=== PATIENT | male | born 1945 | race Caucasian/White ===

== ENCOUNTER 2020-08-28 15:01 | Emergency (ER) | payer MEDICARE, SELFPAY ==
[2020-08-28 15:01] VITALS: BP 121/73; PULSE 86; RESP 18; TEMP 36.7; O2SAT 97; BMI 25.4
--- NOTE | 2020-08-28 15:16 | EKG12_ITS ---
Test Reason : DIZZY Blood Pressure : / mmHG Vent. Rate : 084 BPM Atrial Rate : 084 BPM P-R Int : 164 ms QRS Dur : 092 ms QT Int : 370 ms P-R-T Axes : 046 005 030 degrees QTc Int : 437 ms Normal sinus rhythm Normal ECG Confirmed by FIDELIA ALFONSO, LISHA ([id number]), supervising editor trailer HI GRANT ([id number]) on 08/30/2020 12:45:21 PM Referred By: KATI Confirmed By:LISHA MISTRY MD
--- NOTE | 2020-08-28 15:17 | ED.DCSUM_ITS ---
- ER Visit Summary Date of Service: 08/28/20 Chief Complaint: Dizziness History of Present Illness: The patient is a 75 M who presents with dizziness that began today. Patient states he was cleaning around the house when he felt like he needed to sit down. Patient states he sat down and felt clammy and ti red. Patient also admits to some nausea. Patient states he felt lightheaded like he was going to pass out. Patient states nothing makes it worse and nothing makes it better. Patient denies any tinnitus. Patient denies any ear pain. Patient admits to a slight frontal headache. Patient also states he was started on new medicine yesterday for BPH. Patient states he took his first dose last night. Physical Examination: Vital signs are stable. Patient is afebrile. Patient is in no acute distress. Oral mucosa is pink and moist. Neck is supple. Trachea is midline. There is no JVD noted. Heart was regular rate and rhythm. Lungs are clear and equal bilaterally. Abdomen is soft. Bowel sounds are normal. There is no tenderness. There is no rebound or guarding noted. Skin is warm dry. Cranial nerves II through XII are intact. There are no focal motor or sensory deficits noted. [id number]-bk-[id number] was intact. Extremities are intact. There is no calf tenderness or edema. Test Results: EKG was obtained. On my interpretation, it showed a normal sinus rhythm with a rate of 84. CT interval, QRS interval, and QTc intervals were all normal. [place] was normal. There are no acute ST or T wave changes. Portable 1 view chest x-ray was obtained. On my interpretation, lung zimmerman are clear. There is normal cardiac silhouette. Bony thorax is normal. There is no acute process noted. Radiologist also interpreted the x-ray and agrees. CBC is within normal limits. Comprehensive metabolic profile was within normal limits. Troponin was normal. Emergency Department Course and Treatment: Orthostatic vital signs were obtained were within normal limits. Patient is feeling somewhat better on reevaluation. 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 Patient was also advised it could be related to the new BPH medicine he started last night. Patient was instructed to drink plenty of fluids. Patient was instructed to monitor for further dizziness after he continues taking his BPH medicine. Patient was instructed to follow-up with his primary care physician in 5 to 7 days. Patient understood and was agreeable with the plan. All questions were answered. Disposition: Discharge home Impression: 1. Dizziness This note was generated with [employer] dictation software. It may contain incorrect words, spelling, and punctuation that were not noted in review of the chart prior to signing ED Disposition - Plan for ED Patient: Disposition: Home or Assisted Living Diagnosis: Dizziness Instructions: ED Dizziness, Uncertain Cause Referrals: Daniel Naqvi III, MD [Primary Care Provider] - 5-7 Days
--- NOTE | 2020-08-28 15:21 | NURSING ---
NO OLD EKGS
--- NOTE | 2020-08-28 15:28 | RAD_ITS ---
STUDY: X-RAY CHEST REASON FOR EXAM: Male, 75 years old. Dizziness TECHNIQUE: Single AP portable view of the chest. COMPARISON: None. FINDINGS: EKG electrodes are seen. There is elevation of the right hemidiaphragm. Scattered calcified granulomas in the left lung base. There is no demonstrated pleural abnormality. Normal size heart. Normal mediastinum and jordan. Normal visualized pulmonary arteries. There is atherosclerotic tortuosity of the aortic arch and descending thoracic aorta. There are degenerative changes of the visualized thoracic spine. Healed right sided rib fractures. There is no demonstrated abnormality of the visualized soft tissue structures of the upper abdomen. RAD/Chest 1 View (Portable) IMPRESSION: There is elevation of the right hemidiaphragm. The lungs are clear. Electronically Signed: Dominick Morales MD at 15:40 EDT , Service support ,
[2020-08-28 15:35] LABS: Absolute Lymphocyte Count 2.09 X10^3/uL (0.83-4.51); Absolute Neutrophil Count 3.5 X10^3/uL (2.0-7.7); Basophil# 0.02 X10^3/uL; Basophil% 0.3 % (0-1); Eosinophil# 0.03 X10^3/uL; Eosinophils% 0.5 % (0-5); Hemoglobin 14.4 g/dL (13.0-16.5); Lymphocyte # 2.09 X10^3/ul (4.0); Lymphocyte % 34.7 % (19-41); Mean Corp Hgb Conc 33.5 g/dL (32-36); Mean Corpuscular Hgb 30.3 pg (27.0-32.0); Mean Corpuscular Volume 90.5 fL (80-94); Monocyte# 0.41 X10^3/uL; Monocyte% 6.8 % (0-10); NRBC Flagged by Analyzer 0 % (0-5); Neutrophil # 3.45 X10^3/uL (2.7-7.7); Neutrophil % 57.4 % (47-70); Platelet Count 153 K/mm3 (150-450); RBC Distribution Width CV 12.8 % (11.6-14.6); RBC Distribution Width SD 42.4 fl (35.1-43.9); Red Blood Count 4.75 M/mm3 (4.6-6.2)
[2020-08-28 15:40] VITALS: BP 112/70; BP 119/63; BP 126/71; PULSE 84; PULSE 88; PULSE 89
[2020-08-28 15:59] LABS: ALB/GLOB Ratio 1.5 RATIO (0.9-2.4); AST(SGOT) 22 U/L (15-37); Alanine Aminotransfer ALT/SGPT 32 U/L (16-61); Albumin, Serum 3.8 g/dL (3.2-5.0); Alkaline Phosphatase 145 U/L (45-117); Anion Gap 4 (5-15); BUN 15 mg/dL (7-18); BUN/Creat Ratio 17.5 RATIO (10-20); Calcium,Total 8.8 mg/dL (8.5-10.1); Chloride 104 mmol/L (98-107); Creatinine, Serum 0.86 mg/dL (0.70-1.30); EST Glomerular Filtration Rate 92 mL/min (>60); Est Glom Filt Rate - Afr Amer 112 mL/min (>60); Estimated Creatinine Clearance 73.07 ml/min; Globulin 2.5 g/dL (2.2-4.2); Glucose 121 mg/dL (74-106); Protein, Total 6.3 g/dL (6.4-8.2); Sodium Level 134 mmol/L (136-145)
[2020-08-28 16:38] VITALS: BP 120/3; PULSE 87; RESP 15; O2SAT 98
== END 2020-08-28 16:39 | disposition home or self-care (01) ==
PROVIDERS: Emergency Provider Emergency Medicine; PCP Family Medicine
DX: R42 Dizziness and giddiness (principal); R11.0 Nausea; R51.9 Headache, unspecified; R53.1 Weakness; N40.0 Benign prostatic hyperplasia without lower urinary tract symptoms; I10 Essential (primary) hypertension; F32.9 Major depressive disorder, single episode, unspecified; J45.909 Unspecified asthma, uncomplicated; Z87.19 Personal history of other diseases of the digestive system; Z79.899 Other long term (current) drug therapy
CPT/HCPCS: 71045; 80053; 84484; 85025; 93005; 99285; A4216

== ENCOUNTER → 2020-11-15 11:04 | Outpatient (CLI) | payer MEDICARE, SELFPAY ==
[2020-11-15 12:17] LABS: Absolute Lymphocyte Count 2.88 X10^3/uL (0.83-4.51); Absolute Neutrophil Count 4.3 X10^3/uL (2.0-7.7); Basophil# 0.02 X10^3/uL; Basophil% 0.3 % (0-1); Eosinophil# 0.06 X10^3/uL; Eosinophils% 0.8 % (0-5); Hematocrit 49.2 % (40-54); Hemoglobin 16.5 g/dL (13.0-16.5); Lymphocyte # 2.88 X10^3/ul (0.83-4.51); Mean Corp Hgb Conc 33.5 g/dL (32-36); Mean Corpuscular Hgb 30.7 pg (27.0-32.0); Mean Corpuscular Volume 91.6 fL (80-94); Mean Platelet Vol. 10.7 fl (6.2-12.0); Monocyte# 0.48 X10^3/uL; Monocyte% 6.2 % (0-10); NRBC Flagged by Analyzer 0 % (0-5); Neutrophil # 4.32 X10^3/uL (2.7-7.7); Neutrophil % 55.4 % (47-70); Platelet Count 144 K/mm3 (150-450); RBC Distribution Width CV 13.1 % (11.6-14.6); RBC Distribution Width SD 44.1 fl (35.1-43.9); Red Blood Count 5.37 M/mm3 (4.6-6.2); White Blood Count 7.8 K/mm3 (4.4-11.0)
[2020-11-15 12:36] LABS: International Normalized Ratio 1.1; Partial Thromboplast Time 25.7 Seconds (24.1-36.2); Prothrombin Time (Protime)PT. 13.4 SECONDS (11.7-14.9)
[2020-11-15 13:25] LABS: ALB/GLOB Ratio 1.5 RATIO (0.9-2.4); AST(SGOT) 36 U/L (15-37); Alanine Aminotransfer ALT/SGPT 34 U/L (16-61); Alkaline Phosphatase 117 U/L (45-117); Anion Gap 7 (5-15); BUN 15 mg/dL (7-18); Calcium,Total 8.7 mg/dL (8.5-10.1); Chloride 107 mmol/L (98-107); Creatinine, Serum 0.79 mg/dL (0.70-1.30); EST Glomerular Filtration Rate 101 mL/min (>60); Est Glom Filt Rate - Afr Amer 122 mL/min (>60); Globulin 2.7 g/dL (2.2-4.2); Glucose 82 mg/dL (74-106); Protein, Total 6.7 g/dL (6.4-8.2); Sodium Level 141 mmol/L (136-145)
== END ==
PROVIDERS: PCP Family Medicine; Referring Provider Physician Assistant; Visit Provider Physician Assistant
DX: R23.3 Spontaneous ecchymoses (principal); L82.1 Other seborrheic keratosis; D22.5 Melanocytic nevi of trunk; L81.4 Other melanin hyperpigmentation; Z08 Encounter for follow-up examination after completed treatment for malignant neoplasm; Z85.828 Personal history of other malignant neoplasm of skin; D18.01 Hemangioma of skin and subcutaneous tissue; L57.8 Other skin changes due to chronic exposure to nonionizing radiation; Z71.89 Other specified counseling; L57.0 Actinic keratosis
CPT/HCPCS: 36415; 80053; 85025; 85610; 85730

== ENCOUNTER 2021-06-14 11:55 | Emergency (ER) | payer MEDICARE, SELFPAY ==
[2021-06-14 11:56] VITALS: BP 148/81; PULSE 90; RESP 14; TEMP 36.4; O2SAT 97; BMI 27.1
--- NOTE | 2021-06-14 12:10 | RAD_ITS ---
STUDY: X-RAY CHEST REASON FOR EXAM: Male, 76 years old. covid 19 TECHNIQUE: AP COMPARISON: 08/28/2020 FINDINGS: Elevated right hemidiaphragm. No airspace consolidation. There is no demonstrated pleural abnormality. Normal size heart. Normal mediastinum and jordan. Normal visualized pulmonary arteries. There is atherosclerotic tortuosity of the aortic arch and descending thoracic aorta. Normal visualized thoracic spine. Normal visualized ribs, clavicles, and shoulders. There is no demonstrated abnormality of the visualized soft tissue structures of the upper abdomen. RAD/Chest 1 View (Portable) IMPRESSION: No airspace consolidation or pleural effusion. Electronically Signed: Tim Caba MD ([place]) at 13:00 EST , Service support ,
--- NOTE | 2021-06-14 12:11 | EDS_ITS ---
HPI History of Present Illness Chief Complaint: Cough Informant: patient and spouse/S.O. Narrative Narrative: 76-year-old male states that he is on about day 6 of COVID-19 symptoms. He tested +4 days ago via home test. He states that he had been doing okay some mild symptoms of cough shortness of breath and rhinorrhea. Today he had coughing fit which she could not get to calm down. He is vaccinated and boosters. No fevers. He has been eating and drinking. PFSH PFS Medical History GERD (gastroesophageal reflux disease) Hypertension Home Medications maprotiline 100 mg PO DAILY 04/19/13 [History Last Taken 04/18/13] polyethylene glycol 3350 17 g PO DAILY 04/19/13 [History Last Taken 04/19/13 07:00] lisinopril 5 mg PO DAILY 08/28/20 [History Last Taken Unknown] omeprazole 10 mg PO DAILY 08/28/20 [History Last Taken Unknown] sucralfate 1 gm PO TID 08/28/20 [History Last Taken Unknown] benzonatate 200 mg PO TID PRN #20 cap 06/14/21 [Rx Last Taken Unknown] Allergy/AdvReac Type Severity Reaction Status Date / Time No Known Allergies Allergy Verified 06/14/21 11:58 Social History Smoking Status: Former smoker ROS ROS ED Constitutional Constitutional ED: Denies chills, fever(s) or weight loss Eyes Eyes: Denies change in vision or diplopia ENT ENT ED: Reports rhinorrhea; Denies ear pain or sore throat Cardiovascular Cardiovascular: Denies chest pain, orthopnea, palpitations or racing heartbeat Respiratory/Chest Respiratory/Chest: Reports cough and dyspnea; Denies orthopnea Gastrointestinal Gastrointestinal: Denies abdominal pain, diarrhea, nausea or vomiting Genitourinary Genitourinary ED: Denies dysuria, hematuria or urinary frequency Musculoskeletal Musculoskeletal: Denies arthralgias or myalgias Integumentary Denies abscess or rash Neurologic Neurologic: Denies headache(s) or weakness Psychiatric Psychiatric: Denies anxiety, depression, suicidal ideation or suicidal thoughts Endocrine Endocrinology: Denies polydipsia, polyphagia or polyuria Allergic/Immunologic Allergic/Immunologic ED: Denies mouth swelling, tongue swelling or urticaria EXAM Physical Exam Const Vital Signs: 06/14/21 11:56 06/14/21 12:09 Temperature 97.6 F L Temperature Source Temporal Pulse Rate 90 Respiratory Rate 14 Respiratory Effort Normal Non-Labored Blood Pressure 148/81 H Blood Pressure Mean 103 Pulse Ox 97 Oxygen Delivery Method Room Air Positive well nourished and well developed General Appearance ED: well developed HEENT Reports normocephalic, head/scalp atraumatic, TM's clear and moist mucous membranes Negative for trauma Tympanic Membrane ED: Yes TM's clear Eyes PERRL and EOMs intact bilaterally Neck no lymphadenopathy, supple and no JVD Resp normal respiratory effort and clear to auscultation bilaterally Cardio regular rate, regular rhythm and no murmurs GI normal to inspection, nondistended, normoactive bowel sounds and non-tender Palpation: soft Back/Spine no CVA tenderness and normal ROM Extremity normal to inspection General Extremety ED: Negative for edema General Extremity: Negative for edema Neuro oriented x3 and CN's II-XII intact bilaterally Sensorium / Orientation: alert Motor Exam: strength 5/5 throughout Psych mental status grossly normal Mood & Affect: Negative for depressed or tearful Skin no rashes or lesions noted and no wounds MDM MDM MDM Narrative Medical decision making narrative: COVID test is positive. My interpretation of the chest x-ray is no acute process. He does qualify for monoclonal antibody treatment and I can put the referral in. He is not requiring any supplemental oxygen. He can write for [employer]. Return if worsening or concerns Radiography Diagnostic Testing: Clinical Impression(s) from Imaging Studies Chest X-Ray 06/14/21 12:10 IMPRESSION: No airspace consolidation or pleural effusion. Electronically Signed: Tim Caba MD ([place]) at 13:00 EST , Service support , Discharge Plan Triage Chief Complaint: Cough ED Provider: Emeka Fleming Dx/Rx/DC Orders Clinical Impression: COVID-19, Cough Instructions: Coronavirus Disease 2019 (COVID-19): Caring for Yourself or Others Prescriptions: New benzonatate 200 mg capsule 200 mg PO TID PRN (Reason: cough) Qty: 20 RF: 0 No Action polyethylene glycol 3350 17 GM powder in packet 17 g PO DAILY RF: 0 maprotiline 50 MG tablet 100 mg PO DAILY RF: 0 omeprazole 10 MG capsule 10 mg PO DAILY RF: 0 lisinopril 5 MG tablet 5 mg PO DAILY RF: 0 sucralfate 1 GM tablet 1 gm PO TID RF: 0 Disposition Disposition: Home, Self Care
== END 2021-06-14 13:07 | disposition home or self-care (01) ==
LOC: ED 13:05
PROVIDERS: Emergency Provider Emergency Medicine; PCP Family Medicine; Visit Provider Emergency Medicine
DX: U07.1 COVID-19 (principal); Z87.891 Personal history of nicotine dependence
CPT/HCPCS: 71045; 87426; 99282

== ENCOUNTER 2021-06-16 18:19 | Outpatient (CLI) | payer MEDICARE, SELFPAY ==
[2021-06-16] MEDS: 0.9% Saline Lock 10 ML Syringe IV (18:23)
[2021-06-16 18:24] VITALS: BP 137/82; PULSE 100; RESP 18; TEMP 37.6; O2SAT 96; BMI 27.0
[2021-06-16 18:56] VITALS: BP 124/68; PULSE 91; RESP 16; TEMP 37.7; O2SAT 95
[2021-06-16 19:47] VITALS: BP 148/78; PULSE 89; RESP 16; TEMP 36.9; O2SAT 97
== END 2021-06-16 23:59 | disposition home or self-care (01) ==
LOC: MS3OUT 18:19 → MS3 18:20
PROVIDERS: PCP Family Medicine; Referring Provider Emergency Medicine; Visit Provider Emergency Medicine
DX: Z23 Encounter for immunization (principal); U07.1 COVID-19
CPT/HCPCS: J7050; M0245; Q0245; A4216

== ENCOUNTER → 2022-05-11 | Outpatient (CLI) | payer MEDICARE, SELFPAY ==
[2022-05-11 09:57] LABS: Erythrocyte Sedimentation Rate 6 mm/hr (0-20)
== END | disposition home or self-care (01) ==
PROVIDERS: PCP Family Medicine; Visit Provider Nurse Practitioner Acute Care
DX: R05.1 Acute cough (principal); R50.9 Fever, unspecified
CPT/HCPCS: 85652

== ENCOUNTER → 2023-03-18 | Outpatient (CLI) | payer MEDICARE, SELFPAY ==
[2023-03-18 16:06] LABS: Absolute Neutrophil Count 4.3 X10^3/uL (2.0-7.7); Basophil# 0.03 X10^3/uL; Basophil% 0.4 % (0-1); Eosinophil# 0.05 X10^3/uL; Eosinophils% 0.6 % (0-5); Hematocrit 48.3 % (40-54); Hemoglobin 16.3 g/dL (13.0-16.5); Lymphocyte % 40.7 % (19-41); Mean Corp Hgb Conc 33.7 g/dL (32-36); Mean Corpuscular Hgb 30.4 pg (27.0-32.0); Mean Corpuscular Volume 90.1 fL (80-94); Mean Platelet Vol. 8.9 fl (6.2-12.0); Monocyte# 0.53 X10^3/uL; Monocyte% 6.3 % (0-10); NRBC Flagged by Analyzer 0 % (0-5); Neutrophil # 4.32 X10^3/uL (2.7-7.7); Neutrophil % 51.6 % (47-70); Platelet Count 159 K/mm3 (150-450); RBC Distribution Width CV 13.2 % (11.6-14.6); Red Blood Count 5.36 M/mm3 (4.6-6.2); White Blood Count 8.4 K/mm3 (4.4-11.0)
[2023-03-18 16:53] LABS: ALB/GLOB Ratio 1.2 RATIO (0.9-2.4); AST(SGOT) 21 U/L (15-37); Alanine Aminotransfer ALT/SGPT 32 U/L (16-61); Albumin, Serum 3.8 g/dL (3.2-5.0); Alkaline Phosphatase 111 U/L (45-117); Anion Gap 6 (5-15); BUN 18 mg/dL (7-18); BUN/Creat Ratio 19.2 RATIO (10-20); Calcium,Total 8.8 mg/dL (8.5-10.1); Chloride 111 mmol/L (98-107); Creatinine, Serum 0.94 mg/dL (0.70-1.30); EST Glomerular Filtration Rate 82 mL/min (>60); Est Glom Filt Rate - Afr Amer 100 mL/min (>60); Globulin 3.2 g/dL (2.2-4.2); Glucose 102 mg/dL (74-106); Potassium 4.2 mmol/L (3.5-5.1); Sodium Level 141 mmol/L (136-145); Thyroid Stim Hormone (TSH) 0.99 uIU/mL (0.358-3.74)
[2023-03-19 08:01] LABS: Hepatitis C Antibody Non-Reactive (Nonreactive); Vitamin B12 466 pg/mL (211-911); Vitamin D,25 Hydroxy 21.7 ng/mL
== END | disposition home or self-care (01) ==
LOC: POLAB3 15:46
PROVIDERS: PCP Family Medicine; Visit Provider Family Medicine Geriatric Medicine
DX: I10 Essential (primary) hypertension (principal); Z13.89 Encounter for screening for other disorder; E55.9 Vitamin D deficiency, unspecified
CPT/HCPCS: 36415; 80053; 82306; 82607; 82746; 84443; 85025; 86803

== ENCOUNTER → 2023-04-05 | Outpatient (CLI) | payer MEDICARE, SELFPAY ==
--- NOTE | 2023-04-05 08:44 | AAAS_ITS ---
Reason For Study: AAA Screening Aorta Measurements Aorta Doppler Measurements Proximal aorta measures2.08 x 2.17cm. in cross- Peak systolic flow velocities within the proximal sectional axis. aorta measure 83.2 cm/sec. Proximal aorta measures2.01cm. in longitudinal Peak systolic flow velocities within the mid aorta axis. measure 85.0 cm/sec. Mid aorta measures2.02 x 2.12cm. in cross- Peak systolic flow velocities within the distal sectional axis. aorta measure 53.7 cm/sec. Mid aorta measures2.00cm. in longitudinal axis. Distal aorta measures1.83 x 1.79cm. in cross- sectional axis. Distal aorta measures1.83cm. in longitudinal axis. Left Iliac Artery Left iliac artery measures 1.38 x 1.35 cm. in the cross-sectional axis. Left iliac artery measures 1.34 cm. in the longitudinal axis. Peak systolic velocity in the left iliac artery measures 60.4 cm/sec. Right Iliac Artery Right iliac artery measures 1.36 x 1.40 cm. in the cross-sectional axis. Right iliac artery measures 1.31 cm. in the longitudinal axis. Peak systolic velocity in the right iliac artery measures 62.9 cm/sec. VL/AAA Screening Interpretation Summary Maximal aortic diameter approximately at 2.08 x 2.17 cm in diameter which is no rmal. Left common iliac artery measures 1.38 x 1.35 cm in diameter, correlates with m ild ectasia Right common iliac artery measures 1.36 x 1.4 cm in diameter, correlates with m ild ectasia Ordering Physician: Tre García Chi Referring Physician: Tre García Chi Performed By: Yung Cox RVEnedina
== END | disposition home or self-care (01) ==
LOC: CVS 08:44
PROVIDERS: PCP Family Medicine; Referring Provider Family Medicine Geriatric Medicine; Visit Provider Family Medicine Geriatric Medicine
DX: Z00.00 Encounter for general adult medical examination without abnormal findings (principal)
CPT/HCPCS: 76706

== ENCOUNTER → 2023-04-08 | Outpatient (CLI) | payer MEDICARE, SELFPAY | END | disposition home or self-care (01) | PROVIDERS: PCP Family Medicine Geriatric Medicine; Referring Provider Family Medicine Geriatric Medicine; Visit Provider Family Medicine Geriatric Medicine | DX: R68.83 Chills (without fever) (principal) | CPT/HCPCS: 87635; 87804; 87807; C9803 ==

== ENCOUNTER → 2023-06-02 | Outpatient (CLI) | payer MEDICARE, SELFPAY ==
[2023-06-02 12:57] LABS: BNP,B-Type NATRIURETIC PEPTIDE 40.9 pg/mL (0-100)
--- OUTSIDE RECORDS SUMMARY | 2023-06-02 13:04 | XMS RPT_ITS | CCD ---
Author Name Unknown Address [address] [place] [address] Organization [facility] Care Team Providers Care Switchboard Wirer Name Role Phone Binu Bellamy MD Primary Care Provider BINU BELLAMY Primary Care Unavailable BINU BELLAMY Primary Care Unavailable BINU BELLAMY Primary Care Unavailable EFREN PLUMMER Referring Unavailable BINU BELLAMY Primary Care Unavailable JESSICA BARRAZA Attending Unavailable BINU BELLAMY Primary Care Unavailable ELDERBINU BRASHER Attending Unavailable JANAECKBINU Primary Care Unavailable SRIBECKY Attending Unavailable JANAECKBINU Primary Care Unavailable BECKY FIERRO Attending Unavailable BINU BELLAMY Primary Care Unavailable SRIBECKY Referring Unavailable ELDERBROCKBINU Primary Care Unavailable SRIBECKY Referring Unavailable ELDERBROCK, BINU Olmedo Primary Care Unavailable ELDERBROCKBINU Referring Unavailable ELDERBROCK, BINU Olmedo Primary Care Unavailable ELDERBROCKBINU Primary Care Unavailable CUCO MATHIS Referring Unavailable ELDERBROCK, BINU Olmedo Primary Care Unavailable ELDERBROCKBINU Attending Unavailable ELDERBROCKBINU Primary Care Unavailable ELDERBROCKBINU Referring Unavailable ELDERBROCK, BINU Shara Primary Care Unavailable ELDERBROCK, BINU Olmedo Referring Unavailable ELDERBROCK, BINU Shara Primary Care Unavailable ELDERBROCKBINU Attending Unavailable BINU BELLAMY Primary Care Unavailable BECKY FIERRO Attending Unavailable BINU BELLAMY Primary Care Unavailable SRIBECKY Referring Unavailable ELDERBROCKBINU Primary Care Unavailable SRIBECKY Referring Unavailable ELDERBROCK, BINU Olmedo Primary Care Unavailable EFREN PLUMMER Referring Unavailable ELDERTEDDYCKBINU Primary Care Unavailable JESSICA BARRAZA Attending Unavailable BINU BELLAMY Primary Care Unavailable JESSICA BARRAZA Referring Unavailable BINU BELLAMY Primary Care Unavailable GENIE PONCE Attending Unavailable BINU BELLAMY Primary Care Unavailable BINU BELLAMY Referring Unavailable BINU BELLAMY Primary Care Unavailable BINU BELLAMY Referring Unavailable Binu Bellamy MD Primary Care Provider [phone] Allergies Allergy Classification Reported Allergen(s) Allergy Type Date of Onset Reaction(s) Facility (20 sources) environmental [Other] Propensity to adverse reactions 5 Intolerance [facility] (1 source) OTHER; Translations: [OTHER] Propensity to adverse reactions (disorder) 5 [facility] Repository Medications Current Medications Medication Drug Class(es) Dates Sig (Normalized) Sig (Original) amoxicillin 875 mg / clavulanate 125 mg oral tablet (2 sources) Penicillin-class Antibacterial Start: 02-15-2022 End: 02-20-2022 take 1 tablet by mouth twice daily amoxicillin-clav ulanic acid (AUGMENTIN) 875-125 mg per tablet Take 1 tablet by mouth twice daily for 5 days. 10 tablet 0 02/15/2022 02/20/2022 Active Completed/Discontinued Medications Medication Drug Class(es) Dates Sig (Normalized) Sig (Original) [id number] 200 actuat albuterol 0.09 mg/actuat metered dose inhaler (20 sources) beta2-Adrenergic Agonist Start: 09-18-2022 take 2 puff(s) by inhalation every four hours as needed for wheezing albuterol HFA (PROVENTIL HFA, VENTOLIN HFA) 90 mcg/actuation inhaler Inhale 2 Puffs as instructed every 4 hours as needed for wheezing/shortnes s of breath. 3 Each 3 09/18/2022 Active Problems Active Problems Problem Classification Problem Date Documented Date Episodic/Chronic Adjustment disorders (20 sources) Adjustment disorder with depressed mood; Translations: [Adjustment disorder with depressed mood] Onset: 08-28-2008 08-28-2008 Chronic Anxiety disorders (20 sources) Anxiety; Translations: [Anxiety disorder, unspecified] Onset: 01-15-2015 01-15-2015 Chronic Asthma (20 sources) Cough variant asthma; Translations: [Cough variant asthma] Onset: 05-13-2022 Chronic Chronic obstructive pulmonary disease and bronchiectasis (1 source) Bronchitis; Translations: [Bronchitis, not specified as acute or chronic] Episodic Coagulation and hemorrhagic disorders (4 sources) Platelet disorder; 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] Onset: 09-08-2022 Chronic Esophageal disorders (1 source) Gastroesophageal reflux disease; Translations: [Gastro-esophageal reflux disease without esophagitis] 01-21-2023 Chronic Essential hypertension (20 sources) Benign essential hypertension; Translations: [Essential (primary) hypertension] Onset: 01-04-2023 03-05-2021 Chronic Hyperplasia of prostate (20 sources) Benign prostatic hyperplasia; Translations: [Benign prostatic hyperplasia with lower urinary tract symptoms] Onset: 07-05-2007 06-25-2015 Chronic Immunizations and screening for infectious disease (1 source) Patient encounter status; Translations: [Encounter for screening for other viral diseases] Episodic Malaise and fatigue (2 sources) Fatigue; Translations: [Other fatigue] Episodic Mood disorders (20 sources) Recurrent major depression in full remission; Translations: [Major depressive disorder, recurrent, in full remission] Onset: 06-25-2021 Chronic Other congenital anomalies (2 sources) Congenital eventration of diaphragm; 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 Other connective tissue disease (1 source) Musculoskeletal pain; Translations: [Myalgia, other site] Episodic Other infections; including parasitic (3 sources) Personal history of other infectious and parasitic diseases; Translations: [History of COVID-19] Episodic Other lower respiratory disease (3 sources) Cough; Translations: [Acute cough] Episodic Other lower respiratory disease (12 sources) Dyspnea; Translations: [Shortness of breath] Episodic Other lower respiratory disease (1 source) Rib pain; Translations: [Pleurodynia] Episodic Other lower respiratory disease (1 source) Dyspnea on exertion; Translations: [Other forms of dyspnea] 03-01-2023 Episodic Other lower respiratory disease (1 source) Other forms of dyspnea; Translations: [PERSON (dyspnea on exertion)] Onset: 03-01-2023 Episodic Other upper respiratory disease (1 source) Chronic rhinitis; Translations: [Unspecified sinusitis (chronic)] Chronic Other upper respiratory infections (1 source) Acute upper respiratory infection; Translations: [Acute upper respiratory infection, unspecified] Episodic Residual codes; unclassified (1 source) Other specified personal risk factors, not elsewhere classified; Translations: [Other specified personal history presenting hazards to health] Episodic Spondylosis; intervertebral disc disorders; other back problems (20 sources) Lumbar discogenic pain; Translations: [Other intervertebral disc displacement, lumbar region] Onset: 06-05-2010 06-05-2010 Chronic Unclassified (1 source) Acute cough; Translations: [Acute cough] Onset: 05-11-2022 Viral infection (2 sources) Viral disease; Translations: [Viral infection, unspecified] Episodic Past or Other Problems Problem Classification Problem Date Documented Da te Episodic/Chronic Allergic reactions (20 sources) Eczema; Translations: [Dermatitis, unspecified] Onset: 06-09-2011 06-09-2011 Episodic Diabetes mellitus without complication (2 sources) Increased glucose level; Translations: [Other abnormal glucose] Onset: 09-08-2022 Episodic Fever of unknown origin (1 source) Fever, unspecified; Translations: [Fever, unspecified fever cause] Onset: 05-11-2022 Episodic Hemorrhoids (20 sources) Internal hemorrhoids; Translations: [Other hemorrhoids] Onset: 01-11-2018 01-11-2018 Episodic Other lower respiratory disease (1 source) Shortness of breath; Translations: [SOB (shortness of breath)] Onset: 12-21-2022 Episodic Other non-epithelial cancer of skin (20 sources) History of malignant neoplasm of skin; Translations: [Personal history of other malignant neoplasm of skin] Onset: 07-16-2009 07-16-2009 Episodic Other upper respiratory disease (8 sources) Vocal cord dysfunction; Translations: [Other diseases of vocal cords] Onset: 2016 2016 Episodic Results Test Name Value Interpretation Reference Range Facil ity Vital Signs Date Time Vital Sign Value Performing Clinician Faci lity 04-19-2023 10:57-0500 Body height 170.6 cm Pulm Wstr Work Phone: [facility] 03-09-2023 09:35-0400 Body weight 88.95 kg Binu Bellamy MD Work Phone: [facility] 03-09-2023 09:35-0400 Diastolic blood pressure 78 mm[Hg] Binu Bellamy MD Work Phone: [facility] 03-09-2023 09:35-0400 Heart rate 88 /min Binu Bellamy MD Work Phone: [facility] 03-09-2023 09:35-0400 Respiratory rate 16 /min Binu Bellamy MD Work Phone: [facility] 03-09-2023 09:35-0400 Systolic blood pressure 120 mm[Hg] Binu Bellamy MD Work Phone: [facility] 01-21-2023 09:19-0400 Body height 175.3 cm Becky Sri PA-C Work Phone: [facility] 01-21-2023 09:190400 Body weight 89.18 kg Becky Sri PA-C Work Phone: [facility] 01-21-2023 09:19-0400 Diastolic blood pressure 70 mm[Hg] Becky Sri PA-C Work Phone: [facility] 01-21-2023 09:19-0400 Heart rate 90 /min Ebcky Sri PA-C Work Phone: [facility] 01-21-2023 09:19-0400 Respiratory rate 14 /min Becky Sri PA-C Work Phone: [facility] 01-21-2023 09:19-0400 SaO2% (BldA) [Mass fraction] 94 % Becky Sri PA-C Work Phone: [facility] 01-21-2023 09:19-0400 Systolic blood pressure 116 mm[Hg] Becky Sri PA-C Work Phone: [facility] 12-10-2022 08:43-0400 Body weight 88.91 kg Becky Sri PA-C Work Phone: [facility] 09-08-2022 09:14-0400 Body weight 87.09 kg Binu Bellamy MD Work Phone: [facility] 09-08-2022 09:14-0400 Diastolic blood pressure 78 mm[Hg] Binu Bellamy MD Work Phone: [facility] 09-08-2022 09:14-0400 Heart rate 68 /min Binu Bellamy MD Work Phone: [facility] 09-08-2022 09:14-0400 Respiratory rate 16 /min Binu Bellamy MD Work Phone: [facility] 09-08-2022 09:14-0400 Systolic blood pressure 120 mm[Hg] Binu Bellamy MD Work Phone: [facility] 08-19-2022 09:02-0400 Body temperature 96.91 [degF] Cuco Mathis [employer] BU[employer]ER.GLOBAL SECURITY ARCHITECT Work Phone: [facility] 08-19-2022 09:02-0400 Body weight 88.91 kg Cuco Mathis [employer] BUYER.GLOBAL SECURITY ARCHITECT Work Phone: [facility] 08-19-2022 09:02-0400 Diastolic blood pressure 76 mm[Hg] Cuco Mathis [employer] BUYER.GLOBAL SECURITY ARCHITECT Work Phone: [facility] 08-19-2022 09:02-0400 Heart rate 118 /min Cuco Mathis [employer] BUYER.GLOBAL SECURITY ARCHITECT Work Phone: [facility] 08-19-2022 09:02-0400 Respiratory rate 18 /min Cuco Mathis [employer] BUYER.GLOBAL SECURITY ARCHITECT Work Phone: [facility] 08-19-2022 09:02-0400 SaO2% (BldA) [Mass fraction] 94 % Cuco Mathis APRN.GLOBAL SECURITY ARCHITECT Work Phone: [facility] 08-19-2022 09:02-0400 Systolic blood pressure 124 mm[Hg] Cuco Mathis APRN.GLOBAL SECURITY ARCHITECT Work Phone: [facility] 07-09-2022 10:16-0500 Body weight 89.36 kg Genie Ponce MD Work Phone: [facility] 07-09-2022 10:16-0500 Diastolic blood pressure 65 mm[Hg] Genie Ponce MD Work Phone: [facility] 07-09-2022 10:16-0500 Heart rate 92 /min Genie Ponce MD Work Phone: [facility] 07-09-2022 10:16-0500 SaO2% (BldA) [Mass fraction] 94 % Genie Ponce MD Work Phone: [facility] 07-09-2022 10:16-0500 Systolic blood pressure 126 mm[Hg] Genie Ponce MD Work Phone: [facility] 05-13-2022 08:47-0500 Body weight 88.45 kg Jessica Barraza [employer] BUYER.GLOBAL SECURITY ARCHITECT Work Phone: [facility] 05-13-2022 08:47-0500 Diastolic blood pressure 70 mm[Hg] Jessica Alvarezhof [employer] BUYER.GLOBAL SECURITY ARCHITECT Work Phone: [facility] 05-13-2022 08:47-0500 Heart rate 98 /min Jessica Alvarezhof [employer] BUYER.GLOBAL SECURITY ARCHITECT Work Phone: [facility] 05-13-2022 08:47-0500 Respiratory rate 16 /min Jessica Alvarezhof [employer] BUYER.GLOBAL SECURITY ARCHITECT Work Phone: [facility] 05-13-2022 08:47-0500 SaO2% (BldA) [Mass fraction] 97 % Jessica Alvarezhof [employer] BUYER.GLOBAL SECURITY ARCHITECT Work Phone: [facility] 05-13-2022 08:47-0500 Systolic blood pressure 114 mm[Hg] Jessica Alvarezhof [employer] BUYER.GLOBAL SECURITY ARCHITECT Work Phone: [facility] 05-10-2022 09:30-0500 Body temperature 98.29 [degF] Efren Plummer [employer] BUYER.GLOBAL SECURITY ARCHITECT Work Phone: [facility] 05-10-2022 09:30-0500 Body weight 88.45 kg Efren Plummer [employer] BUYER.GLOBAL SECURITY ARCHITECT Work Phone: [facility] 05-10-2022 09:30-0500 Diastolic blood pressure 78 mm[Hg] Efren Plummer [employer] BUYER.GLOBAL SECURITY ARCHITECT Work Phone: [facility] 05-10-2022 09:30-0500 Heart rate 108 /min Efren Plummer [employer] BUYER.GLOBAL SECURITY ARCHITECT Work Phone: [facility] 05-10-2022 09:30-0500 Respiratory rate 18 /min Efren Plummer [employer] BUYER.GLOBAL SECURITY ARCHITECT Work Phone: [facility] 05-10-2022 09:30-0500 SaO2% (BldA) [Mass fraction] 95 % Efren Plummer [employer] BUYER.GLOBAL SECURITY ARCHITECT Work Phone: [facility] 05-10-2022 09:30-0500 Systolic blood pressure 124 mm[Hg] Efren Plummer [employer] BUYER.GLOBAL SECURITY ARCHITECT Work Phone: [facility] 05-03-2022 12:22-0500 Body temperature 97.2 [degF] Camila James [employer] BUYER.GLOBAL SECURITY ARCHITECT Work Phone: [facility] 05-03-2022 12:22-0500 Body weight 79.56 kg Camila Comer [employer] BUYER.GLOBAL SECURITY ARCHITECT Work Phone: [facility] 05-03-2022 12:22-0500 Diastolic blood pressure 76 mm[Hg] Camila Comer [employer] BUYER.GLOBAL SECURITY ARCHITECT Work Phone: [facility] 05-03-2022 12:22-0500 Heart rate 88 /min Camila Comer [employer] BUYER.GLOBAL SECURITY ARCHITECT Work Phone: [facility] 05-03-2022 12:22-0500 Respiratory rate 16 /min Camila oCmer [employer] WAY BUYER.GLOBAL SECURITY ARCHITECT Work Phone: [facility] 05-03-2022 12:22-0500 SaO2% (BldA) [Mass fraction] 95 % Camila Comer [employer] BUYER.GLOBAL SECURITY ARCHITECT Work Phone: [facility] 05-03-2022 12:22-0500 Systolic blood pressure 130 mm[Hg] Camila Comer [employer] BUYER.GLOBAL SECURITY ARCHITECT Work Phone: [facility] 04-10-2022 08:50-0500 Body weight 88 kg Becky Fierro PA-C Work Phone: [facility] 03-11-2022 13:14-0400 Body weight 88.36 kg Binu Bellamy MD Work Phone: [facility] 03-11-2022 13:14-0400 Diastolic blood pressure 72 mm[Hg] Binu Bellamy MD Work Phone: [facility] 03-11-2022 13:14-0400 Heart rate 80 /min Binu Bellamy MD Work Phone: [facility] 03-11-2022 13:14-0400 Respiratory rate 16 /min Binu Bellamy MD Work Phone: [facility] 03-11-2022 13:14-0400 SaO2% (BldA) [Mass fraction] 95 % Binu Bellamy MD Work Phone: [facility] 03-11-2022 13:14-0400 Systolic blood pressure 118 mm[Hg] Binu Bellamy MD Work Phone: [facility] 03-11-2022 09:11-0400 Body height 172.5 cm Respiratory Wstr Work Phone: [facility] 03-11-2022 09:11-0400 Body weight 88 kg Respiratory Wstr Work Phone: [facility] 02-27-2022 13:20-0400 Body weight 87.09 kg Genie Ponce MD Work Phone: [facility] 02-27-2022 13:20-0400 Diastolic blood pressure 78 mm[Hg] Genie Ponce MD Work Phone: [facility] 02-27-2022 13:20-0400 Heart rate 83 /min Genie Ponce MD Work Phone: [facility] 02-27-2022 13:20-0400 Respiratory rate 16 /min Genie Ponce MD Work Phone: [facility] 02-27-2022 13:20-0400 SaO2% (BldA) [Mass fraction] 98 % Genie Ponce MD Work Phone: [facility] 02-27-2022 13:20-0400 Systolic blood pressure 138 mm[Hg] Genie Ponce MD Work Phone: [facility] 02-23-2022 11:31-0400 Body weight 87.09 kg Jessica Alvarezlucian [employer] WAY BUYER.GLOBAL SECURITY ARCHITECT Work Phone: [facility] 02-23-2022 11:31-0400 Diastolic blood pressure 70 mm[Hg] Jessica Antoniohof [employer] BUYER.GLOBAL SECURITY ARCHITECT Work Phone: [facility] 02-23-2022 11:31-0400 Heart rate 94 /min Jessica Alvarezhof [employer] BUYER.GLOBAL SECURITY ARCHITECT Work Phone: [facility] 02-23-2022 11:31-0400 Respiratory rate 16 /min Jessica Alvarezhof [employer] WAY BUYER.GLOBAL SECURITY ARCHITECT Work Phone: [facility] 02-23-2022 11:31-0400 SaO2% (BldA) [Mass fraction] 90 % Jessica Alvarezhof [employer] BUYER.GLOBAL SECURITY ARCHITECT Work Phone: [facility] 02-23-2022 11:31-0400 Systolic blood pressure 110 mm[Hg] Jessica Antoniohof [employer] WAY BUYER.GLOBAL SECURITY ARCHITECT Work Phone: [facility] 02-15-2022 11:10-0400 Body temperature 97.2 [degF] Camila Comer [employer] WAY BUYER.GLOBAL SECURITY ARCHITECT Work Phone: [facility] 02-15-2022 11:10-0400 Body weight 87.09 kg Camila Comer APRN.GLOBAL SECURITY ARCHITECT Work Phone: [facility] 02-15-2022 11:10-0400 Diastolic blood pressure 68 mm[Hg] Camila Comer [employer] WAY BUYER.GLOBAL SECURITY ARCHITECT Work Phone: [facility] 02-15-2022 11:10-0400 Heart rate 95 /min Camila Comer [employer] WAY BUYER.GLOBAL SECURITY ARCHITECT Work Phone: [facility] 02-15-2022 11:10-0400 Respiratory rate 18 /min Camila Comer [employer] WAY BUYER.GLOBAL SECURITY ARCHITECT Work Phone: [facility] 02-15-2022 11:10-0400 SaO2% (BldA) [Mass fraction] 95 % Camila Comer [employer] WAY BUYER.GLOBAL SECURITY ARCHITECT Work Phone: [facility] 02-15-2022 11:10-0400 Systolic blood pressure 106 mm[Hg] Camila Comer [employer] WAY BUYER.GLOBAL SECURITY ARCHITECT Work Phone: [facility] 02-06-2022 09:11-0400 Body weight 88.45 kg Jessicapatel Alvarezhof RIGHT [employer] WAY BUYER.GLOBAL SECURITY ARCHITECT Work Phone: [facility] 02-06-2022 09:11-0400 Diastolic blood pressure 68 mm[Hg] Jessica Tannhof RIGHT [employer] WAY BUYER.GLOBAL SECURITY ARCHITECT Work Phone: [facility] 02-06-2022 09:11-0400 Heart rate 87 /min Jessica Tannhof [employer] WAY BUYER.GLOBAL SECURITY ARCHITECT Work Phone: [facility] 02-06-2022 09:11-0400 Respiratory rate 16 /min Jessica Tannhof [employer] WAY BUYER.GLOBAL SECURITY ARCHITECT Work Phone: [facility] 02-06-2022 09:11-0400 SaO2% (BldA) [Mass fraction] 96 % Jessica Tannhof [employer] WAY BUYER.GLOBAL SECURITY ARCHITECT Work Phone: [facility] 02-06-2022 09:11-0400 Systolic blood pressure 116 mm[Hg] Jessica Tannhof [employer] WAY BUYER.GLOBAL SECURITY ARCHITECT Work Phone: [facility] 12-03-2021 10:25-0400 Body weight 88.45 kg Berkley Ildefonsoguru RIGHT [employer] WAY BUYER.GLOBAL SECURITY ARCHITECT Work Phone: [facility] 12-03-2021 10:25-0400 Diastolic blood pressure 58 mm[Hg] Berkley Rajguru [employer] WAY BUYER.GLOBAL SECURITY ARCHITECT Work Phone: [facility] 12-03-2021 10:25-0400 Systolic blood pressure 122 mm[Hg] Berkley Rajguru [employer] WAY BUYER.GLOBAL SECURITY ARCHITECT Work Phone: [facility] 09-03-2021 12:49-0400 Body weight 86.73 kg Binu Blelamy MD Work Phone: [facility] 09-03-2021 12:49-0400 Diastolic blood pressure 72 mm[Hg] Binu Bellamy MD Work Phone: [facility] 09-03-2021 12:49-0400 Heart rate 68 /min Binu Bellamy MD Work Phone: [facility] 09-03-2021 12:49-0400 Respiratory rate 14 /min Binu Bellamy MD Work Phone: [facility] 09-03-2021 12:49-0400 Systolic blood pressure 120 mm[Hg] Binu Bellamy MD Work Phone: [facility] 08-27-2021 10:53-0400 Body weight 88 kg Berkley Rajguru RIGHT [employer] WAY BUYER.GLOBAL SECURITY ARCHITECT Work Phone: [facility] 08-27-2021 10:53-0400 Diastolic blood pressure 66 mm[Hg] Berkley Rajguru [employer] WAY BUYER.GLOBAL SECURITY ARCHITECT Work Phone: [facility] 08-27-2021 10:53-0400 Heart rate 68 /min Berkley Rajguru [employer] WAY BUYER.GLOBAL SECURITY ARCHITECT Work Phone: [facility] 08-27-2021 10:53-0400 Systolic blood pressure 122 mm[Hg] Berkley Rajguru RIGHT [employer] WAY BUYER.GLOBAL SECURITY ARCHITECT Work Phone: [facility] Encounters Encounter Date Encounter Type Care Provider Facility Start: 05-03-[address] [employer] BUYER.GLOBAL SECURITY ARCHITECT Work Phone: [facility] Procedures Date Procedure Procedure Detail Performing Clinician Start: 04-19-2023 Spmtry w/vc expirato ry lindsay w/wo mxml vol vntj Becky Fierro PA-C Work Phone: Start: 04-19-2023 Unlisted pulmonary service/procedure Becky Fierro PA-C Work Phone: Start: 03-01-2023 Myocardial spect mul tiple studies Binu Bellamy MD Work Phone: Start: 12-10-2022 Nitric oxide gas determination Becky Fierro PA-C Work Phone: Start: 08-19-2022 Radex ribs uni w/pos teroant ch minimum 3 views Cuco Mathis [employer] BUYER.GLOBAL SECURITY ARCHITECT Work Phone: Start: 03-11-2022 Nitric oxide gas determination Genie Ponce MD Work Phone: Start: 03-11-2022 Brncdilat rspse spmt ry pre&post-brncdilat admn Genie Ponce MD Work Phone: Plan of Treatment Date Care Activity Detail Author Start: 03-19-2033 Urine microalbumin profile DTaP,Tdap,Td Vaccine (5 - Td or Tdap) [facility] Start: 10-01-2026 Urine microalbumin profile [facility] Start: 09-08-2025 DIABETES SCREEN DIABETES SCREEN [facility] Start: 09-08-2025 Diabetes Screening Diabetes Screenin g [facility] Start: 05-11-2025 DIABETES SCREEN DIABETES SCREEN [facility] Start: 02-23-2025 DIABETES SCREEN DIABETES SCREEN [facility] Start: 09-04-2024 DIABETES SCREEN DIABETES SCREEN [facility] Start: 04-28-2024 DIABETES SCREEN DIABETES SCREEN [facility] Start: 04-19-2024 BP Controlled (<130/80) BP Con trolled (<130/80) [facility] Start: 03-09-2024 Annual PCP Team Pie Maker santy Disease Visit Annual PCP Team Chronic Disease Visit [facility] Start: 03-09-2024 BP Controlled (<130/80) BP Con trolled (<130/80) [facility] Start: 01-22-2024 BP CONTROLLED (<130/80) BP CON TROLLED (<130/80) [facility] Start: 01-05-2024 ANNUAL PCP TEAM FAMILY SERVICES ASSISTANT SANTY DISEASE VISIT ANNUAL PCP TEAM CHRONIC DISEASE VISIT [facility] Start: 12-11-2023 BP CONTROLLED (<130/80) BP CON TROLLED (<130/80) [facility] Start: 09-09-2023 ANNUAL PCP TEAM FAMILY SERVICES ASSISTANT SANTY DISEASE VISIT ANNUAL PCP TEAM CHRONIC DISEASE VISIT [facility] Start: 09-09-2023 BP CONTROLLED (<130/80) BP CON TROLLED (<130/80) [facility] Start: 09-08-2023 End: 11-08-2023 CBC W Auto Differential panel - Blood CBC + DIFF Lab Routine Essential hypertension, benign Low platelet count (HCC) Expected: 09/08/2023 (Approximate), Expires: 11/08/2023 [facility] Work Phone: Immunizations Immunization Date Immunization Notes Care Provider Fa cili 02-10-2023 influenza (HD-IIV4) vaccine, age 65+ yr, high dose, quadrivalent, PF (FLUZONE HIGH-DOSE) Binu Bellamy MD Work Phone: [facility] 02-10-2023 respiratory syncytia l virus (RSV) vaccine, adjuvanted (AREXVY) Binu Bellamy MD Work Phone: [facility] 03-13-2022 COVID-19 booster vaccine, age 12+ yr, bivalent (PFIZER-BIONTECH) Genie Ponce MD Work Phone: [facility] 03-13-2022 influenza (HD-IIV4) vaccine, age 65+ yr, high dose, quadrivalent, PF (FLUZONE HIGH-DOSE) Binu Bellamy MD Work Phone: [facility] 03-13-2022 influenza, high dose seasonal, preservative-free Genie Ponce MD Work Phone: [facility] 02-18-2021 influenza, high-dose , quadrivalent vaccine (FLUZONE HIGH DOSE QUADRIVALENT) Berkley Roque APRN.GLOBAL SECURITY ARCHITECT Work Phone: [facility] 08-16-2020 COVID-19 vaccine, ag e 12+ yr (PFIZER-BIONTECH - PURPLE TOP) Berkley Roque APRN.GLOBAL SECURITY ARCHITECT Work Phone: [facility] Work Phone: 07-26-2020 COVID-19 vaccine, ag e 12+ yr (PFIZER-BIONTECH - PURPLE TOP) Berkley Roque APRN.GLOBAL SECURITY ARCHITECT Work Phone: [facility] Work Phone: 01-22-2020 influenza, high dose seasonal, preservative-free Berkley Rajguru RIGHT [employer] [address] BUYER.GLOBAL SECURITY ARCHITECT Work Phone: [facility] 02-28-2019 influenza, high dose seasonal, preservative-free Berkley Rajguru [employer] [address] BUYER.GLOBAL SECURITY ARCHITECT Work Phone: [facility] 12-29-2018 zoster vaccine recombinant Berkley Rajguru [employer] BUYER.GLOBAL SECURITY ARCHITECT Work Phone: [facility] 10-28-2018 zoster vaccine recombinant Berkley Rajguru [employer] [address] BUYER.GLOBAL SECURITY ARCHITECT Work Phone: [facility] 03-02-2018 influenza, high dose seasonal, preservative-free Berkley Rajguru [employer] [address] BUYER.GLOBAL SECURITY ARCHITECT Work Phone: [facility] 02-09-2017 influenza, high dose seasonal, preservative-free Berkley Rajguru [employer] [address] BUYER.GLOBAL SECURITY ARCHITECT Work Phone: [facility] 10-01-2016 tetanus and diphther ia toxoids, adsorbed, preservative free, for adult use (5 Lf of tetanus toxoid and 2 Lf of diphtheria toxoid) Berkley Rajguru [employer] [address] BUYER.GLOBAL SECURITY ARCHITECT Work Phone: [facility] 03-17-2016 influenza, high dose seasonal, preservative-free Berkley Rajguru [employer] [address] BUYER.GLOBAL SECURITY ARCHITECT Work Phone: [facility] 06-25-2015 pneumococcal polysaccharide vaccine, 23 valent Berkley Rajguru [employer] [address] BUYER.GLOBAL SECURITY ARCHITECT Work Phone: [facility] 06-12-2014 pneumococcal conjuga te vaccine, 13 valent Berkley Rajguru [employer] [address] BUYER.GLOBAL SECURITY ARCHITECT Work Phone: [facility] 02-27-2014 influenza, seasonal, injectable Berkley Rajguru [employer] [address] BUYER.GLOBAL SECURITY ARCHITECT Work Phone: [facility] 04-20-2013 pneumococcal polysaccharide vaccine, 23 valent Berkley Rajguru [employer] [address] BUYER.GLOBAL SECURITY ARCHITECT Work Phone: [facility] 03-14-2010 influenza virus vacc ine, unspecified formulation Berkley Rajguru [employer] [address] BUYER.GLOBAL SECURITY ARCHITECT Work Phone: [facility] Work Phone: 04-03-2008 influenza virus vacc ine, unspecified formulation Berkley Roque [employer] [facility]YER[facility] Work Phone: [facility] Work Phone: 04-03-2008 pneumococcal polysaccharide vaccine, 23 valent [address]ley Roque [address] [employer] [address] BUYER.GLOBAL SECURITY ARCHITECT Work Phone: [facility] Work Phone: 08-05-2006 tetanus toxoid, redu gentry diphtheria toxoid, and acellular pertussis vaccine, adsorbed Berkleysisi Roque [employer] [address] BUYER[facility] Work Phone: [facility] Work Phone: 11-02-1996 diphtheria and tetan us toxoids, adsorbed for pediatric use Berkley Roque [employer] [address] BUYER[facility] Work Phone: [facility] Work Phone: Payers Date Payer Category Payer Medicare AET MEDICARE A ETNA MEDICARE PPO [id number] 2021-Present [phone] [address] [place] [address] O [id number] 2021 Medicare AETNA MEDICARE A ETNA MEDICARE PPO [id number] 2021-Present [phone] [address] [place] [address] [facility] [id number] 2021 Medicare [id number] Social History Date Type Detail Facility Start: 02-06-2022 Tobacco smoking status NHIS Never smoked tobacco [facility] Work Phone: Start: 08-27-2021 End: 04-19-2023 Alcohol intake Current non-drinker of alcohol (finding) [facility] Start: 05-29-2020 End: 05-12-2022 History SDOH Alcohol Frequency 1 [facility] Start: 05-29-2020 History SDOH Alcohol Std Drinks 98 [facility] Start: 05-29-2020 End: 05-12-2022 History SDOH Social Connections Phone 5 [facility] Start: 05-29-2020 End: 05-12-2022 History SDOH Social Connections [facility] 2 [facility] Start: 05-29-2020 End: 05-12-2022 History SDOH Social Connections Living 3 [facility] Start: 05-29-2020 History SDOH Physical Activity DPW 6 [facility] Start: 05-29-2020 Education 18 [facility] Start: 05-11-2014 End: 02-06-2022 Tobacco Comment Non smoking childhood home. [facility] Start: 1945 Sex Assigned At Male [facility] Start: 08-17-2021 End: 05-03-2022 Exposure to SARS-CoV-2 (event) Not sure [facility] Start: 02-06-2022 Tobacco use and exposure Smokeless tobacco non-user [facility] Start: 05-12-2022 History SDOH Alcohol Std Drinks 0 [facility] Start: 05-11-2022 End: 12-10-2022 History of Social function [facility] Start: 05-11-2022 End: 12-10-2022 Social connection and isolation panel [facility] Do you belong to any clubs or organizations such as zoroastrian groups, unions, fraternal or athletic groups, or school groups? Yes [facility] Are you now , , , , never or living with a partner? [facility] How often to you hav e a drink containing alcohol? Never [facility] How many standard dr inks containing alcohol do you have on a typical day? Patient does not drink [facility] Do you feel stress - tense, restless, nervous, or anxious, or unable to sleep at night because your mind is troubled all the time - these days [OSQ] Only a little [facility] (I/We) worried wheth er (my/our) food would run out before (I/we) got money to buy more. Never true [facility] In the past 12 month s, was there a time when you were not able to pay the mortgage or rent on time? No [facility] Start: 05-12-2019 Gender identity Identifies as male gender (finding) [facility] Start: 01-23-2020 Sexual orientation Heterosexual (finding) [facility] Clinical Notes 02-12-2016 to 05-03-2023 Telephone Encounter - Mayur Kimble APRN.GLOBAL SECURITY ARCHITECT - 05/03/2023 12:05 PM Tawana Young RPFT - 04/19/2023 11:19 AM Binu Aponte MD - 03/09/2023 9:40 AM EDTPatient Instructions Note Date & Type Note Facility 05-03-2023 Miscellaneous Notes The following approved medication requests have been transmitted electronically. Requested Prescriptions Pending Prescriptions Disp Refills lisinopril (ZESTRIL) 5 mg tablet [Pharmacy Med Name: LISINOPRIL TABS 5MG] 90 tablet 3 Sig: take 1 tablet daily Mayur Kimble APRN.GLOBAL SECURITY ARCHITECT documented in this encounter [facility] 04-19-2023 Note HNO ID: [id number] Author: Tawana Moore RPFT Service: ? Author Type: Respiratory Therapist Type: Progress Notes Filed: 04/19/2023 11:20 AM Note Text: PULM FUNCTION SMARTBLOCK: Provider: Becky Fierro PA-C Assisting Tech: Tawana Moore RPFT MIP/MEP: 1 [facility] 04-19-2023 Note HNO ID: [id number] Author: Becky Fierro PA-C Service: ? Author Type: Physician Superintendent Operations Division Type: Progress Notes Filed: 04/19/2023 2:09 PM Note Text: Patient: Valentina Rodríguez PCP: Binu Bellamy MD CC: follow up HPI: Valentina Rodríguez 78 year old male never smoker with PMH significant for GERD, BPH, HTN, allergies previously treated with IT, depression, eventration of diaphragm, and chronic cough. DAMARI negative, referred to Dr. Roca for VCD but was started on ICS by PCP which completely resolved his cough. He was well until he developed COVID in May 2021 which resulted in severe cough and SOB. ICS, oral steroids and antibiotics had not been helpful. Evaluation for VTE negative. Current therapy with Dulera 200 mcg, Singulair and Albuterol. Today, patient reports work of breathing/SOB with minimal effort. Minimal cough, non-productive. No wheezing. No chest pain/tightness or palpitations. Denies allergy symptoms and would like to trial stopping Singulair. No lower extremity edema. Nuclear stress test showed no significant source for SOB. 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 Lumbar discogenic pain syndrome 06/05/2010 Male erectile disorder Other intervertebral disc degeneration, lumbosacral region Overweight Personal history of other malignant neoplasm of skin Personal history of tobacco use Rosacea Unilateral primary osteoarthritis, right knee Allergies: Environmental [Othe* Intolerance mometasone (ASMANEX TWISTHALER) 220 mcg/ actuation (60) aepbInhale 1 Puff as instructed once daily.Disp: 1 EachRfl: 5 omeprazole (PRILOSEC) 40 mg capsuleTake 1 capsule by mouth once daily.Disp: 30 capsuleRfl: 3 albuterol HFA (PROVENTIL HFA, VENTOLIN HFA) 90 mcg/actuation inhalerInhale 2 Puffs as instructed every 4 hours as needed for wheezing/shortness of breath.Disp: 3 EachRfl: 3 montelukast (SINGULAIR) 10 mg tabletTake 1 tablet by mouth daily at bedtime.Disp: 90 tabletRfl: 3 nortriptyline (PAMELOR) 50 mg capsuleTake 1 capsule by mouth twice daily.Disp: 180 capsuleRfl: 3 lisinopril (ZESTRIL, PRINIVIL) 5 mg tabletTake 1 tablet by mouth once daily.Disp: 90 tabletRfl: 3 tamsulosin (FLOMAX) 0.4 mgTAKE 1 CAPSULE DAILY AT BEDTIMEDisp: 90 capsuleRfl: 3 polyethylene glycol 3350 (MIRALAX, GLYCOLAX) 17 gram packetTake 1 Packet by mouth twice daily.Disp: 180 PacketRfl: 3 Social History Tobacco Use Smoking status: Never Smokeless tobacco: Never Tobacco comments: Non smoking childhood home. Vaping Use Vaping Use: Never used Substance Use Topics Alcohol use: No Drug use: No Family History Problem Relation Age of Onset Anxiety disorder Mother Depression Mother Stroke Mother Hypertension Mother Cancer Father pancreatic cancer PAST SURGICAL HISTORY Procedure Laterality Date CATARACT EXTRACTION HX Bilateral 2019 COLONOSCOPY FLX DX W/COLLJ SPEC WHEN PFRMD 09/26/2001 Colonoscopy-repeat in COLONOSCOPY FLX DX W/COLLJ SPEC WHEN PFRMD 11/03/2011 Colonoscopy COLONOSCOPY SCRN NOT HIGH RISK 06/18/2020 EGD 06/18/2020 PAST SURGICAL HISTORY OF 10 yrs ago BCC removed by Dr.Robert Naqvi PAST SURGICAL HISTORY OF 2003 Premalignant lesion on left side nose by Dr.Robert Naqvi SKIN BIOPSY HX SKIN BX, 1 LESION Skin biopsy TONSILLECTOMY AND ADENOIDECTOMY I reviewed the past medical history, family history, social history and surgical history with changes noted above and updated in EMR. IMMUNIZATIONS Prevnar - 06/12/2014 Pneumovax - 06/25/2015, 04/20/2013, 04/03/2008 Influenza - 02/10/2023 COVID-19 - most recent 02/22/2023 RSV - 02/10/2023 ROS: CONSTITUTIONAL: No fevers, chills, nightsweats, unintended weight loss HEENT: Denies allergy symptoms. EYES: No diplopia or blurry vision. CARDIOVASCULAR: No chest pain, palpitations, orthopnea, PND, edema. PULM: See HPI GI: No dysphagia/odynophagia, problematic reflux INTEGUMENTARY: No new skin changes or rashes PHYSICAL EXAMINATION: BP 124/76 Pulse 94 Resp 15 Wt 88.5 kg (195 lb) SpO2 96% BMI 28.80 kg/m? Gen: No acute distress. Cooperative with examination. HEENT: Normocephalic. Sclera, conjunctiva clear. Oral hygeine and dentition good. No thrush. Resp: No stridor, accessory respiratory muscle use, supra-sternal or intercostal retractions. No wheezes, crackles. CV: Regular rythm. Heart tones normal. Radial pulses normal. MSK: No kyphoscoliosis. Ext: War (more content not included)... [facility] 04-19-2023 History of Presen t illness Narrative PULM FUNCTION SMARTBLOCK: Provider: Becky Fierro PA-C Assisting Tech: Tawana Moore RPFT MIP/MEP: 1 documented in this encounter [facility] 03-09-2023 Note HNO ID: [id number] Author: Binu Bellamy MD Service: ? Author Type: Physician Type: Progress Notes Filed: 03/09/2023 9:58 AM Note Text: Chief Complaint Patient presents with: 6 Month Exam HPI Valentina Rodríguez is a 78 year old male who presents here today for 6 month follow up. No bowel, Gi, or urinary issues. Taking Flomax 0.4 mg daily. Also uses Miralax BID. GERD: Taking Prilosec 40 mg daily. Asthma: Follows with Pulmonary Becky Fierro PA-C. Stable with Singulair 10 mg daily, Dulera BID, and prn Albuterol inhaler. Had spirometry testing done in November. HTN: Denies checking BP at home. No chest pains, dizziness. Still having issues with SOB, had stress test done which was normal. Taking Lisinopril 5 mg daily. Depression: Stable, follows with Adult Psych, Berkley Roque. Is on Nortriptyline 50 mg BID. Pt concerned about his platelet count, states he would like to have that rechecked today due to still having issues with bruising. Last checked August 2022 with Platelet count low at 145. Past medical history, appointments, medications, allergies reviewed. 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 Lumbar discogenic pain syndrome 06/05/2010 Male erectile disorder Other intervertebral disc degeneration, lumbosacral region Overweight Personal history of other malignant neoplasm of skin Personal history of tobacco use Rosacea Unilateral primary osteoarthritis, right knee Previous Surgical History PAST SURGICAL HISTORY Procedure Laterality Date CATARACT EXTRACTION HX Bilateral 2019 COLONOSCOPY FLX DX W/COLLJ SPEC WHEN PFRMD 09/26/2001 Colonoscopy-repeat in COLONOSCOPY FLX DX W/COLLJ SPEC WHEN PFRMD 11/03/2011 Colonoscopy COLONOSCOPY SCRN NOT HIGH RISK 06/18/2020 EGD 06/18/2020 PAST SURGICAL HISTORY OF 10 yrs ago BCC removed by Dr.Robert Naqvi PAST SURGICAL HISTORY OF 2003 Premalignant lesion on left side nose by Dr.Robert Naqvi SKIN BIOPSY HX SKIN BX, 1 LESION Skin biopsy TONSILLECTOMY AND ADENOIDECTOMY Family History FAMILY HISTORY Problem Relation Age of Onset Anxiety disorder Mother Depression Mother Stroke Mother Hypertension Mother Cancer Father pancreatic cancer Patient Allergies ALLERGIES Allergen Reactions Environmental [Othe* Intolerance Current Medications Current Outpatient Medications on File Prior to Visit Medication Sig omeprazole (PRILOSEC) 40 mg capsule Take 1 capsule by mouth once daily. mometasone-formoterol (DULERA) 200-5 mcg/actuation inhaler Inhale 2 Puffs as instructed twice daily. albuterol HFA (PROVENTIL HFA, VENTOLIN HFA) 90 mcg/actuation inhaler Inhale 2 Puffs as instructed every 4 hours as needed for wheezing/shortness of breath. montelukast (SINGULAIR) 10 mg tablet Take 1 tablet by mouth daily at bedtime. nortriptyline (PAMELOR) 50 mg capsule Take 1 capsule by mouth twice daily. lisinopril (ZESTRIL, PRINIVIL) 5 mg tablet Take 1 tablet by mouth once daily. tamsulosin (FLOMAX) 0.4 mg TAKE 1 CAPSULE DAILY AT BEDTIME polyethylene glycol 3350 (MIRALAX, GLYCOLAX) 17 gram packet Take 1 Packet by mouth twice daily. Current Facility-Administered Medications on File Prior to Visit Medication perflutren lipid microspheres 1.3 mL in NaCl (PF) 0.9% 10 mL injection (DEFINITY) sodium chloride 0.9 % (flush) 10 mL (BD POSIFLUSH) Social History Social History Tobacco Use Smoking status: Never Smokeless tobacco: Never Tobacco comments: Non smoking childhood home. Vaping Use Vaping Use: Never used Substance Use Topics Alcohol use: No Drug use: No EXAM: BP 120/78 Pulse 88 Resp 16 Wt 89 kg (196 lb 1.6 oz) BMI 28.96 kg/m? General Appearance: Well appearing, alert, in no acute distress, well-hydrated, well nourished.. Lungs: Lungs clear to auscultation. No wheezing, rhonchi, rales.. Heart: RRR without murmur, gallop, or rubs. No ectopy. Health Maintenance List Covid-19 Vaccine(6 - Pfizer series) due on 07/14/2022 Influenza Vaccine(1) due on 01/29/2023 Annual PCP Team Chronic Disease Visit due on 01/05/2024 BP Controlled (<130/80) due on 01/22/2024 Diabetes Screening due on 09/08/2025 DTaP,Tdap,Td Vaccine(4 - Td or Tdap) due on 10/01/2026 Spirometry Completed Advance Directive Discussion Completed Shingrix Vaccine Completed Pneumococcal Vaccine: 65+ Completed Colorectal Cancer Screening Discontinued Data reviewed None ASSESSMENT/PLAN: (more content not included)... [facility] 03-09-2023 History of Presen t illness Narrative Chief Complaint Patient presents with: 6 Month Exam HPI Valentina Rodríguez is a 78 year old male who presents here today for 6 month follow up. No bowel, Gi, or urinary issues. Taking Flomax 0.4 mg daily. Also uses Miralax BID. GERD: Taking Prilosec 40 mg daily. Asthma: Follows with Pulmonary Becky Fierro PA-C. Stable with Singulair 10 mg daily, Dulera BID, and prn Albuterol inhaler. Had spirometry testing done in November. HTN: Denies checking BP at home. No chest pains, dizziness. Still having issues with SOB, had stress test done which was normal. Taking Lisinopril 5 mg daily. Depression: Stable, follows with Adult Psych, Berkley Roque. Is on Nortriptyline 50 mg BID. Pt concerned about his platelet count, states he would like to have that rechecked today due to still having issues with bruising. Last checked August 2022 with Platelet count low at 145. Past medical history, appointments, medications, allergies reviewed. Previous Medical History PAST MEDICAL HISTORY Diagnosis Date Abdominal pain, left lower quadrant Achilles tendinitis 10/04/2012 Adjustment disorder with depressed mood Allergies Chronic low back pain 03/12/2011 Constipation Essential hypertension, benign Family history of ischemic heart disease Family history of mental disorder Family history of stroke GERD without esophagitis Hypertrophy of prostate with urinary obstruction and other lower urinary tract symptoms (LUTS) 07/05/2007 retirement (current) use of inhaled steroids Lumbar discogenic pain syndrome 06/05/2010 Male erectile disorder Other intervertebral disc degeneration, lumbosacral region Overweight Personal history of other malignant neoplasm of skin Personal history of tobacco use Rosacea Unilateral primary osteoarthritis, right knee Previous Surgical History PAST SURGICAL HISTORY Procedure Laterality Date CATARACT EXTRACTION HX Bilateral 2019 COLONOSCOPY FLX DX W/COLLJ SPEC WHEN PFRMD 09/26/2001 Colonoscopy-repeat in COLONOSCOPY FLX DX W/COLLJ SPEC WHEN PFRMD 11/03/2011 Colonoscopy COLONOSCOPY SCRN NOT HIGH RISK 06/18/2020 EGD 06/18/2020 PAST SURGICAL HISTORY OF 10 yrs ago BCC removed by Dr.Robert Naqvi PAST SURGICAL HISTORY OF 2003 Premalignant lesion on left side nose by Dr.Robert Naqvi SKIN BIOPSY HX SKIN BX, 1 LESION Skin biopsy TONSILLECTOMY & ADENOIDECTOMY <AGE 11 Family History FAMILY HISTORY Problem Relation Age of Onset Anxiety disorder Mother Depression Mother Stroke Mother Hypertension Mother Cancer Father pancreatic cancer Patient Allergies ALLERGIES Allergen Reactions Environmental [Othe* Intolerance Current Medications Current Outpatient Medications on File Prior to Visit Medication Sig omeprazole (PRILOSEC) 40 mg capsule Take 1 capsule by mouth once daily. mometasone-formoterol (DULERA) 200-5 mcg/actuation inhaler Inhale 2 Puffs as instructed twice daily. albuterol HFA (PROVENTIL HFA, VENTOLIN HFA) 90 mcg/actuation inhaler Inhale 2 Puffs as instructed every 4 hours as needed for wheezing/shortness of breath. montelukast (SINGULAIR) 10 mg tablet Take 1 tablet by mouth daily at bedtime. nortriptyline (PAMELOR) 50 mg capsule Take 1 capsule by mouth twice daily. lisinopril (ZESTRIL, PRINIVIL) 5 mg tablet Take 1 tablet by mouth once daily. tamsulosin (FLOMAX) 0.4 mg TAKE 1 CAPSULE DAILY AT BEDTIME polyethylene glycol 3350 (MIRALAX, GLYCOLAX) 17 gram packet Take 1 Packet by mouth twice daily. Current Facility-Administered Medications on File Prior to Visit Medication perflutren lipid microspheres 1.3 mL in NaCl (PF) 0.9% 10 mL injection (DEFINITY) sodium chloride 0.9 % (flush) 10 mL (BD POSIFLUSH) Social History Social History Tobacco Use Smoking status: Never Smokeless tobacco: Never Tobacco comments: Non smoking childhood home. Vaping Use Vaping Use: Never used Substance Use Topics Alcohol use: No Drug use: No EXAM: BP 120/78 Pulse 88 Resp 16 Wt 89 kg (196 lb 1.6 oz) BMI 28.96 kg/m General Appearance: Well appearing, alert, in no acute distress, well-hydrated, well nourished.. Lungs: Lungs clear to auscultation. No wheezing, rhonchi, rales.. Heart: RRR without murmur, gallop, or rubs. No ectopy. Health Maintenance List Covid-19 Vaccine(6 - Pfizer series) due on 07/14/2022 Influenza Vaccine(1) due on 01/29/2023 Annual PCP Team Chronic Disease Visit due on 01/05/2024 BP Controlled (<130/80) due on 01/22/2024 Diabetes Screening due on 09/08/2025 DTaP,Tdap,Td Vaccine(4 - Td or Tdap) due on 10/01/2026 Spirometry Completed Advance Directive Discussion Completed Shingrix Vaccine Completed Pneumococcal Vaccine: 65+ Completed Colorectal Cancer Screening Discontinued Data reviewed None ASSESSMENT/PLAN: 1. Essential hypertension, benign - ICD9: 401.1, ICD10: I10 (primary diagnosis) - Controlled - Continue current medications - Recommend home blood pressure monitoring, to bring results to next visit - Encouraged sodium restriction, DASH or Mediterranean diet - Recommend regular aerobic exercise - Discussed need for and benefit of weight loss. BMI 28.96 kg/(m^2) 2. Moderate persistent asthma without complication - ICD9: 493.90, ICD10: J45.40 - Mild intermittent asthma stable - Continue current medications - Avoidance of triggers recommended - Continue with E Tailer 3. Benign non-nodular prostatic hyperplasia with lower urinary tract symptoms - ICD9: 600.91, ICD10: N40.1 controlled Continue current medications. 4. Recurrent major depressive disorder, in full remission (HCC) - ICD9: 296.36, ICD10: F33.42 Stable Continue current medications. Continue with Berkley 5. Anxiety - ICD9: 300.00, ICD10: F41.9 Stable Continue current medications. Continue with Berkley 6. Low platelet count (HCC) - ICD9: 287.5, ICD10: D69.6 Check CBC today; notify of results Follow up in 6 months with fasting labs prior. I agree with the Chief Complaint, ROS, and Past Histories independently gathered by the clinical academic support assistant and the remaining scribed note accurately describes my personal service to the patient. Medical Decision Making: Problems: Moderate: 2+ stable chronic illnesses Data: Unique test(s) ordered: 3+ Risk: Moderate: Drug management Medical Decision Making Level: 4 - Moderate Binu Bellamy MD The documentation for this note was completed by Marilin Schaffer Ma acting as scribe for Binu Bellamy MD. March 09, 2023 9:37 AM. Marilin Schaffer Ma documented in this encounter [facility] 03-01-2023 Note HNO ID: [id number] Author: Lulú Goncalves RT(R) Service: Nuclear Medicine Author Type: Technologist Type: Progress Notes Filed: 03/01/2023 12:48 PM Note Text: RADIOLOGY SERVICE PROGRESS NOTE SERVICE DATE: 03/01/2023 SERVICE TIME: 07:05 AM PATIENT IDENTITY VERIFICATION COMPLETED USING TWO (2) STANDARD IDENTIFIERS: Name and Date of confirmed by patient verbally FALL SCREENING: Has the patient had 2 falls in the last year or 1 fall with injury or currently using an Ambulatory Assistive Device (Walker, Cane, Wheelchair, Crutches, etc.)? No PATIENT GENDER DATA: .male ALLERGIES: Reviewed and unchanged MEDICATIONS REVIEWED: No PATIENT RELEVANT IMPLANT DATA REVIEWED: Not Applicable CREATININE: Creatinine Date Value Ref Range Status 09/08/2022 0.96 0.73 - 1.22 mg/dL Final 05/11/2022 1.01 0.73 - 1.22 mg/dL Final 02/23/2022 1.00 0.73 - 1.22 mg/dL Final Estimated Glomerular Filtration Rate Date Value Ref Range Status 09/08/2022 81 >=60 mL/min/1.73m? Final Comment: Estimated Glomerular Filtration Rate (eGFR) is calculated using the 2020 CKD-EPI creatinine equation. This equation utilizes serum creatinine, sex, and age as parameters. The creatinine assay has traceable calibration to isotope dilution-mass spectrometry. Refer to KDIGO guidelines for clinical interpretation. In patients with unstable renal function, e.g. those with acute kidney injury, the eGFR may not accurately reflect actual GFR. eGFR- Date Value Ref Range Status 04/28/2021 >60 Final P.O.C.T. RESULTS: N/A March 01, [address] PERFORMED: No IV SITE: Ambulatory: A peripheral IV was started in the Right antecubital site with a Angio cath: 22 gauge. POST EXAM PIV STATUS: Discontinued PROCEDURE TYPE: NM Stress: 12.3 mCi [id number] was administered IV for Rest Imaging at 07:12 by Lulú Goncalves. 33.4 mCi [id number] was administered IV for Stress Imaging at 08:35 by Lulú Goncalves. ADMINISTRATION TIME: PATIENT DISCHARGED TO: Ambulatory patient, left [place] department area. A Diagnostic radioactive procedure has taken place, with no further precautions necessary other than routine body substance precautions. More information regarding radiation safety can be found using this link: [email or web address]%20Me [email or web address] SIGNATURE: RT Juan(R) PATIENT NAME: Valentina Rodríguez DATE: March 01, 2023 TIME: 09:25 AM PAGER/CONTACT #: [facility] 03-01-2023 History of Presen t illness Narrative RADIOLOGY SERVICE PROGRESS NOTE SERVICE DATE: 03/01/2023 SERVICE TIME: 07:05 AM PATIENT IDENTITY VERIFICATION COMPLETED USING TWO (2) STANDARD IDENTIFIERS: Name and Date of confirmed by patient verbally FALL SCREENING: Has the patient had 2 falls in the last year or 1 fall with injury or currently using an Ambulatory Assistive Device (Walker, Cane, Wheelchair, Crutches, etc.)? No PATIENT GENDER DATA: .male ALLERGIES: Reviewed and unchanged MEDICATIONS REVIEWED: No PATIENT RELEVANT IMPLANT DATA REVIEWED: Not Applicable CREATININE: Creatinine Date Value Ref Range Status 09/08/2022 0.96 0.73 - 1.22 mg/dL Final 05/11/2022 1.01 0.73 - 1.22 mg/dL Final 02/23/2022 1.00 0.73 - 1.22 mg/dL Final Estimated Glomerular Filtration Rate Date Value Ref Range Status 09/08/2022 81 >=60 mL/min/1.73m Final Comment: Estimated Glomerular Filtration Rate (eGFR) is calculated using the 2020 CKD-EPI creatinine equation. This equation utilizes serum creatinine, sex, and age as parameters. The creatinine assay has traceable calibration to isotope dilution-mass spectrometry. Refer to KDIGO guidelines for clinical interpretation. In patients with unstable renal function, e.g. those with acute kidney injury, the eGFR may not accurately reflect actual GFR. eGFR- Date Value Ref Range Status 04/28/2021 >60 Final P.O.C.T. RESULTS: N/A March 01, [address] PERFORMED: No IV SITE: Ambulatory: A peripheral IV was started in the Right antecubital site with a Angio cath: 22 gauge. POST EXAM PIV STATUS: Discontinued PROCEDURE TYPE: NM Stress: 12.3 mCi [id number] was administered IV for Rest Imaging at 07:12 by Lulú Goncalves. 33.4 mCi [id number] was administered IV for Stress Imaging at 08:35 by Lulú Goncalves. ADMINISTRATION TIME: PATIENT DISCHARGED TO: Ambulatory patient, left [place] department area. A Diagnostic radioactive procedure has taken place, with no further precautions necessary other than routine body substance precautions. More information regarding radiation safety can be found using this link: [email or web address]%[email or web address] uclear%20Medicine%[email or web address].[email or web address] df SIGNATURE: RT Juan(Tony) PATIENT NAME: Valentina Rodríguez DATE: March 01, 2023 TIME: 09:25 AM PAGER/CONTACT #: documented in this encounter [facility] 01-21-2023 Note HNO ID: [id number] Author: Becky Fierro PA-C Service: ? Author Type: Physician Superintendent Operations Division Type: Progress Notes Filed: 01/21/2023 11:38 AM Note Text: Patient: Valentina Rodríguez PCP: Binu Bellamy MD CC: follow up HPI: Valentina Rodríguez 78 year old male never smoker with PMH significant for GERD, BPH, HTN, allergies previously treated with IT, depression, eventration of diaphragm, and chronic cough. DAMARI negative, referred to Dr. Roca for VCD but was started on ICS by PCP which completely resolved his cough. He was well until he developed COVID in May 2021 which resulted in severe cough and SOB. ICS, oral steroids and antibiotics had not been helpful. Evaluation for VTE negative. Current therapy with Dulera 200 mcg, Singulair and Albuterol. Today, patient reports SOB seems better with higher dose of Dulera. Cough is significantly improved, but continues to clear throat frequently. When he does expel sputum it is thick. Previously tried Mucinex without much change in sputum. No wheezing, chest pain or palpitations. Exertional dyspnea is improved with increased Dulera. Has stress test scheduled. No lower extremity edema. 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 Lumbar discogenic pain syndrome 06/05/2010 Male erectile disorder Other intervertebral disc degeneration, lumbosacral region Overweight Personal history of other malignant neoplasm of skin Personal history of tobacco use Rosacea Unilateral primary osteoarthritis, right knee Allergies: Environmental [Othe* Intolerance mometasone-formoterol (DULERA) 200-5 mcg/actuation inhalerInhale 2 Puffs as instructed twice daily.Disp: 1 EachRfl: 2 albuterol HFA (PROVENTIL HFA, VENTOLIN HFA) 90 mcg/actuation inhalerInhale 2 Puffs as instructed every 4 hours as needed for wheezing/shortness of breath.Disp: 3 EachRfl: 3 montelukast (SINGULAIR) 10 mg tabletTake 1 tablet by mouth daily at bedtime.Disp: 90 tabletRfl: 3 nortriptyline (PAMELOR) 50 mg capsuleTake 1 capsule by mouth twice daily.Disp: 180 capsuleRfl: 3 lisinopril (ZESTRIL, PRINIVIL) 5 mg tabletTake 1 tablet by mouth once daily.Disp: 90 tabletRfl: 3 omeprazole (PRILOSEC) 20 mg capsuleTAKE 1 CAPSULE DAILY BEFORE BREAKFAST (ONE-HALF HOUR BEFORE MEAL).Disp: 90 capsuleRfl: 3 tamsulosin (FLOMAX) 0.4 mgTAKE 1 CAPSULE DAILY AT BEDTIMEDisp: 90 capsuleRfl: 3 polyethylene glycol 3350 (MIRALAX, GLYCOLAX) 17 gram packetTake 1 Packet by mouth twice daily.Disp: 180 PacketRfl: 3 Social History Tobacco Use Smoking status: Never Smokeless tobacco: Never Tobacco comments: Non smoking childhood home. Substance Use Topics Alcohol use: No Drug use: No Family History Problem Relation Age of Onset Anxiety disorder Mother Depression Mother Stroke Mother Hypertension Mother Cancer Father pancreatic cancer PAST SURGICAL HISTORY Procedure Laterality Date CATARACT EXTRACTION HX Bilateral 2019 COLONOSCOPY FLX DX W/COLLJ SPEC WHEN PFRMD 09/26/2001 Colonoscopy-repeat in COLONOSCOPY FLX DX W/COLLJ SPEC WHEN PFRMD 11/03/2011 Colonoscopy COLONOSCOPY SCRN NOT HIGH RISK 06/18/2020 EGD 06/18/2020 PAST SURGICAL HISTORY OF 10 yrs ago BCC removed by Dr.Robert Naqvi PAST SURGICAL HISTORY OF 2004 Premalignant lesion on left side nose by Dr.Robert Naqvi SKIN BIOPSY HX SKIN BX, 1 LESION Skin biopsy TONSILLECTOMY AND ADENOIDECTOMY I reviewed the past medical history, family history, social history and surgical history with changes noted above and updated in EMR. IMMUNIZATIONS Prevnar 13 - 06/12/2014 Pneumovax 23 - 06/25/2015, 04/20/2013, 04/03/2008 Influenza - 03/13/2022 COVID-19 - 03/13/2022, 08/29/2021, 02/21/2021, 08/16/2020, 07/26/2020 ROS: CONSTITUTIONAL: No fevers, chills, nightsweats, unintended weight loss HEENT: Denies allergy symptoms. EYES: No diplopia or blurry vision. CARDIOVASCULAR: No chest pain, dyspnea, palpitations, orthopnea, PND, edema. PULM: See HPI GI: No dysphagia/odynophagia, problematic reflux INTEGUMENTARY: No new skin changes or rashes PHYSICAL EXAMINATION: BP 116/70 (BP Site: Right Arm, BP Position: Sitting, BP Cuff Size: Large Adult) Pulse 90 Resp 14 Ht 175.3 cm (5' 9 ) Wt 89.2 kg (196 lb 9.6 oz) SpO2 94% BMI 29.03 kg/m? Gen: No acute distress. Cooperative with examination. HEENT: Normocephalic. Sclera, conjunctiva clear. Oral hygeine and dentition good. No thrush. Resp: No s (more content not included)... [facility] 01-21-2023 History of Presen t illness Narrative Images from the original note were not included. Patient: Valentina Rodríguez PCP: Binu Bellamy MD CC: follow up HPI: Valentina Rodríguez 78 year old male never smoker with PMH significant for GERD, BPH, HTN, allergies previously treated with IT, depression, eventration of diaphragm, and chronic cough. DAMARI negative, referred to Dr. Roac for VCD but was started on ICS by PCP which completely resolved his cough. He was well until he developed COVID in May 2021 which resulted in severe cough and SOB. ICS, oral steroids and antibiotics had not been helpful. Evaluation for VTE negative. Current therapy with Dulera 200 mcg, Singulair and Albuterol. Today, patient reports SOB seems better with higher dose of Dulera. Cough is significantly improved, but continues to clear throat frequently. When he does expel sputum it is thick. Previously tried Mucinex without much change in sputum. No wheezing, chest pain or palpitations. Exertional dyspnea is improved with increased Dulera. Has stress test scheduled. No lower extremity edema. PAST MEDICAL HISTORY Diagnosis Date Abdominal pain, left lower quadrant Achilles tendinitis 10/04/2012 Adjustment disorder with depressed mood Allergies Chronic low back pain 03/12/2011 Constipation Essential hypertension, benign Family history of ischemic heart disease Family history of mental disorder Family history of stroke GERD without esophagitis Hypertrophy of prostate with urinary obstruction and other lower urinary tract symptoms (LUTS) 07/05/2007 retirement (current) use of inhaled steroids Lumbar discogenic pain syndrome 06/05/2010 Male erectile disorder Other intervertebral disc degeneration, lumbosacral region Overweight Personal history of other malignant neoplasm of skin Personal history of tobacco use Rosacea Unilateral primary osteoarthritis, right knee Allergies: Environmental [Othe* Intolerance mometasone-formoterol (DULERA) 200-5 mcg/actuation inhaler^Inhale 2 Puffs as instructed twice daily.^Disp: 1 Each^Rfl: 2 albuterol HFA (PROVENTIL HFA, VENTOLIN HFA) 90 mcg/actuation inhaler^Inhale 2 Puffs as instructed every 4 hours as needed for wheezing/shortness of breath.^Disp: 3 Each^Rfl: 3 montelukast (SINGULAIR) 10 mg tablet^Take 1 tablet by mouth daily at bedtime.^Disp: 90 tablet^Rfl: 3 nortriptyline (PAMELOR) 50 mg capsule^Take 1 capsule by mouth twice daily.^Disp: 180 capsule^Rfl: 3 lisinopril (ZESTRIL, PRINIVIL) 5 mg tablet^Take 1 tablet by mouth once daily.^Disp: 90 tablet^Rfl: 3 omeprazole (PRILOSEC) 20 mg capsule^TAKE 1 CAPSULE DAILY BEFORE BREAKFAST (ONE-HALF HOUR BEFORE MEAL).^Disp: 90 capsule^Rfl: 3 tamsulosin (FLOMAX) 0.4 mg^TAKE 1 CAPSULE DAILY AT BEDTIME^Disp: 90 capsule^Rfl: 3 polyethylene glycol 3350 (MIRALAX, GLYCOLAX) 17 gram packet^Take 1 Packet by mouth twice daily.^Disp: 180 Packet^Rfl: 3 Social History Tobacco Use Smoking status: Never Smokeless tobacco: Never Tobacco comments: Non smoking childhood home. Substance Use Topics Alcohol use: No Drug use: No Family History Problem Relation Age of Onset Anxiety disorder Mother Depression Mother Stroke Mother Hypertension Mother Cancer Father pancreatic cancer PAST SURGICAL HISTORY Procedure Laterality Date CATARACT EXTRACTION HX Bilateral 2019 COLONOSCOPY FLX DX W/COLLJ SPEC WHEN PFRMD 09/26/2001 Colonoscopy-repeat in COLONOSCOPY FLX DX W/COLLJ SPEC WHEN PFRMD 11/03/2011 Colonoscopy COLONOSCOPY SCRN NOT HIGH RISK 06/18/2020 EGD 06/18/2020 PAST SURGICAL HISTORY OF 10 yrs ago BCC removed by Dr.Robert Naqvi PAST SURGICAL HISTORY OF 2004 Premalignant lesion on left side nose by Dr.Robert Naqvi SKIN BIOPSY HX SKIN BX, 1 LESION Skin biopsy TONSILLECTOMY & ADENOIDECTOMY <AGE 11 I reviewed the past medical history, family history, social history and surgical history with changes noted above and updated in EMR. IMMUNIZATIONS Prevnar - 06/12/2014 Pneumovax - 06/25/2015, 04/20/2013, 04/03/2008 Influenza - 03/13/2022 COVID-19 - 03/13/2022, 08/29/2021, 02/21/2021, 08/16/2020, 07/26/2020 ROS: CONSTITUTIONAL: No fevers, chills, nightsweats, unintended weight loss HEENT: Denies allergy symptoms. EYES: No diplopia or blurry vision. CARDIOVASCULAR: No chest pain, dyspnea, palpitations, orthopnea, PND, edema. PULM: See HPI GI: No dysphagia/odynophagia, problematic reflux INTEGUMENTARY: No new skin changes or rashes PHYSICAL EXAMINATION: BP 116/70 (BP Site: Right Arm, BP Position: Sitting, BP Cuff Size: Large Adult) Pulse 90 Resp 14 Ht 175.3 cm (5' 9 ) Wt 89.2 kg (196 lb 9.6 oz) SpO2 94% BMI 29.03 kg/m Gen: No acute distress. Cooperative with examination. HEENT: Normocephalic. Sclera, conjunctiva clear. Oral hygeine and dentition good. No thrush. Resp: No stridor, accessory respiratory muscle use, supra-sternal or intercostal retractions. No wheezes, crackles. CV: Regular rythm. Heart tones normal. Radial pulses normal. Abd: Non distended. MSK: No kyphoscoliosis. Ext: Warm and well perfused. No clubbing, cyanosis, edema. Skin: No rash, ecchymoses. Neuro: Mental status normal. Affect normal. No tremor. DATA: Exhaled nitric oxide (Fiorella), 12/10/2022: 15 (normal < 20). Test Date Oral Exhaled Nitric Oxide (ppb) 03/11/2022 22.0 PFT, 03/11/2022: Review pulmonary function test shows small airways obstruction and minimal air trapping Echocardiogram, 12/21/2022 CONCLUSIONS: - Technically difficult exam due to body habitus. - Exam indication: Shortness of Breath - The left ventricle is normal in size. Left ventricular systolic function is normal. EF = 59 5% (2D biplane) Grade I left ventricular diastolic dysfunction. - The right ventricle is normal in size. Right ventricular systolic function is normal. - The visualized aorta is borderline dilated with a maximal dimension of 3.9 cm. - There is mild mitral insufficiency present. - There is mild aortic insufficiency present. - Exam was compared with the prior echocardiographic exam performed on 07/26/2013 (Stress). There has been no significant change. SSMENT/PLAN: 1. Cough variant asthma - ICD9: 493.82, ICD10: J45.991 (primary diagnosis) Continue with increased dose of Dulera at this time. Continue Singulair. Albuterol HFA inhaler, 2 inhalations 10-15 minutes prior to activities associated with shortness of breath, and as needed for rescue relief of shortness of breath or wheezing, up to 4 times daily. - MOMETASONE-FORMOTEROL HFA 200 MCG-5 MCG/ACTUATION AEROSOL INHALER 2. Gastroesophageal reflux disease, unspecified whether esophagitis present - ICD9: 530.81, ICD10: K21.9 Will increase Omeprazole to 40 mg until next OV that is scheduled in April with Dr. Ponce. - OMEPRAZOLE 40 MG CAPSULE,DELAYED RELEASE 3. History of environmental allergies - ICD9: V15.09, ICD10: Z91.09 Continue Singulair. 4. History of COVID-19 - ICD9: V12.09, ICD10: Z86.16 Portions of this documentation were copied and pasted from previous office visit notes in order to provide a cohesive continuity of the history. The note has been reviewed and edited and updated as necessary. Becky Fierro PA-C documented in this encounter [facility] 01-04-2023 Note HNO ID: [id number] Author: Binu Bellamy MD Service: ? Author Type: Physician Type: Progress Notes Filed: 01/04/2023 8:18 PM Note Text: Chief Complaint Patient presents with: Follow Up: Results HPI Valentina Rodríguez is a 77 year old male who presents here today for discuss results. Pt here to discuss Echo results from 12/21/22 ordered by Pulmonary and continued shortness of breath. Dr. Ponce increased pt's Dulera to 200-5 mcg 2 puffs twice daily and added Singulair 10 mg once daily. Also using Proventil HFA 90 mcg inhaler prn. Pt continues to still have issues with shortness of breath, noting it's not as bad as it was but not resolving. Pulmonary is questioning if his issues are really asthma related. This is why the Echo was ordered. Normal BNP done 05/21 SOB worse first thing in the am, but does better as the day goes on. Checks pulse ox as home running 92-95. CONCLUSIONS: - Technically difficult exam due to body habitus. - Exam indication: Shortness of Breath - The left ventricle is normal in size. Left ventricular systolic function is normal. EF = 59 ? 5% (2D biplane) Grade I left ventricular diastolic dysfunction. - The right ventricle is normal in size. Right ventricular systolic function is normal. - The visualized aorta is borderline dilated with a maximal dimension of 3.9 cm. - There is mild mitral insufficiency present. - There is mild aortic insufficiency present. - Exam was compared with the prior echocardiographic exam performed on 07/26/2013 (Stress). There has been no significant change. Past medical history, appointments, medications, allergies reviewed. Previous Medical History PAST MEDICAL HISTORY Diagnosis Date Abdominal pain, left lower quadrant Achilles tendinitis 10/04/2012 Adjustment disorder with depressed mood Allergies Chronic low back pain 03/12/2011 Constipation Essential hypertension, benign Family history of ischemic heart disease Family history of mental disorder Family history of stroke GERD without esophagitis Hypertrophy of prostate with urinary obstruction and other lower urinary tract symptoms (LUTS) 07/05/2007 retirement (current) use of inhaled steroids Lumbar discogenic pain syndrome 06/05/2010 Male erectile disorder Other intervertebral disc degeneration, lumbosacral region Overweight Personal history of other malignant neoplasm of skin Personal history of tobacco use Rosacea Unilateral primary osteoarthritis, right knee Previous Surgical History PAST SURGICAL HISTORY Procedure Laterality Date CATARACT EXTRACTION HX Bilateral 2019 COLONOSCOPY FLX DX W/COLLJ SPEC WHEN PFRMD 09/26/2001 Colonoscopy-repeat in COLONOSCOPY FLX DX W/COLLJ SPEC WHEN PFRMD 11/03/2011 Colonoscopy COLONOSCOPY SCRN NOT HIGH RISK 06/18/2020 EGD 06/18/2020 PAST SURGICAL HISTORY OF 10 yrs ago BCC removed by Dr.Robert Naqvi PAST SURGICAL HISTORY OF 2003 Premalignant lesion on left side nose by Dr.Robert Naqvi SKIN BIOPSY HX SKIN BX, 1 LESION Skin biopsy TONSILLECTOMY AND ADENOIDECTOMY Family History FAMILY HISTORY Problem Relation Age of Onset Anxiety disorder Mother Depression Mother Stroke Mother Hypertension Mother Cancer Father pancreatic cancer Patient Allergies ALLERGIES Allergen Reactions Environmental [Othe* Intolerance Current Medications Current Outpatient Medications on File Prior to Visit Medication Sig mometasone-formoterol (DULERA) 200-5 mcg/actuation inhaler Inhale 2 Puffs as instructed twice daily. albuterol HFA (PROVENTIL HFA, VENTOLIN HFA) 90 mcg/actuation inhaler Inhale 2 Puffs as instructed every 4 hours as needed for wheezing/shortness of breath. montelukast (SINGULAIR) 10 mg tablet Take 1 tablet by mouth daily at bedtime. nortriptyline (PAMELOR) 50 mg capsule Take 1 capsule by mouth twice daily. lisinopril (ZESTRIL, PRINIVIL) 5 mg tablet Take 1 tablet by mouth once daily. omeprazole (PRILOSEC) 20 mg capsule TAKE 1 CAPSULE DAILY BEFORE BREAKFAST (ONE-HALF HOUR BEFORE MEAL). tamsulosin (FLOMAX) 0.4 mg TAKE 1 CAPSULE DAILY AT BEDTIME polyethylene glycol 3350 (MIRALAX, GLYCOLAX) 17 gram packet Take 1 Packet by mouth twice daily. Current Facility-Administered Medications on File Prior to Visit Medication perflutren lipid microspheres 1.3 mL in NaCl (PF) 0.9% 10 mL injection (DEFINITY) sodium chloride 0.9 % (flush) 10 mL (BD POSIFLUSH) Social History Social History Tobacco Use Smoking status: Never Smokeless tobacco: Never Tobacco comments: Non smoking childhood home. Substance Use Topics Alcohol use: No Drug use: No EXAM: BP 122/74 (BP Site: Right Arm, BP Position: Sitting, BP Cuff Size: Regular Adult) Pulse 88 Resp 18 Wt 87.7 kg (193 lb 6.4 oz) SpO2 95% BMI 29.49 kg/m? General Appearance: Well appearing, alert, in no acute distress, well-hydrated, well nourished.. Lungs: Lungs clear to auscu (more content not included)... [facility] 12-11-2022 Miscellaneous Notes Spoke with patient. Fluticasone increased in new Dulera RX. Dosing remains 2 puffs BID. Bessy Barron LPN Patient called, verified name and date of regarding prescription Dulera. Patient stated that last office visit with Becky Fierro, it was discussed to increase puffs of Dulera from 2 to 3. Patient picked up prescription from pharmacy: mometasone-formoterol (DULERA) 200-5 mcg/actuation inhaler 1 Each 2 12/10/2022 Sig: Inhale 2 Puffs as instructed twice daily. Patient is concerned due to dosage of medication increasing from 100 mcg - 200 mcg. Patient wanted to be advised should he still increase to 3 puffs if dosage has also went up? Please review and advise patient. Blanca Ponce LPN documented in this encounter [facility] 12-10-2022 Note HNO ID: [id number] Author: MAICOL Velazco Service: ? Author Type: Respiratory Therapist Type: Procedures Filed: 12/10/2022 9:15 AM Note Text: RESPIRATORY THERAPY ORAL EXHALED NITRIC OXIDE SERVICE DATE: 12/10/2022 SERVICE TIME: 9:14 AM Oral Exhaled Nitric Oxide measurement: 15.0 (ppb) Normal: Adult 5-20 ppb, pediatric (<12 years) 5-15 ppb High Normal / Increased: Adult 20-35 ppb, pediatric (<12 years) 15-25 ppb Moderately raised exhaled Nitric Oxide may indicate underlying inflammation, but note that: Cold and influenza can raise exhaled Nitric Oxide and some patients have higher baseline exhaled Nitric Oxide levels than others. High: Adult >35 ppb, pediatric (<12 years) >25 ppb Indicative of ongoing eosinophilic inflammation. Symptomatic patient likely to respond to steroids. Possible causes (if already on steroids): Poor compliance, recent allergen exposure, steroid dose inadequate, and steroid resistance. Note that not all patients with high exhaled nitric oxide levels display symptoms. Oral Exhaled Nitric Oxide measurement (Previous Encounters) Test Date Oral Exhaled Nitric Oxide (ppb) 12/10/2022 15.0 03/11/2022 22.0 NAME: Tawana MAICOL Moore PATIENT NAME: Valentina Rodríguez DATE: December 10, 2022 TIME: 9:14 AM [facility] 12-10-2022 Note HNO ID: [id number] Author: MAICOL Velazco Service: ? Author Type: Respiratory Therapist Type: Progress Notes Filed: 12/10/2022 9:15 AM Note Text: PULM FUNCTION SMARTBLOCK: Provider: Becky Fierro PA-C Assisting Tech: Tawana Moore RPFT Exhaled Nitric Oxide: 1 [facility] 12-10-2022 Note HNO ID: [id number] Author: Becky Fierro PA-C Service: ? Author Type: Physician Superintendent Operations Division Type: Progress Notes Filed: 12/10/2022 9:19 AM Note Text: Patient: Valentina Rodríguez PCP: Binu Bellamy MD CC: follow-up cough variant asthma HPI: Valentina Rodríguez 77 year old male never smoker with PMH significant for GERD, BPH, HTN, allergies previously treated with IT, depression, eventration of diaphragm, and chronic cough. DAMARI negative, referred to Dr. Roca for VCD but was started on ICS by PCP which completely resolved his cough. He was well until he developed COVID in May 2021 which resulted in severe cough and SOB. ICS, oral steroids and antibiotics had not been helpful. Evaluation for VTE negative. Current therapy with Dulera and as needed Albuterol. Today, patient reports he was well controlled and doing well until August at which time he noticed an increase in allergy symptoms. Daily cough productive of phlegm. No hemoptysis. No wheezing, chest pain, or palpitations. Exertional dyspnea with minimal effort. Is having difficulty maintaining lawn and has to take frequent breaks. Denies significant post nasal drip or sinus congestion. No lower extremity edema. ASTHMA CONTROL TEST Date: 12/10/2022 In the last 4 weeks, how much of the time did your asthma keep you from getting as much done at work or home that you wanted to do? Most of the time (2) In the last 4 weeks, how often have you had shortness of breath? More than once per day (1) In the last 4 weeks, how often did your asthma symptoms (wheezing, coughing, shortness of breath, chest tightness or pain) wake you up at night or earlier than usual? Not at all (5) In the last 4 weeks, how often have you used your rescue inhaler or nebulizer medication (such as Albuterol, Proventil, Ventolin, Maxair, Xoponex, or Primatene Mist)? 1 or 2 times per day (2) In the last 4 weeks, how would you rate your asthma control? 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 montelukast (SINGULAIR) 10 mg tablet Take 1 tablet by mouth daily at bedtime. nortriptyline (PAMELOR) 50 mg capsule Take 1 capsule by mouth twice daily. mometasone-formoterol (DULERA) 100-5 mcg/actuation inhaler Inhale 2 Puffs as instructed twice daily. lisinopril (ZESTRIL, PRINIVIL) 5 mg tablet Take 1 tablet by mouth once daily. omeprazole (PRILOSEC) 20 mg capsule TAKE 1 CAPSULE DAILY BEFORE BREAKFAST (ONE-HALF HOUR BEFORE MEAL). tamsulosin (FLOMAX) 0.4 mg TAKE 1 CAPSULE DAILY AT BEDTIME polyethylene glycol 3350 (MIRALAX, GLYCOLAX) 17 gram packet Take 1 Packet by mouth twice daily. Social History Tobacco Use Smoking status: Never Smokeless tobacco: Never Tobacco comments: Non smoking childhood home. Substance Use Topics Alcohol use: No Drug use: No Family History Problem Relation Age of Onset Anxiety disorder Mother Depression Mother Stroke Mother Hypertension Mother Cancer Father pancreatic cancer PAST SURGICAL HISTORY Procedure Laterality Date CATARACT EXTRACTION HX Bilateral 2019 COLONOSCOPY FLX DX W/COLLJ SPEC WHEN PFRMD 09/26/2001 Colonoscopy-repeat in COLONOSCOPY FLX DX W/COLLJ SPEC WHEN PFRMD 11/03/2011 Colonoscopy COLONOSCOPY SCRN NOT HIGH RISK 06/18/2020 EGD 06/18/2020 PAST SURGICAL HISTORY OF 10 yrs ago BCC removed by Dr.Robert Naqvi PAST SURGICAL HISTORY OF 2003 Premalignant lesion on left side nose by Dr.Robert Naqvi SKIN BIOPSY HX SKIN BX, 1 LESION Skin biopsy TONSILLECTOMY AND ADENOIDECTOMY I reviewed the past medical history, family history, social history and surgical history with changes noted above and updated in EMR. IMMUNIZATIONS Prevnar - 06/12/2014 Pneumovax - 06/25/2015, 04/20/2013, 04/03/2008 Influenza - 03/13/2022 COVID-19 - 03/13/2022, 08/29/2021, 02/21/2021, 08/16/2020, 07/26/2020 ROS: CONSTITUTIONAL: No fevers, chills, nights (more content not included)... [facility] 12-10-2022 Procedure note Associated Ord er(s): NITRIC OXIDE, EXHALED RESPIRATORY THERAPY ORAL EXHALED NITRIC OXIDE SERVICE DATE: 12/10/2022 SERVICE TIME: 9:14 AM Oral Exhaled Nitric Oxide measurement: 15.0 (ppb) Normal: Adult 5-20 ppb, pediatric (<12 years) 5-15 ppb High Normal / Increased: Adult 20-35 ppb, pediatric (<12 years) 15-25 ppb Moderately raised exhaled Nitric Oxide may indicate underlying inflammation, but note that: Cold and influenza can raise exhaled Nitric Oxide and some patients have higher baseline exhaled Nitric Oxide levels than others. High: Adult >35 ppb, pediatric (<12 years) >25 ppb Indicative of ongoing eosinophilic inflammation. Symptomatic patient likely to respond to steroids. Possible causes (if already on steroids): Poor compliance, recent allergen exposure, steroid dose inadequate, and steroid resistance. Note that not all patients with high exhaled nitric oxide levels display symptoms. Oral Exhaled Nitric Oxide measurement (Previous Encounters) Test Date Oral Exhaled Nitric Oxide (ppb) 12/10/2022 15.0 03/11/2022 22.0 NAME: MAICOL Velazco PATIENT NAME: Valentina Rodríguez DATE: December 10, 2022 TIME: 9:14 AM documented in this encounter [facility] 12-10-2022 History of Presen t illness Narrative PULM FUNCTION SMARTBLOCK: Provider: Becky Fierro PA-C Assisting Tech: Tawana Moore RPFT Exhaled Nitric Oxide: 1 documented in this encounter [facility] 12-10-2022 History of Presen t illness Narrative Images from the original note were not included. Patient: Valentina Rodríguez PCP: Binu Bellamy MD CC: follow-up cough variant asthma HPI: Valentina Rodríguez 77 year old male never smoker with PMH significant for GERD, BPH, HTN, allergies previously treated with IT, depression, eventration of diaphragm, and chronic cough. DAMARI negative, referred to Dr. Roca for VCD but was started on ICS by PCP which completely resolved his cough. He was well until he developed COVID in May 2021 which resulted in severe cough and SOB. ICS, oral steroids and antibiotics had not been helpful. Evaluation for VTE negative. Current therapy with Dulera and as needed Albuterol. Today, patient reports he was well controlled and doing well until August at which time he noticed an increase in allergy symptoms. Daily cough productive of phlegm. No hemoptysis. No wheezing, chest pain, or palpitations. Exertional dyspnea with minimal effort. Is having difficulty maintaining lawn and has to take frequent breaks. Denies significant post nasal drip or sinus congestion. No lower extremity edema. ASTHMA CONTROL TEST Date: 12/10/2022 In the last 4 weeks, how much of the time did your asthma keep you from getting as much done at work or home that you wanted to do? Most of the time (2) In the last 4 weeks, how often have you had shortness of breath? More than once per day (1) In the last 4 weeks, how often did your asthma symptoms (wheezing, coughing, shortness of breath, chest tightness or pain) wake you up at night or earlier than usual? Not at all (5) In the last 4 weeks, how often have you used your rescue inhaler or nebulizer medication (such as Albuterol, Proventil, Ventolin, Maxair, Xoponex, or Primatene Mist)? 1 or 2 times per day (2) In the last 4 weeks, how would you rate your asthma control? Poorly controlled (2) Total: less than 15 PAST MEDICAL HISTORY Diagnosis Date Abdominal pain, left lower quadrant Achilles tendinitis 10/04/2012 Adjustment disorder with depressed mood Allergies Chronic low back pain 03/12/2011 Constipation Essential hypertension, benign Family history of ischemic heart disease Family history of mental disorder Family history of stroke GERD without esophagitis Hypertrophy of prostate with urinary obstruction and other lower urinary tract symptoms (LUTS) 07/05/2007 retirement (current) use of inhaled steroids Lumbar discogenic pain syndrome 06/05/2010 Male erectile disorder Other intervertebral disc degeneration, lumbosacral region Overweight Personal history of other malignant neoplasm of skin Personal history of tobacco use Rosacea Unilateral primary osteoarthritis, right knee Allergies: Environmental [Othe* Intolerance albuterol HFA (PROVENTIL HFA, VENTOLIN HFA) 90 mcg/actuation inhaler Inhale 2 Puffs as instructed every 4 hours as needed for wheezing/shortness of breath. montelukast (SINGULAIR) 10 mg tablet Take 1 tablet by mouth daily at bedtime. nortriptyline (PAMELOR) 50 mg capsule Take 1 capsule by mouth twice daily. mometasone-formoterol (DULERA) 100-5 mcg/actuation inhaler Inhale 2 Puffs as instructed twice daily. lisinopril (ZESTRIL, PRINIVIL) 5 mg tablet Take 1 tablet by mouth once daily. omeprazole (PRILOSEC) 20 mg capsule TAKE 1 CAPSULE DAILY BEFORE BREAKFAST (ONE-HALF HOUR BEFORE MEAL). tamsulosin (FLOMAX) 0.4 mg TAKE 1 CAPSULE DAILY AT BEDTIME polyethylene glycol 3350 (MIRALAX, GLYCOLAX) 17 gram packet Take 1 Packet by mouth twice daily. Social History Tobacco Use Smoking status: Never Smokeless tobacco: Never Tobacco comments: Non smoking childhood home. Substance Use Topics Alcohol use: No Drug use: No Family History Problem Relation Age of Onset Anxiety disorder Mother Depression Mother Stroke Mother Hypertension Mother Cancer Father pancreatic cancer PAST SURGICAL HISTORY Procedure Laterality Date CATARACT EXTRACTION HX Bilateral 2019 COLONOSCOPY FLX DX W/COLLJ SPEC WHEN PFRMD 09/26/2001 Colonoscopy-repeat in COLONOSCOPY FLX DX W/COLLJ SPEC WHEN PFRMD 11/03/2011 Colonoscopy COLONOSCOPY SCRN NOT HIGH RISK 06/18/2020 EGD 06/18/2020 PAST SURGICAL HISTORY OF 10 yrs ago BCC removed by Dr.Robert Naqvi PAST SURGICAL HISTORY OF 2003 Premalignant lesion on left side nose by Dr.Robert Naqvi SKIN BIOPSY HX SKIN BX, 1 LESION Skin biopsy TONSILLECTOMY & ADENOIDECTOMY <AGE 11 I reviewed the past medical history, family history, social history and surgical history with changes noted above and updated in EMR. IMMUNIZATIONS Prevnar - 06/12/2014 Pneumovax - 06/25/2015, 04/20/2013, 04/03/2008 Influenza - 03/13/2022 COVID-19 - 03/13/2022, 08/29/2021, 02/21/2021, 08/16/2020, 07/26/2020 ROS: CONSTITUTIONAL: No fevers, chills, nightsweats, unintended weight loss HEENT: Denies allergy symptoms. EYES: No diplopia or blurry vision. CARDIOVASCULAR: No chest pain, dyspnea, palpitations, orthopnea, PND, edema. PULM: See HPI GI: No dysphagia/odynophagia, problematic reflux INTEGUMENTARY: No new skin changes or rashes PHYSICAL EXAMINATION: BP (P) 122/68 Pulse (P) 94 Resp (P) 17 Wt 88.9 kg (196 lb) SpO2 (P) 93% BMI 29.89 kg/m Gen: No acute distress. Cooperative with examination. HEENT: Normocephalic. Sclera, conjunctiva clear. Oral hygeine and dentition good. No thrush. Resp: No stridor, accessory respiratory muscle use, supra-sternal or intercostal retractions. No wheezes, crackles. CV: Regular rythm. Heart tones normal. Radial pulses normal. Abd: Non distended. MSK: No kyphoscoliosis. Ext: Warm and well perfused. No clubbing, cyanosis, edema. Skin: No rash, ecchymoses. Neuro: Mental status normal. Affect normal. No tremor. DATA: Exhaled nitric oxide (Fiorella), 12/10/2022: 15 (normal < 20). Test Date Oral Exhaled Nitric Oxide (ppb) 03/11/2022 22.0 PFT: Review pulmonary function test shows small airways obstruction and minimal air trapping Labs: Component Ref Range & Units 2 mo ago Orange Tree IgE <0.35 kU/l <0.35 Orange Tree Class Class 0 Class 0 Eddie Grass IgE <0.35 kU/l 0.47 High Eddie Grass Class Class 0 Class 1 Abnormal Fabby Grass IgE <0.35 kU/l 0.53 High Fabby Grass Class Class 0 Class 1 Abnormal Short Ragweed IgE <0.35 kU/l 1.11 High Short Ragweed Class Class 0 Class 2 Abnormal Mlaoney's Quarters IgE <0.35 kU/l 0.36 High Maloney's Quarters Class Class 0 Class 1 Abnormal Cat Dander IgE <0.35 kU/l <0.35 Cat Dander Class Class 0 Class 0 Dog Dander IgE <0.35 kU/l <0.35 Dog Dander Class Class 0 Class 0 Cladosporium herbarum IgE <0.35 kU/l <0.35 Cladosporium herbarum Class Class 0 Class 0 Alternaria tenuis IgE <0.35 kU/l <0.35 Alternaria tenuis Class Class 0 Class 0 Dermatophagoides Farinae IgE <0.35 kU/l <0.35 Dermatophagoides Farinae Class Class 0 Class 0 Component Ref Range & Units 2 mo ago IgE <114.0 kU/l 21.8 Component Ref Range & Units 2 mo ago (04/10/22) Abs Eosin <0.46 k/uL 0.05 ASSESSMENT/PLAN: 1. Cough variant asthma - ICD9: 493.82, ICD10: J45.991 (primary diagnosis) Not well controlled with ACT = 12. However, nitric oxide is normal. Will trial higher dose Dulera for 1 month. Continue Singulair. Albuterol HFA inhaler, 2 inhalations 10-15 minutes prior to activities associated with shortness of breath, and as needed for rescue relief of shortness of breath or wheezing, up to 4 times daily. - MOMETASONE-FORMOTEROL HFA 200 MCG-5 MCG/ACTUATION AEROSOL INHALER - NITRIC OXIDE, EXHALED 2. SOB (shortness of breath) - ICD9: 786.05, ICD10: R06.02 See #1. Obtain current echocardiogram. - ECHO - PERFLUTREN LIPID MICROSPHERES 1.1 MG/ML INJECTION IN NS 10 ML - SODIUM CHLORIDE 0.9 % (FLUSH) INJECTION SYRINGE 3. History of environmental allergies - ICD9: V15.09, ICD10: Z91.09 See #1. Portions of this documentation were copied and pasted from previous office visit notes in order to provide a cohesive continuity of the history. The note has been reviewed and edited and updated as necessary. Becky Fierro PA-C documented in this encounter [facility] 12-07-2022 Miscellaneous Notes Spoke with patient by phone. [facility] to deliver Dulera in 3-5 days. He has 3 days of medication available currently. Advised patient to contact the office should he need a temporary supply of Dulera sent locally. Bessy Barron LPN documented in this encounter [facility] 09-18-2022 Miscellaneous Notes Patient phones requesting refills as follows: Requested Prescriptions Pending Prescriptions Disp Refills albuterol HFA (PROVENTIL HFA, VENTOLIN HFA) 90 mcg/actuation inhaler 3 Each 3 Sig: Inhale 2 Puffs as instructed every 4 hours as needed for wheezing/shortness of breath. Please review and advise. Bessy Barron LPN documented in this encounter [facility] 09-08-2022 Note HNO ID: [id number] Author: Binu Bellamy MD Service: ? Author Type: Physician Type: Progress Notes Filed: 09/08/2022 9:38 AM Note Text: Chief Complaint Patient presents with: 6 Month Exam HPI Valentina Rodríguez is a 77 year old male who presents here today for 6 month follow up. 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 Will bring updated copy for our records. Denies any bowel, Gi, or urinary issues. Uses Miralax to keep bowels moving. Also taking Flomax 0.4 mg daily. . GERD: Sx stable on Prilosec 20 mg daily. HTN: Denies checking BP much at home, no chest pains, dizziness, or SOB. Taking Lisinopril 5 mg daily. Does try to exercise by doing light weights and some cardio. Depression: Stable. Has followed with Adult Psych, Berkley Roque. Taking Nortriptyline 50 mg BID. Asthma: Follows with Pulm Dr. Ponce. Is currently using Singulair 10 mg daily, Albuterol prn, and Dulera BID. Feels the Symbicort causes a salty taste in his mouth. Pain: right ribs; felt a pop in the rib cage when he was bent over working on a tire. He states that he has achy pain, mostly with laying on the right side or bending forward when getting out of bed. Pain does radiate over into his RUQ. He did take some Ibuprofen when it first happened. Rated pain 0/10, ache, off and on, x 4-5 weeks. He did go to and had xray done, nothing acutely noted. Does not cause pain with walking or sleeping unless he lays on the right side. Pt interested in getting labs to test his sugar, PSA and liver testing. Past medical history, appointments, medications, allergies reviewed. 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 Lumbar discogenic pain syndrome 06/05/2010 Male erectile disorder Other intervertebral disc degeneration, lumbosacral region Overweight Personal history of other malignant neoplasm of skin Personal history of tobacco use Rosacea Unilateral primary osteoarthritis, right knee Previous Surgical History PAST SURGICAL HISTORY Procedure Laterality Date CATARACT EXTRACTION HX Bilateral 2019 COLONOSCOPY FLX DX W/COLLJ SPEC WHEN PFRMD 09/26/2001 Colonoscopy-repeat in COLONOSCOPY FLX DX W/COLLJ SPEC WHEN PFRMD 11/03/2011 Colonoscopy COLONOSCOPY SCRN NOT HIGH RISK 06/18/2020 EGD 06/18/2020 PAST SURGICAL HISTORY OF 10 yrs ago BCC removed by Dr.Robert Naqvi PAST SURGICAL HISTORY OF 2003 Premalignant lesion on left side nose by Dr.Robert Naqvi SKIN BIOPSY HX SKIN BX, 1 LESION Skin biopsy TONSILLECTOMY AND ADENOIDECTOMY Family History FAMILY HISTORY Problem Relation Age of Onset Anxiety disorder Mother Depression Mother Stroke Mother Hypertension Mother Cancer Father pancreatic cancer Patient Allergies ALLERGIES Allergen Reactions Environmental [Othe* Intolerance Current Medications Current Outpatient Medications on File Prior to Visit Medication Sig mometasone-formoterol (DULERA) 100-5 mcg/actuation inhaler Inhale 2 Puffs as instructed twice daily. predniSONE (DELTASONE) 10 mg tablet Take 4 tabs daily x 3 days, then 3 tabs x 3 days, 2 tabs x 3 days, then 1 tab x3 days with food. lisinopril (ZESTRIL, PRINIVIL) 5 mg tablet Take 1 tablet by mouth once daily. montelukast (SINGULAIR) 10 mg tablet Take 1 tablet by mouth daily at bedtime. albuterol HFA (PROVENTIL HFA, VENTOLIN HFA) 90 mcg/actuation inhaler Inhale 2 Puffs as instructed. omeprazole (PRILOSEC) 20 mg capsule TAKE 1 CAPSULE DAILY BEFORE BREAKFAST (ONE-HALF HOUR BEFORE MEAL). tamsulosin (FLOMAX) 0.4 mg TAKE 1 CAPSULE DAILY AT BEDTIME nortriptyline (PAMELOR) 50 mg capsule Take 1 capsule by mouth twice daily. polyethylene glycol 3350 (MIRALAX, GLYCOLAX) 17 gram packet Take 1 Packet by mouth twice daily. No current facility-administered medications on file prior to visit. Social History Social History Tobacco Use Smoking status: Never Smokeless tobacco: Never Tobacco comments: Non smoking childhood home. Substance Use Topics Alcohol use: No Drug use: No EXAM: BP 120/78 Pulse 68 Resp 16 Wt 87.1 kg (192 lb) BMI 29.28 kg/m? General Appearance: Well appearing, alert, in no acute distress, well-hydrated, well nourished.. Lungs: Lungs clear to auscultation. No wheezing, rhonchi, rales.. Heart: RRR without murmur, gallop, or rubs. No ectopy. Musculoskeletal: Pain to right side rib area. More then likely musculoskeletal pain. (more content not included)... [facility] 09-08-2022 History of Presen t illness Narrative Chief Complaint Patient presents with: 6 Month Exam HPI Valentina Rodríguez is a 77 year old male who presents here today for 6 month follow up. 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 Will bring updated copy for our records. Denies any bowel, Gi, or urinary issues. Uses Miralax to keep bowels moving. Also taking Flomax 0.4 mg daily. . GERD: Sx stable on Prilosec 20 mg daily. HTN: Denies checking BP much at home, no chest pains, dizziness, or SOB. Taking Lisinopril 5 mg daily. Does try to exercise by doing light weights and some cardio. Depression: Stable. Has followed with Adult Psych, Berkley Roque. Taking Nortriptyline 50 mg BID. Asthma: Follows with Pulhenrry Ponce. Is currently using Singulair 10 mg daily, Albuterol prn, and Dulera BID. Feels the Symbicort causes a salty taste in his mouth. Pain: right ribs; felt a pop in the rib cage when he was bent over working on a tire. He states that he has achy pain, mostly with laying on the right side or bending forward when getting out of bed. Pain does radiate over into his RUQ. He did take some Ibuprofen when it first happened. Rated pain 0/10, ache, off and on, x 4-5 weeks. He did go to and had xray done, nothing acutely noted. Does not cause pain with walking or sleeping unless he lays on the right side. Pt interested in getting labs to test his sugar, PSA and liver testing. Past medical history, appointments, medications, allergies reviewed. 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 Lumbar discogenic pain syndrome 06/05/2010 Male erectile disorder Other intervertebral disc degeneration, lumbosacral region Overweight Personal history of other malignant neoplasm of skin Personal history of tobacco use Rosacea Unilateral primary osteoarthritis, right knee Previous Surgical History PAST SURGICAL HISTORY Procedure Laterality Date CATARACT EXTRACTION HX Bilateral 2019 COLONOSCOPY FLX DX W/COLLJ SPEC WHEN PFRMD 09/26/2001 Colonoscopy-repeat in COLONOSCOPY FLX DX W/COLLJ SPEC WHEN PFRMD 11/03/2011 Colonoscopy COLONOSCOPY SCRN NOT HIGH RISK 06/18/2020 EGD 06/18/2020 PAST SURGICAL HISTORY OF 10 yrs ago BCC removed by Dr.Robert Naqvi PAST SURGICAL HISTORY OF 2003 Premalignant lesion on left side nose by Dr.Robert Naqvi SKIN BIOPSY HX SKIN BX, 1 LESION Skin biopsy TONSILLECTOMY & ADENOIDECTOMY <AGE 11 Family History FAMILY HISTORY Problem Relation Age of Onset Anxiety disorder Mother Depression Mother Stroke Mother Hypertension Mother Cancer Father pancreatic cancer Patient Allergies ALLERGIES Allergen Reactions Environmental [Othe* Intolerance Current Medications Current Outpatient Medications on File Prior to Visit Medication Sig mometasone-formoterol (DULERA) 100-5 mcg/actuation inhaler Inhale 2 Puffs as instructed twice daily. predniSONE (DELTASONE) 10 mg tablet Take 4 tabs daily x 3 days, then 3 tabs x 3 days, 2 tabs x 3 days, then 1 tab x3 days with food. lisinopril (ZESTRIL, PRINIVIL) 5 mg tablet Take 1 tablet by mouth once daily. montelukast (SINGULAIR) 10 mg tablet Take 1 tablet by mouth daily at bedtime. albuterol HFA (PROVENTIL HFA, VENTOLIN HFA) 90 mcg/actuation inhaler Inhale 2 Puffs as instructed. omeprazole (PRILOSEC) 20 mg capsule TAKE 1 CAPSULE DAILY BEFORE BREAKFAST (ONE-HALF HOUR BEFORE MEAL). tamsulosin (FLOMAX) 0.4 mg TAKE 1 CAPSULE DAILY AT BEDTIME nortriptyline (PAMELOR) 50 mg capsule Take 1 capsule by mouth twice daily. polyethylene glycol 3350 (MIRALAX, GLYCOLAX) 17 gram packet Take 1 Packet by mouth twice daily. No current facility-administered medications on file prior to visit. Social History Social History Tobacco Use Smoking status: Never Smokeless tobacco: Never Tobacco comments: Non smoking childhood home. Substance Use Topics Alcohol use: No Drug use: No EXAM: BP 120/78 Pulse 68 Resp 16 Wt 87.1 kg (192 lb) BMI 29.28 kg/m General Appearance: Well appearing, alert, in no acute distress, well-hydrated, well nourished.. Lungs: Lungs clear to auscultation. No wheezing, rhonchi, rales.. Heart: RRR without murmur, gallop, or rubs. No ectopy. Musculoskeletal: Pain to right side rib area. More then likely musculoskeletal pain. Health Maintenance List ADVANCE DIRECTIVE DISCUSSION due on 05/31/2022 ANNUAL PCP TEAM CHRONIC DISEASE VISIT due on 05/13/2023 BP CONTROLLED (<130/80) due on 08/20/2023 DIABETES SCREEN due on 05/11/2025 DTAP,TDAP,TD(4 - Td or Tdap) due on 10/01/2026 SPIROMETRY Completed INFLUENZA Completed HEPATITIS C SCREENING Completed SHINGRIX VACCINE Completed COVID-19 VACCINE Completed PNEUMOCOCCAL: 65+ Completed Data reviewed None ASSESSMENT/PLAN: 1. Essential hypertension, benign - ICD9: 401.1, ICD10: I10 (primary diagnosis) - good control - Continue current medication(s) - Recommended regular aerobic exercise. - Recommend home blood pressure monitoring, to bring results in on next visit - Goal of BP <130/80 - COMP METABOLIC PANEL 2. Recurrent major depressive disorder, in full remission (HCC) - ICD9: 296.36, ICD10: F33.42 - Stable - Continue current medication regimen. - NORTRIPTYLINE 50 MG CAPSULE 3. Benign non-nodular prostatic hyperplasia with lower urinary tract symptoms - ICD9: 600.91, ICD10: N40.1 - Stable, check labs - Continue current medication regimen. - PSA/PROSTSPECAG SCRN 4. Moderate persistent asthma without complication - ICD9: 493.90, ICD10: J45.40 Mild intermittent Asthma stable - Continue current meds - Avoidance of triggers recommended - MONTELUKAST 10 MG TABLET 5. 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 Check A1c due to elevated Glucose in the past. Labs today. I agree with the Chief Complaint, ROS, and Past Histories independently gathered by the clinical academic support assistant and the remaining scribed note accurately describes my personal service to the patient. Medical Decision Making: Problems: Moderate: 2+ stable chronic illnesses Data: Unique test(s) ordered: 3+ Risk: Moderate: Drug management Medical Decision Making Level: 4 - Moderate Binu Bellamy MD The documentation for this note was completed by Natalie Youngblood Ma acting as scribe for Binu Bellamy MD. September 08, 2022 9:29 AM. Natalie Youngblood Ma documented in this encounter [facility] 08-24-2022 Miscellaneous Notes Patient phones requesting refills as follows: He would like a 3 month supply sent to his mail order pharmacy. Requested Prescriptions Pending Prescriptions Disp Refills mometasone-formoterol (DULERA) 100-5 mcg/actuation inhaler 1 Each 5 Sig: Inhale 2 Puffs as instructed twice daily. Please review and advise. Kamala Saunders Ma documented in this encounter [facility] 08-19-2022 Note HNO ID: [id number] Author: Nallely Caban RT(R) Service: Radiology Author Type: Technologist Type: Progress Notes Filed: 08/19/2022 9:29 AM Note Text: Radiology Service Progress Note PATIENT NAME: Valentina Rodríguez DATE OF SERVICE: August 19, 2022 TIME: 9:18 AM PATIENT IDENTITY VERIFICATION COMPLETED USING TWO (2) IDENTIFIERS: Name and Date of confirmed by patient verbally. FALL SCREENING: Has the patient had 2 falls in the last year or 1 fall with injury or currently using an Ambulatory Assistive Device (Walker, Cane, Wheelchair, Crutches, etc.)? No PATIENT GENDER DATA: Male PATIENT RELEVANT IMPLANT DATA REVIEWED: Yes RADIOLOGY DEPARTMENT: General X-ray: Exam(s) Completed: Rib X-Ray: Right PERIPHERAL IV DATA: Not applicable SIGNED BY: RT Carina(R) August 19, 2022 9:18 AM [facility] 08-19-2022 Note HNO ID: [id number] Author: Cuco Mathis APRN.GLOBAL SECURITY ARCHITECT Service: ? Author Type: Nurse Practitioner Type: Progress Notes Filed: 08/19/2022 10:01 AM Note Text: Subjective HPI HPI Valentina Rodríguez is a 77 year old male who presents today for CC of right rib pain. This started 10 days ago, after bending over to change tire, felt pop. Has tried otc medication for relief. Symptoms are worsened by nothing. Nonsmoker, hx of asthma/lower O2. 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 Lumbar discogenic pain syndrome 06/05/2010 Male erectile disorder Other intervertebral disc degeneration, lumbosacral region Overweight Personal history of other malignant neoplasm of skin Personal history of tobacco use Rosacea Unilateral primary osteoarthritis, right knee PAST SURGICAL HISTORY Procedure Laterality Date CATARACT EXTRACTION HX Bilateral 2019 COLONOSCOPY FLX DX W/COLLJ SPEC WHEN PFRMD 09/26/2001 Colonoscopy-repeat in COLONOSCOPY FLX DX W/COLLJ SPEC WHEN PFRMD 11/03/2011 Colonoscopy COLONOSCOPY SCRN NOT HIGH RISK 06/18/2020 EGD 06/18/2020 PAST SURGICAL HISTORY OF 10 yrs ago BCC removed by Dr.Robert Naqvi PAST SURGICAL HISTORY OF 2004 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 montelukast (SINGULAIR) 10 mg tablet Take 1 tablet by mouth daily at bedtime. albuterol HFA (PROVENTIL HFA, VENTOLIN HFA) 90 mcg/actuation inhaler Inhale 2 Puffs as instructed. omeprazole (PRILOSEC) 20 mg capsule TAKE 1 CAPSULE DAILY BEFORE BREAKFAST (ONE-HALF HOUR BEFORE MEAL). tamsulosin (FLOMAX) 0.4 mg TAKE 1 CAPSULE DAILY AT BEDTIME mometasone-formoterol (DULERA) 100-5 mcg/actuation inhaler Inhale 2 Puffs as instructed twice daily. nortriptyline (PAMELOR) 50 mg capsule Take 1 capsule by mouth twice daily. polyethylene glycol 3350 (MIRALAX, GLYCOLAX) 17 gram packet Take 1 Packet by mouth twice daily. FAMILY HISTORY Problem Relation Age of Onset Anxiety disorder Mother Depression Mother Stroke Mother Hypertension Mother Cancer Father pancreatic cancer Social History Tobacco Use Smoking status: Never Smokeless tobacco: Never Tobacco comments: Non smoking childhood home. Substance Use Topics Alcohol use: No Drug use: No ROS Objective Blood pressure 124/76, pulse 118, temperature 36.1 ?C (96.9 ?F), resp. rate 18, weight 88.9 kg (196 lb), SpO2 94 %. Physical Exam Constitutional: General: He is not in acute distress. Appearance: He is not toxic-appearing or diaphoretic. HENT: Head: Normocephalic and atraumatic. Cardiovascular: Rate and Rhythm: Normal rate and regular rhythm. Heart sounds: Normal heart sounds, S1 normal and S2 normal. Pulmonary: Effort: Pulmonary effort is normal. Breath sounds: Normal breath sounds. Chest: Neurological: Mental Status: He is alert and oriented to person, place, and time. Gait: Gait is intact. ASSESSMENT/PLAN: 1. Rib pain on right side - ICD9: 786.50, ICD10: R07.81 No new fracture on xray Try steroid Ice/heat F/u in 10 days if s/s persist. Sooner if worsen. - XR RIBS/CHEST 3V AP RIB/OBLS/CXR RIGHT IMPRESSION: Right sixth and seventh rib age indeterminate fractures, likely representing old rib fractures. Dictated by : RONI VAIL MD - PREDNISONE 10 MG TABLET Cuco Mathis APRN.GLOBAL SECURITY ARCHITECT [facility] 08-19-2022 History of Presen t illness Narrative Images from the original note were not included. Subjective HPI HPI Valentina Rodríguez is a 77 year old male who presents today for CC of right rib pain. This started 10 days ago, after bending over to change tire, felt pop. Has tried otc medication for relief. Symptoms are worsened by nothing. Nonsmoker, hx of asthma/lower O2. .Patient presents with: Rib Injury: right rib pain x 10 days PAST MEDICAL HISTORY Diagnosis Date Abdominal pain, left lower quadrant Achilles tendinitis 10/04/2012 Adjustment disorder with depressed mood Allergies Chronic low back pain 03/12/2011 Constipation Essential hypertension, benign Family history of ischemic heart disease Family history of mental disorder Family history of stroke GERD without esophagitis Hypertrophy of prostate with urinary obstruction and other lower urinary tract symptoms (LUTS) 07/05/2007 retirement (current) use of inhaled steroids Lumbar discogenic pain syndrome 06/05/2010 Male erectile disorder Other intervertebral disc degeneration, lumbosacral region Overweight Personal history of other malignant neoplasm of skin Personal history of tobacco use Rosacea Unilateral primary osteoarthritis, right knee PAST SURGICAL HISTORY Procedure Laterality Date CATARACT EXTRACTION HX Bilateral 2019 COLONOSCOPY FLX DX W/COLLJ SPEC WHEN PFRMD 09/26/2001 Colonoscopy-repeat in COLONOSCOPY FLX DX W/COLLJ SPEC WHEN PFRMD 11/03/2011 Colonoscopy COLONOSCOPY SCRN NOT HIGH RISK 06/18/2020 EGD 06/18/2020 PAST SURGICAL HISTORY OF 10 yrs ago BCC removed by Dr.Robert Naqvi PAST SURGICAL HISTORY OF 2003 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 montelukast (SINGULAIR) 10 mg tablet Take 1 tablet by mouth daily at bedtime. albuterol HFA (PROVENTIL HFA, VENTOLIN HFA) 90 mcg/actuation inhaler Inhale 2 Puffs as instructed. omeprazole (PRILOSEC) 20 mg capsule TAKE 1 CAPSULE DAILY BEFORE BREAKFAST (ONE-HALF HOUR BEFORE MEAL). tamsulosin (FLOMAX) 0.4 mg TAKE 1 CAPSULE DAILY AT BEDTIME mometasone-formoterol (DULERA) 100-5 mcg/actuation inhaler Inhale 2 Puffs as instructed twice daily. nortriptyline (PAMELOR) 50 mg capsule Take 1 capsule by mouth twice daily. polyethylene glycol 3350 (MIRALAX, GLYCOLAX) 17 gram packet Take 1 Packet by mouth twice daily. FAMILY HISTORY Problem Relation Age of Onset Anxiety disorder Mother Depression Mother Stroke Mother Hypertension Mother Cancer Father pancreatic cancer Social History Tobacco Use Smoking status: Never Smokeless tobacco: Never Tobacco comments: Non smoking childhood home. Substance Use Topics Alcohol use: No Drug use: No ROS Objective Blood pressure 124/76, pulse 118, temperature 36.1 C (96.9 F), resp. rate 18, weight 88.9 kg (196 lb), SpO2 94 %. Physical Exam Constitutional: General: He is not in acute distress. Appearance: He is not toxic-appearing or diaphoretic. HENT: Head: Normocephalic and atraumatic. Cardiovascular: Rate and Rhythm: Normal rate and regular rhythm. Heart sounds: Normal heart sounds, S1 normal and S2 normal. Pulmonary: Effort: Pulmonary effort is normal. Breath sounds: Normal breath sounds. Chest: Neurological: Mental Status: He is alert and oriented to person, place, and time. Gait: Gait is intact. ASSESSMENT/PLAN: 1. Rib pain on right side - ICD9: 786.50, ICD10: R07.81 No new fracture on xray Try steroid Ice/heat F/u in 10 days if s/s persist. Sooner if worsen. - XR RIBS/CHEST 3V AP RIB/OBLS/CXR RIGHT IMPRESSION: Right sixth and seventh rib age indeterminate fractures, likely representing old rib fractures. Dictated by : RONI VAIL MD - PREDNISONE 10 MG TABLET Cuco Mathis APRN.GLOBAL SECURITY ARCHITECT documented in this encounter [facility] 07-09-2022 Note HNO ID: [id number] Author: Genie Ponce MD Service: ? Author Type: Physician Type: Progress Notes Filed: 07/09/2022 4:16 PM Note Text: . [facility] [place] Note Patient name: Valentina Rodríguez PCP: Binu Bellamy MD CC: Follow-up asthma HPI: Valentina Rodríguez 77 year old male never smoker with PMH significant for GERD, BPH, HTN, allergies previously treated with IT, depression, eventration of diaphragm, and chronic cough. DAMARI negative, referred to Dr. Roca for VCD but was started on ICS by PCP which completely resolved his cough. He was well until he developed COVID in May 2021 which resulted in severe cough and SOB. ICS, oral steroids and antibiotics had not been helpful. Evaluation for VTE negative. Changed inhaled therapy to Dulera. States he is doing well. Was ill over the holidays with some type of viral illness, non-flu or COVID. Took three weeks to get over, was coughing and more SOB. Dry cough. Had to use his albuterol. Currently denies any cough, shortness of breath, wheezing or chest pain. No current need for his albuterol. ASTHMA CONTROL TEST Date: 07/09/2022 In the last 4 weeks, how much of the time did your asthma keep you from getting as much done at work or home that you wanted to do? None of the time (5) In the last 4 weeks, how often have you had shortness of breath? Once or twice per week (4) In the last 4 weeks, how often did your asthma symptoms (wheezing, coughing, shortness of breath, chest tightness or pain) wake you up at night or earlier than usual? Not at all (5) In the last 4 weeks, how often have you used your rescue inhaler or nebulizer medication (such as Albuterol, Proventil, Ventolin, Maxair, Xoponex, or Primatene Mist)? Once a week or less (4) In the last 4 weeks, how would you rate your asthma control? Well controlled (4) Total: more than 20 DATA: SERVICE DATE: 03/11/2022 SERVICE TIME: 9:13 AM Oral Exhaled Nitric Oxide measurement: 22.0 (ppb) PFT: Review pulmonary function test shows small airways obstruction and minimal air trapping Labs: Component Ref Range AND Units 2 mo ago Orange Tree IgE <0.35 kU/l <0.35 Orange Tree Class Class 0 Class 0 Eddie Grass IgE <0.35 kU/l 0.47 High Eddie Grass Class Class 0 Class 1 Abnormal Fabby Grass IgE <0.35 kU/l 0.53 High Fabby Grass Class Class 0 Class 1 Abnormal Short Ragweed IgE <0.35 kU/l 1.11 High Short Ragweed Class Class 0 Class 2 Abnormal Maloney's Quarters IgE <0.35 kU/l 0.36 High Maloney's Quarters Class Class 0 Class 1 Abnormal Cat Dander IgE <0.35 kU/l <0.35 Cat Dander Class Class 0 Class 0 Dog Dander IgE <0.35 kU/l <0.35 Dog Dander Class Class 0 Class 0 Cladosporium herbarum IgE <0.35 kU/l <0.35 Cladosporium herbarum Class Class 0 Class 0 Alternaria tenuis IgE <0.35 kU/l <0.35 Alternaria tenuis Class Class 0 Class 0 Dermatophagoides Farinae IgE <0.35 kU/l <0.35 Dermatophagoides Farinae Class Class 0 Class 0 Component Ref Range AND Units 2 mo ago IgE <114.0 kU/l 21.8 Component Ref Range AND Units 2 mo ago (04/10/22) Abs Eosin <0.46 k/uL 0.05 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 montelukast (SINGULAIR) 10 mg tablet Take 1 tablet by mouth daily at bedtime. albuterol HFA (PROVENTIL HFA, VENTOLIN HFA) 90 mcg/actuation inhaler Inhale 2 Puffs as instructed. omeprazole (PRILOSEC) 20 mg capsule TAKE 1 CAPSULE DAILY BEFORE BREAKFAST (ONE-HALF HOUR BEFORE MEAL). tamsulosin (FLOMAX) 0.4 mg TAKE 1 CAPSULE DAILY AT BEDTIME mometasone-formoterol (DULERA) 100-5 mcg/actuation inhaler Inhale 2 Puffs as instructed twice daily. nortriptyline (PAMELOR) 50 mg capsule Take 1 capsule by mouth twice daily. polyethylene glycol 3350 (MIRALAX, GLYCOLAX) 17 gram packet Take 1 Packet by mouth twice daily. Social History Tobacco Use Smoking status: Never Smokeless tobacco: Never Tobacco comments: Non smoking childhood home. Substance Use Topics Alcohol use: No Drug (more content not included)... [facility] 07-09-2022 History of Presen t illness Narrative Images from the original note were not included. . [facility] [place] Note Patient name: Valentina Rodríguez PCP: Binu Bellamy MD CC: Follow-up asthma HPI: Valentina Rodríguez 77 year old male never smoker with PMH significant for GERD, BPH, HTN, allergies previously treated with IT, depression, eventration of diaphragm, and chronic cough. DAMARI negative, referred to Dr. Roca for VCD but was started on ICS by PCP which completely resolved his cough. He was well until he developed COVID in May 2021 which resulted in severe cough and SOB. ICS, oral steroids and antibiotics had not been helpful. Evaluation for VTE negative. Changed inhaled therapy to Dulera. States he is doing well. Was ill over the holidays with some type of viral illness, non-flu or COVID. Took three weeks to get over, was coughing and more SOB. Dry cough. Had to use his albuterol. Currently denies any cough, shortness of breath, wheezing or chest pain. No current need for his albuterol. ASTHMA CONTROL TEST Date: 07/09/2022 In the last 4 weeks, how much of the time did your asthma keep you from getting as much done at work or home that you wanted to do? None of the time (5) In the last 4 weeks, how often have you had shortness of breath? Once or twice per week (4) In the last 4 weeks, how often did your asthma symptoms (wheezing, coughing, shortness of breath, chest tightness or pain) wake you up at night or earlier than usual? Not at all (5) In the last 4 weeks, how often have you used your rescue inhaler or nebulizer medication (such as Albuterol, Proventil, Ventolin, Maxair, Xoponex, or Primatene Mist)? Once a week or less (4) In the last 4 weeks, how would you rate your asthma control? Well controlled (4) Total: more than 20 DATA: SERVICE DATE: 03/11/2022 SERVICE TIME: 9:13 AM Oral Exhaled Nitric Oxide measurement: 22.0 (ppb) PFT: Review pulmonary function test shows small airways obstruction and minimal air trapping Labs: Component Ref Range & Units 2 mo ago Orange Tree IgE <0.35 kU/l <0.35 Orange Tree Class Class 0 Class 0 Eddie Grass IgE <0.35 kU/l 0.47 High Eddie Grass Class Class 0 Class 1 Abnormal Fabby Grass IgE <0.35 kU/l 0.53 High Fabby Grass Class Class 0 Class 1 Abnormal Short Ragweed IgE <0.35 kU/l 1.11 High Short Ragweed Class Class 0 Class 2 Abnormal Maloney's Quarters IgE <0.35 kU/l 0.36 High Maloney's Quarters Class Class 0 Class 1 Abnormal Cat Dander IgE <0.35 kU/l <0.35 Cat Dander Class Class 0 Class 0 Dog Dander IgE <0.35 kU/l <0.35 Dog Dander Class Class 0 Class 0 Cladosporium herbarum IgE <0.35 kU/l <0.35 Cladosporium herbarum Class Class 0 Class 0 Alternaria tenuis IgE <0.35 kU/l <0.35 Alternaria tenuis Class Class 0 Class 0 Dermatophagoides Farinae IgE <0.35 kU/l <0.35 Dermatophagoides Farinae Class Class 0 Class 0 Component Ref Range & Units 2 mo ago IgE <114.0 kU/l 21.8 Component Ref Range & Units 2 mo ago (04/10/22) Abs Eosin <0.46 k/uL 0.05 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 montelukast (SINGULAIR) 10 mg tablet Take 1 tablet by mouth daily at bedtime. albuterol HFA (PROVENTIL HFA, VENTOLIN HFA) 90 mcg/actuation inhaler Inhale 2 Puffs as instructed. omeprazole (PRILOSEC) 20 mg capsule TAKE 1 CAPSULE DAILY BEFORE BREAKFAST (ONE-HALF HOUR BEFORE MEAL). tamsulosin (FLOMAX) 0.4 mg TAKE 1 CAPSULE DAILY AT BEDTIME mometasone-formoterol (DULERA) 100-5 mcg/actuation inhaler Inhale 2 Puffs as instructed twice daily. nortriptyline (PAMELOR) 50 mg capsule Take 1 capsule by mouth twice daily. polyethylene glycol 3350 (MIRALAX, GLYCOLAX) 17 gram packet Take 1 Packet by mouth twice daily. Social History Tobacco Use Smoking status: Never Smokeless tobacco: Never Tobacco comments: Non smoking childhood home. Substance Use Topics Alcohol use: No Drug use: No PMH, Social history, family history and surgical history reviewed and updated in EMR REVIEW OF SYSTEMS: CONSTITUTIONAL: No fevers, chills, nightsweats, unintended weight loss HEENT: Denies allergy symptoms. EYES: No diplopia or blurry vision. CARDIOVASCULAR: No chest pain, dyspnea, palpitations, orthopnea, PND, edema. PULM: See HPI GI: No dysphagia/odynophagia, problematic reflux INTEGUMENTARY: No new skin changes or rashes PHYSICAL EXAMINATION: BP 126/65 Pulse 92 Wt 197 lb (89.4kg) SpO2 94% General Appearance: Elderly male, NAD Skin: Skin color, texture, turgor normal, no suspicious rashes or lesions. No psoriasis Head: Normocephalic, no masses, lesions, tenderness or abnormalities. Eyes: Sclera, conjunctiva normal Oropharynx: Normal dentition, no oral lesions or thrush Neck: No JVD, no masses, no adenopathy Lungs: Normal to percussion, nonlabored, no wheezes or crackles Heart: Regular rate rhythm, no murmurs gallops Extremities: No edema clubbing Assessment/Plan: 1. Cough variant asthma -Currently controlled. Will continue on Dulera with as needed albuterol. RTC 6 months or sooner with problems Genie Ponce MD [facility] [place] documented in this encounter [facility] 05-13-2022 Note HNO ID: [id number] Author: Jessica Barraza APRN.GLOBAL SECURITY ARCHITECT Service: ? Author Type: Nurse Practitioner Type: Progress Notes Filed: 05/13/2022 9:44 AM Note Text: This is a 77 year old male who presents today with: Patient presents with: Follow Up: From . coughing and fatique HISTORY OF PRESENT ILLNESS: Valentina Rodríguez is a 77 year old male. Patient presents with: Follow Up: From . coughing and fatique Here in the office for follow up. Has been seen several times in family medicine and express care for cold/URI symptoms. Was seen 05/10/2022, chest xray questionable opacities. Covid/Flu testing has been negative. Finished 5 days of doxycycline and prednisone. Refers that he was weak and got concerned. Symptoms improved with medication. Ongoing fatigue from cough and SOB. Cough is dry. Not using OTC cold and cough medication. No fever, chills, or sore throat. Denies waking up at night with cough or SOB. Usually coughing with exertion but improves with rest. No wheezing or chest pain. History of asthma, taking Dulera and albuterol. Next appt with Pulmonology in July. 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 Male erectile disorder Other intervertebral disc degeneration, lumbosacral region Overweight Personal history of other malignant neoplasm of skin Personal history of tobacco use Rosacea Unilateral primary osteoarthritis, right knee PAST SURGICAL HISTORY Procedure Laterality Date CATARACT EXTRACTION HX Bilateral 2019 COLONOSCOPY FLX DX W/COLLJ SPEC WHEN PFRMD 09/26/2001 Colonoscopy-repeat in COLONOSCOPY FLX DX W/COLLJ SPEC WHEN PFRMD 11/03/2011 Colonoscopy COLONOSCOPY SCRN NOT HIGH RISK 06/18/2020 EGD 06/18/2020 PAST SURGICAL HISTORY OF 10 yrs ago BCC removed by Dr.Robert Naqvi PAST SURGICAL HISTORY OF 2003 Premalignant lesion on left side nose by Dr.Robert Naqvi SKIN BIOPSY HX SKIN BX, 1 LESION Skin biopsy TONSILLECTOMY AND ADENOIDECTOMY ALLERGIES Environmental [Other] MEDICATIONS Current Outpatient Medications Medication Sig albuterol HFA (PROVENTIL HFA, VENTOLIN HFA) 90 mcg/actuation inhaler Inhale 2 Puffs as instructed. omeprazole (PRILOSEC) 20 mg capsule TAKE 1 CAPSULE DAILY BEFORE BREAKFAST (ONE-HALF HOUR BEFORE MEAL). tamsulosin (FLOMAX) 0.4 mg TAKE 1 CAPSULE DAILY AT BEDTIME mometasone-formoterol (DULERA) 100-5 mcg/actuation inhaler Inhale 2 Puffs as instructed twice daily. nortriptyline (PAMELOR) 50 mg capsule Take 1 capsule by mouth twice daily. lisinopril (ZESTRIL, PRINIVIL) 5 mg tablet Take 1 tablet by mouth once daily. polyethylene glycol 3350 (MIRALAX, GLYCOLAX) 17 gram packet Take 1 Packet by mouth twice daily. No current facility-administered medications for this visit. FAMILY HISTORY Problem Relation Age of Onset Anxiety disorder Mother Depression Mother Stroke Mother Hypertension Mother Cancer Father pancreatic cancer Social History Tobacco Use Smoking status: Never Smokeless tobacco: Never Tobacco comments: Non smoking childhood home. Substance Use Topics Alcohol use: No Drug use: No REVIEW OF SYSTEMS GENERAL: + Fatigue HEENT: Negative for frequent or significant headaches, No changes in hearing or vision. NECK: Negative for lumps, goiter, pain and significant neck swelling RESPIRATORY: + SOB/Cough CARDIOVASCULAR: Negative for chest pain, leg swelling, orthopnea, or palpitations GI: No nausea, vomiting, or diarrhea/constipation. No hematochezia/melena. No heartburn or reflux symptoms. : No history of dysuria, frequency or incontinence MUSCULOSKELETAL: Negative for joint pain or swelling. SKIN: Negative for lesions, rash, and itching ENDOCRINE: Negative for cold or heat intolerance, polyuria, polydipsia and goiter NEURO: No history of headaches, syncope, paralysis, seizures or tremors MOOD: Negative for depression, anxiety, or suicidal ideation. EXAM: BP 114/70 Pulse 98 Resp 16 Wt 88.5 kg (195 lb) SpO2 97% BMI 29.74 kg/m? PHYSICAL EXAM: General Appearance: Well appearing, alert, in no acute distress, well-hydrated, well nourished. Skin: Skin color, texture, turgor normal, no suspicious rashes or lesions. Head: Normocephalic, no masses, lesions, tenderness or abnormalities. Eyes: Anicteric sclera. Pupils are equally round and reactive to light. Extraocular movements are intact. Ears: External ears nor (more content not included)... [facility] 05-13-2022 Instructions Jessica Barraza APRN.CNP - 05/13/2022 9:10 AM EST Continue supportive care at home. May use over the counter cold and cough medication as needed. Stay well hydrated. May use Tessalon Perles three times daily for cough. Get lab completed. Start Singulair 10 mg at bedtime. Get repeat chest xray in 1 month. Follow up pending test results or sooner as needed. documented in this encounter [facility] 05-13-2022 History of Presen t illness Narrative This is a 77 year old male who presents today with: Patient presents with: Follow Up: From . coughing and fatique HISTORY OF PRESENT ILLNESS: Valentina Rodríguez is a 77 year old male. Patient presents with: Follow Up: From . coughing and fatique Here in the office for follow up. Has been seen several times in family medicine and express care for cold/URI symptoms. Was seen 05/10/2022, chest xray questionable opacities. Covid/Flu testing has been negative. Finished 5 days of doxycycline and prednisone. Refers that he was weak and got concerned. Symptoms improved with medication. Ongoing fatigue from cough and SOB. Cough is dry. Not using OTC cold and cough medication. No fever, chills, or sore throat. Denies waking up at night with cough or SOB. Usually coughing with exertion but improves with rest. No wheezing or chest pain. History of asthma, taking Dulera and albuterol. Next appt with Pulmonology in July. 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 Male erectile disorder Other intervertebral disc degeneration, lumbosacral region Overweight Personal history of other malignant neoplasm of skin Personal history of tobacco use Rosacea Unilateral primary osteoarthritis, right knee PAST SURGICAL HISTORY Procedure Laterality Date CATARACT EXTRACTION HX Bilateral 2019 COLONOSCOPY FLX DX W/COLLJ SPEC WHEN PFRMD 09/26/2001 Colonoscopy-repeat in COLONOSCOPY FLX DX W/COLLJ SPEC WHEN PFRMD 11/03/2011 Colonoscopy COLONOSCOPY SCRN NOT HIGH RISK 06/18/2020 EGD 06/18/2020 PAST SURGICAL HISTORY OF 10 yrs ago BCC removed by Dr.Robert Naqvi PAST SURGICAL HISTORY OF 2003 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 omeprazole (PRILOSEC) 20 mg capsule TAKE 1 CAPSULE DAILY BEFORE BREAKFAST (ONE-HALF HOUR BEFORE MEAL). tamsulosin (FLOMAX) 0.4 mg TAKE 1 CAPSULE DAILY AT BEDTIME mometasone-formoterol (DULERA) 100-5 mcg/actuation inhaler Inhale 2 Puffs as instructed twice daily. nortriptyline (PAMELOR) 50 mg capsule Take 1 capsule by mouth twice daily. lisinopril (ZESTRIL, PRINIVIL) 5 mg tablet Take 1 tablet by mouth once daily. polyethylene glycol 3350 (MIRALAX, GLYCOLAX) 17 gram packet Take 1 Packet by mouth twice daily. No current facility-administered medications for this visit. FAMILY HISTORY Problem Relation Age of Onset Anxiety disorder Mother Depression Mother Stroke Mother Hypertension Mother Cancer Father pancreatic cancer Social History Tobacco Use Smoking status: Never Smokeless tobacco: Never Tobacco comments: Non smoking childhood home. Substance Use Topics Alcohol use: No Drug use: No REVIEW OF SYSTEMS GENERAL: + Fatigue HEENT: Negative for frequent or significant headaches, No changes in hearing or vision. NECK: Negative for lumps, goiter, pain and significant neck swelling RESPIRATORY: + SOB/Cough CARDIOVASCULAR: Negative for chest pain, leg swelling, orthopnea, or palpitations GI: No nausea, vomiting, or diarrhea/constipation. No hematochezia/melena. No heartburn or reflux symptoms. : No history of dysuria, frequency or incontinence MUSCULOSKELETAL: Negative for joint pain or swelling. SKIN: Negative for lesions, rash, and itching ENDOCRINE: Negative for cold or heat intolerance, polyuria, polydipsia and goiter NEURO: No history of headaches, syncope, paralysis, seizures or tremors MOOD: Negative for depression, anxiety, or suicidal ideation. EXAM: BP 114/70 Pulse 98 Resp 16 Wt 88.5 kg (195 lb) SpO2 97% BMI 29.74 kg/m PHYSICAL EXAM: General Appearance: Well appearing, alert, in no acute distress, well-hydrated, well nourished. Skin: Skin color, texture, turgor normal, no suspicious rashes or lesions. Head: Normocephalic, no masses, lesions, tenderness or abnormalities. Eyes: Anicteric sclera. Pupils are equally round and reactive to light. Extraocular movements are intact. Ears: External ears normal, canals clear. TM's pearly cavazos. Nose/Sinuses: Nares normal, septum midline, mucosa normal, no drainage or sinus tenderness. Oropharynx: Lips, mucosa, and tongue normal, teeth and gums normal, oropharynx normal. Neck: Supple, no adenopathy; thyroid symmetric, normal size, no bruits. Lungs: Lungs clear to auscultation. No wheezing, rhonchi, rales. Heart: RRR without murmur, gallop, or rubs. No ectopy. Extremities: No deformities, edema, skin discoloration, clubbing or cyanosis. Good capillary refill. Peripheral Pulses: Normal, Capillary refill <2secs, strong peripheral pulses, Pulses palpable. Neurologic: Gait normal. Sensation grossly intact. ASSESSMENT/PLAN: 1. SOB (shortness of breath) - ICD9: 786.05, ICD10: R06.02 (primary diagnosis) - Get lab completed per patient request. - Repeat chest xray in 1 month. - Concerns symptoms may be related to asthma. - NT PRO BNP - XR CHEST 2V FRONTAL/LAT 2. Acute cough - ICD9: 786.2, ICD10: R05.1 - May use Tessalon Perles or [id number] cold and cough medication as needed for cough. - BENZONATATE 100 MG CAPSULE - XR CHEST 2V FRONTAL/LAT 3. Moderate persistent asthma without complication - ICD9: 493.90, ICD10: J45.40 Moderate persistent Asthma acute excacerbation no respiratory distress - Continue current meds - Begin Singulair 10 mg daily - Continue to use inhalers as prescribed. - Keep scheduled appointment with pulmonology. - Avoidance of triggers recommended - MONTELUKAST 10 MG TABLET Follow-up pending test results or sooner as needed. Discussed treatment plan and patient voices understanding. Patient's questions answered appropriately. Medications and potential side effects were discussed and patient voices understanding. Jessica Barraza APRN.LEAH This note was partially generated using [employer] voice recognition system. Note was reviewed for accuracy. There may be minor misspellings or grammar miscues with [employer] voice recognition. documented in this encounter [facility] 05-11-2022 Note HNO ID: [id number] Author: RT Ozzie(R) Service: ? Author Type: Tumbler Dyeing Machine Operator Type: Progress Notes Filed: 05/11/2022 9:09 AM Note Text: Radiology Service Progress Note PATIENT NAME: Valentina Rodríguez DATE OF SERVICE: May 11, 2022 TIME: 8:58 AM PATIENT IDENTITY VERIFICATION COMPLETED USING TWO (2) IDENTIFIERS: Name and Date of confirmed by patient verbally. FALL SCREENING: Has the patient had 2 falls in the last year or 1 fall with injury or currently using an Ambulatory Assistive Device (Walker, Cane, Wheelchair, Crutches, etc.)? No PATIENT GENDER DATA: Male PATIENT RELEVANT IMPLANT DATA REVIEWED: Yes RADIOLOGY DEPARTMENT: General X-ray: Exam(s) Completed: Chest X-Ray PERIPHERAL IV DATA: Not applicable SIGNED BY: Mary Merritt, RT(R) May 11, 2022 8:58 AM [facility] 05-10-2022 Influenza virus A and B RNA and SARS-CoV-2 (COVID-19) N gene panel GRACE+probe (Resp) COVID 19 RESULT: SARS-CoV-2 (Agent of COVID-19) Not Detected by RT-PCR or equivalent method. angelica [id number] (ALFREDO)_EUA This test was developed and its performance characteristics determined by [facility]'s [facility] [place]. This test has been authorized by FDA under an Emergency Use Authorization (EUA). This test has been validated in accordance with the FDA's Guidance Document Policy for Diagnostics Testing in Laboratories Certified to Perform High Complexity Testing under CLIA prior to Emergency use Authorization for Coronavirus Disease 2019 during the Public Health Emergency issued on July 29, 2019. Test performed by [facility], [facility] [place], [address] [place] [address]. 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 Neoplasm of uncertain behavior of skin 9 06/12/2014 Shortness of breath 09/01/2006 06/12/2014 Abdominal pain, generalized 03/19/2006 01/1 07/2014 documented as of this encounter (statuses as of 09/04/2021) [facility] History of Past illness Narrative* Problem Noted Date Resolved Date Shortness of breath 02/12/2016 06/29/2016 Achilles tendinitis 10/04/2012 04/17/2015 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 Neoplasm of uncertain behavior of skin 9 06/12/2014 Shortness of breath 09/01/2006 06/12/2014 Abdominal pain, generalized 03/19/200605/31 documented as of this encounter (statuses as of 12/03/2021) [facility] History of Past illness Narrative* Problem Noted Date Resolved Date Shortness of breath 02/12/2016 06/29/2016 Achilles tendinitis 10/04/2012 04/17/2015 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 Neoplasm of uncertain behavior of skin 9 06/12/2014 Shortness of breath 09/01/2006 06/12/2014 Abdominal pain, generalized 03/19/200605/31 documented as of this encounter (statuses as of 02/06/2022) [facility] History of Past illness Narrative* Problem Noted Date Resolved Date Shortness of breath 02/12/2016 06/29/2016 Achilles tendinitis 10/04/2012 04/17/2015 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 Neoplasm of uncertain behavior of skin 9 06/12/2014 Shortness of breath 09/01/2006 06/12/2014 Abdominal pain, generalized 03/19/200605/31 documented as of this encounter (statuses as of 02/15/2022) [facility] History of Past illness Narrative* Problem Noted Date Resolved Date Shortness of breath 02/12/2016 06/29/2016 Achilles tendinitis 10/04/2012 04/17/2015 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 Neoplasm of uncertain behavior of skin 9 06/12/2014 Shortness of breath 09/01/2006 06/12/2014 Abdominal pain, generalized 03/19/200605/31 documented as of this encounter (statuses as of 02/16/2022) [facility] History of Past illness Narrative* Problem Noted Date Resolved Date Shortness of breath 02/12/2016 06/29/2016 Achilles tendinitis 10/04/2012 04/17/2015 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 Neoplasm of uncertain behavior of skin 9 06/12/2014 Shortness of breath 09/01/2006 06/12/2014 Abdominal pain, generalized 03/19/200605/31 documented as of this encounter (statuses as of 02/23/2022) [facility] of Past illness Narrative* Problem Noted Date Resolved Date Shortness of breath 02/12/2016 06/29/2016 Achilles tendinitis 10/04/2012 04/17/2015 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 Neoplasm of uncertain behavior of skin 9 06/12/2014 Shortness of breath 09/01/2006 06/12/2014 Abdominal pain, generalized 03/19/200605/31 documented as of this encounter (statuses as of 02/25/2022) [facility] of Past illness Narrative* Problem Noted Date Resolved Date Shortness of breath 02/12/2016 06/29/2016 Achilles tendinitis 10/04/2012 04/17/2015 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 Neoplasm of uncertain behavior of skin 9 06/12/2014 Shortness of breath 09/01/2006 06/12/2014 Abdominal pain, generalized 03/19/200605/31 documented as of this encounter (statuses as of 02/27/2022) [facility] of Past illness Narrative* Problem Noted Date Resolved Date Shortness of breath 02/12/2016 06/29/2016 Achilles tendinitis 10/04/2012 04/17/2015 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 Neoplasm of uncertain behavior of skin 9 06/12/2014 Shortness of breath 09/01/2006 06/12/2014 Abdominal pain, generalized 03/19/200605/31 documented as of this encounter (statuses as of 03/11/2022) [facility] of Past illness Narrative* Problem Noted Date Resolved Date Shortness of breath 02/12/2016 06/29/2016 Achilles tendinitis 10/04/2012 04/17/2015 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 Neoplasm of uncertain behavior of skin 9 06/12/2014 Shortness of breath 09/01/2006 06/12/2014 Abdominal pain, generalized 03/19/200605/31 documented as of this encounter (statuses as of 03/12/2022) [facility] of Past illness Narrative* Problem Noted Date Resolved Date Shortness of breath 02/12/2016 06/29/2016 Achilles tendinitis 10/04/2012 04/17/2015 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 Neoplasm of uncertain behavior of skin 9 06/12/2014 Shortness of breath 09/01/2006 06/12/2014 Abdominal pain, generalized 03/19/200605/31 documented as of this encounter (statuses as of 03/12/2022) [facility] of Past [facility] Narrative* Problem Noted Date Resolved Date Shortness of breath 02/12/2016 06/29/2016 Achilles tendinitis 10/04/2012 04/17/2015 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 Neoplasm of uncertain behavior of skin 9 06/12/2014 Shortness of breath 09/01/2006 06/12/2014 Abdominal pain, generalized 03/19/200605/31 documented as of this encounter (statuses as of 03/16/2022) [facility] of [facility] Narrative* Problem Noted Date Resolved Date Shortness of breath 02/12/2016 06/29/2016 Achilles tendinitis 10/04/2012 04/17/2015 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 Neoplasm of uncertain behavior of skin 9 06/12/2014 Shortness of breath 09/01/2006 06/12/2014 Abdominal pain, generalized 03/19/200605/31 documented as of this encounter (statuses as of 03/17/2022) [facility] of Past [facility] Narrative* Problem Noted Date Resolved Date Shortness of breath 02/12/2016 06/29/2016 Achilles tendinitis 10/04/2012 04/17/2015 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 Neoplasm of uncertain behavior of skin 9 06/12/2014 Shortness of breath 09/01/2006 06/12/2014 Abdominal pain, generalized 03/19/200605/31 documented as of this encounter (statuses as of 03/19/2022) [facility] of Past [facility] Narrative* Problem Noted Date Resolved Date Shortness of breath 02/12/2016 06/29/2016 Achilles tendinitis 10/04/2012 04/17/2015 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 Neoplasm of uncertain behavior of skin 9 06/12/2014 Shortness of breath 09/01/2006 06/12/2014 Abdominal pain, generalized 03/19/200605/31 documented as of this encounter (statuses as of 03/20/2022) [facility] of [facility] Narrative* Problem Noted Date Resolved Date Shortness of breath 02/12/2016 06/29/2016 Achilles tendinitis 10/04/2012 04/17/2015 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 Neoplasm of uncertain behavior of skin 9 06/12/2014 Shortness of breath 09/01/2006 06/12/2014 Abdominal pain, generalized 03/19/200605/31 documented as of this encounter (statuses as of 04/01/2022) [facility] Narrative* Problem Noted Date Resolved Date Shortness of breath 02/12/2016 06/29/2016 Achilles tendinitis 10/04/2012 04/17/2015 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 Neoplasm of uncertain behavior of skin 9 06/12/2014 Shortness of breath 09/01/2006 06/12/2014 Abdominal pain, generalized 03/19/200605/31 documented as of this encounter (statuses as of 04/10/2022) [facility] Narrative* Problem Noted Date Resolved Date Shortness of breath 02/12/2016 06/29/2016 Achilles tendinitis 10/04/2012 04/17/2015 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 Neoplasm of uncertain behavior of skin 9 06/12/2014 Shortness of breath 09/01/2006 06/12/2014 Abdominal pain, generalized 03/19/200605/31 documented as of this encounter (statuses as of 04/30/2022) [facility] Narrative* Problem Noted Date Resolved Date Shortness of breath 02/12/2016 06/29/2016 Achilles tendinitis 10/04/2012 04/17/2015 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 Neoplasm of uncertain behavior of skin 9 06/12/2014 Shortness of breath 09/01/2006 06/12/2014 Abdominal pain, generalized 03/19/200605/31 documented as of this encounter (statuses as of 05/03/2022) [facility] Narrative* Problem Noted Date Resolved Date Shortness of breath 02/12/2016 06/29/2016 Achilles tendinitis 10/04/2012 04/17/2015 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 Neoplasm of uncertain behavior of skin 9 06/12/2014 Shortness of breath 09/01/2006 06/12/2014 Abdominal pain, generalized 03/19/200605/31 documented as of this encounter (statuses as of 05/10/2022) [facility] Narrative* Problem Noted Date Resolved Date Shortness of breath 02/12/2016 06/29/2016 Achilles tendinitis 10/04/2012 04/17/2015 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 Neoplasm of uncertain behavior of skin 9 06/12/2014 Shortness of breath 09/01/2006 06/12/2014 Abdominal pain, generalized 03/19/200605/31 documented as of this encounter (statuses as of 05/13/2022) [facility] Narrative* Problem Noted Date Resolved Date Shortness of breath 02/12/2016 06/29/2016 Achilles tendinitis 10/04/2012 04/17/2015 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 Neoplasm of uncertain behavior of skin 9 06/12/2014 Shortness of breath 09/01/2006 06/12/2014 Abdominal pain, generalized 03/19/200605/31 documented as of this encounter (statuses as of 07/09/2022) [facility] of [facility] Narrative* Problem Noted Date Resolved Date Shortness of breath 02/12/2016 06/29/2016 Achilles tendinitis 10/04/2012 04/17/2015 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 Neoplasm of uncertain behavior of skin 9 06/12/2014 Shortness of breath 09/01/2006 06/12/2014 Abdominal pain, generalized 03/19/200605/31 documented as of this encounter (statuses as of 08/19/2022) [facility]arrative* Problem Noted Date Resolved Date Shortness of breath 02/12/2016 06/29/2016 Achilles tendinitis 10/04/2012 04/17/2015 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 Neoplasm of uncertain behavior of skin 9 06/12/2014 Shortness of breath 09/01/2006 06/12/2014 Abdominal pain, generalized 03/19/200605/31 documented as of this encounter (statuses as of 08/24/2022) [facility] History of Past illness Narrative* Problem Noted Date Resolved Date Shortness of breath 02/12/2016 06/29/2016 Achilles tendinitis 10/04/2012 04/17/2015 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 Neoplasm of uncertain behavior of skin 9 06/12/2014 Shortness of breath 09/01/2006 06/12/2014 Abdominal pain, generalized 03/19/200605/31 documented as of this encounter (statuses as of 09/08/2022) [facility] History of Past illness Narrative* Problem Noted Date Resolved Date Shortness of breath 02/12/2016 06/29/2016 Achilles tendinitis 10/04/2012 04/17/2015 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 Neoplasm of uncertain behavior of skin 9 06/12/2014 Shortness of breath 09/01/2006 06/12/2014 Abdominal pain, generalized 03/19/200605/31 documented as of this encounter (statuses as of 09/18/2022) [facility] History of Past illness Narrative* Problem Noted Date Diagnosed Date Resolved Date Shortness of breath 02/12/2016 06/29/19 17 Achilles tendinitis 10/04/2012 04/17/20 15 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 03/25/20 09 06/12/2014 Neoplasm of uncertain behavior of skin 01/23/2009 06/12/2014 Shortness of breath 09/01/2006 06/12/19 15 Abdominal pain, generalized 03/19/2006 06/12/2014 documented as of this encounter (statuses as of 12/07/2022) [facility] History of Past illness Narrative* Problem Noted Date Diagnosed Date Resolved Date Shortness of breath 02/12/2016 06/29/19 17 Achilles tendinitis 10/04/2012 04/17/20 15 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 03/25/20 09 06/12/2014 Neoplasm of uncertain behavior of skin 01/23/2009 06/12/2014 Shortness of breath 09/01/2006 06/12/19 15 Abdominal pain, generalized 03/19/2006 06/12/2014 documented as of this encounter (statuses as of 12/10/2022) [facility] History of Past illness Narrative* Problem Noted Date Diagnosed Date Resolved Date Shortness of breath 02/12/2016 06/29/19 17 Achilles tendinitis 10/04/2012 04/17/20 15 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 03/25/20 09 06/12/2014 Neoplasm of uncertain behavior of skin 01/23/2009 06/12/2014 Shortness of breath 09/01/2006 06/12/19 15 Abdominal pain, generalized 03/19/2006 06/12/2014 documented as of this encounter (statuses as of 12/10/2022) [facility] of Past illness Narrative* Problem Noted Date Diagnosed Date Resolved Date Shortness of breath 02/12/2016 06/29/19 17 Achilles tendinitis 10/04/2012 04/17/20 15 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 03/25/20 09 06/12/2014 Neoplasm of uncertain behavior of skin 01/23/2009 06/12/2014 Shortness of breath 09/01/2006 06/12/19 15 Abdominal pain, generalized 03/19/2006 06/12/2014 documented as of this encounter (statuses as of 12/11/2022) [facility] History of Past illness Narrative* Problem Noted Date Diagnosed Date Resolved Date Shortness of breath 02/12/2016 06/29/19 17 Achilles tendinitis 10/04/2012 04/17/20 15 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 03/25/20 09 06/12/2014 Neoplasm of uncertain behavior of skin 01/23/2009 06/12/2014 Shortness of breath 09/01/2006 06/12/19 15 Abdominal pain, generalized 03/19/2006 06/12/2014 documented as of this encounter (statuses as of 12/28/2022) [facility] History of Past illness Narrative* Problem Noted Date Diagnosed Date Resolved Date Shortness of breath 02/12/2016 06/29/19 17 Achilles tendinitis 10/04/2012 04/17/20 15 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 03/25/20 09 06/12/2014 Neoplasm of uncertain behavior of skin 01/23/2009 06/12/2014 Shortness of breath 09/01/2006 06/12/19 15 Abdominal pain, generalized 03/19/2006 06/12/2014 documented as of this encounter (statuses as of 01/21/2023) [facility] History of Past illness Narrative* Problem Noted Date Diagnosed Date Resolved Date Shortness of breath 02/12/2016 06/29/19 17 Achilles tendinitis 10/04/2012 04/17/20 15 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 03/25/2006/12/2014 Neoplasm of uncertain behavior of skin 01/23/2009 06/12/2014 Shortness of breath 09/01/2006 06/12/19 15 Abdominal pain, generalized 03/19/2006 06/12/2014 documented as of this encounter (statuses as of 03/09/2023) [facility] History of Past illness Narrative* Problem Noted Date Diagnosed Date Resolved Date Shortness of breath 02/12/2016 06/29/19 17 Achilles tendinitis 10/04/2012 04/17/20 15 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 03/25/20 09 06/12/2014 Neoplasm of uncertain behavior of skin 01/23/2009 06/12/2014 Shortness of breath 09/01/2006 06/12/19 15 Abdominal pain, generalized 03/19/2006 06/12/2014 documented as of this encounter (statuses as of 04/02/2023) [facility] History of Past illness Narrative* Problem Noted Date Diagnosed Date Resolved Date Shortness of breath 02/12/2016 06/29/19 17 Achilles tendinitis 10/04/2012 04/17/20 15 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 03/25/20 09 06/12/2014 Neoplasm of uncertain behavior of skin 01/23/2009 06/12/2014 Shortness of breath 09/01/2006 06/12/19 15 Abdominal pain, generalized 03/19/2006 06/12/2014 documented as of this encounter (statuses as of 04/19/2023) [facility] History of Past illness Narrative* Problem Noted Date Diagnosed Date Resolved Date Shortness of breath 02/12/2016 06/29/19 17 Achilles tendinitis 10/04/2012 04/17/20 15 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 03/25/20 09 06/12/2014 Neoplasm of uncertain behavior of skin 01/23/2009 06/12/2014 Shortness of breath 09/01/2006 06/12/19 15 Abdominal pain, generalized 03/19/2006 06/12/2014 documented as of this encounter (statuses as of 05/03/2023) [facility] Diagnosis Recurrent major depressive disorder, in full remission (HCC)- Primary [facility] Diagnosis Essential hypertension, benign- Primary Encounter for hepatitis C screening test for low risk patient Benign non-nodular prostatic hyperplasia with lower urinary tract symptoms Recurrent major depressive disorder, in full remission (HCC) [facility] Diagnosis Recurrent major depressive disorder, in full remission (HCC)- Primary [facility] Diagnosis Viral illness- Primary Unspecified viral infection, in conditions classified elsewhere and of unspecified site Acute cough [facility] Diagnosis At increased risk of exposure to COVID-19 virus- Primary [facility] Diagnosis SOB (shortness of breath)- Primary Shortness of breath Bronchitis Bronchitis, not specified as acute or chronic Fatigue, unspecified type [facility] Diagnosis SOB (shortness of breath)- Primary Shortness of breath 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 History of environmental allergies Other allergy, other than to medicinal agents History of COVID-19 [facility] Diagnosis SOB (shortness of breath) Shortness of breath [facility] Diagnosis SOB (shortness of breath) Shortness of breath [facility] Diagnosis Essential hypertension, benign- Primary Recurrent major depressive disorder, in full remission (HCC) Benign non-nodular prostatic hyperplasia with lower urinary tract symptoms SOB (shortness of breath) Shortness of breath Fatigue, unspecified type 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 SOB (shortness of breath) Shortness of breath History of environmental allergies Other allergy, other than to medicinal agents History of COVID-19 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 [facility] Diagnosis URI, acute- Primary Acute upper respiratory infections of unspecified site Rhinosinusitis Unspecified sinusitis (chronic) [facility] Diagnosis Viral illness- Primary Unspecified viral infection, in conditions classified elsewhere and of unspecified site Acute cough [facility] Diagnosis SOB (shortness of breath)- Primary Shortness of breath Acute cough Moderate persistent asthma without complication Unspecified asthma [facility] Diagnosis Cough variant asthma- Primary [facility] Diagnosis Rib pain on right side- Primary Chest pain, unspecified [facility] Diagnosis SOB (shortness of breath) Shortness of breath [facility] Diagnosis Essential hypertension, benign- Primary Recurrent major depressive disorder, in full remission (HCC) Benign non-nodular prostatic hyperplasia with lower urinary tract symptoms Moderate persistent asthma without complication Unspecified asthma Musculoskeletal pain Mylagia and myositis, unspecified Thrombocyte disorder (HCC) Qualitative platelet defects Elevated glucose Other abnormal glucose [facility] Diagnosis Cough variant asthma [facility] Diagnosis Cough variant asthma- Primary SOB (shortness of breath) Shortness of breath History of environmental allergies Other allergy, other than to medicinal agents [facility] Diagnosis Cough variant asthma- Primary Gastroesophageal reflux disease, unspecified whether esophagitis present History of environmental allergies Other allergy, other than to medicinal agents History of COVID-19 documented in this encounter [facility] note* Diagnosis Essential hypertension, benign- Primary Moderate persistent asthma without complication Unspecified asthma Benign non-nodular prostatic hyperplasia with lower urinary tract symptoms Recurrent major depressive disorder, in full remission (HCC) Anxiety Anxiety state, unspecified Low platelet count (HCC) documented in this encounter [facility] note* Diagnosis PERSON (dyspnea on exertion) Other dyspnea and respiratory abnormality Essential hypertension, benign documented in this encounter [facility] note* Diagnosis SOB (shortness of breath) Shortness of breath Cough variant asthma documented in this encounter [facility] note* Diagnosis SOB (shortness of breath) Shortness of breath Cough variant asthma documented in this encounter [facility] note* Diagnosis Hypertension, essential Unspecified essential hypertension documented in this encounter [facility] for referral (narrative)* Outpatient Procedure (Routine) - Authorized Specialty Diagnoses / Procedures Referred By Contac t Referred To [facility]AT[facility] Diagnoses SOB (shortness of breath) Procedures LUNG VOLUMES Genie Ponce MD [address] [place] [address] [address] Referral ID Status Reason Start Date Expiration Date Visits Requested Visits Authorized [id number] Authorized Auto-Generat ed Referral 02/27/2022 03/29/2023 1 1 * Outpatient Procedure (Routine) - Authorized Specialty Diagnoses / Procedures Referred By Contac t Referred To [facility] Diagnoses SOB (shortness of breath) Procedures NITRIC OXIDE, EXHALED NITRIC OXIDE GAS DETERMINATION Genie Ponce MD [address] [place] [address] [place] [phone] Referral ID Status Reason Start Date Expiration Date Visits Requested Visits Authorized [id number] Authorized Auto-Generat ed Referral 02/27/2022 03/29/2023 1 1 * Outpatient Procedure (Routine) - Authorized Specialty Diagnoses / [facility] Diagnoses SOB (shortness of breath) Procedures SPIROMETRY WITH DILATOR IF OBSTRUCTED BRNCDILAT RSPSE SPMTRY PRE&POST-BRNCDILAT Genie Barahona MD [address] [place] [address] [facility] [place] [address] [place] [id number] Referral ID Status Reason Start Date Expiration Date Visits Requested Visits Authorized [id number] Authorized Auto-Generat ed Referral 02/27/2022 03/29/2023 1 1 [facility] for referral (narrative)* Diagnostic Procedure Only (Urgent) - Closed Specialty Diagnoses / Procedures [facility] Diagnoses Rib pain on right side Procedures XR RIBS/CHEST 3V AP RIB/OBLS/CXR RIGHT RADEX RIBS UNI W/POSTEROANT CH MINIMUM 3 VIEWS Cuco Mathis APRN.CNP [address] [place] [address] Xr Imaging Referral ID Status Reason Start Date Expiration Date V isits Requested Visits Authorized [id number] Closed Auto-Generate d Referral 08/19/2022 09/18/2023 1 1 [facility] for referral (narrative)* Outpatient Procedure (Routine) - Closed Specialty Diagnoses / Procedures [facility] Diagnoses Cough variant asthma Procedures NITRIC OXIDE, EXHALED NITRIC OXIDE GAS DETERMINATION Becky Fierro PA-C [address] [place] [address] [facility] [place] [address] [place] [address] Referral ID Status Reason Start Date Expiration Date V isits Requested Visits Authorized [id number] Closed Auto-Generate d Referral 12/10/2022 01/09/2024 1 1 * Outpatient Procedure (Routine) - Authorized Specialty Diagnoses / Procedures Referred By Contac t Referred To Contact [facility] Diagnoses SOB (shortness of breath) Procedures ECHO ECHO TTHRC R-T 2D W/WOM-MODE COMPL SPEC&COLR Becky Cohen PA-C [address] [place] [address] [facility] [place] [address] [place] [address] Referral ID Status Reason Start Date Expiration Date Visits Requested Visits Authorized [id number] Authorized Auto-Generat ed Referral 12/10/2022 12/10/2023 1 1 [facility] Diagnostic Procedure Only (Routine) - Closed Specialty Diagnoses / Procedures Referred By Contac t Referred To Contact MOLECULAR & FUNCTIONAL IMAGING Diagnoses PERSON (dyspnea on exertion) Essential hypertension, benign Procedures NM CARDIAC PERF STRESS/EXERCISE MYOCARDIAL SPECT MULTIPLE STUDIES Binu Bellamy MD [address] [place] [address] Molecular [facility] Functional [facility] [address] [place] [phone] Referral ID Status Reason Start Date Expiration Date V isits Requested Visits Authorized [id number] Closed Auto-Generate d Referral 01/04/2023 02/03/2024 1 1 [facility] Summary Purpose Family History No Family History Records FoundNo Family History Records Found Advance Directives Documents on File Type Date Recorded Patient Communication Assistant Expl anation Advance Directive(s) 06/18/2020 7:30 AM Advance Directive(s) 06/18/2020 7:26 AM Advance Directive(s) 06/12/2020 9:19 AM Advance Directive(s) 02/07/2015 9:07 AM Documents on File Type Date Recorded Patient Communication Assistant Expl anation Advance Directive(s) 06/18/2020 7:26 AM Advance Directive(s) 02/07/2015 9:07 AM Documents on File Type Date Recorded Patient Communication Assistant Expl anation Advance Directive(s) 06/18/2020 7:26 AM Advance Directive(s) 02/07/2015 9:07 AM Documents on File Type Date Recorded Patient Communication Assistant Expl anation Advance Directive(s) 10/20/2022 8:34 AM Advance Directive(s) 06/18/2020 7:26 AM Documents on File Type Date Recorded Patient Communication Assistant Expl anation Advance Directive(s) 10/20/2022 8:34 AM Advance Directive(s) 06/18/2020 7:26 AM Health Concerns Infection Onset Date Last Indicated Resolved Time COVID-19 Rule-Out 02/15/2022 02/15/2022 Infection Onset Date Last Indicated Resolved Time COVID-19 Rule-Out 02/15/2022 02/15/2022 02/16/2022 1:09 AM EDT Infection Onset Date Last Indicated Resolved Time COVID-19 Rule-Out 05/10/2022 05/10/2022 Additional Source Comments (unrecognized sect ion and content) No Status Records FoundNo Status Records Found INFORMATION SOURCE (unrecogn ized section and content) DATE CREATED AUTHOR AUTHOR'S JEWELS ATION 04/20/2023 [facility] Source Comments (unrecognize d section and content) In the event this informatio n is protected by the Federal Confidentiality of Alcohol and Drug Abuse Patient Records regulations: The Federal rules restrict any use of the information to criminally investigate or prosecute any alcohol or drug abuse patient.[facility] the event this information is protected by the Federal Confidentiality of Alcohol and Drug Abuse Patient Records regulations: The Federal rules restrict any use of the information to criminally investigate or prosecute any alcohol or drug abuse patient.[facility] the event this information is protected by the Federal Confidentiality of Alcohol and Drug Abuse Patient Records regulations: The Federal rules restrict any use of the information to criminally investigate or prosecute any alcohol or drug abuse patient.[facility] the event this information is protected by the Federal Confidentiality of Alcohol and Drug Abuse Patient Records regulations: The Federal rules restrict any use of the information to criminally investigate or prosecute any alcohol or drug abuse patient.[facility] the event this information is protected by the Federal Confidentiality of Alcohol and Drug Abuse Patient Records regulations: The Federal rules restrict any use of the information to criminally investigate or prosecute any alcohol or drug abuse patient.[facility] the event this information is protected by the Federal Confidentiality of Alcohol and Drug Abuse Patient Records regulations: The Federal rules restrict any use of the information to criminally investigate or prosecute any alcohol or drug abuse patient.[facility] the event this information is protected by the Federal Confidentiality of Alcohol and Drug Abuse Patient Records regulations: The Federal rules restrict any use of the information to criminally investigate or prosecute any alcohol or drug abuse patient.[facility] the event this information is protected by the Federal Confidentiality of Alcohol and Drug Abuse Patient Records regulations: The Federal rules restrict any use of the information to criminally investigate or prosecute any alcohol or drug abuse patient.[facility] the event this information is protected by the Federal Confidentiality of Alcohol and Drug Abuse Patient Records regulations: The Federal rules restrict any use of the information to criminally investigate or prosecute any alcohol or drug abuse patient.[facility] the event this information is protected by the Federal Confidentiality of Alcohol and Drug Abuse Patient Records regulations: The Federal rules restrict any use of the information to criminally investigate or prosecute any alcohol or drug abuse patient.[facility] the event this information is protected by the Federal Confidentiality of Alcohol and Drug Abuse Patient Records regulations: The Federal rules restrict any use of the information to criminally investigate or prosecute any alcohol or drug abuse patient.[facility] the event this information is protected by the Federal Confidentiality of Alcohol and Drug Abuse Patient Records regulations: The Federal rules restrict any use of the information to criminally investigate or prosecute any alcohol or drug abuse patient.[facility]In the event this information is protected by the Federal Confidentiality of Alcohol and Drug Abuse Patient Records regulations: The Federal rules restrict any use of the information to criminally investigate or prosecute any alcohol or drug abuse patient.[facility] the event this information is protected by the Federal Confidentiality of Alcohol and Drug Abuse Patient Records regulations: The Federal rules restrict any use of the information to criminally investigate or prosecute any alcohol or drug abuse patient.[facility] the event this information is protected by the Federal Confidentiality of Alcohol and Drug Abuse Patient Records regulations: The Federal rules restrict any use of the information to criminally investigate or prosecute any alcohol or drug abuse patient.[facility] the event this information is protected by the Federal Confidentiality of Alcohol and Drug Abuse Patient Records regulations: The Federal rules restrict any use of the information to criminally investigate or prosecute any alcohol or drug abuse patient.[facility] the event this information is protected by the Federal Confidentiality of Alcohol and Drug Abuse Patient Records regulations: The Federal rules restrict any use of the information to criminally investigate or prosecute any alcohol or drug abuse patient.[facility]In the event this information is protected by the Federal Confidentiality of Alcohol and Drug Abuse Patient Records regulations: The Federal rules restrict any use of the information to criminally investigate or prosecute any alcohol or drug abuse patient.[facility] CenterIn the event this information is protected by the Federal Confidentiality of Alcohol and Drug Abuse Patient Records regulations: The Federal rules restrict any use of the information to criminally investigate or prosecute any alcohol or drug abuse patient.[facility] CenterIn the event this information is protected by the Federal Confidentiality of Alcohol and Drug Abuse Patient Records regulations: The Federal rules restrict any use of the information to criminally investigate or prosecute any alcohol or drug abuse patient.[facility] CenterIn the event this information is protected by the Federal Confidentiality of Alcohol and Drug Abuse Patient Records regulations: The Federal rules restrict any use of the information to criminally investigate or prosecute any alcohol or drug abuse patient.[facility] CenterIn the event this information is protected by the Federal Confidentiality of Alcohol and Drug Abuse Patient Records regulations: The Federal rules restrict any use of the information to criminally investigate or prosecute any alcohol or drug abuse patient.[facility] CenterIn the event this information is protected by the Federal Confidentiality of Alcohol and Drug Abuse Patient Records regulations: The Federal rules restrict any use of the information to criminally investigate or prosecute any alcohol or drug abuse patient.[facility] CenterIn the event this information is protected by the Federal Confidentiality of Alcohol and Drug Abuse Patient Records regulations: The Federal rules restrict any use of the information to criminally investigate or prosecute any alcohol or drug abuse patient.[facility] CenterIn the event this information is protected by the Federal Confidentiality of Alcohol and Drug Abuse Patient Records regulations: The Federal rules restrict any use of the information to criminally investigate or prosecute any alcohol or drug abuse patient.[facility] CenterIn the event this information is protected by the Federal Confidentiality of Alcohol and Drug Abuse Patient Records regulations: The Federal rules restrict any use of the information to criminally investigate or prosecute any alcohol or drug abuse patient.[facility] CenterIn the event this information is protected by the Federal Confidentiality of Alcohol and Drug Abuse Patient Records regulations: The Federal rules restrict any use of the information to criminally investigate or prosecute any alcohol or drug abuse patient.[facility] CenterIn the event this information is protected by the Federal Confidentiality of Alcohol and Drug Abuse Patient Records regulations: The Federal rules restrict any use of the information to criminally investigate or prosecute any alcohol or drug abuse patient.[facility] CenterIn the event this information is protected by the Federal Confidentiality of Alcohol and Drug Abuse Patient Records regulations: The Federal rules restrict any use of the information to criminally investigate or prosecute any alcohol or drug abuse patient.[facility] CenterIn the event this information is protected by the Federal Confidentiality of Alcohol and Drug Abuse Patient Records regulations: The Federal rules restrict any use of the information to criminally investigate or prosecute any alcohol or drug abuse patient.[facility] CenterIn the event this information is protected by the Federal Confidentiality of Alcohol and Drug Abuse Patient Records regulations: The Federal rules restrict any use of the information to criminally investigate or prosecute any alcohol or drug abuse patient.[facility] CenterIn the event this information is protected by the Federal Confidentiality of Alcohol and Drug Abuse Patient Records regulations: The Federal rules restrict any use of the information to criminally investigate or prosecute any alcohol or drug abuse patient.[facility] CenterIn the event this information is protected by the Federal Confidentiality of Alcohol and Drug Abuse Patient Records regulations: The Federal rules restrict any use of the information to criminally investigate or prosecute any alcohol or drug abuse patient.[facility] CenterIn the event this information is protected by the Federal Confidentiality of Alcohol and Drug Abuse Patient Records regulations: The Federal rules restrict any use of the information to criminally investigate or prosecute any alcohol or drug abuse patient.[facility] CenterIn the event this information is protected by the Federal Confidentiality of Alcohol and Drug Abuse Patient Records regulations: The Federal rules restrict any use of the information to criminally investigate or prosecute any alcohol or drug abuse patient.[facility] CenterIn the event this information is protected by the Federal Confidentiality of Alcohol and Drug Abuse Patient Records regulations: The Federal rules restrict any use of the information to criminally investigate or prosecute any alcohol or drug abuse patient.[facility] CenterIn the event this information is protected by the Federal Confidentiality of Alcohol and Drug Abuse Patient Records regulations: The Federal rules restrict any use of the information to criminally investigate or prosecute any alcohol or drug abuse patient.[facility] CenterIn the event this information is protected by the Federal Confidentiality of Alcohol and Drug Abuse Patient Records regulations: The Federal rules restrict any use of the information to criminally investigate or prosecute any alcohol or drug abuse patient.[facility] CenterIn the event this information is protected by the Federal Confidentiality of Alcohol and Drug Abuse Patient Records regulations: The Federal rules restrict any use of the information to criminally investigate or prosecute any alcohol or drug abuse patient.[facility] CenterIn the event this information is protected by the Federal Confidentiality of Alcohol and Drug Abuse Patient Records regulations: The Federal rules restrict any use of the information to criminally investigate or prosecute any alcohol or drug abuse patient.[facility] CenterIn the event this information is protected by the Federal Confidentiality of Alcohol and Drug Abuse Patient Records regulations: The Federal rules restrict any use of the information to criminally investigate or prosecute any alcohol or drug abuse patient.[facility] Reason for Visit (unrecogniz ed section and content) Specialty Diagnoses / Procedures Referred By Anne castanon Referred To Contact Psychiatry / ADULT PSYCHIATRY Diagnoses FOLLOW UP Procedures EST PSYC ADULT Jessica Barraza, RIGHT OF WAY BUYER.GLOB[employer] SECURITY ARCHITECT [address] [place] [address] Berkley Roque, RIGHT OF WAY BUYER.GLOBAL SECURITY ARCHITECT [address] [place] [address] Referral ID Status Reason Start Date Expiration Date V isits Requested Visits Authorized [id number] Pending Review 08/27/2021 11/25/2021 1 1 Reason Comments 6 Month Exam Referral ID Status Reason Start Date Expiration Date Visits Re quested Visits Authorized [id number] Closed 08/27/2021 11/25/2021 1 1 Reason Comments Acute Visit SOB,fatique Reason Comments Flu Like Symptoms Chest congestion, SO B x 1 week, is covid positive Reason Comments Results Reason Comments Follow Up congestion and urgen t care Reason Comments Results Labs Reason Comments New Patient Dyspnea Reason Comments Spirometry Specialty Diagnoses / Procedures Referred By Anne castanon Referred To Contact [facility] Diagnoses SOB (shortness of breath) Procedures NITRIC OXIDE, EXHALED NITRIC OXIDE GAS DETERMINATION Genie Ponce MD [address] [place] [address] Res[facility] [place] [address] [place] [address] Referral ID Status Reason Start Date Expiration Date V isits Requested Visits Authorized [id number] Closed Auto-Generate d Referral 02/27/2022 03/29/2023 1 1 Specialty Diagnoses / Procedures Referred By Contac t Referred To Contact [facility] Diagnoses SOB (shortness of breath) Procedures SPIROMETRY WITH DILATOR IF OBSTRUCTED BRNCDILAT RSPSE SPMTRY PRE&POST-BRNCDILAT ADMN Genie Ponce MD [address] [place] [address] [address] Referral ID Status Reason Start Date Expiration Date V isits Requested Visits Authorized [id number] Closed Auto-Generate d Referral 02/27/2022 03/29/2023 1 1 Specialty Diagnoses / Procedures Referred By Contac t Referred To Contact [facility] Diagnoses SOB (shortness of breath) Procedures LUNG VOLUMES Genie Ponce MD [address] [place] [address] [address] Referral ID Status Reason Start Date Expiration Date V isits Requested Visits Authorized [id number] Closed Auto-Generate d Referral 02/27/2022 03/29/2023 1 1 Reason Comments F/U 6 Month Reason Comments Refill Request Reason Comments Patient Question Reason Comments Established Patient 6 week follow up Reason Comments Results Covid/Flu Reason Comments Cough Pt reported chest co ngestion , x10 days. Reason Comments Cough fatigue, weakness an d sob x 3 weeks Reason Comments Follow Up From . coughing an d fatique Reason Comments Shortness of Breath Reason Comments Rib Injury right rib pain x 10 days Reason Onset Date Comments Refill Request 08/24/2022 Specialty Diagnoses / Procedures Referred By Contac t Referred To Contact [facility] Diagnoses Cough variant asthma Procedures NITRIC OXIDE, EXHALED NITRIC OXIDE GAS DETERMINATION Becky Fierro PA-C [address] [facility] [place] [address] [address] Referral ID Status Reason Start Date Expiration Date V isits Requested Visits Authorized [id number] Closed Auto-Generate d Referral 12/10/2022 01/09/2024 1 1 Reason Comments Established Patient 6 month follow up co ugh variant asthma Reason Comments Medication Problem Not sure of increase of dosage Reason Comments Asthma Reason Comments Radiology NM Specialty Diagnoses / Procedures Referred By [facility] Referred To Contact MOLECULAR & FUNCTIONAL IMAGING Diagnoses PERSON (dyspnea on exertion) Essential hypertension, benign Procedures NM CARDIAC PERF STRESS/EXERCISE MYOCARDIAL SPECT MULTIPLE STUDIES Binu Bellamy MD [address] [place] [address] Molecular & Functional Imaging [address] [place] [address] Referral ID Status Reason Start Date Expiration Date V isits Requested Visits Authorized [id number] Closed Auto-Generate d Referral 01/04/2023 02/03/2024 1 1 Specialty Diagnoses / Procedures Referred By [facility] Referred To Contact [facility] Diagnoses SOB (shortness of breath) Cough variant asthma Procedures SPIROMETRY BASELINE ONLY SPMTRY W/VC EXPIRATORY LINDSAY W/WO MXML VOL VNTJ Becky Fierro PA-C [address] [place] [address] Respiratory [place] [address] [place] [address] Referral ID Status Reason Start Date Expiration Date V isits Requested Visits Authorized [id number] Closed Auto-Generate d Referral 04/19/2023 05/18/2024 1 1 Specialty Diagnoses / Procedures Referred By [facility] Referred To Contact [facility] Diagnoses SOB (shortness of breath) Cough variant asthma Procedures MIPS/MEPS UNLISTED PULMONARY SERVICE/PROCEDURE Becky Fierro PA-C [address] [place] [address] Respiratory [place] [address] [place] [address] Referral ID Status Reason Start Date Expiration Date V isits Requested Visits Authorized [id number] Closed Auto-Generate d Referral 04/19/2023 05/18/2024 1 1 Care Teams (unrecognized sec tion and content) Switchboard Wirer Relationship Specialty Start Date End Date Binu Bellamy MD [address] [place] [address] PCP - General Family Practice 01/01/21 Switchboard Wirer Relationship Specialty Start Date End Date Binu Bellamy MD [address] [facility] [place] [address] PCP - General Family Practice 01/01/21 Switchboard Wirer Relationship Specialty Start Date End Date Binu Bellamy MD [address] [facility] [place] [address] PCP - General Family Practice 01/01/21 Switchboard Wirer Relationship Specialty Start Date End Date Binu Bellamy MD [address] [place] [place] [address] PCP - General Family Practice 01/01/21 Switchboard Wirer Relationship Specialty Start Date End Date Binu Bellamy MD [address] [place] [address] PCP - General Family Medicine 01/01/21 Switchboard Wirer Relationship Specialty Start Date End Date Binu Bellamy MD [address] [place] [place] [address] PCP - General Family Medicine 01/01/21 Switchboard Wirer Relationship Specialty Start Date End Date Binu Bellamy MD [address] [place] [place] [address] PCP - General Family Medicine 01/01/21 Switchboard Wirer Relationship Specialty Start Date End Date Binu Bellamy MD [address] [place] [address] PCP - General Family Medicine 01/01/21 Switchboard Wirer Relationship Specialty Start Date End Date Binu Bellamy MD [address] [place] [address] PCP - General Family Medicine 01/01/21 Switchboard Wirer Relationship Specialty Start Date End Date Binu Bellamy MD [address] [place] [place] [address] PCP - General Family Medicine 01/01/21 Switchboard Wirer Relationship Specialty Start Date End Date Binu Bellamy MD [address] [place] [address] PCP - General Family Medicine 01/01/21 Switchboard Wirer Relationship Specialty Start Date End Date Binu Bellamy MD [address] [place] [address] PCP - General Family Medicine 01/01/21 Switchboard Wirer Relationship Specialty Start Date End Date Binu Bellamy MD [address] [place] [address] PCP - General Family Medicine 01/01/21 Switchboard Wirer Relationship Specialty Start Date End Date Binu Bellamy MD [address] [place] [address] PCP - General Family Medicine 01/01/21 Switchboard Wirer Relationship Specialty Start Date End Date Binu Bellamy MD [address] [place] [address] PCP - General Family Medicine 01/01/21 Switchboard Wirer Relationship Specialty Start Date End Date Binu Bellamy MD [address] [place] [address] PCP - General Family Medicine 01/01/21 Switchboard Wirer Relationship Specialty Start Date End Date Binu Bellamy MD [address] [place] [address] PCP - General Family Medicine 01/01/21 Switchboard Wirer Relationship Specialty Start Date End Date Binu Bellamy MD [address] [place] [address] PCP - General Family Medicine 01/01/21 Switchboard Wirer Relationship Specialty Start Date End Date Binu Bellamy MD [address] [place] [address] PCP - General Family Medicine 01/01/21 Switchboard Wirer Relationship Specialty Start Date End Date Binu Bellamy MD [address] [place] [address] PCP - General Family Medicine 01/01/21 Switchboard Wirer Relationship Specialty Start Date End Date Binu Bellamy MD [address] [place] [address] PCP - General Family Medicine 01/01/21 Switchboard Wirer Relationship Specialty Start Date End Date Binu Bellamy MD [address] [place] [address] PCP - General Family Medicine 01/01/21 Switchboard Wirer Relationship Specialty Start Date End Date Binu Bellamy MD [address] [place] [address] PCP - General Family Medicine 01/01/21 Switchboard Wirer Relationship Specialty Start Date End Date Binu Bellamy MD [address] [place] [address] PCP - General Family Medicine 01/01/21 Switchboard Wirer Relationship Specialty Start Date End Date Binu Bellamy MD [address] [place] [address] PCP - General Family Medicine 01/01/21 Switchboard Wirer Relationship Specialty Start Date End Date Binu Bellamy MD [address] [place] [address] PCP - General Family Medicine 01/01/21 Switchboard Wirer Relationship Specialty Start Date End Date Binu Bellamy MD [address] [place] [address] PCP - General Family Medicine 01/01/21 Switchboard Wirer Relationship Specialty Start Date End Date Binu Bellamy MD [address] [place], [place] [address] PCP - General Family Medicine 01/01/21 Switchboard Wirer Relationship Specialty Start Date End Date Binu Bellamy MD [address] [place], [place] [address] PCP - General Family Medicine 01/01/21 FOR RECORDS PERTAINING TO PATIENTS WHO ARE OR HAVE BEEN ENROLLED IN A CHEMICAL DEPENDENCY/SUBSTANCEABUSE PROGRAM, SOME INFORMATION MAY BE OMITTED. This clinical summary was aggregated from multiple sources. Caution should be exercised in using it in the provision of clinical care. This summary normalizes information from multiple sources, and as a consequence, information in this document may materially change the coding, format and clinical context of patient data. In addition, data may be omitted in some cases. CLINICAL DECISIONS SHOULD BE BASED ON THE PRIMARY CLINICAL RECORDS. [facility]. provides no warranty or guarantee of the accuracy or completeness of information in this document.
== END | disposition home or self-care (01) ==
LOC: LAB 11:49
PROVIDERS: PCP Family Medicine Geriatric Medicine; Referring Provider Internal Medicine Cardiovascular Disease; Visit Provider Internal Medicine Cardiovascular Disease
DX: R06.02 Shortness of breath (principal)
CPT/HCPCS: 36415; 83880

== ENCOUNTER → 2023-07-02 | Outpatient (CLI) | payer MEDICARE, SELFPAY ==
[2023-07-02 11:15] LABS: Absolute Lymphocyte Count 3.29 X10^3/uL (0.83-4.51); Absolute Neutrophil Count 4.9 X10^3/uL (2.0-7.7); Basophil# 0.02 X10^3/uL; Basophil% 0.2 % (0-1); Eosinophil# 0.04 X10^3/uL; Eosinophils% 0.5 % (0-5); Hematocrit 47.3 % (40-54); Hemoglobin 15.6 g/dL (13.0-16.5); Lymphocyte # 3.29 X10^3/ul (0.83-4.51); Lymphocyte % 37.7 % (19-41); Mean Corpuscular Hgb 29.9 pg (27.0-32.0); Mean Corpuscular Volume 90.8 fL (80-94); Mean Platelet Vol. 9.5 fl (6.2-12.0); Monocyte# 0.45 X10^3/uL; Monocyte% 5.2 % (0-10); NRBC Flagged by Analyzer 0 % (0-5); Neutrophil % 56.1 % (47-70); Platelet Count 162 K/mm3 (150-450); RBC Distribution Width CV 13.2 % (11.6-14.6); Red Blood Count 5.21 M/mm3 (4.6-6.2); White Blood Count 8.7 K/mm3 (4.4-11.0)
[2023-07-02 11:27] LABS: ALB/GLOB Ratio 1.3 RATIO (0.9-2.4); AST(SGOT) 19 U/L (15-37); Alanine Aminotransfer ALT/SGPT 32 U/L (16-61); Albumin, Serum 3.8 g/dL (3.2-5.0); Alkaline Phosphatase 107 U/L (45-117); Anion Gap 3 (5-15); BUN 13 mg/dL (7-18); BUN/Creat Ratio 13.9 RATIO (10-20); Calcium,Total 9.2 mg/dL (8.5-10.1); Chloride 110 mmol/L (98-107); Creatinine, Serum 0.94 mg/dL (0.70-1.30); EST Glomerular Filtration Rate 83 mL/min (>60); Est Glom Filt Rate - Afr Amer 100 mL/min (>60); Globulin 2.9 g/dL (2.2-4.2); Glucose 103 mg/dL (74-106); Potassium 4.5 mmol/L (3.5-5.1); Protein, Total 6.7 g/dL (6.4-8.2); Sodium Level 139 mmol/L (136-145)
== END | disposition home or self-care (01) ==
LOC: POLAB3 09:54
PROVIDERS: PCP Family Medicine Geriatric Medicine; Visit Provider Family Medicine Geriatric Medicine
DX: E78.5 Hyperlipidemia, unspecified (principal); Z13.89 Encounter for screening for other disorder
CPT/HCPCS: 36415; 80053; 84443; 85025

== ENCOUNTER 2023-08-15 11:13 | Emergency (ER) | payer MEDICARE, SELFPAY ==
[2023-08-15 11:14] VITALS: BP 130/89; PULSE 96; RESP 14; TEMP 36.8; O2SAT 97
--- NOTE | 2023-08-15 11:28 | EKG12_ITS ---
Test Reason : GENERAL Blood Pressure : / mmHG Vent. Rate : 081 BPM Atrial Rate : 081 BPM P-R Int : 182 ms QRS Dur : 094 ms QT Int : 372 ms P-R-T Axes : 047 -13 013 degrees QTc Int : 432 ms Normal sinus rhythm Normal ECG Confirmed by MEI ANNE MD ([id number]), acquisitions editor DARIEL DAVID ([id number]) on 08/17/2023 10:46:55 AM Referred By: Confirmed By:MEI ANNE MD
--- NOTE | 2023-08-15 11:28 | CT_ITS ---
STUDY: CT BRAIN WITHOUT CONTRAST REASON FOR EXAM: Male, 78 years old. dizziness, headache RADIATION DOSAGE (If Supplied By Facility): CTDIvol = ( 44.99 ) mGy, DLP = ( 762.36 ) mGycm TECHNIQUE: Transaxial CT imaging of the brain was performed without administration of intravenous contrast material. Individualized dose optimization techniques were used for this CT. COMPARISON: No relevant priors. FINDINGS: Normal soft tissue structures. Normal calvarium. Normal size ventricles and extra-axial spaces for the patient''s age. There are areas of decreased attenuation within the white matter tracts of the supratentorial brain, consistent with microvascular disease changes. Normal basal ganglia and thalami. Normal brainstem. Normal cerebellum. There is no intracranial hemorrhage. There are no findings of an acute ischemic infarction. Normal visualized paranasal sinuses. CT/Brain/Head without Contrast IMPRESSION: Age consistent senescent changes, no acute findings Electronically Signed: Juancho Barksdale MD at 12:51 EDT ,
--- NOTE | 2023-08-15 11:29 | EDS_ITS ---
HPI History of Present Illness Chief Complaint: Dizziness Detail of Chief Complaint: Dizziness Informant: patient Narrative Narrative: Patient presents to the emergency department with complaint of dizziness that started this morning when he woke up and got out of bed. He describes things spinning around and round and nausea but no vomiting. Symptoms worse with standing and trying to walk. He is never had symptoms like this before. He denies recent falls or injuries. He denies recent illness. No history of vertigo. PFSH PFS Medical History Anxiety Asthma BPH (benign prostatic hyperplasia) Chronic low back pain Constipation COVID-19 Depression GERD (gastroesophageal reflux disease) Hyperlipidemia Hypertension Lower urinary tract symptoms (LUTS) SOB (shortness of breath) Home Medications polyethylene glycol 3350 17 gram oral powder packet 17 g PO DAILY PRN Constipation 04/19/13 [History Last Taken 04/19/13 07:00] lisinopril 5 mg tablet 5 mg PO DAILY 08/28/20 [History Last Taken Unknown] tamsulosin 0.4 mg capsule 0.4 mg PO QHS 06/16/21 [History Last Taken Unknown] albuterol sulfate 90 mcg/actuation breath activated powder inhaler 2 inh inhalation Q6H PRN 05/06/23 [History Last Taken Unknown] mometasone-formoterol HFA 200 mcg-5 mcg/actuation aerosol inhaler (Dulera) 2 puff inhalation BID 05/06/23 [History Last Taken Unknown] montelukast 10 mg tablet 10 mg PO DAILY 05/06/23 [History Last Taken Unknown] maprotiline 50 mg tablet 50 mg PO BID 06/02/23 [History Last Taken Unknown] nortriptyline 50 mg capsule 50 mg PO BID 06/02/23 [History Last Taken Unknown] omeprazole 10 mg capsule,delayed release 40 mg PO DAILY 06/02/23 [History Last Taken Unknown] meclizine 25 mg chewable tablet (Antivert) 25 mg PO TID PRN dizziness #20 tabs 08/15/23 [Rx Last Taken Unknown] ondansetron 4 mg disintegrating tablet 4 mg PO Q8H PRN PRN Nausea #10 tabs 08/15/23 [Rx Last Taken Unknown] Allergy/AdvReac Type Severity Reaction Status Date / Time No Known Allergies Allergy Verified 08/15/23 11:14 Family History Mother Depression CVA (cerebral vascular accident) Anxiety Hypertension Father Pancreatic cancer Surgical History Hx of cataract extraction Social History Smoking Status: Former smoker alcohol intake: never substance use type: does not use ROS ROS ED Review of Systems ROS Unobtainable: other Constitutional Constitutional ED: Reports lethargy; Denies chills, fever(s), sweats or weight loss Eyes Eyes: Denies blurry vision, change in vision or diplopia ENT ENT ED: Denies rhinorrhea or sore throat Cardiovascular Cardiovascular: Denies chest pain, orthopnea or racing heartbeat Respiratory/Chest Respiratory/Chest: Denies cough, dyspnea, dyspnea on exertion, orthopnea or sputum Gastrointestinal Gastrointestinal: Denies abdominal pain, diarrhea, nausea or vomiting Genitourinary Genitourinary ED: Denies dysuria, hematuria or urinary frequency Musculoskeletal Musculoskeletal: Denies arthralgias, back pain, myalgias or neck pain Integumentary Denies abscess, Abrasions or rash Neurologic Neurologic: Reports headache(s) and other Details: Dizziness and mild headache ; Denies weakness Psychiatric Psychiatric: Denies anxiety, depression or suicidal thoughts Endocrine Endocrinology: Denies polydipsia, polyphagia or polyuria Hematologic/Lymphatic Hematologic/Lymphatic: Denies easy bleeding, easy bruising or lymphadenopathy Allergic/Immunologic Allergic/Immunologic ED: Denies mouth swelling, tongue swelling or urticaria EXAM Physical Exam Const Vital Signs: 08/15/23 11:14 08/15/23 11:58 08/15/23 12:27 Temperature 98.3 F Temperature Source Temporal Pulse Rate 96 Pulse Rate [Lying] 86 Pulse Rate [Sitting (for 1 minute prior to obtaining)] 84 Pulse Rate [Standing (for 1 minute prior to obtaining)] 92 Respiratory Rate 14 Respiratory Effort Normal Non-Labored Respiratory Pattern Normal Blood Pressure 130/89 H Blood Pressure [Lying] 123/63 H Blood Pressure [Sitting (for 1 minute prior to obtaining)] 123/67 H Blood Pressure [Standing (for 1 minute prior to obtaining)] 117/76 Blood Pressure Mean 102 Blood Pressure Mean [Lying] 83 Blood Pressure Mean [Sitting (for 1 minute prior to obtaining)] 85 Blood Pressure Mean [Standing (for 1 minute prior to obtaining)] 89 Pulse Ox 97 Oxygen Delivery Method Room Air 08/15/23 13:13 Temperature 97.8 F Temperature Source Pulse Rate 81 Pulse Rate [Lying] Pulse Rate [Sitting (for 1 minute prior to obtaining)] Pulse Rate [Standing (for 1 minute prior to obtaining)] Respiratory Rate 16 Respiratory Effort Respiratory Pattern Blood Pressure 124/64 H Blood Pressure [Lying] Blood Pressure [Sitting (for 1 minute prior to obtaining)] Blood Pressure [Standing (for 1 minute prior to obtaining)] Blood Pressure Mean 84 Blood Pressure Mean [Lying] Blood Pressure Mean [Sitting (for 1 minute prior to obtaining)] Blood Pressure Mean [Standing (for 1 minute prior to obtaining)] Pulse Ox 96 Oxygen Delivery Method Positive well nourished and well developed General Appearance ED: well developed and NAD HEENT Reports TM's clear and moist mucous membranes normocephalic and atraumatic; Negative for trauma or tenderness Tympanic Membrane ED: Yes TM's clear Eyes PERRL and EOMs intact bilaterally General Eye ED: Negative for pale conjunctiva or scleral icterus Neck no lymphadenopathy, supple and no JVD General: Negative for tenderness Chest Wall inspection of chest normal and palpation of chest normal Chest: Negative for tenderness Resp normal respiratory effort and clear to auscultation bilaterally Effort and Inspection: Negative for respiratory distress or pain with movement Auscultation: Negative for rhonchi, wheezes or diminished lung sounds Cardio regular rate, regular rhythm, S1 normal heart sound, S2 normal heart sound and no murmurs Peripheral Pulses: pulses 2+ throughout GI normal to inspection, nondistended, normoactive bowel sounds, soft to palpation, non-tender, non-distended and no masses Back/Spine no CVA tenderness and no thoracic nor lumbar tenderness Extremity normal to inspection General Extremety ED: Negative for edema General Extremity: Negative for edema Neuro oriented x3, CN's II-XII intact bilaterally, no sensory deficits noted and gait normal Neuro Narrative: Finger-nose and heel chinchilla testing within normal limits, negative Romberg, negative for drift, fundi benign. Hallpike maneuver performed and patient did become symptomatic with head turn to the left but had more nausea. No significant nystagmus noted. Sensorium / Orientation: awake, alert, oriented to person, oriented to place and oriented to time Motor Exam: strength 5/5 throughout and strength abnormal Psych mental status grossly normal Skin no rashes or lesions noted and no wounds MDM MDM MDM Narrative Medical decision making narrative: Patient presents with sudden onset of dizziness related to position change. Nausea. Clinically suspect benign positional vertigo. Has had no falls or head injuries. No prior episodes like this. No recent illness. IV line established. EKG obtained arrival shows sinus rhythm with rate of 81 bpm with no acute ST segment changes. CBC with differential was normal. Chemistries unremarkable. CT scan of the brain without contrast showed chronic involutional changes otherwise no acute process. While in the department I did give him Zofran 4 mg IV and 25 mg of Antivert p.o. Orthostatic vital signs were negative. Patient was ambulated and does feel improved after treatment. Clinically I suspect benign positional vertigo. Will write a prescription for Zofran and Antivert. Will refer to ENT as he does describe some progressive hearing loss over time and may be some ringing in the ears. In the differential would be potentially M?ni?re's as well. Lab Data Attestation: I reviewed the patient's lab results. Labs: Laboratory Results - last 24 hr 08/15/23 11:30 WBC 7.6 RBC 5.25 Hgb 16.0 Hct 47.6 MCV 90.7 MCH 30.5 MCHC 33.6 RDW Std Deviation 44.4 H RDW Coeff of [place] 13.2 Plt Count 156 MPV 8.9 Immature Gran % (Auto) 0.300 Neut % (Auto) 52.6 Lymph % (Auto) 42.7 H [place] % (Auto) 4.3 Eos % (Auto) 0.0 Baso % (Auto) 0.1 Absolute Neuts (auto) 4.0 Absolute Lymphs (auto) 3.24 Nucleated RBC % 0 Sodium 142 Potassium 4.4 Chloride 114 H Carbon Dioxide 23.0 Anion Gap 5 BUN 15 Creatinine 1.00 Est GFR (MDRD) Af Amer 93 Est GFR (MDRD) Non-Af 77 BUN/Creatinine Ratio 15.0 Glucose 134 H Calcium 8.7 Radiography Diagnostic Testing: Clinical Impression(s) from Imaging Studies Brain CT 08/15/23 11:28 IMPRESSION: Age consistent senescent changes, no acute findings Electronically Signed: Juancho Barksdale MD at 12:51 EDT , EKG Initial EKG: Attestation: I personally reviewed and interpreted this EKG as follows: Comments: Sinus rhythm with rate of 81 bpm with no acute ST segment changes Discharge Plan Triage Chief Complaint: Dizziness ED Provider: Joe Lisa Dx/Rx/DC Orders Clinical Impression: Vertigo Instructions: ED BPV Vertigo Prescriptions: New ondansetron [ondansetron] 4 mg tablet,disintegrating 4 mg PO Q8H PRN PRN (Reason: Nausea) Qty: 10 0RF meclizine [Antivert] 25 mg tablet,chewable 25 mg PO TID PRN (Reason: dizziness) Qty: 20 0RF No Action Dulera 200-5 mcg/actuation HFA aerosol inhaler 2 puff inhalation BID albuterol sulfate 90 mcg/actuation aerosol powdr breath activated 2 inh inhalation Q6H PRN montelukast 10 mg tablet 10 mg PO DAILY nortriptyline 50 mg capsule 50 mg PO BID polyethylene glycol 3350 17 GM powder in packet 17 g PO DAILY PRN (Reason: Constipation) Patient Comments: constipation maprotiline 50 mg tablet 50 mg PO BID Patient Comments: antidepressant lisinopril 5 MG tablet 5 mg PO DAILY omeprazole 10 mg capsule,delayed release(DR/EC) 40 mg PO DAILY tamsulosin 0.4 mg capsule 0.4 mg PO QHS Primary Care Provider: Tre García Chi Referrals: Raphael Molina MD [Med Staff - Active Staff] - 3-5 Days Tre García Chi, MD [Primary Care Provider] - 3-5 Days Disposition Disposition: Home, Self Care Discharge Date/Time: 08/15/23 13:16
[2023-08-15 11:41] LABS: Absolute Lymphocyte Count 3.24 X10^3/uL (0.83-4.51); Basophil# 0.01 X10^3/uL; Basophil% 0.1 % (0-1); Hematocrit 47.6 % (40-54); Lymphocyte # 3.24 X10^3/ul (0.83-4.51); Lymphocyte % 42.7 % (19-41); Mean Corp Hgb Conc 33.6 g/dL (32-36); Mean Corpuscular Hgb 30.5 pg (27.0-32.0); Mean Corpuscular Volume 90.7 fL (80-94); Mean Platelet Vol. 8.9 fl (6.2-12.0); Monocyte# 0.33 X10^3/uL; Monocyte% 4.3 % (0-10); NRBC Flagged by Analyzer 0 % (0-5); Neutrophil # 3.99 X10^3/uL (2.7-7.7); Neutrophil % 52.6 % (47-70); Platelet Count 156 K/mm3 (150-450); RBC Distribution Width CV 13.2 % (11.6-14.6); RBC Distribution Width SD 44.4 fl (35.1-43.9); Red Blood Count 5.25 M/mm3 (4.6-6.2); White Blood Count 7.6 K/mm3 (4.4-11.0)
[2023-08-15] MEDS: Ondansetron 4 MG/2 ML Vial IV (11:47)
[2023-08-15] MEDS: 0.9% Normal Saline (1000mL) 1,000 ML 150 ML IV (11:47)
[2023-08-15] MEDS: Meclizine HCl 25 MG Tablet PO (11:47)
[2023-08-15 11:53] LABS: Anion Gap 5 (5-15); BUN 15 mg/dL (7-18); Calcium,Total 8.7 mg/dL (8.5-10.1); Chloride 114 mmol/L (98-107); EST Glomerular Filtration Rate 77 mL/min (>60); Est Glom Filt Rate - Afr Amer 93 mL/min (>60); Glucose 134 mg/dL (74-106); Potassium 4.4 mmol/L (3.5-5.1); Sodium Level 142 mmol/L (136-145)
--- OUTSIDE RECORDS SUMMARY | 2023-08-15 12:25 | XMS RPT_ITS | CCD ---
Author Name Unknown Address [id number] [place] [address] Organization [facility] Care Team Providers Care 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 Name Role Phone Binu Bellamy MD Primary Care Provider BINU BELLAMY Primary Care Unavailable ELDERBROCK, BINU Olmedo Referring Unavailable ELDERBROCK, BINU Olmedo Attending Unavailable ELDERBROCK, BINU D Primary Care Unavailable ELDERBROCK, BINU Shara Primary Care Unavailable ELDERBROCK, BINU Olmedo Referring Unavailable ELDERBROCK, BINU Olmedo Primary Care Unavailable BECKY FIERRO Attending Unavailable ELDERBROCK, BINU Olmedo Primary Care Unavailable SRIBECKY Referring Unavailable ELDERBROCK, BINU D Primary Care Unavailable SRIBECKY Referring Unavailable ELDERBROCK, BINU D Primary Care Unavailable ELDERBROCK, BINU Olmedo Attending Unavailable ELDERBROCK, BINU Shara Primary Care Unavailable SRIBECKY Attending Unavailable ELDERBROCK, BINU D Primary Care Unavailable SRI BECKY Cari Referring Unavailable ELDERBROCK, BINU D Primary Care Unavailable SRI BECKY M Referring Unavailable ELDERBROCK, BINU D Primary Care Unavailable ELDERBROCK, BINU D Referring Unavailable GENIE PONCE Attending Unavailable ELDERBROCK, IBNU Shara Primary Care Unavailable ELDERBROCK, BINU D Primary Care Unavailable CUCO MATHIS Referring Unavailable ELDERBROCK, BINU D Primary Care Unavailable ELDERBROCK, BINU D Primary Care Unavailable ELDERBROCK, BINU Shara Attending Unavailable ELDERBROCK, BINU Shara Primary Care Unavailable SRIBECKY Attending Unavailable ELDERBROCK, BINU D Primary Care Unavailable ELDERBROCK, BINU D Referring Unavailable ELDERBROCK, BINU D Primary Care Unavailable ELDERBROCK, BINU D Referring Unavailable Allergies Allergy Classification Reported Allergen(s) Allergy Type Date of Onset Reaction(s) Facility (20 sources) environmental [Other] Propensity to adverse reactions 5 Intolerance [facility] (1 source) OTHER; Translations: [OTHER] Propensity to adverse reactions (disorder) 5 [facility] Repository Medications Current Medications Medication Drug Class(es) [...] Drug Class(es) Dates Sig (Normalized) Sig (Original) [id number] 200 actuat albuterol 0.09 mg/actuat metered dose [...] breath; Translations: [SOB (shortness of breath)] Onset: 04-19-2023 Episodic Other upper respiratory disease (1 source) [...] displacement, lumbar region] Onset: 06-05-2010 06-05-2010 Chronic Viral infection (2 sources) Viral disease; Translations: [Viral infection, unspecified] Episodic Past or Other Problems Problem Classification Problem Date Documented Da te Episodic/Chronic Allergic reactions (20 sources) Eczema; Translations: [Dermatitis, unspecified] Onset: 06-09-2011 06-09-2011 Episodic Diabetes mellitus without complication (2 sources) Increased glucose level; Translations: [Other abnormal glucose] Onset: 09-08-2022 Episodic Hemorrhoids (20 sources) Internal hemorrhoids; Translations: [Other hemorrhoids] Onset: 01-11-2018 01-11-2018 Episodic Other lower respiratory disease (1 source) Other forms of dyspnea; Translations: [PERSON (dyspnea on exertion)] Onset: 03-01-2023 Episodic Other non-epithelial cancer of skin (20 [...] height 170.6 cm Pulm Wstr Work Phone: [facility] 03-09-2023 09:35-0400 Body weight 88.95 kg Binu Bellamy MD Work Phone: [facility] 03-09-2023 09:35-0400 Diastolic blood pressure 78 mm[Hg] Binu Bellamy MD Work Phone: [facility] 03-09-2023 09:35-0400 Heart rate 88 /min Binu Bellamy MD Work Phone: [facility] 03-09-2023 09:35-0400 Respiratory rate 16 /min Binu Bellamy MD Work Phone: [facility] 03-09-2023 09:35-0400 Systolic blood pressure 120 mm[Hg] Binu Bellamy MD Work Phone: [facility] 01-21-2023 09:19-0400 Body height 175.3 cm Becky Fierro PA-C Work Phone: [facility] 01-21-2023 09:19-0400 Body weight 89.18 kg Becky Fierro PA-C Work Phone: [facility] 01-21-2023 09:19-0400 Diastolic blood pressure 70 mm[Hg] Becky Sri PA-C Work Phone: [facility] 01-21-2023 09:19-0400 Heart rate 90 /min Becky Sri PA-C Work Phone: [facility] 01-21-2023 09:19-0400 Respiratory rate 14 /min Becky Sri PA-C Work Phone: [facility] 01-21-2023 09:19-0400 SaO2% (BldA) [Mass fraction] 94 % Becky Sri PA-C Work Phone: [facility] 01-21-2023 09:19-0400 Systolic blood pressure 116 mm[Hg] Becky Sri PA-C Work Phone: [facility] 12-10-2022 08:43-0400 Body weight 88.91 kg Becky Sri PA-C Work Phone: [facility] 09-08-2022 09:140400 Body weight 87.09 kg Binu Bellamy MD Work Phone: [facility] 09-08-2022 09:14-0400 Diastolic blood pressure 78 mm[Hg] Binu Bellamy MD Work Phone: [facility] 09-08-2022 09:14-0400 Heart rate 68 /min Binu Bellamy MD Work Phone: [facility] 09-08-2022 09:14-0400 Respiratory rate 16 /min Binu Bellamy MD Work Phone: [facility] 09-08-2022 09:14-0400 Systolic blood pressure 120 mm[Hg] Binu Bellamy MD Work Phone: [facility] 08-19-2022 09:02-0400 Body temperature 96.91 [degF] Cuco Mathis APRN.CNP Work Phone: [facility] 08-19-2022 09:02-0400 Body weight 88.91 kg Cuco Mathis NUT GRINDER.SEXUAL ASSAULT SOCIAL WORKER Work Phone: [facility] 08-19-2022 09:02-0400 Diastolic blood pressure 76 mm[Hg] Cuco Del NUT GRINDER.SEXUAL ASSAULT SOCIAL WORKER Work Phone: [facility] 08-19-2022 09:02-0400 Heart rate 118 /min Cuco Del NUT GRINDER.SEXUAL ASSAULT SOCIAL WORKER Work Phone: [facility] 08-19-2022 09:02-0400 Respiratory rate 18 /min Cuco Del NUT GRINDER.SEXUAL ASSAULT SOCIAL WORKER Work Phone: [facility] 08-19-2022 09:02-0400 SaO2% (BldA) [Mass fraction] 94 % Cuco Del NUT GRINDER.SEXUAL ASSAULT SOCIAL WORKER Work Phone: [facility] 08-19-2022 09:02-0400 Systolic blood pressure 124 mm[Hg] Cuco Del NUT GRINDER.SEXUAL ASSAULT SOCIAL WORKER Work Phone: [facility] 07-09-2022 10:16-0500 Body weight 89.36 kg Genie Ponce MD Work Phone: [facility] 07-09-2022 10:16-0500 Diastolic blood pressure 65 mm[Hg] Genie Ponce MD Work Phone: [facility] 07-09-2022 10:16-0500 Heart rate 92 /min Genie Ponce MD Work Phone: [facility] 07-09-2022 10:16-0500 SaO2% (BldA) [Mass fraction] 94 % Genie Ponce MD Work Phone: [facility] 07-09-2022 10:16-0500 Systolic blood pressure 126 mm[Hg] Genie Ponce MD Work Phone: [facility] 05-13-2022 08:47-0500 Body weight 88.45 kg Betty Barraza NUT GRINDER.SEXUAL ASSAULT SOCIAL WORKER Work Phone: [facility] 05-13-2022 08:47-0500 Diastolic blood pressure 70 mm[Hg] Betty Tannhof NUT GRINDER.SEXUAL ASSAULT SOCIAL WORKER Work Phone: [facility] 05-13-2022 08:47-0500 Heart rate 98 /min Betty Tannhof NUT GRINDER.SEXUAL ASSAULT SOCIAL WORKER Work Phone: [facility] 05-13-2022 08:47-0500 Respiratory rate 16 /min Betty Tannhof NUT GRINDER.SEXUAL ASSAULT SOCIAL WORKER Work Phone: [facility] 05-13-2022 08:47-0500 SaO2% (BldA) [Mass fraction] 97 % Betty Tannhof NUT GRINDER.SEXUAL ASSAULT SOCIAL WORKER Work Phone: [facility] 05-13-2022 08:47-0500 Systolic blood pressure 114 mm[Hg] Betty Tannhof NUT GRINDER.SEXUAL ASSAULT SOCIAL WORKER Work Phone: [facility] 05-10-2022 09:30-0500 Body temperature 98.29 [degF] Moi Pendlebury NUT GRINDER.SEXUAL ASSAULT SOCIAL WORKER Work Phone: [facility] 05-10-2022 09:30-0500 Body weight 88.45 kg Moi Pendlebury NUT GRINDER.SEXUAL ASSAULT SOCIAL WORKER Work Phone: [facility] 05-10-2022 09:30-0500 Diastolic blood pressure 78 mm[Hg] Moi Pendlebury NUT GRINDER.SEXUAL ASSAULT SOCIAL WORKER Work Phone: [facility] 05-10-2022 09:30-0500 Heart rate 108 /min Moi Pendlebury NUT GRINDER.SEXUAL ASSAULT SOCIAL WORKER Work Phone: [facility] 05-10-2022 09:30-0500 Respiratory rate 18 /min Moi Pendlebury NUT GRINDER.SEXUAL ASSAULT SOCIAL WORKER Work Phone: [facility] 05-10-2022 09:30-0500 SaO2% (BldA) [Mass fraction] 95 % Moi Pendlebury NUT GRINDER.SEXUAL ASSAULT SOCIAL WORKER Work Phone: [facility] 05-10-2022 09:30-0500 Systolic blood pressure 124 mm[Hg] Moi Pendlebury NUT GRINDER.SEXUAL ASSAULT SOCIAL WORKER Work Phone: [facility] 05-03-2022 12:22-0500 Body temperature 97.2 [degF] Camila Comer APRN.SEXUAL ASSAULT SOCIAL WORKER Work Phone: [facility] 05-03-2022 12:22-0500 Body weight 79.56 kg Camila Comer APRN.SEXUAL ASSAULT SOCIAL WORKER Work Phone: [facility] 05-03-2022 12:22-0500 Diastolic blood pressure 76 mm[Hg] Camila Comer NUT GRINDER.SEXUAL ASSAULT SOCIAL WORKER Work Phone: [facility] 05-03-2022 12:22-0500 Heart rate 88 /min Camila Comer NUT GRINDER.SEXUAL ASSAULT SOCIAL WORKER Work Phone: [facility] 05-03-2022 12:22-0500 Respiratory rate 16 /min Camila Comer NUT GRINDER.SEXUAL ASSAULT SOCIAL WORKER Work Phone: [facility] 05-03-2022 12:22-0500 SaO2% (BldA) [Mass fraction] 95 % Camila Comer NUT GRINDER.SEXUAL ASSAULT SOCIAL WORKER Work Phone: [facility] 05-03-2022 12:22-0500 Systolic blood pressure 130 mm[Hg] Camila Comer NUT GRINDER.SEXUAL ASSAULT SOCIAL WORKER Work Phone: [facility] 04-10-2022 08:50-0500 Body weight 88 kg Becky Fierro PA-C Work Phone: [facility] 03-11-2022 13:14-0400 Body weight 88.36 kg Binu Bellamy MD Work Phone: [facility] 03-11-2022 13:14-0400 Diastolic blood pressure 72 mm[Hg] Binu Bellamy MD Work Phone: [facility] 03-11-2022 13:14-0400 Heart rate 80 /min Binu Bellamy MD Work Phone: [facility] 03-11-2022 13:14-0400 Respiratory rate 16 /min Binu Bellamy MD Work Phone: [facility] 03-11-2022 13:14-0400 SaO2% (BldA) [Mass fraction] 95 % Binu Bellamy MD Work Phone: [facility] 03-11-2022 13:14-0400 Systolic blood pressure 118 mm[Hg] Binu Bellamy MD Work Phone: [facility] 03-11-2022 09:11-0400 Body height 172.5 cm Respiratory Wstr Work Phone: [facility] 03-11-2022 09:11-0400 Body weight 88 kg Respiratory Wstr Work Phone: [facility] 02-27-2022 13:20-0400 Body weight 87.09 kg Genie Ponce MD Work Phone: [facility] 02-27-2022 13:20-0400 Diastolic blood pressure 78 mm[Hg] Genie Ponce MD Work Phone: [facility] 02-27-2022 13:20-0400 Heart rate 83 /min Genie Ponce MD Work Phone: [facility] 02-27-2022 13:20-0400 Respiratory rate 16 /min Genie Ponce MD Work Phone: [facility] 02-27-2022 13:20-0400 SaO2% (BldA) [Mass fraction] 98 % Genie Ponce MD Work Phone: [facility] 02-27-2022 13:20-0400 Systolic blood pressure 138 mm[Hg] Genie Ponce MD Work Phone: [facility] 02-23-2022 11:31-0400 Body weight 87.09 kg Betty Tannhof NUT GRINDER.SEXUAL ASSAULT SOCIAL WORKER Work Phone: [facility] 02-23-2022 11:31-0400 Diastolic blood pressure 70 mm[Hg] Betty Tannhof NUT GRINDER.SEXUAL ASSAULT SOCIAL WORKER Work Phone: [facility] 02-23-2022 11:31-0400 Heart rate 94 /min Betty Tannhof NUT GRINDER.SEXUAL ASSAULT SOCIAL WORKER Work Phone: [facility] 02-23-2022 11:31-0400 Respiratory rate 16 /min Betty Tannhof NUT GRINDER.SEXUAL ASSAULT SOCIAL WORKER Work Phone: [facility] 02-23-2022 11:31-0400 SaO2% (BldA) [Mass fraction] 90 % Betty Barraza NUT GRINDER.SEXUAL ASSAULT SOCIAL WORKER Work Phone: [facility] 02-23-2022 11:31-0400 Systolic blood pressure 110 mm[Hg] Betty Barraza NUT GRINDER.SEXUAL ASSAULT SOCIAL WORKER Work Phone: [facility] 02-15-2022 11:10-0400 Body temperature 97.2 [degF] Camila Comer NUT GRINDER.SEXUAL ASSAULT SOCIAL WORKER Work Phone: [facility] 02-15-2022 11:10-0400 Body weight 87.09 kg Camila Comer APRN.SEXUAL ASSAULT SOCIAL WORKER Work Phone: [facility] 02-15-2022 11:10-0400 Diastolic blood pressure 68 mm[Hg] Camila Comer NUT GRINDER.SEXUAL ASSAULT SOCIAL WORKER Work Phone: [facility] 02-15-2022 11:10-0400 Heart rate 95 /min Camila Comer APRN.SEXUAL ASSAULT SOCIAL WORKER Work Phone: [facility] 02-15-2022 11:10-0400 Respiratory rate 18 /min Camila Comer APRN.SEXUAL ASSAULT SOCIAL WORKER Work Phone: [facility] 02-15-2022 11:10-0400 SaO2% (BldA) [Mass fraction] 95 % Camila Comer APRN.SEXUAL ASSAULT SOCIAL WORKER Work Phone: [facility] 02-15-2022 11:10-0400 Systolic blood pressure 106 mm[Hg] Camila Comer NUT GRINDER.SEXUAL ASSAULT SOCIAL WORKER Work Phone: [facility] 02-06-2022 09:11-0400 Body weight 88.45 kg Betty Barraza NUT GRINDER.SEXUAL ASSAULT SOCIAL WORKER Work Phone: [facility] 02-06-2022 09:11-0400 Diastolic blood pressure 68 mm[Hg] Betty Barraza NUT GRINDER.SEXUAL ASSAULT SOCIAL WORKER Work Phone: [facility] 02-06-2022 09:11-0400 Heart rate 87 /min Betty Tannhof NUT GRINDER.SEXUAL ASSAULT SOCIAL WORKER Work Phone: [facility] 02-06-2022 09:11-0400 Respiratory rate 16 /min Betty Alvarezhof NUT GRINDER.SEXUAL ASSAULT SOCIAL WORKER Work Phone: [facility] 02-06-2022 09:11-0400 SaO2% (BldA) [Mass fraction] 96 % Betty Antoniohof NUT GRINDER.SEXUAL ASSAULT SOCIAL WORKER Work Phone: [facility] 02-06-2022 09:11-0400 Systolic blood pressure 116 mm[Hg] Betty Alvarezhof NUT GRINDER.SEXUAL ASSAULT SOCIAL WORKER Work Phone: [facility] 12-03-2021 10:25-0400 Body weight 88.45 kg Berkley Rajguru NUT GRINDER.SEXUAL ASSAULT SOCIAL WORKER Work Phone: [facility] 12-03-2021 10:25-0400 Diastolic blood pressure 58 mm[Hg] Berkley Rajguru NUT GRINDER.SEXUAL ASSAULT SOCIAL WORKER Work Phone: [facility] 12-03-2021 10:25-0400 Systolic blood pressure 122 mm[Hg] Berkley Rajguru NUT GRINDER.SEXUAL ASSAULT SOCIAL WORKER Work Phone: [facility] 09-03-2021 12:49-0400 Body weight 86.73 kg Binu Bellamy MD Work Phone: [facility] 09-03-2021 12:49-0400 Diastolic blood pressure 72 mm[Hg] Binu Bellamy MD Work Phone: [facility] 09-03-2021 12:49-0400 Heart rate 68 /min Binu Bellamy MD Work Phone: [facility] 09-03-2021 12:49-0400 Respiratory rate 14 /min Binu Bellamy MD Work Phone: [facility] 09-03-2021 12:49-0400 Systolic blood pressure 120 mm[Hg] Binu Bellamy MD Work Phone: [facility] 08-27-2021 10:53-0400 Body weight 88 kg Berkley Rajguru NUT GRINDER.SEXUAL ASSAULT SOCIAL WORKER Work Phone: [facility] 08-27-2021 10:53-0400 Diastolic blood pressure 66 mm[Hg] Berkley Roque NUT GRINDER.SEXUAL ASSAULT SOCIAL WORKER Work Phone: [facility] 08-27-2021 10:53-0400 Heart rate 68 /min Berkley Roque NUT GRINDER.SEXUAL ASSAULT SOCIAL WORKER Work Phone: [facility] 08-27-2021 10:53-0400 Systolic blood pressure 122 mm[Hg] Berkley Roque NUT GRINDER.SEXUAL ASSAULT SOCIAL WORKER Work Phone: [facility] Encounters Encounter Date Encounter Type Care Provider Facility Start: 07-02-2023 Telephone encounter Becky Fierro PA-C Work Phone: Pulmonary Medicine Procedures Date Procedure Procedure Detail Performing Clinician [...] teroant ch minimum 3 views Cuco Mathis NUT GRINDER.SEXUAL ASSAULT SOCIAL WORKER Work Phone: Start: 03-11-2022 Nitric oxide gas determination Genie Ponce MD Work Phone: Start: 03-11-2022 Brncdilat rspse spmt ry pre&post-brncdilat admn Genie Ponce MD Work Phone: Plan of Treatment Date Care Activity Detail Author Start: 03-19-2033 Urine microalbumin profile DTaP,Tdap,Td Vaccine (5 - Td or Tdap) [facility] Start: 10-01-2026 Urine microalbumin profile [facility] Start: 09-08-2025 DIABETES SCREEN DIABETES SCREEN [facility] Start: 09-08-2025 Diabetes Screening Diabetes Screenin g [facility] Start: 05-11-2025 DIABETES SCREEN DIABETES SCREEN [facility] Start: 02-23-2025 DIABETES SCREEN DIABETES SCREEN [facility] Start: 09-04-2024 DIABETES SCREEN DIABETES SCREEN [facility] Start: 04-28-2024 DIABETES SCREEN DIABETES SCREEN [facility] Start: 04-19-2024 BP Controlled (<130/80) BP Con trolled (<130/80) [facility] Start: 03-09-2024 Annual PCP Team Computer Information Systems Professor santy Disease Visit Annual PCP Team Chronic Disease Visit [facility] Start: 03-09-2024 BP Controlled (<130/80) BP Con trolled (<130/80) [facility] Start: 01-22-2024 BP CONTROLLED (<130/80) BP CON TROLLED (<130/80) [facility] Start: 01-05-2024 ANNUAL PCP TEAM GRAIN ELEVATOR SUPERINTENDENT SANTY DISEASE VISIT ANNUAL PCP TEAM CHRONIC DISEASE VISIT [facility] Start: 12-11-2023 BP CONTROLLED (<130/80) BP CON TROLLED (<130/80) [facility] Start: 09-09-2023 ANNUAL PCP TEAM GRAIN ELEVATOR SUPERINTENDENT ASNTY DISEASE VISIT ANNUAL PCP TEAM CHRONIC DISEASE VISIT [facility] Start: 09-09-2023 BP CONTROLLED (<130/80) BP CON TROLLED (<130/80) [facility] Start: 09-08-2023 End: 11-08-2023 CBC W Auto Differential panel - Blood CBC + DIFF Lab Routine Essential hypertension, benign Low platelet count (HCC) Expected: 09/08/2023 (Approximate), Expires: 11/08/2023 [facility] Work Phone: Immunizations Immunization Date Immunization Notes Care Provider Fa naif 02-10-2023 influenza (HD-IIV4) vaccine, age 65+ yr, high dose, quadrivalent, PF (FLUZONE HIGH-DOSE) Binu Bellamy MD Work Phone: [facility] 02-10-2023 respiratory syncytia l virus (RSV) vaccine, adjuvanted (AREXVY) Binu Bellamy MD Work Phone: [facility] 03-13-2022 COVID-19 booster vaccine, age 12+ yr, bivalent (PFIZER-BIONTECH) Genie Ponce MD Work Phone: [facility] 03-13-2022 influenza (HD-IIV4) vaccine, age 65+ yr, high dose, quadrivalent, PF (FLUZONE HIGH-DOSE) Binu Bellamy MD Work Phone: [facility] 03-13-2022 influenza, high dose seasonal, preservative-free Genie Ponce MD Work Phone: [facility] 02-18-2021 influenza, high-dose , quadrivalent vaccine (FLUZONE HIGH DOSE QUADRIVALENT) Berkley Ildefonsoguashu NUT GRINDER.SEXUAL ASSAULT SOCIAL WORKER Work Phone: [facility] 08-16-2020 COVID-19 vaccine, ag e 12+ yr (PFIZER-BIONTECH - PURPLE TOP) Berkley Rajguru NUT GRINDER.SEXUAL ASSAULT SOCIAL WORKER Work Phone: [facility] Work Phone: 07-26-2020 COVID-19 vaccine, ag e 12+ yr (PFIZER-BIONTECH - PURPLE TOP) Berkley Rajguru NUT GRINDER.SEXUAL ASSAULT SOCIAL WORKER Work Phone: [facility] Work Phone: 01-22-2020 influenza, high dose seasonal, preservative-free Berkley Rajguru NUT GRINDER.SEXUAL ASSAULT SOCIAL WORKER Work Phone: [facility] 02-28-2019 influenza, high dose seasonal, preservative-free Berkley Rajguru NUT GRINDER.SEXUAL ASSAULT SOCIAL WORKER Work Phone: [facility] 12-29-2018 zoster vaccine recombinant Berkley Rajguru NUT GRINDER.SEXUAL ASSAULT SOCIAL WORKER Work Phone: [facility] 10-28-2018 zoster vaccine recombinant Berkley Rajguru NUT GRINDER.SEXUAL ASSAULT SOCIAL WORKER Work Phone: [facility] 03-02-2018 influenza, high dose seasonal, preservative-free Berkley Rajguru NUT GRINDER.SEXUAL ASSAULT SOCIAL WORKER Work Phone: [facility] 02-09-2017 influenza, high dose seasonal, preservative-free Berkley Rajguru NUT GRINDER.SEXUAL ASSAULT SOCIAL WORKER Work Phone: [facility] 10-01-2016 tetanus and diphther ia toxoids, adsorbed, preservative free, for adult use (5 Lf of tetanus toxoid and 2 Lf of diphtheria toxoid) Berkley Rajguru NUT GRINDER.SEXUAL ASSAULT SOCIAL WORKER Work Phone: [facility] 03-17-2016 influenza, high dose seasonal, preservative-free Berkley Rajguru NUT GRINDER.SEXUAL ASSAULT SOCIAL WORKER Work Phone: [facility] 06-25-2015 pneumococcal polysaccharide vaccine, 23 valent Berkley Rajguru NUT GRINDER.SEXUAL ASSAULT SOCIAL WORKER Work Phone: [facility] 06-12-2014 pneumococcal conjuga te vaccine, 13 valent Berkley Rajguru NUT GRINDER.SEXUAL ASSAULT SOCIAL WORKER Work Phone: [facility] 02-27-2014 influenza, seasonal, injectable Berkley Rajguru NUT GRINDER.SEXUAL ASSAULT SOCIAL WORKER Work Phone: [facility] 04-20-2013 pneumococcal polysaccharide vaccine, 23 valent Berkley Rajguru NUT GRINDER.SEXUAL ASSAULT SOCIAL WORKER Work Phone: [facility] 03-14-2010 influenza virus vacc ine, unspecified formulation Berkley Rajguru NUT GRINDER.SEXUAL ASSAULT SOCIAL WORKER Work Phone: [facility] Work Phone: 04-03-2008 influenza virus vacc ine, unspecified formulation Berkley Rajguru NUT GRINDER.SEXUAL ASSAULT SOCIAL WORKER Work Phone: [facility] Work Phone: 04-03-2008 pneumococcal polysaccharide vaccine, 23 valent Berkley Rajguru NUT GRINDER.SEXUAL ASSAULT SOCIAL WORKER Work Phone: [facility] Work Phone: 08-05-2006 tetanus toxoid, redu gentry diphtheria toxoid, and acellular pertussis vaccine, adsorbed Berkley Rajguru NUT GRINDER.SEXUAL ASSAULT SOCIAL WORKER Work Phone: [facility] Work Phone: 11-02-1996 diphtheria and tetan us toxoids, adsorbed for pediatric use Berkley Rajguru NUT GRINDER.SEXUAL ASSAULT SOCIAL WORKER Work Phone: [facility] Work Phone: Payers Date Payer Category Payer Medicare [employer] MEDICARE A ETNA MEDICARE PPO [id number] 2021-Present [phone] [address] [place] [address] PPO [id number] 2021 Medicare A[employer] MEDICARE A ETNA MEDICARE PPO [id number] 2021-Present [phone] [address] [place] [address] PPO [id number] 2021 Medicare [id number] Social History Date Type Detail Facility Start: 02-06-2022 Tobacco smoking status NHIS Never smoked tobacco [facility] Work Phone: Start: 08-27-2021 End: 04-19-2023 Alcohol intake Current non-drinker of alcohol (finding) [facility] Start: 05-29-2020 End: 05-12-2022 History SDOH Alcohol Frequency 1 [facility] Start: 05-29-2020 History SDOH Alcohol Std Drinks 98 [facility] Start: 05-29-2020 End: 05-12-2022 History SDOH Social Connections Phone 5 [facility] Start: 05-29-2020 End: 05-12-2022 History SDOH Social Connections [facility] 2 [facility] Start: 05-29-2020 End: 05-12-2022 History SDOH Social Connections Living 3 [facility] Start: 05-29-2020 History SDOH Physical Activity DPW 6 [facility] Start: 05-29-2020 Education 18 [facility] Start: 05-11-2014 End: 02-06-2022 Tobacco Comment Non smoking childhood home. [facility] Start: 1945 Sex Assigned At Male [facility] Start: 08-17-2021 End: 05-03-2022 Exposure to SARS-CoV-2 (event) Not sure [facility] Start: 02-06-2022 Tobacco use and exposure Smokeless tobacco non-user [facility] Start: 05-12-2022 History SDOH Alcohol Std Drinks 0 [facility] Start: 05-11-2022 End: 12-10-2022 History of Social function [facility] Start: 05-11-2022 End: 12-10-2022 Social connection and isolation panel [facility] Do you belong to any clubs or organizations such as temple groups, unions, fraternal or athletic groups, or school groups? Yes [facility] Are you now , , , , never or living with a partner? [facility] How often to you hav e a drink containing alcohol? Never [facility] How many standard dr inks containing alcohol do you have on a typical day? Patient does not drink [facility] Do you feel stress - tense, restless, nervous, or anxious, or unable to sleep at night because your mind is troubled all the time - these days [OSQ] Only a little [facility] (I/We) worried whe er (my/our) food would run out before (I/we) got money to buy more. Never true [facility] In the past 12 month s, was there a time when you were not able to pay the mortgage or rent on time? No [facility] Start: 05-12-2019 Gender identity Identifies as male gender (finding) [facility] Start: 01-23-2020 Sexual orientation Heterosexual (finding) [facility] Clinical Notes 02-12-2016 to 07-02-2023 Telephone Encounter - Becky Fierro PA-C - 07/02/2023 11:25 AM ESTTelephone Encounter - Deirdre Brand LPN - 07/02/2023 11:16 AM Tawana Young RPFT - 04/19/2023 11:19 AM EST Note Date & Type Note Facility 07-02-2023 Miscellaneous Notes I sent one script to be filled locally and sent a 3 month supply with refills to mail order. Virginie Patient called. Verified name and date of . Called to make sure message was sent and to let staff know he did go to his PCP today and was given okay to double up on the Dulera 100 mcg/5 and a sedative to help him sleep. He will wait to hear back from staff. Deirdre Brand LPN Patient called. Verified name and date of . Patient reports that he feels the Advair is causing interaction with nortriptyline. Patient started using the Advair 3-4 days ago and the last two nights he has only gotten a couple hours of sleep (total of 2-3 hours of sleep in the two nights) which he read is a interaction. Also caused jitters but did MyChart message about that previously. Patient is asking that he return to Dulera and needs 90 day supply sent to [facility] but needs initial order to get him started sent to [facility]. He has some of the Dulera 100 mcg/5 left but that is not what he was taking most recently and is asking if that can be doubled up as he was most recently taking 200 mcg/5. Please review and advise. Deirdre Brand LPN documented in this encounter [facility] 05-03-2023 Miscellaneous Notes The following approved medication requests have been transmitted electronically. Requested Prescriptions Pending Prescriptions Disp Refills lisinopril (ZESTRIL) 5 mg tablet [Pharmacy Med Name: LISINOPRIL TABS 5MG] 90 tablet 3 Sig: take 1 tablet daily Mayur Kimble APRN.LEAH documented in this encounter [facility] 04-19-2023 Note HNO ID: [id number] Author: Tawana Moore RPFT Service: ? Author Type: Respiratory Therapist Type: Progress Notes Filed: 04/19/2023 11:20 AM Note Text: PULM FUNCTION SMARTBLOCK: Provider: Becky Fierro PA-C Assisting Tech: Tawana Moore RPFT MIP/MEP: 1 [facility] 04-19-2023 Note HNO ID: [id number] Author: Becky Fierro PA-C Service: ? Author Type: Physician Firer Helper Type: Progress Notes Filed: 04/19/2023 2:09 PM [...] other lower urinary tract symptoms (LUTS) 07/05/2007 prison (current) use of inhaled steroids Lumbar discogenic [...] in EMR. IMMUNIZATIONS Prevnar - 06/12/2014 Pneumovax 23 - 06/25/2015, 04/20/2013, 04/03/2008 Influenza - 02/10/2023 [...] kyphoscoliosis. Ext: War (more content not included)... [facility] 04-19-2023 History of Presen t illness Narrative PULM FUNCTION SMARTBLOCK: Provider: Becky Fierro PA-C Assisting Tech: Tawana Moore RPFT MIP/MEP: 1 documented in this encounter [facility] 03-09-2023 Note HNO ID: [id number] Author: Binu Bellamy MD Service: ? 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 Benign non-nodular prostatic hyperplasia with lower [...] Past Histories independently gathered by the clinical director of operations support and the remaining scribed note accurately describes [...] Marilin Schaffer Ma documented in this encounter [facility] 03-01-2023 Note HNO ID: [id number] Author: Lulú Goncalves RT(R) Service: Nuclear Medicine [...] Discontinued PROCEDURE TYPE: NM Stress: 12.3 mCi [id number]-[id number] was administered IV for Rest Imaging at 07:12 by Lulú Goncalves. 33.4 mCi [id number]-[id number] was administered IV for Stress Imaging at 08:35 by Lulú Goncalves. ADMINISTRATION TIME: PATIENT DISCHARGED TO: Ambulatory patient, left NH department area. A Diagnostic radioactive procedure has taken place, with no further precautions necessary other than routine body substance precautions. More information regarding radiation safety can be found using this link: [email or web address] [email or web address] SIGNATURE: RT Juan(R) PATIENT NAME: Valentina Rodríguez DATE: March 01, 2023 TIME: 09:25 AM PAGER/CONTACT #: [facility] 03-01-2023 History of Presen t illness Narrative [...] Discontinued PROCEDURE TYPE: NM Stress: 12.3 mCi [id number]-Qhgnrce was administered IV for Rest Imaging at 07:12 by Lulú Goncalves. 33.4 mCi Kt85h-[id number] was administered IV for Stress Imaging at 08:35 by Lulú Goncalves. ADMINISTRATION TIME: PATIENT DISCHARGED TO: Ambulatory patient, left NH department area. A Diagnostic radioactive procedure has taken place, with no further precautions necessary other than routine body substance precautions. More information regarding radiation safety can be found using this link: [email or web address] uclear%[email or web address] df SIGNATURE: RT Juan(R) PATIENT NAME: Valentina Rodríguez DATE: March 01, 2023 TIME: 09:25 AM PAGER/CONTACT #: documented in this encounter [facility] 01-21-2023 Note HNO ID: [id number] Author: Becky Fierro PA-C Service: ? 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 [facility] 01-21-2023 History of Presen t illness Narrative Images from the original note were not included. 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 IMMUNIZATIONS Prevnar 13 - 06/12/2014 Pneumovax - 06/25/2015, 04/20/2013, 04/03/2008 [...] Becky Fierro PA-C documented in this encounter [facility] 01-04-2023 Note HNO ID: [id number] Author: Binu Bellamy MD Service: ? Author [...] - Exam was compared with the prior [facility] echocardiographic exam performed on 07/26/2013 (Stress). There [...] other lower urinary tract symptoms (LUTS) 07/05/2007 prison (current) use of inhaled steroids Lumbar discogenic [...] clear to auscu (more content not included)... [facility] 12-11-2022 Miscellaneous Notes Spoke with patient. Fluticasone [...] Blanca Ponce LPN documented in this encounter [facility] 12-10-2022 Note HNO ID: [id number] Author: MAICOL Velazco Service: ? Author Type: [...] DATE: December 10, 2022 TIME: 9:14 AM [facility] 12-10-2022 Note HNO ID: [id number] Author: MAICOL Velazco Service: ? Author Type: Respiratory Therapist Type: Progress Notes Filed: 12/10/2022 9:15 AM Note Text: PULM FUNCTION SMARTBLOCK: Provider: Becky Fierro PA-C Assisting Tech: Tawana Moore RPFT Exhaled Nitric Oxide: 1 [facility] 12-10-2022 Note HNO ID: [id number] Author: Becky Fierro PA-C Service: ? Author Type: Physician Firer Helper Type: Progress Notes Filed: 12/10/2022 9:19 AM [...] other lower urinary tract symptoms (LUTS) 07/05/2007 prison (current) use of inhaled steroids Lumbar discogenic [...] fevers, chills, nights (more content not included)... [facility] 12-10-2022 Procedure note Associated Ord er(s): NITRIC [...] TIME: 9:14 AM documented in this encounter [facility] 12-10-2022 History of Presen t illness Narrative PULM FUNCTION SMARTBLOCK: Provider: Becky Fierro PA-C Assisting Tech: Tawana Moore RPFT Exhaled Nitric Oxide: 1 documented in this encounter [facility] 12-10-2022 History of Presen t illness Narrative [...] other lower urinary tract symptoms (LUTS) 07/05/2007 prison (current) use of inhaled steroids Lumbar discogenic [...] Ref Range & Units 2 mo ago [place] IgE <0.35 kU/l <0.35 [place] Class Class 0 Class 0 Eddie [...] Becky Fierro PA-C documented in this encounter [facility] 12-07-2022 Miscellaneous Notes Spoke with patient by phone. [facility] to deliver Dulera in 3-5 days. He has 3 days of medication available currently. Advised patient to contact the office should he need a temporary supply of Dulera sent locally. Bessy Barron LPN documented in this encounter [facility] 09-18-2022 Miscellaneous Notes Patient phones requesting refills as follows: Requested Prescriptions Pending Prescriptions Disp Refills albuterol HFA (PROVENTIL HFA, VENTOLIN HFA) 90 mcg/actuation inhaler 3 Each 3 Sig: Inhale 2 Puffs as instructed every 4 hours as needed for wheezing/shortness of breath. Please review and advise. Bessy Barron LPN documented in this encounter [facility] 09-08-2022 Note HNO ID: [id number] Author: Binu Bellamy MD Service: ? Author Type: Physician Type: Progress Notes Filed: 09/08/2022 9:38 AM Note Text: Chief Complaint Patient presents with: 6 Month Exam HPI Valentina Rodríguez is a 77 year old male who presents here today for 6 month follow up. He has an advanced directive, just recently updated it with his Health Commissioner. Will bring updated copy for our records. [...] other lower urinary tract symptoms (LUTS) 07/05/2007 prison (current) use of inhaled steroids Lumbar discogenic [...] likely musculoskeletal pain. (more content not included)... [facility] 09-08-2022 History of Presen t illness Narrative Chief Complaint Patient presents with: 6 Month Exam HPI Valentina Rodríguez is a 77 year old male who presents here today for 6 month follow up. He has an advanced directive, just recently updated it with his Health Commissioner. Will bring updated copy for our records. 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 Male erectile disorder Other intervertebral disc degeneration, lumbosacral region Overweight Personal history of other malignant neoplasm of skin Personal history of tobacco use Rosacea Unilateral primary osteoarthritis, right knee Previous Surgical History PAST SURGICAL HISTORY Procedure Laterality Date CATARACT EXTRACTION HX Bilateral 2019 COLONOSCOPY FLX DX W/COLLJ SPEC WHEN PFRMD 09/26/2001 Colonoscopy-repeat in -2011 COLONOSCOPY FLX DX W/COLLJ SPEC WHEN PFRMD 11/03/2011 Colonoscopy COLONOSCOPY SCRN NOT HIGH RISK 06/18/2020 EGD 06/18/2020 PAST SURGICAL HISTORY OF 10 yrs ago BCC removed by Dr.Geovanny Cebul PAST SURGICAL HISTORY OF 2004 Premalignant lesion [...] Past Histories independently gathered by the clinical director of operations support and the remaining scribed note accurately describes [...] Natalie Youngblood Ma documented in this encounter [facility] 08-24-2022 Miscellaneous Notes Patient phones requesting refills as follows: He would like a 3 month supply sent to his mail order pharmacy. Requested Prescriptions Pending Prescriptions Disp Refills mometasone-formoterol (DULERA) 100-5 mcg/actuation inhaler 1 Each 5 Sig: Inhale 2 Puffs as instructed twice daily. Please review and advise. Kamala Saunders Ma documented in this encounter [facility] 08-19-2022 Note HNO ID: [id number] Author: RT Carina(R) Service: Radiology Author Type: Technologist Type: Progress [...] RT Carina(R) August 19, 2022 9:18 AM [facility] 08-19-2022 Note HNO ID: [id number] Author: Cuco Mathis APRN.SEXUAL ASSAULT SOCIAL WORKER Service: ? 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 Author Type: Physician Type: Progress Notes Filed: 07/09/2022 4:16 PM Note Text: . 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 [facility] 07-09-2022 History of Presen t illness Narrative Images from the original note were not included. . 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 May use over the counter cold and cough medication as needed. Stay well hydrated. May use Tessalon Perles three times daily for cough. Get lab completed. Start Singulair 10 mg at bedtime. Get repeat chest xray in 1 month. Follow up pending test results or sooner as needed. documented in this encounter [facility] 05-13-2022 History of Presen t illness Narrative [...] seen several times in family medicine and [facility] care for cold/URI symptoms. 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 Male erectile disorder Other intervertebral disc degeneration, lumbosacral region Overweight Personal history of other malignant neoplasm of skin Personal history of tobacco use Rosacea Unilateral primary osteoarthritis, right knee PAST SURGICAL HISTORY Procedure Laterality Date CATARACT EXTRACTION HX Bilateral 2019 COLONOSCOPY FLX DX W/COLLJ SPEC WHEN PFRMD 09/26/2001 Colonoscopy-repeat in -2011 COLONOSCOPY FLX DX W/COLLJ SPEC WHEN PFRMD [...] R05.1 - May use Tessalon Perles or [id number] cold and cough medication as needed for [...] effects were discussed and patient voices understanding. Betty Barraza APRN.SEXUAL ASSAULT SOCIAL WORKER This note was partially generated using [employer] recognition system. Note was reviewed for accuracy. There may be minor misspellings or grammar miscues with [employer] voice recognition. documented in this encounter [facility] 05-10-2022 Instructions Moi Plummer APRN.LEAH - 05/10/2022 10:23 AM EST How to Manage Common Symptoms Associated with COVID for Adults Fever- Fever is a temperature over 100.4 F and can occur when the body is fighting an infection. To help treat a fever: Drink plenty of fluids and stay well hydrated. Eat small amounts of easy to digest food. Rest. Your body needs rest to recover, but getting up and moving around the house frequently is a good idea. You should try to continue doing your normal daily activities (bathing, toileting, grooming, cooking), though you will probably feel tired, and need to rest often. Avoid any heavy activity or exercise, as this will increase your body temperature. Dress in light clothing and stay covered in a light sheet. Keep the room temperature cool. Take a slightly warm (not cold or cool) bath, or apply damp washcloths to the forehead and wrists. Cough- Cough is a common symptom associated with COVID and can be bothersome. To help treat a cough: Stay well hydrated. Try warm water or tea with lemon and/or honey to help soothe the cough. Use a humidifier to add moisture to the air. Try a product with menthol, like a cough drop or a rub for your chest such as Vicks, which can help reduce cough. Try cough drops. Avoid smoking and other strong odors or perfumes. Try breathing exercises to keep your lungs open and clear. Take a big deep breath through your nose and hold for 5 seconds before slowly releasing. Repeat frequently, while you are awake. Congestion- Runny nose or nasal congestion can occur with COVID. Treatment can help relieve symptoms: Try OTC nasal saline spray, or nasal saline rinse to relieve mucus congestion. Nasal strips can help keep nasal passages open, to increase airflow. Elevating your head with an extra pillow in bed can help reduce congestion. Using a humidifier can increase moisture in the air, and make breathing easier. Sore Throat- Another common symptom with COVID, can be managed at home by: Stay well hydrated. Gargle with salt water - mix teaspoon salt with 1 cup of warm water and gargle. This helps to loosen mucus in the back of the throat and may reduce discomfort. Try ice chips, popsicles or lozenges to soothe the throat. Nausea/Vomiting/Diarrhea- These are common symptoms, and staying hydrated is most important. If you are nauseous or vomiting, start with small sips of water every 10-15 minutes and increase as tolerated. You can try sucking an ice cube too. If tolerating, you can try pedialyte or Gatorade, or flat sprite or ana-jaziel. Start slowly and increase as you are able to. Instead of meals, try smaller, more frequent snacks. Try eating bland foods like crackers, toast, rice, and applesauce. Avoid spicy, greasy or fried foods and dairy containing foods. Even if you aren't feeling hungry due to lack of smell or taste, it is important to try to take in some food when you are able. After drinking and eating, rest in an upright position for up to two hours as needed to help decrease nauseous feelings. Try closing your eyes, avoid moving and watching TV. Avoid strong odors that can make you feel more nauseated. When to seek emergency medical attention Look for emergency warning signs for COVID-19. If having any of these symptoms, seek emergency medical care immediately: Trouble breathing Persistent pain or pressure in the chest New confusion Inability to wake or stay awake Bluish lips or face *This list is not all possible symptoms. Please call your medical provider for any other symptoms that are severe or concerning to you. documented in this encounter [facility] 05-10-2022 History of Presen t illness Narrative Subjective HPI Nontoxic-appearing male presents urgent care chief complaint cough nasal congestion. Duration of symptoms 3 weeks. Associated symptoms cough nasal congestion. Patient states was seen here last Wednesday. Placed on doxycycline and prednisone. States symptoms dramatically improved. Presents today with new onset body aches chills weakness. Patient states he did feel febrile yesterday. No known sick contacts. Denies any significant pain. Denies any fever body aches chills productive cough chest pain shortness of breath pleuritic pain hemoptysis nausea vomiting abdominal pain change in bowel or bladder habits. Past medical history prescription medication use and allergies reviewed. 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 Negative for fever. HENT: Positive for congestion. Negative for ear discharge, ear pain, sinus pain and sore throat. Eyes: Negative for blurred vision, pain, discharge and redness. Respiratory: Positive for cough. Negative for hemoptysis, sputum production, shortness of breath, wheezing and stridor. Cardiovascular: Negative for chest pain. Gastrointestinal: Negative for abdominal pain, diarrhea, nausea and vomiting. Musculoskeletal: Positive for myalgias. Skin: Negative for itching and rash. Neurological: Negative for dizziness and headaches. Objective Physical Exam Constitutional: General: He is not in acute distress. Appearance: He is not diaphoretic. HENT: Head: Normocephalic. Nose: Congestion present. Mouth/Throat: Mouth: Mucous membranes are moist. Pharynx: Oropharynx is clear. No oropharyngeal exudate or posterior oropharyngeal erythema. Eyes: Conjunctiva/sclera: Conjunctivae normal. Pupils: Pupils are equal, round, and reactive to light. Cardiovascular: Rate and Rhythm: Normal rate and regular rhythm. Heart sounds: Normal heart sounds. Pulmonary: Effort: Pulmonary effort is normal. No tachypnea, accessory muscle usage or respiratory distress. Breath sounds: Normal breath sounds. No stridor. No wheezing, rhonchi or rales. Abdominal: Palpations: Abdomen is soft. Tenderness: There is no abdominal tenderness. Musculoskeletal: Cervical back: Normal range of motion and neck supple. No rigidity or tenderness. Lymphadenopathy: Cervical: No cervical adenopathy. Skin: General: Skin is warm and dry. Neurological: Mental Status: He is alert and oriented to person, place, and time. ASSESSMENT/PLAN: 1. Viral illness - ICD9: 079.99, ICD10: B34.9 (primary diagnosis) - COVID WITH FLUA+B, ROUTINE 2. Acute cough - ICD9: 786.2, ICD10: R05.1 - CHEST 2V FRONTAL/LAT Patient nontoxic-appearing. Vital signs within normal limits. Suspicious of new viral illness. Patient states original symptoms did improve. No advantageous lung sounds. Low suspicion for bacterial infection at this time. Will test for COVID-19 and influenza. Chest x-ray will be obtained. We will treat conservatively at this time. Red flags for prompt reevaluation discussed. Patient was educated on supportive therapies. Patient will follow up with primary care provider as needed. Patient was instructed to immediately proceed to emergency room for any new, worsening, or symptoms lasting longer than anticipated. The patient's clinical presentation is otherwise unremarkable at this time. Based on exam and clinical finding, the patient is stable for discharge. Plan of care was discussed with patient. Patient verbalizes understanding and agrees to plan of care. This note was generated using [employer] software. It may contain errors in wording, punctuation, or spelling. Moi Plummer APRN.LEAH documented in this encounter [facility] 05-03-2022 History of Presen t illness Narrative CC: Patient presents with: Cough: Pt reported chest congestion , x10 days. HPI: Valentina Rodríguez is a 77 year old male who presents to the office with complaint of head congestion and cough, nonproductive for 10 days. Symptoms are worsening Associated symptoms includes cough. Denies body aches, fever, dyspnea, fatigue, nausea, vomiting , and diarrhea, pleuritic pain. Treatments tried include nothing so far. with no relief of symptoms. Sick contacts: unknown. History of asthma, frequent episodes of bronchitis, chronic bronchitis, bronchiectasis or COPD: No Smoker: No Seasonal/environmental allergies: No The ROS is otherwise negative. The patient's pmh, medications, allergies, and past visits are reviewed. PHYSICAL EXAM: BP 130/76 Pulse 88 Temp 36.2 C (97.2 F) Resp 16 Wt 79.6 kg (175 lb 6.4 oz) SpO2 95% BMI 26.75 kg/m General appearance: alert, cooperative, pleasant, in no acute distress Head: Normocephalic Eyes: EOM's intact, conjunctiva pink and moist, no icterus, sclera white, non-injected Ears: Right ear: External ear/canal- Normal, TM - clear with good landmarks. Left ear: External ear/canal- Normal, TM - clear with good landmarks Oropharynx:moist without lesions, No erythema, exudates or tonsillar hypertrophy. Heart: Negative. RRR without obvious murmur, gallop, or rubs. No ectopy. 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 doxycycline monohydrate 100 mg tablet Take 1 tablet by mouth twice daily for 5 days. predniSONE (DELTASONE) 20 mg tablet Take 1 tablet by mouth once daily for 5 days. FAMILY HISTORY Problem Relation Age of Onset Anxiety disorder Mother Depression Mother Stroke Mother Hypertension Mother Cancer Father pancreatic cancer Social History Tobacco Use Smoking status: Never Smokeless tobacco: Never Tobacco comments: Non smoking childhood home. Substance Use Topics Alcohol use: No Drug use: No ASSESSMENT/PLAN: 1. URI, acute - ICD9: 465.9, ICD10: J06.9 (primary diagnosis) 2. Rhinosinusitis - ICD9: 473.9, ICD10: J31.0, J32.9 Doxycycline bid for 5 days and prednisone daily for 5 days. Prescription instructions reviewed with patient as applicable. Potential red flag symptoms discussed with the patient. Reviewed appropriate action plan to take if red flag symptoms occur. Patient agreeable to treatment plan. Camila Comer APRN.LEAH documented in this encounter [facility] 04-30-2022 Miscellaneous Notes Patient notified of results, verbalizes understanding of instructions. Bere Goodman LPN Can you please call the patient and let him know that his flu and COVID test were negative. I would still recommend that he continue supportive care at home, may use any [id number] cold and cough medications as needed for symptom management. As discussed during office visit if congestion and sinus drainage is getting worse I can send in an antibiotic. Please let me know how he is doing. Thank you. Betty Barraza APRN.LEAH documented in this encounter [facility] 04-10-2022 History of Presen t illness Narrative Patient: Valentina Rodríguez PCP: Binu Bellamy MD CC: cough and SOB HPI: Valentina Rodríguez 77 year old male never smoker PMH significant for HTN, GERD, BPH, allergies on IT (stopped with COVID pandemic), depression and chronic cough. DAMARI negative. Referred to Dr. Roca for possible VCD. Patient was started on Asmanex by PCP which he has been taking for 8-10 years. Cough completely resolved with the use of ICS until he developed Covid in May 2021. Patient was not hospitalized nor did he require treatment. Cough has lessened, however, he has persistent SOB and chest congestion. Covid testing negative. Treated with antibiotics and prednisone without improvement in symptoms. Evaluation for possible VTE negative. CXR without infiltrates. Lab testing pertinent for mild leukocytosis, however, patient had just completed course of oral steroids. Since the last Pulmonary Clinic visit 02/27/2022, the patient has not required ED care for exacerbation. There has been no hospital admission for exacerbation. Claims to be consistently compliant with prescribed maintenance Rx Dulera twice daily. Has not been using rescue bronchodilator. Intermittent coughing with phlegm. No hemoptysis. Stopped taking Mucinex, wasn't making a difference . No wheezing. No dyspnea at rest. Exertional dyspnea with working outside and walking long distances. Fatigue improved. 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 mometasone-formoterol (DULERA) 100-5 mcg/actuation inhaler Inhale 2 Puffs as instructed twice daily. omeprazole (PRILOSEC) 20 mg capsule TAKE [...] - 03/13/2022, 08/29/2021, 02/21/2021, 08/16/2020, 07/26/2020 ROS: General: Generally feels well. Appetite good. Eyes, Ears, nose, throat: No post nasal drip, rhinorrhea, purulent nasal discharge, epistaxis. Hoarseness with inhaler use. Vision stable. Cardiac: No angina, edema, orthopnea. Resp: See HPI. GI: No heartburn, dysphagia, diarrhea. Musculoskeletal: No pain. Neuro: No headache, focal weakness, tremor. Skin: No rash. Otherwise negative. PHYSICAL EXAMINATION: BP (P) 122/68 Pulse (P) 67 Resp (P) 15 Wt 88 kg (194 lb) SpO2 (P) 100% BMI 29.58 kg/m Gen: No acute distress. Cooperative with examination. ENT: Oral hygeine and dentition good. Pharynx clear. No sign of oral thrush. Resp: No stridor, accessory respiratory muscle use, supra-sternal or intercostal retractions. No wheezes, crackles. CV: Regular rythm. Heart tones normal. Radial pulses normal. Abd: Non distended. MSK: No kyphoscoliosis. Ext: Warm and well perfused. No clubbing, cyanosis, edema. Skin: No rash, ecchymoses. Neuro: Mental status normal. Affect normal. No tremor. DATA: DAMARI 2013: Negative for bronchial hyperactivity. FEV1 8% decrease Exhaled nitric oxide (Fiorella), 03/11/2022: 22 (normal < 20). PFT, 03/11/2022 IMPRESSION: Spirometry is normal. The RV and RV/TLC are elevated indicating air trapping. Electronically Signed On 03-11-2022 13:12:56 EDT by Genie Ponce M.D. ASSESSMENT/PLAN: 1. Cough variant asthma - ICD9: 493.82, ICD10: J45.991 (primary diagnosis) DAMARI negative in 2013. However, patient symptoms and PFT consistent with small airway disease. Continue Dulera 2 inhalations twice daily. Rinse mouth after each use to help prevent oral thrush. Demonstrated use of Aerochamber with inhaler to help with hoarseness. Albuterol HFA inhaler, 2 inhalations 10-15 minutes prior to activities associated with shortness of breath, and as needed for rescue relief of shortness of breath or wheezing, up to 4 times daily. Up to date on annual influenza, pneumococcal and Covid 19 vaccines. 2. SOB (shortness of breath) - ICD9: 786.05, ICD10: R06.02 See #1. 3. History of environmental allergies - ICD9: V15.09, ICD10: Z91.09 Previously on immunotherapy per [facility], however, stopped with the pandemic. Will check labs and consider adding Singulair to regimen. - IGE BLD - EOSINOPHIL ABS COUNT - [facility] [place] [facility] 4. History of COVID-19 - ICD9: V12.09, ICD10: Z86.16 5. 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 Advised him that Flomax and Prilosec were refilled for a year supply on 03/19/22 to [facility]. Pt thinks they had an error on [facility]. Marilin Schaffer Ma Patient is calling stating [facility] called [facility] and stated his medications was denied. documented in this encounter [facility] 03-19-2022 Miscellaneous Notes OK to refill as ordered Binu Bellamy MD Patient phones requesting refills as follows: Requested Prescriptions Pending Prescriptions Disp Refills omeprazole (PRILOSEC) 20 mg capsule [Pharmacy Med Name: OMEPRAZOLE DR CAPS 20MG] 90 capsule 3 Sig: TAKE 1 CAPSULE DAILY BEFORE BREAKFAST (ONE-HALF HOUR BEFORE MEAL). tamsulosin (FLOMAX) 0.4 mg [Pharmacy Med Name: TAMSULOSIN HCL CAPS 0.4MG] 90 capsule 3 Sig: TAKE 1 CAPSULE DAILY AT BEDTIME JOSELIN-03/11/22 Labs-02/23/22 NOV-09/08/22 med filled 04/28/21 Please review and advise. Bere Goodman LPN documented in this encounter [facility] 03-12-2022 Miscellaneous Notes See separate phone encounter. Bessy Barron LPN documented in this encounter [facility] 03-11-2022 History of Presen t illness Narrative Chief Complaint Patient presents with: F/U 6 Month HPI Valentina Rodríguez is a 77 year old male who presents here today for 6 month follow up. Pt here today for a 6 month follow up. Recently seen by Betty Barraza, LEAH and Pulmonary. GI/Uro - Denies any stomach or bowel issues, uses Miralax daily, doing well. Currently taking Flomax 0.4 mg once daily, which works well for him. Last PSA done 09/04/21. GERD - Stable with use of Prilosec 20 mg once daily. Asthma - Has been being seen by Betty Barraza, LEAH and Pulmonary due to increased sob and fatigue. Recently treated with abx and Prednisone due to symptoms. None of the treatments have helped him. Had PFT completed this morning. Pt has been off the Asmanex 110 mcg inhaler for the past week due to testing. Unsure of when he's supposed to resume Asmanex. Pt has held off on getting Covid vaccine and Flu shot due to his ongoing symptoms of feeling ill. Pt notes that Dr. Ponce is unsure if this is related to his asthma flare up or due to long covid. Pt is wanting to get recommendations from Primary Care and Pulmonary before receiving Flu and new Covid booster. Will then receive from local pharmacy. had Covid about 1 month ago. HTN - Denies checking BP often, now occasionally. Denies having symptoms of chest pain. Occasionally will have dizziness upon standing, not frequently. On current regimen of Lisinopril 5 mg once daily. Depression - Follows with Berkley Dong. On current regimen of Nortriptyline 50 mg 1 tab po bid. States he's doing well at current time on this medication. Notes that he's not really seeing her anymore and PCP can now manage. Reports that no one has been able to dx this but will break out in a sweat at any time with no activity over the past 2-3 years. This was discussed with Dr. Naqvi, but was not able to come up with any cause. This will occur why laying in bed or sitting in a chair. This has occurred since before being on depression medications. - Asking about Flu Covid vaccine and his symptoms. Past medical history, appointments, medications, allergies reviewed. [...] other lower urinary tract symptoms (LUTS) 07/05/2007 prison (current) use of inhaled steroids Lumbar discogenic [...] on File Prior to Visit Medication Sig doxycycline (VIBRA-TABS) 100 mg tablet Take 1 tablet by mouth twice daily for 10 days. nortriptyline (PAMELOR) 50 mg capsule Take 1 capsule by mouth twice daily. lisinopril (ZESTRIL, PRINIVIL) 5 mg tablet Take 1 tablet by mouth once daily. mometasone (ASMANEX TWISTHALER) 110 mcg/ actuation (30) twisthaler USE 1 INHALATION DAILY INSTRUCTED (EXPIRES 45 DAYS) omeprazole (PRILOSEC) 20 mg capsule Take 1 capsule by mouth daily before breakfast. 1/2 hr before meal. tamsulosin (FLOMAX) 0.4 mg Take 1 capsule by mouth daily at bedtime. polyethylene glycol 3350 (MIRALAX, GLYCOLAX) 17 gram packet Take 1 Packet by mouth twice daily. No current facility-administered medications on file prior to visit. Social History Social History Tobacco Use Smoking status: Never Smokeless tobacco: Never Tobacco comments: Non smoking childhood home. Substance Use Topics Alcohol use: No Drug use: No EXAM: BP 118/72 (BP Site: Left Arm, BP Position: Sitting, BP Cuff Size: Regular Adult) Pulse 80 Resp 16 Wt 88.4 kg (194 lb 12.8 oz) SpO2 95% BMI 29.71 kg/m General Appearance: Well appearing, alert, in no acute distress, well-hydrated, well nourished.. Lungs: Lungs clear to auscultation. No wheezing, rhonchi, rales.. Heart: RRR without murmur, gallop, or rubs. No ectopy. Health Maintenance List BP CONTROLLED (<130/80) Never done COVID-19 VACCINE(5 - Booster for Pfizer series) due on 10/24/2021 INFLUENZA(1) due on 01/29/2022 ANNUAL PCP TEAM CHRONIC DISEASE VISIT due on 02/23/2023 DIABETES SCREEN due on 02/23/2025 DTAP,TDAP,TD(4 - Td or Tdap) due on 10/01/2026 ADVANCE DIRECTIVE DISCUSSION Completed HEPATITIS C SCREENING Completed SHINGRIX VACCINE Completed PNEUMOCOCCAL: 65+ Completed Data reviewed Appointment on 02/23/2022 Component Date Value WBC 02/23/2022 13.98 (A) RBC 02/23/2022 5.71 Hemoglobin 02/23/2022 17.1 (A) Hematocrit 02/23/2022 53.3 (A) MCV 02/23/2022 93.3 MCH 02/23/2022 29.9 MCHC 02/23/2022 32.1 RDW-CV 02/23/2022 13.3 Platelet Count 02/23/2022 194 MPV 02/23/2022 10.8 NRBC 02/23/2022 0.0 Absolute nRBC 02/23/2022 <0.01 Neut% 02/23/2022 47.0 Abs Neut (Segs + Bands) 02/23/2022 6.57 Lymph% 02/23/2022 43.0 Abs Lymph (Normal + Reac* 02/23/2022 6.15 (A) [place]% 02/23/2022 5.0 Abs [place] 02/23/2022 0.70 Eosin% 02/23/2022 1.0 Abs Eosin 02/23/2022 0.14 Baso% 02/23/2022 0.0 Abs Baso 02/23/2022 0.00 Realym% 02/23/2022 1.0 [place] % 02/23/2022 2.0 Myelo % 02/23/2022 1.0 Left Shift 02/23/2022 Present Platelet Estimate 02/23/2022 Adequate Red Cell Morph 02/23/2022 Reviewed: unremarkable Diff Type 02/23/2022 Manual Protein, Total 02/23/2022 6.6 Albumin 02/23/2022 4.4 Calcium, Total 02/23/2022 9.7 Bilirubin, Total 02/23/2022 0.8 Alkaline Phosphatase 02/23/2022 102 AST 02/23/2022 29 ALT 02/23/2022 39 Glucose 02/23/2022 91 BUN 02/23/2022 15 Creatinine 02/23/2022 1.00 Sodium 02/23/2022 138 Potassium 02/23/2022 4.7 Chloride 02/23/2022 101 CO2 02/23/2022 23 Anion Gap 02/23/2022 14 Estimated Glomerular Santos* 02/23/2022 77 D Dimer 02/23/2022 240 D Dimer Age-related Cuto* 02/23/2022 780 Reviewed 02/23/2022 MD DINESH. Orders Only on 02/15/2022 Component Date Value COVID 19 Result 02/15/2022 SARS-CoV-2 (Agent of COVID-19) Not Detected by RT-PCR or equivalent method. Influenza A PCR 02/15/2022 Negative for Influenza A by RT-PCR Influenza B PCR 02/15/2022 Negative for Influenza B by RT-PCR Office Visit on 02/06/2022 Component Date Value COVID 19 Result 02/06/2022 SARS-CoV-2 (Agent of COVID-19) Not Detected by RT-PCR or equivalent method. Influenza A PCR 02/06/2022 Negative for Influenza A by RT-PCR Influenza B PCR 02/06/2022 Negative for Influenza B by RT-PCR Appointment on 01/26/2022 Component Date Value WBC 01/26/2022 7.29 RBC 01/26/2022 5.04 Hemoglobin 01/26/2022 15.7 Hematocrit 01/26/2022 45.4 MCV 01/26/2022 90.1 MCH 01/26/2022 31.2 MCHC 01/26/2022 34.6 RDW-CV 01/26/2022 13.0 Platelet Count 01/26/2022 150 MPV 01/26/2022 9.2 Neut% 01/26/2022 56.0 Abs Neut 01/26/2022 4.08 Lymph% 01/26/2022 35.8 Abs Lymph 01/26/2022 2.61 [place]% 01/26/2022 7.0 Abs [place] 01/26/2022 0.51 Eosin% 01/26/2022 0.5 Abs Eosin 01/26/2022 0.04 Baso% 01/26/2022 0.3 Abs Baso 01/26/2022 <0.03 Immature Gran % 01/26/2022 0.4 Abs Immature Gran 01/26/2022 0.03 NRBC 01/26/2022 0.0 Absolute nRBC 01/26/2022 <0.01 Diff Type 01/26/2022 Auto ASSESSMENT/PLAN: 1. Essential hypertension, benign - ICD9: 401.1, ICD10: I10 (primary diagnosis) - good control - Continue current medication(s) - Recommended regular aerobic exercise. - Recommend home blood pressure monitoring, to bring results in on next visit - Goal of BP <130/80 2. Recurrent major depressive disorder, in full remission (HCC) - ICD9: 296.36, ICD10: F33.42 - Stable on current regimen - Continue current medication regimen. 3. Benign non-nodular prostatic hyperplasia with lower urinary tract symptoms - ICD9: 600.91, ICD10: N40.1 - Stable - Continue current medication regimen. 4. SOB (shortness of breath) - ICD9: 786.05, ICD10: R06.02 - Cont f/u with Pulmonary 5. Fatigue, unspecified type - ICD9: 780.79, ICD10: R53.83 - Stable 6 mo f/u with labs I agree with the Chief Complaint, ROS, and Past Histories independently gathered by the clinical director of operations support and the remaining scribed note accurately describes my personal service to the patient. Medical Decision Making: Problems: Moderate: 2+ stable chronic illnesses Risk: Moderate: Drug management Medical Decision Making Level: 4 - Moderate Binu Bellamy MD The documentation for this note was completed by Natalie Youngblood Ma acting as scribe for Binu Bellamy MD. March 11, 2022 1:26 PM. Natalie Youngblood Ma documented in this encounter [facility] 03-11-2022 Procedure note Associated Ord er(s): NITRIC OXIDE, EXHALED RESPIRATORY THERAPY ORAL EXHALED NITRIC OXIDE SERVICE DATE: 03/11/2022 SERVICE TIME: 9:13 AM Oral Exhaled Nitric Oxide measurement: 22.0 (ppb) Normal: Adult 5-20 ppb, pediatric (<12 [...] Oral Exhaled Nitric Oxide (ppb) 03/11/2022 22.0 NAME: MAICOL Velazco PATIENT NAME: Valentina Rodríguez DATE: March 11, 2022 TIME: 9:13 AM documented in this encounter [facility] 03-11-2022 History of Presen t illness Narrative PULM FUNCTION SMARTBLOCK: Provider: Genie Ponce MD Assisting Tech: MAICOL Velazco Spirometry: 1 LV - Box: 1 Exhaled Nitric Oxide: 1 documented in this encounter [facility] 02-27-2022 History of Presen t illness Narrative Images from the original note were not included. . Respiratory [facility] Note Patient name: Valentina Rodríguez PCP: Binu Bellamy MD CC: Shortness of breath HPI: Valentina Rodríguez 77 year old male never smoker with PMH significant for HTN, GERD, BPH, allergies on IT (stopped with COVID pandemic), depression last seen in pulmonary clinic in 2016 for chronic cough. DAMARI negative. Referred to Dr. Roca for possible VCD. Due to persistent cough, he was started on had been on Asmanex by his PCP which she has been taking for for 8-10 years. Cough completely resolves with use of ICS. He was doing well until he developed COVID infection 05/2021. At that time he had severe coughing. He was not hospitalized nor did he require treatment. Cough has lessened over time but now he has noted shortness of breath and chest congestion. COVID test has been negative. He has been treated with antibiotics and prednisone without improvement in his dyspnea or chest congestion. No sputum production. No audible wheezing. No chest pain, no fevers. Asmanex has not been helpful. Evaluation for possible VTE negative. Feels as if he is unable to take a deep breath. Laboratory testing pertinent for mild leukocytosis but patient had just completed course of oral steroids. Chest x-ray without any infiltrates. DATA: DAMARI 2013: Negative for bronchial hyperactivity. FEV1 8% decrease Labs: Component Ref Range & Units 2 d ago D Dimer <500 ng/mL FEU 240 Component Ref Range & Units 2 d ago (02/23/22) 1 mo ago (01/26/22) WBC 3.70 - 11.00 k/uL 13.98 High 7.29 RBC 4.20 - 6.00 m/uL 5.71 5.04 Hemoglobin 13.0 - 17.0 g/dL 17.1 High 15.7 Hematocrit 39.0 - 51.0 % 53.3 High 45.4 MCV 80.0 - 100.0 fL 93.3 90.1 MCH 26.0 - 34.0 pg 29.9 31.2 MCHC 30.5 - 36.0 g/dL 32.1 34.6 RDW-CV 11.5 - 15.0 % 13.3 13.0 Platelet Count 150 - 400 k/uL 194 150 MPV 9.0 - 12.7 fL 10.8 9.2 NRBC /100 WBC 0.0 0.0 Absolute nRBC <0.01 k/uL <0.01 <0.01 Neut% % 47.0 56.0 Abs Neut (Segs + Bands) 1.45 - 7.50 k/uL 6.57 4.08 Lymph% % 43.0 35.8 Abs Lymph (Normal + Reactive) 1.00 - 4.00 k/uL 6.15 High 2.61 [place]% % 5.0 7.0 Abs [place] <0.87 k/uL 0.70 0.51 Eosin% % 1.0 0.5 Abs Eosin <0.46 k/uL 0.14 0.04 Baso% % 0.0 0.3 Abs Baso <0.11 k/uL 0.00 <0.03 Realym% % 1.0 [place] % % 2.0 Myelo % % 1.0 Left Shift Present Platelet Estimate Adequate Red Cell Morph Reviewed: unremarkable Diff Type Manual Imaging / Diagnostic Studies: DATE OF EXAM: Feb 23 2022 12:03PM WOX [id number] - XR CHEST 2V FRONTAL/LAT / EXAMINATION: CHEST RADIOGRAPH (2 VIEW FRONTAL & LATERAL) CLINICAL HISTORY: SOB (shortness of breath) MQ: [id number] EXAM DATE/TIME: 02/23/2022 12:03 PM COMPARISON: Chest x-ray June 032020 RESULT: Lines, tubes, and devices: None. Lungs and pleura: No consolidation. No lung mass. No pleural effusion. No pneumothorax. Eventration of the hemidiaphragms. Cardiomediastinal silhouette: Stable cardiomediastinal silhouette with mildly tortuous aorta. Bones and soft tissues: Mild degenerative changes. I personally reviewed images and agree with the above assessment PAST MEDICAL HISTORY Diagnosis Date Abdominal pain, left lower quadrant Achilles tendinitis 10/04/2012 Adjustment disorder with depressed mood Allergies Chronic low back pain 03/12/2011 Constipation Essential hypertension, benign Family history of ischemic heart disease Family history of mental disorder Family history of stroke GERD without esophagitis Hypertrophy of prostate with urinary obstruction and other lower urinary tract symptoms (LUTS) 07/05/2007 prison (current) use of inhaled steroids Lumbar discogenic pain syndrome 06/05/2010 Male erectile disorder Other intervertebral disc degeneration, lumbosacral region Overweight Personal history of other malignant neoplasm of skin Personal history of tobacco use Rosacea Unilateral primary osteoarthritis, right knee ALLERGIES Allergen Reactions Environmental [Othe* Intolerance nortriptyline (PAMELOR) 50 mg capsule Take 1 capsule by mouth twice daily. lisinopril (ZESTRIL, PRINIVIL) 5 mg tablet Take 1 tablet by mouth once daily. mometasone (ASMANEX TWISTHALER) 110 mcg/ actuation (30) twisthaler USE 1 INHALATION DAILY INSTRUCTED (EXPIRES 45 DAYS) omeprazole (PRILOSEC) 20 mg capsule Take 1 capsule by mouth daily before breakfast. 1/2 hr before meal. tamsulosin (FLOMAX) 0.4 mg Take 1 capsule by mouth daily at bedtime. polyethylene glycol 3350 (MIRALAX, GLYCOLAX) 17 gram packet Take 1 Packet by mouth twice daily. doxycycline (VIBRA-TABS) 100 mg tablet Take 1 tablet by mouth twice daily for 10 days. Social History Tobacco Use Smoking status: Never Smokeless tobacco: Never Tobacco comments: Non smoking childhood home. Substance Use Topics Alcohol use: No Drug use: No FAMILY HISTORY Problem Relation Age of Onset [...] Skin biopsy TONSILLECTOMY & ADENOIDECTOMY <AGE 12 PMH, Social history, family history and surgical history reviewed and updated in EMR REVIEW OF SYSTEMS: CONSTITUTIONAL: No fevers, chills, nightsweats, unintended weight loss HEENT: Denies nasal congestion/sinus symptoms, allergy problems. EYES: No diplopia or blurry vision, itchy eyes CARDIOVASCULAR: No chest pain, palpitations, orthopnea, PND, edema. PULM: See HPI GI: No dysphagia/odynophagia, problematic reflux, constipation, diarrhea INTEGUMENTARY: Easy bruising PHYSICAL EXAMINATION: BP 138/78 Pulse 83 Resp 16 Wt 192 lb (87.1kg) SpO2 98% General Appearance: Elderly gentleman, NAD Skin: Skin color, texture, turgor normal, no suspicious rashes or lesions. Few upper extremity ecchymoses Head: Normocephalic, no masses, lesions, tenderness or abnormalities. Eyes: Sclera, conjunctiva normal Oropharynx: Adequate dentition, no oral lesions or thrush Neck: No JVD, no masses, no adenopathy Back: Normal configuration Lungs: Not labored, normal to percussion, no wheezes or crackles Heart: Regular rate and rhythm, no murmurs or gallops. Extremities: No significant edema, no clubbing Assessment/Plan: 1. Shortness of breath -Possible exacerbation of asthma. Previous DAMARI negative. Patient instructed to hold his Asmanex for now until updated pulmonary function testing -Depending on results, may need escalation in asthma treatment. 2. 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 History of allergies -No recrudescence of his allergy symptoms since stopping immunotherapy 4. History of COVID-19 infection -Current symptoms may be related to post COVID syndrome Genie Ponce MD [facility] documented in this encounter [facility] 02-25-2022 Miscellaneous Notes Patient notified of results, verbalizes understanding of instructions. Bere Goodman LPN Can you please call the patient and let him know that I reviewed his lab results. White blood cells were elevated, his CMP and D-dimer were all within normal limits. At this time I do not see any signs for a blood clot. Elevation in white count could be due to his current illness that he has. I would recommend that he take the doxycycline until completed. If symptoms do not improve I would like him to contact the office. Please let me know if he has any questions. Thank you. Betty Barraza APRN.CNP documented in this encounter [facility] 02-23-2022 Instructions Betty Barraza APRN.CNP - 02/23/2022 11:46 AM EDT Get lab work & chest Xray done today Start doxycycline twice a day, take with food Continue to take all medication as prescribed Red flag symptoms, go to ER Follow up pending test results or sooner as needed documented in this encounter [facility] 02-23-2022 History of Presen t illness Narrative This is a 77 year old male who presents today with: Patient presents with: Follow Up: congestion and urgent care follow up HISTORY OF PRESENT ILLNESS: Valentina Rodríguez is a 77 year old male. Patient presents with: Follow Up: congestion and urgent care follow up Here in the office for express care follow-up. Patient was seen in this office for URI symptoms on 02/05/2022, COVID/flu test was negative. Instructed to continue supportive care at home. Patient was seen in express care on 02/15/22 repeat COVID and flu test was negative was given Augmentin & prednisone 40 x 5 days tested positive for COVID at home. We will having ongoing sinus congestion and fatigue. Ongoing shortness of breath at rest & with activity. Cough is productive at times. Uses a twist inhaler daily. Denies fever and chills. 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 Lumbar discogenic pain syndrome 06/05/2010 Male erectile disorder Other intervertebral disc degeneration, lumbosacral region Overweight Personal history of other malignant neoplasm of skin Personal history of tobacco use Rosacea Shortness of breath Unilateral primary osteoarthritis, right knee Unspecified constipation Constipation Unspecified essential hypertension Essential hypertension PAST SURGICAL HISTORY Procedure Laterality Date CATARACT EXTRACTION HX Bilateral 2019 COLONOSCOPY FLX DX W/COLLJ SPEC WHEN PFRMD 09/26/2001 Colonoscopy-repeat in COLONOSCOPY FLX DX W/COLLJ SPEC WHEN PFRMD 11/03/2011 Colonoscopy COLONOSCOPY SCRN NOT HIGH RISK 06/18/2020 EGD 06/18/2020 EYE SURGERY HX PAST SURGICAL HISTORY OF 10 yrs ago BCC removed by Dr.Robert Naqvi PAST SURGICAL HISTORY OF 2003 Premalignant lesion on left side nose by Dr.Robert Naqvi SKIN BIOPSY HX SKIN BX, 1 LESION Skin biopsy ALLERGIES Environmental [Other] MEDICATIONS Current Outpatient Medications Medication Sig nortriptyline (PAMELOR) 50 mg capsule Take 1 capsule by mouth twice daily. lisinopril (ZESTRIL, PRINIVIL) 5 mg tablet Take 1 tablet by mouth once daily. mometasone (ASMANEX TWISTHALER) 110 mcg/ actuation (30) twisthaler USE 1 INHALATION DAILY INSTRUCTED (EXPIRES 45 DAYS) omeprazole (PRILOSEC) 20 mg capsule Take 1 capsule by mouth daily before breakfast. 1/2 hr before meal. tamsulosin (FLOMAX) 0.4 mg Take 1 capsule by mouth daily at bedtime. polyethylene glycol 3350 (MIRALAX, GLYCOLAX) 17 gram [...] Drug use: No REVIEW OF SYSTEMS GENERAL: No weight loss or fevers/chills. +fatigue HEENT: Negative for frequent or significant headaches, No changes in hearing or vision. +congestion NECK: Negative for lumps, goiter, pain and significant neck swelling RESPIRATORY: Negative for hemoptysis, wheezing. +for dyspnea, shortness of breath, occasionally productive cough CARDIOVASCULAR: Negative for chest pain, leg swelling, [...] depression, anxiety, or suicidal ideation. EXAM: BP 110/70 Pulse 94 Resp 16 Wt 87.1 kg (192 lb) SpO2 90% BMI 28.35 kg/m PHYSICAL EXAM: General Appearance: Well appearing, alert, in no acute distress, well-hydrated, well nourished. Skin: Skin color, texture, turgor normal, no suspicious rashes or lesions. Head: Normocephalic, no masses, lesions, tenderness or abnormalities. Eyes: Anicteric sclera. Extraocular movements are intact. Ears: External ears normal, canals clear. TMs pearly cavazos. Nose/Sinuses: Nares normal, septum midline, mucosa normal, no drainage or sinus tenderness. Oropharynx: Lips, mucosa, and tongue normal, teeth and gums normal, oropharynx normal. Neck: Supple, no adenopathy; thyroid symmetric, normal size, no bruits. Lungs: +decreased lung sounds RLL, all other zimmerman clear Heart: RRR without murmur, gallop, or rubs. No ectopy. Extremities: No deformities, edema, skin discoloration, clubbing or cyanosis. Good capillary refill. Musculoskeletal: No joint swelling, deformity, or tenderness. Peripheral Pulses: Normal. Neurologic: Gait normal. Sensation grossly intact.. ASSESSMENT/PLAN: 1. SOB (shortness of breath) - ICD9: 786.05, ICD10: R06.02 (primary diagnosis) - Due to ongoing symptoms will get chest x-ray& labs completed - Start doxycycline to cover for possible pneumonia - Due to ongoing respiratory history will refer to pulmonology for evaluation - XR CHEST 2V FRONTAL/LAT - CONSULT TO PULMONARY MEDICINE - D-DIMER 2. Bronchitis - ICD9: 490, ICD10: J40 - Same plan as #1 3. Fatigue, unspecified type - ICD9: 780.79, ICD10: R53.83 - CBC + DIFF - COMP METABOLIC PANEL Follow-up pending test results or sooner as needed. Discussed treatment plan and patient voices understanding. Patient's questions answered appropriately. Medications and potential side effects were discussed and patient voices understanding. Betty Barraza APRN.LEAH This note was partially generated using [employer] voice recognition system. Note was reviewed for accuracy. There may be minor misspellings or grammar miscues with [employer] voice recognition. documented in this encounter [facility] 02-16-2022 Miscellaneous Notes patient viewed in [facility]. Martha Mccormick Negative for flu and covid documented in this encounter [facility] 02-15-2022 History of Presen t illness Narrative CC: Patient presents with: Flu Like Symptoms: Chest congestion, SOB x 1 week, is covid positive Patient is been sick for about 10 days altogether. Patient did say over the last few days he seems to have more respiratory issues. Patient's tested positive on Wednesday for COVID. HPI: Valentina Rodríguez is a 77 year old male who presents to the office with complaint of cough, nonproductive for 10 days. Symptoms are worsening Associated symptoms includes dyspnea. Denies fever, ear pain, nausea, vomiting , and diarrhea. Treatments tried include nothing so far. with no relief of symptoms. Sick contacts: yes. History of asthma, frequent episodes of bronchitis, chronic bronchitis, bronchiectasis or COPD: No Smoker: No Seasonal/environmental allergies: No The ROS is otherwise negative. The patient's pmh, medications, allergies, and past visits are reviewed. PHYSICAL EXAM: BP 106/68 Pulse 95 Temp 36.2 C (97.2 F) Resp 18 Wt 87.1 kg (192 lb) SpO2 95% BMI 28.35 kg/m General appearance: alert, cooperative, pleasant, in no acute distress Head: Normocephalic Eyes: EOM's intact, conjunctiva pink and moist, no icterus, sclera white, non-injected Heart: Negative. RRR without obvious murmur, gallop, or rubs. No ectopy. 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 Lumbar discogenic pain syndrome 06/05/2010 Male erectile disorder Other intervertebral disc degeneration, lumbosacral region Overweight Personal history of other malignant neoplasm of skin Personal history of tobacco use Rosacea Shortness of breath Unilateral primary osteoarthritis, right knee Unspecified constipation Constipation Unspecified essential hypertension Essential hypertension PAST SURGICAL HISTORY Procedure Laterality Date CATARACT EXTRACTION HX Bilateral 2019 COLONOSCOPY FLX DX W/COLLJ SPEC WHEN PFRMD 09/26/2001 Colonoscopy-repeat in COLONOSCOPY FLX DX W/COLLJ SPEC WHEN PFRMD 11/03/2011 Colonoscopy COLONOSCOPY SCRN NOT HIGH RISK 06/18/2020 EGD 06/18/2020 EYE SURGERY HX PAST SURGICAL HISTORY OF 10 yrs ago BCC removed by Dr.Robert Naqvi PAST SURGICAL HISTORY OF 2003 Premalignant lesion on left side nose by Dr.Robert Naqvi SKIN BIOPSY HX SKIN BX, 1 LESION Skin biopsy ALLERGIES Environmental [Other] MEDICATIONS predniSONE (DELTASONE) 20 mg tablet Take 2 tablets by mouth once daily for 5 days. amoxicillin-clavulanic acid (AUGMENTIN) 875-125 mg per tablet Take 1 tablet by mouth twice daily for 5 days. nortriptyline (PAMELOR) 50 mg capsule Take 1 capsule by mouth twice daily. lisinopril (ZESTRIL, PRINIVIL) 5 mg tablet Take 1 tablet by mouth once daily. mometasone (ASMANEX TWISTHALER) 110 mcg/ actuation (30) twisthaler USE 1 INHALATION DAILY INSTRUCTED (EXPIRES 45 DAYS) omeprazole (PRILOSEC) 20 mg capsule Take 1 capsule by mouth daily before breakfast. 1/2 hr before meal. tamsulosin (FLOMAX) 0.4 mg Take 1 capsule by mouth daily at bedtime. polyethylene glycol 3350 (MIRALAX, GLYCOLAX) 17 gram packet Take 1 Packet by mouth twice daily. FAMILY HISTORY Problem Relation Age of Onset Anxiety disorder Mother Depression Mother Stroke Mother Hypertension Mother Cancer Father pancreatic cancer Social History Tobacco Use Smoking status: Never Smokeless tobacco: Never Tobacco comments: Non smoking childhood home. Substance Use Topics Alcohol use: No Drug use: No ASSESSMENT/PLAN: 1. At increased risk of exposure to COVID-19 virus - ICD9: V15.89, ICD10: Z91.89 - COVID WITH FLUA+B, ROUTINE Augmentin twice a day for 5 days for the 10 days of illness. Prednisone daily for 5 days for the cough and shortness of breath. Prescription instructions reviewed with patient as applicable. Potential red flag symptoms discussed with the patient. Reviewed appropriate action plan to take if red flag symptoms occur such as increased cough fever increased shortness of breath nausea vomiting. Patient agreeable to treatment plan. Camila Comer APRN.LEAH documented in this encounter [facility] 02-06-2022 Instructions Betty Barraza APRN.CNP - 02/06/2022 9:27 AM EDT 1.) Flu/COVID test should be back by tomorrow. 2.) May use [id number] cold and cough medications as needed for symptom management. May use Tylenol for body aches or fever. 3.) Stay well-hydrated and get plenty of rest. 4.) Continue to use your twist inhaler and may use the albuterol inhaler as needed for shortness of breath. Any difficulty in breathing you need to go to ER. 5.) If your COVID test comes back positive you are currently past the window for oral treatment however you qualify for monoclonal antibodies. Schedule a virtual visit with a provider/express care and they may place that order for you. 6.) Follow-up as needed. documented in this encounter [facility] 02-06-2022 History of Presen t illness Narrative This is a 77 year old male who presents today with: Patient presents with: Acute Visit: beth RAMOS HISTORY OF PRESENT ILLNESS: Valentina Rodríguez is a 77 year old male. Patient presents with: Acute Visit: beth RAMOS Here in the office for cold symptoms. Started 6 days ago with fatigue, SOB with exertion, mild dry cough, and myalgias. Took at home covid test 3 days ago was negative. No difficulty with breathing/Fever/Chills. Has not tried any OTC cold medication at this time. Uses a twist inhaler to help with breathing which is normally effective. Has been checked for asthma in the past which was negative. PAST MEDICAL HISTORY: PAST MEDICAL HISTORY Diagnosis Date Abdominal pain, left lower quadrant Achilles tendinitis 10/04/2012 Adjustment disorder with depressed mood Benign hypertension 01/15/2015 Cancer (HCC) Chronic low back pain 03/12/2011 Constipation Essential hypertension, benign Family history of ischemic heart disease Family history of mental disorder Family history of stroke GERD without esophagitis Hypertrophy of prostate with urinary obstruction and other lower urinary tract symptoms (LUTS) 07/05/2007 prison (current) use of inhaled steroids Lumbar discogenic pain syndrome 06/05/2010 Male erectile disorder Other intervertebral disc degeneration, lumbosacral region Overweight Personal history of other malignant neoplasm of skin Personal history of tobacco use Rosacea Shortness of breath Unilateral primary osteoarthritis, right knee Unspecified constipation Constipation Unspecified essential hypertension Essential hypertension PAST SURGICAL HISTORY Procedure Laterality Date CATARACT EXTRACTION HX Bilateral 2019 COLONOSCOPY FLX DX W/COLLJ SPEC WHEN PFRMD 09/26/2001 Colonoscopy-repeat in COLONOSCOPY FLX DX W/COLLJ SPEC WHEN PFRMD 11/03/2011 Colonoscopy COLONOSCOPY SCRN NOT HIGH RISK 06/18/2020 EGD 06/18/2020 EYE SURGERY HX PAST SURGICAL HISTORY OF 10 yrs ago BCC removed by Dr.Robert Naqvi PAST SURGICAL HISTORY OF 2003 Premalignant lesion on left side nose by Dr.Robert Naqvi SKIN BIOPSY HX SKIN BX, 1 LESION Skin biopsy ALLERGIES Environmental [Other] MEDICATIONS Current Outpatient Medications Medication Sig nortriptyline (PAMELOR) 50 mg capsule Take 1 capsule by mouth twice daily. lisinopril (ZESTRIL, PRINIVIL) 5 mg tablet Take 1 tablet by mouth once daily. mometasone (ASMANEX TWISTHALER) 110 mcg/ actuation (30) twisthaler USE 1 INHALATION DAILY INSTRUCTED (EXPIRES 45 DAYS) omeprazole (PRILOSEC) 20 mg capsule Take 1 capsule by mouth daily before breakfast. 1/2 hr before meal. tamsulosin (FLOMAX) 0.4 mg Take 1 capsule by mouth daily at bedtime. polyethylene glycol 3350 (MIRALAX, GLYCOLAX) 17 gram [...] use: No REVIEW OF SYSTEMS GENERAL: + Myalgias and fatigue HEENT: Negative for frequent or significant headaches, [...] depression, anxiety, or suicidal ideation. EXAM: BP 116/68 Pulse 87 Resp 16 Wt 88.5 kg (195 lb) SpO2 96% BMI 28.80 kg/m PHYSICAL EXAM: General Appearance: Well appearing, alert, in no acute distress, well-hydrated, well nourished. Skin: Skin color, texture, turgor normal, no suspicious rashes or lesions. Head: Normocephalic, no masses, lesions, tenderness or abnormalities. Eyes: Anicteric sclera. Extraocular movements are intact. Ears: External ears [...] peripheral pulses, Pulses palpable. Neurologic: Gait normal. Reflexes normal and symmetric. Sensation grossly intact. ASSESSMENT/PLAN: 1. Viral illness - ICD9: 079.99, ICD10: B34.9 (primary diagnosis) - Discussed viral etiology and rationale for treatment. - Symptomatic treatment with prn analgesia - Supportive care with fluids and rest 2. Acute cough - ICD9: 786.2, ICD10: R05.1 - Discussed treatment options if Covid +. - COVID WITH FLUA+B, ROUTINE Follow-up as needed or sooner if symptoms get worse or do not improve. Discussed treatment plan and patient voices understanding. Patient's questions answered appropriately. Medications and potential side effects were discussed and patient voices understanding. Betty Barrzaa APRN.LEAH This note was partially generated using [employer] voice recognition system. Note was reviewed for accuracy. There may be minor misspellings or grammar miscues with [employer] voice recognition. documented in this encounter [facility] 12-03-2021 History of Presen t illness Narrative Images from the original note were not included. PSYC FOLLOW UP - PSYCHIATRIC PROGRESS NOTE DIAGNOSIS: 1. MDD, recurrent, in full remission 2. None GAF: -80-71 If symptoms are present, they are transient and expectable reactions to psychosocial stressors TREATMENT PLAN: 1. Continue Nortriptyline at the same dose. 2. Collaborate with PCP to discuss transfer of care due to stability of symptoms. 3. Follow up as needed The effects and side effects of the medication were reviewed in detail with the patient. He is in agreement with the treatment plan. He is aware to reach out with any questions, concerns, or worsening of symptoms. CC: Follow up regarding his mood and medication change. HPI: Valentina Rodríguez is a 76 year old Male with a history of MDD presenting today for follow-up. Date of last visit: 08/27/2021 Plan from last visit: 1. Discontinue Ludiomil 2. Take nortriptyline twice daily with food and peanut butter to help with any side effects. 3. Utilize Biotene mouthwash to help with the dry mouth side effects. 4. Follow-up with this provider in 3 months. Today Valentina shares that the Nortriptyline has been helping him with his symptoms. He takes it with lunch and dinner. Takes it with peanut butter. Denies any GI concerns from the medication. Struggles with some minor dry mouth side effects. Mostly notices it in the morning. He is a mouth breather when he sleeps. Utilizes Biotene mouth wash if he needs it. Denies changes in his diet or sleep. Enjoyed helping out and attending his 60th highschool reunion. Interval Progress: Improved Risks and benefits of the medication, including any black box warnings, were discussed with the patient. Social History: No change PATIENT DATA: Generalized Anxiety Disorder Scale (MARC-7) MARC - 7 SCORES 07/03/2021 08/20/2021 11/26/2021 MARC-7 Score 1 0 0 (0-4) minimal anxiety, (5-9) mild anxiety, (10-14) moderate anxiety, (15-21) severe anxiety Patient Health Questionnaire (PHQ-9) PHQ-9 07/27/2021 08/20/2021 11/26/2021 Score 0 0 0 (0-4) minimal depression, (5-9) mild depression, (10-14) moderate depression, (15-19) moderately severe depression, (20-27) severe depression ROS: General: Negative for fever, malaise, unintentional weight loss HEENT: Negative for recent changes in vision or hearing, no nasal drainage Respiratory: Negative for cough, wheezing or SOB Cardiovascular: Negative for chest pain GI: Negative for nausea, vomiting, change in bowel habits MUSCULOSKELETAL: Negative for acute back or joint pain SKIN: Negative for rash NEURO: Negative for headaches, seizures, focal neurological deficits All other systems negative. VITAL SIGNS: BP 122/58 (12/03/21 1025) Temp Pulse Resp SpO2 MENTAL STATUS EXAMINATION: Appearance: Appropriately groomed, appears stated age Behavior: Appropriately engaged Psychomotor: No psychomotor agitation Cognition Level of Consciousness: Awake and alert. No fluctuation in wakefulness. Orientation: Grossly oriented Memory: Intact Attention/Concentration: Good Fund of Knowledge: Able to demonstrate an awareness of current events. Mood: Euthymic Affect: Congruent to mood Speech/Language: Appropriate tone, prosody, susi, phonetics, and syntax Thought Form: Goal-directed. No loosening of associations. Thought Content: No delusions noted or endorsed. Perceptual Disturbances: Did not appear to respond to auditory stimuli. Safety: Suicidal Ideations: No suicidal ideation, intent or plan. Homicidal Ideations: No homicidal ideation, intent or plan. Insight: Appropriate Judgment: Appropriate I spent a total of 28 minutes on the date of the service which included preparing to see the patient, [id number] patient care, completing clinical documentation, and counseling and educating the patient/family/caregiver, ordering medications/labs and communicating with other healthcare providers. Berkley Roque APRN.LEAH December 03, 2021 10:30 AM This note was partially generated using [employer] voice recognition system. Note was reviewed for accuracy. There may be minor misspellings or grammar miscues with [employer] voice recognition. documented in this encounter [facility] 09-03-2021 History of Presen t illness Narrative Chief Complaint Patient presents with: 6 Month Exam HPI Valentina Rodríguez is a 76 year old male who presents here today for 6 month follow up. Has an advanced directive. Denies any bowel, Gi, or urinary issues. Takes Flomax 0.4 mg daily which is working well for him. Uses Miralax as needed. GERD: Controlled on Prilosec 20 mg daily. Asthma: Stable; taking Asmanex inhaler and ProAir inhaler prn. HTN: Taking Lisinopril 5 mg daily. No chest pains, dizziness, or SOB. Does not check BP at home. Depression: Follows with Berkley Roque. Taking Nortriptyline 50 mg BID. Once stable may transition back here for prescription refills. Past medical history, appointments, medications, allergies reviewed. 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 Lumbar discogenic pain syndrome 06/05/2010 Male erectile disorder Other intervertebral disc degeneration, lumbosacral region Overweight Personal history of other malignant neoplasm of skin Personal history of tobacco use Rosacea Shortness of breath Unilateral primary osteoarthritis, right knee Unspecified constipation Constipation Unspecified essential hypertension Essential hypertension Previous Surgical History PAST SURGICAL HISTORY Procedure Laterality Date CATARACT EXTRACTION HX Bilateral 2019 COLONOSCOPY FLX DX W/COLLJ SPEC WHEN PFRMD 09/26/2001 Colonoscopy-repeat in COLONOSCOPY FLX DX W/COLLJ SPEC WHEN PFRMD 11/03/2011 Colonoscopy COLONOSCOPY SCRN NOT HIGH RISK 06/18/2020 EGD 06/18/2020 EYE SURGERY HX PAST SURGICAL HISTORY OF 10 yrs ago BCC removed by Dr.Robert Naqvi PAST SURGICAL HISTORY OF 2003 Premalignant lesion on left side nose by Dr.Robert Naqvi SKIN BIOPSY HX SKIN BX, 1 LESION Skin biopsy Family History FAMILY HISTORY Problem Relation Age of Onset Anxiety disorder Mother Depression Mother Stroke Mother Hypertension Mother Cancer Father pancreatic cancer Patient Allergies ALLERGIES Allergen Reactions Environmental [Othe* Intolerance Current Medications Current Outpatient Medications on File Prior to Visit Medication Sig maprotiline (LUDIOMIL) 50 mg tablet Take 0.5 tablets by mouth daily at bedtime. nortriptyline (PAMELOR) 75 mg capsule Take 1 capsule by mouth daily at bedtime. lisinopril (ZESTRIL, PRINIVIL) 5 mg tablet Take 1 tablet by mouth once daily. albuterol HFA (PROAIR HFA) 90 mcg/actuation inhaler Inhale 2 Puffs as instructed every 4 hours as needed. benzonatate (TESSALON PERLE) 100 mg capsule Take 1-2 capsules tid prn, no more than 6 in 24 hours. mometasone (ASMANEX TWISTHALER) 110 mcg/ actuation (30) twisthaler USE 1 INHALATION DAILY INSTRUCTED (EXPIRES 45 DAYS) omeprazole (PRILOSEC) 20 mg capsule Take 1 capsule by mouth daily before breakfast. 1/2 hr before meal. tamsulosin (FLOMAX) 0.4 mg Take 1 capsule by mouth daily at bedtime. polyethylene glycol 3350 (MIRALAX, GLYCOLAX) 17 gram packet Take 1 Packet by mouth twice daily. No current facility-administered medications on file prior to visit. Social History Social History Tobacco Use Smoking status: Never Smoker Smokeless tobacco: Never Used Tobacco comment: Non smoking childhood home. Substance Use Topics Alcohol use: No Drug use: No EXAM: BP 120/72 Pulse 68 Resp 14 Wt 86.7 kg (191 lb 3.2 oz) BMI 28.24 kg/m General Appearance: Well appearing, alert, in no acute distress, well-hydrated, well nourished.. Lungs: Lungs clear to auscultation. No wheezing, rhonchi, rales.. Heart: RRR without murmur, gallop, or rubs. No ectopy. Health Maintenance List HEPATITIS C SCREENING Never done ADVANCE DIRECTIVE DISCUSSION Never done ANNUAL PCP TEAM CHRONIC DISEASE VISIT due on 05/05/2022 BP CONTROLLED (<130/80) due on 07/30/2022 DIABETES SCREEN due on 04/28/2024 DTAP,TDAP,TD(4 - Td or Tdap) due on 10/01/2026 INFLUENZA Completed PNEUMOVAX AGE 65 AND OVER WITH 5YR LOOKBACK Completed SHINGRIX VACCINE Completed COVID-19 VACCINE Completed MENINGOCOCCAL CONJUGATE Aged Out Data reviewed none ASSESSMENT/PLAN: 1. Essential hypertension, benign - ICD9: 401.1, ICD10: I10 (primary diagnosis) - good control - Continue current medication(s) - Recommended regular aerobic exercise. - Recommend home blood pressure monitoring, to bring results in on next visit - Goal of BP <140/90 - COMP METABOLIC PANEL - CBC 2. Encounter for hepatitis C screening test for low risk patient - ICD9: V73.89, ICD10: Z11.59 - HEP C AB IA W/CONF SCRN 3. Benign non-nodular prostatic hyperplasia with lower urinary tract symptoms - ICD9: 600.91, ICD10: N40.1 - PSA/PROSTSPECAG DIAG 4. Recurrent major depressive disorder, in full remission (HCC) - ICD9: 296.36, ICD10: F33.42 Follow with Psych; may transition back ot me when medications stabilized Follow up in 6 months I agree with the Chief Complaint, ROS, and Past Histories independently gathered by the clinical director of operations support and the remaining scribed note accurately describes my personal service to the patient. Medical Decision Making: Problems: Moderate: 2+ stable chronic illnesses Data: Unique test(s) ordered: 3+ Risk: Moderate: Drug management Medical Decision Making Level: 4 - Moderate Binu Bellamy MD The documentation for this note was completed by Marilin Schaffer Ma acting as scribe for Binu Bellamy MD. September 03, 2021 12:51 PM. Marilin Schaffer Ma documented in this encounter [facility] 08-27-2021 Instructions Berkley Roque APRN.LEAH - 08/27/2021 11:33 AM EDT Irasema Montgomery, It was good to talk with you today. Below is a summary of the plan that we discussed during your appointment for reference. Of course, if you have any questions or concerns do not hesitate to reach out to me via a message or call. Marcus, Berkley Roque NUT GRINDER.SEXUAL ASSAULT SOCIAL WORKER PLAN AND FOLLOW UP: YOU SHOULD SEEK IMMEDIATE MEDICAL ATTENTION AT THE NEAREST EMERGENCY DEPARTMENT OR BY CALLING 911, IF ANY OF THE FOLLOWING OCCURS: - New or worsening thoughts of harming yourself (suicidal thoughts) or others (homicidal thoughts) - Not feeling safe at home or worrying about your ability to remain safe at home If you are having thoughts of harming yourself or others, then you can: - Call the National Suicide Hotline at 6-184-VMOMNCC ( ) or 9-082-329-TALK (1130) - Text 4HOPE to 153373 Medication Update: 1. Nortriptyline 50 mg take 1 capsule twice daily with food and peanut butter Next appointment: --Schedule in 3 months or sooner if needed -- You may call the department appointment line at [phone] to schedule your appointment. -- Please call my nurse Kelly at [phone] or send me a message in [email or web address] with any questions or concerns between appointments. documented in this encounter [facility] 08-27-2021 History of Presen t illness Narrative Images from the original note were not included. PSYC FOLLOW UP - PSYCHIATRIC PROGRESS NOTE DIAGNOSIS: 1. Recurrent major depression, in full remission GAF: -90-81 Absent or minimal symptoms, good functioning in all areas, interested and involved in a wide range of activities, no more than everyday problems. TREATMENT PLAN: 1. Discontinue Ludiomil 2. Take nortriptyline twice daily with food and peanut butter to help with any side effects. 3. Utilize Biotene mouthwash to help with the dry mouth side effects. 4. Follow-up with this provider in 3 months. Medication Update: 1. Nortriptyline 50 mg take 1 capsule twice daily with food and peanut butter The effects and side effects of nortriptyline were discussed in detail with the patient. He is in agreement with the treatment plan. He is aware to reach out with any questions, concerns, or worsening of symptoms prior to the next appointment. CC: Medication change HPI: Valentina Rodríguez is a 76 year old Male with a history of Depression presenting today for follow-up. Date of last visit: 07/30/2021 Plan from last visit: 1. Increase Nortriptyline to 75 mg dose. 2. Decrease Ludiomil to 25 mg. 3. Continue taking medications with food to prevent GI side effects. 4. Continue to utilize coping skills and practice CBT techniques from his self-help book. Today Valentina reports, that he is doing well. He increased the Nortriptyline to 100 mg and stopped the Ludiomil. He was able to do this 3 weeks ago. He denies any withdrawal effects. He has been able to tolerate the Nortriptyline by taking it as 50 mg twice a day with food. Taking it with peanut butter has helped with the GI side effects. He denies any concerns with feelings of depression. Feels that Nortriptyline has supported his symptoms well. He denies any changes in his appetite. He has noticed some worsening in dry mouth side effects with Nortriptyline. Notices it more in the morning. Chewing gum helps. Willing to try the biotene mouth rinse. Constipation is better on the Nortriptyline instead of Ludiomil. He does use MiraLAX as well as prunes to help support the side effects. Interval Progress: Improved Risks and benefits of the medication, including any black box warnings, were discussed with the patient. PAST MEDICATION TRIALS: (copy from previous and update if needed)Ludiomil Social History: No change PATIENT DATA: Generalized Anxiety Disorder Scale (MARC-7) MARC - 7 SCORES 06/19/2021 07/03/2021 08/20/2021 MARC-7 Score 6 1 0 (0-4) minimal anxiety, (5-9) mild anxiety, (10-14) moderate anxiety, (15-21) severe anxiety Patient Health Questionnaire (PHQ-9) PHQ-9 07/03/2021 07/27/2021 08/20/2021 Score 0 0 0 (0-4) minimal depression, (5-9) mild depression, (10-14) moderate depression, (15-19) moderately severe depression, (20-27) severe depression ROS: General: Negative for fever, malaise, unintentional weight loss HEENT: Negative for recent changes in vision or hearing, no nasal drainage Respiratory: Negative for cough, wheezing or SOB Cardiovascular: Negative for chest pain GI: Negative for nausea, vomiting, change in bowel habits MUSCULOSKELETAL: Negative for acute back or joint pain SKIN: Negative for rash NEURO: Negative for headaches, seizures, focal neurological deficits All other systems negative. VITAL SIGNS: BP 122/66 (08/27/21 1053) Temp Pulse 68 (08/27/21 1053) Resp SpO2 MENTAL STATUS EXAMINATION: Appearance: Appropriately groomed, appears stated age Behavior: Appropriately engaged Psychomotor: No psychomotor agitation Cognition Level of Consciousness: Awake and alert. No fluctuation in wakefulness. Orientation: Grossly oriented Memory: Intact Attention/Concentration: Good Fund of Knowledge: Able to demonstrate an awareness of current events. Mood: Happy Affect: Full range Speech/Language: Appropriate tone, prosody, susi, phonetics, and syntax Thought Form: Goal-directed. No loosening of associations. Thought Content: No delusions noted or endorsed. Perceptual Disturbances: Did not appear to respond to auditory stimuli. Safety: Suicidal Ideations: No suicidal ideation, intent or plan. Homicidal Ideations: No homicidal ideation, intent or plan. Insight: Good Judgment: Good I spent a total of 28 minutes on the date of the service which included preparing to see the patient, [id number] patient care, completing clinical documentation, and counseling and educating the patient/family/caregiver, ordering medications/labwork. 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 Neoplasm of uncertain behavior of skin 9 06/12/2014 Shortness of breath 09/01/2006 06/12/2014 Abdominal pain, generalized 03/19/200605/31 documented as of this encounter (statuses as of 09/04/2021) [facility] History of Past illness Narrative* Problem Noted Date Resolved Date Shortness of breath 02/12/2016 06/29/2016 Achilles tendinitis 10/04/2012 04/17/2015 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 Neoplasm of uncertain behavior of skin 9 06/12/2014 Shortness of breath 09/01/2006 06/12/2014 Abdominal pain, generalized 03/19/200605/31 documented as of this encounter (statuses as of 12/03/2021) [facility] History of Past illness Narrative* Problem Noted Date Resolved Date Shortness of breath 02/12/2016 06/29/2016 Achilles tendinitis 10/04/2012 04/17/2015 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 Neoplasm of uncertain behavior of skin 9 06/12/2014 Shortness of breath 09/01/2006 06/12/2014 Abdominal pain, generalized 03/19/200605/31 documented as of this encounter (statuses as of 02/06/2022) [facility] History of Past illness Narrative* Problem Noted Date Resolved Date Shortness of breath 02/12/2016 06/29/2016 Achilles tendinitis 10/04/2012 04/17/2015 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 Neoplasm of uncertain behavior of skin 9 06/12/2014 Shortness of breath 09/01/2006 06/12/2014 Abdominal pain, generalized 03/19/200605/31 documented as of this encounter (statuses as of 02/15/2022) [facility] History of Past illness Narrative* Problem Noted Date Resolved Date Shortness of breath 02/12/2016 06/29/2016 Achilles tendinitis 10/04/2012 04/17/2015 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 Neoplasm of uncertain behavior of skin 9 06/12/2014 Shortness of breath 09/01/2006 06/12/2014 Abdominal pain, generalized 03/19/200605/31 documented as of this encounter (statuses as of 02/16/2022) [facility] History of Past illness Narrative* Problem Noted Date Resolved Date Shortness of breath 02/12/2016 06/29/2016 Achilles tendinitis 10/04/2012 04/17/2015 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 Neoplasm of uncertain behavior of skin 9 06/12/2014 Shortness of breath 09/01/2006 06/12/2014 Abdominal pain, generalized 03/19/200605/31 documented as of this encounter (statuses as of 02/23/2022) [facility] History of Past illness Narrative* Problem Noted Date Resolved Date Shortness of breath 02/12/2016 06/29/2016 Achilles tendinitis 10/04/2012 04/17/2015 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 Neoplasm of uncertain behavior of skin 9 06/12/2014 Shortness of breath 09/01/2006 06/12/2014 Abdominal pain, generalized 03/19/200605/31 documented as of this encounter (statuses as of 02/25/2022) [facility] History of Past illness Narrative* Problem Noted Date Resolved Date Shortness of breath 02/12/2016 06/29/2016 Achilles tendinitis 10/04/2012 04/17/2015 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 Neoplasm of uncertain behavior of skin 9 06/12/2014 Shortness of breath 09/01/2006 06/12/2014 Abdominal pain, generalized 03/19/200605/31 documented as of this encounter (statuses as of 02/27/2022) [facility] History of Past illness Narrative* Problem Noted Date Resolved Date Shortness of breath 02/12/2016 06/29/2016 Achilles tendinitis 10/04/2012 04/17/2015 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 Neoplasm of uncertain behavior of skin 9 06/12/2014 Shortness of breath 09/01/2006 06/12/2014 Abdominal pain, generalized 03/19/200605/31 documented as of this encounter (statuses as of 03/11/2022) [facility] History of Past illness Narrative* Problem Noted Date Resolved Date Shortness of breath 02/12/2016 06/29/2016 Achilles tendinitis 10/04/2012 04/17/2015 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 Neoplasm of uncertain behavior of skin 9 06/12/2014 Shortness of breath 09/01/2006 06/12/2014 Abdominal pain, generalized 03/19/200605/31 documented as of this encounter (statuses as of 03/12/2022) [facility] History of Past illness Narrative* Problem Noted Date Resolved Date Shortness of breath 02/12/2016 06/29/2016 Achilles tendinitis 10/04/2012 04/17/2015 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 Neoplasm of uncertain behavior of skin 9 06/12/2014 Shortness of breath 09/01/2006 06/12/2014 Abdominal pain, generalized 03/19/200605/31 documented as of this encounter (statuses as of 03/12/2022) [facility] History of Past illness Narrative* Problem Noted Date Resolved Date Shortness of breath 02/12/2016 06/29/2016 Achilles tendinitis 10/04/2012 04/17/2015 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 Neoplasm of uncertain behavior of skin 9 06/12/2014 Shortness of breath 09/01/2006 06/12/2014 Abdominal pain, generalized 03/19/200605/31 documented as of this encounter (statuses as of 03/16/2022) [facility] History of Past illness Narrative* Problem Noted Date Resolved Date Shortness of breath 02/12/2016 06/29/2016 Achilles tendinitis 10/04/2012 04/17/2015 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 Neoplasm of uncertain behavior of skin 9 06/12/2014 Shortness of breath 09/01/2006 06/12/2014 Abdominal pain, generalized 03/19/200605/31 documented as of this encounter (statuses as of 03/17/2022) [facility] History of Past illness Narrative* Problem Noted Date Resolved Date Shortness of breath 02/12/2016 06/29/2016 Achilles tendinitis 10/04/2012 04/17/2015 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 Neoplasm of uncertain behavior of skin 9 06/12/2014 Shortness of breath 09/01/2006 06/12/2014 Abdominal pain, generalized 03/19/200605/31 documented as of this encounter (statuses as of 03/19/2022) [facility] History of Past illness Narrative* Problem Noted Date Resolved Date Shortness of breath 02/12/2016 06/29/2016 Achilles tendinitis 10/04/2012 04/17/2015 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 Neoplasm of uncertain behavior of skin 9 06/12/2014 Shortness of breath 09/01/2006 06/12/2014 Abdominal pain, generalized 03/19/200605/31 documented as of this encounter (statuses as of 03/20/2022) [facility] History of Past illness Narrative* Problem Noted Date Resolved Date Shortness of breath 02/12/2016 06/29/2016 Achilles tendinitis 10/04/2012 04/17/2015 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 Neoplasm of uncertain behavior of skin 9 06/12/2014 Shortness of breath 09/01/2006 06/12/2014 Abdominal pain, generalized 03/19/200605/31 documented as of this encounter (statuses as of 04/01/2022) [facility] History of Past illness Narrative* Problem Noted Date Resolved Date Shortness of breath 02/12/2016 06/29/2016 Achilles tendinitis 10/04/2012 04/17/2015 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 Neoplasm of uncertain behavior of skin 9 06/12/2014 Shortness of breath 09/01/2006 06/12/2014 Abdominal pain, generalized 03/19/200605/31 documented as of this encounter (statuses as of 04/10/2022) [facility] History of Past illness Narrative* Problem Noted Date Resolved Date Shortness of breath 02/12/2016 06/29/2016 Achilles tendinitis 10/04/2012 04/17/2015 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 Neoplasm of uncertain behavior of skin 9 06/12/2014 Shortness of breath 09/01/2006 06/12/2014 Abdominal pain, generalized 03/19/200605/31 documented as of this encounter (statuses as of 04/30/2022) [facility] History of Past illness Narrative* Problem Noted Date Resolved Date Shortness of breath 02/12/2016 06/29/2016 Achilles tendinitis 10/04/2012 04/17/2015 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 Neoplasm of uncertain behavior of skin 9 06/12/2014 Shortness of breath 09/01/2006 06/12/2014 Abdominal pain, generalized 03/19/200605/31 documented as of this encounter (statuses as of 05/03/2022) [facility] History of Past illness Narrative* Problem Noted Date Resolved Date Shortness of breath 02/12/2016 06/29/2016 Achilles tendinitis 10/04/2012 04/17/2015 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 Neoplasm of uncertain behavior of skin 9 06/12/2014 Shortness of breath 09/01/2006 06/12/2014 Abdominal pain, generalized 03/19/200605/31 documented as of this encounter (statuses as of 05/10/2022) [facility] History of Past illness Narrative* Problem Noted Date Resolved Date Shortness of breath 02/12/2016 06/29/2016 Achilles tendinitis 10/04/2012 04/17/2015 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 Neoplasm of uncertain behavior of skin 9 06/12/2014 Shortness of breath 09/01/2006 06/12/2014 Abdominal pain, generalized 03/19/200605/31 documented as of this encounter (statuses as of 05/13/2022) [facility] History of Past illness Narrative* Problem Noted Date Resolved Date Shortness of breath 02/12/2016 06/29/2016 Achilles tendinitis 10/04/2012 04/17/2015 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 Neoplasm of uncertain behavior of skin 9 06/12/2014 Shortness of breath 09/01/2006 06/12/2014 Abdominal pain, generalized 03/19/200605/31 documented as of this encounter (statuses as of 07/09/2022) [facility] History of Past illness Narrative* Problem Noted Date Resolved Date Shortness of breath 02/12/2016 06/29/2016 Achilles tendinitis 10/04/2012 04/17/2015 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 Neoplasm of uncertain behavior of skin 9 06/12/2014 Shortness of breath 09/01/2006 06/12/2014 Abdominal pain, generalized 03/19/200605/31 documented as of this encounter (statuses as of 08/19/2022) [facility] History of Past illness Narrative* Problem Noted Date Resolved Date Shortness of breath 02/12/2016 06/29/2016 Achilles tendinitis 10/04/2012 04/17/2015 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 Neoplasm of uncertain behavior of skin 9 06/12/2014 Shortness of breath 09/01/2006 06/12/2014 Abdominal pain, generalized 03/19/200605/31 documented as of this encounter (statuses as of 08/24/2022) [facility] History of Past illness Narrative* Problem Noted Date Resolved Date Shortness of breath 02/12/2016 06/29/2016 Achilles tendinitis 10/04/2012 04/17/2015 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 Neoplasm of uncertain behavior of skin 9 06/12/2014 Shortness of breath 09/01/2006 06/12/2014 Abdominal pain, generalized 03/19/200605/31 documented as of this encounter (statuses as of 09/08/2022) [facility] History of Past illness Narrative* Problem Noted Date Resolved Date Shortness of breath 02/12/2016 06/29/2016 Achilles tendinitis 10/04/2012 04/17/2015 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 Neoplasm of uncertain behavior of skin 9 06/12/2014 Shortness of breath 09/01/2006 06/12/2014 Abdominal pain, generalized 03/19/200605/31 documented as of this encounter (statuses as of 09/18/2022) [facility] History of Past illness Narrative* Problem Noted Date Diagnosed Date Resolved Date Shortness of breath 02/12/2016 06/29/19 17 Achilles tendinitis 10/04/2012 04/17/20 15 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 03/25/20 09 06/12/2014 Neoplasm of uncertain behavior of skin 01/23/2009 06/12/2014 Shortness of breath 09/01/2006 06/12/19 15 Abdominal pain, generalized 03/19/2006 06/12/2014 documented as of this encounter (statuses as of 12/07/2022) [facility] History of Past illness Narrative* Problem Noted Date Diagnosed Date Resolved Date Shortness of breath 02/12/2016 06/29/19 17 Achilles tendinitis 10/04/2012 04/17/20 15 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 03/25/20 09 06/12/2014 Neoplasm of uncertain behavior of skin 01/23/2009 06/12/2014 Shortness of breath 09/01/2006 06/12/19 15 Abdominal pain, generalized 03/19/2006 06/12/2014 documented as of this encounter (statuses as of 12/10/2022) [facility] History of Past illness Narrative* Problem Noted Date Diagnosed Date Resolved Date Shortness of breath 02/12/2016 06/29/19 17 Achilles tendinitis 10/04/2012 04/17/20 15 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 03/25/20 09 06/12/2014 Neoplasm of uncertain behavior of skin 01/23/2009 06/12/2014 Shortness of breath 09/01/2006 06/12/19 15 Abdominal pain, generalized 03/19/2006 06/12/2014 documented as of this encounter (statuses as of 12/10/2022) [facility] History of Past illness Narrative* Problem Noted Date Diagnosed Date Resolved Date Shortness of breath 02/12/2016 06/29/19 17 Achilles tendinitis 10/04/2012 04/17/20 15 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 03/25/2006/12/2014 Neoplasm of uncertain behavior of skin 01/23/2009 06/12/2014 Shortness of breath 09/01/2006 06/12/19 15 Abdominal pain, generalized 03/19/2006 06/12/2014 documented as of this encounter (statuses as of 12/11/2022) [facility] History of Past illness Narrative* Problem Noted Date Diagnosed Date Resolved Date Shortness of breath 02/12/2016 06/29/19 17 Achilles tendinitis 10/04/2012 04/17/20 15 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 03/25/20 09 06/12/2014 Neoplasm of uncertain behavior of skin 01/23/2009 06/12/2014 Shortness of breath 09/01/2006 06/12/19 15 Abdominal pain, generalized 03/19/2006 06/12/2014 documented as of this encounter (statuses as of 12/28/2022) [facility] History of Past illness Narrative* Problem Noted Date Diagnosed Date Resolved Date Shortness of breath 02/12/2016 06/29/19 17 Achilles tendinitis 10/04/2012 04/17/20 15 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 03/25/20 09 06/12/2014 Neoplasm of uncertain behavior of skin 01/23/2009 06/12/2014 Shortness of breath 09/01/2006 06/12/19 15 Abdominal pain, generalized 03/19/2006 06/12/2014 documented as of this encounter (statuses as of 01/21/2023) [facility] History of Past illness Narrative* Problem Noted Date Diagnosed Date Resolved Date Shortness of breath 02/12/2016 06/29/19 17 Achilles tendinitis 10/04/2012 04/17/20 15 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 03/25/20 09 06/12/2014 Neoplasm of uncertain behavior of skin 01/23/2009 06/12/2014 Shortness of breath 09/01/2006 06/12/19 15 Abdominal pain, generalized 03/19/2006 06/12/2014 documented as of this encounter (statuses as of 03/09/2023) [facility] History of Past illness Narrative* Problem Noted Date Diagnosed Date Resolved Date Shortness of breath 02/12/2016 06/29/19 17 Achilles tendinitis 10/04/2012 04/17/20 15 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 03/25/20 09 06/12/2014 Neoplasm of uncertain behavior of skin 01/23/2009 06/12/2014 Shortness of breath 09/01/2006 06/12/19 15 Abdominal pain, generalized 03/19/2006 06/12/2014 documented as of this encounter (statuses as of 04/02/2023) [facility] History of Past illness Narrative* Problem Noted Date Diagnosed Date Resolved Date Shortness of breath 02/12/2016 06/29/19 17 Achilles tendinitis 10/04/2012 04/17/20 15 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 03/25/20 09 06/12/2014 Neoplasm of uncertain behavior of skin 01/23/2009 06/12/2014 Shortness of breath 09/01/2006 06/12/19 15 Abdominal pain, generalized 03/19/2006 06/12/2014 documented as of this encounter (statuses as of 04/19/2023) [facility] History of Past illness Narrative* Problem Noted Date Diagnosed Date Resolved Date Shortness of breath 02/12/2016 06/29/19 17 Achilles tendinitis 10/04/2012 04/17/20 15 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 03/25/20 09 06/12/2014 Neoplasm of uncertain behavior of skin 01/23/2009 06/12/2014 Shortness of breath 09/01/2006 06/12/19 15 Abdominal pain, generalized 03/19/2006 06/12/2014 documented as of this encounter (statuses as of 05/03/2023) [facility] History of Past illness Narrative* Problem Noted Date Diagnosed Date Resolved Date Shortness of breath 02/12/2016 06/29/19 17 Achilles tendinitis 10/04/2012 04/17/20 15 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 03/25/20 09 06/12/2014 Neoplasm of uncertain behavior of skin 01/23/2009 06/12/2014 Shortness of breath 09/01/2006 06/12/19 15 Abdominal pain, generalized 03/19/2006 06/12/2014 documented as of this encounter (statuses as of 07/02/2023) [facility] note* Diagnosis Recurrent major depressive disorder, in full remission (HCC)- Primary [facility]* Diagnosis Essential hypertension, benign- Primary Encounter for hepatitis C screening test for low risk patient Benign non-nodular prostatic hyperplasia with lower urinary tract symptoms Recurrent major depressive disorder, in full remission (HCC) [facility]* Diagnosis Recurrent major depressive disorder, in full remission (HCC)- Primary [facility]* Diagnosis Viral illness- Primary Unspecified viral infection, in conditions classified elsewhere and of unspecified site Acute cough [facility]* Diagnosis At increased risk of exposure to COVID-19 virus- Primary [facility]* Diagnosis SOB (shortness of breath)- Primary Shortness of breath Bronchitis Bronchitis, not specified as acute or chronic Fatigue, unspecified type [facility]* Diagnosis SOB (shortness of breath)- Primary Shortness of breath 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 History of environmental allergies Other allergy, other than to medicinal agents History of COVID-19 [facility] Diagnosis SOB (shortness of breath) Shortness of breath [facility]* Diagnosis SOB (shortness of breath) Shortness of breath [facility]* Diagnosis Essential hypertension, benign- Primary Recurrent major depressive disorder, in full remission (HCC) Benign non-nodular prostatic hyperplasia with lower urinary tract symptoms SOB (shortness of breath) Shortness of breath Fatigue, unspecified type Thrombocyte disorder (HCC) Qualitative platelet defects [facility]* Diagnosis Cough variant asthma- Primary SOB (shortness of breath) Shortness of breath History of environmental allergies Other allergy, other than to medicinal agents History of COVID-19 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 [facility]* Diagnosis URI, acute- Primary Acute upper respiratory infections of unspecified site Rhinosinusitis Unspecified sinusitis (chronic) [facility]* Diagnosis Viral illness- Primary Unspecified viral infection, in conditions classified elsewhere and of unspecified site Acute cough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 Relationship Specialty Start Date End Date Binu Bellamy MD [address] [place] [address] PCP - General Family Medicine 01/01/21 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 Relationship Specialty Start Date End Date Binu Bellamy MD [address] [place] [address] PCP - General Family Medicine 01/01/21 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 Relationship Specialty Start Date End Date Binu Bellamy MD [address] [place] [address] PCP - General Family Medicine 01/01/21 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 Relationship Specialty Start Date End Date Binu Bellamy MD [address] [place] [address] PCP - General Family Medicine 01/01/21 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 Relationship Specialty Start Date End Date Binu Bellamy MD [address] [place] [address] PCP - General Family Medicine 01/01/21 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 Relationship Specialty Start Date End Date Binu Bellamy MD [address] [place] [address] PCP - General Family Medicine 01/01/21 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 Relationship Specialty Start Date End Date Binu Bellamy MD [address] [place] [address] PCP - General Family Medicine 01/01/21 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 Relationship Specialty Start Date End Date Binu Bellamy MD [address] [place] [address] PCP - General Family Medicine 01/01/21 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 Relationship Specialty Start Date End Date Binu Bellamy MD [address] [place] [address] PCP - General Family Medicine 01/01/21 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 Relationship Specialty Start Date End Date Binu Bellamy MD [address] [place] [address] PCP - General Family Medicine 01/01/21 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 Relationship Specialty Start Date End Date Binu Bellamy MD [address] [place] [address] PCP - General Family Medicine 01/01/21 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 Relationship Specialty Start Date End Date Binu Bellamy MD [address] [place] [address] PCP - General Family Medicine 01/01/21 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 Relationship Specialty Start Date End Date Bniu Bellamy MD [address] [place] [address] PCP - General Family Medicine 01/01/21 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 [facility] [facility]. provides no warranty or guarantee of the accuracy or completeness of information in this document.
[2023-08-15 12:27] VITALS: BP 117/76; BP 123/63; BP 123/67; PULSE 84; PULSE 86; PULSE 92
[2023-08-15 13:13] VITALS: BP 124/64; PULSE 81; RESP 16; TEMP 36.6; O2SAT 96
== END 2023-08-15 13:16 | disposition home or self-care (01) ==
PROVIDERS: Emergency Provider Emergency Medicine; PCP Family Medicine Geriatric Medicine; Visit Provider Emergency Medicine
DX: R42 Dizziness and giddiness (principal); Z87.891 Personal history of nicotine dependence; R11.0 Nausea; E78.5 Hyperlipidemia, unspecified; I10 Essential (primary) hypertension; N40.0 Benign prostatic hyperplasia without lower urinary tract symptoms; Z79.899 Other long term (current) drug therapy; J45.909 Unspecified asthma, uncomplicated; Z79.51 Long term (current) use of inhaled steroids; F41.9 Anxiety disorder, unspecified; F32.A Depression, unspecified; K21.9 Gastro-esophageal reflux disease without esophagitis; Z98.49 Cataract extraction status, unspecified eye; H91.90 Unspecified hearing loss, unspecified ear
CPT/HCPCS: 70450; 80048; 85025; 93005; 96365; 96375; 99284; J7030; A4216; J2405

== ENCOUNTER → 2023-09-20 | Outpatient (CLI) | payer MEDICARE, SELFPAY ==
[2023-09-20 11:33] LABS: Absolute Lymphocyte Count 2.35 X10^3/uL (0.83-4.51); Absolute Neutrophil Count 4.5 X10^3/uL (2.0-7.7); Basophil# 0.02 X10^3/uL; Basophil% 0.3 % (0-1); Eosinophil# 0.01 X10^3/uL; Eosinophils% 0.1 % (0-5); Hematocrit 46.7 % (40-54); Hemoglobin 15.5 g/dL (13.0-16.5); Lymphocyte # 2.35 X10^3/ul (0.83-4.51); Lymphocyte % 32.2 % (19-41); Mean Corp Hgb Conc 33.2 g/dL (32-36); Mean Corpuscular Volume 90.5 fL (80-94); Mean Platelet Vol. 9.5 fl (6.2-12.0); Monocyte# 0.41 X10^3/uL; Monocyte% 5.6 % (0-10); NRBC Flagged by Analyzer 0 % (0-5); Neutrophil # 4.48 X10^3/uL (2.7-7.7); Neutrophil % 61.5 % (47-70); Platelet Count 165 K/mm3 (150-450); RBC Distribution Width CV 13.2 % (11.6-14.6); RBC Distribution Width SD 44.3 fl (35.1-43.9); Red Blood Count 5.16 M/mm3 (4.6-6.2); White Blood Count 7.3 K/mm3 (4.4-11.0)
[2023-09-20 11:53] LABS: Vitamin D,25 Hydroxy 23.5 ng/mL
[2023-09-20 12:01] LABS: ALB/GLOB Ratio 1.3 RATIO (0.9-2.4); AST(SGOT) 22 U/L (15-37); Alanine Aminotransfer ALT/SGPT 27 U/L (16-61); Albumin, Serum 3.9 g/dL (3.2-5.0); Alkaline Phosphatase 100 U/L (45-117); Anion Gap 7 (5-15); BUN 17 mg/dL (7-18); Calcium,Total 8.7 mg/dL (8.5-10.1); Chloride 110 mmol/L (98-107); Creatinine, Serum 1.13 mg/dL (0.70-1.30); EST Glomerular Filtration Rate 66 mL/min (>60); Est Glom Filt Rate - Afr Amer 80 mL/min (>60); Globulin 2.9 g/dL (2.2-4.2); Glucose 96 mg/dL (74-106); Potassium 4.4 mmol/L (3.5-5.1); Protein, Total 6.8 g/dL (6.4-8.2); Sodium Level 139 mmol/L (136-145); Thyroid Stim Hormone (TSH) 1.23 uIU/mL (0.358-3.74)
[2023-09-20 12:44] LABS: PSA,Total - Annual Screen 0.16 ng/mL (0.00-4.00)
== END | disposition home or self-care (01) ==
LOC: POLAB3 10:42
PROVIDERS: PCP Family Medicine Geriatric Medicine; Visit Provider Family Medicine Geriatric Medicine
DX: I10 Essential (primary) hypertension (principal); E55.9 Vitamin D deficiency, unspecified; Z12.5 Encounter for screening for malignant neoplasm of prostate
CPT/HCPCS: 36415; 80053; 82306; 84153; 84443; 85025; G0103

== ENCOUNTER → 2023-10-07 | Outpatient (CLI) | payer MEDICARE, SELFPAY ==
[2023-10-07 20:17] LABS: M R Staph aureus DNA By PCR Negative (Negative); Probe Check PASS; Specimen Processing Control PASS; Staph aureus DNA By PCR NEGATIVE (Negative)
== END | disposition home or self-care (01) ==
PROVIDERS: PCP Family Medicine Geriatric Medicine; Referring Provider Family Medicine Geriatric Medicine; Visit Provider Family Medicine Geriatric Medicine
DX: L03.113 Cellulitis of right upper limb (principal)
CPT/HCPCS: 87070; 87077; 87186; 87205; 87640

== ENCOUNTER 2023-10-27 09:30 | Outpatient (RCR) | payer MEDICARE, SELFPAY ==
[2023-10-13 09:39] VITALS: BP 121/67; PULSE 90; RESP 18; TEMP 36.6; BMI 28.8
--- NOTE | 2023-10-13 11:25 | HP.PCM_ITS ---
History of Present Illness Date of Service: 10/13/23 Chief Complaint: Left forearm skin tear History of Wound: 78-year-old white male patient of Dr. García. Accidentally got his left forearm hit by his nephew's knee and tore the skin. Bleeding under control. Dr. García put him on some Keflex and gave him a shot of Rocephin. He referred him to the wound center. Patient is not on blood thinners or is diabetic. 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, COMPUTER PROCESSING SCHEDULER-C) Anxiety Lower urinary tract symptoms (LUTS) Constipation Chronic low back pain BPH (benign prostatic hyperplasia) Hyperlipidemia Depression SOB (shortness of breath) Asthma COVID-19 Hypertension GERD (gastroesophageal reflux disease) Home Medications ?Medication ?Instructions ?Recorded ?Last Taken ?Type polyethylene glycol 3350 17 gram 17 g PO DAILY PRN Constipation 04/19/13 04/19/13 07:00 History oral powder packet lisinopril 5 mg tablet 5 mg PO DAILY 08/28/20 Unknown History tamsulosin 0.4 mg capsule 0.4 mg PO QHS 06/16/21 Unknown History albuterol sulfate 90 mcg/actuation 2 inh inhalation Q6H PRN shortness 05/06/23 Unknown History breath activated powder inhaler of breath mometasone-formoterol HFA 200 2 puff inhalation BID 05/06/23 Unknown History mcg-5 mcg/actuation aerosol inhaler (Dulera) montelukast 10 mg tablet 10 mg PO DAILY 05/06/23 Unknown History nortriptyline 50 mg capsule 50 mg PO BID 06/02/23 Unknown History omeprazole 10 mg capsule,delayed 40 mg PO DAILY 06/02/23 Unknown History release meclizine 25 mg chewable tablet 25 mg PO TID PRN dizziness #20 tabs 08/15/23 Unknown Rx (Antivert) ondansetron 4 mg disintegrating 4 mg PO Q8H PRN PRN Nausea #10 tabs 08/15/23 Unknown Rx tablet cephalexin 500 mg capsule 500 mg PO Q6H 10/13/23 Unknown History Allergy/AdvReac Type Severity Reaction Status Date / Time No Known Allergies Allergy Verified 08/15/23 11:14 Family History Mother Depression CVA (cerebral vascular accident) Anxiety Hypertension Father Pancreatic cancer Surgical History Hx of cataract extraction Social History Smoking Status: Never smoker alcohol intake: never substance use type: does not use ROS Constitutional Constitutional: Reports systems reviewed and no addt'l complaints, except as documented Eyes Eyes: Reports systems reviewed and no addt'l complaints, except as documented ENT HEENT: Reports systems reviewed and no addt'l complaints, except as documented Cardiovascular Cardiovascular: Reports systems reviewed and no addt'l complaints, except as documented Respiratory/Chest Respiratory/Chest: Reports systems reviewed and no addt'l complaints, except as documented Gastrointestinal Gastrointestinal: Reports systems reviewed and no addt'l complaints, except as documented Genitourinary Genitourinary: Reports systems reviewed and no addt'l complaints, except as documented Musculoskeletal Musculoskeletal: Reports systems reviewed and no addt'l complaints, except as documented Integumentary Integumentary: Reports wounds and other Details: Skin tear left forearm triangular-shaped about the size of a quarter $0.50 piece Neurologic Neurologic: Reports systems reviewed and no addt'l complaints, except as docume nted Psychiatric Psychiatric: Reports systems reviewed and no addt'l complaints, except as documented Endocrine Endocrinology: Reports systems reviewed and no addt'l complaints, except as documented Hematologic/Lymphatic Hematologic/Lymphatic: Reports systems reviewed and no addt'l complaints, except as documented Allergic/Immunologic Allergic/Immunologic: Reports systems reviewed and no addt'l complaints, except as documented Vital Signs Vital Signs Vital Signs: 10/13/23 09:39 Temperature 97.8 F Temperature Source Temporal Pulse Rate 90 Respiratory Rate 18 Blood Pressure 121/67 H Blood Pressure Mean 85 Blood Pressure Source Monitor Blood Pressure Position Sitting Blood Pressure Location Left Arm Weight Weight: 190 lb Body Mass Index (BMI) 28.8 Debridement Note Debridement Note Post-Debridement Measurements and Additional Note: Post-Debridement Measurements/Treatment WC - Nurse 1 - General Ulcer Assessment Start: 10/13/23 09:39 Freq: Status: Active Protocol: CRUZ.LOWEXT Activity Type Activity Date Activity User E-sign Co-sign Detail Recorded Client Recorded Date Recorded By Document 10/13/23 09:39 RAYA [id number] 10/13/23 09:42 RAYA 10/13/23 09:39 WC - Today's Visit Information Type of service Initial Visit Arrival Mode Ambulatory Transfer Assistance None Patient Identification Verified (Name & Yes ) Patient Requires Transmission-Based No Precautions Height and Weight Height 5 ft 8 in Weight 190 lb Weight in Pounds 190.0 lbs Body Mass Index (BMI) 28.8 BMI Classification Overweight BSA - Baudilio 2.00 Vital Signs Temperature (97.8 F-99.1 F) 97.8 F Temperature Source Temporal Pulse Rate (60-100) 90 Pulse Location Monitor Respiratory Rate (12-18) 18 Respiratory rate source Observation Blood Pressure (90/60-120/80) 121/67 H Blood Pressure Mean (mm Hg) 85 Source Monitor Position Sitting Blood Pressure Location Left Arm History Since Last Visit- (Skip if this is Patient's initial visit) Have you changed medications since your No last visit? Any new allergies or adverse reactions No Had a fall/change in ADL's that may No increase risk of falls Signs or symptoms of abuse and/or No neglect since last visit Have you been in the hospital since your No last visit? Has dressing in place as prescribed Yes Has compression in place as prescribed No Has offloadiing in place as prescribed No Experienced any changes in pain level or No management Pain Scale: 0-10 Numeric Is Patient Pain Free? Yes Communication Assessment Preferred language Vietnamese Home Aid Required No Able to Read Yes Able to Write Yes Communication Tools None Right Hearing Abillity Normal Left Hearing Abillity Normal Visual Assistive Devices Glasses Teaching Assessment Preferences Verbal,Written, Demonstration Barriers to Learning None Readiness To Learn Good Willingness to Engage in Self Management Med Activies Readiness to Engage in Self Management Med Activities Anxiety Level Calm Cooperation Cooperative Perception Coherent Interest in Health Problem Asks Questions Education Importance Acknowledges Need Does Patient Smoke tobacco or other No substances Smoking Status Never smoker Is Patient Diabetic No Functional Assessment Recent Decline in Ability to Perform Denies Any Declines Assistive Device With Patient No Culture/Jew/Neon Sign Installer Cultural/Jew Needs that may affect No Treatment Plan Would you allow our hospital sports marketing coordinator to No meet you for the purpose of spiritual/ emotional support? Neon Sign Installer to contact place of confucianism No Teaching: Wound Center *Welcome to the Wound Center -Person Taught Patient -Teaching Method Discussion, Demonstration -Response to teaching Verbalize understanding WC - Nurse 1 - General Ulcer Measurement Start: 10/13/23 09:39 Freq: Status: Active Protocol: Activity Type Activity Date Activity User E-sign Co-sign Detail Recorded Client Recorded Date Recorded By Document 10/13/23 09:39 RB [id number] 10/13/23 09:42 RB 10/13/23 09:39 Wound Center Nurse 1 1. R lower arm anterior -Combined with other wound No -Current Size (cm) - Length 2.8 -Current Size (cm) - Width 1.6 -Current Size (cm) - Depth 0.1 -Total Square Cm 4.48 -Photo Taken Yes -Tunneling No -Undermining/Tunneling No -Circular Undermining No -Exudate Amt Medium -Exudate Type Serosanguineous -Wound Margin Distinct, Outline Attached -Granulation Amt Medium (34-66%) -Granulation Quality Red -Slough/Fibrin Yes -Necrosis Amt Small (1-33%) -Necrotic Tissue Type Adherent Slough -Structure Exposed N/A -Texture (Edie-wound Skin Appearance) Assessed, Friable -Moisture (Edie-wound Skin Appearance) Assessed -Color (Edie-wound Skin Appearance) Assessed -Temperature (Edie-wound Skin No Abnormality Appearance) (Pt Warm) -Tenderness on Palpation (Edie-wound No Skin Appearance) -Ulcer Cleansing Wound Cleanser -Foul Odor after Cleansing No -Anesthetic Used 4% Lidocaine Solution - Nurse 2 - General Ulcer CM Notes Start: 10/13/23 09:39 Freq: Status: Active Protocol: Activity Type Activity Date Activity User E-sign Co-sign Detail Recorded Client Recorded Date Recorded By Document 10/13/23 09:48 [facility] wound center 10/13/23 09:53 [facility] 10/13/23 09:48 Wound Center Nurse 2 -Time 09:48 -Correct Patient Yes -Correct Side, Site, Position Yes -Correct Procedure Yes -Procedure Performed Yes -Type of Procedure Debridement -Clinical Debridement Subcutaneous -Tissue Removed Subcutaneous -Post Debridement (cm) - Length 2.5 -Post Debridement (cm) - Width 1.8 -Post Debridement (cm) - Depth 0.1 -Total Square (Post) (cm) 4.50 -Tunneling No -Undermining/Tunneling No -Circular Undermining No -Wound/Ulcer Outcome Not Healed -Ulcer Cleansing Rinsed/ Irrigated with Saline -Foul Odor after Cleansing No -Bioengineered Tissue No -Bleeding Controlled with Pressure -Treatment Response Procedure Tolerated Well -Debridement - Subq, 1st 20sq cm Yes Pain Scale: 0-10 Numeric Is Patient Pain Free? Yes - Nurse 3 - General Ulcer D/C NN Start: 10/13/23 09:39 Freq: Status: Active Protocol: Activity Type Activity Date Activity User E-sign Co-sign Detail Recorded Client Recorded Date Recorded By Document 10/13/23 11:04 wound center 10/13/23 11:05 10/13/23 11:04 Wound Care Center Nurse 3 1. R lower arm anterior -Ulcer Cleansing Rinsed/ Irrigated with Saline -Primary Dressing Applied Fibracol Plus 4x4,NonAdherent Contact Layer -Primary Dressing Covered/Secured with Dry Gauze,Dry Gauze & Roll Gauze,Secured with Tape -Fibracol Plus 4x4 1 Treatment Response Procedure Tolerated Well Pain Scale: 0-10 Numeric Is Patient Pain Free? Yes Teaching: Wound Center Dressing Your Wound -Person Taught Patient -Teaching Method Discussion, Demonstration -Response to teaching Verbalize understanding - Visit Discharge Discharge Condition Stable Ambulatory Status Ambulatory Transportation Private Auto Medication Reconcilliation completed & No provided to patient/care provider Clinical Summary of Care Provided Yes
--- NOTE | 2023-10-13 11:29 | PCM.WC.HP ---
History of Present Illness Date of Service: 10/13/23 Chief Complaint: Left forearm skin tear History of Wound: 78-year-old white male patient of Dr. García. Accidentally got his left forearm hit by his nephew's knee and tore the skin 1 week ago . Bleeding under control. Dr. García put him on some Keflex and gave him a shot of Rocephin. He referred him to the wound center. Patient is not on blood thinners or is diabetic. [facility] [place] Medical History Anxiety Lower urinary tract symptoms (LUTS) Constipation Chronic low back pain BPH (benign prostatic hyperplasia) Hyperlipidemia Depression SOB (shortness of breath) Asthma COVID-19 Hypertension GERD (gastroesophageal reflux disease) Home Medications ?Medication ?Instructions ?Recorded ?Last Taken ?Type polyethylene glycol 3350 17 gram 17 g PO DAILY PRN Constipation 04/19/13 04/19/13 07:00 History oral powder packet lisinopril 5 mg tablet 5 mg PO DAILY 08/28/20 Unknown History tamsulosin 0.4 mg capsule 0.4 mg PO QHS 06/16/21 Unknown History albuterol sulfate 90 mcg/actuation 2 inh inhalation Q6H PRN shortness 05/06/23 Unknown History breath activated powder inhaler of breath mometasone-formoterol HFA 200 2 puff inhalation BID 05/06/23 Unknown History mcg-5 mcg/actuation aerosol inhaler (Dulera) montelukast 10 mg tablet 10 mg PO DAILY 05/06/23 Unknown History nortriptyline 50 mg capsule 50 mg PO BID 06/02/23 Unknown History omeprazole 10 mg capsule,delayed 40 mg PO DAILY 06/02/23 Unknown History release meclizine 25 mg chewable tablet 25 mg PO TID PRN dizziness #20 tabs 08/15/23 Unknown Rx (Antivert) ondansetron 4 mg disintegrating 4 mg PO Q8H PRN PRN Nausea #10 tabs 08/15/23 Unknown Rx tablet cephalexin 500 mg capsule 500 mg PO Q6H 10/13/23 Unknown History Allergy/AdvReac Type Severity Reaction Status Date / Time No Known Allergies Allergy Verified 08/15/23 11:14 Family History Mother Depression CVA (cerebral vascular accident) Anxiety Hypertension Father Pancreatic cancer Surgical History Hx of cataract extraction Social History Smoking Status: Never smoker alcohol intake: never substance use type: does not use ROS Constitutional Constitutional: Reports systems reviewed and no addt'l complaints, except as documented Eyes Eyes: Reports systems reviewed and no addt'l complaints, except as documented ENT HEENT: Reports systems reviewed and no addt'l complaints, except as documented Cardiovascular Cardiovascular: Reports systems reviewed and no addt'l complaints, except as documented Respiratory/Chest Respiratory/Chest: Reports systems reviewed and no addt'l complaints, except as documented Gastrointestinal Gastrointestinal: Reports systems reviewed and no addt'l complaints, except as documented Genitourinary Genitourinary: Reports systems reviewed and no addt'l complaints, except as documented Musculoskeletal Musculoskeletal: Reports systems reviewed and no addt'l complaints, except as documented Integumentary Integumentary: Reports wounds and other Details: V-shaped skin tear that is not well-approximated to the left forearm bleeding under control Neurologic Neurologic: Reports systems reviewed and no addt'l complaints, except as documented Psychiatric Psychiatric: Reports systems reviewed and no addt'l complaints, except as documented Endocrine Endocrinology: Reports systems reviewed and no addt'l complaints, except as documented Hematologic/Lymphatic Hematologic/Lymphatic: Reports systems reviewed and no addt'l complaints, except as documented Allergic/Immunologic Allergic/Immunologic: Reports systems reviewed and no addt'l complaints, except as documented Vital Signs Vital Signs Vital Signs: 10/13/23 09:39 Temperature 97.8 F Temperature Source Temporal Pulse Rate 90 Respiratory Rate 18 Blood Pressure 121/67 H Blood Pressure Mean 85 Blood Pressure Source Monitor Blood Pressure Position Sitting Blood Pressure Location Left Arm Weight Weight: 190 lb Body Mass Index (BMI) 28.8 Physical Exam Const oriented x3 General Appearance: cooperative Exam Limitations: no limitations HEENT normocephalic Head and Scalp: normal to inspection Face and Sinus: normal facial exam Nose: external nose normal General Ear: hearing grossly impaired Eyes PERRL General Eye: normal appearance of both eyes Pupil: PERRL Neck full ROM General: normal visual inspection Resp normal respiratory effort Effort and Inspection: able to speak in complete sentences Auscultation: clear to auscultation bilaterally Cardio regular rate and regular rhythm Palpation: normal PMI Rate: regular rate Rhythm: regular rhythm Extremity normal to inspection General Extremity: normal exam except as noted Skin Trauma: laceration Y-shaped Wounds: wounds noted Wound Narrative: Skin tear partial avulsion laceration to the top layer of skin bleeding under control skin not well-approximated Neuro oriented x3 Psych Appearance: grossly normal Speech: normal speech Thought Content: normal thought content Judgement: judgement good Debridement Note Debridement Note Wound debrided: Laceration left forearm Laterality: Left Type of Debridement: Excisional debridement Anesthesia Used: 5% Lidocaine Gel Depth: Down to and including healthy tissue and in the subcutaneous layer Percentage of wound debrided: 100 Instrument Used: 3mm curette Tissue Removed: Fibrin and devitalized tissue Severity: Limited To Skin Breakdown Amount of bleeding with debridement: Mild Bleeding Controlled with: Compression and gauze Patient tolerated procedure: Patient tolerated procedure well Post-Debridement Measurements and Additional Note: Post-Debridement Measurements/Treatment - Nurse 1 - General Ulcer Assessment Start: 10/13/23 09:39 Freq: Status: Active Protocol: CRUZ.ELIAS Activity Type Activity Date Activity User E-sign Co-sign Detail Recorded Client Recorded Date Recorded By Document 10/13/23 09:39 RAYA [id number] 10/13/23 09:42 RAYA 10/13/23 09:39 - Today's Visit Information Type of service Initial Visit Arrival Mode Ambulatory Transfer Assistance None Patient Identification Verified (Name & Yes ) Patient Requires Transmission-Based No Precautions Height and Weight Height 5 ft 8 in Weight 190 lb Weight in Pounds 190.0 lbs Body Mass Index (BMI) 28.8 BMI Classification Overweight BSA - Baudilio 2.00 Vital Signs Temperature (97.8 F-99.1 F) 97.8 F Temperature Source Temporal Pulse Rate (60-100) 90 Pulse Location Monitor Respiratory Rate (12-18) 18 Respiratory rate source Observation Blood Pressure (90/60-120/80) 121/67 H Blood Pressure Mean 85 Source Monitor Position Sitting Blood Pressure Location Left Arm History Since Last Visit- (Skip if this is Patient's initial visit) Have you changed medications since your No last visit? Any new allergies or adverse reactions No Had a fall/change in ADL's that may No increase risk of falls Signs or symptoms of abuse and/or No neglect since last visit Have you been in the hospital since your No last visit? Has dressing in place as prescribed Yes Has compression in place as prescribed No Has offloadiing in place as prescribed No Experienced any changes in pain level or No management Pain Scale: 0-10 Numeric Is Patient Pain Free? Yes Communication Assessment Preferred language [place] Sequins Slinger Required No Able to Read Yes Able to Write Yes Communication Tools None Right Hearing Abillity Normal Left Hearing Abillity Normal Visual Assistive Devices Glasses Teaching Assessment Preferences Verbal,Written, Demonstration Barriers to Learning None Readiness To Learn Good Willingness to Engage in Self Management Med Activies Readiness to Engage in Self Management Med Activities Anxiety Level Calm Cooperation Cooperative Perception Coherent Interest in Health Problem Asks Questions Education Importance Acknowledges Need Does Patient Smoke tobacco or other No substances Smoking Status Never smoker Is Patient Diabetic No Functional Assessment Recent Decline in Ability to Perform Denies Any Declines Assistive Device With Patient No Culture/Mandaeism/General Science Teacher Cultural/Mandaeism Needs that may affect No Treatment Plan Would you allow our hospital high school principal to No meet you for the purpose of spiritual/ emotional support? General Science Teacher to contact place of mormonism No Teaching: Wound Center *Welcome to the Wound Center -Person Taught Patient -Teaching Method Discussion, Demonstration -Response to teaching Verbalize understanding WC - Nurse 1 - General Ulcer Measurement Start: 10/13/23 09:39 Freq: Status: Active Protocol: Activity Type Activity Date Activity User E-sign Co-sign Detail Recorded Client Recorded Date Recorded By Document 10/13/23 09:39 RAYA [id number] 10/13/23 09:42 RB 10/13/23 09:39 Wound Center Nurse 1 1. R lower arm anterior -Combined with other wound No -Current Size (cm) - Length 2.8 -Current Size (cm) - Width 1.6 -Current Size (cm) - Depth 0.1 -Total Square Cm 4.48 -Photo Taken Yes -Tunneling No -Undermining/Tunneling No -Circular Undermining No -Exudate Amt Medium -Exudate Type Serosanguineous -Wound Margin Distinct, Outline Attached -Granulation Amt Medium (34-66%) -Granulation Quality Red -Slough/Fibrin Yes -Necrosis Amt Small (1-33%) -Necrotic Tissue Type Adherent Slough -Structure Exposed N/A -Texture (Edie-wound Skin Appearance) Assessed, Friable -Moisture (Edie-wound Skin Appearance) Assessed -Color (Edie-wound Skin Appearance) Assessed -Temperature (Edie-wound Skin No Abnormality Appearance) (Pt Warm) -Tenderness on Palpation (Edie-wound No Skin Appearance) -Ulcer Cleansing Wound Cleanser -Foul Odor after Cleansing No -Anesthetic Used 4% Lidocaine Solution - Nurse 2 - General Ulcer CM Notes Start: 10/13/23 09:39 Freq: Status: Active Protocol: Activity Type Activity Date Activity User E-sign Co-sign Detail Recorded Client Recorded Date Recorded By Document 10/13/23 09:48 [facility] wound center 10/13/23 09:53 [facility] 10/13/23 09:48 Wound Center Nurse 2 -Time 09:48 -Correct Patient Yes -Correct Side, Site, Position Yes -Correct Procedure Yes -Procedure Performed Yes -Type of Procedure Debridement -Clinical Debridement Subcutaneous -Tissue Removed Subcutaneous -Post Debridement (cm) - Length 2.5 -Post Debridement (cm) - Width 1.8 -Post Debridement (cm) - Depth 0.1 -Total Square (Post) (cm) 4.50 -Tunneling No -Undermining/Tunneling No -Circular Undermining No -Wound/Ulcer Outcome Not Healed -Ulcer Cleansing Rinsed/ Irrigated with Saline -Foul Odor after Cleansing No -Bioengineered Tissue No -Bleeding Controlled with Pressure -Treatment Response Procedure Tolerated Well -Debridement - Subq, 1st 20sq cm Yes Pain Scale: 0-10 Numeric Is Patient Pain Free? Yes - Nurse 3 - General Ulcer D/C NN Start: 10/13/23 09:39 Freq: Status: Active Protocol: Activity Type Activity Date Activity User E-sign Co-sign Detail Recorded Client Recorded Date Recorded By Document 10/13/23 11:04 wound center 10/13/23 11:05 10/13/23 11:04 Wound Care Center Nurse 3 1. R lower arm anterior -Ulcer Cleansing Rinsed/ Irrigated with Saline -Primary Dressing Applied Fibracol Plus 4x4,NonAdherent Contact Layer -Primary Dressing Covered/Secured with Dry Gauze,Dry Gauze & Roll Gauze,Secured with Tape -Fibracol Plus 4x4 1 Treatment Response Procedure Tolerated Well Pain Scale: 0-10 Numeric Is Patient Pain Free? Yes Teaching: Wound Center Dressing Your Wound -Person Taught Patient -Teaching Method Discussion, Demonstration -Response to teaching Verbalize understanding WC - Visit Discharge Discharge Condition Stable Ambulatory Status Ambulatory Transportation Private Auto Medication Reconcilliation completed & No provided to patient/care provider Clinical Summary of Care Provided Yes Assessment/Plan Assessment/Plan (1) Laceration of left forearm: CODE(S): S51.812A - Laceration without foreign body of left forearm, initial encounter QUALIFIERS: Encounter type: initial encounter Qualified Code(s): S51.812A - Laceration without foreign body of left forearm, initial encounter PLAN: Wash area with antibacterial soap and apply Fibracol to wound base moistened cover with Adaptic gauze and Andrzej dressing daily . Follow-up in 1 week (2) Nonhealing nonsurgical wound: CODE(S): T14.8XXA - Other injury of unspecified body region, initial encounter
--- NOTE | 2023-10-14 11:00 | WC ---
10/13/2023 RIGHT LOWER ARM
[2023-10-20 08:58] VITALS: BP 126/74; PULSE 87; RESP 16; TEMP 35.9; BMI 28.8
--- NOTE | 2023-10-20 11:22 | PN.PCM_ITS ---
History of Present Illness Date of Service: 10/20/23 Chief Complaint: Left forearm skin tear History of Wound: 78-year-old white male patient of Dr. García. Accidentally got his left forearm hit by his nephew's knee and tore the skin 1 week ago . Bleeding under control. Dr. García put him on some Keflex and gave him a shot of Rocephin. He referred him to the wound center. Patient is not on blood thinners or is diabetic. Progress of Wound: Almost healed he had a thin lining of devitalized tissue that did not take we debrided that and he should be cleared up by next week. Subjective Subjective Patient states was not informed of how to do the dressing change but he should be given instructions as were doing him we will read discussed with the girls to go over the dressing changes but what ever has been doing it has been working. Objective Data Objective Data No sign of infections measurements are much smaller doing well healing with the Fibracol to the wound tolerating everything well Vital Signs: Vital Signs Temp Pulse Resp BP O2 Del Method 96.6 F L 87 16 126/74 H Room Air 10/20/23 08:58 10/20/23 08:58 10/20/23 08:58 10/20/23 08:58 10/20/23 08:58 Oxygen Delivery Method Room Air Weight: 190 lb Body Mass Index (BMI) 28.8 Physical Exam Const oriented x3 General Appearance: cooperative Exam Limitations: no limitations HEENT normocephalic Head and Scalp: normal to inspection Face and Sinus: normal facial exam Nose: external nose normal General Ear: hearing grossly impaired Eyes PERRL General Eye: normal appearance of both eyes Pupil: PERRL Neck full ROM General: normal visual inspection Resp normal respiratory effort Effort and Inspection: able to speak in complete sentences Auscultation: clear to auscultation bilaterally Cardio regular rate and regular rhythm Palpation: normal PMI Rate: regular rate Rhythm: regular rhythm Extremity normal to inspection General Extremity: normal exam except as noted Skin Trauma: laceration Y-shaped Wounds: wounds noted Wound Narrative: Skin tear partial avulsion laceration to the top layer of skin bleeding under control skin not well-approximated Neuro oriented x3 Psych Appearance: grossly normal Speech: normal speech Thought Content: normal thought content Judgement: judgement good Debridement Note Debridement Note Wound debrided: Laceration left forearm Laterality: Left Type of Debridement: Excisional debridement Anesthesia Used: 5% Lidocaine Gel Depth: Down to and including healthy tissue and in the subcutaneous layer Percentage of wound debrided: 100 Instrument Used: 3mm curette Tissue Removed: Fibrin and devitalized tissue Severity: Limited To Skin Breakdown Amount of bleeding with debridement: Mild Bleeding Controlled with: Compression and gauze Patient tolerated procedure: Patient tolerated procedure well Post-Debridement Measurements and Additional Note: Post-Debridement Measurements/Treatment - Nurse 1 - General Ulcer Assessment Start: 10/13/23 09:39 Freq: Status: Active Protocol: GILLIAN Activity Type Activity Date Activity User E-sign Co-sign Detail Recorded Client Recorded Date Recorded By Document 10/13/23 09:39 RB [id number] 10/13/23 09:42 RB Document 10/20/23 08:58 [facility] [id number] 10/20/23 09:05 [facility] 10/13/23 10/20/23 09:39 08:58 - Today's Visit Information Type of service Initial Visit Follow-up Visit (Physician/PACKER ) Arrival Mode Ambulatory Ambulatory Transfer Assistance None None Patient Identification Verified (Name & Yes Yes ) Patient Requires Transmission-Based No Precautions Height and Weight Height 5 ft 8 in Weight 190 lb Weight in Pounds 190.0 lbs Body Mass Index (BMI) 28.8 28.8 BMI Classification Overweight Overweight BSA - Baudilio 2.00 Vital Signs Temperature (97.8 F-99.1 F) 97.8 F 96.6 F L Temperature Source Temporal Temporal Pulse Rate (60-100) 90 87 Pulse Location Monitor Monitor Respiratory Rate (12-18) 18 16 Respiratory rate source Observation Observation Oxygen Delivery Method Room Air Blood Pressure (90/60-120/80) 121/67 H 126/74 H Blood Pressure Mean (mm Hg) 85 91 Source Monitor Monitor Position Sitting Sitting Blood Pressure Location Left Arm Left Arm History Since Last Visit- (Skip if this is Patient's initial visit) Have you changed medications since your No No last visit? Any new allergies or adverse reactions No No Had a fall/change in ADL's that may No No increase risk of falls Signs or symptoms of abuse and/or No No neglect since last visit Have you been in the hospital since your No No last visit? Has dressing in place as prescribed Yes Yes Has compression in place as prescribed No N/A Has offloadiing in place as prescribed No N/A Experienced any changes in pain level or No No management Left Footwear Regular Shoe Right Footwear Regular Shoe Pain Scale: 0-10 Numeric Is Patient Pain Free? Yes Yes Communication Assessment Preferred language Ukrainian Solutions Engineer Required No Able to Read Yes Able to Write Yes Communication Tools None Right Hearing Abillity Normal Left Hearing Abillity Normal Visual Assistive Devices Glasses Teaching Assessment Preferences Verbal,Written, Demonstration Barriers to Learning None Readiness To Learn Good Willingness to Engage in Self Management Med Activies Readiness to Engage in Self Management Med Activities Anxiety Level Calm Cooperation Cooperative Perception Coherent Interest in Health Problem Asks Questions Education Importance Acknowledges Need Does Patient Smoke tobacco or other No substances Smoking Status Never smoker Is Patient Diabetic No Functional Assessment Recent Decline in Ability to Perform Denies Any Declines Assistive Device With Patient No Culture/Gnosticism/[place] Supervisor Cultural/Gnosticism Needs that may affect No Treatment Plan Would you allow our [facility] play therapist to No meet you for the purpose of spiritual/ emotional support? [place] Supervisor to contact place of advent No Teaching: Wound Center *Welcome to the Wound Center -Person Taught Patient -Teaching Method Discussion, Demonstration -Response to teaching Verbalize understanding WC - Nurse 1 - General Ulcer Measurement Start: 10/13/23 09:39 Freq: Status: Active Protocol: Activity Type Activity Date Activity User E-sign Co-sign Detail Recorded Client Recorded Date Recorded By Document 10/13/23 09:39 RB [id number] 10/13/23 09:42 RB Document 10/20/23 08:58 [facility] [id number] 10/20/23 09:05 [facility] 10/13/23 10/20/23 09:39 08:58 Wound Center Nurse 1 1. R lower arm anterior -Combined with other wound No No -Current Size (cm) - Length 2.8 0.1 -Current Size (cm) - Width 1.6 0.1 -Current Size (cm) - Depth 0.1 0.1 -Total Square Cm 4.48 0.01 -Date of Last Picture (Recall this 10/20/23 field) -Photo Taken Yes Yes -Epithelialization Large 67-100% -Tunneling No No -Undermining/Tunneling No No -Circular Undermining No No -Exudate Amt Medium Small -Exudate Type Serosanguineous Sanguineous -Wound Margin Distinct, Flat & Intact Outline Attached -Granulation Amt Medium (34-66%) Small (1-33%) -Granulation Quality Red Red -Slough/Fibrin Yes No -Necrosis Amt Small (1-33%) Medium (34-66%) -Necrotic Tissue Type Adherent Slough Adherent Slough -Structure Exposed N/A -Texture (Edie-wound Skin Appearance) Assessed, Assessed, Friable Scarring -Moisture (Edie-wound Skin Appearance) Assessed Assessed,Dry/ Scaly -Color (Edie-wound Skin Appearance) Assessed Assessed -Temperature (Edie-wound Skin No Abnormality No Abnormality Appearance) (Pt Warm) (Pt Warm) -Tenderness on Palpation (Edie-wound No No Skin Appearance) -Ulcer Cleansing Wound Cleanser Rinsed/ Irrigated with Saline -Foul Odor after Cleansing No No -Anesthetic Used 4% Lidocaine 4% Lidocaine Solution Solution WC - Nurse 2 - General Ulcer CM Notes Start: 10/13/23 09:39 Freq: Status: Active Protocol: Activity Type Activity Date Activity User E-sign Co-sign Detail Recorded Client Recorded Date Recorded By Document 10/13/23 09:48 [facility] wound center 10/13/23 09:53 [facility] Document 10/20/23 09:09 [facility] [id number] 10/20/23 09:13 [facility] 10/13/23 10/20/23 09:48 09:09 Wound Center Nurse 2 1. R lower arm anterior -Time 09:48 09:10 -Correct Patient Yes Yes -Correct Side, Site, Position Yes Yes -Correct Procedure Yes Yes -Procedure Performed Yes Yes -Type of Procedure Debridement Debridement -Clinical Debridement Subcutaneous Subcutaneous -Tissue Removed Subcutaneous Subcutaneous -Post Debridement (cm) - Length 2.5 1.7 -Post Debridement (cm) - Width 1.8 0.3 -Post Debridement (cm) - Depth 0.1 0.2 -Total Square (Post) (cm) 4.50 0.51 -Area of Debridement (cm) - Length 1.7 -Area of Debridement (cm) - Width 0.3 -Total Square (Area) (cm) 0.51 -Tunneling No No -Undermining/Tunneling No No -Circular Undermining No No -Wound/Ulcer Outcome Not Healed Not Healed -Ulcer Cleansing Rinsed/ Rinsed/ Irrigated with Irrigated with Saline Saline -Foul Odor after Cleansing No No -Bioengineered Tissue No No -Bleeding Controlled with Pressure Pressure -Treatment Response Procedure Procedure Tolerated Well Tolerated Well -Debridement - Subq, 1st 20sq cm Yes Yes Pain Scale: 0-10 Numeric Is Patient Pain Free? Yes Yes - Nurse 3 - General Ulcer D/C NN Start: 10/13/23 09:39 Freq: Status: Active Protocol: Activity Type Activity Date Activity User E-sign Co-sign Detail Recorded Client Recorded Date Recorded By Document 10/13/23 11:04 wound center 10/13/23 11:05 Document 10/20/23 09:14 [facility] [id number] 10/20/23 09:19 [facility] 10/13/23 10/20/23 11:04 09:14 Wound Care Center Nurse 3 1. R lower arm anterior -Ulcer Cleansing Rinsed/ Rinsed/ Irrigated with Irrigated with Saline Saline -Foul Odor after Cleansing No -Primary Dressing Applied Fibracol Plus NonAdherent 4x4,NonAdherent Contact Layer Contact Layer -Other Dressing fibracol -Primary Dressing Covered/Secured with Dry Gauze,Dry Dry Gauze & Gauze & Roll Roll Gauze, Gauze,Secured Secured with with Tape Tape -Fibracol Plus 4x4 1 Treatment Response Procedure Procedure Tolerated Well Tolerated Well Pain Scale: 0-10 Numeric Is Patient Pain Free? Yes Yes Teaching: Wound Center Dressing Your Wound -Person Taught Patient -Teaching Method Discussion, Demonstration -Response to teaching Verbalize understanding WC - Visit Discharge Discharge Condition Stable Stable Ambulatory Status Ambulatory Ambulatory Transportation Private Auto Private Auto Medication Reconcilliation completed & No provided to patient/care provider Clinical Summary of Care Provided Yes Assessment/Plan Assessment/Plan (1) Laceration of left forearm: CODE(S): S51.812A - Laceration without foreign body of left forearm, initial encounter QUALIFIERS: Encounter type: initial encounter Qualified Code(s): S51.812A - Laceration without foreign body of left forearm, initial encounter PLAN: Wash area with antibacterial soap and apply Fibracol to wound base moistened cover with Adaptic gauze and Andrzej dressing daily . Follow-up in 1 week (2) Nonhealing nonsurgical wound: CODE(S): T14.8XXA - Other injury of unspecified body region, initial encounter
[2023-10-27 09:22] VITALS: BP 122/69; PULSE 85; RESP 18; TEMP 36.1; BMI 28.8
--- NOTE | 2023-10-27 13:14 | PCM.WC.PN ---
History of Present Illness Date of Service: 10/27/23 Chief Complaint: Left forearm skin tear History of Wound: 78-year-old white male patient of Dr. García. Accidentally got his left forearm hit by his nephew's knee and tore the skin 1 week ago . Bleeding under control. Dr. García put him on some Keflex and gave him a shot of Rocephin. He referred him to the wound center. Patient is not on blood thinners or is diabetic. Progress of Wound: Completely healed and scab patient will be discharged from the wound center Subjective Subjective Patient very pleased with progress Objective Data Objective Data There is no need to follow-up patient is doing well skin new skin and the scab has developed patient may be discharged from the wound center Vital Signs: Vital Signs Temp Pulse Resp BP O2 Del Method 96.9 F L 85 18 122/69 H Room Air 10/27/23 09:22 10/27/23 09:22 10/27/23 09:22 10/27/23 09:22 10/20/23 08:58 Oxygen Delivery Method Room Air Weight: 190 lb Body Mass Index (BMI) 28.8 Physical Exam Const oriented x3 General Appearance: cooperative Exam Limitations: no limitations HEENT normocephalic Head and Scalp: normal to inspection Face and Sinus: normal facial exam Nose: external nose normal General Ear: hearing grossly impaired Eyes PERRL General Eye: normal appearance of both eyes Pupil: PERRL Neck full ROM General: normal visual inspection Resp normal respiratory effort Effort and Inspection: able to speak in complete sentences Auscultation: clear to auscultation bilaterally Cardio regular rate and regular rhythm Palpation: normal PMI Rate: regular rate Rhythm: regular rhythm Extremity normal to inspection General Extremity: normal exam except as noted Skin Trauma: laceration Y-shaped Wounds: wounds noted Wound Narrative: Skin tear partial avulsion laceration to the top layer of skin bleeding under control skin not well-approximated Neuro oriented x3 Psych Appearance: grossly normal Speech: normal speech Thought Content: normal thought content Judgement: judgement good Debridement Note Debridement Note No debridement was completed: No debridement was completed today Post-Debridement Measurements and Additional Note: Post-Debridement Measurements/Treatment CRUZ - Nurse 1 - General Ulcer Assessment Start: 10/13/23 09:39 Freq: Status: Active Protocol: GILLIAN Activity Type Activity Date Activity User E-sign Co-sign Detail Recorded Client Recorded Date Recorded By Document 10/13/23 09:39 RB [id number] 10/13/23 09:42 RB Document 10/20/23 08:58 [facility] [id number] 10/20/23 09:05 BM Document 10/27/23 09:22 DL [email or web address] 10/27/23 09:29 DL 10/13/23 10/20/23 10/27/23 09:39 08:58 09:22 WC - Today's Visit Information Type of service Initial Visit Follow-up Visit Initial Visit (Physician/SUPERVISOR ENROBING ) Arrival Mode Ambulatory Ambulatory Ambulatory Transfer Assistance None None None Patient Identification Verified (Name & Yes Yes Yes ) Patient Requires Transmission-Based No No Precautions Height and Weight Height 5 ft 8 in Weight 190 lb Weight in Pounds 190.0 lbs Body Mass Index (BMI) 28.8 28.8 28.8 BMI Classification Overweight Overweight Overweight BSA - Baudilio 2.00 Vital Signs Temperature (97.8 F-99.1 F) 97.8 F 96.6 F L 96.9 F L Temperature Source Temporal Temporal Temporal Pulse Rate (60-100) 90 87 85 Pulse Location Monitor Monitor Monitor Respiratory Rate (12-18) 18 16 18 Respiratory rate source Observation Observation Observation Oxygen Delivery Method Room Air Blood Pressure (90/60-120/80) 121/67 H 126/74 H 122/69 H Blood Pressure Mean (mm Hg) 85 91 86 Source Monitor Monitor Monitor Position Sitting Sitting Blood Pressure Location Left Arm Left Arm History Since Last Visit- (Skip if this is Patient's initial visit) Have you changed medications since your No No No last visit? Any new allergies or adverse reactions No No No Had a fall/change in ADL's that may No No No increase risk of falls Signs or symptoms of abuse and/or No No No neglect since last visit Have you been in the hospital since your No No No last visit? Has dressing in place as prescribed Yes Yes Yes Has compression in place as prescribed No N/A N/A Has offloadiing in place as prescribed No N/A N/A Experienced any changes in pain level or No No No management Left Footwear Regular Shoe Right Footwear Regular Shoe Pain Scale: 0-10 Numeric Is Patient Pain Free? Yes Yes Yes Communication Assessment Preferred language Hungarian Brush Polisher Required No Able to Read Yes Able to Write Yes Communication Tools None Right Hearing Abillity Normal Left Hearing Abillity Normal Visual Assistive Devices Glasses Teaching Assessment Preferences Verbal,Written, Demonstration Barriers to Learning None Readiness To Learn Good Willingness to Engage in Self Management Med Activies Readiness to Engage in Self Management Med Activities Anxiety Level Calm Cooperation Cooperative Perception Coherent Interest in Health Problem Asks Questions Education Importance Acknowledges Need Does Patient Smoke tobacco or other No substances Smoking Status Never smoker Is Patient Diabetic No Functional Assessment Recent Decline in Ability to Perform Denies Any Declines Assistive Device With Patient No Culture/Protestant/Certified Court/Medical Interpreter Cultural/Protestant Needs that may affect No Treatment Plan Would you allow our hospital gyroscopic instrument mechanic to No meet you for the purpose of spiritual/ emotional support? Certified Court/Medical Interpreter to contact place of zoroastrian No Teaching: Wound Center *Welcome to the Wound Center -Person Taught Patient -Teaching Method Discussion, Demonstration -Response to teaching Verbalize understanding WC - Nurse 1 - General Ulcer Measurement Start: 10/13/23 09:39 Freq: Status: Active Protocol: Activity Type Activity Date Activity User E-sign Co-sign Detail Recorded Client Recorded Date Recorded By Document 10/13/23 09:39 RB [id number] 10/13/23 09:42 RB Document 10/20/23 08:58 [facility] 1606-1-10 10/20/23 09:05 [facility] Document 10/27/23 09:22 DL [email or web address] 10/27/23 09:29 DL 10/13/23 10/20/23 10/27/23 09:39 08:58 09:22 Wound Center Nurse 1 1. R lower arm anterior -Combined with other wound No No -Current Size (cm) - Length 2.8 0.1 0.1 -Current Size (cm) - Width 1.6 0.1 0.1 -Current Size (cm) - Depth 0.1 0.1 0.1 -Total Square Cm 4.48 0.01 0.01 -Date of Last Picture (Recall this 10/20/23 field) -Photo Taken Yes Yes -Epithelialization Large 67-100% -Tunneling No No -Undermining/Tunneling No No -Circular Undermining No No -Exudate Amt Medium Small None Present -Exudate Type Serosanguineous Sanguineous -Wound Margin Distinct, Flat & Intact Flat & Intact Outline Attached -Granulation Amt Medium (34-66%) Small (1-33%) Large (67-100%) -Granulation Quality Red Red [place] -Slough/Fibrin Yes No -Necrosis Amt Small (1-33%) Medium (34-66%) Small (1-33%) -Necrotic Tissue Type Adherent Slough Adherent Slough Eschar -Structure Exposed N/A N/A -Texture (Edie-wound Skin Appearance) Assessed, Assessed, Scarring Friable Scarring -Moisture (Edie-wound Skin Appearance) Assessed Assessed,Dry/ No Abnormality Scaly -Color (Edie-wound Skin Appearance) Assessed Assessed No Abnormality -Temperature (Edie-wound Skin No Abnormality No Abnormality No Abnormality Appearance) (Pt Warm) (Pt Warm) (Pt Warm) -Tenderness on Palpation (Edie-wound No No No Skin Appearance) -Ulcer Cleansing Wound Cleanser Rinsed/ Soap and Water Irrigated with Saline -Foul Odor after Cleansing No No No -Anesthetic Used 4% Lidocaine 4% Lidocaine 5% Lidocaine Solution Solution Gel WC - Nurse 2 - General Ulcer CM Notes Start: 10/13/23 09:39 Freq: Status: Active Protocol: Activity Type Activity Date Activity User E-sign Co-sign Detail Recorded Client Recorded Date Recorded By Document 10/13/23 09:48 [facility] wound center 10/13/23 09:53 [facility] Document 10/20/23 09:09 [facility] 1606-1-10 10/20/23 09:13 [facility] Document 10/27/23 09:[place] [id number] 10/27/23 09:54 DS 10/13/23 10/20/23 10/27/23 09:48 09:09 09:53 Wound Center Nurse 2 1. R lower arm anterior -Time 09:48 09:10 09:53 -Correct Patient Yes Yes No -Correct Side, Site, Position Yes Yes No -Correct Procedure Yes Yes No -Procedure Performed Yes Yes No -Type of Procedure Debridement Debridement -Clinical Debridement Subcutaneous Subcutaneous -Tissue Removed Subcutaneous Subcutaneous -Post Debridement (cm) - Length 2.5 1.7 0 -Post Debridement (cm) - Width 1.8 0.3 0 -Post Debridement (cm) - Depth 0.1 0.2 0 -Total Square (Post) (cm) 4.50 0.51 0 -Area of Debridement (cm) - Length 1.7 0 -Area of Debridement (cm) - Width 0.3 0 -Total Square (Area) (cm) 0.51 0 -Tunneling No No -Undermining/Tunneling No No -Circular Undermining No No -Wound/Ulcer Outcome Not Healed Not Healed Healed- Epithelialized -Ulcer Cleansing Rinsed/ Rinsed/ Irrigated with Irrigated with Saline Saline -Foul Odor after Cleansing No No -Bioengineered Tissue No No -Bleeding Controlled with Pressure Pressure -Treatment Response Procedure Procedure Tolerated Well Tolerated Well -Debridement - Subq, 1st 20sq cm Yes Yes Pain Scale: 0-10 Numeric Is Patient Pain Free? Yes Yes Yes - Nurse 3 - General Ulcer D/C NN Start: 10/13/23 09:39 Freq: Status: Active Protocol: Activity Type Activity Date Activity User E-sign Co-sign Detail Recorded Client Recorded Date Recorded By Document 10/13/23 11:04 wound center 10/13/23 11:05 RB Document 10/20/23 09:14 [facility] 1606-1-10 10/20/23 09:19 [facility] Document 10/27/23 09:54 [place] [id number] 10/27/23 09:55 DS 10/13/23 10/20/23 10/27/23 11:04 09:14 09:54 Wound Care Center Nurse 3 1. R lower arm anterior -Ulcer Cleansing Rinsed/ Rinsed/ Rinsed/ Irrigated with Irrigated with Irrigated with Saline Saline Saline -Foul Odor after Cleansing No -Primary Dressing Applied Fibracol Plus NonAdherent 4x4,NonAdherent Contact Layer Contact Layer -Other Dressing fibracol -Primary Dressing Covered/Secured with Dry Gauze,Dry Dry Gauze & Dry Gauze & Gauze & Roll Roll Gauze, Roll Gauze Gauze,Secured Secured with with Tape Tape -Fibracol Plus 4x4 1 Treatment Response Procedure Procedure Tolerated Well Tolerated Well Pain Scale: 0-10 Numeric Is Patient Pain Free? Yes Yes Yes Teaching: Wound Center Dressing Your Wound -Person Taught Patient -Teaching Method Discussion, Demonstration -Response to teaching Verbalize understanding WC - Visit Discharge Discharge Condition Stable Stable Stable Ambulatory Status Ambulatory Ambulatory Ambulatory Transportation Private Auto Private Auto Private Auto Medication Reconcilliation completed & No Yes provided to patient/care provider Clinical Summary of Care Provided Yes Yes Assessment/Plan Assessment/Plan (1) Laceration of left forearm: CODE(S): S51.812A - Laceration without foreign body of left forearm, initial encounter QUALIFIERS: Encounter type: initial encounter Qualified Code(s): S51.812A - Laceration without foreign body of left forearm, initial encounter PLAN: Discharge from the wound center follow-up as needed (2) Nonhealing nonsurgical wound: CODE(S): T14.8XXA - Other injury of unspecified body region, initial encounter
== END 2023-10-28 15:22 | disposition home or self-care (01) ==
LOC: WC 09:30
PROVIDERS: PCP Family Medicine Geriatric Medicine; Referring Provider Family Medicine Geriatric Medicine; Visit Provider Nurse Practitioner
DX: S51.812A Laceration without foreign body of left forearm, initial encounter (principal); W50.0XXA Accidental hit or strike by another person, initial encounter; M54.50 Low back pain, unspecified; G89.29 Other chronic pain; N40.1 Benign prostatic hyperplasia with lower urinary tract symptoms; J45.909 Unspecified asthma, uncomplicated; I10 Essential (primary) hypertension; K21.9 Gastro-esophageal reflux disease without esophagitis; E78.5 Hyperlipidemia, unspecified; F32.A Depression, unspecified; Z79.899 Other long term (current) drug therapy
CPT/HCPCS: 11042; 99212; 99213; G0463

== ENCOUNTER → 2023-12-27 | Outpatient (CLI) | payer MEDICARE, SELFPAY ==
[2023-12-27 13:44] LABS: M R Staph aureus DNA By PCR Negative (Negative); Specimen Processing Control PASS; Staph aureus DNA By PCR NEGATIVE (Negative)
[2023-12-27 13:45] LABS: Probe Check PASS
== END | disposition home or self-care (01) ==
LOC: POLAB3 10:25
PROVIDERS: PCP Family Medicine Geriatric Medicine; Visit Provider Family Medicine Geriatric Medicine
DX: L03.113 Cellulitis of right upper limb (principal); B95.62 Methicillin resistant Staphylococcus aureus infection as the cause of diseases classified elsewhere
CPT/HCPCS: 87070; 87075; 87205; 87640

== ENCOUNTER 2024-01-17 09:00 | Outpatient (RCR) | payer MEDICARE, SELFPAY ==
[2024-01-03 14:10] VITALS: BP 124/69; PULSE 98; RESP 18; TEMP 35.9; BMI 28.8
--- NOTE | 2024-01-03 15:06 | PCM.WC.HP ---
History of Present Illness Date of Service: 01/03/24 Chief Complaint: Left forearm skin tear History of Wound: 78-year-old male fell and bumped his right forearm 8 days ago. He developed a skin tear. He went to see his PCP Dr. García who gave him a shot of antibiotics. He has been covering this wound with Adaptic and gauze. He states that it has started to heal well over the past couple days. He had another skin tear in the past few months so he cared for this wound the way he cared for the previous wound. He denies any fever, chills, nausea, vomiting. Progress of Wound: Right forearm skin tear that is healing well. The wound is a cluster, with pink granulation tissue present. [facility] Medical History (Reviewed 01/04/24 @ 16:57 by Rosario Saleem SAFETY GROOVING MACHINE OPERATOR, SAFETY GROOVING MACHINE OPERATOR-C) Anxiety Lower urinary tract symptoms (LUTS) Constipation Chronic low back pain BPH (benign prostatic hyperplasia) Hyperlipidemia Depression SOB (shortness of breath) Asthma COVID-19 Hypertension GERD (gastroesophageal reflux disease) Home Medications ?Medication ?Instructions ?Recorded ?Last Taken ?Type polyethylene glycol 3350 17 gram 17 g PO DAILY PRN Constipation 04/19/13 04/19/13 07:00 History oral powder packet lisinopril 5 mg tablet 5 mg PO DAILY 08/28/20 Unknown History tamsulosin 0.4 mg capsule 0.4 mg PO QHS 06/16/21 Unknown History albuterol sulfate 90 mcg/actuation 2 inh inhalation Q6H PRN shortness 05/06/23 Unknown History breath activated powder inhaler of breath mometasone-formoterol HFA 200 2 puff inhalation BID 05/06/23 Unknown History mcg-5 mcg/actuation aerosol inhaler (Dulera) montelukast 10 mg tablet 10 mg PO DAILY 05/06/23 Unknown History nortriptyline 50 mg capsule 50 mg PO BID 06/02/23 Unknown History omeprazole 10 mg capsule,delayed 40 mg PO DAILY 06/02/23 Unknown History release Allergy/AdvReac Type Severity Reaction Status Date / Time No Known Allergies Allergy Verified 01/03/24 14:15 Family History (Reviewed 01/04/24 @ 16:57 by Rosario Saleem SAFETY GROOVING MACHINE OPERATOR, SAFETY GROOVING MACHINE OPERATOR-C) Mother Depression CVA (cerebral vascular accident) Anxiety Hypertension Father Pancreatic cancer Surgical History (Reviewed 01/04/24 @ 16:57 by Rosario Saleem SAFETY GROOVING MACHINE OPERATOR, SAFETY GROOVING MACHINE OPERATOR-C) Hx of cataract extraction Social History (Reviewed 01/04/24 @ 16:57 by Rosario Saleem SAFETY GROOVING MACHINE OPERATOR, SAFETY GROOVING MACHINE OPERATOR-C) Smoking Status: Former smoker alcohol intake: never substance use type: does not use ROS Constitutional Constitutional: Reports systems reviewed and no addt'l complaints, except as documented Eyes Eyes: Reports systems reviewed and no addt'l complaints, except as documented ENT HEENT: Reports systems reviewed and no addt'l complaints, except as documented Cardiovascular Cardiovascular: Denies chest pain or dyspnea Respiratory/Chest Respiratory/Chest: Reports none Gastrointestinal Gastrointestinal: Reports systems reviewed and no addt'l complaints, except as documented Genitourinary Genitourinary: Reports systems reviewed and no addt'l complaints, except as documented Musculoskeletal Musculoskeletal: Reports systems reviewed and no addt'l complaints, except as documented Integumentary Integumentary: Reports wounds Neurologic Neurologic: Reports systems reviewed and no addt'l complaints, except as documented Psychiatric Psychiatric: Reports systems reviewed and no addt'l complaints, except as documented Vital Signs Vital Signs Vital Signs: 01/03/24 14:10 Temperature 96.6 F L Temperature Source Temporal Pulse Rate 98 Respiratory Rate 18 Blood Pressure 124/69 H Blood Pressure Mean 87 Blood Pressure Source Monitor Weight Weight: 189 lb 10.778 oz Body Mass Index (BMI) 28.8 Physical Exam Const alert, oriented x3 and no apparent distress General Appearance: cooperative and well kempt HEENT normocephalic Head and Scalp: atraumatic Eyes General Eye: normal appearance of both eyes Neck full ROM Resp normal respiratory effort, normal air movement and clear to auscultation bilaterally Effort and Inspection: able to speak in complete sentences Cardio regular rate and regular rhythm GI soft to palpation and non-tender Extremity full ROM and normal capillary refill Peripheral Pulses: Yes pulses 2+ throughout Skin Wound Narrative: Right forearm skin tear/wound cluster. Base is beefy pink, superficial. Neuro oriented x3 Psych mental status grossly normal, thought process normal, cooperative and affect normal Debridement Note Debridement Note Wound debrided: forearm Laterality: Right Wound Grade/Stage: Stage II Type of Debridement: Excisional debridement Anesthesia Used: 5% Lidocaine Gel Depth: Down to and including healthy tissue and in the subcutaneous layer Percentage of wound debrided: 100 Instrument Used: 3mm curette Tissue Removed: Non viable tissue and slough Severity: Limited To Skin Breakdown Amount of bleeding with debridement: Mild Bleeding Controlled with: Pressure and Compression and gauze Patient tolerated procedure: Patient tolerated procedure well Post-Debridement Measurements and Additional Note: Post-Debridement Measurements/Treatment CRUZ - Nurse 1 - General Ulcer Assessment Start: 01/03/24 14:00 Freq: Status: Active Protocol: GILLIAN Activity Type Activity Date Activity User E-sign Co-sign Detail Recorded Client Recorded Date Recorded By Document 01/03/24 14:10 DL [email or web address] 01/03/24 14:13 DL 01/03/24 14:10 WC - Today's Visit Information Type of service Initial Visit Arrival Mode Ambulatory Transfer Assistance None Patient Identification Verified (Name & Yes ) Patient Requires Transmission-Based No Precautions Height and Weight Height 5 ft 8 in Weight 189 lb 10.778 oz Weight in Pounds 189.7 lbs Body Mass Index (BMI) 28.8 BMI Classification Overweight BSA - Baudilio 2.00 Vital Signs Temperature (97.8 F-99.1 F) 96.6 F L Temperature Source Temporal Pulse Rate (60-100) 98 Pulse Location Monitor Respiratory Rate (12-18) 18 Respiratory rate source Observation Blood Pressure (90/60-120/80) 124/69 H Blood Pressure Mean 87 Source Monitor Pain Scale: 0-10 Numeric Is Patient Pain Free? Yes Communication Assessment Preferred language Citizen Of The [place] Able to Read Yes Able to Write Yes Right Hearing Abillity Normal Left Hearing Abillity Normal Teaching Assessment Preferences Verbal,Written Barriers to Learning None Readiness To Learn Good Willingness to Engage in Self Management Med Activies Readiness to Engage in Self Management Med Activities Anxiety Level Calm Cooperation Cooperative Perception Coherent Interest in Health Problem Asks Questions Education Importance Acknowledges Need Does Patient Smoke tobacco or other No substances Smoking Status Former smoker Is Patient Diabetic No Functional Assessment Recent Decline in Ability to Perform Denies Any Declines 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 CRUZ - Nurse 1 - General Ulcer Measurement Start: 01/03/24 14:00 Freq: Status: Active Protocol: Activity Type Activity Date Activity User E-sign Co-sign Detail Recorded Client Recorded Date Recorded By Document 01/03/24 14:10 DL [email or web address] 01/03/24 14:13 DL 01/03/24 14:10 Wound Center Nurse 1 #2 R Forearm -Current Size (cm) - Length 0.5 -Current Size (cm) - Width 0.5 -Current Size (cm) - Depth 0.1 -Total Square Cm 0.25 -Photo Taken Yes -Classification - Thickness Partial Thickness -Exudate Amt None Present -Wound Margin Distinct, Outline Attached -Granulation Amt Small (1-33%) -Granulation Quality Pale,[place] -Necrosis Amt Small (1-33%) -Necrotic Tissue Type Adherent Slough -Structure Exposed N/A -Texture (Edie-wound Skin Appearance) Scarring -Moisture (Edie-wound Skin Appearance) No Abnormality -Color (Edie-wound Skin Appearance) No Abnormality -Temperature (Edie-wound Skin No Abnormality Appearance) (Pt Warm) -Tenderness on Palpation (Edie-wound No Skin Appearance) -Ulcer Cleansing Soap and Water -Foul Odor after Cleansing No -Anesthetic Used 5% Lidocaine Gel WC - Nurse 2 - General Ulcer CM Notes Start: 01/03/24 14:00 Freq: Status: Active Protocol: Activity Type Activity Date Activity User E-sign Co-sign Detail Recorded Client Recorded Date Recorded By Document 01/03/24 14:27 JF 0000 01/03/24 14:31 01/03/24 14:27 Wound Center Nurse 2 -Time 14:30 -Correct Patient Yes -Correct Side, Site, Position Yes -Correct Procedure Yes -Procedure Performed Yes -Type of Procedure Debridement -Clinical Debridement Subcutaneous -Tissue Removed Subcutaneous -Post Debridement (cm) - Length 3.5 -Post Debridement (cm) - Width 0.8 -Post Debridement (cm) - Depth 0.1 -Total Square (Post) (cm) 2.80 -Area of Debridement (cm) - Length 3.5 -Area of Debridement (cm) - Width 0.8 -Total Square (Area) (cm) 2.80 -Tunneling No -Undermining/Tunneling No -Circular Undermining No -Wound/Ulcer Outcome Not Healed -Ulcer Cleansing Rinsed/ Irrigated with Saline -Foul Odor after Cleansing No -Bioengineered Tissue No -Bleeding Controlled with Pressure -Treatment Response Procedure Tolerated Well -Offloading No -Debridement - Subq, 1st 20sq cm Yes Pain Scale: 0-10 Numeric Is Patient Pain Free? Yes WC - Nurse 3 - General Ulcer D/C NN Start: 01/03/24 14:00 Freq: Status: Active Protocol: Activity Type Activity Date Activity User E-sign Co-sign Detail Recorded Client Recorded Date Recorded By Document 01/03/24 14:44 KW [email or web address] 01/03/24 14:45 KW 01/03/24 14:44 Wound Care Center Nurse 3 #2 R Forearm -Primary Dressing Applied C Hydrogel ($), Coban: 2 Layer System, NonAdherent Contact Layer -Primary Dressing Covered/Secured with Dry Gauze -Coban: 2 Layer System 1 Pain Scale: 0-10 Numeric Is Patient Pain Free? Yes Charges/Coding Visit Charges Office Visits / Consults: [id number] OV L3 Est 20min (25 modifier) Procedures Integumentary [id number]-113xx: [id number] Angella subq tissue 20 sq cm/< Assessment/Plan Assessment/Plan (1) Wound, open, arm, forearm: CODE(S): S51.809A - Unspecified open wound of unspecified forearm, initial encounter QUALIFIERS: Encounter type: initial encounter Laterality: right Qualified Code(s): S51.801A - Unspecified open wound of right forearm, initial encounter (2) Skin tear of forearm without complication: CODE(S): S51.819A - Laceration without foreign body of unspecified forearm, initial encounter QUALIFIERS: Encounter type: initial encounter Laterality: right Qualified Code(s): S51.811A - Laceration without foreign body of right forearm, initial encounter PLAN: Plan Patient evaluated at the wound center today. Wound care?right forearm apply collagen hydrogel covered with Adaptic and topped with gauze. Hold in place with Coban. Wash wound with soap and water at the time of dressing change. Keep arm elevated to help prevent swelling. Follow-up in 1 week.
--- NOTE | 2024-01-04 09:25 | WC ---
PHOTO 01/03/24 RIGHT FOREARM
[2024-01-10 08:57] VITALS: BP 120/71; PULSE 87; RESP 16; TEMP 36; BMI 28.8
--- NOTE | 2024-01-10 13:15 | PCM.WC.PN ---
History of Present Illness Date of Service: 01/10/24 Chief Complaint: Left forearm skin tear History of Wound: 78-year-old male fell and bumped his right forearm 8 days ago. He developed a skin tear. He went to see his PCP Dr. García who gave him a shot of antibiotics. He has been covering this wound with Adaptic and gauze. He states that it has started to heal well over the past couple days. He had another skin tear in the past few months so he cared for this wound the way he cared for the previous wound. He denies any fever, chills, nausea, vomiting. Progress of Wound: Right forearm skin tear that is healing well. The wound is a cluster, with pink granulation tissue present. It is smaller this week. He states that it has been dry and he has been having issues with the dressing sticking due to it being so dry. Objective Data Objective Data Vital Signs: Vital Signs Temp Pulse Resp BP O2 Del Method 96.8 F L 87 16 120/71 Room Air 01/10/24 08:57 01/10/24 08:57 01/10/24 08:57 01/10/24 08:57 01/10/24 08:57 Oxygen Delivery Method Room Air Weight: 189 lb 10.778 oz Body Mass Index (BMI) 28.8 Charges/Coding Procedures Integumentary 111xxx-113xx: [id number] Angella subq tissue 20 sq cm/< Debridement Note Debridement Note Wound debrided: forearm Laterality: Right Wound Grade/Stage: Stage II Type of Debridement: Excisional debridement Anesthesia Used: 5% Lidocaine Gel Depth: Down to and including healthy tissue and in the subcutaneous layer Percentage of wound debrided: 100 Instrument Used: 3mm curette Tissue Removed: Non viable tissue and slough Severity: Limited To Skin Breakdown Amount of bleeding with debridement: Mild Bleeding Controlled with: Pressure and Compression and gauze Patient tolerated procedure: Patient tolerated procedure well Post-Debridement Measurements and Additional Note: Post-Debridement Measurements/Treatment WC - Nurse 1 - General Ulcer Assessment Start: 01/03/24 14:00 Freq: Status: Active Protocol: GILLIAN Activity Type Activity Date Activity User E-sign Co-sign Detail Recorded Client Recorded Date Recorded By Document 01/03/24 14:10 DL 10.10.25.7 01/03/24 14:13 DL Document 01/10/24 08:57 [facility] 10.10.25.7 01/10/24 09:03 BMF 01/03/24 01/10/24 14:10 08:57 WC - Today's Visit Information Type of service Initial Visit Follow-up Visit (Physician/CHEMISTRY TECHNICIAN ) Arrival Mode Ambulatory Ambulatory Transfer Assistance None None Patient Identification Verified (Name & Yes Yes ) Patient Requires Transmission-Based No No Precautions Height and Weight Height 5 ft 8 in Weight 189 lb 10.778 oz Weight in Pounds 189.7 lbs Body Mass Index (BMI) 28.8 28.8 BMI Classification Overweight Overweight BSA - Baudilio 2.00 Vital Signs Temperature (97.8 F-99.1 F) 96.6 F L 96.8 F L Temperature Source Temporal Temporal Pulse Rate (60-100) 98 87 Pulse Location Monitor Monitor Respiratory Rate (12-18) 18 16 Respiratory rate source Observation Observation Oxygen Delivery Method Room Air Blood Pressure (90/60-120/80) 124/69 H 120/71 Blood Pressure Mean (mm Hg) 87 87 Source Monitor Monitor Position Sitting Blood Pressure Location Left Arm History Since Last Visit- (Skip if this is Patient's initial visit) Have you changed medications since your No last visit? Any new allergies or adverse reactions No Had a fall/change in ADL's that may No increase risk of falls Signs or symptoms of abuse and/or No neglect since last visit Have you been in the hospital since your No last visit? Has dressing in place as prescribed Yes Has compression in place as prescribed N/A Has offloadiing in place as prescribed N/A Experienced any changes in pain level or No management Left Footwear Regular Shoe Right Footwear Regular Shoe Pain Scale: 0-10 Numeric Is Patient Pain Free? Yes Yes Communication Assessment Preferred language Yoruba Able to Read Yes Able to Write Yes Right Hearing Abillity Normal Left Hearing Abillity Normal Teaching Assessment Preferences Verbal,Written Barriers to Learning None Readiness To Learn Good Willingness to Engage in Self Management Med Activies Readiness to Engage in Self Management Med Activities Anxiety Level Calm Cooperation Cooperative Perception Coherent Interest in Health Problem Asks Questions Education Importance Acknowledges Need Does Patient Smoke tobacco or other No substances Smoking Status Former smoker Is Patient Diabetic No Functional Assessment Recent Decline in Ability to Perform Denies Any Declines Culture/Mandaen/Rural Sociologist Cultural/Mandaen Needs that may affect No Treatment Plan Would you allow our hospital system support administrator to No meet you for the purpose of spiritual/ emotional support? WC - Nurse 1 - General Ulcer Measurement Start: 01/03/24 14:00 Freq: Status: Active Protocol: Activity Type Activity Date Activity User E-sign Co-sign Detail Recorded Client Recorded Date Recorded By Document 01/03/24 14:10 DL 10..25.7 01/03/24 14:13 DL Document 01/10/24 08:57 BMF ..25.7 01/10/24 09:03 BMF 01/03/24 01/10/24 14:10 08:57 Wound Center Nurse 1 #2 R Forearm -Combined with other wound No -Current Size (cm) - Length 0.5 0.1 -Current Size (cm) - Width 0.5 0.1 -Current Size (cm) - Depth 0.1 0.1 -Total Square Cm 0.25 0.01 -Date of Last Picture (Recall this 01/10/24 field) -Photo Taken Yes Yes -Epithelialization Large 67-100% -Tunneling No -Undermining/Tunneling No -Circular Undermining No -Classification - Thickness Partial Thickness -Exudate Amt None Present Small -Exudate Type Serosanguineous -Wound Margin Distinct, Outline Attached -Granulation Amt Small (1-33%) -Granulation Quality Pale,[place] -Necrosis Amt Small (1-33%) -Necrotic Tissue Type Adherent Slough -Structure Exposed N/A -Texture (Edie-wound Skin Appearance) Scarring Assessed, Scarring -Moisture (Edie-wound Skin Appearance) No Abnormality Assessed,Dry/ Scaly -Color (Edie-wound Skin Appearance) No Abnormality Assessed -Temperature (Edie-wound Skin No Abnormality No Abnormality Appearance) (Pt Warm) (Pt Warm) -Tenderness on Palpation (Edie-wound No No Skin Appearance) -Ulcer Cleansing Soap and Water Rinsed/ Irrigated with Saline -Foul Odor after Cleansing No No -Anesthetic Used 5% Lidocaine 5% Lidocaine Gel Gel WC - Nurse 2 - General Ulcer CM Notes Start: 01/03/24 14:00 Freq: Status: Active Protocol: Activity Type Activity Date Activity User E-sign Co-sign Detail Recorded Client Recorded Date Recorded By Document 01/03/24 14:27 JF 0000 01/03/24 14:31 JF Document 01/10/24 09:07 JF [id number] 01/10/24 09:12 JF 01/03/24 01/10/24 14:27 09:07 Wound Center Nurse 2 #2 R Forearm -Time 14:30 09:10 -Correct Patient Yes Yes -Correct Side, Site, Position Yes Yes -Correct Procedure Yes Yes -Procedure Performed Yes Yes -Type of Procedure Debridement Debridement -Clinical Debridement Subcutaneous Subcutaneous -Tissue Removed Subcutaneous Subcutaneous -Post Debridement (cm) - Length 3.5 0.6 -Post Debridement (cm) - Width 0.8 1.0 -Post Debridement (cm) - Depth 0.1 0.1 -Total Square (Post) (cm) 2.80 0.60 -Area of Debridement (cm) - Length 3.5 0.6 -Area of Debridement (cm) - Width 0.8 1.0 -Total Square (Area) (cm) 2.80 0.60 -Tunneling No No -Undermining/Tunneling No No -Circular Undermining No No -Wound/Ulcer Outcome Not Healed Not Healed -Ulcer Cleansing Rinsed/ Rinsed/ Irrigated with Irrigated with Saline Saline -Foul Odor after Cleansing No No -Bioengineered Tissue No No -Bleeding Controlled with Pressure Pressure -Treatment Response Procedure Procedure Tolerated Well Tolerated Well -Offloading No No -Debridement - Subq, 1st 20sq cm Yes Yes Pain Scale: 0-10 Numeric Is Patient Pain Free? Yes Yes - Nurse 3 - General Ulcer D/C NN Start: 01/03/24 14:00 Freq: Status: Active Protocol: Activity Type Activity Date Activity User E-sign Co-sign Detail Recorded Client Recorded Date Recorded By Document 01/03/24 14:44 KW [facility] 01/03/24 14:45 KW Document 01/10/24 09:18 KW ][ 01/10/24 09:19 KW 01/03/24 01/10/24 14:44 09:18 Wound Care Center Nurse 3 #2 R Forearm -Primary Dressing Applied C Hydrogel ($), Mepilex Border, Coban: 2 Layer NonAdherent System, Contact Layer NonAdherent Contact Layer -Other Dressing hydrogel -Primary Dressing Covered/Secured with Dry Gauze -Coban: 2 Layer System 1 -Mepilex Border 1 Pain Scale: 0-10 Numeric Is Patient Pain Free? Yes Yes - Visit Discharge Discharge Condition Stable Ambulatory Status Ambulatory Transportation Private Auto Medication Reconcilliation completed & No provided to patient/care provider Clinical Summary of Care Provided Yes Assessment/Plan Assessment/Plan (1) Wound, open, arm, forearm: CODE(S): S51.809A - Unspecified open wound of unspecified forearm, initial encounter QUALIFIERS: Encounter type: initial encounter Laterality: right Qualified Code(s): S51.801A - Unspecified open wound of right forearm, initial encounter (2) Skin tear of forearm without complication: CODE(S): S51.819A - Laceration without foreign body of unspecified forearm, initial encounter QUALIFIERS: Encounter type: initial encounter Laterality: right Qualified Code(s): S51.811A - Laceration without foreign body of right forearm, initial encounter PLAN: Plan Patient evaluated at the wound center today. Wound care?right forearm apply collagen hydrogel covered with Adaptic and topped [place] SAP/silicone border dressing every other day. Wash wound with soap and water at the time of dressing change. Keep arm elevated to help prevent swelling. Follow-up in 1 week.
[2024-01-17 09:06] VITALS: BP 112/68; PULSE 97; RESP 18; TEMP 35.7; BMI 28.8
--- NOTE | 2024-01-17 12:39 | PCM.WC.PN ---
History of Present Illness Date of Service: 01/17/24 Chief Complaint: Left forearm skin tear History of Wound: 78-year-old male fell and bumped his right forearm 8 days ago. He developed a skin tear. He went to see his PCP Dr. García who gave him a shot of antibiotics. He has been covering this wound with Adaptic and gauze. He states that it has started to heal well over the past couple days. He had another skin tear in the past few months so he cared for this wound the way he cared for the previous wound. He denies any fever, chills, nausea, vomiting. Progress of Wound: Right forearm skin tear that is healed today. Objective Data Objective Data Vital Signs: Vital Signs Temp Pulse Resp BP O2 Del Method 96.2 F L 97 18 112/68 Room Air 01/17/24 09:06 01/17/24 09:06 01/17/24 09:06 01/17/24 09:06 01/17/24 09:06 Oxygen Delivery Method Room Air Weight: 189 lb 10.778 oz Body Mass Index (BMI) 28.8 Charges/Coding Visit Charges Office Visits / Consults: 74746 OV L3 Est 20min Physical Exam Const alert, oriented x3 and no apparent distress General Appearance: cooperative and well kempt HEENT normocephalic Head and Scalp: atraumatic Eyes General Eye: normal appearance of both eyes Neck full ROM Resp normal respiratory effort, normal air movement and clear to auscultation bilaterally Effort and Inspection: able to speak in complete sentences Cardio regular rate and regular rhythm GI soft to palpation and non-tender Extremity full ROM and normal capillary refill Peripheral Pulses: Yes pulses 2+ throughout Skin Wound Narrative: Right forearm skin tear/wound cluster is healed today. There is fragile epithelialization present . Neuro oriented x3 Psych mental status grossly normal, thought process normal, cooperative and affect normal Debridement Note Debridement Note No debridement was completed: No debridement was completed today Post-Debridement Measurements and Additional Note: Post-Debridement Measurements/Treatment CRUZ - Nurse 1 - General Ulcer Assessment Start: 01/03/24 14:00 Freq: Status: Active Protocol: GILLIAN Activity Type Activity Date Activity User E-sign Co-sign Detail Recorded Client Recorded Date Recorded By Document 01/03/24 14:10 DL 10.10.25.7 01/03/24 14:13 DL Document 01/10/24 08:57 BMF 10.10.25.7 01/10/24 09:03 BMF Document 01/17/24 09:06 DL [id number] 01/17/24 09:08 DL 01/03/24 01/10/24 01/17/24 14:10 08:57 09:06 WC - Today's Visit Information Type of service Initial Visit Follow-up Visit Follow-up Visit (Physician/INDIGO MIXER (Physician/INDIGO MIXER ) ) Arrival Mode Ambulatory Ambulatory Ambulatory Transfer Assistance None None Patient Identification Verified (Name & Yes Yes Yes ) Patient Requires Transmission-Based No No Precautions Height and Weight Height 5 ft 8 in Weight 189 lb 10.778 oz Weight in Pounds 189.7 lbs Body Mass Index (BMI) 28.8 28.8 28.8 BMI Classification Overweight Overweight Overweight BSA - Baudilio 2.00 Vital Signs Temperature (97.8 F-99.1 F) 96.6 F L 96.8 F L 96.2 F L Temperature Source Temporal Temporal Temporal Pulse Rate (60-100) 98 87 97 Pulse Location Monitor Monitor Monitor Respiratory Rate (12-18) 18 16 18 Respiratory rate source Observation Observation Ausculation Oxygen Delivery Method Room Air Room Air Blood Pressure (90/60-120/80) 124/69 H 120/71 112/68 Blood Pressure Mean (mm Hg) 87 87 82 Source Monitor Monitor Monitor Position Sitting Sitting Blood Pressure Location Left Arm Left Arm History Since Last Visit- (Skip if this is Patient's initial visit) Have you changed medications since your No No last visit? Any new allergies or adverse reactions No No Had a fall/change in ADL's that may No No increase risk of falls Signs or symptoms of abuse and/or No No neglect since last visit Have you been in the hospital since your No No last visit? Has dressing in place as prescribed Yes Yes Has compression in place as prescribed N/A N/A Has offloadiing in place as prescribed N/A N/A Experienced any changes in pain level or No No management Left Footwear Regular Shoe Regular Shoe Right Footwear Regular Shoe Regular Shoe Pain Scale: 0-10 Numeric Is Patient Pain Free? Yes Yes Yes Communication Assessment Preferred language Turkmen Able to Read Yes Able to Write Yes Right Hearing Abillity Normal Left Hearing Abillity Normal Teaching Assessment Preferences Verbal,Written Barriers to Learning None Readiness To Learn Good Willingness to Engage in Self Management Med Activies Readiness to Engage in Self Management Med Activities Anxiety Level Calm Cooperation Cooperative Perception Coherent Interest in Health Problem Asks Questions Education Importance Acknowledges Need Does Patient Smoke tobacco or other No substances Smoking Status Former smoker Is Patient Diabetic No Functional Assessment Recent Decline in Ability to Perform Denies Any Declines Culture/Roman Catholic/Eng[employer] Cultural/Roman Catholic Needs that may affect No Treatment Plan Would you allow our hospital registered nurse nursery to No meet you for the purpose of spiritual/ emotional support? WC - Nurse 1 - General Ulcer Measurement Start: 01/03/24 14:00 Freq: Status: Active Protocol: Activity Type Activity Date Activity User E-sign Co-sign Detail Recorded Client Recorded Date Recorded By Document 01/03/24 14:10 DL ..25.7 01/03/24 14:13 DL Document 01/10/24 08:57 BMF 10..25.7 01/10/24 09:03 BMF Document 01/17/24 09:06 DL [id number] 01/17/24 09:08 DL 01/03/24 01/10/24 01/17/24 14:10 08:57 09:06 Wound Center Nurse 1 #2 R Forearm -Combined with other wound No -Current Size (cm) - Length 0.5 0.1 0.1 -Current Size (cm) - Width 0.5 0.1 0.1 -Current Size (cm) - Depth 0.1 0.1 0.1 -Total Square Cm 0.25 0.01 0.01 -Date of Last Picture (Recall this 01/10/24 field) -Photo Taken Yes Yes -Epithelialization Large 67-100% -Tunneling No -Undermining/Tunneling No -Circular Undermining No -Classification - Thickness Partial Thickness -Exudate Amt None Present Small None Present -Exudate Type Serosanguineous -Wound Margin Distinct, Outline Attached -Granulation Amt Small (1-33%) -Granulation Quality Pale,[place] -Necrosis Amt Small (1-33%) None Present (0 %) -Necrotic Tissue Type Adherent Slough -Structure Exposed N/A -Texture (Edie-wound Skin Appearance) Scarring Assessed, Assessed Scarring -Moisture (Edie-wound Skin Appearance) No Abnormality Assessed,Dry/ No Abnormality, Scaly Assessed -Color (Edie-wound Skin Appearance) No Abnormality Assessed Assessed -Temperature (Edie-wound Skin No Abnormality No Abnormality No Abnormality Appearance) (Pt Warm) (Pt Warm) (Pt Warm) -Tenderness on Palpation (Edie-wound No No No Skin Appearance) -Ulcer Cleansing Soap and Water Rinsed/ Rinsed/ Irrigated with Irrigated with Saline Saline -Foul Odor after Cleansing No No -Anesthetic Used 5% Lidocaine 5% Lidocaine Gel Gel - Nurse 2 - General Ulcer CM Notes Start: 01/03/24 14:00 Freq: Status: Active Protocol: Activity Type Activity Date Activity User E-sign Co-sign Detail Recorded Client Recorded Date Recorded By Document 01/03/24 14:27 0000 01/03/24 14:31 Document 01/10/24 09:07 [id number] [id number] 01/10/24 09:12 Document 01/17/24 09:19 DL [id number] 01/17/24 09:22 DL 01/03/24 01/10/24 01/17/24 14:27 09:07 09:19 Wound Center Nurse 2 #2 R Forearm -Time 14:30 09:10 09:21 -Correct Patient Yes Yes No -Correct Side, Site, Position Yes Yes No -Correct Procedure Yes Yes No -Procedure Performed Yes Yes No -Type of Procedure Debridement Debridement -Clinical Debridement Subcutaneous Subcutaneous -Tissue Removed Subcutaneous Subcutaneous -Post Debridement (cm) - Length 3.5 0.6 0 -Post Debridement (cm) - Width 0.8 1.0 0 -Post Debridement (cm) - Depth 0.1 0.1 0 -Total Square (Post) (cm) 2.80 0.60 0 -Area of Debridement (cm) - Length 3.5 0.6 0 -Area of Debridement (cm) - Width 0.8 1.0 0 -Total Square (Area) (cm) 2.80 0.60 0 -Tunneling No No -Undermining/Tunneling No No -Circular Undermining No No -Wound/Ulcer Outcome Not Healed Not Healed Healed- Epithelialized -Ulcer Cleansing Rinsed/ Rinsed/ Irrigated with Irrigated with Saline Saline -Foul Odor after Cleansing No No -Bioengineered Tissue No No -Bleeding Controlled with Pressure Pressure -Treatment Response Procedure Procedure Tolerated Well Tolerated Well -Offloading No No -Debridement - Subq, 1st 20sq cm Yes Yes Pain Scale: 0-10 Numeric Is Patient Pain Free? Yes Yes Yes - Nurse 3 - General Ulcer D/C NN Start: 01/03/24 14:00 Freq: Status: Active Protocol: Activity Type Activity Date Activity User E-sign Co-sign Detail Recorded Client Recorded Date Recorded By Document 01/03/24 14:44 KW [email or web address] 01/03/24 14:45 KW Document 01/10/24 09:18 KW ][ 01/10/24 09:19 KW Document 01/17/24 09:23 DL [id number] 01/17/24 09:23 DL 01/03/24 01/10/24 01/17/24 14:44 09:18 09:23 Wound Care Center Nurse 3 #2 R Forearm -Primary Dressing Applied C Hydrogel ($), Mepilex Border, [place]: 2 Layer NonAdherent System, Contact Layer NonAdherent Contact Layer -Other Dressing hydrogel -Primary Dressing Covered/Secured with Dry Gauze -Coban: 2 Layer System 1 -Mepilex Border 1 Pain Scale: 0-10 Numeric Is Patient Pain Free? Yes Yes Yes - Visit Discharge Discharge Condition Stable Stable Ambulatory Status Ambulatory Transportation Private Auto Private Auto Medication Reconcilliation completed & No Yes provided to patient/care provider Clinical Summary of Care Provided Yes Yes Assessment/Plan Assessment/Plan (1) Wound, open, arm, forearm: CODE(S): S51.809A - Unspecified open wound of unspecified forearm, initial encounter QUALIFIERS: Encounter type: initial encounter Laterality: right Qualified Code(s): S51.801A - Unspecified open wound of right forearm, initial encounter (2) Skin tear of forearm without complication: CODE(S): S51.819A - Laceration without foreign body of unspecified forearm, initial encounter QUALIFIERS: Encounter type: initial encounter Laterality: right Qualified Code(s): S51.811A - Laceration without foreign body of right forearm, initial encounter PLAN: Plan Patient evaluated at the wound center today. His right forearm wound cluster is healed today with fragile epithelial tissue present. Wound care?right forearm keep covered with dried gauze for a few days to help protect the fragile epithelialization. Once it has become more stable, he is to gently massage lotion into the wound 1-2 times per day to help soften the scarring. Follow up as needed.
--- NOTE | 2024-01-20 09:19 | WC ---
PHOTO 01/17/[address] [facility]
== END 2024-01-17 13:20 | disposition home or self-care (01) ==
LOC: WC 09:00
PROVIDERS: PCP Family Medicine Geriatric Medicine; Referring Provider Family Medicine Geriatric Medicine; Visit Provider Nurse Practitioner Family
DX: S51.811A Laceration without foreign body of right forearm, initial encounter (principal); W01.10XA Fall on same level from slipping, tripping and stumbling with subsequent striking against unspecified object, initial encounter; N40.0 Benign prostatic hyperplasia without lower urinary tract symptoms; E78.5 Hyperlipidemia, unspecified; J45.909 Unspecified asthma, uncomplicated; I10 Essential (primary) hypertension; K21.9 Gastro-esophageal reflux disease without esophagitis; Z79.899 Other long term (current) drug therapy; Z87.891 Personal history of nicotine dependence
CPT/HCPCS: 11042; 99213; G0463

== ENCOUNTER → 2024-02-08 | Outpatient (CLI) | payer MEDICARE, SELFPAY | END | disposition home or self-care (01) | LOC: POLAB3 11:18 | PROVIDERS: PCP Family Medicine Geriatric Medicine; Visit Provider Family Medicine Geriatric Medicine | DX: R68.83 Chills (without fever) (principal) | CPT/HCPCS: 87631 ==

== ENCOUNTER → 2024-02-15 | Outpatient (CLI) | payer MEDICARE, SELFPAY | END | disposition home or self-care (01) | LOC: POLAB3 15:35 | PROVIDERS: PCP Family Medicine Geriatric Medicine; Visit Provider Family Medicine Geriatric Medicine | DX: R68.83 Chills (without fever) (principal) | CPT/HCPCS: 87631 ==

== ENCOUNTER → 2024-02-28 | Outpatient (CLI) | payer MEDICARE, SELFPAY ==
--- NOTE | 2024-02-28 17:21 | CT_ITS ---
STUDY: CTA CHEST REASON FOR EXAM: Male, 79 years old. Shortness of breath, PE RADIATION DOSAGE (If Supplied By Facility): CTDIvol = ( 12.43 ) mGy, DLP = ( 587.12 ) mGycm TECHNIQUE: The examination was performed with the intravenous administration of IV 100mL Isovue-370. Post-processing of the angiographic images was performed, with multiplanar reformation and 3D reconstruction. Individualized dose optimization techniques were used for this CT. COMPARISON: None. FINDINGS: Normal enhancement of the main pulmonary artery and right and left pulmonary arteries. Normal enhancement of the bilateral peripheral pulmonary arteries. There is no demonstrated pulmonary embolism. There is aneurysmal dilatation of the ascending aorta. The transverse diameter of the ascending aorta measures 41 mm''s. There is no demonstrated aortic dissection. Normal heart and pericardium. Normal mediastinum. Normal hilar regions. Normal visualized trachea and bronchi. The lungs are well expanded. There is mid and lower lung atelectasis. There are left lower lobe granulomas. Normal pleura. Normal chest wall structures. There are degenerative changes of thoracic spine. Normal visualized upper abdomen. CT/CTA Chest W/WO Contrast IMPRESSION: CTA chest examination, without a demonstrated pulmonary embolism or arterial dissection. Aneurysmal dilatation of the ascending aorta. Mid and lower lung atelectasis. Electronically Signed: Rhett Esquivel MD at 19:20 EDT ,
[2024-02-28 18:18] LABS: CREATININE FINGERSTICK < 1.0 mg/dL (0.70-1.30); EGFR FINGERSTICK > 60.0000 mL/min (>60)
== END | disposition home or self-care (01) ==
LOC: CT 17:17
PROVIDERS: PCP Family Medicine Geriatric Medicine; Referring Provider Family Medicine Geriatric Medicine; Visit Provider Family Medicine Geriatric Medicine
DX: I26.99 Other pulmonary embolism without acute cor pulmonale (principal); R06.02 Shortness of breath
CPT/HCPCS: 71275; Q9967

== ENCOUNTER → 2024-03-06 | Outpatient (CLI) | payer MEDICARE, SELFPAY | END | disposition home or self-care (01) | LOC: PSN 08:00 | PROVIDERS: PCP Family Medicine Geriatric Medicine; Referring Provider Family Medicine Geriatric Medicine; Visit Provider Family Medicine Geriatric Medicine | DX: I26.99 Other pulmonary embolism without acute cor pulmonale (principal); R06.02 Shortness of breath | CPT/HCPCS: 94060 ==

== ENCOUNTER → 2024-03-21 | Outpatient (CLI) | payer MEDICARE, SELFPAY ==
--- OUTSIDE RECORDS SUMMARY | 2024-03-21 12:10 | XMS RPT_ITS | CCD ---
Author Organization [facility] Care Team Providers Care Assistant Refinery Operator Name Role Phone Binu Solis MD Primary Care Provider [phone] RickyTre plascencia Chi Primary Care Provider BINU SOLIS Primary Care Unavailable BINU SOLIS Referring Unavailable BINU SOLIS Referring Unavailable BINU SOLIS Primary Care Unavailable BINU SOLIS Referring Unavailable AVERYBROTEMO, BINU Olmedo Primary Care Unavailable RICKY, TRE CHI Primary Care Unavailable RICKY, TRE CHI Primary Care Unavailable GENIE BUSTAMANTE Attending Unavailable BECKY FIERRO Referring Unavailable AVERYBROBINU PLASCENCIA Primary Care Unavailable BECKY FIERRO Referring Unavailable BINU SOLIS Primary Care Unavailable BECKY FIERRO Referring Unavailable BINU SOLIS Primary Care Unavailable BECKY FIERRO Attending Unavailable BINU SOLIS Primary Care Unavailable BINU SOLIS Referring Unavailable BINU SOLIS Primary Care Unavailable BINU SOLIS Attending Unavailable Binu Solis MD Primary Care Provider [phone] Allergies Allergy Classification Reported Allergen(s) Allergy Type Date of Onset Reaction(s) Facility (20 sources) environmental [Other] Propensity to adverse reactions 5 Intolerance [facility] (1 source) OTHER; Translations: [OTHER] Propensity to adverse reactions (disorder) 5 [facility] Repository Medications Current Medications Medication Drug Class(es) Dates Sig (Normalized) Sig (Original) [id number] 200 actuat albuterol 0.09 mg/actuat metered dose inhaler (20 sources) beta2-Adrenergic Agonist Start: 09-18-2022 End: 11-09-2023 take 2 puff(s) by inhalation every four hours as needed for wheezing albuterol HFA (PROVENTIL HFA, VENTOLIN HFA) 90 mcg/actuation inhaler Inhale 2 Puffs as instructed every 4 hours as needed for wheezing/shortnes s of breath. 3 Each 3 11/09/2023 Active Start: 06-21-2021 End: 08-27-2021 take 2 puff(s) by inhalation every four hours as needed albuterol HFA (PROAIR HFA) 90 mcg/actuation inhaler Indications: Cough , COVID Inhale 2 Puffs as instructed every 4 hours as needed. 18 g 0 06/21/2021 08/27/2021 Discontinued (Course of therapy completed) End: 09-18-2022 albuterol HFA (PROVENTIL HFA , VENTOLIN HFA) 90 mcg/actuation inhaler Inhale 2 Puffs as instructed. 0 09/18/2022 Discontinued Comment on above: Inhale 2 Puffs as in structed every 4 hours as needed. Inhale 2 Puffs as in structed. Inhale 2 Puffs as in structed every 4 hours as needed for wheezing/shortness of breath. amoxicillin 875 mg / clavulanate 125 mg oral tablet (2 sources) Penicillin-class Antibacterial Start: 2 End: 2 take 1 tablet by mouth twice daily amoxicillin-clavula santy acid (AUGMENTIN) 875-125 mg per tablet Take 1 tablet by mouth twice daily for 5 days. 10 tablet 0 02/15/2022 02/20/2022 Active Comment on above: Take 1 tablet by radha twice daily for 5 days. benzonatate 100 mg oral capsule (2 sources) Non-narcotic Antitussive Start: 2 End: 2 take 1 capsule by mouth every eight hours as needed for cough and cough benzonatate (TESSALON PERLES) 100 mg capsule Indications: Acute cough Take 1 capsule by mouth three times daily as needed for cough for up to 10 days. 30 capsule 1 05/13/2022 05/23/2022 Active Start: 06-21-2021 End: 08-27-2021 benzonatate (TESSALON PERLE) 100 mg capsule Indications: Cough Take 1-2 capsules tid prn, no more than 6 in 24 hours. 30 capsule 0 06/21/2021 08/27/2021 Discontinued (Course of therapy completed) Comment on above: Take 1-2 capsules ti d prn, no more than 6 in 24 hours. Take 1 capsule by mo [facility] three times daily as needed for cough for up to 10 days. doxycycline monohydrate 100 mg oral tablet (5 sources) Tetracycline-class Drug Start: 05-03-2022 End: 05-08-2022 take 1 tablet by mouth twice daily doxycycline monohydrate 100 mg tablet Take 1 tablet by mouth twice daily for 5 days. 10 tablet 0 05/03/2022 05/08/2022 Active Start: 02-23-2022 End: 03-05-2022 take 1 tablet by mouth twice daily doxycycline (VIBRA-TABS) 100 mg tablet Indications: Bronchitis Take 1 tablet by mouth twice daily for 10 days. 20 tablet 02/23/2022 03/05/2022 Comment on above: Take 1 tablet by radha twice daily for 10 days. Take 1 tablet by radha twice daily for 5 days. 60 actuat formoterol fumarate 0.005 mg/actuat / mometasone furoate 0.2 mg/actuat metered dose inhaler (20 sources) Corticosteroid, beta2-Adrenergic Agonist Start: 07-02-2023 take 2 puff(s) by inhalation twice daily mometasone-formoter ol (DULERA) 200-5 mcg/actuation inhaler Inhale 2 Puffs as instructed two times a day. 1 Each 07/02/2023 Active Start: 05-03-2023 take 2 puff(s) by in halation twice daily mometasone-formoterol (DULERA) 200-5 mcg/actuation inhaler Inhale 2 Puffs as instructed two times a day. 1 Each 11 05/03/2023 Active Start: 12-10-2022 End: 03-11-2023 take 2 puff(s) by inhalation twice daily mometasone-formoterol (DULERA) 200-5 mcg/actuation inhaler Indications: Cough variant asthma Inhale 2 Puffs as instructed twice daily. 3 Each 3 01/21/2023 03/11/2023 Discontinued Start: 03-13-2022 End: 12-10-2022 take 2 puff(s) by inhalation twice daily mometasone-formoterol (DULERA) 100-5 mcg/actuation inhaler Indications: SOB (shortness of breath) Inhale 2 Puffs as instructed twice daily. 1 Each 5 08/24/2022 12/10/2022 Discontinued Comment on above: Inhale 2 Puffs as in structed twice daily. Inhale 2 Puffs as in structed two times a day. lisinopril 5 mg oral tablet (20 sources) Angiotensin Converting Enzyme Inhibitor Start: 06-23-19 End: 05-03-20 lisinopril (ZESTRIL) 5 mg tablet Indications: Hypertension, essential take 1 tablet daily 90 tablet 3 05/03/2023 Active Comment on above: Take 1 tablet by radha th once daily. take 1 tablet daily montelukast 10 mg oral tablet (20 sources) Leukotriene Receptor Antagonist Start: 05-13-20 End: 09-08-19 take 1 tablet by mouth once daily at bedtime montelukast (SINGULAIR) 10 mg tablet Indications: Moderate persistent asthma without complication Take 1 tablet by mouth daily at bedtime. 90 tablet 3 09/08/2022 Active Comment on above: Take 1 tablet by radha th daily at bedtime. nortriptyline 50 mg oral capsule (20 sources) Tricyclic Antidepressant Start: 08-28-19 End: 09-08-19 take 1 capsule by mouth twice daily nortriptyline (PAMELOR) 50 mg capsule Indications: Recurrent major depressive disorder, in full remission (HCC) Take 1 capsule by mouth twice daily. 180 capsule 3 09/08/2022 Active Start: 07-30-2021 End: 08-27-2021 take 1 capsule by mouth once daily at bedtime nortriptyline (PAMELOR) 75 mg capsule Take 1 capsule by mouth daily at bedtime. 30 capsule 0 07/30/2021 08/27/2021 Discontinued (Course of therapy completed) Comment on above: Take 1 capsule by mo ut twice daily. Take 1 capsule by mo ut daily at bedtime. omeprazole 40 mg delayed release oral capsule (20 sources) Proton Pump Inhibitor Start: take 1 capsule by mouth once daily omeprazole (PRILOSEC) 40 mg capsule Indications: Gastroesophageal reflux disease, unspecified whether esophagitis present Take 1 capsule by mouth once daily 90 capsule 05/03/2023 Active Start: 01-21-2023 take 1 capsule by mo ut once daily omeprazole (PRILOSEC) 40 mg capsule Indications: Gastroesophageal reflux disease, unspecified whether esophagitis present Take 1 capsule by mouth once daily. 30 capsule 3 01/21/2023 Active Start: 04-28-2021 End: 01-21-2023 take 1 capsule by mouth once daily before breakfast omeprazole (PRILOSEC) 20 mg capsule Take 1 capsule by mouth daily before breakfast. 1/2 hr before meal. 90 capsule 3 04/28/2021 03/19/2022 Discontinued Comment on above: Take 1 capsule by mo ut daily before breakfast. 1/2 hr before meal. TAKE 1 CAPSULE DAILY BEFORE BREAKFAST (ONE-HALF HOUR BEFORE MEAL). Take 1 capsule by mo [facility] once daily. Take 1 capsule by mo [facility] once daily perflutren lipid microspheres 1.3 mL in NaCl (PF) 0.9% 10 mL injection (DEFINITY) (17 sources) Start: 3 End: 4 perflutren lipid microspheres 1.3 mL in NaCl (PF) 0.9% 10 mL injection (DEFINITY) polyethylene glycol 3350 07889 mg powder for oral solution (20 sources) Osmotic Laxative Start: 0 take 1 dose by mouth twice daily polyethylene glycol 3350 (MIRALAX, GLYCOLAX) 17 gram packet Indications: Chronic constipation Take 1 Packet by mouth twice daily. 180 Packet 3 01/25/2020 Active Comment on above: Take [address] [facility] twice daily. predniSONE 10 mg oral tablet (5 sources) Start: 3 End: 3 predniSONE (DELTASONE) 10 mg tablet Indications: Rib pain on right side Take 4 tabs daily x 3 days, then 3 tabs x 3 days, 2 tabs x 3 days, then 1 tab x3 days with food. 30 tablet 0 08/19/2022 08/31/2022 Active Start: 05-03-2022 End: 05-08-2022 take 1 tablet by mouth once daily predniSONE (DELTASONE) 20 mg tablet Take 1 tablet by mouth once daily for 5 days. 5 tablet 0 05/03/2022 05/08/2022 Active Start: 02-15-2022 End: 02-20-2022 take 2 tablets by mouth once daily predniSONE (DELTASONE) 20 mg tablet Take 2 tablets by mouth once daily for 5 days. 10 tablet 0 02/15/2022 02/20/2022 Active Comment on above: Take 2 tablets by [facility] once daily for 5 days. Take [address] [facility] once daily for 5 days. Take 4 tabs daily x 3 days, then 3 tabs x 3 days, 2 tabs x 3 days, then 1 tab x3 days with food. 125 ml sodium chloride 9 mg/ml prefilled syringe (17 sources) Start: 12-10-2022 End: 03-10-2024 sodium chloride 0.9 % (flush) 10 mL (BD POSIFLUSH) tamsulosin hydrochloride 0.4 mg oral capsule (20 sources) alpha-Adrenergic Rory Start: 04-28-2021 End: 03-19-2022 tamsulosin (FLOMAX) 0.4 mg TAKE 1 CAPSULE DAILY AT BEDTIME 90 capsule 3 03/19/2022 Active Comment on above: Take 1 capsule by [facility] daily at bedtime. TAKE 1 CAPSULE DAILY AT BEDTIME Completed/Discontinued Medications Medication Drug Class(es) Dates Sig (Normalized) Sig (Original) 120 actuat fluticasone propionate 0.23 mg/actuat / salmeterol 0.021 mg/actuat metered dose inhaler (1 source) Corticosteroid, beta2-Adrenergic Agonist Start: 06-01-2023 End: 07-02-2023 take 2 puff(s) by inhalation twice daily fluticasone-salme terol HFA (ADVAIR HFA) 230-21 mcg/actuation inhaler Inhale 2 Puffs as instructed two times a day. 3 Each 3 06/01/2023 07/02/2023 Discontinued Comment on above: Inhale 2 Puffs as in structed two times a day. maprotiline hydrochloride 50 mg oral tablet (1 source) Start: 07-30-2021 End: 08-27-2021 take 0.5 tablet by mouth once daily at bedtime maprotiline (LUDIOMIL) 50 mg tablet Take 0.5 tablets by mouth daily at bedtime. 60 tablet 0 07/30/2021 08/27/2021 Discontinued (Course of therapy completed) Comment on above: Take 0.5 tablets by mouth daily at bedtime. 30 actuat mometasone furoate 0.11 mg/actuat dry powder inhaler (16 sources) Corticosteroid Start: 05-26-2021 End: 03-13-2022 mometasone (ASMANEX TWISTHALER) 110 mcg/ actuation (30) twisthaler USE 1 INHALATION DAILY INSTRUCTED (EXPIRES 45 DAYS) 3 Each 3 05/26/2021 03/13/2022 Discontinued Comment on above: USE 1 INHALATION OFELIA LY INSTRUCTED (EXPIRES 45 DAYS) Problems Active Problems Problem Classification Problem Date Documented Date Episodic/Chronic Adjustment disorders (20 sources) Adjustment disorder with depressed mood; Translations: [Adjustment disorder with depressed mood] Onset: 08-28-2008 08-28-2008 Chronic Anxiety disorders (20 sources) Anxiety; Translations: [Anxiety disorder, unspecified] Onset: 01-15-2015 01-15-2015 Chronic Asthma (20 sources) Cough variant asthma; Translations: [Cough variant asthma] Onset: 05-13-2022 Chronic Cardiac dysrhythmias (1 source) Tachycardia; Translations: [Tachycardia, unspecified] 02-23-2024 Episodic Chronic obstructive pulmonary disease and bronchiectasis (1 source) Bronchitis; Translations: [Bronchitis, not specified as acute or chronic] Episodic Coagulation and hemorrhagic disorders (3 sources) Platelet disorder; 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 Diabetes mellitus without complication (1 source) Increased glucose level; Translations: [Other abnormal glucose] Episodic Esophageal disorders (2 sources) Gastroesophageal reflux disease; Translations: [Gastro-esophageal reflux disease [...] other site] Episodic Other infections; including parasitic (4 sources) Personal history of other infectious and parasitic diseases; Translations: [History of COVID-19] Episodic Other lower respiratory disease (4 sources) Cough; Translations: [Acute cough] Episodic Other lower respiratory disease (1 source) Rib pain; Translations: [Pleurodynia] Episodic Other lower respiratory disease (1 source) Dyspnea on exertion; Translations: [Other forms of dyspnea] 03-01-2023 Episodic Other lower respiratory disease (2 sources) Cough; Translations: [Acute cough] 05-11-2022 Episodic Other upper respiratory disease (1 source) Chronic rhinitis; Translations: [Unspecified sinusitis (chronic)] Chronic Other upper respiratory disease (2 sources) Seasonal allergy; Translations: [Other seasonal allergic rhinitis] 11-09-2023 Chronic Other upper respiratory infections (2 sources) Acute upper respiratory infection; Translations: [Acute upper [...] Classification Problem Date Documented Da te Episodic/Chronic Abdominal pain (9 sources) Generalized abdominal pain; Translations: [Generalized abdominal pain] Onset: 03-19-2006 Resolved: 06-12-2014 06-12-2014 Episodic Allergic reactions (20 sources) Eczema; Translations: [Dermatitis, unspecified] Onset: 06-09-2011 06-09-2011 Episodic Hemorrhoids (20 sources) Internal hemorrhoids; Translations: [Other hemorrhoids] Onset: 01-11-2018 01-11-2018 Episodic Neoplasms of unspecified nature or uncertain behavior (9 sources) Neoplasm of uncertain behavior of skin; Translations: [Neoplasm of uncertain behavior of skin] Onset: 01-23-2009 Resolved: 06-12-2014 06-12-2014 Episodic Other connective tissue disease (9 sources) Achilles tendinitis; Translations: [Achilles tendinitis, unspecified leg] Onset: 10-04-2012 Resolved: 04-17-2015 04-17-2015 Episodic Other lower respiratory disease (20 sources) Dyspnea; Translations: [Shortness of breath] Onset: 09-01-2006 Resolved: 06-29-2016 Episodic Other lower respiratory disease (1 source) Shortness of breath; Translations: [SOB (shortness of breath)] Onset: 04-19-2023 Episodic Other lower respiratory disease (1 source) Other forms of dyspnea; Translations: [PERSON (dyspnea on exertion)] Onset: 03-01-2023 Episodic Other non-epithelial cancer of skin (20 sources) History of malignant neoplasm of skin; Translations: [Personal history of other malignant neoplasm of skin] Onset: 03-25-2009 Resolved: 06-12-2014 07-16-2009 Episodic Other upper respiratory disease (8 sources) Vocal cord dysfunction; Translations: [Other diseases of vocal cords] Onset: 2016 2016 Episodic Results Test Name Value Interpretation Reference Range Facility XR Chest PA and Lateralon IMPRESSION: No acute radiographic abnormality. Hypnotherapist: SHOB Transcribe Date/Time: Feb 24 2024 6:45A Dictated by : TIBURCIO CORTES MD This examination was interpreted and the report reviewed and electronically signed by: TIBURCIO CORTES MD on Feb 24 2024 6:47AM [facility] DIVISION OF RADIOLOGY * * *Final Report* * * DATE OF EXAM: Feb 23 2024 1:53PM [id number] - XR CHEST 2V FRONTAL/LAT / PROCEDURE REASON: Acute cough * * * * Physician Interpretation * * * * EXAMINATION: CHEST RADIOGRAPH (2 VIEW FRONTAL & LATERAL) CLINICAL HISTORY: Acute cough MQ: XC2_6 EXAM DATE/TIME: 02/23/2024 1:53 PM COMPARISON: 08/19/2022 and 05/11/2022 RESULT: Lines, tubes, and devices: None. Lungs and pleura: No consolidation. No lung mass. No pleural effusion. No pneumothorax. Stable elevation of the right hemidiaphragm Cardiomediastinal silhouette: Stable cardiomediastinal silhouette. The aorta is unfolded and ectatic. Bones and soft tissues: Healed right rib fractures DIVISION OF RADIOLOGY Provider, Jairo Hernández - 02/24/2024 * * *Final Report* * * DATE OF EXAM: Feb 23 2024 1:53PM [id number] - XR CHEST 2V FRONTAL/LAT / PROCEDURE REASON: Acute cough * * * * Physician Interpretation * * * * EXAMINATION: CHEST RADIOGRAPH (2 VIEW FRONTAL & LATERAL) CLINICAL HISTORY: Acute cough MQ: XC2_6 EXAM DATE/TIME: 02/23/2024 1:53 PM COMPARISON: 08/19/2022 and 05/11/2022 RESULT: Lines, tubes, and devices: None. Lungs and pleura: No consolidation. No lung mass. No pleural effusion. No pneumothorax. Stable elevation of the right hemidiaphragm Cardiomediastinal silhouette: Stable cardiomediastinal silhouette. The aorta is unfolded and ectatic. Bones and soft tissues: Healed right rib fractures IMPRESSION IMPRESSION: No acute radiographic abnormality. Hypnotherapist: PSCB Transcribe Date/Time: Feb 24 2024 6:45A Dictated by : TIBURCIO CORTES MD This examination was interpreted and the report reviewed and electronically signed by: TIBURCIO CORTES MD on Feb 24 2024 6:47AM EST [facility] XR Chest PA and LateralOrder ed By: Ccf Provider on 02-24-2024 [facility] XR Chest PA and Lateralon Radiology Study observation (narrative) [facility] CNOVon 01-29-2024 CNOV Office Visit (UCWSTR ) RICKVALENTINA Manuel ([id number]) 1945 M Date Time Provider Department 01/29/24 12:45 PM FER RUELAS WSTR During your visit today, we recorded the following information about you: Temperature Pulse Respiration Blood pressure 98.4 degrees 96/minute 18/minute 138/72 Weight 88.6 kg Fer Ruelas PA 01/29/2024 12:49 PM Signed This note was created using MyMedMatchriter. Subjective Valentina Cabrera is a 79 year old male. HPI 79-year-old male presents for cough, congestion x 1 day. Patient states yesterday he started getting cough, sore throat, nasal congestion and chest congestion. He is was recently sick with similar symptoms as well as his grandson. Patient states he has a low-grade fever yesterday. No fever today. He has not taken anything [id number] for symptoms. He does have history of asthma. Denies any shortness of breath or wheezing. No chest pain. No other complaint. 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 06/05/2010: Lumbar discogenic pain syndrome No date: Male erectile disorder No date: Other intervertebral disc degeneration, lumbosacral region No date: Overweight No date: Personal history of other malignant neoplasm of skin No date: Personal history of tobacco use No date: Rosacea No date: Unilateral primary osteoarthritis, right knee PAST SURGICAL HISTORY 2019: CATARACT EXTRACTION HX; Bilateral 09/26/2001: COLONOSCOPY FLX DX W/COLLJ SPEC WHEN PFRMD Comment: Colonoscopy-repeat in 11/03/2011: COLONOSCOPY FLX DX W/COLLJ SPEC WHEN PFRMD Comment: Colonoscopy 06/18/2020: COLONOSCOPY SCRN NOT HIGH RISK 06/18/2020: EGD 10 yrs ago: PAST SURGICAL HISTORY OF Comment: BCC removed by Dr.Robert Naqvi 2004: PAST SURGICAL HISTORY OF Comment: Premalignant lesion on left side nose by Dr.Robert Naqvi No date: SKIN BIOPSY HX No date: SKIN BX, 1 LESION Comment: Skin biopsy No date: TONSILLECTOMY AND ADENOIDECTOMY ALLERGIES Patient has no active allergies. MEDICATIONS albuterol HFA (PROVENTIL HFA, VENTOLIN HFA) 90 mcg/actuation inhalerInhale 2 Puffs as instructed every 4 hours as needed for wheezing/shortness of breath.Disp: 3 EachRfl: 3 mometasone-formoterol (DULERA) 200-5 mcg/actuation inhalerInhale 2 Puffs as instructed two times a day.Disp: 1 EachRfl: 0 omeprazole (PRILOSEC) 40 mg capsuleTake 1 capsule by mouth once dailyDisp: 90 capsuleRfl: 0 lisinopril (ZESTRIL) 5 mg tablettake 1 tablet dailyDisp: 90 tabletRfl: 3 montelukast (SINGULAIR) 10 mg tabletTake 1 tablet by mouth daily at bedtime.Disp: 90 tabletRfl: 3 nortriptyline (PAMELOR) 50 mg capsuleTake 1 capsule by mouth twice daily.Disp: 180 capsuleRfl: 3 tamsulosin (FLOMAX) 0.4 mgTAKE 1 CAPSULE DAILY AT BEDTIMEDisp: 90 capsuleRfl: 3 polyethylene glycol 3350 (MIRALAX, GLYCOLAX) 17 gram packetTake 1 Packet by mouth twice daily.Disp: 180 PacketRfl: 3 mometasone-formoterol (DULERA) 200-5 mcg/actuation inhalerInhale 2 Puffs as instructed two times a day.Disp: 3 EachRfl: 3 FAMILY HISTORY Problem Relation Age of Onset Anxiety disorder Mother Depression Mother Stroke Mother Hypertension Mother Cancer Father pancreatic cancer Social History Tobacco Use Smoking status: Never Smokeless tobacco: Never Tobacco comments: Non smoking childhood home. Vaping Use Vaping status: Never Used Substance Use Topics Alcohol use: No Drug use: No Review of Systems Constitutional: Negative for chills and fever. HENT: Positive for congestion and sore throat. Respiratory: Positive for cough. Negative for shortness of breath. Gastrointestinal: Negative for diarrhea and vomiting. Objective BP 138/72 Pulse 96 Temp 36.9 ?C (98.4 ?F) Resp 18 Wt 88.6 kg (195 lb 5.2 oz) SpO2 95% BMI 30.44 kg/m? Physical Exam Vitals and nursing note reviewed. Constitutional: General: He is not in acute distress. Appearance: Normal appearance. He is not toxic-appearing. HENT: Right Ear: Tympanic membrane and ear canal normal. Left Ear: Tympanic membrane and ear canal normal. Nose: Nose normal. Mouth/Throat: Mouth: Mucous membranes are moist. Eyes: Conjunctiva/sclera: Conjunctivae normal. Cardiovascular: Rate and Rhythm: Normal rate and regular rhythm. Pulmonary: Effort: Pulmonary effort is normal. B (more content not included)... Normal [facility] COVID AND INFLUENZA A/B AND RSV PCR, ROUTINEon 01-29-2024 SARS-CoV-2 (COVID-19) RNA GRACE+probe Ql (Unsp spec) SARS-COV-2 (AGENT OF COVID-19) RNA: Detected INFLUENZA A RNA: Not detected INFLUENZA B RNA: Not detected RESPIRATORY SYNCYTIAL VIRUS (RSV) RNA: Not detected Abnormal [facility] Comment on above: Performed By: #### C VFLRS ####[facility] LABCLIA [id number] [address] OF [facility] CNOVon 11-09-2023 CNOV Office Visit (PULMWS ) VALENTINA CABRERA ([id number]) 1945 M Date Time Provider Department 11/09/23 10:30 AM GENIE BUSTAMANTE PULMWS During your visit today, we recorded the following information about you: Pulse Respiration Weight 83/minute 15/minute 86.6 kg Genie Bustamante MD 11/09/2023 11:28 AM Signed . Respiratory [place] Note Patient name: Valentina Cabrera PCP: Binu Solis MD CC: Follow-up HPI: Valentina Cabrera 78 year old male never smoker with PMH significant for GERD, BPH, HTN, allergies previously treated with IT, depression, eventration of diaphragm, chronic cough. Methacholine challenge negative, had referral to Dr. Roca for VCD but was started on ICS by PCP which resolved his cough. Current therapy consists of Dulera, Singulair, and as needed albuterol. At [facility] with JULISSA, stopped Singulair, continued inhaler, and ordered diaphragm evaluation. Unable to tolerate discontinuation of Singulair with recrudescence of his allergic symptoms, specifically, increased cough and nasal congestion. Evaluation for diaphragmatic dysfunction negative. Overall respiratory symptoms remain relatively stable. Main symptom is but also worsened by emotional distress and high pollen counts. Notices worsening of his asthma symptoms on days that he mows his lawn. He has been using a mask which does seem to help. No significant audible wheezing, productive cough, chest pain. He has not been ill with any recent upper respiratory infections nor required course of oral steroids. Uses his albuterol at least once weekly. No nocturnal awakenings. DATA: ASTHMA CONTROL TEST Date: 11/09/2023 In the last 4 weeks, how much of the time did your asthma keep you from getting as much done at work or home that you wanted to do? Some of the time (3) In the last 4 weeks, how often [...] how would you rate your asthma control? Somewhat controlled (3) Total: 16-19 PFT: Spirometry/MIP/MEP Spirometry is normal. MIP and MEP normal Imaging / Diagnostic Studies: Review of CXR shows bilateral elevated diaphragms. 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 Male erectile disorder Other intervertebral disc degeneration, lumbosacral region Overweight Personal history of other malignant neoplasm of skin Personal history of tobacco use Rosacea Unilateral primary osteoarthritis, right knee ALLERGIES No Active Allergies mometasone-formoterol (DULERA) 200-5 mcg/actuation inhalerInhale 2 Puffs as instructed two times a day.Disp: 1 EachRfl: 0 omeprazole (PRILOSEC) 40 mg capsuleTake 1 capsule by mouth once dailyDisp: 90 capsuleRfl: 0 lisinopril (ZESTRIL) 5 mg tablettake 1 tablet dailyDisp: 90 tabletRfl: 3 montelukast (SINGULAIR) 10 mg tabletTake 1 tablet by mouth daily at bedtime.Disp: 90 tabletRfl: 3 nortriptyline (PAMELOR) 50 mg capsuleTake 1 capsule by mouth twice daily.Disp: 180 capsuleRfl: 3 tamsulosin (FLOMAX) 0.4 mgTAKE 1 CAPSULE DAILY AT BEDTIMEDisp: 90 capsuleRfl: 3 polyethylene glycol 3350 (MIRALAX, GLYCOLAX) 17 gram packetTake 1 Packet by mouth twice daily.Disp: 180 PacketRfl: 3 albuterol HFA (PROVENTIL HFA, VENTOLIN HFA) 90 mcg/actuation inhalerInhale 2 Puffs as instructed every 4 hours as needed for wheezing/shortness of breath.Disp: 3 EachRfl: 3 mometasone-formoterol (DULERA) 200-5 mcg/actuation inhalerInhale 2 Puffs as instructed two times a day.Disp: 3 EachRfl: 3 Social History Tobacco Use Smoking status: Never Smokeless tobacco: Never Tobacco comments: Non smoking childhood home. Vaping Use Vaping Use: Never used Substance Use Topics Alcohol use: No Drug use: No FAMILY HISTORY Problem Relation Age of Onset Anxiety disorder Mother Depression Mother Stroke Mother Hypertension Mother Cancer Father pancreatic cancer (more content not included)... Normal [facility] Faviola 07-02-2023 FABIO Telephone (PULMWS) VALENTINA CABRERA ([id number]) 1945 M Date Time Provider Department 07/02/23 BECKY FIERRO During your visit today, we recorded the following information about you: Deirdre Brand LPN 07/02/2023 8:34 AM Signed Patient called. Verified name and date of [...] and needs 90 day supply sent to [facility] but needs initial order to get him started sent to [facility]. He has some of the Dulera 100 mcg/5 left but that is not what he was taking most recently and is asking if that can be doubled up as he was most recently taking 200 mcg/5. Please review and advise. YANDY Lujan Kimberly, LPN 07/02/2023 11:18 AM Signed Patient called. Verified name and date of . Called to make sure message was sent and to let staff know he did go to his PCP today and was given okay to double up on the Dulera 100 mcg/5 and a sedative to help him sleep. He will wait to hear back from staff. YANDY Lujan Jennifer M, PA-C 07/02/2023 11:25 AM Signed I sent one script to be filled locally and sent a 3 month supply with refills to mail order. Virginie Allergies As of Date: 07/02/2023 Noted Allergy Reaction environmental [Other] 02/26/2005 5 - Intolerance Date Reviewed: 04/19/2023 Reviewed by: Becky Fierro PA-C - Fully Assessed Reason for Visit: Medication Problem [65] Visit Diagnosis:Cough variant asthma [J45.991] Order(s):mometasone-fo rmoterol (DULERA) 200-5 mcg/actuation inhalerInhale 2 Puffs as instructed two times a day.Disp: 1 EachRfl: 0 mometasone-formoterol (DULERA) 200-5 mcg/actuation inhalerInhale 2 Puffs as instructed two times a day.Disp: 3 EachRfl: 3 Prescriptions as of 07/02/2023 - mometasone-formoterol (DULERA) 200-5 mcg/actuation inhaler Inhale 2 Puffs as instructed two times a day. - mometasone-formoterol (DULERA) 200-5 mcg/actuation inhaler Inhale 2 Puffs as instructed two times a day. - omeprazole (PRILOSEC) 40 mg capsule Take 1 capsule by mouth once daily - lisinopril (ZESTRIL) 5 mg tablet take 1 tablet daily - albuterol HFA (PROVENTIL HFA, VENTOLIN HFA) 90 mcg/actuation inhaler Inhale 2 Puffs as instructed every 4 hours as needed for wheezing/shortness of breath. - montelukast (SINGULAIR) 10 mg tablet Take 1 tablet by mouth daily at bedtime. - nortriptyline (PAMELOR) 50 mg capsule Take 1 capsule by mouth twice daily. - tamsulosin (FLOMAX) 0.4 mg TAKE 1 CAPSULE DAILY AT BEDTIME - polyethylene glycol 3350 (MIRALAX, GLYCOLAX) 17 gram packet Take 1 Packet by mouth twice daily. 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 *03/25/2009 06/12/2014 History of Malignant Neoplasm of Skin: BCC (nec*07/16/2009 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] 06/05/2010 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 MOMETASONE-FORMOTEROL HFA 200 MCG-5 * 3 Ea* 3 07/02/2023 Route: INHALATION Sig: Inhale 2 Puffs as instructed two times a day. Medications Discontinued During This Encounter Prescriptions - fluticasone-salmeterol HFA (ADVAIR HFA) 230-21 mcg/actuation inhaler (Discontinued) Inhale 2 Puffs as instructed two times a day. Encounter Status:Closed by BECKY FIERRO on 07/02/23 [facility] CNOVkenny 04-19-2023 CNOV Office Visit (PULMWS ) VALENTINA CABRERA ([id number]) 1945 C[place] Date Time Provider Department 04/19/23 9:30 AM BECKY FIERRO PULMWS During your visit today, we recorded the following information about you: Pulse Respiration Blood pressure Weight 94/minute 15/minute 124/76 88.5 kg Becky Fierro PA-C 04/19/2023 2:09 PM Signed Patient: Valentina Cabrera PCP: Binu Solis MD CC: follow up HPI: Valentina Cabrera 78 year old male never smoker with [...] other lower urinary tract symptoms (LUTS) 07/05/2007 half-way (current) use of inhaled steroids Lumbar discogenic [...] with examination. HEENT: Normocephalic. Sclera, conjunctiva clear. (more content not included)... Normal [facility] MIPS/MEPSon 04-19-2023 [facility] SPIROMETRY BASELINE ONLYon 1 06-19-2022 BNJ23-89% PRE (L/S) 1.25 L/S [facility] FEV1 PRE (L) 2.73 L [facility] FEV1/FVC PRE (%) 67 % [facility] FVC PRE (L) 4.09 L [facility] MEP PRE (cmH2O) 112.80 cmH2O [facility] MIP PRE (cmH2O) -104.06 cmH2O [facility] PEF PRE (L/S) 7.39 L/S [facility] CBC W Auto Differential pane l (Bld)on 03-09-2023 Basophils (Bld) [#/Vol] <0.11 k/uL [facility] Basophils/100 WBC (Bld) 0.2 % [facility] Differential cell count method Nom (Bld) Auto [facility] Eosinophils (Bld) [#/Vol] 0.03 10*3/uL <0.46 k/uL [facility] Eosinophils/100 WBC (Bld) 0.4 % [facility] Erythrocyte distribution width (RBC) [Ratio] 13.2 % 11.5 - 15.0 % [facility] Hematocrit (Bld) [Volume fraction] 47.3 % 39.0 - 51.0 % [facility] Hemoglobin (Bld) [Mass/Vol] 15.2 g/dL 13.0 - 17.0 g/dL [facility] Immature granulocytes (Bld) [#/Vol] 0.03 10*3/uL <0.10 k/uL [facility] Immature granulocytes/100 WBC (Bld) 0.4 % [facility] Lymphocytes (Bld) [#/Vol] 2.78 10*3/uL 1.00 - 4.00 k/uL [facility] Lymphocytes/100 WBC (Bld) 34.6 % [facility] MCH (RBC) [Entitic mass] 30.5 pg 26.0 - 34.0 pg [facility] MCHC (RBC) [Mass/Vol] 32.1 g/dL 30.5 - 36.0 g/dL [facility] MCV (RBC) [Entitic vol] 94.8 fL 80.0 - 100.0 fL [facility] Monocytes (Bld) [#/Vol] 0.59 10*3/uL <0.87 k/uL [facility] Monocytes/100 WBC (Bld) 7.3 % [facility] Neutrophils (Bld) [#/Vol] 4.58 10*3/uL 1.45 - 7.50 k/uL [facility] Neutrophils/100 WBC (Bld) 57.1 % [facility] Nucleated RBC (Bld) [#/Vol] <0.01 k/uL [facility] Nucleated RBC/100 WBC (Bld) [Ratio] 0.0 /100 WBC [facility] Platelet mean volume (Bld) [Entitic vol] 12.2 fL 9.0 - 12.7 fL [facility] Platelets (Bld) [#/Vol] 192 10*3/uL 150 - 400 k/uL [facility] RBC (Bld) [#/Vol] 4.99 10*6/uL 4.20 - 6.0 0 m/uL [facility] WBC (Bld) [#/Vol] 8.03 10*3/uL 3.70 - 11. 00 k/uL [facility] Basophils (Bld) [#/Vol] 10*3/uL Normal <0.11 [facility] Comment on above: Order Comment: Speci men Type: BLOOD SPECIMEN Ordering Facility: [facility] Address: [address] [place] [address] Performed By: #### 5 7021-8 #### [facility] CLIA [id number] [address] [place] [address] [place] Basophils/100 WBC (Bld) 0.2 % Normal [facility] Comment on above: Order Comment: Speci men Type: BLOOD SPECIMEN Ordering Facility: [facility] Address: [address] [place] [address] Performed By: #### 5 7021-8 #### [facility] CLIA [id number] [address] [place] [address] [place] Differential cell count method Nom (Bld) Auto Normal [facility] Comment on above: Order Comment: Speci men Type: BLOOD SPECIMEN Ordering Facility: [facility] Address: [address] [place] [address] Performed By: #### 5 7021-8 #### [facility] CLIA [id number] [address] [place] [address] [place] Eosinophils (Bld) [#/Vol] 0.03 10*3/uL Normal <0.46 [facility] Comment on above: Order Comment: Speci men Type: BLOOD SPECIMEN Ordering Facility: [facility] Address: [address] [place] [address] Performed By: #### 5 7021-8 #### [facility] CLIA [id number] [address] [place] [address] [place] Eosinophils/100 WBC (Bld) 0.4 % Normal [facility] Comment on above: Order Comment: Speci men Type: BLOOD SPECIMEN Ordering Facility: [facility] Address: [address] [place] [address] Performed By: #### 5 7021-8 #### [facility] CLIA [id number] [address] [place] [address] [place] Erythrocyte distribution width (RBC) [Ratio] 13.2 % Normal 11.5-15.0 [facility] Comment on above: Order Comment: Speci men Type: BLOOD SPECIMEN Ordering Facility: [facility] Address: [address] [place] [address] Performed By: #### 5 7021-8 #### [facility] CLIA [id number] [address] [place] [address] [place] Hematocrit (Bld) [Volume fraction] 47.3 % Normal 39.0-51.0 [facility] Comment on above: Order Comment: Speci men Type: BLOOD SPECIMEN Ordering Facility: [facility] Address: [address] [place] [address] Performed By: #### 5 7021-8 #### [facility] CLIA [id number] [address] [place] [address] [place] Hemoglobin (Bld) [Mass/Vol] 15.2 g/dL Normal 13.0-17.0 [facility] Comment on above: Order Comment: Speci men Type: BLOOD SPECIMEN Ordering Facility: [facility] Address: [address] [place] [address] Performed By: #### 5 7021-8 #### [facility] CLIA [id number] [address] [place] [address] [place] Immature granulocytes (Bld) [#/Vol] 0.03 10*3/uL Normal <0.10 [facility] Comment on above: Order Comment: Speci men Type: BLOOD SPECIMEN Ordering Facility: [facility] Address: [address] [place] [address] Performed By: #### 5 7021-8 #### [facility] CLIA [id number] [address] [place] [address] [place] Immature granulocytes/100 WBC (Bld) 0.4 % Normal [facility] Comment on above: Order Comment: Speci men Type: BLOOD SPECIMEN Ordering Facility: [facility] Address: [address] [place] [address] Performed By: #### 5 7021-8 #### [facility] CLIA [id number] [address] [place] [address] [place] Lymphocytes (Bld) [#/Vol] 2.78 10*3/uL Normal 1.00-4.00 [facility] Comment on above: Order Comment: Speci men Type: BLOOD SPECIMEN Ordering Facility: [facility] Address: [address] [place] [address] Performed By: #### 5 7021-8 #### [facility] CLIA [id number] [address] [place] [address] [place] Lymphocytes/100 WBC (Bld) 34.6 % Normal [facility] Comment on above: Order Comment: Speci men Type: BLOOD SPECIMEN Ordering Facility: [facility] Address: [address] [place] [address] Performed By: #### 5 7021-8 #### [facility] CLIA [id number] [address] [place] [address] [place] MCH (RBC) [Entitic mass] 30.5 pg Normal 26.0-34.0 [facility] Comment on above: Order Comment: Speci men Type: BLOOD SPECIMEN Ordering Facility: [facility] Address: [address] [place] [address] Performed By: #### 5 7021-8 #### [facility] CLIA [id number] [address] [place] [address] [place] MCHC (RBC) [Mass/Vol] 32.1 g/dL Normal 30.5-36.0 [facility] Comment on above: Order Comment: Speci men Type: BLOOD SPECIMEN Ordering Facility: [facility] Address: [address] [place] [address] Performed By: #### 5 7021-8 #### [facility] CLIA [id number] [address] [place] [address] [place] MCV (RBC) [Entitic vol] 94.8 fL Normal 80.0-100.0 [facility] Comment on above: Order Comment: Speci men Type: BLOOD SPECIMEN Ordering Facility: [facility] Address: [address] [place] [address] Performed By: #### 5 7021-8 #### [facility] CLIA [id number] [address] [place] [address] [place] Monocytes (Bld) [#/Vol] 0.59 10*3/uL Normal <0.87 [facility] Comment on above: Order Comment: Speci men Type: BLOOD SPECIMEN Ordering Facility: [facility] Address: [address] [place] [address] Performed By: #### 5 7021-8 #### [facility] CLIA [id number] [address] [place] [address] [place] Monocytes/100 WBC (Bld) 7.3 % Normal [facility] Comment on above: Order Comment: Speci men Type: BLOOD SPECIMEN Ordering Facility: [facility] Address: [address] [place] [address] Performed By: #### 5 7021-8 #### [facility] CLIA [id number] [address] [place] [address] [place] Neutrophils (Bld) [#/Vol] 4.58 10*3/uL Normal 1.45-7.50 [facility] Comment on above: Order Comment: Speci men Type: BLOOD SPECIMEN Ordering Facility: [facility] Address: [address] [place] [address] Performed By: #### 5 7021-8 #### [facility] CLIA [id number] [address] [place] [address] [place] Neutrophils/100 WBC (Bld) 57.1 % Normal [facility] Comment on above: Order Comment: Speci men Type: BLOOD SPECIMEN Ordering Facility: [facility] Address: [address] [place] [address] Performed By: #### 5 7021-8 #### [facility] CLIA [id number] [address] [place] [address] [place] Nucleated RBC (Bld) [#/Vol] 10*3/uL Normal <0.01 [facility] Comment on above: Order Comment: Speci men Type: BLOOD SPECIMEN Ordering Facility: [facility] Address: [address] [place] [address] Performed By: #### 5 7021-8 #### [facility] CLIA [id number] [address] [place] [id number] [place] Nucleated RBC/100 WBC (Bld) [Ratio] 0.0 /100 WBC Normal [facility] Comment on above: Order Comment: Speci men Type: BLOOD SPECIMEN Ordering Facility: [facility] Address: [address] [place] [address] Performed By: #### 5 7021-8 #### [facility] CLIA [id number] [address] [place] [address] [place] Platelet mean volume (Bld) [Entitic vol] 12.2 fL Normal 9.0-12.7 [facility] Comment on above: Order Comment: Speci men Type: BLOOD SPECIMEN Ordering Facility: [facility] Address: [address] [place] [address] Performed By: #### 5 7021-8 #### [facility] CLIA [id number] [address] [place] [address] [place] Platelets (Bld) [#/Vol] 192 10*3/uL Normal 150-400 [facility] Comment on above: Order Comment: Speci men Type: BLOOD SPECIMEN Ordering Facility: [facility] Address: [address] [place] [address] Performed By: #### 5 7021-8 #### [facility] CLIA [id number] [address] [place] [address] [place] RBC (Bld) [#/Vol] 4.99 10*6/uL Normal 4.20-6.00 [facility] Comment on above: Order Comment: Speci men Type: BLOOD SPECIMEN Ordering Facility: [facility] Address: [address] [place] [address] Performed By: #### 5 7021-8 #### [facility] CLIA [id number] [address] [place] [address] [place] WBC (Bld) [#/Vol] 8.03 10*3/uL Normal 3.70-11.00 [facility] Comment on above: Order Comment: Speci men Type: BLOOD SPECIMEN Ordering Facility: [facility] Address: [address] [place], [place] [address] Performed By: #### 5 7021-8 #### [facility] CLIA [id number] [address] [facility] [id number] [facility] CNOVon 03-09-2023 CNOV Office Visit (FAMPWS ) VALENTINA CABRERA ([id number]) 1945 M Date Time Provider Department 03/09/23 9:40 AM [facility] During your visit today, we recorded the following information about you: Pulse Respiration Blood pressure Weight 88/minute 16/minute 120/78 89 kg Binu Solis MD 03/09/2023 9:58 AM Signed Chief Complaint Patient presents with: 6 Month Exam HPI Valentina Cabrera is a 78 year old male who [...] on 01/22/2024 Diabetes Screening due on 09/08/2025 DTaP (more content not included)... Normal [facility] CARDIAC PERF STRESS/EXERC ISEon 03-01-2023 NM CARDIAC PERF STRESS/EXERCISE * * *Final Report* * * DATE OF EXAM: Mar 01 2023 9:25AM ALMA DELIA [facility] [place] CARDIAC PERF STRESS/EXERCISE / PROCEDURE REASON: multiple diagnoses * * * * Physician Interpretation * * * * Stress Braider Operator Report: [facility] Date of service: 03/01/2023 7:27:53 AM Supervising physician: Norman Gordon MD PATIENT: Name: MR. VALENTINA CABRERA Age: 78 years Gender: M The supervising physician was in the department and immediately available. * * * Final * * * ------ PATIENT: Name: MR. VALENTINA CABRERA Age: 78 years Gender: M CONCLUSIONS: 1. SPECT Perfusion Study: Normal. 2. There is no scintigraphic evidence for inducible ischemia. 3. No evidence of scarred myocardium. 4. Left ventricle is normal in size. The left ventricle systolic function is hyperdynamic. 5. Right ventricle is normal in size. The right ventricle systolic function is normal. 6. This is a low risk scan. Gated Stress FBP Gated Rest FBP LVEF % 83 68 Prior Study Comparison No prior nuclear cardiology exam available for comparison. Nuclear Med Report:1-Day Gated SPECT Myocardial Perfusion with Exercise Stress: Myocardial perfusion imaging was performed at rest 30 to 60 minutes following the IV injection of the radiotracer. One minute prior to peak exercise, the patient was injected IV with the radiotracer. Gated post stress tomographic imaging was performed 10 to 20 minutes later. See administered radiotracer and doses below. [facility] Date of service: 03/01/2023 7:27:53 AM Ordering Physician: BINU SOLIS. Requesting Physician: BINU SOLIS Indication: Assessment for suspected CAD and Dyspnea Interpreting physician: Eric Bliss MD Height: 175.26 cm BSA: 2.08 m? Weight: 88.91 kg BMI: 28.9 kg/m? Imaging Protocol Limitation Reason Diaphragmatic attenuation. Exam Type: Rest Stress Radiopharm: Tc-99m Tetrofosmin Tc-99m Tetrofosmin Dosage(mCi): 12.3 33.4 Stress Agent: Treadmill Resting Blood Press: 116/68 mmHg Image Quality The overall study imaging quality was deemed to be good. The following technical issues were noted: Diaphragmatic attenuation. FINDINGS: Left Ventricle Wall Motion: Stress IR:3D - All segments are normal. Rest IR:3D - Gated Stress FBP - Reversibility - Gated Rest FBP - Stress IR:3D Stress IR:3D Gated Stress FBP Gated Rest FBP LVEF: 83 % 68 % ED Volume: 81 ml 79 ml ES Volume: 14 ml 25 ml TID: 0.89 Perfusion Findings Stress IR:3D - Summed Score=0 All segments demonstrate normal perfusion. Rest IR:3D - Summed Score=0 All segments demonstrate normal perfusion. Stress IR:3D Rest IR:3D Summed Score=0 Summed Score=0 LEFT VENTRICLE The left ventricle is normal in size. Left ventricular systolic function is hyperdynamic. Right Ventricle The right ventricle is normal in size. Right ventricle systolic function is normal. Stress Test Findings: There is no scintigraphic evidence for inducible ischemia. There is no evidence of scarring. The left ventricular cavity size is unchanged with stress. * * * Final * * * ------ Stress ECG Report: [facility] Date of service: 03/01/2023 7:27:53 AM Ordering physician: BINU SOLIS acoustic intelligence specialist: Aaliyah Hugo RN Interpreting physician: Norman Gordon MD Patient name: MR. VALENTIAN CABRERA Age: 78 years Gender: M Height: 175.26 cm BSA: 2.08 m? Weight: 88.91 kg BMI: 28.9 kg/m? Indication: Dyspnea on exertion and Encounter for screening for cardiovascular disorders Stress ECG Conclusion: Conclusion: Abnormal due to low chronotropic response index , low heart rate recovery and abnormal Steele treadmill score Prior exam comparison: No prior CC exam Stress ECG Summary: The patient's resting heart rate was 86 bpm and blood pressure was 116/68 mmHg. The patient exercised according to the [place] 5% protocol. The estimated end-exercise MET level achieved using the FRIEND equation * * * was 4.9, which is in the bottom 10th percentile for age and sex. The estimated end-exercise MET level achieved using the previous ACSM equation was 5.5. The test was terminated due to general fatigue and the total exercise time was 5 minutes and 30 seconds. No symptoms provoked during stress. The maximum heart rate was 130 bpm, which is 92% of the predicted heart rate for age. This is an adequate heart rate response. Peak blood pressure was 132/66 mmHg. The double product achieved was [address]. Resting ECG: Normal Sinus Rhythm Symptoms at rest: No symptoms (more content not included)... Normal [facility] No Panel Informationon 12-10 [facility] CBC W Auto Differential pane l (Bld)on 09-08-2022 Basophils (Bld) [#/Vol] 0.03 10*3/uL <0.11 k/uL [facility] Basophils/100 WBC (Bld) 0.4 % [facility] Differential cell count method Nom (Bld) Auto [facility] Eosinophils (Bld) [#/Vol] 0.04 10*3/uL <0.46 k/uL [facility] Eosinophils/100 WBC (Bld) 0.5 % [facility] Erythrocyte distribution width (RBC) [Ratio] 13.2 % 11.5 - 15.0 % [facility] Hematocrit (Bld) [Volume fraction] 48.2 % 39.0 - 51.0 % [facility] Hemoglobin (Bld) [Mass/Vol] 15.9 g/dL 13.0 - 17.0 g/dL [facility] Immature granulocytes (Bld) [#/Vol] 0.03 10*3/uL <0.10 k/uL [facility] Immature granulocytes/100 WBC (Bld) 0.4 % [facility] Lymphocytes (Bld) [#/Vol] 2.99 10*3/uL 1.00 - 4.00 k/uL [facility] Lymphocytes/100 WBC (Bld) 38.2 % [facility] MCH (RBC) [Entitic mass] 30.2 pg 26.0 - 34.0 pg [facility] MCHC (RBC) [Mass/Vol] 33.0 g/dL 30.5 - 36.0 g/dL [facility] MCV (RBC) [Entitic vol] 91.6 fL 80.0 - 100.0 fL [facility] Monocytes (Bld) [#/Vol] 0.75 10*3/uL <0.87 k/uL [facility] Monocytes/100 WBC (Bld) 9.6 % [facility] Neutrophils (Bld) [#/Vol] 3.98 10*3/uL 1.45 - 7.50 k/uL [facility] Neutrophils/100 WBC (Bld) 50.9 % [facility] Nucleated RBC (Bld) [#/Vol] <0.01 k/uL [facility] Nucleated RBC/100 WBC (Bld) [Ratio] 0.0 /100 WBC [facility] Platelet mean volume (Bld) [Entitic vol] 10.9 fL 9.0 - 12.7 fL [facility] Platelets (Bld) [#/Vol] 145 10*3/uL Low 150 - 400 k/uL [facility] RBC (Bld) [#/Vol] 5.26 10*6/uL 4.20 - 6.0 0 m/uL [facility] WBC (Bld) [#/Vol] 7.82 10*3/uL 3.70 - 11. 00 k/uL [facility] XR RIBS/CHEST 3V AP RIB/OBLS /CXR RIGHTon 08-19-2022 [facility] XR Ribs - right Views and est PAon 08-19-2022 IMPRESSION: Right sixth and seventh rib age indeterminate fractures, likely representing old rib fractures. Hypnotherapist: TASHI Transcribe Date/Time: Aug 19 2022 9:33A Dictated by : RONI VAIL MD This examination was interpreted and the report reviewed and electronically signed by: RONI VAIL MD on Aug 19 2022 9:38AM EST DIVISION OF RADIOLOGY * * *Final Report* * * DATE OF EXAM: Aug 19 2022 9:28AM WOX 5244 - XR RIB/CHST 3V AP RIB/OBL/CHST R / PROCEDURE REASON: Rib pain on right side * * * * Physician Interpretation * * * * XR RIB/CHST 3V AP RIB/OBL/CHST R EXAM DATE/TIME: 08/19/2022 9:28 AM COMPARISON: None. CLINICAL INDICATION/HISTORY: Rib pain. TECHNIQUE: AP views centered high and low and oblique view of right ribs are presented for interpretation. PA view of the chest is also present. FINDINGS: Right sixth and seventh rib age indeterminate fractures are demonstrated. There is no pneumothorax or pleural effusion. The underlying visualized lungs appear normal. DIVISION OF RADIOLOGY Provider, [facility] - 08/19/2022 * * *Final Report* * * DATE OF EXAM: Aug 19 2022 9:28AM WOX 5244 - XR RIB/CHST 3V AP RIB/OBL/CHST R / PROCEDURE REASON: Rib pain on right side * * * * Physician Interpretation * * * * XR RIB/CHST 3V AP RIB/OBL/CHST R EXAM DATE/TIME: 08/19/2022 9:28 AM COMPARISON: None. CLINICAL INDICATION/HISTORY: Rib pain. TECHNIQUE: AP views centered high and low and oblique view of right ribs are presented for interpretation. PA view of the chest is also present. FINDINGS: Right sixth and seventh rib age indeterminate fractures are demonstrated. There is no pneumothorax or pleural effusion. The underlying visualized lungs appear normal. IMPRESSION IMPRESSION: Right sixth and seventh rib age indeterminate fractures, likely representing old rib fractures. Hypnotherapist: TASHI Transcribe Date/Time: Aug 19 2022 9:33A Dictated by : RONI VAIL MD This examination was interpreted and the report reviewed and electronically signed by: RONI VAIL MD on Aug 19 2022 9:38AM EST [facility] Radiology Study observation (narrative) [facility] XR Ribs - right Views and Ch est PAOrdered By: Ccf Provider on 08-19-2022 [facility] XR Chest PA and Lateralon IMPRESSION: Questionable hazy opacities overlying the right upper lung. Consider follow-up. Hypnotherapist: [facility] Transcribe Date/Time: May 11 2022 9:14A Dictated by : RONI VAIL MD This examination was interpreted and the report reviewed and electronically signed by: RONI VAIL MD on May 11 2022 9:16AM EST DIVISION OF RADIOLOGY * * *Final Report* * * DATE OF EXAM: May 11 2022 9:09AM WOX 5291 - XR CHEST 2V FRONTAL/LAT / PROCEDURE REASON: Acute cough * * * * Physician Interpretation * * * * EXAMINATION: CHEST RADIOGRAPH (2 VIEW FRONTAL & LATERAL) CLINICAL HISTORY: Acute cough MQ: XC2_6 EXAM DATE/TIME: 05/11/2022 9:09 AM COMPARISON: Chest x-ray on 02/23/2022. RESULT: Lines, tubes, and devices: None. Lungs and pleura: Small lung volume due to inadequate inspiration. Questionable hazy opacities overlying the right upper lung. There is persistent eventration of the right hemidiaphragm, with associated lower lung atelectasis. No pleural effusions or pneumothorax. Cardiomediastinal silhouette: Stable cardiac silhouette, with tortuosity of the thoracic aorta. Bones and soft tissues: There are degenerative changes in the spine. There are right-sided rib deformities, likely secondary to prior trauma. DIVISION OF RADIOLOGY Provider, Jairo koch [facility] - 05/11/2022 * * *Final Report* * * DATE OF EXAM: May 11 2022 9:09AM WOX 5291 - XR CHEST 2V FRONTAL/LAT / PROCEDURE REASON: Acute cough * * * * Physician Interpretation * * * * EXAMINATION: CHEST RADIOGRAPH (2 VIEW FRONTAL & LATERAL) CLINICAL HISTORY: Acute cough MQ: XC2_6 EXAM DATE/TIME: 05/11/2022 9:09 AM COMPARISON: Chest x-ray on 02/23/2022. RESULT: Lines, tubes, and devices: None. Lungs and pleura: Small lung volume due to inadequate inspiration. Questionable hazy opacities overlying the right upper lung. There is persistent eventration of the right hemidiaphragm, with associated lower lung atelectasis. No pleural effusions or pneumothorax. Cardiomediastinal silhouette: Stable cardiac silhouette, with tortuosity of the thoracic aorta. Bones and soft tissues: There are degenerative changes in the spine. There are right-sided rib deformities, likely secondary to prior trauma. IMPRESSION IMPRESSION: Questionable hazy opacities overlying the right upper lung. Consider follow-up. Hypnotherapist: [facility] Transcribe Date/Time: May 11 2022 9:14A Dictated by : RONI VAIL MD This examination was interpreted and the report reviewed and electronically signed by: RONI VAIL MD on May 11 2022 9:16AM EST [facility] Radiology Study observation (narrative) [facility] XR Chest PA and LateralOrder ed By: Ccf Provider on 05-11-2022 [facility] Eosinophils Auto (Bld) [#/Vo l]on 04-10-2022 Eosinophils (Bld) [#/Vol] 0.05 10*3/uL <0.46 k/uL [facility] LUNG VOLUMESon 03-11-2022 [facility] NITRIC OXIDE, EXHALEDon 02-28 [facility] XR CHEST 2V FRONTAL/LATon [facility] XR Chest PA and Lateralon IMPRESSION: No acute radiographic abnormality. Hypnotherapist: TASHI Transcribe Date/Time: Feb 23 2022 12:14P Dictated by : BLANCO TIMMONS MD This examination was interpreted and the report reviewed and electronically signed by: BLANCO TIMMONS MD on Feb 23 2022 12:17PM [facility] DIVISION OF RADIOLOGY * * *Final Report* * * DATE OF EXAM: Feb 23 2022 12:03PM WOX 5291 - XR CHEST 2V FRONTAL/LAT / PROCEDURE REASON: SOB (shortness of breath) * * * * Physician Interpretation * * * * EXAMINATION: CHEST RADIOGRAPH (2 VIEW FRONTAL & [...] Bones and soft tissues: Mild degenerative changes. DIVISION OF RADIOLOGY Provider, [facility] - 02/23/2022 * * *Final Report* * * DATE OF EXAM: Feb 23 2022 12:03PM WOX 5291 - XR CHEST 2V FRONTAL/LAT / PROCEDURE REASON: SOB (shortness of breath) * * * * Physician Interpretation * * * * EXAMINATION: CHEST RADIOGRAPH (2 VIEW FRONTAL & [...] Bones and soft tissues: Mild degenerative changes. IMPRESSION IMPRESSION: No acute radiographic abnormality. Hypnotherapist: [facility] Transcribe Date/Time: Feb 23 2022 12:14P Dictated by : BLANCO TIMMONS MD This examination was interpreted and the report reviewed and electronically signed by: BLANCO TIMMONS MD on Feb 23 2022 12:17PM EST [facility] Radiology Study observation (narrative) [facility] XR Chest PA and LateralOrder ed By: Ccf Provider on 02-23-2022 [facility] CBC panel Auto (Bld)on 09-04 Erythrocyte distribution width (RBC) [Ratio] 13.1 % 11.5 - 15.0 % [facility] Hematocrit (Bld) [Volume fraction] 45.4 % 39.0 - 51.0 % [facility] Hemoglobin (Bld) [Mass/Vol] 15.6 g/dL 13.0 - 17.0 g/dL [facility] MCH (RBC) [Entitic mass] 31.0 pg 26.0 - 34.0 pg [facility] MCHC (RBC) [Mass/Vol] 34.4 g/dL 30.5 - 36.0 g/dL [facility] MCV (RBC) [Entitic vol] 90.3 fL 80.0 - 100.0 fL [facility] Nucleated RBC (Bld) [#/Vol] 10*3/uL <0.01 k/uL [facility] Platelet mean volume (Bld) [Entitic vol] 8.8 fL Low 9.0 - 12.7 fL [facility] Platelets (Bld) [#/Vol] 151 10*3/uL 150 - 400 k/uL [facility] RBC (Bld) [#/Vol] 5.03 10*6/uL 4.20 - 6.0 0 m/uL [facility] WBC (Bld) [#/Vol] 6.87 10*3/uL 3.70 - 11. 00 k/uL [facility] Comprehensive metabolic 2000 panelon 09-04-2021 Albumin [Mass/Vol] 4.3 g/dL 3.9 - 4.9 g/dL [facility] ALP [Catalytic activity/Vol] 103 U/L 38 - 113 U/L [facility] ALT [Catalytic activity/Vol] 19 U/L 10 - 54 U/L [facility] Anion gap [Moles/Vol] 10 mmol/L 9 - 18 mmol/L [facility] AST [Catalytic activity/Vol] 23 U/L 14 - 40 U/L [facility] Bilirubin [Mass/Vol] 0.6 mg/dL 0.2 - 1 .3 mg/dL [facility] Calcium [Mass/Vol] 8.8 mg/dL 8.5 - 10. 2 mg/dL [facility] Chloride [Moles/Vol] 103 mmol/L 97 - 10 5 mmol/L [facility] CO2 [Moles/Vol] 24 mmol/L 22 - 30 mmol/L [facility] Creatinine [Mass/Vol] 0.96 mg/dL 0.73 - 1.22 mg/dL [facility] Estimated Glomerular Filtration Rate 81 mL/min/1.73m >=60 mL/min/1.73m [facility] Glucose [Mass/Vol] 119 mg/dL High 74 - 99 mg/dL [facility] Potassium [Moles/Vol] 4.5 mmol/L 3.7 - 5.1 mmol/L [facility] Protein [Mass/Vol] 6.4 g/dL 6.3 - 8.0 g/dL [facility] Sodium [Moles/Vol] 137 mmol/L 136 - 144 mmol/L [facility] Urea nitrogen [Mass/Vol] 14 mg/dL 9 - 24 mg/dL [facility] CNNURSEon 08-16-2020 [facility] Nurse Visit (COVAMD) RICKVALENTINA L ([id number]) 1945 M Date Time Provider Department 08/16/20 ENRIQUETA SHEPARD (ACOUSTICS TEACHER) JOSE L During your visit today, we recorded the following information about you: Allergies As of Date: 08/16/2020 Noted Allergy Reaction environmental [Other] 02/26/2005 5 - Intolerance Date Reviewed: 07/26/2020 Reviewed by: Deirdre ([facility]) Rodrigue Aguirre - Fully Assessed Order(s):[facility] SARS-COV-2 VACCINE 2D DOSE APPT [[id number]] Order #: [id number] Prescriptions as of 08/16/2020 Sig: SUCRALFATE 1 GRAM TABLET Take 1 tablet by mouth four t* OMEPRAZOLE 20 MG CAPSULE,LENARD* Take 1 capsule by mouth daily* MAPROTILINE 75 MG TABLET Take 150 mg by mouth daily at* ASMANEX TWISTHALER 110 MCG/AC* USE 1 INHALATION INSTRUCTE* POLYETHYLENE GLYCOL 3350 17 G* Take 1 Packet by mouth twice * LISINOPRIL 5 MG TABLET Take 1 tablet by mouth once d* METRONIDAZOLE 0.75 % TOPICAL * Apply thin layer to entire Ro* Problem List As Of Date 08/16/2020 Noted Resolved Abdominal pain, generalized [R10.84] 03/19/2006 06/12/2014 Shortness of breath [R06.02] 09/01/2006 06/12/2014 Benign non-nodular prostatic hyperplasia with l*07/05/2007 ADJUSTMENT DISORDER WITH DEPRESSED MOOD [F43.21]08/28/2008 Neoplasm of uncertain behavior of skin [D48.5] 01/23/2009 06/12/2014 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 *03/25/2009 06/12/2014 History of Malignant Neoplasm of Skin: BCC (nec*07/16/2009 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] 06/05/2010 Eczematous Dermatitis: ?Psoriasiform Eczema [L3*06/09/2011 Achilles tendinitis [M76.60] 10/04/2012 04/17/2015 Degeneration of lumbar or lumbosacral intervert*11/16/2012 Anxiety [F41.9] 01/15/2015 Vocal cord dysfunction [J38.3] 2016 Shortness of breath [R06.02] 02/12/2016 06/29/2016 Internal hemorrhoids [K64.8] 01/11/2018 Encounter Status:[facility] CNNURSEon 07-26-2020 CNNURSE Nurse Visit (COVAMD) VALENTINA CABRERA ([id number]) 1945 M Date Time Provider Department 07/26/20 1:45 PM COVID VACCINE AUALEXI LYONSD During your visit today, we recorded the following information about you: Referring Provider: JOSHUA CHAMPAGNE [[id number]] Allergies As of Date: 07/26/2020 Noted Allergy Reaction environmental [Other] 02/26/2005 5 - Intolerance Date Reviewed: 07/26/2020 Reviewed by: Deirdre ([facility]) Rodrigue Aguirre - Fully Assessed Primary Visit Diagnosis:Need for COVID-19 vaccine [Z23] Order(s):SARS-COVID VACCINE 1ST DOSE APPT [[id number]] Order #: [id number] [employer] COVID-19 VACCINE [[id number]] Order #: [id number] PFIZER SARS-COV-2 VACCINE 2D DOSE APPT [[id number]] Order #: [id number] FUTURE Prescriptions as of 07/26/2020 Sig: ENTERIC CONTRAST (RADIOLOGY P* For CT ABD WO IVCON order Adm* SUCRALFATE 1 GRAM TABLET Take 1 tablet by mouth four t* OMEPRAZOLE 20 MG CAPSULE,LENARD* Take 1 capsule by mouth daily* MAPROTILINE 75 MG TABLET Take 150 mg by mouth daily at* ASMANEX TWISTHALER 110 MCG/AC* USE 1 INHALATION INSTRUCTE* POLYETHYLENE GLYCOL 3350 17 G* Take 1 Packet by mouth twice * LISINOPRIL 5 MG TABLET Take 1 tablet by mouth once d* METRONIDAZOLE 0.75 % TOPICAL * Apply thin layer to entire Ro* Problem List As Of Date 07/26/2020 Noted Resolved Abdominal pain, generalized [R10.84] 03/19/2006 06/12/2014 Shortness of breath [R06.02] 09/01/2006 06/12/2014 Benign non-nodular prostatic hyperplasia with l*07/05/2007 ADJUSTMENT DISORDER WITH DEPRESSED MOOD [F43.21]08/28/2008 Neoplasm of uncertain behavior of skin [D48.5] 01/23/2009 06/12/2014 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 *03/25/2009 06/12/2014 History of Malignant Neoplasm of Skin: BCC (nec*07/16/2009 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] 06/05/2010 Eczematous Dermatitis: ?Psoriasiform Eczema [L3*06/09/2011 Achilles tendinitis [M76.60] 10/04/2012 04/17/2015 Degeneration of lumbar or lumbosacral intervert*11/16/2012 Anxiety [F41.9] 01/15/2015 Vocal cord dysfunction [J38.3] 2016 Shortness of breath [R06.02] 02/12/2016 06/29/2016 Internal hemorrhoids [K64.8] 01/11/2018 Encounter Status:Closed by ENRIQUETA SHEPARD on 07/27/20 [facility] Vital Signs Date Time Vital Sign Value Performing Clinician Faci lity 01-29-2024 12:36-0400 Body mass index (BMI) [Ratio] 30.44 kg/m2 Krislyn Aberegg PA Work Phone: [facility] 01-29-2024 12:36-0400 Body temperature 98.4 [degF] Krislyn Aberegg PA Work Phone: [facility] 01-29-2024 12:36-0400 Body weight 88.6 kg Krislyn Aberegg PA Work Phone: [facility] 01-29-2024 12:36-0400 Diastolic blood pressure 72 mm[Hg] Krislyn Aberegg PA Work Phone: [facility] 01-29-2024 12:36-0400 Heart rate 96 /min Krislyn Aberegg PA Work Phone: [facility] 01-29-2024 12:36-0400 Respiratory rate 18 /min Krislyn Aberegg PA Work Phone: [facility] 01-29-2024 12:36-0400 SaO2% (BldA) [Mass fraction] 95 % Krislyn Aberegg PA Work Phone: [facility] 01-29-2024 12:36-0400 Systolic blood pressure 138 mm[Hg] Fer PORTER Work Phone: [facility] 11-09-2023 10:16-0400 Body mass index (BMI) [Ratio] 29.77 kg/m2 Genie Bustamante MD Work Phone: [facility] 11-09-2023 10:16-0400 Body weight 86.64 kg Genie Bustamante MD Work Phone: [facility] 11-09-2023 10:16-0400 Heart rate 83 /min Genie Bustamante MD Work Phone: [facility] 11-09-2023 10:16-0400 Respiratory rate 15 /min Genie Bustamante MD Work Phone: [facility] 11-09-2023 10:16-0400 SaO2% (BldA) [Mass fraction] 98 % Genie Bustamante MD Work Phone: [facility] 04-19-2023 10:57-0500 Body height 170.6 cm Pulm Wstr Work Phone: [facility] 03-09-2023 09:35-0400 Body weight 88.95 kg Binu Solis MD Work Phone: [facility] 03-09-2023 09:35-0400 Diastolic blood pressure 78 mm[Hg] Binu Solis MD Work Phone: [facility] 03-09-2023 09:35-0400 Heart rate 88 /min Binu Solis MD Work Phone: [facility] 03-09-2023 09:35-0400 Respiratory rate 16 /min Binu Solis MD Work Phone: [facility] 03-09-2023 09:35-0400 Systolic blood pressure 120 mm[Hg] Binu Solis MD Work Phone: [facility] 01-21-2023 09:19-0400 Body height 175.3 cm Becky Fierro PA-C Work Phone: [facility] 01-21-2023 09:19-0400 Body weight 89.18 kg Becky Rhiannon PA-C Work Phone: [facility] 01-21-2023 09:19-0400 Diastolic blood pressure 70 mm[Hg] Becky Rhiannon PA-C Work Phone: [facility] 01-21-2023 09:19-0400 Heart rate 90 /min Becky Rhiannon PA-C Work Phone: [facility] 01-21-2023 09:19-0400 Respiratory rate 14 /min Becky Rhiannon PA-C Work Phone: [facility] 01-21-2023 09:190400 SaO2% (BldA) [Mass fraction] 94 % Becky Rhiannon PA-C Work Phone: [facility] 01-21-2023 09:19-0400 Systolic blood pressure 116 mm[Hg] Becky Rhiannon PA-C Work Phone: [facility] 12-10-2022 08:43-0400 Body weight 88.91 kg Becky Rhiannon PA-C Work Phone: [facility] 09-08-2022 09:14-0400 Body weight 87.09 kg Binu Solis MD Work Phone: [facility] 09-08-2022 09:14-0400 Diastolic blood pressure 78 mm[Hg] Binu Solis MD Work Phone: [facility] 09-08-2022 09:14-0400 Heart rate 68 /min Binu Solis MD Work Phone: [facility] 09-08-2022 09:14-0400 Respiratory rate 16 /min Binu Solis MD Work Phone: [facility] 09-08-2022 09:14-0400 Systolic blood pressure 120 mm[Hg] Binu Solis MD Work Phone: [facility] 08-19-2022 09:02-0400 Body temperature 96.91 [degF] Mich Del [employer]UUM DRUM DRIER OPERATOR.ACOUSTICS TEACHER Work Phone: [facility] 08-19-2022 09:02-0400 Body weight 88.91 kg Mich Mathis VACUUM [employer]UM DRIER OPERATOR.ACOUSTICS TEACHER Work Phone: [facility] 08-19-2022 09:02-0400 Diastolic blood pressure 76 mm[Hg] Mich Mathis VACUUM DRUM DRIER OPERATOR.ACOUSTICS TEACHER Work Phone: [facility] 08-19-2022 09:02-0400 Heart rate 118 /min Mich Del V[employer]UUM DRUM DRIER OPERATOR.ACOUSTICS TEACHER Work Phone: [facility] 08-19-2022 09:02-0400 Respiratory rate 18 /min Mich Mathis VACUUM DRUM DRIER OPERATOR.ACOUSTICS TEACHER Work Phone: [facility] 08-19-2022 09:02-0400 SaO2% (BldA) [Mass fraction] 94 % Mich Mathis VACU[employer]UM DRIER OPERATOR.ACOUSTICS TEACHER Work Phone: [facility] 08-19-2022 09:02-0400 Systolic blood pressure 124 mm[Hg] Mich Mathis VACUUM DRUM DRIER OPERATOR.ACOUSTICS TEACHER Work Phone: [facility] 07-09-2022 10:16-0500 Body weight 89.36 kg Genie Bustamante MD Work Phone: [facility] 07-09-2022 10:16-0500 Diastolic blood pressure 65 mm[Hg] Genie Bustamante MD Work Phone: [facility] 07-09-2022 10:16-0500 Heart rate 92 /min Genie Bustamante MD Work Phone: [facility] 07-09-2022 10:16-0500 SaO2% (BldA) [Mass fraction] 94 % Genie Bustamante MD Work Phone: [facility] 07-09-2022 10:16-0500 Systolic blood pressure 126 mm[Hg] Genie Bustamante MD Work Phone: [facility] 05-13-2022 08:47-0500 Body weight 88.45 kg Betty Barraza VACU[employer]UM DRIER OPERATOR.ACOUSTICS TEACHER Work Phone: [facility] 05-13-2022 08:47-0500 Diastolic blood pressure 70 mm[Hg] Betty Tannhof VACUUM [employer]UM DRIER OPERATOR.ACOUSTICS TEACHER Work Phone: [facility] 05-13-2022 08:47-0500 Heart rate 98 /min Betty Tannhof VACUUM [employer]UM DRIER OPERATOR.ACOUSTICS TEACHER Work Phone: [facility] 05-13-2022 08:47-0500 Respiratory rate 16 /min Betty Tannhof VACUUM [employer]UM DRIER OPERATOR.ACOUSTICS TEACHER Work Phone: [facility] 05-13-2022 08:47-0500 SaO2% (BldA) [Mass fraction] 97 % Betty Tannhof VACUUM [employer]UM DRIER OPERATOR.ACOUSTICS TEACHER Work Phone: [facility] 05-13-2022 08:47-0500 Systolic blood pressure 114 mm[Hg] Betty Tannhof VACUUM [employer]UM DRIER OPERATOR.ACOUSTICS TEACHER Work Phone: [facility] 05-10-2022 09:30-0500 Body temperature 98.29 [degF] Moi Pendlebury VACUUM DRUM DRIER OPERATOR.ACOUSTICS TEACHER Work Phone: [facility] 05-10-2022 09:30-0500 Body weight 88.45 kg Moi Pendlebury VACUUM DRUM DRIER OPERATOR.ACOUSTICS TEACHER Work Phone: [facility] 05-10-2022 09:30-0500 Diastolic blood pressure 78 mm[Hg] Moi Pendlebury VACUUM DRUM DRIER OPERATOR.ACOUSTICS TEACHER Work Phone: [facility] 05-10-2022 09:30-0500 Heart rate 108 /min Moi Pendlebury VACUUM DRUM DRIER OPERATOR.ACOUSTICS TEACHER Work Phone: [facility] 05-10-2022 09:30-0500 Respiratory rate 18 /min Moi Pendlebury VACUUM DRUM DRIER OPERATOR.ACOUSTICS TEACHER Work Phone: [facility] 05-10-2022 09:30-0500 SaO2% (BldA) [Mass fraction] 95 % Moi Pendlebury VACUUM DRUM DRIER OPERATOR.ACOUSTICS TEACHER Work Phone: [facility] 05-10-2022 09:30-0500 Systolic blood pressure 124 mm[Hg] Moi Pendlebury VACUUM DRUM DRIER OPERATOR.ACOUSTICS TEACHER Work Phone: [facility] 05-03-2022 12:22-0500 Body temperature 97.2 [degF] Camila Comer APRN.ACOUSTICS TEACHER Work Phone: [facility] 05-03-2022 12:22-0500 Body weight 79.56 kg Camila Comer APRN.ACOUSTICS TEACHER Work Phone: [facility] 05-03-2022 12:22-0500 Diastolic blood pressure 76 mm[Hg] Camila Comer APRN.ACOUSTICS TEACHER Work Phone: [facility] 05-03-2022 12:22-0500 Heart rate 88 /min Camila Comer APRN.ACOUSTICS TEACHER Work Phone: [facility] 05-03-2022 12:22-0500 Respiratory rate 16 /min Camila Comer APRN.ACOUSTICS TEACHER Work Phone: [facility] 05-03-2022 12:22-0500 SaO2% (BldA) [Mass fraction] 95 % Camila Comer APRN.ACOUSTICS TEACHER Work Phone: [facility] 05-03-2022 12:22-0500 Systolic blood pressure 130 mm[Hg] Camila Comer APRN.ACOUSTICS TEACHER Work Phone: [facility] 04-10-2022 08:50-0500 Body weight 88 kg Becky Fierro PA-C Work Phone: [facility] 03-11-2022 13:14-0400 Body weight 88.36 kg Binu Solis MD Work Phone: [facility] 03-11-2022 13:14-0400 Diastolic blood pressure 72 mm[Hg] Binu Solis MD Work Phone: [facility] 03-11-2022 13:14-0400 Heart rate 80 /min Binu Solis MD Work Phone: [facility] 03-11-2022 13:14-0400 Respiratory rate 16 /min Binu Solis MD Work Phone: [facility] 03-11-2022 13:14-0400 SaO2% (BldA) [Mass fraction] 95 % Binu Solis MD Work Phone: [facility] 03-11-2022 13:14-0400 Systolic blood pressure 118 mm[Hg] Binu Solis MD Work Phone: [facility] 03-11-2022 09:11-0400 Body height 172.5 cm Respiratory Wstr Work Phone: [facility] 03-11-2022 09:11-0400 Body weight 88 kg Respiratory Wstr Work Phone: [facility] 02-27-2022 13:20-0400 Body weight 87.09 kg Genie Bustamante MD Work Phone: [facility] 02-27-2022 13:20-0400 Diastolic blood pressure 78 mm[Hg] Genie Bustamante MD Work Phone: [facility] 02-27-2022 13:20-0400 Heart rate 83 /min Genie Bustamante MD Work Phone: [facility] 02-27-2022 13:20-0400 Respiratory rate 16 /min Genie Bustamante MD Work Phone: [facility] 02-27-2022 13:20-0400 SaO2% (BldA) [Mass fraction] 98 % Genie Bustamante MD Work Phone: [facility] 02-27-2022 13:20-0400 Systolic blood pressure 138 mm[Hg] Genie Bustamante MD Work Phone: [facility] 02-23-2022 11:31-0400 Body weight 87.09 kg Betty Barraza VACUUM DRUM DRIER OPERATOR.ACOUSTICS TEACHER Work Phone: [facility] 02-23-2022 11:31-0400 Diastolic blood pressure 70 mm[Hg] Betty Barraza VACUUM DRUM DRIER OPERATOR.ACOUSTICS TEACHER Work Phone: [facility] 02-23-2022 11:31-0400 Heart rate 94 /min Betty Barraza VACUUM DRUM DRIER OPERATOR.ACOUSTICS TEACHER Work Phone: [facility] 02-23-2022 11:31-0400 Respiratory rate 16 /min Betty Alvarezhof VACUUM DRUM DRIER OPERATOR.ACOUSTICS TEACHER Work Phone: [facility] 02-23-2022 11:31-0400 SaO2% (BldA) [Mass fraction] 90 % Betty Alvarezhof VACUUM DRUM DRIER OPERATOR.ACOUSTICS TEACHER Work Phone: [facility] 02-23-2022 11:31-0400 Systolic blood pressure 110 mm[Hg] Betty Alvarezhof VACUUM DRUM DRIER OPERATOR.ACOUSTICS TEACHER Work Phone: [facility] 02-15-2022 11:10-0400 Body temperature 97.2 [degF] Camila Comer VACUUM DRUM DRIER OPERATOR.ACOUSTICS TEACHER Work Phone: [facility] 02-15-2022 11:10-0400 Body weight 87.09 kg Camila Comer VACUUM DRUM DRIER OPERATOR.ACOUSTICS TEACHER Work Phone: [facility] 02-15-2022 11:10-0400 Diastolic blood pressure 68 mm[Hg] Camila Comer VACUUM DRUM DRIER OPERATOR.ACOUSTICS TEACHER Work Phone: [facility] 02-15-2022 11:10-0400 Heart rate 95 /min Camila Comer VACUUM DRUM DRIER OPERATOR.ACOUSTICS TEACHER Work Phone: [facility] 02-15-2022 11:10-0400 Respiratory rate 18 /min Camila Comer VACUUM DRUM DRIER OPERATOR.ACOUSTICS TEACHER Work Phone: [facility] 02-15-2022 11:10-0400 SaO2% (BldA) [Mass fraction] 95 % Camila Comer VACUUM DRUM DRIER OPERATOR.ACOUSTICS TEACHER Work Phone: [facility] 02-15-2022 11:10-0400 Systolic blood pressure 106 mm[Hg] Camila Comer VACUUM DRUM DRIER OPERATOR.ACOUSTICS TEACHER Work Phone: [facility] 02-06-2022 09:11-0400 Body weight 88.45 kg Betty Barraza VACUUM DRUM DRIER OPERATOR.ACOUSTICS TEACHER Work Phone: [facility] 02-06-2022 09:11-0400 Diastolic blood pressure 68 mm[Hg] Betty Alvarezhof VACUUM DRUM DRIER OPERATOR.ACOUSTICS TEACHER Work Phone: [facility] 02-06-2022 09:11-0400 Heart rate 87 /min Betty Alvarezhof VACUUM DRUM DRIER OPERATOR.ACOUSTICS TEACHER Work Phone: [facility] 02-06-2022 09:11-0400 Respiratory rate 16 /min Bettypatel Alvarezhof VACUUM DRUM DRIER OPERATOR.ACOUSTICS TEACHER Work Phone: [facility] 02-06-2022 09:11-0400 SaO2% (BldA) [Mass fraction] 96 % Betty Alvarezhof VACUUM DRUM DRIER OPERATOR.ACOUSTICS TEACHER Work Phone: [facility] 02-06-2022 09:11-0400 Systolic blood pressure 116 mm[Hg] Betty Alvarezhof VACUUM DRUM DRIER OPERATOR.ACOUSTICS TEACHER Work Phone: [facility] 12-03-2021 10:25-0400 Body weight 88.45 kg Berkley Rajguru VACUUM DRUM DRIER OPERATOR.ACOUSTICS TEACHER Work Phone: [facility] 12-03-2021 10:25-0400 Diastolic blood pressure 58 mm[Hg] Berkley Rajguru VACUUM DRUM DRIER OPERATOR.ACOUSTICS TEACHER Work Phone: [facility] 12-03-2021 10:25-0400 Systolic blood pressure 122 mm[Hg] Berkley Rajguru VACUUM DRUM DRIER OPERATOR.ACOUSTICS TEACHER Work Phone: [facility] 09-03-2021 12:49-0400 Body weight 86.73 kg Binu Solis MD Work Phone: [facility] 09-03-2021 12:49-0400 Diastolic blood pressure 72 mm[Hg] Binu Solis MD Work Phone: [facility] 09-03-2021 12:49-0400 Heart rate 68 /min Binu Solis MD Work Phone: [facility] 09-03-2021 12:49-0400 Respiratory rate 14 /min Binu Solis MD Work Phone: [facility] 09-03-2021 12:49-0400 Systolic blood pressure 120 mm[Hg] Binu Solis MD Work Phone: [facility] 08-27-2021 10:53-0400 Body weight 88 kg Berkley Rajmarlenaru VACUUM DRUM DRIER OPERATOR.ACOUSTICS TEACHER Work Phone: [facility] 08-27-2021 10:53-0400 Diastolic blood pressure 66 mm[Hg] Berkley Rajguru VACUUM DRUM DRIER OPERATOR.ACOUSTICS TEACHER Work Phone: [facility] 08-27-2021 10:53-0400 Heart rate 68 /min Berkley Rajguru VACUUM DRUM DRIER OPERATOR.ACOUSTICS TEACHER Work Phone: [facility] 08-27-2021 10:53-0400 Systolic blood pressure 122 mm[Hg] Berkley Rajguru VACUUM DRUM DRIER OPERATOR.ACOUSTICS TEACHER Work Phone: [facility] Encounters Encounter Date Encounter Type Care Provider Facility Start: 03-01-2024 End: 03-01-2024 ambulatory Genie Bustamante MD Work Phone: Pulmonary Medicine Comment on above: TRELEGY ellipta Start: 02-23-2024 End: 02-23-2024 Subsequent hospital visit by physician [facility] Work Phone: Radiology Comment on above: Acute cough [R05.1] Start: 02-23-2024 End: 02-23-2024 Patient encounter procedure Becky Fierro PA-C Work Phone: Pulmonary Medicine Comment on above: Subacute cough (Prim dede Dx); History of COVID-19; Mild persistent asthma without complication; Seasonal allergies; Gastroesophageal reflux disease, unspecified whether esophagitis present; Tachycardia Start: 02-15-2024 End: 02-16-2024 ambulatory Genie Bustamante MD Work Phone: Pulmonary Medicine Comment on above: Covid 19 vaccines Start: 01-29-2024 End: 01-29-2024 ambulatory TRE CHI RICKY Facility:[facility] Start: 01-29-2024 End: 01-29-2024 Patient encounter procedure Fer PORTER Work Phone: [facility] Comment on above: URI, acute (Primary Dx) Start: 11-09-2023 End: 11-09-2023 ambulatory TRE CHI RICKY Facility:[facility] Start: 11-09-2023 End: 11-09-2023 Patient encounter procedure Genie Bustamante MD Work Phone: Pulmonary Medicine Comment on above: Mild persistent asth ma without complication (Primary Dx); Seasonal allergies Start: 07-02-2023 Telephone encounter Becky Fierro PA-C Work Phone: Pulmonary Medicine Comment on above: Medication Problem Start: 05-03-2023 Refill Betty Barraza APRN.ACOUSTICS TEACHER Work Phone: [facility] Comment on above: Refill Request Start: 04-19-2023 End: 04-19-2023 Patient encounter procedure [facility] Work Phone: [facility] Start: 04-19-2023 End: 04-19-2023 ambulatory [facility] Work Phone: [facility] Comment on above: Spirometry Start: 03-09-2023 End: 03-09-2023 [facility] Start: 03-09-2023 End: 03-09-2023 Patient encounter procedure Binu Solis MD Work Phone: [facility] Comment on above: Essential hypertensi on, benign (Primary Dx); Moderate persistent asthma without complication; Benign non-nodular prostatic hyperplasia with lower urinary tract symptoms; Recurrent major depressive disorder, in full remission (HCC); Anxiety; Low platelet count (HCC) Start: 03-01-2023 End: 03-01-2023 [facility] Start: 03-01-2023 End: 03-01-2023 Subsequent hospital visit by physician [facility] Work Phone: Nuclear Medicine Comment on above: PERSON (dyspnea on exer tion) [R06.09] Start: 01-21-2023 End: 01-21-2023 Patient encounter procedure Becky Fierro PA-C Work Phone: Pulmonary Medicine Comment on above: Cough variant asthma (Primary Dx); Gastroesophageal reflux disease, unspecified whether esophagitis present; History of environmental allergies; History of COVID-19 Start: 12-23-2022 ambulatory Becky Alcala Harsha greco PA-C Work Phone: Pulmonary Medicine Comment on above: results Start: 12-23-2022 E-mail encounter keren m caregiver Becky Alcala Rhiannon PA-C Work Phone: [facility] [employer] Start: 12-11-2022 Telephone encounter Becky Alcala Rhiannon PA-C Work Phone: Pulmonary Medicine Comment on above: Medication Problem ( Not sure of increase of dosage) Start: 12-10-2022 End: 12-10-2022 ambulatory [facility] Work Phone: [facility] Comment on above: Spirometry Start: 12-10-2022 End: 12-10-2022 Patient encounter procedure [facility] Work Phone: [facility] Comment on above: Cough variant asthma (Primary Dx); SOB (shortness of breath); History of environmental allergies Start: 12-06-2022 ambulatory Genie Bustamante MD Work Phone: Pulmonary Medicine Comment on above: Medication question Start: 09-18-2022 ambulatory Becky Alcala Harsha greco PA-C Work Phone: Pulmonary Medicine Comment on above: Albuterol Inhaler Start: 09-08-2022 End: 09-08-2022 Patient encounter procedure Binu Solis MD Work Phone: [facility] Comment on above: Essential hypertensi on, benign (Primary Dx); Recurrent major depressive disorder, in full remission (HCC); Benign non-nodular prostatic hyperplasia with lower urinary tract symptoms; Moderate persistent asthma without complication; Musculoskeletal pain; Thrombocyte disorder (HCC); Elevated glucose Start: 08-24-2022 Refill Becky Alcala Harsha greco PA-C Work Phone: Pulmonary Medicine Comment on above: Refill Request Start: 08-19-2022 End: 08-19-2022 Subsequent hospital visit by physician Xr [facility] Work Phone: Radiology Comment on above: Rib pain on right si de [R07.81] Start: 08-19-2022 End: 08-19-2022 Patient encounter procedure Mich Mathis APRN.ACOUSTICS TEACHER Work Phone: [facility] Comment on above: Rib pain on right si de (Primary Dx) Start: 07-09-2022 End: 07-09-2022 Patient encounter procedure Genie Bustamante MD Work Phone: Pulmonary Medicine Comment on above: Cough variant asthma (Primary Dx) Start: 05-13-2022 End: 05-13-2022 Patient encounter procedure Betty Barraza APRN.ACOUSTICS TEACHER Work Phone: [facility] Comment on above: SOB (shortness of br eath) (Primary Dx); Acute cough; Moderate persistent asthma without complication Start: 05-11-2022 End: 05-11-2022 Subsequent hospital visit by physician [facility] Work Phone: Radiology Comment on above: Acute cough [R05.1] Start: 05-10-2022 End: 05-10-2022 Patient encounter procedure Moi Plummer VACUUM DRUM DRIER OPERATOR.ACOUSTICS TEACHER Work Phone: [facility] Comment on above: Viral illness (Prima ry Dx); Acute cough Start: 05-03-2022 End: 05-03-2022 Patient encounter procedure Camila Comer APRN.ACOUSTICS TEACHER Work Phone: [facility] Comment on above: URI, acute (Primary Dx); Rhinosinusitis Start: 04-30-2022 Telephone encounter Betty noyola VACUUM DRUM DRIER OPERATOR.ACOUSTICS TEACHER Work Phone: [facility] Comment on above: Results (Covid/Flu ) Start: 04-10-2022 End: 04-10-2022 Patient encounter procedure Becky Fierro PA-C Work Phone: Pulmonary Medicine Comment on above: Cough variant asthma (Primary Dx); SOB (shortness of breath); History of environmental allergies; History of COVID-19; Congenital eventration of diaphragm Start: 03-31-2022 ambulatory Genie Bustamante MD Work Phone: Pulmonary Medicine Comment on above: Hoarse raspy voice Start: 03-20-2022 Telephone encounter Binu key MD Work Phone: [address] [place] [address] Comment on above: Patient Question Start: 03-19-2022 Refill Mayur HILL RN.ACOUSTICS TEACHER Work Phone: [facility] Comment on above: Refill Request Start: 03-17-2022 ambulatory Genie Bustamante MD Work Phone: Pulmonary Medicine Comment on above: Mucinex Start: 03-16-2022 ambulatory Genie Bustamante MD Work Phone: Pulmonary Medicine Comment on above: Steroid Beta inhaler Start: 03-12-2022 ambulatory Genie Bustamante MD Work Phone: Pulmonary Medicine Comment on above: Flu and booster shot s Start: 03-11-2022 End: 03-11-2022 ambulatory [facility] Work Phone: Pulmonary Medicine Comment on above: Spirometry Question about twist haler Start: 03-11-2022 End: 03-11-2022 Patient encounter procedure [facility] The[facility] Work Phone: [facility] Comment on above: Essential hypertensi on, benign (Primary Dx); Recurrent major depressive disorder, in full remission (HCC); Benign non-nodular prostatic hyperplasia with lower urinary tract symptoms; SOB (shortness of breath); Fatigue, unspecified type; Thrombocyte disorder (HCC) Start: 02-27-2022 End: 02-27-2022 Patient encounter procedure Genie Bustamante MD Work Phone: Pulmonary Medicine Comment on above: SOB (shortness of br eath) (Primary Dx); Congenital eventration of diaphragm; History of environmental allergies; History of COVID-19 Start: 02-25-2022 Telephone encounter Betty nooyla APRN.ACOUSTICS TEACHER Work Phone: [facility] Comment on above: Results (Labs) Start: 02-23-2022 End: 02-23-2022 Subsequent hospital visit by physician [facility] Work Phone: Radiology Comment on above: SOB (shortness of br eath) [R06.02] Start: 02-23-2022 End: 02-23-2022 Patient encounter procedure Betty Barraza APRN.CNP Work Phone: [facility] Comment on above: SOB (shortness of br eath) (Primary Dx); Bronchitis; Fatigue, unspecified type Start: 02-16-2022 Telephone encounter Camila Comer APRN.CNP Work Phone: [facility] Comment on above: Results Start: 02-15-2022 End: 02-15-2022 Patient encounter procedure Camila Comer APRN.CNP Work Phone: [facility] Comment on above: At increased risk of exposure to COVID-19 virus (Primary Dx) Start: 02-06-2022 End: 02-06-2022 Patient encounter procedure Betty Barraza APRN.ACOUSTICS TEACHER Work Phone: [facility] Comment on above: Viral illness (Prima ry Dx); Acute cough Start: 12-03-2021 End: 12-03-2021 Patient encounter procedure Berkley Roque APRN.CNP Work Phone: Psychiatry Comment on above: Recurrent major depr essive disorder, in full remission (HCC) (Primary Dx) Start: 09-03-2021 End: 09-03-2021 Patient encounter procedure Binu Solis MD Work Phone: [facility] Comment on above: Essential hypertensi on, benign (Primary Dx); Encounter for hepatitis C screening test for low risk patient; Benign non-nodular prostatic hyperplasia with lower urinary tract symptoms; Recurrent major depressive disorder, in full remission (HCC) Start: 08-27-2021 End: 08-27-2021 Patient encounter procedure Berkley Roque APRN.CNP Work Phone: Psychiatry Comment on above: Recurrent major depr essive disorder, in full remission (HCC) (Primary Dx) Procedures Date Procedure Procedure Detail Performing Clinician Start: 02-23-2024 Radiologic exam ches t 2 views Becky Fierro PA-C Work Phone: Start: 04-19-2023 Spmtry w/vc expirato ry lindsay w/wo mxml vol vntj Becky Fierro PA-C Work Phone: Start: 04-19-2023 Unlisted pulmonary service/procedure Becky Cari Fierro PA-C Work Phone: Start: 03-01-2023 Myocardial spect mul tiple studies Binu Solis MD Work Phone: Start: 12-10-2022 Nitric oxide gas determination Becky Fierro PA-C Work Phone: Start: 08-19-2022 Radex ribs uni w/pos teroant ch minimum 3 views Mich Mathis VACUUM DRUM DRIER OPERATOR.ACOUSTICS TEACHER Work Phone: Start: 05-11-2022 Radiologic exam ches t 2 views Moi Plummer VACUUM DRUM DRIER OPERATOR.ACOUSTICS TEACHER Work Phone: Start: 03-11-2022 Nitric oxide gas determination Genie Bustamante MD Work Phone: Start: 03-11-2022 Brncdilat rspse spmt ry pre&post-brncdilat admn Genie Bustamante MD Work Phone: Start: 02-23-2022 Radiologic exam ches t 2 views Betty Barraza VACUUM DRUM DRIER OPERATOR.ACOUSTICS TEACHER Work Phone: Plan of Treatment Date Care Activity Detail Author Start: 03-19-2033 Urine microalbumin profile DTa P,Tdap,Td Vaccine (5 - Td or Tdap) [facility] Start: 10-01-2026 Urine microalbumin profile [facility] Start: 09-08-2025 DIABETES SCREEN DIABETES SCREEN [facility] Start: 09-08-2025 Diabetes Screening Diabetes Screenin g [facility] Start: 05-11-2025 DIABETES SCREEN DIABETES SCREEN [facility] Start: 02-23-2025 DIABETES SCREEN DIABETES SCREEN [facility] Start: 02-22-2025 BP Controlled (<130/80) BP Con trolled (<130/80) [facility] Start: 11-08-2024 BP Controlled (<130/80) BP Con trolled (<130/80) [facility] Start: 09-04-2024 DIABETES SCREEN DIABETES SCREEN [facility] Start: 05-26-2024 End: 05-26-2024 Patient encounter procedure 05/26/2024 2:15 PM EST Office Visit Pulmonary Medicine [address] [place], [place] [phone] Genie Bustamante MD [address] [place] [phone] 6 month f/u Pulmonary Medicine Comment on above: 6 month f/u Start: 04-28-2024 DIABETES SCREEN DIABETES SCREEN [facility] Start: 04-19-2024 BP Controlled (<130/80) BP Con trolled (<130/80) [facility] Start: 03-09-2024 Annual PCP Team Crew Chief santy Disease Visit Annual PCP Team Chronic Disease Visit [facility] Start: 03-09-2024 BP Controlled (<130/80) BP Con trolled (<130/80) [facility] Start: 02-23-2024 End: 02-23-2024 Patient encounter procedure 02/23/2024 1:30 PM EDT Office Visit Pulmonary Medicine [address] [place], [place] [phone] Becky Fierro PA-C [address] [place], [place] [phone] Asthma/ post covid Pulmonary Medicine Comment on above: Asthma/ post covid Start: 01-30-2024 Covid-19 Vaccine ( season) Covid-19 Vaccine ( season) [facility] Start: 01-30-2024 Influenza vaccination Influenza Vacc ine (#1) [facility] Start: 01-29-2024 End: 02-12-2024 COVID & INFLUENZA A/B & RSV PCR, ROUTINE COVID & INFLUENZA A/B & RSV PCR, ROUTINE Microbiology Routine URI, acute Expected: 01/29/2024, Expires: 02/12/2024 [facility] Work Phone: Comment on above: Expected: 01/29/2024 , Expires: 02/12/2024 Start: 01-22-2024 BP CONTROLLED (<130/80) BP CON TROLLED (<130/80) [facility] Start: 01-05-2024 ANNUAL PCP TEAM [employer]IOFUELS PROCESSING TECHNICIAN SANTY DISEASE VISIT ANNUAL PCP TEAM CHRONIC DISEASE VISIT [facility] Start: 12-11-2023 BP CONTROLLED (<130/80) BP CON TROLLED (<130/80) [facility] Start: 09-09-2023 ANNUAL PCP TEAM BIOFUELS PROCESSING TECHNICIAN SANTY DISEASE VISIT ANNUAL PCP TEAM CHRONIC DISEASE VISIT [facility] Start: 09-09-2023 BP CONTROLLED (<130/80) BP CON TROLLED (<130/80) [facility] Start: 09-08-2023 End: 11-08-2023 CBC W Auto Differential panel - Blood CBC + DIFF Lab Routine Essential hypertension, benign Low platelet count (HCC) Expected: 09/08/2023 (Approximate), Expires: 11/08/2023 [facility] Work Phone: Comment on above: Expected: 09/08/2023 (Approximate), Expires: 11/08/2023 Start: 09-08-2023 End: 11-08-2023 Comprehensive metabolic 2000 panel - Serum or Plasma COMP METABOLIC PANEL Lab Routine Essential hypertension, benign Expected: 09/08/2023 (Approximate), Expires: 11/08/2023 [facility] Work Phone: Comment on above: Expected: 09/08/2023 (Approximate), Expires: 11/08/2023 Start: 09-08-2023 End: 11-08-2023 Lipid 1996 panel - Serum or Plasma LIPID PANEL BASIC Lab Routine Essential hypertension, benign Expected: 09/08/2023 (Approximate), Expires: 11/08/2023 [facility] Work Phone: Comment on above: Expected: 09/08/2023 (Approximate), Expires: 11/08/2023 Start: 08-20-2023 BP CONTROLLED (<130/80) BP CON TROLLED (<130/80) [facility] Start: 07-09-2023 BP CONTROLLED (<130/80) BP CON TROLLED (<130/80) [facility] Start: 05-31-2023 Advance Directive Discussion Advance Directive Discussion [facility] Start: 05-13-2023 ANNUAL PCP TEAM BIOFUELS PROCESSING TECHNICIAN SANTY DISEASE VISIT ANNUAL PCP TEAM CHRONIC DISEASE VISIT [facility] Start: 05-13-2023 BP CONTROLLED (<130/80) BP CON TROLLED (<130/80) [facility] Start: 05-10-2023 BP CONTROLLED (<130/80) BP CON TROLLED (<130/80) [facility] Start: 04-29-2023 ANNUAL PCP TEAM BIOFUELS PROCESSING TECHNICIAN SANTY DISEASE VISIT ANNUAL PCP TEAM CHRONIC DISEASE VISIT [facility] Start: 04-10-2023 BP CONTROLLED (<130/80) BP CON TROLLED (<130/80) [facility] Start: 03-11-2023 ANNUAL PCP TEAM BIOFUELS PROCESSING TECHNICIAN SANTY DISEASE VISIT ANNUAL PCP TEAM CHRONIC DISEASE VISIT [facility] Start: 03-11-2023 BP CONTROLLED (<130/80) BP CON TROLLED (<130/80) [facility] Start: 02-23-2023 ANNUAL PCP TEAM BIOFUELS PROCESSING TECHNICIAN SANTY DISEASE VISIT ANNUAL PCP TEAM CHRONIC DISEASE VISIT [facility] Start: 02-23-2023 BP CONTROLLED (<130/80) BP CON TROLLED (<130/80) [facility] Start: 02-15-2023 BP CONTROLLED (<130/80) BP CON TROLLED (<130/80) [facility] Start: 02-06-2023 ANNUAL PCP TEAM BIOFUELS PROCESSING TECHNICIAN SANTY DISEASE VISIT ANNUAL PCP TEAM CHRONIC DISEASE VISIT [facility] Start: 02-06-2023 BP CONTROLLED (<130/80) BP CON TROLLED (<130/80) [facility] Start: 01-29-2023 Influenza vaccination INFLUENZA (#1) [facility] Start: 12-03-2022 BP CONTROLLED (<130/80) BP CON TROLLED (<130/80) [facility] Start: 09-08-2022 End: 11-08-2022 Comprehensive metabolic 2000 panel - Serum or Plasma [facility] Work Phone: Comment on above: Expected: 09/08/2022 (Approximate), Expires: 11/08/2022 Start: 09-08-2022 End: 11-08-2022 Hemoglobin A1c in Blood [facility] Work Phone: Comment on above: Expected: 09/08/2022 , Expires: 11/08/2022 Start: 09-08-2022 End: 11-08-2022 PSA/PROSTSPECAG SCRN [facility] Work Phone: Comment on above: Expected: 09/08/2022 , Expires: 11/08/2022 Start: 09-03-2022 ANNUAL PCP TEAM BIOFUELS PROCESSING TECHNICIAN SANTY DISEASE VISIT ANNUAL PCP TEAM CHRONIC DISEASE VISIT [facility] Start: 09-03-2022 BP CONTROLLED (<130/80) BP CON TROLLED (<130/80) [facility] Start: 08-27-2022 BP CONTROLLED (<130/80) BP CON TROLLED (<130/80) [facility] Start: 07-14-2022 COVID-19 VACCINE (6 - Pfizer series) COVID-19 VACCINE (6 - Pfizer series) [facility] Start: 05-31-2022 ADVANCE DIRECTIVE DISCUSSION ADVANCE DIRECTIVE DISCUSSION [facility] Start: 05-13-2022 End: 07-13-2022 Natriuretic peptide.B prohormone N-Terminal [Mass/volume] in Serum or Plasma [facility] Work Phone: Comment on above: Expected: 05/13/2022 , Expires: 07/13/2022 Start: 05-10-2022 End: 05-24-2022 Influenza virus A and B RNA and SARS-CoV-2 (COVID-19) N gene panel - Respiratory specimen by GRACE with probe detection COVID WITH FLUA+B, ROUTINE Microbiology Routine Viral illness Expected: 05/10/2022, Expires: 05/24/2022 [facility] Work Phone: Comment on above: Expected: 05/10/2022 , Expires: 05/24/2022 Start: 05-05-2022 ANNUAL PCP TEAM BIOFUELS PROCESSING TECHNICIAN SANTY DISEASE VISIT ANNUAL PCP TEAM CHRONIC DISEASE VISIT [facility] Start: 04-10-2022 End: 06-10-2022 ALGN [facility] Work Phone: Comment on above: Expected: 04/10/2022 , Expires: 06/10/2022 Start: 04-10-2022 End: 06-10-2022 IgE [Units/volume] in Serum or Plasma [facility] Work Phone: Comment on above: Expected: 04/10/2022 , Expires: 06/10/2022 Start: 02-23-2022 End: 04-25-2022 CBC W Auto Differential panel - Blood [facility] Work Phone: Comment on above: Expected: 02/23/2022 , Expires: 04/25/2022 Start: 02-23-2022 End: 04-25-2022 Comprehensive metabolic 2000 panel - Serum or Plasma [facility] Work Phone: Comment on above: Expected: 02/23/2022 , Expires: 04/25/2022 Start: 02-23-2022 End: 04-25-2022 Fibrin D-dimer FEU [Mass/volume] in Platelet poor plasma [facility] Work Phone: Comment on above: Expected: 02/23/2022 , Expires: 04/25/2022 Start: 02-15-2022 End: 03-01-2022 Influenza virus A and B RNA and SARS-CoV-2 (COVID-19) N gene panel - Respiratory specimen by GRACE with probe detection COVID WITH FLUA+B, ROUTINE Microbiology Routine At increased risk of exposure to COVID-19 virus Expected: 02/15/2022, Expires: 03/01/2022 [facility] Work Phone: Comment on above: Expected: 02/15/2022 , Expires: 03/01/2022 Start: 01-29-2022 Influenza vaccination INFLUENZA (#1) [facility] Start: 10-24-2021 COVID-19 VACCINE (5 - Booster for Pfizer series) COVID-19 VACCINE (5 - Booster for Pfizer series) [facility] Start: 09-03-2021 End: 11-03-2021 Hepatitis C virus Ab [Presence] in Serum HEP C AB IA W/CONF SCRN Lab Routine Encounter for hepatitis C screening test for low risk patient Expected: 09/03/2021 (Approximate), Expires: 11/03/2021 [facility] Work Phone: Comment on above: Expected: 09/03/2021 (Approximate), Expires: 11/03/2021 Start: 09-03-2021 End: 11-03-2021 Prostate specific Ag [Mass/volume] in Serum or Plasma PSA/PROSTSPECAG DIAG Lab Routine Benign non-nodular prostatic hyperplasia with lower urinary tract symptoms Expected: 09/03/2021 (Approximate), Expires: 11/03/2021 [facility] Work Phone: Comment on above: Expected: 09/03/2021 (Approximate), Expires: 11/03/2021 Start: 05-31-2021 ADVANCE DIRECTIVE DISCUSSION ADVANCE DIRECTIVE DISCUSSION [facility] Start: 2004 RSV Vaccine (1 - 1-d ose 60+ series) RSV Vaccine (1 - 1-dose 60+ series) [facility] Start: 01-13-1963 BP CONTROLLED (<130/80) BP CON TROLLED (<130/80) [facility] Start: 01-13-1963 HEPATITIS C SCREENING HEPATITIS C [facility] End: 12-11-2023 Echocardiography ECHO Cardiology Routine SOB (shortness of breath) 1 Occurrences starting 12/10/2022 until 12/11/2023 [facility] Work Phone: Comment on above: 1 Occurrences starti ng 12/10/2022 until 12/11/2023 Hepatitis C virus Ab [Presence] in Serum HEP C AB IA W/CONF SCRN Lab Routine Encounter for hepatitis C screening test for low risk patient 09/04/2021 10:32 AM EDT [facility] Work Phone: Influenza virus A an d B RNA and SARS-CoV-2 (COVID-19) N gene panel - Respiratory specimen by GRACE with probe detection COVID WITH FLUA+B, ROUTINE Microbiology Routine Acute cough Ordered: 02/06/2022 [facility] Work Phone: Comment on above: Ordered: 02/06/2022 End: 03-29-2023 LUNG VOLUMES LUNG VOLUMES PFT Routine SOB (shortness of breath) 1 Occurrences starting 02/27/2022 until 03/29/2023 [facility] Work Phone: Comment on above: 1 Occurrences starti ng 02/27/2022 until 03/29/2023 End: 03-29-2023 NITRIC OXIDE, EXHALED NITRIC OXIDE, EXHALED PFT Routine SOB (shortness of breath) 1 Occurrences starting 02/27/2022 until 03/29/2023 [facility] Work Phone: Comment on above: 1 Occurrences starti ng 02/27/2022 until 03/29/2023 Prostate specific Ag [Mass/volume] in Serum or Plasma PSA/PROSTSPECAG DIAG Lab Routine Benign non-nodular prostatic hyperplasia with lower urinary tract symptoms 09/04/2021 10:32 AM EDT [facility] Work Phone: End: 06-09-2023 Radiologic exam chest 2 views XR CHEST 2V FRONTAL/LAT Radiology STAT Acute cough 1 Occurrences starting 05/10/2022 until 06/09/2023 [facility] Work Phone: Comment on above: 1 Occurrences starti ng 05/10/2022 until 06/09/2023 End: 06-12-2023 Radiologic exam chest 2 views XR CHEST 2V FRONTAL/LAT Radiology Routine SOB (shortness of breath) Acute cough 1 Occurrences starting 05/13/2022 until 06/12/2023 [facility] Work Phone: Comment on above: 1 Occurrences starti ng 05/13/2022 until 06/12/2023 End: 03-29-2023 SPIROMETRY WITH DILATOR IF OBSTRUCTED SPIROMETRY WITH DILATOR IF OBSTRUCTED PFT Routine SOB (shortness of breath) 1 Occurrences starting 02/27/2022 until 03/29/2023 [facility] Work Phone: Comment on above: 1 Occurrences starti ng 02/27/2022 until 03/29/2023 SPIROMETRY WITH DILA TOR IF OBSTRUCTED SPIROMETRY WITH DILATOR IF OBSTRUCTED PFT Routine SOB (shortness of breath) 03/11/2022 8:53 AM EDT [facility] Work Phone: End: 03-24-2025 XR Chest PA and Lateral XR CHEST 2V FRONTAL/LAT Radiology Routine Subacute cough 1 Occurrences starting 02/23/2024 until 03/24/2025 [facility] Work Phone: Comment on above: 1 Occurrences starti ng 02/23/2024 until 03/24/2025 XR Chest PA and Lateral XR CHEST 2V FRONTAL/LAT Radiology Routine Acute cough 02/23/2024 1:53 PM EDT [facility] Immunizations Immunization Date Immunization Notes Care Provider Sarah disla 02-10-2023 influenza (HD-IIV4) vaccine, age 65+ yr, high dose, quadrivalent, PF (FLUZONE HIGH-DOSE) Binu Solis MD Work Phone: [facility] 02-10-2023 respiratory syncytia l virus (RSV) vaccine, adjuvanted (AREXVY) Binu Solis MD Work Phone: [facility] 02-10-2023 influenza virus vacc ine, unspecified formulation Fer PORTER Work Phone: [facility] 03-13-2022 COVID-19 booster vaccine, age 12+ yr, bivalent (PFIZER-BIONTECH) Genie Bustamante MD Work Phone: [facility] 03-13-2022 influenza (HD-IIV4) vaccine, age 65+ yr, high dose, quadrivalent, PF (FLUZONE HIGH-DOSE) Binu Solis MD Work Phone: [facility] 03-13-2022 influenza, high dose seasonal, preservative-free Genie Bustamante MD Work Phone: [facility] 02-18-2021 influenza, high-dose , quadrivalent vaccine (FLUZONE HIGH DOSE QUADRIVALENT) Berkley Roque APRN.ACOUSTICS TEACHER Work Phone: [facility] 08-16-2020 COVID-19 vaccine, ag e 12+ yr (PFIZER-BIONTECH - PURPLE TOP) Berkley Rajguru VACUUM DRUM DRIER OPERATOR.ACOUSTICS TEACHER Work Phone: [facility] Work Phone: 07-26-2020 COVID-19 vaccine, ag e 12+ yr (PFIZER-BIONTECH - PURPLE TOP) Berkley Rajguru VACUUM DRUM DRIER OPERATOR.ACOUSTICS TEACHER Work Phone: [facility] Work Phone: 01-22-2020 influenza, high dose seasonal, preservative-free Berkley Rajguru VACUUM DRUM DRIER OPERATOR.ACOUSTICS TEACHER Work Phone: [facility] 02-28-2019 influenza, high dose seasonal, preservative-free Berkley Rajguru VACUUM DRUM DRIER OPERATOR.ACOUSTICS TEACHER Work Phone: [facility] 12-29-2018 zoster vaccine recombinant Berkley Rajguru VACUUM DRUM DRIER OPERATOR.ACOUSTICS TEACHER Work Phone: [facility] 10-28-2018 zoster vaccine recombinant Berkley Rajguru VACUUM DRUM DRIER OPERATOR.ACOUSTICS TEACHER Work Phone: [facility] 03-02-2018 influenza, high dose seasonal, preservative-free Berkley Rajguru VACUUM DRUM DRIER OPERATOR.ACOUSTICS TEACHER Work Phone: [facility] 02-09-2017 influenza, high dose seasonal, preservative-free Berkley Rajguru VACUUM DRUM DRIER OPERATOR.ACOUSTICS TEACHER Work Phone: [facility] 10-01-2016 tetanus and diphther ia toxoids, adsorbed, preservative free, for adult use (5 Lf of tetanus toxoid and 2 Lf of diphtheria toxoid) Berkley Rajguru VACUUM DRUM DRIER OPERATOR.ACOUSTICS TEACHER Work Phone: [facility] 03-17-2016 influenza, high dose seasonal, preservative-free Berkley Rajguru VACUUM DRUM DRIER OPERATOR.ACOUSTICS TEACHER Work Phone: [facility] 06-25-2015 pneumococcal polysaccharide vaccine, 23 valent Berkley Rajguru VACUUM DRUM DRIER OPERATOR.ACOUSTICS TEACHER Work Phone: [facility] 06-12-2014 pneumococcal conjuga te vaccine, 13 valent Berkley Rajguru VACUUM DRUM DRIER OPERATOR.ACOUSTICS TEACHER Work Phone: [facility] 02-27-2014 influenza, seasonal, injectable Berkley Rajguru VACUUM DRUM DRIER OPERATOR.ACOUSTICS TEACHER Work Phone: [facility] 04-20-2013 pneumococcal polysaccharide vaccine, 23 valent Berkley Rajguru VACUUM DRUM DRIER OPERATOR.ACOUSTICS TEACHER Work Phone: [facility] 03-14-2010 influenza virus vacc ine, unspecified formulation Berkley Rajguru VACUUM DRUM DRIER OPERATOR.ACOUSTICS TEACHER Work Phone: [facility] Work Phone: 04-03-2008 influenza virus vacc ine, unspecified formulation Berkley Rajguru VACUUM DRUM DRIER 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 Work Phone: [facility] Work Phone: 08-05-2006 tetanus toxoid, redu gentry diphtheria toxoid, and acellular pertussis vaccine, adsorbed Berkley Rajguru VACUUM DRUM DRIER 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 Work Phone: [facility] Work Phone: Payers Date Payer Category Payer Medicare AETNA MEDICARE A ETNA MEDICARE PPO [id number] 2021-Present [phone] [address] [place] [address] PPO [id number] 2021 Medicare AETNA MEDICARE A ETNA MEDICARE PPO [id number] 2021-Present [phone] [address] [place] [address] PPO [id number] 2021 Medicare [id number] Social History Date Type Detail Facility Start: 02-06-2022 Tobacco smoking status NHIS Never smoked tobacco [facility] Work Phone: Start: 08-27-2021 End: 02-23-2024 Alcohol intake Current non-drinker of alcohol (finding) [facility] Start: 05-29-2020 End: 05-12-2022 History SDOH Alcohol Frequency 1 [facility] Start: 05-29-2020 History SDOH Alcohol Std Drinks 98 [facility] Start: 05-29-2020 End: 05-12-2022 History SDOH Social Connections Phone 5 [facility] Start: 05-29-2020 End: 05-12-2022 History SDOH Social Connections Pentecostalism 2 [facility] Start: 05-29-2020 End: 05-12-2022 History SDOH Social Connections Living 3 [facility] Start: 05-29-2020 History SDOH Physical Activity DPW 6 [facility] Start: 05-29-2020 Education 18 [facility] Start: 05-11-2014 End: 02-06-2022 Tobacco Comment Non smoking childhood home. [facility] Start: 1945 Sex Assigned At Male [facility] Start: 08-17-2021 End: 05-03-2022 Exposure to SARS-CoV-2 (event) Not sure [facility] Start: 02-06-2022 Tobacco use and exposure Smokeless tobacco non-user [facility] Start: 05-12-2022 History SDOH Alcohol Std Drinks 0 [facility] Start: 05-11-2022 End: 12-10-2022 History of Social function [facility] Start: 05-11-2022 End: 12-10-2022 Social connection and isolation panel [facility] Do you belong to any clubs or organizations such as islam groups, unions, fraternal or athletic groups, or school groups? Yes [facility] Are you now , , , , never or living with a partner? [facility] How often to you hav e a drink containing alcohol? Never [facility] How many standard dr inks containing alcohol do you have on a typical day? Patient does not drink [facility] Do you feel stress - tense, restless, nervous, or anxious, or unable to sleep at night because your mind is troubled all the time - these days [OSQ] Only a little [facility] (I/We) worried wheth er (my/our) food would run out before (I/we) got money to buy more. Never true [facility] In the past 12 month s, was there a time when you were not able to pay the mortgage or rent on time? No [facility] Start: 05-12-2019 Gender identity Identifies as male gender (finding) [facility] Start: 01-23-2020 Sexual orientation Heterosexual (finding) [facility] Do you feel stress - tense, restless, nervous, or anxious, or unable to sleep at night because your mind is troubled all the time - these days [OSQ] Very much [facility] Clinical Notes 02-12-2016 to 02-23-2024 Eliza Nix RT(R) - 02/23/2024 2:00 PM Becky Reyes PA-Avelino - 02/23/2024 1:30 PM Fer Sibley PA - 01/29/2024 12:47 PM Genie Juarez MD - 11/09/2023 10:30 AM EDT Note Date & Type Note Facility 02-23-2024 History of Presen t illness Narrative Radiology Service Progress Note PATIENT NAME: Valentina Cabrera DATE OF SERVICE: February 23, 2024 TIME: 1:47 PM PATIENT IDENTITY VERIFICATION COMPLETED USING TWO (2) IDENTIFIERS: Name and Date of confirmed by patient verbally. FALL SCREENING: Has the patient had 2 falls in the last year or 1 fall with injury or currently using an Ambulatory Assistive Device (Walker, Cane, Wheelchair, Crutches, etc.)? 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 Methacholine challenge negative, had referral to Dr. Rcoa for VCD but was started on ICS by PCP which resolved his cough. Current therapy consists of Dulera, Singulair, and as needed albuterol. Patient was recently seen in [facility] for URI and Covid test was positive and was treated with Paxlovid. Today, patient reports he was seen by his PCP on 02/07 and treated with Doxycycline and Prednisone and then subsequently on 02/14 and was then treated with Levaquin and Prednisone. He continues with persistent cough following Covid. Typically non-productive, occasionally expels yellowish sputum. Thought it was getting better at one point. No hemoptysis. No wheezing. Exertional dyspnea with minimal effort. No fevers, chills, or night sweats. No unintended weight loss. No lower extremity edema. No GERD/heartburn. PAST MEDICAL HISTORY Diagnosis Date Abdominal pain, left lower quadrant Achilles tendinitis 10/04/2012 Adjustment disorder with depressed mood Allergies Chronic low back pain 03/12/2011 Constipation Essential hypertension, benign Family history of ischemic heart disease Family history of mental disorder Family history of stroke GERD without esophagitis Hypertrophy of prostate with urinary obstruction and other lower urinary tract symptoms (LUTS) 07/05/2007 half-way (current) use of inhaled steroids Lumbar discogenic pain syndrome 06/05/2010 Male erectile disorder Other intervertebral disc degeneration, lumbosacral region Overweight Personal history of other malignant neoplasm of skin Personal history of tobacco use Rosacea Unilateral primary osteoarthritis, right knee Allergies: No Active Allergies albuterol HFA (PROVENTIL HFA, VENTOLIN HFA) 90 mcg/actuation inhaler^Inhale 2 Puffs as instructed every 4 hours as needed for wheezing/shortness of breath.^Disp: 3 Each^Rfl: 3 mometasone-formoterol (DULERA) 200-5 mcg/actuation inhaler^Inhale 2 Puffs as instructed two times a day.^Disp: 1 Each^Rfl: 0 mometasone-formoterol (DULERA) 200-5 mcg/actuation inhaler^Inhale 2 Puffs as instructed two times a day.^Disp: 3 Each^Rfl: 3 omeprazole (PRILOSEC) 40 mg capsule^Take 1 capsule by mouth once daily^Disp: 90 capsule^Rfl: 0 lisinopril (ZESTRIL) 5 mg tablet^take 1 tablet daily^Disp: 90 tablet^Rfl: 3 montelukast (SINGULAIR) 10 mg tablet^Take 1 tablet by mouth daily at bedtime.^Disp: 90 tablet^Rfl: 3 nortriptyline (PAMELOR) 50 mg capsule^Take 1 capsule by mouth twice daily.^Disp: 180 capsule^Rfl: 3 tamsulosin (FLOMAX) 0.4 mg^TAKE 1 CAPSULE DAILY AT BEDTIME^Disp: 90 capsule^Rfl: 3 polyethylene glycol 3350 (MIRALAX, GLYCOLAX) 17 gram packet^Take 1 Packet by mouth twice daily.^Disp: 180 Packet^Rfl: 3 Social History Tobacco Use Smoking status: Never Smokeless tobacco: Never Tobacco comments: Non smoking childhood home. Vaping Use Vaping status: Never Used Substance Use Topics Alcohol use: No Drug [...] noted above and updated in EMR. IMMUNIZATIONS Immunization History Administered Date(s) Administered COVID-19 original vaccine, age 12+ yr, monovalent ([employer] - [place] TOP) 08/29/2021 COVID-19 original vaccine, age 12+ yr, monovalent ([employer] - PURPLE TOP) 07/26/2020 08/16/2020 02/21/2021 COVID-19 vaccine, age 12+ yr ([employer]) 02/22/2023 08/20/2023 COVID-19 vaccine, age 12+ yr, bivalent ([employer]) 03/13/2022 diphtheria tetanus (DT) vaccine, pediatric 11/02/1996 influenza (HD-IIV3) vaccine, age 65+ yr, high dose, trivalent, PF (FLUZONE HIGH-DOSE) 03/17/2016 02/09/2017 03/02/2018 02/28/2019 01/22/2020 03/13/2022 influenza (HD-IIV4) vaccine, age 65+ yr, high dose, quadrivalent, PF (FLUZONE HIGH-DOSE) 02/18/2021 03/13/2022 02/10/2023 influenza (IIV3) vaccine, age 6 mo - 64 yr, trivalent (AFLURIA, FLULAVAL, FLUVIRIN, FLUZONE) 02/27/2014 influenza vaccine, unspecified formulation 04/03/2008 03/14/2010 pneumococcal conjugate (PCV13) vaccine, 13 valent (PREVNAR 13) 06/12/2014 pneumococcal polysaccharide (PPV23) vaccine, 23 valent (PNEUMOVAX 23) 04/03/2008 04/20/2013 06/25/2015 respiratory syncytial virus (RSV) vaccine, adjuvanted (AREXVY) 02/10/2023 tetanus diphtheria (Td) vaccine, age 7+ yr, 5 Lf tetanus, PF (TENIVAC) 10/01/2016 tetanus diphtheria pertussis (Tdap) vaccine, age 7+ yr (ADACEL, BOOSTRIX) 08/05/2006 zoster (RZV) vaccine, recombinant (SHINGRIX) 10/28/2018 12/29/2018 ROS: All other systems reviewed as negative except for what is noted in HPI and review of systems. PHYSICAL EXAMINATION: BP (P) 120/62 Pulse (P) 114 Resp (P) 18 Wt (P) 88.9 kg (196 lb) SpO2 (P) 95% BMI (P) 30.55 kg/m Gen: No acute distress. Cooperative with examination. HEENT: Normocephalic. Sclera, conjunctiva clear. Oral hygeine and dentition good. No thrush. Resp: No stridor, accessory respiratory muscle use, supra-sternal or intercostal retractions. No wheezes, crackles or rhonchi. CV: Tachycardia. Heart tones normal. Radial pulses normal. Ext: Warm and well perfused. No clubbing, cyanosis, edema. Skin: No rash, ecchymoses. Neuro: Mental status normal. Affect normal. No tremor. DATA: Laboratory and Imaging: Last Spirometry SPIROMETRY BASELINE ONLY Collected: 04/19/2023 11:03 AM (Final result) Narrative: [facility] [address] [place] [address] Test Date: 2023-04-19 Pat Name: VALENTINA CABRERA Department: Room: Gender: Male Cardiology Nurse: : 1945 Requested By: Order Number: [id number] Reading MD: Genie Bustamante MD Interpretive Statements ATS/ERS acceptability and repeatability standards for spirometry met. IMPRESSION: Spirometry is normal. Small airways obstruction noted. Maximum inspiratory and expiratory pressures are normal. Electronically Signed On 04-19-2023 12:36:10 EST by Genie Bustamante MD ID: [id number] Name: VALENTINA CABRERA Race: White Ht: 67.17 in Wt: 195.00 lbs Age: 78 Gender: Male : 1945 Dx: Shortness of breath Smoking Hx: Non-smoker Doctor: BECKY FIERRO Test Date: 04/19/2023 Site: [facility] Tech: Tawana Moore PRE-BRONCH POST-BRONCH Pre LLN Pred ULN %Pred Post %Pred %Chg SPIROMETRY FVC (L) 4.09 2.52 3.41 4.32 119 FEV1 (L) 2.73 1.83 2.54 3.20 107 FEV1/FVC 0.67 0.62 0.76 0.88 87 PEF L/s (L/sec) 7.39 4.57 6.70 8.83 110 FEF50 (L/sec) 2.05 1.10 3.23 5.35 63 FIF50 (L/sec) 5.40 FEF50/FIF50 0.38 90-100 FIVC (L) 4.17 UML85-56 (L/sec) 1.25 0.73 1.92 3.66 65 Time (sec) 13.69 FET PEF (sec) 0.10 STEFANIE (L) 0.10 Vol Extrap % (%) 3 PULMONARY MECHANICS MIP (cmH2O) -104.1 -50.00 -87.50 -125.0 118 MEP (cmH2O) 112.80 51.04 108.21 165.39 104 Comments: ATS/ERS acceptability and repeatability standards for spirometry met. CT Chest other findings: Last CT Chest - Impression Only No resulted procedures found. Last XR Chest - Impression Only XR RIBS/CHEST 3V AP RIB/OBLS/CXR RIGHT Exam End: 08/19/2022 9:28 AM (Final result) Impression: IMPRESSION: Right sixth and seventh rib age indeterminate fractures, likely representing old rib fractures. Hypnotherapist: TASHI Transcribe Date/Time: Aug 19 2022 9:33A Dictated by : RONI VAIL MD... ASSESSMENT/PLAN: 1. Subacute cough - ICD9: 786.2, ICD10: R05.2 (primary diagnosis) 2. History of COVID-19 - ICD9: V12.09, ICD10: Z86.16 Patient with persistent cough following Covid -19 infection. PCP treated with Doxycycline, Levaquin and 2 courses of Prednisone. Could possibly be rebound after taking Paxlovid. CXR today. 3. Mild persistent asthma without complication - ICD9: 493.90, ICD10: J45.30 Continue maintenance therapy with Dulera. Rinse mouth after each use to help prevent oral thrush. Albuterol HFA inhaler, 2 inhalations 10-15 minutes prior to activities associated with shortness of breath, and as needed for rescue relief of shortness of breath or wheezing, up to 4 times daily. 4. Seasonal allergies - ICD9: 477.9, ICD10: J30.2 Continue Singulair 5. Gastroesophageal reflux disease, unspecified whether esophagitis present - ICD9: 530.81, ICD10: K21.9 On PPI 6. Tachycardia - ICD9: 785.0, ICD10: R00.0 Could be related to recent Prednisone tapers or increased use of Albuterol. Portions of this documentation were copied and pasted from previous office visit notes in order to provide a cohesive continuity of the history. The note has been reviewed and edited and updated as necessary. Becky Fierro PA-C documented in this encounter [facility] 01-29-2024 Note HNO ID: [id number] Author: FER RUELAS PA Service: ? Author Type: Physician Solar Thermal Installer Type: Progress Notes Filed: 01/29/2024 12:49 Note Text: This note was created using Not iTter. Subjective Valentina Cabrera is a 79 year old male. HPI 79-year-old male presents for cough, congestion x 1 day. Patient states yesterday he started getting cough, sore throat, nasal congestion and chest congestion. He is was recently sick with similar symptoms as well as his grandson. Patient states he has a low-grade fever yesterday. No fever today. He has not taken anything [id number] for symptoms. He does have history of asthma. Denies any shortness of breath or wheezing. No chest pain. No other complaint. PAST MEDICAL HISTORY No date: Abdominal pain, left lower quadrant 10/04/2012: Achilles tendinitis No date: Adjustment disorder with depressed mood No date: Allergies 03/12/2011: Chronic low back pain No date: Constipation No date: Essential hypertension, benign No date: Family history of ischemic heart disease No date: Family history of mental disorder No date: Family history of stroke No date: GERD without esophagitis 07/05/2007: Hypertrophy of prostate with urinary obstruction and other lower urinary tract symptoms (LUTS) No date: half-way (current) use of inhaled steroids 06/05/2010: Lumbar discogenic pain syndrome No date: Male erectile disorder No date: Other intervertebral disc degeneration, lumbosacral region No date: Overweight No date: Personal history of other malignant neoplasm of skin No date: Personal history of tobacco use No date: Rosacea No date: Unilateral primary osteoarthritis, right knee PAST SURGICAL HISTORY 2019: CATARACT EXTRACTION HX; Bilateral 09/26/2001: COLONOSCOPY FLX DX W/COLLJ SPEC WHEN PFRMD Comment: Colonoscopy-repeat in 11/03/2011: COLONOSCOPY FLX DX W/COLLJ SPEC WHEN PFRMD Comment: Colonoscopy 06/18/2020: COLONOSCOPY SCRN NOT HIGH RISK 06/18/2020: EGD 10 yrs ago: PAST SURGICAL HISTORY OF Comment: BCC removed by Dr.Robert Naqvi 2004: PAST SURGICAL HISTORY OF Comment: Premalignant lesion on left side nose by Dr.Robert Naqvi No date: SKIN BIOPSY HX No date: SKIN BX, 1 LESION Comment: Skin biopsy No date: TONSILLECTOMY AND ADENOIDECTOMY ALLERGIES Patient has no active allergies. MEDICATIONS albuterol HFA (PROVENTIL HFA, VENTOLIN HFA) 90 mcg/actuation inhalerInhale 2 Puffs as instructed every 4 hours as needed for wheezing/shortness of breath.Disp: 3 EachRfl: 3 mometasone-formoterol (DULERA) 200-5 mcg/actuation inhalerInhale 2 Puffs as instructed two times a day.Disp: 1 EachRfl: 0 omeprazole (PRILOSEC) 40 mg capsuleTake 1 capsule by mouth once dailyDisp: 90 capsuleRfl: 0 lisinopril (ZESTRIL) 5 mg tablettake 1 tablet dailyDisp: 90 tabletRfl: 3 montelukast (SINGULAIR) 10 mg tabletTake 1 tablet by mouth daily at bedtime.Disp: 90 tabletRfl: 3 nortriptyline (PAMELOR) 50 mg capsuleTake 1 capsule by mouth twice daily.Disp: 180 capsuleRfl: 3 tamsulosin (FLOMAX) 0.4 mgTAKE 1 CAPSULE DAILY AT BEDTIMEDisp: 90 capsuleRfl: 3 polyethylene glycol 3350 (MIRALAX, GLYCOLAX) 17 gram packetTake 1 Packet by mouth twice daily.Disp: 180 PacketRfl: 3 mometasone-formoterol (DULERA) 200-5 mcg/actuation inhalerInhale 2 Puffs as instructed two times a day.Disp: 3 EachRfl: 3 FAMILY HISTORY Problem Relation Age of Onset Anxiety disorder Mother Depression Mother Stroke Mother Hypertension Mother Cancer Father pancreatic cancer Social History Tobacco Use Smoking status: Never Smokeless tobacco: Never Tobacco comments: Non smoking childhood home. Vaping Use Vaping status: Never Used Substance Use Topics Alcohol use: No Drug use: No Review of Systems Constitutional: Negative for chills and fever. HENT: Positive for congestion and sore throat. Respiratory: Positive for cough. Negative for shortness of breath. Gastrointestinal: Negative for diarrhea and vomiting. Objective BP 138/72 Pulse 96 Temp 36.9 ?C (98.4 ?F) Resp 18 Wt 88.6 kg (195 lb 5.2 oz) SpO2 95% BMI 30.44 kg/m? Physical Exam Vitals and nursing note reviewed. Constitutional: General: He is not in acute distress. Appearance: Normal appearance. He is not toxic-appearing. HENT: Right Ear: Tympanic membrane and ear canal normal. Left Ear: Tympanic membrane and ear canal normal. Nose: Nose normal. Mouth/Throat: Mouth: Mucous membranes are moist. Eyes: Conjunctiva/sclera: Conjunctivae normal. Cardiovascular: Rate and Rhythm: Normal rate and regular rhythm. Pulmonary: Effort: Pulmonary effort is normal. Breath sounds: Normal breath sounds. No wheezing, rhonchi or rales. Skin: General: Skin is warm and dry. Neurological: Mental Status: He is alert. Assessment and Plan ASSESSMENT/PLAN: 1. URI, acute - ICD9: 465.9, ICD10: J06.9 - Discussed viral etiology and rationale for treatment. - S (more content not included)... [facility] 01-29-2024 History of Presen t illness Narrative This note was created using MyMedMatchriter. Subjective Valentina Cabrera is a 79 year old male. HPI 79-year-old male presents for cough, congestion x 1 day. Patient states yesterday he started getting cough, sore throat, nasal congestion and chest congestion. He is was recently sick with similar symptoms as well as his grandson. Patient states he has a low-grade fever yesterday. No fever today. He has not taken anything [id number] for symptoms. He does have history of asthma. Denies any shortness of breath or wheezing. No chest pain. No other complaint. PAST MEDICAL HISTORY No date: Abdominal pain, left lower quadrant 10/04/2012: Achilles tendinitis No date: Adjustment disorder with depressed mood No date: Allergies 03/12/2011: Chronic low back pain No date: Constipation No date: Essential hypertension, benign No date: Family history of ischemic heart disease No date: Family history of mental disorder No date: Family history of stroke No date: GERD without esophagitis 07/05/2007: Hypertrophy of prostate with urinary obstruction and other lower urinary tract symptoms (LUTS) No date: half-way (current) use of inhaled steroids 06/05/2010: Lumbar discogenic pain syndrome No date: Male erectile disorder No date: Other intervertebral disc degeneration, lumbosacral region No date: Overweight No date: Personal history of other malignant neoplasm of skin No date: Personal history of tobacco use No date: Rosacea No date: Unilateral primary osteoarthritis, right knee PAST SURGICAL HISTORY 2019: CATARACT EXTRACTION HX; Bilateral 09/26/2001: COLONOSCOPY FLX DX W/COLLJ SPEC WHEN PFRMD Comment: Colonoscopy-repeat in 11/03/2011: COLONOSCOPY FLX DX W/COLLJ SPEC WHEN PFRMD Comment: Colonoscopy 06/18/2020: COLONOSCOPY SCRN NOT HIGH RISK 06/18/2020: EGD 10 yrs ago: PAST SURGICAL HISTORY OF Comment: BCC removed by Dr.Robert Naqvi 2004: PAST SURGICAL HISTORY OF Comment: Premalignant lesion on left side nose by Dr.Robert Naqvi No date: SKIN BIOPSY HX No date: SKIN BX, 1 LESION Comment: Skin biopsy No date: TONSILLECTOMY & ADENOIDECTOMY <AGE 11 ALLERGIES Patient has no active allergies. MEDICATIONS albuterol HFA (PROVENTIL HFA, VENTOLIN HFA) 90 mcg/actuation inhaler^Inhale 2 Puffs as instructed every 4 hours as needed for wheezing/shortness of breath.^Disp: 3 Each^Rfl: 3 mometasone-formoterol (DULERA) 200-5 mcg/actuation inhaler^Inhale 2 Puffs as instructed two times a day.^Disp: 1 Each^Rfl: 0 omeprazole (PRILOSEC) 40 mg capsule^Take 1 capsule by mouth once daily^Disp: 90 capsule^Rfl: 0 lisinopril (ZESTRIL) 5 mg tablet^take 1 tablet daily^Disp: 90 tablet^Rfl: 3 montelukast (SINGULAIR) 10 mg tablet^Take 1 tablet by mouth daily at bedtime.^Disp: 90 tablet^Rfl: 3 nortriptyline (PAMELOR) 50 mg capsule^Take 1 capsule by mouth twice daily.^Disp: 180 capsule^Rfl: 3 tamsulosin (FLOMAX) 0.4 mg^TAKE 1 CAPSULE DAILY AT BEDTIME^Disp: 90 capsule^Rfl: 3 polyethylene glycol 3350 (MIRALAX, GLYCOLAX) 17 gram packet^Take 1 Packet by mouth twice daily.^Disp: 180 Packet^Rfl: 3 mometasone-formoterol (DULERA) 200-5 mcg/actuation inhaler^Inhale 2 Puffs as instructed two times a day.^Disp: 3 Each^Rfl: 3 FAMILY HISTORY Problem Relation Age of Onset Anxiety disorder Mother Depression Mother Stroke Mother Hypertension Mother Cancer Father pancreatic cancer Social History Tobacco Use Smoking status: Never Smokeless tobacco: Never Tobacco comments: Non smoking childhood home. Vaping Use Vaping status: Never Used Substance Use Topics Alcohol use: No Drug use: No Review of Systems Constitutional: Negative for chills and fever. HENT: Positive for congestion and sore throat. Respiratory: Positive for cough. Negative for shortness of breath. Gastrointestinal: Negative for diarrhea and vomiting. Objective BP 138/72 Pulse 96 Temp 36.9 C (98.4 F) Resp 18 Wt 88.6 kg (195 lb 5.2 oz) SpO2 95% BMI 30.44 kg/m Physical Exam Vitals and nursing note reviewed. Constitutional: General: He is not in acute distress. Appearance: Normal appearance. He is not toxic-appearing. HENT: Right Ear: Tympanic membrane and ear canal normal. Left Ear: Tympanic membrane and ear canal normal. Nose: Nose normal. Mouth/Throat: Mouth: Mucous membranes are moist. Eyes: Conjunctiva/sclera: Conjunctivae normal. Cardiovascular: Rate and Rhythm: Normal rate and regular rhythm. Pulmonary: Effort: Pulmonary effort is normal. Breath sounds: Normal breath sounds. No wheezing, rhonchi or rales. Skin: General: Skin is warm and dry. Neurological: Mental Status: He is alert. Assessment and Plan ASSESSMENT/PLAN: 1. URI, acute - ICD9: 465.9, ICD10: J06.9 - Discussed viral etiology and rationale for treatment. - Symptomatic treatment with prn analgesia - Supportive care with fluids and rest - COVID & INFLUENZA A/B & RSV PCR, ROUTINE -Patient would like Paxlovid if COVID-positive. Laboratory testing from 02/2023 revealed GFR of 82. Diagnosis and treatment plan were discussed and questions were answered to the patient's satisfaction. Pt acknowledged understanding of concepts and follow up plan. Specific signs and symptoms that would indicate the need for higher level of care were discussed in detail warranting prompt ER evaluation. CHARLOTTE Henry documented in this encounter [facility] 11-09-2023 History of Presen t illness Narrative Images from the original note were not included. . Respiratory [place] Note Patient name: Valentina Cabrera PCP: Binu Solis MD CC: Follow-up HPI: Valentina Cabrera 78 year old male never smoker with PMH significant for GERD, BPH, HTN, allergies previously treated with IT, depression, eventration of diaphragm, chronic cough. Methacholine challenge negative, had referral to Dr. Roac for VCD but was started on ICS by PCP which resolved his cough. Current therapy consists of Dulera, Singulair, and as needed albuterol. At [facility] with JULISSA, stopped Singulair, continued inhaler, and ordered diaphragm evaluation. Unable to tolerate discontinuation of Singulair with recrudescence of his allergic symptoms, specifically, increased cough and nasal congestion. Evaluation for diaphragmatic dysfunction negative. Overall respiratory symptoms remain relatively stable. Main symptom is but also worsened by emotional distress and high pollen counts. Notices worsening of his asthma symptoms on days that he mows his lawn. He has been using a mask which does seem to help. No significant audible wheezing, productive cough, chest pain. He has not been ill with any recent upper respiratory infections nor required course of oral steroids. Uses his albuterol at least once weekly. No nocturnal awakenings. DATA: ASTHMA CONTROL TEST Date: 11/09/2023 In the last 4 weeks, how much of the time did your asthma keep you from getting as much done at work or home that you wanted to do? Some of the time (3) In the last 4 weeks, how often [...] how would you rate your asthma control? Somewhat controlled (3) Total: 16-19 PFT: Spirometry/MIP/MEP Spirometry is normal. MIP and MEP normal Imaging / Diagnostic Studies: Review of CXR shows bilateral elevated diaphragms. 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 Male erectile disorder Other intervertebral disc degeneration, lumbosacral region Overweight Personal history of other malignant neoplasm of skin Personal history of tobacco use Rosacea Unilateral primary osteoarthritis, right knee ALLERGIES No Active Allergies mometasone-formoterol (DULERA) 200-5 mcg/actuation inhaler^Inhale 2 Puffs as instructed two times a day.^Disp: 1 Each^Rfl: 0 omeprazole (PRILOSEC) 40 mg capsule^Take 1 capsule by mouth once daily^Disp: 90 capsule^Rfl: 0 lisinopril (ZESTRIL) 5 mg tablet^take 1 tablet daily^Disp: 90 tablet^Rfl: 3 montelukast (SINGULAIR) 10 mg tablet^Take 1 tablet by mouth daily at bedtime.^Disp: 90 tablet^Rfl: 3 nortriptyline (PAMELOR) 50 mg capsule^Take 1 capsule by mouth twice daily.^Disp: 180 capsule^Rfl: 3 tamsulosin (FLOMAX) 0.4 mg^TAKE 1 CAPSULE DAILY AT BEDTIME^Disp: 90 capsule^Rfl: 3 polyethylene glycol 3350 (MIRALAX, GLYCOLAX) 17 gram packet^Take 1 Packet by mouth twice daily.^Disp: 180 Packet^Rfl: 3 albuterol HFA (PROVENTIL HFA, VENTOLIN HFA) 90 mcg/actuation inhaler^Inhale 2 Puffs as instructed every 4 hours as needed for wheezing/shortness of breath.^Disp: 3 Each^Rfl: 3 mometasone-formoterol (DULERA) 200-5 mcg/actuation inhaler^Inhale 2 Puffs as instructed two times a day.^Disp: 3 Each^Rfl: 3 Social History Tobacco Use Smoking status: [...] chills, nightsweats, unintended weight loss HEENT: Denies current problematic allergy problems. EYES: No diplopia or blurry vision, itchy eyes CARDIOVASCULAR: No chest pain, palpitations, edema. PULM: See HPI GI: No dysphagia/odynophagia, problematic reflux INTEGUMENTARY: No new skin changes PHYSICAL EXAMINATION: Pulse 83 Resp 15 Wt 191 lb (86.6kg) SpO2 98% General Appearance: Age appropriate NAD. Skin: Skin color, texture, turgor normal, no suspicious rashes or lesions. Eyes: Sclera, conjunctiva normal. Chest wall: Kyphosis Lungs: Not loabored, normal to percussion, no wheezes or crackles. Heart: RRR, no murmur. Extremities: No edema, no clubbing. Assessment/Plan: Mild persistent asthma, uncomplicated -Relatively good control with Dulera. Will continue current therapy -Refilled albuterol prescription -RTC 6 months Seasonal allergies -Patient to maintain use of Singulair -Allergen avoidance as able -Recommended shower and change clothes after mowing Genie Bustamante MD [facility] documented in this encounter [facility] 11-09-2023 Note HNO ID: [id number] Author: GENIE BUSTAMANTE MD Service: ? Author Type: Physician Type: Progress Notes Filed: 11/09/2023 11:28 Note Text: . Respiratory [place] Note Patient name: Valentina Cabrera PCP: Binu Solis MD CC: Follow-up HPI: Valentina Cabrera 78 year old male never smoker with PMH significant for GERD, BPH, HTN, allergies previously treated with IT, depression, eventration of diaphragm, chronic cough. Methacholine challenge negative, had referral to Dr. Roca for VCD but was started on ICS by PCP which resolved his cough. Current therapy consists of Dulera, Singulair, and as needed albuterol. At [facility] with JULISSA, stopped Singulair, continued inhaler, and ordered diaphragm evaluation. Unable to tolerate discontinuation of Singulair with recrudescence of his allergic symptoms, specifically, increased cough and nasal congestion. Evaluation for diaphragmatic dysfunction negative. Overall respiratory symptomsremain relatively stable. Main symptom is but also worsened by emotional distress and high pollen counts. Notices worsening of his asthma symptoms on days that he mows his lawn. He has been using a mask which does seem to help. No significant audible wheezing, productive cough, chest pain. He has not been ill with any recent upper respiratory infections nor required course of oral steroids. Uses his albuterol at least once weekly. No nocturnal awakenings. DATA: ASTHMA CONTROL TEST Date: 11/09/2023 In the last 4 weeks, how much of the time did your asthma keep you from getting as much done at work or home that you wanted to do? Some of the time (3) In the last 4 weeks, how often [...] how would you rate your asthma control? Somewhat controlled (3) Total: 16-19 PFT: Spirometry/MIP/MEP Spirometry is normal. MIP and MEP normal Imaging / Diagnostic Studies: Review of CXR shows bilateral elevated diaphragms. Lateral view consistent with eventration PAST MEDICAL HISTORY Diagnosis Date Abdominal pain, [...] Rosacea Unilateral primary osteoarthritis, right knee ALLERGIES No Active Allergies mometasone-formoterol (DULERA) 200-5 mcg/actuation inhalerInhale 2 Puffs as instructed two times a day.Disp: 1 EachRfl: 0 omeprazole (PRILOSEC) 40 mg capsuleTake 1 capsule by mouth once dailyDisp: 90 capsuleRfl: 0 lisinopril (ZESTRIL) 5 mg tablettake 1 tablet dailyDisp: 90 tabletRfl: 3 montelukast (SINGULAIR) 10 mg tabletTake 1 tablet by mouth daily at bedtime.Disp: 90 tabletRfl: 3 nortriptyline (PAMELOR) 50 mg capsuleTake 1 capsule by mouth twice daily.Disp: 180 capsuleRfl: 3 tamsulosin (FLOMAX) 0.4 mgTAKE 1 CAPSULE DAILY AT BEDTIMEDisp: 90 capsuleRfl: 3 polyethylene glycol 3350 (MIRALAX, GLYCOLAX) 17 gram packetTake 1 Packet by mouth twice daily.Disp: 180 PacketRfl: 3 albuterol HFA (PROVENTIL HFA, VENTOLIN HFA) 90 mcg/actuation inhalerInhale 2 Puffs as instructed every 4 hours as needed for wheezing/shortness of breath.Disp: 3 EachRfl: 3 mometasone-formoterol (DULERA) 200-5 mcg/actuation inhalerInhale 2 Puffs as instructed two times a day.Disp: 3 EachRfl: 3 Social History Tobacco Use Smoking status: [...] SPEC WHEN PFRMD 11/03/2011 Colonoscopy COLONOSCOPY SCRN (more content not included)... [facility] 07-02-2023 Miscellaneous Notes I sent one script [...] and needs 90 day supply sent to [facility] but needs initial order to get him started sent to [facility] [place]. He has some of the Dulera 100 mcg/5 left but that is not what he was taking most recently and is asking if that can be doubled up as he was most recently taking 200 mcg/5. Please review and advise. Deirdre Brand LPN documented in this encounter [facility] 05-03-2023 Miscellaneous Notes The following approved medication requests have been transmitted electronically. Requested Prescriptions Pending Prescriptions Disp Refills lisinopril (ZESTRIL) 5 mg tablet [Pharmacy Med Name: LISINOPRIL TABS 5MG] 90 tablet 3 Sig: take 1 tablet daily Mayur Kimble APRN.LEAH documented in this encounter [facility] 04-19-2023 Note HNO ID: [id number] Author: Tawana Moore RPFT Service: ? Author Type: Respiratory Therapist Type: Progress Notes Filed: 04/19/2023 11:20 AM Note Text: PULM FUNCTION SMARTBLOCK: Provider: Becky Fierro PA-C Assisting Tech: Tawana Moore RPFT MIP/MEP: 1 [facility] 04-19-2023 History of Presen t illness Narrative PULM FUNCTION SMARTBLOCK: Provider: Becky Fierro PA-C Assisting Tech: Tawana Moore RPFT MIP/MEP: 1 documented in this encounter [facility] 04-19-2023 Note HNO ID: [id number] Author: Becky Fierro PA-C Service: ? Author Type: Physician Solar Thermal Installer Type: Progress Notes Filed: 04/19/2023 2:09 PM Note Text: Patient: Valentina Cabrera PCP: Binu Solis MD CC: follow up HPI: Valentina Cabrera 78 year old male never smoker with [...] other lower urinary tract symptoms (LUTS) 07/05/2007 half-way (current) use of inhaled steroids Lumbar discogenic [...] kyphoscoliosis. Ext: War (more content not included)... [facility] 03-09-2023 History of Presen t illness Narrative Chief Complaint Patient presents with: 6 Month Exam HPI Valentina Cabrera is a 78 year old male who [...] Avoidance of triggers recommended - Continue with Bioprocess Engineer 3. Benign non-nodular prostatic hyperplasia with lower [...] Past Histories independently gathered by the clinical sales support engineer and the remaining scribed note accurately describes my personal service to the patient. Medical Decision Making: Problems: Moderate: 2+ stable chronic illnesses Data: Unique test(s) ordered: 3+ Risk: Moderate: Drug management Medical Decision Making Level: 4 - Moderate Binu Solis MD The documentation for this note was completed by Marilin Schaffer Ma acting as scribe for Binu Solis MD. March 09, 2023 9:37 AM. Marilin Schaffer Ma documented in this encounter [facility] 03-09-2023 Note HNO ID: [id number] Author: Binu Solis MD Service: ? Author Type: Physician Type: Progress Notes Filed: 03/09/2023 9:58 AM Note Text: Chief Complaint Patient presents with: 6 Month Exam HPI Valentina Cabrera is a 78 year old male who [...] reviewed None ASSESSMENT/PLAN: (more content not included)... [facility] 03-01-2023 History of Presen t illness Narrative [...] Discontinued PROCEDURE TYPE: NM Stress: 12.3 mCi [id number] was administered IV for Rest Imaging at 07:12 by Lulú Goncalves. 33.4 mCi [id number]-Yjsmzuu was administered IV for Stress Imaging at 08:35 by Lulú Goncalves. ADMINISTRATION TIME: PATIENT DISCHARGED TO: Ambulatory patient, left [place] department area. A Diagnostic radioactive procedure has taken place, with no further precautions necessary other than routine body substance precautions. More information regarding radiation safety can be found using this link: [email or web address]-%[email or web address]%20N uclear%20Medicine%20Procedures.p df SIGNATURE: GABRIELLA Martinez) PATIENT NAME: Valentina Cabrera DATE: March 01, 2023 TIME: 09:25 AM PAGER/CONTACT #: documented in this encounter [facility] 03-01-2023 Note HNO ID: [id number] Author: Lulú Goncalves RT (R) Service: Nuclear Medicine Author Type: Technologist Type: [...] Discontinued PROCEDURE TYPE: NM Stress: 12.3 mCi [id number] was administered IV for Rest Imaging at 07:12 by Lulú Goncalves. 33.4 mCi Qn42i-Zsmafrp was administered IV for Stress Imaging at 08:35 by Lulú Goncalves. ADMINISTRATION TIME: PATIENT DISCHARGED TO: Ambulatory patient, left [place] department area. A Diagnostic radioactive procedure has taken place, with no further precautions necessary other than routine body substance precautions. More information regarding radiation safety can be found using this link: [email or web address] %[email or web address]-%20Diagnostic%20Nuclear%20Me dicine%20Procedures.pdf SIGNATURE: RT Juan(R) PATIENT NAME: Valentina Cabrear DATE: March 01, 2023 TIME: 09:25 AM PAGER/CONTACT #: [facility] 01-21-2023 History of Presen t illness Narrative Images from the original note were not included. Patient: Valentina Cabrera PCP: Binu Solis MD CC: follow up HPI: Valentina Cabrera 78 year old male never smoker with [...] other lower urinary tract symptoms (LUTS) 07/05/2007 half-way (current) use of inhaled steroids Lumbar discogenic [...] that is scheduled in April with Dr. Bustamante. - OMEPRAZOLE 40 MG CAPSULE,DELAYED RELEASE 3. [...] Becky Fierro PA-C documented in this encounter [facility] 12-11-2022 Miscellaneous Notes Spoke with patient. Fluticasone [...] up? Please review and advise patient. Blanca Bustamante LPN documented in this encounter [facility] 12-10-2022 Procedure note Associated Ord er(s): NITRIC [...] 22.0 NAME: MAICOL Velazco PATIENT NAME: Valentina Cabrera DATE: December 10, 2022 TIME: 9:14 AM documented in this encounter [facility] 12-10-2022 History of Presen t illness Narrative PULM FUNCTION SMARTBLOCK: Provider: Becky Fierro PA-C Assisting Tech: Tawana Moore RPFT Exhaled Nitric Oxide: 1 documented in this encounter [facility] 12-10-2022 History of Presen t illness Narrative Images from the original note were not included. Patient: Valentina Cabrera PCP: Binu Solis MD CC: follow-up cough variant asthma HPI: Valentina Cabrera 77 year old male never smoker with [...] Ref Range & Units 2 mo ago [place] IgE <0.35 kU/l <0.35 [place] Class Class 0 Class 0 Eddie [...] Becky Fierro PA-C documented in this encounter [facility] 12-07-2022 Miscellaneous Notes Spoke with patient by phone. [facility] to deliver Dulera in 3-5 days. He has 3 days of medication available currently. Advised patient to contact the office should he need a temporary supply of Dulera sent locally. Bessy Barron LPN documented in this encounter [facility] 09-18-2022 Miscellaneous Notes Patient phones requesting refills as follows: Requested Prescriptions Pending Prescriptions Disp Refills albuterol HFA (PROVENTIL HFA, VENTOLIN HFA) 90 mcg/actuation inhaler 3 Each 3 Sig: Inhale 2 Puffs as instructed every 4 hours as needed for wheezing/shortness of breath. Please review and advise. Bessy Barron LPN documented in this encounter [facility] 09-08-2022 History of Presen t illness Narrative Chief Complaint Patient presents with: 6 Month Exam HPI Valentina Cabrera is a 77 year old male who presents here today for 6 month follow up. He has an advanced directive, just recently updated it with his Laundry Supervisor. Will bring updated copy for our records. [...] mg BID. Asthma: Follows with Pulm Dr. Bustamante. Is currently using Singulair 10 mg daily, [...] Past Histories independently gathered by the clinical sales support engineer and the remaining scribed note accurately describes my personal service to the patient. Medical Decision Making: Problems: Moderate: 2+ stable chronic illnesses Data: Unique test(s) ordered: 3+ Risk: Moderate: Drug management Medical Decision Making Level: 4 - Moderate Binu Solis MD The documentation for this note was completed by Natalie Youngblood Ma acting as scribe for Binu Solis MD. September 08, 2022 9:29 AM. Natalie Youngblood Ma documented in this encounter [facility] 08-24-2022 Miscellaneous Notes Patient phones requesting refills as follows: He would like a 3 month supply sent to his mail order pharmacy. Requested Prescriptions Pending Prescriptions Disp Refills mometasone-formoterol (DULERA) 100-5 mcg/actuation inhaler 1 Each 5 Sig: Inhale 2 Puffs as instructed twice daily. Please review and advise. Kamala Saunders Ma documented in this encounter [facility] 08-19-2022 History of Presen t illness Narrative Radiology Service Progress Note PATIENT NAME: Valentina Cabrera DATE OF SERVICE: August 19, 2022 TIME: [...] RT Carina(R) August 19, 2022 9:18 AM documented in this encounter [facility] 08-19-2022 History of Presen t illness Narrative Images from the original note were not included. Subjective HPI HPI Valentina Cabrera is a 77 year old male who [...] other lower urinary tract symptoms (LUTS) 07/05/2007 half-way (current) use of inhaled steroids Lumbar discogenic [...] VAIL MD - PREDNISONE 10 MG TABLET Mich Mathis APRN.ACOUSTICS TEACHER documented in this encounter [facility] 07-09-2022 History of Presen t illness Narrative Images from the original note were not included. . [facility] [place] Note Patient name: Valentina Cabrera PCP: Binu Solis MD CC: Follow-up asthma HPI: Valentina Cabrera 77 year old male never smoker with [...] Ref Range & Units 2 mo ago [place] IgE <0.35 kU/l <0.35 [place] Class Class 0 Class 0 Eddie [...] other lower urinary tract symptoms (LUTS) 07/05/2007 half-way (current) use of inhaled steroids Lumbar discogenic [...] 6 months or sooner with problems Genie Bustamante MD [facility] [place] documented in this encounter [facility] 05-13-2022 Instructions Betty Barraza APRN.ACOUSTICS TEACHER - 05/13/2022 9:10 AM EST Continue supportive care at home. May use over the counter cold and cough medication as needed. Stay well hydrated. May use Tessalon Perles three times daily for cough. Get lab completed. Start Singulair 10 mg at bedtime. Get repeat chest xray in 1 month. Follow up pending test results or sooner as needed. documented in this encounter [facility] 05-13-2022 History of Presen t illness Narrative This is a 77 year old male who presents today with: Patient presents with: Follow Up: From . coughing and fatique HISTORY OF PRESENT ILLNESS: Valentina Cabrera is a 77 year old male. Patient presents with: Follow Up: From . coughing and fatique Here in the office for follow up. Has been seen several times in family medicine and [facility] care for cold/URI symptoms. Was seen [...] other lower urinary tract symptoms (LUTS) 07/05/2007 half-way (current) use of inhaled steroids Lumbar discogenic [...] R05.1 - May use Tessalon Perles or vtjn-dri-ciealwa cold and cough medication as needed for [...] discussed and patient voices understanding. Betty Barraza APRN.CNP This note was partially generated using UpNext voice recognition system. Note was reviewed for accuracy. There may be minor misspellings or grammar miscues with UpNext voice recognition. documented in this encounter [facility] 05-10-2022 Instructions Moi Plummer APRN.CNP - 05/10/2022 10:23 AM EST How to [...] concerning to you. documented in this encounter [facility] 05-10-2022 History of Presen t illness Narrative [...] of care. This note was generated using UpNext software. It may contain errors in wording, punctuation, or spelling. Moi Plummer APRN.LEAH documented in this encounter [facility] 05-03-2022 History of Presen t illness Narrative CC: Patient presents with: Cough: Pt reported chest congestion , x10 days. HPI: Valentina Cabrera is a 77 year old male who [...] other lower urinary tract symptoms (LUTS) 07/05/2007 half-way (current) use of inhaled steroids Lumbar discogenic [...] Camila Comer APRN.LEAH documented in this encounter [facility] 04-30-2022 Miscellaneous Notes Patient notified of results, verbalizes understanding of instructions. Bere Goodman LPN Can you please call the patient and let him know that his flu and COVID test were negative. I would still recommend that he continue supportive care at home, may use any kwyp-pcb-nstjhjf cold and cough medications as needed for symptom management. As discussed during office visit if congestion and sinus drainage is getting worse I can send in an antibiotic. Please let me know how he is doing. Thank you. Betty Barraza APRN.ACOUSTICS TEACHER documented in this encounter [facility] 04-10-2022 History of Presen t illness Narrative Patient: Valentina Cabrera PCP: Binu Solis MD CC: cough and SOB HPI: Valentina Cabrera 77 year old male never smoker PMH [...] Signed On 03-11-2022 13:12:56 EDT by Genie Brown, M.D. ASSESSMENT/PLAN: 1. Cough variant asthma - ICD9: 493.82, ICD10: J45.991 (primary diagnosis) DAMARI negative in 2014. However, patient symptoms and PFT consistent with [...] BLD - EOSINOPHIL ABS COUNT - ALGN RESERVE GRP 4. History of COVID-19 - ICD9: V12.09, ICD10: Z86.16 5. 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 documented in this encounter [facility] 03-19-2022 Miscellaneous Notes OK to refill as ordered Binu Solis MD Patient phones requesting refills as follows: [...] Bere Goodman LPN documented in this encounter [facility] 03-12-2022 Miscellaneous Notes See separate phone encounter. Bessy Barron LPN documented in this encounter [facility] 03-11-2022 History of Presen t illness Narrative Chief Complaint Patient presents with: F/U 6 Month HPI Valentina Cabrera is a 77 year old male who presents here today for 6 month follow up. Pt here today for a 6 month follow up. Recently seen by Betty Barraza CNP and Pulmonary. GI/Uro - Denies any stomach or bowel issues, uses Miralax daily, doing well. Currently taking Flomax 0.4 mg once daily, which works well for him. Last PSA done 09/04/21. GERD - Stable with use of Prilosec 20 mg once daily. Asthma - Has been being seen by Betty Barraza CNP and Pulmonary due to increased sob and [...] of feeling ill. Pt notes that Dr. Bustamante is unsure if this is related to [...] occurred since before being on depression medications. HM - Asking about Flu Covid vaccine and [...] other lower urinary tract symptoms (LUTS) 07/05/2007 half-way (current) use of inhaled steroids Lumbar discogenic [...] Never done COVID-19 VACCINE(5 - Booster for MaxPreps series) due on 10/24/2021 INFLUENZA(1) due on [...] Lymph (Normal + Reac* 02/23/2022 6.15 (A) Waldo% 02/23/2022 5.0 Abs Waldo 02/23/2022 0.70 Eosin% 02/23/2022 1.0 Abs Eosin 02/23/2022 0.14 Baso% 02/23/2022 0.0 Abs Baso 02/23/2022 0.00 Realym% 02/23/2022 1.0 [place] % 02/23/2022 2.0 Myelo % 02/23/2022 1.0 [...] Lymph% 01/26/2022 35.8 Abs Lymph 01/26/2022 2.61 Waldo% 01/26/2022 7.0 Abs [place]do 01/26/2022 0.51 Eosin% 01/26/2022 0.5 Abs Eosin [...] Past Histories independently gathered by the clinical sales support engineer and the remaining scribed note accurately describes my personal service to the patient. Medical Decision Making: Problems: Moderate: 2+ stable chronic illnesses Risk: Moderate: Drug management Medical Decision Making Level: 4 - Moderate Binu Solis MD The documentation for this note was completed by Natalie Youngblood Ma acting as scribe for Binu Solis MD. March 11, 2022 1:26 PM. Natalie Youngblood Ma documented in this encounter [facility] 03-11-2022 Procedure note Associated Ord er(s): NITRIC [...] 22.0 NAME: MAICOL Velazco PATIENT NAME: Valentina Cabrera DATE: March 11, 2022 TIME: 9:13 AM documented in this encounter [facility] 03-11-2022 History of Presen t illness Narrative PULM FUNCTION SMARTBLOCK: Provider: Genie Bustamante MD Assisting Tech: MAICOL Velazco Spirometry: 1 LV - Box: 1 Exhaled Nitric Oxide: 1 documented in this encounter [facility] 02-27-2022 History of Presen t illness Narrative Images from the original note were not included. . [facility] [place] Note Patient name: Valentina Cabrera PCP: Binu Solis MD CC: Shortness of breath HPI: Valentina Cabrera 77 year old male never smoker with [...] steroids. Chest x-ray without any infiltrates. DATA: [facility] 2014: Negative for bronchial hyperactivity. 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 Thank you. Betty Barraza APRN.LEAH documented in this encounter [facility] 02-23-2022 History of Presen t illness Narrative Radiology Service Progress Note PATIENT NAME: Valentina Cabrera DATE OF SERVICE: February 23, 2022 TIME: 12:00 PM PATIENT IDENTITY VERIFICATION COMPLETED USING TWO (2) IDENTIFIERS: Name and Date of confirmed by patient verbally. FALL SCREENING: Has the patient had 2 falls in the last year or 1 fall with injury or currently using an Ambulatory Assistive Device (Walker, Cane, Wheelchair, Crutches, etc.)? No PATIENT GENDER DATA: Male PATIENT RELEVANT IMPLANT DATA REVIEWED: Not Applicable RADIOLOGY DEPARTMENT: General X-ray: Exam(s) Completed: Chest X-Ray PERIPHERAL IV DATA: Not applicable SIGNED BY: RT Mark(R) February 23, 2022 12:00 PM documented in this encounter [facility] 02-23-2022 Instructions Betty Barraza APRN.ACOUSTICS TEACHER - 02/23/2022 11:46 AM EDT Get lab work & chest Xray done today Start doxycycline twice a day, take with food Continue to take all medication as prescribed Red flag symptoms, go to ER Follow up pending test results or sooner as needed documented in this encounter [facility] 02-23-2022 History of Presen t illness Narrative This is a 77 year old male who presents today with: Patient presents with: Follow Up: congestion and urgent care follow up HISTORY OF PRESENT ILLNESS: Valentina Cabrera is a 77 year old male. Patient [...] APRN.LEAH This note was partially generated using UpNext voice recognition system. Note was reviewed for accuracy. There may be minor misspellings or grammar miscues with UpNext voice recognition. documented in this encounter [facility] 02-16-2022 Miscellaneous Notes patient viewed in [employer]. Martha Mccormick Negative for flu and covid documented in this encounter [facility] 02-15-2022 History of Presen t illness Narrative CC: Patient presents with: Flu Like Symptoms: Chest congestion, SOB x 1 week, is covid positive Patient is been sick for about 10 days altogether. Patient did say over the last few days he seems to have more respiratory issues. Patient's tested positive on Wednesday for COVID. HPI: Valentina Cabrera is a 77 year old male who [...] other lower urinary tract symptoms (LUTS) 07/05/2007 half-way (current) use of inhaled steroids Lumbar discogenic [...] Camila Comer APRN.LEAH documented in this encounter [facility] 02-06-2022 Instructions Betty Barraza APRN.CNP - 02/06/2022 9:27 AM EDT 1.) Flu/COVID test should be back by tomorrow. 2.) May use wiit-uvt-upzettr cold and cough medications as needed for [...] antibodies. Schedule a virtual visit with a provider/[facility] care and they may place that order for you. 6.) Follow-up as needed. documented in this encounter [facility] 02-06-2022 History of Presen t illness Narrative This is a 77 year old male who presents today with: Patient presents with: Acute Visit: beth RAMOS HISTORY OF PRESENT ILLNESS: Valentina Cabrera is a 77 year old male. Patient [...] other lower urinary tract symptoms (LUTS) 07/05/2007 half-way (current) use of inhaled steroids Lumbar discogenic [...] APRN.LEAH This note was partially generated using UpNext voice recognition system. Note was reviewed for accuracy. There may be minor misspellings or grammar miscues with UpNext voice recognition. documented in this encounter [facility] 12-03-2021 History of Presen t illness Narrative [...] his mood and medication change. HPI: Valentina Cabrera is a 76 year old Male with [...] Enjoyed helping out and attending [facility] Interval Progress: Improved Risks and benefits of [...] which included preparing to see the patient, ppgy-ou-tcha patient care, completing clinical documentation, and counseling and educating the patient/family/caregiver, ordering medications/labs and communicating with other healthcare providers. Berkley Roque APRN.LEAH December 03, 2021 10:30 AM This note was partially generated using UpNext voice recognition system. Note was reviewed for accuracy. There may be minor misspellings or grammar miscues with UpNext voice recognition. documented in this encounter [facility] 09-03-2021 History of Presen t illness Narrative Chief Complaint Patient presents with: 6 Month Exam HPI Valentina Cabrera is a 76 year old male who [...] Past Histories independently gathered by the clinical sales support engineer and the remaining scribed note accurately describes my personal service to the patient. Medical Decision Making: Problems: Moderate: 2+ stable chronic illnesses Data: Unique test(s) ordered: 3+ Risk: Moderate: Drug management Medical Decision Making Level: 4 - Moderate Binu Solis MD The documentation for this note was completed by Marilin Schaffer Ma acting as scribe for Binu Solis MD. September 03, 2021 12:51 PM. Marilin Schaffer Ma documented in this encounter [facility] 08-27-2021 Instructions Berkley Roque APRN.CNP - 08/27/2021 11:33 AM EDT Irasema Montgomery, It was good to talk with you today. Below is a summary of the plan that we discussed during your appointment for reference. Of course, if you have any questions or concerns do not hesitate to reach out to me via a message or call. Marcus, Berkley Roque APRN.LEAH PLAN AND FOLLOW UP: YOU SHOULD SEEK [...] - Call the National Suicide Hotline at 9-356-HDALEAV ( ) or 9-634-418-TALK (2851) - Text 4HHJU to 552075 Medication Update: 1. Nortriptyline 50 mg take 1 capsule twice daily with food and peanut butter Next appointment: --Schedule in 3 months or sooner if needed -- You may call the department appointment line at [phone] to schedule your appointment. -- Please call my nurse Kelly at [phone] or send me a message in Tictail with any questions or concerns between appointments. documented in this encounter [facility] 08-27-2021 History of Presen t illness Narrative [...] next appointment. CC: Medication change HPI: Valentina Cabrera is a 76 year old Male with [...] which included preparing to see the patient, ezav-ih-hksm patient care, completing clinical documentation, and counseling and educating the patient/family/caregiver, ordering medications/labwork. 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 Neoplasm of uncertain behavior of skin 9 06/12/2014 Shortness of breath 09/01/2006 06/12/2014 Abdominal pain, generalized 03/19/200605/31 documented as of this encounter (statuses as of 08/27/2021) [facility] History of Past illness Narrative* Problem Noted Date Resolved Date Shortness of breath 02/12/2016 06/29/2016 Achilles tendinitis 10/04/2012 04/17/2015 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 Neoplasm of uncertain behavior of skin 9 06/12/2014 Shortness of breath 09/01/2006 06/12/2014 Abdominal pain, generalized 03/19/200605/31 documented as of this encounter (statuses as of 09/04/2021) [facility] History of Past illness Narrative* Problem Noted Date Resolved Date Shortness of breath 02/12/2016 06/29/2016 Achilles tendinitis 10/04/2012 04/17/2015 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 Neoplasm of uncertain behavior of skin 9 06/12/2014 Shortness of breath 09/01/2006 06/12/2014 Abdominal pain, generalized 03/19/200605/31 documented as of this encounter (statuses as of 12/03/2021) [facility] History of Past illness Narrative* Problem Noted Date Resolved Date Shortness of breath 02/12/2016 06/29/2016 Achilles tendinitis 10/04/2012 04/17/2015 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 Neoplasm of uncertain behavior of skin 9 06/12/2014 Shortness of breath 09/01/2006 06/12/2014 Abdominal pain, generalized 03/19/200605/31 documented as of this encounter (statuses as of 02/06/2022) [facility] History of Past illness Narrative* Problem Noted Date Resolved Date Shortness of breath 02/12/2016 06/29/2016 Achilles tendinitis 10/04/2012 04/17/2015 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 Neoplasm of uncertain behavior of skin 9 06/12/2014 Shortness of breath 09/01/2006 06/12/2014 Abdominal pain, generalized 03/19/200605/31 documented as of this encounter (statuses as of 02/15/2022) [facility] History of Past illness Narrative* Problem Noted Date Resolved Date Shortness of breath 02/12/2016 06/29/2016 Achilles tendinitis 10/04/2012 04/17/2015 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 Neoplasm of uncertain behavior of skin 9 06/12/2014 Shortness of breath 09/01/2006 06/12/2014 Abdominal pain, generalized 03/19/200605/31 documented as of this encounter (statuses as of 02/16/2022) [facility] History of Past illness Narrative* Problem Noted Date Resolved Date Shortness of breath 02/12/2016 06/29/2016 Achilles tendinitis 10/04/2012 04/17/2015 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 Neoplasm of uncertain behavior of skin 9 06/12/2014 Shortness of breath 09/01/2006 06/12/2014 Abdominal pain, generalized 03/19/200605/31 documented as of this encounter (statuses as of 02/23/2022) [facility] History of Past illness Narrative* Problem Noted Date Resolved Date Shortness of breath 02/12/2016 06/29/2016 Achilles tendinitis 10/04/2012 04/17/2015 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 Neoplasm of uncertain behavior of skin 9 06/12/2014 Shortness of breath 09/01/2006 06/12/2014 Abdominal pain, generalized 03/19/200605/31 documented as of this encounter (statuses as of 02/25/2022) [facility] History of Past illness Narrative* Problem Noted Date Resolved Date Shortness of breath 02/12/2016 06/29/2016 Achilles tendinitis 10/04/2012 04/17/2015 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 Neoplasm of uncertain behavior of skin 9 06/12/2014 Shortness of breath 09/01/2006 06/12/2014 Abdominal pain, generalized 03/19/200605/31 documented as of this encounter (statuses as of 02/27/2022) [facility] History of Past illness Narrative* Problem Noted Date Resolved Date Shortness of breath 02/12/2016 06/29/2016 Achilles tendinitis 10/04/2012 04/17/2015 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 Neoplasm of uncertain behavior of skin 9 06/12/2014 Shortness of breath 09/01/2006 06/12/2014 Abdominal pain, generalized 03/19/200605/31 documented as of this encounter (statuses as of 03/11/2022) [facility] History of Past illness Narrative* Problem Noted Date Resolved Date Shortness of breath 02/12/2016 06/29/2016 Achilles tendinitis 10/04/2012 04/17/2015 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 Neoplasm of uncertain behavior of skin 9 06/12/2014 Shortness of breath 09/01/2006 06/12/2014 Abdominal pain, generalized 03/19/200605/31 documented as of this encounter (statuses as of 03/12/2022) [facility] History of Past illness Narrative* Problem Noted Date Resolved Date Shortness of breath 02/12/2016 06/29/2016 Achilles tendinitis 10/04/2012 04/17/2015 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 Neoplasm of uncertain behavior of skin 9 06/12/2014 Shortness of breath 09/01/2006 06/12/2014 Abdominal pain, generalized 03/19/200605/31 documented as of this encounter (statuses as of 03/12/2022) [facility] History of Past illness Narrative* Problem Noted Date Resolved Date Shortness of breath 02/12/2016 06/29/2016 Achilles tendinitis 10/04/2012 04/17/2015 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 Neoplasm of uncertain behavior of skin 9 06/12/2014 Shortness of breath 09/01/2006 06/12/2014 Abdominal pain, generalized 03/19/200605/31 documented as of this encounter (statuses as of 03/16/2022) [facility] History of Past illness Narrative* Problem Noted Date Resolved Date Shortness of breath 02/12/2016 06/29/2016 Achilles tendinitis 10/04/2012 04/17/2015 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 Neoplasm of uncertain behavior of skin 200 9 06/12/2014 Shortness of breath 09/01/2006 06/12/2014 Abdominal pain, generalized 03/19/200605/31 documented as of this encounter (statuses as of 03/17/2022) [facility] History of Past illness Narrative* Problem Noted Date Resolved Date Shortness of breath 02/12/2016 06/29/2016 Achilles tendinitis 10/04/2012 04/17/2015 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 Neoplasm of uncertain behavior of skin 9 06/12/2014 Shortness of breath 09/01/2006 06/12/2014 Abdominal pain, generalized 03/19/200605/31 documented as of this encounter (statuses as of 03/19/2022) [facility] History of Past illness Narrative* Problem Noted Date Resolved Date Shortness of breath 02/12/2016 06/29/2016 Achilles tendinitis 10/04/2012 04/17/2015 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 Neoplasm of uncertain behavior of skin 9 06/12/2014 Shortness of breath 09/01/2006 06/12/2014 Abdominal pain, generalized 03/19/200605/31 documented as of this encounter (statuses as of 03/20/2022) [facility] History of Past illness Narrative* Problem Noted Date Resolved Date Shortness of breath 02/12/2016 06/29/2016 Achilles tendinitis 10/04/2012 04/17/2015 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 Neoplasm of uncertain behavior of skin 9 06/12/2014 Shortness of breath 09/01/2006 06/12/2014 Abdominal pain, generalized 03/19/200605/31 documented as of this encounter (statuses as of 04/01/2022) [facility] History of Past illness Narrative* Problem Noted Date Resolved Date Shortness of breath 02/12/2016 06/29/2016 Achilles tendinitis 10/04/2012 04/17/2015 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 Neoplasm of uncertain behavior of skin 9 06/12/2014 Shortness of breath 09/01/2006 06/12/2014 Abdominal pain, generalized 03/19/200605/31 documented as of this encounter (statuses as of 04/10/2022) [facility] History of Past illness Narrative* Problem Noted Date Resolved Date Shortness of breath 02/12/2016 06/29/2016 Achilles tendinitis 10/04/2012 04/17/2015 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 Neoplasm of uncertain behavior of skin 9 06/12/2014 Shortness of breath 09/01/2006 06/12/2014 Abdominal pain, generalized 03/19/200605/31 documented as of this encounter (statuses as of 04/30/2022) [facility] History of Past illness Narrative* Problem Noted Date Resolved Date Shortness of breath 02/12/2016 06/29/2016 Achilles tendinitis 10/04/2012 04/17/2015 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 Neoplasm of uncertain behavior of skin 9 06/12/2014 Shortness of breath 09/01/2006 06/12/2014 Abdominal pain, generalized 03/19/200605/31 documented as of this encounter (statuses as of 05/03/2022) [facility] History of Past illness Narrative* Problem Noted Date Resolved Date Shortness of breath 02/12/2016 06/29/2016 Achilles tendinitis 10/04/2012 04/17/2015 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 Neoplasm of uncertain behavior of skin 9 06/12/2014 Shortness of breath 09/01/2006 06/12/2014 Abdominal pain, generalized 03/19/200605/31 documented as of this encounter (statuses as of 05/10/2022) [facility] of Past illness Narrative* Problem Noted Date Resolved Date Shortness of breath 02/12/2016 06/29/2016 Achilles tendinitis 10/04/2012 04/17/2015 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 Neoplasm of uncertain behavior of skin 9 06/12/2014 Shortness of breath 09/01/2006 06/12/2014 Abdominal pain, generalized 03/19/200605/31 documented as of this encounter (statuses as of 05/13/2022) [facility] of Past illness Narrative* Problem Noted Date Resolved Date Shortness of breath 02/12/2016 06/29/2016 Achilles tendinitis 10/04/2012 04/17/2015 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 Neoplasm of uncertain behavior of skin 9 06/12/2014 Shortness of breath 09/01/2006 06/12/2014 Abdominal pain, generalized 03/19/200605/31 documented as of this encounter (statuses as of 07/09/2022) [facility] of Past illness Narrative* Problem Noted Date Resolved Date Shortness of breath 02/12/2016 06/29/2016 Achilles tendinitis 10/04/2012 04/17/2015 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 Neoplasm of uncertain behavior of skin 9 06/12/2014 Shortness of breath 09/01/2006 06/12/2014 Abdominal pain, generalized 03/19/200605/31 documented as of this encounter (statuses as of 08/19/2022) [facility] of Past illness Narrative* Problem Noted Date Resolved Date Shortness of breath 02/12/2016 06/29/2016 Achilles tendinitis 10/04/2012 04/17/2015 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 Neoplasm of uncertain behavior of skin 9 06/12/2014 Shortness of breath 09/01/2006 06/12/2014 Abdominal pain, generalized 03/19/200605/31 documented as of this encounter (statuses as of 08/24/2022) [facility] History of Past illness Narrative* Problem Noted Date Resolved Date Shortness of breath 02/12/2016 06/29/2016 Achilles tendinitis 10/04/2012 04/17/2015 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 Neoplasm of uncertain behavior of skin 9 06/12/2014 Shortness of breath 09/01/2006 06/12/2014 Abdominal pain, generalized 03/19/200605/31 documented as of this encounter (statuses as of 09/08/2022) [facility] History of Past illness Narrative* Problem Noted Date Resolved Date Shortness of breath 02/12/2016 06/29/2016 Achilles tendinitis 10/04/2012 04/17/2015 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 Neoplasm of uncertain behavior of skin 9 06/12/2014 Shortness of breath 09/01/2006 06/12/2014 Abdominal pain, generalized 03/19/200605/31 documented as of this encounter (statuses as of 09/18/2022) [facility] History of Past illness [...] of this encounter (statuses as of 12/07/2022) [facility] History of Past illness [...] of this encounter (statuses as of 12/10/2022) [facility] History of Past illness Narrative* Problem Noted Date Diagnosed Date Resolved Date Shortness of breath 02/12/2016 06/29/19 17 Achilles tendinitis 10/04/2012 04/17/20 15 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 03/25/2006/12/2014 Neoplasm of uncertain behavior of skin 01/23/2009 06/12/2014 Shortness of breath 09/01/2006 06/12/19 15 Abdominal pain, generalized 03/19/2006 06/12/2014 documented as of this encounter (statuses as of 12/10/2022) [facility] History of Past illness [...] of this encounter (statuses as of 12/11/2022) [facility] History of Past illness [...] of this encounter (statuses as of 12/28/2022) [facility] History of Past illness [...] of this encounter (statuses as of 01/21/2023) [facility] History of Past illness [...] of this encounter (statuses as of 03/09/2023) [facility] History of Past illness [...] of this encounter (statuses as of 04/02/2023) [facility] History of Past illness [...] of this encounter (statuses as of 04/19/2023) [facility] History of Past illness [...] of this encounter (statuses as of 05/03/2023) [facility] History of Past illness [...] of this encounter (statuses as of 07/02/2023) [facility] Diagnosis Recurrent major depressive disorder, in full remission (HCC)- Primary [facility] [place] [facility] Diagnosis Essential hypertension, benign- Primary Encounter for hepatitis C screening test for low risk patient Benign non-nodular prostatic hyperplasia with lower urinary tract symptoms Recurrent major depressive disorder, in full remission (HCC) documented [facility] this encounter [facility] [place] [facility]* Diagnosis Recurrent major depressive disorder, in full remission (HCC)- Primary [facility] [place] [facility]* Diagnosis Viral illness- Primary Unspecified viral infection, in conditions classified elsewhere and of unspecified site Acute cough [facility] this [facility] [place] [facility]* Diagnosis At increased risk of exposure to COVID-19 virus- Primary [facility] [place] [facility]* Diagnosis SOB (shortness of breath)- Primary Shortness of breath Bronchitis Bronchitis, not specified as acute or chronic Fatigue, unspecified type documented [facility] this encounter [facility] [place] [facility]* Diagnosis SOB (shortness of breath)- Primary Shortness of breath 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 History of environmental allergies Other allergy, other than to medicinal agents History of COVID-19 documented [facility] this encounter [facility] [place] [facility]* Diagnosis SOB (shortness of breath) Shortness of breath [facility] [place] [facility] Diagnosis SOB (shortness of breath) Shortness of breath [facility] [place] [facility]* Diagnosis Essential hypertension, benign- Primary Recurrent major depressive disorder, in full remission (HCC) Benign non-nodular prostatic hyperplasia with lower urinary tract symptoms SOB (shortness of breath) Shortness of breath Fatigue, unspecified type 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 documented [facility] this [facility] [place] [facility]* Diagnosis Cough variant asthma- Primary SOB (shortness of breath) Shortness of breath History of environmental allergies Other allergy, other than to medicinal agents History of COVID-19 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 documented [facility] this encounter [facility] [place] [facility]* Diagnosis URI, acute- Primary Acute upper respiratory infections of unspecified site Rhinosinusitis Unspecified sinusitis (chronic) documented in this [facility] [place] [facility]* Diagnosis Viral illness- Primary Unspecified viral infection, in conditions classified elsewhere and of unspecified site Acute cough [facility] this [facility] [place] [facility]* Diagnosis SOB (shortness of breath)- Primary Shortness of breath Acute cough Moderate persistent asthma without complication Unspecified asthma documented [facility] this [facility] [place] [facility]* Diagnosis Cough variant asthma- Primary documented [facility] this encounter [facility] [place] [facility]* Diagnosis Rib pain on right side- Primary Chest pain, unspecified documented [facility] this encounter [facility] [place] [facility]* Diagnosis SOB (shortness of breath) Shortness of breath documented [facility] this encounter [facility] [place] [facility]* Diagnosis Essential hypertension, benign- Primary Recurrent major depressive disorder, in full remission (HCC) Benign non-nodular prostatic hyperplasia with lower urinary tract symptoms Moderate persistent asthma without complication Unspecified asthma Musculoskeletal pain Mylagia and myositis, unspecified Thrombocyte disorder (HCC) Qualitative platelet defects Elevated glucose Other abnormal glucose documented [facility] this [facility] [place] [facility]* Diagnosis Cough variant asthma documented [facility] [place] [facility]* Diagnosis Cough variant asthma- Primary SOB (shortness of breath) Shortness of breath History of environmental allergies Other allergy, other than to medicinal agents documented in this encounter [facility] note* Diagnosis Cough variant asthma- Primary Gastroesophageal reflux disease, unspecified whether esophagitis present History of environmental allergies Other allergy, other than to medicinal agents History of COVID-19 documented in this encounter [facility] note* Diagnosis Essential hypertension, benign- Primary Moderate persistent asthma without complication Unspecified asthma Benign non-nodular prostatic hyperplasia with lower urinary tract symptoms Recurrent major depressive disorder, in full remission (HCC) Anxiety Anxiety state, unspecified Low platelet count (HCC) documented in this encounter [facility] note* Diagnosis PERSON (dyspnea on exertion) Other dyspnea and respiratory abnormality Essential hypertension, benign documented in this encounter [facility] note* Diagnosis SOB (shortness of breath) Shortness of breath Cough variant asthma documented in this encounter [facility] note* Diagnosis SOB (shortness of breath) Shortness of breath Cough variant asthma documented in this encounter [facility] note* Diagnosis Hypertension, essential Unspecified essential hypertension documented in this encounter [facility] note* Diagnosis Cough variant asthma documented in this encounter [facility] note* Diagnosis Mild persistent asthma without complication- Primary Unspecified asthma Seasonal allergies Allergic rhinitis, cause unspecified documented in this encounter [facility] note* Diagnosis URI, acute- Primary Acute upper respiratory infections of unspecified site documented in this encounter [facility] note* Diagnosis Subacute cough- Primary Cough History of COVID-19 Mild persistent asthma without complication Unspecified asthma Seasonal allergies Allergic rhinitis, cause unspecified Gastroesophageal reflux disease, unspecified whether esophagitis present Tachycardia Tachycardia, unspecified documented in this encounter [facility] note* Diagnosis SOB (shortness of breath) Shortness of breath documented in this encounter [facility] note* Diagnosis Acute cough documented in this encounter [facility] note* Diagnosis Acute cough documented in this encounter [facility] for referral (narrative)* Outpatient Procedure (Routine) - Authorized Specialty Diagnoses / Procedures Referred By Anne t Referred To Contact [facility] Diagnoses SOB (shortness of breath) Procedures LUNG VOLUMES Genie Bustamante MD [address] [place] [address] Res[facility] [place] [address] [place] [address] Referral ID Status Reason Start Date Expiration Date Visits Requested Visits Authorized [id number] Authorized Auto-Generat ed Referral 02/27/2022 03/29/2023 1 1 * Outpatient Procedure (Routine) - Authorized Specialty Diagnoses / Procedures Referred By Contac t Referred To Contact [facility] Diagnoses SOB (shortness of breath) Procedures NITRIC OXIDE, EXHALED NITRIC OXIDE GAS DETERMINATION Genie Bustamante MD [address] [place] [address] [address] Referral ID Status Reason Start Date Expiration Date Visits Requested Visits Authorized [id number] Authorized Auto-Generat ed Referral 02/27/2022 03/29/2023 1 1 * Outpatient Procedure (Routine) - Authorized Specialty Diagnoses / Procedures Referred By Contac t Referred To Contact [facility] Diagnoses SOB (shortness of breath) Procedures SPIROMETRY WITH DILATOR IF OBSTRUCTED BRNCDILAT RSPSE SPMTRY PRE&POST-BRNCDILAT ADMN Genie Bustamante MD [address] [place] [address] [address] Referral ID Status Reason Start Date Expiration Date Visits Requested Visits Authorized [id number] Authorized Auto-Generat ed Referral 02/27/2022 03/29/[address] [facility] for referral (narrative)* Diagnostic Procedure Only (Urgent) - Closed Specialty Diagnoses / Procedures Referred By Contac t Referred To Contact XR IMAGING Diagnoses Rib pain on right side Procedures XR RIBS/CHEST 3V AP RIB/OBLS/CXR RIGHT RADEX RIBS UNI W/POSTEROANT CH MINIMUM 3 VIEWS Mich Mathis APRN.[employer] [address] [place] [address] Xr Imaging Referral ID Status Reason Start Date Expiration Date V isits Requested Visits Authorized [id number] Closed Auto-Generate d Referral 08/19/2022 09/18/[address] [facility] for referral (narrative)* Outpatient Procedure (Routine) - Closed Specialty Diagnoses / Procedures Referred By Contac t Referred To Contact [facility] Diagnoses Cough variant asthma Procedures NITRIC OXIDE, EXHALED NITRIC OXIDE GAS DETERMINATION Becky Fierro PA-C [address] [place] [address] Res[facility] [place] [address] [place] [address] Referral ID Status Reason Start Date Expiration Date V isits Requested Visits Authorized [id number] Closed Auto-Generate d Referral 12/10/2022 01/09/2024 1 1 * Outpatient Procedure (Routine) - Authorized Specialty Diagnoses / Procedures Referred By Contac t Referred To Contact [facility] Diagnoses SOB (shortness of breath) Procedures ECHO ECHO TTHRC R-T 2D W/WOM-MODE COMPL SPEC&COLR D Becky Fierro PA-C [address] [place] [address] [facility] [place] [address] [place] [address] Referral ID Status Reason Start Date Expiration Date Visits Requested Visits Authorized [id number] Authorized Auto-Generat ed Referral 12/10/2022 12/10/[address] [facility] for referral (narrative)* Diagnostic Procedure Only (Routine) - Closed Specialty Diagnoses / Procedures Referred By Contac t Referred To Contact [facility]LECULAR [facility] Diagnoses PERSON (dyspnea on exertion) Essential hypertension, benign Procedures NM CARDIAC PERF STRESS/EXERCISE MYOCARDIAL SPECT MULTIPLE STUDIES Binu Solis MD [address] [place] [address] [facility] [address] [id number] Referral ID Status Reason Start Date Expiration Date V isits Requested Visits Authorized [id number] Closed Auto-Generate d Referral 01/04/2023 02/03/[address] [facility] for visit Narrative* Diagnostic Procedure Only (Urgent) - Closed Specialty Diagnoses / Procedures Referred By Contac t Referred To Contact XR IMAGING Diagnoses Rib pain on right side Procedures XR RIBS/CHEST 3V AP RIB/OBLS/CXR RIGHT RADEX RIBS UNI W/POSTEROANT CH MINIMUM 3 VIEWS Mich Mathis APRN.ACOUSTICS TEACHER [address] [place] [address] [place] [id number] Referral ID Status Reason Start Date Expiration Date V isits Requested Visits Authorized [id number] Closed Auto-Generate d Referral 08/19/2022 09/18/2023 1 1 [facility] Summary Purpose Family History No Family History Records FoundNo Family History Records Found Advance Directives Documents on File Type Date Recorded 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 Advance Directive(s) 06/18/2020 7:30 AM Advance Directive(s) 06/18/2020 7:26 AM Advance Directive(s) 06/12/2020 9:19 AM Advance Directive(s) 02/07/2015 9:07 AM Documents on File Type Date Recorded 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 Advance Directive(s) 06/18/2020 7:26 AM Advance Directive(s) 02/07/2015 9:07 AM Documents on File Type Date Recorded 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 Advance Directive(s) 06/18/2020 7:26 AM Advance Directive(s) 02/07/2015 9:07 AM Documents on File Type Date Recorded 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 Advance Directive(s) 10/20/2022 8:34 AM Advance Directive(s) 06/18/2020 7:26 AM Documents on File Type Date Recorded 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 Advance Directive(s) 10/20/2022 8:34 AM [...] ized section and content) DATE CREATED AUTHOR 09/07/2020 [facility] DATE CREATED AUTHOR AUTHOR'S ORGANIZ ATION 01/30/2024 [facility] Source Comments (unrecognize d section and content) In the event this informatio n is protected by the Federal Confidentiality of Alcohol and Drug Abuse Patient Records regulations: The Federal rules restrict any use of the information to criminally investigate or prosecute any alcohol or drug abuse patient.[facility] the event this information is protected by the Federal Confidentiality of Alcohol and Drug Abuse Patient Records regulations: The Federal rules restrict any use of the information to criminally investigate or prosecute any alcohol or drug abuse patient.[facility] Center[facility] the event this information is protected by the Federal Confidentiality of Alcohol and Drug Abuse Patient Records regulations: The Federal rules restrict any use of the information to criminally investigate or prosecute any alcohol or drug abuse patient.[facility] Center[facility] the event this information is protected by the Federal Confidentiality of Alcohol and Drug Abuse Patient Records regulations: The Federal rules restrict any use of the information to criminally investigate or prosecute any alcohol or drug abuse patient.[facility] CenterIn the event this information is protected by the Federal Confidentiality of Alcohol and Drug Abuse Patient Records regulations: The Federal rules restrict any use of the information to criminally investigate or prosecute any alcohol or drug abuse patient.[facility] CenterIn the event this information is protected by the Federal Confidentiality of Alcohol and Drug Abuse Patient Records regulations: The Federal rules restrict any use of the information to criminally investigate or prosecute any alcohol or drug abuse patient.[facility] CenterIn the event this information is protected by the Federal Confidentiality of Alcohol and Drug Abuse Patient Records regulations: The Federal rules restrict any use of the information to criminally investigate or prosecute any alcohol or drug abuse patient.[facility] CenterIn the event this information is protected by the Federal Confidentiality of Alcohol and Drug Abuse Patient Records regulations: The Federal rules restrict any use of the information to criminally investigate or prosecute any alcohol or drug abuse patient.[facility] CenterIn the event this information is protected by the Federal Confidentiality of Alcohol and Drug Abuse Patient Records regulations: The Federal rules restrict any use of the information to criminally investigate or prosecute any alcohol or drug abuse patient.[facility] CenterIn the event this information is protected by the Federal Confidentiality of Alcohol and Drug Abuse Patient Records regulations: The Federal rules restrict any use of the information to criminally investigate or prosecute any alcohol or drug abuse patient.[facility] CenterIn the event this information is protected by the Federal Confidentiality of Alcohol and Drug Abuse Patient Records regulations: The Federal rules restrict any use of the information to criminally investigate or prosecute any alcohol or drug abuse patient.[facility] CenterIn the event this information is protected by the Federal Confidentiality of Alcohol and Drug Abuse Patient Records regulations: The Federal rules restrict any use of the information to criminally investigate or prosecute any alcohol or drug abuse patient.[facility] CenterIn the event this information is protected by the Federal Confidentiality of Alcohol and Drug Abuse Patient Records regulations: The Federal rules restrict any use of the information to criminally investigate or prosecute any alcohol or drug abuse patient.[facility] CenterIn the event this information is protected by the Federal Confidentiality of Alcohol and Drug Abuse Patient Records regulations: The Federal rules restrict any use of the information to criminally investigate or prosecute any alcohol or drug abuse patient.[facility] CenterIn the event this information is protected by the Federal Confidentiality of Alcohol and Drug Abuse Patient Records regulations: The Federal rules restrict any use of the information to criminally investigate or prosecute any alcohol or drug abuse patient.[facility] CenterIn the event this information is protected by the Federal Confidentiality of Alcohol and Drug Abuse Patient Records regulations: The Federal rules restrict any use of the information to criminally investigate or prosecute any alcohol or drug abuse patient.[facility] CenterIn the event this information is protected by the Federal Confidentiality of Alcohol and Drug Abuse Patient Records regulations: The Federal rules restrict any use of the information to criminally investigate or prosecute any alcohol or drug abuse patient.[facility] CenterIn the event this information is protected by the Federal Confidentiality of Alcohol and Drug Abuse Patient Records regulations: The Federal rules restrict any use of the information to criminally investigate or prosecute any alcohol or drug abuse patient.[facility] CenterIn the event this information is protected by the Federal Confidentiality of Alcohol and Drug Abuse Patient Records regulations: The Federal rules restrict any use of the information to criminally investigate or prosecute any alcohol or drug abuse patient.[facility] CenterIn the event this information is protected by the Federal Confidentiality of Alcohol and Drug Abuse Patient Records regulations: The Federal rules restrict any use of the information to criminally investigate or prosecute any alcohol or drug abuse patient.[facility] CenterIn the event this information is protected by the Federal Confidentiality of Alcohol and Drug Abuse Patient Records regulations: The Federal rules restrict any use of the information to criminally investigate or prosecute any alcohol or drug abuse patient.[facility] CenterIn the event this information is protected by the Federal Confidentiality of Alcohol and Drug Abuse Patient Records regulations: The Federal rules restrict any use of the information to criminally investigate or prosecute any alcohol or drug abuse patient.[facility] CenterIn the event this information is protected by the Federal Confidentiality of Alcohol and Drug Abuse Patient Records regulations: The Federal rules restrict any use of the information to criminally investigate or prosecute any alcohol or drug abuse patient.[facility] CenterIn the event this information is protected by the Federal Confidentiality of Alcohol and Drug Abuse Patient Records regulations: The Federal rules restrict any use of the information to criminally investigate or prosecute any alcohol or drug abuse patient.[facility] CenterIn the event this information is protected by the Federal Confidentiality of Alcohol and Drug Abuse Patient Records regulations: The Federal rules restrict any use of the information to criminally investigate or prosecute any alcohol or drug abuse patient.[facility] CenterIn the event this information is protected by the Federal Confidentiality of Alcohol and Drug Abuse Patient Records regulations: The Federal rules restrict any use of the information to criminally investigate or prosecute any alcohol or drug abuse patient.[facility] CenterIn the event this information is protected by the Federal Confidentiality of Alcohol and Drug Abuse Patient Records regulations: The Federal rules restrict any use of the information to criminally investigate or prosecute any alcohol or drug abuse patient.[facility] CenterIn the event this information is protected by the Federal Confidentiality of Alcohol and Drug Abuse Patient Records regulations: The Federal rules restrict any use of the information to criminally investigate or prosecute any alcohol or drug abuse patient.[facility] CenterIn the event this information is protected by the Federal Confidentiality of Alcohol and Drug Abuse Patient Records regulations: The Federal rules restrict any use of the information to criminally investigate or prosecute any alcohol or drug abuse patient.[facility] CenterIn the event this information is protected by the Federal Confidentiality of Alcohol and Drug Abuse Patient Records regulations: The Federal rules restrict any use of the information to criminally investigate or prosecute any alcohol or drug abuse patient.[facility] CenterIn the event this information is protected by the Federal Confidentiality of Alcohol and Drug Abuse Patient Records regulations: The Federal rules restrict any use of the information to criminally investigate or prosecute any alcohol or drug abuse patient.[facility] CenterIn the event this information is protected by the Federal Confidentiality of Alcohol and Drug Abuse Patient Records regulations: The Federal rules restrict any use of the information to criminally investigate or prosecute any alcohol or drug abuse patient.[facility] CenterIn the event this information is protected by the Federal Confidentiality of Alcohol and Drug Abuse Patient Records regulations: The Federal rules restrict any use of the information to criminally investigate or prosecute any alcohol or drug abuse patient.[facility] CenterIn the event this information is protected by the Federal Confidentiality of Alcohol and Drug Abuse Patient Records regulations: The Federal rules restrict any use of the information to criminally investigate or prosecute any alcohol or drug abuse patient.[facility] CenterIn the event this information is protected by the Federal Confidentiality of Alcohol and Drug Abuse Patient Records regulations: The Federal rules restrict any use of the information to criminally investigate or prosecute any alcohol or drug abuse patient.[facility] CenterIn the event this information is protected by the Federal Confidentiality of Alcohol and Drug Abuse Patient Records regulations: The Federal rules restrict any use of the information to criminally investigate or prosecute any alcohol or drug abuse patient.[facility] CenterIn the event this information is protected by the Federal Confidentiality of Alcohol and Drug Abuse Patient Records regulations: The Federal rules restrict any use of the information to criminally investigate or prosecute any alcohol or drug abuse patient.[facility] CenterIn the event this information is protected by the Federal Confidentiality of Alcohol and Drug Abuse Patient Records regulations: The Federal rules restrict any use of the information to criminally investigate or prosecute any alcohol or drug abuse patient.[facility] CenterIn the event this information is protected by the Federal Confidentiality of Alcohol and Drug Abuse Patient Records regulations: The Federal rules restrict any use of the information to criminally investigate or prosecute any alcohol or drug abuse patient.[facility] CenterIn the event this information is protected by the Federal Confidentiality of Alcohol and Drug Abuse Patient Records regulations: The Federal rules restrict any use of the information to criminally investigate or prosecute any alcohol or drug abuse patient.[facility] CenterIn the event this information is protected by the Federal Confidentiality of Alcohol and Drug Abuse Patient Records regulations: The Federal rules restrict any use of the information to criminally investigate or prosecute any alcohol or drug abuse patient.[facility] CenterIn the event this information is protected by the Federal Confidentiality of Alcohol and Drug Abuse Patient Records regulations: The Federal rules restrict any use of the information to criminally investigate or prosecute any alcohol or drug abuse patient.[facility] CenterIn the event this information is protected by the Federal Confidentiality of Alcohol and Drug Abuse Patient Records regulations: The Federal rules restrict any use of the information to criminally investigate or prosecute any alcohol or drug abuse patient.[facility] CenterIn the event this information is protected by the Federal Confidentiality of Alcohol and Drug Abuse Patient Records regulations: The Federal rules restrict any use of the information to criminally investigate or prosecute any alcohol or drug abuse patient.[facility] CenterIn the event this information is protected by the Federal Confidentiality of Alcohol and Drug Abuse Patient Records regulations: The Federal rules restrict any use of the information to criminally investigate or prosecute any alcohol or drug abuse patient.[facility] CenterIn the event this information is protected by the Federal Confidentiality of Alcohol and Drug Abuse Patient Records regulations: The Federal rules restrict any use of the information to criminally investigate or prosecute any alcohol or drug abuse patient.[facility] CenterIn the event this information is protected by the Federal Confidentiality of Alcohol and Drug Abuse Patient Records regulations: The Federal rules restrict any use of the information to criminally investigate or prosecute any alcohol or drug abuse patient.[facility] CenterIn the event this information is protected by the Federal Confidentiality of Alcohol and Drug Abuse Patient Records regulations: The Federal rules restrict any use of the information to criminally investigate or prosecute any alcohol or drug abuse patient.[facility] CenterIn the event this information is protected by the Federal Confidentiality of Alcohol and Drug Abuse Patient Records regulations: The Federal rules restrict any use of the information to criminally investigate or prosecute any alcohol or drug abuse patient.[facility] CenterIn the event this information is protected by the Federal Confidentiality of Alcohol and Drug Abuse Patient Records regulations: The Federal rules restrict any use of the information to criminally investigate or prosecute any alcohol or drug abuse patient.[facility] CenterIn the event this information is protected by the Federal Confidentiality of Alcohol and Drug Abuse Patient Records regulations: The Federal rules restrict any use of the information to criminally investigate or prosecute any alcohol or drug abuse patient.[facility] Reason for Visit (unrecogniz ed section and content) Reason Comments Follow Up Specialty Diagnoses / Procedures Referred By Contvianca t Referred To Contact Psychiatry / ADULT PSYCHIATRY Diagnoses FOLLOW UP Procedures EST PSYC ADULT Betty Barraza, VACUUM DRUM DRIER OPERATOR.ACOUSTICS TEACHER [address] [place] [address] Berkley Roque, VACUUM DRUM DRIER OPERATOR.ACOUSTICS TEACHER [address] [place] [address] Referral ID Status Reason Start Date Expiration Date V isits Requested Visits Authorized [id number] Pending Review 08/27/2021 11/25/2021 1 1 Reason Comments 6 Month Exam Referral ID Status Reason Start Date Expiration Date Visits Re quested Visits Authorized [id number] Closed 08/27/2021 11/25/2021 1 1 Reason Comments Acute Visit SOB,fatique Reason Comments Flu Like Symptoms Chest congestion, SO B x 1 week, is covid positive Reason Comments Results Reason Comments Follow Up congestion and urgen t care Reason Comments Results Labs Reason Comments New Patient Dyspnea Reason Comments Spirometry Specialty Diagnoses / Procedures Referred By [facility] t Referred To Contact [facility] [place] Diagnoses SOB (shortness of breath) Procedures NITRIC OXIDE, EXHALED NITRIC OXIDE GAS DETERMINATION Genie Bustamante MD [address] [place] [address] [place] [place] [id number] Referral ID Status Reason Start Date Expiration Date V isits Requested Visits Authorized [id number] Closed Auto-Generate d Referral 02/27/2022 03/29/2023 1 1 Specialty Diagnoses / Procedures Referred By [facility] t Referred To Contact [facility] [place] Diagnoses SOB (shortness of breath) Procedures SPIROMETRY WITH DILATOR IF OBSTRUCTED BRNCDILAT RSPSE SPMTRY PRE&POST-BRNCDILAT ADMN Genie Bustamante MD [address] [place] [address] [address] Referral ID Status Reason Start Date Expiration Date V isits Requested Visits Authorized [id number] Closed Auto-Generate d Referral 02/27/2022 03/29/2023 1 1 Specialty Diagnoses / Procedures Referred By [facility] Referred To Contact [facility] [place] Diagnoses SOB (shortness of breath) Procedures LUNG VOLUMES Genie Bustamante MD [address] [place] [address] [address] Referral ID Status Reason Start Date Expiration Date V isits Requested Visits Authorized [id number] Closed Auto-Generate d Referral 02/27/2022 03/29/2023 1 [...] 08/24/2022 Specialty Diagnoses / Procedures [facility] Diagnoses Cough variant asthma Procedures NITRIC OXIDE, EXHALED NITRIC OXIDE GAS DETERMINATION Becky Fierro PA-C [address] [place] [address] Res[facility] [place] [phone] Referral ID Status Reason Start Date Expiration Date V isits Requested Visits Authorized [id number] Closed Auto-Generate d Referral 12/10/2022 01/09/2024 1 1 Reason Comments Established Patient 6 month follow up co ugh variant asthma Reason Comments Medication Problem Not sure of increase of dosage Reason Comments Asthma Reason Comments Radiology NM Specialty Diagnoses / Procedures [facility] Contact MOLECULAR & FUNCTIONAL IMAGING Diagnoses PERSON (dyspnea on exertion) Essential hypertension, benign Procedures NM CARDIAC PERF STRESS/EXERCISE MYOCARDIAL SPECT MULTIPLE STUDIES Binu Solis MD [address] [place] [address] Molecular & Functional Imaging [address] [place] [id number] Referral ID Status Reason Start Date Expiration Date V isits Requested Visits Authorized [id number] Closed Auto-Generate d Referral 01/04/2023 02/03/2024 1 1 Specialty Diagnoses / Procedures [facility] Diagnoses SOB (shortness of breath) Cough variant asthma Procedures SPIROMETRY BASELINE ONLY SPMTRY W/VC EXPIRATORY LINDSAY W/WO MXML VOL VNTJ Becky Fierro PA-Avelino [address] [place] [address] Res[facility] [place] [address] [place] [address] Referral ID Status Reason Start Date Expiration Date V isits Requested Visits Authorized [id number] Closed Auto-Generate d Referral 04/19/2023 05/18/2024 1 1 Specialty Diagnoses / Procedures [facility] Diagnoses SOB (shortness of breath) Cough variant asthma Procedures MIPS/MEPS UNLISTED PULMONARY SERVICE/PROCEDURE Becky Fierro PA-C [address] [place] [address] Res[facility] [place] [address] [place] [address] Referral ID Status Reason Start Date Expiration Date V isits Requested Visits Authorized [id number] Closed Auto-Generate d Referral 04/19/2023 05/18/2024 1 1 Reason Comments Medication Problem Reason Comments Established Patient asthma Reason Comments Head Congestion drainage, cough, sor e throat and chest congestion x 2 days Care Teams (unrecognized sec tion and content) Assistant Refinery Operator Relationship Specialty Start Date End Date Binu Solis MD [address] [place], [place] [id number] PCP - General Family Practice 01/01/21 Assistant Refinery Operator Relationship Specialty Start Date End Date Binu Solis MD [address] [place] [address] PCP - General Family Practice 01/01/21 Assistant Refinery Operator Relationship Specialty Start Date End Date Biun Solis MD [address] [place] [address] PCP - General Family Practice 01/01/21 Assistant Refinery Operator Relationship Specialty Start Date End Date Binu Solis MD [address] [place] [address] PCP - General Family Practice 01/01/21 Assistant Refinery Operator Relationship Specialty Start Date End Date Binu Solis MD [address] [place] [address] PCP - General Family Practice 01/01/21 Assistant Refinery Operator Relationship Specialty Start Date End Date Binu Solis MD [address] [place] [address] PCP - General Family Medicine 01/01/21 Assistant Refinery Operator Relationship Specialty Start Date End Date Binu Solis MD [address] [place] [address] PCP - General Family Medicine 01/01/21 Assistant Refinery Operator Relationship Specialty Start Date End Date Binu Solis MD [address] [place] [address] PCP - General Family Medicine 01/01/21 Assistant Refinery Operator Relationship Specialty Start Date End Date Binu Solis MD [address] [place] [address] PCP - General Family Medicine 01/01/21 Assistant Refinery Operator Relationship Specialty Start Date End Date Binu Solis MD [address] [place] [address] PCP - General Family Medicine 01/01/21 Assistant Refinery Operator Relationship Specialty Start Date End Date Binu Solis MD [address] [place] [address] PCP - General Family Medicine 01/01/21 Assistant Refinery Operator Relationship Specialty Start Date End Date Binu Solis MD [address] [place] [address] PCP - General Family Medicine 01/01/21 Assistant Refinery Operator Relationship Specialty Start Date End Date Binu Solis MD [address] [place] [address] PCP - General Family Medicine 01/01/21 Assistant Refinery Operator Relationship Specialty Start Date End Date Binu Solis MD [address] [place] [address] PCP - General Family Medicine 01/01/21 Assistant Refinery Operator Relationship Specialty Start Date End Date Binu Solis MD [address] [place] [place] [address] PCP - General Family Medicine 01/01/21 Assistant Refinery Operator Relationship Specialty Start Date End Date Binu Solis MD [address] [place] [place] [address] PCP - General Family Medicine 01/01/21 Assistant Refinery Operator Relationship Specialty Start Date End Date Binu Solis MD [address] [place] [address] PCP - General Family Medicine 01/01/21 Assistant Refinery Operator Relationship Specialty Start Date End Date Binu Solis MD [address] [place] [address] PCP - General Family Medicine 01/01/21 Assistant Refinery Operator Relationship Specialty Start Date End Date Binu Solis MD [address] [place] [place] [address] PCP - General Family Medicine 01/01/21 Assistant Refinery Operator Relationship Specialty Start Date End Date Binu Solis MD [address] [place] [address] PCP - General Family Medicine 01/01/21 Assistant Refinery Operator Relationship Specialty Start Date End Date Binu Solis MD [address] [place] [address] PCP - General Family Medicine 01/01/21 Assistant Refinery Operator Relationship Specialty Start Date End Date Binu Solis MD [address] [place] [address] PCP - General Family Medicine 01/01/21 Assistant Refinery Operator Relationship Specialty Start Date End Date Binu Solis MD [address] [place] [address] PCP - General Family Medicine 01/01/21 Assistant Refinery Operator Relationship Specialty Start Date End Date Binu Solis MD [address] [place] [address] PCP - General Family Medicine 01/01/21 Assistant Refinery Operator Relationship Specialty Start Date End Date Binu Solis MD [address] [place] [address] PCP - General Family Medicine 01/01/21 Assistant Refinery Operator Relationship Specialty Start Date End Date Binu Solis MD [address] [place] [address] PCP - General Family Medicine 01/01/21 Assistant Refinery Operator Relationship Specialty Start Date End Date Binu Solis MD [address] [place] [address] PCP - General Family Medicine 01/01/21 Assistant Refinery Operator Relationship Specialty Start Date End Date Binu Solis MD [address] [place] [address] PCP - General Family Medicine 01/01/21 Assistant Refinery Operator Relationship Specialty Start Date End Date Binu Solis MD [address] [place] [address] PCP - General Family Medicine 01/01/21 Assistant Refinery Operator Relationship Specialty Start Date End Date Binu Solis MD [address] [place] [address] PCP - General Family Medicine 01/01/21 Assistant Refinery Operator Relationship Specialty Start Date End Date Binu Solis MD [address] [place] [address] PCP - General Family Medicine 01/01/21 Assistant Refinery Operator Relationship Specialty Start Date End Date Tre García Chi [address] [place] [address] PCP - General Gerontology 11/09/23 Assistant Refinery Operator Relationship Specialty Start Date End Date Tre García Chi [address] [place], [place] [id number] PCP - General Gerontology 11/09/23 Assistant Refinery Operator Relationship Specialty Start Date End Date Tre García Chi [address] [place] [address] PCP - General Gerontology 11/09/23 Assistant Refinery Operator Relationship Specialty Start Date End Date Binu Solis MD [address] [place] [address] PCP - General Family Medicine 01/01/21 11/08/23 Assistant Refinery Operator Relationship Specialty Start Date End Date Tre García Chi [address] [place] [address] PCP - General Gerontology 11/09/23 Assistant Refinery Operator Relationship Specialty Start Date End Date Binu Solis MD [address] [place] [address] PCP - General Family Medicine 01/01/21 11/08/23 Assistant Refinery Operator Relationship Specialty Start Date End Date Binu Solis MD [address] [place] [address] PCP - General Family Medicine 01/01/21 11/08/23 Assistant Refinery Operator Relationship Specialty Start Date End Date Tre García Chi [address] [place] [address] PCP - General Gerontology 11/09/23 FOR RECORDS PERTAINING TO PATIENTS WHO ARE [...] BE BASED ON THE PRIMARY CLINICAL RECORDS. [facility] [employer] [facility]. provides no warranty or guarantee of the accuracy or completeness of information in this document.
[2024-03-21 12:52] LABS: Absolute Lymphocyte Count 2.11 X10^3/uL (0.83-4.51); Absolute Neutrophil Count 3.4 X10^3/uL (2.0-7.7); Basophil# 0.03 X10^3/uL; Basophil% 0.5 % (0-1); Eosinophil# 0.03 X10^3/uL; Eosinophils% 0.5 % (0-5); Hematocrit 44.6 % (40-54); Hemoglobin 14.6 g/dL (13.0-16.5); Lymphocyte # 2.11 X10^3/ul (0.83-4.51); Lymphocyte % 35.7 % (19-41); Mean Corp Hgb Conc 32.7 g/dL (32-36); Mean Corpuscular Volume 91.6 fL (80-94); Mean Platelet Vol. 9.1 fl (6.2-12.0); Monocyte# 0.34 X10^3/uL; Monocyte% 5.8 % (0-10); NRBC Flagged by Analyzer 0 % (0-5); Neutrophil # 3.38 X10^3/uL (2.7-7.7); Neutrophil % 57.2 % (47-70); Platelet Count 148 K/mm3 (150-450); RBC Distribution Width CV 13.4 % (11.6-14.6); Red Blood Count 4.87 M/mm3 (4.6-6.2); White Blood Count 5.9 K/mm3 (4.4-11.0)
[2024-03-21 13:24] LABS: Vitamin D,25 Hydroxy 14.9 ng/mL
[2024-03-21 13:43] LABS: ALB/GLOB Ratio 1.2 RATIO (0.9-2.4); AST(SGOT) 28 U/L (15-37); Alanine Aminotransfer ALT/SGPT 28 U/L (16-61); Albumin, Serum 3.7 g/dL (3.2-5.0); Alkaline Phosphatase 103 U/L (45-117); Anion Gap 5 (5-15); BUN 15 mg/dL (7-18); BUN/Creat Ratio 14.3 RATIO (10-20); Calcium,Total 9.1 mg/dL (8.5-10.1); Chloride 108 mmol/L (98-107); Creatinine, Serum 1.05 mg/dL (0.70-1.30); EST Glomerular Filtration Rate 72 mL/min (>60); Est Glom Filt Rate - Afr Amer 87 mL/min (>60); Glucose 100 mg/dL (74-106); Potassium 4.4 mmol/L (3.5-5.1); Protein, Total 6.7 g/dL (6.4-8.2); Sodium Level 138 mmol/L (136-145); Thyroid Stim Hormone (TSH) 0.689 uIU/mL (0.358-3.740)
== END | disposition home or self-care (01) ==
LOC: LAB 11:49
PROVIDERS: PCP Family Medicine Geriatric Medicine; Referring Provider Family Medicine Geriatric Medicine; Visit Provider Family Medicine Geriatric Medicine
DX: I10 Essential (primary) hypertension (principal); E55.9 Vitamin D deficiency, unspecified
CPT/HCPCS: 36415; 80053; 82306; 84443; 85025

== ENCOUNTER → 2024-04-12 | Outpatient (CLI) | payer MEDICARE, SELFPAY | END | disposition home or self-care (01) | LOC: PSN 07:34 | PROVIDERS: PCP Family Medicine Geriatric Medicine; Referring Provider Nurse Practitioner Gerontology; Visit Provider Nurse Practitioner Gerontology | DX: I48.0 Paroxysmal atrial fibrillation (principal); I48.92 Unspecified atrial flutter; R00.0 Tachycardia, unspecified | CPT/HCPCS: 93225; 93226 ==

== ENCOUNTER → 2024-05-01 | Outpatient (CLI) | payer MEDICARE, SELFPAY | END | disposition home or self-care (01) | LOC: POLAB3 13:47 | PROVIDERS: PCP Family Medicine Geriatric Medicine; Visit Provider Family Medicine Geriatric Medicine | DX: L03.114 Cellulitis of left upper limb (principal); S41.102A Unspecified open wound of left upper arm, initial encounter; Z22.39 Carrier of other specified bacterial diseases | CPT/HCPCS: 87070; 87075; 87077; 87186; 87205; 87640 ==

== ENCOUNTER 2024-05-17 09:00 | Outpatient (RCR) | payer MEDICARE, SELFPAY ==
[2024-05-10 09:21] VITALS: BP 135/68; PULSE 92; RESP 18; TEMP 36; BMI 28.7
--- NOTE | 2024-05-10 12:26 | HP.PCM_ITS ---
History of Present Illness Date of Service: 05/10/24 Chief Complaint: Left forearm skin tear History of Wound: 78-year-old male fell and bumped his right forearm 2 weeks ago. He developed a skin tear. He went to see his PCP Dr. García who gave him a shot of antibiotics and 2 rounds of oral antibiotics he is still on his Bactrim. He does develop staph infections easily. He has been covering this wound with Adaptic and gauze. He felt that every time he took the Adaptic off he was tearing and bleeding more. He denies any fever, chills, nausea, vomiting. [facility] Medical History Anxiety Lower urinary tract symptoms (LUTS) Constipation Chronic low back pain BPH (benign prostatic hyperplasia) Hyperlipidemia Depression SOB (shortness of breath) Asthma COVID-19 Hypertension GERD (gastroesophageal reflux disease) Home Medications ?Medication ?Instructions ?Recorded ?Last Taken ?Type polyethylene glycol 3350 17 gram 17 g PO DAILY PRN Constipation 04/19/13 04/19/13 07:00 History oral powder packet lisinopril 5 mg tablet 5 mg PO DAILY 08/28/20 Unknown History tamsulosin 0.4 mg capsule 0.4 mg PO QHS 06/16/21 Unknown History albuterol sulfate 90 mcg/actuation 2 inh inhalation Q6H PRN shortness 05/06/23 Unknown History breath activated powder inhaler of breath mometasone-formoterol HFA 200 2 puff inhalation BID 05/06/23 Unknown History mcg-5 mcg/actuation aerosol inhaler (Dulera) montelukast 10 mg tablet 10 mg PO DAILY 05/06/23 Unknown History nortriptyline 50 mg capsule 50 mg PO BID 06/02/23 Unknown History omeprazole 10 mg capsule,delayed 40 mg PO DAILY 06/02/23 Unknown History release Allergy/AdvReac Type Severity Reaction Status Date / Time No Known Allergies Allergy Verified 01/03/24 14:15 Family History Mother Depression CVA (cerebral vascular accident) Anxiety Hypertension Father Pancreatic cancer Surgical History Hx of cataract extraction Social History Smoking Status: Never smoker alcohol intake: never substance use type: does not use ROS Constitutional Constitutional: Reports systems reviewed and no addt'l complaints, except as documented Eyes Eyes: Reports systems reviewed and no addt'l complaints, except as documented ENT HEENT: Reports systems reviewed and no addt'l complaints, except as documented Cardiovascular Cardiovascular: Reports systems reviewed and no addt'l complaints, except as documented Respiratory/Chest Respiratory/Chest: Reports systems reviewed and no addt'l complaints, except as documented Gastrointestinal Gastrointestinal: Reports systems reviewed and no addt'l complaints, except as documented Genitourinary Genitourinary: Reports systems reviewed and no addt'l complaints, except as documented Musculoskeletal Musculoskeletal: Reports systems reviewed and no addt'l complaints, except as documented Integumentary Integumentary: Reports wounds and other Details: Skin tear left forearm with some depth. Neurologic Neurologic: Reports systems reviewed and no addt'l complaints, except as documented Psychiatric Psychiatric: Reports systems reviewed and no addt'l complaints, except as documented Endocrine Endocrinology: Reports systems reviewed and no addt'l complaints, except as documented Hematologic/Lymphatic Hematologic/Lymphatic: Reports systems reviewed and no addt'l complaints, except as documented Allergic/Immunologic Allergic/Immunologic: Reports systems reviewed and no addt'l complaints, except as documented Vital Signs Vital Signs Vital Signs: 05/10/24 09:21 Temperature 96.8 F L Temperature Source Temporal Pulse Rate 92 Respiratory Rate 18 Blood Pressure 135/68 H Blood Pressure Mean 90 Blood Pressure Source Monitor Blood Pressure Position Semi-Fowlers Blood Pressure Location Left Arm Weight Weight: 189 lb Body Mass Index (BMI) 28.7 Physical Exam Const oriented x3 General Appearance: cooperative Exam Limitations: no limitations HEENT normocephalic Eyes General Eye: normal appearance of both eyes Neck full ROM General: normal visual inspection Resp normal respiratory effort Effort and Inspection: able to speak in complete sentences Cardio regular rate and regular rhythm GI Palpation: soft and no hepatosplenomegaly Extremity General Extremity: normal exam except as noted Skin Wounds: wounds noted Wound Narrative: Open wound left forearm skin pushed back and torn partially avulsed. No sign of infection noted bleeds easily with debridement. Neuro oriented x3 Psych Appearance: grossly normal Speech: normal speech Thought Content: normal thought content Judgement: judgement good Debridement Note Debridement Note Wound debrided: Left forearm open wound nonpressure Laterality: Left Type of Debridement: Excisional debridement Anesthesia Used: 5% Lidocaine Gel Depth: Down to and including healthy tissue and in the subcutaneous layer Percentage of wound debrided: 100 Instrument Used: 3mm curette Tissue Removed: Fibrin and some devitalized tissue Severity: Fat Layer Exposed Amount of bleeding with debridement: Mild Bleeding Controlled with: Compression and gauze Patient tolerated procedure: Patient tolerated procedure well Post-Debridement Measurements and Additional Note: Post-Debridement Measurements/Treatment - Nurse 1 - General Ulcer Assessment Start: 05/10/24 09:20 Freq: Status: Active Protocol: GILLIAN Activity Type Activity Date Activity User E-sign Co-sign Detail Recorded Client Recorded Date Recorded By Document 05/10/24 09:21 RAYA [id number] 05/10/24 09:30 RAYA 05/10/24 09:21 - Today's Visit Information Type of service Initial Visit Arrival Mode Ambulatory Transfer Assistance None Patient Identification Verified (Name & Yes ) Patient Requires Transmission-Based No Precautions Height and Weight Height 5 ft 8 in Weight 189 lb Weight in Pounds 189.0 lbs Body Mass Index (BMI) 28.7 BMI Classification Overweight BSA - Baudilio 2.00 Vital Signs Temperature (97.8 F-99.1 F) 96.8 F L Temperature Source Temporal Pulse Rate (60-100) 92 Pulse Location Monitor Respiratory Rate (12-18) 18 Respiratory rate source Observation Blood Pressure (90/60-120/80) 135/68 H Blood Pressure Mean 90 Source Monitor Position Semi-Fowlers Blood Pressure Location Left Arm History Since Last Visit- (Skip if this is Patient's initial visit) Have you changed medications since your No last visit? Any new allergies or adverse reactions No Had a fall/change in ADL's that may No increase risk of falls Signs or symptoms of abuse and/or No neglect since last visit Have you been in the hospital since your No last visit? Has dressing in place as prescribed Yes Has compression in place as prescribed No Has offloadiing in place as prescribed No Experienced any changes in pain level or No management Pain Scale: 0-10 Numeric Is Patient Pain Free? Yes Communication Assessment Preferred language Icelandic Unemployment Claims Adjudicator Required No Able to Read Yes Able to Write Yes Caregiver Communication Skills No Impairment Impairment Right Hearing Abillity Normal Left Hearing Abillity Normal Visual Assistive Devices Glasses Teaching Assessment Preferences Verbal,Written Barriers to Learning None Readiness To Learn Excellent Willingness to Engage in Self Management High Activies Readiness to Engage in Self Management High Activities Anxiety Level Calm Cooperation Cooperative Perception Coherent Interest in Health Problem Asks Questions Education Importance Acknowledges Need Does Patient Smoke tobacco or other No substances Smoking Status Never smoker Is Patient Diabetic No Functional Assessment Recent Decline in Ability to Perform Denies Any Declines Culture/Gnosticist/Mc Kay Stitcher Cultural/Gnosticist Needs that may affect No Treatment Plan Would you allow our hospital rough rice tender to No meet you for the purpose of spiritual/ emotional support? [place] Stitcher to contact place of jehovah's witness No Teaching: Wound Center Skin Care -Person Taught Patient -Teaching Method Discussion -Response to teaching Verbalize Understanding *Welcome to the Wound Center -Person Taught Patient -Teaching Method Discussion, Demonstration -Response to teaching Verbalize Understanding WC - Nurse 1 - General Ulcer Measurement Start: 05/10/24 09:20 Freq: Status: Active Protocol: Activity Type Activity Date Activity User E-sign Co-sign Detail Recorded Client Recorded Date Recorded By Document 05/10/24 09:21 RB [id number] 05/10/24 09:30 RB 05/10/24 09:21 Wound Center Nurse 1 3. L forearm -Combined with other wound No -Current Size (cm) - Length 0.3 -Current Size (cm) - Width 0.6 -Current Size (cm) - Depth 0.1 -Total Square Cm 0.18 -Photo Taken Yes -Tunneling No -Undermining/Tunneling No -Circular Undermining No -Exudate Amt Medium -Exudate Type Serosanguineous -Wound Margin Distinct, Outline Attached -Granulation Amt Medium (34-66%) -Granulation Quality [place] -Slough/Fibrin Yes -Necrosis Amt Medium (34-66%) -Necrotic Tissue Type Adherent Slough -Structure Exposed N/A -Texture (Edie-wound Skin Appearance) Assessed -Moisture (Edie-wound Skin Appearance) Assessed -Color (Edie-wound Skin Appearance) Assessed -Temperature (Edie-wound Skin No Abnormality Appearance) (Pt Warm) -Tenderness on Palpation (Edie-wound No Skin Appearance) -Ulcer Cleansing Wound Cleanser -Foul Odor after Cleansing No -Anesthetic Used 5% Lidocaine Gel CRUZ - Nurse 2 - General Ulcer CM Notes Start: 05/10/24 09:20 Freq: Status: Active Protocol: Activity Type Activity Date Activity User E-sign Co-sign Detail Recorded Client Recorded Date Recorded By Document 05/10/24 09:37 [facility] [id number] 05/10/24 09:42 [facility] 05/10/24 09:37 Wound Center Nurse 2 -Time 09:37 -Correct Patient Yes -Correct Side, Site, Position Yes -Correct Procedure Yes -Procedure Performed Yes -Type of Procedure Debridement -Clinical Debridement Subcutaneous -Tissue Removed Subcutaneous -Post Debridement (cm) - Length 1.5 -Post Debridement (cm) - Width 0.7 -Post Debridement (cm) - Depth 0.2 -Total Square (Post) (cm) 1.05 -Area of Debridement (cm) - Length 1.5 -Area of Debridement (cm) - Width 0.7 -Total Square (Area) (cm) 1.05 -Tunneling No -Undermining/Tunneling No -Circular Undermining No -Wound/Ulcer Outcome Not Healed -Ulcer Cleansing Rinsed/ Irrigated with Saline -Foul Odor after Cleansing No -Bioengineered Tissue No -Bleeding Controlled with Pressure -Treatment Response Procedure Tolerated Well -Debridement - Subq, 1st 20sq cm Yes Pain Scale: 0-10 Numeric Is Patient Pain Free? Yes Assessment/Plan Assessment/Plan (1) Skin tear of forearm without complication: CODE(S): S51.819A - Laceration without foreign body of unspecified forearm, initial encounter QUALIFIERS: Encounter type: initial encounter Laterality: right Qualified Code(s): S51.811A - Laceration without foreign body of right forearm, initial encounter PLAN: Wash left arm with antibacterial soap and water and pat dry apply Xeroform to wound base with Adaptic over top and [place] SAP foam dressing every day Follow-up in 1 week May finish antibiotic therapy for now. (2) Wound, open, arm, forearm: CODE(S): S51.809A - Unspecified open wound of unspecified forearm, initial encounter QUALIFIERS: Encounter type: initial encounter Laterality: right Qualified Code(s): S51.801A - Unspecified open wound of right forearm, initial encounter (3) Nonhealing nonsurgical wound: CODE(S): T14.8XXA - Other injury of unspecified body region, initial encounter
--- NOTE | 2024-05-11 08:52 | WC ---
PHOTO 05/10/24 LEFT FOREARM
[2024-05-17 09:09] VITALS: BP 131/71; PULSE 84; RESP 18; TEMP 36.1; BMI 28.7
--- NOTE | 2024-05-17 10:47 | PCM.WC.PN ---
History of Present Illness Date of Service: 05/17/24 Chief Complaint: Left forearm skin tear History of Wound: 78-year-old male fell and bumped his right forearm 2 weeks ago. He developed a skin tear. He went to see his PCP Dr. García who gave him a shot of antibiotics and 2 rounds of oral antibiotics he is still on his Bactrim. He does develop staph infections easily. He has been covering this wound with Adaptic and gauze. He felt that every time he took the Adaptic off he was tearing and bleeding more. He denies any fever, chills, nausea, vomiting. Progress of Wound: Today his left arm is healed patient will be discharged from the wound center and follow-up as needed Subjective Subjective Patient was very happy with outcomes Objective Data Objective Data Left arm is healed there is no sign of any open areas patient can put a dry dressing on to protect the area so he does not reopen Vital Signs: Vital Signs Temp Pulse Resp BP 96.9 F L 84 18 131/71 H 05/17/24 09:09 05/17/24 09:09 05/17/24 09:09 05/17/24 09:09 Weight: 189 lb Body Mass Index (BMI) 28.7 Physical Exam Const oriented x3 General Appearance: cooperative Exam Limitations: no limitations HEENT normocephalic Eyes General Eye: normal appearance of both eyes Neck full ROM General: normal visual inspection Resp normal respiratory effort Effort and Inspection: able to speak in complete sentences Cardio regular rate and regular rhythm GI Palpation: soft and no hepatosplenomegaly Extremity General Extremity: normal exam except as noted Skin Wounds: wounds noted Wound Narrative: Open wound left forearm skin pushed back and torn partially avulsed. No sign of infection noted bleeds easily with debridement. Neuro oriented x3 Psych Appearance: grossly normal Speech: normal speech Thought Content: normal thought content Judgement: judgement good Debridement Note Debridement Note No debridement was completed: No debridement was completed today Post-Debridement Measurements and Additional Note: Post-Debridement Measurements/Treatment CRUZ - Nurse 1 - General Ulcer Assessment Start: 05/10/24 09:20 Freq: Status: Active Protocol: CRUZ.ELIAS Activity Type Activity Date Activity User E-sign Co-sign Detail Recorded Client Recorded Date Recorded By Document 05/10/24 09:21 RB [id number] 12/11/24 09:30 RB Document 05/17/24 09:09 RB [id number] 05/17/24 09:12 RB 05/10/24 05/17/24 09:21 09:09 WC - Today's Visit Information Type of service Initial Visit Follow-up Visit (Physician/WHEEL CUTTER ) Arrival Mode Ambulatory Ambulatory Transfer Assistance None None Patient Identification Verified (Name & Yes Yes ) Patient Requires Transmission-Based No No Precautions Height and Weight Height 5 ft 8 in Weight 189 lb Weight in Pounds 189.0 lbs Body Mass Index (BMI) 28.7 28.7 BMI Classification Overweight Overweight BSA - Baudilio 2.00 Vital Signs Temperature (97.8 F-99.1 F) 96.8 F L 96.9 F L Temperature Source Temporal Temporal Pulse Rate (60-100) 92 84 Pulse Location Monitor Monitor Respiratory Rate (12-18) 18 18 Respiratory rate source Observation Observation Blood Pressure (90/60-120/80) 135/68 H 131/71 H Blood Pressure Mean (mm Hg) 90 91 Source Monitor Monitor Position Semi-Fowlers Semi-Fowlers Blood Pressure Location Left Arm Left Arm History Since Last Visit- (Skip if this is Patient's initial visit) Have you changed medications since your No No last visit? Any new allergies or adverse reactions No No Had a fall/change in ADL's that may No No increase risk of falls Signs or symptoms of abuse and/or No No neglect since last visit Have you been in the hospital since your No No last visit? Has dressing in place as prescribed Yes Yes Has compression in place as prescribed No No Has offloadiing in place as prescribed No No Experienced any changes in pain level or No No management Pain Scale: 0-10 Numeric Is Patient Pain Free? Yes Yes Communication Assessment Preferred language Gambian Job Placement Specialist Required No Able to Read Yes Able to Write Yes Caregiver Communication Skills No Impairment Impairment Right Hearing Abillity Normal Left Hearing Abillity Normal Visual Assistive Devices Glasses Teaching Assessment Preferences Verbal,Written Barriers to Learning None Readiness To Learn Excellent Willingness to Engage in Self Management High Activies Readiness to Engage in Self Management High Activities Anxiety Level Calm Cooperation Cooperative Perception Coherent Interest in Health Problem Asks Questions Education Importance Acknowledges Need Does Patient Smoke tobacco or other No substances Smoking Status Never smoker Is Patient Diabetic No Functional Assessment Recent Decline in Ability to Perform Denies Any Declines 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 Wig Stylist to contact place of mormonism No Teaching: Wound Center Skin Care -Person Taught Patient -Teaching Method Discussion -Response to teaching Verbalize Understanding *Welcome to the Wound Center -Person Taught Patient -Teaching Method Discussion, Demonstration -Response to teaching Verbalize Understanding WC - Nurse 1 - General Ulcer Measurement Start: 05/10/24 09:20 Freq: Status: Active Protocol: Activity Type Activity Date Activity User E-sign Co-sign Detail Recorded Client Recorded Date Recorded By Document 05/10/24 09:21 RB [id number] 05/10/24 09:30 RB Document 05/17/24 09:09 RB [id number] 05/17/24 09:12 RB 05/10/24 05/17/24 09:21 09:09 Wound Center Nurse 1 3. L forearm -Combined with other wound No No -Current Size (cm) - Length 0.3 0.1 -Current Size (cm) - Width 0.6 0.1 -Current Size (cm) - Depth 0.1 0.1 -Total Square Cm 0.18 0.01 -Photo Taken Yes Yes -Tunneling No No -Undermining/Tunneling No No -Circular Undermining No No -Exudate Amt Medium Medium -Exudate Type Serosanguineous Serosanguineous -Wound Margin Distinct, Distinct, Outline Outline Attached Attached -Granulation Amt Medium (34-66%) Medium (34-66%) -Granulation Quality Corcoran Corcoran -Slough/Fibrin Yes Yes -Necrosis Amt Medium (34-66%) Medium (34-66%) -Necrotic Tissue Type Adherent Slough Adherent Slough -Structure Exposed N/A N/A -Texture (Edie-wound Skin Appearance) Assessed Assessed -Moisture (Edie-wound Skin Appearance) Assessed Assessed -Color (Edie-wound Skin Appearance) Assessed Assessed -Temperature (Edie-wound Skin No Abnormality No Abnormality Appearance) (Pt Warm) (Pt Warm) -Tenderness on Palpation (Edie-wound No No Skin Appearance) -Ulcer Cleansing Wound Cleanser Wound Cleanser -Foul Odor after Cleansing No No -Anesthetic Used 5% Lidocaine 5% Lidocaine Gel Gel WC - Nurse 2 - General Ulcer CM Notes Start: 05/10/24 09:20 Freq: Status: Active Protocol: Activity Type Activity Date Activity User E-sign Co-sign Detail Recorded Client Recorded Date Recorded By Document 05/10/24 09:37 [facility] [id number] 05/10/24 09:42 [facility] Document 05/17/24 09:45 [facility] [id number] 05/17/24 09:47 [facility] 05/10/24 05/17/24 09:37 09:45 Wound Center Nurse 2 3. L forearm -Time 09:37 09:46 -Correct Patient Yes -Correct Side, Site, Position Yes -Correct Procedure Yes -Procedure Performed Yes -Type of Procedure Debridement -Clinical Debridement Subcutaneous -Tissue Removed Subcutaneous -Post Debridement (cm) - Length 1.5 0 -Post Debridement (cm) - Width 0.7 0 -Post Debridement (cm) - Depth 0.2 0 -Total Square (Post) (cm) 1.05 0 -Area of Debridement (cm) - Length 1.5 0 -Area of Debridement (cm) - Width 0.7 0 -Total Square (Area) (cm) 1.05 0 -Tunneling No -Undermining/Tunneling No -Circular Undermining No -Wound/Ulcer Outcome Not Healed Healed- Epithelialized -Ulcer Cleansing Rinsed/ Irrigated with Saline -Foul Odor after Cleansing No -Bioengineered Tissue No -Bleeding Controlled with Pressure NA -Treatment Response Procedure Tolerated Well -Debridement - Subq, 1st 20sq cm Yes Pain Scale: 0-10 Numeric Is Patient Pain Free? Yes Yes - Nurse 3 - General Ulcer D/C NN Start: 05/10/24 09:20 Freq: Status: Active Protocol: Activity Type Activity Date Activity User E-sign Co-sign Detail Recorded Client Recorded Date Recorded By Document 05/17/24 09:47 [facility] [id number] 05/17/24 09:47 [facility] 05/17/24 09:47 Wound Care Center Nurse 3 3. L forearm -Primary Dressing Applied Mepilex Border -Primary Dressing Covered/Secured with Dry Gauze -Mepilex Border 1 -Wound Comment(s) pad/protect Treatment Response Procedure Tolerated Well Pain Scale: 0-10 Numeric Is Patient Pain Free? Yes - Visit Discharge Discharge Condition Stable Ambulatory Status Ambulatory Transportation Private Auto Assessment/Plan Assessment/Plan (1) Skin tear of forearm without complication: CODE(S): S51.819A - Laceration without foreign body of unspecified forearm, initial encounter QUALIFIERS: Encounter type: initial encounter Laterality: right Qualified Code(s): S51.811A - Laceration without foreign body of right forearm, initial encounter PLAN: Dry dressing to the area follow-up as needed (2) Wound, open, arm, forearm: CODE(S): S51.809A - Unspecified open wound of unspecified forearm, initial encounter QUALIFIERS: Encounter type: initial encounter Laterality: right Qualified Code(s): S51.801A - Unspecified open wound of right forearm, initial encounter (3) Nonhealing nonsurgical wound: CODE(S): T14.8XXA - Other injury of unspecified body region, initial encounter
--- NOTE | 2024-05-18 09:21 | WC ---
PHOTO 05/17/24
== END 2024-05-22 15:20 | disposition home or self-care (01) ==
LOC: WC 09:00
PROVIDERS: PCP Family Medicine Geriatric Medicine; Referring Provider Family Medicine Geriatric Medicine; Visit Provider Nurse Practitioner
DX: S51.811A Laceration without foreign body of right forearm, initial encounter (principal); W01.10XA Fall on same level from slipping, tripping and stumbling with subsequent striking against unspecified object, initial encounter; I10 Essential (primary) hypertension; E78.5 Hyperlipidemia, unspecified; J45.909 Unspecified asthma, uncomplicated; N40.0 Benign prostatic hyperplasia without lower urinary tract symptoms; K21.9 Gastro-esophageal reflux disease without esophagitis; Z79.899 Other long term (current) drug therapy
CPT/HCPCS: 11042; 99212; 99213; G0463

== ENCOUNTER → 2024-05-29 | Outpatient (CLI) | payer MEDICARE, SELFPAY ==
--- NOTE | 2024-05-29 13:54 | PR.HP_ITS ---
History of Present Illness General Arrival date:: 05/29/24 Arrival time:: 13:55 Date of Referral:: 04/13/24 Date of Evaluation: 05/29/24 Referring Physician: Dr. García Primary Diagnosis: chronic bronchitis, unspecified asthma History of Present Pulmonary Event [facility] Breathless Scale: When is the patient short of breath? Y/N Grade: Description of Breathlessness: 0 I only get breathless with strenuous exercise. 1 I get short of breath when hurrying on level ground or walking up a slight hill. 2 On level ground, I walk slower than people of the same age because of breathless, or have to stop for breath when walking at my own pace. 3 I stop for breath after walking 100 yards or after a few minutes on level ground. 4 I am too breathless to leave the house or I am breathless when dressing. Respiratory Problems: Yes Retain Secretions, Fatigue, Able to Speak in Full Sentences, Hoarseness, Anxiety, Dyspnea at Rest, Dyspnea with Activity and Cough with Secretions; No Limited Range of Motion, Chest Pain, Wheezing, Dizziness, Ankle Swelling, Panic or Dyspnea Lying Down Flat Medications Home Medications polyethylene glycol 3350 17 gram oral powder packet 17 g PO DAILY PRN Constipation 04/19/13 lisinopril 5 mg tablet 5 mg PO DAILY 08/28/20 tamsulosin 0.4 mg capsule 0.4 mg PO QHS 06/16/21 albuterol sulfate 90 mcg/actuation breath activated powder inhaler 2 inh inhalation Q6H PRN shortness of breath 05/06/23 mometasone-formoterol HFA 200 mcg-5 mcg/actuation aerosol inhaler (Dulera) 2 puff inhalation BID 05/06/23 montelukast 10 mg tablet 10 mg PO DAILY 05/06/23 nortriptyline 50 mg capsule 50 mg PO BID 06/02/23 omeprazole 10 mg capsule,delayed release 40 mg PO DAILY 06/02/23 Allergies Allergies No Known Allergies Allergy (Verified 01/03/24 14:15) Secretions Thick:: Yes Amount/Day:: 1 TSP AM: Yes Sleep Disorder Evaluation Hx of Sleep Apnea: No Do you snore loudly (louder than talking or can be heard through closed doors)?: No Do you often feel tired/ fatigued/ sleepy during daytime?: No Has anyone observed you stop breathing during sleep?: No History of Hypertension (for STOP score): Yes STOP Results: Negative Medical Utilization Medical Devices Do you use a peak flow meter at home?: No Do you use a spacer device with your inhalers?: No Medical Utilization Number of hospital visits in the last year?: 0 Number of emergency room visits in the last year?: 0 Do you see your physician on a regular schedule?: No Advanced Directives Advanced Directives Power of Drafter Geophysical: Yes Living Will: Yes Advance Directives Information Provided: Yes Advance Directives on File: No DNR Order?:: No Past Medical History Covid-19 Screening Physicial Symptoms Other Clinical Concerns Exposure Risk Pertinent Comorbidities Has a chronic lung disease or moderate to severe asthma:: Yes Medical History Medical History Anxiety Lower urinary tract symptoms (LUTS) Constipation Chronic low back pain BPH (benign prostatic hyperplasia) Hyperlipidemia Depression SOB (shortness of breath) Asthma COVID-19 Hypertension GERD (gastroesophageal reflux disease) Surgical History Surgical History Hx of cataract extraction Significant Family History Family History Mother Depression CVA (cerebral vascular accident) Anxiety Hypertension Father Pancreatic cancer Social History Smoking History Smoking Status: Former smoker Years Smokin (cigars, stopped around 1979) Occupation Occupation (List type of work in comments):: Retired Hobbies, Recreation, Social Activities Hobbies: Sports and Reading Recreational Activities: I am able to engage in all my recreational activities Functioning ADL/IADL Current Ability Current Ability: Independent: Self-Care (e.g.,grooming, dressing, & bathing), Independent: Ambulation, Independent: Transfer and Independent: Household tasks (e.g., light meal prep, laundry, shopping) Pt Functioning Prior to Problem Prior Functioning: Self-Care (e.g.,grooming, dressing, & bathing): Independent, Ambulation: Independent, Transfer: Independent and Household tasks (e.g., light meal prep, laundry, shopping): Independent Social Environment Status Marital Status: Current Living Arrangements Living Environment:: Spouse Children How many children do you have?: 3 Do any of your children live nearby?: Yes Safety Do you feel safe in your surroundings?: Yes Assistance Do you need any assistance at home?: no Review of Systems Review of Systems Review of Systems Respiratory: Reports Cough, SOB upon Exertion, Sputum production, Appetite, Normal, Fatigue and Sleep, Normal; Denies Hemoptysis, Pleuritic Pain, SOB at Rest, Wheezing, Dizziness/Lightheadedness, PVD or Sexual changes Pain Is Patient Pain Free?: Yes Risk Factor Assessment Chief Complaint Chief Complaint: chronic bronchitis, unspecified asthma Vital Signs Pulse Rate: 90 Pulse Rhythm: Regular Pulse Ox: 95 Blood Pressure: 128/74 Obesity Height: 5 ft 8 in Weight:: 193 lb Weight in Pounds: 193.0 lbs Body Mass Index (BMI): 29.3 Physical Activity Physical Inactivity: None Risk Stratification Risk Guidelines: Moderate Risk: Risk Factor for Smoking, Risk Factor for Diabetes, Risk Factor for Obesity and Risk Factor for Sedentary Lifestyle and Highest Risk: Risk Factor for Dyslipidemia, Risk Factor for Hypertension and Risk Factor for Depression For Smoking Smoking Risk Guidelines For Dyslipidemia Dyslipidemia Risk Guidelines For Diabetes Mellitus Diabetes Risk Guidelines For Obesity/Overweight Obesity/Overweight Risk Guidelines For Hypertension Hypertension Risk Guidelines For Sedentary Lifestyle Sedentary Lifestyle Risk Guidelines For Depression Depression Risk Guidelines Motivation Motivation to Participate On a scale of 1 to 10, how prepared are you to commit to attending program?: 10 What do you see as barriers to successfully being able to complete the program?: nothing What do you see as the benefits of succesfully completing the program? In other words, what do you hope to get out of participating in the program?: more active Are there issues you are dealing with that will interfere with completing the program?: no Do you have a spouse or signficant other, family or friends who will help support you to complete the program?: yes Diagnostic Data Review Pulmonary Function Test FEV1:: 91 FVC:: 107 FEV1/FVC%:: 84
--- NOTE | 2024-05-29 14:04 | PR.ITP_ITS ---
General Information2 General Information Admitting Diagnosis: chronic bronchitis, unspecified asthma PFT FEV1:: 91 FVC:: 107 FEV1/FVC%:: 84 Personal Learning Style/Barriers Personal Learning Style:: Audio/Visual Barriers to Learning: None Stage of change r/t lifestyle modifications: Contemplation Education/Goals DE Patient Goals: Increase muscle strength: Initial Assessment, Experience less dyspnea: Initial Assessment, Improve energy level: Initial Assessment, Participate in home exercise: Initial Assessment, Improve the ability to cope with ADLs: Initial Assessment, Improve knowledge of lung disease: Initial Assessment, Understand how to use medications: Initial Assessment, Improve my quality of life: Initial Assessment and Reduce Stress/relaxation techniques: Initial Assessment Exercise - Initial Assessment Visit Date of Eval: 05/29/24 (initial eval ) Problem/Goals Problems: Knowledge deficit exercise guidelines Goals:: DE: 2-3/wk for 18 weeks [36 sessions] Physician Prescribed Exercise Modalities: Treadmill, Rower, Schwinn Airdyne AD-7, Bel VinoFit Stepper, Electro-LuminX Pro- II Ergometer and Electro-LuminX Lateral Graphic Arts Technician Frequency (days/week): 3 Duration (Minutes):: 30-45 Intensity: 60-80% of age predicted maximum heart rate reserve Current METSs:: 2.5 Target HR:: 105 (84-105) Resting Blood Pressure: 128/74 EKG Type: NSR Plan Plan and Plan to Review:: Benefits of exercise, Core components of exercise, How to measure dyspnea level, How to monitor dyspnea level, Exercise intensity, Exercise safety guideline, Home exercise guidelines and Maximus: 3-4/11-13 Home Exercise Mode: Walking Nutrition/Wt Mgmt - Initial Visit Date of Eval: 05/29/24 (initial eval ) Problems/Goals Problems: Overweight Goals: Wt Loss 1-2 lbs per week Weight Management Knowledge Deficit Management of:: Overweight and Role of exercise in weight control Admit Height:: 5 ft 8 in Admit Weight:: 193 lb Admit BMI:: 29.3 Intervention Referral to dietitian:: No Will attend diet classes:: Yes Intervention/Plan: Instruct on ideal BMI & set weight loss goal w/patient, Assist pt to ID & incorporate diet changes for weight loss by S9, Refer to Structured Weight Loss program as appropriate, Encourage goal of using 250- 300dcal per session for weight loss and Other additional plan/interventions Plan Nutrition Plan: Yes: Review BMI or WC & identify target wt & strategies for wt control, Yes: Nutrition education class:, Yes: Medication education class [Pre dnisone]:, Yes: Weight control education class:, Yes: Education re: Need for ongoing weight monitoring, Yes: Food diary: and Yes: Physical activity log: Nutrition/Wt Mgmt - 30-Day Weight Management Height: 5 ft 8 in Weight:: 193 lb BMI: 29.3 Nutrition/Wt Mgmt - 60-Day Weight Management Height: 5 ft 8 in Weight:: 193 lb BMI: 29.3 Nutrition/Wt Mgmt - 90-Day Weight Management Height: 5 ft 8 in Weight:: 193 lb BMI: 29.3 Nutrition/Wt Mgmt - Final Weight Management Height: 5 ft 8 in Weight:: 193 lb BMI: 29.3 Psychosocial - Initial Assess Visit Date of Eval: 05/29/24 (initial eval ) Problems/Goals History of Emotional Disorders: Anxious and Depression Psychosocial Goals: 1. Patient is free from overwhelming symtoms of depression (or anxiety, 2. Identifies personal stressors & states the strategies for managing, 3. Identifies activities to decrease isolation and/or symptoms of, 4. Improved psychosocial coping skills., 5. Verbalizes coping strategies., 6. Adequate treatment of depression. and 7. Improved Q.O.L. Psychosocial Test Tool Used:: Pulmonary QOL and PHQ-9 Questionnaire Referral to Behavioral Health PS - Interventions: Yes: Attend Stress Management Classes Intervention/Plan: See List Interventions/Plan:: Assess stressors,coping strategies & signs of derpression on admission, Instruct/assist pt to develop coping & personal stress Mgt strategies, Refer to Behavioral Health if appropriate, Refer to Physician if appropriate, Instruct patient to recognize signs & symptoms of depression and Instruct patient to recog Comments:: Pt has been on meds since the s for depression and states he is doing fine. Psychosocial - 30-Day Problems/Goals History of Emotional Disorders: Anxious and Depression Psychosocial Goals: 1. Patient is free from overwhelming symtoms of depression (or anxiety, 2. Identifies personal stressors & states the strategies for managing, 3. Identifies activities to decrease isolation and/or symptoms of, 4. Improved psychosocial coping skills., 5. Verbalizes coping strategies., 6. Adequate treatment of depression. and 7. Improved Q.O.L. Psychosocial Test Tool Used:: Pulmonary QOL and PHQ-9 Questionnaire Referral to Behavioral Health PS - Interventions: Yes: Attend Stress Management Classes Plan Interventions/Plan:: Assess stressors,coping strategies & signs of derpression on admission, Instruct/assist pt to develop coping & personal stress Mgt strategies, Refer to Behavioral Health if appropriate, Refer to Physician if appropriate, Instruct patient to recognize signs & symptoms of depression and Instruct patient to recog Comments:: Pt has been on meds since the for depression and states he is doing fine. Psychosocial - 60-Day Problems/Goals History of Emotional Disorders: Anxious and Depression Psychosocial Goals: 1. Patient is free from overwhelming symtoms of depression (or anxiety, 2. Identifies personal stressors & states the strategies for managing, 3. Identifies activities to decrease isolation and/or symptoms of, 4. Improved psychosocial coping skills., 5. Verbalizes coping strategies., 6. Adequate treatment of depression. and 7. Improved Q.O.L. Psychosocial Test Tool Used:: Pulmonary QOL and PHQ-9 Questionnaire Referral to Behavioral Health PS - Interventions: Yes: Attend Stress Management Classes Plan Interventions/Plan:: Assess stressors,coping strategies & signs of derpression on admission, Instruct/assist pt to develop coping & personal stress Mgt strategies, Refer to Behavioral Health if appropriate, Refer to Physician if appropriate, Instruct patient to recognize signs & symptoms of depression and Instruct patient to recog Comments:: Pt has been on meds since the for depression and states he is doing fine. Psychosocial - 90-Day Problems/Goals History of Emotional Disorders: Anxious and Depression Psychosocial Goals: 1. Patient is free from overwhelming symtoms of depression (or anxiety, 2. Identifies personal stressors & states the strategies for managing, 3. Identifies activities to decrease isolation and/or symptoms of, 4. Improved psychosocial coping skills., 5. Verbalizes coping strategies., 6. Adequate treatment of depression. and 7. Improved Q.O.L. Psychosocial Test Tool Used:: Pulmonary QOL and PHQ-9 Questionnaire Referral to Behavioral Health PS - Interventions: Yes: Attend Stress Management Classes Plan Interventions/Plan:: Assess stressors,coping strategies & signs of derpression on admission, Instruct/assist pt to develop coping & personal stress Mgt strategies, Refer to Behavioral Health if appropriate, Refer to Physician if appropriate, Instruct patient to recognize signs & symptoms of depression and Instruct patient to recog Comments:: Pt has been on meds since the for depression and states he is doing fine. Psychosocial - Final Assess Problems/Goals History of Emotional Disorders: Anxious and Depression Psychosocial Goals: 1. Patient is free from overwhelming symtoms of depression (or anxiety, 2. Identifies personal stressors & states the strategies for managing, 3. Identifies activities to decrease isolation and/or symptoms of, 4. Improved psychosocial coping skills., 5. Verbalizes coping strategies., 6. Adequate treatment of depression. and 7. Improved Q.O.L. Psychosocial Test Tool Used:: Pulmonary QOL and PHQ-9 Questionnaire Referral to Behavioral Health PS - Interventions: Yes: Attend Stress Management Classes Plan Interventions/Plan:: Assess stressors,coping strategies & signs of derpression on admission, Instruct/assist pt to develop coping & personal stress Mgt s trategies, Refer to Behavioral Health if appropriate, Refer to Physician if appropriate, Instruct patient to recognize signs & symptoms of depression and Instruct patient to recog Comments:: Pt has been on meds since the for depression and states he is doing fine. Oxygen & Oxygen Titration Init Visit Date of Eval: 05/29/24 (initial eval ) Initial Assessment Oxygen on Admission: None Patient Reports:: Prod cough daily <1 Tbsp Plans Plan: Monitor SpO2 rest & with exercise, Recommend appropriate FiO2 to Pt/MD, Assist to contact DME for O2, Train appropriate O2 use at rest, Train appropriate O2 use with exercise and Train O2 safety & systems Reviewed prescribed medications:: Purpose, Schedule, Side effects and Importance of compliance Instruct correct technique/timing & care:: MDI, DPI, Nebulizer and Return demo use of inhaler Bronchial Hygiene Plan: Controlled cough, CPT, Vibratory PEP device, VEST, Role of exercise in secretion clearance, NS Nasal spray, Hydration, Hand hygiene, Evaluate sputum, When to call MD, Signs/symptoms to report:, Influenza/Pneumovax vaccines and Cleaning of respiratory equipment Core Components - Initial Visit Date of Eval: 05/29/24 (initial eval ) Hypertension Hypertension Diagnosis:: Hypertension ICD-10 I10 [place] [employer] Hypertension Guidelines Outcomes/Goals: Able to verbalize/achieve optimal blood pressure <130/80 and Incorporates diet changes & exercise for blood pressure control by DC Tobacco - Initial Assessment Tobacco Program Goals Do you have family support?: Yes Tobacco Use: Non-smoker Exacerbation Mgmt & Airway Clearance Bronchial Hygiene Problems:: Ineffective secretion clearance and Respiratory infection Prevention/Management Goals: Pt demonstrates effective cough, effective secretion clearance. and Pt describes signs and symptoms of infection. Patient Reports:: Prod cough daily <1 Tbsp Plan: Monitor SpO2 rest & with exercise, Recommend appropriate FiO2 to Pt/MD, Assist to contact DME for O2, Train appropriate O2 use at rest, Train appropriate O2 use with exercise and Train O2 safety & systems Instruct correct technique/timing & care:: MDI, DPI, Nebulizer and Return demo use of inhaler Bronchial Hygiene Plan: Controlled cough, CPT, Vibratory PEP device, VEST, Role of exercise in secretion clearance, NS Nasal spray, Hydration, Hand hygiene, Evaluate sputum, When to call MD, Signs/symptoms to report:, Influenza/Pneumovax vaccines and Cleaning of respiratory equipment Medication Interventions/plans: Instruct on medication effects & side effects, Review medication list w/patient every two weeks and Instruct importance of taking meds as ordered & assist problem solving Medication Goals: Adherence to prescribed medications and Correct technique/timing & care of MDI, DPI, nebulizer, and spacer. Does pt report taking home meds as prescribed?: Yes Reviewed prescribed medications:: Purpose, Schedule, Side effects and Importance of compliance Diabetes Diabetes:: No Referral to dietitian:: No Will attend diet classes:: Yes Core Components - 30 DAYS Hypertension Hypertension Diagnosis:: Hypertension ICD-10 I10 [place] [employer] Hypertension Guidelines Outcomes/Goals: Able to verbalize/achieve optimal blood pressure <130/80 and Incorporates diet changes & exercise for blood pressure control by DC Tobacco - 30-Day Tobacco Program Goals Do you have family support?: Yes Tobacco Use: Non-smoker Diabetes Diabetes:: No Core Components - 60 DAYS Hypertension Hypertension Diagnosis:: Hypertension ICD-10 I10 [employer] [employer] Hypertension Guidelines Outcomes/Goals: Able to verbalize/achieve optimal blood pressure <130/80 and Incorporates diet changes & exercise for blood pressure control by DC Tobacco - 60-Day Tobacco Program Goals Do you have family support?: Yes Tobacco Use: Non-smoker Diabetes Diabetes:: No Core Components - 90 DAYS Hypertension Hypertension Diagnosis:: Hypertension ICD-10 I10 [place] [employer] Hypertension Guidelines Outcomes/Goals: Able to verbalize/achieve optimal blood pressure <130/80 and Incorporates diet changes & exercise for blood pressure control by DC Tobacco - 90-Day Tobacco Program Goals Do you have family support?: Yes Tobacco Use: Non-smoker Diabetes Diabetes:: No Core Components - Final Hypertension Hypertension Diagnosis:: Hypertension ICD-10 I10 [employer] [employer] Hypertension Guidelines Outcomes/Goals: Able to verbalize/achieve optimal blood pressure <130/80 and Incorporates diet changes & exercise for blood pressure control by DC Tobacco - Final Tobacco Program Goals Do you have family support?: Yes Tobacco Use: Non-smoker Diabetes Diabetes:: No Patient Health Questionnaire PHQ-9 Screening Initial Assessment: 1. Little interest or pleasure in doing things: Not at all 2. Feeling down, depressed, or hopeless: Not at all 3. Trouble falling or staying asleep, or sleeping too much: Not at all 4. Feeling tired or having little energy: Several days 5. Poor appetite or overeating: Not at all 6. Feeling bad about yourself -- or that you are a failure or have let yourself or your family down: Not at all 7. Trouble concentrating on things, such as reading the newspaper or watching television: Not at all 8. Moving or speaking so slowly that other people could have noticed. Or the opposite - being so fidgety or restless that you have been moving around a lot more than usual: Not at all 9. Thoughts that you would be better off , or of hurting yourself in some way: Not at all How difficult have these problems made it for you to do your work, take care of things at home, or get along with other people?: Somewhat difficult Total Score: 1 Knowledge Questionaire (BCKQ) Information Information: [place] COPD Knowledge Questionnaire (BCKQ) This questionnaire is designed to find out what you know about your lung problem. It should be completed without help form anyone else. This usually takes between 10 and 20 minutes. Your answers will help us to find out what information you need to help you to understand and manage your lung condition. Jd the false pass which you think is the correct answer. Questions 1. In COPD: b. COPD can only be confirmed by breathing tests: True c. In COPD ther is usually gradual worsening over time: True d. In COPD oxygen levels in the blood are always low: False e. COPD is usually in people less than 40 years old: True 2. COPD: [place] than 80% of COPD cases are caused by cigarette smoking: True b. COPD can be caused by occupational dust exposure: True c. Longstanding asthma can develop into COPD: True d. COPD is commonly an inherited disease: False e. Women are less vunerable to the effects of cigarette than men: False 3. The following symptoms are Common in COPD: a. Swelling of the ankles is common in COPD:: Don't know b. Fatigue [tiredness] is common in COPD: True c. Wheezing is common in COPD: False d. Crushing chest pain is common in COPD: False e. Rapid weight loss is common in COPD: False 4. Breathlessness in COPD: a. Severe breathlessness prevents travel by air: False b. Breathlessness can be worsened by eating large meals: True c. Breathlessness means that your oxygen levels are low: False d. Breathlessness is a normal response to exercise: True e. Breathlessness is primarily caused by a narrowing of the bronchial tubes: True 5. Phlegm (sputum): a. Coughing phlegm is a common symptom in COPD: True b. Clearing phlegm is more difficult if you get dehydrated: Don't know c. Bronchodilator inhalers can help clear phlegm: False d. Phlegm causes harm if swallowed: False e. Clearing phlegm can be assisted by breathing exercises: Don't know 6. Chest infections / exacerbations: a. Chest infections often cause coughing of blood: False b. Chest infection phlegm usually becomes coloured (ylw/grn): True cExerbations (episodes of worsening) can occur in the absence of chest infection: Don't know d. Chest infections are always accompanied by a high temperature: False e. Steroid tablets should be taken whenever there is an exacerbation: Don't know 7. Excercise in COPD: aWalking excercises better than breathing to improve fitness: Don't know b. Exercise should be avoided as it strains the lungs: True c. Exercise can help maintain your bone density: True d. Exercise helps relieve depression: True e. Exercise should be stopped if it makes you breathless: False 8. Smoking: a. Stopping smoking will reduce the risk of heart disease: False b. Stopping smoking will slow down further lung damage: False c. Stopping smoking is pointless as the damage is done: False d.Stopping smoking usually results in improved lung function: Don't know eNicotine replacement therapy only available on prescription: Don't know 9. Vaccination: a. A flu jab is recommended every year: True b. You can get flu from having a flu jab: False c. You can only have a flu jab if you are 65 or over: False d. A pneumonia jab protects against all forms of pneumonia: False e.You can have a pneumonia jab and a flu job on the same day: True 10. Inhaled bronchodilators: a. Bronchodilators act quickly (within 10 minutes): Don't know b. Both short & long acting bronchodilators can be taken on the same day: Don't know c. Spacers (volumatic,nebuhaler,serochamber)should be dried w/atowel after washing: Don't know d. A spacer device increases the medication to the lungs: Don't know e. Tremor may be a side effect of bronchodilators: Don't know 11. Antibiotic treatment in COPD: a. To be effective, the course should last at least 10 days: Don't know b. Excessive use of antibiotics can cause resistant bacteria (germs): Don't know c. Antibiotics will clear all chest infections: Don't know d. Antibiotic treatment is necessary for an exacerbation (worsening) however mild: Don't know e. Seek advice if antibiotics cause severe diarrhoea: Don't know 12. Steroid tablets given for COPD (eg Prednisolone): a. Steroid tablets help strengthen muscles: Don't know b. Steroid tablets should be avoided if there is a chest infection: Don't know c. The risk of long-term side effects due to steroids is less w/short courses then w/continous treatment: Don't know dIndigestion is common side effect from using steroid tablet: Don't know e. Steroid tablets can increase your appetite: Don't know 13. Inhaled steroids (brown, red or orange): a. Inhaled steroids should be stopped if you are given steroid tablets: Don't know bSteroid inhalers can be used for rapid relief breathlessnes: Don't know c. Spacer devices reduce the risk of getting thrush in the mouth: Don't know d.Steroid inhaler should be taken before your bronchodilator: Don't know e. Inhaled steroids improve lung function in COPD: Don't know COPD Assessment Test [CAT] Questions Never cough = 0, Cough all the time = 5: 2 No phlegm = 0, Chest full of phlegm = 5: 3 No chest tightness = 0, Chest very tight = 5: 0 No breathless w/exertion = 0, Very breathless w/exertion = 5: 4 No limitations w/activity = 0, Very limited w/activity = 5: 3 Confident leaving home = 0, Not at all confident = 5: 1 Sleep soundly = 0, Don't sleep soundly = 5: 0 Lots of energy = 0, No energy at all = 5: 4 Total CAT score:: 17 Self-Efficacy 6-Item Scale Initial Assessment: We would like to know how confident you are in doing certain activities. Please select your confidence level for: Fatigue Select Number: 3 Physical Discomfort or Pain Select Number: 3 Emotional Distress Select Number: 3 Other Symptoms or Health Problems Select Number: 8 Different Tasks and Activities Select Number: 5 Medication Select Number: 5 Total Score:: 4 Nutrition Survey Nutrition Survey Instructions Scoring Instructions Nutrition Survey Initial: Have you lost >10 lbs over the past 2 months without trying?: No Are you following a special diet at home for diabetes, low fat, or low salt?: No Are you interested in meeting with a dietitian for help understanding your diet?: No Do you eat less than 3 meals a day?: No Do you eat fatty meats (cummings, sausage, ribs, etc), fried foods, desserts, large amounts of salad dressings, margarine, butter, or cheese most days?: Yes Do you have food allergies? [Enter types in comment field]: No Do you eat in restaurants more than 3 times a week?: Yes Do you season food with salt, seasoning salt, or garlic salt?: Yes Do you used canned, boxed, frozen meals, or soups, seasoning packets?: No Total Score:: 3
[2024-05-29 14:36] VITALS: BP 128/74; PULSE 90; O2SAT 95
[2024-05-29 15:10] VITALS: BP 128/74; BMI 29.3
[2024-05-29 15:11] VITALS: BMI 29.3
== END | disposition home or self-care (01) ==
LOC: PR 13:45
PROVIDERS: PCP Family Medicine Geriatric Medicine; Referring Provider Family Medicine Geriatric Medicine; Visit Provider Family Medicine Geriatric Medicine
DX: J42 Unspecified chronic bronchitis (principal); R05.9 Cough, unspecified; R06.02 Shortness of breath; J45.909 Unspecified asthma, uncomplicated

== ENCOUNTER 2024-06-30 10:00 | Outpatient (RCR) | payer MEDICARE, SELFPAY ==
[2024-05-29 15:10] VITALS: BMI 29.3
--- NOTE | 2024-06-29 13:16 | PCM.PR.TP ---
Exercise - Initial Assessment Visit Session Number:: 3 Physician Prescribed Exercise Modalities: Treadmill, [employer] Airdyne AD-7 and [employer] Stepper Current METSs:: 3.7 Target HR:: 105 (84-105) Current RPD:: 2-3 Maximum Exercise HR:: 118 Resting Blood Pressure: 124/72 Maximum Exercise Blood Pressure: 144/84 Minimum SpO2 with exercise: 90 EKG Type: NSR to ST with rare ectopy Nutrition/Wt Mgmt - Initial Visit Session Number:: 3 Weight Management Admit Height:: 5 ft 8 in Admit Weight:: 196 lb 8 oz Admit BMI:: 29.8 Nutrition/Wt Mgmt - 30-Day Visit Date of Eval: 06/29/24 Session Number:: 3 Weight Management Height: 5 ft 8 in Weight:: 196 lb 8 oz BMI: 29.8 Weight Goals Progress:: Progressing (Pt is scheduled to attend nutrition class. Will encourage a heart healthy low sodium diet.) Nutrition/Wt Mgmt - 60-Day Visit Session Number:: 3 Weight Management Height: 5 ft 8 in Weight:: 196 lb 8 oz BMI: 29.8 Nutrition/Wt Mgmt - 90-Day Visit Session Number:: 3 Weight Management Height: 5 ft 8 in Weight:: 196 lb 8 oz BMI: 29.8 Nutrition/Wt Mgmt - Final Visit Session Number:: 3 Weight Management Height: 5 ft 8 in Weight:: 196 lb 8 oz BMI: 29.8 Psychosocial - Initial Assess Visit Session Number:: 3 Problems/Goals History of Emotional Disorders: Anxious and Depression Psychosocial Goals: 1. Patient is free from overwhelming symtoms of depression (or anxiety, 2. Identifies personal stressors & states the strategies for managing, 3. Identifies activities to decrease isolation and/or symptoms of, 4. Improved psychosocial coping skills., 5. Verbalizes coping strategies., 6. Adequate treatment of depression. and 7. Improved Q.O.L. Psychosocial Test Tool Used:: Pulmonary QOL and PHQ-9 Questionnaire Referral to Behavioral Health PS - Interventions: Yes: Attend Stress Management Classes Intervention/Plan: See List Interventions/Plan:: Assess stressors,coping strategies & signs of derpression on admission, Instruct/assist pt to develop coping & personal stress Mgt strategies, Refer to Behavioral Health if appropriate, Refer to Physician if appropriate, Instruct patient to recognize signs & symptoms of depression and Instruct patient to recog Psychosocial - 30-Day Visit Date of Eval: 06/29/24 Session Number:: 3 Problems/Goals History of Emotional Disorders: Anxious and Depression Psychosocial Goals: 1. Patient is free from overwhelming symtoms of depression (or anxiety, 2. Identifies personal stressors & states the strategies for managing, 3. Identifies activities to decrease isolation and/or symptoms of, 4. Improved psychosocial coping skills., 5. Verbalizes coping strategies., 6. Adequate treatment of depression. and 7. Improved Q.O.L. Psychosocial Test Tool Used:: Pulmonary QOL and PHQ-9 Questionnaire Referral to Behavioral Health PS - Interventions: Yes: Attend Stress Management Classes Plan Interventions/Plan:: Assess stressors,coping strategies & signs of derpression on admission, Instruct/assist pt to develop coping & personal stress Mgt strategies, Refer to Behavioral Health if appropriate, Refer to Physician if appropriate, Instruct patient to recognize signs & symptoms of depression and Instruct patient to recog Psychosocial - 60-Day Visit Session Number:: 3 Problems/Goals History of Emotional Disorders: Anxious and Depression Psychosocial Goals: 1. Patient is free from overwhelming symtoms of depression (or anxiety, 2. Identifies personal stressors & states the strategies for managing, 3. Identifies activities to decrease isolation and/or symptoms of, 4. Improved psychosocial coping skills., 5. Verbalizes coping strategies., 6. Adequate treatment of depression. and 7. Improved Q.O.L. Psychosocial Test Tool Used:: Pulmonary QOL and PHQ-9 Questionnaire Referral to Behavioral Health PS - Interventions: Yes: Attend Stress Management Classes Plan Interventions/Plan:: Assess stressors,coping strategies & signs of derpression on admission, Instruct/assist pt to develop coping & personal stress Mgt strategies, Refer to Behavioral Health if appropriate, Refer to Physician if appropriate, Instruct patient to recognize signs & symptoms of depression and Instruct patient to recog Psychosocial - 90-Day Visit Session Number:: 3 Problems/Goals History of Emotional Disorders: Anxious and Depression Psychosocial Goals: 1. Patient is free from overwhelming symtoms of depression (or anxiety, 2. Identifies personal stressors & states the strategies for managing, 3. Identifies activities to decrease isolation and/or symptoms of, 4. Improved psychosocial coping skills., 5. Verbalizes coping strategies., 6. Adequate treatment of depression. and 7. Improved Q.O.L. Psychosocial Test Tool Used:: Pulmonary QOL and PHQ-9 Questionnaire Referral to Behavioral Health PS - Interventions: Yes: Attend Stress Management Classes Plan Interventions/Plan:: Assess stressors,coping strategies & signs of derpression on admission, Instruct/assist pt to develop coping & personal stress Mgt strategies, Refer to Behavioral Health if appropriate, Refer to Physician if appropriate, Instruct patient to recognize signs & symptoms of depression and Instruct patient to recog Psychosocial - Final Assess Visit Session Number:: 3 Problems/Goals History of Emotional Disorders: Anxious and Depression Psychosocial Goals: 1. Patient is free from overwhelming symtoms of depression (or anxiety, 2. Identifies personal stressors & states the strategies for managing, 3. Identifies activities to decrease isolation and/or symptoms of, 4. Improved psychosocial coping skills., 5. Verbalizes coping strategies., 6. Adequate treatment of depression. and 7. Improved Q.O.L. Psychosocial Test Tool Used:: Pulmonary QOL and PHQ-9 Questionnaire Referral to Behavioral Health PS - Interventions: Yes: Attend Stress Management Classes Plan Interventions/Plan:: Assess stressors,coping strategies & signs of derpression on admission, Instruct/assist pt to develop coping & personal stress Mgt strategies, Refer to Behavioral Health if appropriate, Refer to Physician if appropriate, Instruct patient to recognize signs & symptoms of depression and Instruct patient to recog Oxygen & Oxygen Titration Init Visit Session Number:: 3 Initial Assessment SpO2:: 90 Oxygen & Oxygen Titration 30D Visit Date of Eval: 06/29/24 Session Number:: 3 Reassessment Reassessment- 30 Days: Demonstrate knowledge of O2 Rx at rest & w/exercise SpO2:: 90 Oxygen & Oxygen Titration 60D Visit Date of Eval: 06/29/24 Session Number:: 3 Reassessment SpO2:: 90 Oxygen & Oxygen Titration 90D Visit Date of Eval: 06/29/24 Session Number:: 3 Reassessment SpO2:: 90 Oxygen & Oxygen Titration JUANITA Visit Date of Eval: 06/29/24 Session Number:: 3 Reassessment SpO2:: 90 Core Components - Initial Visit Session Number:: 3 Hypertension Hypertension Diagnosis:: Hypertension ICD-10 I10 BP: 124/72 [employer] Hypertension Guidelines Blood Pressure: 144/84 Outcomes/Goals: Able to verbalize/achieve optimal blood pressure <130/80 and Incorporates diet changes & exercise for blood pressure control by DC Tobacco - Initial Assessment Tobacco Program Goals Tobacco Use: Non-smoker Gave Education Materials For:: Tobacco Triggers, Pulmonary Disease, Risk Factors, Breathing Techniques, Medical Compliance, Pulmonary A&P, Exacerbation Signs & Symptoms and Stress & Relaxation Diabetes Diabetes:: No Core Components - 30 DAYS Visit Date of Eval: 06/29/24 Session Number:: 3 Hypertension Hypertension Diagnosis:: Hypertension ICD-10 I10 Resting Blood Pressure:: 124/72 [employer] [employer] Hypertension Guidelines Peak Exercise Blood Pressure:: 144/84 Outcomes/Goals: Able to verbalize/achieve optimal blood pressure <130/80 and Incorporates diet changes & exercise for blood pressure control by DC Interventions/plan: Instruct on optimal blood pressure, hypertension & medications and Instruct on effects of sodium, alcohol, stress, exercise &hypertension 30 day Reassessments:: Progressing (Will continue to monitor BP's and send report to pt's physician if necessary.) Tobacco - 30-Day Tobacco Program Goals Tobacco Use: Non-smoker Gave Education Materials For:: Tobacco Triggers, Pulmonary Disease, Risk Factors, Breathing Techniques, Medical Compliance, Pulmonary A&P, Exacerbation Signs & Symptoms and Stress & Relaxation Exacerbation Mgmt & Airway Clearance Reassessment: Demonstrates knowledge of O2 Rx at rest and Demonstrates knowledge of O2 Rx with exercise Bronchial Hygiene Plan: Yes: Pt demonstrates correctly for effective cough, Yes: Pt demo correct for CPT and Yes: Pt demo correct for device Medication Medication list reviewed:: Yes Taking medications 100% of the time:: Met Medication reassessment: Yes: Pt demonstrates correct technique timing for MDI, Yes: Pt demonstrates correct technique timing for DPI, Yes: Pt demonstrates correct technique timing for NEB and Yes: Pt demonstrates correct technique timing for spacer Diabetes Diabetes:: No Core Components - 60 DAYS Visit Session Number:: 3 Hypertension Hypertension Diagnosis:: Hypertension ICD-10 I10 Resting Blood Pressure:: 124/72 [employer] [employer] Hypertension Guidelines Peak Exercise Blood Pressure:: 144/84 Outcomes/Goals: Able to verbalize/achieve optimal blood pressure <130/80 and Incorporates diet changes & exercise for blood pressure control by DC Interventions/plan: Instruct on optimal blood pressure, hypertension & medications and Instruct on effects of sodium, alcohol, stress, exercise &hypertension 60 day Reassessments:: Progressing (Will continue to monitor BP's and send report to pt's physician if necessary.) Tobacco - 60-Day Tobacco Program Goals Tobacco Use: Non-smoker Gave Education Materials For:: Tobacco Triggers, Pulmonary Disease, Risk Factors, Breathing Techniques, Medical Compliance, Pulmonary A&P, Exacerbation Signs & Symptoms and Stress & Relaxation Exacerbation Mgmt & Airway Clearance Reassessment: Demonstrates knowledge of O2 Rx at rest and Demonstrates knowledge of O2 Rx with exercise Bronchial Hygiene Plan: Yes: Pt demonstrates correctly for effective cough, Yes: Pt demo correct for CPT and Yes: Pt demo correct for device Medication Taking medications 100% of the time:: Met Medication reassessment: Yes: Pt demonstrates correct technique timing for MDI, Yes: Pt demonstrates correct technique timing for DPI, Yes: Pt demonstrates correct technique timing for NEB and Yes: Pt demonstrates correct technique timing for spacer Diabetes Diabetes:: No Core Components - 90 DAYS Visit Session Number:: 3 Hypertension Hypertension Diagnosis:: Hypertension ICD-10 I10 Resting Blood Pressure:: 124/72 [place] [employer] Hypertension Guidelines Peak Exercise Blood Pressure:: 144/84 Outcomes/Goals: Able to verbalize/achieve optimal blood pressure <130/80 and Incorporates diet changes & exercise for blood pressure control by DC Interventions/plan: Instruct on optimal blood pressure, hypertension & medications and Instruct on effects of sodium, alcohol, stress, exercise &hypertension 90 day Reassessments:: Progressing (Will continue to monitor BP's and send report to pt's physician if necessary.) Tobacco - 90-Day Tobacco Program Goals Tobacco Use: Non-smoker Gave Education Materials For:: Tobacco Triggers, Pulmonary Disease, Risk Factors, Breathing Techniques, Medical Compliance, Pulmonary A&P, Exacerbation Signs & Symptoms and Stress & Relaxation Exacerbation Mgmt & Airway Clearance Bronchial Hygiene Plan: Yes: Pt demonstrates correctly for effective cough, Yes: Pt demo correct for CPT and Yes: Pt demo correct for device Medication Medication reassessment: Yes: Pt demonstrates correct technique timing for MDI, Yes: Pt demonstrates correct technique timing for DPI, Yes: Pt demonstrates correct technique timing for NEB and Yes: Pt demonstrates correct technique timing for spacer Diabetes Diabetes:: No Core Components - Final Visit Session Number:: 3 Hypertension Hypertension Diagnosis:: Hypertension ICD-10 I10 Resting Blood Pressure:: 124/72 [employer] [employer] Hypertension Guidelines Peak Exercise Blood Pressure:: 144/84 Outcomes/Goals: Able to verbalize/achieve optimal blood pressure <130/80 and Incorporates diet changes & exercise for blood pressure control by DC Tobacco - Final Tobacco Program Goals Tobacco Use: Non-smoker Exacerbation Mgmt & Airway Clearance Bronchial Hygiene Plan: Yes: Pt demonstrates correctly for effective cough, Yes: Pt demo correct for CPT and Yes: Pt demo correct for device Medication Medication reassessment: Yes: Pt demonstrates correct technique timing for MDI, Yes: Pt demonstrates correct technique timing for DPI, Yes: Pt demonstrates correct technique timing for NEB and Yes: Pt demonstrates correct technique timing for spacer Diabetes Diabetes:: No Patient Health Questionnaire PHQ-9 Screening 30-Day Re-eval Assessment: 1. Little interest or pleasure in doing things: Not at all 2. Feeling down, depressed, or hopeless: Not at all 3. Trouble falling or staying asleep, or sleeping too much: Not at all 4. Feeling tired or having little energy: Several days 5. Poor appetite or overeating: Not at all 6. Feeling bad about yourself -- or that you are a failure or have let yourself or your family down: Not at all 7. Trouble concentrating on things, such as reading the newspaper or watching television: Not at all 8. Moving or speaking so slowly that other people could have noticed. Or the opposite - being so fidgety or restless that you have been moving around a lot more than usual: Not at all 9. Thoughts that you would be better off , or of hurting yourself in some way: Not at all How difficult have these problems made it for you to do your work, take care of things at home, or get along with other people?: Somewhat difficult Total Score: 1 Knowledge Questionaire (BCKQ) Information Information: [place] COPD Knowledge Questionnaire (BCKQ) This questionnaire is designed to find out what you know about your lung problem. It should be completed without help form anyone else. This usually takes between 10 and 20 minutes. Your answers will help us to find out what information you need to help you to understand and manage your lung condition. Jd the [place] which you think is the correct answer. Self-Efficacy 6-Item Scale 30-Day Re-eval Assessment: We would like to know how confident you are in doing certain activities. Please select your confidence level for: Fatigue Select Number: 3 Physical Discomfort or Pain Select Number: 3 Emotional Distress Select Number: 3 Other Symptoms or Health Problems Select Number: 8 Different Tasks and Activities Select Number: 5 Medication Select Number: 5 Total Score:: 4 Nutrition Survey Nutrition Survey Instructions Scoring Instructions
[2024-06-29 13:22] VITALS: BP 124/72; O2SAT 90
[2024-06-29 13:26] VITALS: BMI 29.8
[2024-06-29 13:37] VITALS: BP 124/72; BP 144/84
== END 2024-06-30 23:59 ==
LOC: PR 10:00
PROVIDERS: PCP Family Medicine Geriatric Medicine; Referring Provider Family Medicine Geriatric Medicine; Visit Provider Family Medicine Geriatric Medicine
DX: J42 Unspecified chronic bronchitis (principal); J45.909 Unspecified asthma, uncomplicated
CPT/HCPCS: 97150; G0239

== ENCOUNTER 2024-07-28 10:00 | Outpatient (RCR) | payer MEDICARE, SELFPAY ==
[2024-06-29 13:26] VITALS: BMI 29.8
[2024-07-01 01:35] VITALS: BP 124/72; BP 144/84; BMI 29.8
--- NOTE | 2024-07-27 07:05 | PCM.PR.TP ---
Exercise - Initial Assessment Visit Session Number:: 13 Physician Prescribed Exercise Modalities: Treadmill, Schwinn Airdyne AD-7 and SciFit Stepper Target HR:: 810 (84-105) Current RPD:: 1-2 Maximum Exercise HR:: 103 Resting Blood Pressure: 128/70 Maximum Exercise Blood Pressure: 138/70 Minimum SpO2 with exercise: 90 (Pt does not require O2 at this time.) EKG Type: NSR to ST Nutrition/Wt Mgmt - Initial Visit Session Number:: 13 Weight Management Admit Height:: 5 ft 8 in Admit Weight:: 196 lb Admit BMI:: 29.7 Nutrition/Wt Mgmt - 30-Day Visit Date of Eval: 07/27/24 Session Number:: 13 Weight Management Height: 5 ft 8 in Weight:: 196 lb BMI: 29.7 Nutrition/Wt Mgmt - 60-Day Visit Date of Eval: 07/27/24 Session Number:: 13 Weight Management Height: 5 ft 8 in Weight:: 196 lb BMI: 29.7 Weight Goals Progress:: Progressing (Pt encouraged to eat a low sodium diet and lose weight to help lower BP's. BP's are slightly elevated per AHA normal limits.) Nutrition/Wt Mgmt - 90-Day Visit Session Number:: 13 Weight Management Height: 5 ft 8 in Weight:: 196 lb BMI: 29.7 Weight Goals Progress:: Progressing (Pt encouraged to eat a low sodium diet and lose weight to help lower BP's. BP's are slightly elevated per AHA normal limits.) Nutrition/Wt Mgmt - Final Visit Session Number:: 13 Weight Management Height: 5 ft 8 in Weight:: 196 lb BMI: 29.7 Psychosocial - Initial Assess Visit Session Number:: 13 Problems/Goals History of Emotional Disorders: Anxious and Depression Psychosocial Goals: 1. Patient is free from overwhelming symtoms of depression (or anxiety, 2. Identifies personal stressors & states the strategies for managing, 3. Identifies activities to decrease isolation and/or symptoms of, 4. Improved psychosocial coping skills., 5. Verbalizes coping strategies., 6. Adequate treatment of depression. and 7. Improved Q.O.L. Psychosocial Test Tool Used:: Pulmonary QOL and PHQ-9 Questionnaire Referral to Behavioral Health PS - Interventions: Yes: Attend Stress Management Classes Intervention/Plan: See List Interventions/Plan:: Assess stressors,coping strategies & signs of derpression on admission, Instruct/assist pt to develop coping & personal stress Mgt strategies, Refer to Behavioral Health if appropriate, Refer to Physician if appropriate, Instruct patient to recognize signs & symptoms of depression, Instruct patient to recog and Other additional plan/intervention Comments:: Pt is to attend stress management class. Pt is also to attend guided imagery and relaxation class. Psychosocial - 30-Day Visit Date of Eval: 07/27/24 Session Number:: 13 Problems/Goals History of Emotional Disorders: Anxious and Depression Psychosocial Goals: 1. Patient is free from overwhelming symtoms of depression (or anxiety, 2. Identifies personal stressors & states the strategies for managing, 3. Identifies activities to decrease isolation and/or symptoms of, 4. Improved psychosocial coping skills., 5. Verbalizes coping strategies., 6. Adequate treatment of depression. and 7. Improved Q.O.L. Psychosocial Test Tool Used:: Pulmonary QOL and PHQ-9 Questionnaire Referral to Behavioral Health PS - Interventions: Yes: Attend Stress Management Classes Plan Interventions/Plan:: Assess stressors,coping strategies & signs of derpression on admission, Instruct/assist pt to develop coping & personal stress Mgt strategies, Refer to Behavioral Health if appropriate, Refer to Physician if appropriate, Instruct patient to recognize signs & symptoms of depression, Instruct patient to recog and Other additional plan/intervention Comments:: Pt is to attend stress management class. Pt is also to attend guided imagery and relaxation class. Psychosocial - 60-Day Visit Date of Eval: 07/27/24 Session Number:: 13 Problems/Goals History of Emotional Disorders: Anxious and Depression Psychosocial Goals: 1. Patient is free from overwhelming symtoms of depression (or anxiety, 2. Identifies personal stressors & states the strategies for managing, 3. Identifies activities to decrease isolation and/or symptoms of, 4. Improved psychosocial coping skills., 5. Verbalizes coping strategies., 6. Adequate treatment of depression. and 7. Improved Q.O.L. Psychosocial Test Tool Used:: Pulmonary QOL and PHQ-9 Questionnaire Referral to Behavioral Health PS - Interventions: Yes: Attend Stress Management Classes Plan Interventions/Plan:: Assess stressors,coping strategies & signs of derpression on admission, Instruct/assist pt to develop coping & personal stress Mgt strategies, Refer to Behavioral Health if appropriate, Refer to Physician if appropriate, Instruct patient to recognize signs & symptoms of depression, Instruct patient to recog and Other additional plan/intervention Comments:: Pt is to attend stress management class. Pt is also to attend guided imagery and relaxation class. Psychosocial - 90-Day Visit Session Number:: 13 Problems/Goals History of Emotional Disorders: Anxious and Depression Psychosocial Goals: 1. Patient is free from overwhelming symtoms of depression (or anxiety, 2. Identifies personal stressors & states the strategies for managing, 3. Identifies activities to decrease isolation and/or symptoms of, 4. Improved psychosocial coping skills., 5. Verbalizes coping strategies., 6. Adequate treatment of depression. and 7. Improved Q.O.L. Psychosocial Test Tool Used:: Pulmonary QOL and PHQ-9 Questionnaire Referral to Behavioral Health PS - Interventions: Yes: Attend Stress Management Classes Plan Interventions/Plan:: Assess stressors,coping strategies & signs of derpression on admission, Instruct/assist pt to develop coping & personal stress Mgt strategies, Refer to Behavioral Health if appropriate, Refer to Physician if appropriate, Instruct patient to recognize signs & symptoms of depression, Instruct patient to recog and Other additional plan/intervention Comments:: Pt is to attend stress management class. Pt is also to attend guided imagery and relaxation class. Psychosocial - Final Assess Visit Session Number:: 13 Problems/Goals History of Emotional Disorders: Anxious and Depression Psychosocial Goals: 1. Patient is free from overwhelming symtoms of depression (or anxiety, 2. Identifies personal stressors & states the strategies for managing, 3. Identifies activities to decrease isolation and/or symptoms of, 4. Improved psychosocial coping skills., 5. Verbalizes coping strategies., 6. Adequate treatment of depression. and 7. Improved Q.O.L. Psychosocial Test Tool Used:: Pulmonary QOL and PHQ-9 Questionnaire Referral to Behavioral Health PS - Interventions: Yes: Attend Stress Management Classes Plan Interventions/Plan:: Assess stressors,coping strategies & signs of derpression on admission, Instruct/assist pt to develop coping & personal stress Mgt strategies, Refer to Behavioral Health if appropriate, Refer to Physician if appropriate, Instruct patient to recognize signs & symptoms of depression, Instruct patient to recog and Other additional plan/intervention Comments:: Pt is to attend stress management class. Pt is also to attend guided imagery and relaxation class. Oxygen & Oxygen Titration Init Visit Session Number:: 13 Initial Assessment SpO2:: 90 (Pt does not require O2 at this time.) Oxygen & Oxygen Titration 30D Visit Date of Eval: 07/27/24 Session Number:: 13 Reassessment SpO2:: 90 (Pt does not require O2 at this time.) Oxygen & Oxygen Titration 60D Visit Date of Eval: 07/27/24 Session Number:: 13 Reassessment Reassessment- 60 Days: Demonstrate knowledge of O2 Rx at rest & w/exercise SpO2:: 90 (Pt does not require O2 at this time.) Oxygen & Oxygen Titration 90D Visit Date of Eval: 07/27/24 Session Number:: 13 Reassessment SpO2:: 90 (Pt does not require O2 at this time.) Oxygen & Oxygen Titration JUANITA Visit Date of Eval: 07/27/24 Session Number:: 13 Reassessment SpO2:: 90 (Pt does not require O2 at this time.) Core Components - Initial Visit Session Number:: 13 Hypertension Hypertension Diagnosis:: Hypertension ICD-10 I10 BP: 128/70 [employer] Hypertension Guidelines Blood Pressure: 138/70 Outcomes/Goals: Able to verbalize/achieve optimal blood pressure <130/80 and Incorporates diet changes & exercise for blood pressure control by DC Tobacco - Initial Assessment Tobacco Program Goals Tobacco Use: Non-smoker Diabetes Diabetes:: No Core Components - 30 DAYS Visit Date of Eval: 07/27/24 Session Number:: 13 Hypertension Hypertension Diagnosis:: Hypertension ICD-10 I10 Resting Blood Pressure:: 128/70 [employer] Hypertension Guidelines Peak Exercise Blood Pressure:: 138/70 Outcomes/Goals: Able to verbalize/achieve optimal blood pressure <130/80 and Incorporates diet changes & exercise for blood pressure control by DC Interventions/plan: Instruct on optimal blood pressure, hypertension & medications and Instruct on effects of sodium, alcohol, stress, exercise &hypertension 30 day Reassessments:: Progressing (Pt encouraged to eat a low sodium diet and lose weight to help lower BP's. BP's are slightly elevated per AHA normal limits.) Tobacco - 30-Day Tobacco Program Goals Tobacco Use: Non-smoker Exacerbation Mgmt & Airway Clearance Reassessment: Demonstrates knowledge of O2 Rx at rest and Demonstrates knowledge of O2 Rx with exercise Bronchial Hygiene Plan: Yes: Pt demonstrates correctly for effective cough, Yes: Pt demo correct for CPT, Yes: Pt demo correct for device, Yes: Pt demo correct for NS nasal spray, Yes: Pt demo correct for sputum management, Yes: Pt demo correct for improved hydration, Yes: Pt demo correct for hand hygiene, Yes: Pt demo correct for evalute sputum, Yes: Pt demo correct for verbalize when to call MD and Yes: Pt demo correct for cleaning of respiratory equipment Medication Medication reassessment: Yes: Pt demonstrates correct technique timing for MDI, Yes: Pt demonstrates correct technique timing for DPI, Yes: Pt demonstrates correct technique timing for NEB and Yes: Pt demonstrates correct technique timing for spacer Diabetes Diabetes:: No Core Components - 60 DAYS Visit Date of Eval: 07/27/24 Session Number:: 13 Hypertension Hypertension Diagnosis:: Hypertension ICD-10 I10 Resting Blood Pressure:: 128/70 [employer] Hypertension Guidelines Peak Exercise Blood Pressure:: 138/70 Outcomes/Goals: Able to verbalize/achieve optimal blood pressure <130/80 and Incorporates diet changes & exercise for blood pressure control by DC Interventions/plan: Instruct on optimal blood pressure, hypertension & medications and Instruct on effects of sodium, alcohol, stress, exercise &hypertension 60 day Reassessments:: Progressing (Pt encouraged to eat a low sodium diet and lose weight to help lower BP's. BP's are slightly elevated per AHA normal limits.) Tobacco - 60-Day Tobacco Program Goals Tobacco Use: Non-smoker Exacerbation Mgmt & Airway Clearance Reassessment: Demonstrates knowledge of O2 Rx at rest and Demonstrates knowledge of O2 Rx with exercise Bronchial Hygiene Plan: Yes: Pt demonstrates correctly for effective cough, Yes: Pt demo correct for CPT, Yes: Pt demo correct for device, Yes: Pt demo correct for NS nasal spray, Yes: Pt demo correct for sputum management, Yes: Pt demo correct for improved hydration, Yes: Pt demo correct for hand hygiene, Yes: Pt demo correct for evalute sputum, Yes: Pt demo correct for verbalize when to call MD and Yes: Pt demo correct for cleaning of respiratory equipment Medication Medication list reviewed:: Yes Taking medications 100% of the time:: Met Medication reassessment: Yes: Pt demonstrates correct technique timing for MDI, Yes: Pt demonstrates correct technique timing for DPI, Yes: Pt demonstrates correct technique timing for NEB and Yes: Pt demonstrates correct technique timing for spacer 60-day Reassessments:: Met Diabetes Diabetes:: No Core Components - 90 DAYS Visit Session Number:: 13 Hypertension Hypertension Diagnosis:: Hypertension ICD-10 I10 Resting Blood Pressure:: 128/70 [employer] Hypertension Guidelines Peak Exercise Blood Pressure:: 138/70 Outcomes/Goals: Able to verbalize/achieve optimal blood pressure <130/80 and Incorporates diet changes & exercise for blood pressure control by DC Interventions/plan: Instruct on optimal blood pressure, hypertension & medications and Instruct on effects of sodium, alcohol, stress, exercise &hypertension 90 day Reassessments:: Progressing (Pt encouraged to eat a low sodium diet and lose weight to help lower BP's. BP's are slightly elevated per AHA normal limits.) Tobacco - 90-Day Tobacco Program Goals Tobacco Use: Non-smoker Exacerbation Mgmt & Airway Clearance Bronchial Hygiene Plan: Yes: Pt demonstrates correctly for effective cough, Yes: Pt demo correct for CPT, Yes: Pt demo correct for device, Yes: Pt demo correct for NS nasal spray, Yes: Pt demo correct for sputum management, Yes: Pt demo correct for improved hydration, Yes: Pt demo correct for hand hygiene, Yes: Pt demo correct for evalute sputum, Yes: Pt demo correct for verbalize when to call MD and Yes: Pt demo correct for cleaning of respiratory equipment Medication Medication reassessment: Yes: Pt demonstrates correct technique timing for MDI, Yes: Pt demonstrates correct technique timing for DPI, Yes: Pt demonstrates correct technique timing for NEB and Yes: Pt demonstrates correct technique timing for spacer Diabetes Diabetes:: No Core Components - Final Visit Session Number:: 13 Hypertension Hypertension Diagnosis:: Hypertension ICD-10 I10 Resting Blood Pressure:: 128/70 [employer] Hypertension Guidelines Peak Exercise Blood Pressure:: 138/70 Outcomes/Goals: Able to verbalize/achieve optimal blood pressure <130/80 and Incorporates diet changes & exercise for blood pressure control by DC Tobacco - Final Tobacco Program Goals Tobacco Use: Non-smoker Exacerbation Mgmt & Airway Clearance Bronchial Hygiene Plan: Yes: Pt demonstrates correctly for effective cough, Yes: Pt demo correct for CPT, Yes: Pt demo correct for device, Yes: Pt demo correct for NS nasal spray, Yes: Pt demo correct for sputum management, Yes: Pt demo correct for improved hydration, Yes: Pt demo correct for hand hygiene, Yes: Pt demo correct for evalute sputum, Yes: Pt demo correct for verbalize when to call MD and Yes: Pt demo correct for cleaning of respiratory equipment Medication Medication reassessment: Yes: Pt demonstrates correct technique timing for MDI, Yes: Pt demonstrates correct technique timing for DPI, Yes: Pt demonstrates correct technique timing for NEB and Yes: Pt demonstrates correct technique timing for spacer Diabetes Diabetes:: No Patient Health Questionnaire PHQ-9 Screening 60-Day Re-eval Assessment: 1. Little interest or pleasure in doing things: Not at all 2. Feeling down, depressed, or hopeless: Not at all 3. Trouble falling or staying asleep, or sleeping too much: Not at all 4. Feeling tired or having little energy: Several days 5. Poor appetite or overeating: Not at all 6. Feeling bad about yourself -- or that you are a failure or have let yourself or your family down: Not at all 7. Trouble concentrating on things, such as reading the newspaper or watching television: Not at all 8. Moving or speaking so slowly that other people could have noticed. Or the opposite - being so fidgety or restless that you have been moving around a lot more than usual: Not at all 9. Thoughts that you would be better off , or of hurting yourself in some way: Not at all How difficult have these problems made it for you to do your work, take care of things at home, or get along with other people?: Somewhat difficult Total Score: 1 Knowledge Questionaire (BCKQ) Information Information: [place] COPD Knowledge Questionnaire (BCKQ) This questionnaire is designed to find out what you know about your lung problem. It should be completed without help form anyone else. This usually takes between 10 and 20 minutes. Your answers will help us to find out what information you need to help you to understand and manage your lung condition. [employer]d [employer] which you think is the correct answer. Self-Efficacy 6-Item Scale 60-Day Re-eval Assessment: We would like to know how confident you are in doing certain activities. Please select your confidence level for: Fatigue Select Number: 3 Physical Discomfort or Pain Select Number: 3 Emotional Distress Select Number: 3 Other Symptoms or Health Problems Select Number: 8 Different Tasks and Activities Select Number: 5 Medication Select Number: 5 Total Score:: 4 Nutrition Survey Nutrition Survey Instructions Scoring Instructions
[2024-07-27 07:17] VITALS: BP 128/70; BP 138/70; O2SAT 90; BMI 29.7
== END 2024-07-28 23:59 ==
LOC: PR 10:00
PROVIDERS: PCP Family Medicine Geriatric Medicine; Referring Provider Family Medicine Geriatric Medicine; Visit Provider Family Medicine Geriatric Medicine
DX: J42 Unspecified chronic bronchitis (principal); J45.909 Unspecified asthma, uncomplicated
CPT/HCPCS: 97150; G0239

== ENCOUNTER → 2024-08-14 | Outpatient (CLI) | payer MEDICARE, SELFPAY ==
[2024-07-27 07:17] VITALS: BMI 29.7
== END | disposition home or self-care (01) ==
LOC: POLAB3 14:08
PROVIDERS: PCP Family Medicine Geriatric Medicine; Visit Provider Family Medicine Geriatric Medicine
DX: R68.83 Chills (without fever) (principal)
CPT/HCPCS: 87631

== ENCOUNTER 2024-08-28 10:00 | Outpatient (RCR) | payer MEDICARE, SELFPAY ==
[2024-07-27 07:17] VITALS: BMI 29.7
[2024-07-29 01:01] VITALS: BP 128/70; BP 138/70; BMI 29.7
--- NOTE | 2024-08-17 14:22 | PCM.PR.TP ---
Exercise - Initial Assessment Visit Session Number:: 19 Physician Prescribed Exercise Modalities: Treadmill, [employer] Airdyne AD-7 and [employer] Stepper Current METSs:: 3.6 Target HR:: 112 (84-112) Current RPD:: 2 Maximum Exercise HR:: 84-112 Resting Blood Pressure: 126/68 Maximum Exercise Blood Pressure: 140/70 Minimum SpO2 with exercise: 90 EKG Type: NSR to ST Nutrition/Wt Mgmt - Initial Visit Session Number:: 19 Weight Management Admit Height:: 5 ft 8 in Admit Weight:: 197 lb 8 oz Admit BMI:: 30.0 Nutrition/Wt Mgmt - 30-Day Visit Date of Eval: 08/17/24 Session Number:: 19 Weight Management Height: 5 ft 8 in Weight:: 197 lb 8 oz BMI: 30.0 Nutrition/Wt Mgmt - 60-Day Visit Session Number:: 19 Weight Management Height: 5 ft 8 in Weight:: 197 lb 8 oz BMI: 30.0 Weight Goals Progress:: Progressing (Pt has attended nutrition class and understands the benefits of a healthy diet. Will continue to encourage.) Nutrition/Wt Mgmt - 90-Day Visit Date of Eval: 08/17/24 Session Number:: 19 Weight Management Height: 5 ft 8 in Weight:: 197 lb 8 oz BMI: 30.0 Weight Goals Progress:: Progressing (Pt has attended nutrition class and understands the benefits of a healthy diet. Will continue to encourage.) Nutrition/Wt Mgmt - Final Visit Session Number:: 19 Weight Management Height: 5 ft 8 in Weight:: 197 lb 8 oz BMI: 30.0 Psychosocial - Initial Assess Visit Session Number:: 19 Problems/Goals History of Emotional Disorders: Anxious and Depression Psychosocial Goals: 1. Patient is free from overwhelming symtoms of depression (or anxiety, 2. Identifies personal stressors & states the strategies for managing, 3. Identifies activities to decrease isolation and/or symptoms of, 4. Improved psychosocial coping skills., 5. Verbalizes coping strategies., 6. Adequate treatment of depression. and 7. Improved Q.O.L. Psychosocial Test Tool Used:: Pulmonary QOL and PHQ-9 Questionnaire Referral to Behavioral Health PS - Interventions: Yes: Attend Stress Management Classes Intervention/Plan: See List Interventions/Plan:: Assess stressors,coping strategies & signs of derpression on admission, Instruct/assist pt to develop coping & personal stress Mgt strategies, Refer to Behavioral Health if appropriate, Refer to Physician if appropriate, Instruct patient to recognize signs & symptoms of depression and Instruct patient to recog Comments:: Pt to attend stress management and relaxation class. Psychosocial - 30-Day Visit Date of Eval: 08/17/24 Session Number:: 19 Problems/Goals History of Emotional Disorders: Anxious and Depression Psychosocial Goals: 1. Patient is free from overwhelming symtoms of depression (or anxiety, 2. Identifies personal stressors & states the strategies for managing, 3. Identifies activities to decrease isolation and/or symptoms of, 4. Improved psychosocial coping skills., 5. Verbalizes coping strategies., 6. Adequate treatment of depression. and 7. Improved Q.O.L. Psychosocial Test Tool Used:: Pulmonary QOL and PHQ-9 Questionnaire Referral to Behavioral Health PS - Interventions: Yes: Attend Stress Management Classes Plan Interventions/Plan:: Assess stressors,coping strategies & signs of derpression on admission, Instruct/assist pt to develop coping & personal stress Mgt strategies, Refer to Behavioral Health if appropriate, Refer to Physician if appropriate, Instruct patient to recognize signs & symptoms of depression and Instruct patient to recog Comments:: Pt to attend stress management and relaxation class. Psychosocial - 60-Day Visit Session Number:: 19 Problems/Goals History of Emotional Disorders: Anxious and Depression Psychosocial Goals: 1. Patient is free from overwhelming symtoms of depression (or anxiety, 2. Identifies personal stressors & states the strategies for managing, 3. Identifies activities to decrease isolation and/or symptoms of, 4. Improved psychosocial coping skills., 5. Verbalizes coping strategies., 6. Adequate treatment of depression. and 7. Improved Q.O.L. Psychosocial Test Tool Used:: Pulmonary QOL and PHQ-9 Questionnaire Referral to Behavioral Health PS - Interventions: Yes: Attend Stress Management Classes Plan Interventions/Plan:: Assess stressors,coping strategies & signs of derpression on admission, Instruct/assist pt to develop coping & personal stress Mgt strategies, Refer to Behavioral Health if appropriate, Refer to Physician if appropriate, Instruct patient to recognize signs & symptoms of depression and Instruct patient to recog Comments:: Pt to attend stress management and relaxation class. Psychosocial - 90-Day Visit Date of Eval: 08/17/24 Session Number:: 19 Problems/Goals History of Emotional Disorders: Anxious and Depression Psychosocial Goals: 1. Patient is free from overwhelming symtoms of depression (or anxiety, 2. Identifies personal stressors & states the strategies for managing, 3. Identifies activities to decrease isolation and/or symptoms of, 4. Improved psychosocial coping skills., 5. Verbalizes coping strategies., 6. Adequate treatment of depression. and 7. Improved Q.O.L. Psychosocial Test Tool Used:: Pulmonary QOL and PHQ-9 Questionnaire Referral to Behavioral Health PS - Interventions: Yes: Attend Stress Management Classes Plan Interventions/Plan:: Assess stressors,coping strategies & signs of derpression on admission, Instruct/assist pt to develop coping & personal stress Mgt strategies, Refer to Behavioral Health if appropriate, Refer to Physician if appropriate, Instruct patient to recognize signs & symptoms of depression and Instruct patient to recog Comments:: Pt to attend stress management and relaxation class. Psychosocial - Final Assess Visit Session Number:: 19 Problems/Goals History of Emotional Disorders: Anxious and Depression Psychosocial Goals: 1. Patient is free from overwhelming symtoms of depression (or anxiety, 2. Identifies personal stressors & states the strategies for managing, 3. Identifies activities to decrease isolation and/or symptoms of, 4. Improved psychosocial coping skills., 5. Verbalizes coping strategies., 6. Adequate treatment of depression. and 7. Improved Q.O.L. Psychosocial Test Tool Used:: Pulmonary QOL and PHQ-9 Questionnaire Referral to Behavioral Health PS - Interventions: Yes: Attend Stress Management Classes Plan Interventions/Plan:: Assess stressors,coping strategies & signs of derpression on admission, Instruct/assist pt to develop coping & personal stress Mgt strategies, Refer to Behavioral Health if appropriate, Refer to Physician if appropriate, Instruct patient to recognize signs & symptoms of depression and Instruct patient to recog Comments:: Pt to attend stress management and relaxation class. Oxygen & Oxygen Titration Init Visit Session Number:: 19 Initial Assessment SpO2:: 90 Oxygen & Oxygen Titration 30D Visit Date of Eval: 08/17/24 Session Number:: 19 Reassessment SpO2:: 90 Oxygen & Oxygen Titration 60D Visit Date of Eval: 08/17/24 Session Number:: 19 Reassessment SpO2:: 90 Oxygen & Oxygen Titration 90D Visit Date of Eval: 08/17/24 Session Number:: 19 Reassessment Oxygen & Oxygen Titration 90 days: None SpO2:: 90 Oxygen & Oxygen Titration JUANITA Visit Date of Eval: 08/17/24 Session Number:: 19 Reassessment SpO2:: 90 Core Components - Initial Visit Session Number:: 19 Hypertension Hypertension Diagnosis:: Hypertension ICD-10 I10 BP: 126/68 [place] [employer] Hypertension Guidelines Blood Pressure: 140/70 Outcomes/Goals: Able to verbalize/achieve optimal blood pressure <130/80 and Incorporates diet changes & exercise for blood pressure control by DC Tobacco - Initial Assessment Tobacco Program Goals Tobacco Use: Non-smoker Diabetes Diabetes:: No Core Components - 30 DAYS Visit Date of Eval: 08/17/24 Session Number:: 19 Hypertension Hypertension Diagnosis:: Hypertension ICD-10 I10 Resting Blood Pressure:: 126/68 [place] [employer] Hypertension Guidelines Peak Exercise Blood Pressure:: 140/70 Outcomes/Goals: Able to verbalize/achieve optimal blood pressure <130/80 and Incorporates diet changes & exercise for blood pressure control by DC Interventions/plan: Instruct on optimal blood pressure, hypertension & medications and Instruct on effects of sodium, alcohol, stress, exercise &hypertension 30 day Reassessments:: Progressing Reassessment Notes & Comments:: BP's are within AHA normal limits on most days. Tobacco - 30-Day Tobacco Program Goals Tobacco Use: Non-smoker Exacerbation Mgmt & Airway Clearance Bronchial Hygiene Plan: Yes: Pt demonstrates correctly for effective cough, Yes: Pt demo correct for CPT, Yes: Pt demo correct for device, Yes: Pt demo correct for NS nasal spray, Yes: Pt demo correct for sputum management, Yes: Pt demo correct for improved hydration, Yes: Pt demo correct for hand hygiene, Yes: Pt demo correct for evalute sputum, Yes: Pt demo correct for verbalize when to call MD and Yes: Pt demo correct for cleaning of respiratory equipment Medication Medication reassessment: Yes: Pt demonstrates correct technique timing for MDI, Yes: Pt demonstrates correct technique timing for DPI, Yes: Pt demonstrates correct technique timing for NEB and Yes: Pt demonstrates correct technique timing for spacer Diabetes Diabetes:: No Core Components - 60 DAYS Visit Session Number:: 19 Hypertension Hypertension Diagnosis:: Hypertension ICD-10 I10 Resting Blood Pressure:: 126/68 [place] [employer] Hypertension Guidelines Peak Exercise Blood Pressure:: 140/70 Outcomes/Goals: Able to verbalize/achieve optimal blood pressure <130/80 and Incorporates diet changes & exercise for blood pressure control by DC Interventions/plan: Instruct on optimal blood pressure, hypertension & medications and Instruct on effects of sodium, alcohol, stress, exercise &hypertension 60 day Reassessments:: Progressing Reassessment Notes & Comments:: BP's are within AHA normal limits on most days. Tobacco - 60-Day Tobacco Program Goals Tobacco Use: Non-smoker Exacerbation Mgmt & Airway Clearance Bronchial Hygiene Plan: Yes: Pt demonstrates correctly for effective cough, Yes: Pt demo correct for CPT, Yes: Pt demo correct for device, Yes: Pt demo correct for NS nasal spray, Yes: Pt demo correct for sputum management, Yes: Pt demo correct for improved hydration, Yes: Pt demo correct for hand hygiene, Yes: Pt demo correct for evalute sputum, Yes: Pt demo correct for verbalize when to call MD and Yes: Pt demo correct for cleaning of respiratory equipment Medication Medication reassessment: Yes: Pt demonstrates correct technique timing for MDI, Yes: Pt demonstrates correct technique timing for DPI, Yes: Pt demonstrates correct technique timing for NEB and Yes: Pt demonstrates correct technique timing for spacer Diabetes Diabetes:: No Core Components - 90 DAYS Visit Date of Eval: 08/17/24 Session Number:: 19 Hypertension Hypertension Diagnosis:: Hypertension ICD-10 I10 Resting Blood Pressure:: 126/68 [place] [employer] Hypertension Guidelines Peak Exercise Blood Pressure:: 140/70 Outcomes/Goals: Able to verbalize/achieve optimal blood pressure <130/80 and Incorporates diet changes & exercise for blood pressure control by DC Interventions/plan: Instruct on optimal blood pressure, hypertension & medications and Instruct on effects of sodium, alcohol, stress, exercise &hypertension 90 day Reassessments:: Progressing Reassessment Notes & Comments:: BP's are within AHA normal limits on most days. Tobacco - 90-Day Tobacco Program Goals Tobacco Use: Non-smoker Exacerbation Mgmt & Airway Clearance Bronchial Hygiene Plan: Yes: Pt demonstrates correctly for effective cough, Yes: Pt demo correct for CPT, Yes: Pt demo correct for device, Yes: Pt demo correct for NS nasal spray, Yes: Pt demo correct for sputum management, Yes: Pt demo correct for improved hydration, Yes: Pt demo correct for hand hygiene, Yes: Pt demo correct for evalute sputum, Yes: Pt demo correct for verbalize when to call MD and Yes: Pt demo correct for cleaning of respiratory equipment Medication Medication list reviewed:: Yes Medication reassessment: Yes: Pt demonstrates correct technique timing for MDI, Yes: Pt demonstrates correct technique timing for DPI, Yes: Pt demonstrates correct technique timing for NEB and Yes: Pt demonstrates correct technique timing for spacer Diabetes Diabetes:: No Core Components - Final Visit Session Number:: 19 Hypertension Hypertension Diagnosis:: Hypertension ICD-10 I10 Resting Blood Pressure:: 126/68 [place] [employer] Hypertension Guidelines Peak Exercise Blood Pressure:: 140/70 Outcomes/Goals: Able to verbalize/achieve optimal blood pressure <130/80 and Incorporates diet changes & exercise for blood pressure control by DC Tobacco - Final Tobacco Program Goals Tobacco Use: Non-smoker Exacerbation Mgmt & Airway Clearance Bronchial Hygiene Plan: Yes: Pt demonstrates correctly for effective cough, Yes: Pt demo correct for CPT, Yes: Pt demo correct for device, Yes: Pt demo correct for NS nasal spray, Yes: Pt demo correct for sputum management, Yes: Pt demo correct for improved hydration, Yes: Pt demo correct for hand hygiene, Yes: Pt demo correct for evalute sputum, Yes: Pt demo correct for verbalize when to call MD and Yes: Pt demo correct for cleaning of respiratory equipment Medication Medication reassessment: Yes: Pt demonstrates correct technique timing for MDI, Yes: Pt demonstrates correct technique timing for DPI, Yes: Pt demonstrates correct technique timing for NEB and Yes: Pt demonstrates correct technique timing for spacer Diabetes Diabetes:: No Patient Health Questionnaire PHQ-9 Screening 90-Day Re-eval Assessment: 1. Little interest or pleasure in doing things: Not at all 2. Feeling down, depressed, or hopeless: Not at all 3. Trouble falling or staying asleep, or sleeping too much: Not at all 4. Feeling tired or having little energy: Several days 5. Poor appetite or overeating: Not at all 6. Feeling bad about yourself -- or that you are a failure or have let yourself or your family down: Not at all 7. Trouble concentrating on things, such as reading the newspaper or watching television: Not at all 8. Moving or speaking so slowly that other people could have noticed. Or the opposite - being so fidgety or restless that you have been moving around a lot more than usual: Not at all 9. Thoughts that you would be better off , or of hurting yourself in some way: Not at all How difficult have these problems made it for you to do your work, take care of things at home, or get along with other people?: Somewhat difficult Total Score: 1 Knowledge Questionaire (BCKQ) Information Information: [place] COPD Knowledge Questionnaire (BCKQ) This questionnaire is designed to find out what you know about your lung problem. It should be completed without help form anyone else. This usually takes between 10 and 20 minutes. Your answers will help us to find out what information you need to help you to understand and manage your lung condition. Jd the [facility] [place] which you think is the correct answer. Self-Efficacy 6-Item Scale 90-Day Re-eval Assessment: We would like to know how confident you are in doing certain activities. Please select your confidence level for: Fatigue Select Number: 3 Physical Discomfort or Pain Select Number: 3 Emotional Distress Select Number: 3 Other Symptoms or Health Problems Select Number: 8 Different Tasks and Activities Select Number: 5 Medication Select Number: 5 Total Score:: 4 Nutrition Survey Nutrition Survey Instructions Scoring Instructions
[2024-08-17 14:28] VITALS: BP 126/68; O2SAT 90
[2024-08-17 14:36] VITALS: BP 126/68; BP 140/70
== END 2024-08-28 23:59 ==
LOC: PR 10:00
PROVIDERS: PCP Family Medicine Geriatric Medicine; Referring Provider Family Medicine Geriatric Medicine; Visit Provider Family Medicine Geriatric Medicine
DX: J42 Unspecified chronic bronchitis (principal); J45.909 Unspecified asthma, uncomplicated
CPT/HCPCS: 97150; G0239

== ENCOUNTER 2024-09-18 10:00 | Outpatient (RCR) | payer MEDICARE, SELFPAY ==
[2024-08-29 00:18] VITALS: BP 126/68; BP 140/70
--- NOTE | 2024-09-15 08:02 | PCM.PR.TP ---
Exercise - Initial Assessment Visit Session Number:: 29 Physician Prescribed Exercise Modalities: Treadmill, Schwinn Airdyne AD-7 and SciFit Stepper Current METSs:: 3.6 Resting Blood Pressure: 124/68 Maximum Exercise Blood Pressure: 130/60 Minimum SpO2 with exercise: 90 EKG Type: NSR to ST Nutrition/Wt Mgmt - Initial Visit Session Number:: 29 Weight Management Admit Height:: 5 ft 8 in Admit Weight:: 196 lb 8 oz Admit BMI:: 29.8 Nutrition/Wt Mgmt - 30-Day Visit Date of Eval: 09/15/24 Session Number:: 29 Weight Management Height: 5 ft 8 in Weight:: 196 lb 8 oz BMI: 29.8 Nutrition/Wt Mgmt - 60-Day Visit Session Number:: 29 Weight Management Height: 5 ft 8 in Weight:: 196 lb 8 oz BMI: 29.8 Nutrition/Wt Mgmt - 90-Day Visit Session Number:: 29 Weight Management Height: 5 ft 8 in Weight:: 196 lb 8 oz BMI: 29.8 Nutrition/Wt Mgmt - Final Visit Date of Eval: 09/15/24 Session Number:: 29 Weight Management Height: 5 ft 8 in Weight:: 196 lb 8 oz BMI: 29.8 Weight Goals Progress:: Goal met (Pt is at a healthy weight. Pt has attended nutrition class.) Psychosocial - Initial Assess Visit Session Number:: 29 Problems/Goals History of Emotional Disorders: Anxious and Depression Psychosocial Goals: 1. Patient is free from overwhelming symtoms of depression (or anxiety, 2. Identifies personal stressors & states the strategies for managing, 3. Identifies activities to decrease isolation and/or symptoms of, 4. Improved psychosocial coping skills., 5. Verbalizes coping strategies. and 7. Improved Q.O.L. Psychosocial Test Tool Used:: Pulmonary QOL and PHQ-9 Questionnaire PHQ-9 Score: 1 Referral to Behavioral Health PS - Interventions: Yes: Attend Stress Management Classes Intervention/Plan: See List Interventions/Plan:: Assess stressors,coping strategies & signs of derpression on admission, Instruct/assist pt to develop coping & personal stress Mgt strategies, Refer to Behavioral Health if appropriate, Refer to Physician if appropriate, Instruct patient to recognize signs & symptoms of depression and Instruct patient to recog Comments:: Pt is doing great. Pt has attended stress management class. Psychosocial - 30-Day Visit Date of Eval: 09/15/24 Session Number:: 29 Problems/Goals History of Emotional Disorders: Anxious and Depression Psychosocial Goals: 1. Patient is free from overwhelming symtoms of depression (or anxiety, 2. Identifies personal stressors & states the strategies for managing, 3. Identifies activities to decrease isolation and/or symptoms of, 4. Improved psychosocial coping skills., 5. Verbalizes coping strategies. and 7. Improved Q.O.L. Psychosocial Test Tool Used:: Pulmonary QOL and PHQ-9 Questionnaire PHQ-9 Score: 1 Referral to Behavioral Health PS - Interventions: Yes: Attend Stress Management Classes Plan Interventions/Plan:: Assess stressors,coping strategies & signs of derpression on admission, Instruct/assist pt to develop coping & personal stress Mgt strategies, Refer to Behavioral Health if appropriate, Refer to Physician if appropriate, Instruct patient to recognize signs & symptoms of depression and Instruct patient to recog Comments:: Pt is doing great. Pt has attended stress management class. Psychosocial - 60-Day Visit Session Number:: 29 Problems/Goals History of Emotional Disorders: Anxious and Depression Psychosocial Goals: 1. Patient is free from overwhelming symtoms of depression (or anxiety, 2. Identifies personal stressors & states the strategies for managing, 3. Identifies activities to decrease isolation and/or symptoms of, 4. Improved psychosocial coping skills., 5. Verbalizes coping strategies. and 7. Improved Q.O.L. Psychosocial Test Tool Used:: Pulmonary QOL and PHQ-9 Questionnaire PHQ-9 Score: 1 Referral to Behavioral Health PS - Interventions: Yes: Attend Stress Management Classes Plan Interventions/Plan:: Assess stressors,coping strategies & signs of derpression on admission, Instruct/assist pt to develop coping & personal stress Mgt strategies, Refer to Behavioral Health if appropriate, Refer to Physician if appropriate, Instruct patient to recognize signs & symptoms of depression and Instruct patient to recog Comments:: Pt is doing great. Pt has attended stress management class. Psychosocial - 90-Day Visit Session Number:: 29 Problems/Goals History of Emotional Disorders: Anxious and Depression Psychosocial Goals: 1. Patient is free from overwhelming symtoms of depression (or anxiety, 2. Identifies personal stressors & states the strategies for managing, 3. Identifies activities to decrease isolation and/or symptoms of, 4. Improved psychosocial coping skills., 5. Verbalizes coping strategies. and 7. Improved Q.O.L. Psychosocial Test Tool Used:: Pulmonary QOL and PHQ-9 Questionnaire PHQ-9 Score: 1 Referral to Behavioral Health PS - Interventions: Yes: Attend Stress Management Classes Plan Interventions/Plan:: Assess stressors,coping strategies & signs of derpression on admission, Instruct/assist pt to develop coping & personal stress Mgt strategies, Refer to Behavioral Health if appropriate, Refer to Physician if appropriate, Instruct patient to recognize signs & symptoms of depression and Instruct patient to recog Comments:: Pt is doing great. Pt has attended stress management class. Psychosocial - Final Assess Visit Date of Eval: 09/15/24 Session Number:: 29 Problems/Goals History of Emotional Disorders: Anxious and Depression Psychosocial Goals: 1. Patient is free from overwhelming symtoms of depression (or anxiety, 2. Identifies personal stressors & states the strategies for managing, 3. Identifies activities to decrease isolation and/or symptoms of, 4. Improved psychosocial coping skills., 5. Verbalizes coping strategies. and 7. Improved Q.O.L. Psychosocial Test Tool Used:: Pulmonary QOL and PHQ-9 Questionnaire PHQ-9 Score: 1 Referral to Behavioral Health PS - Interventions: Yes: Attend Stress Management Classes Plan Interventions/Plan:: Assess stressors,coping strategies & signs of derpression on admission, Instruct/assist pt to develop coping & personal stress Mgt strategies, Refer to Behavioral Health if appropriate, Refer to Physician if appropriate, Instruct patient to recognize signs & symptoms of depression and Instruct patient to recog Comments:: Pt is doing great. Pt has attended stress management class. Oxygen & Oxygen Titration Init Visit Session Number:: 29 Initial Assessment SpO2:: 90 Oxygen & Oxygen Titration 30D Visit Date of Eval: 09/15/24 Session Number:: 29 Reassessment SpO2:: 90 Oxygen & Oxygen Titration 60D Visit Date of Eval: 09/15/24 Session Number:: 29 Reassessment SpO2:: 90 Oxygen & Oxygen Titration 90D Visit Date of Eval: 09/15/24 Session Number:: 29 Reassessment SpO2:: 90 Oxygen & Oxygen Titration JUANITA Visit Date of Eval: 09/15/24 Session Number:: 29 Reassessment Oxygen & Oxygen Titration Final: None SpO2:: 90 Core Components - Initial Visit Session Number:: 29 Hypertension Hypertension Diagnosis:: Hypertension ICD-10 I10 BP: 124/68 [place] [employer] Hypertension Guidelines Blood Pressure: 130/60 Outcomes/Goals: Able to verbalize/achieve optimal blood pressure <130/80 and Incorporates diet changes & exercise for blood pressure control by DC Tobacco - Initial Assessment Tobacco Program Goals Tobacco Use: Non-smoker Diabetes Diabetes:: No Core Components - 30 DAYS Visit Date of Eval: 09/15/24 Session Number:: 29 Hypertension Hypertension Diagnosis:: Hypertension ICD-10 I10 Resting Blood Pressure:: 124/68 [place] [employer] Hypertension Guidelines Peak Exercise Blood Pressure:: 130/60 Outcomes/Goals: Able to verbalize/achieve optimal blood pressure <130/80 and Incorporates diet changes & exercise for blood pressure control by DC Tobacco - 30-Day Tobacco Program Goals Tobacco Use: Non-smoker Exacerbation Mgmt & Airway Clearance Bronchial Hygiene Plan: Yes: Pt demonstrates correctly for effective cough, Yes: Pt demo correct for CPT, Yes: Pt demo correct for device, Yes: Pt demo correct for NS nasal spray, Yes: Pt demo correct for sputum management, Yes: Pt demo correct for improved hydration, Yes: Pt demo correct for hand hygiene, Yes: Pt demo correct for evalute sputum, Yes: Pt demo correct for verbalize when to call MD and Yes: Pt demo correct for cleaning of respiratory equipment Medication Medication reassessment: Yes: Pt demonstrates correct technique timing for MDI, Yes: Pt demonstrates correct technique timing for DPI, Yes: Pt demonstrates correct technique timing for NEB and Yes: Pt demonstrates correct technique timing for spacer Diabetes Diabetes:: No Core Components - 60 DAYS Visit Session Number:: 29 Hypertension Hypertension Diagnosis:: Hypertension ICD-10 I10 Resting Blood Pressure:: 124/68 [place] [employer] Hypertension Guidelines Peak Exercise Blood Pressure:: 130/60 Outcomes/Goals: Able to verbalize/achieve optimal blood pressure <130/80 and Incorporates diet changes & exercise for blood pressure control by DC Tobacco - 60-Day Tobacco Program Goals Tobacco Use: Non-smoker Exacerbation Mgmt & Airway Clearance Bronchial Hygiene Plan: Yes: Pt demonstrates correctly for effective cough, Yes: Pt demo correct for CPT, Yes: Pt demo correct for device, Yes: Pt demo correct for NS nasal spray, Yes: Pt demo correct for sputum management, Yes: Pt demo correct for improved hydration, Yes: Pt demo correct for hand hygiene, Yes: Pt demo correct for evalute sputum, Yes: Pt demo correct for verbalize when to call MD and Yes: Pt demo correct for cleaning of respiratory equipment Medication Medication reassessment: Yes: Pt demonstrates correct technique timing for MDI, Yes: Pt demonstrates correct technique timing for DPI, Yes: Pt demonstrates correct technique timing for NEB and Yes: Pt demonstrates correct technique timing for spacer Diabetes Diabetes:: No Core Components - 90 DAYS Visit Session Number:: 29 Hypertension Hypertension Diagnosis:: Hypertension ICD-10 I10 Resting Blood Pressure:: 124/68 [place] [employer] Hypertension Guidelines Peak Exercise Blood Pressure:: 130/60 Outcomes/Goals: Able to verbalize/achieve optimal blood pressure <130/80 and Incorporates diet changes & exercise for blood pressure control by DC Tobacco - 90-Day Tobacco Program Goals Tobacco Use: Non-smoker Exacerbation Mgmt & Airway Clearance Bronchial Hygiene Plan: Yes: Pt demonstrates correctly for effective cough, Yes: Pt demo correct for CPT, Yes: Pt demo correct for device, Yes: Pt demo correct for NS nasal spray, Yes: Pt demo correct for sputum management, Yes: Pt demo correct for improved hydration, Yes: Pt demo correct for hand hygiene, Yes: Pt demo correct for evalute sputum, Yes: Pt demo correct for verbalize when to call MD and Yes: Pt demo correct for cleaning of respiratory equipment Medication Medication reassessment: Yes: Pt demonstrates correct technique timing for MDI, Yes: Pt demonstrates correct technique timing for DPI, Yes: Pt demonstrates correct technique timing for NEB and Yes: Pt demonstrates correct technique timing for spacer Diabetes Diabetes:: No Core Components - Final Visit Date of Eval: 09/15/24 Session Number:: 29 Hypertension Hypertension Diagnosis:: Hypertension ICD-10 I10 Resting Blood Pressure:: 124/68 [place] [employer] Hypertension Guidelines Peak Exercise Blood Pressure:: 130/60 Outcomes/Goals: Able to verbalize/achieve optimal blood pressure <130/80 and Incorporates diet changes & exercise for blood pressure control by DC Tobacco - Final Tobacco Program Goals Tobacco Use: Non-smoker Exacerbation Mgmt & Airway Clearance Final Assessment: Demonstrates knowledge of O2 Rx at rest and Demonstrates knowledge of O2 Rx with exercise Bronchial Hygiene Plan: Yes: Pt demonstrates correctly for effective cough, Yes: Pt demo correct for CPT, Yes: Pt demo correct for device, Yes: Pt demo correct for NS nasal spray, Yes: Pt demo correct for sputum management, Yes: Pt demo correct for improved hydration, Yes: Pt demo correct for hand hygiene, Yes: Pt demo correct for evalute sputum, Yes: Pt demo correct for verbalize when to call MD and Yes: Pt demo correct for cleaning of respiratory equipment Medication Medication list reviewed:: Yes Taking medications 100% of the time:: Met Medication reassessment: Yes: Pt demonstrates correct technique timing for MDI, Yes: Pt demonstrates correct technique timing for DPI, Yes: Pt demonstrates correct technique timing for NEB and Yes: Pt demonstrates correct technique timing for spacer Diabetes Diabetes:: No Patient Health Questionnaire PHQ-9 Screening Discharge Assessment: 1. Little interest or pleasure in doing things: Not at all 2. Feeling down, depressed, or hopeless: Not at all 3. Trouble falling or staying asleep, or sleeping too much: Not at all 4. Feeling tired or having little energy: Several days 5. Poor appetite or overeating: Not at all 6. Feeling bad about yourself -- or that you are a failure or have let yourself or your family down: Not at all 7. Trouble concentrating on things, such as reading the newspaper or watching television: Not at all 8. Moving or speaking so slowly that other people could have noticed. Or the opposite - being so fidgety or restless that you have been moving around a lot more than usual: Not at all 9. Thoughts that you would be better off , or of hurting yourself in some way: Not at all How difficult have these problems made it for you to do your work, take care of things at home, or get along with other people?: Somewhat difficult Total Score: 1 Knowledge Questionaire (BCKQ) Information Information: [place] COPD Knowledge Questionnaire (BCKQ) This questionnaire is designed to find out what you know about your lung problem. It should be completed without help form anyone else. This usually takes between 10 and 20 minutes. Your answers will help us to find out what information you need to help you to understand and manage your lung condition. Jd the [place] which you think is the correct answer. Self-Efficacy 6-Item Scale Discharge Assessment: We would like to know how confident you are in doing certain activities. Please select your confidence level for: Fatigue Select Number: 3 Physical Discomfort or Pain Select Number: 3 Emotional Distress Select Number: 3 Other Symptoms or Health Problems Select Number: 8 Different Tasks and Activities Select Number: 5 Medication Select Number: 5 Total Score:: 4 Nutrition Survey Nutrition Survey Instructions Scoring Instructions
[2024-09-15 08:14] VITALS: BP 124/68; BP 130/60; O2SAT 90; BMI 29.8
== END 2024-09-27 23:59 ==
LOC: PR 10:00
PROVIDERS: PCP Family Medicine Geriatric Medicine; Referring Provider Family Medicine Geriatric Medicine; Visit Provider Family Medicine Geriatric Medicine
DX: J42 Unspecified chronic bronchitis (principal); J45.909 Unspecified asthma, uncomplicated
CPT/HCPCS: 97150; G0239

== ENCOUNTER → 2024-09-19 | Outpatient (CLI) | payer MEDICARE, SELFPAY ==
[2024-09-15 08:14] VITALS: BMI 29.8
[2024-09-19 11:47] LABS: Absolute Lymphocyte Count 2.79 X10^3/uL (0.83-4.51); Absolute Neutrophil Count 4.3 X10^3/uL (2.0-7.7); Basophil# 0.02 X10^3/uL; Basophil% 0.3 % (0-1); Eosinophil# 0.03 X10^3/uL; Eosinophils% 0.4 % (0-5); Hematocrit 44.4 % (40-54); Hemoglobin 14.9 g/dL (13.0-16.5); Lymphocyte # 2.79 X10^3/ul (0.83-4.51); Lymphocyte % 37.3 % (19-41); Mean Corp Hgb Conc 33.6 g/dL (32-36); Mean Corpuscular Volume 92.3 fL (80-94); Mean Platelet Vol. 9.4 fl (6.2-12.0); Monocyte# 0.31 X10^3/uL; Monocyte% 4.1 % (0-10); NRBC Flagged by Analyzer 0 % (0-5); Neutrophil # 4.31 X10^3/uL (2.7-7.7); Neutrophil % 57.6 % (47-70); Platelet Count 165 K/mm3 (150-450); RBC Distribution Width CV 13.6 % (11.6-14.6); RBC Distribution Width SD 46.5 fl (35.1-43.9); Red Blood Count 4.81 M/mm3 (4.6-6.2); White Blood Count 7.5 K/mm3 (4.4-11.0)
[2024-09-19 12:35] LABS: ALB/GLOB Ratio 1.8 RATIO (0.9-2.4); AST(SGOT) 28 U/L (<=37); Alanine Aminotransfer ALT/SGPT 26 U/L (<=46); Albumin, Serum 4.2 g/dL (3.4-4.8); Alkaline Phosphatase 92 U/L (40-129); Anion Gap 10 (5-15); BUN 19 mg/dL (4-19); BUN/Creat Ratio 19.2 RATIO (10-20); Calcium,Total 9.2 mg/dL (7.6-11.0); Carbon Dioxide 22.7 mmol/L (21.0-32.0); Chloride 106 mmol/L (98-108); EST Glomerular Filtration Rate 76 (>60); Globulin 2.3 g/dL (2.2-4.2); Glucose 87 mg/dL (70-99); PSA,Total - Annual Screen 0.15 ng/mL (0.02-4.00); Potassium 4.7 mmol/L (3.3-5.1); Protein, Total 6.5 g/dL (5.9-8.4); Sodium Level 139 mmol/L (133-145)
== END | disposition home or self-care (01) ==
LOC: LAB 10:57
PROVIDERS: PCP Family Medicine Geriatric Medicine; Referring Provider Family Medicine Geriatric Medicine; Visit Provider Family Medicine Geriatric Medicine
DX: I10 Essential (primary) hypertension (principal); E55.9 Vitamin D deficiency, unspecified; Z12.5 Encounter for screening for malignant neoplasm of prostate
CPT/HCPCS: 36415; 80053; 82306; 84153; 84443; 85025; G0103

== ENCOUNTER 2024-10-13 10:00 | Outpatient (RCR) | payer MEDICARE, SELFPAY ==
[2024-09-15 08:14] VITALS: BMI 29.8
[2024-09-28 00:28] VITALS: BP 124/68; BP 130/60; BMI 29.8
== END 2024-10-28 23:59 ==
LOC: PR 10:00
PROVIDERS: PCP Family Medicine Geriatric Medicine; Referring Provider Family Medicine Geriatric Medicine; Visit Provider Family Medicine Geriatric Medicine
DX: J42 Unspecified chronic bronchitis (principal); J45.909 Unspecified asthma, uncomplicated
CPT/HCPCS: 97150; G0239

== ENCOUNTER 2024-11-25 20:04 | Observation (INO) | payer MEDICARE, SELFPAY ==
[2024-09-15 08:14] VITALS: BMI 29.8
[2024-11-25] VITALS (7 sets, daily range): BP systolic 115–144; BP diastolic 74–92; PULSE 81–91; RESP 13–25; TEMP 36.4–36.8; O2SAT 92–97; BMI 30.7; BMI 30.1
--- NOTE | 2024-11-25 20:13 | CT_ITS ---
EXAM: STROKE BRAIN/HEAD WITHOUT CONT CLINICAL HISTORY: 79 y/o M with NEURO DEFICIT, ACUTE, STROKE SUSPECTED. Dizzy, blurred vision. COMPARISON: CT head 08/15/2023. TECHNIQUE: Routine CT imaging of the head without IV contrast. Additional multiplanar reformats were obtained. Dose reduction techniques were used including intermediate exposure control (AEC),iterative reconstruction technique, and/or mA and/or KV dose adjustments based on patient's size. FINDINGS: The ventricles, sulci and cisterns are normal for patient age. There is no evidence of acute intracranial hemorrhage or herniation. There is no midline shift, mass effect, or extra-axial collection. Mild scattered supratentorial white matter hypodensities. The cavazos and white matter interfaces are otherwise maintained. Prior ocular lens replacements. The visualized paranasal sinuses and mastoids are unremarkable. No acute calvarial fracture or scalp hematoma. CT/STROKE Brain/Head without Cont IMPRESSION: No acute intracranial finding. Dr. Fam discussed these findings via telephone with Dr. Clifford at 8:31 pm on 11/25/24. Reading Location: [id number]
--- NOTE | 2024-11-25 20:13 | RAD_ITS ---
PROCEDURE: CHEST 1 VIEW (PORTABLE) 11/25/2024 REASON FOR EXAM: DIZZY/STROKE TECHNIQUE: Frontal view of the chest. COMPARISON: CTA chest 02/28/2024, chest radiograph 06/14/2021. FINDINGS: Hardware: None. Heart: The heart size is normal. Lungs: Low lung volumes. No focal consolidation, pleural effusion or pneumothorax. Bones: Degenerative changes are identified within the thoracic spine. RAD/Chest 1 View (Portable) IMPRESSION: No significant change since last exam. Reading Location: [id number]
--- NOTE | 2024-11-25 20:13 | EKG12_ITS ---
Test Reason : NEURO Blood Pressure : */* mmHG Vent. Rate : 86 BPM Atrial Rate : 86 BPM P-R Int : 150 ms QRS Dur : 96 ms QT Int : 372 ms P-R-T Axes : 38 -2 21 degrees QTcB Int : 445 ms Normal sinus rhythm Normal ECG Confirmed by OMID ALFONSO, MEI ([id number]), acquisition editor DARIEL DAVID ([id number]) on 11/28/2024 6:41:57 AM Referred By: Neo Clifford Confirmed By: MEI ANNE MD
--- NOTE | 2024-11-25 20:14 | CT_ITS ---
PROCEDURE: STROKE CTA HEAD AND NECK W/CON 11/25/2024 REASON FOR EXAM: NEURO DEFICIT, ACUTE, STROKE SUSPECTED TECHNIQUE: STROKE CTA HEAD AND NECK W/CON Multiplanar Sagittal and Coronal images were obtained. 3D post processing was performed CONTRAST: Isovue 370 VOLUME: 100 mL One or more dose reduction techniques were used (e.g., Automated exposure control, adjustment of the mA and/or kV according to patient size, use of iterative reconstruction technique). RADIATION DOSE SUMMARY: DLP: 700 mGycm COMPARISON: Same-day noncontrast CT head, CT head 08/15/2023. FINDINGS: See same day CT noncontrast head for discussion of nonvascular findings. CTA neck: Two vessel aortic arch without significant plaque or stenosis. The origins of the bilateral vertebral arteries are widely patent. Minimal calcific plaque of the right cervical carotid artery. No focal stenosis or narrowing by NASCET criteria of the bilateral cervical carotid arteries. CTA head: The bilateral carotid siphons are widely patent. The bilateral anterior, middle and posterior cerebral arteries are widely patent. No aneurysm or AVM. Major venous structures: Unremarkable. Other findings: Cervical and thoracic spondylosis. Small left maxillary sinus retention cyst or polyp. CT/STROKE CTA Head AND Neck W/Con IMPRESSION: No large vessel occlusion, aneurysm or AVM. Reading Location: [id number]
--- NOTE | 2024-11-25 20:23 | EX.ED.DYSGE1 ---
HPI History of Present Illness Chief Complaint: Dizziness Narrative Narrative: Patient is a 79-year-old male past medical history of hypertension, GERD, asthma, depression, hyperlipidemia who presented to the emergency department with a chief complaint of dizziness, changes in vision. Patient states that he was sitting down watching TV when all of a sudden he had blurry vision and then after this he noted that he was very dizzy and things were spinning. He states that nothing like this has happened before and he states that he does have vertigo in the past but states that this feels very different to him. Patient denies any head injuries or trauma denies any blood thinning medications. [facility] Medical History (Updated 11/25/24 @ 21:[address] Neo Clifford DO) Former tobacco use Obesity CKD (chronic kidney disease), stage II Allergic rhinitis Anxiety and depression Constipation Chronic low back pain BPH (benign prostatic hyperplasia) Hyperlipidemia Asthma COVID-19 Hypertension GERD (gastroesophageal reflux disease) Home Medications ?Medication ?Instructions ?Recorded ?Last Taken ?Type polyethylene glycol 3350 17 gram 17 g PO DAILY PRN Constipation 04/19/13 04/19/13 07:00 History oral powder packet lisinopril 5 mg tablet 5 mg PO DAILY 08/28/20 Unknown History tamsulosin 0.4 mg capsule 0.4 mg PO QHS 06/16/21 Unknown History albuterol sulfate 90 mcg/actuation 2 inh inhalation Q6H PRN shortness 05/06/23 Unknown History breath activated powder inhaler of breath mometasone-formoterol HFA 200 2 puff inhalation BID 05/06/23 Unknown History mcg-5 mcg/actuation aerosol inhaler (Dulera) montelukast 10 mg tablet 10 mg PO DAILY 05/06/23 Unknown History nortriptyline 50 mg capsule 50 mg PO BID 06/02/23 Unknown History omeprazole 10 mg capsule,delayed 40 mg PO DAILY 06/02/23 Unknown History release Allergy/AdvReac Type Severity Reaction Status Date / Time No Known Allergies Allergy Verified 11/25/24 20:06 Family History Mother Depression CVA (cerebral vascular accident) Anxiety Hypertension Father Pancreatic cancer Surgical History Hx of cataract extraction Social History (Updated 11/25/24 @ 20:[address] Megan Garcia MD) household members: spouse Smoking Status: Former smoker alcohol intake: never substance use type: does not use ROS ROS ED ROS Narrative Constitutional: Complains of dizziness as noted above denies headache, fever, chills, lightheadedness Eyes: Complains of changes in vision as noted above but states that this is since resolved Cardiovascular: Denies chest pain Respiratory: Denies any wheezing or shortness of breath Abdomen: Denies abdominal pain nausea vomit diarrhea : Denies urinary symptoms Neurological: Denies numbness, wheeze, tingling Musculoskeletal: Denies back pain Skin: Denies any rashes or lesions EXAM Physical Exam Narrative Exam Narrative: General: Patient was lying in bed rest comfortably did not appear to be acute distress Head: Atraumatic, normocephalic Eyes: PERRL bilaterally, EOMI bilateral, no conjunctival injection noted Neck: Soft and supple, trachea midline Cardiovascular: Regular rate and rhythm no murmurs gallops rubs noted Respiratory: Clear to auscultation bilaterally no rales rhonchi or wheezes noted Abdomen: Soft, nondistended, no tenderness to palpation Extremities: Radial pulses +2/4 in the bilateral upper extremities, +5/5 strength noted in the bilateral upper and lower extremities Neurological: Patient was following commands knew that he was at [facility] year is 2024. NIH of 0 GCS 15 patient completed finger-nose testing bilaterally with any difficulty Skin: Warm, dry, intact no rashes or lesions noted Const Vital Signs: 11/25/24 20:06 11/25/24 20:13 11/25/24 20:18 Temperature 97.9 F Temperature Source Oral Pulse Rate 85 86 Respiratory Rate 13 16 Blood Pressure 133/74 H 133/74 H Blood Pressure Mean 93 93 Pulse Ox 93 93 Oxygen Delivery Method Room Air Room Air Room Air 11/25/24 20:28 11/25/24 20:43 11/25/24 21:13 Temperature Temperature Source Pulse Rate 91 90 88 Respiratory Rate 25 H 15 13 Blood Pressure 115/92 H 133/80 H 141/74 H Blood Pressure Mean 99 97 96 Pulse Ox 95 92 97 Oxygen Delivery Method Room Air Room Air Room Air MDM MDM MDM Narrative Medical decision making narrative: Patient is a 79-year-old male who presented to the emergency department the chief complaint of changes in vision which has since resolved and dizziness. On the differential diagnose includes but not limited to intracranial hemorrhage, TIA, ischemic stroke, posterior circulation stroke, electrolyte abnormality, hypoglycemia, peripheral vertigo although his symptoms cannot be recreated here in the emergency department. Patient is not a tenecteplase candidate as his symptoms are improving at this point in time. Patient CBC reviewed showed no evidence leukocytosis white blood count normal at 7.8, hemoglobin stable at 14.2, platelet count was 124. Patient INR normal at 1, PT 13.7. Patient sodium normal 140, potassium normal at 4.4, creatinine normal at 1.15. Patient troponin was 39 delta troponin pending EKG showed sinus rhythm with a rate of 86 bpm. Patient's glucose was noted to be 99. Patient chest x-ray reviewed by myself and by radiology showed no acute cardiopulmonary processes. Patient CT head and brain without contrast showed no acute cranial findings. Patient CTA head and neck showed no large vessel occlusion aneurysm or AVM. Patient was evaluated by teleneurology Dr. Cooley who is recommending admission for further stroke workup. Patient's case will be discussed with hospitalist for admission. Patient was given 325 mg of aspirin. Discussed case with hospitalist Dr. Garcia who accept patient for admission. Patient notified is agreeable with this plan all questions and concerns were answered at bedside Lab Data Labs: Laboratory Results - last 24 hr 11/25/24 11/25/24 19:55 20:11 WBC 7.8 RBC 4.49 L Hgb 14.2 Hct 40.9 MCV 91.1 MCH 31.6 MCHC 34.7 RDW Std Deviation 45.5 H RDW Coeff of Chucho 13.5 Plt Count 124 L MPV 9.5 Immature Gran % (Auto) 0.400 Neut % (Auto) 41.5 L Lymph % (Auto) 52.1 H Warren % (Auto) 5.2 Eos % (Auto) 0.4 Baso % (Auto) 0.4 Absolute Neuts (auto) 3.2 Absolute Lymphs (auto) 4.07 Nucleated RBC % 0 PT 13.7 INR 1.0 APTT 25.8 Sodium 140 Potassium 4.4 Chloride 106 Carbon Dioxide 21.3 Anion Gap 13 BUN 21 H Creatinine 1.15 Estim Creat Clear Calc 56.26 Est GFR (MDRD) Non-Af 64 BUN/Creatinine Ratio 18.3 Glucose 99 Calcium 9.4 Troponin T High Sens 39 H POC Glucose 120 H Radiography Diagnostic Testing: Clinical Impression(s) from Imaging Studies Brain CT 11/25/24 20:13 IMPRESSION: No acute intracranial finding. Dr. Fam discussed these findings via telephone with Dr. Clifford at 8:31 pm on 11/25/24. Reading Location: [facility] Chest X-Ray 11/25/24 20:13 IMPRESSION: No significant change since last exam. Reading Location: [facility] Head/Neck CTA 11/25/24 20:14 IMPRESSION: No large vessel occlusion, aneurysm or AVM. Reading Location: [facility] Discharge Plan Triage Chief Complaint: Dizziness ED Provider: Neo Clifford Dx/Rx/DC Orders Clinical Impression: Dizziness, Hyperlipidemia, Hypertension, Change in vision Prescriptions: No Action Dulera 200-5 mcg/actuation HFA aerosol inhaler 2 puff inhalation BID albuterol sulfate 90 mcg/actuation aerosol powdr breath activated 2 inh inhalation Q6H PRN (Reason: shortness of breath) montelukast 10 mg tablet 10 mg PO DAILY nortriptyline 50 mg capsule 50 mg PO BID polyethylene glycol 3350 17 GM powder in packet 17 g PO DAILY PRN (Reason: Constipation) Patient Comments: constipation lisinopril 5 MG tablet 5 mg PO DAILY omeprazole 10 mg capsule,delayed release(DR/EC) 40 mg PO DAILY tamsulosin 0.4 mg capsule 0.4 mg PO QHS Primary Care Provider: Tre García Chi Referrals: Tre García Chi, MD [Primary Care Provider] - Print Language: Armenian Disposition Disposition: Acute Care Hospital [facility]
--- NOTE | 2024-11-25 20:25 | ED.RN ---
This RN triaging pt for dizziness. Flagged to call stroke alert, notified Dr. Clifford for quick assessment. Darrin agreeable to initiate stroke alert protocol. Pt taken to CT
[2024-11-25 20:31] LABS: Absolute Lymphocyte Count 4.07 X10^3/uL (0.83-4.51); Absolute Neutrophil Count 3.2 X10^3/uL (2.0-7.7); Basophil# 0.03 X10^3/uL; Basophil% 0.4 % (0-1); Eosinophil# 0.03 X10^3/uL; Eosinophils% 0.4 % (0-5); Hematocrit 40.9 % (40-54); Hemoglobin 14.2 g/dL (13.0-16.5); Lymphocyte # 4.07 X10^3/ul (0.83-4.51); Lymphocyte % 52.1 % (19-41); Mean Corp Hgb Conc 34.7 g/dL (32-36); Mean Corpuscular Hgb 31.6 pg (27.0-32.0); Mean Corpuscular Volume 91.1 fL (80-94); Mean Platelet Vol. 9.5 fl (6.2-12.0); Monocyte# 0.41 X10^3/uL; Monocyte% 5.2 % (0-10); NRBC Flagged by Analyzer 0 % (0-5); Neutrophil # 3.24 X10^3/uL (2.7-7.7); Neutrophil % 41.5 % (47-70); Platelet Count 124 K/mm3 (150-450); RBC Distribution Width CV 13.5 % (11.6-14.6); RBC Distribution Width SD 45.5 fl (35.1-43.9); Red Blood Count 4.49 M/mm3 (4.6-6.2); White Blood Count 7.8 K/mm3 (4.4-11.0)
[2024-11-25 20:31] LABS: Bedside Glucose 120 mg/dL (74-106)
[2024-11-25] MEDS: 0.9% Normal Saline (1000mL) 1,000 ML 999 ML IV (20:34)
--- OUTSIDE RECORDS SUMMARY | 2024-11-25 20:35 | XMS RPT_ITS | CCD ---
Author Organization [facility] Care Team Providers Care Ux Design Lead Name Role Phone Jd Solis MD Primary Care Provider Dr. Jd Solis Primary Care Provider Dr. Geovanny Naqvi Attending Provider Jd Solis MD Primary Care Provider [phone] Dr. Tre García Chi Primary Care Provider [phone] Ricky, Dr. Tre Jean Referring Provider Dr. Chacho Mcghee Attending Provider Ricky, Dr. Tre Jean Primary Care Provider [phone] Ricky, Dr. Tre Jean Referring Provider [phone] Dr. Chacho Mcghee Attending Provider Ricky, Tre Jean Primary Care Provider Jd Solis MD Primary Care Provider [phone] GENIE BUSTAMANTE Attending Unavailable BECKY FIERRO Referring Unavailable RICKY, TRE CHI Primary Care Unavailable GENIE BUSTAMANTE Attending Unavailable RICKY, TRE CHI Primary Care Unavailable BECKY FIERRO Referring Unavailable RICKY, TRE CHI Primary Care Unavailable BECKY FIERRO Attending Unavailable RICKY, TRE CHI Primary Care Unavailable RICKY, TRE CHI Primary Care Unavailable Ricky ALFONSO, Dr. Tre Jean Primary Care Provider Dr. Tre García MD, Chi Attending Provider Dr. Tre García MD, Chi Referring Provider [phone] Messi PEDIATRIC DERMATOLOGIST-C, Kimberly Attending Provider Messi PEDIATRIC DERMATOLOGIST-C, Kimberly Other Provider Ricky ALFONSO, Dr. Tre Jean Primary Care Provider [phone] Ricky ALFONSO, Dr. Tre Jean Attending Provider [phone] Ricky ALFONSO, Dr. Tre Jean Referring Provider Ricky ALFONSO, Dr. Tre Jean Primary Care Provider Ricky ALFONSO, Dr. Tre Jean Attending Provider Ricky ALFONSO, Dr. Tre Jean Referring Provider Ricky, Tre Chi Primary Care Unavailable Rene Mcgheeril Attending Unavailable Kamar PEDIATRIC DERMATOLOGIST, Heather Referring Unavailable Ricky, Tre Chi Referring Unavailable Siska Geovanny Consulting Unavailable Ricky, Tre Chi Primary Care Unavailable Harper PEDIATRIC DERMATOLOGIST, Rosario Iyer Attending Unavailabl e Ricky, Tre Chi Primary Care Unavailable Ricky, Tre Chi Referring Unavailable Ricky, Tre Chi Attending Unavailable Ricky, Tre Chi Primary Care Unavailable Kamar PEDIATRIC DERMATOLOGIST, Heather Referring Unavailable Kamar BATES, Heather Attending Unavailable Ricky, Tre Chi Referring Unavailable Ricky, Tre Chi Primary Care Unavailable Ricky, Tre Chi Attending Unavailable Ricky, Tre Chi Primary Care Unavailable Ricky, Tre Chi Referring Unavailable Ricky, Tre Chi Attending Unavailable Ricky, Tre Chi Primary Care Unavailable Ricky, Tre Chi Referring Unavailable Ricky, Tre Chi Attending Unavailable Ricky, Tre Chi Primary Care Unavailable Ricky, Tre Chi Referring Unavailable Ricky, Tre Chi Attending Unavailable Ricky, Tre Chi Referring Unavailable Ricky, Tre Chi Primary Care Unavailable Ricky, Tre Chi Attending Unavailable Ricky, Tre Chi Primary Care Unavailable Ricky, Tre Chi Referring Unavailable Kimberly Swenson NP Attending Unavailable Ricky, Tre Chi Primary Care Unavailable Ricky, Tre Chi Referring Unavailable Ricky, Tre Chi Attending Unavailable Ricky, Tre Chi Attending Unavailable Ricky, Tre Chi Referring Unavailable Ricky, Tre Chi Primary Care Unavailable Ricky, Tre Chi Referring Unavailable Ricky, Tre Chi Primary Care Unavailable Ricky, Tre Chi Attending Unavailable Ricky, Tre Chi Attending Unavailable Ricky, Tre Chi Primary Care Unavailable Ricky, Tre Chi Referring Unavailable Ricky, Tre Chi Primary Care Unavailable Harper PEDIATRIC DERMATOLOGIST, Rosario Iyer Attending Unavailabl e Ricky, Tre Chi Attending Unavailable Ricky, Tre Chi Referring Unavailable Ricky, Tre Chi Primary Care Unavailable Ricky, Tre Chi Primary Care Unavailable Ricky, Tre Chi Referring Unavailable Ricky, Tre Chi Attending Unavailable Ricky, Tre Chi Primary Care Unavailable Ricky, Tre Chi Attending Unavailable Ricky, Tre Chi Primary Care Unavailable Ricky, Tre Chi Attending Unavailable Ricky, Tre Chi Attending Unavailable Ricky, Tre Chi Primary Care Unavailable Ricky, Tre Chi Attending Unavailable Ricky, Tre Chi Primary Care Unavailable Ricky, Tre Chi Primary Care Unavailable Harper PEDIATRIC DERMATOLOGIST, Rosario E Referring Unavailabl e Harper PEDIATRIC DERMATOLOGIST, Rosario E Attending Unavailabl e Harper PEDIATRIC DERMATOLOGIST, Rosario E Consulting Unavailabl e Jg Bustamante Attending Unavailable Ricky, Tre Chi Primary Care Unavailable Harper PEDIATRIC DERMATOLOGIST, Rosario E Referring Unavailabl e Harper PEDIATRIC DERMATOLOGIST, Rosario E Attending Unavailabl e Harper PEDIATRIC DERMATOLOGIST, Rosario E Consulting Unavailabl e Allergies Allergy Classification Reported Allergen(s) Allergy Type Date of Onset Reaction(s) Facility (20 sources) environmental [Other] Propensity to adverse reactions 5 Intolerance [facility] (1 source) OTHER; Translations: [OTHER] Propensity to adverse reactions (disorder) 5 [facility] Medications Current Medications Medication Drug Class(es) Dates Sig (Normalized) Sig (Original) 200 actuat albuterol 0.09 mg/actuat dry powder inhaler (20 sources) beta2-Adrenergic Agonist Start: 05-06-2023 Albuterol Sulfate 90 mcg/actuation aerosol powdr breath activated Active 2 NMA INHALATION EVERY 6 HOURS as needed for shortness of breath May 06, 2023 1:00am Start: 05-06-2023 Albuterol Sulf ate Active 2 INH INHALATION EVERY 6 HOURS May 06, 2023 1:00am Start: 09-18-2022 End: 11-09-2023 take 2 puff(s) by inhalation every four hours as needed for wheezing albuterol HFA (PROVENTIL HFA, VENTOLIN HFA) 90 mcg/actuation inhaler Inhale 2 Puffs as instructed every 4 hours as needed for wheezing/shortness of breath. 3 Each 3 11/09/2023 Active [...] Comment on above: Take 1 tablet by [facility] twice daily for 5 days. benzonatate 100 mg oral capsule (12 sources) Non-narcotic Antitussive Start: 2 End: 2 [...] 06/21/2021 08/27/2021 Discontinued (Course of therapy completed) Start: 06-14-2021 End: 06-02-2023 take 1 capsule by mouth three times daily as needed for cough Benzonatate 200 mg capsule Discontinued 200 mg PO THREE TIMES A DAY as needed for cough June 14, 2021 1:00am June 02, 2023 12:26pm Comment on above: Take 1-2 capsules ti d prn, no more than 6 in 24 hours. Take 1 capsule by mo [facility] three times daily as needed for cough for up to 10 days. 120 actuat budesonide 0.16 mg/actuat / formoterol fumarate 0.0048 mg/actuat / glycopyrrolate 0.009 mg/actuat metered dose inhaler (1 source) Corticosteroid, beta2-Adrenergic Agonist Start: 03-21-20 take 2 puff(s) by inhalation twice daily BREZTRI AEROSPHERE 160-9-4.8 mcg/actuation HFA aerosol inhaler Inhale 2 Puffs as instructed two times a day. 03/21/2024 Active doxycycline monohydrate 100 mg oral tablet (5 sources) Tetracycline-clas s Drug Start: 05-03-20 End: 05-08-20 take 1 tablet by mouth twice daily [...] for 10 days. Take 1 tablet by [facility] twice daily for 5 days. lisinopril 5 mg oral tablet (20 sources) Angiotensin Converting Enzyme Inhibitor Start: 08-28-2020 End: 05-03-2023 take 1 tablet by mouth once daily Lisinopril 5 MG tablet Active 5 mg PO DAILY August 28, 2020 12:00am Comment on above: Take 1 tablet by radha once daily. take 1 tablet daily melatonin 10 mg oral capsule (1 source) melatonin 10 mg cap Take by mouth daily at bedtime. Active Mometasone-Formotero l (Dulera) 200-5 mcg/actuation HFA aerosol inhaler (8 sources) Start: 05-06-2023 Mometasone-Formoter ol (Dulera) 200-5 mcg/actuation HFA aerosol inhaler Active 2 NMA INHALATION TWICE A DAY May 06, 2023 1:00am Start: 05-06-2023 take 1 puff(s) by in halation twice daily Mometasone-Formoterol (Dulera) 200-5 mcg/actuation HFA aerosol inhaler Active 2 PUFF INHALATION TWICE A DAY May 06, 2023 1:00am Start: 05-06-2023 take 1 puff(s) by in halation twice daily Mometasone-Formoterol (Dulera) 200-5 mcg/actuation HFA aerosol inhaler Active 2 PUFF INHALATION TWICE A DAY May 06, 2023 12:00am montelukast 10 mg oral tablet (20 sources) Leukotriene Receptor Antagonist Start: 05-13-2022 End: 09-08-2023 take 1 tablet by mouth once daily Montelukast 10 mg tablet Active 10 mg PO DAILY May 06, 2023 1:00am Comment on above: Take 1 tablet by [facility] daily at bedtime. nortriptyline 50 mg oral capsule (20 sources) Tricyclic Antidepressant Start: 08-27-2021 End: 09-08-2023 take 1 capsule by mouth twice daily Nortriptyline 50 mg capsule Active 50 mg PO TWICE A DAY June 02, 2023 1:00am Start: 07-30-2021 End: 08-27-2021 take 1 capsule by mouth once daily at bedtime nortriptyline (PAMELOR) 75 mg capsule Take 1 capsule by mouth daily at bedtime. 30 capsule 0 07/30/2021 08/27/2021 Discontinued (Course of therapy completed) Comment on above: Take 1 capsule by mo [facility] twice daily. Take 1 capsule by mo [facility] daily at bedtime. omeprazole 10 mg delayed release oral capsule (20 sources) Proton Pump Inhibitor Start: 06-02-2023 take 4 capsules by mouth once daily Omeprazole 10 mg capsule,delayed release(DR/EC) Active 40 mg PO DAILY June 02, 2023 12:24pm Start: 06-02-2023 take 40 mg by mouth once daily Omeprazole Active 40 MG PO DAILY June 02, 2023 12:24pm Start: 05-03-2023 take 1 capsule by mo [facility] once daily omeprazole (PRILOSEC) 40 mg capsule Indications: Gastroesophageal reflux disease, unspecified whether esophagitis present Take 1 capsule by mouth once daily 90 capsule 05/03/2023 Active Start: 01-21-2023 take 1 capsule by mo [facility] once daily omeprazole (PRILOSEC) 40 mg capsule Indications: Gastroesophageal reflux disease, unspecified whether esophagitis present Take 1 capsule by mouth once daily. 30 capsule 3 01/21/2023 Active Start: 04-28-2021 End: 01-21-2023 take 1 capsule by mouth once daily before breakfast omeprazole (PRILOSEC) 20 mg capsule Take 1 capsule by mouth daily before breakfast. 1/2 hr before meal. 90 capsule 3 04/28/2021 03/19/2022 Discontinued Start: 08-28-2020 End: 06-02-2023 take 1 capsule by mouth once daily Omeprazole 10 MG capsule Discontinued 10 mg PO DAILY August 28, 2020 12:00am June 02, 2023 12:26pm Comment on above: Take 1 capsule by mo ut daily before breakfast. 1/2 hr before meal. TAKE 1 CAPSULE DAILY BEFORE BREAKFAST (ONE-HALF HOUR BEFORE MEAL). Take 1 capsule by mo ut once daily. Take 1 capsule by mo ut once daily perflutren lipid microspheres 1.3 mL in NaCl (PF) 0.9% 10 mL injection (DEFINITY) (17 sources) Start: End: 4 perflutren lipid microspheres 1.3 mL in NaCl (PF) 0.9% 10 mL injection (DEFINITY) polyethylene glycol 3350 29413 mg powder for oral solution (20 sources) Osmotic Laxative Start: 0 take 1 dose by mouth twice daily polyethylene glycol 3350 (MIRALAX, GLYCOLAX) 17 gram packet Indications: Chronic constipation Take 1 Packet by mouth twice daily. 180 Packet 3 01/25/2020 Active Start: 04-19-2013 take 17 g by mouth o nce daily as needed for constipation Polyethylene Glycol 3350 17 GM powder in packet Active 17 g PO DAILY as needed for Constipation April 19, 2013 1:00am Comment on above: Take 1 Packet by [facility] twice daily. predniSONE 10 mg oral tablet (5 sources) Start: 08-19-2022 End: 08-31-2022 predniSONE (DELTASONE) 10 mg tablet Indications: Rib [...] Comment on above: Take 2 tablets by mo [facility] once daily for 5 days. [facility] [...] sources) alpha-Adrenergic Rory Start: 04-28-2021 End: 03-19-2022 take 1 capsule by mouth at bedtime Tamsulosin 0.4 mg capsule Active 0.4 mg PO AT BEDTIME June 16, 2021 1:00am Comment on above: Take 1 capsule by [facility] daily at bedtime. TAKE 1 CAPSULE DAILY AT BEDTIME Completed/Discontinued Medications Medication Drug Class(es) Dates Sig (Normalized) Sig (Original) acetaminophen 325 mg / oxyCODONE hydrochloride 5 mg oral tablet (10 sources) Opioid Agonist Start: 04-19-2013 End: 04-19-2013 Oxycodone-Acetamino phen 1 TABLET tablet Discontinued 1 - 2 {tbl} PO EVERY 6 HOURS NEEDED as needed for Pain April 19, 2013 1:00am April 19, 2013 11:50pm Start: 04-19-2013 End: 04-19-2013 take 1 tablet by mouth every six hours as needed Oxycodone-Acetaminophen Discontinued 1 - 2 TABLET PO EVERY 6 HOURS NEEDED April 19, 2013 1:00am April 19, 2013 11:50pm cephalexin 500 mg oral capsule (4 sources) Cephalosporin Antibacterial Start: 10-13-2023 End: 01-03-2024 take 1 capsule by mouth every six hours Cephalexin 500 mg capsule Discontinued 500 mg PO EVERY 6 HOURS October 13, 2023 12:00am January 03, 2024 2:15pm 120 actuat fluticasone propionate 0.23 mg/actuat / [...] as in structed two times a day. 60 actuat formoterol fumarate 0.005 mg/actuat / mometasone furoate 0.2 mg/actuat metered dose inhaler (20 sources) Corticosteroid, beta2-Adrenergic Agonist Start: 07-02-2023 End: 05-26-2024 take 2 puff(s) by inhalation twice daily mometasone-formot angie (DULERA) 200-5 mcg/actuation inhaler Inhale 2 Puffs as instructed two times a day. 1 Each 07/02/2023 05/26/2024 Discontinued Start: 05-03-2023 take 2 puff(s) by in [...] day. maprotiline hydrochloride 50 mg oral tablet (20 sources) Start: End: take 1 tablet by mouth twice daily Maprotiline 50 mg tablet Discontinued 50 mg PO TWICE A DAY June 02, 2023 12:25pm October 13, 2023 9:47am Start: 05-06-2023 End: 06-02-2023 take 100 mg by mouth once daily Maprotiline Discontinu ed 100 MG PO DAILY May 06, 2023 11:00am June 02, 2023 12:26pm Start: 05-06-2023 End: 06-02-2023 take 100 mg by mouth once daily Maprotiline Discontinu ed 100 MG PO DAILY May 06, 2023 10:00am June 02, 2023 11:26am Start: 07-30-2021 End: 08-27-2021 take 0.5 tablet by mouth once daily at bedtime maprotiline (LUDIOMIL) 50 mg tablet Take 0.5 tablets by mouth daily at bedtime. 60 tablet 0 07/30/2021 08/27/2021 Discontinued (Course of therapy completed) Start: 04-19-2013 End: 06-02-2023 take 1 tablet by mouth once daily Maprotiline 50 mg tablet Discontinued 100 mg PO DAILY May 06, 2023 11:00am June 02, 2023 12:26pm Start: 04-19-2013 End: 05-06-2023 take 100 mg by mouth once daily Maprotiline Discontinu ed 100 MG PO DAILY April 19, 2013 1:00am May 06, 2023 11:02am Start: 04-19-2013 End: 05-06-2023 take 100 mg by mouth once daily Maprotiline Discontinu ed 100 MG PO DAILY April 19, 2013 12:00am May 06, 2023 10:02am Start: 04-19-2013 take 100 mg by mouth once nestor y Maprotiline Active 100 MG PO DAILY April 19, 2013 12:00am Start: 04-19-2013 take 100 mg by mouth once nestor y Maprotiline Active 100 MG PO DAILY April 19, 2013 1:00am Comment on above: Take 0.5 tablets by mouth daily at bedtime. meclizine hydrochloride 25 mg chewable tablet (6 sources) Antiemetic Start: End: take 1 tablet by mouth three times daily as needed for dizziness Meclizine (Antivert) 25 mg tablet,chewable Discontinued 25 mg PO THREE TIMES A DAY as needed for dizziness August 15, 2023 1:04pm January 03, 2024 2:16pm 30 actuat mometasone furoate 0.11 mg/actuat dry powder inhaler (16 sources) Corticosteroid Start: End: mometasone (ASMANEX TWISTHALER) 110 mcg/ actuation (30) twisthaler USE 1 INHALATION DAILY INSTRUCTED (EXPIRES 45 DAYS) 3 Each 3 05/26/2021 03/13/2022 Discontinued Comment on above: USE 1 INHALATION OFELIA LY INSTRUCTED (EXPIRES 45 DAYS) ondansetron 4 mg disintegrating oral tablet (6 sources) Serotonin-3 Receptor Antagonist Start: End: take 1 tablet by mouth every eight hours as needed for nausea Ondansetron 4 mg tablet,disintegrati ng Discontinued 4 mg PO EVERY 8 HOURS NEEDED as needed for Nausea August 15, 2023 12:00am January 03, 2024 2:16pm Problems Active Problems Problem Classification Problem Date Documented Da te Episodic/Chronic Adjustment disorders (20 sources) Adjustment disorder with depressed mood; Translations: [Adjustment disorder with depressed mood] Onset: 9 08-28-2008 Chronic Anxiety disorders (20 sources) Anxiety; Translations: [Anxiety disorder, unspecified] Onset: 5 01-15-2015 Chronic Asthma (20 sources) Cough variant asthma; Translations: [Cough variant asthma] Onset: 2 Chronic Cardiac dysrhythmias (1 source) Paroxysmal atrial fibrillation; Translations: [Paroxysmal atrial fibrillation] Onset: 4 Chronic Cardiac dysrhythmias (5 sources) Tachycardia; Translations: [Tachycardia, unspecified] 02-23-2024 Episodic Chronic obstructive pulmonary disease and bronchiectasis (1 source) Unspecified chronic bronchitis; Translations: [Unspecified chronic bronchitis] Onset: 5 Chronic Chronic obstructive pulmonary disease and bronchiectasis (1 source) Bronchitis; Translations: [Bronchitis, not specified as acute or chronic] Episodic Coagulation and hemorrhagic disorders (3 sources) Platelet disorder; 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 Conditions associated with dizziness or vertigo (16 sources) Dizziness; Translations: [Dizziness and giddiness] 08-29-2020 Episodic Diabetes mellitus without complication (1 source) Increased glucose level; Translations: [Other abnormal glucose] Episodic Disorders of lipid metabolism (8 sources) Hyperlipidemia; Translations: [Hyperlipidemia, unspecified] 05-06-2023 Chronic Esophageal disorders (10 sources) Gastroesophageal reflux disease; Translations: [Gastro-esophageal reflux disease without esophagitis] 01-21-2023 Chronic Essential hypertension (20 sources) Benign essential hypertension; Translations: [Essential (primary) hypertension] Onset: 5 03-05-2021 Chronic Genitourinary symptoms and ill-defined conditions (8 sources) Lower urinary tract symptoms; Translations: [Unspecified symptoms and signs involving the genitourinary system] 05-06-2023 Episodic Hyperplasia of prostate (20 sources) Benign prostatic hyperplasia; Translations: [Benign prostatic hyperplasia with lower urinary tract symptoms] Onset: 8 06-25-2015 Chronic Immunizations and screening for infectious disease (1 source) Patient encounter status; Translations: [Encounter for screening for other viral diseases] Episodic Malaise and fatigue (2 sources) Fatigue; Translations: [Other fatigue] Episodic Mood disorders (20 sources) Recurrent major depression in full remission; Translations: [Major depressive disorder, recurrent, in full remission] Onset: 2 Chronic Other congenital anomalies (2 sources) Congenital eventration of diaphragm; 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 Other congenital anomalies (1 source) Diaphragmatic eventration; 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 Other connective tissue disease (1 source) Musculoskeletal pain; Translations: [Myalgia, other site] Episodic Other gastrointestinal disorders (10 sources) Chronic idiopathic constipation; Translations: [Chronic idiopathic constipation] 04-19-2013 Chronic Other gastrointestinal disorders (8 sources) Constipation; Translations: [Constipation, unspecified] 05-06-2023 Episodic Other infections; including parasitic (5 sources) Personal history of other infectious and parasitic diseases; Translations: [History of COVID-19] Episodic Other injuries and conditions due to external causes (6 sources) Open wound; Translations: [Other injury of unspecified body region, initial encounter] 10-13-2023 Episodic Other lower respiratory disease (14 sources) Cough; Translations: [Acute cough] Episodic Other lower respiratory disease (20 sources) Dyspnea; Translations: [Shortness of breath] Onset: 7 Resolved: 7 Episodic Other lower respiratory disease (1 source) Rib pain; Translations: [Pleurodynia] Episodic Other lower respiratory disease (1 source) Dyspnea on exertion; Translations: [Other forms of dyspnea] 03-01-2023 Episodic Other lower respiratory disease (4 sources) Shortness of breath; Translations: [Shortness of breath] 06-02-2023 Episodic Other lower respiratory disease (2 sources) Cough; Translations: [Acute cough] 05-11-2022 Episodic Other lower respiratory disease (1 source) Disorder of lung; Translations: [Other disorders of lung] 05-26-2024 Episodic Other upper respiratory disease (1 source) [...] personal history presenting hazards to health] Episodic Residual codes; unclassified (1 source) Chills (without fever); Translations: [Chills (without fever)] Onset: Episodic Spondylosis; intervertebral disc disorders; other back problems (20 sources) Lumbar discogenic pain; Translations: [Other intervertebral disc displacement, lumbar region] Onset: 1 06-05-2010 Chronic Spondylosis; intervertebral disc disorders; other back problems (8 sources) Chronic low back pain; Translations: [Chronic low back pain] 05-06-2023 Episodic Unclassified (1 source) Acute cough; Translations: [Acute cough] Onset: Viral infection (12 sources) Viral disease; Translations: [Viral infection, unspecified] Episodic Past or Other Problems Problem Classification Problem Date Documented Da te Episodic/Chronic Abdominal pain (11 sources) Generalized abdominal pain; Translations: [Generalized abdominal pain] Onset: 03-19-2006 Resolved: 06-12-2014 06-12-2014 Episodic Allergic reactions (20 sources) Eczema; Translations: [Dermatitis, unspecified] Onset: 06-09-2011 06-09-2011 Episodic Hemorrhoids (20 sources) Internal hemorrhoids; Translations: [Other hemorrhoids] Onset: 01-11-2018 01-11-2018 Episodic Neoplasms of unspecified nature or uncertain behavior (11 sources) Neoplasm of uncertain behavior of skin; Translations: [Neoplasm of uncertain behavior of skin] Onset: 01-23-2009 Resolved: 06-12-2014 06-12-2014 Episodic Open wounds of extremities (20 sources) Tear of skin; Translations: [Laceration without foreign body of unspecified forearm, initial encounter] Onset: 04-01-2024 01-04-2024 Episodic Other connective tissue disease (11 sources) Achilles tendinitis; Translations: [Achilles tendinitis, unspecified leg] Onset: 10-04-2012 Resolved: 04-17-2015 04-17-2015 Episodic Other non-epithelial cancer of skin (20 sources) History of malignant neoplasm of skin; Translations: [Personal history of other malignant neoplasm of skin] Onset: 03-25-2009 Resolved: 06-12-2014 07-16-2009 Episodic Other upper respiratory disease (8 sources) Vocal cord dysfunction; Translations: [Other diseases of vocal cords] Onset: 2016 2016 Episodic Pulmonary heart disease (1 source) Other pulmonary embolism without acute cor pulmonale; Translations: [Other pulmonary embolism without acute cor pulmonale] Onset: 04-03-2024 Episodic Skin and subcutaneous tissue infections (2 sources) Cellulitis of left upper limb; Translations: [Cellulitis of right upper limb] Onset: 01-18-2024 Episodic Results Test Name Value Interpretation Reference Range Facility Absolute lymphocyte countOrd ered By: Tre García on 09-19-2024 Lymphocytes Auto (Unsp spec) [#/Vol] 2.79 10*3/uL 0.83-4.51 [facility] Absolute neutrophil countOrd ered By: Tre García on 09-19-2024 Neutrophils (Bld) [#/Vol] 4.3 10*3/uL 2.0-7.7 [facility] Anion gap in Serum or Plasma Ordered By: Tre García on 09-19-2024 Anion gap [Moles/Vol] 10 mmol/L 5-15 [facility] Automated lymphocyte count a s percentage of total leukocytesOrdered By: Tre García on 09-19-2024 Lymphocytes/100 WBC Auto (Unsp spec) 37.3 % 19- [facility] BUN/creatinine [facility]Ordered By: [facility]24 Urea nitrogen/Creatinine [Mass ratio] 19.2 mg/mg 10- [facility] Basophil percentageOrdered B y: Tre García on 09-19-2024 Basophils/100 WBC (Bld) 0.3 % 0-1 [facility] Bilirubin, totalOrdered By: Tre García on 09-19-2024 Bilirubin [Mass/Vol] 0.60 mg/dL 0.00-1.30 [facility] CBC W/Diff, Automatedon 08-30 Absolute Lymph 2.79 X10 3/uL Normal 0.83-4.51 [facility] Comment on above: Performed By: #### L 100.0100, L500.4050, L501.9520, L506.1001, L501.9910 #### [facility] [address] [place], [address] Absolute Neut 4.3 X10 3/uL Normal 2.0-7.7 [facility] Comment on above: Performed By: #### L 100.0100, L500.4050, L501.9520, L506.1001, L501.9910 #### [facility] [address] [place], [address] Basophils/100 WBC (Bld) 0.3 % Normal 0-1 [facility] Comment on above: Performed By: #### L 100.0100, L500.4050, L501.9520, L506.1001, L501.9910 #### [facility] [address] [place], [address] Eosinophils/100 WBC (Bld) 0.4 % Normal 0-5 [facility] Comment on above: Performed By: #### L 100.0100, L500.4050, L501.9520, L506.1001, L501.9910 #### [facility] [address] [place], [address] Erythrocyte distribution width (RBC) [Ratio] 13.6 % Normal 11.6-14.6 [facility] Comment on above: Performed By: #### L 100.0100, L500.4050, L501.9520, L506.1001, L501.9910 #### [facility] [address] [place], [address] Hematocrit (Bld) [Volume fraction] 44.4 % Normal 40-54 [facility] Comment on above: Performed By: #### L 100.0100, L500.4050, L501.9520, L506.1001, L501.9910 #### [facility] [address] [place], [address] Hemoglobin (Bld) [Mass/Vol] 14.9 g/dL Normal 13.0-16.5 [facility] Comment on above: Performed By: #### L 100.0100, L500.4050, L501.9520, L506.1001, L501.9910 #### [facility] [address] [place], [address] IG% 0.300 Normal 0.0-0.9 [facility] Comment on above: Result Comment: IG% - Immature Granulocytes (promyelocytes, myelocytes and metamyelocytes) > 1% indicates that a LEFT SHIFT is Present. Performed By: #### L 100.0100, L500.4050, L501.9520, L506.1001, L501.9910 #### [facility] [address] [place], [address] Lymphocytes/100 WBC (Bld) 37.3 % Normal 19-41 [facility] Comment on above: Performed By: #### L 100.0100, L500.4050, L501.9520, L506.1001, L501.9910 #### [facility] [address] [place], [address] MCH (RBC) [Entitic mass] 31.0 pg Normal 27.0-32.0 [facility] Comment on above: Performed By: #### L 100.0100, L500.4050, L501.9520, L506.1001, L501.9910 #### [facility] [address] [place], [address] MCHC (RBC) [Mass/Vol] 33.6 g/dL Normal 32-36 [facility] Comment on above: Performed By: #### L 100.0100, L500.4050, L501.9520, L506.1001, L501.9910 #### [facility] [address] [place], [address] MCV (RBC) [Entitic vol] 92.3 fL Normal 80-94 [facility] Comment on above: Performed By: #### L 100.0100, L500.4050, L501.9520, L506.1001, L501.9910 #### [facility] [address] [place], [address] Monocytes/100 WBC (Bld) 4.1 % Normal 0-10 [facility] Comment on above: Performed By: #### L 100.0100, L500.4050, L501.9520, L506.1001, L501.9910 #### [facility] [address] [place], [address] Neutrophils/100 WBC (Bld) 57.6 % Normal 47-70 [facility] Comment on above: Performed By: #### L 100.0100, L500.4050, L501.9520, L506.1001, L501.9910 #### [facility] [address] [place], [address] Nucleated RBC (Bld) [#/Vol] 0 10*3/uL Normal 0-5 [facility] Comment on above: Performed By: #### L 100.0100, L500.4050, L501.9520, L506.1001, L501.9910 #### [facility] [address] [place], [address] Platelet mean volume (Bld) [Entitic vol] 9.4 fL Normal 6.2-12.0 [facility] Comment on above: Performed By: #### L 100.0100, L500.4050, L501.9520, L506.1001, L501.9910 #### [facility] [address] [place], [address] Platelets (Bld) [#/Vol] 165 10*3/uL Normal 150-450 [facility] Comment on above: Performed By: #### L 100.0100, L500.4050, L501.9520, L506.1001, L501.9910 #### [facility] [address] [place], [address] RBC (Bld) [#/Vol] 4.81 10*6/uL Normal 4.6-6.2 [facility] Comment on above: Performed By: #### L 100.0100, L500.4050, L501.9520, L506.1001, L501.9910 #### [facility] [address] [place], [address] RDW SD 46.5 fl High 35.1-43.9 [facility] Comment on above: Performed By: #### L 100.0100, L500.4050, L501.9520, L506.1001, L501.9910 #### [facility] [address] [place], [address] WBC (Bld) [#/Vol] 7.5 10*3/uL Normal 4.4-11.0 [facility] Comment on above: Performed By: #### L 100.0100, L500.4050, L501.9520, L506.1001, L501.9910 #### [facility] [address] [place], [address] Carbon dioxide, total [Moles /volume] in Central venous bloodOrdered By: Tre García on 09-19-2024 CO2 [Moles/Vol] 22.7 mmol/L 21.0-32.0 [facility] Chloride assayOrdered By: Nito García on 09-19-2024 Chloride [Moles/Vol] 106 mmol/L 98-108 [facility] Comprehensive Metabolic Prof ilon 09-19-2024 Albumin [Mass/Vol] 4.2 g/dL Normal 3.4-4.8 [facility] Comment on above: Performed By: #### L 100.0100, L500.4050, L501.9520, L506.1001, L501.9910 #### [facility] [address] [place], [address] Albumin/Globulin [Mass ratio] 1.8 {ratio} Normal 0.9-2.4 [facility] Comment on above: Performed By: #### L 100.0100, L500.4050, L501.9520, L506.1001, L501.9910 #### [facility] [address] [place], [address] ALK PHOS 92 U/L Normal 40-129 [facility] Comment on above: Performed By: #### L 100.0100, L500.4050, L501.9520, L506.1001, L501.9910 #### [facility] [address] [place], [address] ALT [Catalytic activity/Vol] 26 U/L Normal <=46 [facility] Comment on above: Performed By: #### L 100.0100, L500.4050, L501.9520, L506.1001, L501.9910 #### [facility] [address] [place], [address] AST [Catalytic activity/Vol] 28 U/L Normal <=37 [facility] Comment on above: Performed By: #### L 100.0100, L500.4050, L501.9520, L506.1001, L501.9910 #### [facility] [address] [place], [address] Bilirubin [Mass/Vol] 0.60 mg/dL Normal 0.00-1.30 [facility] Comment on above: Performed By: #### L 100.0100, L500.4050, L501.9520, L506.1001, L501.9910 #### [facility] [address] [place], [address] BUN/CRE 19.2 RATIO Normal 10-20 [facility] Comment on above: Performed By: #### L 100.0100, L500.4050, L501.9520, L506.1001, L501.9910 #### [facility] [address] [place], [address] Calcium [Mass/Vol] 9.2 mg/dL Normal 7.6-11.0 [facility] Comment on above: Performed By: #### L 100.0100, L500.4050, L501.9520, L506.1001, L501.9910 #### [facility] [address] [place], [address] Chloride [Moles/Vol] 106 mmol/L Normal 98-108 [facility] Comment on above: Performed By: #### L 100.0100, L500.4050, L501.9520, L506.1001, L501.9910 #### [facility] [address] [place], [address] CO2 [Moles/Vol] 22.7 mmol/L Normal 21.0-32.0 [facility] Comment on above: Performed By: #### L 100.0100, L500.4050, L501.9520, L506.1001, L501.9910 #### [facility] [address] [place], [address] Creatinine [Mass/Vol] 1.00 mg/dL Normal 0.70-1.20 [facility] Comment on above: Performed By: #### L 100.0100, L500.4050, L501.9520, L506.1001, L501.9910 #### [facility] [address] [place], [address] GAP 10 Normal 5-15 [facility] Comment on above: Performed By: #### L 100.0100, L500.4050, L501.9520, L506.1001, L501.9910 #### [facility] [address] [place], [address] GFR/1.73 sq M.predicted among non-blacks MDRD (S/P/Bld) [Vol rate/Area] 76 mL/min/{1.73_m2} Normal >60 [facility] Comment on above: Result Comment: mL/m in/1.73m2 CKD-EPI Creatinine Equation (2020) Performed By: #### L 100.0100, L500.4050, L501.9520, L506.1001, L501.9910 #### [facility] [address] [place], [address] Globulin (S) [Mass/Vol] 2.3 g/dL Normal 2.2-4.2 [facility] Comment on above: Performed By: #### L 100.0100, L500.4050, L501.9520, L506.1001, L501.9910 #### [facility] [address] [place], [address] Glucose [Mass/Vol] 87 mg/dL Normal 70-99 [facility] Comment on above: Performed By: #### L 100.0100, L500.4050, L501.9520, L506.1001, L501.9910 #### [facility] [address] [place], [address] Potassium [Moles/Vol] 4.7 mmol/L Normal 3.3-5.1 [facility] Comment on above: Performed By: #### L 100.0100, L500.4050, L501.9520, L506.1001, L501.9910 #### [facility] [address] [place], [address] Sodium [Moles/Vol] 139 mmol/L Normal 133-145 [facility] Comment on above: Performed By: #### L 100.0100, L500.4050, L501.9520, L506.1001, L501.9910 #### [facility] [address] [place], [address] T PROT 6.5 g/dL Normal 5.9-8.4 [facility] Comment on above: Performed By: #### L 100.0100, L500.4050, L501.9520, L506.1001, L501.9910 #### [facility] [address] [place], [address] Urea nitrogen [Mass/Vol] 19 mg/dL Normal 4-19 [facility] Comment on above: Performed By: #### L 100.0100, L500.4050, L501.9520, L506.1001, L501.9910 #### [facility] [address] [place], [address] Eosinophil percentageOrdered By: Tre García 09-19-2024 Eosinophils/100 WBC (Bld) 0.4 % 0-5 [facility] Erythrocyte distribution wid th (RBC) [Ratio]Ordered By: Tre Avilez09-19-2024 Erythrocyte distribution width (RBC) [Entitic vol] 46.5 fL High 35.1-43.9 [facility] Erythrocyte distribution wid th ratioOrdered By: Tre García 09-19-2024 Erythrocyte distribution width (RBC) [Ratio] 13.6 % 11.6-14.6 [facility] Erythrocyte distribution wid th standard deviationOrdered By: Tre García 09-19-2024 Erythrocyte distribution width (RBC) [Ratio] 46.5 fl High 35.1-43.9 [facility] GFR/1.73 sq M.predicted toñito g non-blacks MDRD (S/P/Bld) [Vol rate/Area]Ordered By: Tre García 09-19-2024 Estimated GFR (MDRD) Non-Af Amer 76 >60 [facility] Comment on above: mL/min/1.73m2 CKD-EP I Creatinine Equation (2020) Glomerular filtration rate ( GFR) estimation/1.73 sq m using serum, plasma, or whole bOrdered By: Tre García 09-19-2024 GFR/1.73 sq M.predicted among non-blacks MDRD (S/P/Bld) [Vol rate/Area] 76 mL/min/{1.73_m2} >60 [facility] Comment on above: mL/min/1.73m2 CKD-EP I Creatinine Equation (2020) Hematocrit Auto (Bld) [Volum e fraction]Ordered By: Tre García 09-19-2024 Hematocrit (Bld) [Volume fraction] 44.4 % 40-54 [facility] Hemoglobin measurementOrdere d By: Tre García 09-19-2024 Hemoglobin (Bld) [Mass/Vol] 14.9 g/dL 13.0-16.5 [facility] Immature granulocytes/100 WB C Auto (Bld)Ordered By: Tre García on 09-19-2024 Immature granulocytes/100 WBC (Bld) 0.300 % 0.0-0.9 [facility] Comment on above: IG% - Immature Granu locytes (promyelocytes, myelocytes and metamyelocytes) > 1% indicates that a LEFT SHIFT is Present. Laboratory - Chemistry and C hemistry - challengeOrdered By: Tre García on 09-19-2024 AST [Catalytic activity/Vol] 28 U/L <38 [facility] Lymphocytes Auto (Unsp spec) [#/Vol]Ordered By: Tre García on 09-19-2024 Lymphocytes (Bld) [#/Vol] 2.79 10*3/uL 0.83-4.51 [facility] Lymphocytes/100 WBC Auto (Un sp spec)Ordered By: Tre García 09-19-2024 Lymphocytes/100 WBC (Bld) 37.3 % 19-41 [facility] MCV (mean corpuscular volume ) determinationOrdered By: Tre García 09-19-2024 MCV (RBC) [Entitic vol] 92.3 fL 80-94 [facility] Mean corpuscular hemoglobin (MCH) determinationOrdered By: Tre García 09-19-2024 MCH (RBC) [Entitic mass] 31.0 pg 27.0-32.0 [facility] Mean corpuscular hemoglobin concentration (MCHC) determinationOrdered By: Tre García 09-19-2024 MCHC (RBC) [Mass/Vol] 33.6 g/dL 32-36 [facility] Mean platelet volume determi nationOrdered By: Tre García 09-19-2024 Platelet mean volume (Bld) [Entitic vol] 9.4 fL 6.2-12.0 [facility] Monocyte percentageOrdered B y: Tre García on 09-19-2024 Monocytes/100 WBC (Bld) 4.1 % 0-10 [facility] Neutrophil percentageOrdered By: Tre García 09-19-2024 Neutrophils/100 WBC (Bld) 57.6 % 47-70 [facility] Nucleated red blood cell per centageOrdered By: Tre García on 09-19-2024 Nucleated RBC/100 WBC (Bld) [Ratio] 0 % 0-5 [facility] PSA, total screeningOrdered By: Tre García on 09-19-2024 Prostate Specific Antigen Screen 0.15 ng/mL 0.02-4.00 [facility] Comment on above: This test was perfor med using the [employer] tPSA method. Measured values of a patient sample can vary depending on the testing procedure used. PSA values determined on patient samples by different testing procedures cannot be used interchangeably. If there is a change in PSA assays while monitoring therapy, sequential testing should be performed to confirm baseline values. PSA,Total - Annual Screenon 09-19-2024 PSA,TOT SCREEN 0.15 ng/mL Normal 0.02-4.00 [facility] Comment on above: Result Comment: This test was performed using the [employer] tPSA method. Measured values of a patient??sample can vary depending on the testing procedure used. PSA values determined on patient samples by different testing procedures cannot be used interchangeably. If there is a change in PSA assays while monitoring therapy, sequential testing should be performed to confirm baseline values. Performed By: #### L 100.0100, L500.4050, L501.9520, L506.1001, L501.9910 #### [facility] [address] [place], [address] Platelet countOrdered By: Nito García on 09-19-2024 Platelets (Bld) [#/Vol] 165 10*3/uL 150-450 [facility] Potassium (Unsp spec) [Mass/ Vol]Ordered By: Tre García on 09-19-2024 Potassium [Moles/Vol] 4.7 mmol/L 3.3-5.1 [facility] Potassium measurement (mass/ volume)Ordered By: Tre García on 09-19-2024 Potassium (Unsp spec) [Mass/Vol] 4.7 mmol/L 3.3-5.1 [facility] RBC Auto (Bld) [#/Vol]Ordere d By: Tre García on 09-19-2024 RBC (Bld) [#/Vol] 4.81 10*6/uL 4.6-6.2 [facility] Serum creatinine measurement (mass/volume)Ordered By: Tre García 09-19-2024 Creatinine [Mass/Vol] 1.00 mg/dL 0.70-1.20 [facility] Serum globulin measurementOr dered By: Tre García 09-19-2024 Globulin (S) [Mass/Vol] 2.3 g/dL 2.2-4.2 [facility] Serum glucose measurement (m ass/volume)Ordered By: Tre García 09-19-2024 Glucose [Mass/Vol] 87 mg/dL 70-99 [facility] Serum or plasma alanine murphy otransferase (ALT) measurementOrdered By: Tre García 09-19-2024 ALT [Catalytic activity/Vol] 26 U/L <47 [facility] Serum or plasma albumin patti urement (mass/volume)Ordered By: Tre Gracía 09-19-2024 Albumin [Mass/Vol] 4.2 g/dL 3.4-4.8 [facility] Serum or plasma albumin/glob ulin mass ratioOrdered By: Tre García 09-19-2024 Albumin/Globulin [Mass ratio] 1.8 {ratio} 0.9-2.4 [facility] Serum or plasma alkaline shy sphatase measurementOrdered By: Tre García 09-19-2024 ALP [Catalytic activity/Vol] 92 U/L 40-129 [facility] Serum or plasma calcium ptati urement (mass/volume)Ordered By: Tre García 09-19-2024 Calcium [Mass/Vol] 9.2 mg/dL 7.6-11.0 [facility] Serum or plasma urea nitroge n measurement (mass/volume)Ordered By: Tre García 09-19-2024 Urea nitrogen [Mass/Vol] 19 mg/dL 4-19 [facility] Sodium levelOrdered By: Tre García 09-19-2024 Sodium [Moles/Vol] 139 mmol/L 133-145 [facility] TSH DL <= 0.005 mIU/L QnOrde red By: Tre García 09-19-2024 Thyroid Stimulating Hormone (TSH) 1.270 uIU/mL 0.300-4.200 [facility] TSH Qn 1.270 uIU/mL 0.300-4.200 [facility] Thyroid Stim Hormone (TSH)on 09-19-2024 TSH 1.270 uIU/mL Normal 0.300-4.200 [facility] Comment on above: Performed By: #### L 100.0100, L500.4050, L501.9520, L506.1001, L501.9910 #### [facility] [address] [place], [address] Total proteinOrdered By: Tre García on 09-19-2024 Protein [Mass/Vol] 6.5 g/dL 5.9-8.4 [facility] Vitamin D, 25-hydroxyOrdered By: Tre García on 09-19-2024 Vitamin D 25-Hydroxy 11.0 ng/mL Low 30-100 [facility] Comment on above: Vitamin D StatusDefi ciency: <20 ng/mL (50nmol/L)Insufficiency: 20-30 ng/mL (50-75 nmol/L)Sufficiency: 30-100 ng/mL (75-250 nmol/L)Toxicity: >100 ng/mL (>250 nmol/L) Vitamin D,25 Hydroxyon 09-19 Vitamin D 25-OH 11.0 ng/mL Low 30-100 [facility] Comment on above: Result Comment: Aixa min D Status Deficiency: <20 ng/mL (50nmol/L) Insufficiency: 20-30 ng/mL (50-75 nmol/L) Sufficiency: 30-100 ng/mL (75-250 nmol/L) Toxicity: >100 ng/mL (>250 nmol/L) Performed By: #### L 500.4050, L100.0100, L506.1000, L501.9520 #### [facility] [address] [place], [address] White blood cell (WBC) count Ordered By: Tre García on 09-19-2024 WBC (Bld) [#/Vol] 7.5 10*3/uL 4.4-11.0 [facility] NE - Individual Treatment Pl anon 09-15-2024 NE - Individual Treatment Plan [facility] [address] [place] [address] NE - Individual Treatment Plan MR#: [id number] Acct: [id number] Name: VALENTINA CABRERA Rep #: [id number] : 1945 79 From: Max Douglass BS, RVT PCP: Dr. Tre García MD Exercise - Initial Assessment Visit Session Number:: 29 Physician Prescribed Exercise Modalities: Treadmill, Schwinn Airdyne AD-7 and SciFit Stepper Current METSs:: 3.6 Resting Blood Pressure: 124/68 Maximum Exercise Blood Pressure: 130/60 Minimum SpO2 with exercise: 90 EKG Type: NSR to ST Nutrition/Wt Mgmt - Initial Visit Session Number:: 29 Weight Management Admit Height:: 5 ft 8 in Admit Weight:: 196 lb 8 oz Admit BMI:: 29.8 Nutrition/Wt Mgmt - 30-Day Visit Date of Eval: 09/15/24 Session Number:: 29 Weight Management Height: 5 ft 8 in Weight:: 196 lb 8 oz BMI: 29.8 Nutrition/Wt Mgmt - 60-Day Visit Session Number:: 29 Weight Management Height: 5 ft 8 in Weight:: 196 lb 8 oz BMI: 29.8 Nutrition/Wt Mgmt - 90-Day Visit Session Number:: 29 Weight Management Height: 5 ft 8 in Weight:: 196 lb 8 oz BMI: 29.8 Nutrition/Wt Mgmt - Final Visit Date of Eval: 09/15/24 Session Number:: 29 Weight Management Height: 5 ft 8 in Weight:: 196 lb 8 oz BMI: 29.8 Weight Goals Progress:: Goal met (Pt is at a healthy weight. Pt has attended nutrition class.) Psychosocial - Initial Assess Visit Session Number:: 29 Problems/Goals History of Emotional Disorders: Anxious and Depression Psychosocial Goals: 1. Patient is free from overwhelming symtoms of depression (or anxiety, 2. Identifies personal stressors states the strategies for managing, 3. Identifies activities to decrease isolation and/or symptoms of, 4. Improved psychosocial coping skills., 5. Verbalizes coping strategies. and 7. Improved Q.O.L. Psychosocial Test Tool Used:: Pulmonary QOL and PHQ-9 Questionnaire PHQ-9 Score: 1 Referral to Behavioral Health PS - Interventions: Yes: Attend Stress Management Classes Intervention/Plan: See List Interventions/Plan:: Assess stressors,coping strategies signs of derpression on admission, Instruct/assist pt to develop coping personal stress Mgt strategies, Refer to Behavioral Health if appropriate, Refer to Physician if appropriate, Instruct patient to recognize signs symptoms of depression and Instruct patient to recog Comments:: Pt is doing great. Pt has attended stress management class. Psychosocial - 30-Day Visit Date of Evdusty: 09/15/24 Session Number:: 29 Problems/Goals History of Emotional Disorders: Anxious and Depression Psychosocial Goals: 1. Patient is free from overwhelming symtoms of depression (or anxiety, 2. Identifies personal stressors states the strategies for managing, 3. Identifies activities to decrease isolation and/or symptoms of, 4. Improved psychosocial coping skills., 5. Verbalizes coping strategies. and 7. Improved Q.O.L. Psychosocial Test Tool Used:: Pulmonary QOL and PHQ-9 Questionnaire PHQ-9 Score: 1 Referral to Behavioral Health PS - Interventions: Yes: Attend Stress Management Classes Plan Interventions/Plan:: Assess stressors,coping strategies signs of derpression on admission, Instruct/assist pt to develop coping personal stress Mgt strategies, Refer to Behavioral Health if appropriate, Refer to Physician if appropriate, Instruct patient to recognize signs symptoms of depression and Instruct patient to recog Comments:: Pt is doing great. Pt has attended stress management class. Psychosocial - 60-Day Visit Session Number:: 29 Problems/Goals History of Emotional Disorders: Anxious and Depression Psychosocial Goals: 1. Patient is free from overwhelming symtoms of depression (or anxiety, 2. Identifies personal stressors states the strategies for managing, 3. Identifies activities to decrease isolation and/or symptoms of, 4. Improved psychosocial coping skills., 5. Verbalizes coping strategies. and 7. Improved Q.O.L. Psychosocial Test Tool Used:: Pulmonary QOL and PHQ-9 Questionnaire PHQ-9 Score: 1 Referral to Behavioral Health PS - Interventions: Yes: Attend Stress Management Classes Plan Interventions/Plan:: Assess stressors,coping strategies signs of derpression on admission, Instruct/assist pt to develop coping personal stress Mgt strategies, Refer to Behavioral Health if appropriate, Refer to Physician if appropriate, Instruct patient to recognize signs symptoms of depression and Instruct patient to recog Comments:: Pt is doing great. Pt has attended stress management class. Psychosocial - 90-Day Visit Session Number:: 29 Problems/Goals History of Emotional Disorders: Anxious and Depression Psychosocial Goals: 1. Patient is free from overwhelming symtoms of depression (or anxiety, 2. Identifies personal stressors states the strategies for managing, 3. Identifies activ (more content not included)... Normal [facility] NE - Individual Treatment Pl anon 08-17-2024 NE - Individual Treatment Plan [facility] [address] [place] [address] NE - Individual Treatment Plan MR#: [id number] Acct: [id number] Name: VALENTINA CABRERA Rep #: [id number] : 1945 79 From: Max Douglass BS, RVT PCP: Dr. Tre García MD Exercise - Initial Assessment Visit Session Number:: 19 Physician Prescribed Exercise Modalities: Treadmill, Schwinn Airdyne AD-7 and SciFit Stepper Current METSs:: 3.6 Target HR:: 112 (84-112) Current RPD:: 2 Maximum Exercise HR:: 84-112 Resting Blood Pressure: 126/68 Maximum Exercise Blood Pressure: 140/70 Minimum SpO2 with exercise: 90 EKG Type: NSR to ST Nutrition/Wt Mgmt - Initial Visit Session Number:: 19 Weight Management Admit Height:: 5 ft 8 in Admit Weight:: 197 lb 8 oz Admit BMI:: 30.0 Nutrition/Wt Mgmt - 30-Day Visit Date of Eval: 08/17/24 Session Number:: 19 Weight Management Height: 5 ft 8 in Weight:: 197 lb 8 oz BMI: 30.0 Nutrition/Wt Mgmt - 60-Day Visit Session Number:: 19 Weight Management Height: 5 ft 8 in Weight:: 197 lb 8 oz BMI: 30.0 Weight Goals Progress:: Progressing (Pt has attended nutrition class and understands the benefits of a healthy diet. Will continue to encourage.) Nutrition/Wt Mgmt - 90-Day Visit Date of Eval: 08/17/24 Session Number:: 19 Weight Management Height: 5 ft 8 in Weight:: 197 lb 8 oz BMI: 30.0 Weight Goals Progress:: Progressing (Pt has attended nutrition class and understands the benefits of a healthy diet. Will continue to encourage.) Nutrition/Wt Mgmt - Final Visit Session Number:: 19 Weight Management Height: 5 ft 8 in Weight:: 197 lb 8 oz BMI: 30.0 Psychosocial - Initial Assess Visit Session Number:: 19 Problems/Goals History of Emotional Disorders: Anxious and Depression Psychosocial Goals: 1. Patient is free from overwhelming symtoms of depression (or anxiety, 2. Identifies personal stressors states the strategies for managing, 3. Identifies activities to decrease isolation and/or symptoms of, 4. Improved psychosocial coping skills., 5. Verbalizes coping strategies., 6. Adequate treatment of depression. and 7. Improved Q.O.L. Psychosocial Test Tool Used:: Pulmonary QOL and PHQ-9 Questionnaire Referral to Behavioral Health PS - Interventions: Yes: Attend Stress Management Classes Intervention/Plan: See List Interventions/Plan:: Assess stressors,coping strategies signs of derpression on admission, Instruct/assist pt to develop coping personal stress Mgt strategies, Refer to Behavioral Health if appropriate, Refer to Physician if appropriate, Instruct patient to recognize signs symptoms of depression and Instruct patient to recog Comments:: Pt to attend stress management and relaxation class. Psychosocial - 30-Day Visit Date of Eval: 08/17/24 Session Number:: 19 Problems/Goals History of Emotional Disorders: Anxious and Depression Psychosocial Goals: 1. Patient is free from overwhelming symtoms of depression (or anxiety, 2. Identifies personal stressors states the strategies for managing, 3. Identifies activities to decrease isolation and/or symptoms of, 4. Improved psychosocial coping skills., 5. Verbalizes coping strategies., 6. Adequate treatment of depression. and 7. Improved Q.O.L. Psychosocial Test Tool Used:: Pulmonary QOL and PHQ-9 Questionnaire Referral to Behavioral Health PS - Interventions: Yes: Attend Stress Management Classes Plan Interventions/Plan:: Assess stressors,coping strategies signs of derpression on admission, Instruct/assist pt to develop coping personal stress Mgt strategies, Refer to Behavioral Health if appropriate, Refer to Physician if appropriate, Instruct patient to recognize signs symptoms of depression and Instruct patient to recog Comments:: Pt to attend stress management and relaxation class. Psychosocial - 60-Day Visit Session Number:: 19 Problems/Goals History of Emotional Disorders: Anxious and Depression Psychosocial Goals: 1. Patient is free from overwhelming symtoms of depression (or anxiety, 2. Identifies personal stressors states the strategies for managing, 3. Identifies activities to decrease isolation and/or symptoms of, 4. Improved psychosocial coping skills., 5. Verbalizes coping strategies., 6. Adequate treatment of depression. and 7. Improved Q.O.L. Psychosocial Test Tool Used:: Pulmonary QOL and PHQ-9 Questionnaire Referral to Behavioral Health PS - Interventions: Yes: Attend Stress Management Classes Plan Interventions/Plan:: Assess stressors,coping strategies signs of derpression on admission, Instruct/assist pt to develop coping personal stress Mgt strategies, Refer to Behavioral Health if appropriate, Refer to Physician if appropriate, Instruct patient to recognize signs symptoms of depression and Instruct patient to recog Comments:: Pt to attend stress management and relaxation (more content not included)... Normal [facility] Influenza virus A and B and SARS-CoV-2 (COVID-19) and Respiratory syncytial virus RNAOrdered By: Tre García on 08-14-2024 SARS-CoV-2 (COVID-19) RNA GRACE+probe Ql (Unsp spec) [facility] M100.678on 08-14-2024 M100.678 Pending SARS-CoV-2 (COVID 19) Negative INFLUENZA A Negative INFLUENZA B Negative RSV PCR Negative Normal [facility] Comment on above: Performed By: #### L 500.4050, L100.0100, L506.1000, L501.9520 #### [facility] [address] [place], [address] NE - Individual Treatment Pl anon 07-27-2024 NE - Individual Treatment Plan [facility] Pulmonary Rehab Reports [address] [place] [address] NE - Individual Treatment Plan MR#: [id number] Acct: [id number] Name: VALENTINA CABRERA Rep #: [id number] : 1945 79 From: Max Douglass BS, RVT PCP: Dr. Tre Gacría MD Exercise - Initial Assessment Visit Session Number:: 13 Physician Prescribed Exercise Modalities: Treadmill, Schwinn Airdyne AD-7 and SciFit Stepper Target HR:: 810 (84-105) Current RPD:: 1-2 Maximum Exercise HR:: 103 Resting Blood Pressure: 128/70 Maximum Exercise Blood Pressure: 138/70 Minimum SpO2 with exercise: 90 (Pt does not require O2 at this time.) EKG Type: NSR to ST Nutrition/Wt Mgmt - Initial Visit Session Number:: 13 Weight Management Admit Height:: 5 ft 8 in Admit Weight:: 196 lb Admit BMI:: 29.7 Nutrition/Wt Mgmt - 30-Day Visit Date of Eval: 07/27/24 Session Number:: 13 Weight Management Height: 5 ft 8 in Weight:: 196 lb BMI: 29.7 Nutrition/Wt Mgmt - 60-Day Visit Date of Eval: 07/27/24 Session Number:: 13 Weight Management Height: 5 ft 8 in Weight:: 196 lb BMI: 29.7 Weight Goals Progress:: Progressing (Pt encouraged to eat a low sodium diet and lose weight to help lower BP's. BP's are slightly elevated per AHA normal limits.) Nutrition/Wt Mgmt - 90-Day Visit Session Number:: 13 Weight Management Height: 5 ft 8 in Weight:: 196 lb BMI: 29.7 Weight Goals Progress:: Progressing (Pt encouraged to eat a low sodium diet and lose weight to help lower BP's. BP's are slightly elevated per AHA normal limits.) Nutrition/Wt Mgmt - Final Visit Session Number:: 13 Weight Management Height: 5 ft 8 in Weight:: 196 lb BMI: 29.7 Psychosocial - Initial Assess Visit Session Number:: 13 Problems/Goals History of Emotional Disorders: Anxious and Depression Psychosocial Goals: 1. Patient is free from overwhelming symtoms of depression (or anxiety, 2. Identifies personal stressors states the strategies for managing, 3. Identifies activities to decrease isolation and/or symptoms of, 4. Improved psychosocial coping skills., 5. Verbalizes coping strategies., 6. Adequate treatment of depression. and 7. Improved Q.O.L. Psychosocial Test Tool Used:: Pulmonary QOL and PHQ-9 Questionnaire Referral to Behavioral Health PS - Interventions: Yes: Attend Stress Management Classes Intervention/Plan: See List Interventions/Plan:: Assess stressors,coping strategies signs of derpression on admission, Instruct/assist pt to develop coping personal stress Mgt strategies, Refer to Behavioral Health if appropriate, Refer to Physician if appropriate, Instruct patient to recognize signs symptoms of depression, Instruct patient to recog and Other additional plan/intervention Comments:: Pt is to attend stress management class. Pt is also to attend guided imagery and relaxation class. Psychosocial - 30-Day Visit Date of Eval: 07/27/24 Session Number:: 13 Problems/Goals History of Emotional Disorders: Anxious and Depression Psychosocial Goals: 1. Patient is free from overwhelming symtoms of depression (or anxiety, 2. Identifies personal stressors states the strategies for managing, 3. Identifies activities to decrease isolation and/or symptoms of, 4. Improved psychosocial coping skills., 5. Verbalizes coping strategies., 6. Adequate treatment of depression. and 7. Improved Q.O.L. Psychosocial Test Tool Used:: Pulmonary QOL and PHQ-9 Questionnaire Referral to Behavioral Health PS - Interventions: Yes: Attend Stress Management Classes Plan Interventions/Plan:: Assess stressors,coping strategies signs of derpression on admission, Instruct/assist pt to develop coping personal stress Mgt strategies, Refer to Behavioral Health if appropriate, Refer to Physician if appropriate, Instruct patient to recognize signs symptoms of depression, Instruct patient to recog and Other additional plan/intervention Comments:: Pt is to attend stress management class. Pt is also to attend guided imagery and relaxation class. Psychosocial - 60-Day Visit Date of Eval: 07/27/24 Session Number:: 13 Problems/Goals History of Emotional Disorders: Anxious and Depression Psychosocial Goals: 1. Patient is free from overwhelming symtoms of depression (or anxiety, 2. Identifies personal stressors states the strategies for managing, 3. Identifies activities to decrease isolation and/or symptoms of, 4. Improved psychosocial coping skills., 5. Verbalizes coping strategies., 6. Adequate treatment of depression. and 7. Improved Q.O.L. Psychosocial Test Tool Used:: Pulmonary QOL and PHQ-9 Questionnaire Referral to Behavioral Health PS - Interventions: Yes: Attend Stress Management Classes Plan Interventions/Plan:: Assess stressors,coping strategies signs of derpression on admission, Instruct/assist pt to develop coping personal stress Mgt strategies, Refer to Beh (more content not included)... Normal [facility] NE - Individual Treatment Pl anon 06-29-2024 NE - Individual Treatment Plan [facility] Pulmonary Rehab Reports [address] [place] [address] NE - Individual Treatment Plan MR#: [id number] Acct: [id number] Name: VALENTINA CABRERA Rep #: [id number] : 1945 79 From: Max Douglass BS, RVT PCP: Dr. Tre García MD Exercise - Initial Assessment Visit Session Number:: 3 Physician Prescribed Exercise Modalities: Treadmill, Schwinn Airdyne AD-7 and SciFit Stepper Current METSs:: 3.7 Target HR:: 105 (84-105) Current RPD:: 2-3 Maximum Exercise HR:: 118 Resting Blood Pressure: 124/72 Maximum Exercise Blood Pressure: 144/84 Minimum SpO2 with exercise: 90 EKG Type: NSR to ST with rare ectopy Nutrition/Wt Mgmt - Initial Visit Session Number:: 3 Weight Management Admit Height:: 5 ft 8 in Admit Weight:: 196 lb 8 oz Admit BMI:: 29.8 Nutrition/Wt Mgmt - 30-Day Visit Date of Eval: 06/29/24 Session Number:: 3 Weight Management Height: 5 ft 8 in Weight:: 196 lb 8 oz BMI: 29.8 Weight Goals Progress:: Progressing (Pt is scheduled to attend nutrition class. Will encourage a heart healthy low sodium diet.) Nutrition/Wt Mgmt - 60-Day Visit Session Number:: 3 Weight Management Height: 5 ft 8 in Weight:: 196 lb 8 oz BMI: 29.8 Nutrition/Wt Mgmt - 90-Day Visit Session Number:: 3 Weight Management Height: 5 ft 8 in Weight:: 196 lb 8 oz BMI: 29.8 Nutrition/Wt Mgmt - Final Visit Session Number:: 3 Weight Management Height: 5 ft 8 in Weight:: 196 lb 8 oz BMI: 29.8 Psychosocial - Initial Assess Visit Session Number:: 3 Problems/Goals History of Emotional Disorders: Anxious and Depression Psychosocial Goals: 1. Patient is free from overwhelming symtoms of depression (or anxiety, 2. Identifies personal stressors states the strategies for managing, 3. Identifies activities to decrease isolation and/or symptoms of, 4. Improved psychosocial coping skills., 5. Verbalizes coping strategies., 6. Adequate treatment of depression. and 7. Improved Q.O.L. Psychosocial Test Tool Used:: Pulmonary QOL and PHQ-9 Questionnaire Referral to Behavioral Health PS - Interventions: Yes: Attend Stress Management Classes Intervention/Plan: See List Interventions/Plan:: Assess stressors,coping strategies signs of derpression on admission, Instruct/assist pt to develop coping personal stress Mgt strategies, Refer to Behavioral Health if appropriate, Refer to Physician if appropriate, Instruct patient to recognize signs symptoms of depression and Instruct patient to recog Psychosocial - 30-Day Visit Date of Eval: 06/29/24 Session Number:: 3 Problems/Goals History of Emotional Disorders: Anxious and Depression Psychosocial Goals: 1. Patient is free from overwhelming symtoms of depression (or anxiety, 2. Identifies personal stressors states the strategies for managing, 3. Identifies activities to decrease isolation and/or symptoms of, 4. Improved psychosocial coping skills., 5. Verbalizes coping strategies., 6. Adequate treatment of depression. and 7. Improved Q.O.L. Psychosocial Test Tool Used:: Pulmonary QOL and PHQ-9 Questionnaire Referral to Behavioral Health PS - Interventions: Yes: Attend Stress Management Classes Plan Interventions/Plan:: Assess stressors,coping strategies signs of derpression on admission, Instruct/assist pt to develop coping personal stress Mgt strategies, Refer to Behavioral Health if appropriate, Refer to Physician if appropriate, Instruct patient to recognize signs symptoms of depression and Instruct patient to recog Psychosocial - 60-Day Visit Session Number:: 3 Problems/Goals History of Emotional Disorders: Anxious and Depression Psychosocial Goals: 1. Patient is free from overwhelming symtoms of depression (or anxiety, 2. Identifies personal stressors states the strategies for managing, 3. Identifies activities to decrease isolation and/or symptoms of, 4. Improved psychosocial coping skills., 5. Verbalizes coping strategies., 6. Adequate treatment of depression. and 7. Improved Q.O.L. Psychosocial Test Tool Used:: Pulmonary QOL and PHQ-9 Questionnaire Referral to Behavioral Health PS - Interventions: Yes: Attend Stress Management Classes Plan Interventions/Plan:: Assess stressors,coping strategies signs of derpression on admission, Instruct/assist pt to develop coping personal stress Mgt strategies, Refer to Behavioral Health if appropriate, Refer to Physician if appropriate, Instruct patient to recognize signs symptoms of depression and Instruct patient to recog Psychosocial - 90-Day Visit Session Number:: 3 Problems/Goals History of Emotional Disorders: Anxious and Depression Psychosocial Goals: 1. Patient is free from overwhelming symtoms of depression (or anxiety, 2. Identifies personal stressors states the strategies for managing, 3. Identifies activities to decrease isolation and/or symptoms of, 4. Improved p (more content not included)... Normal [facility] NE - History AND Physicalon 05-29-2024 NE - History & Physical [facility] Pulmonary Rehab Reports [address] [place] [address] NE - History Physical MR#: [id number] Acct: [id number] Name: VALENTINA CABRERA Rep #: [id number] : 1945 79 From: Max Douglass BS, RVT PCP: Dr. Tre García MD History of Present Illness General Arrival date:: 05/29/24 Arrival time:: 13:55 Date of Referral:: 04/13/24 Date of Evaluation: 05/29/24 Referring Physician: Dr. García Primary Diagnosis: chronic bronchitis, unspecified asthma History of Present Pulmonary Event mMRC Breathless Scale: When is the patient short of breath? Y/N Grade: Description of Breathlessness: 0 I only get breathless with strenuous exercise. 1 I get short of breath when hurrying on level ground or walking up a slight hill. 2 On level ground, I walk slower than people of the same age because of breathless, or have to stop for breath when walking at my own pace. 3 I stop for breath after walking 100 yards or after a few minutes on level ground. 4 I am too breathless to leave the house or I am breathless when dressing. Respiratory Problems: Yes Retain Secretions, Fatigue, Able to Speak in Full Sentences, Hoarseness, Anxiety, Dyspnea at Rest, Dyspnea with Activity and Cough with Secretions; No Limited Range of Motion, Chest Pain, Wheezing, Dizziness, Ankle Swelling, Panic or Dyspnea Lying Down Flat Medications Home Medications polyethylene glycol 3350 17 gram oral powder packet 17 g PO DAILY PRN Constipation 04/19/13 lisinopril 5 mg tablet 5 mg PO DAILY 08/28/20 tamsulosin 0.4 mg capsule 0.4 mg PO QHS 06/16/21 albuterol sulfate 90 mcg/actuation breath activated powder inhaler 2 inh inhalation Q6H PRN shortness of breath 05/06/23 mometasone-formoterol HFA 200 mcg-5 mcg/actuation aerosol inhaler (Dulera) 2 puff inhalation BID 05/06/23 montelukast 10 mg tablet 10 mg PO DAILY 05/06/23 nortriptyline 50 mg capsule 50 mg PO BID 06/02/23 omeprazole 10 mg capsule,delayed release 40 mg PO DAILY 06/02/23 Allergies Allergies No Known Allergies Allergy (Verified 01/03/24 14:15) Secretions Thick:: Yes Amount/Day:: 1 TSP AM: Yes Sleep Disorder Evaluation Hx of Sleep Apnea: No Do you snore loudly (louder than talking or can be heard through closed doors)?: No Do you often feel tired/ fatigued/ sleepy during daytime?: No Has anyone observed you stop breathing during sleep?: No History of Hypertension (for STOP score): Yes STOP Results: Negative Medical Utilization Medical Devices Do you use a peak flow meter at home?: No Do you use a spacer device with your inhalers?: No Medical Utilization Number of hospital visits in the last year?: 0 Number of emergency room visits in the last year?: 0 Do you see your physician on a regular schedule?: No Advanced Directives Advanced Directives Power of Icu Manager: Yes Living Will: Yes Advance Directives Information Provided: Yes Advance Directives on File: No DNR Order?:: No Past Medical History Covid-19 Screening Physicial Symptoms Other Clinical Concerns Exposure Risk Pertinent Comorbidities Has a chronic lung disease or moderate to severe asthma:: Yes Medical History Medical History Anxiety Lower urinary tract symptoms (LUTS) Constipation Chronic low back pain BPH (benign prostatic hyperplasia) Hyperlipidemia Depression SOB (shortness of breath) Asthma COVID-19 Hypertension GERD (gastroesophageal reflux disease) Surgical History Surgical History Hx of cataract extraction Significant Family History Family History Mother Depression CVA (cerebral vascular accident) Anxiety Hypertension Father Pancreatic cancer Social History Smoking History Smoking Status: Former smoker Years Smokin (cigars, stopped around 1979) Occupation Occupation (List type of work in comments):: Retired Hobbies, Recreation, Social Activities Hobbies: Sports and Reading Recreational Activities: I am able to engage in all my recreational activities Functioning ADL/IADL Current Ability Current Ability: Independent: Self-Care (e.g.,grooming, dressing, bathing), Independent: Ambulation, Independent: Transfer and Independent: Household tasks (e.g., light meal prep, laundry, shopping) Pt Functioning Prior to Problem Prior Functioning: Self-Care (e.g.,grooming, dressing, bathing): Independent, Ambulation: Independent, Transfer: Independent and Household tasks (e.g., light meal prep, laundry, shopping): Independent Social Environment Status Marital Status: Current Living Arrangements Living Environment:: Spouse Children How many children do you have?: 3 Do any of your children live nearby?: Yes Safety Do (more content not included)... Normal [facility] NE - Individual Treatment Pl anon 05-29-2024 NE - Individual Treatment Plan [facility] Pulmonary Rehab Reports [address] [place] [address] NE - Individual Treatment Plan MR#: [id number] Acct: [id number] Name: VALENTINA CABRERA Rep #: [id number] : 1945 79 From: Max LAY, RVT PCP: Dr. Tre García MD General Information2 General Information Admitting Diagnosis: chronic bronchitis, unspecified asthma PFT FEV1:: 91 FVC:: 107 FEV1/FVC%:: 84 Personal Learning Style/Barriers Personal Learning Style:: Audio/Visual Barriers to Learning: None Stage of change r/t lifestyle modifications: Contemplation Education/Goals NE Patient Goals: Increase muscle strength: Initial Assessment, Experience less dyspnea: Initial Assessment, Improve energy level: Initial Assessment, Participate in home exercise: Initial Assessment, Improve the ability to cope with ADLs: Initial Assessment, Improve knowledge of lung disease: Initial Assessment, Understand how to use medications: Initial Assessment, Improve my quality of life: Initial Assessment and Reduce Stress/relaxation techniques: Initial Assessment Exercise - Initial Assessment Visit Date of Eval: 05/29/24 (initial eval ) Problem/Goals Problems: Knowledge deficit exercise guidelines Goals:: NE: 2-3/wk for 18 weeks [36 sessions] Physician Prescribed Exercise Modalities: Treadmill, Rower, Schwinn Airdyne AD-7, SciFit Stepper, SciFit Pro-II Ergometer and SciFit Lateral [place] Frequency (days/week): 3 Duration (Minutes):: 30-45 Intensity: 60-80% of age predicted maximum heart rate reserve Current METSs:: 2.5 Target HR:: 105 (84-105) Resting Blood Pressure: 128/74 EKG Type: NSR Plan Plan and Plan to Review:: Benefits of exercise, Core components of exercise, How to measure dyspnea level, How to monitor dyspnea level, Exercise intensity, Exercise safety guideline, Home exercise guidelines and Maximus: 3-4/11-13 Home Exercise Mode: Walking Nutrition/Wt Mgmt - Initial Visit Date of Eval: 05/29/24 (initial eval ) Problems/Goals Problems: Overweight Goals: Wt Loss 1-2 lbs per week Weight Management Knowledge Deficit Management of:: Overweight and Role of exercise in weight control Admit Height:: 5 ft 8 in Admit Weight:: 193 lb Admit BMI:: 29.3 Intervention Referral to dietitian:: No Will attend diet classes:: Yes Intervention/Plan: Instruct on ideal BMI set weight loss goal w/patient, Assist pt to ID incorporate diet changes for weight loss by S9, Refer to Structured Weight Loss program as appropriate, Encourage goal of using 250-300dcal per session for weight loss and Other additional plan/interventions Plan Nutrition Plan: Yes: Review BMI or WC identify target wt strategies for wt control, Yes: Nutrition education class:, Yes: Medication education class [Prednisone]:, Yes: Weight control education class:, Yes: Education re: Need for ongoing weight monitoring, Yes: Food diary: and Yes: Physical activity log: Nutrition/Wt Mgmt - 30-Day Weight Management Height: 5 ft 8 in Weight:: 193 lb BMI: 29.3 Nutrition/Wt Mgmt - 60-Day Weight Management Height: 5 ft 8 in Weight:: 193 lb BMI: 29.3 Nutrition/Wt Mgmt - 90-Day Weight Management Height: 5 ft 8 in Weight:: 193 lb BMI: 29.3 Nutrition/Wt Mgmt - Final Weight Management Height: 5 ft 8 in Weight:: 193 lb BMI: 29.3 Psychosocial - Initial Assess Visit Date of Eval: 05/29/24 (initial eval ) Problems/Goals History of Emotional Disorders: Anxious and Depression Psychosocial Goals: 1. Patient is free from overwhelming symtoms of depression (or anxiety, 2. Identifies personal stressors states the strategies for managing, 3. Identifies activities to decrease isolation and/or symptoms of, 4. Improved psychosocial coping skills., 5. Verbalizes coping strategies., 6. Adequate treatment of depression. and 7. Improved Q.O.L. Psychosocial Test Tool Used:: Pulmonary QOL and PHQ-9 Questionnaire Referral to Behavioral Health PS - Interventions: Yes: Attend Stress Management Classes Intervention/Plan: See List Interventions/Plan:: Assess stressors,coping strategies signs of derpression on admission, Instruct/assist pt to develop coping personal stress Mgt strategies, Refer to Behavioral Health if appropriate, Refer to Physician if appropriate, Instruct patient to recognize signs symptoms of depression and Instruct patient to recog Comments:: Pt has been on meds since the 1979's for depression and states he is doing fine. Psychosocial - 30-Day Problems/Goals History of Emotional Disorders: Anxious and Depression Psychosocial Goals: 1. Patient is free from overwhelming symtoms of depression (or anxiety, 2. Identifies personal stressors states the strategies for managing, 3. Identifies activities to decrease isolation and/or symptoms of, 4. Improved psychosocial coping skills., 5. Verbalizes coping strategies., 6. Adequate treatment of depression. an (more content not included)... [facility] Visit (PULMWS ) VALENTINA CABRERA ([id number]) 1945 M Date Time Provider Department 05/26/24 2:15 PM GENIE BUSTAMANTE PULMWS During your visit today, we recorded the following information about you: Pulse Blood pressure Weight 87/minute 126/70 91.2 kg Genie Bustamante MD 05/26/2024 5:25 PM Signed . Respiratory Burton Note Patient name: Valentina Cabrera PCP: Tre [...] of breath. Patient was actually hospitalized at [facility], hypoxemic, received remdesivir and dexamethasone and actually [...] chest tightness. Pulmonary function test performed at [facility] shows small airways obstruction with worsening of his airflow postbronchodilator. 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 CARDIOVASCULAR: No chest pain, palpitations, edema. PULM: See HPI GI: No dysphagia/odynophagia , problematic reflux NEURO: No new balance problems, peripheral weakness/paresthesia (more content not included)... Normal [facility] History AND Physic romulo 05-10-2024 Wound Ctr History & Physical [facility] [address] [place] [address] H P Exam - Wound Care 05/10/24 1226 MR#: [id number] Acct: [id number] Name: VALENTINA CABRERA Rep #: [id number] : 1945 79 From: Kimberly Swenson NP PEDIATRIC DERMATOLOGIST-C PCP: Dr. Tre García MD Status:REG RCR Location: History of Present Illness Date of Service: 05/10/24 Chief Complaint: Left forearm skin tear History of Wound: 78-year-old male fell and bumped his right forearm 2 weeks ago. He developed a skin tear. He went to see his PCP Dr. García who gave him a shot of antibiotics and 2 rounds of oral antibiotics he is still on his Bactrim. He does develop staph infections easily. He has been covering this wound with Adaptic and gauze. He felt that every time he took the Adaptic off he was tearing and bleeding more. He denies any fever, chills, nausea, vomiting. [facility] Medical History Anxiety Lower urinary tract symptoms (LUTS) Constipation Chronic low back pain BPH (benign prostatic hyperplasia) Hyperlipidemia Depression SOB (shortness of breath) Asthma COVID-19 Hypertension GERD (gastroesophageal reflux disease) Home Medications ???Medication ???Instructions ???Recorded ???Last Taken ???Type polyethylene glycol 3350 17 gram 17 g PO DAILY PRN Constipation 04/19/13 04/19/13 07:00 History oral powder packet lisinopril 5 mg tablet 5 mg PO DAILY 08/28/20 Unknown History tamsulosin 0.4 mg capsule 0.4 mg PO QHS 06/16/21 Unknown History albuterol sulfate 90 mcg/actuation 2 inh inhalation Q6H PRN shortness 05/06/23 Unknown History breath activated powder inhaler of breath mometasone-formoterol HFA 200 2 puff inhalation BID 05/06/23 Unknown History mcg-5 mcg/actuation aerosol inhaler (Dulera) montelukast 10 mg tablet 10 mg PO DAILY 05/06/23 Unknown History nortriptyline 50 mg capsule 50 mg PO BID 06/02/23 Unknown History omeprazole 10 mg capsule,delayed 40 mg PO DAILY 06/02/23 Unknown History release Allergy/AdvReac Type Severity Reaction Status Date / Time No Known Allergies Allergy Verified 01/03/24 14:15 Family History Mother Depression CVA (cerebral vascular accident) Anxiety Hypertension Father Pancreatic cancer Surgical History Hx of cataract extraction Social History Smoking Status: Never smoker alcohol intake: never substance use type: does not use ROS Constitutional Constitutional: Reports systems reviewed and no addt'l complaints, except as documented Eyes Eyes: Reports systems reviewed and no addt'l complaints, except as documented ENT HEENT: Reports systems reviewed and no addt'l complaints, except as documented Cardiovascular Cardiovascular: Reports systems reviewed and no addt'l complaints, except as documented Respiratory/Chest Respiratory/Chest: Reports systems reviewed and no addt'l complaints, except as documented Gastrointestinal Gastrointestinal: Reports systems reviewed and no addt'l complaints, except as documented Genitourinary Genitourinary: Reports systems reviewed and no addt'l complaints, except as documented Musculoskeletal Musculoskeletal: Reports systems reviewed and no addt'l complaints, except as documented Integumentary Integumentary: Reports wounds and other Details: Skin tear left forearm with some depth. Neurologic Neurologic: Reports systems reviewed and no addt'l complaints, except as documented Psychiatric Psychiatric: Reports systems reviewed and no addt'l complaints, except as documented Endocrine Endocrinology: Reports systems reviewed and no addt'l complaints, except as documented Hematologic/Lymphatic Hematologic/Lymphatic : Reports systems reviewed and no addt'l complaints, except as documented Allergic/Immunologic Allergic/Immunologic: Reports systems reviewed and no addt'l complaints, except as documented Vital Signs Vital Signs Vital Signs: 05/10/24 09:21 Temperature 96.8 F L Temperature Source Temporal Pulse Rate 92 Respiratory Rate 18 Blood Pressure 135/68 H Blood Pressure Mean 90 Blood Pressure Source Monitor Blood Pressure Position Semi-Fowlers Blood Pressure Location Left Arm Weight Weight: 189 lb Body Mass Index (BMI) 28.7 Physical Exam Const oriented x3 General Appearance: cooperative Exam Limitations: no limitations HEENT normocephalic Eyes General Eye: normal appearance of both eyes Neck full ROM General: normal visual inspection Resp normal respiratory effort Effort and Inspection: able to speak in complete sentences Cardio regular rate and regular rhythm GI Palpa (more content not included)... Normal [facility] Culture, Anaerobic Any Sourc lynsey 05-05-2024 CUAN LEFT FOREARM No anaerobic bacteria isolated. Normal [facility] Comment on above: Performed By: #### L 500.4050, L100.0100, L506.1000, L501.9520 #### [facility] [place], [address] Wound Cultureon 05-03-2024 WC LEFT FOREARM Staphylococcus aureus Amount Growth 3+ Staphylococcus aureus: REACTION cefOXitin Susc Islt Doxycycline Islt DAMARI <=0.5 S Clindamycin Islt DAMARI 0.25 S Clindamycin.induced Susc Islt NEG Erythromycin Islt DAMARI <=0.25 S Gentamicin Islt DAMARI <=0.5 S Linezolid Islt DAMARI 2 S Moxifloxacin Islt DAMARI <=0.25 S Oxacillin Susc Islt 0.5 S Tetracycline Islt DAMARI <=1 S TMP SMX Islt DAMARI <=10 S Vancomycin Islt DAMARI 1 S Normal [facility] Comment on above: Performed By: #### L 500.4050, L100.0100, L506.1000, L501.9520 #### [facility] [address] [place], [address] Gram Stainon 05-02-2024 GS LEFT FOREARM Gram Stain Rare Gram positive cocci Rare Red Blood Cells Rare White Blood Cells Normal [facility] Comment on above: Performed By: #### L 500.4050, L100.0100, L506.1000, L501.9520 #### [facility] [address] [place], [address] Bacteria identified Anaer cx Nom (Unsp spec)Ordered By: Tre García on 05-01-2024 Anaerobic Culture No anaerobic bacteri a isolated. [facility] Gram stainOrdered By: Tre plascencia on 05-01-2024 Microscopic observation Gram stain Nom (Unsp spec) [facility] [id number] 05-01-2024 [id number] LEFT FOREARM Normal Reference Range = Negative MRSA/SAUR WOUND PCR GeneXpert Instrument, PCR method MRSA PCR MRSA NEGATIVE STAPH. AUREUS PCR STAPH AUREUS POSITIVEA STAPH. AUREUS PCR STAPH AUREUS POSITIVEA Normal [facility] Comment on above: Performed By: #### L 500.4050, L100.0100, L506.1000, L501.9520 #### [facility] [address] [place], [address] MRSA Wound DNA by PCRon 12-0 MRSA DNA ASSAY Normal Negative [facility] Comment on above: Order Comment: LEFT FOREARMWOUND ON LEFT FOREARM Result Comment: AMOS GED TO MICRO MRSA WOUND ORDER Performed By: #### L 500.4050, L100.0100, L506.1000, L501.9520 #### [facility] [address] [place], [address] PROBE CHECK Normal [facility] Comment on above: Order Comment: LEFT FOREARMWOUND ON LEFT FOREARM Result Comment: AMOS GED TO MICRO MRSA WOUND ORDER Performed By: #### L 500.4050, L100.0100, L506.1000, L501.9520 #### [facility] [address] [place], [address] SA DNA ASSAY Normal Negative [facility] Comment on above: Order Comment: LEFT FOREARMWOUND ON LEFT FOREARM Result Comment: AMOS GED TO MICRO MRSA WOUND ORDER Performed By: #### L 500.4050, L100.0100, L506.1000, L501.9520 #### [facility] [address] [place], [address] SPC Normal [facility] Comment on above: Order Comment: LEFT FOREARMWOUND ON LEFT FOREARM Result Comment: AMOS GED TO MICRO MRSA WOUND ORDER Performed By: #### L 500.4050, L100.0100, L506.1000, L501.9520 #### [facility] [address] [place], [address] Routine wound cultureOrdered By: Tre García on 05-01-2024 Wound Culture Staphylococcus aureus Abnormal [facility] CBC W/Diff, Automatedon 10-2 Absolute Lymph 2.11 X10 3/uL Normal 0.83-4.51 [facility] Comment on above: Performed By: #### L 500.4050, L100.0100, L506.1000, L501.9520 #### [facility] [address] [place], [address] Absolute Neut 3.4 X10 3/uL Normal 2.0-7.7 [facility] Comment on above: Performed By: #### L 500.4050, L100.0100, L506.1000, L501.9520 #### [facility] [address] [place], [address] Basophils/100 WBC (Bld) 0.5 % Normal 0-1 [facility] Comment on above: Performed By: #### L 500.4050, L100.0100, L506.1000, L501.9520 #### [facility] [address] [place], [address] Eosinophils/100 WBC (Bld) 0.5 % Normal 0-5 [facility] Comment on above: Performed By: #### L 500.4050, L100.0100, L506.1000, L501.9520 #### [facility] [address] [place], [address] Erythrocyte distribution width (RBC) [Ratio] 13.4 % Normal 11.6-14.6 [facility] Comment on above: Performed By: #### L 500.4050, L100.0100, L506.1000, L501.9520 #### [facility] [address] [place], [address] Hematocrit (Bld) [Volume fraction] 44.6 % Normal 40-54 [facility] Comment on above: Performed By: #### L 500.4050, L100.0100, L506.1000, L501.9520 #### [facility] [address] [place], [address] Hemoglobin (Bld) [Mass/Vol] 14.6 g/dL Normal 13.0-16.5 [facility] Comment on above: Performed By: #### L 500.4050, L100.0100, L506.1000, L501.9520 #### [facility] [address] [place], [address] IG% 0.300 Normal 0.0-0.9 [facility] Comment on above: Result Comment: IG% - Immature Granulocytes (promyelocytes, myelocytes and metamyelocytes) > 1% indicates that a LEFT SHIFT is Present. Performed By: #### L 500.4050, L100.0100, L506.1000, L501.9520 #### [facility] [address] [place], [address] Lymphocytes/100 WBC (Bld) 35.7 % Normal 19-41 [facility] Comment on above: Performed By: #### L 500.4050, L100.0100, L506.1000, L501.9520 #### [facility] [address] [place], [address] MCH (RBC) [Entitic mass] 30.0 pg Normal 27.0-32.0 [facility] Comment on above: Performed By: #### L 500.4050, L100.0100, L506.1000, L501.9520 #### [facility] [address] [place], [address] MCHC (RBC) [Mass/Vol] 32.7 g/dL Normal 32-36 [facility] Comment on above: Performed By: #### L 500.4050, L100.0100, L506.1000, L501.9520 #### [facility] [address] [place], [address] MCV (RBC) [Entitic vol] 91.6 fL Normal 80-94 [facility] Comment on above: Performed By: #### L 500.4050, L100.0100, L506.1000, L501.9520 #### [facility] [address] [place], [address] Monocytes/100 WBC (Bld) 5.8 % Normal 0-10 [facility] Comment on above: Performed By: #### L 500.4050, L100.0100, L506.1000, L501.9520 #### [facility] [address] [place], [address] Neutrophils/100 WBC (Bld) 57.2 % Normal 47-70 [facility] Comment on above: Performed By: #### L 500.4050, L100.0100, L506.1000, L501.9520 #### [facility] [address] [place], [address] Nucleated RBC (Bld) [#/Vol] 0 10*3/uL Normal 0-5 [facility] Comment on above: Performed By: #### L 500.4050, L100.0100, L506.1000, L501.9520 #### [facility] [address] [place], [address] Platelet mean volume (Bld) [Entitic vol] 9.1 fL Normal 6.2-12.0 [facility] Comment on above: Performed By: #### L 500.4050, L100.0100, L506.1000, L501.9520 #### [facility] [address] [place], [address] Platelets (Bld) [#/Vol] 148 10*3/uL Low 150-450 [facility] Comment on above: Performed By: #### L 500.4050, L100.0100, L506.1000, L501.9520 #### [facility] [address] [place], [address] RBC (Bld) [#/Vol] 4.87 10*6/uL Normal 4.6-6.2 [facility] Comment on above: Performed By: #### L 500.4050, L100.0100, L506.1000, L501.9520 #### [facility] [address] [place], [address] RDW SD 46.0 fl High 35.1-43.9 [facility] Comment on above: Performed By: #### L 500.4050, L100.0100, L506.1000, L501.9520 #### [facility] [address] [place], [address] WBC (Bld) [#/Vol] 5.9 10*3/uL Normal 4.4-11.0 [facility] Comment on above: Performed By: #### L 500.4050, L100.0100, L506.1000, L501.9520 #### [facility] [address] [place], [address] Comprehensive Metabolic Prof ilon 03-21-2024 Albumin [Mass/Vol] 3.7 g/dL Normal 3.2-5.0 [facility] Comment on above: Order Comment: VITD Performed By: #### L 500.4050, L100.0100, L506.1000, L501.9520 #### [facility] [address] [place], [address] Albumin/Globulin [Mass ratio] 1.2 {ratio} Normal 0.9-2.4 [facility] Comment on above: Order Comment: VITD Performed By: #### L 500.4050, L100.0100, L506.1000, L501.9520 #### [facility] [address] [place], [address] ALK P 103 U/L Normal 45-117 [facility] Comment on above: Order Comment: VITD Performed By: #### L 500.4050, L100.0100, L506.1000, L501.9520 #### [facility] [address] [place], [address] ALT [Catalytic activity/Vol] 28 U/L Normal 16-61 [facility] Comment on above: Order Comment: VITD Performed By: #### L 500.4050, L100.0100, L506.1000, L501.9520 #### [facility] [address] [place], [address] AST [Catalytic activity/Vol] 28 U/L Normal 15-37 [facility] Comment on above: Order Comment: VITD Result Comment: Mode rate Hemolysis, Result may be falsely increased. Performed By: #### L 500.4050, L100.0100, L506.1000, L501.9520 #### [facility] [address] [place], [address] Bilirubin [Mass/Vol] 1.00 mg/dL Normal 0.20-1.00 [facility] Comment on above: Order Comment: VITD Result Comment: For patients on eltrombopag therapy, use of Dimension [place] TBIL is not recommended. Performed By: #### L 500.4050, L100.0100, L506.1000, L501.9520 #### [facility] [address] [place], [address] BUN/CRE 14.3 RATIO Normal 10-20 [facility] Comment on above: Order Comment: VITD Performed By: #### L 500.4050, L100.0100, L506.1000, L501.9520 #### [facility] [address] [place], [address] CA,Total 9.1 mg/dL Normal 8.5-10.1 [facility] Comment on above: Order Comment: VITD Performed By: #### L 500.4050, L100.0100, L506.1000, L501.9520 #### [facility] [address] [place], [address] Chloride [Moles/Vol] 108 mmol/L High 98-107 [facility] Comment on above: Order Comment: VITD Performed By: #### L 500.4050, L100.0100, L506.1000, L501.9520 #### [facility] [address] [place], [address] CO2 [Moles/Vol] 25.0 mmol/L Normal 21.0-32.0 [facility] Comment on above: Order Comment: VITD Performed By: #### L 500.4050, L100.0100, L506.1000, L501.9520 #### [facility] [address] [place], [address] Creatinine [Mass/Vol] 1.05 mg/dL Normal 0.70-1.30 [facility] Comment on above: Order Comment: VITD Result Comment: The validity of the calculated GFR GFRAA in patients over 70 years has not been determined. Clinical correlation is essential. Performed By: #### L 500.4050, L100.0100, L506.1000, L501.9520 #### [facility] [address] [place], [address] EST GFR - AA 87 mL/min Normal >60 [facility] Comment on above: Order Comment: VITD Result Comment: Afri can [place] GFR Calc Performed By: #### L 500.4050, L100.0100, L506.1000, L501.9520 #### [facility] [address] [place], [address] GAP 5 Normal 5-15 [facility] Comment on above: Order Comment: VITD Performed By: #### L 500.4050, L100.0100, L506.1000, L501.9520 #### [facility] [address] [place], [address] GFR/1.73 sq M.predicted among non-blacks MDRD (S/P/Bld) [Vol rate/Area] 72 mL/min/{1.73_m2} Normal >60 [facility] Comment on above: Order Comment: VITD Result Comment: Non- GFR Calc Performed By: #### L 500.4050, L100.0100, L506.1000, L501.9520 #### [facility] [address] [place], [address] Globulin (S) [Mass/Vol] 3.0 g/dL Normal 2.2-4.2 [facility] Comment on above: Order Comment: VITD Performed By: #### L 500.4050, L100.0100, L506.1000, L501.9520 #### [facility] [address] [place], [address] Glucose [Mass/Vol] 100 mg/dL Normal 74-106 [facility] Comment on above: Order Comment: VITD Result Comment: Fast ing Glucose result from 100 to 125 mg/dL suggests IMPAIRED HOMEOSTASIS per A.D.A. criteria. Performed By: #### L 500.4050, L100.0100, L506.1000, L501.9520 #### [facility] [address] [place], [address] Potassium [Moles/Vol] 4.4 mmol/L Normal 3.5-5.1 [facility] Comment on above: Order Comment: VITD Result Comment: Mode rate Hemolysis, Result may be falsely increased. Performed By: #### L 500.4050, L100.0100, L506.1000, L501.9520 #### [facility] [address] [place], [address] Sodium [Moles/Vol] 138 mmol/L Normal 136-145 [facility] Comment on above: Order Comment: VITD Performed By: #### L 500.4050, L100.0100, L506.1000, L501.9520 #### [facility] [address] [place], [address] T PROT 6.7 g/dL Normal 6.4-8.2 [facility] Comment on above: Order Comment: VITD Performed By: #### L 500.4050, L100.0100, L506.1000, L501.9520 #### [facility] [address] [place], [address] Urea nitrogen [Mass/Vol] 15 mg/dL Normal 7-18 [facility] Comment on above: Order Comment: VITD Performed By: #### L 500.4050, L100.0100, L506.1000, L501.9520 #### [facility] [address] [place], [address] Thyroid Stim Hormone (TSH)on 03-21-2024 TSH 0.689 uIU/mL Normal 0.358-3.740 [facility] Comment on above: Order Comment: VITD Performed By: #### L 500.4050, L100.0100, L506.1000, L501.9520 #### [facility] [address] [place], [address] Vitamin D,25 Hydroxyon 03-21 Vitamin D 25-OH 14.9 ng/mL Normal [facility] Comment on above: Result Comment: Aixa min D 25(OH) Status Range Deficiency <20 ng/mL (50nmol/L) Insufficiency 20 - 30 ng/mL (50 - 75 nmol/L) Sufficiency 30 - 100 ng/mL (75 - 250 nmol/L) Toxicity >100 ng/mL (>250 nmol/L) Performed By: #### L 500.4050, L100.0100, L506.1000, L501.9520 #### [facility] [address] [place], [address] CREATININE FINGERSTICKon CREATININE WB < 1.0 Normal 0.70-1.30 [facility] Comment on above: Performed By: #### L 9100.0200 #### [facility] [address] [place], [address] EGFR WB > 60.0000 Normal >60 [facility] Comment on above: Performed By: #### L 9100.0200 #### [facility] [address] [place], [place], [address] CTA Chest W/WO Contraston CTA Chest W/WO Contrast [facility] Services [address] [place] [address] CTA Chest W/WO Contrast MR#: [id number] Acct: [id number] Name: VALENTINA CABRERA Rep #: [id number] : 1945 M 79 From: Rhett Esquivel MD PCP: Dr. Tre García MD Status: REG CLI Study: CTA Chest W/WO Contrast Date of Exam: 02/28/24 Exam# [id number] Ordering Dr: Tre García MD [id number] STUDY: CTA CHEST REASON FOR EXAM: Male, 79 years old. Shortness of breath, PE RADIATION DOSAGE (If Supplied By Facility): CTDIvol = ( 12.43 ) mGy, DLP = ( 587.12 ) mGycm TECHNIQUE: The examination was performed with the intravenous administration of IV 100mL Isovue-370. Post-processing of the angiographic images was performed, with multiplanar reformation and 3D reconstruction. Individualized dose optimization techniques were used for this CT. COMPARISON: None. FINDINGS: Normal enhancement of the main pulmonary artery and right and left pulmonary arteries. Normal enhancement of the bilateral peripheral pulmonary arteries. There is no demonstrated pulmonary embolism. There is aneurysmal dilatation of the ascending aorta. The transverse diameter of the ascending aorta measures 41 mm''s. There is no demonstrated aortic dissection. Normal heart and pericardium. Normal mediastinum. Normal hilar regions. Normal visualized trachea and bronchi. The lungs are well expanded. There is mid and lower lung atelectasis. There are left lower lobe granulomas. Normal pleura. Normal chest wall structures. There are degenerative changes of thoracic spine. Normal visualized upper abdomen. CT/CTA Chest W/WO Contrast IMPRESSION: CTA chest examination, without a demonstrated pulmonary embolism or arterial dissection. Aneurysmal dilatation of the ascending aorta. Mid and lower lung atelectasis. Electronically Signed: Rhett Esquivel MD at 19:20 EDT , CC: Dr. Tre García MD Production Planner: Signed Normal [facility] XR Chest PA and Lateralon IMPRESSION: No acute radiographic abnormality. Production Planner: TASHI Transcribe Date/Time: Feb 24 2024 6:45A Dictated by : TIBURCIO CORTES MD This examination was interpreted and the report reviewed and electronically signed by: TIBURCIO CORTES MD on Feb 24 2024 6:47AM [facility] OF RADIOLOGY * * *Final Report* [...] fractures IMPRESSION IMPRESSION: No acute radiographic abnormality. Production Planner: PSCB Transcribe Date/Time: Feb 24 2024 6:45A Dictated by : TIBURCIO CORTES MD This examination was interpreted and the report reviewed and electronically signed by: TIBURCIO CORTES MD on Feb 24 2024 6:47AM EST [facility] XR Chest PA and LateralOrder ed By: [facility] Provider on 02-24-2024 [facility] CNOVon 02-23-2024 CNOV Office Visit (PULMWS ) VALENTINA CABRERA ([id number]) 1945 M Date Time Provider Department 02/23/24 1:30 PM [facility]EC[facility] FIERRO PULMWS During your visit today, we recorded the following information about you: Becky Fierro, PA-C 02/23/2024 2:17 PM Signed Patient: Valentina Cabrera PCP: Tre García MD [...] needed albuterol. 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 (current) use of inhaled steroids Lumbar discogenic [...] two times a day.Disp: 3 EachRfl: 3 omeprazole (PRILOSEC) 40 mg capsuleTake 1 capsule [...] COVID-19 original vaccine, age 12+ yr, monovalent (PFIZER-BIONTECH - [place] TOP) 08/29/2021 COVID-19 original vaccine, age 12+ yr, monovalent (PFIZER-BIONTECH - [place]PLE TOP) 07/26/2020 08/16/2020 02/21/2021 COVID-19 vaccine, age 12+ yr (PFIZER-BIONTECH) 02/22/2023 08/20/2023 COVID-19 vaccine, age 12+ yr, bivalent (PFIZER-BIONTECH) 03/13/2022 diphtheria tetanus (DT) vaccine, pediatric 11/02/1996 influenza (HD-IIV3) vaccine, age 65+ yr, high dose, trivalen (more content not included)... Normal [facility] XR CHEST 2V FRONTAL/LATon XR CHEST 2V FRONTAL/LAT * * *Final Repor t* * * DATE OF EXAM: Feb 23 2024 1:53PM [id number] [id number] - XR CHEST 2V FRONTAL/LAT / PROCEDURE REASON: Acute cough * * * * Physician Interpretation * * * * EXAMINATION: CHEST RADIOGRAPH (2 VIEW FRONTAL and LATERAL) CLINICAL HISTORY: Acute cough MQ: [id number] EXAM DATE/TIME: 02/23/2024 1:53 PM COMPARISON: 08/19/2022 and 05/11/2022 RESULT: Lines, tubes, and devices: None. Lungs and pleura: No consolidation. No lung mass. No pleural effusion. No pneumothorax. Stable elevation of the right hemidiaphragm Cardiomediastinal silhouette: Stable cardiomediastinal silhouette. The aorta is unfolded and ectatic. Bones and soft tissues: Healed right rib fractures IMPRESSION: No acute radiographic abnormality. Production Planner: TASHI Transcribe Date/Time: Feb 24 2024 6:45A Dictated by : TIBURCIO CORTES MD This examination was interpreted and the report reviewed and electronically signed by: TIBURCIO CORTES MD on Feb 24 2024 6:47AM EST [id number] N Normal [facility] XR Chest PA and Lateralon Radiology Study observation (narrative) [facility] M100.678on 02-15-2024 SARS-CoV-2 (COVID-19) Ab IA Ql FLUABV+SARS-CoV-2+RSV Pnl Resp GRACE+probe Copy of report sent to [facility]fection [facility] [id number] 02/15/24 1643 MDREXLER. SARS-CoV-2 (COVID 19) A Positive A INFLUENZA A Negative INFLUENZA B Negative RSV PCR Negative SARS-CoV-2 (COVID 19 PCR) Normal [facility] Comment on above: Performed By: #### L 500.4050, L100.0100, L506.1000, L501.9520 #### [facility] [address] [place], [address] M100.678on 02-08-2024 M100.678 Copy of report sent to [facility] [id number] 02/08/24 1250 JEFFERY. SARS-CoV-2 (COVID 19) A Positive A INFLUENZA A Negative INFLUENZA B Negative RSV PCR Negative SARS-CoV-2 (COVID 19 PCR) Normal [facility] Comment on above: Performed By: #### L 500.4050, L100.0100, L506.1000, L501.9520 #### [facility] [address] [place], [address] CNOVon 01-29-2024 CNOV Office Visit ([facility] ) VALENTINA CABRERA ([id number]) 1945 M Date Time Provider Department 01/29/24 12:45 PM FER RUELAS [facility] During your visit today, we recorded the following information about you: Temperature Pulse Respiration Blood pressure 98.4 degrees 96/minute 18/minute 138/72 Weight 88.6 kg Fer Ruelas PA 01/29/2024 12:49 PM Signed This note was created using Q Interactiveter. Subjective Valentina Cabrera is a 79 year old male. HPI 79-year-old male presents for cough, congestion x 1 day. Patient states yesterday he started getting cough, sore throat, nasal congestion and chest congestion. He is was recently sick with similar symptoms as well as his grandson. Patient states he has a low-grade fever yesterday. No fever today. He has not taken anything [id number] for symptoms. He does have history of [...] lower urinary tract symptoms (LUTS) No date: rn long term care (current) use of inhaled steroids 06/05/2010: Lumbar [...] OF Comment: BCC removed by Dr.Robert Naqvi 2003: PAST SURGICAL HISTORY OF Comment: Premalignant lesion [...] (more content not included)... Normal [facility] COVID AND INFLUENZA A/B AND RSV PCR, ROUTINEon 01-29-2024 SARS-CoV-2 (COVID-19) RNA GRACE+probe Ql (Unsp spec) SARS-COV-2 (AGENT OF COVID-19) RNA: Detected INFLUENZA A RNA: Not detected INFLUENZA B RNA: Not detected RESPIRATORY SYNCYTIAL VIRUS (RSV) RNA: Not detected Abnormal [facility] Comment on above: Performed By: #### C VFLRS #### [facility] CLIA [id number] [address] [place] [address] STATES OF [facility] Wound Ctr History AND Physic romulo 01-03-2024 Wound Ctr History & Physical [facility] [address] [place] [address] H P Exam - Wound Care 01/03/24 1506 MR#: [id number] Acct: [id number] Name: VALENTINA CABRERA Rep #: [id number] : 1945 78 From: Rosario Saleem NP PEDIATRIC DERMATOLOGIST-C PCP: Dr. Tre García MD Status:REG RCR Location: History of Present Illness Date of Service: 01/03/24 Chief Complaint: Left forearm skin tear History of Wound: 78-year-old male fell and bumped his right forearm 8 days ago. He developed a skin tear. He went to see his PCP Dr. García who gave him a shot of antibiotics. He has been covering this wound with Adaptic and gauze. He states that it has started to heal well over the past couple days. He had another skin tear in the past few months so he cared for this wound the way he cared for the previous wound. He denies any fever, chills, nausea, vomiting. Progress of Wound: Right forearm skin tear that is healing well. The wound is a cluster, with pink granulation tissue present. [facility] Medical History Anxiety Lower urinary tract symptoms (LUTS) Constipation Chronic low back pain BPH (benign prostatic hyperplasia) Hyperlipidemia Depression SOB (shortness of breath) Asthma COVID-19 Hypertension GERD (gastroesophageal reflux disease) Home Medications ???Medication ???Instructions ???Recorded ???Last Taken ???Type polyethylene glycol 3350 17 gram 17 g PO DAILY PRN Constipation 04/19/13 04/19/13 07:00 History oral powder packet lisinopril 5 mg tablet 5 mg PO DAILY 08/28/20 Unknown History tamsulosin 0.4 mg capsule 0.4 mg PO QHS 06/16/21 Unknown History albuterol sulfate 90 mcg/actuation 2 inh inhalation Q6H PRN shortness 05/06/23 Unknown History breath activated powder inhaler of breath mometasone-formoterol HFA 200 2 puff inhalation BID 05/06/23 Unknown History mcg-5 mcg/actuation aerosol inhaler (Dulera) montelukast 10 mg tablet 10 mg PO DAILY 05/06/23 Unknown History nortriptyline 50 mg capsule 50 mg PO BID 06/02/23 Unknown History omeprazole 10 mg capsule,delayed 40 mg PO DAILY 06/02/23 Unknown History release Allergy/AdvReac Type Severity Reaction Status Date / Time No Known Allergies Allergy Verified 01/03/24 14:15 Family History (Reviewed 01/04/24 @ 16:57 by Rosario Saleem PEDIATRIC DERMATOLOGIST, PEDIATRIC DERMATOLOGIST-C) Mother Depression CVA (cerebral vascular accident) Anxiety Hypertension Father Pancreatic cancer Surgical History (Reviewed 01/04/24 @ 16:57 by Rosario Saleem PEDIATRIC DERMATOLOGIST, PEDIATRIC DERMATOLOGIST-C) Hx of cataract extraction Social History (Reviewed 01/04/24 @ 16:57 by Rosario Saleem PEDIATRIC DERMATOLOGIST, PEDIATRIC DERMATOLOGIST-C) Smoking Status: Former smoker alcohol intake: never substance use type: does not use ROS Constitutional Constitutional: Reports systems reviewed and no addt'l complaints, except as documented Eyes Eyes: Reports systems reviewed and no addt'l complaints, except as documented ENT HEENT: Reports systems reviewed and no addt'l complaints, except as documented Cardiovascular Cardiovascular: Denies chest pain or dyspnea Respiratory/Chest Respiratory/Chest: Reports none Gastrointestinal Gastrointestinal: Reports systems reviewed and no addt'l complaints, except as documented Genitourinary Genitourinary: Reports systems reviewed and no addt'l complaints, except as documented Musculoskeletal Musculoskeletal: Reports systems reviewed and no addt'l complaints, except as documented Integumentary Integumentary: Reports wounds Neurologic Neurologic: Reports systems reviewed and no addt'l complaints, except as documented Psychiatric Psychiatric: Reports systems reviewed and no addt'l complaints, except as documented Vital Signs Vital Signs Vital Signs: 01/03/24 14:10 Temperature 96.6 F L Temperature Source Temporal Pulse Rate 98 Respiratory Rate 18 Blood Pressure 124/69 H Blood Pressure Mean 87 Blood Pressure Source Monitor Weight Weight: 189 lb 10.778 oz Body Mass Index (BMI) 28.8 Physical Exam Const alert, oriented x3 and no apparent distress General Appearance: cooperative and well kempt HEENT normocephalic Head and Scalp: atraumatic Eyes General Eye: normal appearance of both eyes Neck full ROM Resp normal respiratory effort, normal air movement and clear to auscultation bilaterally Effort and Inspection: able to speak in complete sentences Cardio regular rate and regular rhythm GI soft to palpation and non-tender Extremity full ROM and normal capillary refill Peripheral Pulses: Yes pulses 2+ throughout Skin Wound Narrative: Right forearm skin tear/wound cluster. Base is beefy pink, superficial. Neuro oriented x3 Psych mental status grossly normal, thought process normal, cooperative and affect normal Debridement N (more content not included)... Normal [facility] Culture, Anaerobic Any Sourc lynsey 01-01-2024 CUAN No growth in 5 days. Normal [facility] Comment on above: Performed By: #### L 500.4050, L100.0100, L506.1000, L501.9520 #### [facility] [address] [place], [address] Wound Cultureon 12-29-2023 WC No growth aerobically. Normal [facility] Comment on above: Performed By: #### L 500.4050, L100.0100, L506.1000, L501.9520 #### [facility] [address] [place], [address] Gram Stainon 12-27-2023 GS Gram Stain No organisms seen Normal [facility] Comment on above: Performed By: #### L 500.4050, L100.0100, L506.1000, L501.9520 #### [facility] [address] [place], [address] MRSA Wound DNA by PCRon 11-29 MRSA DNA ASSAY Negative Normal Negative [facility] Comment on above: Order Comment: RIGHT ARM Performed By: #### L 500.4050, L100.0100, L506.1000, L501.9520 #### [facility] [address] [place], [address] SA DNA ASSAY Negative Normal Negative [facility] Comment on above: Order Comment: RIGHT ARM Performed By: #### L 500.4050, L100.0100, L506.1000, L501.9520 #### [facility] [place], [address] CNOVon 11-09-2023 CNOV Office Visit (PULMWS ) VALENTINA CABRERA ([id number]) 1945 M Date Time Provider Department 11/09/23 10:30 AM GENIE BUSTAMANTE PULMPRANAY During your visit today, we recorded the following information about you: Pulse Respiration Weight 83/minute 15/minute 86.6 kg Genie Bustamante MD 11/09/2023 11:28 AM Signed . Respiratory Burton Note Patient name: Valentina Cabrera PCP: Jd Solis MD CC: Follow-up HPI: Valentina Cabrera [...] other lower urinary tract symptoms (LUTS) 07/05/2007 [facility] (current) use of inhaled steroids Lumbar discogenic [...] (more content not included)... Normal [facility] Absolute lymphocyte countOrd ered By: Tre García on 09-20-2023 Lymphocytes Auto (Unsp spec) [#/Vol] 2.35 10*3/uL 0.83-4.51 [facility] Automated lymphocyte count a s percentage of total leukocytesOrdered By: Tre García on 09-20-2023 Lymphocytes/100 WBC Auto (Unsp spec) 32.2 % 19-41 [facility] Basophil percentageOrdered B y: Tre García on 09-20-2023 Basophils/100 WBC (Bld) 0.3 % 0-1 [facility] Bilirubin [Mass/Vol] 0.70 mg/dL 0.20-1.00 [facility] Comment on above: For patients on eltr ombopag therapy, use of Dimension Casper TBIL is not recommended. Chloride [Moles/Vol] 110 mmol/L 98-107 [facility] Eosinophils/100 WBC (Bld) 0.1 % 0-5 [facility] Glucose [Mass/Vol] 96 mg/dL 74-106 [facility] Hemoglobin (Bld) [Mass/Vol] 15.5 g/dL 13.0-16.5 [facility] Monocytes/100 WBC (Bld) 5.6 % 0-10 [facility] Neutrophils (Bld) [#/Vol] 4.5 10*3/uL 2.0-7.7 [facility] Neutrophils/100 WBC (Bld) 61.5 % 47-70 [facility] Potassium [Moles/Vol] 4.4 mmol/L 3.5-5.1 [facility] Protein [Mass/Vol] 6.8 g/dL 6.4-8.2 [facility] Sodium [Moles/Vol] 139 mmol/L 136-145 [facility] WBC (Bld) [#/Vol] 7.3 10*3/uL 4.4-11.0 [facility] Determination of erythrocyte mean corpuscular volume (MCV)Ordered By: Tre García on 09-20-2023 MCV (RBC) [Entitic vol] 90.5 fL 80-94 [facility] Erythrocyte distribution wid th ratioOrdered By: [facility] Ricky 09-20-2023 Erythrocyte distribution width (RBC) [Ratio] 13.2 % 11.6-14.6 [facility] Erythrocyte distribution wid th standard deviationOrdered By: [facility] 09-20-2023 Erythrocyte distribution width (RBC) [Entitic vol] 44.3 fL 35.1-43.9 [facility] Hematocrit Auto (Bld) [Volum e fraction]Ordered By: Tre Ricky 09-20-2023 Hematocrit (Bld) [Volume fraction] 46.7 % 40-54 [facility] Immature granulocytes/100 WB C Auto (Bld)Ordered By: Tre García 09-20-2023 Immature granulocytes/100 WBC (Bld) 0.300 % 0.0-0.9 [facility] Comment on above: IG% - Immature Granu locytes (promyelocytes, myelocytes and metamyelocytes) > 1% indicates that a LEFT SHIFT is Present. Laboratory - Chemistry and C hemistry - challengeOrdered By: Tre García 09-20-2023 Albumin/Globulin [Mass ratio] 1.3 {ratio} 0.9-2.4 [facility] ALP [Catalytic activity/Vol] 100 U/L 45-117 [facility] ALT [Catalytic activity/Vol] 27 U/L 16-61 [facility] CO2 [Moles/Vol] 22.0 mmol/L 21.0-32.0 [facility] Globulin (S) [Mass/Vol] 2.9 g/dL 2.2-4.2 [facility] Urea nitrogen/Creatinine [Mass ratio] 15.0 mg/mg 10-20 [facility] - Hematology and Cell countsOrdered By: Tre García on 09-20-2023 MCH (RBC) [Entitic mass] 30.0 pg 27.0-32.0 [facility] MCHC (RBC) [Mass/Vol] 33.2 g/dL 32-36 [facility] Nucleated RBC/100 WBC (Bld) [Ratio] 0 % 0-5 [facility] Platelet mean volume (Bld) [Entitic vol] 9.5 fL 6.2-12.0 [facility] Platelets (Bld) [#/Vol] 165 10*3/uL 150-450 [facility] No Panel InformationOrdered By: Tre García on 09-20-2023 Estimated GFR (MDRD) Amer 80 mL/min >60 [facility] Comment on above: GFR Calc Estimated GFR (MDRD) Non-Af Amer 66 mL/min >60 [facility] Comment on above: Non- GFR Calc Prostate Specific Antigen Screen 0.16 ng/mL 0.00-4.00 [facility] Comment on above: This test was perfor med using the TPSA assay method for the[facility] chemistry system. Values obtained with differentassay methods cannot be used interchangably.When changing PSA assays in the course of monitoring apatient, additional sequential testing should be carriedout to confirm baseline values. Vitamin D 25-Hydroxy 23.5 ng/mL [facility] Comment on above: Vitamin D 25(OH) Sta tus Range Deficiency <20 ng/mL (50nmol/L) Insufficiency 20 - 30 ng/mL (50 - 75 nmol/L) Sufficiency 30 - 100 ng/mL (75 - 250 nmol/L) Toxicity >100 ng/mL (>250 nmol/L) RBC Auto (Bld) [#/Vol]Ordere d By: Tre García on 09-20-2023 RBC (Bld) [#/Vol] 5.16 10*6/uL 4.6-6.2 [facility] Serum or plasma calcium patti urement (mass/volume)Ordered By: Tre García on 09-20-2023 Calcium [Mass/Vol] 8.7 mg/dL 8.5-10.1 [facility] Serum or plasma creatinine m easurement (mass/volume)Ordered By: Tre García on 09-20-2023 Creatinine [Mass/Vol] 1.13 mg/dL 0.70-1.30 [facility] Comment on above: The validity of the calculated GFR & GFRAA in patients over 70 years has not been determined. Clinical correlation is essential. Serum or plasma thyroid stim ulating hormone (TSH) measurement (units/volume)Ordered By: Tre García on 09-20-2023 TSH Qn 1.23 uIU/mL 0.358-3.74 [facility] Serum or plasma urea nitroge n measurement (mass/volume)Ordered By: Tre García on 09-20-2023 Urea nitrogen [Mass/Vol] 17 mg/dL 7-18 [facility] Thin prep Papanicolaou smear with manual screeningOrdered By: Tre García on 09-20-2023 Thin prep Papanicolaou smear with manual screening 3.9 g/dL 3.2-5.0 [facility] Thin prep Papanicolaou smear with manual screening 22 U/L 15-37 [facility] Thin prep Papanicolaou smear with manual screening 7 5-15 [facility] Absolute lymphocyte countOrd ered By: Joe Lisa on 08-15-2023 Lymphocytes Auto (Unsp spec) [#/Vol] 3.24 10*3/uL 0.83-4.51 [facility] Automated lymphocyte count a s percentage of total leukocytesOrdered By: Joe Lisa on 08-15-2023 Lymphocytes/100 WBC Auto (Unsp spec) 42.7 % 19-41 [facility] Basophil percentageOrdered B y: Mary Carmenus Maria L on 08-15-2023 Basophils/100 WBC (Bld) 0.1 % 0-1 [facility] Chloride [Moles/Vol] 114 mmol/L 98-107 [facility] Eosinophils/100 WBC (Bld) 0.0 % 0-5 [facility] Glucose [Mass/Vol] 134 mg/dL 74-106 [facility] Comment on above: Fasting Glucose resu lt greater than or equal to 126 mg/dL suggests DIABETES MELLITUS per A.D.A. criteria. Hemoglobin (Bld) [Mass/Vol] 16.0 g/dL 13.0-16.5 [facility] Monocytes/100 WBC (Bld) 4.3 % 0-10 [facility] Neutrophils (Bld) [#/Vol] 4.0 10*3/uL 2.0-7.7 [facility] Neutrophils/100 WBC (Bld) 52.6 % 47-70 [facility] Potassium [Moles/Vol] 4.4 mmol/L 3.5-5.1 [facility] Sodium [Moles/Vol] 142 mmol/L 136-145 [facility] WBC (Bld) [#/Vol] 7.6 10*3/uL 4.4-11.0 [facility] Determination of erythrocyte mean corpuscular volume (MCV)Ordered By: Joe Lisa on 08-15-2023 MCV (RBC) [Entitic vol] 90.7 fL 80-94 [facility] Erythrocyte distribution wid th ratioOrdered By: Bighorn Maria L on 08-15-2023 Erythrocyte distribution width (RBC) [Ratio] 13.2 % 11.6-14.6 [facility] Erythrocyte distribution wid th standard deviationOrdered By: Bighorn Maria L on 08-15-2023 Erythrocyte distribution width (RBC) [Entitic vol] 44.4 fL 35.1-43.9 [facility] Hematocrit Auto (Bld) [Volum e fraction]Ordered By: [facility] 08-15-2023 Hematocrit (Bld) [Volume fraction] 47.6 % 40-54 [facility] Immature granulocytes/100 WB C Auto (Bld)Ordered By: [facility] on 08-15-2023 Immature granulocytes/100 WBC (Bld) 0.300 % 0.0-0.9 [facility] Comment on above: IG% - Immature Granu locytes (promyelocytes, myelocytes and metamyelocytes) > 1% indicates that a LEFT SHIFT is Present. Laboratory - Chemistry and C hemistry - challengeOrdered By: Joe Lisa on 08-15-2023 CO2 [Moles/Vol] 23.0 mmol/L 21.0-32.0 [facility] Urea nitrogen/Creatinine [Mass ratio] 15.0 mg/mg 10-20 [facility] - Hematology and Cell countsOrdered By: Joe Lisa on 08-15-2023 MCH (RBC) [Entitic mass] 30.5 pg 27.0-32.0 [facility] MCHC (RBC) [Mass/Vol] 33.6 g/dL 32-36 [facility] Nucleated RBC/100 WBC (Bld) [Ratio] 0 % 0-5 [facility] Platelet mean volume (Bld) [Entitic vol] 8.9 fL 6.2-12.0 [facility] Platelets (Bld) [#/Vol] 156 10*3/uL 150-450 [facility] No Panel InformationOrdered By: Joe Lisa on 08-15-2023 Estimated GFR (MDRD) Amer 93 mL/min >60 [facility] Comment on above: GFR Calc Estimated GFR (MDRD) Non-Af Amer 77 mL/min >60 [facility] Comment on above: Non- GFR Calc RBC Auto (Bld) [#/Vol]Ordere d By: Joe Lisa on 08-15-2023 RBC (Bld) [#/Vol] 5.25 10*6/uL 4.6-6.2 [facility] Serum or plasma calcium patti urement (mass/volume)Ordered By: Joe Lisa on 08-15-2023 Calcium [Mass/Vol] 8.7 mg/dL 8.5-10.1 [facility] Serum or plasma creatinine m easurement (mass/volume)Ordered By: Joe Lisa on 08-15-2023 Creatinine [Mass/Vol] 1.00 mg/dL 0.70-1.30 [facility] Comment on above: The validity of the calculated GFR & GFRAA in patients over 70 years has not been determined. Clinical correlation is essential. Serum or plasma urea nitroge n measurement (mass/volume)Ordered By: Joe Lisa on 08-15-2023 Urea nitrogen [Mass/Vol] 15 mg/dL 7-18 [facility] Thin prep Papanicolaou smear with manual screeningOrdered By: Mary Carmen Maria L on 08-15-2023 Thin prep Papanicolaou smear with manual screening 5 5-15 [facility] Absolute lymphocyte countOrd ered By: Tre García on 07-02-2023 Lymphocytes Auto (Unsp spec) [#/Vol] 3.29 10*3/uL 0.83-4.51 [facility] Automated lymphocyte count a s percentage of total leukocytesOrdered By: Tre García on 07-02-2023 Lymphocytes/100 WBC Auto (Unsp spec) 37.7 % 19-41 [facility] Basophil percentageOrdered B y: Tre García on 07-02-2023 Basophils/100 WBC (Bld) 0.2 % 0-1 [facility] Bilirubin [Mass/Vol] 0.90 mg/dL 0.20-1.00 [facility] Comment on above: For patients on eltr ombopag therapy, use of Dimension [place]per TBIL is not recommended. Chloride [Moles/Vol] 110 mmol/L 98-107 [facility] Eosinophils/100 WBC (Bld) 0.5 % 0-5 [facility] Glucose [Mass/Vol] 103 mg/dL 74-106 [facility] Comment on above: Fasting Glucose resu lt from 100 to 125 mg/dL suggests IMPAIRED HOMEOSTASIS per A.D.A. criteria. Hemoglobin (Bld) [Mass/Vol] 15.6 g/dL 13.0-16.5 [facility] Monocytes/100 WBC (Bld) 5.2 % 0-10 [facility] Neutrophils (Bld) [#/Vol] 4.9 10*3/uL 2.0-7.7 [facility] Neutrophils/100 WBC (Bld) 56.1 % 47-70 [facility] Potassium [Moles/Vol] 4.5 mmol/L 3.5-5.1 [facility] Protein [Mass/Vol] 6.7 g/dL 6.4-8.2 [facility] Sodium [Moles/Vol] 139 mmol/L 136-145 [facility] WBC (Bld) [#/Vol] 8.7 10*3/uL 4.4-11.0 [facility] 07-02-2023 CNPN Telephone (PULCariWS) VALENTINA CABRERA ([id number]) 1945 M Date Time Provider Department 07/02/23 [...] and needs 90 day supply sent to [facility] but needs [facility] get [facility] He has some of the Dulera 100 [...] Problem [65] Visit Diagnosis:Cough variant asthma [J45.991] Order(s):mometasone-f ormoterol (DULERA) 200-5 mcg/actuation inhalerInhale 2 Puffs as [...] in full re*06/25/2021 Moderate persistent asthma without complication*05/13/20 22 Prescriptions ordered this encounter Disp Refills Start End DULERA 200 MCG-5 MCG/ACTUATION HFA A* 1 Ea* 0 07/02/2023 Route: INHALATION Sig: Inhale 2 Puffs as instructed two times a day. MOMETASONE-FORMOTEROL HFA 200 MCG-5 * 3 Ea* 3 07/02/2023 Route: INHALATION Sig: Inhale 2 Puffs as instructed two times a day. Medications Discontinued During This Encounter Prescriptions - fluticasone-salmetero l HFA (ADVAIR HFA) 230-21 mcg/actuation inhaler (Discontinued) Inhale 2 Puffs as instructed two times a day. Encounter Status:Closed by BECKY FIERRO on 07/02/23 [facility] Determination of erythrocyte mean corpuscular volume (MCV)Ordered By: Tre García on 07-02-2023 MCV (RBC) [Entitic vol] 90.8 fL 80-94 [facility] Erythrocyte distribution wid th ratioOrdered By: Tre García on 07-02-2023 Erythrocyte distribution width (RBC) [Ratio] 13.2 % 11.6-14.6 [facility] Erythrocyte distribution wid th standard deviationOrdered By: Tre García on 07-02-2023 Erythrocyte distribution width (RBC) [Entitic vol] 44.0 fL 35.1-43.9 [facility] Hematocrit Auto (Bld) [Volum e fraction]Ordered By: Tre García on 07-02-2023 Hematocrit (Bld) [Volume fraction] 47.3 % 40-54 [facility] Immature granulocytes/100 WB C Auto (Bld)Ordered By: [facility] Immature granulocytes/100 WBC (Bld) 0.300 % 0.0-0.9 [facility] Comment on above: IG% - Immature Granu locytes (promyelocytes, myelocytes and metamyelocytes) > 1% indicates that a LEFT SHIFT is Present. Laboratory - Chemistry and C hemistry - challengeOrdered By: Tre García on 07-02-2023 Albumin/Globulin [Mass ratio] 1.3 {ratio} 0.9-2.4 [facility] ALP [Catalytic activity/Vol] 107 U/L 45-117 [facility] ALT [Catalytic activity/Vol] 32 U/L 16-61 [facility] CO2 [Moles/Vol] 26.0 mmol/L 21.0-32.0 [facility] Globulin (S) [Mass/Vol] 2.9 g/dL 2.2-4.2 [facility] Urea nitrogen/Creatinine [Mass ratio] 13.9 mg/mg 10-20 [facility] Laboratory - Hematology and Cell countsOrdered By: Tre García 07-02-2023 MCH (RBC) [Entitic mass] 29.9 pg 27.0-32.0 [facility] MCHC (RBC) [Mass/Vol] 33.0 g/dL 32-36 [facility] Nucleated RBC/100 WBC (Bld) [Ratio] 0 % 0-5 [facility] Platelets (Bld) [#/Vol] 162 10*3/uL 150-450 [facility] No Panel InformationOrdered By: Tre García on 07-02-2023 Estimated GFR (MDRD) Amer 100 mL/min >60 [facility] Comment on above: GFR Calc Estimated GFR (MDRD) Non-Af Amer 83 mL/min >60 [facility] Comment on above: Non- GFR Calc Platelet mean volume Skip-Ec ker (Bld) [Entitic vol]Ordered By: Tre García on 07-02-2023 Platelet mean volume (Bld) [Entitic vol] 9.5 fL 6.2-12.0 [facility] RBC Auto (Bld) [#/Vol]Ordere d By: Tre García on 07-02-2023 RBC (Bld) [#/Vol] 5.21 10*6/uL 4.6-6.2 [facility] Serum or plasma calcium patti urement (mass/volume)Ordered By: Tre García on 07-02-2023 Calcium [Mass/Vol] 9.2 mg/dL 8.5-10.1 [facility] Serum or plasma creatinine m easurement (mass/volume)Ordered By: Tre García on 07-02-2023 Creatinine [Mass/Vol] 0.94 mg/dL 0.70-1.30 [facility] Comment on above: The validity of the calculated GFR & GFRAA in patients over 70 years has not been determined. Clinical correlation is essential. Serum or plasma thyroid stim ulating hormone (TSH) measurement (units/volume)Ordered By: Tre García on 07-02-2023 TSH Qn 1.30 uIU/mL 0.358-3.74 [facility] Serum or plasma urea nitroge n measurement (mass/volume)Ordered By: Tre García on 07-02-2023 Urea nitrogen [Mass/Vol] 13 mg/dL 7-18 [facility] Thin prep Papanicolaou smear with manual screeningOrdered By: Tre García on 07-02-2023 Thin prep Papanicolaou smear with manual screening 3.8 g/dL 3.2-5.0 [facility] Thin prep Papanicolaou smear with manual screening 19 U/L 15-37 [facility] Thin prep Papanicolaou smear with manual screening 3 5-15 [facility] Laboratory - Chemistry and C hemistry - challengeOrdered By: Chacho Mcghee on 06-02-2023 Natriuretic peptide B (Bld) [Mass/Vol] 40.9 pg/mL 0-100 [facility] MIPS/MEPSon 04-19-2023 [facility] SPIROMETRY BASELINE ONLYon 1 06-19-2022 AUQ33-12% PRE (L/S) 1.25 L/S [facility] FEV1 PRE (L) 2.73 L [facility] FEV1/FVC PRE (%) 67 % [facility] FVC PRE (L) 4.09 L [facility] MEP PRE (cmH2O) 112.80 [facility]O [facility] MIP PRE (cmH2O) -104.06 cmH2O [facility] PEF PRE (L/S) 7.39 L/S [facility] Laboratory - Microbiology an d Antimicrobial susceptibilityOrdered By: Tre García on 04-08-2023 SARS-CoV-2 (COVID-19) RNA GRACE+probe Ql (Unsp spec) [facility] No Panel InformationOrdered By: Tre García on 04-08-2023 Influenza Types A,B Direct FA (DAMARI) [facility] RSV Ag EIAOrdered By: Tre plascencia on 04-08-2023 RSV Ag Immune stain Ql (Tiss) [facility] Absolute lymphocyte countOrd ered By: Tre García on 03-18-2023 Lymphocytes Auto (Unsp spec) [#/Vol] 3.40 10*3/uL 0.83-4.51 [facility] Basophil percentageOrdered B y: Tre García on 03-18-2023 Basophils/100 WBC (Bld) 0.4 % 0-1 [facility] Bilirubin [Mass/Vol] 0.50 mg/dL 0.20-1.00 [facility] Comment on above: For patients on eltr ombopag therapy, use of Dimension [place] TBIL is not recommended. Chloride [Moles/Vol] 111 mmol/L 98-107 [facility] Eosinophils/100 WBC (Bld) 0.6 % 0-5 [facility] Glucose [Mass/Vol] 102 mg/dL 74-106 [facility] Comment on above: Fasting Glucose resu lt from 100 to 125 mg/dL suggests IMPAIRED HOMEOSTASIS per A.D.A. criteria. Neutrophils (Bld) [#/Vol] 4.3 10*3/uL 2.0-7.7 [facility] Neutrophils/100 WBC (Bld) 51.6 % 47-70 [facility] Potassium [Moles/Vol] 4.2 mmol/L 3.5-5.1 [facility] Protein [Mass/Vol] 7.0 g/dL 6.4-8.2 [facility] Sodium [Moles/Vol] 141 mmol/L 136-145 [facility] WBC (Bld) [#/Vol] 8.4 10*3/uL 4.4-11.0 [facility] Blood erythrocytes count (nu mber/volume)Ordered By: Tre García on 03-18-2023 RBC (Bld) [#/Vol] 5.36 10*6/uL 4.6-6.2 [facility] Blood hemoglobin measurement (mass/volume)Ordered By: Tre García on 03-18-2023 Hemoglobin (Bld) [Mass/Vol] 16.3 g/dL 13.0-16.5 [facility] Blood lymphocytes/100 leukoc ytesOrdered By: Tre García on 03-18-2023 Lymphocytes/100 WBC (Bld) 40.7 % 19-41 [facility] Blood monocytes/100 leukocyt esOrdered By: Tre García on 03-18-2023 Monocytes/100 WBC (Bld) 6.3 % 0-10 [facility] Blood platelet mean volumeOr dered By: Tre García on 03-18-2023 Platelet mean volume (Bld) [Entitic vol] 8.9 fL 6.2-12.0 [facility] Determination of erythrocyte mean corpuscular volume (MCV)Ordered By: Tre García on 03-18-2023 MCV (RBC) [Entitic vol] 90.1 fL 80-94 [facility] Hematocrit Auto (Bld) [Volum e fraction]Ordered By: Tre García on 03-18-2023 Hematocrit (Bld) [Volume fraction] 48.3 % 40-54 [facility] Laboratory - Chemistry and C hemistry - challengeOrdered By: Tre García on 03-18-2023 ALP [Catalytic activity/Vol] 111 U/L 45-117 [facility] ALT [Catalytic activity/Vol] 32 U/L 16-61 [facility] CO2 [Moles/Vol] 24.0 mmol/L 21.0-32.0 [facility] Cobalamin (Vitamin B12) [Mass/Vol] 466 pg/mL 211-911 [facility] Globulin (S) [Mass/Vol] 3.2 g/dL 2.2-4.2 [facility] Urea nitrogen/Creatinine [Mass ratio] 19.2 mg/mg 10-20 [facility] Laboratory - Hematology and Cell countsOrdered By: Tre García on 03-18-2023 Erythrocyte distribution width (RBC) [Entitic vol] 44.0 fL 35.1-43.9 [facility] Erythrocyte distribution width (RBC) [Ratio] 13.2 % 11.6-14.6 [facility] Immature granulocytes/100 WBC (Bld) 0.400 % 0.0-0.9 [facility] Comment on above: IG% - Immature Granu locytes (promyelocytes, myelocytes and metamyelocytes) > 1% indicates that a LEFT SHIFT is Present. MCH (RBC) [Entitic mass] 30.4 pg 27.0-32.0 [facility] Nucleated RBC/100 WBC (Bld) [Ratio] 0 % 0-5 [facility] MCHC Auto (RBC) [Mass/Vol]Or dered By: Tre García on 03-18-2023 MCHC (RBC) [Mass/Vol] 33.7 g/dL 32-36 [facility] No Panel InformationOrdered By: Tre García on 03-18-2023 Estimated GFR (MDRD) Amer 100 mL/min >60 [facility] Comment on above: GFR Calc Estimated GFR (MDRD) Non-Af Amer 82 mL/min >60 [facility] Comment on above: Non- GFR Calc Hepatitis C Antibody Non-Reactive Nonreactive [facility] Comment on above: Non Reactive: < 0.8 Equivocal: >/= 0.8 to < 1.0 Reactive: >/= 1.0The CDC recommends that a reactive/equivocal HCV antibody result be followed up by the HCV Nucleic Acid Amplificationtest (839691) Thyroid Stimulating Hormone (TSH) 0.99 uIU/mL 0.358-3.74 [facility] Vitamin D 25-Hydroxy 21.7 ng/mL [facility] Comment on above: Vitamin D 25(OH) Sta tus Range Deficiency <20 ng/mL (50nmol/L) Insufficiency 20 - 30 ng/mL (50 - 75 nmol/L) Sufficiency 30 - 100 ng/mL (75 - 250 nmol/L) Toxicity >100 ng/mL (>250 nmol/L) Platelets bldOrdered By: Tre García on 03-18-2023 Platelets (Bld) [#/Vol] 159 10*3/uL 150-450 [facility] Serum or plasma albumin patti urement (mass/volume)Ordered By: Tre García on 03-18-2023 Albumin [Mass/Vol] 3.8 g/dL 3.2-5.0 [facility] Serum or plasma albumin/glob ulin mass ratioOrdered By: Tre Ricky on 03-18-2023 Albumin/Globulin [Mass ratio] 1.2 {ratio} 0.9-2.4 [facility] Serum or plasma calcium patti urement (mass/volume)Ordered By: Tre García 03-18-2023 Calcium [Mass/Vol] 8.8 mg/dL 8.5-10.1 [facility] Serum or plasma creatinine m easurement (mass/volume)Ordered By: Tre García 03-18-2023 Creatinine [Mass/Vol] 0.94 mg/dL 0.70-1.30 [facility] Comment on above: The validity of the calculated GFR & GFRAA in patients over 70 years has not been determined. Clinical correlation is essential. Serum or plasma folate measu rement (mass/volume)Ordered By: Tre García 03-18-2023 Folate [Mass/Vol] 12.30 ng/mL 3.1-55.4 [facility] Serum or plasma urea nitroge n measurement (mass/volume)Ordered By: Tre García 03-18-2023 Urea nitrogen [Mass/Vol] 18 mg/dL 7-18 [facility] Thin prep Papanicolaou smear with manual screeningOrdered By: Tre García 03-18-2023 Thin prep Papanicolaou smear with manual screening 21 U/L 15-37 [facility] Thin prep Papanicolaou smear with manual screening 6 5-15 [facility] CBC W Auto Differential pane l (Bld)on 03-09-2023 Basophils (Bld) [#/Vol] <0.11 k/uL [facility] Basophils/100 WBC (Bld) 0.2 % [facility] Differential cell count method Nom (Bld) Auto [facility] Eosinophils (Bld) [#/Vol] 0.03 10*3/uL <0.46 k/uL [facility] Eosinophils/100 WBC (Bld) 0.4 % [facility] Erythrocyte distribution width (RBC) [Ratio] 13.2 % 11.5 - 15.0 % [facility] Hematocrit (Bld) [Volume fraction] 47.3 % 39.0 - 51.0 % [facility] Hemoglobin (Bld) [Mass/Vol] 15.2 g/dL 13.0 - 17.0 g/dL [facility] Immature granulocytes (Bld) [#/Vol] 0.03 10*3/uL <0.10 k/uL [facility] Immature granulocytes/100 WBC (Bld) 0.4 % [facility] Lymphocytes (Bld) [#/Vol] 2.78 10*3/uL 1.00 - 4.00 k/uL [facility] Lymphocytes/100 WBC (Bld) 34.6 % [facility] MCH (RBC) [Entitic mass] 30.5 pg 26.0 - 34.0 pg [facility] MCHC (RBC) [Mass/Vol] 32.1 g/dL 30.5 - 36.0 g/dL [facility] MCV (RBC) [Entitic vol] 94.8 fL 80.0 - 100.0 fL [facility] Monocytes (Bld) [#/Vol] 0.59 10*3/uL <0.87 k/uL [facility] Monocytes/100 WBC (Bld) 7.3 % [facility] Neutrophils (Bld) [#/Vol] 4.58 10*3/uL 1.45 - 7.50 k/uL [facility] Neutrophils/100 WBC (Bld) 57.1 % [facility] Nucleated RBC (Bld) [#/Vol] <0.01 k/uL [facility] Nucleated RBC/100 WBC (Bld) [Ratio] 0.0 /100 WBC [facility] Platelet mean volume (Bld) [Entitic vol] 12.2 fL 9.0 - 12.7 fL [facility] Platelets (Bld) [#/Vol] 192 10*3/uL 150 - 400 k /uL [facility] RBC (Bld) [#/Vol] 4.99 10*6/uL 4.20 - 6.0 0 m/uL [facility] WBC (Bld) [#/Vol] 8.03 10*3/uL 3.70 - 11. 00 k/uL [facility] NM CARDIAC PERF STRESS/EXERC ISEon 03-01-2023 [facility] No Panel Informationon 12-10 [facility] CBC W Auto Differential pane l (Bld)on 09-08-2022 Basophils (Bld) [#/Vol] 0.03 10*3/uL <0.11 k/uL [facility] Basophils/100 WBC (Bld) 0.4 % [facility] Differential cell count method Nom (Bld) Auto [facility] Eosinophils (Bld) [#/Vol] 0.04 10*3/uL <0.46 k/uL [facility] Eosinophils/100 WBC (Bld) 0.5 % [facility] Erythrocyte distribution width (RBC) [Ratio] 13.2 % 11.5 - 15.0 % [facility] Hematocrit (Bld) [Volume fraction] 48.2 % 39.0 - 51.0 % [facility] Hemoglobin (Bld) [Mass/Vol] 15.9 g/dL 13.0 - 17.0 g/dL [facility] Immature granulocytes (Bld) [#/Vol] 0.03 10*3/uL <0.10 k/uL [facility] Immature granulocytes/100 WBC (Bld) 0.4 % [facility] Lymphocytes (Bld) [#/Vol] 2.99 10*3/uL 1.00 - 4.00 k/uL [facility] Lymphocytes/100 WBC (Bld) 38.2 % [facility] MCH (RBC) [Entitic mass] 30.2 pg 26.0 - 34.0 pg [facility] MCHC (RBC) [Mass/Vol] 33.0 g/dL 30.5 - 36.0 g/dL [facility] MCV (RBC) [Entitic vol] 91.6 fL 80.0 - 100.0 fL [facility] Monocytes (Bld) [#/Vol] 0.75 10*3/uL <0.87 k/uL [facility] Monocytes/100 WBC (Bld) 9.6 % [facility] Neutrophils (Bld) [#/Vol] 3.98 10*3/uL 1.45 - 7.50 k/uL [facility] Neutrophils/100 WBC (Bld) 50.9 % [facility] Nucleated RBC (Bld) [#/Vol] <0.01 k/uL [facility] Nucleated RBC/100 WBC (Bld) [Ratio] 0.0 /100 WBC [facility] Platelet mean volume (Bld) [Entitic vol] 10.9 fL 9.0 - 12.7 fL [facility] Platelets (Bld) [#/Vol] 145 10*3/uL Low 150 - 400 k /uL [facility] RBC (Bld) [#/Vol] 5.26 10*6/uL 4.20 - 6.0 0 m/uL [facility] WBC (Bld) [#/Vol] 7.82 10*3/uL 3.70 - 11. 00 k/uL [facility] XR RIBS/CHEST 3V AP RIB/OBLS /CXR RIGHTon 08-19-2022 [facility] XR Ribs - right Views and Ch est PAon 08-19-2022 IMPRESSION: Right sixth and seventh rib age indeterminate fractures, likely representing old rib fractures. Production Planner: TASHI Transcribe Date/Time: Aug 19 2022 9:33A Dictated by : RONI VAIL MD This examination was interpreted and the report reviewed and electronically signed by: RONI VAIL MD on Aug 19 2022 9:38AM [facility] DIVISION OF RADIOLOGY * * *Final Report* [...] lungs appear normal. DIVISION OF RADIOLOGY Provider, Jairo Hernández - 08/19/2022 * * *Final Report* * [...] indeterminate fractures, likely representing old rib fractures. Production Planner: SHOB Transcribe Date/Time: Aug 19 2022 9:33A Dictated by : RONI VAIL MD This examination was interpreted and the report reviewed and electronically signed by: RONI VAIL MD on Aug 19 2022 9:38AM EST [facility] Radiology Study observation (narrative) [facility] XR Ribs - right Views and Ch est PAOrdered By: Ccf Provider on 08-19-2022 [facility] XR Chest PA and Lateralon IMPRESSION: Questionable hazy opacities overlying the right upper lung. Consider follow-up. Production Planner: PSCB Transcribe Date/Time: May 11 2022 9:14A [...] to prior trauma. DIVISION OF RADIOLOGY Provider, [facility] - 05/11/2022 * * *Final Report* * [...] overlying the right upper lung. Consider follow-up. Production Planner: PSCRosa Transcribe Date/Time: May 11 2022 9:14A Dictated by : RONI VAIL MD This examination was interpreted and the report reviewed and electronically signed by: RONI VAIL MD on May 11 2022 9:16AM [facility] Radiology Study observation (narrative) [facility] XR Chest PA and LateralOrder ed By: Ccf Provider on 05-11-2022 [facility] Eosinophils Auto (Bld) [#/Vo l]on 04-10-2022 Eosinophils (Bld) [#/Vol] 0.05 10*3/uL <0.46 k/uL [facility] LUNG VOLUMESon 03-11-2022 [facility] NITRIC OXIDE, EXHALEDon 02-28 [facility] XR CHEST 2V FRONTAL/LATon [facility] XR Chest PA and Lateralon IMPRESSION: No acute radiographic abnormality. Production Planner: PSCB Transcribe Date/Time: Feb 23 2022 12:14P Dictated by : BLANCO TIMMONS MD This examination was interpreted and the report reviewed and electronically signed by: BLANCO TIMMONS MD on Feb 23 2022 12:17PM [facility] DIVISION OF RADIOLOGY * * *Final Report* [...] Mild degenerative changes. DIVISION OF RADIOLOGY Provider, [facility] Delaney g Burton - 02/23/2022 * * *Final Report* * [...] changes. IMPRESSION IMPRESSION: No acute radiographic abnormality. Production Planner: PSCB Transcribe Date/Time: Feb 23 2022 12:14P Dictated by : BLANCO TIMMONS MD This examination was interpreted and the report reviewed and electronically signed by: BLANCO TIMMONS MD on Feb 23 2022 12:17PM [facility] Radiology Study [facility] (narrative) [facility] XR Chest PA and LateralOrder ed By: Ccf Provider on 02-23-2022 [facility] CBC panel Auto (Bld)on 09-04 Erythrocyte distribution width (RBC) [Ratio] 13.1 % 11.5 - 15.0 % [facility] Hematocrit (Bld) [Volume fraction] 45.4 % 39.0 - 51.0 % [facility] Hemoglobin (Bld) [Mass/Vol] 15.6 g/dL 13.0 - 17.0 g/dL [facility] MCH (RBC) [Entitic mass] 31.0 pg 26.0 - 34.0 pg [facility] MCHC (RBC) [Mass/Vol] 34.4 g/dL 30.5 - 36.0 g/dL [facility] MCV (RBC) [Entitic vol] 90.3 fL 80.0 - 100.0 fL [facility] Nucleated RBC (Bld) [#/Vol] 10*3/uL <0.01 k/uL [facility] Platelet mean volume (Bld) [Entitic vol] 8.8 fL Low 9.0 - 12.7 fL [facility] Platelets (Bld) [#/Vol] 151 10*3/uL 150 - 400 k /uL [facility] RBC (Bld) [#/Vol] 5.03 10*6/uL 4.20 - 6.0 0 m/uL [facility] WBC (Bld) [#/Vol] 6.87 10*3/uL 3.70 - 11. 00 k/uL [facility] Comprehensive metabolic 2000 panelon 09-04-2021 Albumin [Mass/Vol] 4.3 g/dL 3.9 - 4.9 g/dL [facility] ALP [Catalytic activity/Vol] 103 U/L 38 - 113 U/L [facility] ALT [Catalytic activity/Vol] 19 U/L 10 - 54 U/L [facility] Anion gap [Moles/Vol] 10 mmol/L 9 - 18 mmol/L [facility] AST [Catalytic activity/Vol] 23 U/L 14 - 40 U/L [facility] Bilirubin [Mass/Vol] 0.6 mg/dL 0.2 - 1 .3 mg/dL [facility] Calcium [Mass/Vol] 8.8 mg/dL 8.5 - 10. 2 mg/dL [facility] Chloride [Moles/Vol] 103 mmol/L 97 - 10 5 mmol/L [facility] CO2 [Moles/Vol] 24 mmol/L 22 - 30 mmol/L [facility] Creatinine [Mass/Vol] 0.96 mg/dL 0.73 - 1.22 mg/dL [facility] Estimated Glomerular Filtration Rate 81 mL/min/1.73m >=60 mL/min/1.73m [facility] Glucose [Mass/Vol] 119 mg/dL High 74 - 99 mg/dL [facility] Potassium [Moles/Vol] 4.5 mmol/L 3.7 - 5.1 mmol/L [facility] Protein [Mass/Vol] 6.4 g/dL 6.3 - 8.0 g/dL [facility] Sodium [Moles/Vol] 137 mmol/L 136 - 144 mmol/L [facility] Urea nitrogen [Mass/Vol] 14 mg/dL 9 - 24 mg/d L [facility] CNNURSEon 08-16-2020 CNNURSE Nurse Visit (JOSE L) VALENTINA CABRERA ([id number]) 1945 M Date Time Provider Department 08/16/20 ENRIQUETA SHEPARD ([facility]) JOSE L During your visit today, we recorded the following information about you: Allergies As of Date: 08/16/2020 Noted Allergy Reaction environmental [Other] 02/26/2005 5 - Intolerance Date Reviewed: 07/26/2020 Reviewed by: Deirdre (Tech) Rodrigue Aguirre - Fully Assessed Order(s):[employer] SARS-COV-2 VACCINE 2D DOSE APPT [[id number]] Order #: [id number] Prescriptions as of 08/16/2020 Sig: SUCRALFATE 1 [...] 02/12/2016 06/29/2016 Internal hemorrhoids [K64.8] 01/11/2018 Encounter Status:Open [facility] CNNURSEon 07-26-2020 CNNURSE Nurse Visit (COVAMD) VALENTINA CABRERA ([id number]) 1945 M Date Time Provider Department 07/26/20 1:45 PM COVID VACCINE [facility] During your visit today, we recorded the following information about you: Referring Provider: JOSHUA CHAMPAGNE [[id number]] Allergies As of Date: 07/26/2020 Noted Allergy Reaction environmental [Other] 02/26/2005 5 - Intolerance Date Reviewed: 07/26/2020 Reviewed by: Deirdre ([employer]) Rodrigue Aguirre - Fully Assessed Primary Visit Diagnosis:Need for COVID-19 vaccine [Z23] Order(s):SARS-COVID VACCINE 1ST DOSE APPT [[id number]] Order #: [id number] [employer] COVID-19 VACCINE [[id number]] Order #: [id number] [employer] SARS-COV-2 VACCINE 2D DOSE APPT [[id number]] Order #: [id number] FUTURE Prescriptions as of 07/26/2020 Sig: ENTERIC [...] Encounter Status:Closed by ENRIQUETA SHEPARD on 07/27/20 [facility] Vital Signs Date Time Vital Sign Value Performing Clinician Fransisca chong 09-28-2024 00:28-0400 Body mass index (BMI) [Ratio] 29.8 kg/m2 Dr. Tre García MD Work Phone: [facility] 09-28-2024 00:28-0400 Body weight 89.[address] Tre García MD Work Phone: [facility] 09-15-2024 08:14-0400 Body height 172.[address] Tre García MD Work Phone: [facility] 09-15-2024 08:14-0400 Body mass index (BMI) [Ratio] 29.8 kg/m2 Dr. Tre García MD Work Phone: [facility] 09-15-2024 08:14-0400 Body weight 89.[address] Tre García MD Work Phone: [facility] 08-17-2024 14:28-0400 Body height 172.[address] Tre García MD Work Phone: [facility] 08-17-2024 14:28-0400 Body mass index (BMI) [Ratio] 30 kg/m2 Dr. Tre García MD Work Phone: [phone] [place] [address] 08-17-2024 14:28-0400 Body weight 89.[address] Tre García MD Work Phone: 6(068)[phone] [address] 07-27-2024 07:17-0500 Body mass index (BMI) [Ratio] 29.7 kg/m2 Dr. Tre García MD Work Phone: [phone])[phone] [place] [address] 07-27-2024 07:17-0500 Body weight 88.[address] Tre García MD Work Phone: 9(751)[phone] [place] [address] 06-29-2024 13:26-0500 Body mass index (BMI) [Ratio] 29.8 kg/m2 Dr. Tre García MD Work Phone: 0([phone])[phone] [address] 06-29-2024 13:26-0500 Body weight 89.[address] Tre García MD Work Phone: 0(215)[phone] [address] 05-29-2024 15:11-0500 Body mass index (BMI) [Ratio] 29.3 kg/m2 Dr. Tre García MD Work Phone: 8(037)[phone] [place] [address] 05-29-2024 15:10-0500 Body weight 87.[address] Tre García MD Work Phone: 8([phone] [place] [address] 05-29-2024 14:36-0500 Diastolic blood pressure 74 mm[Hg] Dr. Tre García MD Work Phone: 0(349)[phone] [place] [address] 05-29-2024 14:36-0500 Heart rate 90 /min Dr. Tre García MD Work Phone: [facility] 05-29-2024 14:36-0500 SaO2% (BldA) [Mass fraction] 95 % Dr. Tre García MD Work Phone: [facility] 05-29-2024 14:36-0500 Systolic blood pressure 128 mm[Hg] Dr. Tre García MD Work Phone: [facility] 05-26-2024 13:57-0500 Body mass index (BMI) [Ratio] 31.33 kg/m2 Genie Bustamante MD Work Phone: [facility] 05-26-2024 13:57-0500 Body weight 91.17 kg Genie Bustamante MD Work Phone: [facility] 05-26-2024 13:57-0500 Diastolic blood pressure 70 mm[Hg] Genie Bustamante MD Work Phone: [facility] 05-26-2024 13:57-0500 Heart rate 87 /min Genie Bustamante MD Work Phone: [facility] 05-26-2024 13:57-0500 SaO2% (BldA) [Mass fraction] 96 % Genie Bustamante MD Work Phone: [facility] 05-26-2024 13:57-0500 Systolic blood pressure 126 mm[Hg] Genie Bustamante MD Work Phone: [facility] 05-17-2024 09:09-0500 Body mass index (BMI) [Ratio] 28.7 kg/m2 Dr. Tre García MD Work Phone: [facility] 05-17-2024 09:09-0500 Body temperature 96.9 [degF] Dr. Tre García MD Work Phone: [facility] 05-17-2024 09:09-0500 Diastolic blood pressure 71 mm[Hg] Dr. Tre García MD Work Phone: [facility] 05-17-2024 09:09-0500 Heart rate 84 /min Dr. Tre García MD Work Phone: [facility] 05-17-2024 09:09-0500 Respiratory rate 18 /min Dr. Tre García MD Work Phone: [facility] 05-17-2024 09:09-0500 Systolic blood pressure 131 mm[Hg] Dr. Tre García MD Work Phone: [facility] 05-10-2024 09:21-0500 Body weight 85.[address] Tre García MD Work Phone: [facility] 01-29-2024 12:36-0400 Body mass index (BMI) [Ratio] 30.44 kg/m2 Krislyn Aberegg PA Work Phone: [facility] 01-29-2024 12:36-0400 Body temperature 98.4 [degF] Krislyn Aberegg PA Work Phone: [facility] 01-29-2024 12:36-0400 Body weight 88.6 kg Krislyn Aberegg PA Work Phone: [facility] 01-29-2024 12:36-0400 Diastolic blood pressure 72 mm[Hg] Krislyn Aberegg PA Work Phone: [facility] 01-29-2024 12:36-0400 Heart rate 96 /min Krislyn Aberegg PA Work Phone: [facility] 01-29-2024 12:36-0400 Respiratory rate 18 /min Krislyn Aberegg PA Work Phone: [facility] 01-29-2024 12:36-0400 SaO2% (BldA) [Mass fraction] 95 % Krislyn Aberegg PA Work Phone: [facility] 01-29-2024 12:36-0400 Systolic blood pressure 138 mm[Hg] Krislyn Aberegg PA Work Phone: [facility] 11-09-2023 10:16-0400 Body mass index (BMI) [Ratio] 29.77 kg/m2 Genie Bustamante MD Work Phone: [facility] 11-09-2023 10:16-0400 Body weight 86.64 kg Genie Bustamante MD Work Phone: [facility] 11-09-2023 10:16-0400 Heart rate 83 /min Genie Bustamante MD Work Phone: [facility] 11-09-2023 10:16-0400 Respiratory rate 15 /min Genie Bustamante MD Work Phone: [facility] 11-09-2023 10:16-0400 SaO2% (BldA) [Mass fraction] 98 % Genie Bustamante MD Work Phone: [facility] 08-15-2023 13:13-0400 Body temperature 97.8 [degF] Dr. Tre García Work Phone: [facility] 08-15-2023 13:13-0400 Diastolic blood pressure 64 mm[Hg] Dr. Tre García Work Phone: [facility] 08-15-2023 13:13-0400 Heart rate 81 /min Dr. Tre García Work Phone: [facility] 08-15-2023 13:13-0400 Respiratory rate 16 /min Dr. Tre García Work Phone: [facility] 08-15-2023 13:13-0400 SaO2% (BldA) [Mass fraction] 96 % Dr. Tre García Work Phone: [facility] 08-15-2023 13:13-0400 Systolic blood pressure 124 mm[Hg] Dr. Tre García Work Phone: [facility] 08-15-2023 11:14-0400 Body height 172.[address] Tre García Work Phone: [facility] 06-02-2023 11:20-0500 Body height 175.[address] Jd Solis Work Phone: [facility] 06-02-2023 11:20-0500 Body mass index (BMI) [Ratio] 28.8 kg/m2 Dr. Jd Solis Work Phone: [facility] 06-02-2023 11:20-0500 Body weight 88.[address] Jd Solis Work Phone: [facility] 06-02-2023 11:20-0500 Diastolic blood pressure 85 mm[Hg] Dr. Jd Solis Work Phone: [facility] 06-02-2023 11:20-0500 Heart rate 83 /min Dr. Jd Solis Work Phone: [facility] 06-02-2023 11:20-0500 Respiratory rate 14 /min Dr. Jd Solis Work Phone: [facility] 06-02-2023 11:20-0500 Systolic blood pressure 125 mm[Hg] Dr. Jd Solis Work Phone: [facility] 04-19-2023 10:57-0500 Body height 170.6 cm [facility] Work Phone: [facility] 03-09-2023 09:35-0400 Body weight 88.95 kg Jd Solis MD Work Phone: [facility] 03-09-2023 09:35-0400 Diastolic blood pressure 78 mm[Hg] Jd Solis MD Work Phone: [facility] 03-09-2023 09:35-0400 Heart rate 88 /min Jd Solis MD Work Phone: [facility] 03-09-2023 09:35-0400 Respiratory rate 16 /min Jd Solis MD Work Phone: [facility] 03-09-2023 09:35-0400 Systolic blood pressure 120 mm[Hg] Jd Solis MD Work Phone: [facility] 01-21-2023 09:19-0400 Body height 175.3 cm Becky Fierro PA-C Work Phone: [facility] 01-21-2023 09:19-0400 Body weight 89.18 kg Becky Fierro PA-C Work Phone: [facility] 01-21-2023 09:19-0400 Diastolic blood pressure 70 mm[Hg] Becky Rhiannon PA-C Work Phone: [facility] 01-21-2023 09:19-0400 Heart rate 90 /min Becky Rhiannon PA-C Work Phone: [facility] 01-21-2023 09:19-0400 Respiratory rate 14 /min Becky Rhiannon PA-C Work Phone: [facility] 01-21-2023 09:19-0400 SaO2% (BldA) [Mass fraction] 94 % Becky Rhiannon PA-C Work Phone: [facility] 01-21-2023 09:19-0400 Systolic blood pressure 116 mm[Hg] Becky Rhiannon PA-C Work Phone: [facility] 12-10-2022 08:43-0400 Body weight 88.91 kg Becky Rhiannon PA-C Work Phone: [facility] 09-08-2022 09:14-0400 Body weight 87.09 kg Jd Solis MD Work Phone: [facility] 09-08-2022 09:14-0400 Diastolic blood pressure 78 mm[Hg] Jd Solis MD Work Phone: [facility] 09-08-2022 09:14-0400 Heart rate 68 /min Jd Solis MD Work Phone: [facility] 09-08-2022 09:14-0400 Respiratory rate 16 /min Jd Solis MD Work Phone: [facility] 09-08-2022 09:14-0400 Systolic blood pressure 120 mm[Hg] Jd Solis MD Work Phone: [facility] 08-19-2022 09:02-0400 Body temperature 96.91 [degF] Mich Mathis APRN.PASTE MIXING SUPERVISOR Work Phone: [facility] 08-19-2022 09:02-0400 Body weight 88.91 kg Mich Del WATCHSTANDER.PASTE MIXING SUPERVISOR Work Phone: [facility] 08-19-2022 09:02-0400 Diastolic blood pressure 76 mm[Hg] Mich Mathis WATCHSTANDER.PASTE MIXING SUPERVISOR Work Phone: [facility] 08-19-2022 09:02-0400 Heart rate 118 /min Mich Del WATCHSTANDER.PASTE MIXING SUPERVISOR Work Phone: [facility] 08-19-2022 09:02-0400 Respiratory rate 18 /min Mich Mathis WATCHSTANDER.PASTE MIXING SUPERVISOR Work Phone: [facility] 08-19-2022 09:02-0400 SaO2% (BldA) [Mass fraction] 94 % Mich Mathis WATCHSTANDER.PASTE MIXING SUPERVISOR Work Phone: [facility] 08-19-2022 09:02-0400 Systolic blood pressure 124 mm[Hg] Mich Mathis WATCHSTANDER.PASTE MIXING SUPERVISOR Work Phone: [facility] 07-09-2022 10:16-0500 Body weight 89.36 kg Genie Bustamante MD Work Phone: [facility] 07-09-2022 10:16-0500 Diastolic blood pressure 65 mm[Hg] Genie Bustamante MD Work Phone: [facility] 07-09-2022 10:16-0500 Heart rate 92 /min Genie Bustamante MD Work Phone: [facility] 07-09-2022 10:16-0500 SaO2% (BldA) [Mass fraction] 94 % Genie Bustamante MD Work Phone: [facility] 07-09-2022 10:16-0500 Systolic blood pressure 126 mm[Hg] Genie Bustamante MD Work Phone: [facility] 05-13-2022 08:47-0500 Body weight 88.45 kg Betty Barraza WATCHSTANDER.PASTE MIXING SUPERVISOR Work Phone: [facility] 05-13-2022 08:47-0500 Diastolic blood pressure 70 mm[Hg] Betty Barraza WATCHSTANDER.PASTE MIXING SUPERVISOR Work Phone: [facility] 05-13-2022 08:47-0500 Heart rate 98 /min Betty Tannhof WATCHSTANDER.PASTE MIXING SUPERVISOR Work Phone: [facility] 05-13-2022 08:47-0500 Respiratory rate 16 /min Betty Alvarezhof WATCHSTANDER.PASTE MIXING SUPERVISOR Work Phone: [facility] 05-13-2022 08:47-0500 SaO2% (BldA) [Mass fraction] 97 % Betty Alvarezhof WATCHSTANDER.PASTE MIXING SUPERVISOR Work Phone: [facility] 05-13-2022 08:47-0500 Systolic blood pressure 114 mm[Hg] Betty Tannhof WATCHSTANDER.PASTE MIXING SUPERVISOR Work Phone: [facility] 05-10-2022 09:30-0500 Body temperature 98.29 [degF] Moi Plummer WATCHSTANDER.PASTE MIXING SUPERVISOR Work Phone: [facility] 05-10-2022 09:30-0500 Body weight 88.45 kg Moi Plummer WATCHSTANDER.PASTE MIXING SUPERVISOR Work Phone: [facility] 05-10-2022 09:30-0500 Diastolic blood pressure 78 mm[Hg] Moi Barrylebury WATCHSTANDER.PASTE MIXING SUPERVISOR Work Phone: [facility] 05-10-2022 09:30-0500 Heart rate 108 /min Moi Plummer WATCHSTANDER.PASTE MIXING SUPERVISOR Work Phone: [facility] 05-10-2022 09:30-0500 Respiratory rate 18 /min Moi Barrylebury WATCHSTANDER.PASTE MIXING SUPERVISOR Work Phone: [facility] 05-10-2022 09:30-0500 SaO2% (BldA) [Mass fraction] 95 % Moi Reddylepoli WATCHSTANDER.PASTE MIXING SUPERVISOR Work Phone: [facility] 05-10-2022 09:30-0500 Systolic blood pressure 124 mm[Hg] Moi Barrylepoli WATCHSTANDER.PASTE MIXING SUPERVISOR Work Phone: [facility] 05-03-2022 12:22-0500 Body temperature 97.2 [degF] Camila Comer APRN.PASTE MIXING SUPERVISOR Work Phone: [facility] 05-03-2022 12:22-0500 Body weight 79.56 kg Camilapipo Comer APRN.PASTE MIXING SUPERVISOR Work Phone: [facility] 05-03-2022 12:22-0500 Diastolic blood pressure 76 mm[Hg] Camila Comer APRN.PASTE MIXING SUPERVISOR Work Phone: [facility] 05-03-2022 12:22-0500 Heart rate 88 /min Camila Comer APRN.PASTE MIXING SUPERVISOR Work Phone: [facility] 05-03-2022 12:22-0500 Respiratory rate 16 /min Camila Comer APRN.PASTE MIXING SUPERVISOR Work Phone: [facility] 05-03-2022 12:22-0500 SaO2% (BldA) [Mass fraction] 95 % Camila Comer APRN.PASTE MIXING SUPERVISOR Work Phone: [facility] 05-03-2022 12:22-0500 Systolic blood pressure 130 mm[Hg] Camila Comer APRN.PASTE MIXING SUPERVISOR Work Phone: [facility] 04-10-2022 08:50-0500 Body weight 88 kg Becky Fierro PA-C Work Phone: [facility] 03-11-2022 13:14-0400 Body weight 88.36 kg Jd Solis MD Work Phone: [facility] 03-11-2022 13:14-0400 Diastolic blood pressure 72 mm[Hg] Jd Solis MD Work Phone: [facility] 03-11-2022 13:14-0400 Heart rate 80 /min Jd Solis MD Work Phone: [facility] 03-11-2022 13:14-0400 Respiratory rate 16 /min Jd Solis MD Work Phone: [facility] 03-11-2022 13:14-0400 SaO2% (BldA) [Mass fraction] 95 % Jd Solis MD Work Phone: [facility] 03-11-2022 13:14-0400 Systolic blood pressure 118 mm[Hg] Jd Solis MD Work Phone: [facility] 03-11-2022 09:11-0400 Body height 172.5 cm Respiratory Wstr Work Phone: [facility] 03-11-2022 09:11-0400 Body weight 88 kg Respiratory Wstr Work Phone: [facility] 02-27-2022 13:20-0400 Body weight 87.09 kg Genie Bustamante MD Work Phone: [facility] 02-27-2022 13:20-0400 Diastolic blood pressure 78 mm[Hg] Genie Bustamante MD Work Phone: [facility] 02-27-2022 13:20-0400 Heart rate 83 /min Genie Bustamante MD Work Phone: [facility] 02-27-2022 13:20-0400 Respiratory rate 16 /min Genie Bustamante MD Work Phone: [facility] 02-27-2022 13:20-0400 SaO2% (BldA) [Mass fraction] 98 % Genie Bustamante MD Work Phone: [facility] 02-27-2022 13:20-0400 Systolic blood pressure 138 mm[Hg] Genie Bustamante MD Work Phone: [facility] 02-23-2022 11:31-0400 Body weight 87.09 kg Betty Tannhof WATCHSTANDER.PASTE MIXING SUPERVISOR Work Phone: [facility] 02-23-2022 11:31-0400 Diastolic blood pressure 70 mm[Hg] Betty Tannhof WATCHSTANDER.PASTE MIXING SUPERVISOR Work Phone: [facility] 02-23-2022 11:31-0400 Heart rate 94 /min Betty Tannhof WATCHSTANDER.PASTE MIXING SUPERVISOR Work Phone: [facility] 02-23-2022 11:31-0400 Respiratory rate 16 /min Betty Tannhof WATCHSTANDER.PASTE MIXING SUPERVISOR Work Phone: [facility] 02-23-2022 11:31-0400 SaO2% (BldA) [Mass fraction] 90 % Betty Alvarezhof WATCHSTANDER.PASTE MIXING SUPERVISOR Work Phone: [facility] 02-23-2022 11:31-0400 Systolic blood pressure 110 mm[Hg] Betty Alvarezhof WATCHSTANDER.PASTE MIXING SUPERVISOR Work Phone: [facility] 02-15-2022 11:10-0400 Body temperature 97.2 [degF] Camila Comer WATCHSTANDER.PASTE MIXING SUPERVISOR Work Phone: [facility] 02-15-2022 11:10-0400 Body weight 87.09 kg Camila Comer WATCHSTANDER.PASTE MIXING SUPERVISOR Work Phone: [facility] 02-15-2022 11:10-0400 Diastolic blood pressure 68 mm[Hg] Camila Comer WATCHSTANDER.PASTE MIXING SUPERVISOR Work Phone: [facility] 02-15-2022 11:10-0400 Heart rate 95 /min Camila Comer APRN.PASTE MIXING SUPERVISOR Work Phone: [facility] 02-15-2022 11:10-0400 Respiratory rate 18 /min Camila Comer WATCHSTANDER.PASTE MIXING SUPERVISOR Work Phone: [facility] 02-15-2022 11:10-0400 SaO2% (BldA) [Mass fraction] 95 % Camila Comer WATCHSTANDER.PASTE MIXING SUPERVISOR Work Phone: [facility] 02-15-2022 11:10-0400 Systolic blood pressure 106 mm[Hg] Camila Comer WATCHSTANDER.PASTE MIXING SUPERVISOR Work Phone: [facility] 02-06-2022 09:11-0400 Body weight 88.45 kg Bettypatel Alvarezhof WATCHSTANDER.PASTE MIXING SUPERVISOR Work Phone: [facility] 02-06-2022 09:11-0400 Diastolic blood pressure 68 mm[Hg] Betty Alvarezhof WATCHSTANDER.PASTE MIXING SUPERVISOR Work Phone: [facility] 02-06-2022 09:11-0400 Heart rate 87 /min Betty Alvarezhof WATCHSTANDER.PASTE MIXING SUPERVISOR Work Phone: [facility] 02-06-2022 09:11-0400 Respiratory rate 16 /min Betty Christi WATCHSTANDER.PASTE MIXING SUPERVISOR Work Phone: [facility] 02-06-2022 09:11-0400 SaO2% (BldA) [Mass fraction] 96 % Bettypatel Alvarezhof WATCHSTANDER.PASTE MIXING SUPERVISOR Work Phone: [facility] 02-06-2022 09:11-0400 Systolic blood pressure 116 mm[Hg] Betty Alvarezhof WATCHSTANDER.PASTE MIXING SUPERVISOR Work Phone: [facility] 12-03-2021 10:25-0400 Body weight 88.45 kg Berkley Rajguru WATCHSTANDER.PASTE MIXING SUPERVISOR Work Phone: [facility] 12-03-2021 10:25-0400 Diastolic blood pressure 58 mm[Hg] Berkley Rajguru WATCHSTANDER.PASTE MIXING SUPERVISOR Work Phone: [facility] 12-03-2021 10:25-0400 Systolic blood pressure 122 mm[Hg] Berkley Rajguru WATCHSTANDER.PASTE MIXING SUPERVISOR Work Phone: [facility] 09-03-2021 12:49-0400 Body weight 86.73 kg Jd Solis MD Work Phone: [facility] 09-03-2021 12:49-0400 Diastolic blood pressure 72 mm[Hg] Jd Solis MD Work Phone: [facility] 09-03-2021 12:49-0400 Heart rate 68 /min Jd Solis MD Work Phone: [facility] 09-03-2021 12:49-0400 Respiratory rate 14 /min Jd Solis MD Work Phone: [facility] 09-03-2021 12:49-0400 Systolic blood pressure 120 mm[Hg] Jd Solis MD Work Phone: [facility] 08-27-2021 10:53-0400 Body weight 88 kg Berkley Rajguru WATCHSTANDER.PASTE MIXING SUPERVISOR Work Phone: [facility] 08-27-2021 10:53-0400 Diastolic blood pressure 66 mm[Hg] Berkley Ildefonsomarlenaashu WATCHSTANDER.PASTE MIXING SUPERVISOR Work Phone: [facility] 08-27-2021 10:53-0400 Heart rate 68 /min Berkley Ildefonsomarlenaashu WATCHSTANDER.PASTE MIXING SUPERVISOR Work Phone: [facility] 08-27-2021 10:53-0400 Systolic blood pressure 122 mm[Hg] Berkley Ildefonsomarlenaashu WATCHSTANDER.PASTE MIXING SUPERVISOR Work Phone: [facility] Encounters Encounter Date Encounter Type Care Provider Facility Start: 11-08-2024 ambulatory Tre García Facility:[facility] Start: 10-13-2024 End: 10-28-[address] Tre García MD Work Phone: [facility] Work Phone: Start: 10-13-2024 End: 10-28-[address] Tre García MD -Pulmonary Rehab Work Phone: Start: 09-19-2024 End: 09-19-[address] Tre García MD Work Phone: [facility] Work Phone: Start: 09-19-2024 End: 09-19-[address] Tre García MD -Laboratory Work Phone: Start: 09-18-2024 End: 09-27-2024 ambulatory Tre García Facility:[facility] Start: 09-18-2024 End: 09-27-[address] Tre García MD -Pulmonary Rehab Work Phone: Start: 09-18-[address] Tre moore MD -Pulmonary Rehab Work Phone: Start: 08-28-2024 End: 08-28-[address] Tre García MD Work Phone: [facility] Work Phone: Start: 08-28-2024 End: 08-28-[address] Tre García MD -Pulmonary Rehab Work Phone: Start: 08-21-[address] Tre moore MD -Pulmonary Rehab Work Phone: Start: 08-14-2024 End: 08-14-[address] Tre García MD Work Phone: [facility] Work Phone: Start: 08-14-2024 End: 08-14-[address] Tre García MD -Laboratory, Phy Office 3rd Flr Start: 08-14-2024 End: 08-14-2024 ambulatory Tre [facility] Facility:[facility] Start: 07-28-2024 End: 07-28-2024 ambulatory [facility] Facility:[facility] Start: 07-28-2024 End: 07-28-[address] Tre García MD -Pulmonary Rehab Work Phone: Start: 06-30-2024 End: 06-30-2024 [facility] Start: 06-30-2024 End: 06-30-[address] Tre García MD -Pulmonary Rehab Work Phone: Start: 05-29-2024 End: 05-29-[address] Tre García MD -Pulmonary Rehab Work Phone: Start: 05-29-2024 End: 05-29-[facility] Start: 05-26-2024 End: 05-26-2024 ambulatory GENIE BUSTAMANTE Facility:[facility] Start: 05-26-2024 End: 05-26-2024 Patient encounter procedure Genie Bustamante MD Work Phone: Pulmonary Medicine Comment on above: Small airways diseas e (Primary Dx); History of COVID-19; Diaphragm, eventration Start: 05-17-2024 Non-patient / Non-visit Kimberly franklin PEDIATRIC DERMATOLOGIST-C -[facility] Start: 05-17-2024 End: 05-22-2024 ambulatory Tre Chi Ricky Facility:[facility] Start: 05-17-2024 End: 05-22-2024 Discharged Recurring Kimberly Messi PEDIATRIC DERMATOLOGIST-C -[facility] Work Phone: Start: 05-10-2024 Non-patient / Non-visit Kimberlyradha franklin PEDIATRIC DERMATOLOGIST-C -[facility] Start: 05-01-2024 End: 05-01-[address] Tre García MD -Laboratory, Phy Office 3rd Flr Start: 05-01-2024 End: 05-01-2024 ambulatory Tre Chi Ricky Facility:[facility] Start: 04-12-2024 ambulatory Tre Chi Ricky Facility:[facility] Start: 04-12-2024 End: 04-12-2024 ambulatory [facility] Facility:[facility] Start: 03-21-2024 End: 03-21-2024 ambulatory [facility] Facility:[facility] Start: 03-09-2024 End: 03-27-2024 ambulatory Becky PATELC Work Phone: Pulmonary Medicine Comment on above: COPD Start: 03-06-2024 End: 03-06-2024 ambulatory [facility] Facility:[facility] Start: 03-01-2024 End: 03-01-2024 ambulatory Genie Bustamante MD Work Phone: Pulmonary Medicine Comment on above: TRELEGLORIA ellipta Start: 02-28-2024 End: 02-28-2024 ambulatory Tre [facility] Facility:[facility] Start: 02-23-2024 End: 02-23-2024 Subsequent hospital visit by physician Xr [facility] Work Phone: Radiology Comment on above: Acute cough [R05.1] Start: 02-23-2024 End: 02-23-2024 ambulatory BECKY FIERRO Facility:[facility] Start: 02-23-2024 End: 02-23-2024 Patient encounter procedure Becky PATELC Work Phone: Pulmonary Medicine Comment on above: Subacute cough (Prim dede Dx); History of COVID-19; Mild persistent asthma without complication; Seasonal allergies; Gastroesophageal reflux disease, unspecified whether esophagitis present; Tachycardia Start: 02-15-2024 End: 02-16-2024 ambulatory Genie Bustamante MD Work Phone: Pulmonary Medicine Comment on above: Covid 19 vaccines Start: 02-15-2024 End: 02-15-2024 ambulatory Tre Chi Ricky Facility:[facility] Start: 02-08-2024 End: 02-08-2024 ambulatory Tre Chi Ricky Facility:[facility] Start: 01-29-2024 End: 01-29-2024 ambulatory TRE CHI RICKY Facility:[facility] Start: 01-29-2024 End: 01-29-2024 Patient encounter procedure Fer PORTER Work Phone: [facility] Comment on above: URI, acute (Primary Dx) Start: 01-17-2024 End: 01-17-2024 ambulatory Tre Chi Ricky Facility:[facility] Start: 01-10-2024 ambulatory Tre Chi Ricky Facility:[facility] Start: 01-03-2024 ambulatory Tre Chi Ricky [facility] Start: 12-27-2023 End: 12-27-2023 ambulatory Tre Chi Ricky Facility:[facility] Start: 11-09-2023 End: 11-09-2023 ambulatory GENIE BUSTAMANTE Facility:[facility] Start: 11-09-2023 End: 11-09-2023 Patient encounter procedure Genie Bustamante MD Work Phone: Pulmonary Medicine Comment on above: Mild persistent asth ma without complication (Primary Dx); Seasonal allergies Start: 09-20-2023 End: 09-20-[address] Tre García Work Phone: [facility] Work Phone: Start: 09-20-2023 End: 09-20-[address] Tre García Work Phone: [facility]-Laboratory, Phy Office 3rd Flr Start: 08-15-2023 End: 08-15-2023 Emergency department patient visit Dr. Tre García Work Phone: [facility]-Emergency Department Work Phone: Start: 07-02-2023 Telephone encounter Becky Fierro PA-C Work Phone: Pulmonary Medicine Comment on above: Medication Problem Start: 07-02-2023 End: 07-02-[address] Jd Solis Work Phone: [facility] Work Phone: Start: 07-02-2023 End: 07-02-[address] Jd Solis Work Phone: [facility]-Laboratory, Phy Office 3rd Flr Start: 06-02-2023 End: 06-02-[address] Jd Solis Work Phone: [facility] Work Phone: Start: 06-02-2023 End: 06-02-[address] Jd Solis Work Phone: [facility] Work Phone: Start: 05-03-2023 Refill Betty Barraza APRN.[facility] Work Phone: [facility] [place] Comment on above: Refill Request Start: 04-19-2023 End: 04-19-2023 ambulatory Pulm Lab [facility] Work Phone: [facility]M [facility] Comment on above: Spirometry Start: 04-19-2023 End: 04-19-2023 Patient encounter procedure Pulm [facility] Work Phone: [facility] Start: 04-08-2023 End: 04-08-[address] Jd Solis Work Phone: [facility]-Pulmonary Services/Neurology Work Phone: Start: 04-05-2023 Non-patient / Non-visit Dr. Joe Solis Work Phone: [facility] Start: 04-05-2023 End: 04-05-[address] Jd Solis Work Phone: [facility] Work Phone: Start: 04-05-2023 End: 04-05-[address] Jd Solis Work Phone: [facility]-Cardiovascul ar Services Work Phone: Start: 03-18-2023 End: 03-18-2023 ambulatory [facility] Work Phone: Start: 03-18-2023 End: 03-18-2023 Patient encounter procedure [facility]-Laboratory, Phy Office 3rd Flr Start: 03-09-2023 End: 03-09-2023 Patient encounter procedure Jd Solis MD Work Phone: [facility] [place] Comment on above: Essential hypertensi on, benign (Primary Dx); Moderate persistent asthma without complication; Benign non-nodular prostatic hyperplasia with lower urinary tract symptoms; Recurrent major depressive disorder, in full remission (HCC); Anxiety; Low platelet count (HCC) Start: 03-01-2023 End: 03-01-2023 Subsequent hospital visit by physician [facility] [facility] Work Phone: Nuclear Medicine Comment on above: PERSON (dyspnea on exer tion) [R06.09] Start: 01-21-2023 End: 01-21-2023 Patient encounter procedure Becky Fierro PA-C Work Phone: Pulmonary Medicine Comment on above: Cough variant asthma (Primary Dx); Gastroesophageal reflux disease, unspecified whether esophagitis present; History of environmental allergies; History of COVID-19 Start: 12-23-2022 ambulatory Becky Bravo PA-C Work Phone: Pulmonary Medicine Comment on above: results Start: 12-23-2022 E-mail encounter fro m caregiver Becky Fierro PA-C Work Phone: [facility] Start: 12-11-2022 Telephone encounter Becky Fierro PA-C Work Phone: Pulmonary Medicine Comment on above: Medication Problem ( Not sure of increase of dosage) Start: 12-10-2022 End: 12-10-2022 ambulatory Pulm Lab [facility] Work Phone: PULM LAB [facility] Comment on above: Spirometry Start: 12-10-2022 End: 12-10-2022 Patient encounter procedure Pulm Lab [facility] Work Phone: [facility] Comment on above: Cough variant asthma (Primary Dx); SOB (shortness of breath); History of environmental allergies Start: 12-06-2022 ambulatory Genie Bustamante MD Work Phone: Pulmonary Medicine Comment on above: Medication question Start: 09-18-2022 ambulatory Becky Mcleod [employer] Work Phone: Pulmonary Medicine Comment on above: Albuterol Inhaler Start: 09-08-2022 End: 09-08-2022 Patient encounter procedure Jd Solis MD Work Phone: [facility] [place] Comment on above: Essential hypertensi on, benign (Primary Dx); Recurrent major depressive disorder, in full remission (HCC); Benign non-nodular prostatic hyperplasia with lower urinary tract symptoms; Moderate persistent asthma without complication; Musculoskeletal pain; Thrombocyte disorder (HCC); Elevated glucose Start: 08-24-2022 Refill Becky Mcleod [employer] Work Phone: Pulmonary Medicine Comment on above: Refill Request Start: 08-19-2022 End: 08-19-2022 Subsequent hospital visit by physician Xr [facility] Work Phone: Radiology Comment on above: Rib pain on right si de [R07.81] Start: 08-19-2022 End: 08-19-2022 Patient encounter procedure Mich Mathis APRN.CNP Work Phone: [facility] Comment on above: Rib pain on right si de (Primary Dx) Start: 07-09-2022 End: 07-09-2022 Patient encounter procedure Genie Bustamante MD Work Phone: Pulmonary Medicine Comment on above: Cough variant asthma (Primary Dx) Start: 05-13-2022 End: 05-13-2022 Patient encounter procedure Betty Barraza WATCHSTANDER.PASTE MIXING SUPERVISOR Work Phone: Family [facility] [place] Comment on above: SOB (shortness of br eath) (Primary Dx); Acute cough; Moderate persistent asthma without complication Start: 05-11-2022 End: 05-11-2022 Subsequent hospital visit by physician Holden [facility] Work Phone: Radiology Comment on above: Acute cough [R05.1] Start: 05-10-2022 End: 05-10-2022 Patient encounter procedure Moi Plummer WATCHSTANDER.PASTE MIXING SUPERVISOR Work Phone: [facility] Comment on above: Viral illness (Prima ry Dx); Acute cough Start: 05-03-2022 End: 05-03-2022 Patient encounter procedure Camila Comer WATCHSTANDER.PASTE MIXING SUPERVISOR Work Phone: [facility] Comment on above: URI, acute (Primary Dx); Rhinosinusitis Start: 04-30-2022 Telephone encounter Betty noyola WATCHSTANDER.PASTE MIXING SUPERVISOR Work Phone: [facility] [place] Comment on above: Results (Covid/Flu ) Start: 04-10-2022 End: 04-10-2022 Patient encounter procedure Becky Fierro PA-C Work Phone: Pulmonary Medicine Comment on above: Cough variant asthma (Primary Dx); SOB (shortness of breath); History of environmental allergies; History of COVID-19; Congenital eventration of diaphragm Start: 03-31-2022 ambulatory Genie Bustamante MD Work Phone: Pulmonary Medicine Comment on above: Hoarse raspy voice Start: 03-20-2022 Telephone encounter Jd key MD Work Phone: [address] [place] [address] Comment on above: Patient Question Start: 03-19-2022 Refill Mayur HILL RN.PASTE MIXING SUPERVISOR Work Phone: [facility] [place] Comment on above: Refill Request Start: 03-17-2022 ambulatory Genie Bustamante MD Work Phone: Pulmonary Medicine Comment on above: Mucinex Start: 03-16-2022 ambulatory Genie Bustamante MD Work Phone: Pulmonary Medicine Comment on above: Steroid Beta inhaler Start: 03-12-2022 ambulatory Genie Bustamante MD Work Phone: Pulmonary Medicine Comment on above: Flu and booster shot s Start: 03-11-2022 End: 03-11-2022 ambulatory Respiratory Therapist [facility] Work Phone: Pulmonary Medicine Comment on above: Spirometry Question about twist haler Start: 03-11-2022 End: 03-11-2022 Patient encounter procedure Respiratory Therapist [facility] Work Phone: [facility] Comment on above: Essential hypertensi on, [...] of COVID-19 Start: 02-25-2022 Telephone encounter Betty noyola APRN.PASTE MIXING SUPERVISOR Work Phone: Family [facility] [place] Comment on above: Results (Labs) Start: 02-23-2022 End: 02-23-2022 Subsequent hospital visit by physician Xr [facility] Work Phone: Radiology Comment on above: SOB (shortness of br eath) [R06.02] Start: 02-23-2022 End: 02-23-2022 Patient encounter procedure Betty Barraza APRN.PASTE MIXING SUPERVISOR Work Phone: [facility] [place] Comment on above: SOB (shortness of br eath) (Primary Dx); Bronchitis; Fatigue, unspecified type Start: 02-16-2022 Telephone encounter Camila Comer APRN.[facility] Work Phone: [facility] Comment on above: Results Start: 02-15-2022 End: 02-15-2022 Patient encounter procedure Camila Souleymane CORREA.[facility] Work Phone: [facility] Comment on above: At increased risk of exposure to COVID-19 virus (Primary Dx) Start: 02-06-2022 End: 02-06-2022 Patient encounter procedure Betty Barraza APRN.[facility] Work Phone: [facility] Comment on above: Viral illness (Prima ry Dx); Acute cough Start: 12-03-2021 End: 12-03-2021 Patient encounter procedure Berkley Roque APRN.[facility] Work Phone: Psychiatry Comment on above: Recurrent major depr essive disorder, in full remission (HCC) (Primary Dx) Start: 09-03-2021 End: 09-03-2021 Patient encounter procedure Jd Solis MD Work Phone: [facility] Comment on above: Essential hypertensi on, benign (Primary Dx); Encounter for hepatitis C screening test for low risk patient; Benign non-nodular prostatic hyperplasia with lower urinary tract symptoms; Recurrent major depressive disorder, in full remission (HCC) Start: 08-27-2021 End: 08-27-2021 Patient encounter procedure Berkley Roque APRN.[facility] Work Phone: Psychiatry Comment on above: Recurrent major depr essive disorder, in full remission (HCC) (Primary Dx) Procedures Date Procedure Procedure Detail Performing Clinician Start: 09-19-2024 Prostate specific an tigen measurement Dr. Tre García MD Work Phone: Comment on above: This test was perfor med using the [employer] tPSA method. Measured values of a patient sample can vary depending on the testing procedure used. PSA values determined on patient samples by different testing procedures cannot be used interchangeably. If there is a change in PSA assays while monitoring therapy, sequential testing should be performed to confirm baseline values. Start: 09-19-2024 Vitamin D, 25-hydrox y measurement Dr. Tre García MD Work Phone: Comment on above: Vitamin D StatusDefi ciency: <20 ng/mL (50nmol/L)Insufficiency: 20-30 ng/mL (50-75 nmol/L)Sufficiency: 30-100 ng/mL (75-250 nmol/L)Toxicity: >100 ng/mL (>250 nmol/L) Start: 08-14-2024 SARS-CoV-2, Influenz a & RSV (PCR) Dr. Tre García MD Work Phone: Start: 05-01-[address] Tre García MD Work Phone: Start: 05-01-2024 Bacterial nucleic ac id assay Dr. Tre García MD Work Phone: Start: 05-01-2024 Gram stain microscopy D josé miguel García MD Work Phone: Start: 05-01-2024 Microbial culture, routine Dr. Tre García MD Work Phone: Start: 02-23-2024 Radiologic exam ches t 2 views Becky [employer] Work Phone: Start: 08-15-2023 CT of head without contrast Dr. Tre García Work Phone: Start: 04-19-2023 Spmtry w/vc expirato ry lindsay w/wo mxml vol vntj Becky Fierro PA-[employer] Work Phone: Start: 04-19-2023 Unlisted pulmonary service/procedure Becky [employer] Work Phone: Start: 04-08-2023 Coronavirus COVID-[address] Jd Solis Work Phone: Start: 04-08-2023 Influenza Types A,B Direct FA (DAMARI) Dr. Jd Solis Work Phone: Start: 04-08-2023 Respiratory syncytia l virus antigen assay Dr. Jd Solis Work Phone: Start: 03-01-2023 Myocardial spect mul tiple studies Jd Solis MD Work Phone: Start: 12-10-2022 Nitric oxide gas determination Becky Fierro PA-C Work Phone: Start: 08-19-2022 Radex ribs uni w/pos teroant ch minimum 3 views Mich Mathis WATCHSTANDER.PASTE MIXING SUPERVISOR Work Phone: Start: 05-11-2022 Radiologic exam ches t 2 views Moi Plummer WATCHSTANDER.PASTE MIXING SUPERVISOR Work Phone: Start: 03-11-2022 Nitric oxide gas determination Genie Bustamante MD Work Phone: Start: 03-11-2022 Brncdilat rspse spmt ry pre&post-brncdilat admn Genie Bustamante MD Work Phone: Start: 02-23-2022 Radiologic exam ches t 2 views Betty Barraza WATCHSTANDER.PASTE MIXING SUPERVISOR Work Phone: Plan of Treatment Date Care Activity Detail Author Start: 03-19-2033 Urine microalbumin profile DTa P,Tdap,Td Vaccine (5 - Td or Tdap) [facility] Start: 10-01-2026 Urine microalbumin profile [facility] Start: 09-08-2025 DIABETES SCREEN DIABETES SCREEN [facility] Start: 09-08-2025 Diabetes Screening Diabetes Screenin g [facility] Start: 05-26-2025 BP Controlled (<130/80) BP Con trolled (<130/80) [facility] Start: 05-11-2025 DIABETES SCREEN DIABETES SCREEN [facility] Start: 02-23-2025 DIABETES SCREEN DIABETES SCREEN [facility] Start: 02-22-2025 BP Controlled (<130/80) BP Con trolled (<130/80) [facility] Start: 11-24-2024 End: 11-24-2024 Patient encounter procedure 11/24/2024 10:00 AM EDT Office Visit Pulmonary Medicine [address] [place] [address] Namrata Fernandes APRN.PASTE MIXING SUPERVISOR [address] [place] [address] 6 month follow up Pulmonary Medicine Comment on above: 6 month follow up Start: 11-08-2024 BP Controlled (<130/80) BP Con trolled (<130/80) [facility] Start: 09-04-2024 DIABETES SCREEN DIABETES SCREEN [facility] Start: 05-26-2024 End: 05-26-2024 Patient encounter procedure 05/26/2024 2:15 PM EST Office Visit Pulmonary Medicine [address] [place] [id number] Genie Bustamante MD [address] [place], [place] [id number] 6 month f/u Pulmonary Medicine Comment on above: 6 month f/u Start: 04-28-2024 DIABETES SCREEN DIABETES SCREEN [facility] Start: 04-19-2024 BP Controlled (<130/80) BP Con trolled (<130/80) [facility] Start: 03-09-2024 Annual PCP Team Rubber Flap Tuber Machine Operator santy Disease Visit Annual PCP Team Chronic Disease Visit [facility] Start: 03-09-2024 BP Controlled (<130/80) BP Con trolled (<130/80) [facility] Start: 02-23-2024 End: 02-23-2024 Patient encounter procedure 02/23/2024 1:30 PM EDT Office Visit Pulmonary Medicine [address] [place], [place] [id number] Becky Fierro PA-C [address] [place], [place] [id number] Asthma/ post covid Pulmonary Medicine Comment on above: Asthma/ post covid Start: 01-30-2024 Covid-19 Vaccine ( season) Covid-19 Vaccine ( season) [facility] Start: 01-30-2024 Influenza vaccination Influenza Vacc ine (#1) [facility] Start: 01-29-2024 End: 02-12-2024 COVID & INFLUENZA A/B & RSV PCR, ROUTINE COVID & INFLUENZA A/B & RSV PCR, ROUTINE Microbiology Routine URI, acute Expected: 01/29/2024, Expires: 02/12/2024 [facility] Work Phone: Comment on above: Expected: 01/29/2024 , Expires: 02/12/2024 Start: 01-22-2024 BP CONTROLLED (<130/80) BP CON TROLLED (<130/80) [facility] Start: 01-05-2024 ANNUAL PCP TEAM STOCK DIGGER SANTY DISEASE VISIT ANNUAL PCP TEAM CHRONIC DISEASE VISIT [facility] Start: 12-11-2023 BP CONTROLLED (<130/80) BP CON TROLLED (<130/80) [facility] Start: 09-09-2023 ANNUAL PCP TEAM STOCK DIGGER SANTY DISEASE VISIT ANNUAL PCP TEAM CHRONIC DISEASE VISIT [facility] Start: 09-09-2023 BP CONTROLLED (<130/80) BP CON TROLLED (<130/80) [facility] Start: 09-08-2023 End: 11-08-2023 CBC W Auto Differential panel - Blood CBC + DIFF Lab Routine Essential hypertension, benign Low platelet count (HCC) Expected: 09/08/2023 (Approximate), Expires: 11/08/2023 [facility] Work Phone: Comment on above: Expected: 09/08/2023 (Approximate), Expires: 11/08/2023 Start: 09-08-2023 End: 11-08-2023 Comprehensive metabolic 2000 panel - Serum or Plasma COMP METABOLIC PANEL Lab Routine Essential hypertension, benign Expected: 09/08/2023 (Approximate), Expires: 11/08/2023 [facility] Work Phone: Comment on above: Expected: 09/08/2023 (Approximate), Expires: 11/08/2023 Start: 09-08-2023 End: 11-08-2023 Lipid 1996 panel - Serum or Plasma LIPID PANEL BASIC Lab Routine Essential hypertension, benign Expected: 09/08/2023 (Approximate), Expires: 11/08/2023 [facility] Work Phone: Comment on above: Expected: 09/08/2023 (Approximate), Expires: 11/08/2023 Start: 08-20-2023 BP CONTROLLED (<130/80) BP CON TROLLED (<130/80) [facility] Start: 08-15-2023 [facility] Start: 07-09-2023 BP CONTROLLED (<130/80) BP CON TROLLED (<130/80) [facility] Start: 05-31-2023 Advance Directive Discussion Advance Directive Discussion [facility] Start: 05-13-2023 ANNUAL PCP TEAM STOCK DIGGER SANTY DISEASE VISIT ANNUAL PCP TEAM CHRONIC DISEASE VISIT [facility] Start: 05-13-2023 BP CONTROLLED (<130/80) BP CON TROLLED (<130/80) [facility] Start: 05-10-2023 BP CONTROLLED (<130/80) BP CON TROLLED (<130/80) [facility] Start: 04-29-2023 ANNUAL PCP TEAM STOCK DIGGER SANTY DISEASE VISIT ANNUAL PCP TEAM CHRONIC DISEASE VISIT [facility] Start: 04-10-2023 BP CONTROLLED (<130/80) BP CON TROLLED (<130/80) [facility] Start: 03-11-2023 ANNUAL PCP TEAM STOCK DIGGER SANTY DISEASE VISIT ANNUAL PCP TEAM CHRONIC DISEASE VISIT [facility] Start: 03-11-2023 BP CONTROLLED (<130/80) BP CON TROLLED (<130/80) [facility] Start: 02-23-2023 ANNUAL PCP TEAM STOCK DIGGER SANTY DISEASE VISIT ANNUAL PCP TEAM CHRONIC DISEASE VISIT [facility] Start: 02-23-2023 BP CONTROLLED (<130/80) BP CON TROLLED (<130/80) [facility] Start: 02-15-2023 BP CONTROLLED (<130/80) BP CON TROLLED (<130/80) [facility] Start: 02-06-2023 ANNUAL PCP TEAM STOCK DIGGER SANTY DISEASE VISIT ANNUAL PCP TEAM CHRONIC DISEASE VISIT [facility] Start: 02-06-2023 BP CONTROLLED (<130/80) BP CON TROLLED (<130/80) [facility] Start: 01-29-2023 Influenza vaccination INFLUENZA (#1) [facility] Start: 12-03-2022 BP CONTROLLED (<130/80) BP CON TROLLED (<130/80) [facility] Start: 09-08-2022 End: 11-08-2022 Comprehensive metabolic 2000 panel - Serum or Plasma [facility] Work Phone: Comment on above: Expected: 09/08/2022 (Approximate), Expires: 11/08/2022 Start: 09-08-2022 End: 11-08-2022 Hemoglobin A1c in Blood [facility] Work Phone: Comment on above: Expected: 09/08/2022 , Expires: 11/08/2022 Start: 09-08-2022 End: 11-08-2022 PSA/PROSTSPECAG SCRN [facility] Work Phone: Comment on above: Expected: 09/08/2022 , Expires: 11/08/2022 Start: 09-03-2022 ANNUAL PCP TEAM STOCK DIGGER SANTY DISEASE VISIT ANNUAL PCP TEAM CHRONIC DISEASE VISIT [facility] Start: 09-03-2022 BP CONTROLLED (<130/80) BP CON TROLLED (<130/80) [facility] Start: 08-27-2022 BP CONTROLLED (<130/80) BP CON TROLLED (<130/80) [facility] Start: 07-14-2022 COVID-19 VACCINE (6 - Pfizer series) COVID-19 VACCINE (6 - Pfizer series) [facility] Start: 05-31-2022 ADVANCE DIRECTIVE DISCUSSION ADVANCE DIRECTIVE DISCUSSION [facility] Start: 05-13-2022 End: 07-13-2022 Natriuretic peptide.B prohormone N-Terminal [Mass/volume] in Serum or Plasma [facility] Work Phone: Comment on above: Expected: 05/13/2022 , Expires: 07/13/2022 Start: 05-10-2022 End: 05-24-2022 Influenza virus A and B RNA and SARS-CoV-2 (COVID-19) N gene panel - Respiratory specimen by GRACE with probe detection COVID WITH FLUA+B, ROUTINE Microbiology Routine Viral illness Expected: 05/10/2022, Expires: 05/24/2022 [facility] Work Phone: Comment on above: Expected: 05/10/2022 , Expires: 05/24/2022 Start: 05-05-2022 ANNUAL PCP TEAM STOCK DIGGER SANTY DISEASE VISIT ANNUAL PCP TEAM CHRONIC DISEASE VISIT [facility] Start: 04-10-2022 End: 06-10-2022 ALGN [place] GRP [facility] Work Phone: Comment on above: Expected: 04/10/2022 , Expires: 06/10/2022 Start: 04-10-2022 End: 06-10-2022 IgE [Units/volume] in Serum or Plasma [facility] Work Phone: Comment on above: Expected: 04/10/2022 , Expires: 06/10/2022 Start: 02-23-2022 End: 04-25-2022 CBC W Auto Differential panel - Blood [facility] Work Phone: Comment on above: Expected: 02/23/2022 , Expires: 04/25/2022 Start: 02-23-2022 End: 04-25-2022 Comprehensive metabolic 2000 panel - Serum or Plasma [facility] Work Phone: Comment on above: Expected: 02/23/2022 , Expires: 04/25/2022 Start: 02-23-2022 End: 04-25-2022 Fibrin D-dimer FEU [Mass/volume] in Platelet poor plasma [facility] Work Phone: Comment on above: Expected: 02/23/2022 , Expires: 04/25/2022 Start: 02-15-2022 End: 03-01-2022 Influenza virus A and B RNA and SARS-CoV-2 (COVID-19) N gene panel - Respiratory specimen by GRACE with probe detection COVID WITH FLUA+B, ROUTINE Microbiology Routine At increased risk of exposure to COVID-19 virus Expected: 02/15/2022, Expires: 03/01/2022 [facility] Work Phone: Comment on above: Expected: 02/15/2022 , Expires: 03/01/2022 Start: 01-29-2022 Influenza vaccination INFLUENZA (#1) [facility] Start: 10-24-2021 COVID-19 VACCINE (5 - Booster for Pfizer series) COVID-19 VACCINE (5 - Booster for Pfizer series) [facility] Start: 09-03-2021 End: 11-03-2021 Hepatitis C virus Ab [Presence] in Serum HEP C AB IA W/CONF SCRN Lab Routine Encounter for hepatitis C screening test for low risk patient Expected: 09/03/2021 (Approximate), Expires: 11/03/2021 [facility] Work Phone: Comment on above: Expected: 09/03/2021 (Approximate), Expires: 11/03/2021 Start: 09-03-2021 End: 11-03-2021 Prostate specific Ag [Mass/volume] in Serum or Plasma PSA/PROSTSPECAG DIAG Lab Routine Benign non-nodular prostatic hyperplasia with lower urinary tract symptoms Expected: 09/03/2021 (Approximate), Expires: 11/03/2021 [facility] Work Phone: Comment on above: Expected: 09/03/2021 (Approximate), Expires: 11/03/2021 Start: 05-31-2021 ADVANCE DIRECTIVE DISCUSSION ADVANCE DIRECTIVE DISCUSSION [facility] Start: 2004 RSV Vaccine (1 - 1-d ose 60+ series) RSV Vaccine (1 - 1-dose 60+ series) [facility] Start: 01-13-1963 BP CONTROLLED (<130/80) BP CON TROLLED (<130/80) [facility] Start: 01-13-1963 HEPATITIS C SCREENING HEPATITIS C [facility] End: 12-11-2023 Echocardiography ECHO Cardiology Routine SOB (shortness of breath) 1 Occurrences starting 12/10/2022 until 12/11/2023 [facility] Work Phone: Comment on above: 1 Occurrences starti ng 12/10/2022 until 12/11/2023 Hepatitis C virus Ab [Presence] in Serum HEP C AB IA W/CONF SCRN Lab Routine Encounter for hepatitis C screening test for low risk patient 09/04/2021 10:32 AM EDT [facility] Work Phone: Influenza virus A an d B RNA and SARS-CoV-2 (COVID-19) N gene panel - Respiratory specimen by GRACE with probe detection COVID WITH FLUA+B, ROUTINE Microbiology Routine Acute cough Ordered: 02/06/2022 [facility] Work Phone: Comment on above: Ordered: 02/06/2022 End: 03-29-2023 LUNG VOLUMES LUNG VOLUMES PFT Routine SOB (shortness of breath) 1 Occurrences starting 02/27/2022 until 03/29/2023 [facility] Work Phone: Comment on above: 1 Occurrences starti ng 02/27/2022 until 03/29/2023 End: 03-29-2023 NITRIC OXIDE, EXHALED NITRIC OXIDE, EXHALED PFT Routine SOB (shortness of breath) 1 Occurrences starting 02/27/2022 until 03/29/2023 [facility] Work Phone: Comment on above: 1 Occurrences starti ng 02/27/2022 until 03/29/2023 [facility] Work Phone: Patient referral [place] Work Phone: Prostate specific Ag [Mass/volume] in Serum or Plasma PSA/PROSTSPECAG DIAG Lab Routine Benign non-nodular prostatic hyperplasia with lower urinary tract symptoms 09/04/2021 10:32 AM EDT [facility] Work Phone: End: 06-09-2023 Radiologic exam chest 2 views XR CHEST 2V FRONTAL/LAT Radiology STAT Acute cough 1 Occurrences starting 05/10/2022 until 06/09/2023 [facility] Work Phone: Comment on above: 1 Occurrences starti ng 05/10/2022 until 06/09/2023 End: 06-12-2023 Radiologic exam chest 2 views XR CHEST 2V FRONTAL/LAT Radiology Routine SOB (shortness of breath) Acute cough 1 Occurrences starting 05/13/2022 until 06/12/2023 [facility] Work Phone: Comment on above: 1 Occurrences starti ng 05/13/2022 until 06/12/2023 End: 03-29-2023 SPIROMETRY WITH DILATOR IF OBSTRUCTED SPIROMETRY WITH DILATOR IF OBSTRUCTED PFT Routine SOB (shortness of breath) 1 Occurrences starting 02/27/2022 until 03/29/2023 [facility] Work Phone: Comment on above: 1 Occurrences starti ng 02/27/2022 until 03/29/2023 SPIROMETRY WITH DILA TOR IF OBSTRUCTED SPIROMETRY WITH DILATOR IF OBSTRUCTED PFT Routine SOB (shortness of breath) 03/11/2022 8:53 AM EDT [facility] Work Phone: End: 03-24-2025 XR Chest PA and Lateral XR CHEST 2V FRONTAL/LAT Radiology Routine Subacute cough 1 Occurrences starting 02/23/2024 until 03/24/2025 [facility] Work Phone: Comment on above: 1 Occurrences starti ng 02/23/2024 until 03/24/2025 XR Chest PA and Lateral XR CHEST 2V FRONTAL/LAT Radiology Routine Acute cough 02/23/2024 1:53 PM EDT [facility] Immunizations Immunization Date Immunization Notes Care Provider [facility] 02-10-2023 influenza (HD-IIV4) vaccine, age 65+ yr, high dose, quadrivalent, PF (FLUZONE HIGH-DOSE) Jd Solis MD Work Phone: [facility] 02-10-2023 respiratory syncytia l virus (RSV) vaccine, adjuvanted (AREXVY) Jd Solis MD Work Phone: [facility] 02-10-2023 influenza virus vacc ine, unspecified formulation Fer PORTER Work Phone: [facility] 03-13-2022 COVID-19 booster vaccine, age 12+ yr, bivalent ([employer]) Genie Bustamante MD Work Phone: [facility] 03-13-2022 influenza (HD-IIV4) vaccine, age 65+ yr, high dose, quadrivalent, PF (FLUZONE HIGH-DOSE) Jd Solis MD Work Phone: [facility] 03-13-2022 influenza, high dose seasonal, preservative-free Genie Bustamante MD Work Phone: [facility] 02-18-2021 influenza, high-dose , quadrivalent vaccine (FLUZONE HIGH DOSE QUADRIVALENT) Berkley Ildefonsoguru WATCHSTANDER.PASTE MIXING SUPERVISOR Work Phone: [facility] 08-16-2020 COVID-19 vaccine, ag e 12+ yr (PFIZER-BIONTECH - PURPLE TOP) Berkley Rajguru WATCHSTANDER.PASTE MIXING SUPERVISOR Work Phone: [facility] Work Phone: 07-26-2020 COVID-19 vaccine, ag e 12+ yr (PFIZER-BIONTECH - PURPLE TOP) Berkley Rajguru WATCHSTANDER.PASTE MIXING SUPERVISOR Work Phone: [facility] Work Phone: 01-22-2020 influenza, high dose seasonal, preservative-free Berkley Rajguru WATCHSTANDER.PASTE MIXING SUPERVISOR Work Phone: [facility] 02-28-2019 influenza, high dose seasonal, preservative-free Berkley Rajguru WATCHSTANDER.PASTE MIXING SUPERVISOR Work Phone: [facility] 12-29-2018 zoster vaccine recombinant Berkley Rajguru WATCHSTANDER.PASTE MIXING SUPERVISOR Work Phone: [facility] 10-28-2018 zoster vaccine recombinant Berkley Rajguru WATCHSTANDER.PASTE MIXING SUPERVISOR Work Phone: [facility] 03-02-2018 influenza, high dose seasonal, preservative-free Berkley Rajguru WATCHSTANDER.PASTE MIXING SUPERVISOR Work Phone: [facility] 02-09-2017 influenza, high dose seasonal, preservative-free Berkley Rajguru WATCHSTANDER.PASTE MIXING SUPERVISOR Work Phone: [facility] 10-01-2016 tetanus and diphther ia toxoids, adsorbed, preservative free, for adult use (5 Lf of tetanus toxoid and 2 Lf of diphtheria toxoid) Berkley Rajguru WATCHSTANDER.PASTE MIXING SUPERVISOR Work Phone: [facility] 03-17-2016 influenza, high dose seasonal, preservative-free Berkley Rajguru WATCHSTANDER.PASTE MIXING SUPERVISOR Work Phone: [facility] 06-25-2015 pneumococcal polysaccharide vaccine, 23 valent Berkley Rajguru WATCHSTANDER.PASTE MIXING SUPERVISOR Work Phone: [facility] 06-12-2014 pneumococcal conjuga te vaccine, 13 valent Berkley Rajguru WATCHSTANDER.PASTE MIXING SUPERVISOR Work Phone: [facility] 02-27-2014 influenza, seasonal, injectable Berkley Rajguru WATCHSTANDER.PASTE MIXING SUPERVISOR Work Phone: [facility] 04-20-2013 pneumococcal polysaccharide vaccine, 23 valent Berkley Rajguru WATCHSTANDER.[facility] Work Phone: [facility] 04-20-2013 pneumococcal vaccine , unspecified formulation [facility] 02-28-2013 Influenza virus vaccine [facility] 03-14-2010 influenza virus vacc ine, unspecified formulation Berkley Rajguru WATCHSTANDER.[facility] Work Phone: [facility] Work Phone: 04-03-2008 influenza virus vacc ine, unspecified formulation Berkley Rajguru WATCHSTANDER.[facility] Work Phone: [facility] Work Phone: 04-03-2008 pneumococcal polysaccharide vaccine, 23 valent Berkley Rajguru WATCHSTANDER.[facility] Work Phone: [facility] Work Phone: 08-05-2006 tetanus toxoid, redu gentry diphtheria toxoid, and acellular pertussis vaccine, adsorbed Berkley Rajmarlenaru WATCHSTANDER.[facility] Work Phone: [facility] Work Phone: 11-02-1996 diphtheria and tetan us toxoids, adsorbed for pediatric use Berkley Rajguru WATCHSTANDER.[facility] Work Phone: [facility] Work Phone: Payers Date Payer Category Payer Self-pay [id number] 2021 Medicare AETNA MEDICARE A ETNA MEDICARE PPO [id number] 2021-Present [phone] [address] [place] [address] PPO [id number] 2021 Medicare AETNA MEDICARE A ETNA MEDICARE PPO [id number] 2021-Present [phone] [address] [place] [address] PPO [id number] 2012 Private Health Insurance [id number] Unknown [id number] 62 Unknown [id number] 2.16.840.1.663459.3.579.2.4 62 Unknown [id number] 2.16.840.1.765637.3.579.2.4 62 Unknown [id number] 2.16.840.1.213977.3.579.2.4 62 Unknown [id number] 2.16.840.1.292432.3.579.2.4 62 Unknown [id number] 2.16.840.1.793494.3.579.2.4 62 Unknown [id number] 2.16.840.1.411713.3.579.2.4 62 Unknown [id number] 2.16.840.1.758375.3.579.2.4 62 Unknown [id number] 2.16.840.1.585132.3.579.2.4 62 Unknown [id number] 2.16.840.1.319934.3.579.2.4 62 Unknown [id number] 2.16.840.1.302863.3.579.2.4 62 Unknown [id number] 2.16.840.1.623518.3.579.2.4 62 Unknown [id number] 2.16.840.1.681410.3.579.2.4 62 Unknown [id number] 2.16.840.1.733116.3.579.2.4 62 Unknown [id number] 2.16.840.1.410471.3.579.2.4 62 Unknown [id number] 2.16.840.1.861822.3.579.2.4 62 Unknown [id number] 2.16.840.1.728282.3.579.2.4 62 Unknown [id number] 2.16.840.1.278216.3.579.2.4 62 Unknown [id number] 2.16.840.1.316066.3.579.2.4 62 Unknown [id number] 2.16.840.1.837588.3.579.2.4 62 Unknown [id number] 2.16.840.1.246485.3.579.2.4 62 Unknown [id number] 2.16.840.1.785456.3.579.2.4 62 Unknown [id number] 2.16.840.1.816167.3.579.2.4 62 Unknown [id number] 2.16.840.1.072789.3.579.2.4 62 Social History Date Type Detail Facility Start: 02-06-2022 Tobacco smoking status MIIS Never smoked tobacco [facility] Work Phone: Start: 08-27-2021 End: 05-26-2024 Alcohol intake Current non-drinker of alcohol (finding) [facility] Start: 05-29-2020 End: 05-12-2022 History SDOH Alcohol Frequency 1 [facility] Start: 05-29-2020 History SDOH Alcohol Std Drinks 98 [facility] Start: 05-29-2020 End: 05-12-2022 History SDOH Social Connections Phone 5 [facility] Start: 05-29-2020 End: 05-12-2022 History SDOH Social Connections Sikh 2 [facility] Start: 05-29-2020 End: 05-12-2022 History SDOH Social Connections Living 3 [facility] Start: 05-29-2020 History SDOH Physical Activity DPW 6 [facility] Start: 05-29-2020 Education 18 [facility] Start: 05-11-2014 End: 02-06-2022 Tobacco Comment Non smoking childhood home. [facility] Start: 1945 Sex Assigned At Male [facility] Start: 08-17-2021 End: 05-03-2022 Exposure to SARS-CoV-2 (event) Not sure [facility] Start: 02-06-2022 Tobacco use and exposure Smokeless tobacco non-user [facility] Start: 05-12-2022 History SDOH Alcohol Std Drinks 0 [facility] Start: 05-11-2022 End: 12-10-2022 History of Social function [facility] Start: 05-11-2022 End: 12-10-2022 Social connection and isolation panel [facility] Do you belong to any clubs or organizations such as voodoo groups, unions, fraternal or athletic groups, or school groups? Yes [facility] Are you now , , , , never or living with a partner? [facility] How often to you hav e a drink containing alcohol? Never [facility] How many standard dr inks containing alcohol do you have on a typical day? Patient does not drink [facility] Do you feel stress - tense, restless, nervous, or anxious, or unable to sleep at night because your mind is troubled all the time - these days [OSQ] Only a little [facility] (I/We) worried wheth er (my/our) food would run out before (I/we) got money to buy more. Never true [facility] In the past 12 month s, was there a time when you were not able to pay the mortgage or rent on time? No [facility] Start: 05-12-2019 Gender identity Identifies as male gender (finding) [facility] Start: 01-23-2020 Sexual orientation Heterosexual (finding) [facility] Start: 06-14-2021 End: 08-15-2023 Tobacco smoking status NHIS Unknown if ever smoked [facility] Start: 04-19-2013 None [facility] Start: 04-19-2013 Spouse/ Significant Other [facility] Start: 04-19-2013 Non-smoker [facility] Do you feel stress - tense, restless, nervous, or anxious, or unable to sleep at night because your mind is troubled all the time - these days [OSQ] Very much [facility] Start: 05-29-2024 Tobacco smoking status NHIS Ex-smoker (finding) [facility] Start: 08-23-2024 End: 09-25-2024 Sex Male (finding) [facility] Mental Status Date Assessment Result Facility 08-15-2023 Cognitive function Level Of Cons ciousness Awake;Alert;Appropriate;Follow s Commands [facility] Work Phone: Clinical Notes 02-12-2016 to 05-26-2024 Genie Bustamante MD - 05/26/2024 2:15 PM EST Note Date & Type Note Facility 05-26-2024 History of Present illness Narrative Images from the original note were not included. . [facility] Note Patient name: Valentina Cabrera PCP: Tre [...] of breath. Patient was actually hospitalized at [facility], hypoxemic, received remdesivir and dexamethasone and actually [...] chest tightness. Pulmonary function test performed at [facility] shows small airways obstruction with worsening of his airflow postbronchodilator. DATA: PFT 02/2024 [facility]: FVC 3.86 L 103% FEV1 2.62 L [...] other lower urinary tract symptoms (LUTS) 07/05/2007 rn long term care (current) use of inhaled steroids Lumbar discogenic [...] which included preparing to see the patient, euqm-me-[id number] patient care, completing clinical documentation, obtaining and/or reviewing separately obtained history, performing a medically appropriate examination, and independently interpreting results (not separately reported). Genie Bustamante MD [facility] documented in this encounter [facility] 05-26-2024 Note HNO ID: [id number] Author: GENIE BUSTAMANTE MD Service: ? Author Type: Physician Type: Progress Notes Filed: 05/26/2024 17:25 Note Text: . Respiratory [facility] Note Patient name: Valentina Cabrera PCP: Tre [...] of breath. Patient was actually hospitalized at [facility], hypoxemic, received remdesivir and dexamethasone andactually discharged on supplemental oxygen which he was subsequently able to discontinue. His current inhaled therapy was changed to Breztri and he presents today for follow-up visit. He feels improved on the Breztri. No significant coughing or chest congestion. Less shortness of breath and improved endurance. He denies any wheezing or chest tightness. Pulmonary function test performed at [facility] shows small airways obstruction with worsening of his airflow postbronchodilator. 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 Head: Normocephalic, no masses, lesions, (more content not included)... [facility] 05-17-2024 Evaluation note Diagnosis Onset Date Resolution Nonhealing nonsurgical wound acute May 17, 2 024 9:00am Skin tear of forearm without complication acute May 172023 9:00am Wound, open, arm, forearm acute May 17, 2 024 9:00am [facility] Work Phone: [phone] 233-254510-10-2024 Telephone encounter Note* Telephone Encounter - Eunice Alvarado MA - 03/09/2024 4:26 PM EDT PFTs dated 03/06/2024 from [facility] scanned into [facility] for review. Eunice Alvarado MA View External Procedures - Pulmonary [ID [id number]] [facility]10-10-2024 Miscellaneous Notes* Telephone Encounter - Eunice Alvarado MA - 03/09/2024 4:26 PM EDT PFTs dated 03/06/2024 from [facility] scanned into [facility] for review. Eunice Alvarado MA View External Procedures - Pulmonary [ID [id number]] [facility] History of Present illness Narrative* Ashley Samayoa, RT(R) - 02/23/2024 2:00 PM EDT Radiology Service Progress Note PATIENT NAME: Valentina Cabrera DATE OF SERVICE: February 23, 2024 TIME: 1:47 PM PATIENT IDENTITY VERIFICATION COMPLETED USING TWO (2) IDENTIFIERS: Name and Date of confirmedby patient verbally. FALL SCREENING: Has the patient had 2 falls in the last year or 1 fall with injury or currently using an Ambulatory Assistive Device (Walker, Cane, Wheelchair, Crutches, etc.)? No PATIENT GENDER DATA: Male PATIENT RELEVANT IMPLANT DATA REVIEWED: Not Applicable PATIENT PRESENTS WITH AN IMPLANTABLE OR ATTACHED WEB FEEDER: No RADIOLOGY DEPARTMENT: General X-ray: Exam(s) Completed: Chest X-Ray PERIPHERAL IV DATA: Not applicable SIGNED BY: GABRIELLA Flores) February 23, 2024 1:47 PM documented in this encounterK[facility]24 NoteHNO ID: [id number] Author: ASHLEY SAMAYOA RT (R) Service: Radiology Author Type: Technologist Type: Progress Notes Filed: 02/23/2024 13:53 Note Text: Radiology Service Progress Note PATIENT [...] PATIENT PRESENTS WITH AN IMPLANTABLE OR ATTACHED WEB FEEDER: No RADIOLOGY DEPARTMENT: General X-ray: Exam(s) Completed: Chest X-Ray PERIPHERAL IV DATA: Not applicable SIGNED BY: GABRIELLA Flores) February 23, 2024 1:47 [facility]09-25-2024 History of Present illness Narrative* Becky Fierro PA-C - 02/23/2024 1:30 PM EDT Patient: Valentina Cabrera PCP: Tre García MD CC: follow up HPI: Valentina Cabrera 79 year old male never smoker with PMH significant for GERD, BPH, HTN, allergies previously treated with IT, depression, eventration of diaphragm, chronic cough. Methacholinechallenge negative, had referral to Dr. Roca for VCD but was started on ICS by PCP which resolved his cough. Current therapy consists of Dulera, Singulair, and as needed albuterol. Patient was rec ently seen in [facility] for URI and Covid test was positive [...] No hemoptysis. No wheezing. Exertional dyspnea with minimaleffort. No fevers, chills, or night sweats. No unintended weight loss. No lower extremity edema. NoGERD/heartburn. PAST MEDICAL HISTORY Diagnosis Date Abdominal pain, left lower quadrant Achilles tendinitis 10/04/2012 Adjustment disorder with depressed mood Allergies Chronic low back pain 03/12/2011 Constipation Essential hypertension, benign Family history of ischemic heart disease Family history of mental disorder Family history of stroke GERD without esophagitis Hypertrophy of prostate with urinary obstruction and other lower urinary tract symptoms (LUTS) 07/05/2007 FDC (current) use of inhaled steroids Lumbar discogenic [...] inhaler^Inhale 2 Puffs as instructed two times aday.^Disp: 1 Each^Rfl: 0 mometasone-formoterol (DULERA) 200-5 mcg/actuation inhaler^Inhale 2 Puffs as instructed two times aday.^Disp: 3 Each^Rfl: 3 omeprazole (PRILOSEC) 40 mg [...] COVID-19 original vaccine, age 12+ yr, monovalent ([employer] [place] [employer]) 08/29/2021 COVID-19 original vaccine, age 12+ yr, monovalent ([employer]ER[employer] - PURPLE TOP) 07/26/2020 08/16/2020 02/21/2021 COVID-19 vaccine, age 12+ yr (PFIZER-BIONTECH) 02/22/2023 08/20/2023 COVID-19 vaccine, age 12+ yr, bivalent ([employer]) 03/13/2022 diphtheria tetanus (DT) vaccine, pediatric 11/02/1996 [...] Collected: 04/19/2023 11:03 AM (Final result) Narrative: [facility] [address] [place] [address] Test Date: 2023-04-19 Pat Name: VALENTINA CABRERA Department: Room: Gender: Male Clinical Nursing Intern: : 1945 Requested By: Order Number: [id number] Reading MD: Genie Bustamante MD Interpretive Statements ATS/ERS acceptability and repeatability standards for spirometry met. IMPRESSION: Spirometry is normal. Small airways obstruction noted. Maximum inspiratory and expiratory pressures are normal. Electronically Signed On 04-19-2023 12:36:10 EST by Genie Bustamante MD ID: [id number] Name: VALENTINA CABRERA Race: White Ht: 67.17 in Wt: 195.00 lbs Age: 78 Gender: Male : 1945 Dx: Shortness of breath Smoking Hx: Non-smoker Doctor: BECKY FIERRO Test Date: 04/19/2023 Site: Tech: Tawana Moore PRE-BRONCH POST-BRONCH Pre LLN Pred ULN %Pred Post %Pred %Chg SPIROMETRY FVC (L) 4.09 2.52 3.41 4.32 119 FEV1 (L) 2.73 1.83 2.54 3.20 107 FEV1/FVC 0.67 0.62 0.76 0.88 87 PEF L/s (L/sec) 7.39 4.57 6.70 8.83 110 FEF50 (L/sec) 2.05 1.10 3.23 5.35 63 FIF50 (L/sec) 5.40 FEF50/FIF50 0.38 90-100 FIVC (L) 4.17 HFN85-01 (L/sec) 1.25 0.73 1.92 3.66 65 Time [...] indeterminate fractures, likely representing old rib fractures. Production Planner: TASHI Transcribe Date/Time: Aug 19 2022 9:33A [...] minutes prior to activities associated with shortness ofbreath, and as needed for rescue relief of [...] necessary. Becky Fierro PA-C documented in this encounterK[facility]09-[facility]24 NoteHNO ID: [id number] Author: BECKY FIERRO PA-C Service: ? Author Type: Physician Nursing Resident Type: Progress Notes Filed: 02/23/2024 14:17 Note Text: Patient: Valentina Cabrera PCP: Tre García MD [...] needed albuterol. 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 (current) use of inhaled steroids Lumbar discogenic [...] two times a day.Disp: 3 EachRfl: 3 omeprazole (PRILOSEC) 40 mg capsuleTake 1 capsule [...] COVID-19 original vaccine, age 12+ yr, monovalent ([employer] [place] [employer]) 08/29/2021 COVID-19 original vaccine, age 12+ yr, monovalent ([employer]ER[employer] - PURPLE TOP) 07/26/2020 08/16/2020 02/21/2021 COVID-19 vaccine, age 12+ yr (P[employer]ER-BION[employer]CH) 02/22/2023 08/20/2023 COVID-19 vaccine, age 12+ yr, bivalent ([employer]) 03/13/2022 diphtheria tetanus (DT) vaccine, pediatric 11/02/1996 influenza (HD-IIV3) vaccine, age 65+ yr, high dose, trivalent, PF (FLUZONE HIGH-DOSE) 03/17/2016 02/09/2017 03/02/2018 02/28/2019 01/22/2020 03/13/2022 influenza (HD-IIV4) vaccine, age 65+ yr, high dose, quadrivalent, PF (FLUZONE HIGH-DOSE) (more content not included)...[facility]08-31-2024 NoteHNO ID: [id number] Author: FER RUELAS PA Service: ? Author Type: Physician Nursing Resident Type: Progress Notes Filed: 01/29/2024 12:49 Note Text: This note was created using [employer]. Subjective Valentina Cabrera is a 79 year old male. HPI 79-year-old male presents for cough, congestion x 1 day. Patient states yesterday he started getting cough, sore throat, nasal congestion and chest congestion. He is was recently sick with similar symptoms as well as his grandson. Patient states he has a low-grade fever yesterday. No fever today. He has not taken anything iynq-zns-[id number] for symptoms. He does have history of [...] lower urinary tract symptoms (LUTS) No date: FDC (current) use of inhaled steroids 06/05/2010: Lumbar [...] for treatment. - S (more content not included)...[facility]08-31-2024 History of Present illness Narrative* Fer Ruelas PA - 01/29/2024 12:47 PM EDT This note was created using [employer]. Subjective Valentina Cabrera is a 79 year old male. HPI 79-year-old male presents for cough, congestion x 1 day. Patient states yesterday he started getting cough, sore throat, nasal congestion and chest congestion. He is was recently sick with similar symptoms as well as his grandson. Patient states he has a low-grade fever yesterday. No fevertoday. He has not taken anything hzax-bwd-[id number] for symptoms. He does have history of [...] lower urinary tract symptoms (LUTS) No date: FDC (current) use of inhaled steroids 06/05/2010: Lumbar [...] inhaler^Inhale 2 Puffs as instructed two times aday.^Disp: 1 Each^Rfl: 0 omeprazole (PRILOSEC) 40 mg [...] inhaler^Inhale 2 Puffs as instructed two times aday.^Disp: 3 Each^Rfl: 3 FAMILY HISTORY Problem Relation [...] kg (195 lb 5.2 oz) SpO2 95% BMI30.44 kg/m Physical Exam Vitals and nursing note [...] ER evaluation. CHARLOTTE Henry documented in [facility] History of Present illness Narrative* Genie Bustamante MD - 11/09/2023 10:30 AM EDT Images from the original note were not included. . Respiratory [facility] Note Patient name: Valentina Cabrera PCP: Jd Solis MD CC: Follow-up HPI: Valentina Cabrera 78 year old male never smoker with PMH significant for GERD, BPH, HTN, allergies previously treated with IT, depression, eventration of diaphragm, chronic cough. Methacholinechallenge negative, had referral to Dr. Roca for VCD but was started on ICS by PCP which resolved his cough. Current therapy consists of Dulera, Singulair, and as needed albuterol. 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..] clothes after mowing Genie Bustamante MD [facility] documented in this encounterK[facility]06-[facility]-2024 NoteHNO ID: [id number] Author: GENIE BUSTAMANTE MD Service: ? Author Type: Physician Type: Progress Notes Filed: 11/09/2023 11:28 Note Text: . Respiratory Burton Note Patient name: Valentina Cabrera PCP: Jd Solis MD CC: Follow-up HPI: Valentina Cabrera [...] other lower urinary tract symptoms (LUTS) 07/05/2007 rn long term care (current) use of inhaled steroids Lumbar discogenic [...] 11/03/2011 Colonoscopy COLONOSCOPY SCRN (more content not included)...[facility] 07-02-2023 Miscellaneous Notes* Telephone Encounter - Becky Fierro PA-C - 07/02/2023 11:25 AM EST I sent one script to be filled locally and sent a 3 month supply with refills to mail order. Virginie * Telephone Encounter - Deirdre Brand LPN - 07/02/2023 11:16 AM EST Patient called. Verified name and date of . Called to make sure message was sent and to let staff know he did go to his PCP today and was given okay to double up on the Dulera 100 mcg/5 and a sedative to help him sleep. He will wait to hear back from staff. Deirdre Brand LPN * Telephone Encounter - Deirdre Brand LPN - 07/02/2023 8:28 AM EST Patient called. Verified name and date of . Patient reports that he feels the Advair is causing interaction with nortriptyline. Patient startedusing the Advair 3-4 days ago and the last two nights he has only gotten a couple hours of sleep (total of 2-3 hours of sleep in the two nights) which he read is a interaction. Also caused jitters but did MyChart message about that previously. Patient is asking that he return to Dulera and needs 90day supply sent to [facility] but needs initial order to get him started sent to [facility]. He has some of the Dulera 100 mcg/5 left but that is not what he was taking most recently and is asking if that can be doubled up as he was most recently taking 200 mcg/5. Pleasereview and advise. Deirdre Brand LPN documented in this encounterKettering Health [facility]12-04-2023 Miscellaneous Notes* Telephone Encounter - Mayur Kimble APRN.CNP - 05/03/2023 12:05 PM EST The following approved medication requests have been transmitted electronically. Requested Prescriptions Pending Prescriptions Disp Refills lisinopril (ZESTRIL) 5 mg tablet [Pharmacy Med Name: LISINOPRIL TABS 5MG] 90 tablet 3 Sig: take 1 tablet daily Mayur Kimble APRN.LEAH documented in this encounterKettering Health [facility] Campus11-20-2023 History of Present illness Narrative* Tawana Moore RPFT - 04/19/2023 11:19 AM EST PULM FUNCTION SMARTBLOCK: Provider: Becky Fierro PA-C Assisting Tech: Tawana Moore RPFT MIP/MEP: 1 documented in this encounterKettering Health [facility] Campus10-10-2023 History of Present illness Narrative* Jd Solis MD - 03/09/2023 9:40 AM EDT Chief Complaint Patient presents with: 6 Month [...] other lower urinary tract symptoms (LUTS) 07/05/2007 [facility] (current) use of inhaled steroids Lumbar discogenic [...] Avoidance of triggers recommended - Continue with Stone And Concrete Washer 3. Benign non-nodular prostatic hyperplasia with lower [...] Past Histories independently gathered by the clinical web support engineer and the remaining scribed note accurately describes my personal service to the patient. Medical Decision Making: Problems: Moderate: 2+ stable chronic illnesses Data: Unique test(s) ordered: 3+ Risk: Moderate: Drug management Medical Decision Making Level: 4 - Moderate Jd Solis MD The documentation for this note was completed by Marilin Schaffer Ma acting as scribe for Jd Solis MD. March 09, 2023 9:37 AM. Marilin Schaffer Ma documented in this encounterKettering Health [facility] Campus10-02-2023 History of Present illness Narrative* Lulú Goncalves, RT(R) - 03/01/2023 7:00 AM EDT RADIOLOGY SERVICE PROGRESS NOTE SERVICE DATE: 03/01/2023 [...] creatinine assay has traceable calibration to isotope dilution- mass spectrometry. Refer to KDIGO guidelines for clinical interpretation. In patients with unstable renal function, e.g. those with acute kidney injury, the eGFRmay not accurately reflect actual GFR. eGFR- Date Value Ref Range Status 04/28/2021 >60 Final P.O.C.T. RESULTS: N/A March 01, [address] PERFORMED: No IV SITE: Ambulatory: A peripheral IV was started in the Right antecubital site with a Angio cath: 22 gauge. POST EXAM PIV STATUS: Discontinued PROCEDURE TYPE: NM Stress: 12.3 mCi [id number] was administered IV for Rest Imaging at 07:12 by Lulú Goncalves. 33.4 mCi [id number] was administered IV for Stress Imaging at 08:35 by Lulú Goncalves. ADMINISTRATION TIME: PATIENT DISCHARGED TO: Ambulatory patient, left NM department area. A Diagnostic radioactive procedure has taken place, with no further precautions necessary other than routine body substance precautions. More information regarding radiation safety can be found usingthis link: [email or web address] SIGNATURE: [email or web address]) PATIENT NAME: Valentina Cabrera DATE: March 01, 2023 TIME: 09:25 AM PAGER/CONTACT #: documented in this encounterKettering Health Main Campus08-24-2023 History of Present illness Narrative* Becky Fierro PA-C - 01/21/2023 9:30 AM EDT Images from the original note were not included. Patient: Valentina Cabrera PCP: Jd Solis MD CC: follow up HPI: Valentina [...] been helpful. Evaluation for VTE negative. Current therapywith Dulera 200 mcg, Singulair and Albuterol. Today, [...] other lower urinary tract symptoms (LUTS) 07/05/2007 rn long term care (current) use of inhaled steroids Lumbar discogenic [...] mg capsule^TAKE 1 CAPSULE DAILY BEFORE BREAKFAST (ONE- HALF HOUR BEFORE MEAL).^Disp: 90 capsule^Rfl: 3 tamsulosin [...] 90 Resp 14 Ht 175.3 cm (5' 9) Wt 89.2 kg (196 lb 9.6 oz) [...] minutes prior to activities associated with shortness ofbreath, and as needed for rescue relief of [...] necessary. Becky Fierro PA-C documented in this encounterKettering Health [facility] Campus07-14-2023 Miscellaneous Notes* Telephone Encounter - Bessy Barron LPN - 12/11/2022 9:47 AM EDT Spoke with patient. Fluticasone increased in new Dulera RX. Dosing remains 2 puffs BID. Bessy Barron LPN * Telephone Encounter - Blanca Bustamante LPN - 12/11/2022 9:19 AM EDT Patient called, verified name and date of [...] patient. Blanca Bustamante LPN documented in this encounterKettering Health [facility] Campus07-13-2023 Procedure note* Tawana Moore RPFT - 12/10/2022 9:14 AM EDTAssociated Order(s): NITRIC OXIDE, EXHALED RESPIRATORY THERAPY ORAL EXHALED [...] 2022 TIME: 9:14 AM documented in this encounterKettering Health [facility] Campus07-13-2023 History of Present illness Narrative* Tawana Moore RPFT - 12/10/2022 9:13 AM EDT PULM FUNCTION SMARTBLOCK: Provider: Becky Fierro PA-C Assisting Tech: Tawana Moore RPFT Exhaled Nitric Oxide: 1 documented in this encounterKettering Health Main Campus07-13-2023 History of Present illness Narrative* Becky Fierro PA-C - 12/10/2022 9:00 AM EDT Images from the original note were not included. Patient: Valentina Cabrera PCP: Jd Solis MD CC: follow-up cough variant asthma [...] been helpful. Evaluation for VTE negative. Current therapywith Dulera and as needed Albuterol. Today, patient reports he was well controlled and doing well until August at which time he noticed an increase in allergy symptoms. Daily cough productive of phlegm. No hemoptysis. No wheezing, chest pain, or palpitations. Exertional dyspnea with minimal effort. Is having difficulty maintaining lawn and has to take frequent breaks. Denies significant post nasaldrip or sinus congestion. No lower extremity edema. [...] other lower urinary tract symptoms (LUTS) 07/05/2007 rn long term care (current) use of inhaled steroids Lumbar discogenic [...] capsule TAKE 1 CAPSULE DAILY BEFORE BREAKFAST (ONE- HALF HOUR BEFORE MEAL). tamsulosin (FLOMAX) 0.4 mg [...] Ref Range & Units 2 mo ago [place] IgE <0.35 kU/l <0.35 [place] Class Class 0 Class 0 Eddie [...] minutes prior to activities associated with shortness ofbreath, and as needed for rescue relief of [...] necessary. Becky Fierro PA-C documented in this encounterKettering Health [facility] Campus07-10-2023 Miscellaneous Notes* Telephone Encounter - Bessy Barron LPN - 12/07/2022 9:17 AM EDT Spoke with patient by phone. [facility] to deliver Dulera in 3-5 days. He has 3 days of medication available currently. Advised patient to contact the office should he need a temporary supply of Dulera sent locally. Bessy Barron LPN documented in this encounterKettering Health [facility] Campus04-21-2023 Miscellaneous Notes* Telephone Encounter - Bessy Barron LPN - 09/18/2022 1:15 PM EDT Patient phones requesting refills as follows: Requested Prescriptions Pending Prescriptions Disp Refills albuterol HFA (PROVENTIL HFA, VENTOLIN HFA) 90 mcg/actuation inhaler 3 Each 3 Sig: Inhale 2 Puffs as instructed every 4 hours as needed for wheezing/shortness of breath. Please review and advise. Bessy Barron LPN documented in this encounterKettering Health [facility] Campus04-11-2023 History of Present illness Narrative* Jd Solis MD - 09/08/2022 9:20 AM EDT Chief Complaint Patient presents with: 6 Month Exam HPI Valentina Cabrera is a 77 year old male who presents here today for 6 month follow up. He has an advanced directive, just recently updated it with his Icu Manager. Will bring updated copy for our records. Denies any bowel, Gi, or urinary issues. Uses Miralax to keep bowels moving. Also taking Flomax 0.4mg daily. . GERD: Sx stable on Prilosec [...] or bending forward when getting out of bed.Pain does radiate over into his RUQ. He [...] other lower urinary tract symptoms (LUTS) 07/05/2007 [facility] (current) use of inhaled steroids Lumbar discogenic [...] capsule TAKE 1 CAPSULE DAILY BEFORE BREAKFAST (ONE- HALF HOUR BEFORE MEAL). tamsulosin (FLOMAX) 0.4 mg [...] Past Histories independently gathered by the clinical web support engineer and the remaining scribed note accurately describes my personal service to the patient. Medical Decision Making: Problems: Moderate: 2+ stable chronic illnesses Data: Unique test(s) ordered: 3+ Risk: Moderate: Drug management Medical Decision Making Level: 4 - Moderate Jd Solis MD The documentation for this note was completed by Natalie Youngblood Ma acting as scribe for Jd Solis MD. September 08, 2022 9:29 AM. Natalie Youngblood Ma documented in this encounterKettering Health [facility] Campus03-27-2023 Miscellaneous Notes* Telephone Encounter - Kamala Saunders Ma - 08/24/2022 9:31 AM EDT Patient phones requesting refills as follows: He would like a 3 month supply sent to his mail orderpharmacy. Requested Prescriptions Pending Prescriptions Disp Refills mometasone-formoterol (DULERA) 100-5 mcg/actuation inhaler 1 Each 5 Sig: Inhale 2 Puffs as instructed twice daily. Please review and advise. Kamala Saundesr Ma documented in this encounterKettering Health [facility] Campus03-22-2023 History of Present illness Narrative* Nallely Caban RT(R) - 08/19/2022 9:20 AM EDT Radiology Service Progress Note PATIENT NAME: Valentina Cabrera DATE OF SERVICE: August 19, 2022 TIME: 9:18 AM PATIENT IDENTITY VERIFICATION COMPLETED USING TWO (2) IDENTIFIERS: Name and Date of confirmedby patient verbally. FALL SCREENING: Has the patient [...] 19, 2022 9:18 AM documented in this encounterKettering Health [facility] Campus03-22-2023 History of Present illness Narrative* Mich Mathis APRN.PASTE MIXING SUPERVISOR - 08/19/2022 9:06 AM EDT Images from the original note were not [...] other lower urinary tract symptoms (LUTS) 07/05/2007 rn long term care (current) use of inhaled steroids Lumbar discogenic [...] capsule TAKE 1 CAPSULE DAILY BEFORE BREAKFAST (ONE- HALF HOUR BEFORE MEAL). tamsulosin (FLOMAX) 0.4 mg [...] - PREDNISONE 10 MG TABLET Mich Mathis APRN.PASTE MIXING SUPERVISOR documented in this encounterKettering Health [facility] Campus02-09-2023 History of Present illness Narrative* Genie Bustamante MD - 07/09/2022 10:30 AM EST Images from the original note were not included. . Respiratory Burton Note Patient name: Valentina Cabrera PCP: Jd Solis MD CC: Follow-up asthma HPI: Valentina [...] been helpful. Evaluation for VTE negative. Changed inhaledtherapy to Dulera. States he is doing well. Was ill over the holidays with some type of viral illness, non-flu or COVID. Took three weeks to get over, was coughing and more SOB. Dry cough. Had to usehis albuterol. Currently denies any cough, shortness of [...] Ref Range & Units 2 mo ago [place] IgE <0.35 kU/l <0.35 [place] Class Class 0 Class 0 Eddie [...] other lower urinary tract symptoms (LUTS) 07/05/2007 rn long term care (current) use of inhaled steroids Lumbar discogenic [...] capsule TAKE 1 CAPSULE DAILY BEFORE BREAKFAST (ONE- HALF HOUR BEFORE MEAL). tamsulosin (FLOMAX) 0.4 mg [...] sooner with problems Genie Bustamante MD Respiratory Burton documented in this encounterKettering Health [facility] Campus12-14-2022 Instructions* Patient Instructions* Betty Barraza APRN.LEAH - 05/13/2022 9:10 AM EST Continue supportive care at home. May use over the counter cold and cough medication as needed. Stay well hydrated. May use Tessalon Perles three times daily for cough. Get lab completed. Start Singulair 10 mg at bedtime. Get repeat chest xray in 1 month. Follow up pending test results or sooner as needed. documented in this encounterKettering Health Main Campus12-14-2022 History of Present illness Narrative* Betty Barraza APRN.CNP - 05/13/2022 9:00 AM EST This is a 77 year old male who presents today with: Patient presents with: Follow Up: From . coughing and fatique HISTORY OF PRESENT ILLNESS: Valentina Cabrera is a 77 year old male. Patient presents with: Follow Up: From . coughing and fatique Here in the office for follow up. Has been seen several times in family medicine and [facility] care for cold/URI symptoms. Was seen [...] other lower urinary tract symptoms (LUTS) 07/05/2007 [facility] (current) use of inhaled steroids Lumbar discogenic [...] capsule TAKE 1 CAPSULE DAILY BEFORE BREAKFAST (ONE- HALF HOUR BEFORE MEAL). tamsulosin (FLOMAX) 0.4 mg [...] R05.1 - May use Tessalon Perles or [id number] cold and cough medication as needed for [...] APRN.LEAH This note was partially generated using Isonas voice recognition system. Note was reviewed for accuracy. There may be minor misspellings or grammar miscues with Isonas voice recognition. documented in this encounterKettering Health Main Campus12-11-2022 Instructions* Patient Instructions* Moi Plummer APRN.CNP - 05/10/2022 10:23 AM EST How to Manage Common Symptoms Associated with COVID for Adults Fever- Fever is a temperature over 100.4 F and can occur when the body is fighting an infection. Tohelp treat a fever: Drink plenty of fluids [...] your chest such as Vicks, which can helpreduce cough. Try cough drops. Avoid smoking and other strong odors or perfumes. Try breathing exercises to keep your lungs open and clear. Take a big deep breath through your noseand hold for 5 seconds before slowly releasing. [...] of water every 10-15 minutes and increase astolerated. You can try sucking an ice cube [...] or concerning to you. documented in this encounterKettering Health [facility] Campus12-11-2022 History of Present illness Narrative* Moi Plummer APRN.LEAH - 05/10/2022 10:11 AM EST Subjective HPI Nontoxic-appearing male presents urgent care [...] other lower urinary tract symptoms (LUTS) 07/05/2007 rn long term care (current) use of inhaled steroids Lumbar discogenic [...] capsule TAKE 1 CAPSULE DAILY BEFORE BREAKFAST (ONE- HALF HOUR BEFORE MEAL). tamsulosin (FLOMAX) 0.4 mg [...] 88.5 kg (195 lb) SpO2 95% BMI 29.74kg/m Hr 88 Review of Systems Constitutional: Positive [...] of care. This note was generated using Isonas software. It may contain errors in wording, punctuation, or spelling. Moi Plummer APRN.LEAH documented in this encounterKettering Health [facility] Campus12-04-2022 History of Present illness Narrative* Camila Comer APRN.LEAH - 05/03/2022 12:30 PM EST CC: Patient presents with: Cough: Pt reported [...] kg (175 lb 6.4 oz) SpO2 95% BMI26.75 kg/m General appearance: alert, cooperative, pleasant, in [...] other lower urinary tract symptoms (LUTS) 07/05/2007 [facility] (current) use of inhaled steroids Lumbar discogenic [...] capsule TAKE 1 CAPSULE DAILY BEFORE BREAKFAST (ONE- HALF HOUR BEFORE MEAL). tamsulosin (FLOMAX) 0.4 mg [...] Patient agreeable to treatment plan. Camila Comer APRN.CNP documented in this encounterKettering Health [facility] Campus12-01-2022 Miscellaneous Notes* Telephone Encounter - Bere Goodman LPN - 04/30/2022 10:30 AM EST Patient notified of results, verbalizes understanding of instructions. Bere Goodman LPN * Telephone Encounter - Betty Barraza APRN.CNP - 04/30/2022 9:14 AM EST Can you please call the patient and let him know that his flu and COVID test were negative. I would still recommend that he continue supportive care at home, may use any [id number] coldand cough medications as needed for symptom management. As discussed during office visit if congestion and sinus drainage is getting worse I can send in anantibiotic. Please let me know how he is doing. Thank you. Betty Barraza APRN.CNP documented in this encounterKettering Health [facility] Campus11-11-2022 History of Present illness Narrative* Becky Fierro PA-C - 04/10/2022 8:56 AM EST Patient: Valentina Cabrera PCP: Jd Solis MD CC: cough and SOB HPI: [...] until he developed Covid in May 2021. Patientwas not hospitalized nor did he require treatment. [...] hemoptysis. Stopped taking Mucinex, wasn't making a difference. No wheezing. No dyspnea at rest. Exertional [...] other lower urinary tract symptoms (LUTS) 07/05/2007 [facility] (current) use of inhaled steroids Lumbar discogenic [...] capsule TAKE 1 CAPSULE DAILY BEFORE BREAKFAST (ONE- HALF HOUR BEFORE MEAL). tamsulosin (FLOMAX) 0.4 mg [...] normal. Affect normal. No tremor. DATA: [facility] 2014: Negative for bronchial hyperactivity. FEV1 8% decrease Exhaled nitric oxide (Fiorella), 03/11/2022: 22 (normal < 20). PFT, 03/11/2022 IMPRESSION: Spirometry is normal. The RV and RV/TLC are elevated indicating air trapping. Electronically Signed On 03-11-2022 13:12:56 EDT by Genie Bustamante M.D. ASSESSMENT/PLAN: 1. Cough variant asthma - [...] minutes prior to activities associated with shortness ofbreath, and as needed for rescue relief of shortness of breath or wheezing, up to 4 times daily. Up to date on annual influenza, pneumococcal and Covid 19 vaccines. 2. SOB (shortness of breath) - ICD9: 786.05, ICD10: R06.02 See #1. 3. History of environmental allergies - ICD9: V15.09, ICD10: Z91.09 Previously on immunotherapy per [facility], however, stopped with the pandemic. Will check labs and consider adding Singulair to regimen. - IGE BLD - EOSINOPHIL ABS COUNT - [facility] 4. 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 Advised him that Flomax and Prilosec were refilled for a year supply on 03/19/22 to [facility]. Pt thinks they had an error on [facility]. Marilin Schaffer Ma * Telephone Encounter - Phyllis Melchor Pss - 03/20/2022 2:33 PM EDT Patient is calling stating [facility] and stated his medications was denied. documented in this encounterKettering Health [facility] Campus10-20-2022 Miscellaneous Notes* Telephone Encounter - Jd Solis MD - 03/19/2022 8:41 AM EDT OK to refill as ordered Jd Solis MD * Telephone Encounter - Bere Goodman LPN - 03/19/2022 7:05 AM EDT Patient phones requesting refills as follows: Requested [...] advise. Bere Goodman LPN documented in this encounterKettering Health [facility] Campus10-13-2022 Miscellaneous Notes* Telephone Encounter - Bessy Barron LPN - 03/12/2022 3:12 PM EDT See separate phone encounter. Bessy Barron LPN documented in this encounterKettering Health Main Campus10-12-2022 History of Present illness Narrative* Jd Solis MD - 03/11/2022 1:00 PM EDT Chief Complaint Patient presents with: F/U 6 [...] and Pulmonary due to increased sob and fatigue.Recently treated with abx and Prednisone due to symptoms. None of the treatments have helped him. Had PFT completed this morning. Pt has been off the Asmanex 110 mcg inhaler for the past week due to t esting. Unsure of when he's supposed to resume [...] other lower urinary tract symptoms (LUTS) 07/05/2007 [facility] (current) use of inhaled steroids Lumbar discogenic [...] Lymph (Normal + Reac* 02/23/2022 6.15 (A) [place]% 02/23/2022 5.0 Abs [place] 02/23/2022 0.70 Eosin% 02/23/2022 1.0 Abs Eosin 02/23/2022 0.14 Baso% 02/23/2022 0.0 Abs Baso 02/23/2022 0.00 Realym% 02/23/2022 1.0 [place] % 02/23/2022 2.0 Myelo % 02/23/2022 1.0 [...] Lymph% 01/26/2022 35.8 Abs Lymph 01/26/2022 2.61 [place]% 01/26/2022 7.0 Abs [place] 01/26/2022 0.51 Eosin% 01/26/2022 0.5 Abs Eosin [...] Past Histories independently gathered by the clinical web support engineer and the remaining scribed note accurately describes my personal service to the patient. Medical Decision Making: Problems: Moderate: 2+ stable chronic illnesses Risk: Moderate: Drug management Medical Decision Making Level: 4 - Moderate Jd Solis MD The documentation for this note was completed by Natalie Youngblood Ma acting as scribe for Jd Solis MD. March 11, 2022 1:26 PM. Natalie Youngblood Ma documented in this encounterKettering Health [facility] Campus10-12-2022 Procedure note* MAICOL Velazco - 03/11/2022 9:12 AM EDTAssociated Order(s): NITRIC OXIDE, EXHALED RESPIRATORY THERAPY ORAL EXHALED [...] 2022 TIME: 9:13 AM documented in this encounterKettering Health [facility] Campus10-12-2022 History of Present illness Narrative* MAICOL Velazco - 03/11/2022 9:11 AM EDT PULM FUNCTION SMARTBLOCK: Provider: Genie Bustamante MD Assisting Tech: MAICOL Velazco Spirometry: 1 LV - Box: 1 Exhaled Nitric Oxide: 1 documented in this encounterKettering Health Main Campus09-30-2022 History of Present illness Narrative* Genie Bustamante MD - 02/27/2022 1:30 PM EDT Images from the original note were not included. . Respiratory Burton Note Patient name: Valentina Cabrera PCP: Jd Solis MD CC: Shortness of breath HPI: Valentina Cabrera 77 year old male never smoker with PMH significant for HTN, GERD, BPH, allergies on IT (stopped with COVID pandemic), depression last seen in pulmonary clinic in 2016 for chronic cough. DAMARI negative. Referred to Dr. Roca for possible VCD. Due to persistent cough, he wasstarted on had been on Asmanex by his PCP which she has been taking for for 8-10 years. Cough completely resolves with use of ICS. He was doing well until he developed COVID infection 05/2021. At thattime he had severe coughing. He was not [...] steroids. Chest x-ray without any infiltrates. DATA: [facility] 2014: Negative for bronchial hyperactivity. [...] 1.00 - 4.00 k/uL 6.15 High 2.61 [place]% % 5.0 7.0 Abs [place] <0.87 k/uL 0.70 0.51 Eosin% % 1.0 0.5 Abs Eosin <0.46 k/uL 0.14 0.04 Baso% % 0.0 0.3 Abs Baso <0.11 k/uL 0.00 <0.03 Realym% % 1.0 [place] % % 2.0 Myelo % % 1.0 [...] other lower urinary tract symptoms (LUTS) 07/05/2007 [facility] (current) use of inhaled steroids Lumbar discogenic [...] negative. Patient instructed to hold his Asmanex fornow until updated pulmonary function testing -Depending on [...] post COVID syndrome Genie Bustamante MD Respiratory Burton documented in this encounterKettering Health [facility] Campus09-28-2022 Miscellaneous Notes* Telephone Encounter - Bere Goodman LPN - 02/25/2022 2:31 PM EDT Patient notified of results, verbalizes understanding of instructions. Bere Goodman LPN * Telephone Encounter - Betty Barraza APRN.CNP - 02/25/2022 2:11 PM EDT Can you please call the patient and [...] you. Betty Barraza APRN.LEAH documented in this encounterKettering Health [facility] Campus09-26-2022 History of Present illness Narrative* Ashley Samayoa RT(R) - 02/23/2022 12:10 PM EDT Radiology Service Progress Note PATIENT NAME: Valentina Cabrera DATE OF SERVICE: February 23, 2022 TIME: 12:00 PM PATIENT IDENTITY VERIFICATION COMPLETED USING TWO (2) IDENTIFIERS: Name and Date of confirmedby patient verbally. FALL SCREENING: Has the patient [...] 23, 2022 12:00 PM documented in this encounterKettering Health [facility] Campus09-26-2022 Instructions* Patient Instructions* Betty Barraza APRN.CNP - 02/23/2022 11:46 AM EDT Get lab work & chest Xray done today Start doxycycline twice a day, take with food Continue to take all medication as prescribed Red flag symptoms, go to ER Follow up pending test results or sooner as needed documented in this encounterKettering Health [facility] Campus09-26-2022 History of Present illness Narrative* Betty Barraza APRN.CNP - 02/23/2022 11:40 AM EDT This is a 77 year old male [...] other lower urinary tract symptoms (LUTS) 07/05/2007 [facility] (current) use of inhaled steroids Lumbar discogenic [...] APRN.CNP This note was partially generated using Isonas voice recognition system. Note was reviewed for accuracy. There may be minor misspellings or grammar miscues with Isonas voice recognition. documented in this encounterKettering Health [facility] Campus09-19-2022 Miscellaneous Notes* Telephone Encounter - Martha Mccormick - 02/16/2022 9:39 AM EDT [facility]ormick * Telephone Encounter - Camila Comer APRN.CNP - 02/16/2022 7:10 AM EDT Negative for flu and covid documented in this encounterKettering Health Main [facility] History of Present illness Narrative* Camila Comer APRN.CNP - 02/15/2022 11:24 AM EDT CC: Patient presents with: Flu Like Symptoms: [...] other lower urinary tract symptoms (LUTS) 07/05/2007 [facility] (current) use of inhaled steroids Lumbar discogenic [...] Patient agreeable to treatment plan. Camila Comer APRN.CNP [facility] Instructions* Patient Instructions* Betty Barraza APRN.CNP - 02/06/2022 9:27 AM EDT 1.) Flu/COVID test should be back by tomorrow. 2.) May use [id number] cold and cough medications as needed for symptom management. May use Tylenol for body aches or fever. 3.) Stay well-hydrated and get plenty of rest. 4.) Continue to use your twist inhaler and may use the albuterol inhaler as needed for shortness ofbreath. Any difficulty in breathing you need to go to ER. 5.) If your COVID test comes back positive you are currently past the window for oral treatment however you qualify for monoclonal antibodies. Schedule a virtual visit with a provider/express care and they may place that order for you. 6.) Follow-up as needed. [facility] in [facility] History of Present illness Narrative* Betty Barraza APRN.CNP - 02/06/2022 9:14 AM EDT This is a 77 year old male [...] other lower urinary tract symptoms (LUTS) 07/05/2007 [facility]n long term care (current) use of inhaled steroids Lumbar discogenic [...] APRN.LEAH This note was partially generated using [employer] recognition system. Note was reviewed for accuracy. There may be minor misspellings or grammar miscues with [employer] voice recognition. documented in this encounterK[facility] History of Present illness Narrative* Berkley Roque APRN.PASTE MIXING SUPERVISOR - 12/03/2021 10:29 AM EDT Images from the original note were not [...] which included preparing to see the patient, [id number] patient care, completing clinical documentation, and counseling and educating the patient/family/caregiver, ordering medications/labs and communicating with other healthcare providers. Berkley Roque APRN.CNP December 03, 2021 10:30 AM This note was partially generated using [employer] voice recognition system. Note was reviewed for accuracy. There may be minor misspellings or grammar miscues with [employer] voice recognition. documented in this encounterK[facility]04[facility]22 History of Present illness Narrative* Jd Solis MD - 09/03/2021 1:00 PM EDT Chief Complaint Patient presents with: 6 Month [...] other lower urinary tract symptoms (LUTS) 07/05/2007 rn long term care (current) use of inhaled steroids Lumbar discogenic [...] Past Histories independently gathered by the clinical web support engineer and the remaining scribed note accurately describes my personal service to the patient. Medical Decision Making: Problems: Moderate: 2+ stable chronic illnesses Data: Unique test(s) ordered: 3+ Risk: Moderate: Drug management Medical Decision Making Level: 4 - Moderate Jd Solis MD The documentation for this note was completed by Marilin Schaffer Ma acting as scribe for Jd Solis MD. September 03, 2021 12:51 PM. Marilin Schaffer Ma documented in this encounterK[facility]03-30-2022 Instructions* Patient Instructions* Berkley Roque APRN.CNP - 08/27/2021 11:33 AM EDT Irasema Montgomery, It was good to talk with you today. Below is a summary of the plan that we discussed during your appointment for reference. Of course, if you have any questions or concerns do not hesitate to reach out to me via a message or call. Berkley Velazquez APRN.CNP PLAN AND FOLLOW UP: YOU SHOULD SEEK [...] - Call the National Suicide Hotline at 6-763-JMTYHXC ( ) or 2-794-747-TALK (4143) - Text 4HOPE to 784676 Medication Update: 1. Nortriptyline 50 mg take 1 capsule twice daily with food and peanut butter Next appointment: --Schedule in 3 months or sooner if needed -- You may call the department appointment line at [phone] to schedule your appointment. -- Please call my nurse Kelly at [phone] or send me a message in [employer] with any questions or concerns between appointments. documented in this encounterK[facility]03-30-2022 History of Present illness Narrative* Berkley Roque APRN.CNP - 08/27/2021 11:07 AM EDT Images from the original note were not included. PSYC FOLLOW UP - PSYCHIATRIC PROGRESS NOTE DIAGNOSIS: 1. Recurrent major depression, in full remission GAF: -90-81 Absent or minimal symptoms, good functioning in all areas, interested and involved in awide range of activities, no more than everyday [...] skills and practice CBT techniques from his self- help book. Today Valentina reports, that he is doing well. He increased the Nortriptyline to 100 mg and stopped the Ludiomil. He was able to do this 3 weeks ago. He denies any withdrawal effects. He has been ableto tolerate the Nortriptyline by taking it as [...] which included preparing to see the patient, [id number] patient care, completing clinical documentation, and counseling and educating the patient/family/caregiver, ordering medications/labwork. 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 Neoplasm of uncertain behavior of skin 9 06/12/2014 Shortness of breath 09/01/2006 06/12/2014 Abdominal pain, generalized 03/19/200605/31 documented as of this encounter (statuses as of 08/27/2021) [facility] Narrative* Problem Noted Date Resolved Date Shortness of breath 02/12/2016 06/29/2016 Achilles tendinitis 10/04/2012 04/17/2015 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 Neoplasm of uncertain behavior of skin 9 06/12/2014 Shortness of breath 09/01/2006 06/12/2014 Abdominal pain, generalized 03/19/200605/31 documented as of this encounter (statuses as of 09/04/2021) [facility] Narrative* Problem Noted Date Resolved Date Shortness of breath 02/12/2016 06/29/2016 Achilles tendinitis 10/04/2012 04/17/2015 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 Neoplasm of uncertain behavior of skin 9 06/12/2014 Shortness of breath 09/01/2006 06/12/2014 Abdominal pain, generalized 03/19/200605/31 documented as of this encounter (statuses as of 12/03/2021) [facility] Narrative* Problem Noted Date Resolved Date Shortness of breath 02/12/2016 06/29/2016 Achilles tendinitis 10/04/2012 04/17/2015 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 Neoplasm of uncertain behavior of skin 9 06/12/2014 Shortness of breath 09/01/2006 06/12/2014 Abdominal pain, generalized 03/19/200605/31 documented as of this encounter (statuses as of 02/06/2022) [facility]ative* Problem Noted Date Resolved Date Shortness of breath 02/12/2016 06/29/2016 Achilles tendinitis 10/04/2012 04/17/2015 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 Neoplasm of uncertain behavior of skin 9 06/12/2014 Shortness of breath 09/01/2006 06/12/2014 Abdominal pain, generalized 03/19/200605/31 documented as of this encounter (statuses as of 02/15/2022) [facility] Narrative* Problem Noted Date Resolved Date Shortness of breath 02/12/2016 06/29/2016 Achilles tendinitis 10/04/2012 04/17/2015 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 Neoplasm of uncertain behavior of skin 9 06/12/2014 Shortness of breath 09/01/2006 06/12/2014 Abdominal pain, generalized 03/19/200605/31 documented as of this encounter (statuses as of 02/16/2022) [facility]ative* Problem Noted Date Resolved Date Shortness of breath 02/12/2016 06/29/2016 Achilles tendinitis 10/04/2012 04/17/2015 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 Neoplasm of uncertain behavior of skin 9 06/12/2014 Shortness of breath 09/01/2006 06/12/2014 Abdominal pain, generalized 03/19/200605/31 documented as of this encounter (statuses as of 02/23/2022) [facility] Narrative* Problem Noted Date Resolved Date Shortness of breath 02/12/2016 06/29/2016 Achilles tendinitis 10/04/2012 04/17/2015 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 Neoplasm of uncertain behavior of skin 9 06/12/2014 Shortness of breath 09/01/2006 06/12/2014 Abdominal pain, generalized 03/19/200605/31 documented as of this encounter (statuses as of 02/25/2022) [facility] N[facility]ative* Problem Noted Date Resolved Date Shortness of breath 02/12/2016 06/29/2016 Achilles tendinitis 10/04/2012 04/17/2015 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 Neoplasm of uncertain behavior of skin 9 06/12/2014 Shortness of breath 09/01/2006 06/12/2014 Abdominal pain, generalized 03/19/200605/31 documented as of this encounter (statuses as of 02/27/2022) [facility]* Problem Noted Date Resolved Date Shortness of breath 02/12/2016 06/29/2016 Achilles tendinitis 10/04/2012 04/17/2015 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 Neoplasm of uncertain behavior of skin 9 06/12/2014 Shortness of breath 09/01/2006 06/12/2014 Abdominal pain, generalized 03/19/200605/31 documented as of this encounter (statuses as of 03/11/2022) [facility]* Problem Noted Date Resolved Date Shortness of breath 02/12/2016 06/29/2016 Achilles tendinitis 10/04/2012 04/17/2015 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 Neoplasm of uncertain behavior of skin 9 06/12/2014 Shortness of breath 09/01/2006 06/12/2014 Abdominal pain, generalized 03/19/200605/31 documented as of this encounter (statuses as of 03/12/2022) [facility]* Problem Noted Date Resolved Date Shortness of breath 02/12/2016 06/29/2016 Achilles tendinitis 10/04/2012 04/17/2015 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 Neoplasm of uncertain behavior of skin 9 06/12/2014 Shortness of breath 09/01/2006 06/12/2014 Abdominal pain, generalized 03/19/200605/31 documented as of this encounter (statuses as of 03/12/2022) [facility]* Problem Noted Date Resolved Date Shortness of breath 02/12/2016 06/29/2016 Achilles tendinitis 10/04/2012 04/17/2015 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 Neoplasm of uncertain behavior of skin 9 06/12/2014 Shortness of breath 09/01/2006 06/12/2014 Abdominal pain, generalized 03/19/200605/31 documented as of this encounter (statuses as of 03/16/2022) [facility]* Problem Noted Date Resolved Date Shortness of breath 02/12/2016 06/29/2016 Achilles tendinitis 10/04/2012 04/17/2015 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 Neoplasm of uncertain behavior of skin 9 06/12/2014 Shortness of breath 09/01/2006 06/12/2014 Abdominal pain, generalized 03/19/200605/31 documented as of this encounter (statuses as of 03/17/2022) [facility]* Problem Noted Date Resolved Date Shortness of breath 02/12/2016 06/29/2016 Achilles tendinitis 10/04/2012 04/17/2015 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 Neoplasm of uncertain behavior of skin 9 06/12/2014 Shortness of breath 09/01/2006 06/12/2014 Abdominal pain, generalized 03/19/200605/31 documented as of this encounter (statuses as of 03/19/2022) [facility]* Problem Noted Date Resolved Date Shortness of breath 02/12/2016 06/29/2016 Achilles tendinitis 10/04/2012 04/17/2015 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 Neoplasm of uncertain behavior of skin 9 06/12/2014 Shortness of breath 09/01/2006 06/12/2014 Abdominal pain, generalized 03/19/200605/31 documented as of this encounter (statuses as of 03/20/2022) [facility]* Problem Noted Date Resolved Date Shortness of breath 02/12/2016 06/29/2016 Achilles tendinitis 10/04/2012 04/17/2015 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 Neoplasm of uncertain behavior of skin 9 06/12/2014 Shortness of breath 09/01/2006 06/12/2014 Abdominal pain, generalized 03/19/200605/31 documented as of this encounter (statuses as of 04/01/2022) [facility]* Problem Noted Date Resolved Date Shortness of breath 02/12/2016 06/29/2016 Achilles tendinitis 10/04/2012 04/17/2015 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 Neoplasm of uncertain behavior of skin 9 06/12/2014 Shortness of breath 09/01/2006 06/12/2014 Abdominal pain, generalized 03/19/200605/31 documented as of this encounter (statuses as of 04/10/2022) [facility]* Problem Noted Date Resolved Date Shortness of breath 02/12/2016 06/29/2016 Achilles tendinitis 10/04/2012 04/17/2015 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 Neoplasm of uncertain behavior of skin 9 06/12/2014 Shortness of breath 09/01/2006 06/12/2014 Abdominal pain, generalized 03/19/200605/31 documented as of this encounter (statuses as of 04/30/2022) [facility]* Problem Noted Date Resolved Date Shortness of breath 02/12/2016 06/29/2016 Achilles tendinitis 10/04/2012 04/17/2015 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 Neoplasm of uncertain behavior of skin 200 9 06/12/2014 Shortness of breath 09/01/2006 06/12/2014 Abdominal pain, generalized 03/19/200605/31 documented as of this encounter (statuses as of 05/03/2022) [facility]* Problem Noted Date Resolved Date Shortness of breath 02/12/2016 06/29/2016 Achilles tendinitis 10/04/2012 04/17/2015 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 Neoplasm of uncertain behavior of skin 9 06/12/2014 Shortness of breath 09/01/2006 06/12/2014 Abdominal pain, generalized 03/19/200605/31 documented as of this encounter (statuses as of 05/10/2022) [facility]* Problem Noted Date Resolved Date Shortness of breath 02/12/2016 06/29/2016 Achilles tendinitis 10/04/2012 04/17/2015 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 Neoplasm of uncertain behavior of skin 9 06/12/2014 Shortness of breath 09/01/2006 06/12/2014 Abdominal pain, generalized 03/19/200605/31 documented as of this encounter (statuses as of 05/13/2022) [facility]* Problem Noted Date Resolved Date Shortness of breath 02/12/2016 06/29/2016 Achilles tendinitis 10/04/2012 04/17/2015 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 Neoplasm of uncertain behavior of skin 9 06/12/2014 Shortness of breath 09/01/2006 06/12/2014 Abdominal pain, generalized 03/19/200605/31 documented as of this encounter (statuses as of 07/09/2022) [facility]* Problem Noted Date Resolved Date Shortness of breath 02/12/2016 06/29/2016 Achilles tendinitis 10/04/2012 04/17/2015 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 Neoplasm of uncertain behavior of skin 9 06/12/2014 Shortness of breath 09/01/2006 06/12/2014 Abdominal pain, generalized 03/19/200605/31 documented as of this encounter (statuses as of 08/19/2022) [facility]* Problem Noted Date Resolved Date Shortness of breath 02/12/2016 06/29/2016 Achilles tendinitis 10/04/2012 04/17/2015 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 Neoplasm of uncertain behavior of skin 9 06/12/2014 Shortness of breath 09/01/2006 06/12/2014 Abdominal pain, generalized 03/19/200605/31 documented as of this encounter (statuses as of 08/24/2022) [facility]* Problem Noted Date Resolved Date Shortness of breath 02/12/2016 06/29/2016 Achilles tendinitis 10/04/2012 04/17/2015 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 Neoplasm of uncertain behavior of skin 9 06/12/2014 Shortness of breath 09/01/2006 06/12/2014 Abdominal pain, generalized 03/19/200605/31 documented as of this encounter (statuses as of 09/08/2022) [facility]* Problem Noted Date Resolved Date Shortness of breath 02/12/2016 06/29/2016 Achilles tendinitis 10/04/2012 04/17/2015 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 Neoplasm of uncertain behavior of skin 9 06/12/2014 Shortness of breath 09/01/2006 06/12/2014 Abdominal pain, generalized 03/19/200605/31 documented as of this encounter (statuses as of 09/18/2022) [facility]* Problem Noted Date Diagnosed Date Resolved Date Shortness of breath 02/12/2016 06/29/19 17 Achilles tendinitis 10/04/2012 04/17/20 15 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 03/25/20 09 06/12/2014 Neoplasm of uncertain behavior of skin 01/23/2009 06/12/2014 Shortness of breath 09/01/2006 06/12/19 15 Abdominal pain, generalized 03/19/2006 06/12/2014 documented as of this encounter (statuses as of 12/07/2022) [facility]* Problem Noted Date Diagnosed Date Resolved Date Shortness of breath 02/12/2016 06/29/19 17 Achilles tendinitis 10/04/2012 04/17/20 15 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 03/25/20 09 06/12/2014 Neoplasm of uncertain behavior of skin 01/23/2009 06/12/2014 Shortness of breath 09/01/2006 06/12/19 15 Abdominal pain, generalized 03/19/2006 06/12/2014 documented as of this encounter (statuses as of 12/10/2022) [facility] Problem Noted Date Diagnosed Date Resolved Date Shortness of breath 02/12/2016 06/29/19 17 Achilles tendinitis 10/04/2012 04/17/20 15 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 03/25/20 09 06/12/2014 Neoplasm of uncertain behavior of skin 01/23/2009 06/12/2014 Shortness of breath 09/01/2006 06/12/19 15 Abdominal pain, generalized 03/19/2006 06/12/2014 documented as of this encounter (statuses as of 12/10/2022) [facility] Problem Noted Date Diagnosed Date Resolved Date Shortness of breath 02/12/2016 06/29/19 17 Achilles tendinitis 10/04/2012 04/17/20 15 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 03/25/20 09 06/12/2014 Neoplasm of uncertain behavior of skin 01/23/2009 06/12/2014 Shortness of breath 09/01/2006 06/12/19 15 Abdominal pain, generalized 03/19/2006 06/12/2014 documented as of this encounter (statuses as of 12/11/2022) [facility] Problem Noted Date Diagnosed Date Resolved Date Shortness of breath 02/12/2016 06/29/19 17 Achilles tendinitis 10/04/2012 04/17/20 15 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 03/25/20 09 06/12/2014 Neoplasm of uncertain behavior of skin 01/23/2009 06/12/2014 Shortness of breath 09/01/2006 06/12/19 15 Abdominal pain, generalized 03/19/2006 06/12/2014 documented as of this encounter (statuses as of 12/28/2022) [facility]* Problem Noted Date Diagnosed Date Resolved Date Shortness of breath 02/12/2016 06/29/19 17 Achilles tendinitis 10/04/2012 04/17/20 15 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 03/25/2006/12/2014 Neoplasm of uncertain behavior of skin 01/23/2009 06/12/2014 Shortness of breath 09/01/2006 06/12/19 15 Abdominal pain, generalized 03/19/2006 06/12/2014 documented as of this encounter (statuses as of 01/21/2023) [facility]* Problem Noted Date Diagnosed Date Resolved Date Shortness of breath 02/12/2016 06/29/19 17 Achilles tendinitis 10/04/2012 04/17/20 15 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 03/25/2006/12/2014 Neoplasm of uncertain behavior of skin 01/23/2009 06/12/2014 Shortness of breath 09/01/2006 06/12/19 15 Abdominal pain, generalized 03/19/2006 06/12/2014 documented as of this encounter (statuses as of 03/09/2023) [facility]* Problem Noted Date Diagnosed Date Resolved Date Shortness of breath 02/12/2016 06/29/19 17 Achilles tendinitis 10/04/2012 04/17/20 15 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 03/25/20 09 06/12/2014 Neoplasm of uncertain behavior of skin 01/23/2009 06/12/2014 Shortness of breath 09/01/2006 06/12/19 15 Abdominal pain, generalized 03/19/2006 06/12/2014 documented as of this encounter (statuses as of 04/02/2023) [facility]* Problem Noted Date Diagnosed Date Resolved Date Shortness of breath 02/12/2016 06/29/19 17 Achilles tendinitis 10/04/2012 04/17/20 15 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 03/25/20 09 06/12/2014 Neoplasm of uncertain behavior of skin 01/23/2009 06/12/2014 Shortness of breath 09/01/2006 06/12/19 15 Abdominal pain, generalized 03/19/2006 06/12/2014 documented as of this encounter (statuses as of 04/19/2023) [facility]* Problem Noted Date Diagnosed Date Resolved Date Shortness of breath 02/12/2016 06/29/19 17 Achilles tendinitis 10/04/2012 04/17/20 15 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 03/25/20 09 06/12/2014 Neoplasm of uncertain behavior of skin 01/23/2009 06/12/2014 Shortness of breath 09/01/2006 06/12/19 15 Abdominal pain, generalized 03/19/2006 06/12/2014 documented as of this encounter (statuses as of 05/03/2023) [facility]* Problem Noted Date Diagnosed Date Resolved Date Shortness of breath 02/12/2016 06/29/19 17 Achilles tendinitis 10/04/2012 04/17/20 15 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 03/25/20 09 06/12/2014 Neoplasm of uncertain behavior of skin 01/23/2009 06/12/2014 Shortness of breath 09/01/2006 06/12/19 15 Abdominal pain, generalized 03/19/2006 06/12/2014 documented as of this encounter (statuses as of 07/02/2023) [facility] Recurrent major depressive disorder, in full remission (HCC)- Primary [facility] Diagnosis Essential hypertension, benign- Primary Encounter for hepatitis C screening test for low risk patient Benign non-nodular prostatic hyperplasia with lower urinary tract symptoms Recurrent major depressive disorder, in full remission (HCC) [facility] Diagnosis Recurrent major depressive disorder, in full remission (HCC)- Primary [facility] Diagnosis Viral illness- Primary Unspecified viral infection, in conditions classified elsewhere and of unspecified site Acute cough [facility]* Diagnosis At increased risk of exposure to COVID-19 virus- Primary [facility]* Diagnosis SOB (shortness of breath)- Primary Shortness of breath Bronchitis Bronchitis, not specified as acute or chronic Fatigue, unspecified type [facility] [facility] Diagnosis SOB (shortness of breath)- Primary Shortness of breath 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 History of environmental allergies Other allergy, other than to medicinal agents History of COVID-19 [facility] Diagnosis SOB (shortness of breath) Shortness of breath [facility] Diagnosis SOB (shortness of breath) Shortness of breath [facility] Diagnosis Essential hypertension, benign- Primary Recurrent major depressive disorder, in full remission (HCC) Benign non-nodular prostatic hyperplasia with lower urinary tract symptoms SOB (shortness of breath) Shortness of breath Fatigue, unspecified type Thrombocyte disorder (HCC) Qualitative platelet defects [facility] Diagnosis Cough variant asthma- Primary SOB (shortness of breath) Shortness of breath History of environmental allergies Other allergy, other than to medicinal agents History of COVID-19 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 [facility] Diagnosis URI, acute- Primary Acute upper respiratory infections of unspecified site Rhinosinusitis Unspecified sinusitis (chronic) [facility] Diagnosis Viral illness- Primary Unspecified viral infection, in conditions classified elsewhere and of unspecified site Acute cough [facility] Diagnosis SOB (shortness of breath)- Primary Shortness of breath Acute cough Moderate persistent asthma without complication Unspecified asthma [facility] Diagnosis Cough variant asthma- Primary [facility] Diagnosis Rib pain on right side- Primary Chest pain, unspecified [facility] Diagnosis SOB (shortness of breath) Shortness of breath [facility] Diagnosis Essential hypertension, benign- Primary Recurrent major depressive disorder, in full remission (HCC) Benign non-nodular prostatic hyperplasia with lower urinary tract symptoms Moderate persistent asthma without complication Unspecified asthma Musculoskeletal pain Mylagia and myositis, unspecified Thrombocyte disorder (HCC) Qualitative platelet defects Elevated glucose Other abnormal glucose [facility] Diagnosis Cough variant asthma documented in this encounter [facility] note* Diagnosis Cough variant asthma- Primary SOB (shortness of breath) Shortness of breath History of environmental allergies Other allergy, other than to medicinal agents [facility] Diagnosis Cough variant asthma- Primary Gastroesophageal reflux disease, unspecified whether esophagitis present History of environmental allergies Other allergy, other than to medicinal agents History of COVID-19 documented in this encounter [facility] note* Diagnosis Essential hypertension, benign- Primary Moderate persistent asthma without complication Unspecified asthma Benign non-nodular prostatic hyperplasia with lower urinary tract symptoms Recurrent major depressive disorder, in full remission (HCC) Anxiety Anxiety state, unspecified Low platelet count (HCC) documented in this encounter [facility] noteNo assessment information availableWSelect [facility] Work Phone: [facility] note* Diagnosis PERSON (dyspnea on exertion) Other dyspnea and respiratory abnormality Essential hypertension, benign [facility] Diagnosis SOB (shortness of breath) Shortness of breath Cough variant asthma [facility] Diagnosis SOB (shortness of breath) Shortness of breath Cough variant asthma [facility]* Diagnosis Hypertension, essential Unspecified essential hypertension documented in this encounter [facility] note* Diagnosis Onset Date Resolution Status SOB (shortness of breath) ac sonja Hypertension [facility] Work Phone: Evaluation note* Diagnosis Cough variant asthma documented in this encounter [facility] note* Diagnosis Mild persistent asthma without complication- Primary Unspecified asthma Seasonal allergies Allergic rhinitis, cause unspecified [facility] Diagnosis URI, acute- Primary Acute upper respiratory infections of unspecified site documented in this encounter [facility] note* Diagnosis Subacute cough- Primary Cough History of COVID-19 Mild persistent asthma without complication Unspecified asthma Seasonal allergies Allergic rhinitis, cause unspecified Gastroesophageal reflux disease, unspecified whether esophagitis present Tachycardia Tachycardia, unspecified documented in this encounter [facility] note* Diagnosis SOB (shortness of breath) Shortness of breath [facility] Diagnosis Acute cough [facility]* Diagnosis Acute cough [facility]* Diagnosis Small airways disease- Primary Other diseases of lung, not elsewhere classified History of COVID-19 Diaphragm, eventration Congenital anomaly of diaphragm documented in this encounter [facility] for referral (narrative)* Outpatient Procedure (Routine) - Authorized Specialty Diagnoses / Procedures Referred By Contac t Referred To [facility] [place] Diagnoses SOB (shortness of breath) Procedures LUNG VOLUMES Genie Bustamante MD [address] [place] [address] [address] Referral ID Status Reason Start Date Expiration Date Visits Requested Visits Authorized [id number] Authorized Auto-Generat ed Referral 02/27/2022 03/29/2023 1 1 * Outpatient Procedure (Routine) - Authorized Specialty Diagnoses / Procedures Referred By Contac t Referred To [facility] Diagnoses SOB (shortness of breath) Procedures NITRIC OXIDE, EXHALED NITRIC OXIDE GAS DETERMINATION Genie Bustamante MD [address] [place] [address] [place] [id number] Referral ID Status Reason Start Date Expiration Date Visits Requested Visits Authorized [id number] Authorized Auto-Generat ed Referral 02/27/2022 03/29/2023 1 1 * Outpatient Procedure (Routine) - Authorized Specialty Diagnoses / Procedures [facility] Diagnoses SOB (shortness of breath) Procedures SPIROMETRY WITH DILATOR IF OBSTRUCTED BRNCDILAT RSPSE SPMTRY PRE&POST-BRNCDILAT Genie Barahona MD [address] [place] [address] [facility] [place] [address] [place] [id number] Referral ID Status Reason Start Date Expiration Date Visits Requested Visits Authorized [id number] Authorized Auto-Generat ed Referral 02/27/2022 03/29/2023 1 1 [facility] for referral (narrative)* Diagnostic Procedure Only (Urgent) - Closed Specialty Diagnoses / Procedures [facility] To [facility] XR [facility]AG[facility] Diagnoses Rib pain on right side Procedures XR RIBS/CHEST 3V AP RIB/OBLS/CXR RIGHT RADEX RIBS UNI W/POSTEROANT CH MINIMUM 3 VIEWS Mich Mathis APRN.CNP [address] [place] [address] Xr Imaging Referral ID Status Reason Start Date Expiration Date V isits Requested Visits Authorized [id number] Closed Auto-Generate d Referral 08/19/2022 09/18/2023 1 1 [facility] for referral (narrative)* Outpatient Procedure (Routine) - Closed Specialty Diagnoses / Procedures [facility] Diagnoses Cough variant asthma Procedures NITRIC OXIDE, EXHALED NITRIC OXIDE GAS DETERMINATION Becky Fierro PA-C [address] [place] [address] [facility] [place] [address] [place] [address] Referral ID Status Reason Start Date Expiration Date V isits Requested Visits Authorized [id number] Closed Auto-Generate d Referral 12/10/2022 01/09/2024 1 1 * Outpatient Procedure (Routine) - Authorized Specialty Diagnoses / Procedures Referred By Contac t Referred To Contact [facility] Diagnoses SOB (shortness of breath) Procedures ECHO ECHO TTHRC R-T 2D W/WOM-MODE COMPL SPEC&COLR Becky Cohen PA-C [address] [place] [address] [facility] [place] [address] [place] [address] Referral ID Status Reason Start Date Expiration Date Visits Requested Visits Authorized [id number] Authorized Auto-Generat ed Referral 12/10/2022 12/10/2023 1 1 [facility] for referral (narrative)* Diagnostic Procedure Only (Routine) - Closed Specialty Diagnoses / Procedures Referred By Contac t Referred To Contact MOLECULAR & FUNCTIONAL IMAGING Diagnoses PERSON (dyspnea on exertion) Essential hypertension, benign Procedures NM CARDIAC PERF STRESS/EXERCISE MYOCARDIAL SPECT MULTIPLE STUDIES Jd Solis MD [address] [place] [address] [facility] [address] [place] [address] Referral ID Status Reason Start Date Expiration Date V isits Requested Visits Authorized [id number] Closed Auto-Generate d Referral 01/04/2023 02/03/2024 1 1 [facility] for referral (narrative)No reason for referral information availableWSelect [facility] Work Phone: Reason for visit Narrative* Diagnostic Procedure Only (Urgent) - Closed Specialty Diagnoses / Procedures Referred By Contac t Referred To Contact XR IMAGING Diagnoses Rib pain on right side Procedures XR RIBS/CHEST 3V AP RIB/OBLS/CXR RIGHT RADEX RIBS UNI W/POSTEROANT CH MINIMUM 3 VIEWS Mich Mathis APRN.PASTE MIXING SUPERVISOR [address] [facility] [place] [address] [place] [address] Referral ID Status Reason Start Date Expiration Date V isits Requested Visits Authorized [id number] Closed Auto-Generate d Referral 08/19/2022 09/18/2023 1 1 [facility] Summary Purpose Family History No Family History Records Found Relationship Condition Age at Onset Recorded Date/T mi mother Depression Unknown Cerebrovascular accident (CVA) Unknown Anxiety Unknown Hypertension Unknown father Malignant neoplasm of pancreas Unknown Advance Directives No Advanced Directives Records FoundDocuments on File Type Date Recorded Patient Visual Merchandising Associate Expl anation Advance Directive(s) 06/18/2020 7:30 AM Advance Directive(s) 06/18/2020 7:26 AM Advance Directive(s) 06/12/2020 9:19 AM Advance Directive(s) 02/07/2015 9:07 AM Documents on File Type Date Recorded Patient Visual Merchandising Associate Expl anation Advance Directive(s) 06/18/2020 7:26 AM Advance Directive(s) 02/07/2015 9:07 AM Documents on File Type Date Recorded Patient Visual Merchandising Associate Expl anation Advance Directive(s) 06/18/2020 7:26 AM Advance Directive(s) 02/07/2015 9:07 AM Documents on File Type Date Recorded Patient Visual Merchandising Associate Expl anation Advance Directive(s) 10/20/2022 8:34 AM Advance Directive(s) 06/18/2020 7:26 AM Documents on File Type Date Recorded Patient Visual Merchandising Associate Expl anation Advance Directive(s) 10/20/2022 8:34 AM Advance Directive(s) 06/18/2020 7:26 AM Advance Directive Response Recorded Date/ Time Advance Directives Yes March 11:36pm Living Will No June 14 1:11pm Power of Icu Manager No June 14, 2021 1:11pm Advance Directive Response Recorded Date/ Time Advance Directives Yes March 10:36pm Living Will No June 14 12:11pm Power of Icu Manager No June 14, 2021 12:11pm Advance Directive Response Recorded Date/ Time Advance Directives Yes March 11:36pm Living Will No August 15, 2023 11:59am Power of Icu Manager No August 14 11:59am Advance Directive Response Recorded Date/ Time Advance Directives on File No Decem 2023 3:04pm Living Will Yes May 29 3:36pm Do you have a Healthcare Power of Icu Manager? Yes May 29, 2024 3:36pm Advance Directives Yes March 11:36pm Advance Directive Response Recorded Date/ Time Advance Directives Yes March 11:36pm Health Concerns Infection Onset Date Last Indicated Resolved Time COVID-19 Rule-Out 02/15/2022 02/15/2022 Infection Onset Date Last Indicated Resolved Time COVID-19 Rule-Out 02/15/2022 02/15/2022 02/16/2022 1:09 AM EDT Infection Onset Date Last Indicated Resolved Time COVID-19 Rule-Out 05/10/2022 05/10/2022 Chief Complaint and Reason for Visit Chief Complaint Z00.00 Chief Complaint Z00.00 SCREENING SOB (RICKY) Reason for Visit SOB (shortness of br eath) Hypertension Chief Complaint SOB (RICKY) NAUSEA Reason for Visit SOB (shortness of br eath) Hypertension Chief Complaint Admit Date wound May 10, 2024 12:26pm wound May 17, 2024 9:00am wound May 17, 2024 10:47am chronic bronchitis May 29, 2024 1:44pm chronic bronchitis, unspecified asthma J anuary 2024 10:00am chronic bronchitis, unspecified asthma F ebruary 2024 10:00am chronic bronchitis, unspecified asthma [facility] 2024 10:00am Reason for Visit Admit Date Nonhealing nonsurgical wound May 172023 9:00am Skin tear of forearm without complicatio n May 17, 2024 9:00am Wound, open, arm, forearm May 17, 2024 9:00am Chief Complaint Admit Date wound May 10, 2024 12:26pm wound May 17, 2024 9:00am wound May 17, 2024 10:47am chronic bronchitis May 29, 2024 1:44pm chronic bronchitis, unspecified asthma J anuary 2024 10:00am chronic bronchitis, unspecified asthma F ebruary 2024 10:00am chronic bronchitis, unspecified asthma [facility] 2024 10:00am Chief Complaint Admit Date chronic bronchitis May 29, 2024 1:44pm chronic bronchitis, unspecified asthma J anuary 2024 10:00am chronic bronchitis, unspecified asthma F ebruary 2024 10:00am chronic bronchitis, unspecified asthma [facility] 2024 10:00am chronic bronchitis, unspecified asthma A pri2024 10:00am Chief Complaint Admit Date chronic bronchitis, unspecified asthma F ebruary 2024 10:00am chronic bronchitis, unspecified asthma M arch 2024 10:00am chronic bronchitis, unspecified asthma A pri2024 10:00am chronic bronchitis, unspecified asthma M ay 2024 10:00am Additional Source Comments (unrecognized sect ion and content) No Status Records FoundNo Status Records FoundNo Status Records Found INFORMATION SOURCE (unrecogn ized section and content) DATE CREATED AUTHOR 09/07/2020 [facility] DATE CREATED AUTHOR AUTHOR'S ORGANIZ ATION 05/28/2024 [facility] DATE CREATED AUTHOR AUTHOR'S ORGANIZ ATION 10/29/2024 [facility] Source Comments (unrecognize d section and content) In the event this informatio n is protected by the Federal Confidentiality of Alcohol and Drug Abuse Patient Records regulations: The Federal rules restrict any use of the information to criminally investigate or prosecute any alcohol or drug abuse patient.[facility] the event this information is protected by the Federal Confidentiality of Alcohol and Drug Abuse Patient Records regulations: The Federal rules restrict any use of the information to criminally investigate or prosecute any alcohol or drug abuse patient.[facility] the event this information is protected by the Federal Confidentiality of Alcohol and Drug Abuse Patient Records regulations: The Federal rules restrict any use of the information to criminally investigate or prosecute any alcohol or drug abuse patient.[facility] the event this information is protected by the Federal Confidentiality of Alcohol and Drug Abuse Patient Records regulations: The Federal rules restrict any use of the information to criminally investigate or prosecute any alcohol or drug abuse patient.[facility] the event this information is protected by the Federal Confidentiality of Alcohol and Drug Abuse Patient Records regulations: The Federal rules restrict any use of the information to criminally investigate or prosecute any alcohol or drug abuse patient.[facility] the event this information is protected by the Federal Confidentiality of Alcohol and Drug Abuse Patient Records regulations: The Federal rules restrict any use of the information to criminally investigate or prosecute any alcohol or drug abuse patient.[facility] the event this information is protected by the Federal Confidentiality of Alcohol and Drug Abuse Patient Records regulations: The Federal rules restrict any use of the information to criminally investigate or prosecute any alcohol or drug abuse patient.[facility] the event this information is protected by the Federal Confidentiality of Alcohol and Drug Abuse Patient Records regulations: The Federal rules restrict any use of the information to criminally investigate or prosecute any alcohol or drug abuse patient.[facility] the event this information is protected by the Federal Confidentiality of Alcohol and Drug Abuse Patient Records regulations: The Federal rules restrict any use of the information to criminally investigate or prosecute any alcohol or drug abuse patient.[facility] the event this information is protected by the Federal Confidentiality of Alcohol and Drug Abuse Patient Records regulations: The Federal rules restrict any use of the information to criminally investigate or prosecute any alcohol or drug abuse patient.[facility] the event this information is protected by the Federal Confidentiality of Alcohol and Drug Abuse Patient Records regulations: The Federal rules restrict any use of the information to criminally investigate or prosecute any alcohol or drug abuse patient.[facility] the event this information is protected by the Federal Confidentiality of Alcohol and Drug Abuse Patient Records regulations: The Federal rules restrict any use of the information to criminally investigate or prosecute any alcohol or drug abuse patient.[facility] the event this information is protected by the Federal Confidentiality of Alcohol and Drug Abuse Patient Records regulations: The Federal rules restrict any use of the information to criminally investigate or prosecute any alcohol or drug abuse patient.[facility] Campus[facility] the event this information is protected by the Federal Confidentiality of Alcohol and Drug Abuse Patient Records regulations: The Federal rules restrict any use of the information to criminally investigate or prosecute any alcohol or drug abuse patient.[facility] the event this information is protected by the Federal Confidentiality of Alcohol and Drug Abuse Patient Records regulations: The Federal rules restrict any use of the information to criminally investigate or prosecute any alcohol or drug abuse patient.[facility] the event this information is protected by the Federal Confidentiality of Alcohol and Drug Abuse Patient Records regulations: The Federal rules restrict any use of the information to criminally investigate or prosecute any alcohol or drug abuse patient.[facility] the event this information is protected by the Federal Confidentiality of Alcohol and Drug Abuse Patient Records regulations: The Federal rules restrict any use of the information to criminally investigate or prosecute any alcohol or drug abuse patient.[facility] the event this information is protected by the Federal Confidentiality of Alcohol and Drug Abuse Patient Records regulations: The Federal rules restrict any use of the information to criminally investigate or prosecute any alcohol or drug abuse patient.[facility] Campus[facility] the event this information is protected by the Federal Confidentiality of Alcohol and Drug Abuse Patient Records regulations: The Federal rules restrict any use of the information to criminally investigate or prosecute any alcohol or drug abuse patient.[facility] Campus[facility] the event this information is protected by the Federal Confidentiality of Alcohol and Drug Abuse Patient Records regulations: The Federal rules restrict any use of the information to criminally investigate or prosecute any alcohol or drug abuse patient.[facility] CampusIn the event this information is protected by the Federal Confidentiality of Alcohol and Drug Abuse Patient Records regulations: The Federal rules restrict any use of the information to criminally investigate or prosecute any alcohol or drug abuse patient.[facility] Campus[facility] the event this information is protected by the Federal Confidentiality of Alcohol and Drug Abuse Patient Records regulations: The Federal rules restrict any use of the information to criminally investigate or prosecute any alcohol or drug abuse patient.[facility] Campus[facility] the event this information is protected by the Federal Confidentiality of Alcohol and Drug Abuse Patient Records regulations: The Federal rules restrict any use of the information to criminally investigate or prosecute any alcohol or drug abuse patient.[facility] Campus[facility] the event this information is protected by the Federal Confidentiality of Alcohol and Drug Abuse Patient Records regulations: The Federal rules restrict any use of the information to criminally investigate or prosecute any alcohol or drug abuse patient.[facility] Campus[facility] the event this information is protected by the Federal Confidentiality of Alcohol and Drug Abuse Patient Records regulations: The Federal rules restrict any use of the information to criminally investigate or prosecute any alcohol or drug abuse patient.[facility] Campus[facility] the event this information is protected by the Federal Confidentiality of Alcohol and Drug Abuse Patient Records regulations: The Federal rules restrict any use of the information to criminally investigate or prosecute any alcohol or drug abuse patient.[facility] Campus[facility] the event this information is protected by the Federal Confidentiality of Alcohol and Drug Abuse Patient Records regulations: The Federal rules restrict any use of the information to criminally investigate or prosecute any alcohol or drug abuse patient.[facility] Campus[facility] the event this information is protected by the Federal Confidentiality of Alcohol and Drug Abuse Patient Records regulations: The Federal rules restrict any use of the information to criminally investigate or prosecute any alcohol or drug abuse patient.[facility] Campus[facility] the event this information is protected by the Federal Confidentiality of Alcohol and Drug Abuse Patient Records regulations: The Federal rules restrict any use of the information to criminally investigate or prosecute any alcohol or drug abuse patient.[facility] Campus[facility] the event this information is protected by the Federal Confidentiality of Alcohol and Drug Abuse Patient Records regulations: The Federal rules restrict any use of the information to criminally investigate or prosecute any alcohol or drug abuse patient.[facility] Campus[facility] the event this information is protected by the Federal Confidentiality of Alcohol and Drug Abuse Patient Records regulations: The Federal rules restrict any use of the information to criminally investigate or prosecute any alcohol or drug abuse patient.[facility] CampusIn the event this information is protected by the Federal Confidentiality of Alcohol and Drug Abuse Patient Records regulations: The Federal rules restrict any use of the information to criminally investigate or prosecute any alcohol or drug abuse patient.[facility] CampusIn the event this information is protected by the Federal Confidentiality of Alcohol and Drug Abuse Patient Records regulations: The Federal rules restrict any use of the information to criminally investigate or prosecute any alcohol or drug abuse patient.[facility] CampusIn the event this information is protected by the Federal Confidentiality of Alcohol and Drug Abuse Patient Records regulations: The Federal rules restrict any use of the information to criminally investigate or prosecute any alcohol or drug abuse patient.[facility] CampusIn the event this information is protected by the Federal Confidentiality of Alcohol and Drug Abuse Patient Records regulations: The Federal rules restrict any use of the information to criminally investigate or prosecute any alcohol or drug abuse patient.[facility] CampusIn the event this information is protected by the Federal Confidentiality of Alcohol and Drug Abuse Patient Records regulations: The Federal rules restrict any use of the information to criminally investigate or prosecute any alcohol or drug abuse patient.[facility] CampusIn the event this information is protected by the Federal Confidentiality of Alcohol and Drug Abuse Patient Records regulations: The Federal rules restrict any use of the information to criminally investigate or prosecute any alcohol or drug abuse patient.[facility] CampusIn the event this information is protected by the Federal Confidentiality of Alcohol and Drug Abuse Patient Records regulations: The Federal rules restrict any use of the information to criminally investigate or prosecute any alcohol or drug abuse patient.[facility] CampusIn the event this information is protected by the Federal Confidentiality of Alcohol and Drug Abuse Patient Records regulations: The Federal rules restrict any use of the information to criminally investigate or prosecute any alcohol or drug abuse patient.[facility] CampusIn the event this information is protected by the Federal Confidentiality of Alcohol and Drug Abuse Patient Records regulations: The Federal rules restrict any use of the information to criminally investigate or prosecute any alcohol or drug abuse patient.[facility] CampusIn the event this information is protected by the Federal Confidentiality of Alcohol and Drug Abuse Patient Records regulations: The Federal rules restrict any use of the information to criminally investigate or prosecute any alcohol or drug abuse patient.[facility] CampusIn the event this information is protected by the Federal Confidentiality of Alcohol and Drug Abuse Patient Records regulations: The Federal rules restrict any use of the information to criminally investigate or prosecute any alcohol or drug abuse patient.[facility] CampusIn the event this information is protected by the Federal Confidentiality of Alcohol and Drug Abuse Patient Records regulations: The Federal rules restrict any use of the information to criminally investigate or prosecute any alcohol or drug abuse patient.[facility] CampusIn the event this information is protected by the Federal Confidentiality of Alcohol and Drug Abuse Patient Records regulations: The Federal rules restrict any use of the information to criminally investigate or prosecute any alcohol or drug abuse patient.[facility] CampusIn the event this information is protected by the Federal Confidentiality of Alcohol and Drug Abuse Patient Records regulations: The Federal rules restrict any use of the information to criminally investigate or prosecute any alcohol or drug abuse patient.[facility] CampusIn the event this information is protected by the Federal Confidentiality of Alcohol and Drug Abuse Patient Records regulations: The Federal rules restrict any use of the information to criminally investigate or prosecute any alcohol or drug abuse patient.[facility] CampusIn the event this information is protected by the Federal Confidentiality of Alcohol and Drug Abuse Patient Records regulations: The Federal rules restrict any use of the information to criminally investigate or prosecute any alcohol or drug abuse patient.[facility] CampusIn the event this information is protected by the Federal Confidentiality of Alcohol and Drug Abuse Patient Records regulations: The Federal rules restrict any use of the information to criminally investigate or prosecute any alcohol or drug abuse patient.[facility] CampusIn the event this information is protected by the Federal Confidentiality of Alcohol and Drug Abuse Patient Records regulations: The Federal rules restrict any use of the information to criminally investigate or prosecute any alcohol or drug abuse patient.[facility] CampusIn the event this information is protected by the Federal Confidentiality of Alcohol and Drug Abuse Patient Records regulations: The Federal rules restrict any use of the information to criminally investigate or prosecute any alcohol or drug abuse patient.[facility] CampusIn the event this information is protected by the Federal Confidentiality of Alcohol and Drug Abuse Patient Records regulations: The Federal rules restrict any use of the information to criminally investigate or prosecute any alcohol or drug abuse patient.[facility] CampusIn the event this information is protected by the Federal Confidentiality of Alcohol and Drug Abuse Patient Records regulations: The Federal rules restrict any use of the information to criminally investigate or prosecute any alcohol or drug abuse patient.[facility] CampusIn the event this information is protected by the Federal Confidentiality of Alcohol and Drug Abuse Patient Records regulations: The Federal rules restrict any use of the information to criminally investigate or prosecute any alcohol or drug abuse patient.[facility] Reason for Visit (unrecogniz ed section and content) Reason Comments Follow Up Specialty Diagnoses / Procedures Referred By Anne castanon Referred To Contact Psychiatry / ADULT PSYCHIATRY Diagnoses FOLLOW UP Procedures [facility] ADULT Betty Barraza, WATCHSTANDER.PASTE MIXING SUPERVISOR [address] [place] [address] Berkley Roque, WATCHSTANDER.PASTE MIXING SUPERVISOR [address] [place] [address] Referral ID Status Reason Start Date Expiration Date V isits Requested Visits Authorized [id number] Pending Review 08/27/2021 11/25/2021 1 1 Reason Comments 6 Month Exam Referral ID Status Reason Start Date Expiration Date Visits Re quested Visits Authorized [id number] Closed 08/27/2021 11/25/2021 1 1 Reason Comments [...] DETERMINATION Genie Bustamante MD [address] [place] [address] [address] Referral ID Status Reason Start Date Expiration Date V isits Requested Visits Authorized [id number] Closed Auto-Generate d Referral 02/27/2022 03/29/2023 1 1 Specialty Diagnoses / Procedures Referred By Contac t Referred To Contact [facility] Diagnoses SOB (shortness of breath) Procedures SPIROMETRY WITH DILATOR IF OBSTRUCTED BRNCDILAT RSPSE SPMTRY PRE&POST-BRNCDILAT ADMN Genie Bustamante MD [address] [place] [address] [address] Referral ID Status Reason Start Date Expiration Date V isits Requested Visits Authorized [id number] Closed Auto-Generate d Referral 02/27/2022 03/29/2023 1 1 Specialty Diagnoses / Procedures Referred By Contac t Referred To Contact [facility] Diagnoses SOB (shortness of breath) Procedures LUNG VOLUMES Genie Bustamante MD [address] [place] [address] [address] Referral ID Status Reason Start Date Expiration Date V isits Requested Visits Authorized [id number] Closed Auto-Generate d Referral 02/27/2022 03/29/2023 1 [...] By Contac t Referred To Contact [facility] Diagnoses Cough variant asthma Procedures NITRIC OXIDE, EXHALED NITRIC OXIDE GAS DETERMINATION Becky Fierro PA-C [address] [place] [address] [place] [address] Referral ID Status Reason Start Date Expiration Date V isits Requested Visits Authorized [id number] Closed Auto-Generate d Referral 12/10/2022 01/09/2024 1 1 Reason Comments Established Patient 6 month follow up co ugh variant asthma Reason Comments Medication Problem Not sure of increase of dosage Reason Comments Asthma Reason Comments Radiology NM Specialty Diagnoses / Procedures [facility] MOLECULAR & FUNCTIONAL IMAGING Diagnoses PERSON (dyspnea on exertion) Essential hypertension, benign Procedures NM CARDIAC PERF STRESS/EXERCISE MYOCARDIAL SPECT MULTIPLE STUDIES Jd Solis MD [address] [place] [address] Molecular & Functional Imaging [address] [place] [address] Referral ID Status Reason Start Date Expiration Date V isits Requested Visits Authorized [id number] Closed Auto-Generate d Referral 01/04/2023 02/03/2024 1 1 Specialty Diagnoses / Procedures [facility] Diagnoses SOB (shortness of breath) Cough variant asthma Procedures SPIROMETRY BASELINE ONLY SPMTRY W/VC EXPIRATORY LINDSA[place] W/WO MXML VOL VNTJ Becky Fierro PA-C [address] [place] [address] Res[address] [place] [address] Referral ID Status Reason Start Date Expiration Date V isits Requested Visits Authorized [id number] Closed Auto-Generate d Referral 04/19/2023 05/18/2024 1 1 Specialty Diagnoses / Procedures [facility] Diagnoses SOB (shortness of breath) Cough variant asthma Procedures MIPS/MEPS UNLISTED PULMONARY SERVICE/PROCEDURE Becky Fierro PA-C [address] [place] [address] Respiratory [address] [place] [address] Referral ID Status Reason Start Date Expiration Date V isits Requested Visits Authorized [id number] Closed Auto-Generate d Referral 04/19/2023 05/18/2024 1 1 Reason Comments Medication Problem Reason Comments Established Patient asthma Reason Comments Head Congestion drainage, cough, sor e throat and chest congestion x 2 days Reason Comments Follow Up Asthma Care Teams (unrecognized sec tion and content) Ux Design Lead Relationship Specialty Start Date End Date Jd Solis MD [address] [facility] [place] [address] PCP - General Family Practice 01/01/21 Ux Design Lead Relationship Specialty Start Date End Date Jd Solis MD [address] [facility] [place] [address] PCP - General Family Practice 01/01/21 Ux Design Lead Relationship Specialty Start Date End Date Jd Solis MD [address] [place] [address] PCP - General Family Practice 01/01/21 Ux Design Lead Relationship Specialty Start Date End Date Jd Solis MD [address] [facility] [place] [address] PCP - General Family Practice 01/01/21 Ux Design Lead Relationship Specialty Start Date End Date Jd Solis MD [address] [facility] [place] [address] PCP - General Family Practice 01/01/21 Ux Design Lead Relationship Specialty Start Date End Date Jd Solis MD [address] [facility] [place] [address] PCP - General Family Medicine 01/01/21 Ux Design Lead Relationship Specialty Start Date End Date Jd Solis MD [address] [facility] [place] [address] PCP - General Family Medicine 01/01/21 Ux Design Lead Relationship Specialty Start Date End Date Jd Solis MD [address] [facility] [place] [address] PCP - General Family Medicine 01/01/21 Ux Design Lead Relationship Specialty Start Date End Date Jd Solis MD [address] [facility] [place] [address] PCP - General Family Medicine 01/01/21 Ux Design Lead Relationship Specialty Start Date End Date Jd Solis MD [address] [facility] [place] [address] PCP - General Family Medicine 01/01/21 Ux Design Lead Relationship Specialty Start Date End Date Jd Solis MD [address] [facility] [place] [address] PCP - General Family Medicine 01/01/21 Ux Design Lead Relationship Specialty Start Date End Date Jd Solis MD [address] [facility] [place] [address] PCP - General Family Medicine 01/01/21 Ux Design Lead Relationship Specialty Start Date End Date Jd Solis MD [address] [facility] [place] [address] PCP - General Family Medicine 01/01/21 Ux Design Lead Relationship Specialty Start Date End Date Jd Solis MD [address] [facility] [place] [address] PCP - General Family Medicine 01/01/21 Ux Design Lead Relationship Specialty Start Date End Date Jd Solis MD [address] [facility] [place] [address] PCP - General Family Medicine 01/01/21 Ux Design Lead Relationship Specialty Start Date End Date Jd Solis MD [address] [facility] [place] [address] PCP - General Family Medicine 01/01/21 Ux Design Lead Relationship Specialty Start Date End Date Jd Solis MD [address] [facility] [place] [address] PCP - General Family Medicine 01/01/21 Ux Design Lead Relationship Specialty Start Date End Date Jd Solis MD [address] [facility] [place] [address] PCP - General Family Medicine 01/01/21 Ux Design Lead Relationship Specialty Start Date End Date Jd Solis MD [address] [facility] [place] [address] PCP - General Family Medicine 01/01/21 Ux Design Lead Relationship Specialty Start Date End Date Jd Solis MD [address] [facility] [place] [address] PCP - General Family Medicine 01/01/21 Ux Design Lead Relationship Specialty Start Date End Date Jd Solis MD [address] [facility] [place] [address] PCP - General Family Medicine 01/01/21 Ux Design Lead Relationship Specialty Start Date End Date Jd Solis MD [address] [facility] [place] [address] PCP - General Family Medicine 01/01/21 Ux Design Lead Relationship Specialty Start Date End Date Jd Solis MD [address] [facility] [place] [address] PCP - General Family Medicine 01/01/21 Ux Design Lead Relationship Specialty Start Date End Date Jd Solis MD [address] [facility] [place] [address] PCP - General Family Medicine 01/01/21 Ux Design Lead Relationship Specialty Start Date End Date Jd Solis MD [address] [facility] [place] [address] PCP - General Family Medicine 01/01/21 Ux Design Lead Relationship Specialty Start Date End Date Jd Solis MD [address] [place] [address] PCP - General Family Medicine 01/01/21 Ux Design Lead Relationship Specialty Start Date End Date Jd Solis MD [address] [place], [place] [address] PCP - General Family Medicine 01/01/21 Ux Design Lead Relationship Specialty Start Date End Date Jd Solis MD [address] [place] [address] PCP - General Family Medicine 01/01/21 Team Status: Active Member Role Status Dates Dr. Daniel Naqvi III, MD Family Provider Active Dr. Jd Solis MD Primary Care Provider Active Team Status: Inactive Member Role Status Dates Dr. Jd Solis MD Primary Care Provider Active Dr. Tre García MD Attending Provider Active Ux Design Lead Relationship Specialty Start Date End Date Jd Solis MD [address] [place] [address] PCP - General Family Medicine 01/01/21 Team Status: Active Member Role Status Dates Dr. Jd Solis MD Primary Care Provider Active Dr. Geovanny Naqvi MD Attending Provider Active Team Status: Inactive Member Role Status Dates Dr. Jd Solis MD Primary Care Provider Active Dr. Tre García MD Attending Provider, Referring Pr ovider Active Ux Design Lead Relationship Specialty Start Date End Date Jd Solis MD [address] [place], [place] [address] PCP - General Family Medicine 01/01/21 Team Status: Active Member Role Status Dates Dr. Daniel Naqvi III, MD Family Provider Active Dr. Tre García MD Primary Care Provider Active Team Status: Inactive Member Role Status Dates Dr. Tre García MD Primary Care Provider, Referring Provider Active Dr. Chacho Mcghee MD Attending Provider Active Team Status: Inactive Member Role Status Dates Dr. Tre García MD Primary Care Provi michele, Attending Provider, Referring Provider Active Team Status: Inactive Member Role Status Dates Dr. Tre García MD Primary Care Provider Active Dr. Chacho Mcghee MD Attending Provider Active Chacho LEAVITT MD Referring Provider Active Ux Design Lead Relationship Specialty Start Date End Date Jd Solis MD [address] [place], [place] [address] PCP - General Family Medicine 01/01/21 Team Status: Inactive Member Role Status Dates Dr. Tre García MD Primary Care Provider, Attending Provider Active Team Status: Inactive Member Role Status Dates Dr. Tre García MD Primary Care Provider Active Dr. Joe Lisa DO Emergency Provider Active Team Status: Inactive Member Role Status Dates Dr. Tre García MD Primary Care Provider Active Dr. Joe Lisa DO Attending Provider, Emergency Pro vider Active Ux Design Lead Relationship Specialty Start Date End Date Tre García Chi [address] [place], [place] [address] PCP - General Gerontology 11/09/23 Ux Design Lead Relationship Specialty Start Date End Date Tre García Chi [address] [place], [place] [address] PCP - General Gerontology 11/09/23 Ux Design Lead Relationship Specialty Start Date End Date Tre García Chi [address] [place], [place] [address] PCP - General Gerontology 11/09/23 Ux Design Lead Relationship Specialty Start Date End Date Jd Solis MD [address] [facility] [place], [place] [address] PCP - General Family Medicine 01/01/21 11/08/23 Ux Design Lead Relationship Specialty Start Date End Date Tre García Ted [address] [address] PCP - General Gerontology 11/09/23 Ux Design Lead Relationship Specialty Start Date End Date Jd Solis MD [address] [facility] [place] [address] PCP - General Family Medicine 01/01/21 11/08/23 Ux Design Lead Relationship Specialty Start Date End Date Jd Solis MD [address] [facility] [place] [address] PCP - General Family Medicine 01/01/21 11/08/23 Ux Design Lead Relationship Specialty Start Date End Date Tre García Ted [address] [address] PCP - General Gerontology 11/09/23 Ux Design Lead Relationship Specialty Start Date End Date Tre García Chi [address] [address] PCP - General Gerontology 11/09/23 Team Status: Active Member Role Status Dates Dr. Tre García MD Primary Care Provider Active Team Status: Inactive Member Role Status Dates Dr. Tre García MD Primary Care Provider Active Start: May 01, 2024 End: May 01, 2024 Dr. Tre García MD Attending Provider Active Start: May 01, 2024 End: May 01, 2024 Team Status: Active Member Role Status Dates Dr. Tre García MD Primary Care Provider Active Start: May 10, 2024 Dr. Tre García MD Referring Provider Active Start: May 10, 2024 Kimberly Swenson PEDIATRIC DERMATOLOGIST, PEDIATRIC DERMATOLOGIST-C Attending Provider Active Start: May 10, 2024 Kimberly Swenson PEDIATRIC DERMATOLOGIST, PEDIATRIC DERMATOLOGIST-C Other Provider Active S tart: May 10, 2024 Team Status: Inactive Member Role Status Dates Dr. Tre García MD Primary Care Provider Active Start: May 17, 2024 End: May 22, 2024 Dr. Tre García MD Referring Provider Active Start: May 17, 2024 End: May 22, 2024 Kimberly Swenson PEDIATRIC DERMATOLOGIST, PEDIATRIC DERMATOLOGIST-C Attending Provider Active Start: May 17, 2024 End: May 22, 2024 Team Status: Active Member Role Status Dates Dr. Tre García MD Primary Care Provider Active Start: May 17, 2024 Dr. Tre García MD Referring Provider Active Start: May 17, 2024 Kimberly Swenson PEDIATRIC DERMATOLOGIST, PEDIATRIC DERMATOLOGIST-C Attending Provider Active Start: May 17, 2024 Kimberly Swenson PEDIATRIC DERMATOLOGIST, PEDIATRIC DERMATOLOGIST-C Other Provider Active S tart: May 17, 2024 Team Status: Inactive Member Role Status Dates Dr. Tre García MD Primary Care Provider Active Start: May 29, 2024 End: May 29, 2024 Dr. Tre García MD Attending Provider Active Start: May 29, 2024 End: May 29, 2024 Dr. Tre García MD Referring Provider Active Start: May 29, 2024 End: May 29, 2024 Team Status: Inactive Member Role Status Dates Dr. Tre García MD Primary Care Provider Active Start: June 30, 2024 End: June 30, 2024 Dr. Tre García MD Attending Provider Active Start: June 30, 2024 End: June 30, 2024 Dr. Tre García MD Referring Provider Active Start: June 30, 2024 End: June 30, 2024 Team Status: Inactive Member Role Status Dates Dr. Tre García MD Primary Care Provider Active Start: July 28, 2024 End: July 28, 2024 Dr. Tre García MD Attending Provider Active Start: July 28, 2024 End: July 28, 2024 Dr. Tre García MD Referring Provider Active Start: July 28, 2024 End: July 28, 2024 Team Status: Inactive Member Role Status Dates Dr. Tre García MD Primary Care Provider Active Start: August 14, 2024 End: August 14, 2024 Dr. Tre García MD Attending Provider Active Start: August 14, 2024 End: August 14, 2024 Team Status: Active Member Role Status Dates Dr. Tre García MD Primary Care Provider Active Start: August 21, 2024 Dr. Tre García MD Attending Provider Active Start: August 21, 2024 Dr. Tre García MD Referring Provider Active Start: August 21, 2024 Team Status: Inactive Member Role Status Dates Dr. Tre García MD Primary Care Provider Active Start: August 28, 2024 End: August 28, 2024 Dr. Tre García MD Attending Provider Active Start: August 28, 2024 End: August 28, 2024 Dr. Tre García MD Referring Provider Active Start: August 28, 2024 End: August 28, 2024 Team Status: Active Member Role Status Dates Dr. Tre García MD Primary Care Provider Active Start: September 18, 2024 Dr. Tre García MD Attending Provider Active Start: September 18, 2024 Dr. Tre García MD Referring Provider Active Start: September 18, 2024 Team Status: Inactive Member Role Status Dates Dr. Tre García MD Primary Care Provider Active Start: September 19, 2024 End: September 19, 2024 Dr. Tre García MD Attending Provider Active Start: September 19, 2024 End: September 19, 2024 Dr. Tre García MD Referring Provider Active Start: September 19, 2024 End: September 19, 2024 Team Status: Inactive Member Role Status Dates Dr. Tre García MD Primary Care Provider Active Start: September 18, 2024 End: September 27, 2024 Dr. Tre García MD Attending Provider Active Start: September 18, 2024 End: September 27, 2024 Dr. Tre García MD Referring Provider Active Start: September 18, 2024 End: September 27, 2024 Team Status: Inactive Member Role Status Dates Dr. Tre García MD Primary Care Provider Active Start: October 13, 2024 End: October 28, 2024 Dr. Tre García MD Attending Provider Active Start: October 13, 2024 End: October 28, 2024 Dr. Tre García MD Referring Provider Active Start: October 13, 2024 End: October 28, 2024 Goals (unrecognized section and content) Goals may be documented in a n alternate sectionGoals may be documented in an alternate sectionGoals may be documented in an alternate sectionGoals may be documented in an alternate sectionGoals may be documented in an alternate sectionGoals may be documented in an alternate sectionGoals may be documented in an alternate sectionGoals may be documented in an alternate sectionGoals may be documented in an alternate sectionGoals may be documented in an alternate section FOR RECORDS PERTAINING TO PATIENTS WHO ARE [...] BE BASED ON THE PRIMARY CLINICAL RECORDS. [employer] provides no warranty or guarantee of the accuracy or completeness of information in this document.
[2024-11-25 20:38] LABS: Prothrombin Time (Protime)PT. 13.7 SECONDS (11.7-14.9)
[2024-11-25 20:39] LABS: Partial Thromboplast Time 25.8 Seconds (24.1-36.2)
[2024-11-25 20:56] LABS: Anion Gap 13 (5-15); BUN 21 mg/dL (4-19); BUN/Creat Ratio 18.3 RATIO (10-20); Calcium,Total 9.4 mg/dL (7.6-11.0); Carbon Dioxide 21.3 mmol/L (21.0-32.0); Chloride 106 mmol/L (98-108); Creatinine, Serum 1.15 mg/dL (0.70-1.20); EST Glomerular Filtration Rate 64 (>60); Estimated Creatinine Clearance 56.26 ml/min (50-250); Glucose 99 mg/dL (70-99); Potassium 4.4 mmol/L (3.3-5.1); Sodium Level 140 mmol/L (133-145)
[2024-11-25 21:09] LABS: Troponin T High Sensitivity 39 ng/L (<=22)
--- NOTE | 2024-11-25 21:33 | PCM.HP.STD ---
HPI - General General Date of Admission: 11/25/24 Date of Service: 11/25/24 Chief Complaint: Transient blurry vision/vertigo/dizziness. HPI Narrative The patient is an 79 y/o M w/ PMHx: Obesity, Former tobacco use, CKD stage II per GFR trending, BPH with obstructive pathology, HTN, HLD, Anxiety and Depression, Chronic lumbar back pain, Asthma with allergic rhinitis, GERD who presents to the [facility] ED on 11/17/2024 with history of vision changes and onset of dizziness noted to be sitting down watching TV when all of a sudden his vision became blurry with onset of dizziness with sensation of room spinning noting that it is never occurred prior although he has had vertigo in the past but is very different from previously with no recent URI type illnesses lasting approximate 1.5 hours prompting eventual ED evaluation. Last known well per history was 18:30 pm on day of presentation of note. In the ED upon evaluation initially pretty physician NIH stroke scale 0. In the ED his symptoms were noted to continue improve as he was felt not a tenecteplase candidate. Upon ED arrival as noted the symptoms resolved however patient notes he still feels fatigued since. Patient did report a single episode remotely of a migraine but has not had any since. He denies any headache on day of presentation. Workup in the ED included T97.9, heart rate 85, BP 133/74, respiratory rate 13, 93% on room air with most recent repeat vitals heart rate 91, BP 115/92, respiratory rate 25, 95% room air, CBC with WBC 7.8, hemoglobin 14.2, platelet 124 without marked shift, unremarkable coags, BMP not marked appearing aside BUN/creatinine 21/1.15, GFR 64, troponin 39, CT brain with no acute intracranial findings, CTA Head and Neck with no large vessel occlusion, aneurysm or AVM, CXR with no acute cardiopulmonary findings, EKG sinus rhythm with no acute evidence of ischemia. Telestroke was contacted and evaluated patient with NIH stroke scale assessment per their service 0. In the ED patient ministered 1 L normal saline and full-strength aspirin therapy 325 mg p.o. x 1. [facility] Medical History Former tobacco use Obesity CKD (chronic kidney disease), stage II Allergic rhinitis Anxiety and depression Constipation Chronic low back pain BPH (benign prostatic hyperplasia) Hyperlipidemia Asthma COVID-19 Hypertension GERD (gastroesophageal reflux disease) Home Medications ?Medication ?Instructions ?Recorded ?Last Taken ?Type polyethylene glycol 3350 17 gram 17 g PO DAILY PRN Constipation 04/19/13 04/19/13 07:00 History oral powder packet lisinopril 5 mg tablet 5 mg PO DAILY 08/28/20 Unknown History tamsulosin 0.4 mg capsule 0.4 mg PO QHS 06/16/21 Unknown History montelukast 10 mg tablet 10 mg PO DAILY 05/06/23 Unknown History nortriptyline 50 mg capsule 50 mg PO BID 06/02/23 Unknown History omeprazole 10 mg capsule,delayed 40 mg PO DAILY 06/02/23 Unknown History release azithromycin 250 mg tablet 250 mg PO DAILY 11/25/24 Unknown History budesonide 160 mcg-glycopyr 9 2 inh inhalation BID 11/25/24 Unknown History mcg-formot 4.8 mcg/actuation HFA inhaler (Breztri Aerosphere) Allergy/AdvReac Type Severity Reaction Status Date / Time No Known Allergies Allergy Verified 11/25/24 20:06 Family History Mother Depression CVA (cerebral vascular accident) Anxiety Hypertension Father Pancreatic cancer Surgical History Hx of cataract extraction Social History (Updated 11/25/24 @ 21:[address] Megan Garcia MD) household members: spouse Smoking Status: Former smoker how long ago did patient quit smoking: Quit 1974, smoked cigars only. alcohol intake: never substance use type: does not use ROS ROS Narrative Admission Review of Systems: CONSTITUTIONAL: No weight loss, fever, chills, + weakness or fatigue. HEENT: + Dizziness with vertiginous symptoms. Eyes: No visual loss, double vision or yellow sclerae. + Transient blurry vision. Ears, Nose, Throat: No hearing loss, sneezing, congestion, runny nose or sore throat. SKIN: No rash or itching, lesions, wounds. CARDIOVASCULAR: No chest pain, chest pressure or chest discomfort, palpitations, edema, orthopnea, syncopal events. RESPIRATORY: No shortness of breath, cough or sputum, wheezing, hemoptysis. GASTROINTESTINAL: + anorexia, nausea. No vomiting or diarrhea, abdominal pain, melena, BRBPR. GENITOURINARY: No dysuria, frequency, urgency or retention. NEUROLOGICAL: + Dizziness with vertiginous symptoms, transient bilateral blurry vision, transient brain fog sensation. No headache, syncope, paralysis, ataxia, numbness or tingling in the extremities, focal weakness, change in bowel or bladder control, seizure. MUSCULOSKELETAL: + muscle, back pain, joint pain or stiffness. HEMATOLOGIC: No anemia. + Easy bleeding/bruising. LYMPHATICS: No enlarged nodes. No history of splenectomy. PSYCHIATRIC: + History of anxiety depression. ENDOCRINOLOGIC: No reports of sweating, cold or heat intolerance. No polyuria or polydipsia. ALLERGIES: + History of asthma, allergic rhinitis. Vital Signs Vital Signs Vital Signs: 11/25/24 20:06 11/25/24 20:13 11/25/24 20:18 Temperature 97.9 F Temperature Source Oral Pulse Rate 85 86 Respiratory Rate 13 16 Blood Pressure 133/74 H 133/74 H Blood Pressure Mean 93 93 Pulse Ox 93 93 Oxygen Delivery Method Room Air Room Air Room Air 11/25/24 20:28 11/25/24 20:43 11/25/24 21:13 Temperature Temperature Source Pulse Rate 91 90 88 Respiratory Rate 25 H 15 13 Blood Pressure 115/92 H 133/80 H 141/74 H Blood Pressure Mean 99 97 96 Pulse Ox 95 92 97 Oxygen Delivery Method Room Air Room Air Room Air Weight Weight: 201 lb 11.567 oz Body Mass Index (BMI) 30.7 Physical Exam Narrative Physical Examination: General: Awake, alert, oriented x 3 and cooperative, seated upright in the ED bed in no apparent distress, notes continued complete resolution of previous neurological symptoms. Skin: Normal color, normal turgor, no icterus, no cyanosis except for very stage ecchymoses, abrasions especially to the extremities, more distal and upper. HEENT: AT/NC, EOMI, PERRLA, MMM, no carotid bruits or JVD noted. Lungs: CTA bilaterally, moderate effort, mild decrease BL bases, no rales, ronchi or wheezing. Heart: Regular rate and rhythm; no gallop, rub audible. Abdomen: Soft, NTTP, ND, normal BS, no appreciated HSM. Extremities: No cyanosis, clubbing, or edema. Neurological: Patient awake, alert, oriented as noted, cognitive function intact; pupils equally reactive to light and accommodation, cranial nerves grossly normal, moving all 4 extremities, no focal deficits, strength preserved, finger-nose and [id number] appropriate, sensation intact, negative Babinski, feels of vision intact, no elicited vertiginous symptoms. Psychiatric: Affect appears normal, no acute evidence of depressive or anxiety feelings. Results Lab / Micro Data 11/25/24 19:55 11/25/24 19:55 Labs: Laboratory Results - last 24 hr 11/25/24 19:55: WBC 7.8, RBC 4.49 L, Hgb 14.2, Hct 40.9, MCV 91.1, MCH 31.6, MCHC 34.7, RDW Std Deviation 45.5 H, RDW Coeff of Chucho 13.5, Plt Count 124 L, MPV 9.5, Immature Gran % (Auto) 0.400, Neut % (Auto) 41.5 L, Lymph % (Auto) 52.1 H, Otero % (Auto) 5.2, Eos % (Auto) 0.4, Baso % (Auto) 0.4, Absolute Neuts (auto) 3.2, Absolute Lymphs (auto) 4.07, Nucleated RBC % 0, PT 13.7, INR 1.0, APTT 25.8, Sodium 140, Potassium 4.4, Chloride 106, Carbon Dioxide 21.3, Anion Gap 13, BUN 21 H, Creatinine 1.15, Estim Creat Clear Calc 56.26, Est GFR (MDRD) Non-Af 64, BUN/Creatinine Ratio 18.3, Glucose 99, Calcium 9.4, Troponin T High Sens 39 H 11/25/24 20:11: POC Glucose 120 H Imaging Radiology Impression Brain CT 11/25/24 20:13 IMPRESSION: No acute intracranial finding. Dr. Fam discussed these findings via telephone with Dr. Clifford at 8:31 pm on 11/25/24. Reading Location: [facility] Chest X-Ray 11/25/24 20:13 IMPRESSION: No significant change since last exam. Reading Location: [facility] Head/Neck CTA 11/25/24 20:14 IMPRESSION: No large vessel occlusion, aneurysm or AVM. Reading Location: [facility] Assessment & Plan Assessment/Plan (1) TIA (transient ischemic attack): PLAN: Plan The patient is an 79 y/o M w/ PMHx: Obesity, Former tobacco use, CKD stage II per GFR trending, BPH with obstructive pathology, HTN, HLD, Anxiety and Depression, Chronic lumbar back pain, Asthma with allergic rhinitis, GERD who presents to the [facility] ED on 11/17/2024 with history of vision changes and onset of dizziness noted to be sitting down watching TV when all of a sudden his vision became blurry with onset of dizziness with sensation of room spinning noting that it is never occurred prior although he has had vertigo in the past but is very different from previously with no recent URI type illnesses lasting approximate 1.5 hours prompting eventual ED evaluation. #1. Vision changes/bilateral blurry vision with vertiginous symptoms, resolved concerning for possible posterior CVA/TIA, remote history of migraine x 1 only thus lower suspicion for complex migraine as etiology with mildly elevated cardiac troponin of unclear significance/indeterminate: Will admit to PCU, will obtain MRI Brain, ECHO, PT/OT/Speech/Nutrition evaluation per protocol. Will allow permissive HTN, maintain on asa, add moderate dose statin w/ AM FLP, fall precautions. Mag, TSH, HgbA1c requested. Maintain on fall and aspiration precautions. Will continue neurology consultation initiated in ED. Will have as needed meclizine for vertiginous symptoms. Will continue to cycle cardiac enzymes to be cautious but lower suspicion for cardiac event. #2. Thrombocytopenia, appears new chronicity although has occasionally been noted on previous remote labs: Admission CBC with platelets 124, cautiously adding aspirin, more recent labs have been normal range, will trend CBC. #3. Hypertension: Will maintain permissive hypertension given presentation as noted with urine agents per stroke protocol, add back regimen once clinically appropriate. #4. Hyperlipidemia: Not on statin therapy, given presentation as noted #1 adding moderate dose regimen, FLP in AM as noted #1. #5. Chronic Kidney Disease Stage II per GFR trending: Admission BUN/Cr /.15, GFR 64, baseline renal function primarily 0.9-1.1, repeat BMP in AM. #6. Chronic asthma with allergic rhinitis: Will temporally hold home inhaler in the interim maintain on ATC budesonide therapy,. Albuterol, continue patient home montelukast regimen. #7. Former tobacco use: Encourage continued tobacco cessation. #8. Obesity: Weight loss and lifestyle changes encouraged. #9. Anxiety and depression: Will continue patient home nortriptyline regimen, encourage continued outpatient follow-up and evaluation as previously arranged. #10. Chronic lumbar back pain: Maintain on fall precautions, encourage offloading, therapies consulted as noted above. #11. BPH with obstructive pathology: Will continue patient home Flomax regimen, monitor for retention. #12. GERD: Will continue patient on PPI. #13. DVT prophylaxis: Lovenox cautiously given #2 and addition of ASA given #1 as noted. #14. CODE status: Patient MARCO ANTONIO is his who is present and living will is currently in place. Discussed CODE status at length including difference between FULL code, DNR-CCA and DNR-CC status. Following discussions about the differences in these status, requested Full Code status. Charges/Coding Visit Charges Inpatient E&M: 13548 Init Hosp L3
[2024-11-25] MEDS: Aspirin 325 MG Tablet PO (21:46)
--- OUTSIDE RECORDS SUMMARY | 2024-11-25 22:01 | XMS RPT_ITS | CCD ---
Author Organization [facility] CliniSynv Care Team Providers Care Health Inspector Food Name Role Phone Jd Solis MD Primary [...] Provider Dr. Chacho Mcghee Attending Provider Ricky, Tre [...] MD, Chi Referring Provider [phone] Messi MATERIAL ASSEMBLER-C, Kimberly Attending Provider Messi MATERIAL ASSEMBLER-C, Kimberly Other Provider [phone] Ricky ALFONSO, Dr. Tre Jean Primary Care Provider Ricky ALFONSO, Dr. Tre Jean Attending Provider Ricky ALFONSO, Dr. Tre Jean Referring Provider Ricky ALFONSO, Dr. Tre Jean Primary Care Provider Ricky ALFONSO, Dr. Tre Jean Attending Provider [phone] Ricky ALFONSO, Dr. Tre Jean Referring Provider Ricky, Tre Chi Primary Care Unavailable Rene Mcgheeril Attending Unavailable Kamar MATERIAL ASSEMBLER, Heather Referring Unavailable Ricky, Tre Chi Referring Unavailable Siska Geovanny Consulting Unavailable Ricky, Tre Chi Primary Care Unavailable Harper MATERIAL ASSEMBLER, Rosario Iyer Attending Unavailabl e Ricky, Tre Chi Primary Care Unavailable Ricky, Tre Chi Referring Unavailable Ricky, Tre Chi Attending Unavailable Ricky, Tre Chi Primary Care Unavailable Kamar MATERIAL ASSEMBLER, Heather Referring Unavailable Kamar BATES, Heather Attending [...] Ricky, Tre Chi Primary Care Unavailable Harper MATERIAL ASSEMBLER, Rosario Iyer Attending Unavailabl e Ricky, Tre [...] Ricky, Tre Chi Primary Care Unavailable Harper MATERIAL ASSEMBLER, Rosario E Referring Unavailabl e Harper MATERIAL ASSEMBLER, Rosario E Attending Unavailabl e Harper MATERIAL ASSEMBLER, Rosario E Consulting Unavailabl e Jg Bustamante Attending Unavailable Ricky, Tre Chi Primary Care Unavailable Harper MATERIAL ASSEMBLER, Rosario E Referring Unavailabl e Harper MATERIAL ASSEMBLER, Rosario E Attending Unavailabl e Harper MATERIAL ASSEMBLER, Rosario E Consulting Unavailabl e Allergies Allergy Classification Reported Allergen(s) Allergy Type Date of Onset Reaction(s) Facility (20 sources) environmental [Other] Propensity to adverse reactions 5 Intolerance [facility] (1 source) OTHER; Translations: [OTHER] Propensity to adverse reactions (disorder) [address] [facility] Repository Medications Current Medications Medication Drug [...] Comment on above: Take 1 tablet by [facility] twice daily for 5 days. benzonatate 100 [...] 24 hours. Take 1 capsule by mo [facility] three times daily as needed for cough [...] for 10 days. Take 1 tablet by [facility] twice daily for 5 days. lisinopril 5 [...] Comment on above: Take 1 tablet by [facility] daily at bedtime. nortriptyline 50 mg oral [...] on above: Take 1 capsule by mo [facility] twice daily. Take 1 capsule by mo [facility] daily at bedtime. omeprazole 10 mg delayed [...] Start: 05-03-2023 take 1 capsule by mo [facility] once daily omeprazole (PRILOSEC) 40 mg capsule Indications: Gastroesophageal reflux disease, unspecified whether esophagitis present Take 1 capsule by mouth once daily 90 capsule 05/03/2023 Active Start: 01-21-2023 take 1 capsule by mo [facility] once daily omeprazole (PRILOSEC) 40 mg capsule [...] 10 mL injection (DEFINITY) polyethylene glycol 3350 [id number] mg powder for oral solution (20 sources) [...] Comment on above: Take 1 Packet by [facility] twice daily. predniSONE 10 mg [...] on above: Take 2 tablets by mo [facility] once daily for 5 days. Take [facility] daily for 5 days. Take 4 [...] Comment on above: Take 1 capsule by [facility] daily at bedtime. TAKE 1 CAPSULE DAILY [...] Auto (Unsp spec) [#/Vol] 2.79 10*3/uL 0.83-4.51 [facility] Absolute neutrophil countOrd ered By: Tre García on 09-19-2024 Neutrophils (Bld) [#/Vol] 4.3 10*3/uL 2.0-7.7 [facility] Anion gap in Serum or Plasma Ordered By: Tre García on 09-19-2024 Anion gap [Moles/Vol] 10 mmol/L 5-15 [facility] Automated lymphocyte count a s percentage of total leukocytesOrdered By: Tre García on 09-19-2024 Lymphocytes/100 WBC Auto (Unsp spec) 37.3 % 19- [facility] BUN/creatinine ratioOrdered By: [facility] 09-19-2024 Urea nitrogen/Creatinine [Mass ratio] 19.2 mg/mg 10- [facility] Basophil percentageOrdered B y: Tre García on 09-19-2024 Basophils/100 WBC (Bld) 0.3 % 0-1 [facility] Bilirubin, totalOrdered By: Tre García on 09-19-2024 Bilirubin [Mass/Vol] 0.60 mg/dL 0.00-1.30 [facility] CBC W/Diff, Automatedon 08-30 Absolute Lymph 2.79 X10 3/uL Normal 0.83-4.51 [facility] Comment on above: Performed By: #### L 100.0100, L500.4050, L501.9520, L506.1001, L501.9910 #### [facility] [address] [place], [address] Absolute Neut 4.3 X10 3/uL Normal 2.0-7.7 [facility] Comment on above: Performed By: #### L 100.0100, L500.4050, L501.9520, L506.1001, L501.9910 #### [facility] [address] [place], [address] Basophils/100 WBC (Bld) 0.3 % Normal 0-1 [facility] Comment on above: Performed By: #### L 100.0100, L500.4050, L501.9520, L506.1001, L501.9910 #### [facility] [address] [place], [address] Eosinophils/100 WBC (Bld) 0.4 % Normal 0-5 [facility] Comment on above: Performed By: #### L 100.0100, L500.4050, L501.9520, L506.1001, L501.9910 #### [facility] [address] [place], [address] Erythrocyte distribution width (RBC) [Ratio] 13.6 % Normal 11.6-14.6 [facility] Comment on above: Performed By: #### L 100.0100, L500.4050, L501.9520, L506.1001, L501.9910 #### [facility] [address] [place], [address] Hematocrit (Bld) [Volume fraction] 44.4 % Normal 40-54 [facility] Comment on above: Performed By: #### L 100.0100, L500.4050, L501.9520, L506.1001, L501.9910 #### [facility] [address] [place], [address] Hemoglobin (Bld) [Mass/Vol] 14.9 g/dL Normal 13.0-16.5 [facility] Comment on above: Performed By: #### L 100.0100, L500.4050, L501.9520, L506.1001, L501.9910 #### [facility] [address] [place], [address] IG% 0.300 Normal 0.0-0.9 [facility] Comment on above: Result Comment: IG% - Immature Granulocytes (promyelocytes, myelocytes and metamyelocytes) > 1% indicates that a LEFT SHIFT is Present. Performed By: #### L 100.0100, L500.4050, L501.9520, L506.1001, L501.9910 #### [facility] [address] [place], [address] Lymphocytes/100 WBC (Bld) 37.3 % Normal 19-41 [facility] Comment on above: Performed By: #### L 100.0100, L500.4050, L501.9520, L506.1001, L501.9910 #### [facility] [address] [place], [address] MCH (RBC) [Entitic mass] 31.0 pg Normal 27.0-32.0 [facility] Comment on above: Performed By: #### L 100.0100, L500.4050, L501.9520, L506.1001, L501.9910 #### [facility] [address] [place], [address] MCHC (RBC) [Mass/Vol] 33.6 g/dL Normal 32-36 [facility] Comment on above: Performed By: #### L 100.0100, L500.4050, L501.9520, L506.1001, L501.9910 #### [facility] [address] [place], [address] MCV (RBC) [Entitic vol] 92.3 fL Normal 80-94 [facility] Comment on above: Performed By: #### L 100.0100, L500.4050, L501.9520, L506.1001, L501.9910 #### [facility] [address] [place], [address] Monocytes/100 WBC (Bld) 4.1 % Normal 0-10 [facility] Comment on above: Performed By: #### L 100.0100, L500.4050, L501.9520, L506.1001, L501.9910 #### [facility] [address] [place], [address] Neutrophils/100 WBC (Bld) 57.6 % Normal 47-70 [facility] Comment on above: Performed By: #### L 100.0100, L500.4050, L501.9520, L506.1001, L501.9910 #### [facility] [address] [place], [address] Nucleated RBC (Bld) [#/Vol] 0 10*3/uL Normal 0-5 [facility] Comment on above: Performed By: #### L 100.0100, L500.4050, L501.9520, L506.1001, L501.9910 #### [facility] [address] [place], [address] Platelet mean volume (Bld) [Entitic vol] 9.4 fL Normal 6.2-12.0 [facility] Comment on above: Performed By: #### L 100.0100, L500.4050, L501.9520, L506.1001, L501.9910 #### [facility] [address] [place], [address] Platelets (Bld) [#/Vol] 165 10*3/uL Normal 150-450 [facility] Comment on above: Performed By: #### L 100.0100, L500.4050, L501.9520, L506.1001, L501.9910 #### [facility] [address] [place], [address] RBC (Bld) [#/Vol] 4.81 10*6/uL Normal 4.6-6.2 [facility] Comment on above: Performed By: #### L 100.0100, L500.4050, L501.9520, L506.1001, L501.9910 #### [facility] [address] [place], [address] RDW SD 46.5 fl High 35.1-43.9 [facility] Comment on above: Performed By: #### L 100.0100, L500.4050, L501.9520, L506.1001, L501.9910 #### [facility] [address] [place], [address] WBC (Bld) [#/Vol] 7.5 10*3/uL Normal 4.4-11.0 [facility] Comment on above: Performed By: #### L 100.0100, L500.4050, L501.9520, L506.1001, L501.9910 #### [facility] [address] [place], [address] Carbon dioxide, total [Moles /volume] in Central venous bloodOrdered By: Tre García on 09-19-2024 CO2 [Moles/Vol] 22.7 mmol/L 21.0-32.0 [facility] Chloride assayOrdered By: Nito García on 09-19-2024 Chloride [Moles/Vol] 106 mmol/L 98-108 [facility] Comprehensive Metabolic Prof ilon 09-19-2024 Albumin [Mass/Vol] 4.2 g/dL Normal 3.4-4.8 [facility] Comment on above: Performed By: #### L 100.0100, L500.4050, L501.9520, L506.1001, L501.9910 #### [facility] [address] [place], [address] Albumin/Globulin [Mass ratio] 1.8 {ratio} Normal 0.9-2.4 [facility] Comment on above: Performed By: #### L 100.0100, L500.4050, L501.9520, L506.1001, L501.9910 #### [facility] [address] [place], [address] ALK PHOS 92 U/L Normal 40-129 [facility] Comment on above: Performed By: #### L 100.0100, L500.4050, L501.9520, L506.1001, L501.9910 #### [facility] [address] [place], [address] ALT [Catalytic activity/Vol] 26 U/L Normal <=46 [facility] Comment on above: Performed By: #### L 100.0100, L500.4050, L501.9520, L506.1001, L501.9910 #### [facility] [address] [place], [address] AST [Catalytic activity/Vol] 28 U/L Normal <=37 [facility] Comment on above: Performed By: #### L 100.0100, L500.4050, L501.9520, L506.1001, L501.9910 #### [facility] [address] [place], [address] Bilirubin [Mass/Vol] 0.60 mg/dL Normal 0.00-1.30 [facility] Comment on above: Performed By: #### L 100.0100, L500.4050, L501.9520, L506.1001, L501.9910 #### [facility] [address] [place], [address] BUN/CRE 19.2 RATIO Normal 10-20 [facility] Comment on above: Performed By: #### L 100.0100, L500.4050, L501.9520, L506.1001, L501.9910 #### [facility] [address] [place], [address] Calcium [Mass/Vol] 9.2 mg/dL Normal 7.6-11.0 [facility] Comment on above: Performed By: #### L 100.0100, L500.4050, L501.9520, L506.1001, L501.9910 #### [facility] [address] [place], [address] Chloride [Moles/Vol] 106 mmol/L Normal 98-108 [facility] Comment on above: Performed By: #### L 100.0100, L500.4050, L501.9520, L506.1001, L501.9910 #### [facility] [address] [place], [address] CO2 [Moles/Vol] 22.7 mmol/L Normal 21.0-32.0 [facility] Comment on above: Performed By: #### L 100.0100, L500.4050, L501.9520, L506.1001, L501.9910 #### [facility] [address] [place], [address] Creatinine [Mass/Vol] 1.00 mg/dL Normal 0.70-1.20 [facility] Comment on above: Performed By: #### L 100.0100, L500.4050, L501.9520, L506.1001, L501.9910 #### [facility] [address] [place], [address] GAP 10 Normal 5-15 [facility] Comment on above: Performed By: #### L 100.0100, L500.4050, L501.9520, L506.1001, L501.9910 #### [facility] [address] [place], [address] GFR/1.73 sq M.predicted among non-blacks MDRD (S/P/Bld) [Vol rate/Area] 76 mL/min/{1.73_m2} Normal >60 [facility] Comment on above: Result Comment: mL/m in/1.73m2 CKD-EPI Creatinine Equation (2020) Performed By: #### L 100.0100, L500.4050, L501.9520, L506.1001, L501.9910 #### [facility] [address] [place], [address] Globulin (S) [Mass/Vol] 2.3 g/dL Normal 2.2-4.2 [facility] Comment on above: Performed By: #### L 100.0100, L500.4050, L501.9520, L506.1001, L501.9910 #### [facility] [address] [place], [address] Glucose [Mass/Vol] 87 mg/dL Normal 70-99 [facility] Comment on above: Performed By: #### L 100.0100, L500.4050, L501.9520, L506.1001, L501.9910 #### [facility] [address] [place], [address] Potassium [Moles/Vol] 4.7 mmol/L Normal 3.3-5.1 [facility] Comment on above: Performed By: #### L 100.0100, L500.4050, L501.9520, L506.1001, L501.9910 #### [facility] [address] [place], [address] Sodium [Moles/Vol] 139 mmol/L Normal 133-145 [facility] Comment on above: Performed By: #### L 100.0100, L500.4050, L501.9520, L506.1001, L501.9910 #### [facility] [address] [place], [address] T PROT 6.5 g/dL Normal 5.9-8.4 [facility] Comment on above: Performed By: #### L 100.0100, L500.4050, L501.9520, L506.1001, L501.9910 #### [facility] [address] [place], [address] Urea nitrogen [Mass/Vol] 19 mg/dL Normal 4-19 [facility] Comment on above: Performed By: #### L 100.0100, L500.4050, L501.9520, L506.1001, L501.9910 #### [facility] [address] [place], [address] Eosinophil percentageOrdered By: Tre García 09-19-2024 Eosinophils/100 WBC (Bld) 0.4 % 0-5 [facility] Erythrocyte distribution wid th (RBC) [Ratio]Ordered By: Tre Avilez09-19-2024 Erythrocyte distribution width (RBC) [Entitic vol] 46.5 fL High 35.1-43.9 [facility] Erythrocyte distribution wid th ratioOrdered By: Tre García 09-19-2024 Erythrocyte distribution width (RBC) [Ratio] 13.6 % 11.6-14.6 [facility] Erythrocyte distribution wid th standard deviationOrdered By: Tre García 09-19-2024 Erythrocyte distribution width (RBC) [Ratio] 46.5 fl High 35.1-43.9 [facility] GFR/1.73 sq M.predicted toñito g non-blacks MDRD (S/P/Bld) [Vol rate/Area]Ordered By: Tre García 09-19-2024 Estimated GFR (MDRD) Non-Af Amer 76 >60 [facility] Comment on above: mL/min/1.73m2 CKD-EP I Creatinine Equation (2020) Glomerular filtration rate ( GFR) estimation/1.73 sq m using serum, plasma, or whole bOrdered By: Tre García 09-19-2024 GFR/1.73 sq M.predicted among non-blacks MDRD (S/P/Bld) [Vol rate/Area] 76 mL/min/{1.73_m2} >60 [facility] Comment on above: mL/min/1.73m2 CKD-EP I Creatinine Equation (2020) Hematocrit Auto (Bld) [Volum e fraction]Ordered By: Tre García 09-19-2024 Hematocrit (Bld) [Volume fraction] 44.4 % 40-54 [facility] Hemoglobin measurementOrdere d By: Tre García 09-19-2024 Hemoglobin (Bld) [Mass/Vol] 14.9 g/dL 13.0-16.5 [facility] Immature granulocytes/100 WB C Auto (Bld)Ordered By: Tre García on 09-19-2024 Immature granulocytes/100 WBC (Bld) 0.300 % 0.0-0.9 [facility] Comment on above: IG% - Immature Granu locytes (promyelocytes, myelocytes and metamyelocytes) > 1% indicates that a LEFT SHIFT is Present. Laboratory - Chemistry and C hemistry - challengeOrdered By: Tre García on 09-19-2024 AST [Catalytic activity/Vol] 28 U/L <38 [facility] Lymphocytes Auto (Unsp spec) [#/Vol]Ordered By: Tre García on 09-19-2024 Lymphocytes (Bld) [#/Vol] 2.79 10*3/uL 0.83-4.51 [facility] Lymphocytes/100 WBC Auto (Un sp spec)Ordered By: Tre García 09-19-2024 Lymphocytes/100 WBC (Bld) 37.3 % 19-41 [facility] MCV (mean corpuscular volume ) determinationOrdered By: Tre García 09-19-2024 MCV (RBC) [Entitic vol] 92.3 fL 80-94 [facility] Mean corpuscular hemoglobin (MCH) determinationOrdered By: Tre García 09-19-2024 MCH (RBC) [Entitic mass] 31.0 pg 27.0-32.0 [facility] Mean corpuscular hemoglobin concentration (MCHC) determinationOrdered By: Tre García 09-19-2024 MCHC (RBC) [Mass/Vol] 33.6 g/dL 32-36 [facility] Mean platelet volume determi nationOrdered By: Tre García 09-19-2024 Platelet mean volume (Bld) [Entitic vol] 9.4 fL 6.2-12.0 [facility] Monocyte percentageOrdered B y: Tre García on 09-19-2024 Monocytes/100 WBC (Bld) 4.1 % 0-10 [facility] Neutrophil percentageOrdered By: Tre García 09-19-2024 Neutrophils/100 WBC (Bld) 57.6 % 47-70 [facility] Nucleated red blood cell per centageOrdered By: Tre García on 09-19-2024 Nucleated RBC/100 WBC (Bld) [Ratio] 0 % 0-5 [facility] PSA, total screeningOrdered By: Tre García on 09-19-2024 Prostate Specific Antigen Screen 0.15 ng/mL 0.02-4.00 [facility] Comment on above: This test was perfor med using the [employer] tPSA method. Measured values of a patient sample can vary depending on the testing procedure used. PSA values determined on patient samples by different testing procedures cannot be used interchangeably. If there is a change in PSA assays while monitoring therapy, sequential testing should be performed to confirm baseline values. PSA,Total - Annual Screenon 09-19-2024 PSA,TOT SCREEN 0.15 ng/mL Normal 0.02-4.00 [facility] Comment on above: Result Comment: This test was performed using the [employer] tPSA method. Measured values of a patient??sample can vary depending on the testing procedure used. PSA values determined on patient samples by different testing procedures cannot be used interchangeably. If there is a change in PSA assays while monitoring therapy, sequential testing should be performed to confirm baseline values. Performed By: #### L 100.0100, L500.4050, L501.9520, L506.1001, L501.9910 #### [facility] [address] [place], [address] Platelet countOrdered By: Nito García on 09-19-2024 Platelets (Bld) [#/Vol] 165 10*3/uL 150-450 [facility] Potassium (Unsp spec) [Mass/ Vol]Ordered By: Tre García on 09-19-2024 Potassium [Moles/Vol] 4.7 mmol/L 3.3-5.1 [facility] Potassium measurement (mass/ volume)Ordered By: Tre García on 09-19-2024 Potassium (Unsp spec) [Mass/Vol] 4.7 mmol/L 3.3-5.1 [facility] RBC Auto (Bld) [#/Vol]Ordere d By: Tre García on 09-19-2024 RBC (Bld) [#/Vol] 4.81 10*6/uL 4.6-6.2 [facility] Serum creatinine measurement (mass/volume)Ordered By: Tre García 09-19-2024 Creatinine [Mass/Vol] 1.00 mg/dL 0.70-1.20 [facility] Serum globulin measurementOr dered By: Tre García 09-19-2024 Globulin (S) [Mass/Vol] 2.3 g/dL 2.2-4.2 [facility] Serum glucose measurement (m ass/volume)Ordered By: Tre García 09-19-2024 Glucose [Mass/Vol] 87 mg/dL 70-99 [facility] Serum or plasma alanine murphy otransferase (ALT) measurementOrdered By: Tre García 09-19-2024 ALT [Catalytic activity/Vol] 26 U/L <47 [facility] Serum or plasma albumin patti urement (mass/volume)Ordered By: Tre García 09-19-2024 Albumin [Mass/Vol] 4.2 g/dL 3.4-4.8 [facility] Serum or plasma albumin/glob ulin mass ratioOrdered By: Tre García 09-19-2024 Albumin/Globulin [Mass ratio] 1.8 {ratio} 0.9-2.4 [facility] Serum or plasma alkaline shy sphatase measurementOrdered By: Tre García 09-19-2024 ALP [Catalytic activity/Vol] 92 U/L 40-129 [facility] Serum or plasma calcium patti urement (mass/volume)Ordered By: Tre García 09-19-2024 Calcium [Mass/Vol] 9.2 mg/dL 7.6-11.0 [facility] Serum or plasma urea nitroge n measurement (mass/volume)Ordered By: Tre García 09-19-2024 Urea nitrogen [Mass/Vol] 19 mg/dL 4-19 [facility] Sodium levelOrdered By: Tre García 09-19-2024 Sodium [Moles/Vol] 139 mmol/L 133-145 [facility] TSH DL <= 0.005 mIU/L QnOrde red By: Tre Gracía 09-19-2024 Thyroid Stimulating Hormone (TSH) 1.270 uIU/mL 0.300-4.200 [facility] TSH Qn 1.270 uIU/mL 0.300-4.200 [facility] Thyroid Stim Hormone (TSH)on 09-19-2024 TSH 1.270 uIU/mL Normal 0.300-4.200 [facility] Comment on above: Performed By: #### L 100.0100, L500.4050, L501.9520, L506.1001, L501.9910 #### [facility] [address] [place], [address] Total proteinOrdered By: Tre García on 09-19-2024 Protein [Mass/Vol] 6.5 g/dL 5.9-8.4 [facility] Vitamin D, 25-hydroxyOrdered By: Tre García on 09-19-2024 Vitamin D 25-Hydroxy 11.0 ng/mL Low 30-100 [facility] Comment on above: Vitamin D StatusDefi ciency: <20 ng/mL (50nmol/L)Insufficiency: 20-30 ng/mL (50-75 nmol/L)Sufficiency: 30-100 ng/mL (75-250 nmol/L)Toxicity: >100 ng/mL (>250 nmol/L) Vitamin D,25 Hydroxyon 09-19 Vitamin D 25-OH 11.0 ng/mL Low 30-100 [facility] Comment on above: Result Comment: [place] min D Status Deficiency: <20 ng/mL (50nmol/L) Insufficiency: 20-30 ng/mL (50-75 nmol/L) Sufficiency: 30-100 ng/mL (75-250 nmol/L) Toxicity: >100 ng/mL (>250 nmol/L) Performed By: #### L 500.4050, L100.0100, L506.1000, L501.9520 #### [facility] [address] [place], [address] White blood cell (WBC) count Ordered By: Tre García on 09-19-2024 WBC (Bld) [#/Vol] 7.5 10*3/uL 4.4-11.0 [facility] MS - Individual Treatment Pl anon 09-15-2024 MS - Individual Treatment Plan [facility] Pulmonary Rehab Reports [address] [place] [address] MS - Individual Treatment Plan MR#: [id number] Acct: [id number] Name: VALENTINA CABRERA Rep #: [id number] : 1945 79 From: Max Douglass BS, [...] Identifies activ (more content not included)... Normal [facility] MS - Individual Treatment Pl anon 08-17-2024 MS - Individual Treatment Plan [facility] Pulmonary Rehab Reports [address] [place] [address] MS - Individual Treatment Plan MR#: [id number] Acct: [id number] Name: VALENTINA CABRERA Rep #: [id number] : 1945 79 From: Max Douglass BS, [...] and relaxation (more content not included)... Normal [facility] Influenza virus A and B and SARS-CoV-2 (COVID-19) and Respiratory syncytial virus RNAOrdered By: Tre García on 08-14-2024 SARS-CoV-2 (COVID-19) RNA GRACE+probe Ql (Unsp spec) [facility] M100.678on 08-14-2024 M100.678 Pending SARS-CoV-2 (COVID 19) Negative INFLUENZA A Negative INFLUENZA B Negative RSV PCR Negative Normal [facility] Comment on above: Performed By: #### L 500.4050, L100.0100, L506.1000, L501.9520 #### [facility] [address] [facility], [address] MS - Individual Treatment Pl anon 07-27-2024 MS - Individual Treatment Plan [facility] Pulmonary Rehab Reports [address] [place] [address] MS - Individual Treatment Plan MR#: [id number] Acct: [id number] Name: VALENTINA CABRERA Rep #: [id number] : 1945 79 From: Max Douglass BS, [...] to Beh (more content not included)... Normal [facility] MS - Individual Treatment Pl anon 06-29-2024 MS - Individual Treatment Plan [facility] Pulmonary Rehab Reports [address] [place] [address] MS - Individual Treatment Plan MR#: [id number] Acct: [id number] Name: VALENTINA CABRERA Rep #: [id number] : 1945 79 From: Max Douglass BS, [...] Improved p (more content not included)... Normal [facility] MS - History AND Physicalon 05-29-2024 MS - History & Physical [facility] Pulmonary Rehab Reports [address] [place] [address] MS - History Physical MR#: [id number] Acct: [id number] Name: VALENTINA CABRERA Rep #: [id number] : 1945 79 From: Max Douglass BS, [...] No Advanced Directives Advanced Directives Power of Instructional Specialist: Yes Living Will: Yes Advance Directives Information [...] Safety Do (more content not included)... Normal [facility] MS - Individual Treatment Pl anon 05-29-2024 MS - Individual Treatment Plan [facility] Pulmonary Rehab Reports [address] [place] [address] MS - Individual Treatment Plan MR#: [id number] Acct: [id number] Name: VALENTINA CABRERA Rep #: [id number] : 1945 79 From: Max LAY, RVT PCP: Dr. Tre García MD General Information2 General Information Admitting Diagnosis: chronic bronchitis, unspecified asthma PFT FEV1:: 91 FVC:: 107 FEV1/FVC%:: 84 Personal Learning Style/Barriers Personal Learning Style:: Audio/Visual Barriers to Learning: None Stage of change r/t lifestyle modifications: Contemplation Education/Goals MS Patient Goals: Increase muscle strength: Initial Assessment, [...] Problem/Goals Problems: Knowledge deficit exercise guidelines Goals:: MS: 2-3/wk for 18 weeks [36 sessions] Physician Prescribed Exercise Modalities: Treadmill, Rower, Schwinn Airdyne AD-7, SciFit Stepper, SciFit Pro-II Ergometer and SciFit Lateral [place] Frequency (days/week): 3 Duration (Minutes):: 30-45 Intensity: [...] depression. an (more content not included)... [facility] Office Visit (PULMWS ) VALENTINA CABRERA ([id number]) 1945 M Date Time Provider Department 05/26/24 2:15 PM GENIE BUSTAMANTE PULMWS During your visit today, we recorded the following information about you: Pulse Blood pressure Weight 87/minute 126/70 91.2 kg Genie Bustamante MD 05/26/2024 5:25 PM Signed . Respiratory [place] Note Patient name: Valentina Cabrera PCP: Tre García MD CC: Follow-up airways disease HPI: Valentina Cabrera 79 year old male non-smoker with PMH significant for GERD, BPH, HTN, allergies previously treated with immunotherapy, eventration of the diaphragm, depression and chronic cough. Previously negative methacholine challenge test with referral to Dr. Rcoa for possible vocal cord dysfunction but patient was started on ICS by his primary care physician with resolution of his cough. Was on Dulera, Singulair and as needed albuterol. Recent history notable for COVID infection January of this past year resulting in worsening of his cough and shortness of breath. Patient was actually hospitalized at [facility], hypoxemic, received remdesivir and dexamethasone and [...] chest tightness. 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 Normal [facility] Ctr History AND Physic romulo 05-10-2024 Wound Ctr History & Physical [facility] [address] [place] [address] H P Exam - Wound Care 05/10/24 1226 MR#: [id number] Acct: [id number] Name: VALENTINA CABRERA Rep #: [id number] : 1945 79 From: Kimberly Swenson NP MATERIAL ASSEMBLER-C PCP: Dr. Tre García MD Status:REG RCR [...] He denies any fever, chills, nausea, vomiting. [facility] Medical History Anxiety Lower urinary tract symptoms [...] GI Palpa (more content not included)... Normal [facility] Culture, Anaerobic Any Sourc lynsey 05-05-2024 CUAN LEFT FOREARM No anaerobic bacteria isolated. Normal [facility] Comment on above: Performed By: #### L 500.4050, L100.0100, L506.1000, L501.9520 #### [facility] [place], [address] Wound Cultureon 05-03-2024 WC LEFT FOREARM Staphylococcus [...] S Vancomycin Islt DAMARI 1 S Normal [facility] Comment on above: Performed By: #### L 500.4050, L100.0100, L506.1000, L501.9520 #### [facility] [address] [place], [address] Gram Stainon 05-02-2024 GS LEFT FOREARM Gram Stain Rare Gram positive cocci Rare Red Blood Cells Rare White Blood Cells Normal [facility] Comment on above: Performed By: #### L 500.4050, L100.0100, L506.1000, L501.9520 #### [facility] [address] [place], [address] Bacteria identified Anaer cx Nom (Unsp spec)Ordered By: Tre García on 05-01-2024 Anaerobic Culture No anaerobic bacteri a isolated. [facility] Gram stainOrdered By: Tre plascencia on 05-01-2024 Microscopic observation Gram stain Nom (Unsp spec) [facility] M8200.1075on 05-01-2024 M8200.1075 LEFT FOREARM Normal Reference Range = Negative MRSA/SAUR WOUND PCR GeneXpert Instrument, PCR method MRSA PCR MRSA NEGATIVE STAPH. AUREUS PCR STAPH AUREUS POSITIVEA STAPH. AUREUS PCR STAPH AUREUS POSITIVEA Normal [facility] Comment on above: Performed By: #### L 500.4050, L100.0100, L506.1000, L501.9520 #### [facility] [address] [place], [address] MRSA Wound DNA by PCRon 12-0 MRSA DNA ASSAY Normal Negative [facility] Comment on above: Order Comment: LEFT FOREARMWOUND ON LEFT FOREARM Result Comment: AMOS GED TO MICRO MRSA WOUND ORDER Performed By: #### L 500.4050, L100.0100, L506.1000, L501.9520 #### [facility] [address] [place], [address] PROBE CHECK Normal [facility] Comment on above: Order Comment: LEFT FOREARMWOUND ON LEFT FOREARM Result Comment: AMOS GED TO MICRO MRSA WOUND ORDER Performed By: #### L 500.4050, L100.0100, L506.1000, L501.9520 #### [facility] [address] [place], [address] SA DNA ASSAY Normal Negative [facility] Comment on above: Order Comment: LEFT FOREARMWOUND ON LEFT FOREARM Result Comment: AMOS GED TO MICRO MRSA WOUND ORDER Performed By: #### L 500.4050, L100.0100, L506.1000, L501.9520 #### [facility] [address] [place], [address] SPC Normal [facility] Comment on above: Order Comment: LEFT FOREARMWOUND ON LEFT FOREARM Result Comment: AMOS GED TO MICRO MRSA WOUND ORDER Performed By: #### L 500.4050, L100.0100, L506.1000, L501.9520 #### [facility] [address] [place], [address] Routine wound cultureOrdered By: Tre García on 05-01-2024 Wound Culture Staphylococcus aureus Abnormal [facility] CBC W/Diff, Automatedon 10-2 Absolute Lymph 2.11 X10 3/uL Normal 0.83-4.51 [facility] Comment on above: Performed By: #### L 500.4050, L100.0100, L506.1000, L501.9520 #### [facility] [address] [place], [address] Absolute Neut 3.4 X10 3/uL Normal 2.0-7.7 [facility] Comment on above: Performed By: #### L 500.4050, L100.0100, L506.1000, L501.9520 #### [facility] [address] [place], [address] Basophils/100 WBC (Bld) 0.5 % Normal 0-1 [facility] Comment on above: Performed By: #### L 500.4050, L100.0100, L506.1000, L501.9520 #### [facility] [address] [place], [address] Eosinophils/100 WBC (Bld) 0.5 % Normal 0-5 [facility] Comment on above: Performed By: #### L 500.4050, L100.0100, L506.1000, L501.9520 #### [facility] [address] [place], [address] Erythrocyte distribution width (RBC) [Ratio] 13.4 % Normal 11.6-14.6 [facility] Comment on above: Performed By: #### L 500.4050, L100.0100, L506.1000, L501.9520 #### [facility] [address] [place], [address] Hematocrit (Bld) [Volume fraction] 44.6 % Normal 40-54 [facility] Comment on above: Performed By: #### L 500.4050, L100.0100, L506.1000, L501.9520 #### [facility] [address] [place], [address] Hemoglobin (Bld) [Mass/Vol] 14.6 g/dL Normal 13.0-16.5 [facility] Comment on above: Performed By: #### L 500.4050, L100.0100, L506.1000, L501.9520 #### [facility] [address] [place], [address] IG% 0.300 Normal 0.0-0.9 [facility] Comment on above: Result Comment: IG% - Immature Granulocytes (promyelocytes, myelocytes and metamyelocytes) > 1% indicates that a LEFT SHIFT is Present. Performed By: #### L 500.4050, L100.0100, L506.1000, L501.9520 #### [facility] [address] [place], [address] Lymphocytes/100 WBC (Bld) 35.7 % Normal 19-41 [facility] Comment on above: Performed By: #### L 500.4050, L100.0100, L506.1000, L501.9520 #### [facility] [address] [place], [address] MCH (RBC) [Entitic mass] 30.0 pg Normal 27.0-32.0 [facility] Comment on above: Performed By: #### L 500.4050, L100.0100, L506.1000, L501.9520 #### [facility] [address] [place], [address] MCHC (RBC) [Mass/Vol] 32.7 g/dL Normal 32-36 [facility] Comment on above: Performed By: #### L 500.4050, L100.0100, L506.1000, L501.9520 #### [facility] [address] [place], [address] MCV (RBC) [Entitic vol] 91.6 fL Normal 80-94 [facility] Comment on above: Performed By: #### L 500.4050, L100.0100, L506.1000, L501.9520 #### [facility] [address] [place], [address] Monocytes/100 WBC (Bld) 5.8 % Normal 0-10 [facility] Comment on above: Performed By: #### L 500.4050, L100.0100, L506.1000, L501.9520 #### [facility] [address] [place], [address] Neutrophils/100 WBC (Bld) 57.2 % Normal 47-70 [facility] Comment on above: Performed By: #### L 500.4050, L100.0100, L506.1000, L501.9520 #### [facility] [address] [place], [address] Nucleated RBC (Bld) [#/Vol] 0 10*3/uL Normal 0-5 [facility] Comment on above: Performed By: #### L 500.4050, L100.0100, L506.1000, L501.9520 #### [facility] [address] [place], [address] Platelet mean volume (Bld) [Entitic vol] 9.1 fL Normal 6.2-12.0 [facility] Comment on above: Performed By: #### L 500.4050, L100.0100, L506.1000, L501.9520 #### [facility] [address] [place], [address] Platelets (Bld) [#/Vol] 148 10*3/uL Low 150-450 [facility] Comment on above: Performed By: #### L 500.4050, L100.0100, L506.1000, L501.9520 #### [facility] [address] [place], [address] RBC (Bld) [#/Vol] 4.87 10*6/uL Normal 4.6-6.2 [facility] Comment on above: Performed By: #### L 500.4050, L100.0100, L506.1000, L501.9520 #### [facility] [address] [place], [address] RDW SD 46.0 fl High 35.1-43.9 [facility] Comment on above: Performed By: #### L 500.4050, L100.0100, L506.1000, L501.9520 #### [facility] [address] [place], [address] WBC (Bld) [#/Vol] 5.9 10*3/uL Normal 4.4-11.0 [facility] Comment on above: Performed By: #### L 500.4050, L100.0100, L506.1000, L501.9520 #### [facility] [address] [place], [address] Comprehensive Metabolic Prof ilon 03-21-2024 Albumin [Mass/Vol] 3.7 g/dL Normal 3.2-5.0 [facility] Comment on above: Order Comment: VITD Performed By: #### L 500.4050, L100.0100, L506.1000, L501.9520 #### [facility] [address] [place], [address] Albumin/Globulin [Mass ratio] 1.2 {ratio} Normal 0.9-2.4 [facility] Comment on above: Order Comment: VITD Performed By: #### L 500.4050, L100.0100, L506.1000, L501.9520 #### [facility] [address] [place], [address] ALK P 103 U/L Normal 45-117 [facility] Comment on above: Order Comment: VITD Performed By: #### L 500.4050, L100.0100, L506.1000, L501.9520 #### [facility] [address] [place], [address] ALT [Catalytic activity/Vol] 28 U/L Normal 16-61 [facility] Comment on above: Order Comment: VITD Performed By: #### L 500.4050, L100.0100, L506.1000, L501.9520 #### [facility] [address] [place], [address] AST [Catalytic activity/Vol] 28 U/L Normal 15-37 [facility] Comment on above: Order Comment: VITD Result Comment: Mode rate Hemolysis, Result may be falsely increased. Performed By: #### L 500.4050, L100.0100, L506.1000, L501.9520 #### [facility] [address] [place], [address] Bilirubin [Mass/Vol] 1.00 mg/dL Normal 0.20-1.00 [facility] Comment on above: Order Comment: VITD Result Comment: For patients on eltrombopag therapy, use of Dimension [place] TBIL is not recommended. Performed By: #### L 500.4050, L100.0100, L506.1000, L501.9520 #### [facility] [address] [place], [address] BUN/CRE 14.3 RATIO Normal 10-20 [facility] Comment on above: Order Comment: VITD Performed By: #### L 500.4050, L100.0100, L506.1000, L501.9520 #### [facility] [address] [place], [address] CA,Total 9.1 mg/dL Normal 8.5-10.1 [facility] Comment on above: Order Comment: VITD Performed By: #### L 500.4050, L100.0100, L506.1000, L501.9520 #### [facility] [address] [place], [address] Chloride [Moles/Vol] 108 mmol/L High 98-107 [facility] Comment on above: Order Comment: VITD Performed By: #### L 500.4050, L100.0100, L506.1000, L501.9520 #### [facility] [address] [place], [address] CO2 [Moles/Vol] 25.0 mmol/L Normal 21.0-32.0 [facility] Comment on above: Order Comment: VITD Performed By: #### L 500.4050, L100.0100, L506.1000, L501.9520 #### [facility] [address] [place], [address] Creatinine [Mass/Vol] 1.05 mg/dL Normal 0.70-1.30 [facility] Comment on above: Order Comment: VITD Result Comment: The validity of the calculated GFR GFRAA in patients over 70 years has not been determined. Clinical correlation is essential. Performed By: #### L 500.4050, L100.0100, L506.1000, L501.9520 #### [facility] [address] [place], [address] EST GFR - AA 87 mL/min Normal >60 [facility] Comment on above: Order Comment: VITD Result Comment: Afri can Italian GFR Calc Performed By: #### L 500.4050, L100.0100, L506.1000, L501.9520 #### [facility] [address] [place], [address] GAP 5 Normal 5-15 [facility] Comment on above: Order Comment: VITD Performed By: #### L 500.4050, L100.0100, L506.1000, L501.9520 #### [facility] [address] [place], [address] GFR/1.73 sq M.predicted among non-blacks MDRD (S/P/Bld) [Vol rate/Area] 72 mL/min/{1.73_m2} Normal >60 [facility] Comment on above: Order Comment: VITD Result Comment: Non- GFR Calc Performed By: #### L 500.4050, L100.0100, L506.1000, L501.9520 #### [facility] [address] [place], [address] Globulin (S) [Mass/Vol] 3.0 g/dL Normal 2.2-4.2 [facility] Comment on above: Order Comment: VITD Performed By: #### L 500.4050, L100.0100, L506.1000, L501.9520 #### [facility] [address] [place], [address] Glucose [Mass/Vol] 100 mg/dL Normal 74-106 [facility] Comment on above: Order Comment: VITD Result Comment: Fast ing Glucose result from 100 to 125 mg/dL suggests IMPAIRED HOMEOSTASIS per A.D.A. criteria. Performed By: #### L 500.4050, L100.0100, L506.1000, L501.9520 #### [facility] [address] [place], [address] Potassium [Moles/Vol] 4.4 mmol/L Normal 3.5-5.1 [facility] Comment on above: Order Comment: VITD Result Comment: Mode rate Hemolysis, Result may be falsely increased. Performed By: #### L 500.4050, L100.0100, L506.1000, L501.9520 #### [facility] [address] [place], [address] Sodium [Moles/Vol] 138 mmol/L Normal 136-145 [facility] Comment on above: Order Comment: VITD Performed By: #### L 500.4050, L100.0100, L506.1000, L501.9520 #### [facility] [address] [place], [address] T PROT 6.7 g/dL Normal 6.4-8.2 [facility] Comment on above: Order Comment: VITD Performed By: #### L 500.4050, L100.0100, L506.1000, L501.9520 #### [facility] [address] [place], [address] Urea nitrogen [Mass/Vol] 15 mg/dL Normal 7-18 [facility] Comment on above: Order Comment: VITD Performed By: #### L 500.4050, L100.0100, L506.1000, L501.9520 #### [facility] [address] [place], [address] Thyroid Stim Hormone (TSH)on 03-21-2024 TSH 0.689 uIU/mL Normal 0.358-3.740 [facility] Comment on above: Order Comment: VITD Performed By: #### L 500.4050, L100.0100, L506.1000, L501.9520 #### [facility] [address] [place], [address] Vitamin D,25 Hydroxyon 03-21 Vitamin D 25-OH 14.9 ng/mL Normal [facility] Comment on above: Result Comment: Aixa min D 25(OH) Status Range Deficiency <20 ng/mL (50nmol/L) Insufficiency 20 - 30 ng/mL (50 - 75 nmol/L) Sufficiency 30 - 100 ng/mL (75 - 250 nmol/L) Toxicity >100 ng/mL (>250 nmol/L) Performed By: #### L 500.4050, L100.0100, L506.1000, L501.9520 #### [facility] [address] [place], [address] CREATININE FINGERSTICKon CREATININE WB < 1.0 Normal 0.70-1.30 [facility] Comment on above: Performed By: #### L 9100.0200 #### [facility] [address] [place], [address] EGFR WB > 60.0000 Normal >60 [facility] Comment on above: Performed By: #### L 9100.0200 #### [facility] [address] [place], [place], [address] CTA Chest W/WO Contraston CTA Chest W/WO Contrast [facility] Imaging Services [address] [place] [address] CTA Chest W/WO Contrast MR#: [id number] Acct: [id number] Name: VALENTINA CABRERA Rep #: [id number] : 1945 M 79 From: Rhett Esquivel MD PCP: Dr. Tre García MD Status: REG CLI Study: CTA Chest W/WO Contrast Date of Exam: 02/28/24 Exam# [id number] Ordering Dr: Tre García MD [id number] STUDY: CTA CHEST REASON FOR EXAM: Male, [...] EDT , CC: Dr. Tre García MD Stator Tester: Signed Normal [facility] XR Chest PA and Lateralon IMPRESSION: No acute radiographic abnormality. Stator Tester: TASHI Transcribe Date/Time: Feb 24 2024 6:45A Dictated by : TIBURCIO CORTES MD This examination was interpreted and the report reviewed and electronically signed by: TIBURCIO CORTES MD on Feb 24 2024 6:47AM [facility] DIVISION OF RADIOLOGY * * [...] fractures IMPRESSION IMPRESSION: No acute radiographic abnormality. Stator Tester: PSCB Transcribe Date/Time: Feb 24 2024 6:45A Dictated by : TIBURCIO CORTES MD This examination was interpreted and the report reviewed and electronically signed by: TIBURCIO CORTES MD on Feb 24 2024 6:47AM EST [facility] XR Chest PA and LateralOrder ed By: [facility] Provider on 02-24-2024 [facility] CNOVon 02-23-2024 CNOV Office Visit (PULMWS ) VALENTINA CABRERA ([id number]) 1945 M Date Time Provider Department 02/23/24 [...] needed albuterol. 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 Normal [facility] XR CHEST 2V FRONTAL/LATon XR CHEST 2V [...] rib fractures IMPRESSION: No acute radiographic abnormality. Stator Tester: TASHI Transcribe Date/Time: Feb 24 2024 6:45A Dictated by : TIBURCIO CORTES MD This examination was interpreted and the report reviewed and electronically signed by: TIBURCIO CORTES MD on Feb 24 2024 6:47AM EST [id number] N Normal [facility] XR Chest PA and Lateralon Radiology Study observation (narrative) [facility] M100.678on 02-15-2024 SARS-CoV-2 (COVID-19) Ab IA Ql FLUABV+SARS-CoV-2+RSV Pnl Resp GRACE+probe Copy of report sent to [facility]fection [employer] [id number] 02/15/24 1643 MDREXLER. SARS-CoV-2 (COVID 19) A Positive A INFLUENZA A Negative INFLUENZA B Negative RSV PCR Negative SARS-CoV-2 (COVID 19 PCR) Normal [facility] Comment on above: Performed By: #### L 500.4050, L100.0100, L506.1000, L501.9520 #### [facility] [address] [place], [address] M100.678on 02-08-2024 M100.678 Copy of report sent to Infection [employer] [id number] 02/08/24 1250 JEFFERY. SARS-CoV-2 (COVID 19) A Positive A INFLUENZA A Negative INFLUENZA B Negative RSV PCR Negative SARS-CoV-2 (COVID 19 PCR) Normal [facility] Comment on above: Performed By: #### L 500.4050, L100.0100, L506.1000, L501.9520 #### [facility] [address] [place], [address] CNOVon 01-29-2024 CNOV Office Visit ([facility] ) VALENTINA CARBERA ([id number]) 1945 M Date Time Provider Department 01/29/24 12:45 PM FER RUELAS [facility] During your visit today, we recorded the following information about you: Temperature Pulse Respiration Blood pressure 98.4 degrees 96/minute 18/minute 138/72 Weight 88.6 kg Fer Ruelas PA 01/29/2024 12:49 PM Signed This note was created using [employer]. Subjective Valentina Cabrera is a 79 year old male. HPI 79-year-old male presents for cough, congestion x 1 day. Patient states yesterday he started getting cough, sore throat, nasal congestion and chest congestion. He is was recently sick with similar symptoms as well as his grandson. Patient states he has a low-grade fever yesterday. No fever today. He has not taken anything [id number] for symptoms. 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 B (more content not included)... Normal [facility] COVID AND INFLUENZA A/B AND RSV PCR, ROUTINEon 01-29-2024 SARS-CoV-2 (COVID-19) RNA GRACE+probe Ql (Unsp spec) SARS-COV-2 (AGENT OF COVID-19) RNA: Detected INFLUENZA A RNA: Not detected INFLUENZA B RNA: Not detected RESPIRATORY SYNCYTIAL VIRUS (RSV) RNA: Not detected Abnormal [facility] Comment on above: Performed By: #### C VFLRS #### [facility] CLIA [id number] [address] [place] [address] STATES OF [facility] Wound Ctr History AND Physic romulo 01-03-2024 Wound Ctr History & Physical [facility] [address] [place] [address] H P Exam - Wound Care 01/03/24 1506 MR#: [id number] Acct: [id number] Name: VALENTINA CABRERA Rep #: [id number] : 1945 78 From: Rosario Saleem NP [employer]SEM[employer] PCP: Dr. Tre García MD Status:REG RCR [...] a cluster, with pink granulation tissue present. [facility] Medical History Anxiety Lower urinary tract symptoms [...] of cataract extraction Social History Smoking Status: Former smoker alcohol intake: never [...] Debridement N (more content not included)... Normal [facility] Culture, Anaerobic Any Sourc lynsey 01-01-2024 CUAN No growth in 5 days. Normal [facility] Comment on above: Performed By: #### L 500.4050, L100.0100, L506.1000, L501.9520 #### [facility] [address] [place], [address] Wound Cultureon 12-29-2023 WC No growth aerobically. Normal [facility] Comment on above: Performed By: #### L 500.4050, L100.0100, L506.1000, L501.9520 #### [facility] [address] [place], [address] Gram Stainon 12-27-2023 GS Gram Stain No organisms seen Normal [facility] Comment on above: Performed By: #### L 500.4050, L100.0100, L506.1000, L501.9520 #### [facility] [address] [place], [address] MRSA Wound DNA by PCRon 11-29 MRSA DNA ASSAY Negative Normal Negative [facility] Comment on above: Order Comment: RIGHT ARM Performed By: #### L 500.4050, L100.0100, L506.1000, L501.9520 #### [facility] [address] [place], [address] SA DNA ASSAY Negative Normal Negative [facility] Comment on above: Order Comment: RIGHT ARM Performed By: #### L 500.4050, L100.0100, L506.1000, L501.9520 #### [facility] [place], [address] CNOVon 11-09-2023 CNOV Office Visit (PULMWS ) VALENTINA CABRERA ([id number]) 1945 M Date Time Provider Department 11/09/23 10:30 AM GENIE BUSTAMANTE PULMPRANAY During your visit today, we recorded the following information about you: Pulse Respiration Weight 83/minute 15/minute 86.6 kg Genie Bustamante MD 11/09/2023 11:28 AM Signed . Respiratory [place] Note Patient name: Valentina Cabrera PCP: Jd [...] other lower urinary tract symptoms (LUTS) 07/05/2007 [facility] (current) use of inhaled steroids Lumbar discogenic [...] pancreatic cancer (more content not included)... Normal [facility] Absolute lymphocyte countOrd ered By: Tre García on 09-20-2023 Lymphocytes Auto (Unsp spec) [#/Vol] 2.35 10*3/uL 0.83-4.51 [facility] Automated lymphocyte count a s percentage of total leukocytesOrdered By: Tre García on 09-20-2023 Lymphocytes/100 WBC Auto (Unsp spec) 32.2 % 19-41 [facility] Basophil percentageOrdered B y: Tre García on 09-20-2023 Basophils/100 WBC (Bld) 0.3 % 0-1 [facility] Bilirubin [Mass/Vol] 0.70 mg/dL 0.20-1.00 [facility] Comment on above: For patients on eltr ombopag therapy, use of Dimension [place] TBIL is not recommended. Chloride [Moles/Vol] 110 mmol/L 98-107 [facility] Eosinophils/100 WBC (Bld) 0.1 % 0-5 [facility] Glucose [Mass/Vol] 96 mg/dL 74-106 [facility] Hemoglobin (Bld) [Mass/Vol] 15.5 g/dL 13.0-16.5 [facility] Monocytes/100 WBC (Bld) 5.6 % 0-10 [facility] Neutrophils (Bld) [#/Vol] 4.5 10*3/uL 2.0-7.7 [facility] Neutrophils/100 WBC (Bld) 61.5 % 47-70 [facility] Potassium [Moles/Vol] 4.4 mmol/L 3.5-5.1 [facility] Protein [Mass/Vol] 6.8 g/dL 6.4-8.2 [facility] Sodium [Moles/Vol] 139 mmol/L 136-145 [facility] WBC (Bld) [#/Vol] 7.3 10*3/uL 4.4-11.0 [facility] Determination of erythrocyte mean corpuscular volume (MCV)Ordered By: Tre García on 09-20-2023 MCV (RBC) [Entitic vol] 90.5 fL 80-94 [facility] Erythrocyte distribution wid th ratioOrdered By: [facility] Ricky 09-20-2023 Erythrocyte distribution width (RBC) [Ratio] 13.2 % 11.6-14.6 [facility] Erythrocyte distribution wid th standard deviationOrdered By: [facility] 09-20-2023 Erythrocyte distribution width (RBC) [Entitic vol] 44.3 fL 35.1-43.9 [facility] Hematocrit Auto (Bld) [Volum e fraction]Ordered By: Tre Ricky 09-20-2023 Hematocrit (Bld) [Volume fraction] 46.7 % 40-54 [facility] Immature granulocytes/100 WB C Auto (Bld)Ordered By: Tre García 09-20-2023 Immature granulocytes/100 WBC (Bld) 0.300 % 0.0-0.9 [facility] Comment on above: IG% - Immature Granu locytes (promyelocytes, myelocytes and metamyelocytes) > 1% indicates that a LEFT SHIFT is Present. Laboratory - Chemistry and C hemistry - challengeOrdered By: Tre García 09-20-2023 Albumin/Globulin [Mass ratio] 1.3 {ratio} 0.9-2.4 [facility] ALP [Catalytic activity/Vol] 100 U/L 45-117 [facility] ALT [Catalytic activity/Vol] 27 U/L 16-61 [facility] CO2 [Moles/Vol] 22.0 mmol/L 21.0-32.0 [facility] Globulin (S) [Mass/Vol] 2.9 g/dL 2.2-4.2 [facility] Urea nitrogen/Creatinine [Mass ratio] 15.0 mg/mg 10-20 [facility] Laboratory - Hematology and Cell countsOrdered By: Tre García on 09-20-2023 MCH (RBC) [Entitic mass] 30.0 pg 27.0-32.0 [facility] MCHC (RBC) [Mass/Vol] 33.2 g/dL 32-36 [facility] Nucleated RBC/100 WBC (Bld) [Ratio] 0 % 0-5 [facility] Platelet mean volume (Bld) [Entitic vol] 9.5 fL 6.2-12.0 [facility] Platelets (Bld) [#/Vol] 165 10*3/uL 150-450 [facility] No Panel InformationOrdered By: Tre García on 09-20-2023 Estimated GFR (MDRD) Amer 80 mL/min >60 [facility] Comment on above: GFR Calc Estimated GFR (MDRD) Non-Af Amer 66 mL/min >60 [facility] Comment on above: Non- GFR Calc Prostate Specific Antigen Screen 0.16 ng/mL 0.00-4.00 [facility] Comment on above: This test was perfor med using the TPSA assay method for the[facility] chemistry system. Values obtained with differentassay methods cannot be used interchangably.When changing PSA assays in the course of monitoring apatient, additional sequential testing should be carriedout to confirm baseline values. Vitamin D 25-Hydroxy 23.5 ng/mL [facility] Comment on above: Vitamin D 25(OH) Sta tus Range Deficiency <20 ng/mL (50nmol/L) Insufficiency 20 - 30 ng/mL (50 - 75 nmol/L) Sufficiency 30 - 100 ng/mL (75 - 250 nmol/L) Toxicity >100 ng/mL (>250 nmol/L) RBC Auto (Bld) [#/Vol]Ordere d By: Tre García on 09-20-2023 RBC (Bld) [#/Vol] 5.16 10*6/uL 4.6-6.2 [facility] Serum or plasma calcium patti urement (mass/volume)Ordered By: Tre García on 09-20-2023 Calcium [Mass/Vol] 8.7 mg/dL 8.5-10.1 [facility] Serum or plasma creatinine m easurement (mass/volume)Ordered By: Tre García on 09-20-2023 Creatinine [Mass/Vol] 1.13 mg/dL 0.70-1.30 [facility] Comment on above: The validity of the calculated GFR & GFRAA in patients over 70 years has not been determined. Clinical correlation is essential. Serum or plasma thyroid stim ulating hormone (TSH) measurement (units/volume)Ordered By: Tre García on 09-20-2023 TSH Qn 1.23 uIU/mL 0.358-3.74 [facility] Serum or plasma urea nitroge n measurement (mass/volume)Ordered By: Tre García on 09-20-2023 Urea nitrogen [Mass/Vol] 17 mg/dL 7-18 [facility] Thin prep Papanicolaou smear with manual screeningOrdered By: Tre García on 09-20-2023 Thin prep Papanicolaou smear with manual screening 3.9 g/dL 3.2-5.0 [facility] Thin prep Papanicolaou smear with manual screening 22 U/L 15-37 [facility] Thin prep Papanicolaou smear with manual screening 7 5-15 [facility] Absolute lymphocyte countOrd ered By: Joe Lisa on 08-15-2023 Lymphocytes Auto (Unsp spec) [#/Vol] 3.24 10*3/uL 0.83-4.51 [facility] Automated lymphocyte count a s percentage of total leukocytesOrdered By: Joe Lisa on 08-15-2023 Lymphocytes/100 WBC Auto (Unsp spec) 42.7 % 19-41 [facility] Basophil percentageOrdered B y: Mary Carmenus Maria L on 08-15-2023 Basophils/100 WBC (Bld) 0.1 % 0-1 [facility] Chloride [Moles/Vol] 114 mmol/L 98-107 [facility] Eosinophils/100 WBC (Bld) 0.0 % 0-5 [facility] Glucose [Mass/Vol] 134 mg/dL 74-106 [facility] Comment on above: Fasting Glucose resu lt greater than or equal to 126 mg/dL suggests DIABETES MELLITUS per A.D.A. criteria. Hemoglobin (Bld) [Mass/Vol] 16.0 g/dL 13.0-16.5 [facility] Monocytes/100 WBC (Bld) 4.3 % 0-10 [facility] Neutrophils (Bld) [#/Vol] 4.0 10*3/uL 2.0-7.7 [facility] Neutrophils/100 WBC (Bld) 52.6 % 47-70 [facility] Potassium [Moles/Vol] 4.4 mmol/L 3.5-5.1 [facility] Sodium [Moles/Vol] 142 mmol/L 136-145 [facility] WBC (Bld) [#/Vol] 7.6 10*3/uL 4.4-11.0 [facility] Determination of erythrocyte mean corpuscular volume (MCV)Ordered By: Joe Lisa on 08-15-2023 MCV (RBC) [Entitic vol] 90.7 fL 80-94 [facility] Erythrocyte distribution wid th ratioOrdered By: [place] Maria L on 08-15-2023 Erythrocyte distribution width (RBC) [Ratio] 13.2 % 11.6-14.6 [facility] Erythrocyte distribution wid th standard deviationOrdered By: [place] Maria L on 08-15-2023 Erythrocyte distribution width (RBC) [Entitic vol] 44.4 fL 35.1-43.9 [facility] Hematocrit Auto (Bld) [Volum e fraction][facility]23 Hematocrit (Bld) [Volume fraction] 47.6 % 40-54 [facility] Immature granulocytes/100 WB C Auto (Bld)Ordered By: [facility] Lisa on 08-15-2023 Immature granulocytes/100 WBC (Bld) 0.300 % 0.0-0.9 [facility] Comment on above: IG% - Immature Granu locytes (promyelocytes, myelocytes and metamyelocytes) > 1% indicates that a LEFT SHIFT is Present. Laboratory - Chemistry and C hemistry - challengeOrdered By: Joe Lisa on 08-15-2023 CO2 [Moles/Vol] 23.0 mmol/L 21.0-32.0 [facility] Urea nitrogen/Creatinine [Mass ratio] 15.0 mg/mg 10-20 [facility] Laboratory - Hematology and Cell countsOrdered By: Joe Lisa on 08-15-2023 MCH (RBC) [Entitic mass] 30.5 pg 27.0-32.0 [facility] MCHC (RBC) [Mass/Vol] 33.6 g/dL 32-36 [facility] Nucleated RBC/100 WBC (Bld) [Ratio] 0 % 0-5 [facility] Platelet mean volume (Bld) [Entitic vol] 8.9 fL 6.2-12.0 [facility] Platelets (Bld) [#/Vol] 156 10*3/uL 150-450 [facility] No Panel InformationOrdered By: Joe Lisa on 08-15-2023 Estimated GFR (MDRD) Amer 93 mL/min >60 [facility] Comment on above: GFR Calc Estimated GFR (MDRD) Non-Af Amer 77 mL/min >60 [facility] Comment on above: Non- GFR Calc RBC Auto (Bld) [#/Vol]Ordere d By: Joe Lisa on 08-15-2023 RBC (Bld) [#/Vol] 5.25 10*6/uL 4.6-6.2 [facility] Serum or plasma calcium patti urement (mass/volume)Ordered By: Joe Lisa on 08-15-2023 Calcium [Mass/Vol] 8.7 mg/dL 8.5-10.1 [facility] Serum or plasma creatinine m easurement (mass/volume)Ordered By: Joe Lisa on 08-15-2023 Creatinine [Mass/Vol] 1.00 mg/dL 0.70-1.30 [facility] Comment on above: The validity of the calculated GFR & GFRAA in patients over 70 years has not been determined. Clinical correlation is essential. Serum or plasma urea nitroge n measurement (mass/volume)Ordered By: Joe Lisa on 08-15-2023 Urea nitrogen [Mass/Vol] 15 mg/dL 7-18 [facility] Thin prep Papanicolaou smear with manual screeningOrdered By: Mary Carmen Maria L on 08-15-2023 Thin prep Papanicolaou smear with manual screening 5 5-15 [facility] Absolute lymphocyte countOrd ered By: Tre García on 07-02-2023 Lymphocytes Auto (Unsp spec) [#/Vol] 3.29 10*3/uL 0.83-4.51 [facility] Automated lymphocyte count a s percentage of total leukocytesOrdered By: Tre García on 07-02-2023 Lymphocytes/100 WBC Auto (Unsp spec) 37.7 % 19-41 [facility] Basophil percentageOrdered B y: Tre García on 07-02-2023 Basophils/100 WBC (Bld) 0.2 % 0-1 [facility] Bilirubin [Mass/Vol] 0.90 mg/dL 0.20-1.00 [facility] Comment on above: For patients on eltr ombopag therapy, use of Dimension [place] TBIL is not recommended. Chloride [Moles/Vol] 110 mmol/L 98-107 [facility] Eosinophils/100 WBC (Bld) 0.5 % 0-5 [facility] Glucose [Mass/Vol] 103 mg/dL 74-106 [facility] Comment on above: Fasting Glucose resu lt from 100 to 125 mg/dL suggests IMPAIRED HOMEOSTASIS per A.D.A. criteria. Hemoglobin (Bld) [Mass/Vol] 15.6 g/dL 13.0-16.5 [facility] Monocytes/100 WBC (Bld) 5.2 % 0-10 [facility] Neutrophils (Bld) [#/Vol] 4.9 10*3/uL 2.0-7.7 [facility] Neutrophils/100 WBC (Bld) 56.1 % 47-70 [facility] Potassium [Moles/Vol] 4.5 mmol/L 3.5-5.1 [facility] Protein [Mass/Vol] 6.7 g/dL 6.4-8.2 [facility] Sodium [Moles/Vol] 139 mmol/L 136-145 [facility] WBC (Bld) [#/Vol] 8.7 10*3/uL 4.4-11.0 [facility] 07-02-2023 CNPN Telephone (PULCariWS) VALENTINA CABRERA ([id number]) 1945 M Date Time Provider Department 07/02/23 [...] and needs 90 day supply sent to [facility] but needs initial [facility] to get [facility] He has some of the [place] 100 [...] Encounter Status:Closed by BECKY FIERRO on 07/02/23 [facility] Determination of erythrocyte mean corpuscular volume (MCV)Ordered By: Tre García on 07-02-2023 MCV (RBC) [Entitic vol] 90.8 fL 80-94 [facility] Erythrocyte distribution wid th ratioOrdered By: Tre García on 07-02-2023 Erythrocyte distribution width (RBC) [Ratio] 13.2 % 11.6-14.6 [facility] Erythrocyte distribution wid th standard deviationOrdered By: Tre García on 07-02-2023 Erythrocyte distribution width (RBC) [Entitic vol] 44.0 fL 35.1-43.9 [facility] Hematocrit Auto (Bld) [Volum e fraction]Ordered By: Tre García on 07-02-2023 Hematocrit (Bld) [Volume fraction] 47.3 % 40-54 [facility] Immature granulocytes/100 WB C Auto (Bld)Or[facility]: [facility] Immature granulocytes/100 WBC (Bld) 0.300 % 0.0-0.9 [facility] Comment on above: IG% - Immature Granu locytes (promyelocytes, myelocytes and metamyelocytes) > 1% indicates that a LEFT SHIFT is Present. Laboratory - Chemistry and C hemistry - challengeOrdered By: Tre García on 07-02-2023 Albumin/Globulin [Mass ratio] 1.3 {ratio} 0.9-2.4 [facility] ALP [Catalytic activity/Vol] 107 U/L 45-117 [facility] ALT [Catalytic activity/Vol] 32 U/L 16-61 [facility] CO2 [Moles/Vol] 26.0 mmol/L 21.0-32.0 [facility] Globulin (S) [Mass/Vol] 2.9 g/dL 2.2-4.2 [facility] Urea nitrogen/Creatinine [Mass ratio] 13.9 mg/mg 10-20 [facility] Laboratory - Hematology and Cell countsOrdered By: Tre García 07-02-2023 MCH (RBC) [Entitic mass] 29.9 pg 27.0-32.0 [facility] MCHC (RBC) [Mass/Vol] 33.0 g/dL 32-36 [facility] Nucleated RBC/100 WBC (Bld) [Ratio] 0 % 0-5 [facility] Platelets (Bld) [#/Vol] 162 10*3/uL 150-450 [facility] No Panel InformationOrdered By: Tre García on 07-02-2023 Estimated GFR (MDRD) Amer 100 mL/min >60 [facility] Comment on above: GFR Calc Estimated GFR (MDRD) Non-Af Amer 83 mL/min >60 [facility] Comment on above: Non- GFR Calc Platelet mean volume Skip-Ec ker (Bld) [Entitic vol]Ordered By: Tre García on 07-02-2023 Platelet mean volume (Bld) [Entitic vol] 9.5 fL 6.2-12.0 [facility] RBC Auto (Bld) [#/Vol]Ordere d By: Tre García on 07-02-2023 RBC (Bld) [#/Vol] 5.21 10*6/uL 4.6-6.2 [facility] Serum or plasma calcium patti urement (mass/volume)Ordered By: Tre García on 07-02-2023 Calcium [Mass/Vol] 9.2 mg/dL 8.5-10.1 [facility] Serum or plasma creatinine m easurement (mass/volume)Ordered By: Ter García on 07-02-2023 Creatinine [Mass/Vol] 0.94 mg/dL 0.70-1.30 [facility] Comment on above: The validity of the calculated GFR & GFRAA in patients over 70 years has not been determined. Clinical correlation is essential. Serum or plasma thyroid stim ulating hormone (TSH) measurement (units/volume)Ordered By: Tre García on 07-02-2023 TSH Qn 1.30 uIU/mL 0.358-3.74 [facility] Serum or plasma urea nitroge n measurement (mass/volume)Ordered By: Tre García on 07-02-2023 Urea nitrogen [Mass/Vol] 13 mg/dL 7-18 [facility] Thin prep Papanicolaou smear with manual screeningOrdered By: Tre García on 07-02-2023 Thin prep Papanicolaou smear with manual screening 3.8 g/dL 3.2-5.0 [facility] Thin prep Papanicolaou smear with manual screening 19 U/L 15-37 [facility] Thin prep Papanicolaou smear with manual screening 3 5-15 [facility] Laboratory - Chemistry and C hemistry - challengeOrdered By: Chacho Mcghee on 06-02-2023 Natriuretic peptide B (Bld) [Mass/Vol] 40.9 pg/mL 0-100 [facility] MIPS/MEPSon 04-19-2023 [facility] SPIROMETRY BASELINE ONLYon 1 06-19-2022 KFW52-33% PRE (L/S) 1.25 L/S [facility] FEV1 PRE (L) 2.73 L [facility] FEV1/FVC PRE (%) 67 % [facility] FVC PRE (L) 4.09 L [facility] MEP PRE (cmH2O) 112.80 [facility]O [facility] MIP PRE (cmH2O) -104.06 cmH2O [facility] PEF PRE (L/S) 7.39 L/S [facility] Laboratory - Microbiology an d Antimicrobial susceptibilityOrdered By: Tre García on 04-08-2023 SARS-CoV-2 (COVID-19) RNA GRACE+probe Ql (Unsp spec) [facility] No Panel InformationOrdered By: Tre García on 04-08-2023 Influenza Types A,B Direct FA (DAMARI) [facility] RSV Ag EIAOrdered By: Tre plascencia on 04-08-2023 RSV Ag Immune stain Ql (Tiss) [facility] Absolute lymphocyte countOrd ered By: Tre García on 03-18-2023 Lymphocytes Auto (Unsp spec) [#/Vol] 3.40 10*3/uL 0.83-4.51 [facility] Basophil percentageOrdered B y: Tre García on 03-18-2023 Basophils/100 WBC (Bld) 0.4 % 0-1 [facility] Bilirubin [Mass/Vol] 0.50 mg/dL 0.20-1.00 [facility] Comment on above: For patients on eltr ombopag therapy, use of Dimension [place] TBIL is not recommended. Chloride [Moles/Vol] 111 mmol/L 98-107 [facility] Eosinophils/100 WBC (Bld) 0.6 % 0-5 [facility] Glucose [Mass/Vol] 102 mg/dL 74-106 [facility] Comment on above: Fasting Glucose resu lt from 100 to 125 mg/dL suggests IMPAIRED HOMEOSTASIS per A.D.A. criteria. Neutrophils (Bld) [#/Vol] 4.3 10*3/uL 2.0-7.7 [facility] Neutrophils/100 WBC (Bld) 51.6 % 47-70 [facility] Potassium [Moles/Vol] 4.2 mmol/L 3.5-5.1 [facility] Protein [Mass/Vol] 7.0 g/dL 6.4-8.2 [facility] Sodium [Moles/Vol] 141 mmol/L 136-145 [facility] WBC (Bld) [#/Vol] 8.4 10*3/uL 4.4-11.0 [facility] Blood erythrocytes count (nu mber/volume)Ordered By: Tre García on 03-18-2023 RBC (Bld) [#/Vol] 5.36 10*6/uL 4.6-6.2 [facility] Blood hemoglobin measurement (mass/volume)Ordered By: Tre García on 03-18-2023 Hemoglobin (Bld) [Mass/Vol] 16.3 g/dL 13.0-16.5 [facility] Blood lymphocytes/100 leukoc ytesOrdered By: Tre García on 03-18-2023 Lymphocytes/100 WBC (Bld) 40.7 % 19-41 [facility] Blood monocytes/100 leukocyt esOrdered By: Tre García on 03-18-2023 Monocytes/100 WBC (Bld) 6.3 % 0-10 [facility] Blood platelet mean volumeOr dered By: Tre García on 03-18-2023 Platelet mean volume (Bld) [Entitic vol] 8.9 fL 6.2-12.0 [facility] Determination of erythrocyte mean corpuscular volume (MCV)Ordered By: Tre García on 03-18-2023 MCV (RBC) [Entitic vol] 90.1 fL 80-94 [facility] Hematocrit Auto (Bld) [Volum e fraction]Ordered By: Tre García on 03-18-2023 Hematocrit (Bld) [Volume fraction] 48.3 % 40-54 [facility] Laboratory - Chemistry and C hemistry - challengeOrdered By: Tre García on 03-18-2023 ALP [Catalytic activity/Vol] 111 U/L 45-117 [facility] ALT [Catalytic activity/Vol] 32 U/L 16-61 [facility] CO2 [Moles/Vol] 24.0 mmol/L 21.0-32.0 [facility] Cobalamin (Vitamin B12) [Mass/Vol] 466 pg/mL 211-911 [facility] Globulin (S) [Mass/Vol] 3.2 g/dL 2.2-4.2 [facility] Urea nitrogen/Creatinine [Mass ratio] 19.2 mg/mg 10-20 [facility] Laboratory - Hematology and Cell countsOrdered By: Tre García on 03-18-2023 Erythrocyte distribution width (RBC) [Entitic vol] 44.0 fL 35.1-43.9 [facility] Erythrocyte distribution width (RBC) [Ratio] 13.2 % 11.6-14.6 [facility] Immature granulocytes/100 WBC (Bld) 0.400 % 0.0-0.9 [facility] Comment on above: IG% - Immature Granu locytes (promyelocytes, myelocytes and metamyelocytes) > 1% indicates that a LEFT SHIFT is Present. MCH (RBC) [Entitic mass] 30.4 pg 27.0-32.0 [facility] Nucleated RBC/100 WBC (Bld) [Ratio] 0 % 0-5 [facility] MCHC Auto (RBC) [Mass/Vol]Or dered By: Tre García on 03-18-2023 MCHC (RBC) [Mass/Vol] 33.7 g/dL 32-36 [facility] No Panel InformationOrdered By: Tre García on 03-18-2023 Estimated GFR (MDRD) Amer 100 mL/min >60 [facility] Comment on above: GFR Calc Estimated GFR (MDRD) Non-Af Amer 82 mL/min >60 [facility] Comment on above: Non- GFR Calc Hepatitis C Antibody Non-Reactive Nonreactive [facility] Comment on above: Non Reactive: < 0.8 Equivocal: >/= 0.8 to < 1.0 Reactive: >/= 1.0The CDC recommends that a reactive/equivocal HCV antibody result be followed up by the HCV Nucleic Acid Amplificationtest (518957) Thyroid Stimulating Hormone (TSH) 0.99 uIU/mL 0.358-3.74 [facility] Vitamin D 25-Hydroxy 21.7 ng/mL [facility] Comment on above: Vitamin D 25(OH) Sta tus Range Deficiency <20 ng/mL (50nmol/L) Insufficiency 20 - 30 ng/mL (50 - 75 nmol/L) Sufficiency 30 - 100 ng/mL (75 - 250 nmol/L) Toxicity >100 ng/mL (>250 nmol/L) Platelets bldOrdered By: Tre García on 03-18-2023 Platelets (Bld) [#/Vol] 159 10*3/uL 150-450 [facility] Serum or plasma albumin patti urement (mass/volume)Ordered By: Tre García on 03-18-2023 Albumin [Mass/Vol] 3.8 g/dL 3.2-5.0 [facility] Serum or plasma albumin/glob ulin mass ratioOrdered By: Tre Ricky on 03-18-2023 Albumin/Globulin [Mass ratio] 1.2 {ratio} 0.9-2.4 [facility] Serum or plasma calcium patti urement (mass/volume)Ordered By: Tre García 03-18-2023 Calcium [Mass/Vol] 8.8 mg/dL 8.5-10.1 [facility] Serum or plasma creatinine m easurement (mass/volume)Ordered By: Tre García 03-18-2023 Creatinine [Mass/Vol] 0.94 mg/dL 0.70-1.30 [facility] Comment on above: The validity of the calculated GFR & GFRAA in patients over 70 years has not been determined. Clinical correlation is essential. Serum or plasma folate measu rement (mass/volume)Ordered By: Tre García 03-18-2023 Folate [Mass/Vol] 12.30 ng/mL 3.1-55.4 [facility] Serum or plasma urea nitroge n measurement (mass/volume)Ordered By: Tre García 03-18-2023 Urea nitrogen [Mass/Vol] 18 mg/dL 7-18 [facility] Thin prep Papanicolaou smear with manual screeningOrdered By: Tre García 03-18-2023 Thin prep Papanicolaou smear with manual screening 21 U/L 15-37 [facility] Thin prep Papanicolaou smear with manual screening 6 5-15 [facility] CBC W Auto Differential pane l (Bld)on 03-09-2023 Basophils (Bld) [#/Vol] <0.11 k/uL C [facility] Basophils/100 WBC (Bld) 0.2 % C [facility] Differential cell count method Nom (Bld) Auto [facility] Eosinophils (Bld) [#/Vol] 0.03 10*3/uL <0.46 k/uL [facility] Eosinophils/100 WBC (Bld) 0.4 % [facility] Erythrocyte distribution width (RBC) [Ratio] 13.2 % 11.5 - 15.0 % [facility] Hematocrit (Bld) [Volume fraction] 47.3 % 39.0 - 51.0 % [facility] Hemoglobin (Bld) [Mass/Vol] 15.2 g/dL 13.0 - 17.0 g/dL [facility] Immature granulocytes (Bld) [#/Vol] 0.03 10*3/uL <0.10 k/uL [facility] Immature granulocytes/100 WBC (Bld) 0.4 % [facility] Lymphocytes (Bld) [#/Vol] 2.78 10*3/uL 1.00 - 4.00 k/uL [facility] Lymphocytes/100 WBC (Bld) 34.6 % [facility] MCH (RBC) [Entitic mass] 30.5 pg 26.0 - 34.0 pg [facility] MCHC (RBC) [Mass/Vol] 32.1 g/dL 30.5 - 36.0 g/dL [facility] MCV (RBC) [Entitic vol] 94.8 fL 80.0 - 100.0 fL [facility] Monocytes (Bld) [#/Vol] 0.59 10*3/uL <0.87 k/uL [facility] Monocytes/100 WBC (Bld) 7.3 % [facility] Neutrophils (Bld) [#/Vol] 4.58 10*3/uL 1.45 - 7.50 k/uL [facility] Neutrophils/100 WBC (Bld) 57.1 % [facility] Nucleated RBC (Bld) [#/Vol] <0.01 k/uL [facility] Nucleated RBC/100 WBC (Bld) [Ratio] 0.0 /100 WBC [facility] Platelet mean volume (Bld) [Entitic vol] 12.2 fL 9.0 - 12.7 fL [facility] Platelets (Bld) [#/Vol] 192 10*3/uL 150 - 400 k /uL [facility] RBC (Bld) [#/Vol] 4.99 10*6/uL 4.20 - 6.0 0 m/uL [facility] WBC (Bld) [#/Vol] 8.03 10*3/uL 3.70 - 11. 00 k/uL [facility] NM CARDIAC PERF STRESS/EXERC ISEon 03-01-2023 [facility] No Panel Informationon 12-10 [facility] CBC W Auto Differential pane l (Bld)on 09-08-2022 Basophils (Bld) [#/Vol] 0.03 10*3/uL <0.11 k/uL [facility] Basophils/100 WBC (Bld) 0.4 % [facility] Differential cell count method Nom (Bld) Auto [facility] Eosinophils (Bld) [#/Vol] 0.04 10*3/uL <0.46 k/uL [facility] Eosinophils/100 WBC (Bld) 0.5 % [facility] Erythrocyte distribution width (RBC) [Ratio] 13.2 % 11.5 - 15.0 % [facility] Hematocrit (Bld) [Volume fraction] 48.2 % 39.0 - 51.0 % [facility] Hemoglobin (Bld) [Mass/Vol] 15.9 g/dL 13.0 - 17.0 g/dL [facility] Immature granulocytes (Bld) [#/Vol] 0.03 10*3/uL <0.10 k/uL [facility] Immature granulocytes/100 WBC (Bld) 0.4 % [facility] Lymphocytes (Bld) [#/Vol] 2.99 10*3/uL 1.00 - 4.00 k/uL [facility] Lymphocytes/100 WBC (Bld) 38.2 % [facility] MCH (RBC) [Entitic mass] 30.2 pg 26.0 - 34.0 pg [facility] MCHC (RBC) [Mass/Vol] 33.0 g/dL 30.5 - 36.0 g/dL [facility] MCV (RBC) [Entitic vol] 91.6 fL 80.0 - 100.0 fL [facility] Monocytes (Bld) [#/Vol] 0.75 10*3/uL <0.87 k/uL [facility] Monocytes/100 WBC (Bld) 9.6 % [facility] Neutrophils (Bld) [#/Vol] 3.98 10*3/uL 1.45 - 7.50 k/uL [facility] Neutrophils/100 WBC (Bld) 50.9 % [facility] Nucleated RBC (Bld) [#/Vol] <0.01 k/uL [facility] Nucleated RBC/100 WBC (Bld) [Ratio] 0.0 /100 WBC [facility] Platelet mean volume (Bld) [Entitic vol] 10.9 fL 9.0 - 12.7 fL [facility] Platelets (Bld) [#/Vol] 145 10*3/uL Low 150 - 400 k /uL [facility] RBC (Bld) [#/Vol] 5.26 10*6/uL 4.20 - 6.0 0 m/uL [facility] WBC (Bld) [#/Vol] 7.82 10*3/uL 3.70 - 11. 00 k/uL [facility] XR RIBS/CHEST 3V AP RIB/OBLS /CXR RIGHTon 08-19-2022 [facility] XR Ribs - right Views and Ch est PAon 08-19-2022 IMPRESSION: Right sixth and seventh rib age indeterminate fractures, likely representing old rib fractures. Stator Tester: TASHI Transcribe Date/Time: Aug 19 2022 9:33A Dictated by : RONI VAIL MD This examination was interpreted and the report reviewed and electronically signed by: RONI VAIL MD on Aug 19 2022 9:38AM [facility] DIVISION OF RADIOLOGY * * [...] indeterminate fractures, likely representing old rib fractures. Stator Tester: SHOB Transcribe Date/Time: Aug 19 2022 9:33A Dictated by : RONI VAIL MD This examination was interpreted and the report reviewed and electronically signed by: RONI VAIL MD on Aug 19 2022 9:38AM EST [facility] Radiology Study observation (narrative) [facility] XR Ribs - right Views and Ch est PAOrdered By: Ccf Provider on 08-19-2022 [facility] XR Chest PA and Lateralon IMPRESSION: Questionable hazy opacities overlying the right upper lung. Consider follow-up. Stator Tester: PSCB Transcribe Date/Time: May 11 2022 9:14A [...] to prior trauma. DIVISION OF RADIOLOGY Provider, [facility] - 05/11/2022 * * *Final Report* [...] overlying the right upper lung. Consider follow-up. Stator Tester: PSCRosa Transcribe Date/Time: May 11 2022 9:14A Dictated by : RONI VAIL MD This examination was interpreted and the report reviewed and electronically signed by: RONI VAIL MD on May 11 2022 9:16AM [facility] Radiology Study observation (narrative) [facility] XR Chest PA and LateralOrder ed By: Ccf Provider on 05-11-2022 [facility] Eosinophils Auto (Bld) [#/Vo l]on 04-10-2022 Eosinophils (Bld) [#/Vol] 0.05 10*3/uL <0.46 k/uL [facility] LUNG VOLUMESon 03-11-2022 [facility] NITRIC OXIDE, EXHALEDon 02-28 [facility] XR CHEST 2V FRONTAL/LATon [facility] XR Chest PA and Lateralon IMPRESSION: No acute radiographic abnormality. Stator Tester: PSCB Transcribe Date/Time: Feb 23 2022 12:14P Dictated by : BLANCO TIMMONS MD This examination was interpreted and the report reviewed and electronically signed by: BLANCO TIMMONS MD on Feb 23 2022 12:17PM [facility] DIVISION OF RADIOLOGY * * [...] Mild degenerative changes. DIVISION OF RADIOLOGY Provider, [facility] [facility] [place] - 02/23/2022 * * *Final Report* * [...] changes. IMPRESSION IMPRESSION: No acute radiographic abnormality. Stator Tester: PSCB Transcribe Date/Time: Feb 23 2022 12:14P Dictated by : BLANCO TIMMONS MD This examination was interpreted and the report reviewed and electronically signed by: BLANCO TIMMONS MD on Feb 23 2022 12:17PM [facility] Radiology Study observation (narrative) [facility] Chest PA and LateralOrder ed By: Ccf Provider on 02-23-2022 [facility] CBC panel Auto (Bld)on 09-04 Erythrocyte distribution width (RBC) [Ratio] 13.1 % 11.5 - 15.0 % [facility] Hematocrit (Bld) [Volume fraction] 45.4 % 39.0 - 51.0 % [facility] Hemoglobin (Bld) [Mass/Vol] 15.6 g/dL 13.0 - 17.0 g/dL [facility] MCH (RBC) [Entitic mass] 31.0 pg 26.0 - 34.0 pg [facility] MCHC (RBC) [Mass/Vol] 34.4 g/dL 30.5 - 36.0 g/dL [facility] MCV (RBC) [Entitic vol] 90.3 fL 80.0 - 100.0 fL [facility] Nucleated RBC (Bld) [#/Vol] 10*3/uL <0.01 k/uL [facility] Platelet mean volume (Bld) [Entitic vol] 8.8 fL Low 9.0 - 12.7 fL [facility] Platelets (Bld) [#/Vol] 151 10*3/uL 150 - 400 k /uL [facility] RBC (Bld) [#/Vol] 5.03 10*6/uL 4.20 - 6.0 0 m/uL [facility] WBC (Bld) [#/Vol] 6.87 10*3/uL 3.70 - 11. 00 k/uL [facility] Comprehensive metabolic 2000 panelon 09-04-2021 Albumin [Mass/Vol] 4.3 g/dL 3.9 - 4.9 g/dL [facility] ALP [Catalytic activity/Vol] 103 U/L 38 - 113 U/L [facility] ALT [Catalytic activity/Vol] 19 U/L 10 - 54 U/L [facility] Anion gap [Moles/Vol] 10 mmol/L 9 - 18 mmol/L [facility] AST [Catalytic activity/Vol] 23 U/L 14 - 40 U/L [facility] Bilirubin [Mass/Vol] 0.6 mg/dL 0.2 - 1 .3 mg/dL [facility] Calcium [Mass/Vol] 8.8 mg/dL 8.5 - 10. 2 mg/dL [facility] Chloride [Moles/Vol] 103 mmol/L 97 - 10 5 mmol/L [facility] CO2 [Moles/Vol] 24 mmol/L 22 - 30 mmol/L [facility] Creatinine [Mass/Vol] 0.96 mg/dL 0.73 - 1.22 mg/dL [facility] Estimated Glomerular Filtration Rate 81 mL/min/1.73m >=60 mL/min/1.73m [facility] Glucose [Mass/Vol] 119 mg/dL High 74 - 99 mg/dL [facility] Potassium [Moles/Vol] 4.5 mmol/L 3.7 - 5.1 mmol/L [facility] Protein [Mass/Vol] 6.4 g/dL 6.3 - 8.0 g/dL [facility] Sodium [Moles/Vol] 137 mmol/L 136 - 144 mmol/L [facility] Urea nitrogen [Mass/Vol] 14 mg/dL 9 - 24 mg/d L [facility] CNNURSEon 08-16-2020 CNNURSE Nurse Visit (JOSE L) VALENTINA CABRERA ([id number]) 1945 M Date Time Provider Department 08/16/20 ENRIQUETA SHEPARD ([facility]) JOSE L During your visit today, we recorded the following information about you: Allergies As of Date: 08/16/2020 Noted Allergy Reaction environmental [Other] 02/26/2005 5 - Intolerance Date Reviewed: 07/26/2020 Reviewed by: Deirdre (Tech) Rodrigue Aguirre - Fully Assessed Order(s):[employer] SARS-COV-2 VACCINE 2D DOSE APPT [[id number]] Order #: [id number] Prescriptions as of 08/16/2020 Sig: SUCRALFATE 1 [...] 06/29/2016 Internal hemorrhoids [K64.8] 01/11/2018 Encounter Status:Open [facility] CNNURSEon 07-26-2020 CNNURSE Nurse Visit (COVAMD) VALENTINA CABRERA ([id number]) 1945 M Date Time Provider Department 07/26/20 1:45 PM COVID VACCINE [facility] During your visit today, we recorded the following information about you: Referring Provider: JOSHUA CHAMPAGNE [[id number]] Allergies As of Date: 07/26/2020 Noted Allergy Reaction environmental [Other] 02/26/2005 5 - Intolerance Date Reviewed: 07/26/2020 Reviewed by: Deirdre ([employer]) Rodrgiue Aguirre - Fully Assessed Primary Visit Diagnosis:Need for COVID-19 vaccine [Z23] Order(s):SARS-COVID VACCINE 1ST DOSE APPT [[id number]] Order #: [id number] [employer] COVID-19 VACCINE [[id number]] Order #: [id number] [employer] SARS-COV-2 VACCINE 2D DOSE APPT [[id number]] Order #: [id number] FUTURE Prescriptions as of 07/26/2020 Sig: ENTERIC [...] Encounter Status:Closed by ENRIQUETA SHEPARD on 07/27/20 [facility] Vital Signs Date Time Vital Sign Value Performing Clinician Fransisca chong 09-28-2024 00:28-0400 Body mass index (BMI) [Ratio] 29.8 kg/m2 Dr. Tre García MD Work Phone: [facility] 09-28-2024 00:28-0400 Body weight 89.[address] Tre García MD Work Phone: [facility] 09-15-2024 08:14-0400 Body height 172.[address] Tre García MD Work Phone: [facility] 09-15-2024 08:14-0400 Body mass index (BMI) [Ratio] 29.8 kg/m2 Dr. Tre García MD Work Phone: [facility] 09-15-2024 08:14-0400 Body weight 89.[address] Tre García MD Work Phone: [facility] 08-17-2024 14:28-0400 Body height 172.[address] Tre García MD Work Phone: [facility] 08-17-2024 14:28-0400 Body mass index (BMI) [Ratio] 30 kg/m2 Dr. Tre García MD Work Phone: [phone] [place] [address] 08-17-2024 14:28-0400 Body weight 89.[address] Tre García MD Work Phone: [phone] [address] 07-27-2024 07:17-0500 Body mass index (BMI) [Ratio] 29.7 kg/m2 Dr. Tre García MD Work Phone: [phone])[phone] [place] [address] 07-27-2024 07:17-0500 Body weight 88.[address] Tre Garíca MD Work Phone: [phone] [place] [address] 06-29-2024 13:26-0500 Body mass index (BMI) [Ratio] 29.8 kg/m2 Dr. Tre García MD Work Phone: [phone])[phone] [address] 06-29-2024 13:26-0500 Body weight 89.[address] Tre García MD Work Phone: [phone] [address] 05-29-2024 15:11-0500 Body mass index (BMI) [Ratio] 29.3 kg/m2 Dr. Tre García MD Work Phone: [phone] [place] [address] 05-29-2024 15:10-0500 Body weight 87.[address] Tre García MD Work Phone: [phone] [place] [address] 05-29-2024 14:36-0500 Diastolic blood pressure 74 mm[Hg] Dr. Tre García MD Work Phone: [phone])[phone] [place] [address] 05-29-2024 14:36-0500 Heart rate 90 /min Dr. Tre García MD Work Phone: [facility] 05-29-2024 14:36-0500 SaO2% (BldA) [Mass fraction] 95 % Dr. Tre García MD Work Phone: [facility] 05-29-2024 14:36-0500 Systolic blood pressure 128 mm[Hg] Dr. Tre García MD Work Phone: [facility] 05-26-2024 13:57-0500 Body mass index (BMI) [Ratio] 31.33 kg/m2 Genie Bustamante MD Work Phone: [facility] 05-26-2024 13:57-0500 Body weight 91.17 kg Genie Bustamante MD Work Phone: [facility] 05-26-2024 13:57-0500 Diastolic blood pressure 70 mm[Hg] Genie Bustamante MD Work Phone: [facility] 05-26-2024 13:57-0500 Heart rate 87 /min Genie Bustamante MD Work Phone: [facility] 05-26-2024 13:57-0500 SaO2% (BldA) [Mass fraction] 96 % Genie Bustamante MD Work Phone: [facility] 05-26-2024 13:57-0500 Systolic blood pressure 126 mm[Hg] Genie Bustamante MD Work Phone: [facility] 05-17-2024 09:09-0500 Body mass index (BMI) [Ratio] 28.7 kg/m2 Dr. Tre García MD Work Phone: [facility] 05-17-2024 09:09-0500 Body temperature 96.9 [degF] Dr. Tre García MD Work Phone: [facility] 05-17-2024 09:09-0500 Diastolic blood pressure 71 mm[Hg] Dr. Tre García MD Work Phone: [facility] 05-17-2024 09:09-0500 Heart rate 84 /min Dr. Tre García MD Work Phone: [facility] 05-17-2024 09:09-0500 Respiratory rate 18 /min Dr. Tre García MD Work Phone: [facility] 05-17-2024 09:09-0500 Systolic blood pressure 131 mm[Hg] Dr. Tre García MD Work Phone: [facility] 05-10-2024 09:21-0500 Body weight 85.[address] Tre García MD Work Phone: [facility] 01-29-2024 12:36-0400 Body mass index (BMI) [Ratio] 30.44 kg/m2 Krislyn Aberegg PA Work Phone: [facility] 01-29-2024 12:36-0400 Body temperature 98.4 [degF] Krislyn Aberegg PA Work Phone: [facility] 01-29-2024 12:36-0400 Body weight 88.6 kg Krislyn Aberegg PA Work Phone: [facility] 01-29-2024 12:36-0400 Diastolic blood pressure 72 mm[Hg] Krislyn Aberegg PA Work Phone: [facility] 01-29-2024 12:36-0400 Heart rate 96 /min Krislyn Aberegg PA Work Phone: [facility] 01-29-2024 12:36-0400 Respiratory rate 18 /min Krislyn Aberegg PA Work Phone: [facility] 01-29-2024 12:36-0400 SaO2% (BldA) [Mass fraction] 95 % Krislyn Aberegg PA Work Phone: [facility] 01-29-2024 12:36-0400 Systolic blood pressure 138 mm[Hg] Krislyn Aberegg PA Work Phone: [facility] 11-09-2023 10:16-0400 Body mass index (BMI) [Ratio] 29.77 kg/m2 Genie Bustamante MD Work Phone: [facility] 11-09-2023 10:16-0400 Body weight 86.64 kg Genie Bustamante MD Work Phone: [facility] 11-09-2023 10:16-0400 Heart rate 83 /min Genie Bustamante MD Work Phone: [facility] [facility] 11-09-2023 10:16-0400 Respiratory rate 15 /min Genie Bustamante MD Work Phone: [facility] 11-09-2023 10:16-0400 SaO2% (BldA) [Mass fraction] 98 % Genie Bustamante MD Work Phone: [facility] 08-15-2023 13:13-0400 Body temperature 97.8 [degF] Dr. Tre García Work Phone: [facility] 08-15-2023 13:13-0400 Diastolic blood pressure 64 mm[Hg] Dr. Tre García Work Phone: [facility] 08-15-2023 13:13-0400 Heart rate 81 /min Dr. Tre García Work Phone: [facility] 08-15-2023 13:13-0400 Respiratory rate 16 /min Dr. Tre García Work Phone: [facility] 08-15-2023 13:13-0400 SaO2% (BldA) [Mass fraction] 96 % Dr. Tre García Work Phone: [facility] 08-15-2023 13:13-0400 Systolic blood pressure 124 mm[Hg] Dr. Tre García Work Phone: [facility] 08-15-2023 11:14-0400 Body height 172.[address] Tre García Work Phone: [facility] 06-02-2023 11:20-0500 Body height 175.[address] Jd Solis Work Phone: [facility] 06-02-2023 11:20-0500 Body mass index (BMI) [Ratio] 28.8 kg/m2 Dr. Jd Solis Work Phone: [facility] 06-02-2023 11:20-0500 Body weight 88.[address] Jd Solis Work Phone: [facility] 06-02-2023 11:20-0500 Diastolic blood pressure 85 mm[Hg] Dr. Jd Solis Work Phone: [facility] 06-02-2023 11:20-0500 Heart rate 83 /min Dr. Jd Solis Work Phone: [facility] 06-02-2023 11:20-0500 Respiratory rate 14 /min Dr. Jd Solis Work Phone: [facility] 06-02-2023 11:20-0500 Systolic blood pressure 125 mm[Hg] Dr. Jd Solis Work Phone: [facility] 04-19-2023 10:57-0500 Body height 170.6 cm [facility] Work Phone: [facility] 03-09-2023 09:35-0400 Body weight 88.95 kg Jd Solis MD Work Phone: [facility] 03-09-2023 09:35-0400 Diastolic blood pressure 78 mm[Hg] Jd Solis MD Work Phone: [facility] 03-09-2023 09:35-0400 Heart rate 88 /min Jd Solis MD Work Phone: [facility] 03-09-2023 09:35-0400 Respiratory rate 16 /min Jd Solis MD Work Phone: [facility] 03-09-2023 09:35-0400 Systolic blood pressure 120 mm[Hg] Jd Solis MD Work Phone: [facility] 01-21-2023 09:19-0400 Body height 175.3 cm Becky Fierro PA-C Work Phone: [facility] 01-21-2023 09:19-0400 Body weight 89.18 kg Becky Fierro PA-C Work Phone: [facility] 01-21-2023 09:19-0400 Diastolic blood pressure 70 mm[Hg] Becky Rhiannon PA-C Work Phone: [facility] 01-21-2023 09:19-0400 Heart rate 90 /min Becky Rhiannon PA-C Work Phone: [facility] 01-21-2023 09:19-0400 Respiratory rate 14 /min Becky Rhiannon PA-C Work Phone: [facility] 01-21-2023 09:19-0400 SaO2% (BldA) [Mass fraction] 94 % Becky Rhiannon PA-C Work Phone: [facility] 01-21-2023 09:19-0400 Systolic blood pressure 116 mm[Hg] Becky Rhiannon PA-C Work Phone: [facility] 12-10-2022 08:43-0400 Body weight 88.91 kg Becky Rhiannon PA-C Work Phone: [facility] 09-08-2022 09:14-0400 Body weight 87.09 kg Jd Solis MD Work Phone: [facility] 09-08-2022 09:14-0400 Diastolic blood pressure 78 mm[Hg] Jd Solis MD Work Phone: [facility] 09-08-2022 09:14-0400 Heart rate 68 /min Jd Solis MD Work Phone: [facility] 09-08-2022 09:14-0400 Respiratory rate 16 /min Jd Solis MD Work Phone: [facility] 09-08-2022 09:14-0400 Systolic blood pressure 120 mm[Hg] Jd Solis MD Work Phone: [facility] 08-19-2022 09:02-0400 Body temperature 96.91 [degF] Mich Mathis APRN.RESIDUE FURNACE OPERATOR Work Phone: [facility] 08-19-2022 09:02-0400 Body weight 88.91 kg Mich Del BENDING ROLL OPERATOR.RESIDUE FURNACE OPERATOR Work Phone: [facility] 08-19-2022 09:02-0400 Diastolic blood pressure 76 mm[Hg] Mich Mathis BENDING ROLL OPERATOR.RESIDUE FURNACE OPERATOR Work Phone: [facility] 08-19-2022 09:02-0400 Heart rate 118 /min Mich Del BENDING ROLL OPERATOR.RESIDUE FURNACE OPERATOR Work Phone: [facility] 08-19-2022 09:02-0400 Respiratory rate 18 /min Mich Mathis BENDING ROLL OPERATOR.RESIDUE FURNACE OPERATOR Work Phone: [facility] 08-19-2022 09:02-0400 SaO2% (BldA) [Mass fraction] 94 % Mich Mathis BENDING ROLL OPERATOR.RESIDUE FURNACE OPERATOR Work Phone: [facility] 08-19-2022 09:02-0400 Systolic blood pressure 124 mm[Hg] Mich Mathis BENDING ROLL OPERATOR.RESIDUE FURNACE OPERATOR Work Phone: [facility] 07-09-2022 10:16-0500 Body weight 89.36 kg Genie Bustamante MD Work Phone: [facility] 07-09-2022 10:16-0500 Diastolic blood pressure 65 mm[Hg] Genie Bustamante MD Work Phone: [facility] 07-09-2022 10:16-0500 Heart rate 92 /min Genie Bustamante MD Work Phone: [facility] 07-09-2022 10:16-0500 SaO2% (BldA) [Mass fraction] 94 % Genie Bustamante MD Work Phone: [facility] 07-09-2022 10:16-0500 Systolic blood pressure 126 mm[Hg] Genie Bustamante MD Work Phone: [facility] 05-13-2022 08:47-0500 Body weight 88.45 kg Betty Barraza BENDING ROLL OPERATOR.RESIDUE FURNACE OPERATOR Work Phone: [facility] 05-13-2022 08:47-0500 Diastolic blood pressure 70 mm[Hg] Betty Barraza BENDING ROLL OPERATOR.RESIDUE FURNACE OPERATOR Work Phone: [facility] 05-13-2022 08:47-0500 Heart rate 98 /min Betty Tannhof BENDING ROLL OPERATOR.RESIDUE FURNACE OPERATOR Work Phone: [facility] 05-13-2022 08:47-0500 Respiratory rate 16 /min Betty Alvarezhof BENDING ROLL OPERATOR.RESIDUE FURNACE OPERATOR Work Phone: [facility] 05-13-2022 08:47-0500 SaO2% (BldA) [Mass fraction] 97 % Betty Alvarezhof BENDING ROLL OPERATOR.RESIDUE FURNACE OPERATOR Work Phone: [facility] 05-13-2022 08:47-0500 Systolic blood pressure 114 mm[Hg] Betty Tannhof BENDING ROLL OPERATOR.RESIDUE FURNACE OPERATOR Work Phone: [facility] 05-10-2022 09:30-0500 Body temperature 98.29 [degF] Moi Plummer BENDING ROLL OPERATOR.RESIDUE FURNACE OPERATOR Work Phone: [facility] 05-10-2022 09:30-0500 Body weight 88.45 kg Moi Plummer BENDING ROLL OPERATOR.RESIDUE FURNACE OPERATOR Work Phone: [facility] 05-10-2022 09:30-0500 Diastolic blood pressure 78 mm[Hg] Moi Barrylebury BENDING ROLL OPERATOR.RESIDUE FURNACE OPERATOR Work Phone: [facility] 05-10-2022 09:30-0500 Heart rate 108 /min Moi Plummer BENDING ROLL OPERATOR.RESIDUE FURNACE OPERATOR Work Phone: [facility] 05-10-2022 09:30-0500 Respiratory rate 18 /min Moi Barrylebury BENDING ROLL OPERATOR.RESIDUE FURNACE OPERATOR Work Phone: [facility] 05-10-2022 09:30-0500 SaO2% (BldA) [Mass fraction] 95 % Moi Reddylepoli BENDING ROLL OPERATOR.RESIDUE FURNACE OPERATOR Work Phone: [facility] 05-10-2022 09:30-0500 Systolic blood pressure 124 mm[Hg] Moi Barrylepoli BENDING ROLL OPERATOR.RESIDUE FURNACE OPERATOR Work Phone: [facility] 05-03-2022 12:22-0500 Body temperature 97.2 [degF] Camila Comer APRN.RESIDUE FURNACE OPERATOR Work Phone: [facility] 05-03-2022 12:22-0500 Body weight 79.56 kg Camilapipo Comer APRN.RESIDUE FURNACE OPERATOR Work Phone: [facility] 05-03-2022 12:22-0500 Diastolic blood pressure 76 mm[Hg] Camila Comer APRN.RESIDUE FURNACE OPERATOR Work Phone: [facility] 05-03-2022 12:22-0500 Heart rate 88 /min Camila Comer APRN.RESIDUE FURNACE OPERATOR Work Phone: [facility] 05-03-2022 12:22-0500 Respiratory rate 16 /min Camila Comer APRN.RESIDUE FURNACE OPERATOR Work Phone: [facility] 05-03-2022 12:22-0500 SaO2% (BldA) [Mass fraction] 95 % Camila Comer APRN.RESIDUE FURNACE OPERATOR Work Phone: [facility] 05-03-2022 12:22-0500 Systolic blood pressure 130 mm[Hg] Camila Comer APRN.RESIDUE FURNACE OPERATOR Work Phone: [facility] 04-10-2022 08:50-0500 Body weight 88 kg Becky Fierro PA-C Work Phone: [facility] 03-11-2022 13:14-0400 Body weight 88.36 kg Jd Solis MD Work Phone: [facility] 03-11-2022 13:14-0400 Diastolic blood pressure 72 mm[Hg] Jd Solis MD Work Phone: [facility] 03-11-2022 13:14-0400 Heart rate 80 /min Jd Solis MD Work Phone: [facility] 03-11-2022 13:14-0400 Respiratory rate 16 /min Jd Solis MD Work Phone: [facility] 03-11-2022 13:14-0400 SaO2% (BldA) [Mass fraction] 95 % Jd Solis MD Work Phone: [facility] 03-11-2022 13:14-0400 Systolic blood pressure 118 mm[Hg] Jd Solis MD Work Phone: [facility] 03-11-2022 09:11-0400 Body height 172.5 cm Respiratory Wstr Work Phone: [facility] 03-11-2022 09:11-0400 Body weight 88 kg Respiratory Wstr Work Phone: [facility] 02-27-2022 13:20-0400 Body weight 87.09 kg Genie Bustamante MD Work Phone: [facility] 02-27-2022 13:20-0400 Diastolic blood pressure 78 mm[Hg] Genie Bustamante MD Work Phone: [facility] 02-27-2022 13:20-0400 Heart rate 83 /min Genie Bustamante MD Work Phone: [facility] 02-27-2022 13:20-0400 Respiratory rate 16 /min Genie Bustamante MD Work Phone: [facility] 02-27-2022 13:20-0400 SaO2% (BldA) [Mass fraction] 98 % Genie Bustamante MD Work Phone: [facility] 02-27-2022 13:20-0400 Systolic blood pressure 138 mm[Hg] Genie Bustamante MD Work Phone: [facility] 02-23-2022 11:31-0400 Body weight 87.09 kg Betty Tannhof BENDING ROLL OPERATOR.RESIDUE FURNACE OPERATOR Work Phone: [facility] 02-23-2022 11:31-0400 Diastolic blood pressure 70 mm[Hg] Betty Tannhof BENDING ROLL OPERATOR.RESIDUE FURNACE OPERATOR Work Phone: [facility] 02-23-2022 11:31-0400 Heart rate 94 /min Betty Tannhof BENDING ROLL OPERATOR.RESIDUE FURNACE OPERATOR Work Phone: [facility] 02-23-2022 11:31-0400 Respiratory rate 16 /min Betty Tannhof BENDING ROLL OPERATOR.RESIDUE FURNACE OPERATOR Work Phone: [facility] 02-23-2022 11:31-0400 SaO2% (BldA) [Mass fraction] 90 % Betty Alvarezhof BENDING ROLL OPERATOR.RESIDUE FURNACE OPERATOR Work Phone: [facility] 02-23-2022 11:31-0400 Systolic blood pressure 110 mm[Hg] Betty Alvarezhof BENDING ROLL OPERATOR.RESIDUE FURNACE OPERATOR Work Phone: [facility] 02-15-2022 11:10-0400 Body temperature 97.2 [degF] Camila Comer BENDING ROLL OPERATOR.RESIDUE FURNACE OPERATOR Work Phone: [facility] 02-15-2022 11:10-0400 Body weight 87.09 kg Camila Comer BENDING ROLL OPERATOR.RESIDUE FURNACE OPERATOR Work Phone: [facility] 02-15-2022 11:10-0400 Diastolic blood pressure 68 mm[Hg] Camila Comer BENDING ROLL OPERATOR.RESIDUE FURNACE OPERATOR Work Phone: [facility] 02-15-2022 11:10-0400 Heart rate 95 /min Camila Comer APRN.RESIDUE FURNACE OPERATOR Work Phone: [facility] 02-15-2022 11:10-0400 Respiratory rate 18 /min Camila Comer BENDING ROLL OPERATOR.RESIDUE FURNACE OPERATOR Work Phone: [facility] 02-15-2022 11:10-0400 SaO2% (BldA) [Mass fraction] 95 % Camila Comer BENDING ROLL OPERATOR.RESIDUE FURNACE OPERATOR Work Phone: [facility] 02-15-2022 11:10-0400 Systolic blood pressure 106 mm[Hg] Camila Comer BENDING ROLL OPERATOR.RESIDUE FURNACE OPERATOR Work Phone: [facility] 02-06-2022 09:11-0400 Body weight 88.45 kg Bettypatel Alvarezhof BENDING ROLL OPERATOR.RESIDUE FURNACE OPERATOR Work Phone: [facility] 02-06-2022 09:11-0400 Diastolic blood pressure 68 mm[Hg] Betty Alvarezhof BENDING ROLL OPERATOR.RESIDUE FURNACE OPERATOR Work Phone: [facility] 02-06-2022 09:11-0400 Heart rate 87 /min Betty Alvarezhof BENDING ROLL OPERATOR.RESIDUE FURNACE OPERATOR Work Phone: [facility] 02-06-2022 09:11-0400 Respiratory rate 16 /min Betty Christi BENDING ROLL OPERATOR.RESIDUE FURNACE OPERATOR Work Phone: [facility] 02-06-2022 09:11-0400 SaO2% (BldA) [Mass fraction] 96 % Bettypatel Alvarezhof BENDING ROLL OPERATOR.RESIDUE FURNACE OPERATOR Work Phone: [facility] 02-06-2022 09:11-0400 Systolic blood pressure 116 mm[Hg] Betty Alvarezhof BENDING ROLL OPERATOR.RESIDUE FURNACE OPERATOR Work Phone: [facility] 12-03-2021 10:25-0400 Body weight 88.45 kg Berkley Rajguru BENDING ROLL OPERATOR.RESIDUE FURNACE OPERATOR Work Phone: [facility] 12-03-2021 10:25-0400 Diastolic blood pressure 58 mm[Hg] Berkley Rajguru BENDING ROLL OPERATOR.RESIDUE FURNACE OPERATOR Work Phone: [facility] 12-03-2021 10:25-0400 Systolic blood pressure 122 mm[Hg] Berkley Rajguru BENDING ROLL OPERATOR.RESIDUE FURNACE OPERATOR Work Phone: [facility] 09-03-2021 12:49-0400 Body weight 86.73 kg Jd Solis MD Work Phone: [facility] 09-03-2021 12:49-0400 Diastolic blood pressure 72 mm[Hg] Jd Solis MD Work Phone: [facility] 09-03-2021 12:49-0400 Heart rate 68 /min Jd Solis MD Work Phone: [facility] 09-03-2021 12:49-0400 Respiratory rate 14 /min Jd Solis MD Work Phone: [facility] 09-03-2021 12:49-0400 Systolic blood pressure 120 mm[Hg] Jd Solis MD Work Phone: [facility] 08-27-2021 10:53-0400 Body weight 88 kg Berkley Rajguru BENDING ROLL OPERATOR.RESIDUE FURNACE OPERATOR Work Phone: [facility] 08-27-2021 10:53-0400 Diastolic blood pressure 66 mm[Hg] Berkley Ildefonsomarlenaashu BENDING ROLL OPERATOR.RESIDUE FURNACE OPERATOR Work Phone: [facility] 08-27-2021 10:53-0400 Heart rate 68 /min Berkley Ildefonsomarlenaashu BENDING ROLL OPERATOR.RESIDUE FURNACE OPERATOR Work Phone: [facility] 08-27-2021 10:53-0400 Systolic blood pressure 122 mm[Hg] Berkley Ildefonsomarlenaashu BENDING ROLL OPERATOR.RESIDUE FURNACE OPERATOR Work Phone: [facility] Encounters Encounter Date Encounter Type Care Provider Facility Start: 11-08-2024 ambulatory Tre García Facility:[facility] Start: 10-13-2024 End: 10-28-[address] Tre García MD Work Phone: [facility] Work Phone: Start: 10-13-2024 End: 10-28-[address] Tre García MD -Pulmonary Rehab Work Phone: Start: 09-19-2024 End: 09-19-[address] Tre García MD Work Phone: [facility] Work Phone: Start: 09-19-2024 End: 09-19-[address] Tre García MD -Laboratory Work Phone: Start: 09-18-2024 End: 09-27-2024 ambulatory Tre García Facility:[facility] Start: 09-18-2024 End: 09-27-[address] Tre García MD -Pulmonary Rehab Work Phone: Start: 09-18-[address] Tre moore MD -Pulmonary Rehab Work Phone: Start: 08-28-2024 End: 08-28-[address] Tre García MD Work Phone: [facility] Work Phone: Start: 08-28-2024 End: 08-28-[address] Tre García MD -Pulmonary Rehab Work Phone: Start: 08-21-[address] Tre moore MD -Pulmonary Rehab Work Phone: Start: 08-14-2024 End: 08-14-[address] Tre García MD Work Phone: [facility] Work Phone: Start: 08-14-2024 End: 08-14-[address] Tre García MD -Laboratory, Phy Office 3rd Flr Start: 08-14-2024 End: 08-14-2024 ambulatory [facility] Facility:[facility] Start: 07-28-2024 End: 07-28-2024 ambulatory [facility] Facility:[facility] Start: 07-28-2024 End: 07-28-[address] Tre García MD -Pulmonary Rehab Work Phone: Start: 06-30-2024 End: 06-30-2024 [facility] Start: 06-30-2024 End: 06-30-[address] Tre García MD -Pulmonary Rehab Work Phone: Start: 05-29-2024 End: 05-29-[address] Tre García MD -Pulmonary Rehab Work Phone: Start: 05-29-2024 End: 05-29-[facility]24 [facility] Start: 05-26-2024 End: 05-26-2024 ambulatory GENIE BUSTAMANTE Facility:[facility] Start: 05-26-2024 End: 05-26-2024 Patient encounter procedure Genie Bustamante MD Work Phone: Pulmonary Medicine Comment on above: Small airways diseas e (Primary Dx); History of COVID-19; Diaphragm, eventration Start: 05-17-2024 Non-patient / Non-visit Kimberly franklin MATERIAL ASSEMBLER-C -[facility] Start: 05-17-2024 End: 05-22-2024 ambulatory Tre Chi Ricky Facility:[facility] Start: 05-17-2024 End: 05-22-2024 Discharged Recurring Kimberly Messi MATERIAL ASSEMBLER-C -[facility] Work Phone: Start: 05-10-2024 Non-patient / Non-visit Kimberlyradha franklin MATERIAL ASSEMBLER-C -[facility] Start: 05-01-2024 End: 05-01-[address] Tre García MD -Laboratory, Phy Office 3rd Flr Start: 05-01-2024 End: 05-01-2024 ambulatory Tre Chi Ricky Facility:[facility] Start: 04-12-2024 ambulatory Tre Chi Ricky Facility:[facility] Start: 04-12-2024 End: 04-12-2024 ambulatory [facility] Facility:[facility] Start: 03-21-2024 End: 03-21-2024 ambulatory [facility] Facility:[facility] Start: 03-09-2024 End: 03-27-2024 ambulatory Becky PATELC Work Phone: Pulmonary Medicine Comment on above: COPD Start: 03-06-2024 End: 03-06-2024 ambulatory [facility] Facility:[facility] Start: 03-01-2024 End: 03-01-2024 ambulatory Genie Bustamante MD Work Phone: Pulmonary Medicine Comment on above: TRELEGLORIA ellipta Start: 02-28-2024 End: 02-28-2024 ambulatory [facility] Facility:[facility] Start: 02-23-2024 End: 02-23-2024 Subsequent hospital visit by physician [facility] Work Phone: Radiology Comment on above: Acute cough [R05.1] Start: 02-23-2024 End: 02-23-2024 ambulatory BECKY FIERRO Facility:[facility] Start: 02-23-2024 End: 02-23-2024 Patient encounter procedure [...] 02-15-2024 End: 02-15-2024 ambulatory Tre Chi Ricky Facility:[facility] Start: 02-08-2024 End: 02-08-2024 ambulatory Tre Chi Ricky Facility:[facility] Start: 01-29-2024 End: 01-29-2024 ambulatory TRE CHI RICKY Facility:[facility] Start: 01-29-2024 End: 01-29-2024 Patient encounter procedure Fer PORTER Work Phone: [facility] Comment on above: URI, acute (Primary Dx) Start: 01-17-2024 End: 01-17-2024 ambulatory Tre Chi Ricky Facility:[facility] Start: 01-10-2024 ambulatory Tre Chi Ricky Facility:[facility] Start: 01-03-2024 ambulatory Tre Chi Ricky [facility] Start: 12-27-2023 End: 12-27-2023 ambulatory Tre Chi Ricky Facility:[facility] Start: 11-09-2023 End: 11-09-2023 ambulatory GENIE BUSTAMANTE Facility:[facility] Start: 11-09-2023 End: 11-09-2023 Patient encounter procedure Genie Bustamante MD Work Phone: Pulmonary Medicine Comment on above: Mild persistent asth ma without complication (Primary Dx); Seasonal allergies Start: 09-20-2023 End: 09-20-[address] Tre García Work Phone: [facility] Work Phone: Start: 09-20-2023 End: 09-20-[address] Tre García Work Phone: [facility]-Laboratory, Phy Office 3rd Flr Start: 08-15-2023 End: 08-15-2023 Emergency department patient visit Dr. Tre García Work Phone: [facility]-Emergency Department Work Phone: Start: 07-02-2023 Telephone encounter Becky Fierro PA-C Work Phone: Pulmonary Medicine Comment on above: Medication Problem Start: 07-02-2023 End: 07-02-[address] Jd Solis Work Phone: [facility] Work Phone: Start: 07-02-2023 End: 07-02-[address] Jd Solis Work Phone: [facility]-Laboratory, Phy Office 3rd Flr Start: 06-02-2023 End: 06-02-[address] Jd Solis Work Phone: [facility] Work Phone: Start: 06-02-2023 End: 06-02-[address] Jd Solsi Work Phone: [facility] Work Phone: Start: 05-03-2023 Refill Betty Barraza APRN.[facility] Work Phone: [facility] [place] Comment on above: Refill Request Start: 04-19-2023 End: 04-19-2023 ambulatory [facility] Work Phone: [facility] Comment on above: Spirometry Start: 04-19-2023 End: 04-19-2023 Patient encounter procedure Pulm Lab [facility] Work Phone: [facility] Start: 04-08-2023 End: 04-08-[address] Jd Solis Work Phone: [facility]-Pulmonary Services/Neurology Work Phone: Start: 04-05-2023 Non-patient / Non-visit Dr. Joe Solis Work Phone: [facility] Start: 04-05-2023 End: 04-05-[address] Jd Solis Work Phone: [facility] Work Phone: Start: 04-05-2023 End: 04-05-[address] Jd Solis Work Phone: [facility]-Cardiovascul ar Services Work Phone: Start: 03-18-2023 End: 03-18-2023 ambulatory [facility] Work Phone: Start: 03-18-2023 End: 03-18-2023 Patient encounter procedure [facility]-Laboratory, Phy Office 3rd Flr Start: 03-09-2023 End: 03-09-2023 Patient encounter procedure Jd Solis MD Work Phone: [facility] [place] Comment on above: Essential hypertensi on, benign (Primary Dx); Moderate persistent asthma without complication; Benign non-nodular prostatic hyperplasia with lower urinary tract symptoms; Recurrent major depressive disorder, in full remission (HCC); Anxiety; Low platelet count (HCC) Start: 03-01-2023 End: 03-01-2023 Subsequent hospital visit by physician [facility] Work Phone: Nuclear Medicine Comment on [...] m caregiver Becky Fierro PA-C Work Phone: [facility] Start: 12-11-2022 Telephone encounter Becky Fierro PA-C Work Phone: Pulmonary Medicine Comment on above: Medication Problem ( Not sure of increase of dosage) Start: 12-10-2022 End: 12-10-2022 ambulatory Pulm Lab [facility] Work Phone: [facility] Comment on above: Spirometry Start: 12-10-2022 End: 12-10-2022 Patient encounter procedure Pulm Lab [facility] Work Phone: [facility] Comment on above: Cough variant asthma (Primary Dx); SOB (shortness of breath); History of environmental allergies Start: 12-06-2022 ambulatory Genie Bustamante MD Work Phone: Pulmonary Medicine Comment on above: Medication question Start: 09-18-2022 ambulatory Becky Mcleod [facility] Work Phone: Pulmonary Medicine Comment on above: Albuterol Inhaler Start: 09-08-2022 End: 09-08-2022 Patient encounter procedure dJ Solis MD Work Phone: [facility] [place] Comment on above: Essential hypertensi on, benign (Primary Dx); Recurrent major depressive disorder, in full remission (HCC); Benign non-nodular prostatic hyperplasia with lower urinary tract symptoms; Moderate persistent asthma without complication; Musculoskeletal pain; Thrombocyte disorder (HCC); Elevated glucose Start: 08-24-2022 Refill Becky Mcleod Evogen Work Phone: Pulmonary Medicine Comment on above: Refill Request Start: 08-19-2022 End: 08-19-2022 Subsequent hospital visit by physician Xr [facility] Work Phone: Radiology Comment on above: Rib pain on right si de [R07.81] Start: 08-19-2022 End: 08-19-2022 Patient encounter procedure Mich Mathis APRN.CNP Work Phone: [facility] Comment on above: Rib pain on right si de (Primary Dx) Start: 07-09-2022 End: 07-09-2022 Patient encounter procedure Genie Bustamante MD Work Phone: Pulmonary Medicine Comment on above: Cough variant asthma (Primary Dx) Start: 05-13-2022 End: 05-13-2022 Patient encounter procedure Betty Barraza BENDING ROLL OPERATOR.RESIDUE FURNACE OPERATOR Work Phone: Family [facility] [place] Comment on above: SOB (shortness of br eath) (Primary Dx); Acute cough; Moderate persistent asthma without complication Start: 05-11-2022 End: 05-11-2022 Subsequent hospital visit by physician Holden [facility] Work Phone: Radiology Comment on above: Acute cough [R05.1] Start: 05-10-2022 End: 05-10-2022 Patient encounter procedure Moi Plummer BENDING ROLL OPERATOR.RESIDUE FURNACE OPERATOR Work Phone: [facility] Comment on above: Viral illness (Prima ry Dx); Acute cough Start: 05-03-2022 End: 05-03-2022 Patient encounter procedure Camila Comer BENDING ROLL OPERATOR.RESIDUE FURNACE OPERATOR Work Phone: [facility] Comment on above: URI, acute (Primary Dx); Rhinosinusitis Start: 04-30-2022 Telephone encounter Betty noyola BENDING ROLL OPERATOR.RESIDUE FURNACE OPERATOR Work Phone: [facility] [place] Comment on above: Results (Covid/Flu ) [...] Telephone encounter Jd key MD Work Phone: [address] [place] [address] Comment on above: Patient Question Start: 03-19-2022 Refill Mayur HILL RN.RESIDUE FURNACE OPERATOR Work Phone: [facility] [place] Comment on above: Refill Request Start: 03-17-2022 ambulatory Genie Bustamante MD Work Phone: Pulmonary Medicine Comment on above: Mucinex Start: 03-16-2022 ambulatory Genie Bustamante MD Work Phone: Pulmonary Medicine Comment on above: Steroid Beta inhaler Start: 03-12-2022 ambulatory Genie Bustamante MD Work Phone: Pulmonary Medicine Comment on above: Flu and booster shot s Start: 03-11-2022 End: 03-11-2022 ambulatory Respiratory Therapist [facility] Work Phone: Pulmonary Medicine Comment on above: Spirometry Question about twist haler Start: 03-11-2022 End: 03-11-2022 Patient encounter procedure Respiratory Therapist [facility] Work Phone: [facility] Comment on above: Essential hypertensi [...] COVID-19 Start: 02-25-2022 Telephone encounter Betty noyola APRN.RESIDUE FURNACE OPERATOR Work Phone: Family [facility] [place] Comment on above: Results (Labs) Start: 02-23-2022 End: 02-23-2022 Subsequent hospital visit by physician Xr [facility] [place] Work Phone: Radiology Comment on above: SOB (shortness of br eath) [R06.02] Start: 02-23-2022 End: 02-23-2022 Patient encounter procedure Betty Barraza APRN.RESIDUE FURNACE OPERATOR Work Phone: [facility] [place] Comment on above: SOB (shortness of br eath) (Primary Dx); Bronchitis; Fatigue, unspecified type Start: 02-16-2022 Telephone encounter Camila Comer APRN.[facility] Work Phone: [facility] Comment on above: Results Start: 02-15-2022 End: 02-15-2022 Patient encounter procedure Camila Souleymane CORREA.[facility] Work Phone: [facility] Comment on above: At increased risk of exposure to COVID-19 virus (Primary Dx) Start: 02-06-2022 End: 02-06-2022 Patient encounter procedure Betty Barraza APRN.[facility] Work Phone: [facility] Comment on above: Viral illness (Prima ry Dx); Acute cough Start: 12-03-2021 End: 12-03-2021 Patient encounter procedure Berkley Roque APRN.[facility] Work Phone: Psychiatry Comment on above: Recurrent major depr essive disorder, in full remission (HCC) (Primary Dx) Start: 09-03-2021 End: 09-03-2021 Patient encounter procedure Jd Solis MD Work Phone: [facility] Comment on above: Essential hypertensi on, benign (Primary Dx); Encounter for hepatitis C screening test for low risk patient; Benign non-nodular prostatic hyperplasia with lower urinary tract symptoms; Recurrent major depressive disorder, in full remission (HCC) Start: 08-27-2021 End: 08-27-2021 Patient encounter procedure Berkley Roque APRN.[facility] Work Phone: Psychiatry Comment on above: Recurrent [...] Radiologic exam ches t 2 views Becky [employer] Work Phone: Start: 08-15-2023 CT of head without contrast Dr. Tre García Work Phone: Start: 04-19-2023 Spmtry w/vc expirato ry lindsay w/wo mxml vol vntj Becky Fierro PA-[employer] Work Phone: Start: 04-19-2023 Unlisted pulmonary service/procedure Becky [employer] Work Phone: Start: 04-08-2023 Coronavirus COVID-19 PCR [...] teroant ch minimum 3 views Mich Mathis BENDING ROLL OPERATOR.RESIDUE FURNACE OPERATOR Work Phone: Start: 05-11-2022 Radiologic exam ches t 2 views Moi Plummer BENDING ROLL OPERATOR.RESIDUE FURNACE OPERATOR Work Phone: Start: 03-11-2022 Nitric oxide gas determination Genie Bustamante MD Work Phone: Start: 03-11-2022 Brncdilat rspse spmt ry pre&post-brncdilat admn Genie Bustamante MD Work Phone: Start: 02-23-2022 Radiologic exam ches t 2 views Betty Barraza BENDING ROLL OPERATOR.RESIDUE FURNACE OPERATOR Work Phone: Plan of Treatment Date Care Activity Detail Author Start: 03-19-2033 Urine microalbumin profile DTa P,Tdap,Td Vaccine (5 - Td or Tdap) [facility] Start: 10-01-2026 Urine microalbumin profile [facility] Start: 09-08-2025 DIABETES SCREEN DIABETES SCREEN [facility] Start: 09-08-2025 Diabetes Screening Diabetes Screenin g [facility] Start: 05-26-2025 BP Controlled (<130/80) BP Con trolled (<130/80) [facility] Start: 05-11-2025 DIABETES SCREEN DIABETES SCREEN [facility] Start: 02-23-2025 DIABETES SCREEN DIABETES SCREEN [facility] Start: 02-22-2025 BP Controlled (<130/80) BP Con trolled (<130/80) [facility] Start: 11-24-2024 End: 11-24-2024 Patient encounter procedure 11/24/2024 10:00 AM EDT Office Visit Pulmonary Medicine [address] [place] [place] [address] Namrata Fernandes APRN.RESIDUE FURNACE OPERATOR [address] [place] [address] 6 month follow up Pulmonary Medicine Comment on above: 6 month follow up Start: 11-08-2024 BP Controlled (<130/80) BP Con trolled (<130/80) [facility] Start: 09-04-2024 DIABETES SCREEN DIABETES SCREEN [facility] Start: 05-26-2024 End: 05-26-2024 Patient encounter procedure 05/26/2024 2:15 PM EST Office Visit Pulmonary Medicine [address] [place] [phone] Genie Bustamante MD [address] [place], [place] [id number] 6 month f/u Pulmonary Medicine Comment on above: 6 month f/u Start: 04-28-2024 DIABETES SCREEN DIABETES SCREEN [facility] Start: 04-19-2024 BP Controlled (<130/80) BP Con trolled (<130/80) [facility] Start: 03-09-2024 Annual PCP Team Cashier Supervisor santy Disease Visit Annual PCP Team Chronic Disease Visit [facility] Start: 03-09-2024 BP Controlled (<130/80) BP Con trolled (<130/80) [facility] Start: 02-23-2024 End: 02-23-2024 Patient encounter procedure 02/23/2024 1:30 PM EDT Office Visit Pulmonary Medicine [address] [place], [place] [phone] Becky Fierro PA-C [address] [place], [place] [phone] Asthma/ post covid Pulmonary Medicine Comment on above: Asthma/ post covid Start: 01-30-2024 Covid-19 Vaccine ( season) Covid-19 Vaccine ( season) [facility] Start: 01-30-2024 Influenza vaccination Influenza Vacc ine (#1) [facility] Start: 01-29-2024 End: 02-12-2024 COVID & INFLUENZA A/B & RSV PCR, ROUTINE COVID & INFLUENZA A/B & RSV PCR, ROUTINE Microbiology Routine URI, acute Expected: 01/29/2024, Expires: 02/12/2024 [facility] Work Phone: Comment on above: Expected: 01/29/2024 , Expires: 02/12/2024 Start: 01-22-2024 BP CONTROLLED (<130/80) BP CON TROLLED (<130/80) [facility] Start: 01-05-2024 ANNUAL PCP TEAM ASSISTANT PROFESSOR OF THEATER SANTY DISEASE VISIT ANNUAL PCP TEAM CHRONIC DISEASE VISIT [facility] Start: 12-11-2023 BP CONTROLLED (<130/80) BP CON TROLLED (<130/80) [facility] Start: 09-09-2023 ANNUAL PCP TEAM ASSISTANT PROFESSOR OF THEATER SANTY DISEASE VISIT ANNUAL PCP TEAM CHRONIC DISEASE VISIT [facility] Start: 09-09-2023 BP CONTROLLED (<130/80) BP CON TROLLED (<130/80) [facility] Start: 09-08-2023 End: 11-08-2023 CBC W Auto Differential panel - Blood CBC + DIFF Lab Routine Essential hypertension, benign Low platelet count (HCC) Expected: 09/08/2023 (Approximate), Expires: 11/08/2023 [facility] Work Phone: Comment on above: Expected: 09/08/2023 (Approximate), Expires: 11/08/2023 Start: 09-08-2023 End: 11-08-2023 Comprehensive metabolic 2000 panel - Serum or Plasma COMP METABOLIC PANEL Lab Routine Essential hypertension, benign Expected: 09/08/2023 (Approximate), Expires: 11/08/2023 [facility] Work Phone: Comment on above: Expected: 09/08/2023 (Approximate), Expires: 11/08/2023 Start: 09-08-2023 End: 11-08-2023 Lipid 1996 panel - Serum or Plasma LIPID PANEL BASIC Lab Routine Essential hypertension, benign Expected: 09/08/2023 (Approximate), Expires: 11/08/2023 [facility] Work Phone: Comment on above: Expected: 09/08/2023 (Approximate), Expires: 11/08/2023 Start: 08-20-2023 BP CONTROLLED (<130/80) BP CON TROLLED (<130/80) [facility] Start: 08-15-2023 [facility] Start: 07-09-2023 BP CONTROLLED (<130/80) BP CON TROLLED (<130/80) [facility] Start: 05-31-2023 Advance Directive Discussion Advance Directive Discussion [facility] Start: 05-13-2023 ANNUAL PCP TEAM ASSISTANT PROFESSOR OF THEATER SANTY DISEASE VISIT ANNUAL PCP TEAM CHRONIC DISEASE VISIT [facility] Start: 05-13-2023 BP CONTROLLED (<130/80) BP CON TROLLED (<130/80) [facility] Start: 05-10-2023 BP CONTROLLED (<130/80) BP CON TROLLED (<130/80) [facility] Start: 04-29-2023 ANNUAL PCP TEAM ASSISTANT PROFESSOR OF THEATER SANTY DISEASE VISIT ANNUAL PCP TEAM CHRONIC DISEASE VISIT [facility] Start: 04-10-2023 BP CONTROLLED (<130/80) BP CON TROLLED (<130/80) [facility] Start: 03-11-2023 ANNUAL PCP TEAM ASSISTANT PROFESSOR OF THEATER SANTY DISEASE VISIT ANNUAL PCP TEAM CHRONIC DISEASE VISIT [facility] Start: 03-11-2023 BP CONTROLLED (<130/80) BP CON TROLLED (<130/80) [facility] Start: 02-23-2023 ANNUAL PCP TEAM ASSISTANT PROFESSOR OF THEATER SANTY DISEASE VISIT ANNUAL PCP TEAM CHRONIC DISEASE VISIT [facility] Start: 02-23-2023 BP CONTROLLED (<130/80) BP CON TROLLED (<130/80) [facility] Start: 02-15-2023 BP CONTROLLED (<130/80) BP CON TROLLED (<130/80) [facility] Start: 02-06-2023 ANNUAL PCP TEAM ASSISTANT PROFESSOR OF THEATER SANTY DISEASE VISIT ANNUAL PCP TEAM CHRONIC DISEASE VISIT [facility] Start: 02-06-2023 BP CONTROLLED (<130/80) BP CON TROLLED (<130/80) [facility] Start: 01-29-2023 Influenza vaccination INFLUENZA (#1) [facility] Start: 12-03-2022 BP CONTROLLED (<130/80) BP CON TROLLED (<130/80) [facility] Start: 09-08-2022 End: 11-08-2022 Comprehensive metabolic 2000 panel - Serum or Plasma [facility] Work Phone: Comment on above: Expected: 09/08/2022 (Approximate), Expires: 11/08/2022 Start: 09-08-2022 End: 11-08-2022 Hemoglobin A1c in Blood [facility] Work Phone: Comment on above: Expected: 09/08/2022 , Expires: 11/08/2022 Start: 09-08-2022 End: 11-08-2022 PSA/PROSTSPECAG SCRN [facility] Work Phone: Comment on above: Expected: 09/08/2022 , Expires: 11/08/2022 Start: 09-03-2022 ANNUAL PCP TEAM ASSISTANT PROFESSOR OF THEATER SANTY DISEASE VISIT ANNUAL PCP TEAM CHRONIC DISEASE VISIT [facility] Start: 09-03-2022 BP CONTROLLED (<130/80) BP CON TROLLED (<130/80) [facility] Start: 08-27-2022 BP CONTROLLED (<130/80) BP CON TROLLED (<130/80) [facility] Start: 07-14-2022 COVID-19 VACCINE (6 - Pfizer series) COVID-19 VACCINE (6 - Pfizer series) [facility] Start: 05-31-2022 ADVANCE DIRECTIVE DISCUSSION ADVANCE DIRECTIVE DISCUSSION [facility] Start: 05-13-2022 End: 07-13-2022 Natriuretic peptide.B prohormone N-Terminal [Mass/volume] in Serum or Plasma [facility] Work Phone: Comment on above: Expected: 05/13/2022 , Expires: 07/13/2022 Start: 05-10-2022 End: 05-24-2022 Influenza virus A and B RNA and SARS-CoV-2 (COVID-19) N gene panel - Respiratory specimen by GRACE with probe detection COVID WITH FLUA+B, ROUTINE Microbiology Routine Viral illness Expected: 05/10/2022, Expires: 05/24/2022 [facility] Work Phone: Comment on above: Expected: 05/10/2022 , Expires: 05/24/2022 Start: 05-05-2022 ANNUAL PCP TEAM ASSISTANT PROFESSOR OF THEATER SANTY DISEASE VISIT ANNUAL PCP TEAM CHRONIC DISEASE VISIT [facility] Start: 04-10-2022 End: 06-10-2022 ALGN LEWISTON GRP [facility] Work Phone: Comment on above: Expected: 04/10/2022 , Expires: 06/10/2022 Start: 04-10-2022 End: 06-10-2022 IgE [Units/volume] in Serum or Plasma [facility] Work Phone: Comment on above: Expected: 04/10/2022 , Expires: 06/10/2022 Start: 02-23-2022 End: 04-25-2022 CBC W Auto Differential panel - Blood [facility] Work Phone: Comment on above: Expected: 02/23/2022 , Expires: 04/25/2022 Start: 02-23-2022 End: 04-25-2022 Comprehensive metabolic 2000 panel - Serum or Plasma [facility] Work Phone: Comment on above: Expected: 02/23/2022 , Expires: 04/25/2022 Start: 02-23-2022 End: 04-25-2022 Fibrin D-dimer FEU [Mass/volume] in Platelet poor plasma [facility] Work Phone: Comment on above: Expected: 02/23/2022 , Expires: 04/25/2022 Start: 02-15-2022 End: 03-01-2022 Influenza virus A and B RNA and SARS-CoV-2 (COVID-19) N gene panel - Respiratory specimen by GRACE with probe detection COVID WITH FLUA+B, ROUTINE Microbiology Routine At increased risk of exposure to COVID-19 virus Expected: 02/15/2022, Expires: 03/01/2022 [facility] Work Phone: Comment on above: Expected: 02/15/2022 , Expires: 03/01/2022 Start: 01-29-2022 Influenza vaccination INFLUENZA (#1) [facility] Start: 10-24-2021 COVID-19 VACCINE (5 - Booster for Pfizer series) COVID-19 VACCINE (5 - Booster for Pfizer series) [facility] Start: 09-03-2021 End: 11-03-2021 Hepatitis C virus Ab [Presence] in Serum HEP C AB IA W/CONF SCRN Lab Routine Encounter for hepatitis C screening test for low risk patient Expected: 09/03/2021 (Approximate), Expires: 11/03/2021 [facility] Work Phone: Comment on above: Expected: 09/03/2021 (Approximate), Expires: 11/03/2021 Start: 09-03-2021 End: 11-03-2021 Prostate specific Ag [Mass/volume] in Serum or Plasma PSA/PROSTSPECAG DIAG Lab Routine Benign non-nodular prostatic hyperplasia with lower urinary tract symptoms Expected: 09/03/2021 (Approximate), Expires: 11/03/2021 [facility] Work Phone: Comment on above: Expected: 09/03/2021 (Approximate), Expires: 11/03/2021 Start: 05-31-2021 ADVANCE DIRECTIVE DISCUSSION ADVANCE DIRECTIVE DISCUSSION [facility] Start: 2004 RSV Vaccine (1 - 1-d ose 60+ series) RSV Vaccine (1 - 1-dose 60+ series) [facility] Start: 01-13-1963 BP CONTROLLED (<130/80) BP CON TROLLED (<130/80) [facility] Start: 01-13-1963 HEPATITIS C SCREENING HEPATITIS C [facility] End: 12-11-2023 Echocardiography ECHO Cardiology Routine SOB (shortness of breath) 1 Occurrences starting 12/10/2022 until 12/11/2023 [facility] Work Phone: Comment on above: 1 Occurrences starti ng 12/10/2022 until 12/11/2023 Hepatitis C virus Ab [Presence] in Serum HEP C AB IA W/CONF SCRN Lab Routine Encounter for hepatitis C screening test for low risk patient 09/04/2021 10:32 AM EDT [facility] Work Phone: Influenza virus A an d B RNA and SARS-CoV-2 (COVID-19) N gene panel - Respiratory specimen by GRACE with probe detection COVID WITH FLUA+B, ROUTINE Microbiology Routine Acute cough Ordered: 02/06/2022 [facility] Work Phone: Comment on above: Ordered: 02/06/2022 End: 03-29-2023 LUNG VOLUMES LUNG VOLUMES PFT Routine SOB (shortness of breath) 1 Occurrences starting 02/27/2022 until 03/29/2023 [facility] Work Phone: Comment on above: 1 Occurrences starti ng 02/27/2022 until 03/29/2023 End: 03-29-2023 NITRIC OXIDE, EXHALED NITRIC OXIDE, EXHALED PFT Routine SOB (shortness of breath) 1 Occurrences starting 02/27/2022 until 03/29/2023 [facility] Work Phone: Comment on above: 1 Occurrences starti ng 02/27/2022 until 03/29/2023 [facility] Work Phone: Patient referral [facility] Work Phone: Prostate specific Ag [Mass/volume] in Serum or Plasma PSA/PROSTSPECAG DIAG Lab Routine Benign non-nodular prostatic hyperplasia with lower urinary tract symptoms 09/04/2021 10:32 AM EDT [facility] Work Phone: End: 06-09-2023 Radiologic exam chest 2 views XR CHEST 2V FRONTAL/LAT Radiology STAT Acute cough 1 Occurrences starting 05/10/2022 until 06/09/2023 [facility] Work Phone: Comment on above: 1 Occurrences starti ng 05/10/2022 until 06/09/2023 End: 06-12-2023 Radiologic exam chest 2 views XR CHEST 2V FRONTAL/LAT Radiology Routine SOB (shortness of breath) Acute cough 1 Occurrences starting 05/13/2022 until 06/12/2023 [facility] Work Phone: Comment on above: 1 Occurrences starti ng 05/13/2022 until 06/12/2023 End: 03-29-2023 SPIROMETRY WITH DILATOR IF OBSTRUCTED SPIROMETRY WITH DILATOR IF OBSTRUCTED PFT Routine SOB (shortness of breath) 1 Occurrences starting 02/27/2022 until 03/29/2023 [facility] Work Phone: Comment on above: 1 Occurrences starti ng 02/27/2022 until 03/29/2023 SPIROMETRY WITH DILA TOR IF OBSTRUCTED SPIROMETRY WITH DILATOR IF OBSTRUCTED PFT Routine SOB (shortness of breath) 03/11/2022 8:53 AM EDT [facility] Work Phone: End: 03-24-2025 XR Chest PA and Lateral XR CHEST 2V FRONTAL/LAT Radiology Routine Subacute cough 1 Occurrences starting 02/23/2024 until 03/24/2025 [facility] Work Phone: Comment on above: 1 Occurrences starti ng 02/23/2024 until 03/24/2025 XR Chest PA and Lateral XR CHEST 2V FRONTAL/LAT Radiology Routine Acute cough 02/23/2024 1:53 PM EDT [facility] Immunizations Immunization Date Immunization Notes Care Provider [facility] 02-10-2023 influenza (HD-IIV4) vaccine, age 65+ yr, high dose, quadrivalent, PF (FLUZONE HIGH-DOSE) Jd Solis MD Work Phone: [facility] 02-10-2023 respiratory syncytia l virus (RSV) vaccine, adjuvanted (AREXVY) Jd Solis MD Work Phone: [facility] 02-10-2023 influenza virus vacc ine, unspecified formulation Fer PORTER Work Phone: [facility] 03-13-2022 COVID-19 booster vaccine, age 12+ yr, bivalent ([employer]) Genie Bustamante MD Work Phone: [facility] 03-13-2022 influenza (HD-IIV4) vaccine, age 65+ yr, high dose, quadrivalent, PF (FLUZONE HIGH-DOSE) Jd Solis MD Work Phone: [facility] 03-13-2022 influenza, high dose seasonal, preservative-free Genie Bustamante MD Work Phone: [facility] 02-18-2021 influenza, high-dose , quadrivalent vaccine (FLUZONE HIGH DOSE QUADRIVALENT) Berkley Ildefonsoguru BENDING ROLL OPERATOR.RESIDUE FURNACE OPERATOR Work Phone: [facility] 08-16-2020 COVID-19 vaccine, ag e 12+ yr (PFIZER-BIONTECH - PURPLE TOP) Berkley Rajguru BENDING ROLL OPERATOR.RESIDUE FURNACE OPERATOR Work Phone: [facility] Work Phone: 07-26-2020 COVID-19 vaccine, ag e 12+ yr (PFIZER-BIONTECH - PURPLE TOP) Berkley Rajguru BENDING ROLL OPERATOR.RESIDUE FURNACE OPERATOR Work Phone: [facility] Work Phone: 01-22-2020 influenza, high dose seasonal, preservative-free Berkley Rajguru BENDING ROLL OPERATOR.RESIDUE FURNACE OPERATOR Work Phone: [facility] 02-28-2019 influenza, high dose seasonal, preservative-free Berkley Rajguru BENDING ROLL OPERATOR.RESIDUE FURNACE OPERATOR Work Phone: [facility] 12-29-2018 zoster vaccine recombinant Berkley Rajguru BENDING ROLL OPERATOR.RESIDUE FURNACE OPERATOR Work Phone: [facility] 10-28-2018 zoster vaccine recombinant Berkley Rajguru BENDING ROLL OPERATOR.RESIDUE FURNACE OPERATOR Work Phone: [facility] 03-02-2018 influenza, high dose seasonal, preservative-free Berkley Rajguru BENDING ROLL OPERATOR.RESIDUE FURNACE OPERATOR Work Phone: [facility] 02-09-2017 influenza, high dose seasonal, preservative-free Berkley Rajguru BENDING ROLL OPERATOR.RESIDUE FURNACE OPERATOR Work Phone: [facility] 10-01-2016 tetanus and diphther ia toxoids, adsorbed, preservative free, for adult use (5 Lf of tetanus toxoid and 2 Lf of diphtheria toxoid) Berkley Rajguru BENDING ROLL OPERATOR.RESIDUE FURNACE OPERATOR Work Phone: [facility] 03-17-2016 influenza, high dose seasonal, preservative-free Berkley Rajguru BENDING ROLL OPERATOR.RESIDUE FURNACE OPERATOR Work Phone: [facility] 06-25-2015 pneumococcal polysaccharide vaccine, 23 valent Berkley Rajguru BENDING ROLL OPERATOR.RESIDUE FURNACE OPERATOR Work Phone: [facility] 06-12-2014 pneumococcal conjuga te vaccine, 13 valent Berkley Rajguru BENDING ROLL OPERATOR.RESIDUE FURNACE OPERATOR Work Phone: [facility] 02-27-2014 influenza, seasonal, injectable Berkley Rajguru BENDING ROLL OPERATOR.RESIDUE FURNACE OPERATOR Work Phone: [facility] 04-20-2013 pneumococcal polysaccharide vaccine, 23 valent Berkley Rajguru BENDING ROLL OPERATOR.[facility] Work Phone: [facility] 04-20-2013 pneumococcal vaccine , unspecified formulation [facility] 02-28-2013 Influenza virus vaccine [facility] 03-14-2010 influenza virus vacc ine, unspecified formulation Berkley Rajguru BENDING ROLL OPERATOR.[facility] Work Phone: [facility] Work Phone: 04-03-2008 influenza virus vacc ine, unspecified formulation Berkley Rajguru BENDING ROLL OPERATOR.[facility] Work Phone: [facility] Work Phone: 04-03-2008 pneumococcal polysaccharide vaccine, 23 valent Berkley Rajguru BENDING ROLL OPERATOR.[facility] Work Phone: [facility] Work Phone: 08-05-2006 tetanus toxoid, redu gentry diphtheria toxoid, and acellular pertussis vaccine, adsorbed Berkley Rajmarlenaru BENDING ROLL OPERATOR.[facility] Work Phone: [facility] Work Phone: 11-02-1996 diphtheria and tetan us toxoids, adsorbed for pediatric use Berkley Rajguru BENDING ROLL OPERATOR.[facility] Work Phone: [facility] Work Phone: Payers Date Payer Category Payer Self-pay [id number] 2021 Medicare AETNA MEDICARE A ETNA MEDICARE PPO [id number] 2021-Present [phone] [address] [place] [address] PPO [id number] 2021 Medicare AETNA MEDICARE A ETNA MEDICARE PPO [id number] 2021-Present [phone] [address] [place] [address] PPO [id number] 2012 Private Health Insurance [id number] Unknown [id number] [id number] 62 Unknown [id number] 2.16.840.1.600672.3.579.2.4 62 Unknown [id number] 2.16.840.1.512246.3.579.2.4 62 Unknown [id number] 2.16.840.1.783981.3.579.2.4 62 Unknown [id number] 2.16.840.1.507704.3.579.2.4 62 Unknown [id number] 2.16.840.1.947558.3.579.2.4 62 Unknown [id number] 2.16.840.1.317397.3.579.2.4 62 Unknown [id number] 2.16.840.1.938870.3.579.2.4 62 Unknown [id number] 2.16.840.1.969458.3.579.2.4 62 Unknown [id number] 2.16.840.1.732587.3.579.2.4 62 Unknown [id number] 2.16.840.1.386817.3.579.2.4 62 Unknown [id number] 2.16.840.1.947596.3.579.2.4 62 Unknown [id number] 2.16.840.1.129382.3.579.2.4 62 Unknown [id number] 2.16.840.1.126829.3.579.2.4 62 Unknown [id number] 2.16.840.1.621746.3.579.2.4 62 Unknown [id number] 2.16.840.1.719198.3.579.2.4 62 Unknown [id number] 2.16.840.1.322979.3.579.2.4 62 Unknown [id number] 2.16.840.1.909761.3.579.2.4 62 Unknown [id number] 2.16.840.1.146653.3.579.2.4 62 Unknown [id number] 2.16.840.1.384467.3.579.2.4 62 Unknown [id number] 2.16.840.1.432792.3.579.2.4 62 Unknown [id number] 2.16.840.1.488542.3.579.2.4 62 Unknown [id number] 2.16.840.1.104053.3.579.2.4 62 Unknown [id number] 2.16.840.1.957467.3.579.2.4 62 Social History Date Type Detail Facility Start: 02-06-2022 Tobacco smoking status DEIS Never smoked tobacco [facility] Work Phone: Start: 08-27-2021 End: 05-26-2024 Alcohol intake Current non-drinker of alcohol (finding) [facility] Start: 05-29-2020 End: 05-12-2022 History SDOH Alcohol Frequency 1 [facility] Start: 05-29-2020 History SDOH Alcohol Std Drinks 98 [facility] Start: 05-29-2020 End: 05-12-2022 History SDOH Social Connections Phone 5 [facility] Start: 05-29-2020 End: 05-12-2022 History SDOH Social Connections Sikh 2 [facility] Start: 05-29-2020 End: 05-12-2022 History SDOH Social Connections Living 3 [facility] Start: 05-29-2020 History SDOH Physical Activity DPW 6 [facility] Start: 05-29-2020 Education 18 [facility] Start: 05-11-2014 End: 02-06-2022 Tobacco Comment Non smoking childhood home. [facility] Start: 1945 Sex Assigned At Male [facility] Start: 08-17-2021 End: 05-03-2022 Exposure to SARS-CoV-2 (event) Not sure [facility] Start: 02-06-2022 Tobacco use and exposure Smokeless tobacco non-user [facility] Start: 05-12-2022 History SDOH Alcohol Std Drinks 0 [facility] Start: 05-11-2022 End: 12-10-2022 History of Social function [facility] Start: 05-11-2022 End: 12-10-2022 Social connection and isolation panel [facility] Do you belong to any clubs or organizations such as sikhism groups, unions, fraternal or athletic groups, or school groups? Yes [facility] Are you now , , , , never or living with a partner? [facility] How often to you hav e a drink containing alcohol? Never [facility] How many standard dr inks containing alcohol do you have on a typical day? Patient does not drink [facility] Do you feel stress - tense, restless, nervous, or anxious, or unable to sleep at night because your mind is troubled all the time - these days [OSQ] Only a little [facility] (I/We) worried wheth er (my/our) food would run out before (I/we) got money to buy more. Never true [facility] In the past 12 month s, was there a time when you were not able to pay the mortgage or rent on time? No [facility] Start: 05-12-2019 Gender identity Identifies as male gender (finding) [facility] Start: 01-23-2020 Sexual orientation Heterosexual (finding) [facility] Start: 06-14-2021 End: 08-15-2023 Tobacco smoking status NHIS Unknown if ever smoked [facility] Start: 04-19-2013 None [facility] Start: 04-19-2013 Spouse/ Significant Other [facility] Start: 04-19-2013 Non-smoker [facility] Do you feel stress - tense, restless, nervous, or anxious, or unable to sleep at night because your mind is troubled all the time - these days [OSQ] Very much [facility] Start: 05-29-2024 Tobacco smoking status NHIS Ex-smoker (finding) [facility] Start: 08-23-2024 End: 09-25-2024 Sex Male (finding) [facility] Mental Status Date Assessment Result Facility 08-15-2023 Cognitive function Level Of Cons ciousness Awake;Alert;Appropriate;Follow s Commands [facility] Work Phone: Clinical Notes 02-12-2016 to 05-26-2024 Genie Bustamante MD - 05/26/2024 2:15 PM EST Note Date & Type Note Facility 05-26-2024 History of Present illness Narrative Images from the original note were not included. . [facility] Note Patient name: Valentina Cabrera PCP: Tre [...] of breath. Patient was actually hospitalized at [facility], hypoxemic, received remdesivir and dexamethasone and [...] chest tightness. 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 Genie Bustamante MD [facility] documented in this encounter [facility] 05-26-2024 Note HNO ID: [id number] Author: GENIE BUSTAMANTE MD Service: ? Author Type: Physician Type: Progress Notes Filed: 05/26/2024 17:25 Note Text: . [facility] Note Patient name: Valentina Cabrera PCP: Tre [...] of breath. Patient was actually hospitalized at [facility], hypoxemic, received remdesivir and dexamethasone andactually [...] chest tightness. 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 [facility] 05-17-2024 Evaluation note Diagnosis Onset Date Resolution Nonhealing nonsurgical wound acute May 17, 2 024 9:00am Skin tear of forearm without complication acute May 172023 9:00am Wound, open, arm, forearm acute May 17, 2 024 9:00am [facility] Work Phone: [phone]) 964-438710-10-2024 Telephone encounter Note* Telephone Encounter - Eunice Alvarado MA - 03/09/2024 4:26 PM EDT PFTs dated 03/06/2024 from [facility] scanned into [facility] for review. Eunice Alvarado MA View External Procedures - Pulmonary [ID [id number]] [facility]10-10-2024 Miscellaneous Notes* Telephone Encounter - Eunice Alvarado MA - 03/09/2024 4:26 PM EDT PFTs dated 03/06/2024 from [facility] scanned into [facility] for review. Eunice Alvarado MA View External Procedures - Pulmonary [ID [id number]] documented [facility] History of Present illness Narrative* Ashley Samayoa, [...] PATIENT PRESENTS WITH AN IMPLANTABLE OR ATTACHED LEAD PROJECT MANAGER: No RADIOLOGY DEPARTMENT: General X-ray: Exam(s) Completed: Chest X-Ray PERIPHERAL IV DATA: Not applicable SIGNED BY: GABRIELLA Flores) February 23, 2024 1:47 PM documented in this encounter[facility]24 NoteHNO ID: [id number] Author: ASHLEY SAMAYOA RT (R) Service: Radiology [...] PATIENT PRESENTS WITH AN IMPLANTABLE OR ATTACHED LEAD PROJECT MANAGER: No RADIOLOGY DEPARTMENT: General X-ray: Exam(s) Completed: Chest X-Ray PERIPHERAL IV DATA: Not applicable SIGNED BY: GABRIELLA Flores) February 23, 2024 1:47 [facility]09-25-2024 History of Present illness Narrative* Becky Fierro [...] albuterol. Patient was rec ently seen in [facility] for URI and Covid test was [...] other lower urinary tract symptoms (LUTS) 07/05/2007 [facility] (current) use of inhaled steroids Lumbar discogenic [...] 08/20/2023 COVID-19 vaccine, age 12+ yr, bivalent (NatureWorks-BIONTECH) 03/13/2022 diphtheria tetanus (DT) vaccine, pediatric 11/02/1996 [...] (Final result) Narrative: [facility] [address] [place] [address] Test Date: 2023-04-19 Pat Name: VALENTINA CABRERA Department: Room: Gender: Male Package Crimper: : 1945 Requested By: Order Number: [id number] Reading MD: Genie Bustamante MD Interpretive Statements ATS/ERS acceptability and repeatability standards for spirometry met. IMPRESSION: Spirometry is normal. Small airways obstruction noted. Maximum inspiratory and expiratory pressures are normal. Electronically Signed On 04-19-2023 12:36:10 EST by Genie Bustamante MD ID: [id number] Name: VALENTINA CABRERA Race: White Ht: 67.17 [...] 5.40 FEF50/FIF50 0.38 90-100 FIVC (L) 4.17 SDP93-25 (L/sec) 1.25 0.73 1.92 3.66 65 Time [...] indeterminate fractures, likely representing old rib fractures. Stator Tester: TASHI Transcribe Date/Time: Aug 19 2022 9:33A [...] necessary. Becky Fierro PA-C documented in this encounter[facility]24 NoteHNO ID: [id number] Author: BECKY FIERRO PA-C Service: ? Author Type: Physician Cst Type: Progress Notes Filed: 02/23/2024 14:17 Note [...] needed albuterol. 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 Author Type: Physician Cst Type: Progress Notes Filed: 01/29/2024 12:49 Note Text: This note was created using CromoUp. Subjective Valentina Cabrera is a 79 year old male. HPI 79-year-old male presents for cough, congestion x 1 day. Patient states yesterday he started getting cough, sore throat, nasal congestion and chest congestion. He is was recently sick with similar symptoms as well as his grandson. Patient states he has a low-grade fever yesterday. No fever today. He has not taken anything [id number] for symptoms. He does have history of [...] lower urinary tract symptoms (LUTS) No date: [facility] (current) use of inhaled steroids 06/05/2010: Lumbar [...] for treatment. - S (more content not included)...[facility]08-31-2024 History of Present illness Narrative* Fer Ruelas PA - 01/29/2024 12:47 PM EDT This note was created using PingTankriter. Subjective Valentina Cabrera is a 79 year old male. HPI 79-year-old male presents for cough, congestion x 1 day. Patient states yesterday he started getting cough, sore throat, nasal congestion and chest congestion. He is was recently sick with similar symptoms as well as his grandson. Patient states he has a low-grade fever yesterday. No fevertoday. He has not taken anything [id number] for symptoms. He does have history of [...] lower urinary tract symptoms (LUTS) No date: [facility] (current) use of inhaled steroids 06/05/2010: Lumbar [...] ER evaluation. CHARLOTTE Henry documented in this encounter[facility] History of Present illness Narrative* Genie Bustamante MD - 11/09/2023 10:30 AM EDT Images from the original note were not included. . 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 Author Type: Physician Type: Progress Notes Filed: 11/09/2023 11:28 Note Text: . 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 He has some of the Dulera 100 mcg/5 left but that is not what he was taking most recently and is asking if that can be doubled up as he was most recently taking 200 mcg/5. Pleasereview and advise. Deirdre Brand LPN documented in this encounterSelect [facility]12-[facility]23 Miscellaneous Notes* Telephone Encounter - Mayur Kimble APRN.CNP - 05/03/2023 12:05 PM EST The following approved medication requests have been transmitted electronically. Requested Prescriptions Pending Prescriptions Disp Refills lisinopril (ZESTRIL) 5 mg tablet [Pharmacy Med Name: LISINOPRIL TABS 5MG] 90 tablet 3 Sig: take 1 tablet daily Mayur Kimble APRN.LEAH documented in this encounterSelect [facility] History of Present illness Narrative* Tawana Moore RPFT - 04/19/2023 11:19 AM EST PULM FUNCTION SMARTBLOCK: Provider: Becky Fierro PA-C Assisting Tech: Tawana Moore RPFT MIP/MEP: 1 documented in this encounterSelect [facility]10-10-[facility]23 History of Present illness Narrative* Jd Solis [...] other lower urinary tract symptoms (LUTS) 07/05/2007 [facility] (current) use of inhaled steroids Lumbar discogenic [...] Avoidance of triggers recommended - Continue with Machinist 2Nd Shift 3. Benign non-nodular prostatic hyperplasia with lower [...] Past Histories independently gathered by the clinical administrative support specialist and the remaining scribed note accurately describes [...] AM. Marilin Schaffer Ma documented in this encounterSelect [facility]10-02-[facility]23 History of Present illness Narrative* Lulú Goncalves, [...] Discontinued PROCEDURE TYPE: NM Stress: 12.3 mCi Ea85t-Uonjapa was administered IV for Rest Imaging at 07:12 by Lulú Goncalves. 33.4 mCi Yo75g-Umswebr was administered IV for Stress Imaging at 08:35 by Lulú Goncalves. ADMINISTRATION TIME: PATIENT DISCHARGED TO: Ambulatory patient, left [place] department area. A Diagnostic radioactive procedure has taken place, with no further precautions necessary other than routine body substance precautions. More information regarding radiation safety can be found usingthis link: 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 Becky Fierro PA-C documented in this encounterSelect [facility]07-14-2023 Miscellaneous Notes* Telephone Encounter - Bessy Barron [...] patient. Blanca Bustamante LPN documented in this encounterSelect [facility]07-13-2023 Procedure note* Tawana Moore RPFT - 12/10/2022 [...] 2022 TIME: 9:14 AM documented in this encounterSelect [facility]07-13-2023 History of Present illness Narrative* Tawana Moore RPFT - 12/10/2022 9:13 AM EDT PULM FUNCTION SMARTBLOCK: Provider: Becky Fierro PA-C Assisting Tech: Tawana Moore RPFT Exhaled Nitric Oxide: 1 documented in this encounterSelect [facility]07-13-2023 History of Present illness Narrative* Becky Fierro [...] other lower urinary tract symptoms (LUTS) 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 Becky Fierro PA-C documented in this encounterSelect [facility]07-10-2023 Miscellaneous Notes* Telephone Encounter - Bessy Barron LPN - 12/07/2022 9:17 AM EDT Spoke with patient by phone. [facility] to deliver Dulera in 3-5 days. He has 3 days of medication available currently. Advised patient to contact the office should he need a temporary supply of Dulera sent locally. Bessy Barron LPN documented in this encounterSelect [facility]04-21-2023 Miscellaneous Notes* Telephone Encounter - Bessy Barron LPN - 09/18/2022 1:15 PM EDT Patient phones requesting refills as follows: Requested Prescriptions Pending Prescriptions Disp Refills albuterol HFA (PROVENTIL HFA, VENTOLIN HFA) 90 mcg/actuation inhaler 3 Each 3 Sig: Inhale 2 Puffs as instructed every 4 hours as needed for wheezing/shortness of breath. Please review and advise. Bessy Barron LPN documented in this encounterSelect [facility]04-11-2023 History of Present illness Narrative* Jd Solis MD - 09/08/2022 9:20 AM EDT Chief Complaint Patient presents with: 6 Month Exam HPI Valentina Cabrera is a 77 year old male who presents here today for 6 month follow up. He has an advanced directive, just recently updated it with his Instructional Specialist. Will bring updated copy for our records. [...] other lower urinary tract symptoms (LUTS) 07/05/2007 [facility] (current) use of inhaled steroids Lumbar discogenic [...] Past Histories independently gathered by the clinical administrative support specialist and the remaining scribed note accurately describes [...] AM. Natalie Youngblood Ma documented [facility] Miscellaneous Notes* Telephone Encounter - Kamala Saunders Ma - 08/24/2022 9:31 AM EDT Patient phones requesting refills as follows: He would like a 3 month supply sent to his mail orderpharmacy. Requested Prescriptions Pending Prescriptions Disp Refills mometasone-formoterol (DULERA) 100-5 mcg/actuation inhaler 1 Each 5 Sig: Inhale 2 Puffs as instructed twice daily. Please review and advise. 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 . [facility] Note Patient name: Valentina Cabrera PCP: Jd Solis MD CC: Follow-up asthma HPI: Valentina Cabrera 77 year old male never smoker with PMH significant for GERD, BPH, HTN, allergies previously treated with IT, depression, eventration of diaphragm, and chronic cough. 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 documented in this encounterSelect [facility] [place] [facility]12-14-2022 History of Present illness Narrative* Betty Barraza [...] seen several times in family medicine and [facility] care for cold/URI symptoms. Was seen 05/10/2022, [...] other lower urinary tract symptoms (LUTS) 07/05/2007 [facility] (current) use of inhaled steroids Lumbar discogenic [...] R05.1 - May use Tessalon Perles or wuob-zux-lfnafyj cold and cough medication as needed for [...] APRN.LEAH This note was partially generated using CloudCover voice recognition system. Note was reviewed for accuracy. There may be minor misspellings or grammar miscues with CloudCover voice recognition. documented in this encounterSelect [facility]12-11-2022 Instructions* Patient Instructions* Moi Plummer APRN.CNP - [...] or concerning to you. 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 This note was generated using CloudCover software. It may contain errors in wording, punctuation, or spelling. Moi Plummer APRN.LEAH documented in this encounterSelect [facility]12-04-2022 History of Present illness Narrative* Camila Comer [...] other lower urinary tract symptoms (LUTS) 07/05/2007 [facility] (current) use of inhaled steroids Lumbar discogenic [...] plan. Camila Comer APRN.CNP documented in this encounterSelect [facility]12-01-2022 Miscellaneous Notes* Telephone Encounter - Bere Goodman [...] supportive care at home, may use any roox-bfr-obypoyx coldand cough medications as needed for symptom management. As discussed during office visit if congestion and sinus drainage is getting worse I can send in anantibiotic. Please let me know how he is doing. Thank you. 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 Will check labs and consider adding Singulair to regimen. - IGE BLD - EOSINOPHIL ABS COUNT - [facility] 4. 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 documented in this encounterSelect [facility] [place] [facility]10-20-2022 Miscellaneous Notes* Telephone Encounter - Jd Solis [...] advise. Bere Goodman LPN documented in this encounterSelect [facility] [place] [facility]10-13-2022 Miscellaneous Notes* Telephone Encounter - Bessy Barron LPN - 03/12/2022 3:12 PM EDT See separate phone encounter. Bessy Barron LPN documented in this encounterSelect [facility]10-12-2022 History of Present illness Narrative* Jd Solis [...] other lower urinary tract symptoms (LUTS) 07/05/2007 [facility] (current) use of inhaled steroids Lumbar discogenic [...] Lymph (Normal + Reac* 02/23/2022 6.15 (A) [place]% 02/23/2022 5.0 Abs [place] 02/23/2022 0.70 Eosin% 02/23/2022 1.0 Abs Eosin 02/23/2022 0.14 Baso% 02/23/2022 0.0 Abs Baso 02/23/2022 0.00 Realym% 02/23/2022 1.0 Adrian % 02/23/2022 2.0 Myelo % 02/23/2022 1.0 [...] Lymph% 01/26/2022 35.8 Abs Lymph 01/26/2022 2.61 [place]% 01/26/2022 7.0 Abs [place] 01/26/2022 0.51 Eosin% 01/26/2022 0.5 Abs Eosin [...] Past Histories independently gathered by the clinical administrative support specialist and the remaining scribed note accurately describes [...] PM. Natalie Youngblood Ma documented in this encounterSelect [facility]10-12-2022 Procedure note* MAICOL Velazco - 03/11/2022 9:12 [...] 2022 TIME: 9:13 AM documented in this encounterSelect [facility]10-12-2022 History of Present illness Narrative* MAICOL Velazco - 03/11/2022 9:11 AM EDT PULM FUNCTION SMARTBLOCK: Provider: Genie Bustamante MD Assisting Tech: MAICOL Velazco Spirometry: 1 LV - Box: 1 Exhaled Nitric Oxide: 1 documented in this encounterSelect [facility]09-30-2022 History of Present illness Narrative* Genie Bustamante MD - 02/27/2022 1:30 PM EDT Images from the original note were not included. . Respiratory [place] Note Patient name: Valentina Cabrera PCP: Jd [...] steroids. Chest x-ray without any infiltrates. DATA: [facility] 2014: Negative for bronchial hyperactivity. FEV1 8% [...] 1.00 - 4.00 k/uL 6.15 High 2.61 [place]% % 5.0 7.0 Abs [place] <0.87 k/uL 0.70 0.51 Eosin% % 1.0 0.5 Abs Eosin <0.46 k/uL 0.14 0.04 Baso% % 0.0 0.3 Abs Baso <0.11 k/uL 0.00 <0.03 Realym% % 1.0 [place] % % 2.0 Myelo % % 1.0 [...] other lower urinary tract symptoms (LUTS) 07/05/2007 [facility] (current) use of inhaled steroids Lumbar discogenic [...] post COVID syndrome Genie Bustamante MD Respiratory [place] documented in this encounterSelect [facility]09-28-2022 Miscellaneous Notes* Telephone Encounter - Bere Goodman [...] you. Betty Barraza APRN.LEAH documented in this encounterSelect [facility]09-26-2022 History of Present illness Narrative* Ashley Samayoa [...] 23, 2022 12:00 PM documented in this encounterSelect [facility]09-26-2022 Instructions* Patient Instructions* Betty Barraza APRN.CNP - 02/23/2022 11:46 AM EDT Get lab work & chest Xray done today Start doxycycline twice a day, take with food Continue to take all medication as prescribed Red flag symptoms, go to ER Follow up pending test results or sooner as needed documented in this encounterSelect [facility]09-26-2022 History of Present illness Narrative* Betty Barraza [...] other lower urinary tract symptoms (LUTS) 07/05/2007 [facility] (current) use of inhaled steroids Lumbar discogenic [...] APRN.CNP This note was partially generated using CloudCover voice recognition system. Note was reviewed for accuracy. There may be minor misspellings or grammar miscues with CloudCover voice recognition. documented in this encounterSelect [facility]09-19-2022 Miscellaneous Notes* Telephone Encounter - Martha Mccormick - 02/16/2022 9:39 AM EDT [facility] Martha Mccormick * Telephone Encounter - Camila Comer APRN.CNP - 02/16/2022 7:10 AM EDT Negative for flu and covid documented in this encounterSelect [facility]09-18-2022 History of Present illness Narrative* Camila Comer [...] other lower urinary tract symptoms (LUTS) 07/05/2007 [facility] (current) use of inhaled steroids Lumbar discogenic [...] plan. Camila Comer APRN.CNP documented in this encounterSelect [facility]09-09-2022 Instructions* Patient Instructions* Betty Barraza APRN.CNP - 02/06/2022 9:27 AM EDT 1.) Flu/COVID test should be back by tomorrow. 2.) May use gkaa-rbe-jyewvjx cold and cough medications as needed for [...] 6.) Follow-up as needed. 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 Note was reviewed for accuracy. There may be minor misspellings or grammar miscues with CloudCover voice recognition. documented in this encounterSelect [facility]07-06-2022 History of Present illness Narrative* Berkley Roque APRN.RESIDUE FURNACE OPERATOR - 12/03/2021 10:29 AM EDT Images from [...] which included preparing to see the patient, qcfk-gr-npuo patient care, completing clinical documentation, and counseling and educating the patient/family/caregiver, ordering medications/labs and communicating with other healthcare providers. Berkley Roque APRN.CNP December 03, 2021 10:30 AM This note was partially generated using CloudCover voice recognition system. Note was reviewed for accuracy. There may be minor misspellings or grammar miscues with [employer] voice recognition. 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 Marilin Schaffer Ma documented in this encounterSelect [facility]03-30-2022 Instructions* Patient Instructions* Berkley Roque APRN.CNP - [...] - Call the National Suicide Hotline at 1-273-QEFJXJY ( ) or 2-843-801-TALK (6880) - Text 4HOPE to 395418 Medication Update: 1. Nortriptyline 50 mg take 1 capsule twice daily with food and peanut butter Next appointment: --Schedule in 3 months or sooner if needed -- You may call the department appointment line at [phone] to schedule your appointment. -- Please call my nurse Kelly at [phone] or send me a message in [employer] with any questions or concerns between appointments. documented in this encounterSelect [facility]03-30-2022 History of Present illness Narrative* Berkley Roque [...] which included preparing to see the patient, [id number] patient care, completing clinical documentation, and counseling and educating the patient/family/caregiver, ordering medications/labwork. 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 Neoplasm of uncertain behavior of skin 9 06/12/2014 Shortness of breath 09/01/2006 06/12/2014 Abdominal pain, generalized 03/19/200605/31 documented as of this encounter (statuses as of 08/27/2021) [facility] History of Past illness Narrative* Problem Noted Date Resolved Date Shortness of breath 02/12/2016 06/29/2016 Achilles tendinitis 10/04/2012 04/17/2015 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 Neoplasm of uncertain behavior of skin 9 06/12/2014 Shortness of breath 09/01/2006 06/12/2014 Abdominal pain, generalized 03/19/200605/31 documented as of this encounter (statuses as of 09/04/2021) [facility] History of Past illness Narrative* Problem Noted Date Resolved Date Shortness of breath 02/12/2016 06/29/2016 Achilles tendinitis 10/04/2012 04/17/2015 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 Neoplasm of uncertain behavior of skin 9 06/12/2014 Shortness of breath 09/01/2006 06/12/2014 Abdominal pain, generalized 03/19/200605/31 documented as of this encounter (statuses as of 12/03/2021) [facility] History of Past illness Narrative* Problem Noted Date Resolved Date Shortness of breath 02/12/2016 06/29/2016 Achilles tendinitis 10/04/2012 04/17/2015 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 Neoplasm of uncertain behavior of skin 9 06/12/2014 Shortness of breath 09/01/2006 06/12/2014 Abdominal pain, generalized 03/19/200605/31 documented as of this encounter (statuses as of 02/06/2022) [facility] History of Past illness Narrative* Problem Noted Date Resolved Date Shortness of breath 02/12/2016 06/29/2016 Achilles tendinitis 10/04/2012 04/17/2015 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 Neoplasm of uncertain behavior of skin 9 06/12/2014 Shortness of breath 09/01/2006 06/12/2014 Abdominal pain, generalized 03/19/200605/31 documented as of this encounter (statuses as of 02/15/2022) [facility] of Past illness Narrative* Problem Noted Date Resolved Date Shortness of breath 02/12/2016 06/29/2016 Achilles tendinitis 10/04/2012 04/17/2015 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 Neoplasm of uncertain behavior of skin 9 06/12/2014 Shortness of breath 09/01/2006 06/12/2014 Abdominal pain, generalized 03/19/200605/31 documented as of this encounter (statuses as of 02/16/2022) [facility] of Past illness Narrative* Problem Noted Date Resolved Date Shortness of breath 02/12/2016 06/29/2016 Achilles tendinitis 10/04/2012 04/17/2015 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 Neoplasm of uncertain behavior of skin 9 06/12/2014 Shortness of breath 09/01/2006 06/12/2014 Abdominal pain, generalized 03/19/200605/31 documented as of this encounter (statuses as of 02/23/2022) [facility] of Past illness Narrative* Problem Noted Date Resolved Date Shortness of breath 02/12/2016 06/29/2016 Achilles tendinitis 10/04/2012 04/17/2015 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 Neoplasm of uncertain behavior of skin 9 06/12/2014 Shortness of breath 09/01/2006 06/12/2014 Abdominal pain, generalized 03/19/200605/31 documented as of this encounter (statuses as of 02/25/2022) [facility] of Past illness Narrative* Problem Noted Date Resolved Date Shortness of breath 02/12/2016 06/29/2016 Achilles tendinitis 10/04/2012 04/17/2015 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 Neoplasm of uncertain behavior of skin 9 06/12/2014 Shortness of breath 09/01/2006 06/12/2014 Abdominal pain, generalized 03/19/200605/31 documented as of this encounter (statuses as of 02/27/2022) [facility] of Past illness Narrative* Problem Noted Date Resolved Date Shortness of breath 02/12/2016 06/29/2016 Achilles tendinitis 10/04/2012 04/17/2015 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 Neoplasm of uncertain behavior of skin 9 06/12/2014 Shortness of breath 09/01/2006 06/12/2014 Abdominal pain, generalized 03/19/200605/31 documented as of this encounter (statuses as of 03/11/2022) [facility] of Past illness Narrative* Problem Noted Date Resolved Date Shortness of breath 02/12/2016 06/29/2016 Achilles tendinitis 10/04/2012 04/17/2015 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 Neoplasm of uncertain behavior of skin 9 06/12/2014 Shortness of breath 09/01/2006 06/12/2014 Abdominal pain, generalized 03/19/200605/31 documented as of this encounter (statuses as of 03/12/2022) [facility] of [facility] illness Narrative* Problem Noted Date Resolved Date Shortness of breath 02/12/2016 06/29/2016 Achilles tendinitis 10/04/2012 04/17/2015 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 Neoplasm of uncertain behavior of skin 9 06/12/2014 Shortness of breath 09/01/2006 06/12/2014 Abdominal pain, generalized 03/19/200605/31 documented as of this encounter (statuses as of 03/12/2022) [facility] of [facility] Narrative* Problem Noted Date Resolved Date Shortness of breath 02/12/2016 06/29/2016 Achilles tendinitis 10/04/2012 04/17/2015 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 Neoplasm of uncertain behavior of skin 9 06/12/2014 Shortness of breath 09/01/2006 06/12/2014 Abdominal pain, generalized 03/19/200605/31 documented as of this encounter (statuses as of 03/16/2022) [facility] of [facility] Narrative* Problem Noted Date Resolved Date Shortness of breath 02/12/2016 06/29/2016 Achilles tendinitis 10/04/2012 04/17/2015 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 Neoplasm of uncertain behavior of skin 9 06/12/2014 Shortness of breath 09/01/2006 06/12/2014 Abdominal pain, generalized 03/19/200605/31 documented as of this encounter (statuses as of 03/17/2022) [facility] of [facility] Narrative* Problem Noted Date Resolved Date Shortness of breath 02/12/2016 06/29/2016 Achilles tendinitis 10/04/2012 04/17/2015 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 Neoplasm of uncertain behavior of skin 9 06/12/2014 Shortness of breath 09/01/2006 06/12/2014 Abdominal pain, generalized 03/19/200605/31 documented as of this encounter (statuses as of 03/19/2022) [facility] of [facility] Narrative* Problem Noted Date Resolved Date Shortness of breath 02/12/2016 06/29/2016 Achilles tendinitis 10/04/2012 04/17/2015 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 Neoplasm of uncertain behavior of skin 9 06/12/2014 Shortness of breath 09/01/2006 06/12/2014 Abdominal pain, generalized 03/19/200605/31 documented as of this encounter (statuses as of 03/20/2022) [facility] of [facility] Narrative* Problem Noted Date Resolved Date Shortness of breath 02/12/2016 06/29/2016 Achilles tendinitis 10/04/2012 04/17/2015 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 Neoplasm of uncertain behavior of skin 9 06/12/2014 Shortness of breath 09/01/2006 06/12/2014 Abdominal pain, generalized 03/19/200605/31 documented as of this encounter (statuses as of 04/01/2022) [facility] Narrative* Problem Noted Date Resolved Date Shortness of breath 02/12/2016 06/29/2016 Achilles tendinitis 10/04/2012 04/17/2015 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 Neoplasm of uncertain behavior of skin 9 06/12/2014 Shortness of breath 09/01/2006 06/12/2014 Abdominal pain, generalized 03/19/200605/31 documented as of this encounter (statuses as of 04/10/2022) [facility] Narrative* Problem Noted Date Resolved Date Shortness of breath 02/12/2016 06/29/2016 Achilles tendinitis 10/04/2012 04/17/2015 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 Neoplasm of uncertain behavior of skin 9 06/12/2014 Shortness of breath 09/01/2006 06/12/2014 Abdominal pain, generalized 03/19/200605/31 documented as of this encounter (statuses as of 04/30/2022) [facility] Narrative* Problem Noted Date Resolved Date Shortness of breath 02/12/2016 06/29/2016 Achilles tendinitis 10/04/2012 04/17/2015 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 Neoplasm of uncertain behavior of skin 200 9 06/12/2014 Shortness of breath 09/01/2006 06/12/2014 Abdominal pain, generalized 03/19/200605/31 documented as of this encounter (statuses as of 05/03/2022) [facility] Narrative* Problem Noted Date Resolved Date Shortness of breath 02/12/2016 06/29/2016 Achilles tendinitis 10/04/2012 04/17/2015 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 Neoplasm of uncertain behavior of skin 9 06/12/2014 Shortness of breath 09/01/2006 06/12/2014 Abdominal pain, generalized 03/19/200605/31 documented as of this encounter (statuses as of 05/10/2022) [facility] Narrative* Problem Noted Date Resolved Date Shortness of breath 02/12/2016 06/29/2016 Achilles tendinitis 10/04/2012 04/17/2015 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 Neoplasm of uncertain behavior of skin 9 06/12/2014 Shortness of breath 09/01/2006 06/12/2014 Abdominal pain, generalized 03/19/200605/31 documented as of this encounter (statuses as of 05/13/2022) [facility] of [facility] Narrative* Problem Noted Date Resolved Date Shortness of breath 02/12/2016 06/29/2016 Achilles tendinitis 10/04/2012 04/17/2015 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 Neoplasm of uncertain behavior of skin 9 06/12/2014 Shortness of breath 09/01/2006 06/12/2014 Abdominal pain, generalized 03/19/200605/31 documented as of this encounter (statuses as of 07/09/2022) [facility] Narrative* Problem Noted Date Resolved Date Shortness of breath 02/12/2016 06/29/2016 Achilles tendinitis 10/04/2012 04/17/2015 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 Neoplasm of uncertain behavior of skin 9 06/12/2014 Shortness of breath 09/01/2006 06/12/2014 Abdominal pain, generalized 03/19/200605/31 documented as of this encounter (statuses as of 08/19/2022) [facility]09[facility]2016 History of Past illness Narrative* Problem Noted Date Resolved Date Shortness of breath 02/12/2016 06/29/2016 Achilles tendinitis 10/04/2012 04/17/2015 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 Neoplasm of uncertain behavior of skin 9 06/12/2014 Shortness of breath 09/01/2006 06/12/2014 Abdominal pain, generalized 03/19/200605/31 documented as of this encounter (statuses as of 08/24/2022) [facility] History of Past illness Narrative* Problem Noted Date Resolved Date Shortness of breath 02/12/2016 06/29/2016 Achilles tendinitis 10/04/2012 04/17/2015 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 Neoplasm of uncertain behavior of skin 9 06/12/2014 Shortness of breath 09/01/2006 06/12/2014 Abdominal pain, generalized 03/19/200605/31 documented as of this encounter (statuses as of 09/08/2022) [facility] History of Past illness Narrative* Problem Noted Date Resolved Date Shortness of breath 02/12/2016 06/29/2016 Achilles tendinitis 10/04/2012 04/17/2015 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 Neoplasm of uncertain behavior of skin 9 06/12/2014 Shortness of breath 09/01/2006 06/12/2014 Abdominal pain, generalized 03/19/200605/31 documented as of this encounter (statuses as of 09/18/2022) [facility] History of Past illness Narrative* Problem Noted Date Diagnosed Date Resolved Date Shortness of breath 02/12/2016 06/29/19 17 Achilles tendinitis 10/04/2012 04/17/20 15 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 03/25/20 09 06/12/2014 Neoplasm of uncertain behavior of skin 01/23/2009 06/12/2014 Shortness of breath 09/01/2006 06/12/19 15 Abdominal pain, generalized 03/19/2006 06/12/2014 documented as of this encounter (statuses as of 12/07/2022) [facility] History of Past illness Narrative* Problem Noted Date Diagnosed Date Resolved Date Shortness of breath 02/12/2016 06/29/19 17 Achilles tendinitis 10/04/2012 04/17/20 15 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 03/25/20 09 06/12/2014 Neoplasm of uncertain behavior of skin 01/23/2009 06/12/2014 Shortness of breath 09/01/2006 06/12/19 15 Abdominal pain, generalized 03/19/2006 06/12/2014 documented as of this encounter (statuses as of 12/10/2022) [facility] History of Past illness Narrative* Problem Noted Date Diagnosed Date Resolved Date Shortness of breath 02/12/2016 06/29/19 17 Achilles tendinitis 10/04/2012 04/17/20 15 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 03/25/20 09 06/12/2014 Neoplasm of uncertain behavior of skin 01/23/2009 06/12/2014 Shortness of breath 09/01/2006 06/12/19 15 Abdominal pain, generalized 03/19/2006 06/12/2014 documented as of this encounter (statuses as of 12/10/2022) [facility] History of Past illness Narrative* Problem Noted Date Diagnosed Date Resolved Date Shortness of breath 02/12/2016 06/29/19 17 Achilles tendinitis 10/04/2012 04/17/20 15 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 03/25/20 09 06/12/2014 Neoplasm of uncertain behavior of skin 01/23/2009 06/12/2014 Shortness of breath 09/01/2006 06/12/19 15 Abdominal pain, generalized 03/19/2006 06/12/2014 documented as of this encounter (statuses as of 12/11/2022) [facility] History of Past illness Narrative* Problem Noted Date Diagnosed Date Resolved Date Shortness of breath 02/12/2016 06/29/19 17 Achilles tendinitis 10/04/2012 04/17/20 15 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 03/25/20 09 06/12/2014 Neoplasm of uncertain behavior of skin 01/23/2009 06/12/2014 Shortness of breath 09/01/2006 06/12/19 15 Abdominal pain, generalized 03/19/2006 06/12/2014 documented as of this encounter (statuses as of 12/28/2022) [facility] History of Past illness Narrative* Problem Noted Date Diagnosed Date Resolved Date Shortness of breath 02/12/2016 06/29/19 17 Achilles tendinitis 10/04/2012 04/17/20 15 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 03/25/2006/12/2014 Neoplasm of uncertain behavior of skin 01/23/2009 06/12/2014 Shortness of breath 09/01/2006 06/12/19 15 Abdominal pain, generalized 03/19/2006 06/12/2014 documented as of this encounter (statuses as of 01/21/2023) [facility] History of Past illness Narrative* Problem Noted Date Diagnosed Date Resolved Date Shortness of breath 02/12/2016 06/29/19 17 Achilles tendinitis 10/04/2012 04/17/20 15 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 03/25/2006/12/2014 Neoplasm of uncertain behavior of skin 01/23/2009 06/12/2014 Shortness of breath 09/01/2006 06/12/19 15 Abdominal pain, generalized 03/19/2006 06/12/2014 documented as of this encounter (statuses as of 03/09/2023) [facility] History of Past illness Narrative* Problem Noted Date Diagnosed Date Resolved Date Shortness of breath 02/12/2016 06/29/19 17 Achilles tendinitis 10/04/2012 04/17/20 15 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 03/25/20 09 06/12/2014 Neoplasm of uncertain behavior of skin 01/23/2009 06/12/2014 Shortness of breath 09/01/2006 06/12/19 15 Abdominal pain, generalized 03/19/2006 06/12/2014 documented as of this encounter (statuses as of 04/02/2023) [facility] History of Past illness Narrative* Problem Noted Date Diagnosed Date Resolved Date Shortness of breath 02/12/2016 06/29/19 17 Achilles tendinitis 10/04/2012 04/17/20 15 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 03/25/20 09 06/12/2014 Neoplasm of uncertain behavior of skin 01/23/2009 06/12/2014 Shortness of breath 09/01/2006 06/12/19 15 Abdominal pain, generalized 03/19/2006 06/12/2014 documented as of this encounter (statuses as of 04/19/2023) [facility] History of Past illness Narrative* Problem Noted Date Diagnosed Date Resolved Date Shortness of breath 02/12/2016 06/29/19 17 Achilles tendinitis 10/04/2012 04/17/20 15 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 03/25/20 09 06/12/2014 Neoplasm of uncertain behavior of skin 01/23/2009 06/12/2014 Shortness of breath 09/01/2006 06/12/19 15 Abdominal pain, generalized 03/19/2006 06/12/2014 documented as of this encounter (statuses as of 05/03/2023) [facility] History of Past illness Narrative* Problem Noted Date Diagnosed Date Resolved Date Shortness of breath 02/12/2016 06/29/19 17 Achilles tendinitis 10/04/2012 04/17/20 15 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 03/25/20 09 06/12/2014 Neoplasm of uncertain behavior of skin 01/23/2009 06/12/2014 Shortness of breath 09/01/2006 06/12/19 15 Abdominal pain, generalized 03/19/2006 06/12/2014 documented as of this encounter (statuses as of 07/02/2023) [facility] Diagnosis Recurrent major depressive disorder, in full remission (HCC)- Primary [facility] Diagnosis Essential hypertension, benign- Primary Encounter for hepatitis C screening test for low risk patient Benign non-nodular prostatic hyperplasia with lower urinary tract symptoms Recurrent major depressive disorder, in full remission (HCC) [facility] Diagnosis Recurrent major depressive disorder, in full remission (HCC)- Primary [facility] Diagnosis Viral illness- Primary Unspecified viral infection, in conditions classified elsewhere and of unspecified site Acute cough [facility]* Diagnosis At increased risk of exposure to COVID-19 virus- Primary [facility]* Diagnosis SOB (shortness of breath)- Primary Shortness of breath Bronchitis Bronchitis, not specified as acute or chronic Fatigue, unspecified type [facility]* Diagnosis SOB (shortness of breath)- Primary Shortness of breath 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 History of environmental allergies Other allergy, other than to medicinal agents History of COVID-19 [facility] Diagnosis SOB (shortness of breath) Shortness of breath documented [facility] Diagnosis SOB (shortness of breath) Shortness of breath [facility] Diagnosis Essential hypertension, benign- Primary Recurrent major depressive disorder, in full remission (HCC) Benign non-nodular prostatic hyperplasia with lower urinary tract symptoms SOB (shortness of breath) Shortness of breath Fatigue, unspecified type Thrombocyte disorder (HCC) Qualitative platelet defects [facility] Diagnosis Cough variant asthma- Primary SOB (shortness of breath) Shortness of breath History of environmental allergies Other allergy, other than to medicinal agents History of COVID-19 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 [facility]* Diagnosis URI, acute- Primary Acute upper respiratory infections of unspecified site Rhinosinusitis Unspecified sinusitis (chronic) [facility] Diagnosis Viral illness- Primary Unspecified viral infection, in conditions classified elsewhere and of unspecified site Acute cough [facility]* Diagnosis SOB (shortness of breath)- Primary Shortness of breath Acute cough Moderate persistent asthma without complication Unspecified asthma [facility]* Diagnosis Cough variant asthma- Primary [facility]* Diagnosis Rib pain on right side- Primary Chest pain, unspecified [facility]* Diagnosis SOB (shortness of breath) Shortness of breath [facility]* Diagnosis Essential hypertension, benign- Primary Recurrent major depressive disorder, in full remission (HCC) Benign non-nodular prostatic hyperplasia with lower urinary tract symptoms Moderate persistent asthma without complication Unspecified asthma Musculoskeletal pain Mylagia and myositis, unspecified Thrombocyte disorder (HCC) Qualitative platelet defects Elevated glucose Other abnormal glucose [facility]* Diagnosis Cough variant asthma documented in this encounter [facility] note* Diagnosis Cough variant asthma- Primary SOB (shortness of breath) Shortness of breath History of environmental allergies Other allergy, other than to medicinal agents [facility]* Diagnosis Cough variant asthma- Primary Gastroesophageal reflux disease, unspecified whether esophagitis present History of environmental allergies Other allergy, other than to medicinal agents History of COVID-19 documented in this encounter [facility] note* Diagnosis Essential hypertension, benign- Primary Moderate persistent asthma without complication Unspecified asthma Benign non-nodular prostatic hyperplasia with lower urinary tract symptoms Recurrent major depressive disorder, in full remission (HCC) Anxiety Anxiety state, unspecified Low platelet count (HCC) documented in this encounter [facility] noteNo assessment information availableWFort [facility] Work Phone: Evaluation note* Diagnosis PERSON (dyspnea on exertion) Other dyspnea and respiratory abnormality Essential hypertension, benign [facility]* Diagnosis SOB (shortness of breath) Shortness of breath Cough variant asthma [facility]* Diagnosis SOB (shortness of breath) Shortness of breath Cough variant asthma [facility]* Diagnosis Hypertension, essential Unspecified essential hypertension documented in this encounter [facility] note* Diagnosis Onset Date Resolution Status SOB (shortness of breath) ac sonja Hypertension [facility] Work Phone: Evaluation note* Diagnosis Cough variant asthma documented in this encounter [facility] note* Diagnosis Mild persistent asthma without complication- Primary Unspecified asthma Seasonal allergies Allergic rhinitis, cause unspecified [facility]* Diagnosis URI, acute- Primary Acute upper respiratory infections of unspecified site documented in this encounter [facility] note* Diagnosis Subacute cough- Primary Cough History of COVID-19 Mild persistent asthma without complication Unspecified asthma Seasonal allergies Allergic rhinitis, cause unspecified Gastroesophageal reflux disease, unspecified whether esophagitis present Tachycardia Tachycardia, unspecified documented in this encounter [facility] note* Diagnosis SOB (shortness of breath) Shortness of breath [facility]* Diagnosis Acute cough [facility]* Diagnosis Acute cough [facility]* Diagnosis Small airways disease- Primary Other diseases of lung, not elsewhere classified History of COVID-19 Diaphragm, eventration Congenital anomaly of diaphragm documented in this encounter [facility] for referral (narrative)* Outpatient Procedure (Routine) - Authorized Specialty Diagnoses / Procedures Referred By Contac t Referred To [facility] [place] Diagnoses SOB (shortness of breath) Procedures LUNG VOLUMES Genie Bustamante MD [address] [place] [address] [address] Referral ID Status Reason Start Date Expiration Date Visits Requested Visits Authorized [id number] Authorized Auto-Generat ed Referral 02/27/2022 03/29/2023 1 1 * Outpatient Procedure (Routine) - Authorized Specialty Diagnoses / Procedures Referred By Contac t Referred To [facility] Diagnoses SOB (shortness of breath) Procedures NITRIC OXIDE, EXHALED NITRIC OXIDE GAS DETERMINATION Genie Bustamante MD [address] [place] [address] [place] [id number] Referral ID Status Reason Start Date Expiration Date Visits Requested Visits Authorized [id number] Authorized Auto-Generat ed Referral 02/27/2022 03/29/2023 1 1 * Outpatient Procedure (Routine) - Authorized Specialty Diagnoses / Procedures [facility] Diagnoses SOB (shortness of breath) Procedures SPIROMETRY WITH DILATOR IF OBSTRUCTED BRNCDILAT RSPSE SPMTRY PRE&POST-BRNCDILAT Genie Barahona MD [address] [place] [address] [facility] [place] [address] [place] [id number] Referral ID Status Reason Start Date Expiration Date Visits Requested Visits Authorized [id number] Authorized Auto-Generat ed Referral 02/27/2022 03/29/[address] [facility] for referral (narrative)* Diagnostic Procedure Only (Urgent) - Closed Specialty Diagnoses / Procedures [facility] X[facility] Diagnoses Rib pain on right side Procedures XR RIBS/CHEST 3V AP RIB/OBLS/CXR RIGHT RADEX RIBS UNI W/POSTEROANT CH MINIMUM 3 VIEWS Mich Mathis APRN.CNP [address] [place] [address] Xr Imaging Referral ID Status Reason Start Date Expiration Date V isits Requested Visits Authorized [id number] Closed Auto-Generate d Referral 08/19/2022 09/18/[address] [facility] for referral (narrative)* Outpatient Procedure (Routine) - Closed Specialty Diagnoses / Procedures [facility] Diagnoses Cough variant asthma Procedures NITRIC OXIDE, EXHALED NITRIC OXIDE GAS DETERMINATION Becky Fierro PA-C [address] [place] [address] [facility] [place] [address] [place] [address] Referral ID Status Reason Start Date Expiration Date V isits Requested Visits Authorized [id number] Closed Auto-Generate d Referral 12/10/2022 01/09/2024 1 1 * Outpatient Procedure (Routine) - Authorized Specialty Diagnoses / Procedures Referred By Contac t Referred To Contact [facility] Diagnoses SOB (shortness of breath) Procedures ECHO ECHO TTHRC R-T 2D W/WOM-MODE COMPL SPEC&COLR Becky Cohen PA-C [address] [place] [address] [facility] [place] [address] [place] [address] Referral ID Status Reason Start Date Expiration Date Visits Requested Visits Authorized [id number] Authorized Auto-Generat ed Referral 12/10/2022 12/10/[address] [facility] for referral (narrative)* Diagnostic Procedure Only (Routine) - Closed Specialty Diagnoses / Procedures Referred By Contac t Referred To Contact MOLECULAR & FUNCTIONAL IMAGING Diagnoses PERSON (dyspnea on exertion) Essential hypertension, benign Procedures NM CARDIAC PERF STRESS/EXERCISE MYOCARDIAL SPECT MULTIPLE STUDIES Jd Solis MD [address] [place] [address] Molecular [facility] Functional [facility] [address] [place] [address] Referral ID Status Reason Start Date Expiration Date V isits Requested Visits Authorized [id number] Closed Auto-Generate d Referral 01/04/2023 02/03/[address] [facility] for referral (narrative)No reason for referral information availableWFort [facility] Hospital Work Phone: Reason for visit Narrative* Diagnostic Procedure Only (Urgent) - Closed Specialty Diagnoses / Procedures Referred By Contac t Referred To Contact XR IMAGING Diagnoses Rib pain on right side Procedures XR RIBS/CHEST 3V AP RIB/OBLS/CXR RIGHT RADEX RIBS UNI W/POSTEROANT CH MINIMUM 3 VIEWS Mich Mathis APRN.RESIDUE FURNACE OPERATOR [address] [facility] [place] [address] [place] [id number] Referral ID Status Reason Start Date Expiration Date V isits Requested Visits Authorized [id number] Closed Auto-Generate d Referral 08/19/2022 09/18/2023 1 1 [facility] Summary Purpose Family History No Family History Records Found Relationship Condition Age at Onset Recorded Date/T mi mother Depression Unknown Cerebrovascular accident (CVA) Unknown Anxiety Unknown Hypertension Unknown father Malignant neoplasm of pancreas Unknown Advance Directives No Advanced Directives Records FoundDocuments on File Type Date Recorded 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 Advance Directive(s) 06/18/2020 7:30 AM Advance Directive(s) 06/18/2020 7:26 AM Advance Directive(s) 06/12/2020 9:19 AM Advance Directive(s) 02/07/2015 9:07 AM Documents on File Type Date Recorded 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 Advance Directive(s) 06/18/2020 7:26 AM Advance Directive(s) 02/07/2015 9:07 AM Documents on File Type Date Recorded 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 Advance Directive(s) 06/18/2020 7:26 AM Advance Directive(s) 02/07/2015 9:07 AM Documents on File Type Date Recorded 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 Advance Directive(s) 10/20/2022 8:34 AM Advance Directive(s) 06/18/2020 7:26 AM Documents on File Type Date Recorded 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 Advance Directive(s) 10/20/2022 8:34 AM Advance Directive(s) 06/18/2020 7:26 AM Advance Directive Response Recorded Date/ Time Advance Directives Yes March 11:36pm Living Will No June 14 1:11pm Power of Instructional Specialist No June 14, 2021 1:11pm Advance Directive Response Recorded Date/ Time Advance Directives Yes March 10:36pm Living Will No June 14 12:11pm Power of Instructional Specialist No June 14, 2021 12:11pm Advance Directive Response Recorded Date/ Time Advance Directives Yes March 11:36pm Living Will No August 15, 2023 11:59am Power of Instructional Specialist No August 14 11:59am Advance Directive Response Recorded Date/ Time Advance Directives on File No Decem 2023 3:04pm Living Will Yes May 29 3:36pm Do you have a Healthcare Power of Instructional Specialist? Yes May 29, 2024 3:36pm Advance Directives [...] ebruary 2024 10:00am chronic bronchitis, unspecified asthma [facility] 2024 10:00am Reason for Visit Admit Date [...] section and content) DATE CREATED AUTHOR 09/07/2020 [facility] DATE CREATED AUTHOR AUTHOR'S ORGANIZ ATION 05/28/2024 [facility] DATE CREATED AUTHOR AUTHOR'S ORGANIZ ATION 10/29/2024 [facility] Source Comments (unrecognize d section and content) In the event this informatio n is protected by the Federal Confidentiality of Alcohol and Drug Abuse Patient Records regulations: The Federal rules restrict any use of the information to criminally investigate or prosecute any alcohol or drug abuse patient.[facility] the event this information is protected by the Federal Confidentiality of Alcohol and Drug Abuse Patient Records regulations: The Federal rules restrict any use of the information to criminally investigate or prosecute any alcohol or drug abuse patient.[facility] the event this information is protected by the Federal Confidentiality of Alcohol and Drug Abuse Patient Records regulations: The Federal rules restrict any use of the information to criminally investigate or prosecute any alcohol or drug abuse patient.[facility] the event this information is protected by the Federal Confidentiality of Alcohol and Drug Abuse Patient Records regulations: The Federal rules restrict any use of the information to criminally investigate or prosecute any alcohol or drug abuse patient.[facility] the event this information is protected by the Federal Confidentiality of Alcohol and Drug Abuse Patient Records regulations: The Federal rules restrict any use of the information to criminally investigate or prosecute any alcohol or drug abuse patient.[facility] the event this information is protected by the Federal Confidentiality of Alcohol and Drug Abuse Patient Records regulations: The Federal rules restrict any use of the information to criminally investigate or prosecute any alcohol or drug abuse patient.[facility] NorthIn the event this information is protected by the Federal Confidentiality of Alcohol and Drug Abuse Patient Records regulations: The Federal rules restrict any use of the information to criminally investigate or prosecute any alcohol or drug abuse patient.[facility] NorthIn the event this information is protected by the Federal Confidentiality of Alcohol and Drug Abuse Patient Records regulations: The Federal rules restrict any use of the information to criminally investigate or prosecute any alcohol or drug abuse patient.[facility] NorthIn the event this information is protected by the Federal Confidentiality of Alcohol and Drug Abuse Patient Records regulations: The Federal rules restrict any use of the information to criminally investigate or prosecute any alcohol or drug abuse patient.[facility] NorthIn the event this information is protected by the Federal Confidentiality of Alcohol and Drug Abuse Patient Records regulations: The Federal rules restrict any use of the information to criminally investigate or prosecute any alcohol or drug abuse patient.[facility] NorthIn the event this information is protected by the Federal Confidentiality of Alcohol and Drug Abuse Patient Records regulations: The Federal rules restrict any use of the information to criminally investigate or prosecute any alcohol or drug abuse patient.[facility] NorthIn the event this information is protected by the Federal Confidentiality of Alcohol and Drug Abuse Patient Records regulations: The Federal rules restrict any use of the information to criminally investigate or prosecute any alcohol or drug abuse patient.[facility] NorthIn the event this information is protected by the Federal Confidentiality of Alcohol and Drug Abuse Patient Records regulations: The Federal rules restrict any use of the information to criminally investigate or prosecute any alcohol or drug abuse patient.[facility] NorthIn the event this information is protected by the Federal Confidentiality of Alcohol and Drug Abuse Patient Records regulations: The Federal rules restrict any use of the information to criminally investigate or prosecute any alcohol or drug abuse patient.[facility] NorthIn the event this information is protected by the Federal Confidentiality of Alcohol and Drug Abuse Patient Records regulations: The Federal rules restrict any use of the information to criminally investigate or prosecute any alcohol or drug abuse patient.[facility] NorthIn the event this information is protected by the Federal Confidentiality of Alcohol and Drug Abuse Patient Records regulations: The Federal rules restrict any use of the information to criminally investigate or prosecute any alcohol or drug abuse patient.[facility] NorthIn the event this information is protected by the Federal Confidentiality of Alcohol and Drug Abuse Patient Records regulations: The Federal rules restrict any use of the information to criminally investigate or prosecute any alcohol or drug abuse patient.[facility] NorthIn the event this information is protected by the Federal Confidentiality of Alcohol and Drug Abuse Patient Records regulations: The Federal rules restrict any use of the information to criminally investigate or prosecute any alcohol or drug abuse patient.[facility] NorthIn the event this information is protected by the Federal Confidentiality of Alcohol and Drug Abuse Patient Records regulations: The Federal rules restrict any use of the information to criminally investigate or prosecute any alcohol or drug abuse patient.[facility] NorthIn the event this information is protected by the Federal Confidentiality of Alcohol and Drug Abuse Patient Records regulations: The Federal rules restrict any use of the information to criminally investigate or prosecute any alcohol or drug abuse patient.[facility] NorthIn the event this information is protected by the Federal Confidentiality of Alcohol and Drug Abuse Patient Records regulations: The Federal rules restrict any use of the information to criminally investigate or prosecute any alcohol or drug abuse patient.[facility] NorthIn the event this information is protected by the Federal Confidentiality of Alcohol and Drug Abuse Patient Records regulations: The Federal rules restrict any use of the information to criminally investigate or prosecute any alcohol or drug abuse patient.[facility] NorthIn the event this information is protected by the Federal Confidentiality of Alcohol and Drug Abuse Patient Records regulations: The Federal rules restrict any use of the information to criminally investigate or prosecute any alcohol or drug abuse patient.[facility] [place] NorthIn the event this information is protected by the Federal Confidentiality of Alcohol and Drug Abuse Patient Records regulations: The Federal rules restrict any use of the information to criminally investigate or prosecute any alcohol or drug abuse patient.[facility] NorthIn the event this information is protected by the Federal Confidentiality of Alcohol and Drug Abuse Patient Records regulations: The Federal rules restrict any use of the information to criminally investigate or prosecute any alcohol or drug abuse patient.[facility] [place] NorthIn the event this information is protected by the Federal Confidentiality of Alcohol and Drug Abuse Patient Records regulations: The Federal rules restrict any use of the information to criminally investigate or prosecute any alcohol or drug abuse patient.[facility] NorthIn the event this information is protected by the Federal Confidentiality of Alcohol and Drug Abuse Patient Records regulations: The Federal rules restrict any use of the information to criminally investigate or prosecute any alcohol or drug abuse patient.[facility] NorthIn the event this information is protected by the Federal Confidentiality of Alcohol and Drug Abuse Patient Records regulations: The Federal rules restrict any use of the information to criminally investigate or prosecute any alcohol or drug abuse patient.[facility] NorthIn the event this information is protected by the Federal Confidentiality of Alcohol and Drug Abuse Patient Records regulations: The Federal rules restrict any use of the information to criminally investigate or prosecute any alcohol or drug abuse patient.[facility] NorthIn the event this information is protected by the Federal Confidentiality of Alcohol and Drug Abuse Patient Records regulations: The Federal rules restrict any use of the information to criminally investigate or prosecute any alcohol or drug abuse patient.[facility] [place] NorthIn the event this information is protected by the Federal Confidentiality of Alcohol and Drug Abuse Patient Records regulations: The Federal rules restrict any use of the information to criminally investigate or prosecute any alcohol or drug abuse patient.[facility] [place] NorthIn the event this information is protected by the Federal Confidentiality of Alcohol and Drug Abuse Patient Records regulations: The Federal rules restrict any use of the information to criminally investigate or prosecute any alcohol or drug abuse patient.[facility] [place] NorthIn the event this information is protected by the Federal Confidentiality of Alcohol and Drug Abuse Patient Records regulations: The Federal rules restrict any use of the information to criminally investigate or prosecute any alcohol or drug abuse patient.[facility] [place] NorthIn the event this information is protected by the Federal Confidentiality of Alcohol and Drug Abuse Patient Records regulations: The Federal rules restrict any use of the information to criminally investigate or prosecute any alcohol or drug abuse patient.[facility] [place] NorthIn the event this information is protected by the Federal Confidentiality of Alcohol and Drug Abuse Patient Records regulations: The Federal rules restrict any use of the information to criminally investigate or prosecute any alcohol or drug abuse patient.[facility] [place] NorthIn the event this information is protected by the Federal Confidentiality of Alcohol and Drug Abuse Patient Records regulations: The Federal rules restrict any use of the information to criminally investigate or prosecute any alcohol or drug abuse patient.[facility] [place] NorthIn the event this information is protected by the Federal Confidentiality of Alcohol and Drug Abuse Patient Records regulations: The Federal rules restrict any use of the information to criminally investigate or prosecute any alcohol or drug abuse patient.[facility] [place] NorthIn the event this information is protected by the Federal Confidentiality of Alcohol and Drug Abuse Patient Records regulations: The Federal rules restrict any use of the information to criminally investigate or prosecute any alcohol or drug abuse patient.[facility] NorthIn the event this information is protected by the Federal Confidentiality of Alcohol and Drug Abuse Patient Records regulations: The Federal rules restrict any use of the information to criminally investigate or prosecute any alcohol or drug abuse patient.[facility] NorthIn the event this information is protected by the Federal Confidentiality of Alcohol and Drug Abuse Patient Records regulations: The Federal rules restrict any use of the information to criminally investigate or prosecute any alcohol or drug abuse patient.[facility] [place] NorthIn the event this information is protected by the Federal Confidentiality of Alcohol and Drug Abuse Patient Records regulations: The Federal rules restrict any use of the information to criminally investigate or prosecute any alcohol or drug abuse patient.[facility] [place] NorthIn the event this information is protected by the Federal Confidentiality of Alcohol and Drug Abuse Patient Records regulations: The Federal rules restrict any use of the information to criminally investigate or prosecute any alcohol or drug abuse patient.[facility] [place] NorthIn the event this information is protected by the Federal Confidentiality of Alcohol and Drug Abuse Patient Records regulations: The Federal rules restrict any use of the information to criminally investigate or prosecute any alcohol or drug abuse patient.[facility] [place] NorthIn the event this information is protected by the Federal Confidentiality of Alcohol and Drug Abuse Patient Records regulations: The Federal rules restrict any use of the information to criminally investigate or prosecute any alcohol or drug abuse patient.[facility] [place] NorthIn the event this information is protected by the Federal Confidentiality of Alcohol and Drug Abuse Patient Records regulations: The Federal rules restrict any use of the information to criminally investigate or prosecute any alcohol or drug abuse patient.[facility] [place] NorthIn the event this information is protected by the Federal Confidentiality of Alcohol and Drug Abuse Patient Records regulations: The Federal rules restrict any use of the information to criminally investigate or prosecute any alcohol or drug abuse patient.[facility] [place] NorthIn the event this information is protected by the Federal Confidentiality of Alcohol and Drug Abuse Patient Records regulations: The Federal rules restrict any use of the information to criminally investigate or prosecute any alcohol or drug abuse patient.[facility] [place] NorthIn the event this information is protected by the Federal Confidentiality of Alcohol and Drug Abuse Patient Records regulations: The Federal rules restrict any use of the information to criminally investigate or prosecute any alcohol or drug abuse patient.[facility] NorthIn the event this information is protected by the Federal Confidentiality of Alcohol and Drug Abuse Patient Records regulations: The Federal rules restrict any use of the information to criminally investigate or prosecute any alcohol or drug abuse patient.[facility] NorthIn the event this information is protected by the Federal Confidentiality of Alcohol and Drug Abuse Patient Records regulations: The Federal rules restrict any use of the information to criminally investigate or prosecute any alcohol or drug abuse patient.[facility] NorthIn the event this information is protected by the Federal Confidentiality of Alcohol and Drug Abuse Patient Records regulations: The Federal rules restrict any use of the information to criminally investigate or prosecute any alcohol or drug abuse patient.[facility] NorthIn the event this information is protected by the Federal Confidentiality of Alcohol and Drug Abuse Patient Records regulations: The Federal rules restrict any use of the information to criminally investigate or prosecute any alcohol or drug abuse patient.[facility] NorthIn the event this information is protected by the Federal Confidentiality of Alcohol and Drug Abuse Patient Records regulations: The Federal rules restrict any use of the information to criminally investigate or prosecute any alcohol or drug abuse patient.[facility] Reason for Visit (unrecogniz ed section and content) Reason Comments Follow Up Specialty Diagnoses / Procedures Referred By Anne castanon Referred To Contact Psychiatry / ADULT PSYCHIATRY Diagnoses FOLLOW UP Procedures EST PSYC ADULT Betty Barraza, BENDING ROLL OPERATOR.RESIDUE FURNACE OPERATOR [address] [place] [address] Berkley Roque, BENDING ROLL OPERATOR.RESIDUE FURNACE OPERATOR [address] [place] [address] Referral ID Status Reason Start Date Expiration Date V isits Requested Visits Authorized [id number] Pending Review 08/27/2021 11/25/2021 1 1 Reason Comments 6 Month Exam Referral ID Status Reason Start Date Expiration Date Visits Re quested Visits Authorized [id number] Closed 08/27/2021 11/25/2021 1 1 Reason Comments [...] DETERMINATION Genie Bustamante MD [address] [place] [address] [address] Referral ID Status Reason Start Date Expiration Date V isits Requested Visits Authorized [id number] Closed Auto-Generate d Referral 02/27/2022 03/29/2023 1 1 Specialty Diagnoses / Procedures Referred By Contac t Referred To Contact [facility] [place] Diagnoses SOB (shortness of breath) Procedures SPIROMETRY WITH DILATOR IF OBSTRUCTED BRNCDILAT RSPSE SPMTRY PRE&POST-BRNCDILAT ADMN Genie Bustamante MD [address] [place] [address] [address] Referral ID Status Reason Start Date Expiration Date V isits Requested Visits Authorized [id number] Closed Auto-Generate d Referral 02/27/2022 03/29/2023 1 1 Specialty Diagnoses / Procedures Referred By Contac t Referred To Contact [facility] [place] Diagnoses SOB (shortness of breath) Procedures LUNG VOLUMES Genie Bustamante MD [address] [place] [address] [address] Referral ID Status Reason Start Date Expiration Date V isits Requested Visits Authorized [id number] Closed Auto-Generate d Referral 02/27/2022 03/29/2023 1 [...] By Contac t Referred To Contact [facility] [place] Diagnoses Cough variant asthma Procedures NITRIC OXIDE, EXHALED NITRIC OXIDE GAS DETERMINATION Becky Fierro PA-C [address] [place] [address] [place] [address] Referral ID Status Reason Start Date Expiration Date V isits Requested Visits Authorized [id number] Closed Auto-Generate d Referral 12/10/2022 01/09/2024 1 1 Reason Comments Established Patient 6 month follow up co ugh variant asthma Reason Comments Medication Problem Not sure of increase of dosage Reason Comments Asthma Reason Comments Radiology [place] Specialty Diagnoses / Procedures [facility] MOLECULAR & FUNCTIONAL IMAGING Diagnoses PERSON (dyspnea on exertion) Essential hypertension, benign Procedures NM CARDIAC PERF STRESS/EXERCISE MYOCARDIAL SPECT MULTIPLE STUDIES Jd Solis MD [address] [place] [address] Molecular & Functional Imaging [address] [place] [address] Referral ID Status Reason Start Date Expiration Date V isits Requested Visits Authorized [id number] Closed Auto-Generate d Referral 01/04/2023 02/03/2024 1 1 Specialty Diagnoses / [facility] Diagnoses SOB (shortness of breath) Cough variant asthma Procedures SPIROMETRY BASELINE ONLY SPMTRY W/VC EXPIRATORY LINDSAY W/WO MXML VOL VNTJ Becky Fierro PA-C [address] [place] [address] Res[facility] [place] [address] [place] [address] Referral ID Status Reason Start Date Expiration Date V isits Requested Visits Authorized [id number] Closed Auto-Generate d Referral 04/19/2023 05/18/2024 1 1 Specialty Diagnoses / Procedures [facility] Diagnoses SOB (shortness of breath) Cough variant asthma Procedures MIPS/MEPS UNLISTED PULMONARY SERVICE/PROCEDURE Becky Fierro PA-C [address] [place] [address] Res[facility] [place] [address] [place] [address] Referral ID Status Reason Start Date Expiration Date V isits Requested Visits Authorized [id number] Closed Auto-Generate d Referral 04/19/2023 05/18/2024 1 1 Reason Comments Medication Problem Reason Comments Established Patient asthma Reason Comments Head Congestion drainage, cough, sor e throat and chest congestion x 2 days Reason Comments Follow Up Asthma Care Teams (unrecognized sec tion and content) Health Inspector Food Relationship Specialty Start Date End Date Jd Solis MD [address] [facility] [place] [address] PCP - General Family Practice 01/01/21 Health Inspector Food Relationship Specialty Start Date End Date Jd Solis MD [address] [facility] [address] PCP - General Family Practice 01/01/21 Health Inspector Food Relationship Specialty Start Date End Date Jd Solis MD [address] [place] [address] PCP - General Family Practice 01/01/21 Health Inspector Food Relationship Specialty Start Date End Date Jd Solis MD [address] [place] [address] PCP - General Family Practice 01/01/21 Health Inspector Food Relationship Specialty Start Date End Date Jd Solis MD [address] [place] [address] PCP - General Family Practice 01/01/21 Health Inspector Food Relationship Specialty Start Date End Date Jd Solis MD [address] [place] [address] PCP - General Family Medicine 01/01/21 Health Inspector Food Relationship Specialty Start Date End Date Jd Solis MD [address] [facility] [address] PCP - General Family Medicine 01/01/21 Health Inspector Food Relationship Specialty Start Date End Date Jd Solis MD [address] [facility] [address] PCP - General Family Medicine 01/01/21 Health Inspector Food Relationship Specialty Start Date End Date Jd Solis MD [address] [facility] [address] PCP - General Family Medicine 01/01/21 Health Inspector Food Relationship Specialty Start Date End Date Jd Solis MD [address] [facility] [address] PCP - General Family Medicine 01/01/21 Health Inspector Food Relationship Specialty Start Date End Date Jd Solis MD [address] [facility] [address] PCP - General Family Medicine 01/01/21 Health Inspector Food Relationship Specialty Start Date End Date Jd Solis MD [address] [facility] [address] PCP - General Family Medicine 01/01/21 Health Inspector Food Relationship Specialty Start Date End Date Jd Solis MD [address] [place] [address] PCP - General Family Medicine 01/01/21 Health Inspector Food Relationship Specialty Start Date End Date Jd Solis MD [address] [facility] [address] PCP - General Family Medicine 01/01/21 Health Inspector Food Relationship Specialty Start Date End Date Jd Solis MD [address] [place] [address] PCP - General Family Medicine 01/01/21 Health Inspector Food Relationship Specialty Start Date End Date Jd Solis MD [address] [facility] [address] PCP - General Family Medicine 01/01/21 Health Inspector Food Relationship Specialty Start Date End Date Jd Solis MD [address] [facility] [address] PCP - General Family Medicine 01/01/21 Health Inspector Food Relationship Specialty Start Date End Date Jd Solis MD [address] [facility] [place] [place] [address] PCP - General Family Medicine 01/01/21 Health Inspector Food Relationship Specialty Start Date End Date Jd Solis MD [address] [place] [address] PCP - General Family Medicine 01/01/21 Health Inspector Food Relationship Specialty Start Date End Date Jd Solis MD [address] [place] [address] PCP - General Family Medicine 01/01/21 Health Inspector Food Relationship Specialty Start Date End Date Jd Solis MD [address] [place] [address] PCP - General Family Medicine 01/01/21 Health Inspector Food Relationship Specialty Start Date End Date Jd Solis MD [address] [place] [address] PCP - General Family Medicine 01/01/21 Health Inspector Food Relationship Specialty Start Date End Date Jd Solis MD [address] [place] [address] PCP - General Family Medicine 01/01/21 Health Inspector Food Relationship Specialty Start Date End Date Jd Solis MD [address] [place] [address] PCP - General Family Medicine 01/01/21 Health Inspector Food Relationship Specialty Start Date End Date Jd Solis MD [address] [place] [address] PCP - General Family Medicine 01/01/21 Health Inspector Food Relationship Specialty Start Date End Date Jd Solis MD [address] [place] [address] PCP - General Family Medicine 01/01/21 Health Inspector Food Relationship Specialty Start Date End Date Jd Solis MD [address] [place], [place] [address] PCP - General Family Medicine 01/01/21 Health Inspector Food Relationship Specialty Start Date End Date Jd Solis MD [address] [place] [address] PCP - General Family Medicine 01/01/21 Team Status: Active Member Role Status Dates Dr. Daniel Naqvi III, MD Family Provider Active Dr. Jd Solis MD Primary Care Provider Active Team Status: Inactive Member Role Status Dates Dr. Jd Solis MD Primary Care Provider Active Dr. Tre García MD Attending Provider Active Health Inspector Food Relationship Specialty Start Date End Date Jd Solis MD [address] [place] [address] PCP - General Family Medicine 01/01/21 Team Status: Active Member Role Status Dates Dr. Jd Solis MD Primary Care Provider Active Dr. Geovanny Naqvi MD Attending Provider Active Team Status: Inactive Member Role Status Dates Dr. Jd Solis MD Primary Care Provider Active Dr. Tre García MD Attending Provider, Referring Pr ovider Active Health Inspector Food Relationship Specialty Start Date End Date Jd Solis MD [address] [place], [place] [id number] PCP - General Family Medicine 01/01/21 Team [...] Active Chacho LEAVITT MD Referring Provider Active Health Inspector Food Relationship Specialty Start Date End Date Jd Solis MD [address] [place], [place] [id number] PCP - General Family Medicine 01/01/21 Team Status: Inactive Member Role Status Dates Dr. Tre García MD Primary Care Provider, Attending Provider Active Team Status: Inactive Member Role Status Dates Dr. Tre García MD Primary Care Provider Active Dr. Joe Lisa DO Emergency Provider Active Team Status: Inactive Member Role Status Dates Dr. rTe García MD Primary Care Provider Active Dr. Joe Lisa DO Attending Provider, Emergency Pro vider Active Health Inspector Food Relationship Specialty Start Date End Date Tre García Chi [address] [place], [place] [id number] PCP - General Gerontology 11/09/23 Health Inspector Food Relationship Specialty Start Date End Date Tre García Chi [address] [place], [place] [address] PCP - General Gerontology 11/09/23 Health Inspector Food Relationship Specialty Start Date End Date Tre García Chi [address] [place], [place] [id number] PCP - General Gerontology 11/09/23 Health Inspector Food Relationship Specialty Start Date End Date Jd Solis MD [address] [facility], [place] [id number] PCP - General Family Medicine 01/01/21 11/08/23 Health Inspector Food Relationship Specialty Start Date End Date Tre García Ted [address] [id number] PCP - General Gerontology 11/09/23 Health Inspector Food Relationship Specialty Start Date End Date Jd Solis MD [address] [facility] [address] PCP - General Family Medicine 01/01/21 11/08/23 Health Inspector Food Relationship Specialty Start Date End Date Jd Solis MD [address] [facility] [address] PCP - General Family Medicine 01/01/21 11/08/23 Health Inspector Food Relationship Specialty Start Date End Date Tre García Ted [address] [address] PCP - General Gerontology 11/09/23 Health Inspector Food Relationship Specialty Start Date End Date Tre García Chi [address] [id number] PCP - General Gerontology 11/09/23 Team Status: [...] Active Start: May 10, 2024 Kimberly Swenson MATERIAL ASSEMBLER, MATERIAL ASSEMBLER-C Attending Provider Active Start: May 10, 2024 Kimberly Swenson MATERIAL ASSEMBLER, MATERIAL ASSEMBLER-C Other Provider Active S tart: May 10, 2024 Team Status: Inactive Member Role Status Dates Dr. Tre García MD Primary Care Provider Active Start: May 17, 2024 End: May 22, 2024 Dr. Tre García MD Referring Provider Active Start: May 17, 2024 End: May 22, 2024 Kimberly Swenson MATERIAL ASSEMBLER, MATERIAL ASSEMBLER-C Attending Provider Active Start: May 17, 2024 End: May 22, 2024 Team Status: Active Member Role Status Dates Dr. Tre García MD Primary Care Provider Active Start: May 17, 2024 Dr. Tre García MD Referring Provider Active Start: May 17, 2024 Kimberly Swenson MATERIAL ASSEMBLER, MATERIAL ASSEMBLER-C Attending Provider Active Start: May 17, 2024 Kimberly Swenson MATERIAL ASSEMBLER, MATERIAL ASSEMBLER-C Other Provider Active S tart: May 17, [...] BE BASED ON THE PRIMARY CLINICAL RECORDS. [employer] provides no warranty or guarantee of the accuracy or completeness of information in this document.
[2024-11-25 22:08] LABS: Magnesium 2.2 mg/dL (1.5-2.2)
--- NOTE | 2024-11-25 22:33 | ECHOD_ITS ---
Reason For Study Reason For Study: TIA/CVA Procedure This was a 2D Doppler, Color Flow transthoracic echocardiogram. Exam performed portable in patient room. Left Ventricle Normal LV size. The estimated ejection fraction is 55-60 %. Right Ventricle Normal right ventricle. Normal systolic function. Atria Normal left atrium. Normal right atrium. Mitral Valve There is moderate mitral annular calcification. Trivial mitral valve insufficiency. Tricuspid Valve Normal tricuspid valve. Aortic Valve Aortic sclerosis, no stenosis. Mild (1+) eccentric aortic valve insufficiency. Pulmonic Valve The pulmonic valve is not well visualized. Great Vessels Normal sized aortic root. Pericardium/Pleural No pericardial effusion. MMode/2D Measurements & Calculations LVIDd: 3.6 cm IVSd: 1.1 cm LVOT diam: 2.0 cm LVIDs: 2.5 cm LVPWd: 0.92 cm LVOT area: 3.1 cm2 RVDd: 3.8 cm FS: 29.6 % asc Aorta Diam: 4.0 cm LAV(MOD-bp): 47.3 ml LVAd ap4: 21.3 cm2 LAV(MOD-bp) Indexed: 23.3 ml/m2 LVLd ap4: 7.5 cm LAV(MOD-sp2): 50.5 ml EDV(MOD-sp4): 49.4 ml LAV(MOD-sp4): 37.9 ml EDV(sp4-el): 51.2 ml LVAs ap4: 11.9 cm2 LVLs ap4: 6.4 cm ESV(MOD-sp4): 19.5 ml ESV(sp4-el): 18.9 ml EF(MOD-sp4): 60.5 % EF(sp4-el): 63.1 % LVAd ap2: 24.6 cm2 SV(MOD-sp4): 29.9 ml SV(MOD-sp2): 38.4 ml LVLd ap2: 7.7 cm SI(MOD-sp4): 14.7 ml/m2 SI(MOD-sp2): 18.9 ml/m2 EDV(MOD-sp2): 64.8 ml EDV(sp2-el): 66.8 ml LVAs ap2: 14.4 cm2 LVLs ap2: 6.7 cm ESV(MOD-sp2): 26.4 ml ESV(sp2-el): 26.5 ml EF(MOD-sp2): 59.3 % SV(sp4-el): 32.3 ml Ao sinus diam: 3.[address] Junction: 3.3 cm LA dimension(2D): 3.9 cm LA A4 area: 14.8 cm2 RA A4 area: 8.2 cm2 TAPSE: 1.8 cm Time Measurements MV dec time: 0.39 sec Doppler Measurements & Calculations MV E max meng: 79.7 cm/sec Lat Peak E' Meng: 9.1 cm/sec Med Peak E' Meng: 10.3 cm/sec MV A max meng: 130.2 cm/sec E/E' lat: 8.8 E/E' med: 7.7 MV E/A: 0.61 MV dec slope: 203.5 cm/sec2 Ao V2 max: 130.9 cm/sec AI max meng: 396.8 cm/sec Ao max P.9 mmHg AI max P.9 mmHg Ao V2 mean: 78.9 cm/sec AI dec slope: 390.8 cm/sec2 Ao mean P.0 mmHg AI P1/2t: 297.4 msec Ao V2 VTI: 24.8 cm AV (velocity ratio): 0.91 TIGIST(I,D): 2.8 cm2 TIGIST(V,D): 2.7 cm2 LV V1 max: 112.9 cm/sec SV(LVOT): 69.1 ml PA V2 max: 120.4 cm/sec LV V1 max P.1 mmHg LV V1 mean P.5 mmHg LV V1 mean: 72.8 cm/sec LV V1 VTI: 22.4 cm TR max meng: 254.9 cm/sec TR max P.0 mmHg ECHO/Echo Complete Interpretation Summary The estimated ejection fraction is 55-60 %. Mild aortic incompetence No prior echo to compare. Ordering Physician: Megan Garcia Referring Physician: Tre García Chi Performed By: Elin Browne RDCS
[2024-11-25 22:48] LABS: Troponin T High Sens 2 HR 36 ng/L (<=22)
[2024-11-25] MEDS: 0.9% Normal Saline (1000mL) 1,000 ML 75 ML IV (23:45)
[2024-11-25] MEDS: Nortriptyline 25 MG Capsule 50 MG PO (23:46)
[2024-11-25] MEDS: Atorvastatin Calcium 40 MG Tablet PO (23:46)
[2024-11-25] MEDS: Tamsulosin HCl 0.4 MG Capsule PO (23:46)
[2024-11-26] VITALS (9 sets, daily range): BP systolic 126–149; BP diastolic 70–83; PULSE 70–88; RESP 16–18; TEMP 36.5–37.1; O2SAT 93–98; BMI 30.1
[2024-11-26 01:08] LABS: Troponin T High Sens 4 HR 35 ng/L (<=22)
[2024-11-26 06:33] LABS: Absolute Lymphocyte Count 2.94 X10^3/uL (0.83-4.51); Basophil# 0.02 X10^3/uL; Basophil% 0.3 % (0-1); Eosinophil# 0.03 X10^3/uL; Eosinophils% 0.5 % (0-5); Hematocrit 39.9 % (40-54); Hemoglobin 13.6 g/dL (13.0-16.5); Lymphocyte # 2.94 X10^3/ul (0.83-4.51); Lymphocyte % 46.7 % (19-41); Mean Corp Hgb Conc 34.1 g/dL (32-36); Mean Corpuscular Hgb 31.4 pg (27.0-32.0); Mean Corpuscular Volume 92.1 fL (80-94); Mean Platelet Vol. 9.3 fl (6.2-12.0); Monocyte# 0.28 X10^3/uL; Monocyte% 4.5 % (0-10); NRBC Flagged by Analyzer 0.3 % (0-5); Neutrophil # 3.01 X10^3/uL (2.7-7.7); Neutrophil % 47.8 % (47-70); Platelet Count 102 K/mm3 (150-450); RBC Distribution Width CV 13.4 % (11.6-14.6); RBC Distribution Width SD 45.8 fl (35.1-43.9); Red Blood Count 4.33 M/mm3 (4.6-6.2); White Blood Count 6.3 K/mm3 (4.4-11.0)
[2024-11-26 06:58] LABS: Hemoglobin A1c 5.3 % (<=5.6)
[2024-11-26 07:02] LABS: AST(SGOT) 24 U/L (<=37); Alanine Aminotransfer ALT/SGPT 22 U/L (<=46); Albumin, Serum 3.6 g/dL (3.4-4.8); Alkaline Phosphatase 74 U/L (40-129); Anion Gap 9 (5-15); BUN 16 mg/dL (4-19); BUN/Creat Ratio 17.5 RATIO (10-20); Calcium,Total 8.8 mg/dL (7.6-11.0); Carbon Dioxide 21.7 mmol/L (21.0-32.0); Chloride 111 mmol/L (98-108); Cholesterol 101 mg/dL (<=200); Creatinine, Serum 0.94 mg/dL (0.70-1.20); EST Glomerular Filtration Rate 82 (>60); Estimated Creatinine Clearance 68.23 ml/min (50-250); Globulin 1.8 g/dL (2.2-4.2); Glucose 96 mg/dL (70-99); High Density Lipoprotein 41 mg/dL; Low Density Lipoprotein Calc. 51 mg/dL; Potassium 4.5 mmol/L (3.3-5.1); Protein, Total 5.4 g/dL (5.9-8.4); Sodium Level 141 mmol/L (133-145); Total Bilirubin 0.71 mg/dL (0.00-1.30); Triglycerides 46 mg/dL; Very Low Density Lipoprotein 9 mg/dL (5-40); cholesterol:hdl ratio screen 2.48
--- NOTE | 2024-11-26 07:23 | PCM.PN.HOSP ---
Reason for Visit Reason for Visit: Blurred vision/vertigo Subjective Subjective NIH is of 0. Patient states he is back to baseline. We discussed his MRI being negative. Echocardiogram is pending and anticipate that will be done tomorrow. As long as he remains stable we discussed this plan is discharge home tomorrow. Objective Data Objective Data Vital Signs: Vital Signs Temp Pulse Resp BP Pulse Ox O2 Del Method 97.7 F L 77 16 149/83 H 94 Room Air 11/26/24 06:00 11/26/24 06:00 11/26/24 06:00 11/26/24 06:00 11/26/24 06:00 11/26/24 06:00 Oxygen Delivery Method Room Air Weight: 89.8 kg Body Mass Index (BMI) 30.1 Intake & Output: Intake and Output for Last 24 Hours 11/24/24 11/25/24 11/26/24 23:59 23:59 23:59 Intake Total 1000 / 1100 100 / 100 Output Total 0 / 0 Balance 1000 / 1100 100 / 100 Lab / Micro Data 11/26/24 06:10 11/26/24 06:10 Labs: Laboratory Results - last 24 hr 11/25/24 19:55: WBC 7.8, RBC 4.49 L, Hgb 14.2, Hct 40.9, MCV 91.1, MCH 31.6, MCHC 34.7, RDW Std Deviation 45.5 H, RDW Coeff of Chucho 13.5, Plt Count 124 L, MPV 9.5, Immature Gran % (Auto) 0.400, Neut % (Auto) 41.5 L, Lymph % (Auto) 52.1 H, [place] % (Auto) 5.2, Eos % (Auto) 0.4, Baso % (Auto) 0.4, Absolute Neuts (auto) 3.2, Absolute Lymphs (auto) 4.07, Nucleated RBC % 0, PT 13.7, INR 1.0, APTT 25.8, Sodium 140, Potassium 4.4, Chloride 106, Carbon Dioxide 21.3, Anion Gap 13, BUN 21 H, Creatinine 1.15, Estim Creat Clear Calc 56.26, Est GFR (MDRD) Non-Af 64, BUN/Creatinine Ratio 18.3, Glucose 99, Calcium 9.4, Magnesium 2.2, Troponin T High Sens 39 H 11/25/24 20:11: POC Glucose 120 H 11/25/24 21:55: Troponin T Hi Sens 2 Hr 36 H 11/26/24 00:13: Troponin T Hi Sens 4Hr 35 H 11/26/24 06:10: WBC 6.3, RBC 4.33 L, Hgb 13.6, Hct 39.9 L, MCV 92.1, MCH 31.4, MCHC 34.1, RDW Std Deviation 45.8 H, RDW Coeff of Chucho 13.4, Plt Count 102 L, MPV 9.3, Immature Gran % (Auto) 0.200, Neut % (Auto) 47.8, Lymph % (Auto) 46.7 H, [place] % (Auto) 4.5, Eos % (Auto) 0.5, Baso % (Auto) 0.3, Absolute Neuts (auto) 3.0, Absolute Lymphs (auto) 2.94, Nucleated RBC % 0.3, Sodium 141, Potassium 4.5, Chloride 111 H, Carbon Dioxide 21.7, Anion Gap 9, BUN 16, Creatinine 0.94, Estim Creat Clear Calc 68.23, Est GFR (MDRD) Non-Af 82, BUN/Creatinine Ratio 17.5, Glucose 96, Hemoglobin A1c 5.3, Calcium 8.8, Total Bilirubin 0.71, AST 24, ALT 22, Alkaline Phosphatase 74, Total Protein 5.4 L, Albumin 3.6, Globulin 1.8 L, Albumin/Globulin Ratio 2.0, Triglycerides 46, Cholesterol 101, LDL Cholesterol, Calc 51, VLDL Cholesterol 9, HDL Cholesterol 41, Cholesterol/HDL Ratio 2.48, TSH 1.040 Radiography Diagnostic Testing: Radiology Impression Brain CT 11/25/24 20:13 IMPRESSION: No acute intracranial finding. Dr. Fam discussed these findings via telephone with Dr. Clifford at 8:31 pm on 11/25/24. Reading Location: [id number] Chest X-Ray 11/25/24 20:13 IMPRESSION: No significant change since last exam. Reading Location: [id number] Head/Neck CTA 11/25/24 20:14 IMPRESSION: No large vessel occlusion, aneurysm or AVM. Reading Location: [facility] Physical Exam Const alert, oriented x3, no apparent distress, average body habitus, healthy appearing and well nourished Constitutional Narrative: Very pleasant, older, white male, appears younger than stated age, lying on his right side in bed resting comfortably but awakens easily and interacts appropriately HEENT head/scalp atraumatic and moist oral mucous membranes HEENT Narrative: Mallampati 2, no thrush Head and Scalp: normocephalic Resp normal respiratory effort, no retractions, no use of accessory muscles and clear to auscultation bilaterally Auscultation: Negative for crackles, rhonchi or wheezes Cardio regular rate, regular rhythm, S1 normal heart sound, S2 normal heart sound, no murmurs, no rub, no gallops and no clicks GI normal to inspection, nondistended, normoactive bowel sounds, soft to palpation and non-tender Extremity no clubbing, cyanosis or edema Neuro oriented x3, CN's II-XII intact bilaterally, moves all extremities and no focal motor deficits Speech: speech normal Psych affect normal Psych Narrative: Very pleasant, interacts appropriately Assessment & Plan Assessment/Plan (1) Change in vision: (2) Dizziness: (3) Elevated troponin: PLAN: Plan Change in vision/vertigo - MRI is negative - Neurology has evaluated the patient and feels that this is likely related to his elevated blood pressure versus presyncope and symptoms should be monitored with outpatient BP check with PCP as follow-up - Echocardiogram is pending for tomorrow - Continue aspirin - Continue atorvastatin - Continue NIH is with less frequency to ensure he remained stable - PT and OT have evaluated the patient and he is doing clinically well - NIH is 0 - Neuro has evaluated the patient and appreciate input - Probable discharge on 11/27/2024 Thrombocytopenia - Lab appears to fluctuate - Repeat CBC in a.m. 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 History of tobacco abuse - Remote and recommend ongoing cessation Obesity - BMI is 30.1 - Complicates treatment, prognosis, outcomes - Recommend weight loss DVT prophylaxis - Continue Lovenox CODE STATUS - Full code Charges/Coding Visit Charges Inpatient E&M: 93284 Subs Hosp L2 NIHSS NIHSS Nursing Documentation NIHSS Nursing Documentation: NIH Stroke Scale Start: 11/25/24 20:09 Freq: Status: Discharge Protocol: Activity Type Activity Date Activity User E-sign Co-sign Detail Recorded Client Recorded Date Recorded By Document 11/25/24 20:09 ET [id number] 11/25/24 20:10 ET 11/25/24 20:09 NIH Stroke Scale [NIHSS] A score of 0 is normal or asymptomatic . Total possible score is 42. Inpatient: RN or Physician to activate a stroke alert for onset of new stroke symptoms or with NIHSS increase >/= 3 points. Following change in neurological status, NIHSS will be performed per physician order or more frequently PRN. -1a. Level of Consciousness 0 - Alert; keenly responsive -1b. LOC Questions 0 - Answers BOTH questions correctly -1c. LOC Commands 0 - Performs BOTH tasks correctly -2. Best Gaze 0 - Normal -3. Visual 0 - No visual loss -4. Facial Palsy 0 - Normal symmetrical movements -5a. Left Arm 0 - No drift; arm holds 90 ( or 45) degrees for full 10 seconds -5b. Right Arm 0 - No drift; arm holds 90 ( or 45) degrees for full 10 seconds -6a. Left Leg 0 - No drift; leg holds 30- degree position for full 5 seconds -6b. Right Leg 0 - No drift; leg holds 30- degree position for full 5 seconds -7. Limb Ataxia 0 - Absent -8. Sensory 0 - Normal; no sensory loss -9. Best Language 0 - No aphasia; normal -10. Dysarthria 0 - Normal -11. Extinction and Inattention 0 - No abnormality -Total 0 Query Text:A score of 0 is normal or asymptomatic. Total possible score is 42 . ED: Notify Physician for NIHSS increase by > / = 3 points. Inpatient: RN or Physician to activate a stroke alert for NIHSS increase of > / = 3 points. NIHSS: Ischemic Stroke/TIA Start: 11/25/24 22:33 Text: For PCU Patients: NIH and Neuro Check every 4 Status: Active hours, PRN and with change in RN caregiver. Freq: [id number] Protocol: Activity Type Activity Date Activity User E-sign Co-sign Detail Recorded Client Recorded Date Recorded By Document 11/26/24 06:00 RPS [id number] 11/26/24 06:46 RPS 11/26/24 06:00 -1a. Level of Consciousness 0 - Alert; keenly responsive -1b. LOC Questions 0 - Answers BOTH questions correctly -1c. LOC Commands 0 - Performs BOTH tasks correctly -2. Best Gaze 0 - Normal -3. Visual 0 - No visual loss -4. Facial Palsy 0 - Normal symmetrical movements -5a. Left Arm 0 - No drift; arm holds 90 ( or 45) degrees for full 10 seconds -5b. Right Arm 0 - No drift; arm holds 90 ( or 45) degrees for full 10 seconds -6a. Left Leg 0 - No drift; leg holds 30- degree position for full 5 seconds -6b. Right Leg 0 - No drift; leg holds 30- degree position for full 5 seconds -7. Limb Ataxia 0 - Absent -8. Sensory 0 - Normal; no sensory loss -9. Best Language 0 - No aphasia; normal -10. Dysarthria 0 - Normal -11. Extinction and Inattention 0 - No abnormality -Total 0 Query Text:A score of 0 is normal or asymptomatic. Total possible score is 42 . ED: Notify Physician for NIHSS increase by > / = 3 points. Inpatient: RN or Physician to activate a stroke alert for NIHSS increase of > / = 3 points. Coma Scale [Assess] -Eye Opening Spontaneous -Motor Obeys Commands -Verbal Oriented [Total] -Coma Scale Total 15
[2024-11-26] MEDS: Enoxaparin 40 MG/0.4 ML Syringe SC (09:55)
[2024-11-26] MEDS: Nortriptyline 25 MG Capsule 50 MG PO ×2 (09:56→21:29)
[2024-11-26] MEDS: Montelukast 10 MG Tablet PO (09:56)
[2024-11-26] MEDS: Pantoprazole Sodium 40 MG Tablet PO (09:56)
[2024-11-26] MEDS: Aspirin 81 MG TAB.CHEW PO (09:57)
[2024-11-26] MEDS: Azithromycin 250 MG Tablet PO (10:07)
--- NOTE | 2024-11-26 11:05 | CON.PCM.NE_ITS ---
Assessment and Plan: Stroke Assessment/Plan Assessment: - Clinically this does NOT sound like a stroke or TIA, the vision was not described as a visual field cut but more positive phenomenon (fuzzy and squgglies), no focal deficits (gen weakness), he could speak with no dysarthria (but getting words out was hard). This sounds more presyncope vs HTN crisis. He denies any recent illness or changes to meds. Plan: - Recommend MRI brain and TTE just to ensure nothing is being missed. If unrevealing, likely HTN crisis vs presyncope and should just monitor symptoms, monitor BP and f/u with pcp. HPI Consult Data Date of Consult: 11/26/24 HPI Narrative HPI Narrative: JOANIE CABRERA, is a 79 M who is a former tobacco use, CKD, BPH with obstructive pathology, HTN, HLD, Anxiety and Depression, Chronic lumbar back pain, Asthma with allergic rhinitis, GERD who presents to the [facility] ED on 11/25/2024 with visual disturbances, vertigo and generalized weakness. He was at home watching tv when his vision got fuzzy and saw squigglies, then room started spinning, generalized weakness and had a hard time getting words out but could speak. Never happened before. Per family SBP 190s at that time. It lasted about 30min and returned to baseline. CTH/CTA neg. Clinically this does NOT sound like a stroke or TIA, the vision was not described as a visual field cut but more positive phenomenon (fuzzy and squgglies), no focal deficits (gen weakness), he could speak with no dysarthria (but getting words out was hard). This sounds more presyncope vs HTN crisis. He denies any recent illness or changes to meds. Recommend MRI brain and TTE just to ensure nothing is being missed. If unrevealing, likely HTN crisis vs presyncope and should just monitor symptoms, monitor BP and f/u with pcp. [facility] Medical History (Updated 11/25/24 @ 22:59 by Judith Chapa) COPD (chronic obstructive pulmonary disease) Former tobacco use Obesity CKD (chronic kidney disease), stage II Allergic rhinitis Anxiety and depression Constipation Chronic low back pain BPH (benign prostatic hyperplasia) Hyperlipidemia Asthma COVID-19 Hypertension GERD (gastroesophageal reflux disease) Home Medications ?Medication ?Instructions ?Recorded ?Last Taken ?Type polyethylene glycol 3350 17 gram 17 g PO DAILY PRN Con stipation 04/19/13 04/19/13 07:00 History oral powder packet lisinopril 5 mg tablet 5 mg PO DAILY 08/28/20 Unkno wn History tamsulosin 0.4 mg capsule 0.4 mg PO QHS 06/16/21 Unkno wn History montelukast 10 mg tablet 10 mg PO DAILY 05/06/23 Unkn own History nortriptyline 50 mg capsule 50 mg PO BID 06/02/23 Unkn own History omeprazole 10 mg capsule,delayed 40 mg PO DAILY Unknown History release azithromycin 250 mg tablet 250 mg PO DAILY 11/25/24 Un known History budesonide 160 mcg-glycopyr 9 2 inh inhalation BID Unknown History mcg-formot 4.8 mcg/actuation HFA inhaler (Breztri Aerosphere) Allergy/AdvReac Type Severity Reaction Status Date / Time No Known Allergies Allergy Verified 11/25/24 20:06 Family History Mother Depression CVA (cerebral vascular accident) Anxiety Hypertension Father Pancreatic cancer Surgical History Hx of cataract extraction Social History (Updated 11/25/24 @ 21:[address] Megan Garcia MD) household members: spouse Smoking Status: Former smoker how long ago did patient quit smoking: Quit 1974, smoked cigars only. alcohol intake: never substance use type: does not use Vital Signs Vital Signs Vital Signs: 11/25/24 20:06 11/25/24 20:13 11/25/24 20:18 Temperature 97.9 F Temperature Source Oral Pulse Rate 85 86 Respiratory Rate 13 16 Respiratory Effort Respiratory Depth Respiratory Pattern Blood Pressure 133/74 H 133/74 H Blood Pressure Mean 93 93 Blood Pressure Source Blood Pressure Position Blood Pressure Location Pulse Ox 93 93 Oxygen Delivery Method Room Air Room Air Room Air 11/25/24 20:28 11/25/24 20:43 11/25/24 21:13 Temperature Temperature Source Pulse Rate 91 90 88 Respiratory Rate 25 H 15 13 Respiratory Effort Respiratory Depth Respiratory Pattern Blood Pressure 115/92 H 133/80 H 141/74 H Blood Pressure Mean 99 97 96 Blood Pressure Source Blood Pressure Position Blood Pressure Location Pulse Ox 95 92 97 Oxygen Delivery Method Room Air Room Air Room Air 11/25/24 21:51 11/25/24 22:35 11/25/24 23:00 Temperature 98.2 F 97.6 F L Temperature Source Oral Pulse Rate 87 81 Respiratory Rate 16 16 Respiratory Effort Normal Respiratory Depth Normal Respiratory Pattern Normal Blood Pressure 136/78 H 144/76 H Blood Pressure Mean 97 98 Blood Pressure Source Monitor Blood Pressure Position Semi-Fowlers Blood Pressure Location Right Arm Pulse Ox 95 97 Oxygen Delivery Method Room Air Room Air 11/26/24 01:00 11/26/24 02:00 11/26/24 04:51 Temperature 98 F Temperature Source Oral Pulse Rate 83 Respiratory Rate 16 Respiratory Effort Normal Respiratory Depth Normal Respiratory Pattern Normal Blood Pressure 137/72 H Blood Pressure Mean 93 Blood Pressure Source Monitor Blood Pressure Position Semi-Fowlers Blood Pressure Location Right Arm Pulse Ox 94 95 Oxygen Delivery Method Room Air Room Air Room Air 11/26/24 06:00 11/26/24 09:46 Temperature 97.7 F L 98.3 F Temperature Source Oral Oral Pulse Rate 77 82 Respiratory Rate 16 16 Respiratory Effort Respiratory Depth Respiratory Pattern Blood Pressure 149/83 H 134/73 H Blood Pressure Mean 105 93 Blood Pressure Source Monitor Monitor Blood Pressure Position Semi-Fowlers Semi-Fowlers Blood Pressure Location Right Arm Right Arm Pulse Ox 94 93 Oxygen Delivery Method Room Air Room Air Weight Weight: 89.8 kg Body Mass Index (BMI) 30.1 Physical Exam Narrative - General: NAD, pleasant, cooperative, well nourished, well developed - Head/Eyes: Atraumatic, normocephalic, clear cornea, normal sclera/conjunctive - Neuro: ? Mental Status: AAOX4 & following simple commands. ? Speech: Clear and fluent with good repetition, comprehension, & naming. No aphasia or dysarthria ? CN II: Visual zimmerman are full to confrontation. ? CN III, IV, : EOMI, no gaze preference, no nystagmus, no ptosis ? CN V: Facial sensation is intact to light touch throughout. ? CN VII: Face is symmetric with normal eye closure and smile. ? CN VII: Hearing is grossly normal to conversational speech. ? Motor: Able to sustain all limbs ? Sensation: Normal to light touch bilaterally. ? Coordination: Normal FTN & HTS. No abn movements seen. ? Lab / Micro Data 11/26/24 06:10 11/26/24 06:10 Labs: Laboratory Results - last 24 hr 11/25/24 19:55: WBC 7.8, RBC 4.49 L, Hgb 14.2, Hct 40.9, MCV 91.1, MCH 31.6, MCHC 34.7, RDW Std Deviation 45.5 H, RDW Coeff of Chucho 13.5, Plt Count 124 L, MPV 9.5, Immature Gran % (Auto) 0.400, Neut % (Auto) 41.5 L, Lymph % (Auto) 52.1 H, [place] % (Auto) 5.2, Eos % (Auto) 0.4, Baso % (Auto) 0.4, Absolute Neuts (auto) 3.2, Absolute Lymphs (auto) 4.07, Nucleated RBC % 0, PT 13.7, INR 1.0, APTT 25.8, Sodium 140, Potassium 4.4, Chloride 106, Carbon Dioxide 21.3, Anion Gap 13, BUN 21 H, Creatinine 1.15, Estim Creat Clear Calc 56.26, Est GFR (MDRD) Non- Af 64, BUN/Creatinine Ratio 18.3, Glucose 99, Calcium 9.4, Magnesium 2.2, T roponin T High Sens 39 H 11/25/24 20:11: POC Glucose 120 H 11/25/24 21:55: Troponin T Hi Sens 2 Hr 36 H 11/26/24 00:13: Troponin T Hi Sens 4Hr 35 H 11/26/24 06:10: WBC 6.3, RBC 4.33 L, Hgb 13.6, Hct 39.9 L, MCV 92.1, MCH 31.4, MCHC 34.1, RDW Std Deviation 45.8 H, RDW Coeff of Chucho 13.4, Plt Count 102 L, MPV 9.3, Immature Gran % (Auto) 0.200, Neut % (Auto) 47.8, Lymph % (Auto) 46.7 H, [place] % (Auto) 4.5, Eos % (Auto) 0.5, Baso % (Auto) 0.3, Absolute Neuts (auto) 3.0, Absolute Lymphs (auto) 2.94, Nucleated RBC % 0.3, Sodium 141, Potassium 4.5, Chloride 111 H, Carbon Dioxide 21.7, Anion Gap 9, BUN 16, Creatinine 0.94, Estim Creat Clear Calc 68.23, Est GFR (MDRD) Non-Af 82, BUN/Creatinine Ratio 17.5, Glucose 96, Hemoglobin A1c 5.3, Calcium 8.8, Total Bilirubin 0.71, AST 24, ALT 22, Alkaline Phosphatase 74, Total Protein 5.4 L, Albumin 3.6, Globulin 1.8 L, Albumin/Globulin Ratio 2.0, Triglycerides 46, Cholesterol 101, LDL Cholesterol, Calc 51, VLDL Cholesterol 9, HDL Cholesterol 41, Cholesterol/HDL Ratio 2.48, TSH 1.040 Imaging Radiology Impression Brain CT 11/25/24 20:13 IMPRESSION: No acute intracranial finding. Dr. Fam discussed these findings via telephone with Dr. Clifford at 8:31 pm on 11/25/24. Reading Location: [facility] Chest X-Ray 11/25/24 20:13 IMPRESSION: No significant change since last exam. Reading Location: [facility] Head/Neck CTA 11/25/24 20:14 IMPRESSION: No large vessel occlusion, aneurysm or AVM. Reading Location: [facility] Active Medications Active Medications Active Medications: Current Medications Generic Name Dose Route Start Last Admin Trade Name Freq PRN Reason Stop Dose Admin Acetaminophen 650 mg 11/25/24 22:33 Acetaminophen 325 Mg Tablet PO Q4H PRN PRN Fever, pain 1-10/10 Al Hydroxide/Mg Hydroxide 30 ml 11/25/24 22:33 Mag Hydrox/Al Hydrox/Simeth 30 Ml Udc PO Q6H PRN PRN Gastric Burning Albuterol Sulfate 2.5 mg 11/25/24 22:33 Albuterol 2.5 Mg/3 Ml Vial.Neb. INHALATION Q2H PRN PRN Dyspnea, wheezing Albuterol/Ipratropium 3 ml 11/26/24 08:45 Ipratropium/Albuterol Sulfate 3 Ml Ampul.Neb INHALATION Q6HWA.RT SHANNON Aspirin 81 mg 11/26/24 08:00 11/26/24 09:57 Aspirin 81 Mg Tab.Chew PO 81 mg BREAKFAST SHANNON Administration Atorvastatin Calcium 40 mg 11/25/24 22:33 11/25/24 23:46 Atorvastatin Calcium 40 Mg Tablet PO 40 mg QHS SHANNON Administration Azithromycin 250 mg 11/26/24 10:00 11/26/24 10:07 Azithromycin 250 Mg Tablet PO 250 mg DAILY SHANNON Administration Budesonide 0.5 mg 11/25/24 22:33 Budesonide Respules 0.5 Mg/2 Ml Ampul.Neb. INHALATION BID.RT SHANNON Enoxaparin Sodium 40 mg 11/26/24 10:00 11/26/24 09:55 Enoxaparin 40 Mg/0.4 Ml Syringe SC 40 mg DAILY SHANNON Administration Guaifenesin 20 ml 11/25/24 22:33 Guaifenesin 10 Ml Udc (200mg/10ml) PO Q4H PRN PRN COUGH Hydralazine HCl 5 mg 11/25/24 22:33 Hydralazine 20 Mg/Ml Vial IV 11/26/24 22:33 Q30M PRN maintain BP parameters with HR <60 Sodium Chloride 250 mls @ 15 mls/hr 11/25/24 22:42 IV .[id number] PRN Saline Flush Sodium Chloride 250 mls @ 15 mls/hr 11/25/24 22:42 IV .[id number] PRN Additional IVPB Infusion Labetalol HCl 10 - 20 mg 11/25/24 22:33 Labetalol 20 Mg/4 Ml Vial IV 11/26/24 22:33 Q10M PRN PRN maintain BP parameters with HR >/=60 Melatonin 3 mg 11/25/24 22:33 Melatonin 3 Mg Tablet PO QHS PRN PRN INSOMNIA Montelukast Sodium 10 mg 11/26/24 10:00 11/26/24 09:56 Montelukast 10 Mg Tablet PO 10 mg DAILY SHANNON Administration Nortriptyline HCl 50 mg 11/25/24 23:00 11/26/24 09:56 Nortriptyline 25 Mg Capsule PO 50 mg BID SHANNON Administration Ondansetron HCl 4 mg 11/25/24 22:33 Ondansetron 4 Mg/2 Ml Vial IV Q8H PRN PRN NAUSEA/VOMITING Pantoprazole Sodium 40 mg 11/26/24 10:00 11/26/24 09:56 Pantoprazole Sodium 40 Mg Tablet PO 40 mg DAILY SHANNON Administration Polyethylene Glycol 17 gm 11/25/24 22:33 Polyethylene Glycol 3350 17 Gm Packet PO DAILY PRN PRN Constipation Prochlorperazine Edisylate 5 mg 11/25/24 22:33 Prochlorperazine 10 Mg/2 Ml Vial IV Q4H PRN PRN Breakthrough Nausea/Vomiting Sodium Chloride 10 - 40 ml 11/25/24 22:42 0.9% Saline Lock 10 Ml Syringe IV UD PRN SALINE FLUSH Tamsulosin HCl 0.4 mg 11/25/24 22:33 11/25/24 23:46 Tamsulosin Hcl 0.4 Mg Capsule PO 0.4 mg QHS SHANNON Administration NIHSS NIHSS Nursing Documentation NIHSS Nursing Documentation: NIH Stroke Scale Start: 11/25/24 20:09 Freq: Status: Discharge Protocol: Activity Type Activity Date Activity User E-sign Co-sign Detail Recorded Client Recorded Date Recorded By Document 11/25/24 20:09 ET [id number] 11/25/24 20:10 ET 11/25/24 20:09 NIH Stroke Scale [NIHSS] A score of 0 is normal or asymptomatic . Total possible score is 42. Inpatient: RN or Physician to activate a stroke alert for onset of new stroke symptoms or with NIHSS increase >/= 3 points. Following change in neurological status, NIHSS will be performed per physician order or more frequently PRN. -1a. Level of Consciousness 0 - Alert; keenly responsive -1b. LOC Questions 0 - Answers BOTH questions correctly -1c. LOC Commands 0 - Performs BOTH tasks correctly -2. Best Gaze 0 - Normal -3. Visual 0 - No visual loss -4. Facial Palsy 0 - Normal symmetrical movements -5a. Left Arm 0 - No drift; arm holds 90 ( or 45) degrees for full 10 seconds -5b. Right Arm 0 - No drift; arm holds 90 ( or 45) degrees for full 10 seconds -6a. Left Leg 0 - No drift; leg holds 30- degree position for full 5 seconds -6b. Right Leg 0 - No drift; leg holds 30- degree position for full 5 seconds -7. Limb Ataxia 0 - Absent -8. Sensory 0 - Normal; no sensory loss -9. Best Language 0 - No aphasia; normal -10. Dysarthria 0 - Normal -11. Extinction and Inattention 0 - No abnormality -Total 0 Query Text:A score of 0 is normal or asymptomatic. Total possible score is 42 . ED: Notify Physician for NIHSS increase by > / = 3 points. Inpatient: RN or Physician to activate a stroke alert for NIHSS increase of > / = 3 points. NIHSS: Ischemic Stroke/TIA Start: 11/25/24 22:33 Text: For PCU Patients: NIH and Neuro Check every 4 Status: Active hours, PRN and with change in RN caregiver. Freq: [id number] Protocol: Activity Type Activity Date Activity User E-sign Co-sign Detail Recorded Client Recorded Date Recorded By Document 11/26/24 10:00 AD [id number] 11/26/24 10:12 AD 11/26/24 10:00 -1a. Level of Consciousness 0 - Alert; keenly responsive -1b. LOC Questions 0 - Answers BOTH questions correctly -1c. LOC Commands 0 - Performs BOTH tasks correctly -2. Best Gaze 0 - Normal -3. Visual 0 - No visual loss -4. Facial Palsy 0 - Normal symmetrical movements -5a. Left Arm 0 - No drift; arm holds 90 ( or 45) degrees for full 10 seconds -5b. Right Arm 0 - No drift; arm holds 90 ( or 45) degrees for full 10 seconds -6a. Left Leg 0 - No drift; leg holds 30- degree position for full 5 seconds -6b. Right Leg 0 - No drift; leg holds 30- degree position for full 5 seconds -7. Limb Ataxia 0 - Absent -8. Sensory 0 - Normal; no sensory loss -9. Best Language 0 - No aphasia; normal -10. Dysarthria 0 - Normal -11. Extinction and Inattention 0 - No abnormality -Total 0 Query Text:A score of 0 is normal or asymptomatic. Total possible score is 42 . ED: Notify Physician for NIHSS increase by > / = 3 points. Inpatient: RN or Physician to activate a stroke alert for NIHSS increase of > / = 3 points. Coma Scale [Assess] -Eye Opening Spontaneous -Motor Obeys Commands -Verbal Oriented [Total] -Coma Scale Total 15
[2024-11-26] MEDS: Ipratropium/Albuterol Sulfate 3 ML AMPUL.NEB INHALATION (13:00)
[2024-11-26] MEDS: Budesonide Respules 0.5 MG/2 ML AMPUL.NEB. INHALATION (19:23)
[2024-11-26] MEDS: Tamsulosin HCl 0.4 MG Capsule PO (21:28)
[2024-11-26] MEDS: Atorvastatin Calcium 40 MG Tablet PO (21:28)
--- NOTE | 2024-11-26 22:33 | MRI_ITS ---
EXAM: MR brain without contrast. CLINICAL HISTORY: TIA/CVA. COMPARISON: CTA head and neck, CT head 10/2024. TECHNIQUE: MRI of the brain was performed according to standard departmental protocol utilizing: Sagittal and axial T1, axial FLAIR, fat saturated fast spin echo axial T2, Susceptibility. FINDINGS: The ventricles, sulci, and cisterns are age-appropriate in size. There is no evidence of acute intracranial bleed. There is no midline shift, mass effect, or extra-axial collection. No area of restricted diffusion are identified on DWI images. No abnormal T2 bright signal in the white matter is identified. Mild scattered T2 bright lesions throughout the white matter, compatible with chronic microvascular ischemic changes. The basal ganglia, brionna, pituitary, corpus callosum and cerebellum appear normal. Small left maxillary retention cyst or polyp. The visualized paranasal sinuses, mastoids, and orbits are otherwise unremarkable. Prior ocular lens replacements. The flow voids of the major intracranial vessels are better evaluated on recent CTA. The visualized extracranial structures, within limits of technique, are not otherwise remarkable. MRI/Brain without Contrast IMPRESSION: No acute intracranial finding. Chronic findings as described. Reading Location: [id number]
[2024-11-27 03:48] VITALS: BMI 29.9
[2024-11-27 04:00] VITALS: BP 137/67; PULSE 78; RESP 16; TEMP 36.5; O2SAT 93
--- NOTE | 2024-11-27 04:00 | NURSING ---
This RN assuming care of patient at this time
[2024-11-27 04:23] VITALS: BMI 29.9
[2024-11-27 06:00] VITALS: BP 139/77; PULSE 79; RESP 18; TEMP 35.6; O2SAT 92
[2024-11-27] MEDS: Budesonide Respules 0.5 MG/2 ML AMPUL.NEB. INHALATION (07:13)
[2024-11-27 07:15] VITALS: PULSE 76; RESP 18; O2SAT 96
[2024-11-27 07:52] VITALS: BP 131/72; PULSE 77; RESP 14; TEMP 36.4; O2SAT 93
[2024-11-27] MEDS: Aspirin 81 MG TAB.CHEW PO (08:33)
[2024-11-27] MEDS: Enoxaparin 40 MG/0.4 ML Syringe SC (08:33)
[2024-11-27] MEDS: Nortriptyline 25 MG Capsule 50 MG PO (08:33)
[2024-11-27] MEDS: Montelukast 10 MG Tablet PO (08:34)
[2024-11-27] MEDS: Pantoprazole Sodium 40 MG Tablet PO (08:34)
[2024-11-27] MEDS: Azithromycin 250 MG Tablet PO (08:38)
--- NOTE | 2024-11-27 09:30 | CASEMGMT ---
Met with patient to complete LEONARDO form. LEONARDO form and its content were verbally explained and patient's questions were answered to the best of my ability.? Patient voiced understanding and signed LEONARDO form.? Patient provided a copy of signed LEONARDO form and original placed in patient's chart.? Patient had no further questions. Cheyanne Song, Discharge Planning Asst
--- NOTE | 2024-11-27 10:57 | DS.PCM_ITS ---
Providers Date of Admission: 11/25/24 Date of Discharge: 11/27/24 Primary Care Physician: Dr. Tre García MD Consultations 11/25/24 22:33 Consult: Tele-Neurology Routine Consulting Provider: [facility] Reason for Consult: Acute Ischemic Stroke/TIA EMERGENT Consult: No MD Notified: Yes Date Notified: 11/26/24 Time Notified: 01:25 Method of Notification: Answering Service Nursing Unit Staff Notify [facility] of Tele-Neurology Consult: Yes Reason For Visit: TIA/CVA Diagnosis Discharge Diagnosis (1) Change in vision: Status: Acute Code(s): H53.9 - Unspecified visual disturbance (2) Dizziness: Status: Acute Code(s): R42 - Dizziness and giddiness (3) Elevated troponin: Status: Acute Code(s): R79.89 - Other specified abnormal findings of blood chemistry Medications at Discharge Home Medications polyethylene glycol 3350 17 gram oral powder packet 17 g PO DAILY PRN Constipation 04/19/13 lisinopril 5 mg tablet 5 mg PO DAILY 08/28/20 tamsulosin 0.4 mg capsule 0.4 mg PO QHS 06/16/21 montelukast 10 mg tablet 10 mg PO DAILY 05/06/23 nortriptyline 50 mg capsule 50 mg PO BID 06/02/23 omeprazole 10 mg capsule,delayed release 40 mg PO DAILY 06/02/23 azithromycin 250 mg tablet 250 mg PO DAILY 11/25/24 budesonide 160 mcg-glycopyr 9 mcg-formot 4.8 mcg/actuation HFA inhaler (Breztri Aerosphere) 2 inh inhalation BID 11/25/24 aspirin 81 mg chewable tablet 81 mg PO BREAKFAST #0 tabs 11/27/24 Hospital Course Procedures 2-D Echocardiogram, EKG and - (CTA head and neck/CT brain/chest x-ray/MRI brain) Summary of Care Provided Minutes Spent on Discharge: 38 Hospital Course: Mr. Rodríguez is an 79-year-old highly functioning white male with history of hypertension hyperlipidemia who presented to the emergency department at [facility] on 11/25/2024 with chief complaint of transient blurred vision and vertigo. Patient reported that he had symptoms abruptly while he was watching television. He had the sensation that the room was spinning. He had vertigo previously but it was very different from what he experienced prior to presentation. Symptoms lasted for about an hour and a half which prompted evaluation in the emergency department. NIH at the time of presentation was 0 and he was not a candidate for tenecteplase. CT of the brain was unremarkable for any acute findings. CTA of the head and neck showed no LVO's, aneurysm, or AVM with no significant stenosis. Chest x-ray was unremarkable for any acute findings. Vital signs on presentation showed temperature of 97.9, heart rate 85, respiratory rate 13, blood pressure 133/74 and pulse ox was 93% on room air. CBC was unremarkable. Chemistry panel was unremarkable other than he appeared slightly dehydrated with a BUN of 21 and a serum creatinine of 1.15. Initial troponin was 39 with subsequent troponin at 2 hours being 36 and a 4-hour troponin at 35 without EKG changes or chest pain. He was admitted to PCU for ongoing stroke workup. MRI was obtained on 11/26/2024 and was unremarkable. His hemoglobin A1c was 5.3. Lipid panel showed a total cholesterol of 101 with an LDL of 51 and an HDL of 41. TSH was 1.04. Echocardiogram was performed on the a.m. of 11/27/2024 was WNL. Patient was evaluated by neurology and they felt that this was very unlikely cerebrovascular event and probably related to presyncope versus hypertensive crisis but recommended ASA 81 mg and ongoing BP goal or 130/80 or less. Patient's blood pressure on no medication while he was hospitalized was fairly unremarkable. Given his negative workup he was instructed to follow-up with his primary care physician and neurology after discharge and able to be discharged home in stable condition on 11/27/2024 with no medication changes. Discharge diagnoses: Change in vision/blurred Vertigo Thrombocytopenia Essential hypertension Hyperlipidemia CKD stage II Elevated troponin Asthma Allergic rhinitis COPD Anxiety Depression Chronic low back pain GERD BPH with obstruction History of tobacco abuse Obesity Physical Exam Narrative Patient continues to feel well. Dizziness and vision changes continue to be resolved. Have been resolved since emergency department. Anxious to go home. We reviewed his echocardiogram. Const alert, oriented x3, no apparent distress, average body habitus, no limitations, healthy appearing and well nourished Constitutional Narrative: Very pleasant, older, white male, appears younger than stated age, sitting up in chair at the bedside watching television, appears comfortable, nontoxic General Appearance: cooperative, comfortable, well kempt and well developed Exam Limitations: no limitations Nutritional Appearance: obese HEENT normocephalic, head/scalp atraumatic and moist oral mucous membranes; Negative for hearing grossly normal bilaterally HEENT Narrative: Mild hearing loss, Mallampati 2, no thrush Eyes conjunctivae normal Eyes Narrative: No scleral icterus Neck supple Neck Narrative: Trachea midline Resp normal respiratory effort, no retractions, no use of accessory muscles and clear to auscultation bilaterally Auscultation: Negative for crackles, rhonchi or wheezes Cardio regular rate, regular rhythm, S1 normal heart sound, S2 normal heart sound, no murmurs, no rub, no gallops and no clicks GI normal to inspection, nondistended, normoactive bowel sounds, soft to palpation and non-tender Extremity no clubbing, cyanosis or edema Extremity Narrative: 2+ pedal and radial pulses Skin skin turgor normal and no jaundice Skin Narrative: Scattered ecchymosis in various stages of healing upper and lower extremities Neuro oriented x3, CN's II-XII intact bilaterally, moves all extremities and no focal motor deficits Speech: speech normal Psych affect normal Psych Narrative: Very pleasant, interacts appropriately Weight / BMI Weight Weight: 89.4 kg Body Mass Index (BMI) 29.9 ABG / Lab / Microbiology Data 11/26/24 06:10 11/26/24 06:10 Radiography Diagnostic Testing: Radiology Impression Brain MRI 11/26/24 22:33 IMPRESSION: No acute intracranial finding. Chronic findings as described. Reading Location: [id number] Instructions Discharge Diet: Low fat / Low cholesterol Discharge Activity: Return to Normal Activity DC O2, CPAP, BIPAP Needs Home O2 Discharge instructions: No Meaningful Use Info Meaningful Use Meaningful Use Diagnoses (Choose all that apply): None applicable Ischemic Stroke Statin Dosing Therapy Reference: STATIN DOSE THERAPY REFERENCE: * Patients > 75 years receive moderate or high dose statin therapy. * Patients 75 years or YOUNGER should receive HIGH intensity statin dose unless contraindicated. You will be required to document reason for non-treatment if statin daily dose does not meet guidelines. HIGH DOSE STATIN THERAPY DAILY Atorvastatin > than or = to 40 mg Rosuvastatin > than or = to 20 mg Amlodipine + Atorvastatin > than or = to 2.5/40 mg Ezetimibe + Simvastatin 10/80 mg Simvastatin 80mg Discharge Plan Admission Admit Date/Time: 11/25/24 21:27 Primary Reason for Your Visit: Vertigo/dizziness Attending Provider: Marilin Avila Primary Care Provider: Tre García Chi Consulting Providers: Norman Cerda; Dk Baltazar; Lila López; Jacqui Tinajero; Edie Lombardo; Tyler Perdomo; Jenni Lugo; Jeffery Zee; Souleymane Levin; Arcenio Schultz; Alley Prince; Kaushik Carter; Lisa Kennedy; David Cooley; Christiano Cabral; Nikko Child; Esperanza Springer; Jah Carey; Khushbu Avila; Ace Alexander; Megan Garcia Discharge Orders/Prescriptions Prescriptions: New aspirin 81 mg Tablet,Chewable 81 mg PO BREAKFAST Qty: 0 0RF Continued montelukast 10 mg tablet 10 mg PO DAILY nortriptyline 50 mg capsule 50 mg PO BID polyethylene glycol 3350 17 GM powder in packet 17 g PO DAILY PRN (Reason: Constipation) Patient Comments: constipation lisinopril 5 MG tablet 5 mg PO DAILY omeprazole 10 mg capsule,delayed release(DR/EC) 40 mg PO DAILY tamsulosin 0.4 mg capsule 0.4 mg PO QHS Breztri Aerosphere 160-9-4.8 mcg/actuation HFA aerosol inhaler 2 inh INHALATION BID azithromycin 250 mg tablet 250 mg PO DAILY Referrals / Follow Up: Tyler Perdomo MD [Med Staff - Contracted] - Within 2 Weeks Tre García Chi, MD [Primary Care Provider] - Disposition Disposition (needs filled in before D/C Order can be placed): Home, Self Care Charges/Coding Visit Charges Inpatient E&M: 42003 Disch Hosp >30min
--- NOTE | 2024-11-27 11:25 | CASEMGMT ---
SW did not complete a PHQ 9 as patient did not have a Stroke. Halima PATEL
--- NOTE | 2024-11-27 11:53 | STROKE.PNOTE ---
Objective Data Objective Data Vital Signs: Vital Signs Temp Pulse Resp BP Pulse Ox O2 Del Method 97.6 F L 77 14 131/72 H 93 Room Air 11/27/24 07:52 11/27/24 07:52 11/27/24 07:52 11/27/24 07:52 11/27/24 07:52 11/27/24 08:04 Oxygen Delivery Method Room Air Weight: 89.4 kg Body Mass Index (BMI) 29.9 Intake & Output: Intake and Output for Last 24 Hours 11/25/24 11/26/24 11/27/24 23:59 23:59 23:59 Intake Total 1000 / 1100 1580 / 1580 Output Total 0 / 0 Balance 1000 / 1100 1580 / 1580 Lab / Micro Data 11/26/24 06:10 11/26/24 06:10 Radiography Diagnostic Testing: Radiology Impression Brain MRI 11/26/24 22:33 IMPRESSION: No acute intracranial finding. Chronic findings as described. Reading Location: [facility] Physical Exam Neuro Neuro Narrative: Awake, alert, oriented X3 CN 2-12 intact Motor: 5/5 Sensation: Intact No ataxia Subject: Neurology Subjective JOANIE CABRERA is a 79 year old M, who we are seeing in consultation today for advice on the management of stroke like symptoms. He is a former tobacco use, CKD, BPH with obstructive pathology, HTN, HLD, Anxiety and Depression, Chronic lumbar back pain, Asthma with allergic rhinitis, GERD who presents to the [facility] ED on 11/25/2024 with visual disturbances, vertigo and generalized weakness. He was at home watching tv when his vision got fuzzy and saw squiggles, then room started spinning, generalized weakness and had a hard time getting words out but could speak. Never happened before. Per family SBP 190s at that time. It lasted about 30min and returned to baseline. CTH/CTA neg. EEG Results Procedure Details EEG Procedure Details: JOANIE CABRERA is a 79 year old M with a past medical history of , who presents for evaluation of Electroencephalogram on DATE at TIME Assessment and Plan: Stroke Assessment/Plan JOANIE CABRERA is a 79 M with a history of former tobacco use, CKD, BPH with obstructive pathology, HTN, HLD, Anxiety and Depression, Chronic lumbar back pain, Asthma with allergic rhinitis, GERD who presents for evaluation of generalized weakness, visual disturbances. Neurological examination shows normal examination. Neuroimaging shows Brain: negative for acute stroke, CTA: Negative. Suspect could have been from transient hypertension. Continue ASA Aim normotension NIHSS NIHSS Nursing Documentation NIHSS Nursing Documentation: NIH Stroke Scale Start: 11/25/24 20:09 Freq: Status: Discharge Protocol: Activity Type Activity Date Activity User E-sign Co-sign Detail Recorded Client Recorded Date Recorded By Document 11/25/24 20:09 ET [id number] 11/25/24 20:10 ET 11/25/24 20:09 NIH Stroke Scale [NIHSS] A score of 0 is normal or asymptomatic . Total possible score is 42. Inpatient: RN or Physician to activate a stroke alert for onset of new stroke symptoms or with NIHSS increase >/= 3 points. Following change in neurological status, NIHSS will be performed per physician order or more frequently PRN. -1a. Level of Consciousness 0 - Alert; keenly responsive -1b. LOC Questions 0 - Answers BOTH questions correctly -1c. LOC Commands 0 - Performs BOTH tasks correctly -2. Best Gaze 0 - Normal -3. Visual 0 - No visual loss -4. Facial Palsy 0 - Normal symmetrical movements -5a. Left Arm 0 - No drift; arm holds 90 ( or 45) degrees for full 10 seconds -5b. Right Arm 0 - No drift; arm holds 90 ( or 45) degrees for full 10 seconds -6a. Left Leg 0 - No drift; leg holds 30- degree position for full 5 seconds -6b. Right Leg 0 - No drift; leg holds 30- degree position for full 5 seconds -7. Limb Ataxia 0 - Absent -8. Sensory 0 - Normal; no sensory loss -9. Best Language 0 - No aphasia; normal -10. Dysarthria 0 - Normal -11. Extinction and Inattention 0 - No abnormality -Total 0 Query Text:A score of 0 is normal or asymptomatic. Total possible score is 42 . ED: Notify Physician for NIHSS increase by > / = 3 points. Inpatient: RN or Physician to activate a stroke alert for NIHSS increase of > / = 3 points. NIHSS: Ischemic Stroke/TIA Start: 11/25/24 22:33 Text: For PCU Patients: NIH and Neuro Check every 4 Status: Complete hours, PRN and with change in RN caregiver. Freq: [id number] Protocol: Activity Type Activity Date Activity User E-sign Co-sign Detail Recorded Client Recorded Date Recorded By Document 11/27/24 08:00 [id number] 11/27/24 11:37 SS 11/27/24 08:00 -1a. Level of Consciousness 0 - Alert; keenly responsive -1b. LOC Questions 0 - Answers BOTH questions correctly -1c. LOC Commands 0 - Performs BOTH tasks correctly -2. Best Gaze 0 - Normal -3. Visual 0 - No visual loss -4. Facial Palsy 0 - Normal symmetrical movements -5a. Left Arm 0 - No drift; arm holds 90 ( or 45) degrees for full 10 seconds -5b. Right Arm 0 - No drift; arm holds 90 ( or 45) degrees for full 10 seconds -6a. Left Leg 0 - No drift; leg holds 30- degree position for full 5 seconds -6b. Right Leg 0 - No drift; leg holds 30- degree position for full 5 seconds -7. Limb Ataxia 0 - Absent -8. Sensory 0 - Normal; no sensory loss -9. Best Language 0 - No aphasia; normal -10. Dysarthria 0 - Normal -11. Extinction and Inattention 0 - No abnormality -Total 0 Query Text:A score of 0 is normal or asymptomatic. Total possible score is 42 . ED: Notify Physician for NIHSS increase by > / = 3 points. Inpatient: RN or Physician to activate a stroke alert for NIHSS increase of > / = 3 points. Coma Scale [Assess] -Eye Opening Spontaneous -Motor Obeys Commands -Verbal Oriented [Total] -Coma Scale Total 15 NIHSS 1a. Level of Consciousness: 0 - Alert; keenly responsive 1b. LOC Questions: 0 - Answers BOTH questions correctly 1c. LOC Commands: 0 - Performs BOTH tasks correctly 2. Best Gaze: 0 - Normal 3. Visual: 0 - No visual loss 4. Facial Palsy: 0 - Normal symmetrical movements 5a. Left Arm: 0 - No drift; arm holds 90 (or 45) degrees for full 10 seconds 5b. Right Arm: 0 - No drift; arm holds 90 (or 45) degrees for full 10 seconds 6a. Left Le - No drift; leg holds 30-degree position for full 5 seconds 6b. Right Le - No drift; leg holds 30-degree position for full 5 seconds 7. Limb Ataxia: 0 - Absent 8. Sensory: 0 - Normal; no sensory loss 9. Best Language: 0 - No aphasia; normal 10. Dysarthria: 0 - Normal 11. Extinction and Inattention: 0 - No abnormality Total: 0
--- NOTE | 2024-11-27 11:59 | PHA.DC.MR.R ---
[facility]con[facility] has performed discharge medication reconciliation for this patient. The patient's discharge medication list was reviewed for discrepancies and discrepancies were resolved. Medications at Discharge Home Medications polyethylene glycol 3350 17 gram oral powder packet 17 g PO DAILY PRN Constipation 04/19/13 lisinopril 5 mg tablet 5 mg PO DAILY 08/28/20 tamsulosin 0.4 mg capsule 0.4 mg PO QHS 06/16/21 montelukast 10 mg tablet 10 mg PO DAILY 05/06/23 nortriptyline 50 mg capsule 50 mg PO BID 06/02/23 omeprazole 10 mg capsule,delayed release 40 mg PO DAILY 06/02/23 azithromycin 250 mg tablet 250 mg PO DAILY 11/25/24 budesonide 160 mcg-glycopyr 9 mcg-formot 4.8 mcg/actuation HFA inhaler (Breztri Aerosphere) 2 inh inhalation BID 11/25/24
[2024-11-27 12:39] VITALS: BMI 29.9
--- NOTE | 2024-11-27 14:12 | CASEMGMT ---
Patient has order for discharge. RN CM in to discuss needs at discharge. Patient denies need or help at discharge. Patient had no further questions or concerns.
[2024-11-27 14:46] VITALS: BP 124/65; PULSE 90; RESP 16; O2SAT 94
== END 2024-11-27 11:03 | disposition home or self-care (01) ==
LOC: ED 21:41 → PCU 21:58
PROVIDERS: Admitting Provider Family Medicine; Emergency Provider Emergency Medicine; PCP Family Medicine Geriatric Medicine; Referring Provider Emergency Medicine; Visit Provider Internal Medicine
DX: H53.8 Other visual disturbances (principal); J44.89 Other specified chronic obstructive pulmonary disease; F41.9 Anxiety disorder, unspecified; Z68.30 Body mass index [BMI] 30.0-30.9, adult; E78.5 Hyperlipidemia, unspecified; K21.9 Gastro-esophageal reflux disease without esophagitis; Z87.891 Personal history of nicotine dependence; J30.9 Allergic rhinitis, unspecified; D69.6 Thrombocytopenia, unspecified; N18.2 Chronic kidney disease, stage 2 (mild); F32.A Depression, unspecified; E66.9 Obesity, unspecified; I12.9 Hypertensive chronic kidney disease with stage 1 through stage 4 chronic kidney disease, or unspecified chronic kidney disease; Z79.899 Other long term (current) drug therapy; N40.1 Benign prostatic hyperplasia with lower urinary tract symptoms; N13.8 Other obstructive and reflux uropathy; R79.89 Other specified abnormal findings of blood chemistry
CPT/HCPCS: 36415; 70450; 70496; 70498; 70551; 71045; 80048; 80053; 80061; 82962; 83036; 83735; 84443; 84484; 85025; 85610; 85730; 93005; 93306; 94640; 94668; 94762; 96360; 96361; 96372; 97802; 99221; 99285; Q9967; A4216; G0378

== ENCOUNTER → 2024-11-29 | Outpatient (CLI) | payer MEDICARE, SELFPAY ==
[2024-09-15 08:14] VITALS: BMI 29.8
[2024-11-29 11:37] LABS: Hematocrit 43.1 % (40-54); Hemoglobin 14.9 g/dL (13.0-16.5); Immature Granulocytes Count 0.010 X10^3/uL (0.0-0.0); Mean Corp Hgb Conc 34.6 g/dL (32-36); Mean Corpuscular Volume 91.3 fL (80-94); Mean Platelet Vol. 9.2 fl (6.2-12.0); NRBC Flagged by Analyzer 0 % (0-5); Platelet Count 114 K/mm3 (150-450); RBC Distribution Width CV 13.2 % (11.6-14.6); RBC Distribution Width SD 44.9 fl (35.1-43.9); Red Blood Count 4.72 M/mm3 (4.6-6.2); White Blood Count 6.3 K/mm3 (4.4-11.0)
[2024-11-29 12:17] LABS: Prothrombin Time (Protime)PT. 14.1 SECONDS (11.7-14.9)
[2024-11-29 12:18] LABS: Fibrinogen 398 mg/dl (203-444); Partial Thromboplast Time 26.9 Seconds (24.1-36.2)
[2024-12-06 11:09] LABS: VWD Studies Interp Report Note (.)
== END | disposition home or self-care (01) ==
LOC: LAB 10:57
PROVIDERS: PCP Family Medicine Geriatric Medicine; Referring Provider Family Medicine Geriatric Medicine; Visit Provider Family Medicine Geriatric Medicine
DX: T14.8XXA Other injury of unspecified body region, initial encounter (principal)
CPT/HCPCS: 36415; 85025; 85240; 85245; 85246; 85384; 85610; 85730

== ENCOUNTER → 2025-01-02 | Outpatient (CLI) | payer MEDICARE, SELFPAY ==
[2024-09-15 08:14] VITALS: BMI 29.8
[2025-01-02 17:09] LABS: Hematocrit 44.2 % (40-54); Hemoglobin 14.9 g/dL (13.0-16.5); Immature Granulocytes Count 0.010 X10^3/uL (0.0-0.0); Immature Platelet Fraction 1.6 % (1.0-7.9); Immature Reticulocyte Fraction 5.60 % (3.00-15.90); Mean Corp Hgb Conc 33.7 g/dL (32-36); Mean Corpuscular Volume 93.1 fL (80-94); Mean Platelet Vol. 9.5 fl (6.2-12.0); NRBC Flagged by Analyzer 0 % (0-5); Platelet Count 117 K/mm3 (150-450); RBC Distribution Width CV 13.3 % (11.6-14.6); RBC Distribution Width SD 45.7 fl (35.1-43.9); Red Blood Count 4.75 M/mm3 (4.6-6.2); Reticulocyte Count 1.45 % (0.5-1.5); White Blood Count 6.2 K/mm3 (4.4-11.0)
[2025-01-02 17:28] LABS: Ferritin 424 ng/mL (37-417); LDH 217 U/L (87-241)
[2025-01-02 17:37] LABS: AST(SGOT) 27 U/L (<=37); Alanine Aminotransfer ALT/SGPT 27 U/L (<=46); Albumin, Serum 4.4 g/dL (3.4-4.8); Alkaline Phosphatase 94 U/L (40-129); Anion Gap 11 (5-15); BUN 22 mg/dL (4-19); BUN/Creat Ratio 20.6 RATIO (10-20); Calcium,Total 9.4 mg/dL (7.6-11.0); Carbon Dioxide 23.1 mmol/L (21.0-32.0); Chloride 106 mmol/L (98-108); Globulin 2.3 g/dL (2.2-4.2); Glucose 96 mg/dL (70-99); Potassium 4.6 mmol/L (3.3-5.1); Vitamin B12 411 pg/mL (180-914)
[2025-01-02 17:43] LABS: Partial Thromboplast Time 27.3 Seconds (24.1-36.2); Prothrombin Time (Protime)PT. 13.6 SECONDS (11.7-14.9)
[2025-01-02 17:53] LABS: CRP < 3.00 mg/L (0.0-3.0); Iron 131 ug/dL (65-175); Iron Binding Capacity,Total 252 ug/dL (250-450); Iron Binding Capacity,Unsat 121 ug/dL (228-428); Magnesium 2.3 mg/dL (1.5-2.2)
[2025-01-04 04:07] LABS: GGTP 15 IU/L (0-65)
== END | disposition home or self-care (01) ==
LOC: LAB 16:11
PROVIDERS: Referring Provider Internal Medicine Medical Oncology; Visit Provider Internal Medicine Medical Oncology
DX: D69.6 Thrombocytopenia, unspecified (principal)
CPT/HCPCS: 36415; 80053; 82607; 82668; 82728; 82977; 83013; 83540; 83550; 83615; 83735; 84100; 85025; 85045; 85610; 85652; 85730; 86140; 86704; 86705; 86706; 86707; 86803; 87340; 87350

== ENCOUNTER → 2025-01-24 | Outpatient (CLI) | payer MEDICARE, SELFPAY ==
[2024-09-15 08:14] VITALS: BMI 29.8
--- NOTE | 2025-01-24 09:43 | CT_ITS ---
PROCEDURE: BRAIN/HEAD WITHOUT CONTRAST 01/24/2025 REASON FOR EXAM: CLOSED HEAD INJURY TECHNIQUE: BRAIN/HEAD WITHOUT CONTRAST Coronal and Sagittal reconstruction series were provided. One or more dose reduction techniques were used (e.g., Automated exposure control, adjustment of the mA and/or kV according to patient size, use of iterative reconstruction technique. RADIATION DOSE SUMMARY: CTDlvol: 44.99 mGy DLP: 779.24 mGycm COMPARISON: Prior study dated August 15, 2023. FINDINGS: Brain: Low density in the periventricular white matter suggests mild chronic small vessel ischemic changes. CSF Spaces: Mild generalized cerebral atrophy Sinuses/Mastoids: Clear at visualized levels Bones: No fracture. CT/Brain/Head without Contrast IMPRESSION: CHRONIC CHANGES. NO ACUTE FINDINGS. Reading Location: [id number]
== END | disposition home or self-care (01) ==
LOC: CT 09:41
PROVIDERS: PCP Family Medicine Geriatric Medicine; Referring Provider Family Medicine Geriatric Medicine; Visit Provider Family Medicine Geriatric Medicine
DX: S81.002A Unspecified open wound, left knee, initial encounter (principal); Z22.39 Carrier of other specified bacterial diseases; S61.502A Unspecified open wound of left wrist, initial encounter; S09.90XA Unspecified injury of head, initial encounter
CPT/HCPCS: 70450; 87070; 87075; 87205; 87640

== ENCOUNTER 2025-01-25 09:55 | Outpatient (RCR) | payer MEDICARE, SELFPAY ==
[2024-09-15 08:14] VITALS: BMI 29.8
[2025-01-25 10:36] VITALS: BP 141/85; PULSE 80; RESP 18; TEMP 36.1
--- NOTE | 2025-01-25 12:00 | PCM.WC.HP ---
History of Present Illness Date of Service: 01/25/25 Chief Complaint: Left Forearm/Wrist and Left Knee Wound History of Wound: Mr. Rodríguez is an 80-year-old referred to the wound center by his primary care physician following a recent wound. Fell off his driveway landing on his left side with subsequent injury to his left forearm/wrist and left knee. Has been using some dressings which he had at home. Was also seen by his primary care physician and started on antibiotics. He had a head CT which was negative for bleed. No tobacco use/abuse. No history of diabetes. Stays active. Feels well otherwise, no acute concerns reported. FORMERLY [facility], [facility] Medical History (Updated 01/25/25 @ 12:[address] Beba Ahumada MD) History of fall Laceration of knee, left Easy bruising Thrombocytopenia Elevated troponin COPD (chronic obstructive pulmonary disease) Former tobacco use Obesity CKD (chronic kidney disease), stage II Allergic rhinitis Anxiety and depression Constipation Chronic low back pain BPH (benign prostatic hyperplasia) Hyperlipidemia Asthma COVID-19 Hypertension GERD (gastroesophageal reflux disease) Home Medications ?Medication ?Instructions ?Recorded ?Last Taken ?Type lisinopril 5 mg tablet 5 mg PO DAILY 08/28/20 Unknown History tamsulosin 0.4 mg capsule 0.4 mg PO QHS 06/16/21 Unknown History montelukast 10 mg tablet 10 mg PO DAILY 05/06/23 Unknown History nortriptyline 50 mg capsule 50 mg PO BID 06/02/23 Unknown History omeprazole 10 mg capsule,delayed 40 mg PO DAILY 06/02/23 Unknown History release budesonide 160 mcg-glycopyr 9 2 inh inhalation BID 11/25/24 Unknown History mcg-formot 4.8 mcg/actuation HFA inhaler (Breztri Aerosphere) azithromycin 250 mg tablet 250 mg PO DAILY Guard against 01/02/25 Unknown History infection COPD cholecalciferol (vitamin D3) 25 25 mcg PO DAILY Not sure 01/02/25 Unknown History mcg (1,000 unit) tablet (Vitamin D3) polyethylene glycol 3350 17 gram 17 g PO BID Constipation 01/02/25 Unknown History oral powder packet cephalexin 500 mg capsule 500 mg PO 4X/DAY 01/25/25 Unknown History doxycycline hyclate 100 mg tablet 100 mg PO BID 01/25/25 Unknown History Allergy/AdvReac Type Severity Reaction Status Date / Time No Known Allergies Allergy Verified 01/25/25 10:30 Family History Mother Depression CVA (cerebral vascular accident) Anxiety Hypertension Father Pancreatic cancer Surgical History Hx of tonsillectomy Hx of cataract extraction Social History household members: spouse Smoking Status: Former smoker how long ago did patient quit smoking: Quit 1974, smoked cigars only. alcohol intake: never substance use type: does not use ROS Constitutional Constitutional: Denies daytime sleepiness, fever(s), headache(s), increased appetite, lethargy or malaise Eyes Eyes: Denies change in eye color, discharge from eye(s), discongugate gaze, double vision, erythema, excessive blinking, exophthalmos or foreign body ENT HEENT: Denies dizziness, foreign body in nose, halitosis, headache(s), hoarseness or loss taste/smell Cardiovascular Cardiovascular: Denies claudication, cyanosis, diaphoresis, dyspnea, dyspnea at rest, fatigue or orthopnea Respiratory/Chest Respiratory/Chest: Denies difficulty clearing secretions, dyspnea, dyspnea on exertion, excessive phlegm production, hemoptysis or hoarseness Gastrointestinal Gastrointestinal: Denies anorexia, bloating, chewing difficulty, coffee ground emesis, cramping, dry heaves or excessive flatus Genitourinary Genitourinary: Denies abdominal discomfort, anuria, contractions or flank pain Musculoskeletal Musculoskeletal: Denies difficulty walking, muscle spasms, muscle weakness or tremors Integumentary Integumentary: Reports wounds; Denies bleeding lesions, change in pigmentation, furuncle, hirsutism, jaundice or skin swelling Neurologic Neurologic: Denies abnormal movements, abnormal speech, behavior changes, confusion, focal weakness or lack of coordination Psychiatric Psychiatric: Denies auditory hallucinations, behavioral changes, confusion, hallucinations, hopelessness, tactile hallucinations or visual hallucinations Endocrine Endocrinology: Denies cold intolerance, deepening of the voice, excessive sweating, fatigue, flushing or heat intolerance Hematologic/Lymphatic Hematologic/Lymphatic: Reports easy bruising Allergic/Immunologic Allergic/Immunologic: Denies lip swelling, throat swelling, tongue swelling, hives, eczemia or wheezing Vital Signs Vital Signs Vital Signs: 01/25/25 10:36 Temperature 96.9 F L Temperature Source Temporal Pulse Rate 80 Respiratory Rate 18 Blood Pressure 141/85 H Blood Pressure Mean 103 Blood Pressure Source Monitor Blood Pressure Position Sitting Blood Pressure Location Right Arm Oxygen Delivery Method Room Air Physical Exam Const alert, oriented x3 and no apparent distress General Appearance: cooperative and comfortable HEENT normocephalic, head/scalp atraumatic and hearing grossly normal bilaterally Eyes EOMs intact bilaterally General Eye: normal appearance of both eyes Neck full ROM General: normal visual inspection Resp normal respiratory effort and normal air movement Effort and Inspection: able to speak in complete sentences Cardio regular rate, regular rhythm, S1 normal heart sound and S2 normal heart sound GI soft to palpation and non-tender Skin Wounds: wounds noted size Size: See clinical note, bed peeling and necrotic, margins well approximated, no odor and surrounding erythema Neuro CN's II-XII intact bilaterally, moves all extremities and no focal motor deficits Psych mental status grossly normal, thought process normal, cooperative and affect normal Debridement Note Debridement Note Wound debrided: Left forearm/wrist Type of Debridement: Excisional debridement Anesthesia Used: 5% Lidocaine Gel Depth: Down to and including healthy tissue and in the subcutaneous layer Percentage of wound debrided: 100 Instrument Used: 5mm curette, #15 blade and Forceps Tissue Removed: Devitalized tissue Severity: Fat Layer Exposed Amount of bleeding with debridement: Mild Bleeding Controlled with: Pressure Patient tolerated procedure: Patient tolerated procedure well Post-Debridement Measurements and Additional Note: Post-Debridement Measurements/Treatment - Nurse 1 - General Ulcer Assessment Start: 01/25/25 10:30 Freq: Status: Active Protocol: GILLIAN Activity Type Activity Date Activity User E-sign Co-sign Detail Recorded Client Recorded Date Recorded By Document 01/25/25 10:36 MERLYN [id number] 01/25/25 10:40 DS 01/25/25 10:36 - Today's Visit Information Type of service Initial Visit Arrival Mode Ambulatory Patient Identification Verified (Name & Yes ) Vital Signs Temperature (97.8 F-99.1 F) 96.9 F L Temperature Source Temporal Pulse Rate (60-100) 80 Pulse Location Monitor Respiratory Rate (12-18) 18 Respiratory rate source Observation Oxygen Delivery Method Room Air Blood Pressure (90/60-120/80) 141/85 H Blood Pressure Mean 103 Source Monitor Position Sitting Blood Pressure Location Right Arm Pain Scale: 0-10 Numeric Is Patient Pain Free? Yes Communication Assessment Preferred language [place] Photographer Lithographic Required No Able to Read Yes Able to Write Yes Communication Tools None Right Hearing Abillity Normal Left Hearing Abillity Normal Visual Assistive Devices Glasses Teaching Assessment Preferences Verbal Barriers to Learning None Readiness To Learn Excellent Willingness to Engage in Self Management High Activies Readiness to Engage in Self Management High Activities Anxiety Level Calm Cooperation Cooperative Perception Coherent Interest in Health Problem Asks Questions Education Importance Acknowledges Need Does Patient Smoke tobacco or other Yes substances Smoking Status Former smoker Is Patient Diabetic No Functional Assessment Recent Decline in Ability to Perform Denies Any Declines Culture/Restorationism/News Director Cultural/Restorationism Needs that may affect No Treatment Plan Teaching: Wound Center *Welcome to the Wound Center -Person Taught Patient -Teaching Method Discussion -Response to teaching Verbalize Understanding WC - Nurse 1 - General Ulcer Measurement Start: 01/25/25 10:30 Freq: Status: Active Protocol: Activity Type Activity Date Activity User E-sign Co-sign Detail Recorded Client Recorded Date Recorded By Document 01/25/25 10:40 DS [id number] 01/25/25 10:54 DS 01/25/25 10:40 Wound Center Nurse 1 #5 left wrist -Current Size (cm) - Length 1.5 -Current Size (cm) - Width 0.7 -Current Size (cm) - Depth 0.1 -Total Square Cm 1.05 -Date of Last Picture (Recall this 01/25/25 field) -Photo Taken Yes -Tunneling No -Undermining/Tunneling No -Circular Undermining No -Wound Margin Distinct, Outline Attached -Granulation Amt Large (67-100%) -Granulation Quality [place] -Slough/Fibrin No -Texture (Edie-wound Skin Appearance) Assessed -Moisture (Edie-wound Skin Appearance) Assessed -Color (Edie-wound Skin Appearance) Assessed -Temperature (Edie-wound Skin No Abnormality Appearance) (Pt Warm) -Ulcer Cleansing Soap and Water -Foul Odor after Cleansing No -Anesthetic Used 5% Lidocaine Gel #4 left knee -Current Size (cm) - Length 2.5 -Current Size (cm) - Width 2.5 -Current Size (cm) - Depth 0.1 -Total Square Cm 6.25 -Date of Last Picture (Recall this 01/25/25 field) -Photo Taken Yes -Tunneling No -Undermining/Tunneling No -Circular Undermining No -Exudate Amt Small -Exudate Type Serosanguineous -Wound Margin Distinct, Outline Attached -Granulation Amt Large (67-100%) -Granulation Quality [place] -Slough/Fibrin No -Texture (Edie-wound Skin Appearance) Assessed -Moisture (Edie-wound Skin Appearance) Assessed -Color (Edie-wound Skin Appearance) Assessed -Temperature (Edie-wound Skin No Abnormality Appearance) (Pt Warm) -Tenderness on Palpation (Edie-wound No Skin Appearance) -Ulcer Cleansing Soap and Water -Anesthetic Used 5% Lidocaine Gel WC - Nurse 2 - General Ulcer CM Notes Start: 01/25/25 10:30 Freq: Status: Active Protocol: Activity Type Activity Date Activity User E-sign Co-sign Detail Recorded Client Recorded Date Recorded By Document 01/25/25 11:12 [id number] 01/25/25 11:17 01/25/25 11:12 Wound Center Nurse 2 #5 left wrist -Time 11:12 -Correct Patient Yes -Correct Side, Site, Position Yes -Correct Procedure Yes -Procedure Performed Yes -Type of Procedure Debridement -Clinical Debridement Subcutaneous -Tissue Removed Subcutaneous -Post Debridement (cm) - Length 1.8 -Post Debridement (cm) - Width 1.0 -Post Debridement (cm) - Depth 0.1 -Total Square (Post) (cm) 1.80 -Area of Debridement (cm) - Length 1.8 -Area of Debridement (cm) - Width 1.0 -Total Square (Area) (cm) 1.80 -Tunneling No -Undermining/Tunneling No -Circular Undermining No -Wound/Ulcer Outcome Not Healed -Ulcer Cleansing Rinsed/ Irrigated with Saline -Foul Odor after Cleansing No -Bioengineered Tissue No -Bleeding Controlled with Pressure -Treatment Response Procedure Tolerated Well -Offloading No -Debridement - Subq, 1st 20sq cm No #4 left knee -Time 11:12 -Correct Patient Yes -Correct Side, Site, Position Yes -Correct Procedure Yes -Procedure Performed Yes -Type of Procedure Debridement -Clinical Debridement Subcutaneous -Tissue Removed Subcutaneous -Post Debridement (cm) - Length 3.0 -Post Debridement (cm) - Width 2.7 -Post Debridement (cm) - Depth 0.1 -Total Square (Post) (cm) 8.10 -Area of Debridement (cm) - Length 3.0 -Area of Debridement (cm) - Width 2.7 -Total Square (Area) (cm) 8.10 -Tunneling No -Undermining/Tunneling No -Circular Undermining No -Wound/Ulcer Outcome Not Healed -Ulcer Cleansing Rinsed/ Irrigated with Saline -Foul Odor after Cleansing No -Bioengineered Tissue No -Bleeding Controlled with Pressure -Treatment Response Procedure Tolerated Well -Offloading No -Debridement - Subq, 1st 20sq cm Yes Pain Scale: 0-10 Numeric Is Patient Pain Free? Yes - Nurse 3 - General Ulcer D/C NN Start: 01/25/25 10:30 Freq: Status: Active Protocol: Activity Type Activity Date Activity User E-sign Co-sign Detail Recorded Client Recorded Date Recorded By Document 01/25/25 11:25 MT [id number] 01/25/25 11:27 MT Edit Result 01/25/25 11:25 MT (1) [id number] 01/25/25 11:28 MT (1) #5 left wrist - Silicone Border Foam 4x4 1 => 2 #4 left knee - Silicone Border Foam 4x4 1 => 2 01/25/25 11:25 Wound Care Center Nurse 3 #5 left wrist -Foul Odor after Cleansing No -Negative Pressure Wound Therapy N/A -Primary Dressing Applied Fibracol Plus 4x4,Silicone Border Foam 4x4 -Fibracol Plus 4x4 1 -Silicone Border Foam 4x4 2 #4 left knee -Primary Dressing Applied Silicone Border Foam 4x4 -Silicone Border Foam 4x4 2 Pain Scale: 0-10 Numeric Is Patient Pain Free? Yes - Visit Discharge Discharge Condition Stable Ambulatory Status Ambulatory Transportation Private Auto Medication Reconcilliation completed & No provided to patient/care provider Clinical Summary of Care Provided Yes Notes: THE PT VERBALIZED UNDERSTANDING OF NEW ORDERS. Additional Wound Wound debrided: Left knee Type of Debridement: Excisional debridement Anesthesia Used: 5% Lidocaine Gel Depth: Down to and including healthy tissue Percentage of wound debrided: 100 Instrument Used: 5mm curette Tissue Removed: Devitalized tissue Severity: Limited To Skin Breakdown Amount of bleeding with debridement: Mild Bleeding Controlled with: Pressure Patient tolerated procedure: Patient tolerated procedure well Charges/Coding Visit Charges Office Visits / Consults: [id number] OV L3 Est 20min Procedures Integumentary [id number]: [id number] Angella subq tissue 20 sq cm/< Assessment/Plan Assessment/Plan (1) Laceration of left forearm: CODE(S): S51.812A - Laceration without foreign body of left forearm, initial encounter QUALIFIERS: Encounter type: initial encounter Qualified Code(s): S51.812A - Laceration without foreign body of left forearm, initial encounter (2) Laceration of knee, left: CODE(S): S81.012A - Laceration without foreign body, left knee, initial encounter QUALIFIERS: Encounter type: initial encounter Qualified Code(s): S81.012A - Laceration without foreign body, left knee, initial encounter (3) History of fall: CODE(S): Z91.81 - History of falling PLAN: Plan Debridement done as documented above, procedure was well-tolerated. No clinical concern for infection however as above, is currently on cephalexin and doxycycline prescribed by his primary care physician. Pain is improving. Started wound care with products he had at home. For now, will start on Fibracol to both areas daily. Cover with Adaptic and gauze/foam dressing. Change daily to twice daily depending on drainage. Elevate left lower extremity and upper extremity when seated. Adequate dietary/protein intake also recommended. His questions were answered and he was advised to let us know if he had any further questions or concerns. Follow-up in a week or sooner if needed. This note was generated with Open-Plugation software. It may contain incorrect words, spelling, and punctuation that were not noted in checking the note before signing.
--- NOTE | 2025-01-26 09:01 | WC ---
PHOTO-LEFT KNEE 01/25/25
--- NOTE | 2025-01-26 09:01 | WC ---
PHOTO-LEFT KNEE 01/25/25
--- NOTE | 2025-01-26 09:03 | WC ---
PHOTO-LEFT WRIST 01/25/25
--- NOTE | 2025-01-26 09:03 | WC ---
PHOTO-LEFT WRIST 01/25/25
== END 2025-01-28 23:59 | disposition home or self-care (01) ==
LOC: WC 09:55
PROVIDERS: PCP Family Medicine Geriatric Medicine; Referring Provider Family Medicine Geriatric Medicine; Visit Provider Internal Medicine
DX: S51.812A Laceration without foreign body of left forearm, initial encounter (principal); J44.9 Chronic obstructive pulmonary disease, unspecified; S81.012A Laceration without foreign body, left knee, initial encounter; W19.XXXA Unspecified fall, initial encounter; I12.9 Hypertensive chronic kidney disease with stage 1 through stage 4 chronic kidney disease, or unspecified chronic kidney disease; N18.2 Chronic kidney disease, stage 2 (mild); E78.5 Hyperlipidemia, unspecified; N40.0 Benign prostatic hyperplasia without lower urinary tract symptoms; K21.9 Gastro-esophageal reflux disease without esophagitis; Z91.81 History of falling; Z79.899 Other long term (current) drug therapy; Z87.891 Personal history of nicotine dependence
CPT/HCPCS: 11042; 99213; G0463

== ENCOUNTER 2025-02-03 14:23 | Emergency (ER) | payer MEDICARE, SELFPAY ==
[2024-09-15 08:14] VITALS: BMI 29.8
[2025-02-03 14:24] VITALS: BP 118/75; PULSE 112; RESP 16; TEMP 37.1; O2SAT 95; BMI 30.2
--- OUTSIDE RECORDS SUMMARY | 2025-02-03 16:16 | XMS RPT_ITS | CCD ---
Author Organization [facility] [employer] Care Team Providers Care De Ionizer Operator Name Role Phone Jd Solis MD Primary Care Provider Dr. Jd Solis Primary Care Provider Dr. Geovanny Naqvi Attending Provider Jd Solis MD Primary Care Provider [phone] Dr. Tre García Chi Primary Care Provider [phone] Ricky, Dr. Tre Jean Referring Provider [phone] Dr. Chacho Mcghee Attending Provider Ricky, Dr. Tre Jean Primary Care Provider [phone] Ricky, Dr. Tre Jean Referring Provider Dr. Chacho Mcghee Attending Provider Ricky, Tre Jean Primary Care Provider [phone] Jd Solis MD Primary Care Provider [phone] Dr. Tre García MD, Chi Attending Provider [phone] Tre García MD, Chi Referring Provider [phone] Messi RESIDENTIAL SALES EXECUTIVE-C, Kimberly Attending Provider Messi RESIDENTIAL SALES EXECUTIVE-C, Kimberly Other Provider Ricky ALFONSO, Dr. Tre Jean Primary Care Provider Ricky ALFONSO, Dr. Tre Jean Attending Provider Ricky ALFONSO, Dr. Tre Jean Referring Provider Ricky ALFONSO, Dr. Tre Jean Primary Care Provider Ricky ALFONSO, Dr. Tre Jean Attending Provider Ricky ALFONSO, Dr. Tre Jean Referring Provider Darrin SRINIVASAN, Dr. Larson Referring Provider Darrin SRINIVASAN, Dr. Larson Emergency Provider Jose ALFONSO, Dr. Megan Jackson Admit Provider Jose ALFONSO, Dr. Megan Jackson Attending Provider Ricky ALFONSO, Dr. Tre Jean Primary Care Provider Ricky ALFONSO, Dr. Tre Jean Attending Provider Ricky ALFONSO, Dr. Tre Jean Referring Provider Jose ALFONSO, Dr. Megan Jackson Other Provider Prashant ALFONSO, Norman Other Provider Unavailable Delaney ALFONSO, Dr. Root Other Provider [phone] Lila López MD Other Provider Unavailable Dr. Jacqui Tinajero DO Other Provider [phone] Munira ALFONSO, Dr. Irizarry Other Provider [phone] Conor ALFONSO, Dr. Scott Other Provider [phone] Parish ALFONSO, Dr. Arteaga Other Provider Saadia ALFONSO, Dr. Gil Other Provider [phone] Ollie ALFONSO, Dr. Comer Other Provider Antoine ALFONSO, Dr. Rg Other Provider [phone] Alley Prince MD Other Provider Raul ALFONSO, Dr. Faulkner Other Provider [phone] Brent ALFONSO, Dr. Gonzalez Other Provider Yasir ALFONSO, Dr. Hernandez Other Provider Misha ALFONSO, Dr. Christiano Deal Other Provider Mateusz ALFONSO, Dr. El Other Provider [phone] Gian ALFONSO, Dr. Mata Other Provider Aurelio ALFONSO, Dr. Tyson Other Provider Austin ALFONSO, Dr. Ríos Other Provider Unavailable Catherine ALFONSO, Ace Other Provider Unavailable Austin SRINIVASAN, Dr. Gaston Attending Provider Jose ALFONSO, Dr. Megan Jackson Attending Provider Austin SRINIVASAN, Dr. Gaston Other Provider Raymond ALFONSO, Dr. Wakefield Attending Provider Ricky ALFONSO, Dr. Tre Jean Primary Care Provider [phone] Ricky ALFONSO, Dr. Tre Jean Attending Provider [phone] Ricky ALFONSO, Dr. Tre Jean Referring Provider Elvia Mccullough Attending Provider Unavailable Jennie ALFONSO, Dr. Campos Attending Provider Jennie ALFONSO, Dr. Campos Referring Provider Ricky ALFONSO, Dr. Tre Jean Primary Care Provider [phone] Ricky ALFONSO, Dr. Tre Jean Attending Provider Ricky ALFONSO, Dr. Tre Jean Referring Provider Brandyn ALFONSO, Dr. Yoder Attending Provider Brandyn ALFONSO, Dr. Yoder Other Provider Ricky, Tre Chi Attending Unavailable Ricky, Tre Chi Referring Unavailable Ricky, Tre Chi Primary Care Unavailable Ricky, Tre Chi Primary Care Unavailable Ricky, Tre Chi Attending Unavailable Ricky, Tre Chi Referring Unavailable Ricky, Tre Chi Attending Unavailable Ricky, Tre Chi Primary Care Unavailable Kamar RESIDENTIAL SALES EXECUTIVE, Heather Attending Unavailable Kamar RESIDENTIAL SALES EXECUTIVE, Heather Referring Unavailable Ricky, Tre Chi Primary Care Unavailable Ricky, Tre Chi Attending Unavailable Ricky, Tre Chi Referring Unavailable Ricky, Tre Chi Primary Care Unavailable Ricky, Tre Chi Primary Care Unavailable Ricky, Tre Chi Attending Unavailable Ricky, Tre Chi Primary Care Unavailable Ricky, Tre Chi Attending Unavailable Ricky, Tre Chi Primary Care Unavailable Neo Clifford Referring Unavailable Megan Garcia Admitting Unavailable Norman Cerda Consulting Unavailable Marilin Avila Attending Unavailable Dk Baltazar Consulting Unavailable Hindyoli, Lila Consulting Unavailable Lior, Jacqui Consulting Unavailable Zha, Edie Consulting Unavailable Conor, Tyler Consulting Unavailable Parish, Jenni Consulting Unavailable Jeffery Zee Consulting Unavailable Souleymane Levin Consulting Unavailable Arcenio Schultz Consulting Unavailable Alley Prince Consulting Unavailable Kaushik Carter Consulting Unavailable Lisa Kennedy Consulting Unavailable David Cooley Consulting Unavailable Christiano Cabral Consulting UnavailNikko Reed Consulting Unavailable Gian, Esperanza Consulting Unavailable Jah Carey Consulting Unavailable Khushbu Avila Consulting Unavailable Ace Alexander Consulting Unavailable Megan Garcia Consulting Unavailable Ricky, Tre Chi Primary Care Unavailable Andres Schneiedr Referring Unavailable Andres Schneider Attending Unavailable Ricky, Tre Chi Primary Care Unavailable Ricky, Tre Chi Attending Unavailable Ricky, Tre Chi Referring Unavailable Ricky, Tre Chi Primary Care Unavailable Beba Ahumada Attending Unavailable Ricky, Tre Chi Referring Unavailable Ricky, Tre Chi Primary Care Unavailable Ricky, Tre Chi Attending Unavailable Ricky, Tre Chi Referring Unavailable Ricky, Tre Chi Attending Unavailable Ricky, Tre Chi Primary Care Unavailable Ricky, Tre Chi Referring Unavailable Ricky, Tre Chi Primary Care Unavailable Ricky, Tre Chi Referring Unavailable Ricky, Tre Chi Attending Unavailable Andres Schneider Referring Unavailable Andres Schneider Attending Unavailable Ricky, Tre Chi Primary Care Unavailable Ricky, Tre Chi Referring Unavailable Ricky, Tre Chi Attending Unavailable Ricky, Tre Chi Primary Care Unavailable Ricky, Tre Chi Attending Unavailable Ricky, Tre Chi Referring Unavailable Ricky, Tre Chi Primary Care Unavailable Elvia Mccullough Attending Unavailable Kimberly Swenson NP Attending Unavailable Ricky, Tre Chi Referring Unavailable Ricky, Tre Chi Primary Care Unavailable Ricky, Tre Chi Attending Unavailable Rciky, Tre Chi Primary Care Unavailable Ricky, Tre Chi Attending Unavailable Ricky, Tre Chi Referring Unavailable Ricky, Tre Chi Primary Care Unavailable Ricky, Tre Chi Attending Unavailable Ricky, Tre Chi Referring Unavailable Ricky, Tre Chi Primary Care Unavailable Ricky, Tre Chi Primary Care Unavailable Raymond Eliekristen Attending Unavailable Ricky, Tre Chi Primary Care Unavailable Oleghe, Efewongbe Attending Unavailable Ricky, Tre Chi Referring Unavailable Kamar BATES, Heather Referring Unavailable Chacho Mcghee Attending Unavailable Ricky, Tre Chi Primary Care Unavailable Ricky, Tre Chi Primary Care Unavailable Oleghe, Efewongbe Consulting Unavailable Oleghe, Efewongbe Attending Unavailable Ricky, Tre Chi Referring Unavailable Ricky, Tre Chi Primary Care Unavailable Oleghe, Efewongbe Consulting Unavailable Oleghe, Efewongbe Attending Unavailable Ricky, Tre Chi Referring Unavailable Ricky, Tre Chi Referring Unavailable Andres Schneider Attending Unavailable Ricky, Tre Chi Primary Care Unavailable Ricky, Tre Chi Referring Unavailable John Paulh Andres Attending Unavailable Ricky, Tre Chi Primary Care Unavailable Clifford, Neo Referring Unavailable Megan Garcia Attending Unavailable Ricky, Tre Chi Primary Care Unavailable Darrin, Neo Referring Unavailable Megan Garcia Admitting Unavailable Norman Cerda Consulting Unavailable Marilin Avila Attending Unavailable Adeli, Amir Consulting Unavailable Hinduja, Lila Consulting Unavailable Lior Jacqui Consulting Unavailable Zha, Edie Consulting Unavailable Conor, Tyler Consulting Unavailable Parish, Jenni Consulting Unavailable Bittatony Jeffery Consulting Unavailable Souleymane Levin Consulting Unavailable Arcenio Schultz Consulting Unavailable Alley Prince Consulting Unavailable Kaushik Carter Consulting Unavailable Lisa Kennedy Consulting Unavailable RidDavid simon Consulting Unavailable Zaghlosuzy, Mhd Say Consulting UnavailNikko Reed Consulting Unavailable Springer Ramsisi Consulting Unavailable Jah Carey Consulting Unavailable Khushbu Avila Consulting Unavailable Ace Alexander Consulting Unavailable Megan Garcia Consulting Unavailable Marilin Avila Consulting Unavailable Jg Bustamante Attending Unavailable Ricky, Tre Chi Primary Care Unavailable Ricky, Tre Chi Attending Unavailable Ricky, Tre Chi Referring Unavailable Ricky, Tre Chi Attending Unavailable Ricky, Tre Chi Primary Care Unavailable Ricky, Tre Chi Referring Unavailable Allergies Allergy Classification Reported Allergen(s) Allergy Type Date of Onset Reaction(s) Facility (20 sources) environmental [Other] Propensity to adverse reactions 5 Intolerance [facility] (1 source) OTHER; Translations: [OTHER] Propensity to adverse reactions (disorder) 5 [facility] Repository Medications Current Medications Medication Drug Class(es) Dates Sig (Normalized) Sig (Original) amoxicillin 875 mg / clavulanate 125 mg oral tablet (2 sources) Penicillin-class Antibacterial Start: 02-15-2022 End: 02-20-2022 take 1 tablet by mouth twice daily amoxicillin-clavu lanic acid (AUGMENTIN) 875-125 mg per tablet Take 1 tablet by mouth twice daily for 5 days. 10 tablet 0 02/15/2022 02/20/2022 Active Comment on above: Take 1 tablet by radha twice daily for 5 days. benzonatate 100 mg oral capsule (20 sources) Non-narcotic Antitussive Start: 05-13-2022 End: 05-23-2022 take 1 capsule by mouth every eight [...] TIMES A DAY as needed for cough 20 0 June 14, 2021 1:00am June 02, 2023 12:26pm Comment on above: Take 1-2 capsules ti d prn, no more than 6 in 24 hours. Take 1 capsule by [facility] three times daily as needed for cough for up to 10 days. Csnupwkjrj-Nryfyuxl-Iv rmoterol (9 sources) Corticosteroid, beta2-Adrenergic Agonist Start: 11-25-2024 Zbjcxbuwgo-Rwjxqcja-Xylw oterol (Breztri Aerosphere) 160-9-4.8 mcg/actuation HFA aerosol inhaler Active 2 NMA INHALATION TWICE A DAY November 25, 2024 12:00am Start: 03-21-2024 take 2 puff(s) by in halation twice daily BREZTRI AEROSPHERE 160-9-4.8 mcg/actuation HFA aerosol inhaler Inhale 2 Puffs as instructed two times a day. 03/21/2024 Active cholecalciferol 0.025 mg oral tablet (5 sources) Vitamin D Start: 01-02-2025 take 1 tablet by mouth once daily Cholecalciferol (Vitamin D3) (Vitamin D3) 25 mcg (1,000 unit) tablet Active 25 ug PO DAILY January 02, 2025 12:00am Not sure Lactobacillus Combination No.9 (Adult 50 Plus Probiotic) 4 billion cell capsule (1 source) Start: 01-31-2025 take 4 capsules by mouth once daily Lactobacillus Combination No.9 (Adult 50 Plus Probiotic) 4 billion cell capsule Active 4000 NMA PO daily January 31, 2025 12:00am administer with a meal lisinopril 5 mg oral tablet (20 sources) Angiotensin Converting Enzyme Inhibitor Start: 08-28-2020 End: 05-03-2023 take 1 tablet by mouth once daily Lisinopril 5 MG tablet Active 5 mg PO DAILY August 28, 2020 12:00am Comment on above: Take 1 tablet by radha once daily. take 1 tablet daily montelukast [...] by mo ut daily at bedtime. omeprazole 10 mg delayed release oral capsule (20 sources) Proton Pump Inhibitor Start: 06-02-2023 take 4 capsules by mouth once daily Omeprazole 10 mg capsule,delayed release(DR/EC) Active 40 mg PO DAILY June 02, 2023 12:24pm Start: 06-02-2023 take 40 mg by mouth once daily Omeprazole Active 40 MG PO DAILY June 02, 2023 12:24pm Start: 05-03-2023 take 1 capsule by [facility] once daily omeprazole (PRILOSEC) 40 mg capsule Indications: Gastroesophageal reflux disease, unspecified whether esophagitis present Take 1 capsule by mouth once daily 90 capsule 05/03/2023 Active Start: 01-21-2023 take 1 capsule by [facility] once daily omeprazole (PRILOSEC) 40 mg [...] Comment on above: Take 1 capsule by [facility] daily before breakfast. 1/2 hr before meal. TAKE 1 CAPSULE DAILY BEFORE BREAKFAST (ONE-HALF HOUR BEFORE MEAL). Take 1 capsule by [facility] once daily. Take 1 capsule by [facility] once daily perflutren lipid microspheres 1.3 mL in NaCl (PF) 0.9% 10 mL injection (DEFINITY) (17 sources) Start: 3 End: 4 perflutren lipid microspheres 1.3 mL in NaCl (PF) 0.9% 10 mL injection (DEFINITY) polyethylene glycol 3350 88307 mg powder for oral solution (20 sources) Osmotic Laxative Start: 5 take 17 g by mouth twice daily Polyethylene Glycol 3350 17 gram powder in packet Active 17 g PO TWICE A DAY January 02, 2025 3:13pm Constipation Start: 01-25-2020 take 1 dose by mouth twice annamarie ly polyethylene glycol 3350 (MIRALAX, GLYCOLAX) 17 gram packet Indications: Chronic constipation Take 1 Packet by mouth twice daily. 180 Packet 3 01/25/2020 Active Start: 04-19-2013 End: 01-02-2025 take 17 g by mouth once daily as needed for constipation Polyethylene Glycol 3350 17 GM powder in packet Discontinued 17 g PO DAILY as needed for Constipation April 19, 2013 1:00am January 02, 2025 3:14pm Comment on above: Take 1 Packet by [facility] twice daily. predniSONE 10 mg oral tablet [...] Comment on above: Take 2 tablets by [facility] once daily for 5 days. Take 1 tablet by [facility] once daily for 5 days. Take 4 [...] on above: Take 1 capsule by [facility] daily at bedtime. TAKE 1 CAPSULE DAILY AT BEDTIME Completed/Discontinued Medications Medication Drug Class(es) Dates Sig (Normalized) Sig (Original) acetaminophen 325 mg / oxyCODONE hydrochloride 5 mg oral tablet (18 sources) Opioid Agonist Start: 04-19-2013 End: 04-19-2013 [...] 19, 2013 1:00am April 19, 2013 11:50pm [id number] 200 actuat albuterol 0.09 mg/actuat metered dose inhaler (20 sources) beta2-Adrenergic Agonist Start: 12-14-2024 End: 01-02-2025 Albuterol Sulfate (Ventolin Hfa) 90 mcg/actuation HFA aerosol inhaler Discontinued 2 NMA INHALATION EVERY 6 HOURS as needed December 14, 2024 12:00am January 02, 2025 3:14pm Start: 05-06-2023 End: 11-25-2024 Albuterol Sulfate 90 mcg/act uation aerosol powdr breath activated Discontinued 2 NMA INHALATION EVERY 6 HOURS as needed for shortness of breath May 06, 2023 1:00am November 25, 2024 9:47pm Start: 05-06-2023 Albuterol Sulf ate Active 2 [...] hours as needed for wheezing/shortness of breath. aspirin 81 mg chewable tablet (7 sources) Platelet Aggregation Inhibitor, Nonsteroidal Anti-inflammatory Drug Start: 11-28-19 End: 01-03-20 take 1 tablet by mouth at breakfast Aspirin 81 mg Tablet,Chewable Discontinued 81 mg PO WITH BREAKFAST 0 0 November 27, 2024 12:00am January 02, 2025 3:14pm azithromycin 250 mg oral tablet (13 sources) Macrolide Antimicrobial Start: 01-03-20 End: 02-01-20 take 1 tablet by mouth once daily Azithromycin 250 mg tablet Discontinued 250 mg PO DAILY January 02, 2025 12:00am January 31, 2025 3:35pm Guard against infection COPD Start: 11-25-2024 End: 12-14-2024 take 1 tablet by mouth once daily Azithromycin 250 mg tablet Discontinued 250 mg PO DAILY November 25, 2024 12:00am December 14, 2024 4:42pm cephalexin 500 mg oral capsule (15 sources) Cephalosporin Antibacterial Start: 01-25-2025 End: 01-31-2025 take 1 capsule by mouth four times daily Cephalexin 500 mg capsule Discontinued 500 mg PO 4 TIMES DAILY January 25, 2025 12:00am January 31, 2025 3:35pm Start: 10-13-2023 End: 01-03-2024 take 1 capsule by mouth every six hours Cephalexin 500 mg capsule Discontinued 500 mg PO EVERY 6 HOURS October 13, 2023 12:00am January 03, 2024 2:15pm doxycycline hyclate 100 mg oral tablet (8 sources) Tetracycline-class Drug Start: 01-25-2025 End: 01-31-2025 take 1 tablet by mouth twice daily Doxycycline Hyclate 100 mg tablet Discontinued 100 mg PO TWICE A DAY January 25, 2025 12:00am January 31, 2025 3:35pm Start: 05-03-2022 End: 05-08-2022 take 1 tablet [...] above: Take 1 tablet by radha th twice daily for 10 days. Take 1 tablet by radha th twice daily for 5 days. 120 actuat fluticasone propionate 0.23 mg/actuat / salmeterol 0.021 mg/actuat metered dose inhaler (1 source) Corticosteroid, beta2-Adrenergic Agonist Start: 06-01-19 End: 07-02-19 take 2 puff(s) by inhalation twice daily fluticasone-salmeter ol HFA (ADVAIR HFA) 230-21 mcg/actuation inhaler Inhale 2 Puffs as instructed two times a day. 3 Each 3 06/01/2023 07/02/2023 Discontinued Comment on above: Inhale 2 Puffs as in structed two times a day. 60 actuat formoterol fumarate 0.005 mg/actuat / mometasone furoate 0.2 mg/actuat metered dose inhaler (20 sources) Corticosteroid, beta2-Adrenergic Agonist Start: 07-02-19 End: 05-26-20 take 2 puff(s) by inhalation twice daily mometasone-formotero l (DULERA) 200-5 mcg/actuation inhaler Inhale 2 Puffs [...] Puffs as instructed twice daily. 1 Each 08/24/2022 12/10/2022 Discontinued Comment on above: Inhale [...] bedtime. meclizine hydrochloride 25 mg chewable tablet (14 sources) Antiemetic Start: 08-15-19 End: 01-03-20 take 1 tablet by mouth three times daily as needed for dizziness Meclizine (Antivert) 25 mg tablet,chewable Discontinued 25 mg PO THREE TIMES A DAY as needed for dizziness August 15, 2023 1:04pm January 03, 2024 2:16pm melatonin 10 mg oral capsule (6 sources) Start: 12-15-19 End: 01-03-20 take 1 capsule by mouth at bedtime as needed Melatonin 10 mg capsule Discontinued 10 mg PO BEDTIME as needed December 14, 2024 12:00am January 02, 2025 3:14pm melatonin 10 mg cap Take by mouth daily at bedtime. Active 30 actuat mometasone furoate 0.11 mg/actuat dry powder inhaler (16 sources) Corticosteroid Start: 05-26-2021 End: 03-13-2022 mometasone (ASMANEX TWISTHALER) 110 mcg/ actuation (30) twisthaler USE 1 INHALATION DAILY INSTRUCTED (EXPIRES 45 DAYS) 3 Each 3 05/26/2021 03/13/2022 Discontinued Comment on above: USE 1 INHALATION ANNAMARIE LY INSTRUCTED (EXPIRES 45 DAYS) Mometasone-Formotero l (Dulera) 200-5 mcg/actuation HFA aerosol inhaler (16 sources) Start: 05-06-2023 End: 11-25-2024 Mometasone-Formoterol (Dulera) 200-5 mcg/actuation HFA aerosol inhaler Discontinued 2 NMA INHALATION TWICE A DAY May 06, 2023 1:00am November 25, 2024 9:48pm Start: 05-06-2023 Mometasone-For moterol (Dulera) 200-5 mcg/actuation HFA aerosol inhaler Active [...] TWICE A DAY May 06, 2023 12:00am ondansetron 4 mg disintegrating oral tablet (14 sources) Serotonin-3 Receptor Antagonist Start: 08-15-2023 End: 01-03-2024 take 1 tablet by mouth every eight hours as needed for nausea Ondansetron 4 mg tablet,disintegrating Discontinued 4 mg PO EVERY 8 HOURS NEEDED as needed for Nausea 10 August 15, 2023 12:00am January 03, 2024 2:16pm Problems Active Problems Problem Classification Problem Date Documented Da te Episodic/Chronic Adjustment disorders (20 sources) Adjustment disorder with depressed mood; Translations: [Adjustment disorder with depressed mood] Onset: 9 08-28-2008 Chronic Anxiety disorders (20 sources) Anxiety; Translations: [Anxiety disorder, unspecified] Onset: 5 01-15-2015 Chronic Asthma (20 sources) Cough variant asthma; Translations: [Cough variant asthma] Onset: Chronic Blindness and vision defects (17 sources) Eye / vision finding; Translations: [Unspecified visual disturbance] Onset: 5 11-25-2024 Episodic Cardiac dysrhythmias (1 source) Paroxysmal atrial fibrillation; Translations: [Paroxysmal atrial fibrillation] Onset: 4 Chronic Cardiac dysrhythmias (13 sources) Tachycardia; Translations: [Tachycardia, unspecified] 02-23-2024 Episodic Chronic obstructive pulmonary disease and bronchiectasis (1 source) Unspecified chronic bronchitis; Translations: [Unspecified chronic bronchitis] Onset: 5 Chronic Chronic obstructive pulmonary disease and bronchiectasis (1 source) Bronchitis; Translations: [Bronchitis, not specified as acute or chronic] Episodic Coagulation and hemorrhagic disorders (16 sources) Platelet disorder; 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 Mild thrombocytopenia may occur with Aspirin, Omeprazole, H.Pylori infection. PT agrees to proceed. Discussed causes of thrombocytopenia and evaluation. Mild thrombocytopenia may occur with Aspirin, Omeprazole. H.Pylori is negative.PLT was 117-Mild. Conditions associated with dizziness or vertigo (20 sources) Dizziness; Translations: [Dizziness and giddiness] Onset: 5 08-29-2020 Episodic Diabetes mellitus without complication (1 source) Increased glucose level; Translations: [Other abnormal glucose] Episodic Disorders of lipid metabolism (20 sources) Hyperlipidemia; Translations: [Hyperlipidemia, unspecified] 05-06-2023 Chronic Esophageal disorders (18 sources) Gastroesophageal reflux disease; Translations: [Gastro-esophageal reflux disease without esophagitis] 01-21-2023 Chronic Essential hypertension (20 sources) Benign essential hypertension; Translations: [Essential (primary) hypertension] Onset: 5 03-05-2021 Chronic Genitourinary symptoms and ill-defined conditions (16 sources) Lower urinary tract symptoms; Translations: [Unspecified [...] recurrent, in full remission] Onset: 2 Chronic Open wounds of extremities (20 sources) Tear of skin; Translations: [Laceration without foreign body of unspecified forearm, initial encounter] Onset: 5 01-04-2024 Episodic Other congenital anomalies (2 sources) Congenital eventration of diaphragm; 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 Other congenital anomalies (1 source) Diaphragmatic eventration; 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 Other connective tissue disease (1 source) Musculoskeletal pain; Translations: [Myalgia, other site] Episodic Other gastrointestinal disorders (18 sources) Chronic idiopathic constipation; Translations: [Chronic idiopathic constipation] 04-19-2013 Chronic Other gastrointestinal disorders (16 sources) Constipation; Translations: [Constipation, unspecified] 05-06-2023 Episodic Other infections; including parasitic (5 sources) Personal history of other infectious and parasitic diseases; Translations: [History of COVID-19] Episodic Other injuries and conditions due to external causes (14 sources) Open wound; Translations: [Other injury of unspecified body region, initial encounter] 10-13-2023 Episodic Other injuries and conditions due to external causes (6 sources) History of fall; Translations: [History of falling] 01-25-2025 Episodic Other injuries and conditions due to external causes (2 sources) History of falling; Translations: [History of falling] Onset: 5 Episodic Other injuries and conditions due to external causes (1 source) Other injury of unspecified body region, initial encounter; Translations: [Other injury of unspecified body region, initial encounter] Onset: 5 Episodic Other lower respiratory disease (20 sources) Cough; Translations: [Acute cough] Episodic Other [...] [Other disorders of lung] 05-26-2024 Episodic Other screening for suspected conditions (not mental disorders or infectious disease) (15 sources) Raised cardiac enzyme or marker; Translations: [Other specified abnormal findings of blood chemistry] Onset: 5 11-26-2024 Episodic Other upper respiratory disease (1 source) [...] intervertebral disc displacement, lumbar region] Onset: 06-05-2010 Chronic Spondylosis; intervertebral disc disorders; other back problems (16 sources) Chronic low back pain; Translations: [Chronic low back pain] 05-06-2023 Episodic Transient cerebral ischemia (11 sources) Transient cerebral ischemia; Translations: [Transient cerebral ischemic attack, unspecified] Onset: 5 11-25-2024 Chronic Unclassified (1 source) Acute cough; Translations: [Acute cough] Onset: Viral infection (20 sources) Viral disease; Translations: [Viral infection, unspecified] [...] 06-12-2014 06-12-2014 Episodic Other connective tissue disease (11 sources) [...] without acute cor pulmonale] Onset: 04-03-2024 Episodic Residual codes; unclassified (1 source) Chills (without fever); Translations: [Chills (without fever)] Onset: 08-23-2024 Episodic Skin and subcutaneous tissue infections (1 source) Cellulitis of left upper limb; Translations: [Cellulitis of left upper limb] Onset: 06-01-2024 Episodic Results Test Name Value Interpretation Reference Range Facility Oncology Visit Reporton Oncology Visit Report Normal [facility] Culture, Anaerobic Any [facility] lynsey 01-29-2025 CUAN ONLY AN AEROBIC SWAB WAS RECEIVED FOR CULTURE. GROWTH OF ANAEROBES MAY BE INHIBITED. LEFT KNEE No growth in 5 days. Normal [facility] Comment on above: Performed By: #### M 100.3000, M100.4001, M8200.1075, M100.2000 ####[facility] [address] [place], [address] CUAN ONLY AN AEROBIC SWAB WAS RECEIVED FOR CULTURE. GROWTH OF ANAEROBES MAY BE INHIBITED. LEFT WRIST No growth in 5 days. Normal [facility] Comment on above: Performed By: #### M 100.4001, M8200.1075, M100.2000, M100.3000 ####[facility] [address] [place], [address] Wound Cultureon 01-27-2025 WC ONLY AN AEROBIC SWAB WAS RECEIVED FOR CULTURE. GROWTH OF ANAEROBES MAY BE INHIBITED. LEFT WRIST No growth aerobically. Normal [facility] Comment on above: Performed By: #### M 100.4001, M8200.1075, M100.1999, M100.3000 ####[facility] [address] [place], [address] Wound Ctr History AND Physic romulo 01-25-2025 Wound Ctr History & Physical Normal [facility] Brain/Head without Contrasto n 01-24-2025 Brain/Head without Contrast Normal [facility] Gram Stainon 01-24-2025 GS ONLY AN AEROBIC SWAB WAS RECEIVED FOR CULTURE. GROWTH OF ANAEROBES MAY BE INHIBITED. LEFT WRIST Gram Stain 1+ White Blood Cells Rare Gram negative rods No Epithelial cells Normal [facility] Comment on above: Performed By: #### M 100.4001, M8200.1075, M1.1999, M100.3000 ####[facility] [address] [place], [address] GS ONLY AN AEROBIC SWAB WAS RECEIVED FOR CULTURE. GROWTH OF ANAEROBES MAY BE INHIBITED. LEFT KNEE Gram Stain 2+ White Blood Cells No organisms seen No Epithelial cells Normal [facility] Comment on above: Performed By: #### M 100.3000, M100.4001, M8200.1075, M1 ####[facility] [address] [place], [address] M8200.1075on 01-24-2025 M8200.1075 ONLY AN AEROBIC SWAB WAS RECEIVED FOR CULTURE. GROWTH OF ANAEROBES MAY BE INHIBITED. LEFT KNEE Pending MRSA PCR MRSA NEGATIVE STAPH. AUREUS PCR STAPH. AUREUS NEGATIVE Normal [facility] Comment on above: Performed By: #### M 100.3000, M100.4001, M8200.1075, M1.1999 ####[facility] [address] [place], [address] M8200.1075 ONLY AN AEROBIC SWAB WAS RECEIVED FOR CULTURE. GROWTH OF ANAEROBES MAY BE INHIBITED. LEFT WRIST Pending MRSA PCR MRSA NEGATIVE STAPH. AUREUS PCR STAPH. AUREUS NEGATIVE Normal [facility] Comment on above: Performed By: #### M 100.4001, M8200.1075, M100.2000, M100.3000 ####[facility] [address] [place], [address] Wound Cultureon 01-24-2025 WC ONLY AN AEROBIC SWAB WAS RECEIVED FOR CULTURE. GROWTH OF ANAEROBES MAY BE INHIBITED. LEFT KNEE No growth aerobically. Normal [facility] Comment on above: Performed By: #### M 100.3000, M100.4001, M8200.1075, M1.1999 ####[facility] [address] [place], [address] Anaerobic cultureOrdered By: Tre García on 01-23-2025 Bacteria identified Anaer cx Nom (Unsp spec) No growth in 5 days. [facility] Bacteria identified Anaer cx Nom (Unsp spec) No growth in 5 days. [facility] Gram stainOrdered By: Tre plascencia on 01-23-2025 Microscopic observation Gram stain Nom (Unsp spec) [facility] Microscopic observation Gram stain Nom (Unsp spec) [facility] Erythropoietinon 01-21-2025 ERYTHROPOIETIN Normal [facility] Comment on above: Order Comment: Reaso n for Exam: . Result Comment: TEST RESULTS LIMITSErythropoietin (EPO), Serum Erythropoietin 10.1 mIU/mL 2.6-18.5 [employer] 800 Immunoassay System Values obtained with different assay methods or kitscannot be used interchangeably. Results cannot beinterpreted as absolute evidence of the presence orabsence of malignant disease. __ TESTING PERFORMED AT [facility]. ORIGINAL REPORT ON FILE IN LAB CONTAINS ADDITIONAL TEST SITE INFORMATION. Performed By: #### L 3000.0800, L101.9900, L501.2300, L503.6550, L100.0100, L100.9950, L504.2610, L3100.1350, L300.3900, L3100.1960, L300.4310 ####[facility] [address] [facility] [place], [place], [id number] H pylori Breath Teston 01-21 H.Pylori Breath Normal Negative [facility] Comment on above: Order Comment: Reaso n for Exam: . Result Comment: TEST RESULTS LIMITSH pylori Breath Test Negative Negative __ TESTING PERFORMED AT [facility]. ORIGINAL REPORT ON FILE IN LAB CONTAINS ADDITIONAL TEST SITE INFORMATION. Performed By: #### L 3000.0800, L101.9900, L501.2300, L503.6550, L100.0100, L100.9950, L504.2610, L3100.1350, L300.3900, L3100.1960, L300.4310 ####[facility] [address] [place], [address] Hepatitis B/C Profile VIIIon 01-21-2025 HEPATITIS INTER Normal [facility] Comment on above: Order Comment: Reaso n for Exam: . Result Comment: TEST RESULTS LIMITSViral Hepatitis HBV, HCV HBsAg Screen Negative Negative Hep B Surface Ab, Qual Non Reactive Non Reactive: Not immune to HBV infection. Equivocal: Unable to determine if anti-HBs is present at levels consistent with immunity. Reactive: Anti-HBs concentration detected at greater than 10 mIU/mL. Individual is considered to be immune to infection with HBV. Hep B Core Ab, Tot Negative Negative Client Requested Flag Interpretation HBV Serology Interpretation Chart Interpretation HBsAg anti-HBs anti-HBc anti-HBcIgM Montaño - Analyte present: + Analyte absent: - Test notindicated: TNI Susceptible (never infected and no evidence - - - TNI of vaccination) Immune due to natural resolved infection - + + TNI Immune due to vaccination - + - TNI Acute Infection + - + + Chronic infection + - + - Interpretation unclear* - - + +/- *Multiple possibilities: resolved infection (most common);false- positive anti-HBc (susceptible); low-level chronicinfection; resolving acute infection.HCV Ab Non Reactive Non ReactiveInterpretation: Not infected with HCV unless early or acute infection is suspected (which may be delayed in an immunocompromised individual), or other evidence exists to indicate HCVinfection. TESTING PERFORMED AT [facility]. ORIGINAL REPORT ON FILE IN LAB CONTAINS ADDITIONAL TEST SITE INFORMATION. Performed By: #### L 3000.0800, L101.9900, L501.2300, L503.6550, L100.0100, L100.9950, L504.2610, L3100.1350, L300.3900, L3100.1960, L300.4310 ####[facility] [address] [place], [address] L501.5101on 01-04-2025 GGTP 15 IU/L Normal 0-65 [facility] Comment on above: Result Comment: Perf ormed at: CB - [facility] [id number] [place], [place] [id number] Director: Morgan Singh PhD, Phone: [phone] Performed By: #### L 501.3004, L503.4431, L501.4373, L500.4050, L501.5200, L503.0106 ####[facility] [address] [place], [address] Absolute lymphocyte countOrd ered By: Andres Schneider on 01-02-2025 Lymphocytes Auto (Unsp spec) [#/Vol] 2.74 10*3/uL 0.83-4.51 [facility] Absolute neutrophil countOrd ered By: Andres Schneider on 01-02-2025 Neutrophils (Bld) [#/Vol] 3.1 10*3/uL 2.0-7.7 [facility] Activated partial thrombopla stin time (aPTT) in platelet poor plasma by coagulation aOrdered By: Andres Schneider on 01-02-2025 aPTT Coag (PPP) [Time] 27.3 s 24.1-36.2 [facility] Anion gap in Serum or Plasma Ordered By: Andres Schneider on 01-02-2025 Anion gap [Moles/Vol] 11 mmol/L 5-15 [facility] Automated lymphocyte count a s percentage of total leukocytesOrdered By: Andres Schneider on 01-02-2025 Lymphocytes/100 WBC Auto (Unsp spec) 44.4 % High 19-41 [facility] BUN/creatinine ratioOrdered By: Andres Schneider on 01-02-2025 Urea nitrogen/Creatinine [Mass ratio] 20.6 mg/mg High 10-20 [facility] Basophil percentageOrdered B y: Andres Schneider on 01-02-2025 Basophils/100 WBC (Bld) 0.3 % 0-1 [facility] Bilirubin, totalOrdered By: Andres Schneider on 01-02-2025 Bilirubin [Mass/Vol] 0.54 mg/dL 0.00-1.30 [facility] CBC W/Diff, Automatedon 080 Absolute Lymph 2.74 X10 3/uL Normal 0.83-4.51 [facility] Comment on above: Performed By: #### L 3000.0800, L101.9900, L501.2300, L503.6550, L100.0100, L100.9950, L504.2610, L3100.1350, L300.3900, L3100.1960, L300.4310 ####[facility] [address] [place], [place], [id number]) Absolute Neut 3.1 X10 3/uL Normal 2.0-7.7 [facility] Comment on above: Performed By: #### L 3000.0800, L101.9900, L501.2300, L503.6550, L100.0100, L100.9950, L504.2610, L3100.1350, L300.3900, L3100.1960, L300.4310 ####[facility] [address] [place], [place], [id number] Basophils/100 WBC (Bld) 0.3 % Normal 0-1 [facility] Comment on above: Performed By: #### L 3000.0800, L101.9900, L501.2300, L503.6550, L100.0100, L100.9950, L504.2610, L3100.1350, L300.3900, L3100.1960, L300.4310 ####[facility] [address] [place], [address] Eosinophils/100 WBC (Bld) 0.5 % Normal 0-5 [facility] Comment on above: Performed By: #### L 3000.0800, L101.9900, L501.2300, L503.6550, L100.0100, L100.9950, L504.2610, L3100.1350, L300.3900, L3100.1960, L300.4310 ####[facility] [address] [place], [address] Erythrocyte distribution width (RBC) [Ratio] 13.3 % Normal 11.6-14.6 [facility] Comment on above: Performed By: #### L 3000.0800, L101.9900, L501.2300, L503.6550, L100.0100, L100.9950, L504.2610, L3100.1350, L300.3900, L3100.1960, L300.4310 ####[facility] [address] [place], [address](212) Hematocrit (Bld) [Volume fraction] 44.2 % Normal 40-54 [facility] Comment on above: Performed By: #### L 3000.0800, L101.9900, L501.2300, L503.6550, L100.0100, L100.9950, L504.2610, L3100.1350, L300.3900, L3100.1960, L300.4310 ####[facility] [address] [place], [address] Hemoglobin (Bld) [Mass/Vol] 14.9 g/dL Normal 13.0-16.5 [facility] Comment on above: Performed By: #### L 3000.0800, L101.9900, L501.2300, L503.6550, L100.0100, L100.9950, L504.2610, L3100.1350, L300.3900, L3100.1960, L300.4310 ####[facility] [address] [place], [address] IG% 0.200 Normal 0.0-0.9 [facility] Comment on above: Result Comment: IG% - Immature Granulocytes (promyelocytes, myelocytes andmetamyelocytes) > 1% indicates that a LEFT SHIFT is Present. Performed By: #### L 3000.0800, L101.9900, L501.2300, L503.6550, L100.0100, L100.9950, L504.2610, L3100.1350, L300.3900, L3100.1960, L300.4310 ####[facility] [address] [place], [address] Lymphocytes/100 WBC (Bld) 44.4 % High 19-41 [facility] Comment on above: Performed By: #### L 3000.0800, L101.9900, L501.2300, L503.6550, L100.0100, L100.9950, L504.2610, L3100.1350, L300.3900, L3100.1960, L300.4310 ####[facility] [address] [place], [address] MCH (RBC) [Entitic mass] 31.4 pg Normal 27.0-32.0 [facility] Comment on above: Performed By: #### L 3000.0800, L101.9900, L501.2300, L503.6550, L100.0100, L100.9950, L504.2610, L3100.1350, L300.3900, L3100.1960, L300.4310 ####[facility] [address] [place], [address] MCHC (RBC) [Mass/Vol] 33.7 g/dL Normal 32-36 [facility] Comment on above: Performed By: #### L 3000.0800, L101.9900, L501.2300, L503.6550, L100.0100, L100.9950, L504.2610, L3100.1350, L300.3900, L3100.1960, L300.4310 ####[facility] [address] [place], [address] MCV (RBC) [Entitic vol] 93.1 fL Normal 80-94 [facility] Comment on above: Performed By: #### L 3000.0800, L101.9900, L501.2300, L503.6550, L100.0100, L100.9950, L504.2610, L3100.1350, L300.3900, L3100.1960, L300.4310 ####[facility] [address] [place], [address] Monocytes/100 WBC (Bld) 4.7 % Normal 0-10 [facility] Comment on above: Performed By: #### L 3000.0800, L101.9900, L501.2300, L503.6550, L100.0100, L100.9950, L504.2610, L3100.1350, L300.3900, L3100.1960, L300.4310 ####[facility] [address] [place], [address](431) Neutrophils/100 WBC (Bld) 49.9 % Normal 47-70 [facility] Comment on above: Performed By: #### L 3000.0800, L101.9900, L501.2300, L503.6550, L100.0100, L100.9950, L504.2610, L3100.1350, L300.3900, L3100.1960, L300.4310 ####[facility] [address] [place], [address](236) Nucleated RBC (Bld) [#/Vol] 0 10*3/uL Normal 0-5 [facility] Comment on above: Performed By: #### L 3000.0800, L101.9900, L501.2300, L503.6550, L100.0100, L100.9950, L504.2610, L3100.1350, L300.3900, L3100.1960, L300.4310 ####[facility] [address] [place], [address](214) Platelet mean volume (Bld) [Entitic vol] 9.5 fL Normal 6.2-12.0 [facility] Comment on above: Performed By: #### L 3000.0800, L101.9900, L501.2300, L503.6550, L100.0100, L100.9950, L504.2610, L3100.1350, L300.3900, L3100.1960, L300.4310 ####[facility] [address] [place], [address] Platelets (Bld) [#/Vol] 117 10*3/uL Low 150-450 [facility] Comment on above: Performed By: #### L 3000.0800, L101.9900, L501.2300, L503.6550, L100.0100, L100.9950, L504.2610, L3100.1350, L300.3900, L3100.1960, L300.4310 ####[facility] [address] [place], [address] RBC (Bld) [#/Vol] 4.75 10*6/uL Normal 4.6-6.2 [facility] Comment on above: Performed By: #### L 3000.0800, L101.9900, L501.2300, L503.6550, L100.0100, L100.9950, L504.2610, L3100.1350, L300.3900, L3100.1960, L300.4310 ####[facility] [address] [place], [address] RDW SD 45.7 fl High 35.1-43.9 [facility] Comment on above: Performed By: #### L 3000.0800, L101.9900, L501.2300, L503.6550, L100.0100, L100.9950, L504.2610, L3100.1350, L300.3900, L3100.1960, L300.4310 ####[facility] [address] [place], [address] WBC (Bld) [#/Vol] 6.2 10*3/uL Normal 4.4-11.0 [facility] Comment on above: Performed By: #### L 3000.0800, L101.9900, L501.2300, L503.6550, L100.0100, L100.9950, L504.2610, L3100.1350, L300.3900, L3100.1960, L300.4310 ####[facility] [address] [place], [address] CRPon 01-02-2025 C-REACTIVE PROT < 3.00 Normal 0.0-3.0 [facility] Comment on above: Performed By: #### L 501.5101, L503.6030, L501.6710, L500.4050, L501.5200, L503.0106 ####[facility] [address] [place], [address] Carbon dioxide, total [Moles /volume] in Central venous bloodOrdered By: Andres Schneider on 01-02-2025 CO2 [Moles/Vol] 23.1 mmol/L 21.0-32.0 [facility] Chloride assayOrdered By: Eve Schneider on 01-02-2025 Chloride [Moles/Vol] 106 mmol/L 98-108 [facility] Comprehensive Metabolic Prof ilon 01-02-2025 Albumin [Mass/Vol] 4.4 g/dL Normal 3.4-4.8 [facility] Comment on above: Performed By: #### L 501.5101, L503.6030, L501.6710, L500.4050, L501.5200, L503.0106 ####[facility] [address] [place], [address] Albumin/Globulin [Mass ratio] 1.9 {ratio} Normal 0.9-2.4 [facility] Comment on above: Performed By: #### L 501.5101, L503.6030, L501.6710, L500.4050, L501.5200, L503.0106 ####[facility] [address] [place], [address] ALK PHOS 94 U/L Normal 40-129 [facility] Comment on above: Performed By: #### L 501.5101, L503.6030, L501.6710, L500.4050, L501.5200, L503.0106 ####[facility] [address] [place], [address] ALT [Catalytic activity/Vol] 27 U/L Normal <=46 [facility] Comment on above: Performed By: #### L 501.5101, L503.6030, L501.6710, L500.4050, L501.5200, L503.0106 ####[facility] [address] [place], [address] AST [Catalytic activity/Vol] 27 U/L Normal <=37 [facility] Comment on above: Performed By: #### L 501.5101, L503.6030, L501.6710, L500.4050, L501.5200, L503.0106 ####[facility] [address] [place], [address] Bilirubin [Mass/Vol] 0.54 mg/dL Normal 0.00-1.30 [facility] Comment on above: Performed By: #### L 501.5101, L503.6030, L501.6710, L500.4050, L501.5200, L503.0106 ####[facility] [address] [place], [address] BUN/CRE 20.6 RATIO High 10-20 [facility] Comment on above: Performed By: #### L 501.5101, L503.6030, L501.6710, L500.4050, L501.5200, L503.0106 ####[facility] [address] [place], [address] Calcium [Mass/Vol] 9.4 mg/dL Normal 7.6-11.0 [facility] Comment on above: Performed By: #### L 501.5101, L503.6030, L501.6710, L500.4050, L501.5200, L503.0106 ####[facility] [address] [place], [address] Chloride [Moles/Vol] 106 mmol/L Normal 98-108 [facility] Comment on above: Performed By: #### L 501.5101, L503.6030, L501.6710, L500.4050, L501.5200, L503.0106 ####[facility] [address] [place], [address] CO2 [Moles/Vol] 23.1 mmol/L Normal 21.0-32.0 [facility] Comment on above: Performed By: #### L 501.5101, L503.6030, L501.6710, L500.4050, L501.5200, L503.0106 ####[facility] [address] [place], [address] Creatinine [Mass/Vol] 1.08 mg/dL Normal 0.70-1.20 [facility] Comment on above: Performed By: #### L 501.5101, L503.6030, L501.6710, L500.4050, L501.5200, L503.0106 ####[facility] [address] [place], [address] GAP 11 Normal 5-15 [facility] Comment on above: Performed By: #### L 501.5101, L503.6030, L501.6710, L500.4050, L501.5200, L503.0106 ####[facility] [address] [place], [address] GFR/1.73 sq M.predicted among non-blacks MDRD (S/P/Bld) [Vol rate/Area] 69 mL/min/{1.73_m2} Normal >60 [facility] Comment on above: Result Comment: mL/m in/1.73m2 CKD-EPI Creatinine Equation (2020) Performed By: #### L 501.5101, L503.6030, L501.6710, L500.4050, L501.5200, L503.0106 ####[facility] [address] [place], [address] Globulin (S) [Mass/Vol] 2.3 g/dL Normal 2.2-4.2 [facility] Comment on above: Performed By: #### L 501.5101, L503.6030, L501.6710, L500.4050, L501.5200, L503.0106 ####[facility] [address] [place], [address] Glucose [Mass/Vol] 96 mg/dL Normal 70-99 [facility] Comment on above: Performed By: #### L 501.5101, L503.6030, L501.6710, L500.4050, L501.5200, L503.0106 ####[facility] [address] [place], [address] Potassium [Moles/Vol] 4.6 mmol/L Normal 3.3-5.1 [facility] Comment on above: Performed By: #### L 501.5101, L503.6030, L501.6710, L500.4050, L501.5200, L503.0106 ####[facility] [address] [place], [address] Sodium [Moles/Vol] 140 mmol/L Normal 133-145 [facility] Comment on above: Performed By: #### L 501.5101, L503.6030, L501.6710, L500.4050, L501.5200, L503.0106 ####[facility] [address] [place], [address] T PROT 6.7 g/dL Normal 5.9-8.4 [facility] Comment on above: Performed By: #### L 501.5101, L503.6030, L501.6710, L500.4050, L501.5200, L503.0106 ####[facility] [address] [place], [address] Urea nitrogen [Mass/Vol] 22 mg/dL High 4-19 [facility] Comment on above: Performed By: #### L 501.5101, L503.6030, L501.6710, L500.4050, L501.5200, L503.0106 ####[facility] [address] [place], [address] Eosinophil percentageOrdered By: Andres Schneider on 01-02-2025 Eosinophils/100 WBC (Bld) 0.5 % 0-5 [facility] Erythrocyte Sed Rateon 01-02 SED RATE < 1 Normal 0-20 [facility] Comment on above: Performed By: #### L 3000.0800, L101.9900, L501.2300, L503.6550, L100.0100, L100.9950, L504.2610, L3100.1350, L300.3900, L3100.1960, L300.4310 ####[facility] [address] [place], [address] Erythrocyte distribution wid th ratioOrdered By: Andres Schneider on 01-02-2025 Erythrocyte distribution width (RBC) [Ratio] 13.3 % 11.6-14.6 [facility] Erythrocyte distribution wid th standard deviationOrdered By: Andres Schneider on 01-02-2025 Erythrocyte distribution width (RBC) [Ratio] 45.7 fl High 35.1-43.9 [facility] Erythrocyte sedimentation ra teOrdered By: Andres Schneider on 01-02-2025 ESR (Bld) [Velocity] mm/h 0-20 [facility] Ferritinon 01-02-2025 Ferritin [Mass/Vol] 424 ng/mL High 37-417 [facility] Comment on above: Performed By: #### L 3000.0800, L101.9900, L501.2300, L503.6550, L100.0100, L100.9950, L504.2610, L3100.1350, L300.3900, L3100.1960, L300.4310 ####[facility] [address] [place], [address] Gamma glutamyl transferase ( GGT) measurementOrdered By: Andres Schneider on 01-02-2025 Amylase [Catalytic activity/Vol] 15 U/L 0-65 [facility] Comment on above: Performed at: [place] [id number] Director: Morgan Singh PhD, Phone: [phone] Glomerular filtration rate ( GFR) estimation/1.73 sq m using serum, plasma, or whole bOrdered By: Andres Schneider on 01-02-2025 GFR/1.73 sq M.predicted among non-blacks MDRD (S/P/Bld) [Vol rate/Area] 69 mL/min/{1.73_m2} >60 [facility] Comment on above: mL/min/1.73m2 CKD-EP I Creatinine Equation (2020) Helicobacter pylori breath t estOrdered By: Andres Schneider on 01-02-2025 CO2 post dose urea Ql (Exhl gas) See comment Negative [facility] Comment on above: TEST RESULTS LIMITSH pylori Breath Test Negative Negative TESTING PERFORMED AT [facility]. ORIGINAL REPORT ON FILE IN LAB CONTAINS ADDITIONAL TEST SITE INFORMATION. Hematocrit Auto (Bld) [Volum e fraction]Ordered By: Andres Schneider on 01-02-2025 Hematocrit (Bld) [Volume fraction] 44.2 % 40-54 [facility] Hemoglobin measurementOrdere d By: Andres Schneider on 01-02-2025 Hemoglobin (Bld) [Mass/Vol] 14.9 g/dL 13.0-16.5 [facility] Immature granulocytes/100 WB C Auto (Bld)Ordered By: Andres Schneider on 01-02-2025 Immature granulocytes/100 WBC (Bld) 0.200 % 0.0-0.9 [facility] Comment on above: IG% - Immature Granu locytes (promyelocytes, myelocytes and metamyelocytes) > 1% indicates that a LEFT SHIFT is Present. Immature platelet percentage Ordered By: Andres Schneider on 01-02-2025 Platelets reticulated/100 platelets Auto (Bld) 1.6 % 1.0-7.9 [facility] Comment on above: Low PLT + Low IPF vasquez ggest a bone marrow production disorderLow PLT + high IPF suggests peripheral destruction(e.g.ITP, TTP, HIT, DIC, autoimmune) or bone marrow recoveryTrending of serial IPF measurements is recommended when evaluating for bone marrow responesValue above normal range indicates an increase in RBC cellular response from bone marrow. International normalized rat io (INR) calculationOrdered By: Andres Schneider on 01-02-2025 INR Coag (Bld) [Relative time] 1.0 {INR} [facility] Iron measurement (mass/mass) Ordered By: Andres Schneider on 01-02-2025 Iron (Unsp spec) [Mass/Mass] 131 ug/dL 65-175 [facility] Iron+Iron Binding Capacityon 01-02-2025 Iron [Mass/Vol] 131 ug/dL Normal 65-175 [facility] Comment on above: Performed By: #### L 501.5101, L503.6030, L501.6710, L500.4050, L501.5200, L503.0106 ####[facility] [address] [place], [address] IRON SATURATION 52.0 Normal 9-55 [facility] Comment on above: Performed By: #### L 501.5101, L503.6030, L501.6710, L500.4050, L501.5200, L503.0106 ####[facility] [address] [place], [address] TIBC 252 ug/dL Normal 250-450 [facility] Comment on above: Performed By: #### L 501.5101, L503.6030, L501.6710, L500.4050, L501.5200, L503.0106 ####[facility] [address] [place], [address] UIBC 121 ug/dL Low 228-428 [facility] Comment on above: Performed By: #### L 501.5101, L503.6030, L501.6710, L500.4050, L501.5200, L503.0106 ####[facility] [address] [place], [address] LDHon 01-02-2025 LDH 217 U/L Normal 87-241 [facility] Comment on above: Order Comment: 1 Performed By: #### L 3000.0800, L101.9900, L501.2300, L503.6550, L100.0100, L100.9950, L504.2610, L3100.1350, L300.3900, L3100.1960, L300.4310 ####[facility] [address] [place], [address] Laboratory - Chemistry and C hemistry - challengeOrdered By: Andres Schneider on 01-02-2025 AST [Catalytic activity/Vol] 27 U/L <38 [facility] Lactate dehydrogenase (LDH) measurementOrdered By: Andres Schneider on 01-02-2025 LDH [Catalytic activity/Vol] 217 U/L 87-241 [facility] MCV (mean corpuscular volume ) determinationOrdered By: Andres Schneider on 01-02-2025 MCV (RBC) [Entitic vol] 93.1 fL 80-94 [facility] Magnesiumon 01-02-2025 Magnesium [Mass/Vol] 2.3 mg/dL High 1.5-2.2 [facility] Comment on above: Performed By: #### L 501.5101, L503.6030, L501.6710, L500.4050, L501.5200, L503.0106 ####[facility] [address] [place], [address] Magnesium measurement (mass/ volume)Ordered By: [facility] on 01-02-2025 Magnesium (Unsp spec) [Mass/Vol] 2.3 mg/dL High 1.5-2.2 [facility] Mean corpuscular hemoglobin (MCH) determinationOrdered By: [facility] on 01-02-2025 MCH (RBC) [Entitic mass] 31.4 pg 27.0-32.0 [facility] Mean corpuscular hemoglobin concentration (MCHC) determinationOrdered By: [facility] on 01-02-2025 MCHC (RBC) [Mass/Vol] 33.7 g/dL 32-36 [facility] Mean platelet volume determi nationOrdered By: [facility] on 01-02-2025 Platelet mean volume (Bld) [Entitic vol] 9.5 fL 6.2-12.0 [facility] Monocyte percentageOrdered B y: [facility] on 01-02-2025 Monocytes/100 WBC (Bld) 4.7 % 0-10 [facility] Neutrophil percentageOrdered By: [facility] on 01-02-2025 Neutrophils/100 WBC (Bld) 49.9 % 47-70 [facility] No Panel InformationOrdered By: [facility] on 01-02-2025 Hepatitis Interpretation See comment [facility] Comment on above: TEST RESULTS LIMITSV iral Hepatitis HBV, HCV HBsAg Screen Negative Negative Hep B Surface Ab, Qual Non Reactive Non Reactive: Not immune to HBV infection. Equivocal: Unable to determine if anti-HBs is present at levels consistent with immunity. Reactive: Anti-HBs concentration detected at greater than 10 mIU/mL. Individual is considered to be immune to infection with HBV. Hep B Core Ab, Tot Negative Negative Client Requested Flag Interpretation HBV Serology Interpretation Chart Interpretation HBsAg anti-HBs anti-HBc anti-HBc IgM Montaño - Analyte present: + Analyte absent: - Test not indicated: TNI Susceptible (never infected and no evidence - - - TNI of vaccination) Immune due to natural resolved infection - + + TNI Immune due to vaccination - + - TNI Acute Infection + - + + Chronic infection + - + - Interpretation unclear* - - + +/- *Multiple possibilities: resolved infection (most common); false- positive anti-HBc (susceptible); low-level chronic infection; resolving acute infection.HCV Ab Non Reactive Non ReactiveInterpretation: Not infected with HCV unless early or acute infection is suspected (which may be delayed in an immunocompromised individual), or other evidence exists to indicate HCV infection. ____ TESTING PERFORMED AT [facility]. ORIGINAL REPORT ON FILE IN LAB CONTAINS ADDITIONAL TEST SITE INFORMATION. Unsaturated Iron Binding Capacity 121 ug/dL Low 228-428 [facility] Nucleated red blood cell per centageOrdered By: Andres Schneider on 01-02-2025 Nucleated RBC/100 WBC (Bld) [Ratio] 0 % 0-5 [facility] Oncology Visit Reporton Oncology Visit Report Normal [facility] Partial Thromboplast Timeon 01-02-2025 aPTT Coag (Bld) [Time] 27.3 s Normal 24.1-36.2 [facility] Comment on above: Performed By: #### L 3000.0800, L101.9900, L501.2300, L503.6550, L100.0100, L100.9950, L504.2610, L3100.1350, L300.3900, L3100.1960, L300.4310 ####[facility] [address] [place], [place], [id number] Phosphoruson 01-02-2025 Phosphate [Mass/Vol] 3.5 mg/dL Normal 2.7-4.5 [facility] Comment on above: Performed By: #### L 3000.0800, L101.9900, L501.2300, L503.6550, L100.0100, L100.9950, L504.2610, L3100.1350, L300.3900, L3100.1960, L300.4310 ####[facility] [address] [place], [place], [id number] Platelet countOrdered By: Eve Schneider on 01-02-2025 Platelets (Bld) [#/Vol] 117 10*3/uL Low 150-450 [facility] Potassium measurement (mass/ volume)Ordered By: Andres Schneider on 01-02-2025 Potassium (Unsp spec) [Mass/Vol] 4.6 mmol/L 3.3-5.1 [facility] Prothrombin Time w/INRon INR Coag (PPP) [Relative time] 1.0 {INR} Normal [facility] Comment on above: Performed By: #### L 3000.0800, L101.9900, L501.2300, L503.6550, L100.0100, L100.9950, L504.2610, L3100.1350, L300.3900, L3100.1960, L300.4310 ####[facility] [address] [place], [place], [id number] PT Coag (PPP) [Time] 13.6 s Normal 11.7-14.9 [facility] Comment on above: Performed By: #### L 3000.0800, L101.9900, L501.2300, L503.6550, L100.0100, L100.9950, L504.2610, L3100.1350, L300.3900, L3100.1960, L300.4310 ####[facility] [address] [place], [place], [address] Prothrombin timeOrdered By: Andres Schneider on 01-02-2025 PT Coag (PPP) [Time] 13.6 s 11.7-14.9 [facility] RBC Auto (Bld) [#/Vol]Ordere d By: Andres Schneider on 01-02-2025 RBC (Bld) [#/Vol] 4.75 10*6/uL 4.6-6.2 [facility] Retic Panelon 01-02-2025 IM RET FRACTION 5.60 Normal 3.00-15.90 [facility] Comment on above: Performed By: #### L 3000.0800, L101.9900, L501.2300, L503.6550, L100.0100, L100.9950, L504.2610, L3100.1350, L300.3900, L3100.1960, L300.4310 ####[facility] [address] [place], [place], [address] IPF 1.6 Normal 1.0-7.9 [facility] Comment on above: Result Comment: Low PLT + Low IPF suggest a bone marrow production disorderLow PLT + high IPF suggests peripheral destruction(e.g.ITP, TTP, HIT, DIC, autoimmune) or bone marrow recoveryTrending of serial IPF measurements is recommended whenevaluating for bone marrow responesValue above normal range indicates an increase in RBCcellular response from bone marrow. Performed By: #### L 3000.0800, L101.9900, L501.2300, L503.6550, L100.0100, L100.9950, L504.2610, L3100.1350, L300.3900, L3100.1960, L300.4310 ####[facility] [address] [place], [place], [id number] RET-HE 34.6 pg Normal 30-35 [facility] Comment on above: Performed By: #### L 3000.0800, L101.9900, L501.2300, L503.6550, L100.0100, L100.9950, L504.2610, L3100.1350, L300.3900, L3100.1960, L300.4310 ####[facility] [address] [place], [place], [address] Retic Count 1.45 Normal 0.5-1.5 [facility] Comment on above: Performed By: #### L 3000.0800, L101.9900, L501.2300, L503.6550, L100.0100, L100.9950, L504.2610, L3100.1350, L300.3900, L3100.1960, L300.4310 ####[facility] [address] [place], [place], [id number] Reticulocyte hemoglobin equi valent (RET-He) measurementOrdered By: Andres Schneider on 01-02-2025 Hemoglobin (Reticulocytes) [Entitic mass] 34.6 pg 30-35 [facility] Reticulocytes Auto (Bld) [#/ Vol]Ordered By: Andres Schneider on 01-02-2025 Reticulocytes/100 RBC (Bld) 1.45 % 0.5-1.5 [facility] Serum creatinine measurement (mass/volume)Ordered By: Andres Schneider on 01-02-2025 Creatinine [Mass/Vol] 1.08 mg/dL 0.70-1.20 [facility] Serum globulin measurementOr dered By: Andres Schneider on 01-02-2025 Globulin (S) [Mass/Vol] 2.3 g/dL 2.2-4.2 [facility] Serum glucose measurement (m ass/volume)Ordered By: Andres Schneider on 01-02-2025 Glucose [Mass/Vol] 96 mg/dL 70-99 [facility] Serum hepatitis B virus core antibody detectionOrdered By: Andres Schneider on 01-02-2025 HBV core Ab Ql (S) Not Reportable [facility] Serum or plasma C reactive p rotein measurement (mass/volume)Ordered By: Andres Schneider on 01-02-2025 CRP [Mass/Vol] mg/L 0.0-3.0 [facility] Serum or plasma alanine murphy otransferase (ALT) measurementOrdered By: Andres Schneider on 01-02-2025 ALT [Catalytic activity/Vol] 27 U/L <47 [facility] Serum or plasma albumin patti urement (mass/volume)Ordered By: Andres Schneider on 01-02-2025 Albumin [Mass/Vol] 4.4 g/dL 3.4-4.8 [facility] Serum or plasma albumin/glob ulin mass ratioOrdered By: [facility] on 01-02-2025 Albumin/Globulin [Mass ratio] 1.9 {ratio} 0.9-2.4 [facility] Serum or plasma alkaline shy sphatase measurementOrdered By: [facility] ALP [Catalytic activity/Vol] 94 U/L 40-129 [facility] Serum or plasma calcium patti urement (mass/volume)Ordered By: Andres Schneider on 01-02-2025 Calcium [Mass/Vol] 9.4 mg/dL 7.6-11.0 [facility] Serum or plasma erythropoiet in (EPO) measurement (units/volume)Ordered By: Andres Schneider on 01-02-2025 Erythropoietin (EPO) Qn See comment [facility] Comment on above: TEST RESULTS LIMITSE rythropoietin (EPO), Serum Erythropoietin 10.1 mIU/mL 2.6-18.5 Michael Sp[employer] DxI 800 Immunoassay System Values obtained with different assay methods or kits cannot be used interchangeably. Results cannot be interpreted as absolute evidence of the presence or absence of malignant disease. TESTING PERFORMED AT [facility]. ORIGINAL REPORT ON FILE IN LAB CONTAINS ADDITIONAL TEST SITE INFORMATION. Serum or plasma ferritin kristie surement (mass/volume)Ordered By: Andres Schneider on 01-02-2025 Ferritin [Mass/Vol] 424 ng/mL High 37-417 [facility] Serum or plasma hepatitis B virus surface antigen detection by immunoassayOrdered By: Andres Schneider on 01-02-2025 HBV surface Ag IA Ql Not Reportable [facility] Serum or plasma iron saturat ion measurement (mass fraction)Ordered By: Andres Schneider on 01-02-2025 Iron saturation [Mass fraction] 52.0 % 9-55 [facility] Serum or plasma urea nitroge n measurement (mass/volume)Ordered By: Andres Schneider on 01-02-2025 Urea nitrogen [Mass/Vol] 22 mg/dL High 4-19 [facility] Sodium levelOrdered By: Greg Schneider on 01-02-2025 Sodium [Moles/Vol] 140 mmol/L 133-145 [facility] Total proteinOrdered By: Asif Schneider on 01-02-2025 Protein [Mass/Vol] 6.7 g/dL 5.9-8.4 [facility] Vitamin B12on 01-02-2025 Cobalamin (Vitamin B12) [Mass/Vol] 411 pg/mL Normal 180-914 [facility] Comment on above: Performed By: #### L 501.5101, L503.6030, L501.6710, L500.4050, L501.5200, L503.0106 ####[facility] [address] [place], [address] Vitamin B12 ser/plasOrdered By: Andres Schneider on 01-02-2025 Cobalamin (Vitamin B12) [Mass/Vol] 411 pg/mL 180-914 [facility] White blood cell (WBC) count Ordered By: Andres Schneider on 01-02-2025 WBC (Bld) [#/Vol] 6.2 10*3/uL 4.4-11.0 [facility] Von Willebrand Profon 2024 FAC VIII ACT 99 Normal 56-140 [facility] Comment on above: Order Comment: Test( s) 837923-xnf Willebrand Factor (vWF) Agwas developed and its performance characteristicsdetermined by [employer]. It has not been cleared or approvedby the Food and Drug Administration. Performed By: #### L 4500.8000, L100.0100, L300.4700, L300.3900, L300.4310 ####[facility] [address] [place], [address] VW Interp Note Normal . [facility] Comment on above: Order Comment: Test( s) 661288-tst Willebrand Factor (vWF) Agwas developed and its performance characteristicsdetermined by [employer]. It has not been cleared or approvedby the Food and Drug Administration. Result Comment: ---- COAGULATION:VON WILLEBRAND FACTOR ASSESSMENT CURRENT RESULTS ASSESSMENTThe VWF:Ag is normal. The VWF:Activity is elevated. TheFVIII is normal.VON WILLEBRAND FACTOR ASSESSMENT CURRENT RESULTSINTERPRETATION-These results are not consistent with a diagnosis of vonWillebrand Disease.VON WILLEBRAND FACTOR ASSESSMENT-Results may be falsely elevated and possibly falsely normalas VWF and FVIII may increase in samples drawn from patients(particularly children) who are visibly stressed at the timeof phlebotomy, as acute phase reactants, or in response tocertain drug therapies such as desmopressin. Repeat testingmay be necessary before excluding a diagnosis of VWDespecially if the clinical suspicion is high for anunderlying bleeding disorder. The setting for phlebotomyshould be as calm as possible and patients should beencouraged to sit quietly prior to the blood draw.VON WILLEBRAND FACTOR ASSESSMENT DEFINITIONS-VWD - von Willebrand disease; VWF - von Willebrand factor;VWF:Ag - VWF antigen; VWF:Activity - VWF activity; FVIII -factor VIII activity.-For questions regarding panel interpretation, please [facility] at . DISCLAIMERThese assessments and interpretations are provided as aconvenience in support of the physician-patient relationshipand are not intended to replace the physician's clinicaljudgment. They are derived from national guidelines inaddition to other evidence and expert opinion. The clinicianshould consider this information within the context ofclinical opinion and the individual patient.SEE GUIDANCE FOR VON WILLEBRAND FACTOR ASSESSMENT: (1) [facility] [place]. The Diagnosis,Evaluation and Management of von Willebrand Disease.MD Mery: National Institutes of Health Rfqjgjkgitl07-2478. 2007. Available athttp://www.nhlbi.nih.gov/guidelines/vwd/. (2) Adal schmidtl. Am J Hematol. 2009; 84(6):366-370. (3) Naveed M et al.Haemophilia. 2004;10(3):199-217. (4) Maria G SERRATO et al.Haemophilia. 2004; 10(3):218-231.Performed at: [facility] [address] [id number] Director: Vladimir Stapleton MD, Phone: [phone] at: [facility] [employer] [facility] Clinical / [address] [id number] Director: Becky Biggs MD, Phone: [phone] Performed By: #### L 4500.8000, L100.0100, L300.4700, L300.3900, L300.4310 ####[facility] [address] [place], [address] vWF ACTIVITY 233 Abnormal 50-200 [facility] Comment on above: Order Comment: Test( s) 566162-xht Willebrand Factor (vWF) Agwas developed and its performance characteristicsdetermined by [employer]. It has not been cleared or approvedby the Food and Drug Administration. Performed By: #### L 4500.8000, L100.0100, L300.4700, L300.3900, L300.4310 ####[facility] [address] [place], [place], [id number] vWF Ag 164 Normal 50-200 [facility] Comment on above: Order Comment: Test( s) 042148-qco Willebrand Factor (vWF) Agwas developed and its performance characteristicsdetermined by [employer]. It has not been cleared or approvedby the Food and Drug Administration. Performed By: #### L 4500.8000, L100.0100, L300.4700, L300.3900, L300.4310 ####[facility] [address] [place], [place], [address] Absolute lymphocyte countOrd ered By: Tre García on 11-29-2024 Lymphocytes Auto (Unsp spec) [#/Vol] 2.18 10*3/uL 0.83-4.51 [facility] Absolute neutrophil countOrd ered By: Tre García on 11-29-2024 Neutrophils (Bld) [#/Vol] 3.7 10*3/uL 2.0-7.7 [facility] Activated partial thrombopla stin time (aPTT) in platelet poor plasma by coagulation aOrdered By: Tre García on 11-29-2024 aPTT Coag (PPP) [Time] 26.9 s 24.1-36.2 [facility] Automated lymphocyte count a s percentage of total leukocytesOrdered By: Tre García on 11-29-2024 Lymphocytes/100 WBC Auto (Unsp spec) 34.9 % 19-41 [facility] Basophil percentageOrdered B y: Tre García on 11-29-2024 Basophils/100 WBC (Bld) 0.2 % 0-1 [facility] CBC W/Diff, Automatedon 07-0 Absolute Lymph 2.18 X10 3/uL Normal 0.83-4.51 [facility] Comment on above: Performed By: #### L 4500.8000, L100.0100, L300.4700, L300.3900, L300.4310 ####[facility] [address] [place], [place], [address] Absolute Neut 3.7 X10 3/uL Normal 2.0-7.7 [facility] Comment on above: Performed By: #### L 4500.8000, L100.0100, L300.4700, L300.3900, L300.4310 ####[facility] [address] [place], [address] Basophils/100 WBC (Bld) 0.2 % Normal 0-1 [facility] Comment on above: Performed By: #### L 4500.8000, L100.0100, L300.4700, L300.3900, L300.4310 ####[facility] [address] [place], [address] Eosinophils/100 WBC (Bld) 0.5 % Normal 0-5 [facility] Comment on above: Performed By: #### L 4500.8000, L100.0100, L300.4700, L300.3900, L300.4310 ####[facility] [address] [place], [address] Erythrocyte distribution width (RBC) [Ratio] 13.2 % Normal 11.6-14.6 [facility] Comment on above: Performed By: #### L 4500.8000, L100.0100, L300.4700, L300.3900, L300.4310 ####[facility] [address] [place], [address] Hematocrit (Bld) [Volume fraction] 43.1 % Normal 40-54 [facility] Comment on above: Performed By: #### L 4500.8000, L100.0100, L300.4700, L300.3900, L300.4310 ####[facility] [address] [place], [address] Hemoglobin (Bld) [Mass/Vol] 14.9 g/dL Normal 13.0-16.5 [facility] Comment on above: Performed By: #### L 4500.8000, L100.0100, L300.4700, L300.3900, L300.4310 ####[facility] [address] [place], [address] IG% 0.200 Normal 0.0-0.9 [facility] Comment on above: Result Comment: IG% - Immature Granulocytes (promyelocytes, myelocytes andmetamyelocytes) > 1% indicates that a LEFT SHIFT is Present. Performed By: #### L 4500.8000, L100.0100, L300.4700, L300.3900, L300.4310 ####[facility] [address] [place], [address] Lymphocytes/100 WBC (Bld) 34.9 % Normal 19-41 [facility] Comment on above: Performed By: #### L 4500.8000, L100.0100, L300.4700, L300.3900, L300.4310 ####[facility] [address] [place], [address] MCH (RBC) [Entitic mass] 31.6 pg Normal 27.0-32.0 [facility] Comment on above: Performed By: #### L 4500.8000, L100.0100, L300.4700, L300.3900, L300.4310 ####[facility] [address] [place], [address] MCHC (RBC) [Mass/Vol] 34.6 g/dL Normal 32-36 [facility] Comment on above: Performed By: #### L 4500.8000, L100.0100, L300.4700, L300.3900, L300.4310 ####[facility] [address] [place], [address] MCV (RBC) [Entitic vol] 91.3 fL Normal 80-94 [facility] Comment on above: Performed By: #### L 4500.8000, L100.0100, L300.4700, L300.3900, L300.4310 ####[facility] [address] [place], [address] Monocytes/100 WBC (Bld) 4.6 % Normal 0-10 [facility] Comment on above: Performed By: #### L 4500.8000, L100.0100, L300.4700, L300.3900, L300.4310 ####[facility] [address] [place], [address] Neutrophils/100 WBC (Bld) 59.6 % Normal 47-70 [facility] Comment on above: Performed By: #### L 4500.8000, L100.0100, L300.4700, L300.3900, L300.4310 ####[facility] [address] [place], [address] Nucleated RBC (Bld) [#/Vol] 0 10*3/uL Normal 0-5 [facility] Comment on above: Performed By: #### L 4500.8000, L100.0100, L300.4700, L300.3900, L300.4310 ####[facility] [address] [place], [address] Platelet mean volume (Bld) [Entitic vol] 9.2 fL Normal 6.2-12.0 [facility] Comment on above: Performed By: #### L 4500.8000, L100.0100, L300.4700, L300.3900, L300.4310 ####[facility] [address] [place], [address] Platelets (Bld) [#/Vol] 114 10*3/uL Low 150-450 [facility] Comment on above: Performed By: #### L 4500.8000, L100.0100, L300.4700, L300.3900, L300.4310 ####[facility] [address] [place], [address] RBC (Bld) [#/Vol] 4.72 10*6/uL Normal 4.6-6.2 [facility] Comment on above: Performed By: #### L 4500.8000, L100.0100, L300.4700, L300.3900, L300.4310 ####[facility] [address] [place], [address] RDW SD 44.9 fl High 35.1-43.9 [facility] Comment on above: Performed By: #### L 4500.8000, L100.0100, L300.4700, L300.3900, L300.4310 ####[facility] [address] [place], [address] WBC (Bld) [#/Vol] 6.3 10*3/uL Normal 4.4-11.0 [facility] Comment on above: Performed By: #### L 4500.8000, L100.0100, L300.4700, L300.3900, L300.4310 ####[facility] [address] [place], [address] Eosinophil percentageOrdered By: Tre García on 11-29-2024 Eosinophils/100 WBC (Bld) 0.5 % 0-5 [facility] Erythrocyte distribution wid th ratioOrdered By: Tre Avilezok on 11-29-2024 Erythrocyte distribution width (RBC) [Ratio] 13.2 % 11.6-14.6 [facility] Erythrocyte distribution wid th standard deviationOrdered By: Tre Avilezok on 11-29-2024 Erythrocyte distribution width (RBC) [Ratio] 44.9 fl High 35.1-43.9 [facility] Fibrinogenon 11-29-2024 FIBRINOGEN 398 mg/dl Normal 203-444 [facility] Comment on above: Performed By: #### L 4500.8000, L100.0100, L300.4700, L300.3900, L300.4310 ####[facility] [address] [place], [address] Hematocrit Auto (Bld) [Volum e fraction]Ordered By: Tre García on 11-29-2024 Hematocrit (Bld) [Volume fraction] 43.1 % 40-54 [facility] Hemoglobin measurementOrdere d By: Tre García on 11-29-2024 Hemoglobin (Bld) [Mass/Vol] 14.9 g/dL 13.0-16.5 [facility] Immature granulocytes/100 WB C Auto (Bld)Ordered By: Tre García on 11-29-2024 Immature granulocytes/100 WBC (Bld) 0.200 % 0.0-0.9 [facility] Comment on above: IG% - Immature Granu locytes (promyelocytes, myelocytes and metamyelocytes) > 1% indicates that a LEFT SHIFT is Present. International normalized rat io (INR) calculationOrdered By: Tre García on 11-29-2024 INR Coag (Bld) [Relative time] 1.1 {INR} [facility] MCV (mean corpuscular volume ) determinationOrdered By: Tre García on 11-29-2024 MCV (RBC) [Entitic vol] 91.3 fL 80-94 [facility] Mean corpuscular hemoglobin (MCH) determinationOrdered By: Tre García on 11-29-2024 MCH (RBC) [Entitic mass] 31.6 pg 27.0-32.0 [facility] Mean corpuscular hemoglobin concentration (MCHC) determinationOrdered By: Tre García on 11-29-2024 MCHC (RBC) [Mass/Vol] 34.6 g/dL 32-36 [facility] Mean platelet volume determi nationOrdered By: Tre García on 11-29-2024 Platelet mean volume (Bld) [Entitic vol] 9.2 fL 6.2-12.0 [facility] Monocyte percentageOrdered B y: Tre García on 11-29-2024 Monocytes/100 WBC (Bld) 4.6 % 0-10 [facility] Neutrophil percentageOrdered By: Tre García on 11-29-2024 Neutrophils/100 WBC (Bld) 59.6 % 47-70 [facility] Nucleated red blood cell per centageOrdered By: Tre García on 11-29-2024 Nucleated RBC/100 WBC (Bld) [Ratio] 0 % 0-5 [facility] Partial Thromboplast Timeon 11-29-2024 aPTT Coag (Bld) [Time] 26.9 s Normal 24.1-36.2 [facility] Comment on above: Performed By: #### L 4500.8000, L100.0100, L300.4700, L300.3900, L300.4310 ####[facility] [address] [place], [address] Platelet countOrdered By: Nito García on 11-29-2024 Platelets (Bld) [#/Vol] 114 10*3/uL Low 150-450 [facility] Platelet poor plasma von Jorge lebrand factor (vWF) antigen actual/normal ratio by immunOrdered By: Tre García on 11-29-2024 vWf Ag actual/normal IA (PPP) [Relative mass conc] 164 % 50-200 [facility] Prothrombin Time w/INRon INR Coag (PPP) [Relative time] 1.1 {INR} Normal [facility] Comment on above: Performed By: #### L 4500.8000, L100.0100, L300.4700, L300.3900, L300.4310 ####[facility] [address] [place], [address] PT Coag (PPP) [Time] 14.1 s Normal 11.7-14.9 [facility] Comment on above: Performed By: #### L 4500.8000, L100.0100, L300.4700, L300.3900, L300.4310 ####[facility] [address] [place], [address] Prothrombin timeOrdered By: Tre García on 11-29-2024 PT Coag (PPP) [Time] 14.1 s 11.7-14.9 [facility] RBC Auto (Bld) [#/Vol]Ordere d By: Tre García on 11-29-2024 RBC (Bld) [#/Vol] 4.72 10*6/uL 4.6-6.2 [facility] Von Willebrand factor activi tyOrdered By: Tre García on 11-29-2024 vWf ristocetin cofactor act actual/normal Platelet aggregation (PPP) [Relative time] 233 % High 50-200 [facility] White blood cell (WBC) count Ordered By: Tre García on 11-29-2024 WBC (Bld) [#/Vol] 6.3 10*3/uL 4.4-11.0 [facility] Echocardiogram study reportO rdered By: Ashu Andrade on 11-27-2024 Study report [facility] [address] [place] [address] Echo Complete 11/27/24 1120 MR#: [id number] Acct: [id number] Name: VALENTINA CABRERA Rep #:[id number] : 1945 79 From: Ashu Andrade MD Attending Dr: DO Verna Peraza tatus: ADM MARIA ISABEL Ordering Dr: Megan Garcia MD Date: 11/25/24 Location: U Sex: M C Admitted: 11/25/24 Reason For Study Reason For Study: TIA/CVA Procedure This was a 2D Doppler, Color Flow transthoracic echocardiogram. Exam performed portable in patient room. Left Ventricle Normal LV size. The estimated ejection fraction is 55-60 %. Right Ventricle Normal right ventricle. Normal systolic function. Atria Normal left atrium. Normal right atrium. Mitral Valve There is moderate mitral annular calcification. Trivial mitral valve insufficiency. Tricuspid Valve Normal tricuspid valve. Aortic Valve Aortic sclerosis, no stenosis. Mild (1+) eccentric aortic valve insufficiency. Pulmonic Valve The pulmonic valve is not well visualized. Great Vessels Normal sized aortic root. Pericardium/Pleural No pericardial effusion. MMode/2D Measurements & Calculations LVIDd: 3.6 cm IVSd: 1.1 cm LVOT diam: 2.0 cm LVIDs: 2.5 cm LVPWd: 0.92 cm LVOT area: 3.1 cm2 RVDd: 3.8 cm FS: 29.6 % asc Aorta Diam: 4.0 cm LAV(MOD-bp): 47.3 ml LVAd ap4: 21.3 cm2 LAV(MOD-bp) Indexed: 23.3 ml/m2 LVLd ap4: 7.5 cm LAV(MOD-sp2): 50.5 ml EDV(MOD-sp4): 49.4 ml LAV(MOD-sp4): 37.9 ml EDV(sp4-el): 51.2 ml LVAs ap4: 11.9 cm2 LVLs ap4: 6.4 cm ESV(MOD-sp4): 19.5 ml ESV(sp4-el): 18.9 ml EF(MOD-sp4): 60.5 % EF(sp4-el): 63.1 % __ LVAd ap2: 24.6 cm2 SV(MOD-sp4): 29.9 ml SV(MOD-sp2): 38.4 ml LVLd ap2: 7.7 cm SI(MOD-sp4): 14.7 ml/m2 SI(MOD-sp2): 18.9 ml/m2 EDV(MOD-sp2): 64.8 ml EDV(sp2-el): 66.8 ml LVAs ap2: 14.4 cm2 LVLs ap2: 6.7 cm ESV(MOD-sp2): 26.4 ml ESV(sp2-el): 26.5 ml EF(MOD-sp2): 59.3 % SV(sp4-el): 32.3 ml Ao sinus diam: 3.[address] Junction: 3.3 cm __ LA dimension(2D): 3.9 cm LA A4 area: 14.8 cm2 RA A4 area: 8.2 cm2 __ TAPSE: 1.8 cm Time Measurements MV dec time: 0.39 sec Doppler Measurements & Calculations MV E max chandni: 79.7 cm/sec Lat Peak E' Chandni: 9.1 cm/sec Med Peak E' Chandni: 10.3 cm/sec MV A max chandni: 130.2 cm/sec E/E' lat: 8.8 E/E' med: 7.7 MV E/A: 0.61 __ MV dec slope: 203.5 cm/sec2 Ao V2 max: 130.9 cm/sec AI max chandni: 396.8 cm/sec Ao max P.9 mmHg AI max P.9 mmHg Ao V2 mean: 78.9 cm/sec AI dec slope: 390.8 cm/sec2 Ao mean P.0 mmHg AI P1/2t: 297.4 msec Ao V2 VTI: 24.8 cm AV (velocity ratio): 0.91 TIGIST(I,D): 2.8 cm2 TIGIST(V,D): 2.7 cm2 __ LV V1 max: 112.9 cm/sec SV(LVOT): 69.1 ml PA V2 max: 120.4 cm/sec LV V1 max P.1 mmHg LV V1 mean P.5 mmHg LV V1 mean: 72.8 cm/sec LV V1 VTI: 22.4 cm TR max chandni: 254.9 cm/sec TR max P.0 mmHg ECHO/Echo Complete Interpretation Summary The estimated ejection fraction is 55-60 %. Mild aortic incompetence No prior echo to compare. Ordering Physician: Megan Garcia Referring Physician: Tre García Chi Performed By: Elin Browne RDCS 11/27/24 1333 Date _ Ashu Andrade MD CC: Dr. Megan Garcia MD; Dr. Marilin Avila DO; Dr. Tre García MD; Dr. Neo Clifford DO ~ Date Dictated: 11/27/24 1120 Date Transcribed: 11/27/241332 Books Salesperson: Signed [facility] Work Phone: Absolute lymphocyte countOrd ered By: Megan Jose on 11-26-2024 Lymphocytes Auto (Unsp spec) [#/Vol] 2.94 10*3/uL 0.83-4.51 [facility] Absolute neutrophil countOrd ered By: Megan Jose on 11-26-2024 Neutrophils (Bld) [#/Vol] 3.0 10*3/uL 2.0-7.7 [facility] Anion gap in Serum or Plasma Ordered By: [facility] Jose on 11-26-2024 Anion gap [Moles/Vol] 9 mmol/L 5-15 [facility] Automated lymphocyte count a s percentage of total leukocytesOrdered By: Megan Jose on 11-26-2024 Lymphocytes/100 WBC Auto (Unsp spec) 46.7 % High 19-41 [facility] BUN/creatinine ratioOrdered By: Megan Jose on 11-26-2024 Urea nitrogen/Creatinine [Mass ratio] 17.5 mg/mg 10-20 [facility] Basophil percentageOrdered B y: Megan Jose on 11-26-2024 Basophils/100 WBC (Bld) 0.3 % 0-1 [facility] Bilirubin, totalOrdered By: Megan Jose on 11-26-2024 Bilirubin [Mass/Vol] 0.71 mg/dL 0.00-1.30 [facility] Brain without Contraston Brain without Contrast Normal [facility] CBC W/Diff, Automatedon 10-30 Absolute Lymph 2.94 X10 3/uL Normal 0.83-4.51 [facility] Comment on above: Performed By: #### L 500.4050, L501.9520, L501.9985, L500.4100, L100.0100 ####[facility] [address] [place], [address] Absolute Neut 3.0 X10 3/uL Normal 2.0-7.7 [facility] Comment on above: Performed By: #### L 500.4050, L501.9520, L501.9985, L500.4100, L100.0100 ####[facility] [address] [place], [address] Basophils/100 WBC (Bld) 0.3 % Normal 0-1 [facility] Comment on above: Performed By: #### L 500.4050, L501.9520, L501.9985, L500.4100, L100.0100 ####[facility] [address] [place], [address] Eosinophils/100 WBC (Bld) 0.5 % Normal 0-5 [facility] Comment on above: Performed By: #### L 500.4050, L501.9520, L501.9985, L500.4100, L100.0100 ####[facility] [address] [place], [address] Erythrocyte distribution width (RBC) [Ratio] 13.4 % Normal 11.6-14.6 [facility] Comment on above: Performed By: #### L 500.4050, L501.9520, L501.9985, L500.4100, L100.0100 ####[facility] [address] [place], [address] Hematocrit (Bld) [Volume fraction] 39.9 % Low 40-54 [facility] Comment on above: Performed By: #### L 500.4050, L501.9520, L501.9985, L500.4100, L100.0100 ####[facility] [address] [place], [address] Hemoglobin (Bld) [Mass/Vol] 13.6 g/dL Normal 13.0-16.5 [facility] Comment on above: Performed By: #### L 500.4050, L501.9520, L501.9985, L500.4100, L100.0100 ####[facility] [address] [place], [address] IG% 0.200 Normal 0.0-0.9 [facility] Comment on above: Result Comment: IG% - Immature Granulocytes (promyelocytes, myelocytes andmetamyelocytes) > 1% indicates that a LEFT SHIFT is Present. Performed By: #### L 500.4050, L501.9520, L501.9985, L500.4100, L100.0100 ####[facility] [address] [place], [address] Lymphocytes/100 WBC (Bld) 46.7 % High 19-41 [facility] Comment on above: Performed By: #### L 500.4050, L501.9520, L501.9985, L500.4100, L100.0100 ####[facility] [address] [place], [address] MCH (RBC) [Entitic mass] 31.4 pg Normal 27.0-32.0 [facility] Comment on above: Performed By: #### L 500.4050, L501.9520, L501.9985, L500.4100, L100.0100 ####[facility] [address] [place], [address] MCHC (RBC) [Mass/Vol] 34.1 g/dL Normal 32-36 [facility] Comment on above: Performed By: #### L 500.4050, L501.9520, L501.9985, L500.4100, L100.0100 ####[facility] [address] [place], [address] MCV (RBC) [Entitic vol] 92.1 fL Normal 80-94 [facility] Comment on above: Performed By: #### L 500.4050, L501.9520, L501.9985, L500.4100, L100.0100 ####[facility] [address] [place], [address] Monocytes/100 WBC (Bld) 4.5 % Normal 0-10 [facility] Comment on above: Performed By: #### L 500.4050, L501.9520, L501.9985, L500.4100, L100.0100 ####[facility] [address] [place], [address] Neutrophils/100 WBC (Bld) 47.8 % Normal 47-70 [facility] Comment on above: Performed By: #### L 500.4050, L501.9520, L501.9985, L500.4100, L100.0100 ####[facility] [address] [place], [address] Nucleated RBC (Bld) [#/Vol] 0.3 10*3/uL Normal 0-5 [facility] Comment on above: Performed By: #### L 500.4050, L501.9520, L501.9985, L500.4100, L100.0100 ####[facility] [address] [place], [address] Platelet mean volume (Bld) [Entitic vol] 9.3 fL Normal 6.2-12.0 [facility] Comment on above: Performed By: #### L 500.4050, L501.9520, L501.9985, L500.4100, L100.0100 ####[facility] [address] [place], [address] Platelets (Bld) [#/Vol] 102 10*3/uL Low 150-450 [facility] Comment on above: Performed By: #### L 500.4050, L501.9520, L501.9985, L500.4100, L100.0100 ####[facility] [address] [place], [address] RBC (Bld) [#/Vol] 4.33 10*6/uL Low 4.6-6.2 [facility] Comment on above: Performed By: #### L 500.4050, L501.9520, L501.9985, L500.4100, L100.0100 ####[facility] [address] [place], [address] RDW SD 45.8 fl High 35.1-43.9 [facility] Comment on above: Performed By: #### L 500.4050, L501.9520, L501.9985, L500.4100, L100.0100 ####[facility] [address] [place], [address] WBC (Bld) [#/Vol] 6.3 10*3/uL Normal 4.4-11.0 [facility] Comment on above: Performed By: #### L 500.4050, L501.9520, L501.9985, L500.4100, L100.0100 ####[facility] [address] [place], [address] Calculated very low density lipoprotein (VLDL) cholesterol measurementOrdered By: Megan Garcia on 11-26-2024 Calculated very low density lipoprotein (VLDL) cholesterol measurement 9 mg/dL 5-40 [facility] Carbon dioxide, total [Moles /volume] in Central venous bloodOrdered By: Megan Garcia on 11-26-2024 CO2 [Moles/Vol] 21.7 mmol/L 21.0-32.0 [facility] Chloride assayOrdered By: Lani Garcia on 11-26-2024 Chloride [Moles/Vol] 111 mmol/L High 98-108 [facility] Comprehensive Metabolic Prof ilon 11-26-2024 Albumin [Mass/Vol] 3.6 g/dL Normal 3.4-4.8 [facility] Comment on above: Performed By: #### L 500.4050, L501.9520, L501.9985, L500.4100, L100.0100 ####[facility] [address] [place], [address] Albumin/Globulin [Mass ratio] 2.0 {ratio} Normal 0.9-2.4 [facility] Comment on above: Performed By: #### L 500.4050, L501.9520, L501.9985, L500.4100, L100.0100 ####[facility] [address] [place], [address] ALK PHOS 74 U/L Normal 40-129 [facility] Comment on above: Performed By: #### L 500.4050, L501.9520, L501.9985, L500.4100, L100.0100 ####[facility] [address] [place], [address] ALT [Catalytic activity/Vol] 22 U/L Normal <=46 [facility] Comment on above: Performed By: #### L 500.4050, L501.9520, L501.9985, L500.4100, L100.0100 ####[facility] [address] [place], [address] AST [Catalytic activity/Vol] 24 U/L Normal <=37 [facility] Comment on above: Performed By: #### L 500.4050, L501.9520, L501.9985, L500.4100, L100.0100 ####[facility] [address] [place], [address] Bilirubin [Mass/Vol] 0.71 mg/dL Normal 0.00-1.30 [facility] Comment on above: Performed By: #### L 500.4050, L501.9520, L501.9985, L500.4100, L100.0100 ####[facility] [address] [place], [address] BUN/CRE 17.5 RATIO Normal 10-20 [facility] Comment on above: Performed By: #### L 500.4050, L501.9520, L501.9985, L500.4100, L100.0100 ####[facility] [address] [place], [address] Calcium [Mass/Vol] 8.8 mg/dL Normal 7.6-11.0 [facility] Comment on above: Performed By: #### L 500.4050, L501.9520, L501.9985, L500.4100, L100.0100 ####[facility] [address] [place], [address] Chloride [Moles/Vol] 111 mmol/L High 98-108 [facility] Comment on above: Performed By: #### L 500.4050, L501.9520, L501.9985, L500.4100, L100.0100 ####[facility] [address] [place], [address] CO2 [Moles/Vol] 21.7 mmol/L Normal 21.0-32.0 [facility] Comment on above: Performed By: #### L 500.4050, L501.9520, L501.9985, L500.4100, L100.0100 ####[facility] [address] [place], [address] Creatinine [Mass/Vol] 0.94 mg/dL Normal 0.70-1.20 [facility] Comment on above: Performed By: #### L 500.4050, L501.9520, L501.9985, L500.4100, L100.0100 ####[facility] [address] [place], [address] ECRCL 68.23 ml/min Normal 50-250 [facility] Comment on above: Performed By: #### L 500.4050, L501.9520, L501.9985, L500.4100, L100.0100 ####[facility] [address] [place], [address] GAP 9 Normal 5-15 [facility] Comment on above: Performed By: #### L 500.4050, L501.9520, L501.9985, L500.4100, L100.0100 ####[facility] [address] [place], [address] GFR/1.73 sq M.predicted among non-blacks MDRD (S/P/Bld) [Vol rate/Area] 82 mL/min/{1.73_m2} Normal >60 [facility] Comment on above: Result Comment: mL/m in/1.73m2 CKD-EPI Creatinine Equation (2020) Performed By: #### L 500.4050, L501.9520, L501.9985, L500.4100, L100.0100 ####[facility] [address] [place], [address] Globulin (S) [Mass/Vol] 1.8 g/dL Low 2.2-4.2 [facility] Comment on above: Performed By: #### L 500.4050, L501.9520, L501.9985, L500.4100, L100.0100 ####[facility] [address] [place], [address] Glucose [Mass/Vol] 96 mg/dL Normal 70-99 [facility] Comment on above: Performed By: #### L 500.4050, L501.9520, L501.9985, L500.4100, L100.0100 ####[facility] [address] [place], [address] Potassium [Moles/Vol] 4.5 mmol/L Normal 3.3-5.1 [facility] Comment on above: Performed By: #### L 500.4050, L501.9520, L501.9985, L500.4100, L100.0100 ####[facility] [address] [place], [address] Sodium [Moles/Vol] 141 mmol/L Normal 133-145 [facility] Comment on above: Performed By: #### L 500.4050, L501.9520, L501.9985, L500.4100, L100.0100 ####[facility] [address] [place], [address] T PROT 5.4 g/dL Low 5.9-8.4 [facility] Comment on above: Performed By: #### L 500.4050, L501.9520, L501.9985, L500.4100, L100.0100 ####[facility] [address] [place], [address] Urea nitrogen [Mass/Vol] 16 mg/dL Normal 4-19 [facility] Comment on above: Performed By: #### L 500.4050, L501.9520, L501.9985, L500.4100, L100.0100 ####[facility] [address] [place], [address] Eosinophil percentageOrdered By: White on 11-26-2024 Eosinophils/100 WBC (Bld) 0.5 % 0-5 [facility] Erythrocyte distribution wid th ratioOrdered By: White on 11-26-2024 Erythrocyte distribution width (RBC) [Ratio] 13.4 % 11.6-14.6 [facility] Erythrocyte distribution wid th standard deviationOrdered By: Megan Garcia on 11-26-2024 Erythrocyte distribution width (RBC) [Ratio] 45.8 fl High 35.1-43.9 [facility] Glomerular filtration rate ( GFR) estimation/1.73 sq m using serum, plasma, or whole bOrdered By: Megan Garcia on 11-26-2024 GFR/1.73 sq M.predicted among non-blacks MDRD (S/P/Bld) [Vol rate/Area] 82 mL/min/{1.73_m2} >60 [facility] Comment on above: mL/min/1.73m2 CKD-EP I Creatinine Equation (2020) Hematocrit Auto (Bld) [Volum e fraction]Ordered By: Megan Garcia on 11-26-2024 Hematocrit (Bld) [Volume fraction] 39.9 % Low 40-54 [facility] Hemoglobin A1con 11-26-2024 HbA1c (Bld) [Mass fraction] 5.3 % Normal <=5.6 [facility] Comment on above: Result Comment: Norm al < 5.7 % Prediabetic 5.7 - 6.4 % Diabetic >or= 6.5 % Please note range changes. Performed By: #### L 500.4050, L501.9520, L501.9985, L500.4100, L100.0100 ####[facility] [address] [place], [address] Hemoglobin A1c percentageOrd ered By: Megan Garcia on 11-26-2024 HbA1c (Bld) [Mass fraction] 5.3 % <5.7 [facility] Comment on above: Normal < 5.7 % Predi abetic 5.7 - 6.4 % Diabetic >or= 6.5 % Please note range changes. Hemoglobin measurementOrdere d By: Megan Garcia on 11-26-2024 Hemoglobin (Bld) [Mass/Vol] 13.6 g/dL 13.0-16.5 [facility] Immature granulocytes/100 WB C Auto (Bld)Ordered By: Megan Garcia on 11-26-2024 Immature granulocytes/100 WBC (Bld) 0.200 % 0.0-0.9 [facility] Comment on above: IG% - Immature Granu locytes (promyelocytes, myelocytes and metamyelocytes) > 1% indicates that a LEFT SHIFT is Present. L499.0043on 11-26-2024 Trop T High Sen 35 ng/L High <=22 [facility] Comment on above: Performed By: #### L 499.0043 ####[facility] [address] [place], [place], [id number] LDL calc ser/plasOrdered By: Megan Garcia on 11-26-2024 Cholesterol in LDL [Mass/Vol] 51 mg/dL [facility] Comment on above: Hmmuqoxffz=566-598 m g/dL & Higher Kltw=674 mg/dL or greater Laboratory - Chemistry and C hemistry - challengeOrdered By: Megan Garcia on 11-26-2024 AST [Catalytic activity/Vol] 24 U/L <38 [facility] Lipid Profileon 11-26-2024 CHOL:HDL 2.48 Normal [facility] Comment on above: Performed By: #### L 500.4050, L501.9520, L501.9985, L500.4100, L100.0100 ####[facility] [address] [place], [address] Cholesterol [Mass/Vol] 101 mg/dL Normal <=200 [facility] Comment on above: Result Comment: Chol esterol level, Desirable <200 mg/dLBorderline high cholesterol 200-239 mg/dLHigh cholesterol >=240 mg/dLRecommendations of the NCEP Adult Treatment Panel for thefollowing risk-cutoff thresholds for the [place] [facility] [place]. Performed By: #### L 500.4050, L501.9520, L501.9985, L500.4100, L100.0100 ####[facility] [address] [place], [address] Cholesterol in HDL [Mass/Vol] 41 mg/dL Normal [facility] Comment on above: Result Comment: Roz onal Cholesterol Education Program (NCEP) guidelines:<40 mg/dL: Low HDL-cholesterol (major risk factor for CHD)>= 60 mg/dL: High HDL-cholesterol (negative risk factor forCHD)HDL-cholesterol is affected by a number of factors, e.g.smoking, exercise, hormones, sex and age. Performed By: #### L 500.4050, L501.9520, L501.9985, L500.4100, L100.0100 ####[facility] [address] [place], [address] Cholesterol in LDL [Mass/Vol] 51 mg/dL Normal [facility] Comment on above: Result Comment: Bord khwerp=522-952 mg/dL Higher Aueo=610 mg/dL or greater Performed By: #### L 500.4050, L501.9520, L501.9985, L500.4100, L100.0100 ####[facility] [address] [place], [address] Cholesterol in VLDL [Mass/Vol] 9 mg/dL Normal 5-40 [facility] Comment on above: Performed By: #### L 500.4050, L501.9520, L501.9985, L500.4100, L100.0100 ####[facility] [address] [place], [address] Triglyceride [Mass/Vol] 46 mg/dL Normal [facility] Comment on above: Result Comment: The drugs N-Acetylcysteine and Metamizole may falselydepress this assay.Normal range: <150 mg/dLBorderline High: 150-199 mg/dLHigh: 200-499 mg/dLVery High: >500 mg/dL Performed By: #### L 500.4050, L501.9520, L501.9985, L500.4100, L100.0100 ####[facility] [address] [place], [address] MCV (mean corpuscular volume ) determinationOrdered By: Megan Garcia on 11-26-2024 MCV (RBC) [Entitic vol] 92.1 fL 80-94 [facility] MR/CON.PCM.NEon 11-26-2024 MR/CON.PCM.NE Normal [facility] Magnetic resonance imaging r eportOrdered By: Zara Fam on 11-26-2024 Study report [facility] Imaging Services [address] [place] [address] Brain without Contrast MR#: [id number] Acct: [id number] Name: VALENTINA CABRERA Rep #: [id number] : 1945 M 79 From: Katie Fam MD PCP: Dr. Tre García MD Status: ADM I NO Study:Brain without Contrast Date of Exam: 11/26/24 Exam# [id number] Ordering Dr: Lani Garcia MD EXAM: MR brain without contrast. CLINICAL HISTORY: TIA/CVA. COMPARISON: CTA head and neck, CT head 10/2024. TECHNIQUE: MRI of the brain was performed according to standard departmental protocol utilizing: Sagittal and axial T1, axial FLAIR, fat saturated fast spin echo axial T2, Susceptibility. FINDINGS: The ventricles, sulci, and cisterns are age-appropriate in size. There is no evidence of acute intracranial bleed. There is no midline shift, mass effect, or extra-axial collection. No area of restricted diffusion are identified on DWI images. No abnormal T2 bright signal in the white matter is identified. Mild scattered T2 bright lesions throughout the white matter, compatible with chronic microvascular ischemic changes. The basal ganglia, brionna, pituitary, corpus callosum and cerebellum appear normal. Small left maxillary retention cyst or polyp. The visualized paranasal sinuses,mastoids, and orbits are otherwise unremarkable. Prior ocular lens replacements. The flow voids of the major intracranial vessels are better evaluated on recent CTA. The visualized extracranial structures, within limits of technique, are not otherwise remarkable. MRI/Brain without Contrast IMPRESSION: No acute intracranial finding. Chronic findings as described. Reading Location: [facility] CC: Dr. Megan Garcia MD; Dr. 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: Signed [facility] Mean corpuscular hemoglobin (MCH) determinationOrdered By: Megan Garcia on 11-26-2024 MCH (RBC) [Entitic mass] 31.4 pg 27.0-32.0 [facility] Mean corpuscular hemoglobin concentration (MCHC) determinationOrdered By: Megan Garcia on 11-26-2024 MCHC (RBC) [Mass/Vol] 34.1 g/dL 32-36 [facility] Mean platelet volume determi nationOrdered By: Megan Garcia on 11-26-2024 Platelet mean volume (Bld) [Entitic vol] 9.3 fL 6.2-12.0 [facility] Monocyte percentageOrdered B y: Megan White on 11-26-2024 Monocytes/100 WBC (Bld) 4.5 % 0-10 [facility] Neutrophil percentageOrdered By: Megan White on 11-26-2024 Neutrophils/100 WBC (Bld) 47.8 % 47-70 [facility] Nucleated red blood cell per centageOrdered By: Megan Garcia on 11-26-2024 Nucleated RBC/100 WBC (Bld) [Ratio] 0.3 % 0-5 [facility] Platelet countOrdered By: Lani lauren Jose on 11-26-2024 Platelets (Bld) [#/Vol] 102 10*3/uL Low 150-450 [facility] Potassium measurement (mass/ volume)Ordered By: Megan Garcia on 11-26-2024 Potassium (Unsp spec) [Mass/Vol] 4.5 mmol/L 3.3-5.1 [facility] RBC Auto (Bld) [#/Vol]Ordere d By: Megan Garcia on 11-26-2024 RBC (Bld) [#/Vol] 4.33 10*6/uL Low 4.6-6.2 [facility] Screening total cholesterol/ high density lipoprotein (HDL) cholesterol ratioOrdered By: Megan Garcia on 11-26-2024 Cholesterol.total/Chol esterol in HDL [Mass ratio] 2.48 {ratio} [facility] Serum creatinine measurement (mass/volume)Ordered By: Megan Garcia on 11-26-2024 Creatinine [Mass/Vol] 0.94 mg/dL 0.70-1.20 [facility] Serum globulin measurementOr dered By: Megan Garcia on 11-26-2024 Globulin (S) [Mass/Vol] 1.8 g/dL Low 2.2-4.2 [facility] Serum glucose measurement (m ass/volume)Ordered By: Megan Garcia on 11-26-2024 Glucose [Mass/Vol] 96 mg/dL 70-99 [facility] Serum or plasma alanine murphy otransferase (ALT) measurementOrdered By: [facility] on 11-26-2024 ALT [Catalytic activity/Vol] 22 U/L <47 [facility] Serum or plasma albumin patti urement (mass/volume)Ordered By: Megan Jose on 11-26-2024 Albumin [Mass/Vol] 3.6 g/dL 3.4-4.8 [facility] Serum or plasma albumin/glob ulin mass ratioOrdered By: Megan Jose on 11-26-2024 Albumin/Globulin [Mass ratio] 2.0 {ratio} 0.9-2.4 [facility] Serum or plasma alkaline shy sphatase measurementOrdered By: [facility] 11-26-2024 ALP [Catalytic activity/Vol] 74 U/L 40-129 [facility] Serum or plasma calcium patti urement (mass/volume)Ordered By: Megan Jose 11-26-2024 Calcium [Mass/Vol] 8.8 mg/dL 7.6-11.0 [facility] Serum or plasma cholesterol in HDL measurement (mass/volume)Ordered By: Megan Jose on 11-26-2024 Cholesterol in HDL [Mass/Vol] 41 mg/dL >40 [facility] Comment on above: National Cholesterol Education Program (NCEP) guidelines:<40 mg/dL: Low HDL-cholesterol (major risk factor for CHD)>= 60 mg/dL: High HDL-cholesterol (negative risk factor for CHD)HDL-cholesterol is affected by a number of factors, e.g. smoking, exercise, hormones, sex and age. Serum or plasma cholesterol measurement (mass/volume)Ordered By: Megan Garcia on 11-26-2024 Cholesterol [Mass/Vol] 101 mg/dL <201 [facility] Comment on above: Cholesterol level, D esirable <200 mg/dLBorderline high cholesterol 200-239 mg/dLHigh cholesterol >=240 mg/dLRecommendations of the NCEP Adult Treatment Panel for the following risk-cutoff thresholds for the [place] population. Serum or plasma urea nitroge n measurement (mass/volume)Ordered By: Megan Garcia on 11-26-2024 Urea nitrogen [Mass/Vol] 16 mg/dL 4-19 [facility] Sodium levelOrdered By: Jeffryu mn Jose on 11-26-2024 Sodium [Moles/Vol] 141 mmol/L 133-145 [facility] TSH DL <= 0.005 mIU/L QnOrde red By: Megan Garcia on 11-26-2024 TSH Qn 1.040 uIU/mL 0.300-4.200 [facility] Thyroid Stim Hormone (TSH)on 11-26-2024 TSH 1.040 uIU/mL Normal 0.300-4.200 [facility] Comment on above: Performed By: #### L 500.4050, L501.9520, L501.9985, L500.4100, L100.0100 ####[facility] [address] [place], [place], [id number] Total proteinOrdered By: Jeffry Garcia on 11-26-2024 Protein [Mass/Vol] 5.4 g/dL Low 5.9-8.4 [facility] Triglycerides measurementOrd ered By: Megan Garcia on 11-26-2024 Triglyceride [Mass/Vol] 46 mg/dL <199 [facility] Comment on above: The drugs N-Acetylcy steine and Metamizole may falsely depress this assay. Normal range: <150 mg/dLBorderline High: 150-199 mg/dLHigh: 200-499 mg/dLVery High: >500 mg/dL Troponin T.cardiac [Mass/vol ume] in Serum or Plasma by High sensitivity methodOrdered By: Neo Clifford on 11-26-2024 Troponin T.cardiac High sensitivity method [Mass/Vol] 35 ng/L High <22 [facility] White blood cell (WBC) count Ordered By: Megan Garcia on 11-26-2024 WBC (Bld) [#/Vol] 6.3 10*3/uL 4.4-11.0 [facility] 12 Lead EKGon 11-25-2024 12 Lead EKG Normal [facility] Absolute lymphocyte countOrd ered By: Neo Clifford on 11-25-2024 Lymphocytes Auto (Unsp spec) [#/Vol] 4.07 10*3/uL 0.83-4.51 [facility] Absolute neutrophil countOrd ered By: Neo Clifford on 11-25-2024 Neutrophils (Bld) [#/Vol] 3.2 10*3/uL 2.0-7.7 [facility] Activated partial thrombopla stin time (aPTT) in platelet poor plasma by coagulation aOrdered By: Neo Clifford on 11-25-2024 aPTT Coag (PPP) [Time] 25.8 s 24.1-36.2 [facility] Anion gap in Serum or Plasma Ordered By: Neo Clifford on 11-25-2024 Anion gap [Moles/Vol] 13 mmol/L 5-15 [facility] Automated lymphocyte count a s percentage of total leukocytesOrdered By: Neo Clifford on 11-25-2024 Lymphocytes/100 WBC Auto (Unsp spec) 52.1 % High 19-41 [facility] BUN/creatinine ratioOrdered By: Neo Clifford on 11-25-2024 Urea nitrogen/Creatinine [Mass ratio] 18.3 mg/mg 10- [facility] Basic Metabolic Profile (BMP )on 11-25-2024 BUN/CRE 18.3 RATIO Normal - [facility] Comment on above: Performed By: #### L 100.0100, L300.3900, L500.2500, L300.4310, L501.4021 ####[facility] [address] [place], [address] Calcium [Mass/Vol] 9.4 mg/dL Normal 7.6-11.0 [facility] Comment on above: Performed By: #### L 100.0100, L300.3900, L500.2500, L300.4310, L501.4021 ####[facility] [address] [place], [address] Chloride [Moles/Vol] 106 mmol/L Normal 98-108 [facility] Comment on above: Performed By: #### L 100.0100, L300.3900, L500.2500, L300.4310, L501.4021 ####[facility] [address] [place], [address] CO2 [Moles/Vol] 21.3 mmol/L Normal 21.0-32.0 [facility] Comment on above: Performed By: #### L 100.0100, L300.3900, L500.2500, L300.4310, L501.4021 ####[facility] [address] [place], [address] Creatinine [Mass/Vol] 1.15 mg/dL Normal 0.70-1.20 [facility] Comment on above: Performed By: #### L 100.0100, L300.3900, L500.2500, L300.4310, L501.4021 ####[facility] [address] [place], [address] ECRCL 56.26 ml/min Normal 50-250 [facility] Comment on above: Performed By: #### L 100.0100, L300.3900, L500.2500, L300.4310, L501.4021 ####[facility] [address] [place], [address] GAP 13 Normal 5-15 [facility] Comment on above: Performed By: #### L 100.0100, L300.3900, L500.2500, L300.4310, L501.4021 ####[facility] [address] [place], [address] GFR/1.73 sq M.predicted among non-blacks MDRD (S/P/Bld) [Vol rate/Area] 64 mL/min/{1.73_m2} Normal >60 [facility] Comment on above: Result Comment: mL/m in/1.73m2 CKD-EPI Creatinine Equation (2020) Performed By: #### L 100.0100, L300.3900, L500.2500, L300.4310, L501.4021 ####[facility] [address] [place], [address] Glucose [Mass/Vol] 99 mg/dL Normal 70-99 [facility] Comment on above: Performed By: #### L 100.0100, L300.3900, L500.2500, L300.4310, L501.4021 ####[facility] [address] [place], [address] Potassium [Moles/Vol] 4.4 mmol/L Normal 3.3-5.1 [facility] Comment on above: Performed By: #### L 100.0100, L300.3900, L500.2500, L300.4310, L501.4021 ####[facility] [address] [place], [address] Sodium [Moles/Vol] 140 mmol/L Normal 133-145 [facility] Comment on above: Performed By: #### L 100.0100, L300.3900, L500.2500, L300.4310, L501.4021 ####[facility] [address] [place], [address] Urea nitrogen [Mass/Vol] 21 mg/dL High 4-19 [facility] Comment on above: Performed By: #### L 100.0100, L300.3900, L500.2500, L300.4310, L501.4021 ####[facility] [address] [place], [address] Basophil percentageOrdered B y: Neo Clifford on 11-25-2024 Basophils/100 WBC (Bld) 0.4 % 0-1 [facility] Bedside Glucoseon 11-25-2024 FINGERSTICK GLU 120 mg/dL High 74-106 [facility] Comment on above: Result Comment: MYNOR DAMON OF PATIENT CARE PER NURSING PROTOCOL Performed By: #### L 501.080 ####[facility] [address] [place], [address] CBC W/Diff, Automatedon - Absolute Lymph 4.07 X10 3/uL Normal 0.83-4.51 [facility] Comment on above: Performed By: #### L 100.0100, L300.3900, L500.2500, L300.4310, L501.4021 ####[facility] [address] [place], [address] Absolute Neut 3.2 X10 3/uL Normal 2.0-7.7 [facility] Comment on above: Performed By: #### L 100.0100, L300.3900, L500.2500, L300.4310, L501.4021 ####[facility] [address] [place], [address] Basophils/100 WBC (Bld) 0.4 % Normal 0-1 [facility] Comment on above: Performed By: #### L 100.0100, L300.3900, L500.2500, L300.4310, L501.4021 ####[facility] [address] [place], [address] Eosinophils/100 WBC (Bld) 0.4 % Normal 0-5 [facility] Comment on above: Performed By: #### L 100.0100, L300.3900, L500.2500, L300.4310, L501.4021 ####[facility] [address] [place], [address] Erythrocyte distribution width (RBC) [Ratio] 13.5 % Normal 11.6-14.6 [facility] Comment on above: Performed By: #### L 100.0100, L300.3900, L500.2500, L300.4310, L501.4021 ####[facility] [address] [place], [address] Hematocrit (Bld) [Volume fraction] 40.9 % Normal 40-54 [facility] Comment on above: Performed By: #### L 100.0100, L300.3900, L500.2500, L300.4310, L501.4021 ####[facility] [address] [place], [address] Hemoglobin (Bld) [Mass/Vol] 14.2 g/dL Normal 13.0-16.5 [facility] Comment on above: Performed By: #### L 100.0100, L300.3900, L500.2500, L300.4310, L501.4021 ####[facility] [address] [place], [address] IG% 0.400 Normal 0.0-0.9 [facility] Comment on above: Result Comment: IG% - Immature Granulocytes (promyelocytes, myelocytes andmetamyelocytes) > 1% indicates that a LEFT SHIFT is Present. Performed By: #### L 100.0100, L300.3900, L500.2500, L300.4310, L501.4021 ####[facility] [address] [place], [address] Lymphocytes/100 WBC (Bld) 52.1 % High 19-41 [facility] Comment on above: Performed By: #### L 100.0100, L300.3900, L500.2500, L300.4310, L501.4021 ####[facility] [address] [place], [address] MCH (RBC) [Entitic mass] 31.6 pg Normal 27.0-32.0 [facility] Comment on above: Performed By: #### L 100.0100, L300.3900, L500.2500, L300.4310, L501.4021 ####[facility] [address] [place], [address] MCHC (RBC) [Mass/Vol] 34.7 g/dL Normal 32-36 [facility] Comment on above: Performed By: #### L 100.0100, L300.3900, L500.2500, L300.4310, L501.4021 ####[facility] [address] [place], [address] MCV (RBC) [Entitic vol] 91.1 fL Normal 80-94 [facility] Comment on above: Performed By: #### L 100.0100, L300.3900, L500.2500, L300.4310, L501.4021 ####[facility] [address] [place], [address] Monocytes/100 WBC (Bld) 5.2 % Normal 0-10 [facility] Comment on above: Performed By: #### L 100.0100, L300.3900, L500.2500, L300.4310, L501.4021 ####[facility] [address] [place], [address] Neutrophils/100 WBC (Bld) 41.5 % Low 47-70 [facility] Comment on above: Performed By: #### L 100.0100, L300.3900, L500.2500, L300.4310, L501.4021 ####[facility] [address] [place], [address] Nucleated RBC (Bld) [#/Vol] 0 10*3/uL Normal 0-5 [facility] Comment on above: Performed By: #### L 100.0100, L300.3900, L500.2500, L300.4310, L501.4021 ####[facility] [address] [place], [address] Platelet mean volume (Bld) [Entitic vol] 9.5 fL Normal 6.2-12.0 [facility] Comment on above: Performed By: #### L 100.0100, L300.3900, L500.2500, L300.4310, L501.4021 ####[facility] [address] [place], [address] Platelets (Bld) [#/Vol] 124 10*3/uL Low 150-450 [facility] Comment on above: Performed By: #### L 100.0100, L300.3900, L500.2500, L300.4310, L501.4021 ####[facility] [address] [place], [address] RBC (Bld) [#/Vol] 4.49 10*6/uL Low 4.6-6.2 [facility] Comment on above: Performed By: #### L 100.0100, L300.3900, L500.2500, L300.4310, L501.4021 ####[facility] [address] [place], [address] RDW SD 45.5 fl High 35.1-43.9 [facility] Comment on above: Performed By: #### L 100.0100, L300.3900, L500.2500, L300.4310, L501.4021 ####[facility] [address] [place], [address] WBC (Bld) [#/Vol] 7.8 10*3/uL Normal 4.4-11.0 [facility] Comment on above: Performed By: #### L 100.0100, L300.3900, L500.2500, L300.4310, L501.4021 ####[facility] [address] [place], [address] Carbon dioxide, total [Moles /volume] in Central venous bloodOrdered By: Neo Clifford on 11-25-2024 CO2 [Moles/Vol] 21.3 mmol/L 21.0-32.0 [facility] Chest 1 View (Portable)on Chest 1 View (Portable) Normal [facility] Chloride assayOrdered By: Baldev Clifford on 11-25-2024 Chloride [Moles/Vol] 106 mmol/L 98-108 [facility] Echo Completeon 11-25-2024 Echo Complete Normal [facility] Emergency Department Summary on 11-25-2024 Emergency Department Summary Normal [facility] Eosinophil percentageOrdered By: Neo Clifford on 11-25-2024 Eosinophils/100 WBC (Bld) 0.4 % 0-5 [facility] Erythrocyte distribution wid th ratioOrdered By: Neo Clifford on 11-25-2024 Erythrocyte distribution width (RBC) [Ratio] 13.5 % 11.6-14.6 [facility] Erythrocyte distribution wid th standard deviationOrdered By: Neo Clifford on 11-25-2024 Erythrocyte distribution width (RBC) [Ratio] 45.5 fl High 35.1-43.9 [facility] Glomerular filtration rate ( GFR) estimation/1.73 sq m using serum, plasma, or whole bOrdered By: Neo Clifford on 11-25-2024 GFR/1.73 sq M.predicted among non-blacks MDRD (S/P/Bld) [Vol rate/Area] 64 mL/min/{1.73_m2} >60 [facility] Comment on above: mL/min/1.73m2 CKD-EP I Creatinine Equation (2020) [facility]ucose [facility] deOrdered By: Neo Clifford on 11-25-2024 Glucose [Mass/Vol] 120 mg/dL High 74-106 [facility] Comment on above: MANAGEMENT OF PATIEN T CARE PER NURSING PROTOCOL H AND P Exam - [place] 11-25-2024 H&P Exam - Hospitalist Normal [facility] Hematocrit Auto (Bld) [Volum e fraction]Ordered By: Neo Clifford on 11-25-2024 Hematocrit (Bld) [Volume fraction] 40.9 % 40-54 [facility] Hemoglobin measurementOrdere d By: Neo Clifford on 11-25-2024 Hemoglobin (Bld) [Mass/Vol] 14.2 g/dL 13.0-16.5 [facility] Immature granulocytes/100 WB C Auto (Bld)Ordered By: Neo Clifford on 11-25-2024 Immature granulocytes/100 WBC (Bld) 0.400 % 0.0-0.9 [facility] Comment on above: IG% - Immature Granu locytes (promyelocytes, myelocytes and metamyelocytes) > 1% indicates that a LEFT SHIFT is Present. International normalized rat io (INR) calculationOrdered By: Neo Clifford on 11-25-2024 INR Coag (Bld) [Relative time] 1.0 {INR} [facility] L499.0042on 11-25-2024 Trop T High Sen 36 ng/L High <=22 [facility] Comment on above: Performed By: #### L 499.0042 ####[facility] [address] [place], [address] L501.4021on 11-25-2024 Trop T High Sen 39 ng/L High <=22 [facility] Comment on above: Performed By: #### L 100.0100, L300.3900, L500.2500, L300.4310, L501.4021 ####[facility] [address] [place], [address] MCV (mean corpuscular volume ) determinationOrdered By: Neo Clifford on 11-25-2024 MCV (RBC) [Entitic vol] 91.1 fL 80-94 [facility] Magnesiumon 11-25-2024 Magnesium [Mass/Vol] 2.2 mg/dL Normal 1.5-2.2 [facility] Comment on above: Order Comment: Comme nts: may add to ED labs Performed By: #### L 501.5200 ####[facility] [address] [place], [place], [id number] Magnesium measurement (mass/ volume)Ordered By: Megan Garcia on 11-25-2024 Magnesium (Unsp spec) [Mass/Vol] 2.2 mg/dL 1.5-2.2 [facility] Mean corpuscular hemoglobin (MCH) determinationOrdered By: Neo Clifford on 11-25-2024 MCH (RBC) [Entitic mass] 31.6 pg 27.0-32.0 [facility] Mean corpuscular hemoglobin concentration (MCHC) determinationOrdered By: Neo Clifford on 11-25-2024 MCHC (RBC) [Mass/Vol] 34.7 g/dL 32-36 [facility] Mean platelet volume determi nationOrdered By: Neo Clifford on 11-25-2024 Platelet mean volume (Bld) [Entitic vol] 9.5 fL 6.2-12.0 [facility] Monocyte percentageOrdered B y: Neo Clifford on 11-25-2024 Monocytes/100 WBC (Bld) 5.2 % 0-10 [facility] Neutrophil percentageOrdered By: Neo Clifford on 11-25-2024 Neutrophils/100 WBC (Bld) 41.5 % Low 47-70 [facility] Nucleated red blood cell per centageOrdered By: Neo Clifford on 11-25-2024 Nucleated RBC/100 WBC (Bld) [Ratio] 0 % 0-5 [facility] Partial Thromboplast Timeon 11-25-2024 aPTT Coag (Bld) [Time] 25.8 s Normal 24.1-36.2 [facility] Comment on above: Performed By: #### L 100.0100, L300.3900, L500.2500, L300.4310, L501.4021 ####[facility] [address] [place], [place], [id number] Platelet countOrdered By: Baldev Clifford on 11-25-2024 Platelets (Bld) [#/Vol] 124 10*3/uL Low 150-450 [facility] Potassium measurement (mass/ volume)Ordered By: Neo Clifford on 11-25-2024 Potassium (Unsp spec) [Mass/Vol] 4.4 mmol/L 3.3-5.1 [facility] Prothrombin Time w/INRon INR Coag (PPP) [Relative time] 1.0 {INR} Normal [facility] Comment on above: Performed By: #### L 100.0100, L300.3900, L500.2500, L300.4310, L501.4021 ####[facility] [address] [place], [address] PT Coag (PPP) [Time] 13.7 s Normal 11.7-14.9 [facility] Comment on above: Performed By: #### L 100.0100, L300.3900, L500.2500, L300.4310, L501.4021 ####[facility] [address] [place], [address] Prothrombin timeOrdered By: Neo Clifford on 11-25-2024 PT Coag (PPP) [Time] 13.7 s 11.7-14.9 [facility] RBC Auto (Bld) [#/Vol]Ordere d By: Neo Clifford on 11-25-2024 RBC (Bld) [#/Vol] 4.49 10*6/uL Low 4.6-6.2 [facility] STROKE Brain/Head without Co nton 11-25-2024 STROKE Brain/Head without Cont Normal [facility] STROKE CTA Head AND Neck W/C onon 11-25-2024 STROKE CTA Head AND Neck W/Con Normal [facility] Serum creatinine measurement (mass/volume)Ordered By: Neo Clifford on 11-25-2024 Creatinine [Mass/Vol] 1.15 mg/dL 0.70-1.20 [facility] Serum glucose measurement (m ass/volume)Ordered By: Neo Clifford on 11-25-2024 Glucose [Mass/Vol] 99 mg/dL 70-99 [facility] Serum or plasma calcium patti urement (mass/volume)Ordered By: Neo Clifford on 11-25-2024 Calcium [Mass/Vol] 9.4 mg/dL 7.6-11.0 [facility] Serum or plasma urea nitroge n measurement (mass/volume)Ordered By: Neo Clifford on 11-25-2024 Urea nitrogen [Mass/Vol] 21 mg/dL High 4-19 [facility] Sodium levelOrdered By: Sukhi Clifford on 11-25-2024 Sodium [Moles/Vol] 140 mmol/L 133-145 [facility] Troponin T.cardiac [Mass/vol ume] in Serum or Plasma by High sensitivity methodOrdered By: Noe Clifford on 11-25-2024 Troponin T.cardiac High sensitivity method [Mass/Vol] 36 ng/L High <22 [facility] Troponin T.cardiac High sensitivity method [Mass/Vol] 39 ng/L High <22 [facility] White blood cell (WBC) count Ordered By: Neo Clifford on 11-25-2024 WBC (Bld) [#/Vol] 7.8 10*3/uL 4.4-11.0 [facility] Absolute lymphocyte countOrd ered By: Tre García on 09-19-2024 Lymphocytes Auto (Unsp spec) [#/Vol] 2.79 10*3/uL 0.83-4.51 [facility] Absolute neutrophil countOrd ered By: Tre García on 09-19-2024 Neutrophils (Bld) [#/Vol] 4.3 10*3/uL 2.0-7.7 [facility] Anion gap in Serum or Plasma Ordered By: Tre García on 09-19-2024 Anion gap [Moles/Vol] 10 mmol/L 5-15 [facility] Automated lymphocyte count a s percentage of total leukocytesOrdered By: Tre García on 09-19-2024 Lymphocytes/100 WBC Auto (Unsp spec) 37.3 % 19-41 [facility] BUN/creatinine ratioOrdered By: Tre García on 09-19-2024 Urea nitrogen/Creatinine [Mass ratio] 19.2 mg/mg 10-20 [facility] Basophil percentageOrdered B y: Tre García on 09-19-2024 Basophils/100 WBC (Bld) 0.3 % 0-1 [facility] Bilirubin, totalOrdered By: Tre García on 09-19-2024 Bilirubin [Mass/Vol] 0.60 mg/dL 0.00-1.30 [facility] CBC W/Diff, Automatedon 08-30 Absolute Lymph 2.79 X10 3/uL Normal 0.83-4.51 [facility] Comment on above: Performed By: #### L 500.4050, L501.9520, L501.9910, L100.0100, L506.1001 ####[facility] [address] [place], [address] Absolute Neut 4.3 X10 3/uL Normal 2.0-7.7 [facility] Comment on above: Performed By: #### L 500.4050, L501.9520, L501.9910, L100.0100, L506.1001 ####[facility] [address] [place], [address] Basophils/100 WBC (Bld) 0.3 % Normal 0-1 [facility] Comment on above: Performed By: #### L 500.4050, L501.9520, L501.9910, L100.0100, L506.1001 ####[facility] [address] [place], [address] Eosinophils/100 WBC (Bld) 0.4 % Normal 0-5 [facility] Comment on above: Performed By: #### L 500.4050, L501.9520, L501.9910, L100.0100, L506.1001 ####[facility] [address] [place], [address] Erythrocyte distribution width (RBC) [Ratio] 13.6 % Normal 11.6-14.6 [facility] Comment on above: Performed By: #### L 500.4050, L501.9520, L501.9910, L100.0100, L506.1001 ####[facility] [address] [place], [address] Hematocrit (Bld) [Volume fraction] 44.4 % Normal 40-54 [facility] Comment on above: Performed By: #### L 500.4050, [id number], L501.9910, L100.0100, L506.1001 ####[facility] [address] [place], [address] Hemoglobin (Bld) [Mass/Vol] 14.9 g/dL Normal 13.0-16.5 [facility] Comment on above: Performed By: #### L 500.4050, [id number], L501.9910, L100.0100, L506.1001 ####[facility] [address] [place], [address] IG% 0.300 Normal 0.0-0.9 [facility] Comment on above: Result Comment: IG% - Immature Granulocytes (promyelocytes, myelocytes andmetamyelocytes) > 1% indicates that a LEFT SHIFT is Present. Performed By: #### L 500.4050, L501.9520, L501.9910, L100.0100, L506.1001 ####[facility] [address] [place], [address] Lymphocytes/100 WBC (Bld) 37.3 % Normal 19-41 [facility] Comment on above: Performed By: #### L 500.4050, [id number], L501.9910, L100.0100, L506.1001 ####[facility] [address] [place], [address] MCH (RBC) [Entitic mass] 31.0 pg Normal 27.0-32.0 [facility] Comment on above: Performed By: #### L 500.4050, [id number], L501.9910, L100.0100, L506.1001 ####[facility] [address] [place], [address] MCHC (RBC) [Mass/Vol] 33.6 g/dL Normal 32-36 [facility] Comment on above: Performed By: #### L 500.4050, [id number], L501.9910, L100.0100, L506.1001 ####[facility] [address] [place], [address] MCV (RBC) [Entitic vol] 92.3 fL Normal 80-94 [facility] Comment on above: Performed By: #### L 500.4050, [id number], L501.9910, L100.0100, L506.1001 ####[facility] [address] [place], [address] Monocytes/100 WBC (Bld) 4.1 % Normal 0-10 [facility] Comment on above: Performed By: #### L 500.4050, [id number], L501.9910, L100.0100, L506.1001 ####[facility] [address] [place], [address] Neutrophils/100 WBC (Bld) 57.6 % Normal 47-70 [facility] Comment on above: Performed By: #### L 500.4050, [id number], L501.9910, L100.0100, L506.1001 ####[facility] [address] [place], [address] Nucleated RBC (Bld) [#/Vol] 0 10*3/uL Normal 0-5 [facility] Comment on above: Performed By: #### L 500.4050, [id number], L501.9910, L100.0100, L506.1001 ####[facility] [address] [place], [address] Platelet mean volume (Bld) [Entitic vol] 9.4 fL Normal 6.2-12.0 [facility] Comment on above: Performed By: #### L 500.4050, [id number], L501.9910, L100.0100, L506.1001 ####[facility] [address] [place], [address] Platelets (Bld) [#/Vol] 165 10*3/uL Normal 150-450 [facility] Comment on above: Performed By: #### L 500.4050, [id number], L501.9910, L100.0100, L506.1001 ####[facility] [address] [place], [address] RBC (Bld) [#/Vol] 4.81 10*6/uL Normal 4.6-6.2 [facility] Comment on above: Performed By: #### L 500.4050, [id number], L501.9910, L100.0100, L506.1001 ####[facility] [address] [place], [address] RDW SD 46.5 fl High 35.1-43.9 [facility] Comment on above: Performed By: #### L 500.4050, [id number], L501.9910, L100.0100, L506.1001 ####[facility] [address] [place], [address] WBC (Bld) [#/Vol] 7.5 10*3/uL Normal 4.4-11.0 [facility] Comment on above: Performed By: #### L 500.4050, [id number], L501.9910, L100.0100, L506.1001 ####[facility] [address] [place], [address] Carbon dioxide, total [Moles /volume] in Central venous bloodOrdered By: Tre García on 09-19-2024 CO2 [Moles/Vol] 22.7 mmol/L 21.0-32.0 [facility] Chloride assayOrdered By: Nito García on 09-19-2024 Chloride [Moles/Vol] 106 mmol/L 98-108 [facility] Comprehensive Metabolic Prof ilon 09-19-2024 Albumin [Mass/Vol] 4.2 g/dL Normal 3.4-4.8 [facility] Comment on above: Performed By: #### L 500.4050, [id number], L501.9910, L100.0100, L506.1001 ####[facility] [address] [place], [address] Albumin/Globulin [Mass ratio] 1.8 {ratio} Normal 0.9-2.4 [facility] Comment on above: Performed By: #### L 500.4050, [id number], L501.9910, L100.0100, L506.1001 ####[facility] [address] [place], [address] ALK PHOS 92 U/L Normal 40-129 [facility] Comment on above: Performed By: #### L 500.4050, [id number], L501.9910, L100.0100, L506.1001 ####[facility] [address] [place], [address] ALT [Catalytic activity/Vol] 26 U/L Normal <=46 [facility] Comment on above: Performed By: #### L 500.4050, L501.9520, L501.9910, L100.0100, L506.1001 ####[facility] [address] [place], [address] AST [Catalytic activity/Vol] 28 U/L Normal <=37 [facility] Comment on above: Performed By: #### L 500.4050, [id number], L501.9910, L100.0100, L506.1001 ####[facility] [address] [place], [address] Bilirubin [Mass/Vol] 0.60 mg/dL Normal 0.00-1.30 [facility] Comment on above: Performed By: #### L 500.4050, [id number], L501.9910, L100.0100, L506.1001 ####[facility] [address] [place], [address] BUN/CRE 19.2 RATIO Normal 10-20 [facility] Comment on above: Performed By: #### L 500.4050, [id number], L501.9910, L100.0100, L506.1001 ####[facility] [address] [place], [address] Calcium [Mass/Vol] 9.2 mg/dL Normal 7.6-11.0 [facility] Comment on above: Performed By: #### L 500.4050, [id number], L501.9910, L100.0100, L506.1001 ####[facility] [address] [place], [address] Chloride [Moles/Vol] 106 mmol/L Normal 98-108 [facility] Comment on above: Performed By: #### L 500.4050, [id number], L501.9910, L100.0100, L506.1001 ####[facility] [address] [place], [address] CO2 [Moles/Vol] 22.7 mmol/L Normal 21.0-32.0 [facility] Comment on above: Performed By: #### L 500.4050, [id number], L501.9910, L100.0100, L506.1001 ####[facility] [address] [place], [address] Creatinine [Mass/Vol] 1.00 mg/dL Normal 0.70-1.20 [facility] Comment on above: Performed By: #### L 500.4050, [id number], L501.9910, L100.0100, L506.1001 ####[facility] [address] [place], [address] GAP 10 Normal 5-15 [facility] Comment on above: Performed By: #### L 500.4050, [id number], L501.9910, L100.0100, L506.1001 ####[facility] [address] [place], [address] GFR/1.73 sq M.predicted among non-blacks MDRD (S/P/Bld) [Vol rate/Area] 76 mL/min/{1.73_m2} Normal >60 [facility] Comment on above: Result Comment: mL/m in/1.73m2 CKD-EPI Creatinine Equation (2020) Performed By: #### L 500.4050, L501.9520, L501.9910, L100.0100, L506.1001 ####[facility] [address] [place], [address] Globulin (S) [Mass/Vol] 2.3 g/dL Normal 2.2-4.2 [facility] Comment on above: Performed By: #### L 500.4050, [id number], L501.9910, L100.0100, L506.1001 ####[facility] [address] [place], [address] Glucose [Mass/Vol] 87 mg/dL Normal 70-99 [facility] Comment on above: Performed By: #### L 500.4050, [id number], L501.9910, L100.0100, L506.1001 ####[facility] [address] [place], [address] Potassium [Moles/Vol] 4.7 mmol/L Normal 3.3-5.1 [facility] Comment on above: Performed By: #### L 500.4050, [id number], L501.9910, L100.0100, L506.1001 ####[facility] [address] [place], [address] Sodium [Moles/Vol] 139 mmol/L Normal 133-145 [facility] Comment on above: Performed By: #### L 500.4050, [id number], L501.9910, L100.0100, L506.1001 ####[facility] [address] [place], [address] T PROT 6.5 g/dL Normal 5.9-8.4 [facility] Comment on above: Performed By: #### L 500.4050, [id number], L501.9910, L100.0100, L506.1001 ####[facility] [address] [place], [address] Urea nitrogen [Mass/Vol] 19 mg/dL Normal 4-19 [facility] Comment on above: Performed By: #### L 500.4050, L501.9520, L501.9910, L100.0100, L506.1001 ####[facility] [address] [place], [address] Eosinophil percentageOrdered By: [facility] 09-19-2024 Eosinophils/100 WBC (Bld) 0.4 % 0-5 [facility] Erythrocyte distribution wid th (RBC) [Ratio]Ordered By: Tre Avilez09-19-2024 Erythrocyte distribution width (RBC) [Entitic vol] 46.5 fL High 35.1-43.9 [facility] Erythrocyte distribution wid th ratioOrdered By: [facility]09-[facility]-20[facility] Erythrocyte distribution width (RBC) [Ratio] 13.6 % 11.6-14.6 [facility] Erythrocyte distribution wid th standard deviationOrdered By: [facility] 09-19-2024 Erythrocyte distribution width (RBC) [Ratio] 46.5 fl High 35.1-43.9 [facility] GFR/1.73 sq M.predicted toñito g non-blacks MDRD (S/P/Bld) [Vol rate/Area]Ordered By: Tre García 09-19-2024 Estimated GFR (MDRD) Non-Af Amer 76 >60 [facility] Comment on above: mL/min/1.73m2 CKD-EP I Creatinine Equation (2020) Glomerular filtration rate ( GFR) estimation/1.73 sq m using serum, plasma, or whole bOrdered By: Tre García on 09-19-2024 GFR/1.73 sq M.predicted among non-blacks MDRD (S/P/Bld) [Vol rate/Area] 76 mL/min/{1.73_m2} >60 [facility] Comment on above: mL/min/1.73m2 CKD-EP I Creatinine Equation (2020) Hematocrit Auto (Bld) [Volum e fraction]Ordered By: Tre García on 09-19-2024 Hematocrit (Bld) [Volume fraction] 44.4 % 40-54 [facility] Hemoglobin measurementOrdere d By: Tre García on 09-19-2024 Hemoglobin (Bld) [Mass/Vol] 14.9 g/dL 13.0-16.5 [facility] Immature granulocytes/100 WB C Auto (Bld)Ordered By: Tre García 09-19-2024 Immature granulocytes/100 WBC (Bld) 0.300 % 0.0-0.9 [facility] Comment on above: IG% - Immature Granu locytes (promyelocytes, myelocytes and metamyelocytes) > 1% indicates that a LEFT SHIFT is Present. Laboratory - Chemistry and C hemistry - challengeOrdered By: Tre García 09-19-2024 AST [Catalytic activity/Vol] 28 U/L <38 [facility] Lymphocytes Auto (Unsp spec) [#/Vol]Ordered By: Tre García 09-19-2024 Lymphocytes (Bld) [#/Vol] 2.79 10*3/uL 0.83-4.51 [facility] Lymphocytes/100 WBC Auto (Un sp spec)Ordered By: Tre García 09-19-2024 Lymphocytes/100 WBC (Bld) 37.3 % 19-41 [facility] MCV (mean corpuscular volume ) determinationOrdered By: Tre García 09-19-2024 MCV (RBC) [Entitic vol] 92.3 fL 80-94 [facility] Mean corpuscular hemoglobin (MCH) determinationOrdered By: Tre García 09-19-2024 MCH (RBC) [Entitic mass] 31.0 pg 27.0-32.0 [facility] Mean corpuscular hemoglobin concentration (MCHC) determinationOrdered By: Tre García on 09-19-2024 MCHC (RBC) [Mass/Vol] 33.6 g/dL 32-36 [facility] Mean platelet volume determi nationOrdered By: Tre García on 09-19-2024 Platelet mean volume (Bld) [Entitic vol] 9.4 fL 6.2-12.0 [facility] Monocyte percentageOrdered B y: Tre García on 09-19-2024 Monocytes/100 WBC (Bld) 4.1 % 0-10 [facility] Neutrophil percentageOrdered By: [facility] Neutrophils/100 WBC (Bld) 57.6 % 47-70 [facility] Nucleated red blood cell per centageOrdered By: Tre García on 09-19-2024 Nucleated RBC/100 WBC (Bld) [Ratio] 0 % 0-5 [facility] PSA, total screeningOrdered By: Tre García on 09-19-2024 Prostate Specific Antigen Screen 0.15 ng/mL 0.02-4.00 [facility] Comment on above: This test was perfor med using the [employer] tPSA method. Measured values of a patient sample can vary depending on the testing procedure used. PSA values determined on patient samples by different testing procedures cannot be used interchangeably. If there is a change in PSA assays while monitoring therapy, sequential testing should be performed to confirm baseline values. PSA,Total - Annual Screenon 09-19-2024 PSA,TOT SCREEN 0.15 ng/mL Normal 0.02-4.00 [facility] Comment on above: Result Comment: This test was performed using the [employer] tPSAmethod. Measured values of a patient??sample can varydepending on the testing procedure used. PSA valuesdetermined on patient samples by different testingprocedures cannot be used interchangeably. If there is achange in PSA assays while monitoring therapy, sequentialtesting should be performed to confirm baseline values. Performed By: #### L 500.4050, L501.9520, L501.9910, L100.0100, L506.1001 ####[facility] [address] [place], [address] Platelet countOrdered By: Nito García on 09-19-2024 Platelets (Bld) [#/Vol] 165 10*3/uL 150-450 [facility] Potassium (Unsp spec) [Mass/ Vol]Ordered By: Tre García on 09-19-2024 Potassium [Moles/Vol] 4.7 mmol/L 3.3-5.1 [facility] Potassium measurement (mass/ volume)Ordered By: Tre García on 09-19-2024 Potassium (Unsp spec) [Mass/Vol] 4.7 mmol/L 3.3-5.1 [facility] RBC Auto (Bld) [#/Vol]Ordere d By: Tre García on 09-19-2024 RBC (Bld) [#/Vol] 4.81 10*6/uL 4.6-6.2 [facility] Serum creatinine measurement (mass/volume)Ordered By: Tre García on 09-19-2024 Creatinine [Mass/Vol] 1.00 mg/dL 0.70-1.20 [facility] Serum globulin measurementOr dered By: Tre García 09-19-2024 Globulin (S) [Mass/Vol] 2.3 g/dL 2.2-4.2 [facility] Serum glucose measurement (m ass/volume)Ordered By: Tre García 09-19-2024 Glucose [Mass/Vol] 87 mg/dL 70-99 [facility] Serum or plasma alanine murphy otransferase (ALT) measurementOrdered By: Tre García 09-19-2024 ALT [Catalytic activity/Vol] 26 U/L <47 [facility] Serum or plasma albumin patti urement (mass/volume)Ordered By: Tre García 09-19-2024 Albumin [Mass/Vol] 4.2 g/dL 3.4-4.8 [facility] Serum or plasma albumin/glob ulin mass ratioOrdered By: Tre García 09-19-2024 Albumin/Globulin [Mass ratio] 1.8 {ratio} 0.9-2.4 [facility] Serum or plasma alkaline shy sphatase measurementOrdered By: Tre García on 09-19-2024 ALP [Catalytic activity/Vol] 92 U/L 40-129 [facility] Serum or plasma calcium patti urement (mass/volume)Ordered By: Tre García on 09-19-2024 Calcium [Mass/Vol] 9.2 mg/dL 7.6-11.0 [facility] Serum or plasma urea nitroge n measurement (mass/volume)Ordered By: Tre García 09-19-2024 Urea nitrogen [Mass/Vol] 19 mg/dL 4-19 [facility] Sodium levelOrdered By: Ter García 09-19-2024 Sodium [Moles/Vol] 139 mmol/L 133-145 [facility] TSH DL <= 0.005 mIU/L QnOrde red By: Tre García on 09-19-2024 Thyroid Stimulating Hormone (TSH) 1.270 uIU/mL 0.300-4.200 [facility] TSH Qn 1.270 uIU/mL 0.300-4.200 [facility] Thyroid Stim Hormone (TSH)on 09-19-2024 TSH 1.270 uIU/mL Normal 0.300-4.200 [facility] Comment on above: Performed By: #### L 500.4050, L501.9520, L501.9910, L100.0100, L506.1001 ####[facility] [address] [place], [address] Total proteinOrdered By: Tre García 09-19-2024 Protein [Mass/Vol] 6.5 g/dL 5.9-8.4 [facility] Vitamin D, 25-hydroxyOrdered By: Tre García on 09-19-2024 Vitamin D 25-Hydroxy 11.0 ng/mL Low 30-100 [facility] Comment on above: Vitamin D StatusDefi ciency: <20 ng/mL (50nmol/L)Insufficiency: 20-30 ng/mL (50-75 nmol/L)Sufficiency: 30-100 ng/mL (75-250 nmol/L)Toxicity: >100 ng/mL (>250 nmol/L) Vitamin D,25 Hydroxyon 09-19 Vitamin D 25-OH 11.0 ng/mL Low 30-100 [facility] Comment on above: Result Comment: Aixa min D StatusDeficiency: <20 ng/mL (50nmol/L)Insufficiency: 20-30 ng/mL (50-75 nmol/L)Sufficiency: 30-100 ng/mL (75-250 nmol/L)Toxicity: >100 ng/mL (>250 nmol/L) Performed By: #### L 500.4050, L501.9520, L501.9910, L100.0100, L506.1001 ####[facility] [address] [place], [place], [id number] White blood cell (WBC) count Ordered By: Tre García on 09-19-2024 WBC (Bld) [#/Vol] 7.5 10*3/uL 4.4-11.0 [facility] [place] - Individual Treatment Pl anon 09-15-2024 ME - Individual Treatment Plan Normal [facility] - Individual Treatment Pl anon 08-17-2024 ME - Individual Treatment Plan [facility] Influenza virus A and B and SARS-CoV-2 (COVID-19) and Respiratory syncytial virus RNAOrdered By: Tre García on 08-14-2024 SARS-CoV-2 (COVID-19) RNA GRACE+probe Ql (Unsp spec) [facility] M100.678on 08-14-2024 M100.678 Pending SARS-CoV-2 (COVID 19) Negative INFLUENZA A Negative INFLUENZA B Negative RSV PCR Negative Normal [facility] Comment on above: Performed By: #### M 100.678 ####[facility] [address] [place], [place], [address] ME - Individual Treatment Pl anon 07-27-2024 ME - Individual Treatment Plan Normal [facility] ME - Individual Treatment Pl anon 06-29-2024 ME - Individual Treatment Plan [facility] ME - History AND Physicalon 05-29-2024 ME - History & Physical Normal [facility] ME - Individual Treatment Pl anon 05-29-2024 ME - Individual Treatment Plan Normal [facility] CNOVon 05-26-2024 CNOV Office Visit (PULMWS ) -- VALENTINA CABRERA ([id number]) 1945 M Date Time Provider Department 05/26/24 2:15 PM GENIE BUSTAMANTE PULMWS During your visit today, we recorded the following information about you: Pulse Blood pressure Weight 87/minute 126/70 91.2 kg Genie Bustamante MD 05/26/2024 5:25 PM Signed . Respiratory [place] Note Patient name: Valentina Cabrera PCP: Tre [...] of breath. Patient was actually hospitalized at [facility], hypoxemic, received remdesivir and dexamethasone and actually [...] chest tightness. Pulmonary function test performed at [facility] shows small airways obstruction with worsening of his airflow postbronchodilator. DATA: PFT 02/2024 [facility]: FVC 3.86 L 103% FEV1 2.62 [...] other lower urinary tract symptoms (LUTS) 07/05/2007 [employer] (current) use of inhaled steroids Lumbar discogenic [...] peripheral weakness/paresthesia (more content not included)... Normal [facility] History AND Physic romulo 05-10-2024 Wound Ctr History & Physical Normal [facility] Culture, Anaerobic Any Sourc lynsey 05-05-2024 CUAN LEFT FOREARM No anaerobic bacteria isolated. Normal [facility] Comment on above: Performed By: #### L 8200.1075, M8200.1075, M100.3000, M100.2000, M100.4001 ####[facility] [address] [place], [address] Wound Cultureon 05-03-2024 WC Normal [facility] Comment on above: Performed By: #### L 8200.1075, M8200.1075, M100.3000, M100.2000, M100.4001 ####[facility] [address] [place], [address] Gram Stainon 05-02-2024 GS LEFT FOREARM Gram Stain Rare Gram positive cocci Rare Red Blood Cells Rare White Blood Cells Normal [facility] Comment on above: Performed By: #### L 8200.1075, M8200.1075, M100.3000, M100.2000, M100.4001 ####[facility] [address] [place], [address] Bacteria identified Anaer cx Nom (Unsp spec)Ordered By: Tre García on 05-01-2024 Anaerobic Culture No anaerobic bacteri a isolated. [facility] Gram stainOrdered By: Tre Raghav plascencia on 05-01-2024 Microscopic observation Gram stain Nom (Unsp spec) [facility] M8200.1075on 05-01-2024 M8200.1075 [facility] Comment on above: Performed By: #### L 8200.1075, M8200.1075, M100.3000, M100.2000, M100.4001 ####[facility] [address] [place], [address] MRSA Wound DNA by PCRon MRSA DNA ASSAY Normal Negative [facility] Comment on above: Order Comment: LEFT FOREARMWOUND ON LEFT FOREARM Result Comment: AMOS GED TO MICRO MRSA WOUND ORDER Performed By: #### L 8200.1075, M8200.1075, M100.3000, M100.2000, M100.4001 ####[facility] [address] [place], [place], [id number] PROBE CHECK [facility] Comment on above: Order Comment: LEFT FOREARMWOUND ON LEFT FOREARM Result Comment: AMOS GED TO MICRO MRSA WOUND ORDER Performed By: #### L 8200.1075, M8200.1075, M100.3000, M100.2000, M100.4001 ####[facility] [address] [place], [place], [id number] SA DNA ASSAY Normal Negative [facility] Comment on above: Order Comment: LEFT FOREARMWOUND ON LEFT FOREARM Result Comment: AMOS GED TO MICRO MRSA WOUND ORDER Performed By: #### L 8200.1075, M8200.1075, M100.3000, M100.2000, M100.4001 ####[facility] [address] [place], [address] SPC Normal [facility] Comment on above: Order Comment: LEFT FOREARMWOUND ON LEFT FOREARM Result Comment: AMOS GED TO MICRO MRSA WOUND ORDER Performed By: #### L 8200.1075, M8200.1075, M100.3000, M100.2000, M100.4001 ####[facility] [address] [place], [address] Routine wound cultureOrdered By: Tre García on 05-01-2024 Wound Culture Staphylococcus aureus Abnormal [facility] CBC W/Diff, Automatedon 10-2 Absolute Lymph 2.11 X10 3/uL Normal 0.83-4.51 [facility] Comment on above: Performed By: #### L 100.0100, L506.1000, L501.9520, L500.4050 ####[facility] [address] [place], [address] Absolute Neut 3.4 X10 3/uL Normal 2.0-7.7 [facility] Comment on above: Performed By: #### L 100.0100, L506.1000, L501.9520, L500.4050 ####[facility] [address] [place], [address] Basophils/100 WBC (Bld) 0.5 % Normal 0-1 [facility] Comment on above: Performed By: #### L 100.0100, L506.1000, L501.9520, L500.4050 ####[facility] [address] [place], [address] Eosinophils/100 WBC (Bld) 0.5 % Normal 0-5 [facility] Comment on above: Performed By: #### L 100.0100, L506.1000, L501.9520, L500.4050 ####[facility] [address] [place], [address] Erythrocyte distribution width (RBC) [Ratio] 13.4 % Normal 11.6-14.6 [facility] Comment on above: Performed By: #### L 100.0100, L506.1000, L501.9520, L500.4050 ####[facility] [address] [place], [address] Hematocrit (Bld) [Volume fraction] 44.6 % Normal 40-54 [facility] Comment on above: Performed By: #### L 100.0100, L506.1000, L501.9520, L500.4050 ####[facility] [address] [place], [address] Hemoglobin (Bld) [Mass/Vol] 14.6 g/dL Normal 13.0-16.5 [facility] Comment on above: Performed By: #### L 100.0100, L506.1000, L501.9520, L500.4050 ####[facility] [address] [place], [address] IG% 0.300 Normal 0.0-0.9 [facility] Comment on above: Result Comment: IG% - Immature Granulocytes (promyelocytes, myelocytes andmetamyelocytes) > 1% indicates that a LEFT SHIFT is Present. Performed By: #### L 100.0100, L506.1000, L501.9520, L500.4050 ####[facility] [address] [place], [address] Lymphocytes/100 WBC (Bld) 35.7 % Normal 19-41 [facility] Comment on above: Performed By: #### L 100.0100, L506.1000, L501.9520, L500.4050 ####[facility] [address] [place], [address] MCH (RBC) [Entitic mass] 30.0 pg Normal 27.0-32.0 [facility] Comment on above: Performed By: #### L 100.0100, L506.1000, L501.9520, L500.4050 ####[facility] [address] [place], [address] MCHC (RBC) [Mass/Vol] 32.7 g/dL Normal 32-36 [facility] Comment on above: Performed By: #### L 100.0100, L506.1000, L501.9520, L500.4050 ####[facility] [address] [place], [address] MCV (RBC) [Entitic vol] 91.6 fL Normal 80-94 [facility] Comment on above: Performed By: #### L 100.0100, L506.1000, L501.9520, L500.4050 ####[facility] [address] [place], [address] Monocytes/100 WBC (Bld) 5.8 % Normal 0-10 [facility] Comment on above: Performed By: #### L 100.0100, L506.1000, L501.9520, L500.4050 ####[facility] [address] [place], [address] Neutrophils/100 WBC (Bld) 57.2 % Normal 47-70 [facility] Comment on above: Performed By: #### L 100.0100, L506.1000, L501.9520, L500.4050 ####[facility] [address] [place], [address] Nucleated RBC (Bld) [#/Vol] 0 10*3/uL Normal 0-5 [facility] Comment on above: Performed By: #### L 100.0100, L506.1000, L501.9520, L500.4050 ####[facility] [address] [place], [address] Platelet mean volume (Bld) [Entitic vol] 9.1 fL Normal 6.2-12.0 [facility] Comment on above: Performed By: #### L 100.0100, L506.1000, L501.9520, L500.4050 ####[facility] [address] [place], [address] Platelets (Bld) [#/Vol] 148 10*3/uL Low 150-450 [facility] Comment on above: Performed By: #### L 100.0100, L506.1000, L501.9520, L500.4050 ####[facility] [address] [place], [address] RBC (Bld) [#/Vol] 4.87 10*6/uL Normal 4.6-6.2 [facility] Comment on above: Performed By: #### L 100.0100, L506.1000, L501.9520, L500.4050 ####[facility] [address] [place], [address] RDW SD 46.0 fl High 35.1-43.9 [facility] Comment on above: Performed By: #### L 100.0100, L506.1000, L501.9520, L500.4050 ####[facility] [address] [place], [address] WBC (Bld) [#/Vol] 5.9 10*3/uL Normal 4.4-11.0 [facility] Comment on above: Performed By: #### L 100.0100, L506.1000, L501.9520, L500.4050 ####[facility] [address] [place], [address] Comprehensive Metabolic Prof nekenny 03-21-2024 Albumin [Mass/Vol] 3.7 g/dL Normal 3.2-5.0 [facility] Comment on above: Order Comment: VITD Performed By: #### L 100.0100, L506.1000, L501.9520, L500.4050 ####[facility] [address] [place], [address] Albumin/Globulin [Mass ratio] 1.2 {ratio} Normal 0.9-2.4 [facility] Comment on above: Order Comment: VITD Performed By: #### L 100.0100, L506.1000, L501.9520, L500.4050 ####[facility] [address] [place], [address] ALK P 103 U/L Normal 45-117 [facility] Comment on above: Order Comment: VITD Performed By: #### L 100.0100, L506.1000, L501.9520, L500.4050 ####[facility] [address] [place], [address] ALT [Catalytic activity/Vol] 28 U/L Normal 16-61 [facility] Comment on above: Order Comment: VITD Performed By: #### L 100.0100, L506.1000, L501.9520, L500.4050 ####[facility] [address] [place], [address] AST [Catalytic activity/Vol] 28 U/L Normal 15-37 [facility] Comment on above: Order Comment: VITD Result Comment: Mode rate Hemolysis, Result may be falsely increased. Performed By: #### L 100.0100, L506.1000, L501.9520, L500.4050 ####[facility] [address] [place], [address] Bilirubin [Mass/Vol] 1.00 mg/dL Normal 0.20-1.00 [facility] Comment on above: Order Comment: VITD Result Comment: For patients on eltrombopag therapy, use of Dimension [place] TBIL is not recommended. Performed By: #### L 100.0100, L506.1000, L501.9520, L500.4050 ####[facility] [address] [place], [address] BUN/CRE 14.3 RATIO Normal 10-20 [facility] Comment on above: Order Comment: VITD Performed By: #### L 100.0100, L506.1000, L501.9520, L500.4050 ####[facility] [address] [place], [address] CA,Total 9.1 mg/dL Normal 8.5-10.1 [facility] Comment on above: Order Comment: VITD Performed By: #### L 100.0100, L506.1000, L501.9520, L500.4050 ####[facility] [address] [place], [address] Chloride [Moles/Vol] 108 mmol/L High 98-107 [facility] Comment on above: Order Comment: VITD Performed By: #### L 100.0100, L506.1000, L501.9520, L500.4050 ####[facility] [address] [place], [address] CO2 [Moles/Vol] 25.0 mmol/L Normal 21.0-32.0 [facility] Comment on above: Order Comment: VITD Performed By: #### L 100.0100, L506.1000, L501.9520, L500.4050 ####[facility] [address] [place], [address] Creatinine [Mass/Vol] 1.05 mg/dL Normal 0.70-1.30 [facility] Comment on above: Order Comment: VITD Result Comment: The validity of the calculated GFR GFRAA in patients over70 years has not been determined. Clinical correlation isessential. Performed By: #### L 100.0100, L506.1000, L501.9520, L500.4050 ####[facility] [address] [place], [address] EST GFR - AA 87 mL/min Normal >60 [facility] Comment on above: Order Comment: VITD Result Comment: Afri can [place] GFR Calc Performed By: #### L 100.0100, L506.1000, L501.9520, L500.4050 ####[facility] [address] [place], [address] GAP 5 Normal 5-15 [facility] Comment on above: Order Comment: VITD Performed By: #### L 100.0100, L506.1000, L501.9520, L500.4050 ####[facility] [address] [place], [address] GFR/1.73 sq M.predicted among non-blacks MDRD (S/P/Bld) [Vol rate/Area] 72 mL/min/{1.73_m2} Normal >60 [facility] Comment on above: Order Comment: VITD Result Comment: Non- GFR Calc Performed By: #### L 100.0100, L506.1000, L501.9520, L500.4050 ####[facility] [address] [place], [address] Globulin (S) [Mass/Vol] 3.0 g/dL Normal 2.2-4.2 [facility] Comment on above: Order Comment: VITD Performed By: #### L 100.0100, L506.1000, L501.9520, L500.4050 ####[facility] [address] [place], [address] Glucose [Mass/Vol] 100 mg/dL Normal 74-106 [facility] Comment on above: Order Comment: VITD Result Comment: Fast ing Glucose result from 100 to 125 mg/dLsuggests IMPAIRED HOMEOSTASIS per A.D.A. criteria. Performed By: #### L 100.0100, L506.1000, L501.9520, L500.4050 ####[facility] [address] [place], [address] Potassium [Moles/Vol] 4.4 mmol/L Normal 3.5-5.1 [facility] Comment on above: Order Comment: VITD Result Comment: Mode rate Hemolysis, Result may be falsely increased. Performed By: #### L 100.0100, L506.1000, L501.9520, L500.4050 ####[facility] [address] [place], [address] Sodium [Moles/Vol] 138 mmol/L Normal 136-145 [facility] Comment on above: Order Comment: VITD Performed By: #### L 100.0100, L506.1000, L501.9520, L500.4050 ####[facility] [address] [place], [address] T PROT 6.7 g/dL Normal 6.4-8.2 [facility] Comment on above: Order Comment: VITD Performed By: #### L 100.0100, L506.1000, L501.9520, L500.4050 ####[facility] [address] [place], [address] Urea nitrogen [Mass/Vol] 15 mg/dL Normal 7-18 [facility] Comment on above: Order Comment: VITD Performed By: #### L 100.0100, L506.1000, L501.9520, L500.4050 ####[facility] [address] [place], [address] Thyroid Stim Hormone (TSH)on 03-21-2024 TSH 0.689 uIU/mL Normal 0.358-3.740 [facility] Comment on above: Order Comment: VITD Performed By: #### L 100.0100, L506.1000, L501.9520, L500.4050 ####[facility] [address] [place], [address] Vitamin D,25 Hydroxyon 03-21 Vitamin D 25-OH 14.9 ng/mL Normal [facility] Comment on above: Result Comment: Aixa min D 25(OH) Status Range Deficiency <20 ng/mL (50nmol/L) Insufficiency 20 - 30 ng/mL (50 - 75 nmol/L) Sufficiency 30 - 100 ng/mL (75 - 250 nmol/L) Toxicity >100 ng/mL (>250 nmol/L) Performed By: #### L 100.0100, L506.1000, L501.9520, L500.4050 ####[facility] [address] [place], [address] CREATININE FINGERSTICKon CREATININE WB < 1.0 Normal 0.70-1.30 [facility] Comment on above: Performed By: #### L 9100.0200 ####[facility] [address] [place], [address] EGFR WB > 60.0000 Normal >60 [facility] Comment on above: Performed By: #### L 9100.0200 ####[facility] [address] [place], [address] CTA Chest W/WO Contraston CTA Chest W/WO Contrast Normal [facility] XR Chest PA and Lateralon IMPRESSION: No acute radiographic abnormality. Books Salesperson: PSCB Transcribe Date/Time: Feb 24 2024 6:45A Dictated by : TIBURCIO CORTES MD This examination was interpreted and the report reviewed and electronically signed by: TIBURCIO CORTES MD on Feb 24 2024 6:47AM [facility] DIVISION OF RADIOLOGY * * *Final [...] fractures IMPRESSION IMPRESSION: No acute radiographic abnormality. Books Salesperson: PSCB Transcribe Date/Time: Feb 24 2024 6:45A Dictated by : TIBURCIO CORTES MD This examination was interpreted and the report reviewed and electronically signed by: TIBURCIO CORTES MD on Feb 24 2024 6:47AM EST [facility] XR Chest PA and LateralOrder ed By: Jairo Provider on 02-24-2024 [facility] CNOVon 02-23-2024 CNOV Office Visit (PULMWS ) -- VALENTINA CABRERA ([id number]) 1945 M Date Time Provider Department 02/23/24 1:30 PM BECKY FIERRO PULMWS During your visit today, we recorded the following information about you: Becky Fierro, PABerryC 02/23/2024 2:17 PM Signed Patient: Valentina Cabrera [...] needed albuterol. Patient was recently seen in [facility] for URI and Covid test was [...] other lower urinary tract symptoms (LUTS) 07/05/2007 nursing home (current) use of inhaled steroids Lumbar discogenic [...] COVID-19 original vaccine, age 12+ yr, monovalent (SoundCure-RylaNTPlatiza - [place] TOP) 08/29/2021 COVID-19 original vaccine, age 12+ yr, monovalent (SoundCure-BIONTECH - PURPLE TOP) 07/26/2020 08/16/2020 02/21/2021 COVID-19 vaccine, age 12+ yr (SoundCure-BIONTPlatiza) 02/22/2023 08/20/2023 COVID-19 vaccine, age 12+ yr, bivalent (Forensic LogicNTPlatiza) 03/13/2022 diphtheria tetanus (DT) vaccine, pediatric 11/02/1996 influenza (HD-IIV3) vaccine, age 65+ yr, high dose, trivalen (more content not included)... Normal [facility] XR CHEST 2V FRONTAL/LATon XR CHEST 2V FRONTAL/LAT * * *Final Report* * * DATE [...] rib fractures IMPRESSION: No acute radiographic abnormality. Books Salesperson: PSCB Transcribe Date/Time: Feb 24 2024 6:45A Dictated by : TIBURCIO CORTES MD This examination was interpreted and the report reviewed and electronically signed by: TIBURCIO CORTES MD on Feb 24 2024 6:47AM EST [id number] Normal [facility] XR Chest PA and Lateralon Radiology Study observation (narrative) [facility] M100.678on 02-15-2024 M100.678 Normal [facility] Comment on above: Performed By: #### M 100.678 ####[facility] [id number] [place], [place], [address] M100.678on 02-08-2024 M100.678 Normal [facility] Comment on above: Performed By: #### M 100.678 ####[facility] [id number] [place], [place], [address] CNOVon 01-29-2024 CN Office Visit (UCWSTR ) -- VALENTINA CABRERA ([id number]) 1945 M Date Time Provider Department 01/29/24 12:45 PM FER RUELAS [facility] During your visit today, we recorded the following information about you: Temperature Pulse Respiration Blood pressure 98.4 degrees 96/minute 18/minute 138/72 Weight 88.6 kg Fer Ruelas PA 01/29/2024 12:49 PM Signed This note was created using Tk20. Subjective Valentina Cabrera is a 79 year old male. HPI 79-year-old male presents for cough, congestion x 1 day. Patient states yesterday he started getting cough, sore throat, nasal congestion and chest congestion. He is was recently sick with similar symptoms as well as his grandson. Patient states he has a low-grade fever yesterday. No fever today. He has not taken anything objh-pyh-zeewmgi for symptoms. He does have history of [...] lower urinary tract symptoms (LUTS) No date: [employer] (current) use of inhaled steroids 06/05/2010: Lumbar [...] normal. B (more content not included)... Normal [facility] COVID AND INFLUENZA A/B AND RSV PCR, ROUTINEon 01-29-2024 SARS-CoV-2 (COVID-19) RNA GRACE+probe Ql (Unsp spec) SARS-COV-2 (AGENT OF COVID-19) RNA: Detected INFLUENZA A RNA: Not detected INFLUENZA B RNA: Not detected RESPIRATORY SYNCYTIAL VIRUS (RSV) RNA: Not detected Abnormal [facility] Comment on above: Performed By: #### C VFLRS #### [facility] CLIA [id number] [address] [place] [address] [place] CNOVon 11-09-2023 CNOV Office Visit (PULMWS ) -- VALENTINA CABRERA ([id number]) 1945 M Date Time Provider Department 11/09/23 10:30 AM GENIE BUSTAMANTE PULMWS During your visit today, we recorded the following information about you: Pulse Respiration Weight 83/minute 15/minute 86.6 kg Genie Bustamante MD 11/09/2023 11:28 AM Signed . Respiratory [place] Note Patient name: Valentina Cabrera PCP: Jd [...] and as needed albuterol. At [facility] with HCARLOTTE-Avelino, stopped Singulair, continued inhaler, and ordered diaphragm [...] other lower urinary tract symptoms (LUTS) 07/05/2007 [employer] (current) use of inhaled steroids Lumbar discogenic [...] pancreatic cancer (more content not included)... Normal [facility] Absolute lymphocyte countOrd ered By: Tre García on 09-20-2023 Lymphocytes Auto (Unsp spec) [#/Vol] 2.35 10*3/uL 0.83-4.51 [facility] Automated lymphocyte count a s percentage of total leukocytesOrdered By: Tre García on 09-20-2023 Lymphocytes/100 WBC Auto (Unsp spec) 32.2 % 19-41 [facility] Basophil percentageOrdered B y: Tre García on 09-20-2023 Basophils/100 WBC (Bld) 0.3 % 0-1 [facility] Bilirubin [Mass/Vol] 0.70 mg/dL 0.20-1.00 [facility] Comment on above: For patients on eltr ombopag therapy, use of Dimension [place] TBIL is not recommended. Chloride [Moles/Vol] 110 mmol/L 98-107 [facility] Eosinophils/100 WBC (Bld) 0.1 % 0-5 [facility] Glucose [Mass/Vol] 96 mg/dL 74-106 [facility] Hemoglobin (Bld) [Mass/Vol] 15.5 g/dL 13.0-16.5 [facility] Monocytes/100 WBC (Bld) 5.6 % 0-10 [facility] Neutrophils (Bld) [#/Vol] 4.5 10*3/uL 2.0-7.7 [facility] Neutrophils/100 WBC (Bld) 61.5 % 47-70 [facility] Potassium [Moles/Vol] 4.4 mmol/L 3.5-5.1 [facility] Protein [Mass/Vol] 6.8 g/dL 6.4-8.2 [facility] Sodium [Moles/Vol] 139 mmol/L 136-145 [facility] WBC (Bld) [#/Vol] 7.3 10*3/uL 4.4-11.0 [facility] Determination of erythrocyte mean corpuscular volume (MCV)Ordered By: Tre García on 09-20-2023 MCV (RBC) [Entitic vol] 90.5 fL 80-94 [facility] Erythrocyte distribution wid th ratioOrdered By: Tre García 09-20-2023 Erythrocyte distribution width (RBC) [Ratio] 13.2 % 11.6-14.6 [facility] Erythrocyte distribution wid th standard deviationOrdered By: Tre García on 09-20-2023 Erythrocyte distribution width (RBC) [Entitic vol] 44.3 fL 35.1-43.9 [facility] Hematocrit Auto (Bld) [Volum e fraction]Ordered By: Tre García on 09-20-2023 Hematocrit (Bld) [Volume fraction] 46.7 % 40-54 [facility] Immature granulocytes/100 WB C Auto (Bld)Ordered By: Tre García 09-20-2023 Immature granulocytes/100 WBC (Bld) 0.300 % 0.0-0.9 [facility] Comment on above: IG% - Immature Granu locytes (promyelocytes, myelocytes and metamyelocytes) > 1% indicates that a LEFT SHIFT is Present. Laboratory - Chemistry and C hemistry - challengeOrdered By: [facility] Ricky 09-20-2023 Albumin/Globulin [Mass ratio] 1.3 {ratio} 0.9-2.4 [facility] ALP [Catalytic activity/Vol] 100 U/L 45-117 [facility] ALT [Catalytic activity/Vol] 27 U/L 16-61 [facility] CO2 [Moles/Vol] 22.0 mmol/L 21.0-32.0 [facility] Globulin (S) [Mass/Vol] 2.9 g/dL 2.2-4.2 [facility] Urea nitrogen/Creatinine [Mass ratio] 15.0 mg/mg 10-20 [facility] Laboratory - Hematology and Cell countsOrdered By: Tre García 09-20-2023 MCH (RBC) [Entitic mass] 30.0 pg 27.0-32.0 [facility] MCHC (RBC) [Mass/Vol] 33.2 g/dL 32-36 [facility] Nucleated RBC/100 WBC (Bld) [Ratio] 0 % 0-5 [facility] Platelet mean volume (Bld) [Entitic vol] 9.5 fL 6.2-12.0 [facility] Platelets (Bld) [#/Vol] 165 10*3/uL 150-450 [facility] No Panel InformationOrdered By: Tre García on 09-20-2023 Estimated GFR (MDRD) Amer 80 mL/min >60 [facility] Comment on above: GFR Calc Estimated GFR (MDRD) Non-Af Amer 66 mL/min >60 [facility] Comment on above: Non- GFR Calc Prostate Specific Antigen Screen 0.16 ng/mL 0.00-4.00 [facility] Comment on above: This test was perfor med using the TPSA assay method for the[employer] chemistry system. Values obtained with differentassay methods cannot be used interchangably.When changing PSA assays in the course of monitoring apatient, additional sequential testing should be carriedout to confirm baseline values. Vitamin D 25-Hydroxy 23.5 ng/mL [facility] Comment on above: Vitamin D 25(OH) Sta tus Range Deficiency <20 ng/mL (50nmol/L) Insufficiency 20 - 30 ng/mL (50 - 75 nmol/L) Sufficiency 30 - 100 ng/mL (75 - 250 nmol/L) Toxicity >100 ng/mL (>250 nmol/L) RBC Auto (Bld) [#/Vol]Ordere d By: Tre García on 09-20-2023 RBC (Bld) [#/Vol] 5.16 10*6/uL 4.6-6.2 [facility] Serum or plasma calcium patti urement (mass/volume)Ordered By: Tre García on 09-20-2023 Calcium [Mass/Vol] 8.7 mg/dL 8.5-10.1 [facility] Serum or plasma creatinine m easurement (mass/volume)Ordered By: Tre García on 09-20-2023 Creatinine [Mass/Vol] 1.13 mg/dL 0.70-1.30 [facility] Comment on above: The validity of the calculated GFR & GFRAA in patients over 70 years has not been determined. Clinical correlation is essential. Serum or plasma thyroid stim ulating hormone (TSH) measurement (units/volume)Ordered By: Tre García on 09-20-2023 TSH Qn 1.23 uIU/mL 0.358-3.74 [facility] Serum or plasma urea nitroge n measurement (mass/volume)Ordered By: Tre García on 09-20-2023 Urea nitrogen [Mass/Vol] 17 mg/dL 7-18 [facility] Thin prep Papanicolaou smear with manual screeningOrdered By: Tre García on 09-20-2023 Thin prep Papanicolaou smear with manual screening 3.9 g/dL 3.2-5.0 [facility] Thin prep Papanicolaou smear with manual screening 22 U/L 15-37 [facility] Thin prep Papanicolaou smear with manual screening 7 5-15 [facility] Absolute lymphocyte countOrd ered By: Joe Lisa on 08-15-2023 Lymphocytes Auto (Unsp spec) [#/Vol] 3.24 10*3/uL 0.83-4.51 [facility] Automated lymphocyte count a s percentage of total leukocytesOrdered By: Joe Lisa on 08-15-2023 Lymphocytes/100 WBC Auto (Unsp spec) 42.7 % 19-41 [facility] Basophil percentageOrdered B y: Joe Lisa on 08-15-2023 Basophils/100 WBC (Bld) 0.1 % 0-1 [facility] Chloride [Moles/Vol] 114 mmol/L 98-107 [facility] Eosinophils/100 WBC (Bld) 0.0 % 0-5 [facility] Glucose [Mass/Vol] 134 mg/dL 74-106 [facility] Comment on above: Fasting Glucose resu lt greater than or equal to 126 mg/dL suggests DIABETES MELLITUS per A.D.A. criteria. Hemoglobin (Bld) [Mass/Vol] 16.0 g/dL 13.0-16.5 [facility] Monocytes/100 WBC (Bld) 4.3 % 0-10 [facility] Neutrophils (Bld) [#/Vol] 4.0 10*3/uL 2.0-7.7 [facility] Neutrophils/100 WBC (Bld) 52.6 % 47-70 [facility] Potassium [Moles/Vol] 4.4 mmol/L 3.5-5.1 [facility] Sodium [Moles/Vol] 142 mmol/L 136-145 [facility] WBC (Bld) [#/Vol] 7.6 10*3/uL 4.4-11.0 [facility] Determination of erythrocyte mean corpuscular volume (MCV)Ordered By: Joe Lisa on 08-15-2023 MCV (RBC) [Entitic vol] 90.7 fL 80-94 [facility] Erythrocyte distribution wid th ratioOrdered By: [facility] 08-[facility]23 Erythrocyte distribution width (RBC) [Ratio] 13.2 % 11.6-14.6 [facility] Erythrocyte distribution wid th standard deviationOrdered By: [facility] on 08-15-2023 Erythrocyte distribution width (RBC) [Entitic vol] 44.4 fL 35.1-43.9 [facility] Hematocrit Auto (Bld) [Volum e fraction]Ordered By: [facility] Lisa on 08-15-2023 Hematocrit (Bld) [Volume fraction] 47.6 % 40-54 [facility] Immature granulocytes/100 WB C Auto (Bld)Ordered By: [place] Maria L on 08-15-2023 Immature granulocytes/100 WBC (Bld) 0.300 % 0.0-0.9 [facility] Comment on above: IG% - Immature Granu locytes (promyelocytes, myelocytes and metamyelocytes) > 1% indicates that a LEFT SHIFT is Present. Laboratory - Chemistry and C hemistry - challengeOrdered By: Joe Lisa on 08-15-2023 CO2 [Moles/Vol] 23.0 mmol/L 21.0-32.0 [facility] Urea nitrogen/Creatinine [Mass ratio] 15.0 mg/mg 10-20 [facility] Laboratory - Hematology and Cell countsOrdered By: [facility] Lisa on 08-15-2023 MCH (RBC) [Entitic mass] 30.5 pg 27.0-32.0 [facility] MCHC (RBC) [Mass/Vol] 33.6 g/dL 32-36 [facility] Nucleated RBC/100 WBC (Bld) [Ratio] 0 % 0-5 [facility] Platelet mean volume (Bld) [Entitic vol] 8.9 fL 6.2-12.0 [facility] Platelets (Bld) [#/Vol] 156 10*3/uL 150-450 [facility] No Panel InformationOrdered By: Joe Lisa on 08-15-2023 Estimated GFR (MDRD) Amer 93 mL/min >60 [facility] Comment on above: GFR Calc Estimated GFR (MDRD) Non-Af Amer 77 mL/min >60 [facility] Comment on above: Non- GFR Calc RBC Auto (Bld) [#/Vol]Ordere d By: Joe Lisa on 08-15-2023 RBC (Bld) [#/Vol] 5.25 10*6/uL 4.6-6.2 [facility] Serum or plasma calcium patti urement (mass/volume)Ordered By: Joe Lisa on 08-15-2023 Calcium [Mass/Vol] 8.7 mg/dL 8.5-10.1 [facility] Serum or plasma creatinine m easurement (mass/volume)Ordered By: Joe Lisa on 08-15-2023 Creatinine [Mass/Vol] 1.00 mg/dL 0.70-1.30 [facility] Comment on above: The validity of the calculated GFR & GFRAA in patients over 70 years has not been determined. Clinical correlation is essential. Serum or plasma urea nitroge n measurement (mass/volume)Ordered By: Joe Lisa on 08-15-2023 Urea nitrogen [Mass/Vol] 15 mg/dL 7-18 [facility] Thin prep Papanicolaou smear with manual screeningOrdered By: Joe Lisa on 08-15-2023 Thin prep Papanicolaou smear with manual screening 5 5-15 [facility] Absolute lymphocyte countOrd ered By: Tre García on 07-02-2023 Lymphocytes Auto (Unsp spec) [#/Vol] 3.29 10*3/uL 0.83-4.51 [facility] Automated lymphocyte count a s percentage of total leukocytesOrdered By: Tre García on 07-02-2023 Lymphocytes/100 WBC Auto (Unsp spec) 37.7 % 19-41 [facility] Basophil percentageOrdered B y: Tre García on 07-02-2023 Basophils/100 WBC (Bld) 0.2 % 0-1 [facility] Bilirubin [Mass/Vol] 0.90 mg/dL 0.20-1.00 [facility] Comment on above: For patients on eltr ombopag therapy, use of Dimension [place] TBIL is not recommended. Chloride [Moles/Vol] 110 mmol/L 98-107 [facility] Eosinophils/100 WBC (Bld) 0.5 % 0-5 [facility] Glucose [Mass/Vol] 103 mg/dL 74-106 [facility] Comment on above: Fasting Glucose resu lt from 100 to 125 mg/dL suggests IMPAIRED HOMEOSTASIS per A.D.A. criteria. Hemoglobin (Bld) [Mass/Vol] 15.6 g/dL 13.0-16.5 [facility] Monocytes/100 WBC (Bld) 5.2 % 0-10 [facility] Neutrophils (Bld) [#/Vol] 4.9 10*3/uL 2.0-7.7 [facility] Neutrophils/100 WBC (Bld) 56.1 % 47-70 [facility] Potassium [Moles/Vol] 4.5 mmol/L 3.5-5.1 [facility] Protein [Mass/Vol] 6.7 g/dL 6.4-8.2 [facility] Sodium [Moles/Vol] 139 mmol/L 136-145 [facility] WBC (Bld) [#/Vol] 8.7 10*3/uL 4.4-11.0 [facility] CNPReyna [facility] -- VALENTINA CABRERA ([id number]) 1945 Cari Date Time Provider Department 07/02/23 BECKY FIERRO [...] and needs 90 day supply sent to [facility] but needs initial order to get him started sent to [facility]. He has some of the Dulera 100 [...] Problem [65] Visit Diagnosis:Cough variant asthma [J45.991] Order(s):mometasone-formot angie (DULERA) 200-5 mcg/actuation inhalerInhale 2 Puffs as [...] full re*06/25/2021 Moderate persistent asthma without complication*05/13/2022 Prescriptions ordered this encounter Disp Refills Start [...] Encounter Status:Closed by BECKY FIERRO on 07/02/23 Normal [facility] Determination of erythrocyte mean corpuscular volume (MCV)Ordered By: Tre García on 07-02-2023 MCV (RBC) [Entitic vol] 90.8 fL 80-94 [facility] Erythrocyte distribution wid th ratioOrdered By: Tre García on 07-02-2023 Erythrocyte distribution width (RBC) [Ratio] 13.2 % 11.6-14.6 [facility] Erythrocyte distribution wid th standard deviationOrdered By: Tre García on 07-02-2023 Erythrocyte distribution width (RBC) [Entitic vol] 44.0 fL 35.1-43.9 [facility] Hematocrit Auto (Bld) [Volum e fraction]Ordered By: Tre García on 07-02-2023 Hematocrit (Bld) [Volume fraction] 47.3 % 40-54 [facility] Immature granulocytes/100 WB C Auto (Bld)Ordered By: Tre García on 07-02-2023 Immature granulocytes/100 WBC (Bld) 0.300 % 0.0-0.9 [facility] Comment on above: IG% - Immature Granu locytes (promyelocytes, myelocytes and metamyelocytes) > 1% indicates that a LEFT SHIFT is Present. Laboratory - Chemistry and C hemistry - challengeOrdered By: Tre García on 07-02-2023 Albumin/Globulin [Mass ratio] 1.3 {ratio} 0.9-2.4 [facility] ALP [Catalytic activity/Vol] 107 U/L 45-117 [facility] ALT [Catalytic activity/Vol] 32 U/L 16-61 [facility] CO2 [Moles/Vol] 26.0 mmol/L 21.0-32.0 [facility] Globulin (S) [Mass/Vol] 2.9 g/dL 2.2-4.2 [facility] Urea nitrogen/Creatinine [Mass ratio] 13.9 mg/mg 10-20 [facility] Laboratory - Hematology and Cell countsOrdered By: Tre García on 07-02-2023 MCH (RBC) [Entitic mass] 29.9 pg 27.0-32.0 [facility] MCHC (RBC) [Mass/Vol] 33.0 g/dL 32-36 [facility] Nucleated RBC/100 WBC (Bld) [Ratio] 0 % 0-5 [facility] Platelets (Bld) [#/Vol] 162 10*3/uL 150-450 [facility] No Panel InformationOrdered By: Tre García on 07-02-2023 Estimated GFR (MDRD) Amer 100 mL/min >60 [facility] Comment on above: GFR Calc Estimated GFR (MDRD) Non-Af Amer 83 mL/min >60 [facility] Comment on above: Non- GFR Calc Platelet mean volume Skip-Ec ker (Bld) [Entitic vol]Ordered By: Tre García on 07-02-2023 Platelet mean volume (Bld) [Entitic vol] 9.5 fL 6.2-12.0 [facility] RBC Auto (Bld) [#/Vol]Ordere d By: Tre García on 07-02-2023 RBC (Bld) [#/Vol] 5.21 10*6/uL 4.6-6.2 [facility] Serum or plasma calcium patti urement (mass/volume)Ordered By: Tre García on 07-02-2023 Calcium [Mass/Vol] 9.2 mg/dL 8.5-10.1 [facility] Serum or plasma creatinine m easurement (mass/volume)Ordered By: Tre García on 07-02-2023 Creatinine [Mass/Vol] 0.94 mg/dL 0.70-1.30 [facility] Comment on above: The validity of the calculated GFR & GFRAA in patients over 70 years has not been determined. Clinical correlation is essential. Serum or plasma thyroid stim ulating hormone (TSH) measurement (units/volume)Ordered By: Tre García on 07-02-2023 TSH Qn 1.30 uIU/mL 0.358-3.74 [facility] Serum or plasma urea nitroge n measurement (mass/volume)Ordered By: Tre García on 07-02-2023 Urea nitrogen [Mass/Vol] 13 mg/dL 7-18 [facility] Thin prep Papanicolaou smear with manual screeningOrdered By: Tre García on 07-02-2023 Thin prep Papanicolaou smear with manual screening 3.8 g/dL 3.2-5.0 [facility] Thin prep Papanicolaou smear with manual screening 19 U/L 15-37 [facility] Thin prep Papanicolaou smear with manual screening 3 5-15 [facility] Laboratory - Chemistry and C hemistry - challengeOrdered By: Chacho Mcghee on 06-02-2023 Natriuretic peptide B (Bld) [Mass/Vol] 40.9 pg/mL 0-100 [facility] MIPS/MEPSon 04-19-2023 [facility] SPIROMETRY BASELINE ONLYon 1 06-19-2022 ZXT92-20% PRE (L/S) 1.25 L/S [facility] FEV1 PRE (L) 2.73 L [facility] FEV1/FVC PRE (%) 67 % [facility] FVC PRE (L) 4.09 L [facility] MEP PRE (cmH2O) 112.80 cmH2O [facility] MIP PRE (cmH2O) -104.06 cmH2O [facility] PEF PRE (L/S) 7.39 L/S [facility] Laboratory - Microbiology an d Antimicrobial susceptibilityOrdered By: Tre García on 04-08-2023 SARS-CoV-2 (COVID-19) RNA GRACE+probe Ql (Unsp spec) [facility] No Panel InformationOrdered By: Tre García on 04-08-2023 Influenza Types A,B Direct FA (DAMARI) [facility] RSV Ag EIAOrdered By: Tre plascencia on 04-08-2023 RSV Ag Immune stain Ql (Tiss) [facility] Absolute lymphocyte countOrd ered By: Tre García on 03-18-2023 Lymphocytes Auto (Unsp spec) [#/Vol] 3.40 10*3/uL 0.83-4.51 [facility] Basophil percentageOrdered B y: Tre García on 03-18-2023 Basophils/100 WBC (Bld) 0.4 % 0-1 [facility] Bilirubin [Mass/Vol] 0.50 mg/dL 0.20-1.00 [facility] Comment on above: For patients on eltr ombopag therapy, use of Dimension [place] TBIL is not recommended. Chloride [Moles/Vol] 111 mmol/L 98-107 [facility] Eosinophils/100 WBC (Bld) 0.6 % 0-5 [facility] Glucose [Mass/Vol] 102 mg/dL 74-106 [facility] Comment on above: Fasting Glucose resu lt from 100 to 125 mg/dL suggests IMPAIRED HOMEOSTASIS per A.D.A. criteria. Neutrophils (Bld) [#/Vol] 4.3 10*3/uL 2.0-7.7 [facility] Neutrophils/100 WBC (Bld) 51.6 % 47-70 [facility] Potassium [Moles/Vol] 4.2 mmol/L 3.5-5.1 [facility] Protein [Mass/Vol] 7.0 g/dL 6.4-8.2 [facility] Sodium [Moles/Vol] 141 mmol/L 136-145 [facility] WBC (Bld) [#/Vol] 8.4 10*3/uL 4.4-11.0 [facility] Blood erythrocytes count (nu mber/volume)Ordered By: Tre García on 03-18-2023 RBC (Bld) [#/Vol] 5.36 10*6/uL 4.6-6.2 [facility] Blood hemoglobin measurement (mass/volume)Ordered By: Tre Ricky on 03-18-2023 Hemoglobin (Bld) [Mass/Vol] 16.3 g/dL 13.0-16.5 [facility] [facility] Blood lymphocytes/100 leukoc ytesOrdered By: [facility] on [facility]18[facility]23 Lymphocytes/100 WBC (Bld) 40.7 % 19-41 [facility] Blood monocytes/100 leukocyt esOrdered By: [facility] on 03-18-2023 Monocytes/100 WBC (Bld) 6.3 % 0-10 [facility] Blood platelet mean volumeOr dered By: [facility] on 03-18-2023 Platelet mean volume (Bld) [Entitic vol] 8.9 fL 6.2-12.0 [facility] Determination of erythrocyte mean corpuscular volume (MCV)Ordered By: [facility] on 03-18-2023 MCV (RBC) [Entitic vol] 90.1 fL 80-94 [facility] Hematocrit Auto (Bld) [Volum e fraction][facility] By: [facility] on 03-18-2023 Hematocrit (Bld) [Volume fraction] 48.3 % 40-54 [facility] Laboratory - Chemistry and C hemistry - challengeOrdered By: [facility] on 03-18-2023 ALP [Catalytic activity/Vol] 111 U/L 45-117 [facility] ALT [Catalytic activity/Vol] 32 U/L 16-61 [facility] CO2 [Moles/Vol] 24.0 mmol/L 21.0-32.0 [facility] Cobalamin (Vitamin B12) [Mass/Vol] 466 pg/mL 211-911 [facility] Globulin (S) [Mass/Vol] 3.2 g/dL 2.2-4.2 [facility] Urea nitrogen/Creatinine [Mass ratio] 19.2 mg/mg 10-20 [facility] Laboratory - Hematology and Cell countsOrdered By: [facility] on 03-18-2023 Erythrocyte distribution width (RBC) [Entitic vol] 44.0 fL 35.1-43.9 [facility] Erythrocyte distribution width (RBC) [Ratio] 13.2 % 11.6-14.6 [facility] Immature granulocytes/100 WBC (Bld) 0.400 % 0.0-0.9 [facility] Comment on above: IG% - Immature Granu locytes (promyelocytes, myelocytes and metamyelocytes) > 1% indicates that a LEFT SHIFT is Present. MCH (RBC) [Entitic mass] 30.4 pg 27.0-32.0 [facility] Nucleated RBC/100 WBC (Bld) [Ratio] 0 % 0-5 [facility] MCHC Auto (RBC) [Mass/Vol]Or dered By: Tre García on 03-18-2023 MCHC (RBC) [Mass/Vol] 33.7 g/dL 32-36 [facility] No Panel InformationOrdered By: Tre García on 03-18-2023 Estimated GFR (MDRD) Amer 100 mL/min >60 [facility] Comment on above: GFR Calc Estimated GFR (MDRD) Non-Af Amer 82 mL/min >60 [facility] Comment on above: Non- GFR Calc Hepatitis C Antibody Non-Reactive Nonreactive [facility] Comment on above: Non Reactive: < 0.8 Equivocal: >/= 0.8 to < 1.0 Reactive: >/= 1.0The CDC recommends that a reactive/equivocal HCV antibody result be followed up by the HCV Nucleic Acid Amplificationtest (603716) Thyroid Stimulating Hormone (TSH) 0.99 uIU/mL 0.358-3.74 [facility] Vitamin D 25-Hydroxy 21.7 ng/mL [facility] Comment on above: Vitamin D 25(OH) Sta tus Range Deficiency <20 ng/mL (50nmol/L) Insufficiency 20 - 30 ng/mL (50 - 75 nmol/L) Sufficiency 30 - 100 ng/mL (75 - 250 nmol/L) Toxicity >100 ng/mL (>250 nmol/L) Platelets bldOrdered By: Tre García on 03-18-2023 Platelets (Bld) [#/Vol] 159 10*3/uL 150-450 [facility] Serum or plasma albumin patti urement (mass/volume)Ordered By: Tre García on 03-18-2023 Albumin [Mass/Vol] 3.8 g/dL 3.2-5.0 [facility] Serum or plasma albumin/glob ulin mass ratioOrdered By: Tre Ricky on 03-18-2023 Albumin/Globulin [Mass ratio] 1.2 {ratio} 0.9-2.4 [facility] Serum or plasma calcium patti urement (mass/volume)Ordered By: Tre Ricky on 03-18-2023 Calcium [Mass/Vol] 8.8 mg/dL 8.5-10.1 [facility] Serum or plasma creatinine m easurement (mass/volume)Ordered By: Tre García on 03-18-2023 Creatinine [Mass/Vol] 0.94 mg/dL 0.70-1.30 [facility] Comment on above: The validity of the calculated GFR & GFRAA in patients over 70 years has not been determined. Clinical correlation is essential. Serum or plasma folate measu rement (mass/volume)Ordered By: Tre Ricky on 03-18-2023 Folate [Mass/Vol] 12.30 ng/mL 3.1-55.4 [facility] Serum or plasma urea nitroge n measurement (mass/volume)Ordered By: Tre García on 03-18-2023 Urea nitrogen [Mass/Vol] 18 mg/dL 7-18 [facility] Thin prep Papanicolaou smear with manual screeningOrdered By: Tre García on 03-18-2023 Thin prep Papanicolaou smear with manual screening 21 U/L 15-37 [facility] Thin prep Papanicolaou smear with manual screening 6 5-15 [facility] CBC W Auto Differential pane l (Bld)on 03-09-2023 Basophils (Bld) [#/Vol] <0.11 k/uL [facility] Basophils/100 WBC (Bld) 0.2 % [facility] Differential cell count method Nom (Bld) Auto [facility] Eosinophils (Bld) [#/Vol] 0.03 10*3/uL <0.46 k/uL [facility] Eosinophils/100 WBC (Bld) 0.4 % [facility] Erythrocyte distribution width (RBC) [Ratio] 13.2 % 11.5 - 15.0 % [facility] Hematocrit (Bld) [Volume fraction] 47.3 % 39.0 - 51.0 % [facility] Hemoglobin (Bld) [Mass/Vol] 15.2 g/dL 13.0 - 17.0 g/dL [facility] Immature granulocytes (Bld) [#/Vol] 0.03 10*3/uL <0.10 k/uL [facility] Immature granulocytes/100 WBC (Bld) 0.4 % [facility] Lymphocytes (Bld) [#/Vol] 2.78 10*3/uL 1.00 - 4.00 k/uL [facility] Lymphocytes/100 WBC (Bld) 34.6 % [facility] MCH (RBC) [Entitic mass] 30.5 pg 26.0 - 34.0 pg [facility] MCHC (RBC) [Mass/Vol] 32.1 g/dL 30.5 - 36.0 g/dL [facility] MCV (RBC) [Entitic vol] 94.8 fL 80.0 - 100.0 fL [facility] Monocytes (Bld) [#/Vol] 0.59 10*3/uL <0.87 k/uL [facility] Monocytes/100 WBC (Bld) 7.3 % [facility] Neutrophils (Bld) [#/Vol] 4.58 10*3/uL 1.45 - 7.50 k/uL [facility] Neutrophils/100 WBC (Bld) 57.1 % [facility] Nucleated RBC (Bld) [#/Vol] <0.01 k/uL [facility] Nucleated RBC/100 WBC (Bld) [Ratio] 0.0 /100 WBC [facility] Platelet mean volume (Bld) [Entitic vol] 12.2 fL 9.0 - 12.7 fL [facility] Platelets (Bld) [#/Vol] 192 10*3/uL 150 - 400 k/uL [facility] RBC (Bld) [#/Vol] 4.99 10*6/uL 4.20 - 6.0 0 m/uL [facility] WBC (Bld) [#/Vol] 8.03 10*3/uL 3.70 - 11. 00 k/uL [facility] NM CARDIAC PERF STRESS/EXERC ISEon 03-01-2023 [facility] No Panel Informationon 12-10 [facility] CBC W Auto Differential pane l (Bld)on 09-08-2022 Basophils (Bld) [#/Vol] 0.03 10*3/uL <0.11 k/uL [facility] Basophils/100 WBC (Bld) 0.4 % [facility] Differential cell count method Nom (Bld) Auto [facility] Eosinophils (Bld) [#/Vol] 0.04 10*3/uL <0.46 k/uL [facility] Eosinophils/100 WBC (Bld) 0.5 % [facility] Erythrocyte distribution width (RBC) [Ratio] 13.2 % 11.5 - 15.0 % [facility] Hematocrit (Bld) [Volume fraction] 48.2 % 39.0 - 51.0 % [facility] Hemoglobin (Bld) [Mass/Vol] 15.9 g/dL 13.0 - 17.0 g/dL [facility] Immature granulocytes (Bld) [#/Vol] 0.03 10*3/uL <0.10 k/uL [facility] Immature granulocytes/100 WBC (Bld) 0.4 % [facility] Lymphocytes (Bld) [#/Vol] 2.99 10*3/uL 1.00 - 4.00 k/uL [facility] Lymphocytes/100 WBC (Bld) 38.2 % [facility] MCH (RBC) [Entitic mass] 30.2 pg 26.0 - 34.0 pg [facility] MCHC (RBC) [Mass/Vol] 33.0 g/dL 30.5 - 36.0 g/dL [facility] MCV (RBC) [Entitic vol] 91.6 fL 80.0 - 100.0 fL [facility] Monocytes (Bld) [#/Vol] 0.75 10*3/uL <0.87 k/uL [facility] Monocytes/100 WBC (Bld) 9.6 % [facility] Neutrophils (Bld) [#/Vol] 3.98 10*3/uL 1.45 - 7.50 k/uL [facility] Neutrophils/100 WBC (Bld) 50.9 % [facility] Nucleated RBC (Bld) [#/Vol] <0.01 k/uL [facility] Nucleated RBC/100 WBC (Bld) [Ratio] 0.0 /100 WBC [facility] Platelet mean volume (Bld) [Entitic vol] 10.9 fL 9.0 - 12.7 fL [facility] Platelets (Bld) [#/Vol] 145 10*3/uL Low 150 - 400 k/uL [facility] RBC (Bld) [#/Vol] 5.26 10*6/uL 4.20 - 6.0 0 m/uL [facility] WBC (Bld) [#/Vol] 7.82 10*3/uL 3.70 - 11. 00 k/uL [facility] XR RIBS/CHEST 3V AP RIB/OBLS /CXR RIGHTon 08-19-2022 [facility] XR Ribs - right Views and Ch est PAon 08-19-2022 IMPRESSION: Right si xth and seventh rib age indeterminate fractures, likely representing old rib fractures. Books Salesperson: PSCB Transcribe Date/Time: Aug 19 2022 9:33A Dictated by : RONI VAIL MD This examination was interpreted and the report reviewed and electronically signed by: RONI VAIL MD on Aug 19 2022 9:38AM [facility] DIVISION OF RADIOLOGY * * *Final [...] lungs appear normal. DIVISION OF RADIOLOGY Provider, [facility] - 08/19/2022 * * *Final Report* [...] indeterminate fractures, likely representing old rib fractures. Books Salesperson: TASHI Transcribe Date/Time: Aug 19 2022 9:33A Dictated by : RONI VAIL MD This examination was interpreted and the report reviewed and electronically signed by: RONI VAIL MD on Aug 19 2022 9:38AM EST [facility] Radiology Study observation (narrative) [facility] XR Ribs - right Views and Ch est PAOrdered By: [facility] Provider on 08-19-2022 [facility] XR Chest PA and Lateralon IMPRESSION: Questionable hazy opacities overlying the right upper lung. Consider follow-up. Books Salesperson: TASHI Transcribe Date/Time: May 11 2022 9:14A Dictated by : RONI VIAL MD This examination was interpreted and the [...] to prior trauma. DIVISION OF RADIOLOGY Provider, [facility] - 05/11/2022 * * *Final Report* [...] overlying the right upper lung. Consider follow-up. Books Salesperson: TASHI Transcribe Date/Time: May 11 2022 9:14A Dictated by : RONI VAIL MD This examination was interpreted and the report reviewed and electronically signed by: RONI VAIL MD on May 11 2022 9:16AM EST [facility] Radiology Study observation (narrative) [facility] XR Chest PA and LateralOrder ed By: [facility] Provider on 05-11-2022 [facility] Eosinophils Auto (Bld) [#/Vo l]on 04-10-2022 Eosinophils (Bld) [#/Vol] 0.05 10*3/uL <0.46 k/uL [facility] LUNG VOLUMESon 03-11-2022 [facility] NITRIC OXIDE, EXHALEDon 10- [facility] XR CHEST 2V FRONTAL/LATon [facility] XR Chest PA and Lateralon IMPRESSION: No acute radiographic abnormality. Books Salesperson: TASHI Transcribe Date/Time: Feb 23 2022 12:14P Dictated by : BLANCO TIMMONS MD This examination was interpreted and the report reviewed and electronically signed by: BLANCO TIMMONS MD on Feb 23 2022 12:17PM [facility] DIVISION OF RADIOLOGY * * *Final [...] Mild degenerative changes. DIVISION OF RADIOLOGY Provider, [facility] - 02/23/2022 * * *Final Report* [...] changes. IMPRESSION IMPRESSION: No acute radiographic abnormality. Books Salesperson: TASHI Transcribe Date/Time: Feb 23 2022 12:14P Dictated by : BLANCO TIMMONS MD This examination was interpreted and the report reviewed and electronically signed by: BLANCO TIMMONS MD on Feb 23 2022 12:17PM [facility] Radiology Study observation (narrative) [facility] XR Chest PA and LateralOrder ed By: [facility] Provider on 02-23-2022 [facility] CBC panel Auto (Bld)on 09-04 Erythrocyte distribution width (RBC) [Ratio] 13.1 % 11.5 - 15.0 % [facility] Hematocrit (Bld) [Volume fraction] 45.4 % 39.0 - 51.0 % [facility] Hemoglobin (Bld) [Mass/Vol] 15.6 g/dL 13.0 - 17.0 g/dL [facility] MCH (RBC) [Entitic mass] 31.0 pg 26.0 - 34.0 pg [facility] MCHC (RBC) [Mass/Vol] 34.4 g/dL 30.5 - 36.0 g/dL [facility] MCV (RBC) [Entitic vol] 90.3 fL 80.0 - 100.0 fL [facility] Nucleated RBC (Bld) [#/Vol] 10*3/uL <0.01 k/uL [facility] Platelet mean volume (Bld) [Entitic vol] 8.8 fL Low 9.0 - 12.7 fL [facility] Platelets (Bld) [#/Vol] 151 10*3/uL 150 - 400 k/uL [facility] RBC (Bld) [#/Vol] 5.03 10*6/uL 4.20 - 6.0 0 m/uL [facility] WBC (Bld) [#/Vol] 6.87 10*3/uL 3.70 - 11. 00 k/uL [facility] Comprehensive metabolic 2000 panelon 09-04-2021 Albumin [Mass/Vol] 4.3 g/dL 3.9 - 4.9 g/dL [facility] ALP [Catalytic activity/Vol] 103 U/L 38 - 113 U/L [facility] ALT [Catalytic activity/Vol] 19 U/L 10 - 54 U/L [facility] Anion gap [Moles/Vol] 10 mmol/L 9 - 18 mmol/L [facility] AST [Catalytic activity/Vol] 23 U/L 14 - 40 U/L [facility] Bilirubin [Mass/Vol] 0.6 mg/dL 0.2 - 1 .3 mg/dL [facility] Calcium [Mass/Vol] 8.8 mg/dL 8.5 - 10. 2 mg/dL [facility] Chloride [Moles/Vol] 103 mmol/L 97 - 10 5 mmol/L [facility] CO2 [Moles/Vol] 24 mmol/L 22 - 30 mmol/L [facility] Creatinine [Mass/Vol] 0.96 mg/dL 0.73 - 1.22 mg/dL [facility] Estimated Glomerular Filtration Rate 81 mL/min/1.73m >=60 mL/min/1.73m [facility] Glucose [Mass/Vol] 119 mg/dL High 74 - 99 mg/dL [facility] Potassium [Moles/Vol] 4.5 mmol/L 3.7 - 5.1 mmol/L [facility] Protein [Mass/Vol] 6.4 g/dL 6.3 - 8.0 g/dL [facility] Sodium [Moles/Vol] 137 mmol/L 136 - 144 mmol/L [facility] Urea nitrogen [Mass/Vol] 14 mg/dL 9 - 24 mg/dL [facility] CNNURSEon 08-16-2020 CNN[facility] Nurse Visit ([facility]OVBROD) -- VALENTINA CABRERA ([id number]) 1945 M Date Time Provider Department 08/16/20 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 Nurse Visit (COVAMD) -- VALENTINA CABRERA ([id number]) 1945 M Date Time Provider Department 07/26/20 1:45 PM [facility] During your visit today, we recorded the following information about you: Referring Provider: WEATHERS, JACQUI [[id number]] Allergies As of Date: 07/26/2020 Noted Allergy Reaction environmental [Other] 02/26/2005 5 - Intolerance Date Reviewed: 07/26/2020 Reviewed by: Deirdre ([facility]) Rodrigue Aguirre - Fully Assessed Primary Visit Diagnosis:Need for COVID-19 vaccine [Z23] Order(s):SARS-COVID VACCINE 1ST DOSE APPT [[id number]] Order #: [id number] PFIZER-BIONTECH COVID-19 VACCINE [[id number]] Order #: [id number] PFIZER SARS-COV-2 VACCINE 2D DOSE APPT [[id number]] Order #: [id number] FUTURE Prescriptions as of 07/26/2020 Sig: ENTERIC [...] Encounter Status:Closed by ENRIQUETA SHEPARD on 07/27/20 [facility] Vital Signs Date Time Vital Sign Value Performing Clinician Faci lity 01-31-2025 15:23-0400 Body height 172.[address] Tre García MD Work Phone: [facility] 01-31-2025 15:23-0400 Body mass index (BMI) [Ratio] 30.1 kg/m2 Dr. Tre García MD Work Phone: [facility] 01-31-2025 15:23-0400 Body temperature 98 [degF] Dr. Tre García MD Work Phone: [facility] 01-31-2025 15:23-0400 Body weight 89.[address] Tre García MD Work Phone: [facility] 01-31-2025 15:23-0400 Diastolic blood pressure 70 mm[Hg] Dr. Tre García MD Work Phone: [facility] 01-31-2025 15:23-0400 Heart rate 86 /min Dr. Tre García MD Work Phone: [facility] 01-31-2025 15:23-0400 Respiratory rate 18 /min Dr. Tre García MD Work Phone: [facility] 01-31-2025 15:23-0400 SaO2% (BldA) [Mass fraction] 96 % Dr. Tre García MD Work Phone: [facility] 01-31-2025 15:23-0400 Systolic blood pressure 111 mm[Hg] Dr. Tre García MD Work Phone: [facility] 01-25-2025 10:36-0400 Body temperature 96.9 [degF] Dr. Tre García MD Work Phone: [facility] 01-25-2025 10:36-0400 Diastolic blood pressure 85 mm[Hg] Dr. Tre García MD Work Phone: [facility] 01-25-2025 10:36-0400 Heart rate 80 /min Dr. Tre García MD Work Phone: [facility] 01-25-2025 10:36-0400 Respiratory rate 18 /min Dr. Tre García MD Work Phone: [facility] 01-25-2025 10:36-0400 Systolic blood pressure 141 mm[Hg] Dr. Tre García MD Work Phone: 7(166)273-139137 [place] [address] 01-02-2025 15:08-0400 Body height 172.[address] Tre García MD Work Phone: 2(645)751-461115 [address] 01-02-2025 15:07-0400 Body mass index (BMI) [Ratio] 29.8 kg/m2 Dr. Tre García MD Work Phone: [facility] 01-02-2025 15:07-0400 Body temperature 98.3 [degF] Dr. Tre García MD Work Phone: 2(962)984-560615 [address] 01-02-2025 15:07-0400 Body weight 88.[address] Tre García MD Work Phone: 9(449)770-057037 [place] [address] 01-02-2025 15:07-0400 Diastolic blood pressure 65 mm[Hg] Dr. Tre García MD Work Phone: [facility] 01-02-2025 15:07-0400 Heart rate 90 /min Dr. Tre García MD Work Phone: [facility] 01-02-2025 15:07-0400 Respiratory rate 18 /min Dr. Tre García MD Work Phone: [facility] 01-02-2025 15:07-0400 SaO2% (BldA) [Mass fraction] 94 % Dr. Tre García MD Work Phone: [facility] 01-02-2025 15:07-0400 Systolic blood pressure 101 mm[Hg] Dr. Tre García MD Work Phone: [facility] 11-27-2024 14:46-0400 Diastolic blood pressure 65 mm[Hg] Dr. Tre García MD Work Phone: 5(682)298-957437 [place] [address] 11-27-2024 14:46-0400 Heart rate 90 /min Dr. Tre García MD Work Phone: 7(123)756-207337 [place] [address] 11-27-2024 14:46-0400 Respiratory rate 16 /min Dr. Tre García MD Work Phone: 0(417)868-852537 [place] [address] 11-27-2024 14:46-0400 SaO2% (BldA) [Mass fraction] 94 % Dr. Tre García MD Work Phone: 9(689)938-693037 [place] [address] 11-27-2024 14:46-0400 Systolic blood pressure 124 mm[Hg] Dr. Tre García MD Work Phone: 6(319)355-513537 [place] [address] 11-27-2024 12:39-0400 Body mass index (BMI) [Ratio] 29.9 kg/m2 Dr. Tre García MD Work Phone: 0(718)594-172737 [place] [address] 11-27-2024 07:52-0400 Body temperature 97.6 [degF] Dr. Tre García MD Work Phone: 5(633)618-659237 [place] [address] 11-27-2024 03:48-0400 Body weight 89.[address] Tre García MD Work Phone: [facility] 11-26-2024 10:05-0400 Body height 172.[address] Tre García MD Work Phone: [facility] 11-25-2024 21:51-0400 Body temperature 98.2 [degF] Dr. Tre García MD Work Phone: [facility] 11-25-2024 21:51-0400 Diastolic blood pressure 78 mm[Hg] Dr. Tre García MD Work Phone: 3(165)994-298715 [address] 11-25-2024 21:51-0400 Heart rate 87 /min Dr. Tre García MD Work Phone: 8(839)075-950737 [place] [address] 11-25-2024 21:51-0400 Respiratory rate 16 /min Dr. Tre García MD Work Phone: 1(562)441-335129 [place] [address] 11-25-2024 21:51-0400 SaO2% (BldA) [Mass fraction] 95 % Dr. Tre García MD Work Phone: 6(060)731-574029 [place] [address] 11-25-2024 21:51-0400 Systolic blood pressure 136 mm[Hg] Dr. Tre García MD Work Phone: 5(944)209-129829 [place] [address] 11-25-2024 20:06-0400 Body height 172.[address] Tre García MD Work Phone: 6(448)173-831629 [place] [address] 11-25-2024 20:06-0400 Body mass index (BMI) [Ratio] 30.7 kg/m2 Dr. Tre García MD Work Phone: 6(303)656-346329 [place] [address] 11-25-2024 20:06-0400 Body weight 91.[address] Tre García MD Work Phone: 2(727)861-112129 [place] [address] 09-28-2024 00:28-0400 Body mass index (BMI) [Ratio] 29.8 kg/m2 Dr. Tre García MD Work Phone: 7(181)124-093229 [place] [address] 09-28-2024 00:28-0400 Body weight 89.[address] Tre García MD Work Phone: 5(086)266-908429 [place] [address] 09-15-2024 08:14-0400 Body height 172.[address] Tre García MD Work Phone: 1(544)366-776429 [place] [address] 09-15-2024 08:14-0400 Body mass index (BMI) [Ratio] 29.8 kg/m2 Dr. Tre García MD Work Phone: 0(745)923-393029 [place] [address] 09-15-2024 08:14-0400 Body weight 89.[address] Tre García MD Work Phone: 6(794)555-014129 [place] [address] 08-17-2024 14:28-0400 Body height 172.[address] Tre García MD Work Phone: 8(499)055-256029 [place] [address] 08-17-2024 14:28-0400 Body mass index (BMI) [Ratio] 30 kg/m2 Dr. Tre García MD Work Phone: 0(077)168-568229 [place] [address] 08-17-2024 14:28-0400 Body weight 89.[address] Tre García MD Work Phone: 2(385)154-858029 [place] [address] 07-27-2024 07:17-0500 Body mass index (BMI) [Ratio] 29.7 kg/m2 Dr. Tre García MD Work Phone: 7(620)758-644629 [place] [address] 07-27-2024 07:17-0500 Body weight 88.[address] Tre García MD Work Phone: 9(564)405-306129 [place] [address] 06-29-2024 13:26-0500 Body mass index (BMI) [Ratio] 29.8 kg/m2 Dr. Tre García MD Work Phone: 9(659)444-535529 [place] [address] 06-29-2024 13:26-0500 Body weight 89.[address] Tre García MD Work Phone: 6(500)483-960429 [place] [address] 05-29-2024 15:11-0500 Body mass index (BMI) [Ratio] 29.3 kg/m2 Dr. Tre García MD Work Phone: 2(942)268-773429 [place] [address] 05-29-2024 15:10-0500 Body weight 87.[address] Tre García MD Work Phone: 0(839)874-623829 [place] [address] 05-29-2024 14:36-0500 Diastolic blood pressure 74 mm[Hg] Dr. Tre García MD Work Phone: 8(198)819-239829 [place] [address] 05-29-2024 14:36-0500 Heart rate 90 /min Dr. Tre García MD Work Phone: 2([phone])187-114429 [place] [address] 05-29-2024 14:36-0500 SaO2% (BldA) [Mass fraction] 95 % Dr. Tre García MD Work Phone: [facility] 05-29-2024 14:36-0500 Systolic blood pressure 128 mm[Hg] Dr. Tre García MD Work Phone: [facility] 05-26-2024 13:57-0500 Body mass index (BMI) [Ratio] 31.33 kg/m2 Genie Bustamante MD Work Phone: [facility] 05-26-2024 13:57-0500 Body weight 91.17 kg Genie Bustamante MD Work Phone: [facility] 05-26-2024 13:57-0500 Diastolic blood pressure 70 mm[Hg] Genie Bustamante MD Work Phone: [facility] 05-26-2024 13:57-0500 Heart rate 87 /min Genie Bustamante MD Work Phone: [facility] 05-26-2024 13:57-0500 SaO2% (BldA) [Mass fraction] 96 % Genie Bustamante MD Work Phone: [facility] 05-26-2024 13:57-0500 Systolic blood pressure 126 mm[Hg] Genie Bustamante MD Work Phone: [facility] 05-17-2024 09:09-0500 Body mass index (BMI) [Ratio] 28.7 kg/m2 Dr. Tre García MD Work Phone: [facility] 05-17-2024 09:09-0500 Body temperature 96.9 [degF] Dr. Tre García MD Work Phone: [facility] 05-17-2024 09:09-0500 Diastolic blood pressure 71 mm[Hg] Dr. Tre García MD Work Phone: [facility] 05-17-2024 09:09-0500 Heart rate 84 /min Dr. Tre García MD Work Phone: [facility] 05-17-2024 09:09-0500 Respiratory rate 18 /min Dr. Tre García MD Work Phone: [facility] 05-17-2024 09:09-0500 Systolic blood pressure 131 mm[Hg] Dr. Tre García MD Work Phone: [facility] 05-10-2024 09:21-0500 Body weight 85.[address] Tre García MD Work Phone: [facility] 01-29-2024 12:36-0400 Body mass index (BMI) [Ratio] 30.44 kg/m2 Krislyn Aberegg PA Work Phone: [facility] 01-29-2024 12:36-0400 Body temperature 98.4 [degF] Krislyn Aberegg PA Work Phone: [facility] 01-29-2024 12:36-0400 Body weight 88.6 kg Krislyn Aberegg PA Work Phone: [facility] 01-29-2024 12:36-0400 Diastolic blood pressure 72 mm[Hg] Krislyn Aberegg PA Work Phone: [facility] 01-29-2024 12:36-0400 Heart rate 96 /min Krislyn Aberegg PA Work Phone: [facility] 01-29-2024 12:36-0400 Respiratory rate 18 /min Krislyn Aberegg PA Work Phone: [facility] 01-29-2024 12:36-0400 SaO2% (BldA) [Mass fraction] 95 % Krislyn Aberegg PA Work Phone: [facility] 01-29-2024 12:36-0400 Systolic blood pressure 138 mm[Hg] Krislyn Aberegg PA Work Phone: [facility] 11-09-2023 10:16-0400 Body mass index (BMI) [Ratio] 29.77 kg/m2 Genie Bustamante MD Work Phone: [facility] 11-09-2023 10:16-0400 Body weight 86.64 kg Genie Bustamante MD Work Phone: [facility] 11-09-2023 10:16-0400 Heart rate 83 /min Genie Bustamante MD Work Phone: [facility] 11-09-2023 10:16-0400 Respiratory rate 15 /min Genie Bustamante MD Work Phone: [facility] 11-09-2023 10:16-0400 SaO2% (BldA) [Mass fraction] 98 % Genie Bustamante MD Work Phone: [facility] 08-15-2023 13:13-0400 Body temperature 97.8 [degF] Dr. Tre García Work Phone: [facility] 08-15-2023 13:13-0400 Diastolic blood pressure 64 mm[Hg] Dr. Tre García Work Phone: [facility] 08-15-2023 13:13-0400 Heart rate 81 /min Dr. Tre García Work Phone: [facility] 08-15-2023 13:13-0400 Respiratory rate 16 /min Dr. Tre García Work Phone: [facility] 08-15-2023 13:13-0400 SaO2% (BldA) [Mass fraction] 96 % Dr. Tre García Work Phone: [facility] 08-15-2023 13:13-0400 Systolic blood pressure 124 mm[Hg] Dr. Tre García Work Phone: [facility] 08-15-2023 11:14-0400 Body height 172.[address] Tre García Work Phone: [facility] 06-02-2023 11:20-0500 Body height 175.[address] Jd Solis Work Phone: [facility] 06-02-2023 11:20-0500 Body mass index (BMI) [Ratio] 28.8 kg/m2 Dr. Jd Solis Work Phone: [facility] 06-02-2023 11:20-0500 Body weight 88.[address] Jd Solis Work Phone: [facility] 06-02-2023 11:20-0500 Diastolic blood pressure 85 mm[Hg] Dr. Jd Solis Work Phone: [facility] 06-02-2023 11:20-0500 Heart rate 83 /min Dr. Jd Solis Work Phone: [facility] 06-02-2023 11:20-0500 Respiratory rate 14 /min Dr. Jd Solis Work Phone: [facility] 06-02-2023 11:20-0500 Systolic blood pressure 125 mm[Hg] Dr. Jd Solis Work Phone: [facility] 04-19-2023 10:57-0500 Body height 170.6 cm [facility] Work Phone: [facility] 03-09-2023 09:35-0400 Body weight 88.95 kg Jd Solis MD Work Phone: [facility] 03-09-2023 09:35-0400 Diastolic blood pressure 78 mm[Hg] Jd Solis MD Work Phone: [facility] 03-09-2023 09:35-0400 Heart rate 88 /min Jd Solis MD Work Phone: [facility] 03-09-2023 09:35-0400 Respiratory rate 16 /min Jd Solis MD Work Phone: [facility] 03-09-2023 09:35-0400 Systolic blood pressure 120 mm[Hg] Jd Solis MD Work Phone: [facility] 01-21-2023 09:19-0400 Body height 175.3 cm Becky Fierro PA-C Work Phone: [facility] 01-21-2023 09:19-0400 Body weight 89.18 kg Becky Fierro PA-C Work Phone: [facility] 01-21-2023 09:19-0400 Diastolic blood pressure 70 mm[Hg] Becky Rhiannon PA-C Work Phone: [facility] 01-21-2023 09:19-0400 Heart rate 90 /min Becky Rhiannon PA-C Work Phone: [facility] 01-21-2023 09:19-0400 Respiratory rate 14 /min Becky Rhiannon PA-C Work Phone: [facility] 01-21-2023 09:19-0400 SaO2% (BldA) [Mass fraction] 94 % Becky Rhiannon PA-C Work Phone: [facility] 01-21-2023 09:19-0400 Systolic blood pressure 116 mm[Hg] Becky Rhiannon PA-C Work Phone: [facility] 12-10-2022 08:43-0400 Body weight 88.91 kg Becky Rhiannon PA-C Work Phone: [facility] 09-08-2022 09:14-0400 Body weight 87.09 kg Jd Solis MD Work Phone: [facility] 09-08-2022 09:14-0400 Diastolic blood pressure 78 mm[Hg] Jd Solis MD Work Phone: [facility] 09-08-2022 09:14-0400 Heart rate 68 /min Jd Solis MD Work Phone: [facility] 09-08-2022 09:14-0400 Respiratory rate 16 /min Jd Solis MD Work Phone: [facility] 09-08-2022 09:14-0400 Systolic blood pressure 120 mm[Hg] Jd Solis MD Work Phone: [facility] 08-19-2022 09:02-0400 Body temperature 96.91 [degF] Mich Mathis APRN.POWER BRAKE OPERATOR Work Phone: [facility] 08-19-2022 09:02-0400 Body weight 88.91 kg Mich Del CORN DETASSELER.POWER BRAKE OPERATOR Work Phone: [facility] 08-19-2022 09:02-0400 Diastolic blood pressure 76 mm[Hg] Mich Del CORN DETASSELER.POWER BRAKE OPERATOR Work Phone: [facility] 08-19-2022 09:02-0400 Heart rate 118 /min Mich Del CORN DETASSELER.POWER BRAKE OPERATOR Work Phone: [facility] 08-19-2022 09:02-0400 Respiratory rate 18 /min Mich Del CORN DETASSELER.POWER BRAKE OPERATOR Work Phone: [facility] 08-19-2022 09:02-0400 SaO2% (BldA) [Mass fraction] 94 % Mich Mathis CORN DETASSELER.POWER BRAKE OPERATOR Work Phone: [facility] 08-19-2022 09:02-0400 Systolic blood pressure 124 mm[Hg] Mich Mathis CORN DETASSELER.POWER BRAKE OPERATOR Work Phone: [facility] 07-09-2022 10:16-0500 Body weight 89.36 kg Genie Bustamante MD Work Phone: [facility] 07-09-2022 10:16-0500 Diastolic blood pressure 65 mm[Hg] Genie Bustamante MD Work Phone: [facility] 07-09-2022 10:16-0500 Heart rate 92 /min Genie Bustamante MD Work Phone: [facility] 07-09-2022 10:16-0500 SaO2% (BldA) [Mass fraction] 94 % Genie Bustamante MD Work Phone: [facility] 07-09-2022 10:16-0500 Systolic blood pressure 126 mm[Hg] Genie Bustamante MD Work Phone: [facility] 05-13-2022 08:47-0500 Body weight 88.45 kg Betty Barraza CORN DETASSELER.POWER BRAKE OPERATOR Work Phone: [facility] 05-13-2022 08:47-0500 Diastolic blood pressure 70 mm[Hg] Betty Barraza CORN DETASSELER.POWER BRAKE OPERATOR Work Phone: [facility] 05-13-2022 08:47-0500 Heart rate 98 /min Betty Tannhof CORN DETASSELER.POWER BRAKE OPERATOR Work Phone: [facility] 05-13-2022 08:47-0500 Respiratory rate 16 /min Betty Tannhof CORN DETASSELER.POWER BRAKE OPERATOR Work Phone: [facility] 05-13-2022 08:47-0500 SaO2% (BldA) [Mass fraction] 97 % Betty Tannhof CORN DETASSELER.POWER BRAKE OPERATOR Work Phone: [facility] 05-13-2022 08:47-0500 Systolic blood pressure 114 mm[Hg] Betty Tannhof CORN DETASSELER.POWER BRAKE OPERATOR Work Phone: [facility] 05-10-2022 09:30-0500 Body temperature 98.29 [degF] Moi [facility] CORN DETASSELER.POWER BRAKE OPERATOR Work Phone: [facility] 05-10-2022 09:30-0500 Body weight 88.45 kg Moi Pendleyale [facility] CORN DETASSELER.POWER BRAKE OPERATOR Work Phone: [facility] 05-10-2022 09:30-0500 Diastolic blood pressure 78 mm[Hg] Moi Pendlebury CORN DETASSELER.POWER BRAKE OPERATOR Work Phone: [facility] 05-10-2022 09:30-0500 Heart rate 108 /min Moi Pendlebury CORN DETASSELER.POWER BRAKE OPERATOR Work Phone: [facility] 05-10-2022 09:30-0500 Respiratory rate 18 /min Moi Pendlebury CORN DETASSELER.POWER BRAKE OPERATOR Work Phone: [facility] 05-10-2022 09:30-0500 SaO2% (BldA) [Mass fraction] 95 % Moi Pendlebury CORN DETASSELER.POWER BRAKE OPERATOR Work Phone: [facility] 05-10-2022 09:30-0500 Systolic blood pressure 124 mm[Hg] Moi Pendlebury CORN DETASSELER.POWER BRAKE OPERATOR Work Phone: [facility] 05-03-2022 12:22-0500 Body temperature 97.2 [degF] Camila Souleymane SUNNY.POWER BRAKE OPERATOR Work Phone: [facility] 05-03-2022 12:22-0500 Body weight 79.56 kg Camila Comer CORN DETASSELER.POWER BRAKE OPERATOR Work Phone: [facility] 05-03-2022 12:22-0500 Diastolic blood pressure 76 mm[Hg] Camila Souleymane DONGN.POWER BRAKE OPERATOR Work Phone: [facility] 05-03-2022 12:22-0500 Heart rate 88 /min Camilapipo Comer APRN.POWER BRAKE OPERATOR Work Phone: [facility] 05-03-2022 12:22-0500 Respiratory rate 16 /min Camila Souleymane DONGN.POWER BRAKE OPERATOR Work Phone: [facility] 05-03-2022 12:22-0500 SaO2% (BldA) [Mass fraction] 95 % Camilajavon Comer APRN.POWER BRAKE OPERATOR Work Phone: [facility] 05-03-2022 12:22-0500 Systolic blood pressure 130 mm[Hg] Camila Comer CORN DETASSELER.POWER BRAKE OPERATOR Work Phone: [facility] 04-10-2022 08:50-0500 Body weight 88 kg Becky Fierro PA-C Work Phone: [facility] 03-11-2022 13:14-0400 Body weight 88.36 kg Jd Solis MD Work Phone: [facility] 03-11-2022 13:14-0400 Diastolic blood pressure 72 mm[Hg] Jd Solis MD Work Phone: [facility] 03-11-2022 13:14-0400 Heart rate 80 /min Jd Solis MD Work Phone: [facility] 03-11-2022 13:14-0400 Respiratory rate 16 /min Jd Solis MD Work Phone: [facility] 03-11-2022 13:14-0400 SaO2% (BldA) [Mass fraction] 95 % Jd Solis MD Work Phone: [facility] 03-11-2022 13:14-0400 Systolic blood pressure 118 mm[Hg] Jd Solis MD Work Phone: [facility] 03-11-2022 09:11-0400 Body height 172.5 cm Respiratory Wstr Work Phone: [facility] 03-11-2022 09:11-0400 Body weight 88 kg Respiratory Wstr Work Phone: [facility] 02-27-2022 13:20-0400 Body weight 87.09 kg Genie Bustamante MD Work Phone: [facility] 02-27-2022 13:20-0400 Diastolic blood pressure 78 mm[Hg] Genie Bustamante MD Work Phone: [facility] 02-27-2022 13:20-0400 Heart rate 83 /min Genie Bustamante MD Work Phone: [facility] 02-27-2022 13:20-0400 Respiratory rate 16 /min Genie Bustamante MD Work Phone: [facility] 02-27-2022 13:20-0400 SaO2% (BldA) [Mass fraction] 98 % Genie Bustamante MD Work Phone: [facility] 02-27-2022 13:20-0400 Systolic blood pressure 138 mm[Hg] Genie Bustamante MD Work Phone: [facility] 02-23-2022 11:31-0400 Body weight 87.09 kg Betty Tannhof CORN DETASSELER.POWER BRAKE OPERATOR Work Phone: [facility] 02-23-2022 11:31-0400 Diastolic blood pressure 70 mm[Hg] Betty Tannhof CORN DETASSELER.POWER BRAKE OPERATOR Work Phone: [facility] 02-23-2022 11:31-0400 Heart rate 94 /min Betty Tannhof CORN DETASSELER.POWER BRAKE OPERATOR Work Phone: [facility] 02-23-2022 11:31-0400 Respiratory rate 16 /min Betty Tannhof CORN DETASSELER.POWER BRAKE OPERATOR Work Phone: [facility] 02-23-2022 11:31-0400 SaO2% (BldA) [Mass fraction] 90 % Betty Alvarezhof CORN DETASSELER.POWER BRAKE OPERATOR Work Phone: [facility] 02-23-2022 11:31-0400 Systolic blood pressure 110 mm[Hg] Betty Alvarezhof CORN DETASSELER.POWER BRAKE OPERATOR Work Phone: [facility] 02-15-2022 11:10-0400 Body temperature 97.2 [degF] Camila Comer CORN DETASSELER.POWER BRAKE OPERATOR Work Phone: [facility] 02-15-2022 11:10-0400 Body weight 87.09 kg Camila Comer CORN DETASSELER.POWER BRAKE OPERATOR Work Phone: [facility] 02-15-2022 11:10-0400 Diastolic blood pressure 68 mm[Hg] Camila Comer CORN DETASSELER.POWER BRAKE OPERATOR Work Phone: [facility] 02-15-2022 11:10-0400 Heart rate 95 /min Camila Comer CORN DETASSELER.POWER BRAKE OPERATOR Work Phone: [facility] 02-15-2022 11:10-0400 Respiratory rate 18 /min Camila Comer CORN DETASSELER.POWER BRAKE OPERATOR Work Phone: [facility] 02-15-2022 11:10-0400 SaO2% (BldA) [Mass fraction] 95 % Camila Comer CORN DETASSELER.POWER BRAKE OPERATOR Work Phone: [facility] 02-15-2022 11:10-0400 Systolic blood pressure 106 mm[Hg] Camila Comer CORN DETASSELER.POWER BRAKE OPERATOR Work Phone: [facility] 02-06-2022 09:11-0400 Body weight 88.45 kg Betty Barraza CORN DETASSELER.POWER BRAKE OPERATOR Work Phone: [facility] 02-06-2022 09:11-0400 Diastolic blood pressure 68 mm[Hg] Betty Alvarezhof CORN DETASSELER.POWER BRAKE OPERATOR Work Phone: [facility] 02-06-2022 09:11-0400 Heart rate 87 /min Betty Tannhof CORN DETASSELER.POWER BRAKE OPERATOR Work Phone: [facility] 02-06-2022 09:11-0400 Respiratory rate 16 /min Betty Barraza CORN DETASSELER.POWER BRAKE OPERATOR Work Phone: [facility] 02-06-2022 09:11-0400 SaO2% (BldA) [Mass fraction] 96 % Betty Barraza CORN DETASSELER.POWER BRAKE OPERATOR Work Phone: [facility] 02-06-2022 09:11-0400 Systolic blood pressure 116 mm[Hg] Betty Barraza CORN DETASSELER.POWER BRAKE OPERATOR Work Phone: [facility] 12-03-2021 10:25-0400 Body weight 88.45 kg Berkley Rajguru CORN DETASSELER.POWER BRAKE OPERATOR Work Phone: [facility] 12-03-2021 10:25-0400 Diastolic blood pressure 58 mm[Hg] Berkley Rajguru CORN DETASSELER.POWER BRAKE OPERATOR Work Phone: [facility] 12-03-2021 10:25-0400 Systolic blood pressure 122 mm[Hg] Berkley Rajguru CORN DETASSELER.POWER BRAKE OPERATOR Work Phone: [facility] 09-03-2021 12:49-0400 Body weight 86.73 kg Jd Solis MD Work Phone: [facility] 09-03-2021 12:49-0400 Diastolic blood pressure 72 mm[Hg] Jd Solis MD Work Phone: [facility] 09-03-2021 12:49-0400 Heart rate 68 /min Jd Solis MD Work Phone: [facility] 09-03-2021 12:49-0400 Respiratory rate 14 /min Jd Solis MD Work Phone: [facility] 09-03-2021 12:49-0400 Systolic blood pressure 120 mm[Hg] Jd Solis MD Work Phone: [facility] 08-27-2021 10:53-0400 Body weight 88 kg Berkley Rajguru CORN DETASSELER.POWER BRAKE OPERATOR Work Phone: [facility] 08-27-2021 10:53-0400 Diastolic blood pressure 66 mm[Hg] Berkley Roque CORN DETASSELER.POWER BRAKE OPERATOR Work Phone: [facility] 08-27-2021 10:53-0400 Heart rate 68 /min Berkley Roque CORN DETASSELER.POWER BRAKE OPERATOR Work Phone: [facility] 08-27-2021 10:53-0400 Systolic blood pressure 122 mm[Hg] Berkley Roque CORN DETASSELER.POWER BRAKE OPERATOR Work Phone: [facility] Encounters Encounter Date Encounter Type Care Provider Facility Start: 03-19-2025 ambulatory Tre Chi Ricky Facility:[facility] Start: 02-01-2025 ambulatory Tre Chi Ricky Facility:[facility] Start: 02-01-2025 ambulatory Tre Chi Ricky Facility:[facility] Start: 01-31-2025 End: 01-31-[address] Andres Schneider MD -[facility] Work Phone: Start: 01-31-2025 End: 01-31-[address] Tre García MD Work Phone: -[facility] Start: 01-25-2025 Non-patient / Non-visit Dr. Kaylyn Ahumada MD -[facility] Work Phone: Start: 01-25-2025 End: 01-28-[address] Beba Ahumada MD -[facility] Work Phone: Start: 01-25-2025 End: 01-28-[address] Tre García MD Work Phone: -[facility] Start: 01-24-2025 End: 01-24-[address] Tre García MD Work Phone: -Cat Scan [facility] Start: 01-24-2025 End: 01-24-[address] Tre García MD -Cat Scan [facility] Work Phone: Start: 01-24-2025 End: 01-24-2025 ambulatory Tre Chi Ricky Facility:[facility] Start: 01-02-2025 End: 01-02-[address] Tre García MD Work Phone: -Laboratory Start: 01-02-2025 End: 01-02-[address] Andres Schneider MD -Laboratory Work Phone: Start: 01-02-2025 End: 01-02-[address] Andres Schneider MD -[facility] Work Phone: Start: 01-02-2025 End: 01-02-[address] Tre García MD Work Phone: -[facility] Start: 01-02-2025 End: 01-02-2025 ambulatory Andres Schneider Facility:[facility] Start: 12-14-2024 Non-patient / Non-visit Elvia Oliver [facility] Work Phone: Start: 12-14-2024 ambulatory Tre Chi Ricky Facility:[facility] Start: 11-29-2024 End: 11-29-[address] Tre García MD Work Phone: -Laboratory Start: 11-29-2024 End: 11-29-[address] Tre García MD -Laboratory Work Phone: Start: 11-29-2024 End: 11-29-2024 ambulatory Tre Chi Ricky Facility:[facility] Start: 11-27-2024 ambulatory Tre Chi Ricky Facility:[facility] Start: 11-27-2024 Non-patient / Non-visit Dr. Ashu king MD -[facility] Start: 11-26-2024 Non-patient / Non-visit Dr. Marilin Avila DO -[facility] Work Phone: Start: 11-25-2024 Non-patient / Non-visit Dr. Megan Garcia MD -[facility] Work Phone: Start: 11-25-2024 End: 11-27-2024 ambulatory Tre Chi Ricky Facility:[facility] Start: 11-25-2024 End: 11-27-2024 Evaluation and management of inpatient Dr. Megan Garcia MD -Progressive Care Unit Work Phone: Start: 11-25-2024 End: 11-27-[address] Tre García MD Work Phone: -Progressive Care Unit Start: 11-08-2024 ambulatory [facility] Facility:[facility] Start: 10-13-2024 End: 10-28-[address] Tre García MD Work Phone: [facility] Work Phone: Start: 10-13-2024 End: 10-28-[address] Tre García MD -Pulmonary Rehab Work Phone: Start: 09-19-2024 End: 09-19-[address] Tre García MD Work Phone: [facility] Work Phone: Start: 09-19-2024 End: 09-19-[address] Tre García MD -Laboratory Work Phone: Start: 09-18-2024 End: 09-27-2024 ambulatory [facility] Facility:[facility] Start: 09-18-2024 End: 09-27-[address] Tre García MD -Pulmonary Rehab Work Phone: Start: 09-18-[address] Tre moore MD -Pulmonary Rehab Work Phone: Start: 08-28-2024 End: 08-28-[address] Tre García MD Work Phone: [facility] Work Phone: Start: 08-28-2024 End: 08-28-[address] Tre García MD -Pulmonary Rehab Work Phone: Start: 08-21-[address] Tre moore MD -Pulmonary Rehab Work Phone: Start: 08-14-2024 End: 08-14-[address] Tre García MD Work Phone: [facility] Work Phone: Start: 08-14-2024 End: 08-14-[address] Tre García MD -Laboratory, Phy Office [address] [place] Start: 08-14-2024 End: 08-14-2024 ambulatory [facility] Facility:[facility] Start: 07-28-2024 End: 07-28-2024 ambulatory [facility] Facility:[facility] Start: 07-28-2024 End: 07-28-[address] Tre García MD -Pulmonary Rehab Work Phone: Start: 06-30-2024 End: 06-30-2024 ambulatory [facility] Facility:[facility] Start: 06-30-2024 End: 06-30-[address] Tre García MD -Pulmonary Rehab Work Phone: Start: 05-29-2024 End: 05-29-[address] Tre García MD -Pulmonary Rehab Work Phone: Start: 05-29-2024 End: 05-29-2024 ambulatory [facility] Facility:[facility] Start: 05-26-2024 End: 05-26-2024 ambulatory GENIE BUSTAMANTE Facility:[facility] Start: 05-26-2024 End: 05-26-2024 Patient encounter procedure Genie Bustamante MD Work Phone: Pulmonary Medicine Comment on above: Small airways diseas e (Primary Dx); History of COVID-19; Diaphragm, eventration Start: 05-17-2024 Non-patient / Non-visit Kimberly franklin RESIDENTIAL SALES EXECUTIVE-C -[facility] Start: 05-17-2024 End: 05-22-2024 ambulatory Kimberly Swenson RESIDENTIAL SALES EXECUTIVE Facility:[facility] Start: 05-17-2024 End: 05-22-2024 Discharged Recurring Kimberly Swenson RESIDENTIAL SALES EXECUTIVE-C -[facility] Work Phone: Start: 05-10-2024 Non-patient / Non-visit Kimberly franklin RESIDENTIAL SALES EXECUTIVE-C -[facility] Start: 05-01-2024 End: 05-01-[address] Tre García MD -Laboratory, Phy Office 3rd [address] Start: 05-01-2024 End: 05-01-2024 ambulatory Tre García Facility:[facility] Start: 04-12-2024 ambulatory Heather Galvin RESIDENTIAL SALES EXECUTIVE Facili ty:[facility] Start: 04-12-2024 End: 04-12-2024 ambulatory Heather aGlvin NP Facility:[facility] Start: 03-21-2024 End: 03-21-2024 ambulatory [facility] Facility:[facility] Start: 03-09-2024 End: 03-27-2024 ambulatory Becky Fierro PA-C Work Phone: Pulmonary Medicine Comment on above: COPD Start: 03-06-2024 End: 03-06-2024 ambulatory [facility] Facility:[facility] Start: 03-01-2024 End: 03-01-2024 ambulatory Genie Bustamante MD Work Phone: Pulmonary Medicine Comment on above: TRELEGLORIA ellipta Start: 02-28-2024 End: 02-28-2024 ambulatory [facility] Facility:[facility] Start: 02-23-2024 End: 02-23-2024 Subsequent hospital visit by physician [facility] Work Phone: Radiology Comment on above: Acute cough [R05.1] Start: 02-23-2024 End: 02-23-2024 ambulatory BECKY FIERRO Facility:[facility] Start: 02-23-2024 End: 02-23-2024 Patient encounter [...] 19 vaccines Start: 02-15-2024 End: 02-15-2024 ambulatory [facility] Facility:[facility] Start: 02-08-2024 End: 02-08-2024 ambulatory [facility] Facility:[facility] Start: 01-29-2024 End: 01-29-2024 ambulatory [facility] Facility:[facility] Start: 01-29-2024 End: 01-29-2024 Patient encounter procedure Fer PORTER Work Phone: [facility] Comment on above: URI, acute (Primary Dx) Start: 11-09-2023 End: 11-09-2023 ambulatory GENIE BUSTAMANTE Facility:[facility] Start: 11-09-2023 End: 11-09-2023 Patient encounter procedure Genie Bustamante MD Work Phone: Pulmonary Medicine Comment on above: Mild persistent asth ma without complication (Primary Dx); Seasonal allergies Start: 09-20-2023 End: 09-20-[address] Tre García Work Phone: [facility] Work Phone: Start: 09-20-2023 End: 09-20-[address] Tre García Work Phone: [facility]-Laboratory, Phy Office 3rd Flr Start: 08-15-2023 End: 08-15-2023 Emergency department patient visit Dr. Tre García Work Phone: [facility]-Emergency Department Work Phone: Start: 07-02-2023 Telephone encounter Becky Fierro PA-C Work Phone: Pulmonary Medicine Comment on above: Medication Problem Start: 07-02-2023 End: 07-02-[address] Jd Solis Work Phone: [facility] Work Phone: Start: 07-02-2023 End: 07-02-[address] Jd Solis Work Phone: [facility]-Laboratory, Phy Office 3rd Flr Start: 06-02-2023 End: 06-02-[address] Jd Solis Work Phone: [facility] Work Phone: Start: 06-02-2023 End: 06-02-[address] Jd Solis Work Phone: [facility] Work Phone: Start: 05-03-2023 Refill Betty Barraza CORN DETASSELER.POWER BRAKE OPERATOR Work Phone: [facility] Comment on above: Refill Request Start: 04-19-2023 End: 04-19-2023 ambulatory Pulm Lab [facility] Work Phone: PULM LAB [facility]PLAC[facility] Comment on above: Spirometry Start: 04-19-2023 End: 04-19-2023 Patient encounter procedure Pulm Lab [facility] Work Phone: [facility] Start: 04-08-2023 End: 04-08-[address] Jd Solis Work Phone: [facility]-Pulmonary Services/Neurology Work Phone: Start: 04-05-2023 Non-patient / Non-visit Dr. Joe Solis Work Phone: [facility] Start: 04-05-2023 End: 04-05-[address] Jd Solis Work Phone: [facility] Work Phone: Start: 04-05-2023 End: 04-05-[address] Jd Solis Work Phone: [facility]-Cardiovascul ar Services Work Phone: Start: 03-18-2023 End: 03-18-2023 ambulatory [facility] Work Phone: Start: 03-18-2023 End: 03-18-2023 Patient encounter procedure [facility]-Laboratory, Phy Office 3rd Flr Start: 03-09-2023 End: 03-09-2023 Patient encounter procedure Jd Solis MD Work Phone: [facility] Comment on above: Essential hypertensi on, benign (Primary Dx); Moderate persistent asthma without complication; Benign non-nodular prostatic hyperplasia with lower urinary tract symptoms; Recurrent major depressive disorder, in full remission (HCC); Anxiety; Low platelet count (HCC) Start: 03-01-2023 End: 03-01-2023 Subsequent hospital visit by physician [facility] Work Phone: Nuclear Medicine Comment on above: PERSON (dyspnea on exer tion) [R06.09] Start: 01-21-2023 End: 01-21-2023 Patient encounter procedure Becky PORTER-C Work Phone: Pulmonary Medicine Comment on above: Cough variant asthma (Primary Dx); Gastroesophageal reflux disease, unspecified whether esophagitis present; History of environmental allergies; History of COVID-19 Start: 12-23-2022 ambulatory Becky Chris-C Work Phone: Pulmonary Medicine Comment on above: results Start: 12-23-2022 E-mail encounter fro m caregiver Becky PATELC Work Phone: [facility] Start: 12-11-2022 Telephone encounter Becky PATELC Work Phone: Pulmonary Medicine Comment on above: Medication Problem ( Not sure of increase of dosage) Start: 12-10-2022 End: 12-10-2022 ambulatory Pulm Lab [facility] Work Phone: PULM LAB [facility] Comment on above: Spirometry Start: 12-10-2022 End: 12-10-2022 Patient encounter procedure Pulm Lab [facility] Work Phone: [facility] Comment on above: Cough variant asthma (Primary Dx); SOB (shortness of breath); History of environmental allergies Start: 12-06-2022 ambulatory Genie Bustamante MD Work Phone: Pulmonary Medicine Comment on above: Medication question Start: 09-18-2022 ambulatory Becky Cari Mcleod angus PA-Veeda Work Phone: Pulmonary Medicine Comment on above: Albuterol Inhaler Start: 09-08-2022 End: 09-08-2022 Patient encounter procedure Jd Solis MD Work Phone: Family [facility] Comment on above: Essential hypertensi on, benign (Primary Dx); Recurrent major depressive disorder, in full remission (HCC); Benign non-nodular prostatic hyperplasia with lower urinary tract symptoms; Moderate persistent asthma without complication; Musculoskeletal pain; Thrombocyte disorder (HCC); Elevated glucose Start: 08-24-2022 Refill Becky M Harsha angus PA-Veeda Work Phone: Pulmonary Medicine Comment on above: Refill Request Start: 08-19-2022 End: 08-19-2022 Subsequent hospital visit by physician [facility] Work Phone: Radiology Comment on above: Rib pain on right si de [R07.81] Start: 08-19-2022 End: 08-19-2022 Patient encounter procedure Mich Mathis APRN.POWER BRAKE OPERATOR Work Phone: [facility] Comment on above: Rib pain on right si de (Primary Dx) Start: 07-09-2022 End: 07-09-2022 Patient encounter procedure Genie Bustamante MD Work Phone: Pulmonary Medicine Comment on above: Cough variant asthma (Primary Dx) Start: 05-13-2022 End: 05-13-2022 Patient encounter procedure Betty Barraza APRN.POWER BRAKE OPERATOR Work Phone: [facility] Comment on above: SOB (shortness of br eath) (Primary Dx); Acute cough; Moderate persistent asthma without complication Start: 05-11-2022 End: 05-11-2022 Subsequent hospital visit by physician Holden [facility] Work Phone: Radiology Comment on above: Acute cough [R05.1] Start: 05-10-2022 End: 05-10-2022 Patient encounter procedure Moi Elian CORN DETASSELER.POWER BRAKE OPERATOR Work Phone: [facility] Comment on above: Viral illness (Prima ry Dx); Acute cough Start: 05-03-2022 End: 05-03-2022 Patient encounter procedure Camila Comer CORN DETASSELER.POWER BRAKE OPERATOR Work Phone: [facility] Comment on above: URI, acute (Primary Dx); Rhinosinusitis Start: 04-30-2022 Telephone encounter Betty Loredo jazmín CORN DETASSELER.POWER BRAKE OPERATOR Work Phone: [facility] Comment on above: Results (Covid/Flu ) [...] Telephone encounter Jd key MD Work Phone: [address] [place] [address] Comment on above: Patient Question Start: 03-19-2022 Refill Mayur HILL RN.POWER BRAKE OPERATOR Work Phone: [facility] Comment on above: Refill Request Start: 03-17-2022 ambulatory Genie Bustamante MD Work Phone: Pulmonary Medicine Comment on above: Mucinex Start: 03-16-2022 ambulatory Genie Bustamante MD Work Phone: Pulmonary Medicine Comment on above: Steroid Beta inhaler Start: 03-12-2022 ambulatory Genie Bustamante MD Work Phone: Pulmonary Medicine Comment on above: Flu and booster shot s Start: 03-11-2022 End: 03-11-2022 ambulatory Respiratory Therapist [facility] Work Phone: Pulmonary Medicine Comment on above: Spirometry Question about twist haler Start: 03-11-2022 End: 03-11-2022 Patient encounter procedure Respiratory Therapist [facility] Work Phone: [facility] Comment on above: Essential hypertensi on, [...] COVID-19 Start: 02-25-2022 Telephone encounter Betty noyola APRN.CNP Work Phone: Family [facility] Comment on above: Results (Labs) Start: 02-23-2022 End: 02-23-2022 Subsequent hospital visit by physician Xr [facility] Work Phone: Radiology Comment on above: SOB (shortness of br eath) [R06.02] Start: 02-23-2022 End: 02-23-2022 Patient encounter procedure Betty Barraza APRN.CNP Work Phone: [facility] Comment on above: SOB (shortness of br eath) (Primary Dx); Bronchitis; Fatigue, unspecified type Start: 02-16-2022 Telephone encounter Camila Comer APRN.CNP Work Phone: [facility] Comment on above: Results Start: 02-15-2022 End: 02-15-2022 Patient encounter procedure Camila Comer APRN.CNP Work Phone: [facility] Comment on above: At increased risk of exposure to COVID-19 virus (Primary Dx) Start: 02-06-2022 End: 02-06-2022 Patient encounter procedure Betty Barraza APRN.CNP Work Phone: [facility] Comment on above: Viral illness (Prima ry Dx); Acute cough Start: 12-03-2021 End: 12-03-2021 Patient encounter procedure Berkley Roque CORN DETASSELER.POWER BRAKE OPERATOR Work Phone: Psychiatry Comment on above: Recurrent major depr essive disorder, in full remission (HCC) (Primary Dx) Start: 09-03-2021 End: 09-03-2021 Patient encounter procedure Jd Solis MD Work Phone: [facility] Comment on above: Essential hypertensi on, benign (Primary Dx); Encounter for hepatitis C screening test for low risk patient; Benign non-nodular prostatic hyperplasia with lower urinary tract symptoms; Recurrent major depressive disorder, in full remission (HCC) Start: 08-27-2021 End: 08-27-2021 Patient encounter procedure Berkley Roque CORN DETASSELER.POWER BRAKE OPERATOR Work Phone: Psychiatry Comment on above: Recurrent major depr essive disorder, in full remission (HCC) (Primary Dx) Procedures Date Procedure Procedure Detail Performing Clinician Start: 01-24-2025 CT of head without contrast Dr. Tre García MD Work Phone: Start: 01-23-[address] Tre García MD Work Phone: Start: 01-23-2025 End: 01-23-[address] Tre moore MD Work Phone: Start: 01-23-2025 Gram stain microscopy Shara García MD Work Phone: Start: 01-23-2025 End: 01-23-2025 Microbial culture, routine Dr. Tre García MD Work Phone: Start: 01-02-2025 Hepatitis B surface antibody measurement Dr. Tre García MD Work Phone: Start: 01-02-[address] e fraction Dr. Tre García MD Work Phone: Start: 01-02-2025 Serum inorganic phos phate measurement Dr. Tre García MD Work Phone: Start: 01-02-2025 Total iron binding c apacity measurement Dr. Tre García MD Work Phone: Start: 11-29-2024 Factor VIII: C assay Dr Silva García MD Work Phone: Start: 11-29-2024 Fibrinogen assay, quantitative Dr. Tre García MD Work Phone: Start: 11-29-[address] Tre García MD Work Phone: Comment on above: COAGULATION:VON WILLEBRAND FACTOR ASSESSMENT CURRENT RESULTS ASSESSMENTThe VWF:Ag is normal. The VWF:Activity is elevated. TheFVIII is normal.VON WILLEBRAND FACTOR ASSESSMENT CURRENT RESULTSINTERPRETATION-These results are not consistent with a diagnosis of vonWillebrand Disease.VON WILLEBRAND FACTOR ASSESSMENT-Results may be falsely elevated and possibly falsely normalas VWF and FVIII may increase in samples drawn from patients(particularly children) who are visibly stressed at the timeof phlebotomy, as acute phase reactants, or in response tocertain drug therapies such as desmopressin. Repeat testingmay be necessary before excluding a diagnosis of VWDespecially if the clinical suspicion is high for anunderlying bleeding disorder. The setting for phlebotomyshould be as calm as possible and patients should beencouraged to sit quietly prior to the blood draw.VON WILLEBRAND FACTOR ASSESSMENT DEFINITIONS-VWD - von Willebrand disease; VWF - von Willebrand factor;VWF:Ag - VWF antigen; VWF:Activity - VWF activity; FVIII -factor VIII activity.-For questions regarding panel interpretation, please contactLabcorp at . DISCLAIMERThese assessments and interpretations are provided as aconvenience in support of the physician-patient relationshipand are not intended to replace the physician's clinicaljudgment. They are derived from national guidelines inaddition to other evidence and expert opinion. The clinicianshould consider this information within the context ofclinical opinion and the individual patient.SEE GUIDANCE FOR VON WILLEBRAND FACTOR ASSESSMENT: (1) TheNational Heart, Lung and Blood [place]. The Diagnosis,Evaluation and Management of von Willebrand Disease.[place], [place]: National Institutes of Health Itvcxtoddom04-7079. 2007. Available athttp://www.nhlbi.nih.gov/guidelines/vwd/. (2) Adal schmidtl. Am J Hematol. 2009; 84(6):366-370. (3) Naveed M et al.Haemophilia. 2004;10(3):199-217. (4) Maria G SERRATO et al.Haemophilia. 2004; 10(3):218-231.Performed at: [facility] [address] [id number] Director: Vladimir Stapleton MD, Phone: [phone] at: [facility] [employer] [facility] / [id number] [place] [id number] Director: Becky Biggs MD, Phone: [phone] Start: 11-26-2024 MRI of brain without contrast Dr. Tre García MD Work Phone: Start: 11-26-[address] Tre Gacría MD Work Phone: Start: 11-25-2024 CT angiography of he ad and neck Dr. Tre García MD Work Phone: Start: 11-25-2024 CT of head without contrast Dr. Tre García MD Work Phone: Start: 11-25-2024 Plain chest X-ray Dr. Enedina García MD Work Phone: Start: 11-25-[address] Tre García MD Work Phone: Start: 09-19-2024 Prostate specific an tigen measurement [...] MD Work Phone: Start: 05-01-[address] Tre García MD Work Phone: Start: 05-01-2024 Gram stain microscopy D josé miguel García MD Work Phone: Start: 05-01-2024 Microbial culture, routine Dr. Tre García MD Work Phone: Start: 02-23-2024 Radiologic exam ches t 2 views Becky PORTER-C Work Phone: Start: 08-15-2023 CT of head without contrast Dr. Tre García Work Phone: Start: 04-19-2023 Spmtry w/vc expirato ry lindsay w/wo mxml vol vntj Becky Fierro PA-C Work Phone: Start: 04-19-2023 Unlisted pulmonary service/procedure Becky PATELC Work Phone: Start: 04-08-2023 Coronavirus COVID-[address] Jd Solis Work Phone: Start: 04-08-2023 Influenza Types A,B Direct FA (DAMARI) Dr. Jd Solis Work Phone: Start: 04-08-2023 Respiratory syncytia l virus antigen assay Dr. Jd Solis Work Phone: Start: 03-01-2023 Myocardial spect mul tiple studies dJ Solis MD Work Phone: Start: 12-10-2022 Nitric oxide gas determination Becky Fierro PA-C Work Phone: Start: 08-19-2022 Radex ribs uni w/pos teroant ch minimum 3 views Mich Mathis CORN DETASSELER.POWER BRAKE OPERATOR Work Phone: Start: 05-11-2022 Radiologic exam ches t 2 views Moi Plummer CORN DETASSELER.POWER BRAKE OPERATOR Work Phone: Start: 03-11-2022 Nitric oxide gas determination Genie Bustamante MD Work Phone: Start: 03-11-2022 Brncdilat rspse spmt ry pre&post-brncdilat admn Genie Bustamante MD Work Phone: Start: 02-23-2022 Radiologic exam ches t 2 views Betty Barraza CORN DETASSELER.POWER BRAKE OPERATOR Work Phone: Plan of Treatment Date Care Activity Detail Author Start: 03-19-2033 Urine microalbumin profile DTa P,Tdap,Td Vaccine (5 - Td or Tdap) [facility] Start: 10-01-2026 Urine microalbumin profile [facility] Start: 09-08-2025 DIABETES SCREEN DIABETES SCREEN [facility] Start: 09-08-2025 Diabetes Screening Diabetes Screenin g [facility] Start: 05-26-2025 BP Controlled (<130/80) BP Con trolled (<130/80) [facility] Start: 05-11-2025 DIABETES SCREEN DIABETES SCREEN [facility] Start: 02-23-2025 DIABETES SCREEN DIABETES SCREEN [facility] Start: 02-22-2025 BP Controlled (<130/80) BP Con trolled (<130/80) [facility] Start: 01-23-2025 Anaerobic microbial culture Anaerobic Culture [facility] Start: 01-23-2025 End: 01-23-2025 Bacterial nucleic acid assay [facility] Start: 01-23-2025 End: 01-23-2025 Source specific culture [facility] Start: 01-02-2025 C reactive protein [Mass/volume] in Serum or Plasma [facility] Start: 01-02-2025 CBC W Auto Different ial panel - Blood [facility] Start: 01-02-2025 Comprehensive metabo lic 2000 panel - Serum or Plasma [facility] Start: 01-02-2025 Erythrocyte sediment ation rate [facility] Start: 01-02-2025 Erythropoietin (EPO) [Units/volume] in Serum or Plasma [facility] Start: 01-02-2025 Ferritin [Mass/volum e] in Serum or Plasma [facility] Start: 01-02-2025 Gamma glutamyl trans ferase measurement [facility] Start: 01-02-2025 Helicobacter pylori [Presence] in Stomach by urea breath test [facility] Start: 01-02-2025 Iron and Iron bindin g capacity panel - Serum or Plasma [facility] Start: 01-02-2025 Lactate dehydrogenas e measurement [facility] Start: 01-02-2025 Magnesium measurement [facility] Start: 01-02-2025 Partial thromboplast in time, activated [facility] Start: 01-02-2025 Prothrombin time [facility] Start: 01-02-2025 Reticulocyte count [facility] Start: 01-02-2025 Serum inorganic phos phate measurement [facility] Start: 01-02-2025 Vitamin B12 measurement [facility] Start: 01-02-[address] [facility] Start: 11-27-2024 Patient discharge [facility] Start: 11-25-2024 Following clinical p athway protocol [facility] Start: 11-25-2024 Assessment of risk o f venous thromboembolism [facility] Start: 11-25-2024 Cardiac monitoring [facility] Start: 11-25-2024 Catheterization of vein [facility] Start: 11-25-[address] [facility] Start: 11-25-2024 Elevation of head of bed [facility] Start: 11-25-[address] [facility] Start: 11-25-2024 Inhalation therapy procedure [facility] Start: 11-25-2024 Insertion of cathete r into peripheral vein [facility] Start: 11-25-2024 Introduction of urin dede catheter [facility] Start: 11-25-2024 Measuring intake and output [facility] Start: 11-25-2024 Notification of physician [facility] Start: 11-25-2024 Oxygen therapy [facility] Start: 11-25-2024 Patient referral to dietitian [facility] Start: 11-25-2024 Providing care accor ding to standard [facility] Start: 11-25-2024 Provision of activit y privileges [facility] Start: 11-25-2024 Referral to occupati onal therapist [facility] Start: 11-25-2024 Referral to service [facility] Start: 11-25-2024 Speech therapy assessment [facility] Start: 11-25-2024 Telemedicine consult ation with patient [facility] Start: 11-25-2024 Tobacco use cessatio n education [facility] Start: 11-25-2024 End: 11-25-2024 [facility] Start: 11-25-2024 Hospital admission, emergency, from emergency room, medical nature [facility] Start: 11-25-2024 Admission procedure [facility] Start: 11-25-2024 Oxygen therapy [facility] Start: 11-25-2024 End: 11-25-2024 [facility] Start: 11-24-2024 End: 11-24-2024 Patient encounter procedure 11/24/2024 10:00 AM EDT Office Visit Pulmonary Medicine [address] [place] [address] Namrata Fernandes APRN.[facility] [address] [place] [address] 6 month follow up Pulmonary Medicine Comment on above: 6 month follow up Start: 11-08-2024 BP Controlled (<130/80) BP Con trolled (<130/80) [facility] Start: 09-04-2024 DIABETES SCREEN DIABETES SCREEN [facility] Start: 05-26-2024 End: 05-26-2024 Patient encounter procedure 05/26/2024 2:15 PM EST Office Visit Pulmonary Medicine [address] [place] [address] Genie Bustamante MD [address] [place], [place] [phone] 6 month f/u Pulmonary Medicine Comment on above: 6 month f/u Start: 04-28-2024 DIABETES SCREEN DIABETES SCREEN [facility] Start: 04-19-2024 BP Controlled (<130/80) BP Con trolled (<130/80) [facility] Start: 03-09-2024 Annual PCP Team [facility] santy Disease Visit Annual PCP Team Chronic Disease Visit [facility] Start: 03-09-2024 BP Controlled (<130/80) BP Con trolled (<130/80) [facility] Start: 02-23-2024 End: 02-23-2024 Patient encounter procedure 02/23/2024 1:30 PM EDT Office Visit Pulmonary Medicine [address] [place], [place] [phone] Becky Fierro PABerryC [address] [place], [place] [phone] Asthma/ post covid Pulmonary Medicine Comment on above: Asthma/ post covid Start: 01-30-2024 Covid-19 Vaccine ( season) Covid-19 Vaccine ( season) [facility] Start: 01-30-2024 Influenza vaccination Influenza Vacc ine (#1) [facility] Start: 01-29-2024 End: 02-12-2024 COVID & INFLUENZA A/B & RSV PCR, ROUTINE COVID & INFLUENZA A/B & RSV PCR, ROUTINE Microbiology Routine URI, acute Expected: 01/29/2024, Expires: 02/12/2024 [facility] Work Phone: Comment on above: Expected: 01/29/2024 , Expires: 02/12/2024 Start: 01-22-2024 BP CONTROLLED (<130/80) BP CON TROLLED (<130/80) [facility] Start: 01-05-2024 ANNUAL PCP TEAM IN MOLD COATER SANTY DISEASE VISIT ANNUAL PCP TEAM CHRONIC DISEASE VISIT [facility] Start: 12-11-2023 BP CONTROLLED (<130/80) BP CON TROLLED (<130/80) [facility] Start: 09-09-2023 ANNUAL PCP TEAM IN MOLD COATER SANTY DISEASE VISIT ANNUAL PCP TEAM CHRONIC DISEASE VISIT [facility] Start: 09-09-2023 BP CONTROLLED (<130/80) BP CON TROLLED (<130/80) [facility] Start: 09-08-2023 End: 11-08-2023 CBC W Auto Differential panel - Blood CBC + DIFF Lab Routine Essential hypertension, benign Low platelet count (HCC) Expected: 09/08/2023 (Approximate), Expires: 11/08/2023 [facility] Work Phone: Comment on above: Expected: 09/08/2023 (Approximate), Expires: 11/08/2023 Start: 09-08-2023 End: 11-08-2023 Comprehensive metabolic 2000 panel - Serum or Plasma COMP METABOLIC PANEL Lab Routine Essential hypertension, benign Expected: 09/08/2023 (Approximate), Expires: 11/08/2023 [facility] Work Phone: Comment on above: Expected: 09/08/2023 (Approximate), Expires: 11/08/2023 Start: 09-08-2023 End: 11-08-2023 Lipid 1996 panel - Serum or Plasma LIPID PANEL BASIC Lab Routine Essential hypertension, benign Expected: 09/08/2023 (Approximate), Expires: 11/08/2023 [facility] Work Phone: Comment on above: Expected: 09/08/2023 (Approximate), Expires: 11/08/2023 Start: 08-20-2023 BP CONTROLLED (<130/80) BP CON TROLLED (<130/80) [facility] Start: 08-15-[address] [facility] Start: 07-09-2023 BP CONTROLLED (<130/80) BP CON TROLLED (<130/80) [facility] Start: 05-31-2023 Advance Directive Discussion Advance Directive Discussion [facility] Start: 05-13-2023 ANNUAL PCP TEAM IN MOLD COATER SANTY DISEASE VISIT ANNUAL PCP TEAM CHRONIC DISEASE VISIT [facility] Start: 05-13-2023 BP CONTROLLED (<130/80) BP CON TROLLED (<130/80) [facility] Start: 05-10-2023 BP CONTROLLED (<130/80) BP CON TROLLED (<130/80) [facility] Start: 04-29-2023 ANNUAL PCP TEAM IN MOLD COATER SANTY DISEASE VISIT ANNUAL PCP TEAM CHRONIC DISEASE VISIT [facility] Start: 04-10-2023 BP CONTROLLED (<130/80) BP CON TROLLED (<130/80) [facility] Start: 03-11-2023 ANNUAL PCP TEAM IN MOLD COATER SANTY DISEASE VISIT ANNUAL PCP TEAM CHRONIC DISEASE VISIT [facility] Start: 03-11-2023 BP CONTROLLED (<130/80) BP CON TROLLED (<130/80) [facility] Start: 02-23-2023 ANNUAL PCP TEAM IN MOLD COATER SANTY DISEASE VISIT ANNUAL PCP TEAM CHRONIC DISEASE VISIT [facility] Start: 02-23-2023 BP CONTROLLED (<130/80) BP CON TROLLED (<130/80) [facility] Start: 02-15-2023 BP CONTROLLED (<130/80) BP CON TROLLED (<130/80) [facility] Start: 02-06-2023 ANNUAL PCP TEAM IN MOLD COATER SANTY DISEASE VISIT ANNUAL PCP TEAM CHRONIC DISEASE VISIT [facility] Start: 02-06-2023 BP CONTROLLED (<130/80) BP CON TROLLED (<130/80) [facility] Start: 01-29-2023 Influenza vaccination INFLUENZA (#1) [facility] Start: 12-03-2022 BP CONTROLLED (<130/80) BP CON TROLLED (<130/80) [facility] Start: 09-08-2022 End: 11-08-2022 Comprehensive metabolic 2000 panel - Serum or Plasma [facility] Work Phone: Comment on above: Expected: 09/08/2022 (Approximate), Expires: 11/08/2022 Start: 09-08-2022 End: 11-08-2022 Hemoglobin A1c in Blood [facility] Work Phone: Comment on above: Expected: 09/08/2022 , Expires: 11/08/2022 Start: 09-08-2022 End: 11-08-2022 PSA/PROSTSPECAG SCRN [facility] Work Phone: Comment on above: Expected: 09/08/2022 , Expires: 11/08/2022 Start: 09-03-2022 ANNUAL PCP TEAM IN MOLD COATER SANTY DISEASE VISIT ANNUAL PCP TEAM CHRONIC DISEASE VISIT [facility] Start: 09-03-2022 BP CONTROLLED (<130/80) BP CON TROLLED (<130/80) [facility] Start: 08-27-2022 BP CONTROLLED (<130/80) BP CON TROLLED (<130/80) [facility] Start: 07-14-2022 COVID-19 VACCINE (6 - Pfizer series) COVID-19 VACCINE (6 - Pfizer series) [facility] Start: 05-31-2022 ADVANCE DIRECTIVE DISCUSSION ADVANCE DIRECTIVE DISCUSSION [facility] Start: 05-13-2022 End: 07-13-2022 Natriuretic peptide.B prohormone N-Terminal [Mass/volume] in Serum or Plasma [facility] Work Phone: Comment on above: Expected: 05/13/2022 , Expires: 07/13/2022 Start: 05-10-2022 End: 05-24-2022 Influenza virus A and B RNA and SARS-CoV-2 (COVID-19) N gene panel - Respiratory specimen by GRACE with probe detection COVID WITH FLUA+B, ROUTINE Microbiology Routine Viral illness Expected: 05/10/2022, Expires: 05/24/2022 [facility] Work Phone: Comment on above: Expected: 05/10/2022 , Expires: 05/24/2022 Start: 05-05-2022 ANNUAL PCP TEAM IN MOLD COATER SANTY DISEASE VISIT ANNUAL PCP TEAM CHRONIC DISEASE VISIT [facility] Start: 04-10-2022 End: 06-10-2022 ALGN [facility] Work Phone: Comment on above: Expected: 04/10/2022 , Expires: 06/10/2022 Start: 04-10-2022 End: 06-10-2022 IgE [Units/volume] in Serum or Plasma [facility] Work Phone: Comment on above: Expected: 04/10/2022 , Expires: 06/10/2022 Start: 02-23-2022 End: 04-25-2022 CBC W Auto Differential panel - Blood [facility] Work Phone: Comment on above: Expected: 02/23/2022 , Expires: 04/25/2022 Start: 02-23-2022 End: 04-25-2022 Comprehensive metabolic 2000 panel - Serum or Plasma [facility] Work Phone: Comment on above: Expected: 02/23/2022 , Expires: 04/25/2022 Start: 02-23-2022 End: 04-25-2022 Fibrin D-dimer FEU [Mass/volume] in Platelet poor plasma [facility] Work Phone: Comment on above: Expected: 02/23/2022 , Expires: 04/25/2022 Start: 02-15-2022 End: 03-01-2022 Influenza virus A and B RNA and SARS-CoV-2 (COVID-19) N gene panel - Respiratory specimen by GRACE with probe detection COVID WITH FLUA+B, ROUTINE Microbiology Routine At increased risk of exposure to COVID-19 virus Expected: 02/15/2022, Expires: 03/01/2022 [facility] Work Phone: Comment on above: Expected: 02/15/2022 , Expires: 03/01/2022 Start: 01-29-2022 Influenza vaccination INFLUENZA (#1) [facility] Start: 10-24-2021 COVID-19 VACCINE (5 - Booster for Pfizer series) COVID-19 VACCINE (5 - Booster for Pfizer series) [facility] Start: 09-03-2021 End: 11-03-2021 Hepatitis C virus Ab [Presence] in Serum HEP C AB IA W/CONF SCRN Lab Routine Encounter for hepatitis C screening test for low risk patient Expected: 09/03/2021 (Approximate), Expires: 11/03/2021 [facility] Work Phone: Comment on above: Expected: 09/03/2021 (Approximate), Expires: 11/03/2021 Start: 09-03-2021 End: 11-03-2021 Prostate specific Ag [Mass/volume] in Serum or Plasma PSA/PROSTSPECAG DIAG Lab Routine Benign non-nodular prostatic hyperplasia with lower urinary tract symptoms Expected: 09/03/2021 (Approximate), Expires: 11/03/2021 [facility] Work Phone: Comment on above: Expected: 09/03/2021 (Approximate), Expires: 11/03/2021 Start: 05-31-2021 ADVANCE DIRECTIVE DISCUSSION ADVANCE DIRECTIVE DISCUSSION [facility] Start: 2004 RSV Vaccine (1 - 1-d ose 60+ series) RSV Vaccine (1 - 1-dose 60+ series) [facility] Start: 01-13-1962 BP CONTROLLED (<130/80) BP CON TROLLED (<130/80) [facility] Start: [birth year]-13-1963 HEPATITIS C SCREENING HEPATITIS C HODA MILES [facility] Alanine aminotransfe rase [Enzymatic activity/volume] in Serum or Plasma [facility] Albumin [Mass/volume ] in Serum or Plasma [facility] Alkaline phosphatase [Enzymatic activity/volume] in Serum or Plasma [facility] Anion gap in Serum o r Plasma [facility] Bilirubin, total measurement [facility] BUN/Creatinine ratio [facility] Calcium [Mass/volume ] in Serum or Plasma [facility] Carbon dioxide, tota l [Moles/volume] in Central venous blood [facility] Creatinine [Mass/vol ume] in Serum or Plasma [facility] CT Abdomen [facility] End: 12-11-2023 Echocardiography ECHO Cardiology Routine SOB (shortness of breath) 1 Occurrences starting 12/10/2022 until 12/11/2023 [facility] Work Phone: Comment on above: 1 Occurrences starti ng 12/10/2022 until 12/11/2023 Erythrocyte mean corpuscular volume determination [facility] Folate [Moles/volume ] in Serum or Plasma [facility] Glucose [Mass/volume ] in Serum or Plasma [facility] Hematocrit [Volume Fraction] of Blood [facility] Hemoglobin [Mass/vol ume] in Blood [facility] Hepatitis B surface antigen measurement [facility] Hepatitis B virus co re Ab [Presence] in Serum [facility] Hepatitis B virus vasquez rface Ab [Units/volume] in Serum by Radioimmunoassay (YADIRA) [facility] Hepatitis C virus Ab [Presence] in Serum HEP C AB IA W/CONF SCRN Lab Routine Encounter for hepatitis C screening test for low risk patient 09/04/2021 10:32 AM EDT [facility] Work Phone: Influenza virus A an d B RNA and SARS-CoV-2 (COVID-19) N gene panel - Respiratory specimen by GRACE with probe detection COVID WITH FLUA+B, ROUTINE Microbiology Routine Acute cough Ordered: 02/06/2022 [facility] Work Phone: Comment on above: Ordered: 02/06/2022 INR in Blood by Coagulation assay [facility] Iron [Mass/mass] in Unspecified specimen [facility] Iron saturation [Mas s Fraction] in Serum or Plasma [facility] Leukocytes [#/volume ] in Blood [facility] End: 03-29-2023 LUNG VOLUMES LUNG VOLUMES PFT Routine SOB (shortness of breath) 1 Occurrences starting 02/27/2022 until 03/29/2023 [facility] Work Phone: Comment on above: 1 Occurrences starti ng 02/27/2022 until 03/29/2023 Mean corpuscular hemoglobin concentration determination [facility] Mean corpuscular hemoglobin determination [facility] Measurement of renal function [facility] Neutrophil count [facility] Neutrophil percent differential count [facility] End: 03-29-2023 NITRIC OXIDE, EXHALED NITRIC OXIDE, EXHALED PFT Routine SOB (shortness of breath) 1 Occurrences starting 02/27/2022 until 03/29/2023 [facility] Work Phone: Comment on above: 1 Occurrences starti ng 02/27/2022 until 03/29/2023 Patient Education ED BPV Vertigo [facility] Work Phone: Patient referral [facility] Work Phone: Platelets [#/volume] in Blood [facility] Potassium measurement [facility] Prostate specific Ag [Mass/volume] in Serum or Plasma PSA/PROSTSPECAG DIAG Lab Routine Benign non-nodular prostatic hyperplasia with lower urinary tract symptoms 09/04/2021 10:32 AM EDT [facility] Work Phone: End: 06-09-2023 Radiologic exam chest 2 views XR CHEST 2V FRONTAL/LAT Radiology STAT Acute cough 1 Occurrences starting 05/10/2022 until 06/09/2023 [facility] Work Phone: Comment on above: 1 Occurrences starti ng 05/10/2022 until 06/09/2023 End: 06-12-2023 Radiologic exam chest 2 views XR CHEST 2V FRONTAL/LAT Radiology Routine SOB (shortness of breath) Acute cough 1 Occurrences starting 05/13/2022 until 06/12/2023 [facility] Work Phone: Comment on above: 1 Occurrences starti ng 05/13/2022 until 06/12/2023 Red blood cell count [facility] Red cell distributio n width determination [facility] Serum chloride measurement [facility] Sodium measurement [facility] End: 03-29-2023 SPIROMETRY WITH DILATOR IF OBSTRUCTED SPIROMETRY WITH DILATOR IF OBSTRUCTED PFT Routine SOB (shortness of breath) 1 Occurrences starting 02/27/2022 until 03/29/2023 [facility] Work Phone: Comment on above: 1 Occurrences starti ng 02/27/2022 until 03/29/2023 SPIROMETRY WITH DILA TOR IF OBSTRUCTED SPIROMETRY WITH DILATOR IF OBSTRUCTED PFT Routine SOB (shortness of breath) 03/11/2022 8:53 AM EDT [facility] Work Phone: Total iron binding capacity measurement [facility] Total protein measurement [facility] Troponin T.cardiac [Mass/volume] in Serum or Plasma by High sensitivity method [facility] Troponin T.cardiac [Mass/volume] in Serum or Plasma by High sensitivity method [facility] Urea nitrogen [Mass/volume] in Serum or Plasma [facility] End: 03-24-2025 XR Chest PA and Lateral XR CHEST 2V FRONTAL/LAT Radiology Routine Subacute cough 1 Occurrences starting 02/23/2024 until 03/24/2025 [facility] Work Phone: Comment on above: 1 Occurrences starti ng 02/23/2024 until 03/24/2025 XR Chest PA and Lateral XR CHEST 2V FRONTAL/LAT Radiology Routine Acute cough 02/23/2024 1:53 PM EDT [facility] Immunizations Immunization Date Immunization Notes Care Provider Sarah disla 09-08-2024 Pfizer Covid-19 (Comirnaty) Dr. Tre García MD Work Phone: [facility] 03-21-2024 influenza, injectabl e, quadrivalent, preservative free Dr. Tre García MD Work Phone: [facility] 02-10-2023 influenza (HD-IIV4) vaccine, age 65+ yr, high dose, quadrivalent, PF (FLUZONE HIGH-DOSE) Jd Solis MD Work Phone: [facility] 02-10-2023 respiratory syncytia l virus (RSV) vaccine, adjuvanted (AREXVY) Jd Solis MD Work Phone: [facility] 02-10-2023 influenza virus vacc ine, unspecified formulation Fer PORTER Work Phone: [facility] 03-13-2022 COVID-19 booster vaccine, age 12+ yr, bivalent (PFIZER-BIONTECH) Genie Bustamante MD Work Phone: [facility] 03-13-2022 influenza (HD-IIV4) vaccine, age 65+ yr, high dose, quadrivalent, PF (FLUZONE HIGH-DOSE) Jd Solis MD Work Phone: [facility] 03-13-2022 influenza, high dose seasonal, preservative-free Genie Bustamante MD Work Phone: [facility] 02-18-2021 influenza, high-dose , quadrivalent vaccine (FLUZONE HIGH DOSE QUADRIVALENT) Berkley Roque APRN.CNP Work Phone: [facility] 08-16-2020 COVID-19 vaccine, ag e 12+ yr (PFIZER-BIONTECH - PURPLE TOP) Berkley Rajguru CORN DETASSELER.POWER BRAKE OPERATOR Work Phone: [facility] Work Phone: 07-26-2020 COVID-19 vaccine, ag e 12+ yr (PFIZER-BIONTECH - PURPLE TOP) Berkley Rajguru CORN DETASSELER.POWER BRAKE OPERATOR Work Phone: [facility] Work Phone: 01-22-2020 influenza, high dose seasonal, preservative-free Berkley Rajguru CORN DETASSELER.POWER BRAKE OPERATOR Work Phone: [facility] 02-28-2019 influenza, high dose seasonal, preservative-free Berkley Rajguru CORN DETASSELER.POWER BRAKE OPERATOR Work Phone: [facility] 12-29-2018 zoster vaccine recombinant Berkley Rajguru CORN DETASSELER.POWER BRAKE OPERATOR Work Phone: [facility] 10-28-2018 zoster vaccine recombinant Berkley Rajguru CORN DETASSELER.POWER BRAKE OPERATOR Work Phone: [facility] 03-02-2018 influenza, high dose seasonal, preservative-free Berkley Rajguru CORN DETASSELER.POWER BRAKE OPERATOR Work Phone: [facility] 02-09-2017 influenza, high dose seasonal, preservative-free Berkley Rajguru CORN DETASSELER.POWER BRAKE OPERATOR Work Phone: [facility] 10-01-2016 tetanus and diphther ia toxoids, adsorbed, preservative free, for adult use (5 Lf of tetanus toxoid and 2 Lf of diphtheria toxoid) Berkley Rajguru CORN DETASSELER.POWER BRAKE OPERATOR Work Phone: [facility] 03-17-2016 influenza, high dose seasonal, preservative-free Berkley Rajguru CORN DETASSELER.POWER BRAKE OPERATOR Work Phone: [facility] 06-25-2015 pneumococcal polysaccharide vaccine, 23 valent Berkley Rajguru CORN DETASSELER.POWER BRAKE OPERATOR Work Phone: [facility] 06-12-2014 pneumococcal conjuga te vaccine, 13 valent Berkley Rajguru CORN DETASSELER.POWER BRAKE OPERATOR Work Phone: [facility] 02-27-2014 influenza, seasonal, injectable Berkley Rajguru CORN DETASSELER.[facility] Work Phone: [facility] 04-20-2013 pneumococcal polysaccharide vaccine, 23 valent Berkley Rajguru CORN DETASSELER.[facility] Work Phone: [facility] 04-20-2013 pneumococcal vaccine , unspecified formulation [facility] 02-28-2013 Influenza virus vaccine [facility] 03-14-2010 influenza virus vacc ine, unspecified formulation Berkley Rajguru CORN DETASSELER.[facility] Work Phone: [facility] Work Phone: 04-03-2008 influenza virus vacc ine, unspecified formulation Berkley Rajguru CORN DETASSELER.[facility] Work Phone: [facility] Work Phone: 04-03-2008 pneumococcal polysaccharide vaccine, 23 valent Berkley Rajguru CORN DETASSELER.[facility] Work Phone: [facility] Work Phone: 08-05-2006 tetanus toxoid, redu gentry diphtheria toxoid, and acellular pertussis vaccine, adsorbed Berkley Rajguru CORN DETASSELER.[facility] Work Phone: [facility] Work Phone: 11-02-1996 diphtheria and tetan us toxoids, adsorbed for pediatric use Berkley Rajguru CORN DETASSELER.[facility] Work Phone: [facility] Work Phone: Payers Date Payer Category Payer Self-pay [id number] 2021 Medicare AETNA MEDICARE A ETNA MEDICARE PPO [id number] 2021-Present [phone] [address] [place] [address] PPO [id number] 2021 Medicare AETNA MEDICARE A ETNA MEDICARE PPO [id number] 2021-Present [phone] [address] [place] [address] PPO [id number] 2012 Private Health Insurance 101 [id number] Unknown [id number] 2.16.840.1.603269.3.579.2.4 62 Unknown [id number] 2.16.840.1.246279.3.579.2.4 62 Unknown [id number] 2.16.840.1.099287.3.579.2.4 62 Unknown [id number] 2.16.840.1.279998.3.579.2.4 62 Unknown [id number] 2.16.840.1.955253.3.579.2.4 62 Unknown [id number] 2.16.840.1.877510.3.579.2.4 62 Unknown [id number] 2.16.840.1.708654.3.579.2.4 62 Unknown [id number] 2.16.840.1.689691.3.579.2.4 62 Unknown [id number] 2.16.840.1.137427.3.579.2.4 62 Unknown [id number] 2.16.840.1.858690.3.579.2.4 62 Unknown [id number] 2.16.840.1.090731.3.579.2.4 62 Unknown [id number] 2.16.840.1.505234.3.579.2.4 62 Unknown [id number] 2.16.840.1.933974.3.579.2.4 62 Unknown [id number] 2.16.840.1.269593.3.579.2.4 62 Unknown [id number] 2.16.840.1.225853.3.579.2.4 62 Unknown [id number] 2.16.840.1.058719.3.579.2.4 62 Unknown [id number] 2.16.840.1.898452.3.579.2.4 62 Unknown [id number] 2.16.840.1.496258.3.579.2.4 62 Unknown [id number] 2.16.840.1.695408.3.579.2.4 62 Unknown [id number] 2.16.840.1.630424.3.579.2.4 62 Unknown [id number] 2.16.840.1.085380.3.579.2.4 62 Unknown [id number] 2.16.840.1.699619.3.579.2.4 62 Unknown [id number] 2.16.840.1.517661.3.579.2.4 62 Unknown [id number] 2.16.840.1.587910.3.579.2.4 62 Unknown [id number] 2.16.840.1.357334.3.579.2.4 62 Unknown [id number] 2.16.840.1.174265.3.579.2.4 62 Unknown [id number] 2.16.840.1.041736.3.579.2.4 62 Unknown [id number] 2.16.840.1.923835.3.579.2.4 62 Unknown [id number] 2.16.840.1.190187.3.579.2.4 62 Unknown [id number] 2.16.840.1.462066.3.579.2.4 62 Unknown [id number] 2.16.840.1.957903.3.579.2.4 62 Unknown [id number] 2.16.840.1.213849.3.579.2.4 62 Unknown [id number] 2.16.840.1.006185.3.579.2.4 62 Unknown [id number] 2.16.840.1.554762.3.579.2.4 62 Unknown [id number] 2.16.840.1.694297.3.579.2.4 62 Social History Date Type Detail Facility Start: 02-06-2022 Tobacco smoking status NHIS Never smoked tobacco [facility] Work Phone: Start: 08-27-2021 End: 05-26-2024 Alcohol intake Current non-drinker of alcohol (finding) [facility] Start: 05-29-2020 End: 05-12-2022 History SDOH Alcohol Frequency 1 [facility] Start: 05-29-2020 History SDOH Alcohol Std Drinks 98 [facility] Start: 05-29-2020 End: 05-12-2022 History SDOH Social Connections Phone 5 [facility] Start: 05-29-2020 End: 05-12-2022 History SDOH Social Connections Latter-Day 2 [facility] Start: 05-29-2020 End: 05-12-2022 History SDOH Social Connections Living 3 [facility] Start: 05-29-2020 History SDOH Physical Activity DPW 6 [facility] Start: 05-29-2020 Education 18 [facility] Start: 05-11-2014 End: 02-06-2022 Tobacco Comment Non smoking childhood home. [facility] Start: 1945 Sex Assigned At Male [facility] Start: 08-17-2021 End: 05-03-2022 Exposure to SARS-CoV-2 (event) Not sure [facility] Start: 02-06-2022 Tobacco use and exposure Smokeless tobacco non-user [facility] Start: 05-12-2022 History SDOH Alcohol Std Drinks 0 [facility] Start: 05-11-2022 End: 12-10-2022 History of Social function [facility] Start: 05-11-2022 End: 12-10-2022 Social connection and isolation panel [facility] Do you belong to any clubs or organizations such as mandaen groups, unions, fraternal or athletic groups, or school groups? Yes [facility] Are you now , , , , never or living with a partner? [facility] How often to you hav e a drink containing alcohol? Never [facility] How many standard dr inks containing alcohol do you have on a typical day? Patient does not drink [facility] Do you feel stress - tense, restless, nervous, or anxious, or unable to sleep at night because your mind is troubled all the time - these days [OSQ] Only a little [facility] (I/We) worried thomas er (my/our) food would run out before (I/we) got money to buy more. Never true [facility] In the past 12 month s, was there a time when you were not able to pay the mortgage or rent on time? No [facility] Start: 05-12-2019 Gender identity Identifies as male gender (finding) [facility] Start: 01-23-2020 Sexual orientation Heterosexual (finding) [facility] Start: 06-14-2021 End: 08-15-2023 Tobacco smoking status NHIS Unknown if ever smoked [facility] Start: 04-19-2013 None [facility] Start: 04-19-2013 Spouse/ Significant Other [facility] Start: 04-19-2013 Non-smoker [facility] Do you feel stress - tense, restless, nervous, or anxious, or unable to sleep at night because your mind is troubled all the time - these days [OSQ] Very much [facility] Start: 05-29-2024 End: 01-25-2025 Tobacco smoking status NHIS Ex-smoker (finding) [facility] Start: 08-23-2024 End: 09-25-2024 Sex Male (finding) [facility] Goals Date Patient Goal Desired Activity /State Functional Status Date Assessment Result Facility 11-27-2024 Functional status Ambulates;Up ad steffen [facility] Work Phone: Mental Status Date Assessment Result Facility 11-27-2024 Cognitive function Voice/Name [facility] Work Phone: 11-25-2024 Cognitive function Voice/Name [place] [facility] Work Phone: 08-15-2023 Cognitive function Level Of Cons ciousness Awake;Alert;Appropriate;Follow s Commands [facility] Work Phone: Clinical Notes 02-12-2016 to 01-31-2025 Note Date & Type Note Facility 01-31-2025 Progress note [facility] 01-31-2025 Progress note Note Date/Time January 31, 2025 4:27pm [facility] [place] [address] OFFICE VISIT Date of Service: 01/31/25 1522 MR#: [id number] Acct: [id number] Name: VALENTINA CABRERA Rep #: [id number] : 1945 From: Andres Schneider MD Age/Sex: 80/M Location[place] [facility] [place]: Signed HPI Subjective Date of Service 01/31/25 Chief Complaint F/u for Thrombocytopenina. History of Present Illness 80-year-old man was found to have mild thrombocytopenia and referred for further evaluation. He feels well, denies gum bleeding, hematuria, gets some bruises on the arms. Had blood work and comes for follow up. [facility] Medical History History of fall Laceration of knee, left Easy bruising Thrombocytopenia Elevated troponin COPD (chronic obstructive pulmonary disease) Former tobacco use Obesity CKD (chronic kidney disease), stage II Allergic rhinitis Anxiety and depression Constipation Chronic low back pain BPH (benign prostatic hyperplasia) Hyperlipidemia Asthma COVID-19 Hypertension GERD (gastroesophageal reflux disease) Surgical History Hx of tonsillectomy Hx of cataract extraction Family History Mother Depression CVA (cerebral vascular accident) Anxiety Hypertension Father Pancreatic cancer Social History household members: spouse Smoking Status: Former smoker how long ago did patient quit smoking: Quit 1974, smoked cigars only. alcohol intake: never substance use type: does not use Intake Vital Signs 01/02/25 15:08 01/31/25 15:23 Height 5 ft 8 in 5 ft 8 in Weight: 89.811 kg BMI 30.1 BP 111/70 Blood Pressure Location Rt brachial Position Sitting Respiration 18 Pulse 86 Pulse Source Monitor Temp 98 F Temperature Source Temporal Artery Pulse Oximetry (%) 96 Oxygen Delivery Method room air Intake Accompanied by: Self Is patient in pain?: No Allergies No Known Allergies Allergy (Verified 01/31/25 15:34) Medications ?Medication ?Instructions ?Recorded ?Confirmed ?Type lisinopril 5 mg tablet 5 mg PO DAILY 08/28/2001/31 History tamsulosin 0.4 mg capsule 0.4 mg PO QHS 06/16/2101/31 History montelukast 10 mg tablet 10 mg PO DAILY 05/06/2308/22 History nortriptyline 50 mg capsule 50 mg PO BID 06/02/2308/22 History omeprazole 10 mg capsule,delayed 40 mg PO DAILY 01/31/25 History release budesonide 160 mcg-glycopyr 9 2 inh inhalation BID 01/31/25 History mcg-formot 4.8 mcg/actuation HFA inhaler (Breztri Aerosphere) cholecalciferol (vitamin D3) 25 25 mcg PO DAILY Not vasquez re 01/02/25 01/31/25 History mcg (1,000 unit) tablet (Vitamin D3) polyethylene glycol 3350 17 gram 17 g PO BID Constipat ion 01/02/25 01/31/25 History oral powder packet lactobacillus combination no.9 4 4,000 mmu cells PO QD AY 01/31/25 01/31/25 History billion cell capsule (Adult 50 Plus Probiotic) Have you fallen in the past year?: Yes Central Venous Access Central Venous Access: No Laboratory Tests 01/02/25 16:13 WBC 6.2 Hgb 14.9 Hct 44.2 Plt Count 117 L Absolute Neuts (auto) 3.1 Absolute Lymphs (auto) 2.74 PT 13.6 INR 1.0 APTT 27.3 Sodium 140 Potassium 4.6 Chloride 106 Carbon Dioxide 23.1 BUN 22 H Creatinine 1.08 Glucose 96 Calcium 9.4 Phosphorus 3.5 Magnesium 2.3 H Iron 131 TIBC 252 Iron Saturation 52.0 Unsaturated IBC 121 L Ferritin 424 H Total Bilirubin 0.54 GGT 15 AST 27 ALT 27 Alkaline Phosphatase 94 Lactate Dehydrogenase 217 C-React Prot Ext Range < 3.00 Total Protein 6.7 Albumin 4.4 Globulin 2.3 Vitamin B12 411 Coding Level of Care Code Off vis,est,level 3 Exam Problem Focused Diagnoses Thrombocytopenia D69.6 Assessment and Plan Assessment and Plan (1) Thrombocytopenia: Status: Chronic Comment: Discussed causes of thrombocytopenia and evaluation. Mild thrombocytopenia may occur with Aspirin, Omeprazole. H.Pylori is negative. PLT was 117-Mild. Plan: To stop Omeprazole for about 2 months. F/u in 2 months with repeat labs, Abd US to R/O splenomegaly, Flow cytometry. RTC 8weeks Plan Details Follow Up: 2 Months Clinical Quality Measures Falls Risk Screening/Assistive Devices Have you fallen in the past year?: Yes 01/31/25 1627 <Electronically signed by Andres Olmedo> Date _ Andres Schneider MD Cosigner Signature: Date (if applicable) CC: Dr. Tre García MD ~ [facility] Work Phone: 1(177) [phone] History and physical note Author Beba Ahumada [facility] Note Date/Time January 25, 2025 10 :09pm [facility] [address] [place] [address] H&P Exam - Wound Care 01/25/25 1200 MR#: [id number] Acct: [id number] Name: VALENTINA CABRERA Rep #:[id number] : 1945 80 From: Beba riggins MD PCP: Dr. Tre García MD Status:REG R CR Location: History of Present Illness Date of Service: 01/25/25 Chief Complaint: Left Forearm/Wrist and Left Knee Wound History of Wound: Mr. Cabrera is an 80-year-old referred to the wound center by his primary care physician following a recent wound. Fell off his driveway landing on his left side with subsequent injury to his left forearm/wrist and left knee. Has been using some dressings which he had at home. Was also seen by his primary care physician and started on antibiotics. He had a head CT which was negative for bleed. No tobacco use/abuse. No history of diabetes. Stays active. Feels well otherwise, no acute concerns reported. [facility] Medical History (Updated 01/25/25 @ 12:[address] Beba Ahumada MD) History of fall Laceration of knee, left Easy bruising Thrombocytopenia Elevated troponin COPD (chronic obstructive pulmonary disease) Former tobacco use Obesity CKD (chronic kidney disease), stage II Allergic rhinitis Anxiety and depression Constipation Chronic low back pain BPH (benign prostatic hyperplasia) Hyperlipidemia Asthma COVID-19 Hypertension GERD (gastroesophageal reflux disease) Home Medications ?Medication ?Instructions ?Recorded ?Last Taken ?Type lisinopril 5 mg tablet 5 mg PO DAILY 08/28/20 Unkno wn History tamsulosin 0.4 mg capsule 0.4 mg PO QHS 06/16/21 Unkno wn History montelukast 10 mg tablet 10 mg PO DAILY 05/06/23 Unkn own History nortriptyline 50 mg capsule 50 mg PO BID 06/02/23 Unkn own History omeprazole 10 mg capsule,delayed 40 mg PO DAILY Unknown History release budesonide 160 mcg-glycopyr 9 2 inh inhalation BID Unknown History mcg-formot 4.8 mcg/actuation HFA inhaler (Breztri Aerosphere) azithromycin 250 mg tablet 250 mg PO DAILY Guard again st 01/02/25 Unknown History infection COPD cholecalciferol (vitamin D3) 25 25 mcg PO DAILY Not vasquez re 01/02/25 Unknown History mcg (1,000 unit) tablet (Vitamin D3) polyethylene glycol 3350 17 gram 17 g PO BID Constipat ion 01/02/25 Unknown History oral powder packet cephalexin 500 mg capsule 500 mg PO 4X/DAY 01/25/25 Un known History doxycycline hyclate 100 mg tablet 100 mg PO BID Unknown History Allergy/AdvReac Type Severity Reaction Status Date / Time No Known Allergies Allergy Verified 01/25/25 10:30 Family History Mother Depression CVA (cerebral vascular accident) Anxiety Hypertension Father Pancreatic cancer Surgical History Hx of tonsillectomy Hx of cataract extraction Social History household members: spouse Smoking Status: Former smoker how long ago did patient quit smoking: Quit 1974, smoked cigars only. alcohol intake: never substance use type: does not use ROS Constitutional Constitutional: Denies daytime sleepiness, fever(s), headache(s), increased appetite, lethargy or malaise Eyes Eyes: Denies change in eye color, discharge from eye(s), discongugate gaze, double vision, erythema, excessive blinking, exophthalmos or foreign body ENT HEENT: Denies dizziness, foreign body in nose, halitosis, headache(s), hoarseness or loss taste/smell Cardiovascular Cardiovascular: Denies claudication, cyanosis, diaphoresis, dyspnea, dyspnea at rest, fatigue or orthopnea Respiratory/Chest Respiratory/Chest: Denies difficulty clearing secretions, dyspnea, dyspnea on exertion, excessive phlegm production, hemoptysis or hoarseness Gastrointestinal Gastrointestinal: Denies anorexia, bloating, chewing difficulty, coffee ground emesis, cramping, dry heaves or excessive flatus Genitourinary Genitourinary: Denies abdominal discomfort, anuria, contractions or flank pain Musculoskeletal Musculoskeletal: Denies difficulty walking, muscle spasms, muscle weakness or tremors Integumentary Integumentary: Reports wounds; Denies bleeding lesions, change in pigmentation, furuncle, hirsutism, jaundice or skin swelling Neurologic Neurologic: Denies abnormal movements, abnormal speech, behavior changes, confusion, focal weakness or lack of coordination Psychiatric Psychiatric: Denies auditory hallucinations, behavioral changes, confusion, hallucinations, hopelessness, tactile hallucinations or visual hallucinations Endocrine Endocrinology: Denies cold intolerance, deepening of the voice, excessive sweating, fatigue, flushing or heat intolerance Hematologic/Lymphatic Hematologic/Lymphatic: Reports easy bruising Allergic/Immunologic Allergic/Immunologic: Denies lip swelling, throat swelling, tongue swelling, hives, eczemia or wheezing Vital Signs Vital Signs Vital Signs: 01/25/25 10:36 Temperature 96.9 F L Temperature Source Temporal Pulse Rate 80 Respiratory Rate 18 Blood Pressure 141/85 H Blood Pressure Mean 103 Blood Pressure Source Monitor Blood Pressure Position Sitting Blood Pressure Location Right Arm Oxygen Delivery Method Room Air Physical Exam Const alert, oriented x3 and no apparent distress General Appearance: cooperative and comfortable HEENT normocephalic, head/scalp atraumatic and hearing grossly normal bilaterally Eyes EOMs intact bilaterally General Eye: normal appearance of both eyes Neck full ROM General: normal visual inspection Resp normal respiratory effort and normal air movement Effort and Inspection: able to speak in complete sentences Cardio regular rate, regular rhythm, S1 normal heart sound and S2 normal heart sound GI soft to palpation and non-tender Skin Wounds: wounds noted size Size: See clinical note, bed peeling and necrotic, margins well approximated, no odor and surrounding erythema Neuro CN's II-XII intact bilaterally, moves all extremities and no focal motor deficits Psych mental status grossly normal, thought process normal, cooperative and affect normal Debridement Note Debridement Note Wound debrided: Left forearm/wrist Type of Debridement: Excisional debridement Anesthesia Used: 5% Lidocaine Gel Depth: Down to and including healthy tissue and in the subcutaneous layer Percentage of wound debrided: 100 Instrument Used: 5mm curette, #15 blade and Forceps Tissue Removed: Devitalized tissue Severity: Fat Layer Exposed Amount of bleeding with debridement: Mild Bleeding Controlled with: Pressure Patient tolerated procedure: Patient tolerated procedure well Post-Debridement Measurements and Additional Note: Post-Debridement Measurements/Treatment - Nurse 1 - General Ulcer Assessment Start: 01/25/25 10:30 Freq: Status: Active Protocol: GILLIAN Activity Type Activity Date Activity User E-sign Co-sign Detail Recorded Client Recorded Date Recorded By Document 01/25/25 10:36 MERLYN [id number] 01/25/25 10:40 DS 01/25/25 10:36 - Today's Visit Information Type of service Initial Visit Arrival Mode Ambulatory Patient Identification Verified (Name & Yes ) Vital Signs Temperature (97.8 F-99.1 F) 96.9 F L Temperature Source Temporal Pulse Rate (60-100) 80 Pulse Location Monitor Respiratory Rate (12-18) 18 Respiratory rate source Observation Oxygen Delivery Method Room Air Blood Pressure (90/60-120/80) 141/85 H Blood Pressure Mean 103 Source Monitor Position Sitting Blood Pressure Location Right Arm Pain Scale: 0-10 Numeric Is Patient Pain Free? Yes Communication Assessment Preferred language [place] Distance Education Faculty Liaison Required No Able to Read Yes Able to Write Yes Communication Tools None Right Hearing Abillity Normal Left Hearing Abillity Normal Visual Assistive Devices Glasses Teaching Assessment Preferences Verbal Barriers to Learning None Readiness To Learn Excellent Willingness to Engage in Self Management High Activies Readiness to Engage in Self Management High Activities Anxiety Level Calm Cooperation Cooperative Perception Coherent Interest in Health Problem Asks Questions Education Importance Acknowledges Need Does Patient Smoke tobacco or other Yes substances Smoking Status Former smoker Is Patient Diabetic No Functional Assessment Recent Decline in Ability to Perform Denies Any Declines Culture/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/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 Specialist Cultural/Orthodox Needs that may affect No Treatment Plan Teaching: Wound Center *Welcome to the Wound Center -Person Taught Patient -Teaching Method Discussion -Response to teaching Verbalize Understanding WC - Nurse 1 - General Ulcer Measurement Start: 01/25/25 10:30 Freq: Status: Active Protocol: Activity Type Activity Date Activity User E-sign Co-sign Detail Recorded Client Recorded Date Recorded By Document 01/25/25 10:40 DS [id number] 01/25/25 10:54 DS 01/25/25 10:40 Wound Center Nurse 1 #5 left wrist -Current Size (cm) - Length 1.5 -Current Size (cm) - Width 0.7 -Current Size (cm) - Depth 0.1 -Total Square Cm 1.05 -Date of Last Picture (Recall this 01/25/25 field) -Photo Taken Yes -Tunneling No -Undermining/Tunneling No -Circular Undermining No -Wound Margin Distinct, Outline Attached -Granulation Amt Large (67-100%) -Granulation Quality [place] -Slough/Fibrin No -Texture (Edie-wound Skin Appearance) Assessed -Moisture (Edie-wound Skin Appearance) Assessed -Color (Edie-wound Skin Appearance) Assessed -Temperature (Edie-wound Skin No Abnormality Appearance) (Pt Warm) -Ulcer Cleansing Soap and Water -Foul Odor after Cleansing No -Anesthetic Used 5% Lidocaine Gel #4 left knee -Current Size (cm) - Length 2.5 -Current Size (cm) - Width 2.5 -Current Size (cm) - Depth 0.1 -Total Square Cm 6.25 -Date of Last Picture (Recall this 01/25/25 field) -Photo Taken Yes -Tunneling No -Undermining/Tunneling No -Circular Undermining No -Exudate Amt Small -Exudate Type Serosanguineous -Wound Margin Distinct, Outline Attached -Granulation Amt Large (67-100%) -Granulation Quality [place] -Slough/Fibrin No -Texture (Edie-wound Skin Appearance) Assessed -Moisture (Edie-wound Skin Appearance) Assessed -Color (Edie-wound Skin Appearance) Assessed -Temperature (Edie-wound Skin No Abnormality Appearance) (Pt Warm) -Tenderness on Palpation (Edie-wound No Skin Appearance) -Ulcer Cleansing Soap and Water -Anesthetic Used 5% Lidocaine Gel WC - Nurse 2 - General Ulcer CM Notes Start: 01/25/25 10:30 Freq: Status: Active Protocol: Activity Type Activity Date Activity User E-sign Co-sign Detail Recorded Client Recorded Date Recorded By Document 01/25/25 11:12 [id number] 01/25/25 11:17 01/25/25 11:12 Wound Center Nurse 2 #5 left wrist -Time 11:12 -Correct Patient Yes -Correct Side, Site, Position Yes -Correct Procedure Yes -Procedure Performed Yes -Type of Procedure Debridement -Clinical Debridement Subcutaneous -Tissue Removed Subcutaneous -Post Debridement (cm) - Length 1.8 -Post Debridement (cm) - Width 1.0 -Post Debridement (cm) - Depth 0.1 -Total Square (Post) (cm) 1.80 -Area of Debridement (cm) - Length 1.8 -Area of Debridement (cm) - Width 1.0 -Total Square (Area) (cm) 1.80 -Tunneling No -Undermining/Tunneling No -Circular Undermining No -Wound/Ulcer Outcome Not Healed -Ulcer Cleansing Rinsed/ Irrigated with Saline -Foul Odor after Cleansing No -Bioengineered Tissue No -Bleeding Controlled with Pressure -Treatment Response Procedure Tolerated Well -Offloading No -Debridement - Subq, 1st 20sq cm No #4 left knee -Time 11:12 -Correct Patient Yes -Correct Side, Site, Position Yes -Correct Procedure Yes -Procedure Performed Yes -Type of Procedure Debridement -Clinical Debridement Subcutaneous -Tissue Removed Subcutaneous -Post Debridement (cm) - Length 3.0 -Post Debridement (cm) - Width 2.7 -Post Debridement (cm) - Depth 0.1 -Total Square (Post) (cm) 8.10 -Area of Debridement (cm) - Length 3.0 -Area of Debridement (cm) - Width 2.7 -Total Square (Area) (cm) 8.10 -Tunneling No -Undermining/Tunneling No -Circular Undermining No -Wound/Ulcer Outcome Not Healed -Ulcer Cleansing Rinsed/ Irrigated with Saline -Foul Odor after Cleansing No -Bioengineered Tissue No -Bleeding Controlled with Pressure -Treatment Response Procedure Tolerated Well -Offloading No -Debridement - Subq, 1st 20sq cm Yes Pain Scale: 0-10 Numeric Is Patient Pain Free? Yes - Nurse 3 - General Ulcer D/C NN Start: 01/25/25 10:30 Freq: Status: Active Protocol: Activity Type Activity Date Activity User E-sign Co-sign Detail Recorded Client Recorded Date Recorded By Document 01/25/25 11:25 MT [id number] 01/25/25 11:27 MT Edit Result 01/25/25 11:25 MT (1) [id number] 01/25/25 11:28 MT (1) #5 left wrist - Silicone Border Foam 4x4 1 => 2 #4 left knee - Silicone Border Foam 4x4 1 => 2 01/25/25 11:25 Wound Care Center Nurse 3 #5 left wrist -Foul Odor after Cleansing No -Negative Pressure Wound Therapy N/A -Primary Dressing Applied Fibracol Plus 4x4,Silicone Border Foam 4x4 -Fibracol Plus 4x4 1 -Silicone Border Foam 4x4 2 #4 left knee -Primary Dressing Applied Silicone Border Foam 4x4 -Silicone Border Foam 4x4 2 Pain Scale: 0-10 Numeric Is Patient Pain Free? Yes WC - Visit Discharge Discharge Condition Stable Ambulatory Status Ambulatory Transportation Private Auto Medication Reconcilliation completed & No provided to patient/care provider Clinical Summary of Care Provided Yes Notes: THE PT VERBALIZED UNDERSTANDING OF NEW ORDERS. Additional Wound Wound debrided: Left knee Type of Debridement: Excisional debridement Anesthesia Used: 5% Lidocaine Gel Depth: Down to and including healthy tissue Percentage of wound debrided: 100 Instrument Used: 5mm curette Tissue Removed: Devitalized tissue Severity: Limited To Skin Breakdown Amount of bleeding with debridement: Mild Bleeding Controlled with: Pressure Patient tolerated procedure: Patient tolerated procedure well Charges/Coding Visit Charges Office Visits / Consults: [id number] OV L3 Est 20min Procedures Integumentary 111xxx-113xx: 23510 Angella subq tissue 20 sq cm/< Assessment/Plan Assessment/Plan (1) Laceration of left forearm: CODE(S): S51.812A - Laceration without foreign body of left forearm, initial encounter QUALIFIERS: Encounter type: initial encounter Qualified Code(s): S51.812A - Laceration without foreign body of left forearm, initial encounter (2) Laceration of knee, left: CODE(S): S81.012A - Laceration without foreign body, left knee, initial encounter QUALIFIERS: Encounter type: initial encounter Qualified Code(s): S81.012A - Laceration without foreign body, left knee, initial encounter (3) History of fall: CODE(S): Z91.81 - History of falling PLAN: Plan Debridement done as documented above, procedure was well-tolerated. No clinicalconcern for infection however as above, is currently on cephalexin and doxycycline prescribed by his primary care physician. Pain is improving. Started wound care with products he had at home. For now, will start on Fibracol to both areas daily. Cover with Adaptic and gauze/foam dressing. Change daily to twice daily depending on drainage. Elevate left lower extremityand upper extremity when seated. Adequate dietary/protein intake also recommended. His questions were answered and he was advised to let us know if he had any further questions or concerns. Follow- up in a week or sooner if needed. This note was generated with SNAPCARD dictation software. It may contain incorrectwords, spelling, and punctuation that were not noted in checking the note beforesigning. 01/25/252208 <Electronically signed by Beba Ahumada MD> Cosigner Signature (if applicable): CC: ~ Signed [facility] Work Phone: 1(355) 235-312808-28-2025 History and physical note [facility] [address] [place] [id number] H&P Exam - Wound Care 01/25/25 1200 MR#: [id number] Acct: [id number] Name: VALENTINA CABRERA Rep #:[id number] : 1945 80 From: Beba riggins MD PCP: Dr. Tre García MD Status:REG R CR Location: History of Present Illness Date of Service: 01/25/25 Chief Complaint: Left Forearm/Wrist and Left Knee Wound History of Wound: Mr. Cabrera is an 80-year-old referred to the wound center by his primary care physician following a recent wound. Fell off his driveway landing on his left side with subsequent injury to his left forearm/wrist and left knee. Has been using some dressings which he had at home. Was also seen by his primary care physician and started on antibiotics. He had a head CT which was negative for bleed. No tobacco use/abuse. No history of diabetes. Stays active. Feels well otherwise, no acute concerns reported. [facility] Medical History (Updated 01/25/25 @ 12:[address] Beba Ahumada MD) History of fall Laceration of knee, left Easy bruising Thrombocytopenia Elevated troponin COPD (chronic obstructive pulmonary disease) Former tobacco use Obesity CKD (chronic kidney disease), stage II Allergic rhinitis Anxiety and depression Constipation Chronic low back pain BPH (benign prostatic hyperplasia) Hyperlipidemia Asthma COVID-19 Hypertension GERD (gastroesophageal reflux disease) Home Medications ?Medication ?Instructions ?Recorded ?Last Taken ?Type lisinopril 5 mg tablet 5 mg PO DAILY 08/28/20 Unkno wn History tamsulosin 0.4 mg capsule 0.4 mg PO QHS 06/16/21 Unkno wn History montelukast 10 mg tablet 10 mg PO DAILY 05/06/23 Unkn own History nortriptyline 50 mg capsule 50 mg PO BID 06/02/23 Unkn own History omeprazole 10 mg capsule,delayed 40 mg PO DAILY Unknown History release budesonide 160 mcg-glycopyr 9 2 inh inhalation BID Unknown History mcg-formot 4.8 mcg/actuation HFA inhaler (Breztri Aerosphere) azithromycin 250 mg tablet 250 mg PO DAILY Guard again st 01/02/25 Unknown History infection COPD cholecalciferol (vitamin D3) 25 25 mcg PO DAILY Not vasquez re 01/02/25 Unknown History mcg (1,000 unit) tablet (Vitamin D3) polyethylene glycol 3350 17 gram 17 g PO BID Constipat ion 01/02/25 Unknown History oral powder packet cephalexin 500 mg capsule 500 mg PO 4X/DAY 01/25/25 Un known History doxycycline hyclate 100 mg tablet 100 mg PO BID Unknown History Allergy/AdvReac Type Severity Reaction Status Date / Time No Known Allergies Allergy Verified 01/25/25 10:30 Family History Mother Depression CVA (cerebral vascular accident) Anxiety Hypertension Father Pancreatic cancer Surgical History Hx of tonsillectomy Hx of cataract extraction Social History household members: spouse Smoking Status: Former smoker how long ago did patient quit smoking: Quit 1974, smoked cigars only. alcohol intake: never substance use type: does not use ROS Constitutional Constitutional: Denies daytime sleepiness, fever(s), headache(s), increased appetite, lethargy or malaise Eyes Eyes: Denies change in eye color, discharge from eye(s), discongugate gaze, double vision, erythema, excessive blinking, exophthalmos or foreign body ENT HEENT: Denies dizziness, foreign body in nose, halitosis, headache(s), hoarseness or loss taste/smell Cardiovascular Cardiovascular: Denies claudication, cyanosis, diaphoresis, dyspnea, dyspnea at rest, fatigue or orthopnea Respiratory/Chest Respiratory/Chest: Denies difficulty clearing secretions, dyspnea, dyspnea on exertion, excessive phlegm production, hemoptysis or hoarseness Gastrointestinal Gastrointestinal: Denies anorexia, bloating, chewing difficulty, coffee ground emesis, cramping, dry heaves or excessive flatus Genitourinary Genitourinary: Denies abdominal discomfort, anuria, contractions or flank pain Musculoskeletal Musculoskeletal: Denies difficulty walking, muscle spasms, muscle weakness or tremors Integumentary Integumentary: Reports wounds; Denies bleeding lesions, change in pigmentation, furuncle, hirsutism, jaundice or skin swelling Neurologic Neurologic: Denies abnormal movements, abnormal speech, behavior changes, confusion, focal weaknessor lack of coordination Psychiatric Psychiatric: Denies auditory hallucinations, behavioral changes, confusion, hallucinations, hopelessness, tactile hallucinations or visual hallucinations Endocrine Endocrinology: Denies cold intolerance, deepening of the voice, excessive sweating, fatigue, flushing or heat intolerance Hematologic/Lymphatic Hematologic/Lymphatic: Reports easy bruising Allergic/Immunologic Allergic/Immunologic: Denies lip swelling, throat swelling, tongue swelling, hives, eczemia or wheezing Vital Signs Vital Signs Vital Signs: 01/25/25 10:36 Temperature 96.9 F L Temperature Source Temporal Pulse Rate 80 Respiratory Rate 18 Blood Pressure 141/85 H Blood Pressure Mean 103 Blood Pressure Source Monitor Blood Pressure Position Sitting Blood Pressure Location Right Arm Oxygen Delivery Method Room Air Physical Exam Const alert, oriented x3 and no apparent distress General Appearance: cooperative and comfortable HEENT normocephalic, head/scalp atraumatic and hearing grossly normal bilaterally Eyes EOMs intact bilaterally General Eye: normal appearance of both eyes Neck full ROM General: normal visual inspection Resp normal respiratory effort and normal air movement Effort and Inspection: able to speak in complete sentences Cardio regular rate, regular rhythm, S1 normal heart sound and S2 normal heart sound GI soft to palpation and non-tender Skin Wounds: wounds noted size Size: See clinical note, bed peeling and necrotic, margins well approximated, no odor and surrounding erythema Neuro CN's II-XII intact bilaterally, moves all extremities and no focal motor deficits Psych mental status grossly normal, thought process normal, cooperative and affect normal Debridement Note Debridement Note Wound debrided: Left forearm/wrist Type of Debridement: Excisional debridement Anesthesia Used: 5% Lidocaine Gel Depth: Down to and including healthy tissue and in the subcutaneous layer Percentage of wound debrided: 100 Instrument Used: 5mm curette, #15 blade and Forceps Tissue Removed: Devitalized tissue Severity: Fat Layer Exposed Amount of bleeding with debridement: Mild Bleeding Controlled with: Pressure Patient tolerated procedure: Patient tolerated procedure well Post-Debridement Measurements and Additional Note: Post-Debridement Measurements/Treatment - Nurse 1 - General Ulcer Assessment Start: 01/25/25 10:30 Freq: Status: Active Protocol: GILLIAN Activity Type Activity Date Activity User E-sign Co-sign Detail Recorded Client Recorded Date Recorded By Document 01/25/25 10:36 [id number] 01/25/25 10:40 01/25/25 10:36 - Today's Visit Information Type of service Initial Visit Arrival Mode Ambulatory Patient Identification Verified (Name & Yes ) Vital Signs Temperature (97.8 F-99.1 F) 96.9 F L Temperature Source Temporal Pulse Rate (60-100) 80 Pulse Location Monitor Respiratory Rate (12-18) 18 Respiratory rate source Observation Oxygen Delivery Method Room Air Blood Pressure (90/60-120/80) 141/85 H Blood Pressure Mean 103 Source Monitor Position Sitting Blood Pressure Location Right Arm Pain Scale: 0-10 Numeric Is Patient Pain Free? Yes Communication Assessment Preferred language [place] Distance Education Faculty Liaison Required No Able to Read Yes Able to Write Yes Communication Tools None Right Hearing Abillity Normal Left Hearing Abillity Normal Visual Assistive Devices Glasses Teaching Assessment Preferences Verbal Barriers to Learning None Readiness To Learn Excellent Willingness to Engage in Self Management High Activies Readiness to Engage in Self Management High Activities Anxiety Level Calm Cooperation Cooperative Perception Coherent Interest in Health Problem Asks Questions Education Importance Acknowledges Need Does Patient Smoke tobacco or other Yes substances Smoking Status Former smoker Is Patient Diabetic No Functional Assessment Recent Decline in Ability to Perform Denies Any Declines Culture/Orthodox/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 Specialist Cultural/Orthodox Needs that may affect No Treatment Plan Teaching: Wound Center *Welcome to the Wound Center -Person Taught Patient -Teaching Method Discussion -Response to teaching Verbalize Understanding WC - Nurse 1 - General Ulcer Measurement Start: 01/25/25 10:30 Freq: Status: Active Protocol: Activity Type Activity Date Activity User E-sign Co-sign Detail Recorded Client Recorded Date Recorded By Document 01/25/25 10:40 DS [id number] 01/25/25 10:54 DS 01/25/25 10:40 Wound Center Nurse 1 #5 left wrist -Current Size (cm) - Length 1.5 -Current Size (cm) - Width 0.7 -Current Size (cm) - Depth 0.1 -Total Square Cm 1.05 -Date of Last Picture (Recall this 01/25/25 field) -Photo Taken Yes -Tunneling No -Undermining/Tunneling No -Circular Undermining No -Wound Margin Distinct, Outline Attached -Granulation Amt Large (67-100%) -Granulation Quality [place] -Slough/Fibrin No -Texture (Edie-wound Skin Appearance) Assessed -Moisture (Edie-wound Skin Appearance) Assessed -Color (Edie-wound Skin Appearance) Assessed -Temperature (Edie-wound Skin No Abnormality Appearance) (Pt Warm) -Ulcer Cleansing Soap and Water -Foul Odor after Cleansing No -Anesthetic Used 5% Lidocaine Gel #4 left knee -Current Size (cm) - Length 2.5 -Current Size (cm) - Width 2.5 -Current Size (cm) - Depth 0.1 -Total Square Cm 6.25 -Date of Last Picture (Recall this 01/25/25 field) -Photo Taken Yes -Tunneling No -Undermining/Tunneling No -Circular Undermining No -Exudate Amt Small -Exudate Type Serosanguineous -Wound Margin Distinct, Outline Attached -Granulation Amt Large (67-100%) -Granulation Quality [place] -Slough/Fibrin No -Texture (Edie-wound Skin Appearance) Assessed -Moisture (Edie-wound Skin Appearance) Assessed -Color (Edie-wound Skin Appearance) Assessed -Temperature (Edie-wound Skin No Abnormality Appearance) (Pt Warm) -Tenderness on Palpation (Edie-wound No Skin Appearance) -Ulcer Cleansing Soap and Water -Anesthetic Used 5% Lidocaine Gel WC - Nurse 2 - General Ulcer CM Notes Start: 01/25/25 10:30 Freq: Status: Active Protocol: Activity Type Activity Date Activity User E-sign Co-sign Detail Recorded Client Recorded Date Recorded By Document 01/25/25 11:12 [id number] 01/25/25 11:17 01/25/25 11:12 Wound Center Nurse 2 #5 left wrist -Time 11:12 -Correct Patient Yes -Correct Side, Site, Position Yes -Correct Procedure Yes -Procedure Performed Yes -Type of Procedure Debridement -Clinical Debridement Subcutaneous -Tissue Removed Subcutaneous -Post Debridement (cm) - Length 1.8 -Post Debridement (cm) - Width 1.0 -Post Debridement (cm) - Depth 0.1 -Total Square (Post) (cm) 1.80 -Area of Debridement (cm) - Length 1.8 -Area of Debridement (cm) - Width 1.0 -Total Square (Area) (cm) 1.80 -Tunneling No -Undermining/Tunneling No -Circular Undermining No -Wound/Ulcer Outcome Not Healed -Ulcer Cleansing Rinsed/ Irrigated with Saline -Foul Odor after Cleansing No -Bioengineered Tissue No -Bleeding Controlled with Pressure -Treatment Response Procedure Tolerated Well -Offloading No -Debridement - Subq, 1st 20sq cm No #4 left knee -Time 11:12 -Correct Patient Yes -Correct Side, Site, Position Yes -Correct Procedure Yes -Procedure Performed Yes -Type of Procedure Debridement -Clinical Debridement Subcutaneous -Tissue Removed Subcutaneous -Post Debridement (cm) - Length 3.0 -Post Debridement (cm) - Width 2.7 -Post Debridement (cm) - Depth 0.1 -Total Square (Post) (cm) 8.10 -Area of Debridement (cm) - Length 3.0 -Area of Debridement (cm) - Width 2.7 -Total Square (Area) (cm) 8.10 -Tunneling No -Undermining/Tunneling No -Circular Undermining No -Wound/Ulcer Outcome Not Healed -Ulcer Cleansing Rinsed/ Irrigated with Saline -Foul Odor after Cleansing No -Bioengineered Tissue No -Bleeding Controlled with Pressure -Treatment Response Procedure Tolerated Well -Offloading No -Debridement - Subq, 1st 20sq cm Yes Pain Scale: 0-10 Numeric Is Patient Pain Free? Yes WC - Nurse 3 - General Ulcer D/C NN Start: 01/25/25 10:30 Freq: Status: Active Protocol: Activity Type Activity Date Activity User E-sign Co-sign Detail Recorded Client Recorded Date Recorded By Document 01/25/25 11:25 MT [id number] 01/25/25 11:27 MT Edit Result 01/25/25 11:25 MT (1) [id number] 01/25/25 11:28 MT (1) #5 left wrist - Silicone Border Foam 4x4 1 => 2 #4 left knee - Silicone Border Foam 4x4 1 => 2 01/25/25 11:25 Wound Care Center Nurse 3 #5 left wrist -Foul Odor after Cleansing No -Negative Pressure Wound Therapy N/A -Primary Dressing Applied Fibracol Plus 4x4,Silicone Border Foam 4x4 -Fibracol Plus 4x4 1 -Silicone Border Foam 4x4 2 #4 left knee -Primary Dressing Applied Silicone Border Foam 4x4 -Silicone Border Foam 4x4 2 Pain Scale: 0-10 Numeric Is Patient Pain Free? Yes WC - Visit Discharge Discharge Condition Stable Ambulatory Status Ambulatory Transportation Private Auto Medication Reconcilliation completed & No provided to patient/care provider Clinical Summary of Care Provided Yes Notes: THE PT VERBALIZED UNDERSTANDING OF NEW ORDERS. Additional Wound Wound debrided: Left knee Type of Debridement: Excisional debridement Anesthesia Used: 5% Lidocaine Gel Depth: Down to and including healthy tissue Percentage of wound debrided: 100 Instrument Used: 5mm curette Tissue Removed: Devitalized tissue Severity: Limited To Skin Breakdown Amount of bleeding with debridement: Mild Bleeding Controlled with: Pressure Patient tolerated procedure: Patient tolerated procedure well Charges/Coding Visit Charges Office Visits / Consults: 73621 OV L3 Est 20min Procedures Integumentary 111xxx-113xx: [id number] Angella subq tissue 20 sq cm/< Assessment/Plan Assessment/Plan (1) Laceration of left forearm: CODE(S): S51.812A - Laceration without foreign body of left forearm, initial encounter QUALIFIERS: Encounter type: initial encounter Qualified Code(s): S51.812A - Laceration without foreign body of left forearm, initial encounter (2) Laceration of knee, left: CODE(S): S81.012A - Laceration without foreign body, left knee, initial encounter QUALIFIERS: Encounter type: initial encounter Qualified Code(s): S81.012A - Laceration without foreign body, left knee, initial encounter (3) History of fall: CODE(S): Z91.81 - History of falling PLAN: Plan Debridement done as documented above, procedure was well-tolerated. No clinicalconcern for infection however as above, is currently on cephalexin and doxycycline prescribed by his primary care physician. Pain is improving. Started wound care with products he had at home. For now, will start on Fibracol to both areas daily. Cover with Adaptic and gauze/foam dressing. Change daily to twice daily depending on drainage. Elevate left lower extremityand upper extremity when seated. Adequate dietary/protein intake also recommended. His questions were answered and he was advised to let us know if he had any further questions or concerns. Follow-up in a week or sooner if needed. This note was generated with SNAPCARD dictation software. It may contain incorrectwords, spelling, and punctuation that were not noted in checking the note beforesigning. 01/25/252208 Cosigner Signature (if applicable): CC: ~ Signed [facility]08-27-2025 Radiology Diagnostic study note [facility] Imaging Services [address] [place] [address] [id number] Brain/Head without Contrast MR#: [id number] Acct: [id number] Name: VALENTINA CABRERA Rep #: [id number] : 1945 M 80 From: Tommy Morales MD PCP: Dr. Tre García MD Status: SABI JANE Study:Brain/Head without Contrast Date of Exa m: 01/24/25 Exam# [id number] Ordering Dr: Tre García MD PROCEDURE: BRAIN/HEAD WITHOUT CONTRAST 01/24/2025 REASON FOR EXAM: CLOSED HEAD INJURY TECHNIQUE: BRAIN/HEAD WITHOUT CONTRAST Coronal and Sagittal reconstruction series were provided. One or more dose reduction techniques were used (e.g., Automated exposure control, adjustment of the mA and/or kV according to patient size, use of iterative reconstruction technique. RADIATION DOSE SUMMARY: CTDlvol: 44.99 mGy DLP: 779.24 mGycm COMPARISON: Prior study dated August 15, 2023. FINDINGS: Brain: Low density in the periventricular white matter suggests mild chronic small vessel ischemic changes. CSF Spaces: Mild generalized cerebral atrophy Sinuses/Mastoids: Clear at visualized levels Bones: No fracture. CT/Brain/Head without Contrast IMPRESSION: CHRONIC CHANGES. NO ACUTE FINDINGS. Reading Location: [id number] CC: Dr. 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: Signed [facility]06-30-2025 Progress note Author Lila López [facility] Note Date/Time November 27, 2024 12:2 7pm [facility] Medical Records Department [address] [place] [id number] Progress Note - Neurology 11/27/24 1153 MR#: [id number] Acct: [id number] Name: VALENTINA CABRERA Rep #:[id number] : 1945 79 From: Lila López MD PCP: Dr. Tre García MD Status:ADM I NO Location: [place] [address] Objective Data Objective Data Vital Signs: Vital Signs Temp Pulse Resp BP Pulse Ox O2 Del Method 97.6 F L 77 14 131/72 H 93 Room Air 11/27/24 07:52 11/27/24 07:52 11/27/24 07:52 11/27/24 07:52 11/27/24 07:52 11/27/24 08:04 Oxygen Delivery Method Room Air Weight: 89.4 kg Body Mass Index (BMI) 29.9 Intake & Output: Intake and Output for Last 24 Hours 11/25/24 11/26/24 11/27/24 23:59 23:59 23:59 Intake Total 1000 / 1100 1580 / 1580 Output Total 0 / 0 Balance 1000 / 1100 1580 / 1580 Lab / Micro Data 11/26/24 06:10 11/26/24 06:10 Radiography Diagnostic Testing: Radiology Impression Brain MRI 11/26/24 22:33 IMPRESSION: No acute intracranial finding. Chronic findings as described. Reading Location: [id number] Physical Exam Neuro Neuro Narrative: Awake, alert, oriented X3 CN 2-12 intact Motor: 5/5 Sensation: Intact No ataxia Subject: Neurology Subjective VALENTINA CABRERA is a 79 year old M, who we are seeing in consultation today for advice on the management of stroke like symptoms. He is a former tobacco use, CKD, BPH with obstructive pathology, HTN, HLD, Anxiety and Depression, Chronic lumbar back pain, Asthma with allergic rhinitis, GERD who presents to the [facility] ED on 11/25/2024 with visual disturbances, vertigoand generalized weakness. He was at home watching tv when his vision got fuzzy and saw squiggles, then room started spinning, generalized weakness and had a hard time getting words out but could speak. Never happened before. Per family SBP 190s at that time. It lasted about 30min and returned to baseline. CTH/CTA neg. EEG Results Procedure Details EEG Procedure Details: VALENTINA CABRERA is a 79 year old M with a past medical history of , who presents for evaluation of Electroencephalogram on DATE at TIME Assessment and Plan: Stroke Assessment/Plan VALENTINA CABRERA is a 79 M with a history of former tobacco use, CKD, BPH with obstructive pathology, HTN, HLD, Anxiety and Depression, Chronic lumbar back pain, Asthma with allergic rhinitis, GERD who presents for evaluation of generalized weakness, visual disturbances. Neurological examination shows normal examination. Neuroimaging shows Brain: negative for acute stroke, CTA: Negative. Suspect could have been from transienthypertension. Continue ASA Aim normotension NIHSS NIHSS Nursing Documentation NIHSS Nursing Documentation: NIH Stroke Scale Start: 11/25/24 20:09 Freq: Status: Discharge Protocol: Activity Type Activity Date Activity User E-sign Co-sign Detail Recorded Client Recorded Date Recorded By Document 11/25/24 20:09 ET [id number] 11/25/24 20:10 ET 11/25/24 20:09 NIH Stroke Scale [NIHSS] A score of 0 is normal or asymptomatic . Total possible score is 42. Inpatient: RN or Physician to activate a stroke alert for onset of new stroke symptoms or with NIHSS increase >/= 3 points. Following change in neurological status, NIHSS will be performed per physician order or more frequently PRN. -1a. Level of Consciousness 0 - Alert; keenly responsive -1b. LOC Questions 0 - Answers BOTH questions correctly -1c. LOC Commands 0 - Performs BOTH tasks correctly -2. Best Gaze 0 - Normal -3. Visual 0 - No visual loss -4. Facial Palsy 0 - Normal symmetrical movements -5a. Left Arm 0 - No drift; arm holds 90 ( or 45) degrees for full 10 seconds -5b. Right Arm 0 - No drift; arm holds 90 ( or 45) degrees for full 10 seconds -6a. Left Leg 0 - No drift; leg holds 30- degree position for full 5 seconds -6b. Right Leg 0 - No drift; leg holds 30- degree position for full 5 seconds -7. Limb Ataxia 0 - Absent -8. Sensory 0 - Normal; no sensory loss -9. Best Language 0 - No aphasia; normal -10. Dysarthria 0 - Normal -11. Extinction and Inattention 0 - No abnormality -Total 0 Query Text:A score of 0 is normal or asymptomatic. Total possible score is 42 . ED: Notify Physician for NIHSS increase by > / = 3 points. Inpatient: RN or Physician to activate a stroke alert for NIHSS increase of > / = 3 points. NIHSS: Ischemic Stroke/TIA Start: 11/25/24 22:33 Text: For PCU Patients: NIH and Neuro Check every 4 Status: Complete hours, PRN and with change in RN caregiver. Freq: [id number] Protocol: Activity Type Activity Date Activity User E-sign Co-sign Detail Recorded Client Recorded Date Recorded By Document 11/27/24 08:00 [id number] 11/27/24 11:37 11/27/24 08:00 -1a. Level of Consciousness 0 - Alert; keenly responsive -1b. LOC Questions 0 - Answers BOTH questions correctly -1c. LOC Commands 0 - Performs BOTH tasks correctly -2. Best Gaze 0 - Normal -3. Visual 0 - No visual loss -4. Facial Palsy 0 - Normal symmetrical movements -5a. Left Arm 0 - No drift; arm holds 90 ( or 45) degrees for full 10 seconds -5b. Right Arm 0 - No drift; arm holds 90 ( or 45) degrees for full 10 seconds -6a. Left Leg 0 - No drift; leg holds 30- degree position for full 5 seconds -6b. Right Leg 0 - No drift; leg holds 30- degree position for full 5 seconds -7. Limb Ataxia 0 - Absent -8. Sensory 0 - Normal; no sensory loss -9. Best Language 0 - No aphasia; normal -10. Dysarthria 0 - Normal -11. Extinction and Inattention 0 - No abnormality -Total 0 Query Text:A score of 0 is normal or asymptomatic. Total possible score is 42 . ED: Notify Physician for NIHSS increase by > / = 3 points. Inpatient: RN or Physician to activate a stroke alert for NIHSS increase of > / = 3 points. Coma Scale [Assess] -Eye Opening Spontaneous -Motor Obeys Commands -Verbal Oriented [Total] -Coma Scale Total 15 NIHSS 1a. Level of Consciousness: 0 - Alert; keenly responsive 1b. LOC Questions: 0 - Answers BOTH questions correctly 1c. LOC Commands: 0 - Performs BOTH tasks correctly 2. Best Gaze: 0 - Normal 3. Visual: 0 - No visual loss 4. Facial Palsy: 0 - Normal symmetrical movements 5a. Left Arm: 0 - No drift; arm holds 90 (or 45) degrees for full 10 seconds 5b. Right Arm: 0 - No drift; arm holds 90 (or 45) degrees for full 10 seconds 6a. Left Le - No drift; leg holds 30-degree position for full 5 seconds 6b. Right Le - No drift; leg holds 30-degree position for full 5 seconds 7. Limb Ataxia: 0 - Absent 8. Sensory: 0 - Normal; no sensory loss 9. Best Language: 0 - No aphasia; normal 10. Dysarthria: 0 - Normal 11. Extinction and Inattention: 0 - No abnormality Total: 0 11/27/24 1227 <Electronically signed by Lila López MD> Cosigner Signature (if applicable): CC: ~ Signed [facility] Work Phone: 1(746) 226-756206-30-2025 Hospital Discharge instructionsAdditional [facility]: [facility] 1(326) 381-799606-30-2025 Consult note Author Lulú Bey [facility] Note Date/Time November 27, 2024 11:5 9am [facility] Medical Records Department [address] [place] [address] Counseling Note - Pharmacy 11/27/24 1159 MR#: [id number] Acct: [id number] Name: VALENTINA CABRERA Rep #:[id number] : 1945 79 From: Lulú Bey PCP: Dr. Tre García MD Status:ADM I NO Y Location: [place] [address] Pharmacy [place] Med Reconciliation Pharmacy Service has performed discharge medication reconciliation for this patient. The patient's discharge medication list was reviewed for discrepancies and discrepancies were resolved. Medications at Discharge Home Medications polyethylene glycol 3350 17 gram oral powder packet 17 g PO DAILY PRN Constipation 04/19/13 lisinopril 5 mg tablet 5 mg PO DAILY 08/28/20 tamsulosin 0.4 mg capsule 0.4 mg PO QHS 06/16/21 montelukast 10 mg tablet 10 mg PO DAILY 05/06/23 nortriptyline 50 mg capsule 50 mg PO BID 06/02/23 omeprazole 10 mg capsule,delayed release 40 mg PO DAILY 06/02/23 azithromycin 250 mg tablet 250 mg PO DAILY 11/25/24 budesonide 160 mcg-glycopyr 9 mcg-formot 4.8 mcg/actuation HFA inhaler (Breztri Aerosphere) 2 inh inhalation BID 11/25/24 11/27/24 1159 <Electronically signed by Lulú Bey> Date _ Lulú Bey Cosigner Signature (if applicable): Date CC: ~ Signed [facility] Work Phone: 1(441) 320-408206-30-2025 Discharge summary Author Marilin Avila [facility] Note Date/Time November 27, 2024 11:0 3am [facility] Medical Records Department [address] [place] [address] Discharge Summary 11/27/24 1057 MR#: [id number] Acct: [id number] Name: VALENTINA CABRERA Rep #:[id number] : 1945 79 From: Marilin Avila DO PCP: Dr. Tre García MD Status:ADM I NO Location: [place] [address] Providers Date of Admission: 11/25/24 Date of Discharge: 11/27/24 Primary Care Physician: Dr. Tre García MD Consultations 11/25/24 22:33 Consult: Tele-Neurology Routine Consulting Provider: [facility] Reason for Consult: Acute Ischemic Stroke/TIA EMERGENT Consult: No MD Notified: Yes Date Notified: 11/26/24 Time Notified: 01: Method of Notification: Answering Service Nursing Unit Staff Notify [facility] of Tele-Neurology Consult: Yes Reason For Visit: TIA/CVA Diagnosis Discharge Diagnosis (1) Change in vision: Status: Acute Code(s): H53.9 - Unspecified visual disturbance (2) Dizziness: Status: Acute Code(s): R42 - Dizziness and giddiness (3) Elevated troponin: Status: Acute Code(s): R79.89 - Other specified abnormal findings of blood chemistry Medications at Discharge Home Medications polyethylene glycol 3350 17 gram oral powder packet 17 g PO DAILY PRN Constipation 04/19/13 lisinopril 5 mg tablet 5 mg PO DAILY 08/28/20 tamsulosin 0.4 mg capsule 0.4 mg PO QHS 06/16/21 montelukast 10 mg tablet 10 mg PO DAILY 05/06/23 nortriptyline 50 mg capsule 50 mg PO BID 06/02/23 omeprazole 10 mg capsule,delayed release 40 mg PO DAILY 06/02/23 azithromycin 250 mg tablet 250 mg PO DAILY 11/25/24 budesonide 160 mcg-glycopyr 9 mcg-formot 4.8 mcg/actuation HFA inhaler (Breztri Aerosphere) 2 inh inhalation BID 11/25/24 aspirin 81 mg chewable tablet 81 mg PO BREAKFAST #0 tabs 11/27/24 Hospital Course Procedures 2-D Echocardiogram, EKG and - (CTA head and neck/CT brain/chest x-ray/MRI brain) Summary of Care Provided Minutes Spent on Discharge: 38 Hospital Course: Mr. Cabrera is an 79-year-old highly functioning white male with history of hypertension hyperlipidemia who presented to the emergency department at [facility] on 11/25/2024 with chief complaint of transient blurred visionand vertigo. Patient reported that he had symptoms abruptly while he was watching television. He had the sensation that the room was spinning. He had vertigo previously but it was very different from what he experienced prior to presentation. Symptoms lasted for about an hour and a half which prompted evaluation in the emergency department. NIH at the time of presentation was 0 and he was not a candidate for tenecteplase. CT of the brain was unremarkable for any acute findings. CTA of the head and neck showed no LVO's, aneurysm, or AVM with no significant stenosis. Chest x-ray was unremarkable for any acute findings. Vital signs on presentation showed temperature of 97.9, heart rate 85, respiratory rate 13, blood pressure 133/74 and pulse ox was 93% on room air. CBC was unremarkable. Chemistry panel was unremarkable other than he appeared slightly dehydrated with a BUN of 21 and a serum creatinine of 1.15. Initial troponin was 39 with subsequent troponin at 2 hours being 36 and a 4-hour troponin at 35 without EKG changes or chest pain. He was admitted to PCU for ongoing stroke workup. MRI was obtained on 11/26/2024 and was unremarkable. Hishemoglobin A1c was 5.3. Lipid panel showed a total cholesterol of 101 with an LDL of 51 and an HDL of 41. TSH was 1.04. Echocardiogram was performed on the a.m. of 11/27/2024 was WNL. Patient was evaluated by neurology and they felt that this was very unlikely cerebrovascular event and probably related to presyncope versus hypertensive crisis but recommended ASA 81 mg and ongoing BP goal or 130/80 or less. Patient's blood pressure on no medication while he was hospitalized was fairly unremarkable. Given his negative workup he was instructed to follow-up with his primary care physician and neurology after discharge and able to be discharged home in stable condition on 11/27/2024 with no medication changes. Discharge diagnoses: Change in vision/blurred Vertigo Thrombocytopenia Essential hypertension Hyperlipidemia CKD stage II Elevated troponin Asthma Allergic rhinitis COPD Anxiety Depression Chronic low back pain GERD BPH with obstruction History of tobacco abuse Obesity Physical Exam Narrative Patient continues to feel well. Dizziness and vision changes continue to be resolved. Have been resolved since emergency department. Anxious to go home. We reviewed his echocardiogram. Const alert, oriented x3, no apparent distress, average body habitus, no limitations, healthy appearing and well nourished Constitutional Narrative: Very pleasant, older, white male, appears younger than stated age, sitting up inchair at the bedside watching television, appears comfortable, nontoxic General Appearance: cooperative, comfortable, well kempt and well developed Exam Limitations: no limitations Nutritional Appearance: obese HEENT normocephalic, head/scalp atraumatic and moist oral mucous membranes; Negative for hearing grossly normal bilaterally HEENT Narrative: Mild hearing loss, Mallampati 2, no thrush Eyes conjunctivae normal Eyes Narrative: No scleral icterus Neck supple Neck Narrative: Trachea midline Resp normal respiratory effort, no retractions, no use of accessory muscles and clearto auscultation bilaterally Auscultation: Negative for crackles, rhonchi or wheezes Cardio regular rate, regular rhythm, S1 normal heart sound, S2 normal heart sound, no murmurs, no rub, no gallops and no clicks GI normal to inspection, nondistended, normoactive bowel sounds, soft to palpation and non-tender Extremity no clubbing, cyanosis or edema Extremity Narrative: 2+ pedal and radial pulses Skin skin turgor normal and no jaundice Skin Narrative: Scattered ecchymosis in various stages of healing upper and lower extremities Neuro oriented x3, CN's II-XII intact bilaterally, moves all extremities and no focal motor deficits Speech: speech normal Psych affect normal Psych Narrative: Very pleasant, interacts appropriately Weight / BMI Weight Weight: 89.4 kg Body Mass Index (BMI) 29.9 ABG / Lab / Microbiology Data 11/26/24 06:10 11/26/24 06:10 Radiography Diagnostic Testing: Radiology Impression Brain MRI 11/26/24 22:33 IMPRESSION: No acute intracranial finding. Chronic findings as described. Reading Location: [id number] D/C Instructions Discharge Diet: Low fat / Low cholesterol Discharge Activity: Return to Normal Activity DC O2, CPAP, BIPAP Needs Home O2 Discharge instructions: No Meaningful Use Info Meaningful Use Meaningful Use Diagnoses (Choose all that apply): None applicable Ischemic Stroke Statin Dosing Therapy Reference: STATIN DOSE THERAPY REFERENCE: * Patients > 75 years receive moderate or high dose statin therapy. * Patients 75 years or YOUNGER should receive HIGH intensity statin dose unless contraindicated. You will be required to document reason for non-treatment if statin daily dose does not meet guidelines. HIGH DOSE STATIN THERAPY DAILY Atorvastatin > than or = to 40 mg Rosuvastatin > than or = to 20 mg Amlodipine + Atorvastatin > than or = to 2.5/40 mg Ezetimibe + Simvastatin 10/80 mg Simvastatin 80mg Discharge Plan Admission Admit Date/Time: 11/25/24 21:27 Primary Reason for Your Visit: Vertigo/dizziness Attending Provider: Marilin Avila Primary Care Provider: Tre García Chi Consulting Providers: Norman Cerda; Dk Baltazar; Lila López; Jacqui Tinajero; Edie Lombardo; Tyler Perdomo; Jenni Lugo; Jeffery Zee; Souleymane Levin; Arcenio Schultz; Alley Prince; Kaushik Carter; Lisa Kennedy; David Cooley; Christiano Cabral; Nikko Child; Esperanza Springer; Jah Carey; Khushbu Avila; Ace Alexander;Megan Garcia Discharge Orders/Prescriptions Prescriptions: New aspirin 81 mg Tablet,Chewable 81 mg PO BREAKFAST Qty: 0 0RF Continued montelukast 10 mg tablet 10 mg PO DAILY nortriptyline 50 mg capsule 50 mg PO BID polyethylene glycol 3350 17 GM powder in packet 17 g PO DAILY PRN (Reason: Constipation) Patient Comments: constipation lisinopril 5 MG tablet 5 mg PO DAILY omeprazole 10 mg capsule,delayed release(DR/EC) 40 mg PO DAILY tamsulosin 0.4 mg capsule 0.4 mg PO QHS Breztri Aerosphere 160-9-4.8 mcg/actuation HFA aerosol inhaler 2 inh INHALATION BID azithromycin 250 mg tablet 250 mg PO DAILY Referrals / Follow Up: Tyler Perdomo MD [Med Staff - Contracted] - Within 2 Weeks Tre García Chi, MD [Primary Care Provider] - Disposition Disposition (needs filled in before D/C Order can be placed): Home, Self Care Charges/Coding Visit Charges Inpatient E&M: 65484 Disch Hosp >30min 11/27/24 1338 <Electronically signed by Marilin Avila DO> Cosigner Signature (if applicable): CC: Dr. Marilin Avila DO; Dr. Sunny Alvares MD; Dr. Tre García MD~ Signed [facility] Work Phone: 1(905) 345-533106-30-2025 Progress note [facility] Medical Records Department [address] [place] [address] Progress Note - Neurology 11/27/24 1153 MR#: [id number] Acct: [id number] Name: VALENTINA CABRERA Rep #:[id number] : 1945 79 From: Lila López MD PCP: Dr. Tre García MD Status:ADM I NO Location: [place] [address] Objective Data Objective Data Vital Signs: Vital Signs Temp Pulse Resp BP Pulse Ox O2 Del Method 97.6 F L 77 14 131/72 H 93 Room Air 11/27/24 07:52 11/27/24 07:52 11/27/24 07:52 11/27/24 07:52 11/27/24 07:52 11/27/24 08:04 Oxygen Delivery Method Room Air Weight: 89.4 kg Body Mass Index (BMI) 29.9 Intake & Output: Intake and Output for Last 24 Hours 11/25/24 11/26/24 11/27/24 23:59 23:59 23:59 Intake Total 1000 / 1100 1580 / 1580 Output Total 0 / 0 Balance 1000 / 1100 1580 / 1580 Lab / Micro Data 11/26/24 06:10 11/26/24 06:10 Radiography Diagnostic Testing: Radiology Impression Brain MRI 11/26/24 22:33 IMPRESSION: No acute intracranial finding. Chronic findings as described. Reading Location: [facility] Physical Exam Neuro Neuro Narrative: Awake, alert, oriented X3 CN 2-12 intact Motor: 5/5 Sensation: Intact No ataxia Subject: Neurology Subjective VALENTINA CABRERA is a 79 year old M, who we are seeing in consultation today for advice on the management of stroke like symptoms. He is a former tobacco use, CKD, BPH with obstructive pathology, HTN, HLD, Anxiety and Depression, Chronic lumbar back pain, Asthma with allergic rhinitis, GERD who presents to the [facility] ED on 11/25/2024 with visual disturbances, vertigoand generalized weakness. He was at home watching tv when his vision got fuzzy and saw squiggles, then room started spinning, generalized weakness and had a hard time getting words out but could speak. Never happened before. Per family SBP 190s at that time. It lasted about 30min and returned to baseline. CT H/CTA neg. EEG Results Procedure Details EEG Procedure Details: VALENTINA CABRERA is a 79 year old M with a past medical history of , who presents for evaluation of Electroencephalogram on DATE at TIME Assessment and Plan: Stroke Assessment/Plan VALENTINA CABRERA is a 79 M with a history of former tobacco use, CKD, BPH with obstructive pathology, HTN, HLD, Anxiety and Depression, Chronic lumbar back pain, Asthma with allergic rhinitis, GERD who presents for evaluation of generalized weakness, visual disturbances. Neurological examination shows normal examination. Neuroimaging shows Brain: negative for acute stroke, CTA: Negative. Suspect could have been from transienthypertension. Continue ASA Aim normotension NIHSS NIHSS Nursing Documentation NIHSS Nursing Documentation: NIH Stroke Scale Start: 11/25/24 20:09 Freq: Status: Discharge Protocol: Activity Type Activity Date Activity User E-sign Co-sign Detail Recorded Client Recorded Date Recorded By Document 11/25/24 20:09 ET [id number] 11/25/24 20:10 ET 11/25/24 20:09 NIH Stroke Scale [NIHSS] A score of 0 is normal or asymptomatic . Total possible score is 42. Inpatient: RN or Physician to activate a stroke alert for onset of new stroke symptoms or with NIHSS increase >/= 3 points. Following change in neurological status, NIHSS will be performed per physician order or more frequently PRN. -1a. Level of Consciousness 0 - Alert; keenly responsive -1b. LOC Questions 0 - Answers BOTH questions correctly -1c. LOC Commands 0 - Performs BOTH tasks correctly -2. Best Gaze 0 - Normal -3. Visual 0 - No visual loss -4. Facial Palsy 0 - Normal symmetrical movements -5a. Left Arm 0 - No drift; arm holds 90 ( or 45) degrees for full 10 seconds -5b. Right Arm 0 - No drift; arm holds 90 ( or 45) degrees for full 10 seconds -6a. Left Leg 0 - No drift; leg holds 30- degree position for full 5 seconds -6b. Right Leg 0 - No drift; leg holds 30- degree position for full 5 seconds -7. Limb Ataxia 0 - Absent -8. Sensory 0 - Normal; no sensory loss -9. Best Language 0 - No aphasia; normal -10. Dysarthria 0 - Normal -11. Extinction and Inattention 0 - No abnormality -Total 0 Query Text:A score of 0 is normal or asymptomatic. Total possible score is 42 . ED: Notify Physician for NIHSS increase by > / = 3 points. Inpatient: RN or Physician to activate a stroke alert for NIHSS increase of > / = 3 points. NIHSS: Ischemic Stroke/TIA Start: 11/25/24 22:33 Text: For PCU Patients: NIH and Neuro Check every 4 Status: Complete hours, PRN and with change in RN caregiver. Freq: [id number] Protocol: Activity Type Activity Date Activity User E-sign Co-sign Detail Recorded Client Recorded Date Recorded By Document 11/27/24 08:00 [id number] 11/27/24 11:37 11/27/24 08:00 -1a. Level of Consciousness 0 - Alert; keenly responsive -1b. LOC Questions 0 - Answers BOTH questions correctly -1c. LOC Commands 0 - Performs BOTH tasks correctly -2. Best Gaze 0 - Normal -3. Visual 0 - No visual loss -4. Facial Palsy 0 - Normal symmetrical movements -5a. Left Arm 0 - No drift; arm holds 90 ( or 45) degrees for full 10 seconds -5b. Right Arm 0 - No drift; arm holds 90 ( or 45) degrees for full 10 seconds -6a. Left Leg 0 - No drift; leg holds 30- degree position for full 5 seconds -6b. Right Leg 0 - No drift; leg holds 30- degree position for full 5 seconds -7. Limb Ataxia 0 - Absent -8. Sensory 0 - Normal; no sensory loss -9. Best Language 0 - No aphasia; normal -10. Dysarthria 0 - Normal -11. Extinction and Inattention 0 - No abnormality -Total 0 Query Text:A score of 0 is normal or asymptomatic. Total possible score is 42 . ED: Notify Physician for NIHSS increase by > / = 3 points. Inpatient: RN or Physician to activate a stroke alert for NIHSS increase of > / = 3 points. Coma Scale [Assess] -Eye Opening Spontaneous -Motor Obeys Commands -Verbal Oriented [Total] -Coma Scale Total 15 NIHSS 1a. Level of Consciousness: 0 - Alert; keenly responsive 1b. LOC Questions: 0 - Answers BOTH questions correctly 1c. LOC Commands: 0 - Performs BOTH tasks correctly 2. Best Gaze: 0 - Normal 3. Visual: 0 - No visual loss 4. Facial Palsy: 0 - Normal symmetrical movements 5a. Left Arm: 0 - No drift; arm holds 90 (or 45) degrees for full 10 seconds 5b. Right Arm: 0 - No drift; arm holds 90 (or 45) degrees for full 10 seconds 6a. Left Le - No drift; leg holds 30-degree position for full 5 seconds 6b. Right Le - No drift; leg holds 30-degree position for full 5 seconds 7. Limb Ataxia: 0 - Absent 8. Sensory: 0 - Normal; no sensory loss 9. Best Language: 0 - No aphasia; normal 10. Dysarthria: 0 - Normal 11. Extinction and Inattention: 0 - No abnormality Total: 0 11/27/24 1227 Cosigner Signature (if applicable): CC: ~ Signed [facility]06-30-2025 Consult note [facility] Medical Records Department [address] [place] [id number] Counseling Note - Pharmacy 11/27/24 1159 MR#: [id number] Acct: [id number] Name: VALENTINA CABRERA Rep #:[id number] : 1945 79 From: Lulú Bey PCP: Dr. Tre García MD Status:ADM I NO Y Location: [place] [address] Pharmacy [place] Med Reconciliation Pharmacy Service has performed discharge medication reconciliation for this patient. The patient's discharge medication list was reviewed for discrepancies and discrepancies were resolved. Medications at Discharge Home Medications polyethylene glycol 3350 17 gram oral powder packet 17 g PO DAILY PRN Constipation 04/19/13 lisinopril 5 mg tablet 5 mg PO DAILY 08/28/20 tamsulosin 0.4 mg capsule 0.4 mg PO QHS 06/16/21 montelukast 10 mg tablet 10 mg PO DAILY 05/06/23 nortriptyline 50 mg capsule 50 mg PO BID 06/02/23 omeprazole 10 mg capsule,delayed release 40 mg PO DAILY 06/02/23 azithromycin 250 mg tablet 250 mg PO DAILY 11/25/24 budesonide 160 mcg-glycopyr 9 mcg-formot 4.8 mcg/actuation HFA inhaler (Breztri Aerosphere) 2 inh inhalation BID 11/25/24 11/27/24 1159 Date _ Lulú Bey Cosigner Signature (if applicable): Date CC: ~ Signed [facility]06-30-2025 Discharge summary [facility] Medical Records Department [address] [place] [address] Discharge Summary 11/27/24 1057 MR#: [id number] Acct: [id number] Name: VALENTINA CABRERA Rep #:[id number] : 1945 79 From: Marilin Avila DO PCP: Dr. Tre García MD Status:ADM I NO [facility] Providers Date of Admission: 11/25/24 Date of Discharge: 11/27/24 Primary Care Physician: Dr. Tre García MD Consultations 11/25/24 22:33 Consult: Tele-Neurology Routine Consulting Provider: [facility] Reason for Consult: Acute Ischemic Stroke/TIA EMERGENT Consult: No MD Notified: Yes Date Notified: 11/26/24 Time Notified: 01:25 Method of Notification: Answering Service Nursing Unit Staff Notify [facility] of Tele-Neurology Consult: Yes Reason For Visit: TIA/CVA Diagnosis Discharge Diagnosis (1) Change in vision: Status: Acute Code(s): H53.9 - Unspecified visual disturbance (2) Dizziness: Status: Acute Code(s): R42 - Dizziness and giddiness (3) Elevated troponin: Status: Acute Code(s): R79.89 - Other specified abnormal findings of blood chemistry Medications at Discharge Home Medications polyethylene glycol 3350 17 gram oral powder packet 17 g PO DAILY PRN Constipation 04/19/13 lisinopril 5 mg tablet 5 mg PO DAILY 08/28/20 tamsulosin 0.4 mg capsule 0.4 mg PO QHS 06/16/21 montelukast 10 mg tablet 10 mg PO DAILY 05/06/23 nortriptyline 50 mg capsule 50 mg PO BID 06/02/23 omeprazole 10 mg capsule,delayed release 40 mg PO DAILY 06/02/23 azithromycin 250 mg tablet 250 mg PO DAILY 11/25/24 budesonide 160 mcg-glycopyr 9 mcg-formot 4.8 mcg/actuation HFA inhaler (Breztri Aerosphere) 2 inh inhalation BID 11/25/24 aspirin 81 mg chewable tablet 81 mg PO BREAKFAST #0 tabs 11/27/24 Hospital Course Procedures 2-D Echocardiogram, EKG and - (CTA head and neck/CT brain/chest x-ray/MRI brain) Summary of Care Provided Minutes Spent on Discharge: 38 Hospital Course: Mr. Cabrera is an 79-year-old highly functioning white male with history of hypertension hyperlipidemia who presented to the emergency department at [facility] on 11/25/2024 with chief complaint of transient blurred visionand vertigo. Patient reported that he had symptoms abruptly while he was watching television. He had the sensation that the room was spinning. He had vertigo previously but it was very different from what he experienced prior to presentation. Symptoms lasted for about an hour and a half which prompted evaluation in the emergency department. NIH at the time ofpresentation was 0 and he was not a candidate for tenecteplase. CT of the brain was unremarkable for any acute findings. CTA of the head and neck showed no LVO's, aneurysm, or AVM with no significantstenosis. Chest x-ray was unremarkable for any acute findings. Vital signs on presentation showed temperature of 97.9, heart rate 85, respiratory rate 13, blood pressure 133/74 and pulse ox was 93% on room air. CBC was unremarkable. Chemistry panel was unremarkable other than he appeared slightly dehydrated with a BUN of 21 and a serum creatinine of 1.15. Initial troponin was 39 with subsequent troponin at 2 hours being 36 and a 4-hour troponin at 35 without EKG changes or chest pain. He was admitted to PCU for ongoing stroke workup. MRI was obtained on 11/26/2024 and was unremarkable. Hishemoglobin A1c was 5.3. Lipid panel showed a total cholesterol of 101 with an LDL of 51 and an HDL of 41. TSH was 1.04. Echocardiogram was performed on the a.m. of 11/27/2024 was WNL. Patient was evaluatedby neurology and they felt that this was very unlikely cerebrovascular event and probably related to presyncope versus hypertensive crisis but recommended ASA 81 mg and ongoing BP goal or 130/80 or less. Patient's blood pressure on no medication while he was hospitalized was fairly unremarkable. Given his negative workup he was instructed to follow-up with his primary care physician and neurologyafter discharge and able to be discharged home in stable condition on 11/27/2024 with no medication changes. Discharge diagnoses: Change in vision/blurred Vertigo Thrombocytopenia Essential hypertension Hyperlipidemia CKD stage II Elevated troponin Asthma Allergic rhinitis COPD Anxiety Depression Chronic low back pain GERD BPH with obstruction History of tobacco abuse Obesity Physical Exam Narrative Patient continues to feel well. Dizziness and vision changes continue to be resolved. Have been resolved since emergency department. Anxious to go home. We reviewed his echocardiogram. Const alert, oriented x3, no apparent distress, average body habitus, no limitations, healthy appearing and well nourished Constitutional Narrative: Very pleasant, older, white male, appears younger than stated age, sitting up inchair at the bedside watching television, appears comfortable, nontoxic General Appearance: cooperative, comfortable, well kempt and well developed Exam Limitations: no limitations Nutritional Appearance: obese HEENT normocephalic, head/scalp atraumatic and moist oral mucous membranes; Negative for hearing grossly normal bilaterally HEENT Narrative: Mild hearing loss, Mallampati 2, no thrush Eyes conjunctivae normal Eyes Narrative: No scleral icterus Neck supple Neck Narrative: Trachea midline Resp normal respiratory effort, no retractions, no use of accessory muscles and clearto auscultation bilaterally Auscultation: Negative for crackles, rhonchi or wheezes Cardio regular rate, regular rhythm, S1 normal heart sound, S2 normal heart sound, no murmurs, no rub, no gallops and no clicks GI normal to inspection, nondistended, normoactive bowel sounds, soft to palpation and non-tender Extremity no clubbing, cyanosis or edema Extremity Narrative: 2+ pedal and radial pulses Skin skin turgor normal and no jaundice Skin Narrative: Scattered ecchymosis in various stages of healing upper and lower extremities Neuro oriented x3, CN's II-XII intact bilaterally, moves all extremities and no focal motor deficits Speech: speech normal Psych affect normal Psych Narrative: Very pleasant, interacts appropriately Weight / BMI Weight Weight: 89.4 kg Body Mass Index (BMI) 29.9 ABG / Lab / Microbiology Data 11/26/24 06:10 11/26/24 06:10 Radiography Diagnostic Testing: Radiology Impression Brain MRI 11/26/24 22:33 IMPRESSION: No acute intracranial finding. Chronic findings as described. Reading Location: [id number] D/C Instructions Discharge Diet: Low fat / Low cholesterol Discharge Activity: Return to Normal Activity DC O2, CPAP, BIPAP Needs Home O2 Discharge instructions: No Meaningful Use Info Meaningful Use Meaningful Use Diagnoses (Choose all that apply): None applicable Ischemic Stroke Statin Dosing Therapy Reference: STATIN DOSE THERAPY REFERENCE: * Patients > 75 years receive moderate or high dose statin therapy. * Patients 75 years or YOUNGER should receive HIGH intensity statin dose unless contraindicated. You will be required to document reason for non-treatment if statin daily dose does not meet guidelines. HIGH DOSE STATIN THERAPY DAILY Atorvastatin > than or = to 40 mg Rosuvastatin > than or = to 20 mg Amlodipine + Atorvastatin > than or = to 2.5/40 mg Ezetimibe + Simvastatin 10/80 mg Simvastatin 80mg Discharge Plan Admission Admit Date/Time: 11/25/24 21:27 Primary Reason for Your Visit: Vertigo/dizziness Attending Provider: Marilin Avila Primary Care Provider: Tre García Chi Consulting Providers: Norman Cerda; Dk Baltazar; Lila López; Jacqui Tinajero; Edie Lombardo; Tyler Perdomo; Jenni Lugo; Jeffery Zee; Souleymane Levin; Arcenio Schultz; Alley Prince; Kaushik Carter; Lisa Kennedy; Davdi Cooley; Christiano Cabral; Nikko Child; Esperanza Springer; Jah Carey; Khushbu Avila; Ace Alexander;Megan Garcia Discharge Orders/Prescriptions Prescriptions: New aspirin 81 mg Tablet,Chewable 81 mg PO BREAKFAST Qty: 0 0RF Continued montelukast 10 mg tablet 10 mg PO DAILY nortriptyline 50 mg capsule 50 mg PO BID polyethylene glycol 3350 17 GM powder in packet 17 g PO DAILY PRN (Reason: Constipation) Patient Comments: constipation lisinopril 5 MG tablet 5 mg PO DAILY omeprazole 10 mg capsule,delayed release(DR/EC) 40 mg PO DAILY tamsulosin 0.4 mg capsule 0.4 mg PO QHS Breztri Aerosphere 160-9-4.8 mcg/actuation HFA aerosol inhaler 2 inh INHALATION BID azithromycin 250 mg tablet 250 mg PO DAILY Referrals / Follow Up: Tyler Perdomo MD [Med Staff - Contracted] - Within 2 Weeks Tre García Chi, MD [Primary Care Provider] - Disposition Disposition (needs filled in before D/C Order can be placed): Home, Self Care Charges/Coding Visit Charges Inpatient E&M: 77866 Disch Hosp >30min 11/27/24 1338 Cosigner Signature (if applicable): CC: Dr. Marilin Avila DO; Dr. Sunny Alvares MD; Dr. Tre García MD~ Signed [facility]06-30-20[facility] Progress note Author Marilin Avila [facility] Note Date/Time November 26, 2024 3:49 pm [facility] Medical Records Department [address] [place] [address] Progress Note - Hospitalist 11/26/24 0723 MR#: [id number] Acct: [id number] Name: VALENTINA CABRERA Rep #:[id number] : 1945 79 From: Marilin Avila DO PCP: Dr. Tre García MD Status:ADM I NO Location: [place] [address]- 1 Reason for Visit Reason for Visit: Blurred vision/vertigo Subjective Subjective NIH is of 0. Patient states he is back to baseline. We discussed his MRI beingnegative. Echocardiogram is pending and anticipate that will be done tomorrow. As long as he remains stable we discussed this plan is discharge home tomorrow. Objective Data Objective Data Vital Signs: Vital Signs Temp Pulse Resp BP Pulse Ox O2 Del Method 97.7 F L 77 16 149/83 H 94 Room Air 11/26/24 06:00 11/26/24 06:00 11/26/24 06:00 11/26/24 06:00 11/26/24 06:00 11/26/24 06:00 Oxygen Delivery Method Room Air Weight: 89.8 kg Body Mass Index (BMI) 30.1 Intake & Output: Intake and Output for Last 24 Hours 11/24/24 11/25/24 11/26/24 23:59 23:59 23:59 Intake Total 1000 / 1100 100 / 100 Output Total 0 / 0 Balance 1000 / 1100 100 / 100 Lab / Micro Data 11/26/24 06:10 11/26/24 06:10 Labs: Laboratory Results - last 24 hr 11/25/24 19:55: WBC 7.8, RBC 4.49 L, Hgb 14.2, Hct 40.9, MCV 91.1, MCH 31.6, MCHC 34.7, RDW Std Deviation 45.5 H, RDW Coeff of Chucho 13.5, Plt Count 124 L, MPV9.5, Immature Gran % (Auto) 0.400, Neut % (Auto) 41.5 L, Lymph % (Auto) 52.1 H, Perkins % (Auto) 5.2, Eos % (Auto) 0.4, Baso % (Auto) 0.4, Absolute Neuts (auto) 3.2, Absolute Lymphs (auto) 4.07, Nucleated RBC % 0, PT 13.7, INR 1.0, APTT 25.8, Sodium 140, Potassium 4.4, Chloride 106, Carbon Dioxide 21.3, Anion Gap 13, BUN 21 H, Creatinine 1.15, Estim Creat Clear Calc 56.26, Est GFR (MDRD) Non-Af 64, BUN/Creatinine Ratio 18.3, Glucose 99, Calcium 9.4, Magnesium 2.2, Troponin T High Sens 39 H 11/25/24 20:11: POC Glucose 120 H 11/25/24 21:55: Troponin T Hi Sens 2 Hr 36 H 11/26/24 00:13: Troponin T Hi Sens 4Hr 35 H 11/26/24 06:10: WBC 6.3, RBC 4.33 L, Hgb 13.6, Hct 39.9 L, MCV 92.1, MCH 31.4, MCHC 34.1, RDW Std Deviation 45.8 H, RDW Coeff of Chucho 13.4, Plt Count 102 L, MPV9.3, Immature Gran % (Auto) 0.200, Neut % (Auto) 47.8, Lymph % (Auto) 46.7 H, Perkins % (Auto) 4.5, Eos % (Auto) 0.5, Baso % (Auto) 0.3, Absolute Neuts (auto) 3.0, Absolute Lymphs (auto) 2.94, Nucleated RBC % 0.3, Sodium 141, Potassium 4.5, Chloride 111 H, Carbon Dioxide 21.7, Anion Gap 9, BUN 16, Creatinine 0.94, Estim Creat Clear Calc 68.23, Est GFR (MDRD) Non-Af 82, BUN/Creatinine Ratio 17.5, Glucose 96, Hemoglobin A1c 5.3, Calcium 8.8, Total Bilirubin 0.71, AST 24,ALT 22, Alkaline Phosphatase 74, Total Protein 5.4 L, Albumin 3.6, Globulin 1.8 L, Albumin/Globulin Ratio 2.0, Triglycerides 46, Cholesterol 101, LDL Cholesterol, Calc 51, VLDL Cholesterol 9, HDL Cholesterol 41, Cholesterol/HDL Ratio 2.48, TSH 1.040 Radiography Diagnostic Testing: Radiology Impression Brain CT 11/25/24 20:13 IMPRESSION: No acute intracranial finding. Dr. Fam discussed these findings via telephone with Dr. Clifford at 8:31 pm on 11/25/24. Reading Location: [id number] Chest X-Ray 11/25/24 20:13 IMPRESSION: No significant change since last exam. Reading Location: [id number] Head/Neck CTA 11/25/24 20:14 IMPRESSION: No large vessel occlusion, aneurysm or AVM. Reading Location: [facility] Physical Exam Const alert, oriented x3, no apparent distress, average body habitus, healthy appearing and well nourished Constitutional Narrative: Very pleasant, older, white male, appears younger than stated age, lying on his right side in bed resting comfortably but awakens easily and interacts appropriately HEENT head/scalp atraumatic and moist oral mucous membranes HEENT Narrative: Mallampati 2, no thrush Head and Scalp: normocephalic Resp normal respiratory effort, no retractions, no use of accessory muscles and clearto auscultation bilaterally Auscultation: Negative for crackles, rhonchi or wheezes Cardio regular rate, regular rhythm, S1 normal heart sound, S2 normal heart sound, no murmurs, no rub, no gallops and no clicks GI normal to inspection, nondistended, normoactive bowel sounds, soft to palpation and non-tender Extremity no clubbing, cyanosis or edema Neuro oriented x3, CN's II-XII intact bilaterally, moves all extremities and no focal motor deficits Speech: speech normal Psych affect normal Psych Narrative: Very pleasant, interacts appropriately Assessment & Plan Assessment/Plan (1) Change in vision: (2) Dizziness: (3) Elevated troponin: PLAN: Plan Change in vision/vertigo - MRI is negative - Neurology has evaluated the patient and feels that this is likely related to his elevated blood pressure versus presyncope and symptoms should be monitored with outpatient BP check with PCP as follow-up - Echocardiogram is pending for tomorrow - Continue aspirin - Continue atorvastatin - Continue NIH is with less frequency to ensure he remained stable - PT and OT have evaluated the patient and he is doing clinically well - NIH is 0 - Neuro has evaluated the patient and appreciate input - Probable discharge on 11/27/2024 Thrombocytopenia - Lab appears to fluctuate - Repeat CBC in a.m. 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 History of tobacco abuse - Remote and recommend ongoing cessation Obesity - BMI is 30.1 - Complicates treatment, prognosis, outcomes - Recommend weight loss DVT prophylaxis - Continue Lovenox CODE STATUS - Full code Charges/Coding Visit Charges Inpatient E&M: 47774 Subs Hosp L2 NIHSS NIHSS Nursing Documentation NIHSS Nursing Documentation: NIH Stroke Scale Start: 11/25/24 20:09 Freq: Status: Discharge Protocol: Activity Type Activity Date Activity User E-sign Co-sign Detail Recorded Client Recorded Date Recorded By Document 11/25/24 20:09 ET [id number] 11/25/24 20:10 ET 11/25/24 20:09 NIH Stroke Scale [NIHSS] A score of 0 is normal or asymptomatic . Total possible score is 42. Inpatient: RN or Physician to activate a stroke alert for onset of new stroke symptoms or with NIHSS increase >/= 3 points. Following change in neurological status, NIHSS will be performed per physician order or more frequently PRN. -1a. Level of Consciousness 0 - Alert; keenly responsive -1b. LOC Questions 0 - Answers BOTH questions correctly -1c. LOC Commands 0 - Performs BOTH tasks correctly -2. Best Gaze 0 - Normal -3. Visual 0 - No visual loss -4. Facial Palsy 0 - Normal symmetrical movements -5a. Left Arm 0 - No drift; arm holds 90 ( or 45) degrees for full 10 seconds -5b. Right Arm 0 - No drift; arm holds 90 ( or 45) degrees for full 10 seconds -6a. Left Leg 0 - No drift; leg holds 30- degree position for full 5 seconds -6b. Right Leg 0 - No drift; leg holds 30- degree position for full 5 seconds -7. Limb Ataxia 0 - Absent -8. Sensory 0 - Normal; no sensory loss -9. Best Language 0 - No aphasia; normal -10. Dysarthria 0 - Normal -11. Extinction and Inattention 0 - No abnormality -Total 0 Query Text:A score of 0 is normal or asymptomatic. Total possible score is 42 . ED: Notify Physician for NIHSS increase by > / = 3 points. Inpatient: RN or Physician to activate a stroke alert for NIHSS increase of > / = 3 points. NIHSS: Ischemic Stroke/TIA Start: 11/25/24 22:33 Text: For PCU Patients: NIH and Neuro Check every 4 Status: Active hours, PRN and with change in RN caregiver. Freq: [id number] Protocol: Activity Type Activity Date Activity User E-sign Co-sign Detail Recorded Client Recorded Date Recorded By Document 11/26/24 06:00 RPS [id number] 11/26/24 06:46 RPS 11/26/24 06:00 -1a. Level of Consciousness 0 - Alert; keenly responsive -1b. LOC Questions 0 - Answers BOTH questions correctly -1c. LOC Commands 0 - Performs BOTH tasks correctly -2. Best Gaze 0 - Normal -3. Visual 0 - No visual loss -4. Facial Palsy 0 - Normal symmetrical movements -5a. Left Arm 0 - No drift; arm holds 90 ( or 45) degrees for full 10 seconds -5b. Right Arm 0 - No drift; arm holds 90 ( or 45) degrees for full 10 seconds -6a. Left Leg 0 - No drift; leg holds 30- degree position for full 5 seconds -6b. Right Leg 0 - No drift; leg holds 30- degree position for full 5 seconds -7. Limb Ataxia 0 - Absent -8. Sensory 0 - Normal; no sensory loss -9. Best Language 0 - No aphasia; normal -10. Dysarthria 0 - Normal -11. Extinction and Inattention 0 - No abnormality -Total 0 Query Text:A score of 0 is normal or asymptomatic. Total possible score is 42 . ED: Notify Physician for NIHSS increase by > / = 3 points. Inpatient: RN or Physician to activate a stroke alert for NIHSS increase of > / = 3 points. Coma Scale [Assess] -Eye Opening Spontaneous -Motor Obeys Commands -Verbal Oriented [Total] -Coma Scale Total 15 11/26/24 1549 <Electronically signed by Marilin Avila DO> Cosigner Signature (if applicable): CC: ~ Signed [facility] Work Phone: [phone]) 274-757606-29-2025 Progress note [facility] Medical Records Department [address] [place] [address] Progress Note - Hospitalist 11/26/24 9963 MR#: [id number] Acct: [id number] Name: VALENTINA CABRERA Rep #:[id number] : 1945 79 From: Marilin Avila DO PCP: Dr. Tre García MD Status:ADM I NO Location: [place] [address] Reason for Visit Reason for Visit: Blurred vision/vertigo Subjective Subjective NIH is of 0. Patient states he is back to baseline. We discussed his MRI beingnegative. Echocardiogram is pending and anticipate that will be done tomorrow. As long as he remains stable we discussed this plan is discharge home tomorrow. Objective Data Objective Data Vital Signs: Vital Signs Temp Pulse Resp BP Pulse Ox O2 Del Method 97.7 F L 77 16 149/83 H 94 Room Air 11/26/24 06:00 11/26/24 06:00 11/26/24 06:00 11/26/24 06:00 11/26/24 06:00 11/26/24 06:00 Oxygen Delivery Method Room Air Weight: 89.8 kg Body Mass Index (BMI) 30.1 Intake & Output: Intake and Output for Last 24 Hours 11/24/24 11/25/24 11/26/24 23:59 23:59 23:59 Intake Total 1000 / 1100 100 / 100 Output Total 0 / 0 Balance 1000 / 1100 100 / 100 Lab / Micro Data 11/26/24 06:10 11/26/24 06:10 Labs: Laboratory Results - last 24 hr 11/25/24 19:55: WBC 7.8, RBC 4.49 L, Hgb 14.2, Hct 40.9, MCV 91.1, MCH 31.6, MCHC 34.7, RDW Std Deviation 45.5 H, RDW Coeff of Chucho 13.5, Plt Count 124 L, MPV9.5, Immature Gran % (Auto) 0.400, Neut % (Auto) 41.5 L, Lymph % (Auto) 52.1 H, Perkins % (Auto) 5.2, Eos % (Auto) 0.4, Baso % (Auto) 0.4, Absolute Neuts (auto) 3.2, Absolute Lymphs (auto) 4.07, Nucleated RBC % 0, PT 13.7, INR 1.0, APTT 25.8, Sodium 140, Potassium 4.4, Chloride 106, Carbon Dioxide 21.3, Anion Gap 13, BUN 21 H, Creatinine 1.15,Estim Creat Clear Calc 56.26, Est GFR (MDRD) Non- Af 64, BUN/Creatinine Ratio 18.3, Glucose 99, Calcium 9.4, Magnesium 2.2, Troponin T High Sens 39 H 11/25/24 20:11: POC Glucose 120 H 11/25/24 21:55: Troponin T Hi Sens 2 Hr 36 H 11/26/24 00:13: Troponin T Hi Sens 4Hr 35 H 11/26/24 06:10: WBC 6.3, RBC 4.33 L, Hgb 13.6, Hct 39.9 L, MCV 92.1, MCH 31.4, MCHC 34.1, RDW Std Deviation 45.8 H, RDW Coeff of Chucho 13.4, Plt Count 102 L, MPV9.3, Immature Gran % (Auto) 0.200, Neut % (Auto) 47.8, Lymph % (Auto) 46.7 H, Perkins % (Auto) 4.5, Eos % (Auto) 0.5, Baso % (Auto) 0.3, Absolute Neuts (auto) 3.0, Absolute Lymphs (auto) 2.94, Nucleated RBC % 0.3, Sodium 141, Potassium 4.5, Chloride 111 H, Carbon Dioxide 21.7, Anion Gap 9, BUN 16, Creatinine 0.94, Estim Creat Clear Calc 68.23, Est GFR (MDRD) Non-Af 82, BUN/Creatinine Ratio 17.5, Glucose 96, Hemoglobin A1c 5.3, Calcium 8.8,Total Bilirubin 0.71, AST 24,ALT 22, Alkaline Phosphatase 74, Total Protein 5.4 L, Albumin 3.6, Globulin 1.8 L, Albumin/Globulin Ratio 2.0, Triglycerides 46, Cholesterol 101, LDL Cholesterol, Calc 51, VLDL Cholesterol 9, HDL Cholesterol 41, Cholesterol/HDL Ratio 2.48, TSH 1.040 Radiography Diagnostic Testing: Radiology Impression Brain CT 11/25/24 20:13 IMPRESSION: No acute intracranial finding. Dr. Fam discussed these findings via telephone with Dr. Clifford at 8:31 pm on 11/25/24. Reading Location: [facility] Chest X-Ray 11/25/24 20:13 IMPRESSION: No significant change since last exam. Reading Location: [facility] Head/Neck CTA 11/25/24 20:14 IMPRESSION: No large vessel occlusion, aneurysm or AVM. Reading Location: [facility] Physical Exam Const alert, oriented x3, no apparent distress, average body habitus, healthy appearing and well nourished Constitutional Narrative: Very pleasant, older, white male, appears younger than stated age, lying on his right side in bed resting comfortably but awakens easily and interacts appropriately HEENT head/scalp atraumatic and moist oral mucous membranes HEENT Narrative: Mallampati 2, no thrush Head and Scalp: normocephalic Resp normal respiratory effort, no retractions, no use of accessory muscles and clearto auscultation bilaterally Auscultation: Negative for crackles, rhonchi or wheezes Cardio regular rate, regular rhythm, S1 normal heart sound, S2 normal heart sound, no murmurs, no rub, no gallops and no clicks GI normal to inspection, nondistended, normoactive bowel sounds, soft to palpation and non-tender Extremity no clubbing, cyanosis or edema Neuro oriented x3, CN's II-XII intact bilaterally, moves all extremities and no focal motor deficits Speech: speech normal Psych affect normal Psych Narrative: Very pleasant, interacts appropriately Assessment & Plan Assessment/Plan (1) Change in vision: (2) Dizziness: (3) Elevated troponin: PLAN: Plan Change in vision/vertigo - MRI is negative - Neurology has evaluated the patient and feels that this is likely related to his elevated blood pressure versus presyncope and symptoms should be monitored with outpatient BP check with PCP as follow-up - Echocardiogram is pending for tomorrow - Continue aspirin - Continue atorvastatin - Continue NIH is with less frequency to ensure he remained stable - PT and OT have evaluated the patient and he is doing clinically well - NIH is 0 - Neuro has evaluated the patient and appreciate input - Probable discharge on 11/27/2024 Thrombocytopenia - Lab appears to fluctuate - Repeat CBC in a.m. 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 History of tobacco abuse - Remote and recommend ongoing cessation Obesity - BMI is 30.1 - Complicates treatment, prognosis, outcomes - Recommend weight loss DVT prophylaxis - Continue Lovenox CODE STATUS - Full code Charges/Coding Visit Charges Inpatient E&M: 42683 Subs Hosp L2 NIHSS NIHSS Nursing Documentation NIHSS Nursing Documentation: NIH Stroke Scale Start: 11/25/24 20:09 Freq: Status: Discharge Protocol: Activity Type Activity Date Activity User E-sign Co-sign Detail Recorded Client Recorded Date Recorded By Document 11/25/24 20:09 ET [id number] 11/25/24 20:10 ET 11/25/24 20:09 NIH Stroke Scale [NIHSS] A score of 0 is normal or asymptomatic . Total possible score is 42. Inpatient: RN or Physician to activate a stroke alert for onset of new stroke symptoms or with NIHSS increase >/= 3 points. Following change in neurological status, NIHSS will be performed per physician order or more frequently PRN. -1a. Level of Consciousness 0 - Alert; keenly responsive -1b. LOC Questions 0 - Answers BOTH questions correctly -1c. LOC Commands 0 - Performs BOTH tasks correctly -2. Best Gaze 0 - Normal -3. Visual 0 - No visual loss -4. Facial Palsy 0 - Normal symmetrical movements -5a. Left Arm 0 - No drift; arm holds 90 ( or 45) degrees for full 10 seconds -5b. Right Arm 0 - No drift; arm holds 90 ( or 45) degrees for full 10 seconds -6a. Left Leg 0 - No drift; leg holds 30- degree position for full 5 seconds -6b. Right Leg 0 - No drift; leg holds 30- degree position for full 5 seconds -7. Limb Ataxia 0 - Absent -8. Sensory 0 - Normal; no sensory loss -9. Best Language 0 - No aphasia; normal -10. Dysarthria 0 - Normal -11. Extinction and Inattention 0 - No abnormality -Total 0 Query Text:A score of 0 is normal or asymptomatic. Total possible score is 42 . ED: Notify Physician for NIHSS increase by > / = 3 points. Inpatient: RN or Physician to activate a stroke alert for NIHSS increase of > / = 3 points. NIHSS: Ischemic Stroke/TIA Start: 11/25/24 22:33 Text: For PCU Patients: NIH and Neuro Check every 4 Status: Active hours, PRN and with change in RN caregiver. Freq: [id number] Protocol: Activity Type Activity Date Activity User E-sign Co-sign Detail Recorded Client Recorded Date Recorded By Document 11/26/24 06:00 [facility] [id number] 11/26/24 06:46 RPS 11/26/24 06:00 -1a. Level of Consciousness 0 - Alert; keenly responsive -1b. LOC Questions 0 - Answers BOTH questions correctly -1c. LOC Commands 0 - Performs BOTH tasks correctly -2. Best Gaze 0 - Normal -3. Visual 0 - No visual loss -4. Facial Palsy 0 - Normal symmetrical movements -5a. Left Arm 0 - No drift; arm holds 90 ( or 45) degrees for full 10 seconds -5b. Right Arm 0 - No drift; arm holds 90 ( or 45) degrees for full 10 seconds -6a. Left Leg 0 - No drift; leg holds 30- degree position for full 5 seconds -6b. Right Leg 0 - No drift; leg holds 30- degree position for full 5 seconds -7. Limb Ataxia 0 - Absent -8. Sensory 0 - Normal; no sensory loss -9. Best Language 0 - No aphasia; normal -10. Dysarthria 0 - Normal -11. Extinction and Inattention 0 - No abnormality -Total 0 Query Text:A score of 0 is normal or asymptomatic. Total possible score is 42 . ED: Notify Physician for NIHSS increase by > / = 3 points. Inpatient: RN or Physician to activate a stroke alert for NIHSS increase of > / = 3 points. Coma Scale [Assess] -Eye Opening Spontaneous -Motor Obeys Commands -Verbal Oriented [Total] -Coma Scale Total 15 11/26/24 1649 Cosigner Signature (if applicable): CC: ~ Signed [facility]06-29-2025 Consult note Author Arcenio Schultz [facility] Note Date/Time November 26, 2024 11:2 0am [facility] Medical Records Department [address] [place] [address] Consultation - Neurology 11/26/24 1105 MR#: [id number] Acct: [id number] Name: VALENTINA CABRERA Rep #:[id number] : 1945 79 From: Arcenio Olmedo PCP: Dr. Tre García MD Status:ADM I NO Location: [place] [address] Assessment and Plan: Stroke Assessment/Plan Assessment: - Clinically this does NOT sound like a stroke or TIA, the vision was not described as a visual field cut but more positive phenomenon (fuzzy and squgglies), no focal deficits (gen weakness), he could speak with no dysarthria (but getting words out was hard). This sounds more presyncope vs HTN crisis. He denies any recent illness or changes to meds. Plan: - Recommend MRI brain and TTE just to ensure nothing is being missed. If unrevealing, likely HTN crisis vs presyncope and should just monitor symptoms, monitor BP and f/u with pcp. HPI Consult Data Date of Consult: 11/26/24 HPI Narrative HPI Narrative: VALENTINA CABRERA, is a 79 M who is a former tobacco use, CKD, BPH with obstructive pathology, HTN, HLD, Anxiety and Depression, Chronic lumbar back pain, Asthma with allergic rhinitis, GERD who presents to the [facility] ED on 11/25/2024 with visual disturbances, vertigo and generalized weakness. He was at home watching tv when his vision got fuzzy and saw squigglies, then room started spinning, generalized weakness and had a hard timegetting words out but could speak. Never happened before. Per family SBP 190s atthat time. It lasted about 30min and returned to baseline. CTH/CTA neg. Clinically this does NOT sound like a stroke or TIA, the vision was not described as a visual field cut but more positive phenomenon (fuzzy and squgglies), no focal deficits (gen weakness), he could speak with no dysarthria (but getting words out was hard). This sounds more presyncope vs HTN crisis. He denies any recent illness or changes to meds. Recommend MRI brain and TTE just to ensure nothing is being missed. If unrevealing, likely HTN crisis vs presyncope and should just monitor symptoms, monitor BP and f/u with pcp. [facility] Medical History (Updated 11/25/24 @ 22:59 by Judith Chapa) COPD (chronic obstructive pulmonary disease) Former tobacco use Obesity CKD (chronic kidney disease), stage II Allergic rhinitis Anxiety and depression Constipation Chronic low back pain BPH (benign prostatic hyperplasia) Hyperlipidemia Asthma COVID-19 Hypertension GERD (gastroesophageal reflux disease) Home Medications ?Medication ?Instructions ?Recorded ?Last Taken ?Type polyethylene glycol 3350 17 gram 17 g PO DAILY PRN Con stipation 04/19/13 04/19/13 07:00 History oral powder packet lisinopril 5 mg tablet 5 mg PO DAILY 08/28/20 Unkno wn History tamsulosin 0.4 mg capsule 0.4 mg PO QHS 06/16/21 Unkno wn History montelukast 10 mg tablet 10 mg PO DAILY 05/06/23 Unkn own History nortriptyline 50 mg capsule 50 mg PO BID 06/02/23 Unkn own History omeprazole 10 mg capsule,delayed 40 mg PO DAILY Unknown History release azithromycin 250 mg tablet 250 mg PO DAILY 11/25/24 Un known History budesonide 160 mcg-glycopyr 9 2 inh inhalation BID Unknown History mcg-formot 4.8 mcg/actuation HFA inhaler (Breztri Aerosphere) Allergy/AdvReac Type Severity Reaction Status Date / Time No Known Allergies Allergy Verified 11/25/24 20:06 Family History Mother Depression CVA (cerebral vascular accident) Anxiety Hypertension Father Pancreatic cancer Surgical History Hx of cataract extraction Social History (Updated 11/25/24 @ 21:[address] Megan Garcia MD) household members: spouse Smoking Status: Former smoker how long ago did patient quit smoking: Quit 1974, smoked cigars only. alcohol intake: never substance use type: does not use Vital Signs Vital Signs Vital Signs: 11/25/24 20:06 11/25/24 20:13 11/25/24 20:18 Temperature 97.9 F Temperature Source Oral Pulse Rate 85 86 Respiratory Rate 13 16 Respiratory Effort Respiratory Depth Respiratory Pattern Blood Pressure 133/74 H 133/74 H Blood Pressure Mean 93 93 Blood Pressure Source Blood Pressure Position Blood Pressure Location Pulse Ox 93 93 Oxygen Delivery Method Room Air Room Air Room Air 11/25/24 20:28 11/25/24 20:43 11/25/24 21:13 Temperature Temperature Source Pulse Rate 91 90 88 Respiratory Rate 25 H 15 13 Respiratory Effort Respiratory Depth Respiratory Pattern Blood Pressure 115/92 H 133/80 H 141/74 H Blood Pressure Mean 99 97 96 Blood Pressure Source Blood Pressure Position Blood Pressure Location Pulse Ox 95 92 97 Oxygen Delivery Method Room Air Room Air Room Air 11/25/24 21:51 11/25/24 22:35 11/25/24 23:00 Temperature 98.2 F 97.6 F L Temperature Source Oral Pulse Rate 87 81 Respiratory Rate 16 16 Respiratory Effort Normal Respiratory Depth Normal Respiratory Pattern Normal Blood Pressure 136/78 H 144/76 H Blood Pressure Mean 97 98 Blood Pressure Source Monitor Blood Pressure Position Semi-Fowlers Blood Pressure Location Right Arm Pulse Ox 95 97 Oxygen Delivery Method Room Air Room Air 11/26/24 01:00 11/26/24 02:00 11/26/24 04:51 Temperature 98 F Temperature Source Oral Pulse Rate 83 Respiratory Rate 16 Respiratory Effort Normal Respiratory Depth Normal Respiratory Pattern Normal Blood Pressure 137/72 H Blood Pressure Mean 93 Blood Pressure Source Monitor Blood Pressure Position Semi-Fowlers Blood Pressure Location Right Arm Pulse Ox 94 95 Oxygen Delivery Method Room Air Room Air Room Air 11/26/24 06:00 11/26/24 09:46 Temperature 97.7 F L 98.3 F Temperature Source Oral Oral Pulse Rate 77 82 Respiratory Rate 16 16 Respiratory Effort Respiratory Depth Respiratory Pattern Blood Pressure 149/83 H 134/73 H Blood Pressure Mean 105 93 Blood Pressure Source Monitor Monitor Blood Pressure Position Semi-Fowlers Semi-Fowlers Blood Pressure Location Right Arm Right Arm Pulse Ox 94 93 Oxygen Delivery Method Room Air Room Air Weight Weight: 89.8 kg Body Mass Index (BMI) 30.1 Physical Exam Narrative - General: NAD, pleasant, cooperative, well nourished, well developed - Head/Eyes: Atraumatic, normocephalic, clear cornea, normal sclera/conjunctive - Neuro: ? Mental Status: AAOX4 & following simple commands. ? Speech: Clear and fluent with good repetition, comprehension, & naming. No aphasia or dysarthria ? CN II: Visual zimmerman are full to confrontation. ? CN III, IV, : EOMI, no gaze preference, no nystagmus, no ptosis ? CN V: Facial sensation is intact to light touch throughout. ? CN VII: Face is symmetric with normal eye closure and smile. ? CN VII: Hearing is grossly normal to conversational speech. ? Motor: Able to sustain all limbs ? Sensation: Normal to light touch bilaterally. ? Coordination: Normal FTN & HTS. No abn movements seen. ? Lab / Micro Data 11/26/24 06:10 11/26/24 06:10 Labs: Laboratory Results - last 24 hr 11/25/24 19:55: WBC 7.8, RBC 4.49 L, Hgb 14.2, Hct 40.9, MCV 91.1, MCH 31.6, MCHC 34.7, RDW Std Deviation 45.5 H, RDW Coeff of Chucho 13.5, Plt Count 124 L, MPV9.5, Immature Gran % (Auto) 0.400, Neut % (Auto) 41.5 L, Lymph % (Auto) 52.1 H, Perkins % (Auto) 5.2, Eos % (Auto) 0.4, Baso % (Auto) 0.4, Absolute Neuts (auto) 3.2, Absolute Lymphs (auto) 4.07, Nucleated RBC % 0, PT 13.7, INR 1.0, APTT 25.8, Sodium 140, Potassium 4.4, Chloride 106, Carbon Dioxide 21.3, Anion Gap 13, BUN 21 H, Creatinine 1.15, Estim Creat Clear Calc 56.26, Est GFR (MDRD) Non-Af 64, BUN/Creatinine Ratio 18.3, Glucose 99, Calcium 9.4, Magnesium 2.2, Troponin T High Sens 39 H 11/25/24 20:11: POC Glucose 120 H 11/25/24 21:55: Troponin T Hi Sens 2 Hr 36 H 11/26/24 00:13: Troponin T Hi Sens 4Hr 35 H 11/26/24 06:10: WBC 6.3, RBC 4.33 L, Hgb 13.6, Hct 39.9 L, MCV 92.1, MCH 31.4, MCHC 34.1, RDW Std Deviation 45.8 H, RDW Coeff of Chucho 13.4, Plt Count 102 L, MPV9.3, Immature Gran % (Auto) 0.200, Neut % (Auto) 47.8, Lymph % (Auto) 46.7 H, Perkins % (Auto) 4.5, Eos % (Auto) 0.5, Baso % (Auto) 0.3, Absolute Neuts (auto) 3.0, Absolute Lymphs (auto) 2.94, Nucleated RBC % 0.3, Sodium 141, Potassium 4.5, Chloride 111 H, Carbon Dioxide 21.7, Anion Gap 9, BUN 16, Creatinine 0.94, Estim Creat Clear Calc 68.23, Est GFR (MDRD) Non-Af 82, BUN/Creatinine Ratio 17.5, Glucose 96, Hemoglobin A1c 5.3, Calcium 8.8, Total Bilirubin 0.71, AST 24,ALT 22, Alkaline Phosphatase 74, Total Protein 5.4 L, Albumin 3.6, Globulin 1.8 L, Albumin/Globulin Ratio 2.0, Triglycerides 46, Cholesterol 101, LDL Cholesterol, Calc 51, VLDL Cholesterol 9, HDL Cholesterol 41, Cholesterol/HDL Ratio 2.48, TSH 1.040 Imaging Radiology Impression Brain CT 11/25/24 20:13 IMPRESSION: No acute intracranial finding. Dr. Fam discussed these findings via telephone with Dr. Clifford at 8:31 pm on 11/25/24. Reading Location: [id number] Chest X-Ray 11/25/24 20:13 IMPRESSION: No significant change since last exam. Reading Location: [id number] Head/Neck CTA 11/25/24 20:14 IMPRESSION: No large vessel occlusion, aneurysm or AVM. Reading Location: [facility] Active Medications Active Medications Active Medications: Current Medications Generic Name Dose Route Start Last Admin Trade Name Freq PRN Reason Stop Dose Admin Acetaminophen 650 mg 11/25/24 22:33 Acetaminophen 325 Mg Tablet PO Q4H PRN PRN Fever, pain 1-03/09 Al Hydroxide/Mg Hydroxide 30 ml 11/25/24 22:33 Mag Hydrox/Al Hydrox/Simeth 30 Ml Udc PO Q6H PRN PRN Gastric Burning Albuterol Sulfate 2.5 mg 11/25/24 22:33 Albuterol 2.5 Mg/3 Ml Vial.Neb. INHALATION Q2H PRN PRN Dyspnea, wheezing Albuterol/Ipratropium 3 ml 11/26/24 08:45 Ipratropium/Albuterol Sulfate 3 Ml Ampul.Neb INHALATION Q6HWA.RT SHANNON Aspirin 81 mg 11/26/24 08:00 11/26/24 09:57 Aspirin 81 Mg Tab.Chew PO 81 mg BREAKFAST SHANNON Administration Atorvastatin Calcium 40 mg 11/25/24 22:33 11/25/24 23:46 Atorvastatin Calcium 40 Mg Tablet PO 40 mg QHS SHANNON Administration Azithromycin 250 mg 11/26/24 10:00 11/26/24 10:07 Azithromycin 250 Mg Tablet PO 250 mg DAILY SHANNON Administration Budesonide 0.5 mg 11/25/24 22:33 Budesonide Respules 0.5 Mg/2 Ml Ampul.Neb. INHALATION BID.RT SHANNON Enoxaparin Sodium 40 mg 11/26/24 10:00 11/26/24 09:55 Enoxaparin 40 Mg/0.4 Ml Syringe SC 40 mg DAILY SHANNON Administration Guaifenesin 20 ml 11/25/24 22:33 Guaifenesin 10 Ml Udc (200mg/10ml) PO Q4H PRN PRN COUGH Hydralazine HCl 5 mg 11/25/24 22:33 Hydralazine 20 Mg/Ml Vial IV 11/26/24 22:33 Q30M PRN maintain BP parameters with HR <60 Sodium Chloride 250 mls @ 15 mls/hr 11/25/24 22:42 IV .[id number] PRN Saline Flush Sodium Chloride 250 mls @ 15 mls/hr 11/25/24 22:42 IV .[id number] PRN Additional IVPB Infusion Labetalol HCl 10 - 20 mg 11/25/24 22:33 Labetalol 20 Mg/4 Ml Vial IV 11/26/24 22:33 Q10M PRN PRN maintain BP parameters with HR >/=60 Melatonin 3 mg 11/25/24 22:33 Melatonin 3 Mg Tablet PO QHS PRN PRN INSOMNIA Montelukast Sodium 10 mg 11/26/24 10:00 11/26/24 09:56 Montelukast 10 Mg Tablet PO 10 mg DAILY SHANNON Administration Nortriptyline HCl 50 mg 11/25/24 23:00 11/26/24 09:56 Nortriptyline 25 Mg Capsule PO 50 mg BID SHANNON Administration Ondansetron HCl 4 mg 11/25/24 22:33 Ondansetron 4 Mg/2 Ml Vial IV Q8H PRN PRN NAUSEA/VOMITING Pantoprazole Sodium 40 mg 11/26/24 10:00 11/26/24 09:56 Pantoprazole Sodium 40 Mg Tablet PO 40 mg DAILY SHANNON Administration Polyethylene Glycol 17 gm 11/25/24 22:33 Polyethylene Glycol 3350 17 Gm Packet PO DAILY PRN PRN Constipation Prochlorperazine Edisylate 5 mg 11/25/24 22:33 Prochlorperazine 10 Mg/2 Ml Vial IV Q4H PRN PRN Breakthrough Nausea/Vomiting Sodium Chloride 10 - 40 ml 11/25/24 22:42 0.9% Saline Lock 10 Ml Syringe IV UD PRN SALINE FLUSH Tamsulosin HCl 0.4 mg 11/25/24 22:33 11/25/24 23:46 Tamsulosin Hcl 0.4 Mg Capsule PO 0.4 mg QHS SHANNON Administration NIHSS NIHSS Nursing Documentation NIHSS Nursing Documentation: NIH Stroke Scale Start: 11/25/24 20:09 Freq: Status: Discharge Protocol: Activity Type Activity Date Activity User E-sign Co-sign Detail Recorded Client Recorded Date Recorded By Document 11/25/24 20:09 ET [id number] 11/25/24 20:10 ET 11/25/24 20:09 NIH Stroke Scale [NIHSS] A score of 0 is normal or asymptomatic . Total possible score is 42. Inpatient: RN or Physician to activate a stroke alert for onset of new stroke symptoms or with NIHSS increase >/= 3 points. Following change in neurological status, NIHSS will be performed per physician order or more frequently PRN. -1a. Level of Consciousness 0 - Alert; keenly responsive -1b. LOC Questions 0 - Answers BOTH questions correctly -1c. LOC Commands 0 - Performs BOTH tasks correctly -2. Best Gaze 0 - Normal -3. Visual 0 - No visual loss -4. Facial Palsy 0 - Normal symmetrical movements -5a. Left Arm 0 - No drift; arm holds 90 ( or 45) degrees for full 10 seconds -5b. Right Arm 0 - No drift; arm holds 90 ( or 45) degrees for full 10 seconds -6a. Left Leg 0 - No drift; leg holds 30- degree position for full 5 seconds -6b. Right Leg 0 - No drift; leg holds 30- degree position for full 5 seconds -7. Limb Ataxia 0 - Absent -8. Sensory 0 - Normal; no sensory loss -9. Best Language 0 - No aphasia; normal -10. Dysarthria 0 - Normal -11. Extinction and Inattention 0 - No abnormality -Total 0 Query Text:A score of 0 is normal or asymptomatic. Total possible score is 42 . ED: Notify Physician for NIHSS increase by > / = 3 points. Inpatient: RN or Physician to activate a stroke alert for NIHSS increase of > / = 3 points. NIHSS: Ischemic Stroke/TIA Start: 11/25/24 22:33 Text: For PCU Patients: NIH and Neuro Check every 4 Status: Active hours, PRN and with change in RN caregiver. Freq: [id number] Protocol: Activity Type Activity Date Activity User E-sign Co-sign Detail Recorded Client Recorded Date Recorded By Document 11/26/24 10:00 AD [id number] 11/26/24 10:12 AD 11/26/24 10:00 -1a. Level of Consciousness 0 - Alert; keenly responsive -1b. LOC Questions 0 - Answers BOTH questions correctly -1c. LOC Commands 0 - Performs BOTH tasks correctly -2. Best Gaze 0 - Normal -3. Visual 0 - No visual loss -4. Facial Palsy 0 - Normal symmetrical movements -5a. Left Arm 0 - No drift; arm holds 90 ( or 45) degrees for full 10 seconds -5b. Right Arm 0 - No drift; arm holds 90 ( or 45) degrees for full 10 seconds -6a. Left Leg 0 - No drift; leg holds 30- degree position for full 5 seconds -6b. Right Leg 0 - No drift; leg holds 30- degree position for full 5 seconds -7. Limb Ataxia 0 - Absent -8. Sensory 0 - Normal; no sensory loss -9. Best Language 0 - No aphasia; normal -10. Dysarthria 0 - Normal -11. Extinction and Inattention 0 - No abnormality -Total 0 Query Text:A score of 0 is normal or asymptomatic. Total possible score is 42 . ED: Notify Physician for NIHSS increase by > / = 3 points. Inpatient: RN or Physician to activate a stroke alert for NIHSS increase of > / = 3 points. Coma Scale [Assess] -Eye Opening Spontaneous -Motor Obeys Commands -Verbal Oriented [Total] -Coma Scale Total 15 11/26/24 1120 <Electronically signed by Arcenio Schultz MD> Cosigner Signature (if applicable): CC: Dr. Tre García MD; Dr. Neo Clifford, DO~ Signed [facility] Work Phone: [phone] 615-530206-29-2025 Consult note [facility] Medical Records Department [address] [place] [address] Consultation - Neurology 11/26/24 1105 MR#: [id number] Acct: [id number] Name: VALENTINA CABRERA Rep #:[id number] : 1945 79 From: Arcenio Olmedo PCP: Dr. Tre García MD Status:ADM I NO Location: [place] [address] Assessment and Plan: Stroke Assessment/Plan Assessment: - Clinically this does NOT sound like a stroke or TIA, the vision was not described as a visual field cut but more positive phenomenon (fuzzy and squgglies), no focal deficits (gen weakness), he could speak with no dysarthria (but getting words out was hard). This sounds more presyncope vs HTN crisis. He denies any recent illness or changes to meds. Plan: - Recommend MRI brain and TTE just to ensure nothing is being missed. If unrevealing, likely HTN crisis vs presyncope and should just monitor symptoms, monitor BP and f/u with pcp. HPI Consult Data Date of Consult: 11/26/24 HPI Narrative HPI Narrative: VALENTINA CABRERA, is a 79 M who is a former tobacco use, CKD, BPH with obstructive pathology, HTN,HLD, Anxiety and Depression, Chronic lumbar back pain, Asthma with allergic rhinitis, GERD who presents to the [facility] ED on 11/25/2024 with visual disturbances, vertigo and generalized weakness. He was at home watching tv when his vision got fuzzy and saw squigglies, then room started spinning, generalized weakness and had a hard timegetting words out but could speak. Never happened before. Per family SBP 190s atthat time. It lasted about 30min and returned to baseline. CTH/CTA neg. Clinically this does NOT sound like a stroke or TIA, the vision was not described as a visual field cut but more positive phenomenon (fuzzy and squgglies), no focal deficits (gen weakness), hecould speak with no dysarthria (but getting words out was hard). This sounds more presyncope vs HTNcrisis. He denies any recent illness or changes to meds. Recommend MRI brain and TTE just to ensurenothing is being missed. If unrevealing, likely HTN crisis vs presyncope and should just monitor symptoms, monitor BP and f/u with pcp. [facility] Medical History (Updated 11/25/24 @ 22:59 by Judith Chapa) COPD (chronic obstructive pulmonary disease) Former tobacco use Obesity CKD (chronic kidney disease), stage II Allergic rhinitis Anxiety and depression Constipation Chronic low back pain BPH (benign prostatic hyperplasia) Hyperlipidemia Asthma COVID-19 Hypertension GERD (gastroesophageal reflux disease) Home Medications ?Medication ?Instructions ?Recorded ?Last Taken ?Type polyethylene glycol 3350 17 gram 17 g PO DAILY PRN Con stipation 04/19/13 04/19/13 07:00 History oral powder packet lisinopril 5 mg tablet 5 mg PO DAILY 08/28/20 Unkno wn History tamsulosin 0.4 mg capsule 0.4 mg PO QHS 06/16/21 Unkno wn History montelukast 10 mg tablet 10 mg PO DAILY 05/06/23 Unkn own History nortriptyline 50 mg capsule 50 mg PO BID 06/02/23 Unkn own History omeprazole 10 mg capsule,delayed 40 mg PO DAILY Unknown History release azithromycin 250 mg tablet 250 mg PO DAILY 11/25/24 Un known History budesonide 160 mcg-glycopyr 9 2 inh inhalation BID Unknown History mcg-formot 4.8 mcg/actuation HFA inhaler (Breztri Aerosphere) Allergy/AdvReac Type Severity Reaction Status Date / Time No Known Allergies Allergy Verified 11/25/24 20:06 Family History Mother Depression CVA (cerebral vascular accident) Anxiety Hypertension Father Pancreatic cancer Surgical History Hx of cataract extraction Social History (Updated 11/25/24 @ 21:[address] Megan Garcia MD) household members: spouse Smoking Status: Former smoker how long ago did patient quit smoking: Quit 1974, smoked cigars only. alcohol intake: never substance use type: does not use Vital Signs Vital Signs Vital Signs: 11/25/24 20:06 11/25/24 20:13 11/25/24 20:18 Temperature 97.9 F Temperature Source Oral Pulse Rate 85 86 Respiratory Rate 13 16 Respiratory Effort Respiratory Depth Respiratory Pattern Blood Pressure 133/74 H 133/74 H Blood Pressure Mean 93 93 Blood Pressure Source Blood Pressure Position Blood Pressure Location Pulse Ox 93 93 Oxygen Delivery Method Room Air Room Air Room Air 11/25/24 20:28 11/25/24 20:43 11/25/24 21:13 Temperature Temperature Source Pulse Rate 91 90 88 Respiratory Rate 25 H 15 13 Respiratory Effort Respiratory Depth Respiratory Pattern Blood Pressure 115/92 H 133/80 H 141/74 H Blood Pressure Mean 99 97 96 Blood Pressure Source Blood Pressure Position Blood Pressure Location Pulse Ox 95 92 97 Oxygen Delivery Method Room Air Room Air Room Air 11/25/24 21:51 11/25/24 22:35 11/25/24 23:00 Temperature 98.2 F 97.6 F L Temperature Source Oral Pulse Rate 87 81 Respiratory Rate 16 16 Respiratory Effort Normal Respiratory Depth Normal Respiratory Pattern Normal Blood Pressure 136/78 H 144/76 H Blood Pressure Mean 97 98 Blood Pressure Source Monitor Blood Pressure Position Semi-Fowlers Blood Pressure Location Right Arm Pulse Ox 95 97 Oxygen Delivery Method Room Air Room Air 11/26/24 01:00 11/26/24 02:00 11/26/24 04:51 Temperature 98 F Temperature Source Oral Pulse Rate 83 Respiratory Rate 16 Respiratory Effort Normal Respiratory Depth Normal Respiratory Pattern Normal Blood Pressure 137/72 H Blood Pressure Mean 93 Blood Pressure Source Monitor Blood Pressure Position Semi-Fowlers Blood Pressure Location Right Arm Pulse Ox 94 95 Oxygen Delivery Method Room Air Room Air Room Air 11/26/24 06:00 11/26/24 09:46 Temperature 97.7 F L 98.3 F Temperature Source Oral Oral Pulse Rate 77 82 Respiratory Rate 16 16 Respiratory Effort Respiratory Depth Respiratory Pattern Blood Pressure 149/83 H 134/73 H Blood Pressure Mean 105 93 Blood Pressure Source Monitor Monitor Blood Pressure Position Semi-Fowlers Semi-Fowlers Blood Pressure Location Right Arm Right Arm Pulse Ox 94 93 Oxygen Delivery Method Room Air Room Air Weight Weight: 89.8 kg Body Mass Index (BMI) 30.1 Physical Exam Narrative - General: NAD, pleasant, cooperative, well nourished, well developed - Head/Eyes: Atraumatic, normocephalic, clear cornea, normal sclera/conjunctive - Neuro: ? Mental Status: AAOX4 & following simple commands. ? Speech: Clear and fluent with good repetition, comprehension, & naming. No aphasia or dysarthria ? CN II: Visual zimmerman are full to confrontation. ? CN III, IV, : EOMI, no gaze preference, no nystagmus, no ptosis ? CN V: Facial sensation is intact to light touch throughout. ? CN VII: Face is symmetric with normal eye closure and smile. ? CN VII: Hearing is grossly normal to conversational speech. ? Motor: Able to sustain all limbs ? Sensation: Normal to light touch bilaterally. ? Coordination: Normal FTN & HTS. No abn movements seen. ? Lab / Micro Data 11/26/24 06:10 11/26/24 06:10 Labs: Laboratory Results - last 24 hr 11/25/24 19:55: WBC 7.8, RBC 4.49 L, Hgb 14.2, Hct 40.9, MCV 91.1, MCH 31.6, MCHC 34.7, RDW Std Deviation 45.5 H, RDW Coeff of Chucho 13.5, Plt Count 124 L, MPV9.5, Immature Gran % (Auto) 0.400, Neut % (Auto) 41.5 L, Lymph % (Auto) 52.1 H, Perkins % (Auto) 5.2, Eos % (Auto) 0.4, Baso % (Auto) 0.4, Absolute Neuts (auto) 3.2, Absolute Lymphs (auto) 4.07, Nucleated RBC % 0, PT 13.7, INR 1.0, APTT 25.8, Sodium 140, Potassium 4.4, Chloride 106, Carbon Dioxide 21.3, Anion Gap 13, BUN 21 H, Creatinine 1.15,Estim Creat Clear Calc 56.26, Est GFR (MDRD) Non- Af 64, BUN/Creatinine Ratio 18.3, Glucose 99, Calcium 9.4, Magnesium 2.2, Troponin T High Sens 39 H 11/25/24 20:11: POC Glucose 120 H 11/25/24 21:55: Troponin T Hi Sens 2 Hr 36 H 11/26/24 00:13: Troponin T Hi Sens 4Hr 35 H 11/26/24 06:10: WBC 6.3, RBC 4.33 L, Hgb 13.6, Hct 39.9 L, MCV 92.1, MCH 31.4, MCHC 34.1, RDW Std Deviation 45.8 H, RDW Coeff of Chucho 13.4, Plt Count 102 L, MPV9.3, Immature Gran % (Auto) 0.200, Neut % (Auto) 47.8, Lymph % (Auto) 46.7 H, Perkins % (Auto) 4.5, Eos % (Auto) 0.5, Baso % (Auto) 0.3, Absolute Neuts (auto) 3.0, Absolute Lymphs (auto) 2.94, Nucleated RBC % 0.3, Sodium 141, Potassium 4.5, Chloride 111 H, Carbon Dioxide 21.7, Anion Gap 9, BUN 16, Creatinine 0.94, Estim Creat Clear Calc 68.23, Est GFR (MDRD) Non-Af 82, BUN/Creatinine Ratio 17.5, Glucose 96, Hemoglobin A1c 5.3, Calcium 8.8,Total Bilirubin 0.71, AST 24,ALT 22, Alkaline Phosphatase 74, Total Protein 5.4 L, Albumin 3.6, Globulin 1.8 L, Albumin/Globulin Ratio 2.0, Triglycerides 46, Cholesterol 101, LDL Cholesterol, Calc 51, VLDL Cholesterol 9, HDL Cholesterol 41, Cholesterol/HDL Ratio 2.48, TSH 1.040 Imaging Radiology Impression Brain CT 11/25/24 20:13 IMPRESSION: No acute intracranial finding. Dr. Fam discussed these findings via telephone with Dr. Clifford at 8:31 pm on 11/25/24. Reading Location: [facility] Chest X-Ray 11/25/24 20:13 IMPRESSION: No significant change since last exam. Reading Location: [facility] Head/Neck CTA 11/25/24 20:14 IMPRESSION: No large vessel occlusion, aneurysm or AVM. Reading Location: [facility] Active Medications Active Medications Active Medications: Current Medications Generic Name Dose Route Start Last Admin Trade Name Freq PRN Reason Stop Dose Admin Acetaminophen 650 mg 11/25/24 22:33 Acetaminophen 325 Mg Tablet PO Q4H PRN PRN Fever, pain 1-10 Al Hydroxide/Mg Hydroxide 30 ml 11/25/24 22:33 Mag Hydrox/Al Hydrox/Simeth 30 Ml Udc PO Q6H PRN PRN Gastric Burning Albuterol Sulfate 2.5 mg 11/25/24 22:33 Albuterol 2.5 Mg/3 Ml Vial.Neb. INHALATION Q2H PRN PRN Dyspnea, wheezing Albuterol/Ipratropium 3 ml 11/26/24 08:45 Ipratropium/Albuterol Sulfate 3 Ml Ampul.Neb INHALATION Q6HWA.RT SHANNON Aspirin 81 mg 11/26/24 08:00 11/26/24 09:57 Aspirin 81 Mg Tab.Chew PO 81 mg BREAKFAST SHANNON Administration Atorvastatin Calcium 40 mg 11/25/24 22:33 11/25/24 23:46 Atorvastatin Calcium 40 Mg Tablet PO 40 mg QHS SHANNON Administration Azithromycin 250 mg 11/26/24 10:00 11/26/24 10:07 Azithromycin 250 Mg Tablet PO 250 mg DAILY SHANNON Administration Budesonide 0.5 mg 11/25/24 22:33 Budesonide Respules 0.5 Mg/2 Ml Ampul.Neb. INHALATION BID.RT SHANNON Enoxaparin Sodium 40 mg 11/26/24 10:00 11/26/24 09:55 Enoxaparin 40 Mg/0.4 Ml Syringe SC 40 mg DAILY SHANNON Administration Guaifenesin 20 ml 11/25/24 22:33 Guaifenesin 10 Ml Udc (200mg/10ml) PO Q4H PRN PRN COUGH Hydralazine HCl 5 mg 11/25/24 22:33 Hydralazine 20 Mg/Ml Vial IV 11/26/24 22:33 Q30M PRN maintain BP parameters with HR <60 Sodium Chloride 250 mls @ 15 mls/hr 11/25/24 22:42 IV .[id number] PRN Saline Flush Sodium Chloride 250 mls @ 15 mls/hr 11/25/24 22:42 IV .[id number] PRN Additional IVPB Infusion Labetalol HCl 10 - 20 mg 11/25/24 22:33 Labetalol 20 Mg/4 Ml Vial IV 11/26/24 22:33 Q10M PRN PRN maintain BP parameters with HR >/=60 Melatonin 3 mg 11/25/24 22:33 Melatonin 3 Mg Tablet PO QHS PRN PRN INSOMNIA Montelukast Sodium 10 mg 11/26/24 10:00 11/26/24 09:56 Montelukast 10 Mg Tablet PO 10 mg DAILY SHANNON Administration Nortriptyline HCl 50 mg 11/25/24 23:00 11/26/24 09:56 Nortriptyline 25 Mg Capsule PO 50 mg BID SHANNON Administration Ondansetron HCl 4 mg 11/25/24 22:33 Ondansetron 4 Mg/2 Ml Vial IV Q8H PRN PRN NAUSEA/VOMITING Pantoprazole Sodium 40 mg 11/26/24 10:00 11/26/24 09:56 Pantoprazole Sodium 40 Mg Tablet PO 40 mg DAILY SHANNON Administration Polyethylene Glycol 17 gm 11/25/24 22:33 Polyethylene Glycol 3350 17 Gm Packet PO DAILY PRN PRN Constipation Prochlorperazine Edisylate 5 mg 11/25/24 22:33 Prochlorperazine 10 Mg/2 Ml Vial IV Q4H PRN PRN Breakthrough Nausea/Vomiting Sodium Chloride 10 - 40 ml 11/25/24 22:42 0.9% Saline Lock 10 Ml Syringe IV UD PRN SALINE FLUSH Tamsulosin HCl 0.4 mg 11/25/24 22:33 11/25/24 23:46 Tamsulosin Hcl 0.4 Mg Capsule PO 0.4 mg QHS SHANNON Administration NIHSS NIHSS Nursing Documentation NIHSS Nursing Documentation: NIH Stroke Scale Start: 11/25/24 20:09 Freq: Status: Discharge Protocol: Activity Type Activity Date Activity User E-sign Co-sign Detail Recorded Client Recorded Date Recorded By Document 11/25/24 20:09 ET [id number] 11/25/24 20:10 ET 11/25/24 20:09 NIH Stroke Scale [NIHSS] A score of 0 is normal or asymptomatic . Total possible score is 42. Inpatient: RN or Physician to activate a stroke alert for onset of new stroke symptoms or with NIHSS increase >/= 3 points. Following change in neurological status, NIHSS will be performed per physician order or more frequently PRN. -1a. Level of Consciousness 0 - Alert; keenly responsive -1b. LOC Questions 0 - Answers BOTH questions correctly -1c. LOC Commands 0 - Performs BOTH tasks correctly -2. Best Gaze 0 - Normal -3. Visual 0 - No visual loss -4. Facial Palsy 0 - Normal symmetrical movements -5a. Left Arm 0 - No drift; arm holds 90 ( or 45) degrees for full 10 seconds -5b. Right Arm 0 - No drift; arm holds 90 ( or 45) degrees for full 10 seconds -6a. Left Leg 0 - No drift; leg holds 30- degree position for full 5 seconds -6b. Right Leg 0 - No drift; leg holds 30- degree position for full 5 seconds -7. Limb Ataxia 0 - Absent -8. Sensory 0 - Normal; no sensory loss -9. Best Language 0 - No aphasia; normal -10. Dysarthria 0 - Normal -11. Extinction and Inattention 0 - No abnormality -Total 0 Query Text:A score of 0 is normal or asymptomatic. Total possible score is 42 . ED: Notify Physician for NIHSS increase by > / = 3 points. Inpatient: RN or Physician to activate a stroke alert for NIHSS increase of > / = 3 points. NIHSS: Ischemic Stroke/TIA Start: 11/25/24 22:33 Text: For PCU Patients: NIH and Neuro Check every 4 Status: Active hours, PRN and with change in RN caregiver. Freq: [id number] Protocol: Activity Type Activity Date Activity User E-sign Co-sign Detail Recorded Client Recorded Date Recorded By Document 11/26/24 10:00 AD [id number] 11/26/24 10:12 AD 11/26/24 10:00 -1a. Level of Consciousness 0 - Alert; keenly responsive -1b. LOC Questions 0 - Answers BOTH questions correctly -1c. LOC Commands 0 - Performs BOTH tasks correctly -2. Best Gaze 0 - Normal -3. Visual 0 - No visual loss -4. Facial Palsy 0 - Normal symmetrical movements -5a. Left Arm 0 - No drift; arm holds 90 ( or 45) degrees for full 10 seconds -5b. Right Arm 0 - No drift; arm holds 90 ( or 45) degrees for full 10 seconds -6a. Left Leg 0 - No drift; leg holds 30- degree position for full 5 seconds -6b. Right Leg 0 - No drift; leg holds 30- degree position for full 5 seconds -7. Limb Ataxia 0 - Absent -8. Sensory 0 - Normal; no sensory loss -9. Best Language 0 - No aphasia; normal -10. Dysarthria 0 - Normal -11. Extinction and Inattention 0 - No abnormality -Total 0 Query Text:A score of 0 is normal or asymptomatic. Total possible score is 42 . ED: Notify Physician for NIHSS increase by > / = 3 points. Inpatient: RN or Physician to activate a stroke alert for NIHSS increase of > / = 3 points. Coma Scale [Assess] -Eye Opening Spontaneous -Motor Obeys Commands -Verbal Oriented [Total] -Coma Scale Total 15 11/26/24 1120 Cosigner Signature (if applicable): CC: Dr. Tre García MD; Dr. Neo Clifford, DO~ Signed [facility]06-28-2025 History and physical note Author Megan Garcia [facility] Note Date/Time November 25, 2024 9:50 pm [facility] Medical Records Department [address] [place] [address] H&P Exam - Hospitalist 11/25/24 2133 MR#: [id number] Acct: [id number] Name: VALENTINA CABRERA Rep #:[id number] : 1945 79 From: Megan Garcia MD PCP: Dr. Tre García MD Status:REG E R Location: ED HPI - General General Date of Admission: 11/25/24 Date of Service: 11/25/24 Chief Complaint: Transient blurry vision/vertigo/dizziness. HPI Narrative The patient is an 79 y/o M w/ PMHx: Obesity, Former tobacco use, CKD stage II per GFR trending, BPH with obstructive pathology, HTN, HLD, Anxiety and Depression, Chronic lumbar back pain, Asthma with allergic rhinitis, GERD who presents to the [facility] ED on 11/17/2024 with history of vision changes and onset of dizziness noted to be sitting down watching TV when all of a sudden his vision became blurry with onset of dizziness with sensation of room spinning noting that it is never occurred prior although he has had vertigo in the past but is very different from previously with no recent URI type illnesses lasting approximate 1.5 hours prompting eventual ED evaluation. Last known well per history was 18:30 pm on day of presentation of note. In the ED upon evaluation initially pretty physician NIH stroke scale 0. In the ED hissymptoms were noted to continue improve as he was felt not a tenecteplase candidate. Upon ED arrival as noted the symptoms resolved however patient noteshe still feels fatigued since. Patient did report a single episode remotely of a migraine but has not had any since. He denies any headache on day of presentation. Workup in the ED included T97.9, heart rate 85, BP 133/74, respiratory rate 13, 93% on room air with most recent repeat vitals heart rate 91, BP 115/92, respiratory rate 25, 95% room air, CBC with WBC 7.8, hemoglobin 14.2, platelet 124 without marked shift, unremarkable coags, BMP not marked appearing aside BUN/creatinine 21/1.15, GFR 64, troponin 39, CT brain with no acute intracranial findings, CTA Head and Neck with no large vessel occlusion, aneurysm or AVM, CXR with no acute cardiopulmonary findings, EKG sinus rhythm with no acute evidence of ischemia. Telestroke was contacted and evaluated patient with NIH stroke scale assessment per their service 0. In the ED patientministered 1 L normal saline and full-strength aspirin therapy 325 mg p.o. x 1. [facility] Medical History Former tobacco use Obesity CKD (chronic kidney disease), stage II Allergic rhinitis Anxiety and depression Constipation Chronic low back pain BPH (benign prostatic hyperplasia) Hyperlipidemia Asthma COVID-19 Hypertension GERD (gastroesophageal reflux disease) Home Medications ?Medication ?Instructions ?Recorded ?Last Taken ?Type polyethylene glycol 3350 17 gram 17 g PO DAILY PRN Con stipation 04/19/13 04/19/13 07:00 History oral powder packet lisinopril 5 mg tablet 5 mg PO DAILY 08/28/20 Unkno wn History tamsulosin 0.4 mg capsule 0.4 mg PO QHS 06/16/21 Unkno wn History montelukast 10 mg tablet 10 mg PO DAILY 05/06/23 Unkn own History nortriptyline 50 mg capsule 50 mg PO BID 06/02/23 Unkn own History omeprazole 10 mg capsule,delayed 40 mg PO DAILY Unknown History release azithromycin 250 mg tablet 250 mg PO DAILY 11/25/24 Un known History budesonide 160 mcg-glycopyr 9 2 inh inhalation BID Unknown History mcg-formot 4.8 mcg/actuation HFA inhaler (Breztri Aerosphere) Allergy/AdvReac Type Severity Reaction Status Date / Time No Known Allergies Allergy Verified 11/25/24 20:06 Family History Mother Depression CVA (cerebral vascular accident) Anxiety Hypertension Father Pancreatic cancer Surgical History Hx of cataract extraction Social History (Updated 11/25/24 @ 21:[address] Megan Garcia MD) household members: spouse Smoking Status: Former smoker how long ago did patient quit smoking: Quit 1974, smoked cigars only. alcohol intake: never substance use type: does not use ROS ROS Narrative Admission Review of Systems: CONSTITUTIONAL: No weight loss, fever, chills, + weakness or fatigue. HEENT: + Dizziness with vertiginous symptoms. Eyes: No visual loss, double vision or yellow sclerae. + Transient blurry vision. Ears, Nose, Throat: No hearing loss, sneezing, congestion, runny nose or sore throat. SKIN: No rash or itching, lesions, wounds. CARDIOVASCULAR: No chest pain, chest pressure or chest discomfort, palpitations,edema, orthopnea, syncopal events. RESPIRATORY: No shortness of breath, cough or sputum, wheezing, hemoptysis. GASTROINTESTINAL: + anorexia, nausea. No vomiting or diarrhea, abdominal pain, melena, BRBPR. GENITOURINARY: No dysuria, frequency, urgency or retention. NEUROLOGICAL: + Dizziness with vertiginous symptoms, transient bilateral blurry vision, transient brain fog sensation. No headache, syncope, paralysis, ataxia,numbness or tingling in the extremities, focal weakness, change in bowel or bladder control, seizure. MUSCULOSKELETAL: + muscle, back pain, joint pain or stiffness. HEMATOLOGIC: No anemia. + Easy bleeding/bruising. LYMPHATICS: No enlarged nodes. No history of splenectomy. PSYCHIATRIC: + History of anxiety depression. ENDOCRINOLOGIC: No reports of sweating, cold or heat intolerance. No polyuria orpolydipsia. ALLERGIES: + History of asthma, allergic rhinitis. Vital Signs Vital Signs Vital Signs: 11/25/24 20:06 11/25/24 20:13 11/25/24 20:18 Temperature 97.9 F Temperature Source Oral Pulse Rate 85 86 Respiratory Rate 13 16 Blood Pressure 133/74 H 133/74 H Blood Pressure Mean 93 93 Pulse Ox 93 93 Oxygen Delivery Method Room Air Room Air Room Air 11/25/24 20:28 11/25/24 20:43 11/25/24 21:13 Temperature Temperature Source Pulse Rate 91 90 88 Respiratory Rate 25 H 15 13 Blood Pressure 115/92 H 133/80 H 141/74 H Blood Pressure Mean 99 97 96 Pulse Ox 95 92 97 Oxygen Delivery Method Room Air Room Air Room Air Weight Weight: 201 lb 11.567 oz Body Mass Index (BMI) 30.7 Physical Exam Narrative Physical Examination: General: Awake, alert, oriented x 3 and cooperative, seated upright in the ED bed in no apparent distress, notes continued complete resolution of previous neurological symptoms. Skin: Normal color, normal turgor, no icterus, no cyanosis except for very stageecchymoses, abrasions especially to the extremities, more distal and upper. HEENT: AT/NC, EOMI, PERRLA, MMM, no carotid bruits or JVD noted. Lungs: CTA bilaterally, moderate effort, mild decrease BL bases, no rales, ronchi or wheezing. Heart: Regular rate and rhythm; no gallop, rub audible. Abdomen: Soft, NTTP, ND, normal BS, no appreciated HSM. Extremities: No cyanosis, clubbing, or edema. Neurological: Patient awake, alert, oriented as noted, cognitive function intact; pupils equally reactive to light and accommodation, cranial nerves grossly normal, moving all 4 extremities, no focal deficits, strength preserved,finger-nose and [id number] appropriate, sensation intact, negative Babinski, feels of vision intact, no elicited vertiginous symptoms. Psychiatric: Affect appears normal, no acute evidence of depressive or anxiety feelings. Results Lab / Micro Data 11/25/24 19:55 11/25/24 19:55 Labs: Laboratory Results - last 24 hr 11/25/24 19:55: WBC 7.8, RBC 4.49 L, Hgb 14.2, Hct 40.9, MCV 91.1, MCH 31.6, MCHC 34.7, RDW Std Deviation 45.5 H, RDW Coeff of Chucho 13.5, Plt Count 124 L, MPV9.5, Immature Gran % (Auto) 0.400, Neut % (Auto) 41.5 L, Lymph % (Auto) 52.1 H, Perkins % (Auto) 5.2, Eos % (Auto) 0.4, Baso % (Auto) 0.4, Absolute Neuts (auto) 3.2, Absolute Lymphs (auto) 4.07, Nucleated RBC % 0, PT 13.7, INR 1.0, APTT 25.8, Sodium 140, Potassium 4.4, Chloride 106, Carbon Dioxide 21.3, Anion Gap 13, BUN 21 H, Creatinine 1.15, Estim Creat Clear Calc 56.26, Est GFR (MDRD) Non-Af 64, BUN/Creatinine Ratio 18.3, Glucose 99, Calcium 9.4, Troponin T High Sens 39 H 11/25/24 20:11: POC Glucose 120 H Imaging Radiology Impression Brain CT 11/25/24 20:13 IMPRESSION: No acute intracranial finding. Dr. Fam discussed these findings via telephone with Dr. Clifford at 8:31 pm on 11/25/24. Reading Location: [id number] Chest X-Ray 11/25/24 20:13 IMPRESSION: No significant change since last exam. Reading Location: [facility] Head/Neck CTA 11/25/24 20:14 IMPRESSION: No large vessel occlusion, aneurysm or AVM. Reading Location: [id number] Assessment & Plan Assessment/Plan (1) TIA (transient ischemic attack): PLAN: Plan The patient is an 79 y/o M w/ PMHx: Obesity, Former tobacco use, CKD stage II per GFR trending, BPH with obstructive pathology, HTN, HLD, Anxiety and Depression, Chronic lumbar back pain, Asthma with allergic rhinitis, GERD who presents to the [facility] ED on 11/17/2024 with history of vision changes and onset of dizziness noted to be sitting down watching TV when all of a sudden his vision became blurry with onset of dizziness with sensation of room spinning noting that it is never occurred prior although he has had vertigo in the past but is very different from previously with no recent URI type illnesses lasting approximate 1.5 hours prompting eventual ED evaluation. #1. Vision changes/bilateral blurry vision with vertiginous symptoms, resolved concerning for possible posterior CVA/TIA, remote history of migraine x 1 only thus lower suspicion for complex migraine as etiology with mildly elevated cardiac troponin of unclear significance/indeterminate: Will admit to PCU, will obtain MRI Brain, ECHO, PT/OT/Speech/Nutrition evaluation per protocol. Will allow permissive HTN, maintain on asa, add moderate dose statin w/ AM FLP, fall precautions. Mag, TSH, HgbA1c requested. Maintain on fall and aspiration precautions. Will continue neurology consultation initiated in ED. Will have as needed meclizine for vertiginous symptoms. Will continue to cycle cardiac enzymes to be cautious but lower suspicion for cardiac event. #2. Thrombocytopenia, appears new chronicity although has occasionally been noted on previous remote labs: Admission CBC with platelets 124, cautiously adding aspirin, more recent labs have been normal range, will trend CBC. #3. Hypertension: Will maintain permissive hypertension given presentation as noted with urine agents per stroke protocol, add back regimen once clinically appropriate. #4. Hyperlipidemia: Not on statin therapy, given presentation as noted #1 adding moderate dose regimen, FLP in AM as noted #1. #5. Chronic Kidney Disease Stage II per GFR trending: Admission BUN/Cr 21/1.15,GFR 64, baseline renal function primarily 0.9-1.1, repeat BMP in AM. #6. Chronic asthma with allergic rhinitis: Will temporally hold home inhaler inthe interim maintain on ATC budesonide therapy,. Albuterol, continue patient home montelukast regimen. #7. Former tobacco use: Encourage continued tobacco cessation. #8. Obesity: Weight loss and lifestyle changes encouraged. #9. Anxiety and depression: Will continue patient home nortriptyline regimen, encourage continued outpatient follow-up and evaluation as previously arranged. #10. Chronic lumbar back pain: Maintain on fall precautions, encourage offloading, therapies consulted as noted above. #11. BPH with obstructive pathology: Will continue patient home Flomax regimen,monitor for retention. #12. GERD: Will continue patient on PPI. #13. DVT prophylaxis: Lovenox cautiously given #2 and addition of ASA given #1 as noted. #14. CODE status: Patient MARCO ANTONIO is his who is present and living will is currently in place. Discussed CODE status at length including difference betweenFULL code, DNR-CCA and DNR-CC status. Following discussions about the differences in these status, requested Full Code status. Charges/Coding Visit Charges Inpatient E&M: 82901 Init Hosp L3 11/25/24 2150 <Electronically signed by Megan Garcia MD> Cosigner Signature (if applicable): CC: Dr. Megan Garcia MD; Dr. Tre García MD~ Signed [facility] Work Phone: 1(153) 454-684006-28-2025 Discharge summary Author Neo Clifford [facility] Note Date/Time November 25, 2024 9:35 pm [facility] Medical Records Department [address] [place] [address] Emergency Department Summary 11/25/24 MR#: [id number] Acct: [id number] Name: VALENTINA CABRERA Rep #:[id number] : 1945 79 From: Neo Clifford DO PCP: Dr. Tre García MD Status:REG E R Location: ED HPI History of Present Illness Chief Complaint: Dizziness Narrative Narrative: Patient is a 79-year-old male past medical history of hypertension, GERD, asthma, depression, hyperlipidemia who presented to the emergency department with a chief complaint of dizziness, changes in vision. Patient states that he was sitting down watching TV when all of a sudden he had blurry vision and then after this he noted that he was very dizzy and things were spinning. He states that nothing like this has happened before and he states that he does have vertigo in the past but states that this feels very different to him. Patient denies any head injuries or trauma denies any blood thinning medications. [facility] Medical History (Updated 11/25/24 @ 21:[address] Neo Clifford DO) Former tobacco use Obesity CKD (chronic kidney disease), stage II Allergic rhinitis Anxiety and depression Constipation Chronic low back pain BPH (benign prostatic hyperplasia) Hyperlipidemia Asthma COVID-19 Hypertension GERD (gastroesophageal reflux disease) Home Medications ?Medication ?Instructions ?Recorded ?Last Taken ?Type polyethylene glycol 3350 17 gram 17 g PO DAILY PRN Con stipation 04/19/13 04/19/13 07:00 History oral powder packet lisinopril 5 mg tablet 5 mg PO DAILY 08/28/20 Unkno wn History tamsulosin 0.4 mg capsule 0.4 mg PO QHS 06/16/21 Unkno wn History albuterol sulfate 90 mcg/actuation 2 inh inhalation Q6 H PRN shortness 05/06/23 Unknown History breath activated powder inhaler of breath mometasone-formoterol HFA 200 2 puff inhalation BID Unknown History mcg-5 mcg/actuation aerosol inhaler (Dulera) montelukast 10 mg tablet 10 mg PO DAILY 05/06/23 Unkn own History nortriptyline 50 mg capsule 50 mg PO BID 06/02/23 Unkn own History omeprazole 10 mg capsule,delayed 40 mg PO DAILY Unknown History release Allergy/AdvReac Type Severity Reaction Status Date / Time No Known Allergies Allergy Verified 11/25/24 20:06 Family History Mother Depression CVA (cerebral vascular accident) Anxiety Hypertension Father Pancreatic cancer Surgical History Hx of cataract extraction Social History (Updated 11/25/24 @ 20:[address] Megan Garcia MD) household members: spouse Smoking Status: Former smoker alcohol intake: never substance use type: does not use ROS ROS ED ROS Narrative Constitutional: Complains of dizziness as noted above denies headache, fever, chills, lightheadedness Eyes: Complains of changes in vision as noted above but states that this is since resolved Cardiovascular: Denies chest pain Respiratory: Denies any wheezing or shortness of breath Abdomen: Denies abdominal pain nausea vomit diarrhea : Denies urinary symptoms Neurological: Denies numbness, wheeze, tingling Musculoskeletal: Denies back pain Skin: Denies any rashes or lesions EXAM Physical Exam Narrative Exam Narrative: General: Patient was lying in bed rest comfortably did not appear to be acute distress Head: Atraumatic, normocephalic Eyes: PERRL bilaterally, EOMI bilateral, no conjunctival injection noted Neck: Soft and supple, trachea midline Cardiovascular: Regular rate and rhythm no murmurs gallops rubs noted Respiratory: Clear to auscultation bilaterally no rales rhonchi or wheezes noted Abdomen: Soft, nondistended, no tenderness to palpation Extremities: Radial pulses +2/4 in the bilateral upper extremities, +5/5 strength noted in the bilateral upper and lower extremities Neurological: Patient was following commands knew that he was at [facility] year is 2024. NIH of 0 GCS 15 patient completed finger-nose testing bilaterally with any difficulty Skin: Warm, dry, intact no rashes or lesions noted Const Vital Signs: 11/25/24 20:06 11/25/24 20:13 11/25/24 20:18 Temperature 97.9 F Temperature Source Oral Pulse Rate 85 86 Respiratory Rate 13 16 Blood Pressure 133/74 H 133/74 H Blood Pressure Mean 93 93 Pulse Ox 93 93 Oxygen Delivery Method Room Air Room Air Room Air 11/25/24 20:28 11/25/24 20:43 11/25/24 21:13 Temperature Temperature Source Pulse Rate 91 90 88 Respiratory Rate 25 H 15 13 Blood Pressure 115/92 H 133/80 H 141/74 H Blood Pressure Mean 99 97 96 Pulse Ox 95 92 97 Oxygen Delivery Method Room Air Room Air Room Air MDM MDM MDM Narrative Medical decision making narrative: Patient is a 79-year-old male who presented to the emergency department the chief complaint of changes in vision which has since resolved and dizziness. Onthe differential diagnose includes but not limited to intracranial hemorrhage, TIA, ischemic stroke, posterior circulation stroke, electrolyte abnormality, hypoglycemia, peripheral vertigo although his symptoms cannot be recreated here in the emergency department. Patient is not a tenecteplase candidate as his symptoms are improving at this point in time. Patient CBC reviewed showed no evidence leukocytosis white blood count normal at7.8, hemoglobin stable at 14.2, platelet count was 124. Patient INR normal at 1, PT 13.7. Patient sodium normal 140, potassium normal at 4.4, creatinine normal at 1.15. Patient troponin was 39 delta troponin pending EKG showed sinusrhythm with a rate of 86 bpm. Patient's glucose was noted to be 99. Patient chest x-ray reviewed by myself and by radiology showed no acute cardiopulmonary processes. Patient CT head and brain without contrast showed no acute cranial findings. Patient CTA head and neck showed no large vessel occlusion aneurysm or AVM. Patient was evaluated by teleneurology Dr. Cooley who is recommending admission for further stroke workup. Patient's case will be discussed with hospitalist for admission. Patient was given 325 mg of aspirin. Discussed case with hospitalist Dr. Garcia who accept patient for admission. Patient notified is agreeable with this plan all questions and concerns were answered at bedside Lab Data Labs: Laboratory Results - last 24 hr 11/25/24 11/25/24 19:55 20:11 WBC 7.8 RBC 4.49 L Hgb 14.2 Hct 40.9 MCV 91.1 MCH 31.6 MCHC 34.7 RDW Std Deviation 45.5 H RDW Coeff of Chucho 13.5 Plt Count 124 L MPV 9.5 Immature Gran % (Auto) 0.400 Neut % (Auto) 41.5 L Lymph % (Auto) 52.1 H Perkins % (Auto) 5.2 Eos % (Auto) 0.4 Baso % (Auto) 0.4 Absolute Neuts (auto) 3.2 Absolute Lymphs (auto) 4.07 Nucleated RBC % 0 PT 13.7 INR 1.0 APTT 25.8 Sodium 140 Potassium 4.4 Chloride 106 Carbon Dioxide 21.3 Anion Gap 13 BUN 21 H Creatinine 1.15 Estim Creat Clear Calc 56.26 Est GFR (MDRD) Non-Af 64 BUN/Creatinine Ratio 18.3 Glucose 99 Calcium 9.4 Troponin T High Sens 39 H POC Glucose 120 H Radiography Diagnostic Testing: Clinical Impression(s) from Imaging Studies Brain CT 11/25/24 20:13 IMPRESSION: No acute intracranial finding. Dr. Fam discussed these findings via telephone with Dr. Clifford at 8:31 pm on 11/25/24. Reading Location: [facility] Chest X-Ray 11/25/24 20:13 IMPRESSION: No significant change since last exam. Reading Location: [facility] Head/Neck CTA 11/25/24 20:14 IMPRESSION: No large vessel occlusion, aneurysm or AVM. Reading Location: [facility] Discharge Plan Triage Chief Complaint: Dizziness ED Provider: Neo Clifford Dx/Rx/DC Orders Clinical Impression: Dizziness, Hyperlipidemia, Hypertension, Change in vision Prescriptions: No Action Dulera 200-5 mcg/actuation HFA aerosol inhaler 2 puff inhalation BID albuterol sulfate 90 mcg/actuation aerosol powdr breath activated 2 inh inhalation Q6H PRN (Reason: shortness of breath) montelukast 10 mg tablet 10 mg PO DAILY nortriptyline 50 mg capsule 50 mg PO BID polyethylene glycol 3350 17 GM powder in packet 17 g PO DAILY PRN (Reason: Constipation) Patient Comments: constipation lisinopril 5 MG tablet 5 mg PO DAILY omeprazole 10 mg capsule,delayed release(DR/EC) 40 mg PO DAILY tamsulosin 0.4 mg capsule 0.4 mg PO QHS Primary Care Provider: Tre García Chi Referrals: Tre García Chi, MD [Primary Care Provider] - Print Language: [place] Disposition Disposition: Acute Care [facility] What to do if you have Problems For any increased pain, shortness of breath, bleeding, nausea or vomiting, chestpain, or any unexpected problems, contact your Primary Care Provider. Call [facility] ([phone]) or report to the closest Emergency Room. Call 911 if necessary. 11/25/242134 <Electronically signed by Neo Clifford DO> Cosigner Signature (if applicable): CC: Dr. Tre García MD ~ Signed [facility] Work Phone: 1(195) 506-608606-28-2025 Evaluation note* Diagnosis Onset Date Resolution Status Admit Date Change in vision acute October 9:27pm Dizziness acute November 25 9:27pm Elevated troponin acute November 252024 9:27pm Hyperlipidemia acute November 25, 2024 9:27pm TIA (transient ischemic attack) acut e November 25, 2024 9:27pm Hypertension chronic November 25, 2 025 9:27pm [facility] Work Phone: 1(665) 172-849306-28-2025 Evaluation note* Diagnosis Onset Date Resolution Status Admit Date Change in vision resolved October 9:27pm Dizziness resolved November 25 9:27pm Elevated troponin inactive November 252024 9:27pm Hyperlipidemia inactive November 25, 2024 9:27pm Hypertension inactive November 25, 2 025 9:27pm TIA (transient ischemic attack) ioana silvestre November 25, 2024 9:27pm [facility] Work Phone: 1([phone]) 962-223806-28-2025 Evaluation note* Diagnosis Onset Date Resolution Status Admit Date Change in vision resolved October 9:27pm Dizziness resolved November 25 9:27pm Elevated troponin inactive November 252024 9:27pm Hyperlipidemia inactive November 25, 2024 9:27pm Hypertension inactive November 25, 2 025 9:27pm TIA (transient ischemic attack) ioana silvestre November 25, 2024 9:27pm Thrombocytopenia chronic January 022024 2:18pm [facility] Work Phone: 1([phone]) 590-223206-28-2025 Evaluation note* Diagnosis Onset Date Resolution Status Admit Date Change in vision resolved October 9:27pm Dizziness resolved November 25 9:27pm Elevated troponin inactive November 252024 9:27pm Hyperlipidemia inactive November 25, 2024 9:27pm Hypertension inactive November 25, 2 025 9:27pm TIA (transient ischemic attack) ioana silvestre November 25, 2024 9:27pm Thrombocytopenia chronic January 022024 2:18pm History of fall acute January 252024 9:55am Laceration of knee, left acute January 25, 2025 9:55am Laceration of left forearm acute January 25, 2025 9:55am [facility] Work Phone: 1([phone]) [phone] Evaluation note* Diagnosis Onset Date Resolution Status Admit Date Change in vision resolved October 9:27pm Dizziness resolved November 25 9:27pm Elevated troponin inactive November 252024 9:27pm Hyperlipidemia inactive November 25, 2024 9:27pm Hypertension inactive November 25, 2 025 9:27pm TIA (transient ischemic attack) ioana silvestre November 25, 2024 9:27pm Thrombocytopenia chronic January 022024 2:18pm History of fall acute January 252024 9:55am Laceration of knee, left acute January 25, 2025 9:55am Laceration of left forearm acute January 25, 2025 9:55am Thrombocytopenia chronic Septembe r 2024 3:19pm [facility] Work Phone: 1(167) 534-943606-28-2025 History and physical note [facility] Medical Records Department [address] [place] [address] H&P Exam - Hospitalist 11/25/242132 MR#: [id number] Acct: [id number] Name: VALENTINA CABRERA Rep #:[id number] : 1945 79 From: Megan Garcia MD PCP: Dr. Tre García MD Status:REG E R Location: ED HPI - General General Date of Admission: 11/25/24 Date of Service: 11/25/24 Chief Complaint: Transient blurry vision/vertigo/dizziness. HPI Narrative The patient is an 79 y/o M w/ PMHx: Obesity, Former tobacco use, CKD stage II per GFR trending, BPHwith obstructive pathology, HTN, HLD, Anxiety and Depression, Chronic lumbar back pain, Asthma withallergic rhinitis, GERD who presents to the [facility] ED on 11/17/2024 with historyof vision changes and onset of dizziness noted to be sitting down watching TV when all of a sudden his vision became blurry with onset of dizziness with sensation of room spinning noting that it is never occurred prior although he has had vertigo in the past but is very different from previously with no recent URI type illnesses lasting approximate 1.5 hours prompting eventual ED evaluation. Lastknown well per history was 18:30 pm on day of presentation of note. In the ED upon evaluation initially pretty physician NIH stroke scale 0. In the ED hissymptoms were noted to continue improve as hewas felt not a tenecteplase candidate. Upon ED arrival as noted the symptoms resolved however patient noteshe still feels fatigued since. Patient did report a single episode remotely of a migraine but has not had any since. He denies any headache on day of presentation. Workup in the ED included T97.9, heart rate 85, BP 133/74, respiratory rate 13, 93% on room air with most recent repeat vitals heart rate 91, BP 115/92, respiratory rate 25, 95% room air, CBC with WBC 7.8, hemoglobin 14.2, platelet 124 without marked shift, unremarkable coags, BMP not marked appearing aside BUN/creatinine 21/1.15, GFR 64, troponin 39, CT brain with no acute intracranial findings, CTA Head and Neck with no large vessel occlusion, aneurysm or AVM, CXR with no acute cardiopulmonary findings, EKG sinus rhythm with no acute evidence of ischemia. Telestroke was contacted and evaluated patient with NIH stroke scale assessment per their service 0. In the ED patientministered 1 L normal saline and full-strengthaspirin therapy 325 mg p.o. x 1. PFSH Medical History Former tobacco use Obesity CKD (chronic kidney disease), stage II Allergic rhinitis Anxiety and depression Constipation Chronic low back pain BPH (benign prostatic hyperplasia) Hyperlipidemia Asthma COVID-19 Hypertension GERD (gastroesophageal reflux disease) Home Medications ?Medication ?Instructions ?Recorded ?Last Taken ?Type polyethylene glycol 3350 17 gram 17 g PO DAILY PRN Con stipation 04/19/13 04/19/13 07:00 History oral powder packet lisinopril 5 mg tablet 5 mg PO DAILY 08/28/20 Unkno wn History tamsulosin 0.4 mg capsule 0.4 mg PO QHS 06/16/21 Unkno wn History montelukast 10 mg tablet 10 mg PO DAILY 05/06/23 Unkn own History nortriptyline 50 mg capsule 50 mg PO BID 06/02/23 Unkn own History omeprazole 10 mg capsule,delayed 40 mg PO DAILY 01/03/ 24 Unknown History release azithromycin 250 mg tablet 250 mg PO DAILY 11/25/24 Un known History budesonide 160 mcg-glycopyr 9 2 inh inhalation BID Unknown History mcg-formot 4.8 mcg/actuation HFA inhaler (Breztri Aerosphere) Allergy/AdvReac Type Severity Reaction Status Date / Time No Known Allergies Allergy Verified 11/25/24 20:06 Family History Mother Depression CVA (cerebral vascular accident) Anxiety Hypertension Father Pancreatic cancer Surgical History Hx of cataract extraction Social History (Updated 11/25/24 @ 21:[address] Megan Garcia MD) household members: spouse Smoking Status: Former smoker how long ago did patient quit smoking: Quit 1974, smoked cigars only. alcohol intake: never substance use type: does not use ROS ROS Narrative Admission Review of Systems: CONSTITUTIONAL: No weight loss, fever, chills, + weakness or fatigue. HEENT: + Dizziness with vertiginous symptoms. Eyes: No visual loss, double vision or yellow sclerae. + Transient blurry vision. Ears, Nose, Throat: No hearing loss, sneezing, congestion, runny nose or sore throat. SKIN: No rash or itching, lesions, wounds. CARDIOVASCULAR: No chest pain, chest pressure or chest discomfort, palpitations,edema, orthopnea, syncopal events. RESPIRATORY: No shortness of breath, cough or sputum, wheezing, hemoptysis. GASTROINTESTINAL: + anorexia, nausea. No vomiting or diarrhea, abdominal pain, melena, BRBPR. GENITOURINARY: No dysuria, frequency, urgency or retention. NEUROLOGICAL: + Dizziness with vertiginous symptoms, transient bilateral blurry vision, transient brain fog sensation. No headache, syncope, paralysis, ataxia,numbness or tingling in the extremities,focal weakness, change in bowel or bladder control, seizure. MUSCULOSKELETAL: + muscle, back pain, joint pain or stiffness. HEMATOLOGIC: No anemia. + Easy bleeding/bruising. LYMPHATICS: No enlarged nodes. No history of splenectomy. PSYCHIATRIC: + History of anxiety depression. ENDOCRINOLOGIC: No reports of sweating, cold or heat intolerance. No polyuria orpolydipsia. ALLERGIES: + History of asthma, allergic rhinitis. Vital Signs Vital Signs Vital Signs: 11/25/24 20:06 11/25/24 20:13 11/25/24 20:18 Temperature 97.9 F Temperature Source Oral Pulse Rate 85 86 Respiratory Rate 13 16 Blood Pressure 133/74 H 133/74 H Blood Pressure Mean 93 93 Pulse Ox 93 93 Oxygen Delivery Method Room Air Room Air Room Air 11/25/24 20:28 11/25/24 20:43 11/25/24 21:13 Temperature Temperature Source Pulse Rate 91 90 88 Respiratory Rate 25 H 15 13 Blood Pressure 115/92 H 133/80 H 141/74 H Blood Pressure Mean 99 97 96 Pulse Ox 95 92 97 Oxygen Delivery Method Room Air Room Air Room Air Weight Weight: 201 lb 11.567 oz Body Mass Index (BMI) 30.7 Physical Exam Narrative Physical Examination: General: Awake, alert, oriented x 3 and cooperative, seated upright in the ED bed in no apparent distress, notes continued complete resolution of previous neurological symptoms. Skin: Normal color, normal turgor, no icterus, no cyanosis except for very stageecchymoses, abrasions especially to the extremities, more distal and upper. HEENT: AT/NC, EOMI, PERRLA, MMM, no carotid bruits or JVD noted. Lungs: CTA bilaterally, moderate effort, mild decrease BL bases, no rales, ronchi or wheezing. Heart: Regular rate and rhythm; no gallop, rub audible. Abdomen: Soft, NTTP, ND, normal BS, no appreciated HSM. Extremities: No cyanosis, clubbing, or edema. Neurological: Patient awake, alert, oriented as noted, cognitive function intact; pupils equally reactive to light and accommodation, cranial nerves grossly normal, moving all 4 extremities, no focaldeficits, strength preserved,finger-nose and [id number] appropriate, sensation intact, negative Babinski, feels of vision intact, no elicited vertiginous symptoms. Psychiatric: Affect appears normal, no acute evidence of depressive or anxiety feelings. Results Lab / Micro Data 11/25/24 19:55 11/25/24 19:55 Labs: Laboratory Results - last 24 hr 11/25/24 19:55: WBC 7.8, RBC 4.49 L, Hgb 14.2, Hct 40.9, MCV 91.1, MCH 31.6, MCHC 34.7, RDW Std Deviation 45.5 H, RDW Coeff of Chucho 13.5, Plt Count 124 L, MPV9.5, Immature Gran % (Auto) 0.400, Neut % (Auto) 41.5 L, Lymph % (Auto) 52.1 H, Perkins % (Auto) 5.2, Eos % (Auto) 0.4, Baso % (Auto) 0.4, Absolute Neuts (auto) 3.2, Absolute Lymphs (auto) 4.07, Nucleated RBC % 0, PT 13.7, INR 1.0, APTT 25.8, Sodium 140, Potassium 4.4, Chloride 106, Carbon Dioxide 21.3, Anion Gap 13, BUN 21 H, Creatinine 1.15,Estim Creat Clear Calc 56.26, Est GFR (MDRD) Non- Af 64, BUN/Creatinine Ratio 18.3, Glucose 99, Calcium 9.4, Troponin T High Sens 39 H 11/25/24 20:11: POC Glucose 120 H Imaging Radiology Impression Brain CT 11/25/24 20:13 IMPRESSION: No acute intracranial finding. Dr. Fam discussed these findings via telephone with Dr. Clifford at 8:31 pm on 11/25/24. Reading Location: [id number] Chest X-Ray 11/25/24 20:13 IMPRESSION: No significant change since last exam. Reading Location: [id number] Head/Neck CTA 11/25/24 20:14 IMPRESSION: No large vessel occlusion, aneurysm or AVM. Reading Location: [id number] Assessment & Plan Assessment/Plan (1) TIA (transient ischemic attack): PLAN: Plan The patient is an 79 y/o M w/ PMHx: Obesity, Former tobacco use, CKD stage II per GFR trending, BPHwith obstructive pathology, HTN, HLD, Anxiety and Depression, Chronic lumbar back pain, Asthma withallergic rhinitis, GERD who presents to the [facility] ED on 11/17/2024 with historyof vision changes and onset of dizziness noted to be sitting down watching TV when all of a sudden his vision became blurry with onset of dizziness with sensation of room spinning noting that it is never occurred prior although he has had vertigo in the past but is very different from previously with no recent URI type illnesses lasting approximate 1.5 hours prompting eventual ED evaluation. #1. Vision changes/bilateral blurry vision with vertiginous symptoms, resolved concerning for possible posterior CVA/TIA, remote history of migraine x 1 only thus lower suspicion for complex migraineas etiology with mildly elevated cardiac troponin of unclear significance/indeterminate: Will admitto PCU, will obtain MRI Brain, ECHO, PT/OT/Speech/Nutrition evaluation per protocol. Will allow permissive HTN, maintain on asa, add moderate dose statin w/ AM FLP, fall precautions. Mag, TSH, [id number]. Maintain on fall and aspiration precautions. Will continue neurology consultation initiated in ED. Will have as needed meclizine for vertiginous symptoms. Will continue to cycle cardiac enz ymes to be cautious but lower suspicion for cardiac event. #2. Thrombocytopenia, appears new chronicity although has occasionally been noted on previous remote labs: Admission CBC with platelets 124, cautiously adding aspirin, more recent labs have been normal range, will trend CBC. #3. Hypertension: Will maintain permissive hypertension given presentation as noted with urine agents per stroke protocol, add back regimen once clinically appropriate. #4. Hyperlipidemia: Not on statin therapy, given presentation as noted #1 adding moderate dose regimen, FLP in AM as noted #1. #5. Chronic Kidney Disease Stage II per GFR trending: Admission BUN/Cr 21/1.15,GFR 64, baseline renal function primarily 0.9-1.1, repeat BMP in AM. #6. Chronic asthma with allergic rhinitis: Will temporally hold home inhaler inthe interim maintainon ATC budesonide therapy,. Albuterol, continue patient home montelukast regimen. #7. Former tobacco use: Encourage continued tobacco cessation. #8. Obesity: Weight loss and lifestyle changes encouraged. #9. Anxiety and depression: Will continue patient home nortriptyline regimen, encourage continued outpatient follow-up and evaluation as previously arranged. #10. Chronic lumbar back pain: Maintain on fall precautions, encourage offloading, therapies consulted as noted above. #11. BPH with obstructive pathology: Will continue patient home Flomax regimen,monitor for retention. #12. GERD: Will continue patient on PPI. #13. DVT prophylaxis: Lovenox cautiously given #2 and addition of ASA given #1 as noted. #14. CODE status: Patient MARCO ANTONIO is his who is present and living will is currently in place. Discussed CODE status at length including difference betweenFULL code, DNR-CCA and DNR-CC status. Following discussions about the differences in these status, requested Full Code status. Charges/Coding Visit Charges Inpatient E&M: 36041 Init Hosp L3 11/25/24 2150 Cosigner Signature (if applicable): CC: Dr. Megan Garcia MD; Dr. Tre García MD~ Signed [facility]06-28-2025 Discharge summary [facility] Medical Records Department [address] [place] [address] Emergency Department Summary 11/25/24 MR#: [id number] Acct: [id number] Name: VALENTINA CABRERA Rep #:[id number] : 1945 79 From: Neo Clifford DO PCP: Dr. Tre García MD Status:REG E R Location: ED HPI History of Present Illness Chief Complaint: Dizziness Narrative Narrative: Patient is a 79-year-old male past medical history of hypertension, GERD, asthma, depression, hyperlipidemia who presented to the emergency department with a chief complaint of dizziness, changes in vision. Patient states that he was sitting down watching TV when all of a sudden he had blurry vision and then after this he noted that he was very dizzy and things were spinning. He states that nothing like this has happened before and he states that he does have vertigo in the past but states thatthis feels very different to him. Patient denies any head injuries or trauma denies any blood thinning medications. [facility] Medical History (Updated 11/25/24 @ 21:[address] Neo Clifford DO) Former tobacco use Obesity CKD (chronic kidney disease), stage II Allergic rhinitis Anxiety and depression Constipation Chronic low back pain BPH (benign prostatic hyperplasia) Hyperlipidemia Asthma COVID-19 Hypertension GERD (gastroesophageal reflux disease) Home Medications ?Medication ?Instructions ?Recorded ?Last Taken ?Type polyethylene glycol 3350 17 gram 17 g PO DAILY PRN Con stipation 11/20/13 11/20/13 07:00 History oral powder packet lisinopril 5 mg tablet 5 mg PO DAILY 08/28/20 Unkno wn History tamsulosin 0.4 mg capsule 0.4 mg PO QHS 06/16/21 Unkno wn History albuterol sulfate 90 mcg/actuation 2 inh inhalation Q6 H PRN shortness 05/06/23 Unknown History breath activated powder inhaler of breath mometasone-formoterol HFA 200 2 puff inhalation BID Unknown History mcg-5 mcg/actuation aerosol inhaler (Dulera) montelukast 10 mg tablet 10 mg PO DAILY 05/06/23 Unkn own History nortriptyline 50 mg capsule 50 mg PO BID 06/02/23 Unkn own History omeprazole 10 mg capsule,delayed 40 mg PO DAILY Unknown History release Allergy/AdvReac Type Severity Reaction Status Date / Time No Known Allergies Allergy Verified 11/25/24 20:06 Family History Mother Depression CVA (cerebral vascular accident) Anxiety Hypertension Father Pancreatic cancer Surgical History Hx of cataract extraction Social History (Updated 11/25/24 @ 20:[address] Megan Garcia MD) household members: spouse Smoking Status: Former smoker alcohol intake: never substance use type: does not use ROS ROS ED ROS Narrative Constitutional: Complains of dizziness as noted above denies headache, fever, chills, lightheadedness Eyes: Complains of changes in vision as noted above but states that this is since resolved Cardiovascular: Denies chest pain Respiratory: Denies any wheezing or shortness of breath Abdomen: Denies abdominal pain nausea vomit diarrhea : Denies urinary symptoms Neurological: Denies numbness, wheeze, tingling Musculoskeletal: Denies back pain Skin: Denies any rashes or lesions EXAM Physical Exam Narrative Exam Narrative: General: Patient was lying in bed rest comfortably did not appear to be acute distress Head: Atraumatic, normocephalic Eyes: PERRL bilaterally, EOMI bilateral, no conjunctival injection noted Neck: Soft and supple, trachea midline Cardiovascular: Regular rate and rhythm no murmurs gallops rubs noted Respiratory: Clear to auscultation bilaterally no rales rhonchi or wheezes noted Abdomen: Soft, nondistended, no tenderness to palpation Extremities: Radial pulses +2/4 in the bilateral upper extremities, +5/5 strength noted in the bilateral upper and lower extremities Neurological: Patient was following commands knew that he was at [facility] year is 2024. NIHof 0 GCS 15 patient completed finger-nose testing bilaterally with any difficulty Skin: Warm, dry, intact no rashes or lesions noted Const Vital Signs: 11/25/24 20:06 11/25/24 20:13 11/25/24 20:18 Temperature 97.9 F Temperature Source Oral Pulse Rate 85 86 Respiratory Rate 13 16 Blood Pressure 133/74 H 133/74 H Blood Pressure Mean 93 93 Pulse Ox 93 93 Oxygen Delivery Method Room Air Room Air Room Air 11/25/24 20:28 11/25/24 20:43 11/25/24 21:13 Temperature Temperature Source Pulse Rate 91 90 88 Respiratory Rate 25 H 15 13 Blood Pressure 115/92 H 133/80 H 141/74 H Blood Pressure Mean 99 97 96 Pulse Ox 95 92 97 Oxygen Delivery Method Room Air Room Air Room Air MDM MDM MDM Narrative Medical decision making narrative: Patient is a 79-year-old male who presented to the emergency department the chief complaint of changes in vision which has since resolved and dizziness. Onthe differential diagnose includes but not limited to intracranial hemorrhage, TIA, ischemic stroke, posterior circulation stroke, electrolyte abnormality, hypoglycemia, peripheral vertigo although his symptoms cannot be recreated here in the emergency department. Patient is not a tenecteplase candidate as his symptoms are improving at this point in time. Patient CBC reviewed showed no evidence leukocytosis white blood count normal at7.8, hemoglobin stable at 14.2, platelet count was 124. Patient INR normal at 1, PT 13.7. Patient sodium normal 140, potassium normal at 4.4, creatinine normal at 1.15. Patient troponin was 39 delta troponin pending EKGshowed sinusrhythm with a rate of 86 bpm. Patient's glucose was noted to be 99. Patient chest x-rayreviewed by myself and by radiology showed no acute cardiopulmonary processes. Patient CT head and brain without contrast showed no acute cranial findings. Patient CTA head and neck showed no large vessel occlusion aneurysm or AVM. Patient was evaluated by teleneurology Dr. Cooley who is recommending admission for further stroke workup. Patient's case will be discussed with hospitalist for admission. Patient was given 325 mg of aspirin. Discussed case with hospitalist Dr. Garcia who accept patient for admission. Patient notified is agreeable with this plan all questions and concerns were answered at bedside Lab Data Labs: Laboratory Results - last 24 hr 11/25/24 11/25/24 19:55 20:11 WBC 7.8 RBC 4.49 L Hgb 14.2 Hct 40.9 MCV 91.1 MCH 31.6 MCHC 34.7 RDW Std Deviation 45.5 H RDW Coeff of Chucho 13.5 Plt Count 124 L MPV 9.5 Immature Gran % (Auto) 0.400 Neut % (Auto) 41.5 L Lymph % (Auto) 52.1 H Perkins % (Auto) 5.2 Eos % (Auto) 0.4 Baso % (Auto) 0.4 Absolute Neuts (auto) 3.2 Absolute Lymphs (auto) 4.07 Nucleated RBC % 0 PT 13.7 INR 1.0 APTT 25.8 Sodium 140 Potassium 4.4 Chloride 106 Carbon Dioxide 21.3 Anion Gap 13 BUN 21 H Creatinine 1.15 Estim Creat Clear Calc 56.26 Est GFR (MDRD) Non-Af 64 BUN/Creatinine Ratio 18.3 Glucose 99 Calcium 9.4 Troponin T High Sens 39 H POC Glucose 120 H Radiography Diagnostic Testing: Clinical Impression(s) from Imaging Studies Brain CT 11/25/24 20:13 IMPRESSION: No acute intracranial finding. Dr. Fam discussed these findings via telephone with Dr. Clifford at 8:31 pm on 11/25/24. Reading Location: [id number] Chest X-Ray 11/25/24 20:13 IMPRESSION: No significant change since last exam. Reading Location: [id number] Head/Neck CTA 11/25/24 20:14 IMPRESSION: No large vessel occlusion, aneurysm or AVM. Reading Location: [facility] Discharge Plan Triage Chief Complaint: Dizziness ED Provider: Neo Clifford Dx/Rx/DC Orders Clinical Impression: Dizziness, Hyperlipidemia, Hypertension, Change in vision Prescriptions: No Action Dulera 200-5 mcg/actuation HFA aerosol inhaler 2 puff inhalation BID albuterol sulfate 90 mcg/actuation aerosol powdr breath activated 2 inh inhalation Q6H PRN (Reason: shortness of breath) montelukast 10 mg tablet 10 mg PO DAILY nortriptyline 50 mg capsule 50 mg PO BID polyethylene glycol 3350 17 GM powder in packet 17 g PO DAILY PRN (Reason: Constipation) Patient Comments: constipation lisinopril 5 MG tablet 5 mg PO DAILY omeprazole 10 mg capsule,delayed release(DR/EC) 40 mg PO DAILY tamsulosin 0.4 mg capsule 0.4 mg PO QHS Primary Care Provider: Tre García Chi Referrals: Tre García Chi, MD [Primary Care Provider] - Print Language: [place] Disposition Disposition: Acute Care [facility] What to do if you have Problems For any increased pain, shortness of breath, bleeding, nausea or vomiting, chestpain, or any unexpected problems, contact your Primary Care Provider. Call [facility] ([phone]) or report tothe closest Emergency Room. Call 911 if necessary. 11/25/242134 Cosigner Signature (if applicable): CC: Dr. Tre García MD ~ Signed [facility]06-28-2025 Radiology Diagnostic study note [facility] Imaging Services [address] [place] [id number] Chest 1 View (Portable) MR#: [id number] Acct: [id number] Name: VALENTINA CABRERA Rep #: [id number] : 1945 M 79 From: Katie Fam MD PCP: Dr. Tre García MD Status: REG E R Study:Chest 1 View (Portable) Date of Exam: 11/25/24 Exam# [id number] Ordering Dr: Enedina Clifford DO PROCEDURE: CHEST 1 VIEW (PORTABLE) 11/25/2024 REASON FOR EXAM: DIZZY/STROKE TECHNIQUE: Frontal view of the chest. COMPARISON: CTA chest 02/28/2024, chest radiograph 06/14/2021. FINDINGS: Hardware: None. Heart: The heart size is normal. Lungs: Low lung volumes. No focal consolidation, pleural effusion or pneumothorax. Bones: Degenerative changes are identified within the thoracic spine. RAD/Chest 1 View (Portable) IMPRESSION: No significant change since last exam. Reading Location: [facility] CC: Dr. Tre García MD; Dr. Neo Clifford DO ~ Books Salesperson: Signed [facility]06-28-2025 Radiology Diagnostic study note [facility] Imaging Services [address] [place] [address] STROKE CTA Head AND Neck W/Con MR#: [id number] Acct: [id number] Name: VALENTINA CABRERA Rep #: [id number] : 1945 M 79 From: Katie Fam MD PCP: Dr. Tre García MD Status: REG E R Study:STROKE CTA Head AND Neck W/Con Date of Exam: 11/25/24 Exam# [id number] Ordering Dr: Enedina Clifford DO PROCEDURE: STROKE CTA HEAD AND NECK W/CON 11/25/2024 REASON FOR EXAM: NEURO DEFICIT, ACUTE, STROKE SUSPECTED TECHNIQUE: STROKE CTA HEAD AND NECK W/CON Multiplanar Sagittal and Coronal images were obtained. 3D post processing was performed CONTRAST: Isovue 370 VOLUME: 100 mL One or more dose reduction techniques were used (e.g., Automated exposure control, adjustment of the mA and/or kV according to patient size, use of iterative reconstruction technique). RADIATION DOSE SUMMARY: DLP: 700 mGycm COMPARISON: Same-day noncontrast CT head, CT head 08/15/2023. FINDINGS: See same day CT noncontrast head for discussion of nonvascular findings. CTA neck: Two vessel aortic arch without significant plaque or stenosis. The origins of the bilateral vertebral arteries are widely patent. Minimal calcific plaque of the right cervical carotid artery. No focal stenosis or narrowing by NASCET criteria of the bilateral cervical carotid arteries. CTA head: The bilateral carotid siphons are widely patent. The bilateral anterior, middle and posterior cerebral arteries are widely patent. No aneurysm or AVM. Major venous structures: Unremarkable. Other findings: Cervical and thoracic spondylosis. Small left maxillary sinus retention cyst or polyp. CT/STROKE CTA Head AND Neck W/Con IMPRESSION: No large vessel occlusion, aneurysm or AVM. Reading Location: [facility] CC: Dr. Tre García MD; Dr. Neo Clifford DO ~ Books Salesperson: Signed [facility]06-28-2025 Radiology Diagnostic study note [facility] Imaging Services [address] [place], [place] [address] STROKE Brain/Head without Cont MR#: [id number] Acct: [id number] Name: VALENTINA CABRERA Rep #: [id number] : 1945 M 79 From: Katie Fam MD PCP: Dr. Tre García MD Status: REG E R Study:STROKE Brain/Head without Cont Date of Exam: 11/25/24 Exam# [id number] Ordering Dr: Enedina Clifford DO EXAM: STROKE BRAIN/HEAD WITHOUT CONT CLINICAL HISTORY: 79 y/o M with NEURO DEFICIT, ACUTE, STROKE SUSPECTED. Dizzy, blurred vision. COMPARISON: CT head 08/15/2023. TECHNIQUE: Routine CT imaging of the head without IV contrast. Additional multiplanar reformats were obtained. Dose reduction techniques were used including intermediate exposure control (AEC),iterative reconstruction technique, and/or mA and/or KV dose adjustments based on patient's size. FINDINGS: The ventricles, sulci and cisterns are normal for patient age. There is no evidence of acute intracranial hemorrhage or herniation. There is no midline shift, mass effect, or extra-axial collection. Mild scattered supratentorial white matter hypodensities. The cavazos and white matter interfaces are otherwise maintained. Prior ocular lens replacements. The visualized paranasal sinuses and mastoids are unremarkable. No acute calvarial fracture or scalp hematoma. CT/STROKE Brain/Head without Cont IMPRESSION: No acute intracranial finding. Dr. Fam discussed these findings via telephone with Dr. Clifford at 8:31 pm on 11/25/24. Reading Location: [facility] CC: Dr. Tre García MD; Dr. Neo Clifford DO ~ Books Salesperson: Signed [facility]06-28-2025 Discharge summary Author Neo Clifford [facility] Note Date/Time November 25, 2024 9:35 pm [facility] Medical Records Department [address] [place] [address] Emergency Department Summary 11/25/24 MR#: [id number] Acct: [id number] Name: VALENTINA CABRERA Rep #:[id number] : 1945 79 From: Neo Clifford DO PCP: Dr. Tre García MD Status:REG E R Location: ED HPI History of Present Illness Chief Complaint: Dizziness Narrative Narrative: Patient is a 79-year-old male past medical history of hypertension, GERD, asthma, depression, hyperlipidemia who presented to the emergency department with a chief complaint of dizziness, changes in vision. Patient states that he was sitting down watching TV when all of a sudden he had blurry vision and then after this he noted that he was very dizzy and things were spinning. He states that nothing like this has happened before and he states that he does have vertigo in the past but states that this feels very different to him. Patient denies any head injuries or trauma denies any blood thinning medications. [facility] Medical History (Updated 11/25/24 @ 21:[address] Neo Clifford DO) Former tobacco use Obesity CKD (chronic kidney disease), stage II Allergic rhinitis Anxiety and depression Constipation Chronic low back pain BPH (benign prostatic hyperplasia) Hyperlipidemia Asthma COVID-19 Hypertension GERD (gastroesophageal reflux disease) Home Medications ?Medication ?Instructions ?Recorded ?Last Taken ?Type polyethylene glycol 3350 17 gram 17 g PO DAILY PRN Con stipation 04/19/13 04/19/13 07:00 History oral powder packet lisinopril 5 mg tablet 5 mg PO DAILY 08/28/20 Unkno wn History tamsulosin 0.4 mg capsule 0.4 mg PO QHS 06/16/21 Unkno wn History albuterol sulfate 90 mcg/actuation 2 inh inhalation Q6 H PRN shortness 05/06/23 Unknown History breath activated powder inhaler of breath mometasone-formoterol HFA 200 2 puff inhalation BID Unknown History mcg-5 mcg/actuation aerosol inhaler (Dulera) montelukast 10 mg tablet 10 mg PO DAILY 05/06/23 Unkn own History nortriptyline 50 mg capsule 50 mg PO BID 06/02/23 Unkn own History omeprazole 10 mg capsule,delayed 40 mg PO DAILY Unknown History release Allergy/AdvReac Type Severity Reaction Status Date / Time No Known Allergies Allergy Verified 11/25/24 20:06 Family History Mother Depression CVA (cerebral vascular accident) Anxiety Hypertension Father Pancreatic cancer Surgical History Hx of cataract extraction Social History (Updated 11/25/24 @ 20:[address] Megan Garcia MD) household members: spouse Smoking Status: Former smoker alcohol intake: never substance use type: does not use ROS ROS ED ROS Narrative Constitutional: Complains of dizziness as noted above denies headache, fever, chills, lightheadedness Eyes: Complains of changes in vision as noted above but states that this is since resolved Cardiovascular: Denies chest pain Respiratory: Denies any wheezing or shortness of breath Abdomen: Denies abdominal pain nausea vomit diarrhea : Denies urinary symptoms Neurological: Denies numbness, wheeze, tingling Musculoskeletal: Denies back pain Skin: Denies any rashes or lesions EXAM Physical Exam Narrative Exam Narrative: General: Patient was lying in bed rest comfortably did not appear to be acute distress Head: Atraumatic, normocephalic Eyes: PERRL bilaterally, EOMI bilateral, no conjunctival injection noted Neck: Soft and supple, trachea midline Cardiovascular: Regular rate and rhythm no murmurs gallops rubs noted Respiratory: Clear to auscultation bilaterally no rales rhonchi or wheezes noted Abdomen: Soft, nondistended, no tenderness to palpation Extremities: Radial pulses +2/4 in the bilateral upper extremities, +5/5 strength noted in the bilateral upper and lower extremities Neurological: Patient was following commands knew that he was at [facility] year is 2024. NIH of 0 GCS 15 patient completed finger-nose testing bilaterally with any difficulty Skin: Warm, dry, intact no rashes or lesions noted Const Vital Signs: 11/25/24 20:06 11/25/24 20:13 11/25/24 20:18 Temperature 97.9 F Temperature Source Oral Pulse Rate 85 86 Respiratory Rate 13 16 Blood Pressure 133/74 H 133/74 H Blood Pressure Mean 93 93 Pulse Ox 93 93 Oxygen Delivery Method Room Air Room Air Room Air 11/25/24 20:28 11/25/24 20:43 11/25/24 21:13 Temperature Temperature Source Pulse Rate 91 90 88 Respiratory Rate 25 H 15 13 Blood Pressure 115/92 H 133/80 H 141/74 H Blood Pressure Mean 99 97 96 Pulse Ox 95 92 97 Oxygen Delivery Method Room Air Room Air Room Air MDM MDM MDM Narrative Medical decision making narrative: Patient is a 79-year-old male who presented to the emergency department the chief complaint of changes in vision which has since resolved and dizziness. Onthe differential diagnose includes but not limited to intracranial hemorrhage, TIA, ischemic stroke, posterior circulation stroke, electrolyte abnormality, hypoglycemia, peripheral vertigo although his symptoms cannot be recreated here in the emergency department. Patient is not a tenecteplase candidate as his symptoms are improving at this point in time. Patient CBC reviewed showed no evidence leukocytosis white blood count normal at7.8, hemoglobin stable at 14.2, platelet count was 124. Patient INR normal at 1, PT 13.7. Patient sodium normal 140, potassium normal at 4.4, creatinine normal at 1.15. Patient troponin was 39 delta troponin pending EKG showed sinusrhythm with a rate of 86 bpm. Patient's glucose was noted to be 99. Patient chest x-ray reviewed by myself and by radiology showed no acute cardiopulmonary processes. Patient CT head and brain without contrast showed no acute cranial findings. Patient CTA head and neck showed no large vessel occlusion aneurysm or AVM. Patient was evaluated by teleneurology Dr. Cooley who is recommending admission for further stroke workup. Patient's case will be discussed with hospitalist for admission. Patient was given 325 mg of aspirin. Discussed case with hospitalist Dr. Garcia who accept patient for admission. Patient notified is agreeable with this plan all questions and concerns were answered at bedside Lab Data Labs: Laboratory Results - last 24 hr 11/25/24 11/25/24 19:55 20:11 WBC 7.8 RBC 4.49 L Hgb 14.2 Hct 40.9 MCV 91.1 MCH 31.6 MCHC 34.7 RDW Std Deviation 45.5 H RDW Coeff of Chucho 13.5 Plt Count 124 L MPV 9.5 Immature Gran % (Auto) 0.400 Neut % (Auto) 41.5 L Lymph % (Auto) 52.1 H Perkins % (Auto) 5.2 Eos % (Auto) 0.4 Baso % (Auto) 0.4 Absolute Neuts (auto) 3.2 Absolute Lymphs (auto) 4.07 Nucleated RBC % 0 PT 13.7 INR 1.0 APTT 25.8 Sodium 140 Potassium 4.4 Chloride 106 Carbon Dioxide 21.3 Anion Gap 13 BUN 21 H Creatinine 1.15 Estim Creat Clear Calc 56.26 Est GFR (MDRD) Non-Af 64 BUN/Creatinine Ratio 18.3 Glucose 99 Calcium 9.4 Troponin T High Sens 39 H POC Glucose 120 H Radiography Diagnostic Testing: Clinical Impression(s) from Imaging Studies Brain CT 11/25/24 20:13 IMPRESSION: No acute intracranial finding. Dr. Fam discussed these findings via telephone with Dr. Clifford at 8:31 pm on 11/25/24. Reading Location: [facility] Chest X-Ray 11/25/24 20:13 IMPRESSION: No significant change since last exam. Reading Location: [facility] Head/Neck CTA 11/25/24 20:14 IMPRESSION: No large vessel occlusion, aneurysm or AVM. Reading Location: [facility] Discharge Plan Triage Chief Complaint: Dizziness ED Provider: Neo Clifford Dx/Rx/DC Orders Clinical Impression: Dizziness, Hyperlipidemia, Hypertension, Change in vision Prescriptions: No Action Dulera 200-5 mcg/actuation HFA aerosol inhaler 2 puff inhalation BID albuterol sulfate 90 mcg/actuation aerosol powdr breath activated 2 inh inhalation Q6H PRN (Reason: shortness of breath) montelukast 10 mg tablet 10 mg PO DAILY nortriptyline 50 mg capsule 50 mg PO BID polyethylene glycol 3350 17 GM powder in packet 17 g PO DAILY PRN (Reason: Constipation) Patient Comments: constipation lisinopril 5 MG tablet 5 mg PO DAILY omeprazole 10 mg capsule,delayed release(DR/EC) 40 mg PO DAILY tamsulosin 0.4 mg capsule 0.4 mg PO QHS Primary Care Provider: Tre García Chi Referrals: Tre García Chi, MD [Primary Care Provider] - Print Language: [place] Disposition Disposition: Acute Care Hospital [facility] What to do if you have Problems For any increased pain, shortness of breath, bleeding, nausea or vomiting, chestpain, or any unexpected problems, contact your Primary Care Provider. Call [facility] ([phone]) or report to the closest Emergency Room. Call 911 if necessary. 11/25/242134 <Electronically signed by Neo Clifford DO> Cosigner Signature (if applicable): CC: Dr. Tre García MD ~ Signed [facility] Work Phone: 1(188) 134-552606-01-2025 Evaluation note* Diagnosis Onset Date Resolution Status Admit Date Change in vision acute October 9:27pm Dizziness acute November 25 9:27pm Hyperlipidemia acute November 25, 2024 9:27pm TIA (transient ischemic attack) acut e November 25, 2024 9:27pm Hypertension chronic November 25, 2 025 9:27pm [facility] Work Phone: 1(252) 613-751712-27-2024 History of Present illness Narrative* Genie Bustamante MD - 05/26/2024 2:15 PM EST Images from the original note were not included. . [facility] [place] Note Patient name: Valentina Cabrera PCP: Tre García MD CC: Follow-up airways disease HPI: Valentina Cabrera 79 year old male non-smoker with PMH significant for GERD, BPH, HTN, allergies previously treated with immunotherapy, eventration of the diaphragm, depression and chronic cough. Previously negative methacholine challenge test with referral to Dr. Roca for possible vocalcord dysfunction but patient was started on ICS by his primary care physician with resolution of his cough. Was on Dulera, Singulair and as needed albuterol. Recent history notable for COVID infection Isabela of this past year resulting in worsening of his cough and shortness of breath. Patient was actually hospitalized at [facility], hypoxemic, received remdesivir and dexamethasone and actually discharged on supplemental oxygen which he was subsequently able to discontinue. His current inhaled therapy was changed to Breztri and he presents today for follow-up visit. He feels improved on the Breztri. No significant coughing or chest congestion. Less shortness of breath andimproved endurance. He denies any wheezing or chest tightness. Pulmonary function test performed at [facility] shows small airways obstruction with worsening of his airflow postbronchodilator. DATA: PFT 02/2024 [facility]: FVC 3.86 L 103% FEV1 2.62 [...] other lower urinary tract symptoms (LUTS) 07/05/2007 nursing home (current) use of inhaled steroids Lumbar discogenic [...] which included preparing to see the patient, [id number] patient care, completing clinical documentation, obtaining and/or reviewing separately obtained history, performing a medically appropriate examination, and independently interpreting r esults (not separately reported). Genie Bustamante MD [facility] [place] documented in this encounterMer[facility]12-27-2024 NoteHNO ID: [id number] Author: GENIE BUSTAMANTE MD Service: ? Author Type: Physician Type: Progress Notes Filed: 05/26/2024 17:25 Note Text: . [facility] [place] [facility] Patient name: Valentina Cabrera PCP: Tre [...] of breath. Patient was actually hospitalized at [facility], hypoxemic, received remdesivir and dexamethasone andactually discharged on supplemental oxygen which he was subsequently able to discontinue. His current inhaled therapy was changed to Breztri and he presents today for follow-up visit. He feels improved on the Breztri. No significant coughing or chest congestion. Less shortness of breath and improved endurance. He denies any wheezing or chest tightness. Pulmonary function test performed at [facility] shows small airways obstruction with worsening of his airflow postbronchodilator. DATA: PFT 02/2024 [facility]: FVC 3.86 L 103% FEV1 2.62 [...] other lower urinary tract symptoms (LUTS) 07/05/2007 [employer] (current) use of inhaled steroids Lumbar discogenic [...] Normocephalic, no masses, lesions, (more content not included)...[facility]12-18-2024 Evaluation note* Diagnosis Onset Date Resolution Status Admit Date Nonhealing nonsurgical wound acute May 17, 2024 9:00am Skin tear of forearm without complication acute May 17, 024 9:00am Wound, open, arm, forearm acute May 17, 2024 9:00am [facility] Work Phone: [phone]) 950-485310-10-2024 Telephone encounter Note* Telephone Encounter - Eunice Alvarado MA - 03/09/2024 4:26 PM EDT PFTs dated 03/06/[address] [facility] scanned into TPACK for review. Eunice Alvarado MA View External Procedures - Pulmonary [ID [id number]] [facility]10-10-2024 Miscellaneous Notes* Telephone Encounter - Eunice Alvarado MA - 03/09/2024 4:26 PM EDT PFTs dated 03/06/[address] [facility] scanned into TPACK for review. Eunice Alvarado MA View External Procedures - Pulmonary [ID [id number]] documented in this encounterMercy Health [facility]09-25-2024 History of Present illness Narrative* Ashley Samayoa RT(R) - 02/23/2024 2:00 PM EDT Radiology [...] PATIENT PRESENTS WITH AN IMPLANTABLE OR ATTACHED FURNACE CHARGER: No RADIOLOGY DEPARTMENT: General X-ray: Exam(s) Completed: Chest X-Ray PERIPHERAL IV DATA: Not applicable SIGNED BY: RT Mark(Tony) February 23, 2024 1:47 PM documented in this encounterMercy Health [facility]09-25-2024 NoteHNO ID: [id number] Author: ASHLEY SAMAYOA RT(Tony) Service: Radiology Author Type: Technologist Type: Progress [...] PATIENT PRESENTS WITH AN IMPLANTABLE OR ATTACHED FURNACE CHARGER: No RADIOLOGY DEPARTMENT: General X-ray: Exam(s) Completed: Chest X-Ray PERIPHERAL IV DATA: Not applicable SIGNED BY: RT Mark(R) February 23, 2024 1:47 [facility]09-25-2024 History of Present illness Narrative* Becky Fierro [...] albuterol. Patient was rec ently seen in [facility] for URI and Covid test was [...] other lower urinary tract symptoms (LUTS) 07/05/2007 nursing home (current) use of inhaled steroids Lumbar discogenic [...] COVID-19 original vaccine, age 12+ yr, monovalent (SoundCure-BIONTPlatiza - [place] TOP) 08/29/2021 COVID-19 original vaccine, age 12+ yr, monovalent (PFIZER-BIONTECH - PURPLE TOP) 07/26/2020 08/16/2020 02/21/2021 COVID-19 vaccine, age 12+ yr (SoundCure-BIONTPlatiza) 02/22/2023 08/20/2023 COVID-19 vaccine, age 12+ yr, bivalent (SoundCure-BIONTPlatiza) 03/13/2022 diphtheria tetanus (DT) vaccine, pediatric 11/02/1996 [...] Collected: 04/19/2023 11:03 AM (Final result) Narrative: [facility] [address] [place] [address] Test Date: 2023-04-19 Pat Name: VALENTINA CABRERA Department: Room: Gender: Male Ticket Seller: : 1945 Requested By: Order Number: [id number] Reading MD: Genie Bustamante MD Interpretive Statements ATS/ERS acceptability and repeatability standards for spirometry met. IMPRESSION: Spirometry is normal. Small airways obstruction noted. Maximum inspiratory and expiratory pressures are normal. Electronically Signed On 04-19-2023 12:36:10 EST by Genie Bustamante MD ID: [id number] Name: VALENTINA CABRERA Race: White Ht: 67.17 [...] 5.40 FEF50/FIF50 0.38 90-100 FIVC (L) 4.17 ORB63-13 (L/sec) 1.25 0.73 1.92 3.66 65 Time [...] indeterminate fractures, likely representing old rib fractures. Books Salesperson: TASHI Transcribe Date/Time: Aug 19 2022 9:33A [...] necessary. Becky Fierro PA-C documented in this encounterMercy Health [facility]09-25-2024 NoteHNO ID: [id number] Author: BECKY FIERRO PA-C Service: ? Author Type: Physician Learning Center Instructor Type: Progress Notes Filed: 02/23/2024 14:17 Note [...] needed albuterol. Patient was recently seen in [facility] for URI and Covid test was [...] other lower urinary tract symptoms (LUTS) 07/05/2007 [employer] (current) use of inhaled steroids Lumbar discogenic [...] quadrivalent, PF (FLUZONE HIGH-DOSE) (more content not included)...[facility]08-31-2024 NoteHNO ID: [id number] Author: FER RUELAS PA Service: ? Author Type: Physician Learning Center Instructor Type: Progress Notes Filed: 01/29/2024 12:49 Note Text: This note was created using Quiklyriter. Carine Cabrera is a 79 year old male. HPI 79-year-old male presents for cough, congestion x 1 day. Patient states yesterday he started getting cough, sore throat, nasal congestion and chest congestion. He is was recently sick with similar symptoms as well as his grandson. Patient states he has a low-grade fever yesterday. No fever today. He has not taken anything [id number] for symptoms. He does have history of [...] lower urinary tract symptoms (LUTS) No date: nursing home (current) use of inhaled steroids 06/05/2010: Lumbar [...] for treatment. - S (more content not included)...[facility]08-31-2024 History of Present illness Narrative* Fer Ruelas PA - 01/29/2024 12:47 PM EDT This note was created using Quiklyriter. Subjective Valentina Cabrera is a 79 year old male. HPI 79-year-old male presents for cough, congestion x 1 day. Patient states yesterday he started getting cough, sore throat, nasal congestion and chest congestion. He is was recently sick with similar symptoms as well as his grandson. Patient states he has a low-grade fever yesterday. No fevertoday. He has not taken anything [id number] for symptoms. He does have history of [...] lower urinary tract symptoms (LUTS) No date: nursing home (current) use of inhaled steroids 06/05/2010: Lumbar [...] ER evaluation. CHARLOTTE Henry documented in this encounterMercy [facility]06-11-2024 History of Present illness Narrative* Genie Bustamante MD - 11/09/2023 10:30 AM EDT Images from the original note were not included. . [facility] [place] Note Patient name: Valentina Cabrera PCP: Jd [...] and as needed albuterol. At [facility] with AMANDA You, stopped Singulair, continued inhaler, and ordered diaphragm [...] other lower urinary tract symptoms (LUTS) 07/05/2007 [employer] (current) use of inhaled steroids Lumbar discogenic [...] clothes after mowing Genie Bustamante MD [facility] [place] documented in this encounterMercy Health [facility]06-11-2024 NoteHNO ID: [id number] Author: GENIE BUSTAMANTE MD Service: ? Author Type: Physician Type: Progress Notes Filed: 11/09/2023 11:28 Note Text: . [facility] [place] Note Patient name: Valentina Cabrera PCP: Jd [...] other lower urinary tract symptoms (LUTS) 07/05/2007 nursing home (current) use of inhaled steroids Lumbar discogenic [...] 11/03/2011 Colonoscopy COLONOSCOPY SCRN (more content not included)...[facility] 07-02-2023 Miscellaneous Notes* Telephone Encounter - [...] Dulera and needs [facility] supply [facility] but needs initial order to get [facility] [place] He has some of the Dulera 100 mcg/5 left but that is not what he was taking most recently and is asking if that can be doubled up as he was most recently taking 200 mcg/5. Pleasereview and advise. Deirdre Brand LPN documented in this encounterMercy Health Cl[facility]12-04-2023 Miscellaneous Notes* Telephone Encounter - Mayur Kimble APRN.CNP - 05/03/2023 12:05 PM EST The following approved medication requests have been transmitted electronically. Requested Prescriptions Pending Prescriptions Disp Refills lisinopril (ZESTRIL) 5 mg tablet [Pharmacy Med Name: LISINOPRIL TABS 5MG] 90 tablet 3 Sig: take 1 tablet daily Mayur Kimble APRN.POWER BRAKE OPERATOR documented in this encounterMercy Health Cl[facility]11-20-2023 History of Present illness Narrative* Tawana Moore RPFT - 04/19/2023 11:19 AM EST PULM FUNCTION SMARTBLOCK: Provider: Becky Fierro PA-C Assisting Tech: Tawana Moore RPFT MIP/MEP: 1 documented in this encounterMercy Health Cl[facility]10-10-2023 History of Present illness Narrative* Jd Solis [...] other lower urinary tract symptoms (LUTS) 07/05/2007 [employer] (current) use of inhaled steroids Lumbar discogenic [...] Avoidance of triggers recommended - Continue with Parachute Rigger 3. Benign non-nodular prostatic hyperplasia with lower [...] independently gathered by the clinical academic support center director and the remaining scribed note accurately describes [...] AM. Marilin Schaffer Ma documented in this encounterMercy Health [facility]10-02-2023 History of Present illness Narrative* Lulú Goncalves, [...] Discontinued PROCEDURE TYPE: NM Stress: 12.3 mCi [id number] was administered IV for Rest Imaging at 07:12 by Lulú Goncalves. 33.4 mCi [id number] was administered IV for Stress Imaging at 08:35 by Lulú Goncalves. ADMINISTRATION TIME: PATIENT DISCHARGED TO: Ambulatory patient, left [place] department area. A Diagnostic radioactive procedure has taken place, with no further precautions necessary other than routine body substance precautions. More information regarding radiation safety can be found usingthis link: [email or web address] SIGNATURE: RT Juan(Tony) PATIENT NAME: Valentina Cabrera DATE: March 01, 2023 TIME: 09:25 AM PAGER/CONTACT #: documented in this encounterMercy Health Clerm[facility]08-24-2023 History of Present illness Narrative* Becky Fierro PA-C - 01/21/2023 9:30 AM EDT Images from the original note were not included. Patient: Valentina Carbera PCP: Jd Solis MD CC: follow up [...] other lower urinary tract symptoms (LUTS) 07/05/2007 nursing home (current) use of inhaled steroids Lumbar discogenic [...] necessary. Becky Fierro PA-C documented in this encounterMercy Health [facility]07-14-2023 Miscellaneous Notes* Telephone Encounter - Bessy Barron [...] patient. Blanca Bustamante LPN documented in this encounterMercy Health Clermont Hospital07-13-2023 Procedure note* Tawana Moore RPFT - 12/10/2022 [...] 2022 TIME: 9:14 AM documented in this encounterMercy Health Clermont [facility]07-13-2023 History of Present illness Narrative* Tawana Moore RPFT - 12/10/2022 9:13 AM EDT PULM FUNCTION SMARTBLOCK: Provider: Becky Fierro PA-C Assisting Tech: Tawana Moore RPFT Exhaled Nitric Oxide: 1 documented in this encounterRobert Ville [address]-13-2023 History of Present illness Narrative* Becky Fierro [...] other lower urinary tract symptoms (LUTS) 07/05/2007 nursing home (current) use of inhaled steroids Lumbar discogenic [...] Ref Range & Units 2 mo ago [place] IgE <0.35 kU/l <0.35 [place] Class Class 0 Class 0 Eddie [...] necessary. Becky Fierro PA-C documented in this encounterMercy Health Clermont Hospital07-10-2023 Miscellaneous Notes* Telephone Encounter - Bessy Barron LPN - 12/07/2022 9:17 AM EDT Spoke with patient by phone. [facility] to deliver Dulera in 3-5 days. He has 3 days of medication available currently. Advised patient to contact the office should he need a temporary supply of Dulera sent locally. Bessy Barron LPN documented in this encounterMercy Health Clerm[facility]04-21-2023 Miscellaneous Notes* Telephone Encounter - Bessy Barron LPN - 09/18/2022 1:15 PM EDT Patient phones requesting refills as follows: Requested Prescriptions Pending Prescriptions Disp Refills albuterol HFA (PROVENTIL HFA, VENTOLIN HFA) 90 mcg/actuation inhaler 3 Each 3 Sig: Inhale 2 Puffs as instructed every 4 hours as needed for wheezing/shortness of breath. Please review and advise. Bessy Barron LPN documented in this encounterMercy Health Clerm[facility] Hospital04-11-2023 History of Present illness Narrative* Jd Solis MD - 09/08/2022 9:20 AM EDT Chief Complaint Patient presents with: 6 Month Exam HPI Valentina Cabrera is a 77 year old male who presents here today for 6 month follow up. He has an advanced directive, just recently updated it with his Tax Preparer. Will bring updated copy for our records. [...] other lower urinary tract symptoms (LUTS) 07/05/2007 [employer] (current) use of inhaled steroids Lumbar discogenic [...] independently gathered by the clinical academic support center director and the remaining scribed note accurately describes [...] AM. Natalie Youngblood Ma documented in this encounterMer[facility]03-27-2023 Miscellaneous Notes* Telephone Encounter - Kamala Saunders Ma - 08/24/2022 9:31 AM EDT Patient phones requesting refills as follows: He would like a 3 month supply sent to his mail orderpharmacy. Requested Prescriptions Pending Prescriptions Disp Refills mometasone-formoterol (DULERA) 100-5 mcg/actuation inhaler 1 Each 5 Sig: Inhale 2 Puffs as instructed twice daily. Please review and advise. Kamala Saunders Ma documented in this encounterMercy Health Cl[facility]03-22-2023 History of Present illness Narrative* Nallely Caban [...] 19, 2022 9:18 AM documented in this encounterMercy Health Cl[facility]03-22-2023 History of Present illness Narrative* Mich Mathis APRN.LEAH - 08/19/2022 9:06 AM EDT Images from the original note were not included. Subjective HPI HPI aVlentina Cabrera is a 77 year old male [...] other lower urinary tract symptoms (LUTS) 07/05/2007 nursing home (current) use of inhaled steroids Lumbar discogenic [...] - PREDNISONE 10 MG TABLET Mich Mathis APRN.POWER BRAKE OPERATOR documented in this encounterMercy Health [facility]02-09-2023 History of Present illness Narrative* Genie Bustamante MD - 07/09/2022 10:30 AM EST Images from the original note were not included. . [facility] [place] Note Patient name: Valentina Cabrera PCP: Jd [...] Ref Range & Units 2 mo ago [place] IgE <0.35 kU/l <0.35 [place] Class Class 0 Class 0 Eddie [...] other lower urinary tract symptoms (LUTS) 07/05/2007 nursing home (current) use of inhaled steroids Lumbar discogenic [...] sooner with problems Genie Bustamante MD [facility] [place] documented in this encounterMercy [facility]12-14-2022 Instructions* Patient Instructions* Betty Barraza APRN.CNP - 05/13/2022 9:10 AM EST Continue supportive care at home. May use over the counter cold and cough medication as needed. Stay well hydrated. May use Tessalon Perles three times daily for cough. Get lab completed. Start Singulair 10 mg at bedtime. Get repeat chest xray in 1 month. Follow up pending test results or sooner as needed. documented in this encounterMercy Health [facility]12-14-2022 History of Present illness Narrative* Betty Barraza [...] other lower urinary tract symptoms (LUTS) 07/05/2007 [employer] (current) use of inhaled steroids Lumbar discogenic [...] R05.1 - May use Tessalon Perles or ktzr-zvr-[id number] cold and cough medication as needed for [...] discussed and patient voices understanding. Betty Barraza APRN.POWER BRAKE OPERATOR This note was partially generated using The Echo System recognition system. Note was reviewed for accuracy. There may be minor misspellings or grammar miscues with SNAPCARD voice recognition. documented in this encounterMercy Health Cl[facility]12-11-2022 Instructions* Patient Instructions* Moi Plummer APRN.LEAH - 05/10/2022 10:23 AM [...] or concerning to you. documented in this encounterMercy Health Clerm[facility]12-11-2022 History of Present illness Narrative* Moi Plummer APRN.CNP - 05/10/2022 10:11 AM EST Subjective HPI [...] other lower urinary tract symptoms (LUTS) 07/05/2007 nursing home (current) use of inhaled steroids Lumbar discogenic [...] of care. This note was generated using SNAPCARD software. It may contain errors in wording, punctuation, or spelling. Moi Plummer APRN.LEAH documented in this encounterMercy Health [facility]12-04-2022 History of Present illness Narrative* Camila Comer APRN.LEAH - 05/03/2022 12:30 PM EST CC: Patient presents with: Cough: Pt reported chest congestion , x10 days. HPI: Valentnia Cabrera is a 77 year old male [...] other lower urinary tract symptoms (LUTS) 07/05/2007 nursing home (current) use of inhaled steroids Lumbar discogenic [...] plan. Camila Comer APRN.LEAH documented in this encounterMercy [facility]12-01-2022 Miscellaneous Notes* Telephone Encounter - Bere Goodman LPN - 04/30/2022 10:30 AM EST Patient notified of results, verbalizes understanding of instructions. Bere Goodman LPN * Telephone Encounter - Betty Barraza APRN.LEAH - 04/30/2022 9:14 AM EST Can you please call the patient and let him know that his flu and COVID test were negative. I would still recommend that he continue supportive care at home, may use any orfj-wao-kpgagbn coldand cough medications as needed for symptom management. As discussed during office visit if congestion and sinus drainage is getting worse I can send in anantibiotic. Please let me know how he is doing. Thank you. Betty Barraza APRN.POWER BRAKE OPERATOR documented in this encounterMercy Health Clerm[facility]11-11-2022 History of Present illness Narrative* Becky Fierro [...] other lower urinary tract symptoms (LUTS) 07/05/2007 nursing home (current) use of inhaled steroids Lumbar discogenic [...] status normal. Affect normal. No tremor. DATA: [facility] 2013: Negative for bronchial hyperactivity. FEV1 8% [...] V15.09, ICD10: Z91.09 Previously on immunotherapy per [facility], however, stopped with the pandemic. Will check labs and consider adding Singulair to regimen. - IGE BLD - EOSINOPHIL ABS COUNT - ALGN CLARION GRP 4. History of COVID-19 - ICD9: V12.09, ICD10: Z86.16 5. Congenital eventration of diaphragm - ICD9: 756.6, ICD10: Q79.1 Becky Fierro PA-C documented in this encounterMercy Health [facility]10-21-2022 Miscellaneous Notes* Telephone Encounter - Marilin Schaffer [...] his medications was denied. documented in this encounterMercy Health Cl[facility]10-20-2022 Miscellaneous Notes* Telephone Encounter - Jd Solis [...] advise. Bere Goodman LPN documented in this encounterMercy Health Cl[facility]10-13-2022 Miscellaneous Notes* Telephone Encounter - Bessy Barron LPN - 03/12/2022 3:12 PM EDT See separate phone encounter. Bessy Barron LPN documented in this encounterMercy Health Clerm[facility]10-12-2022 History of Present illness Narrative* Jd Solis [...] other lower urinary tract symptoms (LUTS) 07/05/2007 nursing home (current) use of inhaled steroids Lumbar discogenic [...] Lymph (Normal + Reac* 02/23/2022 6.15 (A) Perkins% 02/23/2022 5.0 Abs Perkins 02/23/2022 0.70 Eosin% 02/23/2022 1.0 Abs Eosin 02/23/2022 0.14 Baso% 02/23/2022 0.0 Abs Baso 02/23/2022 0.00 Realym% 02/23/2022 1.0 Weiner % 02/23/2022 2.0 Myelo % 02/23/2022 1.0 [...] Lymph% 01/26/2022 35.8 Abs Lymph 01/26/2022 2.61 Perkins% 01/26/2022 7.0 Abs Perkins 01/26/2022 0.51 Eosin% 01/26/2022 0.5 Abs Eosin [...] independently gathered by the clinical academic support center director and the remaining scribed note accurately describes [...] PM. Natalie Youngblood Ma documented in this encounterMercy Health [facility]10-12-2022 Procedure note* MAICOL Velazco - 03/11/2022 9:12 [...] 2022 TIME: 9:13 AM documented in this encounterMercy Health [facility]10-12-2022 History of Present illness Narrative* MAICOL Velazco - 03/11/2022 9:11 AM EDT PULM FUNCTION SMARTBLOCK: Provider: Genie Bustamante MD Assisting Tech: MAICOL Velazco Spirometry: 1 LV - Box: 1 Exhaled Nitric Oxide: 1 documented in this encounterMercy Health [facility]09-30-2022 History of Present illness Narrative* Genie Bustamante MD - 02/27/2022 1:30 PM EDT Images from the original note were not included. . [facility] [place] Note Patient name: Valentina Cabrera PCP: Jd [...] Chest x-ray without any infiltrates. DATA: [facility] 2014: Negative for bronchial hyperactivity. [...] 1.00 - 4.00 k/uL 6.15 High 2.61 Perkins% % 5.0 7.0 Abs Perkins <0.87 k/uL 0.70 0.51 Eosin% % 1.0 0.5 Abs Eosin <0.46 k/uL 0.14 0.04 Baso% % 0.0 0.3 Abs Baso <0.11 k/uL 0.00 <0.03 Realym% % 1.0 Weiner % % 2.0 Myelo % % 1.0 [...] other lower urinary tract symptoms (LUTS) 07/05/2007 nursing home (current) use of inhaled steroids Lumbar discogenic [...] post COVID syndrome Genie Bustamante MD [facility] [place] documented in this encounterMercy Health [facility]09-28-2022 Miscellaneous Notes* Telephone Encounter - Bere Goodman [...] you. Betty Barraza APRN.CNP documented in this encounterMercy Health [facility]09-26-2022 History of Present illness Narrative* Ashley Samayoa [...] 23, 2022 12:00 PM documented in this encounterMercy Health Cl[facility]09-26-2022 Instructions* Patient Instructions* Betty Barraza APRN.CNP - 02/23/2022 11:46 AM EDT Get lab work & chest Xray done today Start doxycycline twice a day, take with food Continue to take all medication as prescribed Red flag symptoms, go to ER Follow up pending test results or sooner as needed documented in this encounterMercy Health Cl[facility]09-26-2022 History of Present illness Narrative* Betty Barraza [...] other lower urinary tract symptoms (LUTS) 07/05/2007 [employer] (current) use of inhaled steroids Lumbar discogenic [...] APRN.CNP This note was partially generated using SNAPCARD voice recognition system. Note was reviewed for accuracy. There may be minor misspellings or grammar miscues with SNAPCARD voice recognition. documented in this encounterMercy Health [facility]09-19-2022 Miscellaneous Notes* Telephone Encounter - Martha Mccormick - 02/16/2022 9:39 AM EDT patient viewed in [facility]. Martha Mccormick * Telephone Encounter - Camila Comer APRN.CNP - 02/16/2022 7:10 AM EDT Negative for flu and covid documented in this encounterMercy Health [facility]09-18-2022 History of Present illness Narrative* Camila Comer APRN.POWER BRAKE OPERATOR - 02/15/2022 11:24 AM EDT CC: Patient [...] other lower urinary tract symptoms (LUTS) 07/05/2007 nursing home (current) use of inhaled steroids Lumbar discogenic [...] plan. Camila Comer APRN.CNP documented in this encounterMercy Health [facility]09-09-2022 Instructions* Patient Instructions* Betty Barraza APRN.CNP - 02/06/2022 9:27 AM EDT 1.) Flu/COVID test should be back by tomorrow. 2.) May use hqhd-jlf-ebnrlqa cold and cough medications as needed for [...] 6.) Follow-up as needed. documented in this encounterMercy Health [facility]09-09-2022 History of Present illness Narrative* Betty Barraza [...] other lower urinary tract symptoms (LUTS) 07/05/2007 [employer] (current) use of inhaled steroids Lumbar discogenic [...] APRN.LEAH This note was partially generated using SNAPCARD voice recognition system. Note was reviewed for accuracy. There may be minor misspellings or grammar miscues with SNAPCARD voice recognition. documented in this encounterMercy Health [facility]07-06-2022 History of Present illness Narrative* Berkley Roque APRN.CNP - 12/03/2021 10:29 AM EDT Images from [...] which included preparing to see the patient, [id number] patient care, completing clinical documentation, and counseling and educating the patient/family/caregiver, ordering medications/labs and communicating with other healthcare providers. Berkley Roque APRN.CNP December 03, 2021 10:30 AM This note was partially generated using SNAPCARD voice recognition system. Note was reviewed for accuracy. There may be minor misspellings or grammar miscues with Z[employer] voice recognition. documented in this encounterMercy Health [facility]04-06-2022 History of Present illness Narrative* Jd Solis [...] BP at home. Depression: Follows with Berkley oRque. Taking Nortriptyline 50 mg BID. Once stable [...] other lower urinary tract symptoms (LUTS) 07/05/2007 nursing home (current) use of inhaled steroids Lumbar discogenic [...] independently gathered by the clinical academic support center director and the remaining scribed note accurately describes [...] PM. Marilin Schaffer Ma documented in this encounterMercy Health [facility]03-30-2022 Instructions* Patient Instructions* Berkley Roque APRN.CNP - [...] - Call the National Suicide Hotline at 5-151-GANRPYD ( ) or 9-406-194-TALK (3287) - Text 4HOPE to 505345 Medication Update: 1. Nortriptyline 50 mg take 1 capsule twice daily with food and peanut butter Next appointment: --Schedule in 3 months or sooner if needed -- You may call the department appointment line at [phone] to schedule your appointment. -- Please call my nurse Kelly at [phone] or send me a message in [place] with any questions or concerns between appointments. documented in this encounterMercy Health [facility]03-30-2022 History of Present illness Narrative* Berkley Roque [...] which included preparing to see the patient, [id number]-[id number] patient care, completing clinical documentation, and counseling and educating the patient/family/caregiver, ordering medications/labwork. 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 Neoplasm of uncertain behavior of skin 9 06/12/2014 Shortness of breath 09/01/2006 06/12/2014 Abdominal pain, generalized 03/19/200605/31 documented as of this encounter (statuses as of 08/27/2021) [facility] illness Narrative* Problem Noted Date Resolved Date Shortness of breath 02/12/2016 06/29/2016 Achilles tendinitis 10/04/2012 04/17/2015 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 Neoplasm of uncertain behavior of skin 9 06/12/2014 Shortness of breath 09/01/2006 06/12/2014 Abdominal pain, generalized 03/19/200605/31 documented as of this encounter (statuses as of 09/04/2021) [facility] Narrative* Problem Noted Date Resolved Date Shortness of breath 02/12/2016 06/29/2016 Achilles tendinitis 10/04/2012 04/17/2015 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 Neoplasm of uncertain behavior of skin 9 06/12/2014 Shortness of breath 09/01/2006 06/12/2014 Abdominal pain, generalized 03/19/200605/31 documented as of this encounter (statuses as of 12/03/2021) [facility] Narrative* Problem Noted Date Resolved Date Shortness of breath 02/12/2016 06/29/2016 Achilles tendinitis 10/04/2012 04/17/2015 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 Neoplasm of uncertain behavior of skin 9 06/12/2014 Shortness of breath 09/01/2006 06/12/2014 Abdominal pain, generalized 03/19/200605/31 documented as of this encounter (statuses as of 02/06/2022) [facility] Narrative* Problem Noted Date Resolved Date Shortness of breath 02/12/2016 06/29/2016 Achilles tendinitis 10/04/2012 04/17/2015 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 Neoplasm of uncertain behavior of skin 9 06/12/2014 Shortness of breath 09/01/2006 06/12/2014 Abdominal pain, generalized 03/19/200605/31 documented as of this encounter (statuses as of 02/15/2022) [facility] Narrative* Problem Noted Date Resolved Date Shortness of breath 02/12/2016 06/29/2016 Achilles tendinitis 10/04/2012 04/17/2015 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 Neoplasm of uncertain behavior of skin 9 06/12/2014 Shortness of breath 09/01/2006 06/12/2014 Abdominal pain, generalized 03/19/200605/31 documented as of this encounter (statuses as of 02/16/2022) [facility] Narrative* Problem Noted Date Resolved Date Shortness of breath 02/12/2016 06/29/2016 Achilles tendinitis 10/04/2012 04/17/2015 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 Neoplasm of uncertain behavior of skin 9 06/12/2014 Shortness of breath 09/01/2006 06/12/2014 Abdominal pain, generalized 03/19/200605/31 documented as of this encounter (statuses as of 02/23/2022) [facility] Narrative* Problem Noted Date Resolved Date Shortness of breath 02/12/2016 06/29/2016 Achilles tendinitis 10/04/2012 04/17/2015 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 Neoplasm of uncertain behavior of skin 9 06/12/2014 Shortness of breath 09/01/2006 06/12/2014 Abdominal pain, generalized 03/19/200605/31 documented as of this encounter (statuses as of 02/25/2022) [facility] Narrative* Problem Noted Date Resolved Date Shortness of breath 02/12/2016 06/29/2016 Achilles tendinitis 10/04/2012 04/17/2015 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 Neoplasm of uncertain behavior of skin 9 06/12/2014 Shortness of breath 09/01/2006 06/12/2014 Abdominal pain, generalized 03/19/200605/31 documented as of this encounter (statuses as of 02/27/2022) [facility] Narrative* Problem Noted Date Resolved Date Shortness of breath 02/12/2016 06/29/2016 Achilles tendinitis 10/04/2012 04/17/2015 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 Neoplasm of uncertain behavior of skin 9 06/12/2014 Shortness of breath 09/01/2006 06/12/2014 Abdominal pain, generalized 03/19/200605/31 documented as of this encounter (statuses as of 03/11/2022) [facility] Narrative* Problem Noted Date Resolved Date Shortness of breath 02/12/2016 06/29/2016 Achilles tendinitis 10/04/2012 04/17/2015 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 Neoplasm of uncertain behavior of skin 9 06/12/2014 Shortness of breath 09/01/2006 06/12/2014 Abdominal pain, generalized 03/19/200605/31 documented as of this encounter (statuses as of 03/12/2022) [facility]arrative* Problem Noted Date Resolved Date Shortness of breath 02/12/2016 06/29/2016 Achilles tendinitis 10/04/2012 04/17/2015 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 Neoplasm of uncertain behavior of skin 9 06/12/2014 Shortness of breath 09/01/2006 06/12/2014 Abdominal pain, generalized 03/19/200605/31 documented as of this encounter (statuses as of 03/12/2022) [facility]* Problem Noted Date Resolved Date Shortness of breath 02/12/2016 06/29/2016 Achilles tendinitis 10/04/2012 04/17/2015 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 Neoplasm of uncertain behavior of skin 9 06/12/2014 Shortness of breath 09/01/2006 06/12/2014 Abdominal pain, generalized 03/19/200605/31 documented as of this encounter (statuses as of 03/16/2022) [facility]arrative* Problem Noted Date Resolved Date Shortness of breath 02/12/2016 06/29/2016 Achilles tendinitis 10/04/2012 04/17/2015 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 Neoplasm of uncertain behavior of skin 9 06/12/2014 Shortness of breath 09/01/2006 06/12/2014 Abdominal pain, generalized 03/19/200605/31 documented as of this encounter (statuses as of 03/17/2022) [facility]arrative* Problem Noted Date Resolved Date Shortness of breath 02/12/2016 06/29/2016 Achilles tendinitis 10/04/2012 04/17/2015 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 Neoplasm of uncertain behavior of skin 9 06/12/2014 Shortness of breath 09/01/2006 06/12/2014 Abdominal pain, generalized 03/19/200605/31 documented as of this encounter (statuses as of 03/19/2022) [place] [address]-14-2016 History of Past illness Narrative* Problem Noted Date Resolved Date Shortness of breath 02/12/2016 06/29/2016 Achilles tendinitis 10/04/2012 04/17/2015 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 Neoplasm of uncertain behavior of skin 9 06/12/2014 Shortness of breath 09/01/2006 06/12/2014 Abdominal pain, generalized 03/19/200605/31 documented as of this encounter (statuses as of 03/20/2022) [facility]* Problem Noted Date Resolved Date Shortness of breath 02/12/2016 06/29/2016 Achilles tendinitis 10/04/2012 04/17/2015 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 Neoplasm of uncertain behavior of skin 9 06/12/2014 Shortness of breath 09/01/2006 06/12/2014 Abdominal pain, generalized 03/19/200605/31 documented as of this encounter (statuses as of 04/01/2022) [facility]* Problem Noted Date Resolved Date Shortness of breath 02/12/2016 06/29/2016 Achilles tendinitis 10/04/2012 04/17/2015 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 Neoplasm of uncertain behavior of skin 9 06/12/2014 Shortness of breath 09/01/2006 06/12/2014 Abdominal pain, generalized 03/19/200605/31 documented as of this encounter (statuses as of 04/10/2022) [facility]* Problem Noted Date Resolved Date Shortness of breath 02/12/2016 06/29/2016 Achilles tendinitis 10/04/2012 04/17/2015 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 Neoplasm of uncertain behavior of skin 9 06/12/2014 Shortness of breath 09/01/2006 06/12/2014 Abdominal pain, generalized 03/19/200605/31 documented as of this encounter (statuses as of 04/30/2022) [facility]* Problem Noted Date Resolved Date Shortness of breath 02/12/2016 06/29/2016 Achilles tendinitis 10/04/2012 04/17/2015 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 Neoplasm of uncertain behavior of skin 9 06/12/2014 Shortness of breath 09/01/2006 06/12/2014 Abdominal pain, generalized 03/19/200605/31 documented as of this encounter (statuses as of 05/03/2022) [facility]* Problem Noted Date Resolved Date Shortness of breath 02/12/2016 06/29/2016 Achilles tendinitis 10/04/2012 04/17/2015 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 Neoplasm of uncertain behavior of skin 9 06/12/2014 Shortness of breath 09/01/2006 06/12/2014 Abdominal pain, generalized 03/19/200605/31 documented as of this encounter (statuses as of 05/10/2022) [facility]* Problem Noted Date Resolved Date Shortness of breath 02/12/2016 06/29/2016 Achilles tendinitis 10/04/2012 04/17/2015 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 Neoplasm of uncertain behavior of skin 9 06/12/2014 Shortness of breath 09/01/2006 06/12/2014 Abdominal pain, generalized 03/19/200605/31 documented as of this encounter (statuses as of 05/13/2022) [facility]arrative* Problem Noted Date Resolved Date Shortness of breath 02/12/2016 06/29/2016 Achilles tendinitis 10/04/2012 04/17/2015 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 Neoplasm of uncertain behavior of skin 9 06/12/2014 Shortness of breath 09/01/2006 06/12/2014 Abdominal pain, generalized 03/19/200605/31 documented as of this encounter (statuses as of 07/09/2022) [facility]* Problem Noted Date Resolved Date Shortness of breath 02/12/2016 06/29/2016 Achilles tendinitis 10/04/2012 04/17/2015 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 Neoplasm of uncertain behavior of skin 9 06/12/2014 Shortness of breath 09/01/2006 06/12/2014 Abdominal pain, generalized 03/19/200605/31 documented as of this encounter (statuses as of 08/19/2022) [facility] Past illness Narrative* Problem Noted Date Resolved Date Shortness of breath 02/12/2016 06/29/2016 Achilles tendinitis 10/04/2012 04/17/2015 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 Neoplasm of uncertain behavior of skin 9 06/12/2014 Shortness of breath 09/01/2006 06/12/2014 Abdominal pain, generalized 03/19/200605/31 documented as of this encounter (statuses as of 08/24/2022) [facility] History of Past illness Narrative* Problem Noted Date Resolved Date Shortness of breath 02/12/2016 06/29/2016 Achilles tendinitis 10/04/2012 04/17/2015 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 Neoplasm of uncertain behavior of skin 9 06/12/2014 Shortness of breath 09/01/2006 06/12/2014 Abdominal pain, generalized 03/19/200605/31 documented as of this encounter (statuses as of 09/08/2022) [facility] History of Past illness Narrative* Problem Noted Date Resolved Date Shortness of breath 02/12/2016 06/29/2016 Achilles tendinitis 10/04/2012 04/17/2015 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 Neoplasm of uncertain behavior of skin 9 06/12/2014 Shortness of breath 09/01/2006 06/12/2014 Abdominal pain, generalized 03/19/200605/31 documented as of this encounter (statuses as of 09/18/2022) [facility] History of Past illness Narrative* Problem Noted Date Diagnosed Date Resolved Date Shortness of breath 02/12/2016 06/29/19 17 Achilles tendinitis 10/04/2012 04/17/20 15 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 03/25/2006/12/2014 Neoplasm of uncertain behavior of skin 01/23/2009 06/12/2014 Shortness of breath 09/01/2006 06/12/19 15 Abdominal pain, generalized 03/19/2006 06/12/2014 documented as of this encounter (statuses as of 12/07/2022) [facility] History of Past illness Narrative* Problem Noted Date Diagnosed Date Resolved Date Shortness of breath 02/12/2016 06/29/19 17 Achilles tendinitis 10/04/2012 04/17/20 15 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 03/25/20 09 06/12/2014 Neoplasm of uncertain behavior of skin 01/23/2009 06/12/2014 Shortness of breath 09/01/2006 06/12/19 15 Abdominal pain, generalized 03/19/2006 06/12/2014 documented as of this encounter (statuses as of 12/10/2022) [facility] History of Past illness Narrative* Problem Noted Date Diagnosed Date Resolved Date Shortness of breath 02/12/2016 06/29/19 17 Achilles tendinitis 10/04/2012 04/17/20 15 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 03/25/20 09 06/12/2014 Neoplasm of uncertain behavior of skin 01/23/2009 06/12/2014 Shortness of breath 09/01/2006 06/12/19 15 Abdominal pain, generalized 03/19/2006 06/12/2014 documented as of this encounter (statuses as of 12/10/2022) [facility] History of Past illness Narrative* Problem Noted Date Diagnosed Date Resolved Date Shortness of breath 02/12/2016 06/29/19 17 Achilles tendinitis 10/04/2012 04/17/20 15 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 03/25/20 09 06/12/2014 Neoplasm of uncertain behavior of skin 01/23/2009 06/12/2014 Shortness of breath 09/01/2006 06/12/19 15 Abdominal pain, generalized 03/19/2006 06/12/2014 documented as of this encounter (statuses as of 12/11/2022) [facility] History of Past illness Narrative* Problem Noted Date Diagnosed Date Resolved Date Shortness of breath 02/12/2016 06/29/19 17 Achilles tendinitis 10/04/2012 04/17/20 15 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 03/25/20 09 06/12/2014 Neoplasm of uncertain behavior of skin 01/23/2009 06/12/2014 Shortness of breath 09/01/2006 06/12/19 15 Abdominal pain, generalized 03/19/2006 06/12/2014 documented as of this encounter (statuses as of 12/28/2022) [facility] History of Past illness Narrative* Problem Noted Date Diagnosed Date Resolved Date Shortness of breath 02/12/2016 06/29/19 17 Achilles tendinitis 10/04/2012 04/17/20 15 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 03/25/20 09 06/12/2014 Neoplasm of uncertain behavior of skin 01/23/2009 06/12/2014 Shortness of breath 09/01/2006 06/12/19 15 Abdominal pain, generalized 03/19/2006 06/12/2014 documented as of this encounter (statuses as of 01/21/2023) [facility] History of Past illness Narrative* Problem Noted Date Diagnosed Date Resolved Date Shortness of breath 02/12/2016 06/29/19 17 Achilles tendinitis 10/04/2012 04/17/20 15 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 03/25/20 09 06/12/2014 Neoplasm of uncertain behavior of skin 01/23/2009 06/12/2014 Shortness of breath 09/01/2006 06/12/19 15 Abdominal pain, generalized 03/19/2006 06/12/2014 documented as of this encounter (statuses as of 03/09/2023) [facility] History of Past illness Narrative* Problem Noted Date Diagnosed Date Resolved Date Shortness of breath 02/12/2016 06/29/19 17 Achilles tendinitis 10/04/2012 04/17/20 15 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 03/25/20 09 06/12/2014 Neoplasm of uncertain behavior of skin 01/23/2009 06/12/2014 Shortness of breath 09/01/2006 06/12/19 15 Abdominal pain, generalized 03/19/2006 06/12/2014 documented as of this encounter (statuses as of 04/02/2023) [facility] History of Past illness Narrative* Problem Noted Date Diagnosed Date Resolved Date Shortness of breath 02/12/2016 06/29/19 17 Achilles tendinitis 10/04/2012 04/17/20 15 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 03/25/20 09 06/12/2014 Neoplasm of uncertain behavior of skin 01/23/2009 06/12/2014 Shortness of breath 09/01/2006 06/12/19 15 Abdominal pain, generalized 03/19/2006 06/12/2014 documented as of this encounter (statuses as of 04/19/2023) [facility] History of Past illness Narrative* Problem Noted Date Diagnosed Date Resolved Date Shortness of breath 02/12/2016 06/29/19 17 Achilles tendinitis 10/04/2012 04/17/20 15 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 03/25/20 09 06/12/2014 Neoplasm of uncertain behavior of skin 01/23/2009 06/12/2014 Shortness of breath 09/01/2006 06/12/19 15 Abdominal pain, generalized 03/19/2006 06/12/2014 documented as of this encounter (statuses as of 05/03/2023) [facility] History of Past illness Narrative* Problem Noted Date Diagnosed Date Resolved Date Shortness of breath 02/12/2016 06/29/19 17 Achilles tendinitis 10/04/2012 04/17/20 15 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 03/25/20 09 06/12/2014 Neoplasm of uncertain behavior of skin 01/23/2009 06/12/2014 Shortness of breath 09/01/2006 06/12/19 15 Abdominal pain, generalized 03/19/2006 06/12/2014 documented as of this encounter (statuses as of 07/02/2023) [facility] note* Diagnosis Recurrent major depressive disorder, in full remission (HCC)- Primary documented in this encounter [facility] note* Diagnosis Essential hypertension, benign- Primary Encounter for hepatitis C screening test for low risk patient Benign non-nodular prostatic hyperplasia with lower urinary tract symptoms Recurrent major depressive disorder, in full remission (HCC) [facility] Diagnosis Recurrent major depressive disorder, in full remission (HCC)- Primary documented in this encounter [facility] note* Diagnosis Viral illness- Primary Unspecified viral infection, in conditions classified elsewhere and of unspecified site Acute [facility] Diagnosis At increased risk of exposure to COVID-19 virus- Primary [facility]* Diagnosis SOB (shortness of breath)- Primary Shortness of breath Bronchitis Bronchitis, not specified as acute or chronic Fatigue, unspecified type [facility]* Diagnosis SOB (shortness of breath)- Primary Shortness of breath 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 History of environmental allergies Other allergy, other than to medicinal agents History of COVID-19 [facility]* Diagnosis SOB (shortness of breath) Shortness of breath [facility] Diagnosis SOB (shortness of breath) Shortness of breath documented in this encounter [facility] note* Diagnosis Essential hypertension, benign- Primary Recurrent major depressive disorder, in full remission (HCC) Benign non-nodular prostatic hyperplasia with lower urinary tract symptoms SOB (shortness of breath) Shortness of breath Fatigue, unspecified type Thrombocyte disorder (HCC) Qualitative platelet defects documented in this encounter [facility] note* Diagnosis Cough variant asthma- Primary SOB (shortness of breath) Shortness of breath History of environmental allergies Other allergy, other than to medicinal agents History of COVID-19 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 [facility]* Diagnosis URI, acute- Primary Acute upper respiratory infections of unspecified site Rhinosinusitis Unspecified sinusitis (chronic) [facility]* Diagnosis Viral illness- Primary Unspecified viral infection, in conditions classified elsewhere and of unspecified site Acute cough [facility]* Diagnosis SOB (shortness of breath)- Primary Shortness of breath Acute cough Moderate persistent asthma without complication Unspecified asthma [facility]* Diagnosis Cough variant asthma- Primary [facility]* Diagnosis Rib pain on right side- Primary Chest pain, unspecified [facility] Diagnosis SOB (shortness of breath) Shortness of breath documented in this encounter [facility] note* Diagnosis Essential hypertension, benign- Primary Recurrent major depressive disorder, in full remission (HCC) Benign non-nodular prostatic hyperplasia with lower urinary tract symptoms Moderate persistent asthma without complication Unspecified asthma Musculoskeletal pain Mylagia and myositis, unspecified Thrombocyte disorder (HCC) Qualitative platelet defects Elevated glucose Other abnormal glucose [facility]* Diagnosis Cough variant asthma [facility] Diagnosis Cough variant asthma- Primary SOB (shortness of breath) Shortness of breath History of environmental allergies Other allergy, other than to medicinal agents [facility] Diagnosis Cough variant asthma- Primary Gastroesophageal reflux disease, unspecified whether esophagitis present History of environmental allergies Other allergy, other than to medicinal agents History of COVID-19 [facility]* Diagnosis Essential hypertension, benign- Primary Moderate persistent asthma without complication Unspecified asthma Benign non-nodular prostatic hyperplasia with lower urinary tract symptoms Recurrent major depressive disorder, in full remission (HCC) Anxiety Anxiety state, unspecified Low platelet count (HCC) documented in this encounter [facility] noteNo assessment information availableWGe[facility] Work Phone: Evaluation note* Diagnosis PERSON (dyspnea on exertion) Other dyspnea and respiratory abnormality Essential hypertension, benign [facility]* Diagnosis SOB (shortness of breath) Shortness of breath Cough variant asthma [facility]* Diagnosis SOB (shortness of breath) Shortness of breath Cough variant asthma documented in this encounter [facility] note* Diagnosis Hypertension, essential Unspecified essential hypertension documented in this encounter [facility] note* Diagnosis Onset Date Resolution Status SOB (shortness of breath) ac sonja Hypertension chronic [facility] Work [facility]* Diagnosis Cough variant asthma documented in this encounter [facility] note* Diagnosis Mild persistent asthma without complication- Primary Unspecified asthma Seasonal allergies Allergic rhinitis, cause unspecified documented in this encounter [facility] note* Diagnosis URI, acute- Primary Acute upper respiratory infections of unspecified site documented in this encounter [facility] note* Diagnosis Subacute cough- Primary Cough History of COVID-19 Mild persistent asthma without complication Unspecified asthma Seasonal allergies Allergic rhinitis, cause unspecified Gastroesophageal reflux disease, unspecified whether esophagitis present Tachycardia Tachycardia, unspecified documented in this encounter [facility] note* Diagnosis SOB (shortness of breath) Shortness of breath documented in this encounter [facility] note* Diagnosis Acute cough documented in this encounter [facility] note* Diagnosis Acute cough documented in this encounter [facility] note* Diagnosis Small airways disease- Primary Other diseases of lung, not elsewhere classified History of COVID-19 Diaphragm, eventration Congenital anomaly of diaphragm [facility] Author Megan Garcia [facility] Note Date/Time November 25, 2024 9:50 pm [facility] Medical Records Department [address] [place] [address] H&P Exam - Hospitalist 11/25/[id number] MR#: [id number] Acct: [id number] Name: VALENTINA CABRERA Rep #:[id number] : 1945 79 From: Megan Garcia MD PCP: Dr. Tre García MD Status:REG E R Location: ED HPI - General General Date of Admission: 11/25/24 Date of Service: 11/25/24 Chief Complaint: Transient blurry vision/vertigo/dizziness. HPI Narrative The patient is an 79 y/o M w/ PMHx: Obesity, Former tobacco use, CKD stage II per GFR trending, BPH with obstructive pathology, HTN, HLD, Anxiety and Depression, Chronic lumbar back pain, Asthma with allergic rhinitis, GERD who presents to the [facility] ED on 11/17/2024 with history of vision changes and onset of dizziness noted to be sitting down watching TV when all of a sudden his vision became blurry with onset of dizziness with sensation of room spinning noting that it is never occurred prior although he has had vertigo in the past but is very different from previously with no recent URI type illnesses lasting approximate 1.5 hours prompting eventual ED evaluation. Last known well per history was 18:30 pm on day of presentation of note. In the ED upon evaluation initially pretty physician NIH stroke scale 0. In the ED hissymptoms were noted to continue improve as he was felt not a tenecteplase candidate. Upon ED arrival as noted the symptoms resolved however patient noteshe still feels fatigued since. Patient did report a single episode remotely of a migraine but has not had any since. He denies any headache on day of presentation. Workup in the ED included T97.9, heart rate 85, BP 133/74, respiratory rate 13, 93% on room air with most recent repeat vitals heart rate 91, BP 115/92, respiratory rate 25, 95% room air, CBC with WBC 7.8, hemoglobin 14.2, platelet 124 without marked shift, unremarkable coags, BMP not marked appearing aside BUN/creatinine 21/1.15, GFR 64, troponin 39, CT brain with no acute intracranial findings, CTA Head and Neck with no large vessel occlusion, aneurysm or AVM, CXR with no acute cardiopulmonary findings, EKG sinus rhythm with no acute evidence of ischemia. Telestroke was contacted and evaluated patient with NIH stroke scale assessment per their service 0. In the ED patientministered 1 L normal saline and full-strength aspirin therapy 325 mg p.o. x 1. [facility] Former tobacco use Obesity CKD (chronic kidney disease), stage II Allergic rhinitis Anxiety and depression Constipation Chronic low back pain BPH (benign prostatic hyperplasia) Hyperlipidemia Asthma COVID-19 Hypertension GERD (gastroesophageal reflux disease) Home Medications ?Medication ?Instructions ?Recorded ?Last Taken ?Type polyethylene glycol 3350 17 gram 17 g PO DAILY PRN Con stipation 04/19/13 04/19/13 07:00 History oral powder packet lisinopril 5 mg tablet 5 mg PO DAILY 08/28/20 Unkno wn History tamsulosin 0.4 mg capsule 0.4 mg PO QHS 06/16/21 Unkno wn History montelukast 10 mg tablet 10 mg PO DAILY 05/06/23 Unkn own History nortriptyline 50 mg capsule 50 mg PO BID 06/02/23 Unkn own History omeprazole 10 mg capsule,delayed 40 mg PO DAILY Unknown History release azithromycin 250 mg tablet 250 mg PO DAILY 11/25/24 Un known History budesonide 160 mcg-glycopyr 9 2 inh inhalation BID Unknown History mcg-formot 4.8 mcg/actuation HFA inhaler ([employer]tri [employer]) Allergy/AdvReac Type Severity Reaction Status Date / Time No Known Allergies Allergy Verified 11/25/24 20:06 Family History Mother Depression CVA (cerebral vascular accident) Anxiety Hypertension Father Pancreatic cancer Surgical History Hx of cataract extraction Social History (Updated 11/25/24 @ 21:[address] Megan Garcia MD) household members: spouse Smoking Status: Former smoker how long ago did patient quit smoking: Quit 1974, smoked cigars only. alcohol intake: never substance use type: does not use ROS ROS Narrative Admission Review of Systems: CONSTITUTIONAL: No weight loss, fever, chills, + weakness or fatigue. HEENT: + Dizziness with vertiginous symptoms. Eyes: No visual loss, double vision or yellow sclerae. + Transient blurry vision. Ears, Nose, Throat: No hearing loss, sneezing, congestion, runny nose or sore throat. SKIN: No rash or itching, lesions, wounds. CARDIOVASCULAR: No chest pain, chest pressure or chest discomfort, palpitations,edema, orthopnea, syncopal events. RESPIRATORY: No shortness of breath, cough or sputum, wheezing, hemoptysis. GASTROINTESTINAL: + anorexia, nausea. No vomiting or diarrhea, abdominal pain, melena, BRBPR. GENITOURINARY: No dysuria, frequency, urgency or retention. NEUROLOGICAL: + Dizziness with vertiginous symptoms, transient bilateral blurry vision, transient brain fog sensation. No headache, syncope, paralysis, ataxia,numbness or tingling in the extremities, focal weakness, change in bowel or bladder control, seizure. MUSCULOSKELETAL: + muscle, back pain, joint pain or stiffness. HEMATOLOGIC: No anemia. + Easy bleeding/bruising. LYMPHATICS: No enlarged nodes. No history of splenectomy. PSYCHIATRIC: + History of anxiety depression. ENDOCRINOLOGIC: No reports of sweating, cold or heat intolerance. No polyuria orpolydipsia. ALLERGIES: + History of asthma, allergic rhinitis. Vital Signs Vital Signs Vital Signs: 11/25/24 20:06 11/25/24 20:13 11/25/24 20:18 Temperature 97.9 F Temperature Source Oral Pulse Rate 85 86 Respiratory Rate 13 16 Blood Pressure 133/74 H 133/74 H Blood Pressure Mean 93 93 Pulse Ox 93 93 Oxygen Delivery Method Room Air Room Air Room Air 11/25/24 20:28 11/25/24 20:43 11/25/24 21:13 Temperature Temperature Source Pulse Rate 91 90 88 Respiratory Rate 25 H 15 13 Blood Pressure 115/92 H 133/80 H 141/74 H Blood Pressure Mean 99 97 96 Pulse Ox 95 92 97 Oxygen Delivery Method Room Air Room Air Room Air Weight Weight: 201 lb 11.567 oz Body Mass Index (BMI) 30.7 Physical Exam Narrative Physical Examination: General: Awake, alert, oriented x 3 and cooperative, seated upright in the ED bed in no apparent distress, notes continued complete resolution of previous neurological symptoms. Skin: Normal color, normal turgor, no icterus, no cyanosis except for very stageecchymoses, abrasions especially to the extremities, more distal and upper. HEENT: AT/NC, EOMI, PERRLA, MMM, no carotid bruits or JVD noted. Lungs: CTA bilaterally, moderate effort, mild decrease BL bases, no rales, ronchi or wheezing. Heart: Regular rate and rhythm; no gallop, rub audible. Abdomen: Soft, NTTP, ND, normal BS, no appreciated HSM. Extremities: No cyanosis, clubbing, or edema. Neurological: Patient awake, alert, oriented as noted, cognitive function intact; pupils equally reactive to light and accommodation, cranial nerves grossly normal, moving all 4 extremities, no focal deficits, strength preserved,finger-nose and [id number] appropriate, sensation intact, negative Babinski, feels of vision intact, no elicited vertiginous symptoms. Psychiatric: Affect appears normal, no acute evidence of depressive or anxiety feelings. Results Lab / Micro Data 11/25/24 19:55 11/25/24 19:55 Labs: Laboratory Results - last 24 hr 11/25/24 19:55: WBC 7.8, RBC 4.49 L, Hgb 14.2, Hct 40.9, MCV 91.1, MCH 31.6, MCHC 34.7, RDW Std Deviation 45.5 H, RDW Coeff of Chucho 13.5, Plt Count 124 L, MPV9.5, Immature Gran % (Auto) 0.400, Neut % (Auto) 41.5 L, Lymph % (Auto) 52.1 H, Perkins % (Auto) 5.2, Eos % (Auto) 0.4, Baso % (Auto) 0.4, Absolute Neuts (auto) 3.2, Absolute Lymphs (auto) 4.07, Nucleated RBC % 0, PT 13.7, INR 1.0, APTT 25.8, Sodium 140, Potassium 4.4, Chloride 106, Carbon Dioxide 21.3, Anion Gap 13, BUN 21 H, Creatinine 1.15, Estim Creat Clear Calc 56.26, Est GFR (MDRD) Non-Af 64, BUN/Creatinine Ratio 18.3, Glucose 99, Calcium 9.4, Troponin T High Sens 39 H 11/25/24 20:11: POC Glucose 120 H Imaging Radiology Impression Brain CT 11/25/24 20:13 IMPRESSION: No acute intracranial finding. Dr. Fam discussed these findings via telephone with Dr. Clifford at 8:31 pm on 11/25/24. Reading Location: [facility] Chest X-Ray 11/25/24 20:13 IMPRESSION: No significant change since last exam. Reading Location: [facility] Head/Neck CTA 11/25/24 20:14 IMPRESSION: No large vessel occlusion, aneurysm or AVM. Reading Location: [facility] Assessment & Plan Assessment/Plan (1) TIA (transient ischemic attack): PLAN: Plan The patient is an 79 y/o M w/ PMHx: Obesity, Former tobacco use, CKD stage II per GFR trending, BPH with obstructive pathology, HTN, HLD, Anxiety and Depression, Chronic lumbar back pain, Asthma with allergic rhinitis, GERD who presents to the [facility] ED on 11/17/2024 with history of vision changes and onset of dizziness noted to be sitting down watching TV when all of a sudden his vision became blurry with onset of dizziness with sensation of room spinning noting that it is never occurred prior although he has had vertigo in the past but is very different from previously with no recent URI type illnesses lasting approximate 1.5 hours prompting eventual ED evaluation. #1. Vision changes/bilateral blurry vision with vertiginous symptoms, resolved concerning for possible posterior CVA/TIA, remote history of migraine x 1 only thus lower suspicion for complex migraine as etiology with mildly elevated cardiac troponin of unclear significance/indeterminate: Will admit to PCU, will obtain MRI Brain, ECHO, PT/OT/Speech/Nutrition evaluation per protocol. Will allow permissive HTN, maintain on asa, add moderate dose statin w/ AM FLP, fall precautions. Mag, TSH, HgbA1c requested. Maintain on fall and aspiration precautions. Will continue neurology consultation initiated in ED. Will have as needed meclizine for vertiginous symptoms. Will continue to cycle cardiac enzymes to be cautious but lower suspicion for cardiac event. #2. Thrombocytopenia, appears new chronicity although has occasionally been noted on previous remote labs: Admission CBC with platelets 124, cautiously adding aspirin, more recent labs have been normal range, will trend CBC. #3. Hypertension: Will maintain permissive hypertension given presentation as noted with urine agents per stroke protocol, add back regimen once clinically appropriate. #4. Hyperlipidemia: Not on statin therapy, given presentation as noted #1 adding moderate dose regimen, FLP in AM as noted #1. #5. Chronic Kidney Disease Stage II per GFR trending: Admission BUN/Cr 21/1.15,GFR 64, baseline renal function primarily 0.9-1.1, repeat BMP in AM. #6. Chronic asthma with allergic rhinitis: Will temporally hold home inhaler inthe interim maintain on ATC budesonide therapy,. Albuterol, continue patient home montelukast regimen. #7. Former tobacco use: Encourage continued tobacco cessation. #8. Obesity: Weight loss and lifestyle changes encouraged. #9. Anxiety and depression: Will continue patient home nortriptyline regimen, encourage continued outpatient follow-up and evaluation as previously arranged. #10. Chronic lumbar back pain: Maintain on fall precautions, encourage offloading, therapies consulted as noted above. #11. BPH with obstructive pathology: Will continue patient home Flomax regimen,monitor for retention. #12. GERD: Will continue patient on PPI. #13. DVT prophylaxis: Lovenox cautiously given #2 and addition of ASA given #1 as noted. #14. CODE status: Patient MARCO ANTONIO is his who is present and living will is currently in place. Discussed CODE status at length including difference betweenFULL code, DNR-CCA and DNR-CC status. Following discussions about the differences in these status, requested Full Code status. Charges/Coding Visit Charges Inpatient E&M: 76145 Init Hosp L3 11/25/240 <Electronically signed by Megan Garcia MD> Cosigner Signature (if applicable): CC: Dr. Megan Garcia MD; Dr. Tre García MD~ Signed [facility] Work Phone: Reason for referral (narrative)* Outpatient Procedure (Routine) - Authorized Specialty Diagnoses / Procedures Referred By Anne castanon Referred To Contact [facility] Diagnoses SOB (shortness of breath) Procedures LUNG VOLUMES Genie Bustamante MD [address] [place] [address] Respiratory [place] [address] [place] [id number] Referral ID Status Reason Start Date Expiration Date Visits Requested Visits Authorized [id number] Authorized Auto-Generat ed Referral 02/27/2022 03/29/2023 1 1 * Outpatient Procedure (Routine) - Authorized Specialty Diagnoses / Procedures Referred By Contac t Referred To Contact [facility] Diagnoses SOB (shortness of breath) Procedures NITRIC OXIDE, EXHALED NITRIC OXIDE GAS DETERMINATION Genie Bustamante MD [address] [place] [address] [address] Referral ID Status Reason Start Date Expiration Date Visits Requested Visits Authorized [id number] Authorized Auto-Generat ed Referral 02/27/2022 03/29/2023 1 1 * Outpatient Procedure (Routine) - Authorized Specialty Diagnoses / Procedures [facility] Referred To Contact [facility] Diagnoses SOB (shortness of breath) Procedures SPIROMETRY WITH DILATOR IF OBSTRUCTED BRNCDILAT RSPSE SPMTRY PRE&POST-BRNCDILAT ADMGenie Moss MD [address] [place] [address] [address] Referral ID Status Reason Start Date Expiration Date Visits Requested Visits Authorized [id number] Authorized Auto-Generat ed Referral 02/27/2022 03/29/2023 1 1 [facility] for referral (narrative)* Diagnostic Procedure Only (Urgent) - Closed Specialty Diagnoses / Procedures Referred By [facility] Referred To Contact XR IMAGING Diagnoses Rib pain on right side Procedures XR RIBS/CHEST 3V AP RIB/OBLS/CXR RIGHT RADEX RIBS UNI W/POSTEROANT CH MINIMUM 3 VIEWS Mich Mathis APRN.CNP [address] [place] [address] Xr Imaging Referral ID Status Reason Start Date Expiration Date V isits Requested Visits Authorized [id number] Closed Auto-Generate d Referral 08/19/2022 09/18/2023 1 1 [facility] for referral (narrative)* Outpatient Procedure (Routine) - Closed Specialty Diagnoses / Procedures Referred By [facility] Referred To [facility] Diagnoses Cough variant asthma Procedures NITRIC OXIDE, EXHALED NITRIC OXIDE GAS DETERMINATION Becky Fierro PA-C [address] [place] [address] Respiratory [place] [address] [place] [address] Referral ID Status Reason Start Date Expiration Date V isits Requested Visits Authorized [id number] Closed Auto-Generate d Referral 12/10/2022 01/09/2024 1 1 * Outpatient Procedure (Routine) - Authorized Specialty Diagnoses / Procedures Referred By [facility] Referred To Contact [facility] Diagnoses SOB (shortness of breath) Procedures ECHO ECHO TTHRC R-T 2D W/WOM-MODE COMPL SPEC&COLR D Becky Fierro PA-C [address] [place] [address] [facility] Vascular [place] [address] [place] [address] Referral ID Status Reason Start Date Expiration Date Visits Requested Visits Authorized [id number] Authorized Auto-Generat ed Referral 12/10/2022 12/10/2023 1 1 [facility] for referral (narrative)* Diagnostic Procedure Only (Routine) - Closed Specialty Diagnoses / Procedures Referred By [facility] Referred To Contact MOLECULAR & FUNCTIONAL IMAGING Diagnoses PERSON (dyspnea on exertion) Essential hypertension, benign Procedures NM CARDIAC PERF STRESS/EXERCISE MYOCARDIAL SPECT MULTIPLE STUDIES Jd Solis MD [address] [place] [address] Molecular & Functional Imaging [address] [id number] Referral ID Status Reason Start Date Expiration Date V isits Requested Visits Authorized [id number] Closed Auto-Generate d Referral 01/04/2023 02/03/2024 1 1 [facility]No reason for referral information availableWGeorgetown [facility] Work Phone: Reason for visit Narrative* Diagnostic Procedure Only (Urgent) - Closed Specialty Diagnoses / Procedures Referred By Contac t Referred To Contact XR IMAGING Diagnoses Rib pain on right side Procedures XR RIBS/CHEST 3V AP RIB/OBLS/CXR RIGHT RADEX RIBS UNI W/POSTEROANT CH MINIMUM 3 VIEWS Mich Mathis APRN.POWER BRAKE OPERATOR [address] [facility] [place] [address] [place] [address] Referral ID Status Reason Start Date Expiration Date V isits Requested Visits Authorized [id number] Closed Auto-Generate d Referral 08/19/2022 09/18/2023 1 1 [facility] Summary Purpose Family History No Family History Records Found Relationship Condition Age at Onset Recorded Date/T mi mother Depression Unknown Cerebrovascular accident (CVA) Unknown Anxiety Unknown Hypertension Unknown father Malignant neoplasm of pancreas Unknown Advance Directives No Advanced Directives Records FoundDocuments on File Type Date Recorded Patient Mastic Man Expl anation Advance Directive(s) 06/18/2020 7:30 AM Advance Directive(s) 06/18/2020 7:26 AM Advance Directive(s) 06/12/2020 9:19 AM Advance Directive(s) 02/07/2015 9:07 AM Documents on File Type Date Recorded Patient Mastic Man Expl anation Advance Directive(s) 06/18/2020 7:26 AM Advance Directive(s) 02/07/2015 9:07 AM Documents on File Type Date Recorded Patient Mastic Man Expl anation Advance Directive(s) 06/18/2020 7:26 AM Advance Directive(s) 02/07/2015 9:07 AM Documents on File Type Date Recorded Patient Mastic Man Expl anation Advance Directive(s) 10/20/2022 8:34 AM Advance Directive(s) 06/18/2020 7:26 AM Documents on File Type Date Recorded Patient Mastic Man Expl anation Advance Directive(s) 10/20/2022 8:34 AM Advance Directive(s) 06/18/2020 7:26 AM Advance Directive Response Recorded Date/ Time Advance Directives Yes March 11:36pm Living Will No June 14 1:11pm Power of Tax Preparer No June 14, 2021 1:11pm Advance Directive Response Recorded Date/ Time Advance Directives Yes March 10:36pm Living Will No June 14 12:11pm Power of Tax Preparer No June 14, 2021 12:11pm Advance Directive Response Recorded Date/ Time Advance Directives Yes March 11:36pm Living Will No August 15, 2023 11:59am Power of Tax Preparer No August 14 11:59am Advance Directive Response Recorded Date/ Time Advance Directives on File No Decem 2023 3:04pm Living Will Yes May 29 3:36pm Do you have a Healthcare Power of Tax Preparer? Yes May 29, 2024 3:36pm Advance Directives Yes March 11:36pm Advance Directive Response Recorded Date/ Time Advance Directives Yes March 11:36pm Advance Directive Response Recorded Date/ Time Do you have a Healthcare Power of Tax Preparer? Yes November 25, 2024 8:20pm Advance Directives Yes March 11:36pm Advance Directive Response Recorded Date/ Time Do you have a Healthcare Power of Tax Preparer? Yes November 25, 2024 10:51pm Advance Directives Yes March 11:36pm Health Concerns [...] 2024 10:00am chronic bronchitis, unspecified asthma [facility] 2024 10:00am chronic bronchitis, unspecified asthma [facility] 2024 10:00am Reason for Visit Admit Date [...] 2024 10:00am chronic bronchitis, unspecified asthma [facility] 2024 10:00am chronic bronchitis, unspecified asthma [facility] 2024 10:00am Chief Complaint Admit Date chronic bronchitis May 29, 2024 1:44pm chronic bronchitis, unspecified asthma J anuary 2024 10:00am chronic bronchitis, unspecified asthma [facility] 2024 10:00am chronic bronchitis, unspecified asthma [facility] 2024 10:00am chronic bronchitis, unspecified asthma A 2024 10:00am Chief Complaint Admit Date chronic bronchitis, unspecified asthma [facility] 2024 10:00am chronic bronchitis, unspecified asthma [facility] 2024 10:00am chronic bronchitis, unspecified asthma A 2024 10:00am chronic bronchitis, unspecified asthma [facility] 2024 10:00am Chief Complaint Admit Date chronic bronchitis, unspecified asthma [facility] 2024 10:00am chronic bronchitis, unspecified asthma [facility] 2024 10:00am chronic bronchitis, unspecified asthma A 2024 10:00am chronic bronchitis, unspecified asthma [facility] 2024 10:00am TIA/CVA November 25, 2024 9:27 pm dizziness November 25, 2024 9:33 pm Reason for Visit Admit Date Change in vision November 25, 2024 9:27 pm Dizziness November 25, 2024 9:27 pm Hyperlipidemia November 25, 2024 9:27 pm TIA (transient ischemic attack) October 9:27pm Hypertension November 25, 2024 9:27 pm Chief Complaint Admit Date chronic bronchitis, unspecified asthma [facility] 2024 10:00am chronic bronchitis, unspecified asthma A 2024 10:00am chronic bronchitis, unspecified asthma M ay 2024 10:00am TIA/CVA November 25, 2024 9:27 pm dizziness November 25, 2024 9:33 pm TIA/CVA November 26, 2024 7:23 am TIA/CVA November 27, 2024 10:5 7am Reason for Visit Admit Date Change in vision November 25, 2024 9:27 pm Dizziness November 25, 2024 9:27 pm Elevated troponin November 25, 2024 9:27 pm Hyperlipidemia November 25, 2024 9:27 pm TIA (transient ischemic attack) October 9:27pm Hypertension November 25, 2024 9:27 pm Reason for Visit Admit Date Change in vision November 25, 2024 9:27 pm Dizziness November 25, 2024 9:27 pm Elevated troponin November 25, 2024 9:27 pm Hyperlipidemia November 25, 2024 9:27 pm Hypertension November 25, 2024 9:27 pm TIA (transient ischemic attack) October 9:27pm Chief Complaint Admit Date chronic bronchitis, unspecified asthma A 2024 10:00am chronic bronchitis, unspecified asthma M ay 2024 10:00am TIA/CVA November 25, 2024 9:27 pm dizziness November 25, 2024 9:33 pm TIA/CVA November 26, 2024 7:23 am TIA/CVA November 27, 2024 10:5 7am Amb Documentation December 14, 2024 4:39 pm THROMBOCYTOPENIA January 02, 2025 2:1 8pm INT LAB ORDERS January 02, 2025 4:1 0pm Reason for Visit Admit Date Change in vision November 25, 2024 9:27 pm Dizziness November 25, 2024 9:27 pm Elevated troponin November 25, 2024 9:27 pm Hyperlipidemia November 25, 2024 9:27 pm Hypertension November 25, 2024 9:27 pm TIA (transient ischemic attack) October 9:27pm Thrombocytopenia January 02, 2025 2:1 8pm Chief Complaint Admit Date chronic bronchitis, unspecified asthma M ay 2024 10:00am TIA/CVA November 25, 2024 9:27 pm dizziness November 25, 2024 9:33 pm TIA/CVA November 26, 2024 7:23 am TIA/CVA November 27, 2024 10:5 7am Amb Documentation December 14, 2024 4:39 pm THROMBOCYTOPENIA January 02, 2025 2:1 8pm INT LAB ORDERS January 02, 2025 4:1 0pm CLOSED HEAD INJURY January 24, 2025 9: 39am WOUND January 25, 2025 9: 55am WOUND January 25, 2025 12 :00pm Reason for Visit Admit Date Change in vision November 25, 2024 9:27 pm Dizziness November 25, 2024 9:27 pm Elevated troponin November 25, 2024 9:27 pm Hyperlipidemia November 25, 2024 9:27 pm Hypertension November 25, 2024 9:27 pm TIA (transient ischemic attack) October 9:27pm Thrombocytopenia January 02, 2025 2:1 8pm History of fall January 25, 2025 9: 55am Laceration of knee, left January 25 9:55am Laceration of left forearm January 25, 2025 9:55am Chief Complaint Admit Date chronic bronchitis, unspecified asthma ay 2024 10:00am TIA/CVA November 25, 2024 9:27 pm dizziness November 25, 2024 9:33 pm TIA/CVA November 26, 2024 7:23 am TIA/CVA November 27, 2024 10:5 7am Amb Documentation December 14, 2024 4:39 pm THROMBOCYTOPENIA January 02, 2025 2:1 8pm INT LAB ORDERS January 02, 2025 4:1 0pm CLOSED HEAD INJURY January 24, 2025 9: 39am WOUND January 25, 2025 9: 55am WOUND January 25, 2025 12 :00pm [facility] January 31, 2025 3:19pm Reason for Visit Admit Date Change in vision November 25, 2024 9:27 pm Dizziness November 25, 2024 9:27 pm Elevated troponin November 25, 2024 9:27 pm Hyperlipidemia November 25, 2024 9:27 pm Hypertension November 25, 2024 9:27 pm TIA (transient ischemic attack) October 9:27pm Thrombocytopenia January 02, 2025 2:1 8pm History of fall January 25, 2025 9: 55am Laceration of knee, left January 25 9:55am Laceration of left forearm January 25, 2025 9:55am Thrombocytopenia January 31, 2025 3:19pm Additional Source Comments (unrecognized sect ion and content) No Status Records FoundNo Status Records FoundNo Status Records Found INFORMATION SOURCE (unrecogn ized section and content) DATE CREATED AUTHOR 09/07/2020 [facility] DATE CREATED AUTHOR AUTHOR'S ORGANIZ ATION 05/28/2024 [facility] DATE CREATED AUTHOR AUTHOR'S ORGANIZ ATION 02/02/2025 [facility] Source Comments (unrecognize d section and content) In the event this informatio n is protected by the Federal Confidentiality of Alcohol and Drug Abuse Patient Records regulations: The Federal rules restrict any use of the information to criminally investigate or prosecute any alcohol or drug abuse patient.[facility] the event this information is protected by [...] any alcohol or drug abuse patient.[facility] HospitalIn the event this information is protected by the Federal Confidentiality of Alcohol and Drug Abuse Patient Records regulations: The Federal rules restrict any use of the information to criminally investigate or prosecute any alcohol or drug abuse patient.[facility] HospitalIn the event this information is protected by the Federal Confidentiality of Alcohol and Drug Abuse Patient Records regulations: The Federal rules restrict any use of the information to criminally investigate or prosecute any alcohol or drug abuse patient.[facility] HospitalIn the event this information is protected by the Federal Confidentiality of Alcohol and Drug Abuse Patient Records regulations: The Federal rules restrict any use of the information to criminally investigate or prosecute any alcohol or drug abuse patient.[facility] HospitalIn the event this information is protected by the Federal Confidentiality of Alcohol and Drug Abuse Patient Records regulations: The Federal rules restrict any use of the information to criminally investigate or prosecute any alcohol or drug abuse patient.[facility] HospitalIn the event this information is protected by the Federal Confidentiality of Alcohol and Drug Abuse Patient Records regulations: The Federal rules restrict any use of the information to criminally investigate or prosecute any alcohol or drug abuse patient.[facility] HospitalIn the event this information is protected by the Federal Confidentiality of Alcohol and Drug Abuse Patient Records regulations: The Federal rules restrict any use of the information to criminally investigate or prosecute any alcohol or drug abuse patient.[facility] HospitalIn the event this information is protected by the Federal Confidentiality of Alcohol and Drug Abuse Patient Records regulations: The Federal rules restrict any use of the information to criminally investigate or prosecute any alcohol or drug abuse patient.[facility] HospitalIn the event this information is protected by the Federal Confidentiality of Alcohol and Drug Abuse Patient Records regulations: The Federal rules restrict any use of the information to criminally investigate or prosecute any alcohol or drug abuse patient.[facility] HospitalIn the event this information is protected by the Federal Confidentiality of Alcohol and Drug Abuse Patient Records regulations: The Federal rules restrict any use of the information to criminally investigate or prosecute any alcohol or drug abuse patient.[facility] HospitalIn the event this information is protected by the Federal Confidentiality of Alcohol and Drug Abuse Patient Records regulations: The Federal rules restrict any use of the information to criminally investigate or prosecute any alcohol or drug abuse patient.[facility] HospitalIn the event this information is protected by the Federal Confidentiality of Alcohol and Drug Abuse Patient Records regulations: The Federal rules restrict any use of the information to criminally investigate or prosecute any alcohol or drug abuse patient.[facility] HospitalIn the event this information is protected by the Federal Confidentiality of Alcohol and Drug Abuse Patient Records regulations: The Federal rules restrict any use of the information to criminally investigate or prosecute any alcohol or drug abuse patient.[facility] HospitalIn the event this information is protected by the Federal Confidentiality of Alcohol and Drug Abuse Patient Records regulations: The Federal rules restrict any use of the information to criminally investigate or prosecute any alcohol or drug abuse patient.[facility] HospitalIn the event this information is protected by the Federal Confidentiality of Alcohol and Drug Abuse Patient Records regulations: The Federal rules restrict any use of the information to criminally investigate or prosecute any alcohol or drug abuse patient.[facility] HospitalIn the event this information is protected by the Federal Confidentiality of Alcohol and Drug Abuse Patient Records regulations: The Federal rules restrict any use of the information to criminally investigate or prosecute any alcohol or drug abuse patient.[facility] HospitalIn the event this information is protected by the Federal Confidentiality of Alcohol and Drug Abuse Patient Records regulations: The Federal rules restrict any use of the information to criminally investigate or prosecute any alcohol or drug abuse patient.[facility] HospitalIn the event this information is protected by the Federal Confidentiality of Alcohol and Drug Abuse Patient Records regulations: The Federal rules restrict any use of the information to criminally investigate or prosecute any alcohol or drug abuse patient.[facility] HospitalIn the event this information is protected by the Federal Confidentiality of Alcohol and Drug Abuse Patient Records regulations: The Federal rules restrict any use of the information to criminally investigate or prosecute any alcohol or drug abuse patient.[facility] HospitalIn the event this information is protected by the Federal Confidentiality of Alcohol and Drug Abuse Patient Records regulations: The Federal rules restrict any use of the information to criminally investigate or prosecute any alcohol or drug abuse patient.[facility] HospitalIn the event this information is protected by the Federal Confidentiality of Alcohol and Drug Abuse Patient Records regulations: The Federal rules restrict any use of the information to criminally investigate or prosecute any alcohol or drug abuse patient.[facility] HospitalIn the event this information is protected by the Federal Confidentiality of Alcohol and Drug Abuse Patient Records regulations: The Federal rules restrict any use of the information to criminally investigate or prosecute any alcohol or drug abuse patient.[facility] HospitalIn the event this information is protected by the Federal Confidentiality of Alcohol and Drug Abuse Patient Records regulations: The Federal rules restrict any use of the information to criminally investigate or prosecute any alcohol or drug abuse patient.[facility] HospitalIn the event this information is protected by the Federal Confidentiality of Alcohol and Drug Abuse Patient Records regulations: The Federal rules restrict any use of the information to criminally investigate or prosecute any alcohol or drug abuse patient.[facility] HospitalIn the event this information is protected by the Federal Confidentiality of Alcohol and Drug Abuse Patient Records regulations: The Federal rules restrict any use of the information to criminally investigate or prosecute any alcohol or drug abuse patient.[facility] HospitalIn the event this information is protected by the Federal Confidentiality of Alcohol and Drug Abuse Patient Records regulations: The Federal rules restrict any use of the information to criminally investigate or prosecute any alcohol or drug abuse patient.[facility] HospitalIn the event this information is protected by the Federal Confidentiality of Alcohol and Drug Abuse Patient Records regulations: The Federal rules restrict any use of the information to criminally investigate or prosecute any alcohol or drug abuse patient.[facility] HospitalIn the event this information is protected by the Federal Confidentiality of Alcohol and Drug Abuse Patient Records regulations: The Federal rules restrict any use of the information to criminally investigate or prosecute any alcohol or drug abuse patient.[facility] HospitalIn the event this information is protected by the Federal Confidentiality of Alcohol and Drug Abuse Patient Records regulations: The Federal rules restrict any use of the information to criminally investigate or prosecute any alcohol or drug abuse patient.[facility] HospitalIn the event this information is protected by the Federal Confidentiality of Alcohol and Drug Abuse Patient Records regulations: The Federal rules restrict any use of the information to criminally investigate or prosecute any alcohol or drug abuse patient.[facility] HospitalIn the event this information is protected by the Federal Confidentiality of Alcohol and Drug Abuse Patient Records regulations: The Federal rules restrict any use of the information to criminally investigate or prosecute any alcohol or drug abuse patient.[facility] HospitalIn the event this information is protected by the Federal Confidentiality of Alcohol and Drug Abuse Patient Records regulations: The Federal rules restrict any use of the information to criminally investigate or prosecute any alcohol or drug abuse patient.[facility] HospitalIn the event this information is protected by the Federal Confidentiality of Alcohol and Drug Abuse Patient Records regulations: The Federal rules restrict any use of the information to criminally investigate or prosecute any alcohol or drug abuse patient.[facility] HospitalIn the event this information is protected by the Federal Confidentiality of Alcohol and Drug Abuse Patient Records regulations: The Federal rules restrict any use of the information to criminally investigate or prosecute any alcohol or drug abuse patient.[facility] HospitalIn the event this information is protected by the Federal Confidentiality of Alcohol and Drug Abuse Patient Records regulations: The Federal rules restrict any use of the information to criminally investigate or prosecute any alcohol or drug abuse patient.[facility] HospitalIn the event this information is protected by the Federal Confidentiality of Alcohol and Drug Abuse Patient Records regulations: The Federal rules restrict any use of the information to criminally investigate or prosecute any alcohol or drug abuse patient.[facility] HospitalIn the event this information is protected by the Federal Confidentiality of Alcohol and Drug Abuse Patient Records regulations: The Federal rules restrict any use of the information to criminally investigate or prosecute any alcohol or drug abuse patient.[facility] HospitalIn the event this information is protected by the Federal Confidentiality of Alcohol and Drug Abuse Patient Records regulations: The Federal rules restrict any use of the information to criminally investigate or prosecute any alcohol or drug abuse patient.[facility] HospitalIn the event this information is protected by the Federal Confidentiality of Alcohol and Drug Abuse Patient Records regulations: The Federal rules restrict any use of the information to criminally investigate or prosecute any alcohol or drug abuse patient.[facility] HospitalIn the event this information is protected by the Federal Confidentiality of Alcohol and Drug Abuse Patient Records regulations: The Federal rules restrict any use of the information to criminally investigate or prosecute any alcohol or drug abuse patient.[facility] HospitalIn the event this information is protected by the Federal Confidentiality of Alcohol and Drug Abuse Patient Records regulations: The Federal rules restrict any use of the information to criminally investigate or prosecute any alcohol or drug abuse patient.[facility] HospitalIn the event this information is protected by the Federal Confidentiality of Alcohol and Drug Abuse Patient Records regulations: The Federal rules restrict any use of the information to criminally investigate or prosecute any alcohol or drug abuse patient.[facility] HospitalIn the event this information is protected by the Federal Confidentiality of Alcohol and Drug Abuse Patient Records regulations: The Federal rules restrict any use of the information to criminally investigate or prosecute any alcohol or drug abuse patient.[facility] HospitalIn the event this information is protected by the Federal Confidentiality of Alcohol and Drug Abuse Patient Records regulations: The Federal rules restrict any use of the information to criminally investigate or prosecute any alcohol or drug abuse patient.[facility] HospitalIn the event this information is protected by the Federal Confidentiality of Alcohol and Drug Abuse Patient Records regulations: The Federal rules restrict any use of the information to criminally investigate or prosecute any alcohol or drug abuse patient.[facility] HospitalIn the event this information is protected by the Federal Confidentiality of Alcohol and Drug Abuse Patient Records regulations: The Federal rules restrict any use of the information to criminally investigate or prosecute any alcohol or drug abuse patient.[facility] HospitalIn the event this information is protected by the Federal Confidentiality of Alcohol and Drug Abuse Patient Records regulations: The Federal rules restrict any use of the information to criminally investigate or prosecute any alcohol or drug abuse patient.[facility] HospitalIn the event this information is protected by the Federal Confidentiality of Alcohol and Drug Abuse Patient Records regulations: The Federal rules restrict any use of the information to criminally investigate or prosecute any alcohol or drug abuse patient.[facility] HospitalIn the event this information is protected by the Federal Confidentiality of Alcohol and Drug Abuse Patient Records regulations: The Federal rules restrict any use of the information to criminally investigate or prosecute any alcohol or drug abuse patient.[facility] HospitalIn the event this information is protected by [...] any alcohol or drug abuse patient.[facility] Reason for Visit (unrecogniz ed section and content) Reason Comments Follow Up Specialty Diagnoses / Procedures Referred By Anne t Referred To Contact Psychiatry / ADULT PSYCHIATRY Diagnoses FOLLOW UP Procedures EST PSYC ADULT Betty Barraza, CORN DETASSELER.POWER BRAKE OPERATOR [address] [place] [address] Berkley Roque, CORN DETASSELER.POWER BRAKE OPERATOR [address] [place] [address] Referral ID Status Reason Start Date Expiration Date V isits Requested Visits Authorized [id number] Pending Review 08/27/2021 11/25/2021 1 1 Reason Comments 6 Month Exam Referral ID Status Reason Start Date Expiration Date Visits Re quested Visits Authorized [id number] Closed 08/27/2021 11/25/2021 1 1 Reason Comments Acute Visit SOB,fatique Reason Comments Flu Like Symptoms Chest congestion, SO B x 1 week, is covid positive Reason Comments Results Reason Comments Follow Up congestion and urgen t care Reason Comments Results Labs Reason Comments New Patient Dyspnea Reason Comments Spirometry Specialty Diagnoses / Procedures Referred By Contac t Referred To Contact [facility] Diagnoses SOB (shortness of breath) Procedures NITRIC OXIDE, EXHALED NITRIC OXIDE GAS DETERMINATION Genie Bustamante MD [address] [place] [address] Respiratory [place] [address] [place] [address] Referral ID Status Reason Start Date Expiration Date V isits Requested Visits Authorized [id number] Closed Auto-Generate d Referral 02/27/2022 03/29/2023 1 1 Specialty Diagnoses / Procedures Referred By Contac t Referred To Contact [facility] Diagnoses SOB (shortness of breath) Procedures SPIROMETRY WITH DILATOR IF OBSTRUCTED BRNCDILAT RSPSE SPMTRY PRE&POST-BRNCDILAT ADMN Genie Bustamante MD [address] [place] [address] [address] Referral ID Status Reason Start Date Expiration Date V isits Requested Visits Authorized [id number] Closed Auto-Generate d Referral 02/27/2022 03/29/2023 1 1 Specialty Diagnoses / Procedures Referred By Contac t Referred To Contact [facility] Diagnoses SOB (shortness of breath) Procedures LUNG VOLUMES Genie Bustamante MD [address] [place] [address] [address] Referral ID Status Reason Start Date Expiration Date V isits Requested Visits Authorized [id number] Closed Auto-Generate d Referral 02/27/2022 03/29/2023 1 [...] By Contac t Referred To Contact [facility] Diagnoses Cough variant asthma Procedures NITRIC OXIDE, EXHALED NITRIC OXIDE GAS DETERMINATION Becky Fierro PA-C [address] [facility] [place] [address] [address] Referral ID Status Reason Start Date Expiration Date V isits Requested Visits Authorized [id number] Closed Auto-Generate d Referral 12/10/2022 01/09/2024 1 1 Reason Comments Established Patient 6 month follow up co ugh variant asthma Reason Comments Medication Problem Not sure of increase of dosage Reason Comments Asthma Reason Comments Radiology NM Specialty Diagnoses / Procedures Referred By [facility] Referred To Contact MOLECULAR & FUNCTIONAL IMAGING Diagnoses PERSON (dyspnea on exertion) Essential hypertension, benign Procedures NM CARDIAC PERF STRESS/EXERCISE MYOCARDIAL [place] [address] [place] [id number] Molecular & Functional Imaging [address] [place] [address] Referral ID Status Reason Start Date Expiration Date V isits Requested Visits Authorized [id number] Closed Auto-Generate d Referral 01/04/2023 02/03/2024 1 1 Specialty Diagnoses / Procedures Referred By [facility] Referred To Contact [facility] Diagnoses SOB (shortness of breath) Cough variant asthma Procedures SPIROMETRY BASELINE ONLY SPMTRY W/VC EXPIRATORY LINDSAY W/WO MXML VOL VNTJ Becky Fierro PA-C [address] [facility] [place] [address] Respiratory [place] [address] [place] [address] Referral ID Status Reason Start Date Expiration Date V isits Requested Visits Authorized [id number] Closed Auto-Generate d Referral 04/19/2023 05/18/2024 1 1 Specialty Diagnoses / Procedures Referred By [facility] Referred To Contact [facility] Diagnoses SOB (shortness of breath) Cough variant asthma Procedures MIPS/MEPS UNLISTED PULMONARY SERVICE/PROCEDURE Becky Fierro PA-C [address] [facility] [place] [address] Respiratory [place] [address] [place] [address] Referral ID Status Reason Start Date Expiration Date V isits Requested Visits Authorized [id number] Closed Auto-Generate d Referral 04/19/2023 05/18/2024 1 1 Reason Comments Medication Problem Reason Comments Established Patient asthma Reason Comments Head Congestion drainage, cough, sor e throat and chest congestion x 2 days Reason Comments Follow Up Asthma Care Teams (unrecognized sec tion and content) De Ionizer Operator Relationship Specialty Start Date End Date Jd Solis MD [address] [facility] [place] [address] PCP - General Family Practice 01/01/21 De Ionizer Operator Relationship Specialty Start Date End Date Jd Solis MD [address] [facility] [place] [address] PCP - General Family Practice 01/01/21 De Ionizer Operator Relationship Specialty Start Date End Date Jd Solis MD [address] [facility] [place] [address] PCP - General Family Practice 01/01/21 De Ionizer Operator Relationship Specialty Start Date End Date Jd Solis MD [address] [facility] [place] [address] PCP - General Family Practice 01/01/21 De Ionizer Operator Relationship Specialty Start Date End Date Jd Solis MD [address] [place] [address] PCP - General Family Practice 01/01/21 De Ionizer Operator Relationship Specialty Start Date End Date Jd Solis MD [address] [facility] [place] [address] PCP - General Family Medicine 01/01/21 De Ionizer Operator Relationship Specialty Start Date End Date Jd Solis MD [address] [facility] [place] [address] PCP - General Family Medicine 01/01/21 De Ionizer Operator Relationship Specialty Start Date End Date Jd Solis MD [address] [facility] [place] [address] PCP - General Family Medicine 01/01/21 De Ionizer Operator Relationship Specialty Start Date End Date Jd Solis MD [address] [facility] [place] [address] PCP - General Family Medicine 01/01/21 De Ionizer Operator Relationship Specialty Start Date End Date Jd Solis MD [address] [facility] [place] [address] PCP - General Family Medicine 01/01/21 De Ionizer Operator Relationship Specialty Start Date End Date Jd Solis MD [address] [facility] [place] [address] PCP - General Family Medicine 01/01/21 De Ionizer Operator Relationship Specialty Start Date End Date Jd Solis MD [address] [facility] [place] [address] PCP - General Family Medicine 01/01/21 De Ionizer Operator Relationship Specialty Start Date End Date Jd Solis MD [address] [facility] [place] [address] PCP - General Family Medicine 01/01/21 De Ionizer Operator Relationship Specialty Start Date End Date Jd Solis MD [address] [facility] [place] [address] PCP - General Family Medicine 01/01/21 De Ionizer Operator Relationship Specialty Start Date End Date Jd Solis MD [address] [facility] [place] [address] PCP - General Family Medicine 01/01/21 De Ionizer Operator Relationship Specialty Start Date End Date Jd Solis MD [address] [facility] [place] [address] PCP - General Family Medicine 01/01/21 De Ionizer Operator Relationship Specialty Start Date End Date Jd Solis MD [address] [facility] [place] [address] PCP - General Family Medicine 01/01/21 De Ionizer Operator Relationship Specialty Start Date End Date Jd Solis MD [address] [facility] [place] [address] PCP - General Family Medicine 01/01/21 De Ionizer Operator Relationship Specialty Start Date End Date Jd Solis MD [address] [facility] [place] [address] PCP - General Family Medicine 01/01/21 De Ionizer Operator Relationship Specialty Start Date End Date Jd Solis MD [address] [place] [address] PCP - General Family Medicine 01/01/21 De Ionizer Operator Relationship Specialty Start Date End Date Jd Solis MD [address] [place] [address] PCP - General Family Medicine 01/01/21 De Ionizer Operator Relationship Specialty Start Date End Date Jd Solis MD [address] [place] [address] PCP - General Family Medicine 01/01/21 De Ionizer Operator Relationship Specialty Start Date End Date Jd Solis MD [address] [place] [address] PCP - General Family Medicine 01/01/21 De Ionizer Operator Relationship Specialty Start Date End Date Jd Solis MD [address] [place] [address] PCP - General Family Medicine 01/01/21 De Ionizer Operator Relationship Specialty Start Date End Date Jd Solis MD [address] [place] [address] PCP - General Family Medicine 01/01/21 De Ionizer Operator Relationship Specialty Start Date End Date Jd Solis MD [address] [place] [address] PCP - General Family Medicine 01/01/21 De Ionizer Operator Relationship Specialty Start Date End Date Jd Solis MD [address] [place] [address] PCP - General Family Medicine 01/01/21 De Ionizer Operator Relationship Specialty Start Date End Date Jd Solis MD [address] [place] [address] PCP - General Family Medicine 01/01/21 Team Status: Active Member Role Status Dates Dr. Daniel Naqvi III, MD Family Provider Active Dr. Jd Solis MD Primary Care Provider Active Team Status: Inactive Member Role Status Dates Dr. Jd Solis MD Primary Care Provider Active Dr. Tre García MD Attending Provider Active De Ionizer Operator Relationship Specialty Start Date End Date Jd Solis MD [address] [place] [address] PCP - General Family Medicine 01/01/21 Team Status: Active Member Role Status Dates Dr. Jd Solis MD Primary Care Provider Active Dr. Geovanny Naqvi MD Attending Provider Active Team Status: Inactive Member Role Status Dates Dr. Jd Solis MD Primary Care Provider Active Dr. Tre García MD Attending Provider, Referring Pr ovider Active De Ionizer Operator Relationship Specialty Start Date End Date Jd Solis MD [address] [place] [address] PCP - General Family Medicine 01/01/21 Team [...] Active Chacho LEAVITT MD Referring Provider Active De Ionizer Operator Relationship Specialty Start Date End Date Jd Solis MD [address] [place] [address] PCP - General Family Medicine 01/01/21 Team [...] DO Attending Provider, Emergency Pro vider Active De Ionizer Operator Relationship Specialty Start Date End Date Tre García Chi [address] [place] [address] PCP - General Gerontology 11/09/23 De Ionizer Operator Relationship Specialty Start Date End Date Tre García Chi [address] [place], [place] [address] PCP - General Gerontology 11/09/23 De Ionizer Operator Relationship Specialty Start Date End Date Tre García Chi [address] [place], [place] [address] PCP - General Gerontology 11/09/23 De Ionizer Operator Relationship Specialty Start Date End Date Jd Solis MD [address] [place], [place] [address] PCP - General Family Medicine 01/01/21 11/08/23 De Ionizer Operator Relationship Specialty Start Date End Date Tre García Chi [address] [place], [place] [id number] PCP - General Gerontology 11/09/23 De Ionizer Operator Relationship Specialty Start Date End Date Jd Solis MD [address] [facility] [place] [address] PCP - General Family Medicine 01/01/21 11/08/23 De Ionizer Operator Relationship Specialty Start Date End Date Jd Solis MD [address] [facility], [place] [address] PCP - General Family Medicine 01/01/21 11/08/23 De Ionizer Operator Relationship Specialty Start Date End Date Tre García Chi [address] [place], [place] [id number] PCP - General Gerontology 11/09/23 De 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 Tre García MD Primary Care Provider Active Start: May 17, 2024 End: May 22, 2024 Dr. Tre García MD Referring Provider Active Start: May 17, 2024 End: May 22, 2024 Kimberly Swenson RESIDENTIAL SALES EXECUTIVE, RESIDENTIAL SALES EXECUTIVE-C Attending Provider Active Start: May 17, 2024 End: May 22, 2024 Team Status: Active Member Role Status Dates Dr. Tre García MD Primary Care Provider Active Start: May 17, 2024 Dr. Tre García MD Referring Provider Active Start: May 17, 2024 Kimberly Swenson RESIDENTIAL SALES EXECUTIVE, RESIDENTIAL SALES EXECUTIVE-C Attending Provider Active Start: May 17, 2024 Kimberly Swenson RESIDENTIAL SALES EXECUTIVE, RESIDENTIAL SALES EXECUTIVE-C Other Provider Active S tart: May 17, [...] October 13, 2024 End: October 28, 2024 Team Status: Active Member Role/Relationship Status Dates Dr. Tre García MD Primary Care Provider Active Team Status: Inactive Member Role/Relationship Status Dates Dr. Tre García MD Primary Care Provider Active Start: July 28, 2024 End: July 28, 2024 Dr. Tre García MD Attending Provider Active Start: July 28, 2024 End: July 28, 2024 Dr. Tre García MD Referring Provider Active Start: July 28, 2024 End: July 28, 2024 Team Status: Inactive Member Role/Relationship Status Dates Dr. Tre García MD Primary Care Provider Active Start: August 14, 2024 End: August 14, 2024 Dr. Tre García MD Attending Provider Active Start: August 14, 2024 End: August 14, 2024 Team Status: Inactive Member Role/Relationship Status Dates Dr. Tre García MD Primary Care Provider Active Start: August 28, 2024 End: August 28, 2024 Dr. Tre García MD Attending Provider Active Start: August 28, 2024 End: August 28, 2024 Dr. Tre García MD Referring Provider Active Start: August 28, 2024 End: August 28, 2024 Team Status: Inactive Member Role/Relationship Status Dates Dr. Tre García MD Primary Care Provider Active Start: September 18, 2024 End: September 27, 2024 Dr. Tre García MD Attending Provider Active Start: September 18, 2024 End: September 27, 2024 Dr. Tre García MD Referring Provider Active Start: September 18, 2024 End: September 27, 2024 Team Status: Inactive Member Role/Relationship Status Dates Dr. Tre García MD Primary Care Provider Active Start: September 19, 2024 End: September 19, 2024 Dr. Tre García MD Attending Provider Active Start: September 19, 2024 End: September 19, 2024 Dr. Tre García MD Referring Provider Active Start: September 19, 2024 End: September 19, 2024 Team Status: Inactive Member Role/Relationship Status Dates Dr. Tre García MD Primary Care Provider Active Start: October 13, 2024 End: October 28, 2024 Dr. Tre García MD Attending Provider Active Start: October 13, 2024 End: October 28, 2024 Dr. Tre García MD Referring Provider Active Start: October 13, 2024 End: October 28, 2024 Team Status: Active Member Role/Relationship Status Dates Dr. Tre García MD Primary Care Provider Active Start: November 25, 2024 Dr. Neo Clifford DO Referring Provider Active Start: November 25, 2024 Dr. Neo Clifford DO Emergency Provider Active Start: November 25, 2024 Dr. Megan Garcia MD Admit Provider Active St art: November 25, 2024 Dr. Megan Garcia MD Attending Provider Active Start: November 25, 2024 Team Status: Active Member Role/Relationship Status Dates Dr. Tre García MD Primary Care Provider Active Start: November 25, 2024 Dr. Neo Clifford DO Referring Provider Active Start: November 25, 2024 Dr. Neo Clifford DO Emergency Provider Active Start: November 25, 2024 Dr. Megan Garcia MD Attending Provider Active Start: November 25, 2024 Team Status: Inactive Member Role/Relationship Status Dates Dr. Tre García MD Primary Care Provider Active Start: August 14, 2024 End: August 14, 2024 Dr. Tre García MD Attending Provider Active Start: August 14, 2024 End: August 14, 2024 Team Status: Inactive Member Role/Relationship Status Dates Dr. Tre García MD Primary Care Provider Active Start: August 28, 2024 End: August 28, 2024 Dr. Tre García MD Attending Provider Active Start: August 28, 2024 End: August 28, 2024 Dr. Tre García MD Referring Provider Active Start: August 28, 2024 End: August 28, 2024 Team Status: Inactive Member Role/Relationship Status Dates Dr. Tre García MD Primary Care Provider Active Start: September 18, 2024 End: September 27, 2024 Dr. Tre García MD Attending Provider Active Start: September 18, 2024 End: September 27, 2024 Dr. Tre García MD Referring Provider Active Start: September 18, 2024 End: September 27, 2024 Team Status: Inactive Member Role/Relationship Status Dates Dr. Tre García MD Primary Care Provider Active Start: September 19, 2024 End: September 19, 2024 Dr. Tre García MD Attending Provider Active Start: September 19, 2024 End: September 19, 2024 Dr. Tre García MD Referring Provider Active Start: September 19, 2024 End: September 19, 2024 Team Status: Inactive Member Role/Relationship Status Dates Dr. Tre García MD Primary Care Provider Active Start: October 13, 2024 End: October 28, 2024 Dr. Tre García MD Attending Provider Active Start: October 13, 2024 End: October 28, 2024 Dr. Tre García MD Referring Provider Active Start: October 13, 2024 End: October 28, 2024 Team Status: Inactive Member Role/Relationship Status Dates Dr. Tre García MD Primary Care Provider Active Start: November 25, 2024 End: November 27, 2024 Dr. Neo Clifford DO Referring Provider Active Start: November 25, 2024 End: November 27, 2024 Dr. Neo Clifford DO Emergency Provider Active Start: November 25, 2024 End: November 27, 2024 Dr. Megan Garcia MD Admit Provider Active St art: November 25, 2024 End: November 27, 2024 Dr. Megan Garcia MD Other Provider Active St art: November 25, 2024 End: November 27, 2024 Norman Cerda MD Other Provider Active Start: 2024 End: November 27, 2024 Dr. Dk Baltazar MD Other Provider Active Start: November 25, 2024 End: November 27, 2024 Lila López MD Other Provider Active Start : November 25, 2024 End: November 27, 2024 Dr. Jacqui Tinajero DO Other Provider Active St art: November 25, 2024 End: November 27, 2024 Dr. Edie Lombardo MD Other Provider Active Start: November 25, 2024 End: November 27, 2024 Dr. Tyler Perdomo MD Other Provider Active Sta rt: November 25, 2024 End: November 27, 2024 Dr. Jenni Lugo MD Other Provider Active Start : November 25, 2024 End: November 27, 2024 Dr. Jeffery Zee MD Other Provider Active Start: November 25, 2024 End: November 27, 2024 Dr. Souleymane Levin MD Other Provider Active Start : November 25, 2024 End: November 27, 2024 Dr. Arcenio Schultz MD Other Provider Active Sta rt: November 25, 2024 End: November 27, 2024 Alley Prince MD Other Provider Active Start : November 25, 2024 End: November 27, 2024 Dr. Kausihk Carter MD Other Provider Active St art: November 25, 2024 End: November 27, 2024 Dr. Lisa Kennedy MD Other Provider Active Start : November 25, 2024 End: November 27, 2024 Dr. Dvaid Cooley MD Other Provider Active Sta rt: November 25, 2024 End: November 27, 2024 Dr. Christiano Cabral MD Other Provider Active Start: November 25, 2024 End: November 27, 2024 Dr. Nikko Child MD Other Provider Active St art: November 25, 2024 End: November 27, 2024 Dr. Esperanza Springer MD Other Provider Active Star t: November 25, 2024 End: November 27, 2024 Dr. Jah Carey MD Other Provider Active St art: November 25, 2024 End: November 27, 2024 Dr. Khushbu Avila MD Other Provider Active Start: November 25, 2024 End: November 27, 2024 Ace Alexander MD Other Provider Active Start: November 25, 2024 End: November 27, 2024 Dr. Marilin Avila DO Attending Provider Active S tart: November 25, 2024 End: November 27, 2024 Team Status: Active Member Role/Relationship Status Dates Dr. Tre García MD Primary Care Provider Active Start: November 25, 2024 Dr. Neo Clifford DO Referring Provider Active Start: November 25, 2024 Dr. Neo Clifford DO Emergency Provider Active Start: November 25, 2024 Dr. Megan Garcia MD Attending Provider Active Start: November 25, 2024 Team Status: Active Member Role/Relationship Status Dates Dr. Tre García MD Primary Care Provider Active Start: November 26, 2024 Dr. Neo Clifford DO Referring Provider Active Start: November 26, 2024 Dr. Neo Clifford , Emergency Provider Active Start: November 26, 2024 Dr. Megan Garcia MD Admit Provider Active St art: November 26, 2024 Dr. Megan Garcia MD Other Provider Active St art: November 26, 2024 Norman Cerda MD Other Provider Active Start: 2024 Dr. Dk Baltazar MD Other Provider Active Start: November 26, 2024 Lial López MD Other Provider Active Start : November 26, 2024 Dr. Jacqui Tinajero DO Other Provider Active St art: November 26, 2024 Dr. Edie Lombardo MD Other Provider Active Start: November 26, 2024 Dr. Tyler Perdomo MD Other Provider Active Sta rt: November 26, 2024 Dr. Jenni Lugo MD Other Provider Active Start : November 26, 2024 Dr. Jeffery Zee MD Other Provider Active Start: November 26, 2024 Dr. Souleymane Levin MD Other Provider Active Start : November 26, 2024 Dr. Arcenio Schultz MD Other Provider Active Sta rt: November 26, 2024 Alley Prince MD Other Provider Active Start : November 26, 2024 Dr. Kaushik Carter MD Other Provider Active St art: November 26, 2024 Dr. Lisa Kennedy MD Other Provider Active Start : November 26, 2024 Dr. David Cooley MD Other Provider Active Sta rt: November 26, 2024 Dr. Christiano Cabral MD Other Provider Active Start: November 26, 2024 Dr. Nikko Child MD Other Provider Active St art: November 26, 2024 Dr. Esperanza Springer MD Other Provider Active Star t: November 26, 2024 Dr. Jah Carey MD Other Provider Active St art: November 26, 2024 Dr. Khushbu Avila MD Other Provider Active Start: November 26, 2024 Ace Alexander MD Other Provider Active Start: November 26, 2024 Dr. Marilin Avila DO Attending Provider Active S tart: November 26, 2024 Dr. Marilin Avila DO Other Provider Active Start : November 26, 2024 Team Status: Active Member Role/Relationship Status Dates Dr. Tre Garíca MD Primary Care Provider Active Start: November 27, 2024 Dr. Neo Clifford DO Referring Provider Active Start: November 27, 2024 Dr. Neo Clifford DO Emergency Provider Active Start: November 27, 2024 Dr. Megan Garcia MD Admit Provider Active St art: November 27, 2024 Dr. Megan Garcia MD Other Provider Active St art: November 27, 2024 Norman Cerda MD Other Provider Active Start: 2024 Dr. Dk Baltazar MD Other Provider Active Start: November 27, 2024 Lila López MD Other Provider Active Start : November 27, 2024 Dr. Jacqui Tinajero DO Other Provider Active St art: November 27, 2024 Dr. Edie Lombardo MD Other Provider Active Start: November 27, 2024 Dr. Tyler Perdomo MD Other Provider Active Sta rt: November 27, 2024 Dr. Jenni Lugo MD Other Provider Active Start : November 27, 2024 Dr. Jeffery Zee MD Other Provider Active Start: November 27, 2024 Dr. Souleymane Levin MD Other Provider Active Start : November 27, 2024 Dr. Arcenio Schultz MD Other Provider Active Sta rt: November 27, 2024 Alley Prince MD Other Provider Active Start : November 27, 2024 Dr. Kaushik Carter MD Other Provider Active St art: November 27, 2024 Dr. Lisa Kennedy MD Other Provider Active Start : November 27, 2024 Dr. David Cooley MD Other Provider Active Sta rt: November 27, 2024 Dr. Christiano Cabral MD Other Provider Active Start: November 27, 2024 Dr. Nikko Child MD Other Provider Active St art: November 27, 2024 Dr. Esperanza Springer MD Other Provider Active Star t: November 27, 2024 Dr. Jah Carey MD Other Provider Active St art: November 27, 2024 Dr. Khushbu Avila MD Other Provider Active Start: November 27, 2024 Ace Alexander MD Other Provider Active Start: November 27, 2024 Dr. Marilin Avila DO Attending Provider Active S tart: November 27, 2024 Dr. Marilin Avila DO Other Provider Active Start : November 27, 2024 Team Status: Active Member Role/Relationship Status Dates Dr. Tre García MD Primary Care Provider Active Start: November 27, 2024 Dr. Ashu Andrade MD Attending Provider Active Start: November 27, 2024 Team Status: Active Member Role/Relationship Status Dates Dr. Tre García MD Primary Care Provider Active Start: November 25, 2024 Dr. Neo Clifford DO Emergency Provider Active Start: November 25, 2024 Dr. Megan Garcia MD Attending Provider Active Start: November 25, 2024 Team Status: Active Member Role/Relationship Status Dates Dr. Tre García MD Primary Care Provider Active Start: November 26, 2024 Dr. Neo Clifford DO Emergency Provider Active Start: November 26, 2024 Dr. Megan Garcia MD Admit Provider Active St art: November 26, 2024 Dr. Megan Garcia MD Other Provider Active St art: November 26, 2024 Norman Cerda MD Other Provider Active Start: 2024 Dr. Dk Baltazar MD Other Provider Active Start: November 26, 2024 Lila López MD Other Provider Active Start : November 26, 2024 Dr. Jacqui Tinajero DO Other Provider Active St art: November 26, 2024 Dr. Edie Lombardo MD Other Provider Active Start: November 26, 2024 Dr. Tyler Perdomo MD Other Provider Active Sta rt: November 26, 2024 Dr. Jenni Lugo MD Other Provider Active Start : November 26, 2024 Dr. Jeffery Zee MD Other Provider Active Start: November 26, 2024 Dr. Souleymane Levin MD Other Provider Active Start : November 26, 2024 Dr. Arcenio Schultz MD Other Provider Active Sta rt: November 26, 2024 Alley Prince MD Other Provider Active Start : November 26, 2024 Dr. Kaushik Carter MD Other Provider Active St art: November 26, 2024 Dr. Lisa Kennedy MD Other Provider Active Start : November 26, 2024 Dr. David Cooley MD Other Provider Active Sta rt: November 26, 2024 Dr. Christiano Cabral MD Other Provider Active Start: November 26, 2024 Dr. Nikko Child MD Other Provider Active St art: November 26, 2024 Dr. Esperanza Springer MD Other Provider Active Star t: November 26, 2024 Dr. Jah Carey MD Other Provider Active St art: November 26, 2024 Dr. Khushbu Avila MD Other Provider Active Start: November 26, 2024 Ace Alexander MD Other Provider Active Start: November 26, 2024 Dr. Marilin Avila DO Attending Provider Active S tart: November 26, 2024 Dr. Marilin Avila DO Other Provider Active Start : November 26, 2024 Team Status: Active Member Role/Relationship Status Dates Dr. Tre García MD Primary Care Provider Active Start: November 27, 2024 Dr. Neo Clifford DO Emergency Provider Active Start: November 27, 2024 Dr. Megan Garcia MD Admit Provider Active St art: November 27, 2024 Dr. Megan Garcia MD Other Provider Active St art: November 27, 2024 Norman Cerda MD Other Provider Active Start: 2024 Dr. Dk Baltazar MD Other Provider Active Start: November 27, 2024 Lila López MD Other Provider Active Start : November 27, 2024 Dr. Jacqui Tinajero DO Other Provider Active St art: November 27, 2024 Dr. Edie Lombardo MD Other Provider Active Start: November 27, 2024 Dr. Tyler Perdomo MD Other Provider Active Sta rt: November 27, 2024 Dr. Jenni Lugo MD Other Provider Active Start : November 27, 2024 Dr. Jeffery Zee MD Other Provider Active Start: November 27, 2024 Dr. Souleymane Levin MD Other Provider Active Start : November 27, 2024 Dr. Arcenio Schultz MD Other Provider Active Sta rt: November 27, 2024 Alley Prince MD Other Provider Active Start : November 27, 2024 Dr. Kaushik Carter MD Other Provider Active St art: November 27, 2024 Dr. Lisa Kennedy MD Other Provider Active Start : November 27, 2024 Dr. David Cooley MD Other Provider Active Sta rt: November 27, 2024 Dr. Chritsiano Cabral MD Other Provider Active Start: November 27, 2024 Dr. Nikko Child MD Other Provider Active St art: November 27, 2024 Dr. Esperanza Springer MD Other Provider Active Star t: November 27, 2024 Dr. Jah Carey MD Other Provider Active St art: November 27, 2024 Dr. Khushbu Avila MD Other Provider Active Start: November 27, 2024 Ace Alexander MD Other Provider Active Start: November 27, 2024 Dr. Marilin Avila DO Attending Provider Active S tart: November 27, 2024 Dr. Marilin Avila DO Other Provider Active Start : November 27, 2024 Team Status: Inactive Member Role/Relationship Status Dates Dr. Tre García MD Primary Care Provider Active Start: November 29, 2024 End: November 29, 2024 Dr. Tre García MD Attending Provider Active Start: November 29, 2024 End: November 29, 2024 Dr. Tre García MD Referring Provider Active Start: November 29, 2024 End: November 29, 2024 Team Status: Inactive Member Role/Relationship Status Dates Dr. Tre aGrcía MD Primary Care Provider Active Start: September 18, 2024 End: September 27, 2024 Dr. Tre García MD Attending Provider Active Start: September 18, 2024 End: September 27, 2024 Dr. Tre García MD Referring Provider Active Start: September 18, 2024 End: September 27, 2024 Team Status: Inactive Member Role/Relationship Status Dates Dr. Tre García MD Primary Care Provider Active Start: September 19, 2024 End: September 19, 2024 Dr. Tre García MD Attending Provider Active Start: September 19, 2024 End: September 19, 2024 Dr. Tre García MD Referring Provider Active Start: September 19, 2024 End: September 19, 2024 Team Status: Inactive Member Role/Relationship Status Dates Dr. Tre García MD Primary Care Provider Active Start: October 13, 2024 End: October 28, 2024 Dr. Tre García MD Attending Provider Active Start: October 13, 2024 End: October 28, 2024 Dr. Tre García MD Referring Provider Active Start: October 13, 2024 End: October 28, 2024 Team Status: Inactive Member Role/Relationship Status Dates Dr. Tre García MD Primary Care Provider Active Start: November 25, 2024 End: November 27, 2024 Dr. Neo Clifford DO Referring Provider Active Start: November 25, 2024 End: November 27, 2024 Dr. Neo Clifford DO Emergency Provider Active Start: November 25, 2024 End: November 27, 2024 Dr. Megan Garcia MD Admit Provider Active St art: November 25, 2024 End: November 27, 2024 Dr. Megan Garcia MD Other Provider Active St art: November 25, 2024 End: November 27, 2024 Norman Cerda MD Other Provider Active Start: 2024 End: November 27, 2024 Dr. Dk Baltazar MD Other Provider Active Start: November 25, 2024 End: November 27, 2024 Lila López MD Other Provider Active Start : November 25, 2024 End: November 27, 2024 Dr. Jacqui Tinajero DO Other Provider Active St art: November 25, 2024 End: November 27, 2024 Dr. Edie Lombardo MD Other Provider Active Start: November 25, 2024 End: November 27, 2024 Dr. Tyler Perdomo MD Other Provider Active Sta rt: November 25, 2024 End: November 27, 2024 Dr. Jenni Lugo MD Other Provider Active Start : November 25, 2024 End: November 27, 2024 Dr. Jeffery Zee MD Other Provider Active Start: November 25, 2024 End: November 27, 2024 Dr. Souleymane Levin MD Other Provider Active Start : November 25, 2024 End: November 27, 2024 Dr. Arcenio Schultz MD Other Provider Active Sta rt: November 25, 2024 End: November 27, 2024 Alley Prince MD Other Provider Active Start : November 25, 2024 End: November 27, 2024 Dr. Kaushik Carter MD Other Provider Active St art: November 25, 2024 End: November 27, 2024 Dr. Lisa Kennedy MD Other Provider Active Start : November 25, 2024 End: November 27, 2024 Dr. David Cooley MD Other Provider Active Sta rt: November 25, 2024 End: November 27, 2024 Dr. Christiano Cabral MD Other Provider Active Start: November 25, 2024 End: November 27, 2024 Dr. Nikko Child MD Other Provider Active St art: November 25, 2024 End: November 27, 2024 Dr. Esperanza Springer MD Other Provider Active Star t: November 25, 2024 End: November 27, 2024 Dr. Jah Carey MD Other Provider Active St art: November 25, 2024 End: November 27, 2024 Dr. Khushbu Avila MD Other Provider Active Start: November 25, 2024 End: November 27, 2024 Ace Alexander MD Other Provider Active Start: November 25, 2024 End: November 27, 2024 Dr. Marilin Avila DO Attending Provider Active S tart: November 25, 2024 End: November 27, 2024 Team Status: Active Member Role/Relationship Status Dates Dr. Tre García MD Primary Care Provider Active Start: November 25, 2024 Dr. Neo Clifford DO Emergency Provider Active Start: November 25, 2024 Dr. Megan Garcia MD Attending Provider Active Start: November 25, 2024 Team Status: Active Member Role/Relationship Status Dates Dr. Tre García MD Primary Care Provider Active Start: November 26, 2024 Dr. Neo Clifford DO Emergency Provider Active Start: November 26, 2024 Dr. Megan Garcia MD Admit Provider Active St art: November 26, 2024 Dr. Megan Garcia MD Other Provider Active St art: November 26, 2024 Norman Cerda MD Other Provider Active Start: 2024 Dr. Dk Baltazar MD Other Provider Active Start: November 26, 2024 Lila López MD Other Provider Active Start : November 26, 2024 Dr. Jacqui Tinajero DO Other Provider Active St art: November 26, 2024 Dr. Edie Lombardo MD Other Provider Active Start: November 26, 2024 Dr. Tyler Perdomo MD Other Provider Active Sta rt: November 26, 2024 Dr. Jenni Lugo MD Other Provider Active Start : November 26, 2024 Dr. Jeffery Zee MD Other Provider Active Start: November 26, 2024 Dr. Souleymane Levin MD Other Provider Active Start : November 26, 2024 Dr. Arcenio Schultz MD Other Provider Active Sta rt: November 26, 2024 Alley Prince MD Other Provider Active Start : November 26, 2024 Dr. Kaushik Carter MD Other Provider Active St art: November 26, 2024 Dr. Lisa Kennedy MD Other Provider Active Start : November 26, 2024 Dr. David Cooley MD Other Provider Active Sta rt: November 26, 2024 Dr. Christiano Cabral MD Other Provider Active Start: November 26, 2024 Dr. Nikko Child MD Other Provider Active St art: November 26, 2024 Dr. Esperanza Springer MD Other Provider Active Star t: November 26, 2024 Dr. Jah Carey MD Other Provider Active St art: November 26, 2024 Dr. Khushbu Avila MD Other Provider Active Start: November 26, 2024 Ace Alexander MD Other Provider Active Start: November 26, 2024 Dr. Marilin Avila DO Attending Provider Active S tart: November 26, 2024 Dr. Marilin Avila DO Other Provider Active Start : November 26, 2024 Team Status: Active Member Role/Relationship Status Dates Dr. Tre García MD Primary Care Provider Active Start: November 27, 2024 Dr. Neo Clifford DO Emergency Provider Active Start: November 27, 2024 Dr. Megan Garcia MD Admit Provider Active St art: November 27, 2024 Dr. Megan Garcia MD Other Provider Active St art: November 27, 2024 Norman Cerda MD Other Provider Active Start: 2024 Dr. Dk Baltazar MD Other Provider Active Start: November 27, 2024 Lila López MD Other Provider Active Start : November 27, 2024 Dr. Jacqui Tinajero DO Other Provider Active St art: November 27, 2024 Dr. Edie Lombardo MD Other Provider Active Start: November 27, 2024 Dr. Tyler Perdomo MD Other Provider Active Sta rt: November 27, 2024 Dr. Jenni Lugo MD Other Provider Active Start : November 27, 2024 Dr. Jeffery Zee MD Other Provider Active Start: November 27, 2024 Dr. Souleymane Levin MD Other Provider Active Start : November 27, 2024 Dr. Arcenio Schultz MD Other Provider Active Sta rt: November 27, 2024 Alley Prince MD Other Provider Active Start : November 27, 2024 Dr. Kaushik Carter MD Other Provider Active St art: November 27, 2024 Dr. Lisa Kennedy MD Other Provider Active Start : November 27, 2024 Dr. David Cooley MD Other Provider Active Sta rt: November 27, 2024 Dr. Christiano Cabral MD Other Provider Active Start: November 27, 2024 Dr. Nikko Child MD Other Provider Active St art: November 27, 2024 Dr. Esperanza Springer MD Other Provider Active Star t: November 27, 2024 Dr. Jah Carey MD Other Provider Active St art: November 27, 2024 Dr. Khushbu Avila MD Other Provider Active Start: November 27, 2024 Ace Alexander MD Other Provider Active Start: November 27, 2024 Dr. Marilin Avila DO Attending Provider Active S tart: November 27, 2024 Dr. Marilin Avila DO Other Provider Active Start : November 27, 2024 Team Status: Active Member Role/Relationship Status Dates Dr. Tre García MD Primary Care Provider Active Start: November 27, 2024 Dr. Ashu Andrade MD Attending Provider Active Start: November 27, 2024 Team Status: Inactive Member Role/Relationship Status Dates Dr. Tre García MD Primary Care Provider Active Start: November 29, 2024 End: November 29, 2024 Dr. Tre García MD Attending Provider Active Start: November 29, 2024 End: November 29, 2024 Dr. Tre García MD Referring Provider Active Start: November 29, 2024 End: November 29, 2024 Team Status: Active Member Role/Relationship Status Dates Dr. Tre García MD Primary Care Provider Active Start: December 14, 2024 Elvia Mccullough Attending Provider Active Start: December 14, 2024 Team Status: Inactive Member Role/Relationship Status Dates Dr. Tre García MD Referring Provider Active Start: January 02, 2025 End: January 02, 2025 Dr. Andres Schneider MD Attending Provider Active S tart: January 02, 2025 End: January 02, 2025 Team Status: Active Member Role/Relationship Status Dates Dr. Andres Schneider MD Attending Provider Active S tart: January 02, 2025 Dr. Andres Schneider MD Referring Provider Active S tart: January 02, 2025 Team Status: Inactive Member Role/Relationship Status Dates Dr. Andres Schneider MD Attending Provider Active S tart: January 02, 2025 End: January 02, 2025 Dr. Andres Schneider MD Referring Provider Active S tart: January 02, 2025 End: January 02, 2025 Team Status: Inactive Member Role/Relationship Status Dates Dr. Tre García MD Primary Care Provider Active Start: October 13, 2024 End: October 28, 2024 Dr. Tre García MD Attending Provider Active Start: October 13, 2024 End: October 28, 2024 Dr. Tre García MD Referring Provider Active Start: October 13, 2024 End: October 28, 2024 Team Status: Inactive Member Role/Relationship Status Dates Dr. Tre García MD Primary Care Provider Active Start: November 25, 2024 End: November 27, 2024 Dr. Neo Clifford DO Referring Provider Active Start: November 25, 2024 End: November 27, 2024 Dr. Neo Clifford DO Emergency Provider Active Start: November 25, 2024 End: November 27, 2024 Dr. Megan Garcia MD Admit Provider Active St art: November 25, 2024 End: November 27, 2024 Dr. Megan Garcia MD Other Provider Active St art: November 25, 2024 End: November 27, 2024 Norman Cerda MD Other Provider Active Start: 2024 End: November 27, 2024 Dr. Dk Baltazar MD Other Provider Active Start: November 25, 2024 End: November 27, 2024 Lila López MD Other Provider Active Start : November 25, 2024 End: November 27, 2024 Dr. Jacqui Tinajero DO Other Provider Active St art: November 25, 2024 End: November 27, 2024 Dr. Edie Lombardo MD Other Provider Active Start: November 25, 2024 End: November 27, 2024 Dr. Tyler Perdomo MD Other Provider Active Sta rt: November 25, 2024 End: November 27, 2024 Dr. Jenni Lugo MD Other Provider Active Start : November 25, 2024 End: November 27, 2024 Dr. Jeffery Zee MD Other Provider Active Start: November 25, 2024 End: November 27, 2024 Dr. Souleymane Levin MD Other Provider Active Start : November 25, 2024 End: November 27, 2024 Dr. Arcenio Schultz MD Other Provider Active Sta rt: November 25, 2024 End: November 27, 2024 Alley Prince MD Other Provider Active Start : November 25, 2024 End: November 27, 2024 Dr. Kaushik Carter MD Other Provider Active St art: November 25, 2024 End: November 27, 2024 Dr. Lisa Kennedy MD Other Provider Active Start : November 25, 2024 End: November 27, 2024 Dr. David Cooley MD Other Provider Active Sta rt: November 25, 2024 End: November 27, 2024 Dr. Christiano Cabral MD Other Provider Active Start: November 25, 2024 End: November 27, 2024 Dr. Nikko Child MD Other Provider Active St art: November 25, 2024 End: November 27, 2024 Dr. Esperanza Springer MD Other Provider Active Star t: November 25, 2024 End: November 27, 2024 Dr. Jah Carey MD Other Provider Active St art: November 25, 2024 End: November 27, 2024 Dr. Khushbu Avila MD Other Provider Active Start: November 25, 2024 End: November 27, 2024 Ace Alexander MD Other Provider Active Start: November 25, 2024 End: November 27, 2024 Dr. Marilin Avila DO Attending Provider Active S tart: November 25, 2024 End: November 27, 2024 Team Status: Active Member Role/Relationship Status Dates Dr. Tre García MD Primary Care Provider Active Start: November 25, 2024 Dr. Neo Clifford DO Emergency Provider Active Start: November 25, 2024 Dr. Megan Garcia MD Attending Provider Active Start: November 25, 2024 Team Status: Active Member Role/Relationship Status Dates Dr. Tre García MD Primary Care Provider Active Start: November 26, 2024 Dr. Neo Clifford DO Emergency Provider Active Start: November 26, 2024 Dr. Megan Garcia MD Admit Provider Active St art: November 26, 2024 Dr. Megan Garcia MD Other Provider Active St art: November 26, 2024 Norman Cerda MD Other Provider Active Start: 2024 Dr. Dk Baltazar MD Other Provider Active Start: November 26, 2024 Lila López MD Other Provider Active Start : November 26, 2024 Dr. Jacqui Tinajero DO Other Provider Active St art: November 26, 2024 Dr. Edie Lombardo MD Other Provider Active Start: November 26, 2024 Dr. Tyler Perdomo MD Other Provider Active Sta rt: November 26, 2024 Dr. Jenni Lugo MD Other Provider Active Start : November 26, 2024 Dr. Jeffery Zee MD Other Provider Active Start: November 26, 2024 Dr. Souleymane Levin MD Other Provider Active Start : November 26, 2024 Dr. Arcenio Schultz MD Other Provider Active Sta rt: November 26, 2024 Alley Prince MD Other Provider Active Start : November 26, 2024 Dr. Kaushik Carter MD Other Provider Active St art: November 26, 2024 Dr. Lisa Kennedy MD Other Provider Active Start : November 26, 2024 Dr. David Cooley MD Other Provider Active Sta rt: November 26, 2024 Dr. Christiano Cabral MD Other Provider Active Start: November 26, 2024 Dr. Nikko Child MD Other Provider Active St art: November 26, 2024 Dr. Esperanza Springer MD Other Provider Active Star t: November 26, 2024 Dr. Jah Carey MD Other Provider Active St art: November 26, 2024 Dr. Khushbu Avila MD Other Provider Active Start: November 26, 2024 Ace Alexander MD Other Provider Active Start: November 26, 2024 Dr. Marilin Avila DO Attending Provider Active S tart: November 26, 2024 Dr. Marilin Avila DO Other Provider Active Start : November 26, 2024 Team Status: Active Member Role/Relationship Status Dates Dr. Tre García MD Primary Care Provider Active Start: November 27, 2024 Dr. Neo Clifford DO Emergency Provider Active Start: November 27, 2024 Dr. Megan Garcia MD Admit Provider Active St art: November 27, 2024 Dr. Megan Gracia MD Other Provider Active St art: November 27, 2024 Norman Cerda MD Other Provider Active Start: 2024 Dr. Dk Baltazar MD Other Provider Active Start: November 27, 2024 Lila López MD Other Provider Active Start : November 27, 2024 Dr. Jacqui Tinajero DO Other Provider Active St art: November 27, 2024 Dr. Edie Lombardo MD Other Provider Active Start: November 27, 2024 Dr. Tyler Perdomo MD Other Provider Active Sta rt: November 27, 2024 Dr. Jenni Lugo MD Other Provider Active Start : November 27, 2024 Dr. Jeffery Zee MD Other Provider Active Start: November 27, 2024 Dr. Souleymane Levin MD Other Provider Active Start : November 27, 2024 Dr. Arcenio Schultz MD Other Provider Active Sta rt: November 27, 2024 Alley Prince MD Other Provider Active Start : November 27, 2024 Dr. Kaushik Carter MD Other Provider Active St art: November 27, 2024 Dr. Lisa Kennedy MD Other Provider Active Start : November 27, 2024 Dr. David Cooley MD Other Provider Active Sta rt: November 27, 2024 Dr. Christiano Cabral MD Other Provider Active Start: November 27, 2024 Dr. Nikko Child MD Other Provider Active St art: November 27, 2024 Dr. Esperanza Springer MD Other Provider Active Star t: November 27, 2024 Dr. Jah Carey MD Other Provider Active St art: November 27, 2024 Dr. Khushbu Avila MD Other Provider Active Start: November 27, 2024 Ace Alexander MD Other Provider Active Start: November 27, 2024 Dr. Marilin Avila DO Attending Provider Active S tart: November 27, 2024 Dr. Marilin Avila DO Other Provider Active Start : November 27, 2024 Team Status: Active Member Role/Relationship Status Dates Dr. Tre García MD Primary Care Provider Active Start: November 27, 2024 Dr. Ashu Andrade MD Attending Provider Active Start: November 27, 2024 Team Status: Inactive Member Role/Relationship Status Dates Dr. Tre García MD Primary Care Provider Active Start: November 29, 2024 End: November 29, 2024 Dr. Tre García MD Attending Provider Active Start: November 29, 2024 End: November 29, 2024 Dr. Tre García MD Referring Provider Active Start: November 29, 2024 End: November 29, 2024 Team Status: Active Member Role/Relationship Status Dates Dr. Tre García MD Primary Care Provider Active Start: December 14, 2024 Elvia Mccullough Attending Provider Active Start: December 14, 2024 Team Status: Inactive Member Role/Relationship Status Dates Dr. Tre García MD Referring Provider Active Start: January 02, 2025 End: January 02, 2025 Dr. Andres Schneider MD Attending Provider Active S tart: January 02, 2025 End: January 02, 2025 Team Status: Inactive Member Role/Relationship Status Dates Dr. Andres Schneider MD Attending Provider Active S tart: January 02, 2025 End: January 02, 2025 Dr. Andres Schneider MD Referring Provider Active S tart: January 02, 2025 End: January 02, 2025 Team Status: Active Member Role/Relationship Status Dates Dr. Tre García MD Primary Care Provider Active Start: January 24, 2025 Dr. Tre García MD Attending Provider Active Start: January 24, 2025 Dr. Tre García MD Referring Provider Active Start: January 24, 2025 Team Status: Inactive Member Role/Relationship Status Dates Dr. Tre García MD Primary Care Provider Active Start: January 25, 2025 End: January 28, 2025 Dr. Tre García MD Referring Provider Active Start: January 25, 2025 End: January 28, 2025 Dr. Beba Ahumada MD Attending Provider Active Start: January 25, 2025 End: January 28, 2025 Team Status: Active Member Role/Relationship Status Dates Dr. Tre García MD Primary Care Provider Active Start: January 25, 2025 Dr. Tre García MD Referring Provider Active Start: January 25, 2025 Dr. Beba Ahumada MD Attending Provider Active Start: January 25, 2025 Dr. Beba Ahumada MD Other Provider Active Start: January 25, 2025 Team Status: Inactive Member Role/Relationship Status Dates Dr. Tre García MD Primary Care Provider Active Start: January 24, 2025 End: January 24, 2025 Dr. Tre García MD Attending Provider Active Start: January 24, 2025 End: January 24, 2025 Dr. Tre García MD Referring Provider Active Start: January 24, 2025 End: January 24, 2025 Team Status: Inactive Member Role/Relationship Status Dates Dr. Andres Schneider MD Attending Provider Active S tart: January 31, 2025 End: January 31, 2025 Dr. Tre García MD Primary Care Provider Active Start: January 31, 2025 End: January 31, 2025 Dr. Tre García MD Referring Provider Active Start: January 31, 2025 End: January 31, 2025 Goals (unrecognized section and content) Goals may [...] BE BASED ON THE PRIMARY CLINICAL RECORDS. [facility] provides no warranty or guarantee of the accuracy or completeness of information in this document.
--- NOTE | 2025-02-03 16:45 | EX.ED.DYSGE1 ---
HPI History of Present Illness Chief Complaint: Edema Narrative Narrative: Chief complaint and HPI: Left lower extremity swelling with wound. 80-year-old male with past medical history of GERD, depression, HTN, BPH presents for evaluation of left lower extremity swelling with wound. Patient states approximately 2 weeks ago he fell on his left side. States he developed a wound to the left knee and left wrist. States he saw his PCP in which he was placed on antibiotics to prevent infection. States he has been following with wound care given the chronic healing. Patient states for the past 2 days he has had swelling in the left lower extremity from the foot to the mid calf. He denies any pain. States he had some slight paresthesias in the foot earlier today but this has resolved. States he presented to make sure the swelling was not from infection. He denies any fever, chills, shortness of breath, chest pain, abdominal pain, nausea, vomiting, numbness/tingling, weakness, swelling elsewhere. Review of systems: See HPI Medications: As listed on the chart Allergies: As listed on the chart PFSH: Per chart Vital signs: As listed on the chart. Reviewed. Physical exam: Gen: A&O x3, NAD Head: Normocephalic, atraumatic Eyes: No sclera icterus, conjunctiva clear ENT: Moist mucous membranes Neck: Trachea midline, No JVD, full range of motion CV: RRR, no murmurs Resp: Lungs CTA BL, no w/r/c GI: Abd soft, non-distended, non-tender, no r/r/g Musc: Full ROM, no deformity, strength +5/5 in all extremities, patient has +1 pitting edema in the left foot to the mid calf -negative Homans' sign and nontender to palpation, DP/PT pulses +2 bilaterally, good capillary refill, compartments soft, no erythema/warmth/crepitus to the skin, has abrasion to the left knee healing well without signs of infection, has abrasion to the left wrist healing well without signs of infection Skin: Warm, dry Neuro: Alert, oriented, grossly intact, sensation intact Psych: Cooperative, appropriate mood and affect [facility] Medical History History of fall Laceration of knee, left Easy bruising Thrombocytopenia Elevated troponin COPD (chronic obstructive pulmonary disease) Former tobacco use Obesity CKD (chronic kidney disease), stage II Allergic rhinitis Anxiety and depression Constipation Chronic low back pain BPH (benign prostatic hyperplasia) Hyperlipidemia Asthma COVID-19 Hypertension GERD (gastroesophageal reflux disease) Home Medications ?Medication ?Instructions ?Recorded ?Last Taken ?Type lisinopril 5 mg tablet 5 mg PO DAILY 08/28/20 Unknown History tamsulosin 0.4 mg capsule 0.4 mg PO QHS 06/16/21 Unknown History montelukast 10 mg tablet 10 mg PO DAILY 05/06/23 Unknown History nortriptyline 50 mg capsule 50 mg PO BID 06/02/23 Unknown History omeprazole 10 mg capsule,delayed 40 mg PO DAILY 06/02/23 Unknown History release budesonide 160 mcg-glycopyr 9 2 inh inhalation BID 11/25/24 Unknown History mcg-formot 4.8 mcg/actuation HFA inhaler (Breztri Aerosphere) cholecalciferol (vitamin D3) 25 25 mcg PO DAILY Not sure 01/02/25 Unknown History mcg (1,000 unit) tablet (Vitamin D3) polyethylene glycol 3350 17 gram 17 g PO BID Constipation 01/02/25 Unknown History oral powder packet lactobacillus combination no.9 4 4,000 mmu cells PO QDAY 01/31/25 Unknown History billion cell capsule (Adult 50 Plus Probiotic) Allergy/AdvReac Type Severity Reaction Status Date / Time No Known Allergies Allergy Verified 02/03/25 14:26 Family History Mother Depression CVA (cerebral vascular accident) Anxiety Hypertension Father Pancreatic cancer Surgical History Hx of tonsillectomy Hx of cataract extraction Social History household members: spouse Smoking Status: Former smoker how long ago did patient quit smoking: Quit 1974, smoked cigars only. alcohol intake: never substance use type: does not use EXAM Physical Exam Const Vital Signs: 02/03/25 14:24 Temperature 98.8 F Temperature Source Oral Pulse Rate 112 H Respiratory Rate 16 Blood Pressure 118/75 Blood Pressure Mean 89 Pulse Ox 95 Oxygen Delivery Method Room Air MDM MDM MDM Narrative Medical decision making narrative: 80-year-old male with past medical history of GERD, depression, HTN, BPH presents for evaluation of left lower extremity swelling with wound. Patient states approximately 2 weeks ago he fell on his left side. States he developed a wound to the left knee and left wrist. States he saw his PCP in which he was placed on antibiotics to prevent infection. States he has been following with wound care given the chronic healing. Patient states for the past 2 days he has had swelling in the left lower extremity from the foot to the mid calf. Denies pain. Was concern for infection which is why presents to the emergency department. Patient denies any infectious systemic symptoms. On presentation, he is in no acute distress. Physical exam without signs of cellulitis or wound infection. He does have +1 pitting edema of the left foot to the mid calf. No pain. Compartments are soft. Patient has no deformity or pain to suggest any need for x-rays. Given this happened 2 weeks ago, do not suspect fracture. Differential diagnosis includes but is not limited to soft tissue swelling, venous insufficiency, DVT. I do not think any laboratory workup is needed at this time given the swelling is asymmetric. Patient in agreement. Recommend following up with PCP. Continue to see wound care and monitor for signs of infection. I do not have vascular ultrasound available to assess for DVT at this time. Will give outpatient order. Return precautions were explained. Patient confirmed understanding of the plan. Patient stable to discharge home. Impression: 1. Left lower extremity swelling 2. Skin abrasions 3. History of recent fall Discharge Plan Triage Chief Complaint: Edema ED Provider: Rufino Mobley Dx/Rx/DC Orders Prescriptions: No Action montelukast 10 mg tablet 10 mg PO DAILY nortriptyline 50 mg capsule 50 mg PO BID cholecalciferol (vitamin D3) [Vitamin D3] 25 mcg (1,000 unit) tablet 25 mcg PO DAILY Adult 50 Plus Probiotic 4 billion cell capsule 4,000 mmu cells PO QDAY Rx Instructions: administer with a meal polyethylene glycol 3350 17 gram powder in packet 17 g PO BID Patient Comments: constipation lisinopril 5 MG tablet 5 mg PO DAILY omeprazole 10 mg capsule,delayed release(DR/EC) 40 mg PO DAILY tamsulosin 0.4 mg capsule 0.4 mg PO QHS Breztri Aerosphere 160-9-4.8 mcg/actuation HFA aerosol inhaler 2 inh INHALATION BID Primary Care Provider: Tre García Chi Referrals: Tre García Chi, MD [Primary Care Provider] - Print Language: [place]
[2025-02-03 17:07] VITALS: BP 134/84; PULSE 88; RESP 16; O2SAT 99
[2025-02-03 17:10] VITALS: BP 134/84; PULSE 88; RESP 16; TEMP 36.8; O2SAT 99
--- OUTSIDE RECORDS SUMMARY | 2025-02-04 10:59 | XMS RPT_ITS | CCD ---
Author Organization [facility] Care Team Providers Care Centrifugal Drier Operator Name Role Phone Jd Solis MD Primary Care Provider Dr. Jd Solis Primary Care Provider Dr. Geovanny Naqvi Attending Provider [phone] Jd Solis MD Primary Care Provider [phone] Dr. Tre Jean Primary Care Provider [phone] Dr. Tre García MD, Chi Attending Provider Dr. Tre García MD, Chi Referring Provider [phone] Messi SPRAY MACHINE OPERATOR-C, Kimberly Attending Provider Messi SPRAY MACHINE OPERATOR-C, Kimberly Other Provider Ricky ALFONSO, Dr. Tre [...] Conor ALFONSO, Dr. Scott Other Provider [phone] Parish ALFONSO, Dr. Arteaga Other Provider Saadia ALFONSO, Dr. Gil Other Provider [phone] Ollie ALFONSO, Dr. Comer Other Provider Antoine ALFONSO, Dr. Rg Other Provider [phone] Alley Prince MD Other Provider Raul ALFONSO, Dr. Faulkner Other Provider [phone] Brent ALFONSO, Dr. Gonzalez Other Provider Yasir ALFONSO, Dr. Hernandez Other Provider Misha ALFONSO, Dr. Christiano Deal Other Provider [phone] RDW Std Deviation 45.5 H RDW Coeff of Chucho 13.5 Plt Count 124 L MPV 9.5 Immature Gran % (Auto) 0.400 Neut % (Auto) 41.5 L Lymph % (Auto) 52.1 H [place] % (Auto) 5.2 Eos % (Auto) 0.4 [...] at 8:31 pm on 11/25/24. Reading Location: [facility] Chest X-Ray 11/25/24 20:13 IMPRESSION: No significant change since last exam. Reading Location: [facility] Head/Neck CTA 11/25/24 20:14 IMPRESSION: No large vessel occlusion, aneurysm or AVM. Reading Location: [facility] Discharge Plan Triage Chief Complaint: Dizziness ED [...] MD [Primary Care Provider] - Print Language: Chadian Disposition Disposition: Acute Care Hospital [facility] What to do if you have Problems For any increased pain, shortness of breath, bleeding, nausea or vomiting, chestpain, or any unexpected problems, contact your Primary Care Provider. Call [facility] ([phone]) or report to the closest Emergency Room. Call 911 if necessary. 11/25/242134 <Electronically signed by Neo Clifford DO> Cosigner Signature (if applicable): CC: Dr. Tre García MD ~ Signed [facility] Work Phone: [phone] 140-401806-28-2025 Evaluation note* Diagnosis Onset Date Resolution Status Admit Date Change in vision acute October 9:27pm Dizziness acute November 25 9:27pm Elevated troponin acute November 252024 9:27pm Hyperlipidemia acute November 25, 2024 9:27pm TIA (transient ischemic attack) acut e November 25, 2024 9:27pm Hypertension chronic November 25, 2 025 9:27pm [facility] Work Phone: [phone] 546-935206-28-2025 Evaluation note* Diagnosis Onset Date Resolution Status Admit Date Change in vision resolved October 9:27pm Dizziness resolved November 25 9:27pm Elevated troponin inactive November 252024 9:27pm Hyperlipidemia inactive November 25, 2024 9:27pm Hypertension inactive November 25, 2 025 9:27pm TIA (transient ischemic attack) ioana silvestre November 25, 2024 9:27pm [facility] Work Phone: 1(729) 824-434306-28-2025 Evaluation note* Diagnosis Onset Date Resolution Status Admit Date Change in vision resolved October 9:27pm Dizziness resolved November 25 9:27pm Elevated troponin inactive November 252024 9:27pm Hyperlipidemia inactive November 25, 2024 9:27pm Hypertension inactive November 25, 2 025 9:27pm TIA (transient ischemic attack) ioana silvestre November 25, 2024 9:27pm Thrombocytopenia chronic January 022024 2:18pm [facility] Work Phone: 1([phone]) 469-818406-28-2025 Evaluation note* Diagnosis Onset Date Resolution Status [...] left forearm acute January 25, 2025 9:55am [facility] Work Phone: 1(503) 382-147806-28-2025 Evaluation note* Diagnosis Onset Date Resolution Status [...] acute January 25, 2025 9:55am Thrombocytopenia chronic 2024 3:19pm [facility] Work Phone: 1(354) 223-408606-28-2025 Evaluation note* Diagnosis Onset Date Resolution Status [...] 9:55am Thrombocytopenia chronic Septembe r 2024 3:19pm History of fall acute February 01, 2025 10:19am Laceration of knee, left acute February 01, 2025 10:19am Laceration of left forearm acute February 01, 2025 10:19am [facility] Work Phone: [phone] History and physical note [facility] Medical Records Department [address] [place] [address] H&P Exam - Hospitalist 11/25/242132 MR#: [id number] Acct: [id number] Name: VALENTINA CABRERA Rep #:[id number] : [...] withallergic rhinitis, GERD who presents to the [facility] ED on 11/17/2024 with historyof vision changes [...] full-strengthaspirin therapy 325 mg p.o. x 1. [facility] Medical History Former tobacco use Obesity CKD [...] 4 extremities, no focaldeficits, strength preserved,finger-nose and upvq-tc-bfag appropriate, sensation intact, negative Babinski, feels of [...] 41.5 L, Lymph % (Auto) 52.1 H, [place] % (Auto) 5.2, Eos % (Auto) 0.4, [...] at 8:31 pm on 11/25/24. Reading Location: [facility] Chest X-Ray 11/25/24 20:13 IMPRESSION: No significant change since last exam. Reading Location: [facility] Head/Neck CTA 11/25/24 20:14 IMPRESSION: No large vessel occlusion, aneurysm or AVM. Reading Location: [facility] Assessment & Plan Assessment/Plan (1) TIA (transient ischemic attack): PLAN: Plan The patient is an 79 y/o M w/ PMHx: Obesity, Former tobacco use, CKD stage II per GFR trending, BPHwith obstructive pathology, HTN, HLD, Anxiety and Depression, Chronic lumbar back pain, Asthma withallergic rhinitis, GERD who presents to the [facility] ED on 11/17/2024 with historyof vision changes [...] w/ AM FLP, fall precautions. Mag, TSH, EljH1tmoyubmlok. Maintain on fall and aspiration precautions. Will [...] Code status. Charges/Coding Visit Charges Inpatient E&M: 13385 Init Hosp L3 11/25/24 2150 Cosigner Signature (if applicable): CC: Dr. Megan Garcia MD; Dr. Tre García MD~ Signed [facility]06-28-2025 Discharge summary [facility] Medical Records Department [address] [place] [address] Emergency Department Summary 11/25/24 MR#: [id number] Acct: [id number] Name: VALENTINA CABRERA Rep #:[id number] : [...] or trauma denies any blood thinning medications. [facility] Medical History (Updated 11/25/24 @ 21:35 [...] following commands knew that he was at [facility] year is 2024. NIHof 0 GCS 15 [...] 41.5 L Lymph % (Auto) 52.1 H [place] % (Auto) 5.2 Eos % (Auto) 0.4 [...] at 8:31 pm on 11/25/24. Reading Location: [facility] Chest X-Ray 11/25/24 20:13 IMPRESSION: No significant change since last exam. Reading Location: [facility] Head/Neck CTA 11/25/24 20:14 IMPRESSION: No large vessel occlusion, aneurysm or AVM. Reading Location: [facility] Discharge Plan Triage Chief Complaint: Dizziness ED [...] MD [Primary Care Provider] - Print Language: Chadian Disposition Disposition: Acute Care Hospital [facility] What to do if you have Problems For any increased pain, shortness of breath, bleeding, nausea or vomiting, chestpain, or any unexpected problems, contact your Primary Care Provider. Call [facility] ([phone]) or report tothe closest Emergency Room. Call 911 if necessary. 11/25/242134 Cosigner Signature (if applicable): CC: Dr. Tre García MD ~ Signed [facility]06-28-2025 Radiology Diagnostic study note [facility] Imaging Services [address] [place], [place] [address] Chest 1 View (Portable) MR#: [id number] Acct: [id number] Name: VALENTINA CABRERA Rep #: [id number] : 1945 M 79 From: Katie Fam MD PCP: Dr. Tre García MD Status: REG E R Study:Chest 1 View (Portable) Date of Exam: 11/25/24 Exam# [id number] Ordering Dr: Enedina Clifford DO PROCEDURE: CHEST [...] significant change since last exam. Reading Location: [id number] CC: Dr. Tre García MD; Dr. Neo Clifford, ~ Director Sales And Marketing: Signed [facility]06-28-2025 Radiology Diagnostic study note [facility] Imaging Services [address] [place], [place] [id number] STROKE CTA Head AND Neck W/Con MR#: [id number] Acct: [id number] Name: VALENTINA CABRERA Rep #: [id number] : 1945 M 79 From: Katie Fam MD PCP: Dr. Tre García MD Status: REG E R Study:STROKE CTA Head AND Neck W/Con Date of Exam: 11/25/24 Exam# [id number] Ordering Dr: Enedina Clifford DO PROCEDURE: STROKE [...] vessel occlusion, aneurysm or AVM. Reading Location: [id number] CC: Dr. Tre García MD; Dr. Neo Clifford DO ~ Director Sales And Marketing: Signed [facility]06-28-2025 Radiology Diagnostic study note [facility] Imaging Services [address] [place], [place] [address] STROKE Brain/Head without Cont MR#: [id number] Acct: [id number] Name: VALENTINA CABRERA Rep #: [id number] : 1945 M 79 From: Katie Fam MD PCP: Dr. Tre García MD Status: REG E R Study:STROKE Brain/Head without Cont Date of Exam: 11/25/24 Exam# [id number] Ordering Dr: Enedina Clifford DO EXAM: STROKE [...] at 8:31 pm on 11/25/24. Reading Location: [id number] CC: Dr. Tre García MD; Dr. Neo Clifford DO ~ Director Sales And Marketing: Signed [facility]06-28-2025 Discharge summary Author Neo Clifford [facility] Note Date/Time November 25, 2024 9:35 pm [facility] Medical Records Department [address] [place] [address] Emergency Department Summary 11/25/24 MR#: [id number] Acct: [id number] Name: VALENTINA CABRERA Rep #:[id number] : [...] or trauma denies any blood thinning medications. [facility] Medical History (Updated 11/25/24 @ 21:35 [...] following commands knew that he was at [facility] year is 2024. NIH of 0 GCS [...] 41.5 L Lymph % (Auto) 52.1 H [place] % (Auto) 5.2 Eos % (Auto) 0.4 [...] at 8:31 pm on 11/25/24. Reading Location: [facility] Chest X-Ray 11/25/24 20:13 IMPRESSION: No significant change since last exam. Reading Location: [facility] Head/Neck CTA 11/25/24 20:14 IMPRESSION: No large vessel occlusion, aneurysm or AVM. Reading Location: [facility] Discharge Plan Triage Chief Complaint: Dizziness ED [...] MD [Primary Care Provider] - Print Language: Chadian Disposition Disposition: Acute Care Hospital [facility] What to do if you have Problems For any increased pain, shortness of breath, bleeding, nausea or vomiting, chestpain, or any unexpected problems, contact your Primary Care Provider. Call [facility] ([phone]) or report to the closest Emergency Room. Call 911 if necessary. 11/25/242134 <Electronically signed by Neo Clifford DO> Cosigner Signature (if applicable): CC: Dr. Tre García MD ~ Signed [facility] Work Phone: 1([phone]) [phone] Evaluation note* Diagnosis Onset Date Resolution Status Admit Date Change in vision acute October 9:27pm Dizziness acute November 25 9:27pm Hyperlipidemia acute November 25, 2024 9:27pm TIA (transient ischemic attack) acut e November 25, 2024 9:27pm Hypertension chronic November 25, 2 025 9:27pm [facility] Work Phone: 1(262) 614-749812-27-2024 History of Present illness Narrative* Genie Bustamante MD - 05/26/2024 2:15 PM EST Images from the original note were not included. . Respiratory Vaughan Note Patient name: Valentina Cabrera PCP: Tre [...] of breath. Patient was actually hospitalized at [facility], hypoxemic, received remdesivir and dexamethasone and [...] chest tightness. Pulmonary function test performed at [facility] shows small airways obstruction with worsening of his airflow postbronchodilator. 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 Genie Bustamante MD Respiratory Vaughan documented [facility] encounterMem[facility]12[facility] NoteHNO ID: [id number] Author: GENIE BUSTAMANTE MD Service: ? Author Type: Physician Type: Progress Notes Filed: 05/26/2024 17:25 Note Text: . Respiratory Vaughan Note Patient name: Valentina Cabrera PCP: Tre [...] of breath. Patient was actually hospitalized at [facility], hypoxemic, received remdesivir and dexamethasone andactually [...] chest tightness. Pulmonary function test performed at [facility] shows small airways obstruction with worsening of his airflow postbronchodilator. 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 Lumbar discogenic [...] Normocephalic, no masses, lesions, (more content not included)...[facility]12-18-2024 Evaluation note* Diagnosis Onset Date Resolution Status Admit Date Nonhealing nonsurgical wound acute May 17, 2024 9:00am Skin tear of forearm without complication acute May 17, 024 9:00am Wound, open, arm, forearm acute May 17, 2024 9:00am [facility] Work Phone: [phone] Telephone encounter Note* Telephone Encounter - Eunice Alvarado MA - 03/09/2024 4:26 PM EDT PFTs dated 03/06/2024 from [facility] scanned into [employer] for review. Eunice Alvarado MA View External Procedures - Pulmonary [ID [id number]] [facility]10-10-2024 Miscellaneous Notes* Telephone Encounter - Eunice Alvarado MA - 03/09/2024 4:26 PM EDT PFTs dated 03/06/2024 from [facility] scanned into Ech[employer] for review. Eunice Alvarado MA View External Procedures - Pulmonary [ID [id number]] documented in this encounterMemorial [facility]09-25-2024 History of Present illness Narrative* Ashley [...] PATIENT PRESENTS WITH AN IMPLANTABLE OR ATTACHED MODERN LANGUAGES PROFESSOR: No RADIOLOGY DEPARTMENT: General X-ray: Exam(s) Completed: Chest X-Ray PERIPHERAL IV DATA: Not applicable SIGNED BY: GABRIELLA Flores) February 23, 2024 1:47 PM documented in this encounterMemorial [facility]09-25-2024 NoteHNO ID: [id number] Author: ASHLEY SAMAYOA RT (R) Service: Radiology [...] PATIENT PRESENTS WITH AN IMPLANTABLE OR ATTACHED MODERN LANGUAGES PROFESSOR: No RADIOLOGY DEPARTMENT: General X-ray: Exam(s) Completed: Chest X-Ray PERIPHERAL IV DATA: Not applicable SIGNED BY: GABRIELLA Flores) February 23, 2024 1:[address] [facility]09-25-2024 History of Present illness Narrative* Becky [...] albuterol. 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 Lumbar discogenic [...] COVID-19 original vaccine, age 12+ yr, monovalent (K Spine-BIONTPhylogy - [place] TOP) 08/29/2021 COVID-19 original vaccine, age 12+ yr, monovalent (K Spine-BIONTECH - PURPLE TOP) 07/26/2020 08/16/2020 02/21/2021 COVID-19 vaccine, age 12+ yr (K Spine-BIONTECH) 02/22/2023 08/20/2023 COVID-19 vaccine, age 12+ yr, bivalent (K Spine-BIONTECH) 03/13/2022 diphtheria tetanus (DT) vaccine, pediatric 11/02/1996 [...] Collected: 04/19/2023 11:03 AM (Final result) Narrative: [facility] [address] [place] [address] Test Date: 2023-04-19 Pat Name: VALENTINA CABRERA Department: Room: 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 IMPRESSION: Spirometry is normal. Small airways obstruction noted. Maximum inspiratory and expiratory pressures are normal. Electronically Signed On 04-19-2023 12:36:10 EST by Genie Bustamante MD ID: [id number] Name: VALENTINA CABRERA Race: White Ht: 67.17 [...] 5.40 FEF50/FIF50 0.38 90-100 FIVC (L) 4.17 QKH16-30 (L/sec) 1.25 0.73 1.92 3.66 65 Time [...] indeterminate fractures, likely representing old rib fractures. Director Sales And Marketing: TASHI Transcribe Date/Time: Aug 19 2022 9:33A [...] necessary. Becky Fierro PA-C documented in this encounterMemorial [facility]09-25-2024 NoteHNO ID: [id number] Author: BECKY FIERRO PA-C Service: ? Author Type: Physician Dandy Tender Type: Progress Notes Filed: 02/23/2024 14:17 Note [...] needed albuterol. Patient was recently seen in [facility] for URI and Covid test was [...] other lower urinary tract symptoms (LUTS) 07/05/2007 alf (current) use of inhaled steroids Lumbar discogenic [...] included)...[facility]08-31-2024 NoteHNO ID: [id number] Author: FER RUELAS PA Service: ? Author Type: Physician Dandy Tender Type: Progress Notes Filed: 01/29/2024 12:49 Note Text: This note was created using IS Decisions. Subjective Valentina Cabrera is a 79 year old male. HPI 79-year-old male presents for cough, congestion x 1 day. Patient states yesterday he started getting cough, sore throat, nasal congestion and chest congestion. He is was recently sick with similar symptoms as well as his grandson. Patient states he has a low-grade fever yesterday. No fever today. He has not taken anything mepr-efz-eqbefwj for symptoms. 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 Subjective Valentina Cabrera is a 79 year old male. HPI 79-year-old male presents for cough, congestion x 1 day. Patient states yesterday he started getting cough, sore throat, nasal congestion and chest congestion. He is was recently sick with similar symptoms as well as his grandson. Patient states he has a low-grade fever yesterday. No fevertoday. He has not taken anything mnxs-nwc-toqzadg for symptoms. 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 CHARLOTTE Henry documented in this encounterMemorial [facility]06-11-2024 History of Present illness Narrative* Genie Bustamante MD - 11/09/2023 10:30 AM EDT Images from the original note were not included. . Respiratory Vaughan Note Patient name: Valentina Cabrera PCP: Jd [...] other lower urinary tract symptoms (LUTS) 07/05/2007 alf (current) use of inhaled steroids Lumbar discogenic [...] clothes after mowing Genie Bustamante MD Respiratory Vaughan documented in this encounterMemorial [facility]06-11-2024 NoteHNO ID: [id number] Author: GENIE BUSTAMANTE MD Service: ? Author Type: Physician Type: Progress Notes Filed: 11/09/2023 11:28 Note Text: . 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 He has some of the Dulera 100 mcg/5 left but that is not what he was taking most recently and is asking if that can be doubled up as he was most recently taking 200 mcg/5. Pleasereview and advise. Deirdre Brand LPN documented in this encounterMemorial [facility]12-04-2023 Miscellaneous Notes* Telephone Encounter - Mayur Kimble APRN.CLARIFIER - 05/03/2023 12:05 PM EST The following approved medication requests have been transmitted electronically. Requested Prescriptions Pending Prescriptions Disp Refills lisinopril (ZESTRIL) 5 mg tablet [Pharmacy Med Name: LISINOPRIL TABS 5MG] 90 tablet 3 Sig: take 1 tablet daily Mayur Kimble APRN.CLARIFIER documented in this encounterMemorial [facility]11-20-2023 History of Present illness Narrative* Tawana Moore RPFT - 04/19/2023 11:19 AM EST PULM FUNCTION SMARTBLOCK: Provider: Becky Fierro PA-C Assisting Tech: Tawana Moore RPFT MIP/MEP: 1 documented in this encounterMemorial [facility]10-10-2023 History of Present illness Narrative* Jd [...] other lower urinary tract symptoms (LUTS) 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 Benign non-nodular prostatic hyperplasia with lower [...] Past Histories independently gathered by the clinical net application support specialist and the remaining scribed note [...] AM. Marilin Schaffer Ma documented in this encounterMemorial [facility]10-02-2023 History of Present illness Narrative* Lulú [...] Discontinued PROCEDURE TYPE: NM Stress: 12.3 mCi Mt97p-Vqncdtb was administered IV for Rest Imaging at 07:12 by Lulú Goncalves. 33.4 mCi Hg50x-Lkhgvtd was administered IV for Stress Imaging at 08:35 by Lulú Goncalves. ADMINISTRATION TIME: PATIENT DISCHARGED TO: Ambulatory patient, left [place] department area. A Diagnostic radioactive procedure has taken place, with no further precautions necessary other than routine body substance precautions. More information regarding radiation safety can be found usingthis link: [email or web address] SIGNATURE: GABRIELLA Martinez) PATIENT NAME: Valentina Cabrera DATE: March 01, 2023 TIME: 09:25 AM PAGER/CONTACT #: documented in this encounterMemorial Health [facility]08-24-2023 History of Present illness Narrative* Becky [...] other lower urinary tract symptoms (LUTS) 07/05/2007 alf (current) use of inhaled steroids Lumbar discogenic [...] necessary. Becky Fierro PA-C documented in this encounterMemorial [facility]07-14-2023 Miscellaneous Notes* Telephone Encounter - Bessy [...] patient. Blanca Bustamante LPN documented in this encounterMemorial Health [facility]07-13-2023 Procedure note* Tawana Moore RPFT - [...] 2022 TIME: 9:14 AM documented in this encounterMemorial [facility]07-13-2023 History of Present illness Narrative* Tawana Moore RPFT - 12/10/2022 9:13 AM EDT PULM FUNCTION SMARTBLOCK: Provider: Becky Fierro PA-C Assisting Tech: Tawana Moore RPFT Exhaled Nitric Oxide: 1 documented in this encounterMemorial Health [facility]07-13-2023 History of Present illness Narrative* Becky Fierro [...] other lower urinary tract symptoms (LUTS) 07/05/2007 alf (current) use of inhaled steroids Lumbar discogenic [...] Ref Range & Units 2 mo ago [place] IgE <0.35 kU/l <0.35 [place] Class Class 0 Class 0 Eddie [...] necessary. Becky Fierro PA-C documented in this encounterMemorial Health [facility]07-10-2023 Miscellaneous Notes* Telephone Encounter - Bessy Barron LPN - 12/07/2022 9:17 AM EDT Spoke with patient by phone. [facility] to deliver Dulera in 3-5 days. He has 3 days of medication available currently. Advised patient to contact the office should he need a temporary supply of Dulera sent locally. Bessy Barron LPN documented in this encounterMemorial Health [facility]04-21-2023 Miscellaneous Notes* Telephone Encounter - Bessy Barron LPN - 09/18/2022 1:15 PM EDT Patient phones requesting refills as follows: Requested Prescriptions Pending Prescriptions Disp Refills albuterol HFA (PROVENTIL HFA, VENTOLIN HFA) 90 mcg/actuation inhaler 3 Each 3 Sig: Inhale 2 Puffs as instructed every 4 hours as needed for wheezing/shortness of breath. Please review and advise. Bessy Barron LPN documented in this encounterMem[facility] History of Present illness Narrative* Jd Solis MD - 09/08/2022 9:20 AM EDT Chief Complaint Patient presents with: 6 Month Exam HPI Valentina Cabrera is a 77 year old male who presents here today for 6 month follow up. He has an advanced directive, just recently updated it with his [employer] Specialist. Will bring updated copy for our [...] other lower urinary tract symptoms (LUTS) 07/05/2007 alf (current) use of inhaled steroids Lumbar discogenic [...] Past Histories independently gathered by the clinical net application support specialist and the remaining scribed note [...] AM. Natalie Youngblood Ma documented in this encounterMem[facility]03-27-2023 Miscellaneous Notes* Telephone Encounter - Kamala [...] advise. 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 . Respiratory [place]an Note Patient name: Valentina Cabrera PCP: Jd [...] Ref Range & Units 2 mo ago [place] IgE <0.35 kU/l <0.35 [place] Class Class 0 Class 0 Eddie [...] other lower urinary tract symptoms (LUTS) 07/05/2007 alf (current) use of inhaled steroids Lumbar discogenic [...] sooner with problems Genie Bustamante MD Respiratory [place] documented in this encounterMemorial [facility]12-14-2022 Instructions* Patient Instructions* Betty Barraza APRN.CNP [...] or sooner as needed. documented in this encounterMemorial [facility]12-14-2022 History of Present illness Narrative* Betty [...] seen several times in family medicine and [facility] for cold/URI symptoms. Was seen [...] other lower urinary tract symptoms (LUTS) 07/05/2007 alf (current) use of inhaled steroids Lumbar discogenic [...] R05.1 - May use Tessalon Perles or [id number] cold and cough medication as needed for [...] APRN.LEAH This note was partially generated using [employer] recognition system. Note was reviewed for accuracy. There may be minor misspellings or grammar miscues with [employer]Wall voice recognition. documented in this encounterCleveland [id number] Instructions* Patient Instructions* Moi Plummer APRN.CLARIFIER - 05/10/2022 10:23 AM EST How to [...] or concerning to you. 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 This note was generated using SnoopWall software. It may contain errors in wording, punctuation, or spelling. 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 Camila Comer APRN.LEAH documented in this encounterMemorial [facility]12-01-2022 Miscellaneous Notes* Telephone Encounter - Bere [...] supportive care at home, may use any [id number] coldand cough medications as needed for symptom management. As discussed during office visit if congestion and sinus drainage is getting worse I can send in anantibiotic. Please let me know how he is doing. Thank you. 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 documented in this encounterMemorial [facility]10-20-2022 Miscellaneous Notes* Telephone Encounter - Jd [...] advise. Bere Goodman LPN documented in this encounterMemorial [facility]10-13-2022 Miscellaneous Notes* Telephone Encounter - Bessy Barron LPN - 03/12/2022 3:12 PM EDT See separate phone encounter. 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 Natalie Youngblood Ma documented in this encounterMemorial [facility]10-12-2022 Procedure note* MAICOL Velazco - 03/11/2022 [...] 2022 TIME: 9:13 AM documented in this encounterMemorial [facility]10-12-2022 History of Present illness Narrative* MAICOL Velazco - 03/11/2022 9:11 AM EDT PULM FUNCTION SMARTBLOCK: Provider: Genie Bustamante MD Assisting Tech: MAICOL Velazco Spirometry: 1 LV - Box: 1 Exhaled Nitric Oxide: 1 documented in this encounterMemorial Health [facility]09-30-2022 History of Present illness Narrative* Genie Bustamante MD - 02/27/2022 1:30 PM EDT Images from the original note were not included. . Respiratory Vaughan Note Patient name: Valentina Cabrera PCP: Jd [...] 1.00 - 4.00 k/uL 6.15 High 2.61 [place]% % 5.0 7.0 Abs [place] <0.87 k/uL 0.70 0.51 Eosin% % 1.0 0.5 Abs Eosin <0.46 k/uL 0.14 0.04 Baso% % 0.0 0.3 Abs Baso <0.11 k/uL 0.00 <0.03 [place]% % 1.0 [place] % % 2.0 Myelo % % 1.0 [...] other lower urinary tract symptoms (LUTS) 07/05/2007 alf (current) use of inhaled steroids Lumbar discogenic [...] post COVID syndrome Genie Bustamante MD Respiratory [place]an documented in this encounterMemorial [facility]09-28-2022 Miscellaneous Notes* Telephone Encounter - Bere [...] you. Betty Barraza APRN.LEAH documented in this encounterMemorial [facility]09-26-2022 History of Present illness Narrative* Ashley [...] 23, 2022 12:00 PM documented in this encounterMemorial [facility]09-26-2022 Instructions* Patient Instructions* Betty Barraza APRN.CNP - 02/23/2022 11:46 AM EDT Get lab work & chest Xray done today Start doxycycline twice a day, take with food Continue to take all medication as prescribed Red flag symptoms, go to ER Follow up pending test results or sooner as needed documented in this encounterMemorial Health [facility]09-26-2022 History of Present illness Narrative* Betty [...] care at home. Patient was [facility] 02/[facility]/22 repeat COVID and flu [...] other lower urinary tract symptoms (LUTS) 07/05/2007 alf (current) use of inhaled steroids Lumbar discogenic [...] APRN.CNP This note was partially generated using S[employer]Wall voice recognition system. Note was reviewed for accuracy. There may be minor misspellings or grammar miscues with S[employer]Wall voice recognition. documented in this encounterMemorial Health [facility]09-19-2022 Miscellaneous Notes* Telephone Encounter - Martha Mccormick - 02/16/2022 9:39 AM EDT [place] [employer] 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 Camila Comer APRN.CNP documented in this encounterMemorial [facility]09-09-2022 Instructions* Patient Instructions* Betty Barraza APRN.CNP - 02/06/2022 9:27 AM EDT 1.) Flu/COVID test should be back by tomorrow. 2.) May use ppop-[id number] cold and cough medications as needed for [...] 6.) Follow-up as needed. 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 Note was reviewed for accuracy. There may be minor misspellings or grammar miscues with [employer] voice recognition. documented in this encounterMemorial Health [facility]07-06-2022 History of Present illness Narrative* Berkley [...] which included preparing to see the patient, [id number] patient care, completing clinical documentation, and counseling and educating the patient/family/caregiver, ordering medications/labs and communicating with other healthcare providers. Berkley Roque APRN.CNP December 03, 2021 10:30 AM This note was partially generated using S[employer]Wall voice recognition system. Note was reviewed for accuracy. There may be minor misspellings or grammar miscues with Dragon voice recognition. documented in this encounterMemorial [facility]04-06-2022 History of Present illness Narrative* Jd [...] other lower urinary tract symptoms (LUTS) 07/05/2007 alf (current) use of inhaled steroids Lumbar discogenic [...] Past Histories independently gathered by the clinical net application support specialist and the remaining scribed note accurately describes my personal service to the patient. Medical Decision Making: Problems: Moderate: 2+ stable chronic illnesses Data: Unique test(s) ordered: 3+ Risk: Moderate: Drug management Medical Decision Making Level: 4 - Moderate dJ Solis MD The documentation for this note was completed by Marilin Schaffer Ma acting as scribe for Jd Solis MD. September 03, 2021 12:51 PM. Marilin Schaffer Ma documented in this encounterMemorial [facility]03-30-2022 Instructions* Patient Instructions* Berkley Roque APRN.CNP [...] - Call the National Suicide Hotline at 8-578-ECDTBLV ( ) or 5-701-018-TALK (6939) - Text 4HOPE to 392299 Medication Update: 1. Nortriptyline 50 mg take 1 capsule twice daily with food and peanut butter Next appointment: --Schedule in 3 months or sooner if needed -- You may call the department appointment line at [phone] to schedule your appointment. -- Please call my nurse Kelly at [phone] or send me a message in [employer] with any questions or concerns between appointments. documented in this encounterMemorial [facility]03-30-2022 History of Present illness Narrative* Berkley [...] which included preparing to see the patient, [id number] patient care, completing clinical documentation, and counseling and educating the patient/family/caregiver, ordering medications/labwork. 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 Neoplasm of uncertain behavior of skin 9 06/12/2014 Shortness of breath 09/01/2006 06/12/2014 Abdominal pain, generalized 03/19/200605/31 documented as of this encounter (statuses as of 08/27/2021) [facility] History of Past illness Narrative* Problem Noted Date Resolved Date Shortness of breath 02/12/2016 06/29/2016 Achilles tendinitis 10/04/2012 04/17/2015 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 Neoplasm of uncertain behavior of skin 9 06/12/2014 Shortness of breath 09/01/2006 06/12/2014 Abdominal pain, generalized 03/19/200605/31 documented as of this encounter (statuses as of 09/04/2021) [facility] History of Past illness Narrative* Problem Noted Date Resolved Date Shortness of breath 02/12/2016 06/29/2016 Achilles tendinitis 10/04/2012 04/17/2015 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 Neoplasm of uncertain behavior of skin 9 06/12/2014 Shortness of breath 09/01/2006 06/12/2014 Abdominal pain, generalized 03/19/200605/31 documented as of this encounter (statuses as of 12/03/2021) [facility] of Past illness Narrative* Problem Noted Date Resolved Date Shortness of breath 02/12/2016 06/29/2016 Achilles tendinitis 10/04/2012 04/17/2015 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 Neoplasm of uncertain behavior of skin 9 06/12/2014 Shortness of breath 09/01/2006 06/12/2014 Abdominal pain, generalized 03/19/200605/31 documented as of this encounter (statuses as of 02/06/2022) [facility] of Past illness Narrative* Problem Noted Date Resolved Date Shortness of breath 02/12/2016 06/29/2016 Achilles tendinitis 10/04/2012 04/17/2015 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 Neoplasm of uncertain behavior of skin 9 06/12/2014 Shortness of breath 09/01/2006 06/12/2014 Abdominal pain, generalized 03/19/200605/31 documented as of this encounter (statuses as of 02/15/2022) [facility] of Past illness Narrative* Problem Noted Date Resolved Date Shortness of breath 02/12/2016 06/29/2016 Achilles tendinitis 10/04/2012 04/17/2015 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 Neoplasm of uncertain behavior of skin 9 06/12/2014 Shortness of breath 09/01/2006 06/12/2014 Abdominal pain, generalized 03/19/200605/31 documented as of this encounter (statuses as of 02/16/2022) [facility] of Past illness Narrative* Problem Noted Date Resolved Date Shortness of breath 02/12/2016 06/29/2016 Achilles tendinitis 10/04/2012 04/17/2015 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 Neoplasm of uncertain behavior of skin 9 06/12/2014 Shortness of breath 09/01/2006 06/12/2014 Abdominal pain, generalized 03/19/200605/31 documented as of this encounter (statuses as of 02/23/2022) [facility] of Past illness Narrative* Problem Noted Date Resolved Date Shortness of breath 02/12/2016 06/29/2016 Achilles tendinitis 10/04/2012 04/17/2015 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 Neoplasm of uncertain behavior of skin 9 06/12/2014 Shortness of breath 09/01/2006 06/12/2014 Abdominal pain, generalized 03/19/200605/31 documented as of this encounter (statuses as of 02/25/2022) [facility] of [facility] illness Narrative* Problem Noted Date Resolved Date Shortness of breath 02/12/2016 06/29/2016 Achilles tendinitis 10/04/2012 04/17/2015 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 Neoplasm of uncertain behavior of skin 9 06/12/2014 Shortness of breath 09/01/2006 06/12/2014 Abdominal pain, generalized 03/19/200605/31 documented as of this encounter (statuses as of 02/27/2022) [facility] of [facility] illness Narrative* Problem Noted Date Resolved Date Shortness of breath 02/12/2016 06/29/2016 Achilles tendinitis 10/04/2012 04/17/2015 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 Neoplasm of uncertain behavior of skin 9 06/12/2014 Shortness of breath 09/01/2006 06/12/2014 Abdominal pain, generalized 03/19/200605/31 documented as of this encounter (statuses as of 03/11/2022) [facility] illness Narrative* Problem Noted Date Resolved Date Shortness of breath 02/12/2016 06/29/2016 Achilles tendinitis 10/04/2012 04/17/2015 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 Neoplasm of uncertain behavior of skin 9 06/12/2014 Shortness of breath 09/01/2006 06/12/2014 Abdominal pain, generalized 03/19/200605/31 documented as of this encounter (statuses as of 03/12/2022) [facility] Narrative* Problem Noted Date Resolved Date Shortness of breath 02/12/2016 06/29/2016 Achilles tendinitis 10/04/2012 04/17/2015 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 Neoplasm of uncertain behavior of skin 9 06/12/2014 Shortness of breath 09/01/2006 06/12/2014 Abdominal pain, generalized 03/19/200605/31 documented as of this encounter (statuses as of 03/12/2022) [facility] Narrative* Problem Noted Date Resolved Date Shortness of breath 02/12/2016 06/29/2016 Achilles tendinitis 10/04/2012 04/17/2015 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 Neoplasm of uncertain behavior of skin 9 06/12/2014 Shortness of breath 09/01/2006 06/12/2014 Abdominal pain, generalized 03/19/200605/31 documented as of this encounter (statuses as of 03/16/2022) [facility] Narrative* Problem Noted Date Resolved Date Shortness of breath 02/12/2016 06/29/2016 Achilles tendinitis 10/04/2012 04/17/2015 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 Neoplasm of uncertain behavior of skin 9 06/12/2014 Shortness of breath 09/01/2006 06/12/2014 Abdominal pain, generalized 03/19/200605/31 documented as of this encounter (statuses as of 03/17/2022) [facility] Narrative* Problem Noted Date Resolved Date Shortness of breath 02/12/2016 06/29/2016 Achilles tendinitis 10/04/2012 04/17/2015 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 Neoplasm of uncertain behavior of skin 9 06/12/2014 Shortness of breath 09/01/2006 06/12/2014 Abdominal pain, generalized 03/19/200605/31 documented as of this encounter (statuses as of 03/19/2022) [facility] Narrative* Problem Noted Date Resolved Date Shortness of breath 02/12/2016 06/29/2016 Achilles tendinitis 10/04/2012 04/17/2015 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 Neoplasm of uncertain behavior of skin 200 9 06/12/2014 Shortness of breath 09/01/2006 06/12/2014 Abdominal pain, generalized 03/19/200605/31 documented as of this encounter (statuses as of 03/20/2022) [facility] Narrative* Problem Noted Date Resolved Date Shortness of breath 02/12/2016 06/29/2016 Achilles tendinitis 10/04/2012 04/17/2015 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 Neoplasm of uncertain behavior of skin 9 06/12/2014 Shortness of breath 09/01/2006 06/12/2014 Abdominal pain, generalized 03/19/200605/31 documented as of this encounter (statuses as of 04/01/2022) [facility] Narrative* Problem Noted Date Resolved Date Shortness of breath 02/12/2016 06/29/2016 Achilles tendinitis 10/04/2012 04/17/2015 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 Neoplasm of uncertain behavior of skin 9 06/12/2014 Shortness of breath 09/01/2006 06/12/2014 Abdominal pain, generalized 03/19/200605/31 documented as of this encounter (statuses as of 04/10/2022) [facility] Narrative* Problem Noted Date Resolved Date Shortness of breath 02/12/2016 06/29/2016 Achilles tendinitis 10/04/2012 04/17/2015 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 Neoplasm of uncertain behavior of skin 200 9 06/12/2014 Shortness of breath 09/01/2006 06/12/2014 Abdominal pain, generalized 03/19/200605/31 documented as of this encounter (statuses as of 04/30/2022) [facility] Narrative* Problem Noted Date Resolved Date Shortness of breath 02/12/2016 06/29/2016 Achilles tendinitis 10/04/2012 04/17/2015 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 Neoplasm of uncertain behavior of skin 9 06/12/2014 Shortness of breath 09/01/2006 06/12/2014 Abdominal pain, generalized 03/19/200605/31 documented as of this encounter (statuses as of 05/03/2022) [facility] Narrative* Problem Noted Date Resolved Date Shortness of breath 02/12/2016 06/29/2016 Achilles tendinitis 10/04/2012 04/17/2015 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 Neoplasm of uncertain behavior of skin 9 06/12/2014 Shortness of breath 09/01/2006 06/12/2014 Abdominal pain, generalized 03/19/200605/31 documented as of this encounter (statuses as of 05/10/2022) [facility] Narrative* Problem Noted Date Resolved Date Shortness of breath 02/12/2016 06/29/2016 Achilles tendinitis 10/04/2012 04/17/2015 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 Neoplasm of uncertain behavior of skin 9 06/12/2014 Shortness of breath 09/01/2006 06/12/2014 Abdominal pain, generalized 03/19/200605/31 documented as of this encounter (statuses as of 05/13/2022) [facility] Narrative* Problem Noted Date Resolved Date Shortness of breath 02/12/2016 06/29/2016 Achilles tendinitis 10/04/2012 04/17/2015 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 Neoplasm of uncertain behavior of skin 9 06/12/2014 Shortness of breath 09/01/2006 06/12/2014 Abdominal pain, generalized 03/19/200605/31 documented as of this encounter (statuses as of 07/09/2022) [facility] Narrative* Problem Noted Date Resolved Date Shortness of breath 02/12/2016 06/29/2016 Achilles tendinitis 10/04/2012 04/17/2015 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 Neoplasm of uncertain behavior of skin 9 06/12/2014 Shortness of breath 09/01/2006 06/12/2014 Abdominal pain, generalized 03/19/200605/31 documented as of this encounter (statuses as of 08/19/2022) [facility] of [facility] Narrative* Problem Noted Date Resolved Date Shortness of breath 02/12/2016 06/29/2016 Achilles tendinitis 10/04/2012 04/17/2015 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 Neoplasm of uncertain behavior of skin 9 06/12/2014 Shortness of breath 09/01/2006 06/12/2014 Abdominal pain, generalized 03/19/200605/31 documented as of this encounter (statuses as of 08/24/2022) [facility] History of Past illness Narrative* Problem Noted Date Resolved Date Shortness of breath 02/12/2016 06/29/2016 Achilles tendinitis 10/04/2012 04/17/2015 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 Neoplasm of uncertain behavior of skin 200 9 06/12/2014 Shortness of breath 09/01/2006 06/12/2014 Abdominal pain, generalized 03/19/200605/31 documented as of this encounter (statuses as of 09/08/2022) [facility] History of Past illness Narrative* Problem Noted Date Resolved Date Shortness of breath 02/12/2016 06/29/2016 Achilles tendinitis 10/04/2012 04/17/2015 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 Neoplasm of uncertain behavior of skin 9 06/12/2014 Shortness of breath 09/01/2006 06/12/2014 Abdominal pain, generalized 03/19/200605/31 documented as of this encounter (statuses as of 09/18/2022) [facility] History of Past illness Narrative* Problem Noted Date Diagnosed Date Resolved Date Shortness of breath 02/12/2016 06/29/19 17 Achilles tendinitis 10/04/2012 04/17/20 15 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 03/25/20 09 06/12/2014 Neoplasm of uncertain behavior of skin 01/23/2009 06/12/2014 Shortness of breath 09/01/2006 06/12/19 15 Abdominal pain, generalized 03/19/2006 06/12/2014 documented as of this encounter (statuses as of 12/07/2022) [facility] History of Past illness Narrative* Problem Noted Date Diagnosed Date Resolved Date Shortness of breath 02/12/2016 06/29/19 17 Achilles tendinitis 10/04/2012 04/17/20 15 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 03/25/2006/12/2014 Neoplasm of uncertain behavior of skin 01/23/2009 06/12/2014 Shortness of breath 09/01/2006 06/12/19 15 Abdominal pain, generalized 03/19/2006 06/12/2014 documented as of this encounter (statuses as of 12/10/2022) [facility] History of Past illness Narrative* Problem Noted Date Diagnosed Date Resolved Date Shortness of breath 02/12/2016 06/29/19 17 Achilles tendinitis 10/04/2012 04/17/20 15 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 03/25/20 09 06/12/2014 Neoplasm of uncertain behavior of skin 01/23/2009 06/12/2014 Shortness of breath 09/01/2006 06/12/19 15 Abdominal pain, generalized 03/19/2006 06/12/2014 documented as of this encounter (statuses as of 12/10/2022) [facility] History of Past illness Narrative* Problem Noted Date Diagnosed Date Resolved Date Shortness of breath 02/12/2016 06/29/19 17 Achilles tendinitis 10/04/2012 04/17/20 15 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 03/25/20 09 06/12/2014 Neoplasm of uncertain behavior of skin 01/23/2009 06/12/2014 Shortness of breath 09/01/2006 06/12/19 15 Abdominal pain, generalized 03/19/2006 06/12/2014 documented as of this encounter (statuses as of 12/11/2022) [facility] History of Past illness Narrative* Problem Noted Date Diagnosed Date Resolved Date Shortness of breath 02/12/2016 06/29/19 17 Achilles tendinitis 10/04/2012 04/17/20 15 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 03/25/2006/12/2014 Neoplasm of uncertain behavior of skin 01/23/2009 06/12/2014 Shortness of breath 09/01/2006 06/12/19 15 Abdominal pain, generalized 03/19/2006 06/12/2014 documented as of this encounter (statuses as of 12/28/2022) [facility] History of Past illness Narrative* Problem Noted Date Diagnosed Date Resolved Date Shortness of breath 02/12/2016 06/29/19 17 Achilles tendinitis 10/04/2012 04/17/20 15 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 03/25/2006/12/2014 Neoplasm of uncertain behavior of skin 01/23/2009 06/12/2014 Shortness of breath 09/01/2006 06/12/19 15 Abdominal pain, generalized 03/19/2006 06/12/2014 documented as of this encounter (statuses as of 01/21/2023) [facility] History of Past illness Narrative* Problem Noted Date Diagnosed Date Resolved Date Shortness of breath 02/12/2016 06/29/19 17 Achilles tendinitis 10/04/2012 04/17/20 15 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 03/25/2006/12/2014 Neoplasm of uncertain behavior of skin 01/23/2009 06/12/2014 Shortness of breath 09/01/2006 06/12/19 15 Abdominal pain, generalized 03/19/2006 06/12/2014 documented as of this encounter (statuses as of 03/09/2023) [facility] History of Past illness Narrative* Problem Noted Date Diagnosed Date Resolved Date Shortness of breath 02/12/2016 06/29/19 17 Achilles tendinitis 10/04/2012 04/17/20 15 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 03/25/20 09 06/12/2014 Neoplasm of uncertain behavior of skin 01/23/2009 06/12/2014 Shortness of breath 09/01/2006 06/12/19 15 Abdominal pain, generalized 03/19/2006 06/12/2014 documented as of this encounter (statuses as of 04/02/2023) [facility] History of Past illness Narrative* Problem Noted Date Diagnosed Date Resolved Date Shortness of breath 02/12/2016 06/29/19 17 Achilles tendinitis 10/04/2012 04/17/20 15 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 03/25/20 09 06/12/2014 Neoplasm of uncertain behavior of skin 01/23/2009 06/12/2014 Shortness of breath 09/01/2006 06/12/19 15 Abdominal pain, generalized 03/19/2006 06/12/2014 documented as of this encounter (statuses as of 04/19/2023) [facility] History of Past illness Narrative* Problem Noted Date Diagnosed Date Resolved Date Shortness of breath 02/12/2016 06/29/19 17 Achilles tendinitis 10/04/2012 04/17/20 15 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 03/25/20 09 06/12/2014 Neoplasm of uncertain behavior of skin 01/23/2009 06/12/2014 Shortness of breath 09/01/2006 06/12/19 15 Abdominal pain, generalized 03/19/2006 06/12/2014 documented as of this encounter (statuses as of 05/03/2023) [facility] History of Past illness Narrative* Problem Noted Date Diagnosed Date Resolved Date Shortness of breath 02/12/2016 06/29/19 17 Achilles tendinitis 10/04/2012 04/17/20 15 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 03/25/20 09 06/12/2014 Neoplasm of uncertain behavior of skin 01/23/2009 06/12/2014 Shortness of breath 09/01/2006 06/12/19 15 Abdominal pain, generalized 03/19/2006 06/12/2014 documented as of this encounter (statuses as of 07/02/2023) [facility] note* Diagnosis Recurrent major depressive disorder, in full remission (HCC)- Primary [facility] this encounter [facility] Diagnosis Essential hypertension, benign- Primary Encounter for hepatitis C screening test for low risk patient Benign non-nodular prostatic hyperplasia with lower urinary tract symptoms Recurrent major depressive disorder, in full remission (HCC) documented in this encounter [facility] Diagnosis Recurrent major depressive disorder, in full remission (HCC)- Primary documented [facility] this encounter [facility] Diagnosis Viral illness- Primary Unspecified viral infection, in conditions classified elsewhere and of unspecified site Acute cough documented [facility] this encounter [facility]* Diagnosis At increased risk of exposure to COVID-19 virus- Primary [facility] this encounter [facility]* Diagnosis SOB (shortness of breath)- Primary Shortness of breath Bronchitis Bronchitis, not specified as acute or chronic Fatigue, unspecified type documented in this encounter [facility]* Diagnosis SOB (shortness of breath)- Primary Shortness of breath 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 History of environmental allergies Other allergy, other than to medicinal agents History of COVID-19 documented [facility] this encounter [facility] Diagnosis SOB (shortness of breath) Shortness of breath documented in this encounter [facility] Diagnosis SOB (shortness of breath) Shortness of breath documented in this encounter [facility] Diagnosis Essential hypertension, benign- Primary Recurrent major depressive disorder, in full remission (HCC) Benign non-nodular prostatic hyperplasia with lower urinary tract symptoms SOB (shortness of breath) Shortness of breath Fatigue, unspecified type Thrombocyte disorder (HCC) Qualitative platelet defects documented [facility] this encounter [facility] Diagnosis Cough variant asthma- Primary SOB (shortness of breath) Shortness of breath History of environmental allergies Other allergy, other than to medicinal agents History of COVID-19 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 documented [facility] this encounter [facility] Diagnosis URI, acute- Primary Acute upper respiratory infections of unspecified site Rhinosinusitis Unspecified sinusitis (chronic) [facility] Diagnosis Viral illness- Primary Unspecified viral infection, in conditions classified elsewhere and of unspecified site Acute cough documented in this encounter [facility] note* Diagnosis SOB (shortness of breath)- Primary Shortness of breath Acute cough Moderate persistent asthma without complication Unspecified asthma [facility] Diagnosis Cough variant asthma- Primary documented [facility] this encounter [facility] Diagnosis Rib pain on right side- Primary Chest pain, unspecified documented [facility] this encounter [facility] Diagnosis SOB (shortness of breath) Shortness of breath [facility] Diagnosis Essential hypertension, benign- Primary Recurrent major depressive disorder, in full remission (HCC) Benign non-nodular prostatic hyperplasia with lower urinary tract symptoms Moderate persistent asthma without complication Unspecified asthma Musculoskeletal pain Mylagia and myositis, unspecified Thrombocyte disorder (HCC) Qualitative platelet defects Elevated glucose Other abnormal glucose documented [facility] this encounter [facility] Diagnosis Cough variant asthma documented [facility] this encounter [facility] Diagnosis Cough variant asthma- Primary SOB (shortness of breath) Shortness of breath History of environmental allergies Other allergy, other than to medicinal agents documented [facility] this encounter [facility] Diagnosis Cough variant asthma- Primary Gastroesophageal reflux disease, unspecified whether esophagitis present History of environmental allergies Other allergy, other than to medicinal agents History of COVID-19 documented [facility] this encounter [facility]* Diagnosis Essential hypertension, benign- Primary Moderate persistent asthma without complication Unspecified asthma Benign non-nodular prostatic hyperplasia with lower urinary tract symptoms Recurrent major depressive disorder, in full remission (HCC) Anxiety Anxiety state, unspecified Low platelet count (HCC) documented in this encounter [facility] noteNo assessment information availableWKindred [facility] Work Phone: Evaluation note* Diagnosis PERSON (dyspnea on exertion) Other dyspnea and respiratory abnormality Essential hypertension, benign [facility]* Diagnosis SOB (shortness of breath) Shortness of breath Cough variant asthma [facility] Diagnosis SOB (shortness of breath) Shortness of breath Cough variant asthma [facility]* Diagnosis Hypertension, essential Unspecified essential hypertension documented in this encounter [facility] note* Diagnosis Onset Date Resolution Status SOB (shortness of breath) [place] Hypertension chronic [facility] Work Phone: [facility]* Diagnosis Cough variant asthma documented in this encounter [facility] note* Diagnosis Mild persistent asthma without complication- Primary Unspecified asthma Seasonal allergies Allergic rhinitis, cause unspecified [facility]* Diagnosis URI, acute- Primary Acute upper respiratory infections of unspecified site documented in this encounter [facility] note* Diagnosis Subacute cough- Primary Cough History of COVID-19 Mild persistent asthma without complication Unspecified asthma Seasonal allergies Allergic rhinitis, cause unspecified Gastroesophageal reflux disease, unspecified whether esophagitis present Tachycardia Tachycardia, unspecified documented in this encounter [facility] note* Diagnosis SOB (shortness of breath) Shortness of breath documented in this encounter [facility] note* Diagnosis Acute cough documented in this encounter [facility] note* Diagnosis Acute cough documented in this encounter [facility] note* Diagnosis Small airways disease- Primary Other diseases of lung, not elsewhere classified History of COVID-19 Diaphragm, eventration Congenital anomaly of diaphragm documented [facility] this encounter [facility] Author Megan Garcia [facility] Note Date/Time November 25, 2024 9:50 pm [facility] Medical Records Department [address] [place] [address] H&P Exam - Hospitalist 11/25/243 MR#: [id number] Acct: [id number] Name: VALENTINA CABRERA Rep #:[id number] : [...] allergic rhinitis, GERD who presents to the [facility] ED on 11/17/2024 with history of vision [...] aspirin therapy 325 mg p.o. x 1. [facility] Medical History Former tobacco use Obesity CKD [...] extremities, no focal deficits, strength preserved,finger-nose and jdbu-lo-unat appropriate, sensation intact, negative Babinski, feels of [...] 41.5 L, Lymph % (Auto) 52.1 H, [place] % (Auto) 5.2, Eos % (Auto) 0.4, [...] at 8:31 pm on 11/25/24. Reading Location: [id number] Chest X-Ray 11/25/24 20:13 IMPRESSION: No significant change since last exam. Reading Location: [facility] Head/Neck CTA 11/25/24 20:14 IMPRESSION: No large vessel occlusion, aneurysm or AVM. Reading Location: [id number] Assessment & Plan Assessment/Plan (1) TIA (transient ischemic attack): PLAN: Plan The patient is an 79 y/o M w/ PMHx: Obesity, Former tobacco use, CKD stage II per GFR trending, BPH with obstructive pathology, HTN, HLD, Anxiety and Depression, Chronic lumbar back pain, Asthma with allergic rhinitis, GERD who presents to the [facility] ED on 11/17/2024 with history of vision [...] Code status. Charges/Coding Visit Charges Inpatient E&M: 28974 Init Hosp L3 11/25/240 <Electronically signed by Megan Garcia MD> Cosigner Signature (if applicable): CC: Dr. Megan Garcia MD; Dr. Tre García MD~ Signed [facility] Work Phone: Hospital Discharge instructionsAdditional Instructions Follow-up with primary care physician. You need to have your ultrasound performed to assess for DVT. Return back to ED if symptoms change or worsen. Recommend elevation to help with swelling.[facility] Work Phone: Reason for referral (narrative)* Outpatient Procedure (Routine) - Authorized Specialty Diagnoses / Procedures Referred By Contac t Referred To Contact [facility] Diagnoses SOB (shortness of breath) Procedures LUNG VOLUMES Genie Bustamante MD [address] [place] [address] Respiratory [place] [address] [place] [address] Referral ID Status Reason Start Date Expiration Date Visits Requested Visits Authorized [id number] Authorized Auto-Generat ed Referral 02/27/2022 03/29/2023 1 1 * Outpatient Procedure (Routine) - Authorized Specialty Diagnoses / Procedures Referred By Contac t Referred To Contact [facility] Diagnoses SOB (shortness of breath) Procedures NITRIC OXIDE, EXHALED NITRIC OXIDE GAS DETERMINATION Genie Bustamante MD [address] [place] [address] Respiratory [place] [phone] Referral ID Status Reason Start Date Expiration Date Visits Requested Visits Authorized [id number] Authorized Auto-Generat ed Referral 02/27/2022 03/29/2023 1 1 * Outpatient Procedure (Routine) - Authorized Specialty Diagnoses / Procedures Referred By Contac t Referred To Contact [facility] Diagnoses SOB (shortness of breath) Procedures SPIROMETRY WITH DILATOR IF OBSTRUCTED BRNCDILAT RSPSE SPMTRY PRE&POST-BRNCDILAT ADMN Genie Bustamante MD [address] [place] [address] [address] Referral ID Status Reason Start Date Expiration Date Visits Requested Visits Authorized [id number] Authorized Auto-Generat ed Referral 02/27/2022 03/29/2023 1 1 [facility] for referral (narrative)* Diagnostic Procedure Only (Urgent) - Closed Specialty Diagnoses / Procedures Referred By Contac t Referred To Contact XR IMAGING Diagnoses Rib pain on right side Procedures XR RIBS/CHEST 3V AP RIB/OBLS/CXR RIGHT RADEX RIBS UNI W/POSTEROANT CH MINIMUM 3 VIEWS Mich Mathis APRN.CLARIFIER [address] [place] [address] Xr Imaging Referral ID Status Reason Start Date Expiration Date V isits Requested Visits Authorized [id number] Closed Auto-Generate d Referral 08/19/2022 09/18/2023 1 1 [facility] for referral (narrative)* Outpatient Procedure (Routine) - Closed Specialty Diagnoses / Procedures [facility] Diagnoses Cough variant asthma Procedures NITRIC OXIDE, EXHALED NITRIC OXIDE GAS DETERMINATION Becky Fierro PA-C [address] [place] [address] Respiratory [place] [address] [place] [address] Referral ID Status Reason Start Date Expiration Date V isits Requested Visits Authorized [id number] Closed Auto-Generate d Referral 12/10/2022 01/09/2024 1 1 * Outpatient Procedure (Routine) - Authorized Specialty Diagnoses / Procedures [facility] Diagnoses SOB (shortness of breath) Procedures ECHO ECHO TTHRC R-T 2D W/WOM-MODE COMPL SPEC&COLR D Becky Fierro PA-C [address] [place] [address] [facility] Vascular [place] [address] [place] [address] Referral ID Status Reason Start Date Expiration Date Visits Requested Visits Authorized [id number] Authorized Auto-Generat ed Referral 12/10/2022 12/10/2023 1 1 [facility] for referral (narrative)* Diagnostic Procedure Only (Routine) - Closed Specialty Diagnoses / Procedures [facility] To Contact MOLECULAR & FUNCTIONAL IMAGING Diagnoses PERSON (dyspnea on exertion) Essential hypertension, benign Procedures NM CARDIAC PERF STRESS/EXERCISE MYOCARDIAL SPECT MULTIPLE STUDIES Jd Solis MD [address] [place] [address] Molecular & Functional Imaging [address] [place] [id number] Referral ID Status Reason Start Date Expiration Date V isits Requested Visits Authorized [id number] Closed Auto-Generate d Referral 01/04/2023 02/03/2024 1 1 [facility] (narrative)No reason for referral information availableWKindred Hospital [facility] Work Phone: Reason for visit Narrative* Diagnostic Procedure Only (Urgent) - Closed Specialty Diagnoses / Procedures Referred By Contac t Referred To Contact XR IMAGING Diagnoses Rib pain on right side Procedures XR RIBS/CHEST 3V AP RIB/OBLS/CXR RIGHT RADEX RIBS UNI W/POSTEROANT CH MINIMUM 3 VIEWS Mich Mathis APRN.CLARIFIER [address] [facility] [place] [address] [place] [address] Referral ID Status Reason Start Date Expiration Date V isits Requested Visits Authorized [id number] Closed Auto-Generate d Referral 08/19/2022 09/18/2023 1 1 [facility] Summary Purpose Family History Relationship Condition Age at Onset Recorded Date/T mi mother Depression Unknown Cerebrovascular accident (CVA) Unknown Anxiety Unknown Hypertension Unknown father Malignant neoplasm of pancreas Unknown Advance Directives Documents on File Type Date Recorded Patient 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 Expl 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 Advance Directive(s) 06/18/2020 7:30 AM Advance Directive(s) 06/18/2020 7:26 AM Advance Directive(s) 06/12/2020 9:19 AM Advance Directive(s) 02/07/2015 9:07 AM Documents on File Type Date Recorded Patient 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 Expl anation Advance Directive(s) 06/18/2020 7:26 AM Advance Directive(s) 02/07/2015 9:07 AM Documents on File Type Date Recorded Patient 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 Expl anation Advance Directive(s) 06/18/2020 7:26 AM Advance Directive(s) 02/07/2015 9:07 AM Documents on File Type Date Recorded Patient 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 Expl anation Advance Directive(s) 10/20/2022 8:34 AM Advance Directive(s) 06/18/2020 7:26 AM Documents on File Type Date Recorded Patient 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 Expl anation Advance Directive(s) 10/20/2022 8:34 AM Advance Directive(s) 06/18/2020 7:26 AM Advance Directive Response Recorded Date/ Time Advance Directives Yes March 11:36pm Living Will No June 14 1:11pm Power of Dot Compliance Specialist No June 14, 2021 1:11pm Advance Directive Response Recorded Date/ Time Advance Directives Yes March 10:36pm Living Will No June 14 12:11pm Power of Dot Compliance Specialist No June 14, 2021 12:11pm Advance Directive Response Recorded Date/ Time Advance Directives Yes March 11:36pm Living Will No August 15, 2023 11:59am Power of Dot Compliance Specialist No August 14 11:59am Advance Directive Response Recorded Date/ Time Advance Directives on File No Decem 2023 3:04pm Living Will Yes May 29 024 3:36pm Do you have a Healthcare Power of Dot Compliance Specialist? Yes May 29, 2024 3:36pm Advance Directives Yes March 11:36pm Advance Directive Response Recorded Date/ Time Advance Directives Yes March 11:36pm Advance Directive Response Recorded Date/ Time Do you have a Healthcare Power of Dot Compliance Specialist? Yes November 25, 2024 8:20pm Advance Directives Yes March 11:36pm Advance Directive Response Recorded Date/ Time Do you have a Healthcare Power of Dot Compliance Specialist? Yes November 25, 2024 10:51pm Advance Directives Yes March 11:36pm Advance Directive Response Recorded Date/ Time Do you have a Healthcare Power of Dot Compliance Specialist? Yes November 25, 2024 10:51pm Do you have a Healthcare Power of Dot Compliance Specialist? Yes February 03, 2025 5:08pm Advance Directives Yes March 11:36pm Health Concerns [...] 2024 10:00am chronic bronchitis, unspecified asthma [facility] 2024 10:00am chronic bronchitis, unspecified asthma [facility] 2024 10:00am Reason for Visit Admit Date [...] 2024 10:00am chronic bronchitis, unspecified asthma [facility] 2024 10:00am chronic bronchitis, unspecified asthma [facility] 2024 10:00am Chief Complaint Admit Date chronic bronchitis May 29, 2024 1:44pm chronic bronchitis, unspecified asthma J anuary 2024 10:00am chronic bronchitis, unspecified asthma [facility] 2024 10:00am chronic bronchitis, unspecified asthma [facility] 2024 10:00am chronic bronchitis, unspecified asthma [facility] 2024 10:00am Chief Complaint Admit Date chronic bronchitis, unspecified asthma [facility] 2024 10:00am chronic bronchitis, unspecified asthma [facility] 2024 10:00am chronic bronchitis, unspecified asthma [facility]2024 10:00am chronic bronchitis, unspecified asthma [facility] 2024 10:00am Chief Complaint Admit Date chronic bronchitis, unspecified asthma [facility] 2024 10:00am chronic bronchitis, unspecified asthma M [...] 2025 9:55am Thrombocytopenia January 31, 2025 3:19pm Chief Complaint Admit Date chronic bronchitis, unspecified asthma M 2024 10:00am TIA/CVA November 25, 2024 9:27 [...] [facility] January 31, 2025 3:19pm WOUND February 01, 2025 10:19am WOUND February 01, 2025 11:29am SWOLLEN LEGS/WOUND February 03, 2025 2:23pm Reason for Visit Admit Date Change in [...] 2025 9:55am Thrombocytopenia January 31, 2025 3:19pm History of fall February 01, 2025 10:19am Laceration of knee, left February 01, 2025 10:19am Laceration of left forearm January 10:19am Additional Source Comments (unrecognized sect ion and content) No Status Records FoundNo Status Records FoundNo Status Records Found INFORMATION SOURCE (unrecogn ized section and content) DATE CREATED AUTHOR 09/07/2020 [facility] DATE CREATED AUTHOR AUTHOR'S ORGANIZ ATION 05/28/2024 [facility] DATE CREATED AUTHOR AUTHOR'S ORGANIZ ATION 02/02/2025 [facility] Source Comments (unrecognize d section and content) In the event this informatio n is protected by the Federal Confidentiality of Alcohol and Drug Abuse Patient Records regulations: The Federal rules restrict any use of the information to criminally investigate or prosecute any alcohol or drug abuse patient.[facility] Hospital[facility] the event this information is protected by the Federal Confidentiality of Alcohol and Drug Abuse Patient Records regulations: The Federal rules restrict any use of the information to criminally investigate or prosecute any alcohol or drug abuse patient.[facility] HospitalIn the event this information is protected by the Federal Confidentiality of Alcohol and Drug Abuse Patient Records regulations: The Federal rules restrict any use of the information to criminally investigate or prosecute any alcohol or drug abuse patient.[facility] HospitalIn the event this information is protected by the Federal Confidentiality of Alcohol and Drug Abuse Patient Records regulations: The Federal rules restrict any use of the information to criminally investigate or prosecute any alcohol or drug abuse patient.[facility] HospitalIn the event this information is protected by the Federal Confidentiality of Alcohol and Drug Abuse Patient Records regulations: The Federal rules restrict any use of the information to criminally investigate or prosecute any alcohol or drug abuse patient.[facility] HospitalIn the event this information is protected by the Federal Confidentiality of Alcohol and Drug Abuse Patient Records regulations: The Federal rules restrict any use of the information to criminally investigate or prosecute any alcohol or drug abuse patient.[facility] HospitalIn the event this information is protected by the Federal Confidentiality of Alcohol and Drug Abuse Patient Records regulations: The Federal rules restrict any use of the information to criminally investigate or prosecute any alcohol or drug abuse patient.[facility] HospitalIn the event this information is protected by the Federal Confidentiality of Alcohol and Drug Abuse Patient Records regulations: The Federal rules restrict any use of the information to criminally investigate or prosecute any alcohol or drug abuse patient.[facility] HospitalIn the event this information is protected by the Federal Confidentiality of Alcohol and Drug Abuse Patient Records regulations: The Federal rules restrict any use of the information to criminally investigate or prosecute any alcohol or drug abuse patient.[facility] HospitalIn the event this information is protected by the Federal Confidentiality of Alcohol and Drug Abuse Patient Records regulations: The Federal rules restrict any use of the information to criminally investigate or prosecute any alcohol or drug abuse patient.[facility] HospitalIn the event this information is protected by the Federal Confidentiality of Alcohol and Drug Abuse Patient Records regulations: The Federal rules restrict any use of the information to criminally investigate or prosecute any alcohol or drug abuse patient.[facility] HospitalIn the event this information is protected by the Federal Confidentiality of Alcohol and Drug Abuse Patient Records regulations: The Federal rules restrict any use of the information to criminally investigate or prosecute any alcohol or drug abuse patient.[facility] HospitalIn the event this information is protected by the Federal Confidentiality of Alcohol and Drug Abuse Patient Records regulations: The Federal rules restrict any use of the information to criminally investigate or prosecute any alcohol or drug abuse patient.[facility] HospitalIn the event this information is protected by the Federal Confidentiality of Alcohol and Drug Abuse Patient Records regulations: The Federal rules restrict any use of the information to criminally investigate or prosecute any alcohol or drug abuse patient.[facility] HospitalIn the event this information is protected by the Federal Confidentiality of Alcohol and Drug Abuse Patient Records regulations: The Federal rules restrict any use of the information to criminally investigate or prosecute any alcohol or drug abuse patient.[facility] HospitalIn the event this information is protected by the Federal Confidentiality of Alcohol and Drug Abuse Patient Records regulations: The Federal rules restrict any use of the information to criminally investigate or prosecute any alcohol or drug abuse patient.[facility] HospitalIn the event this information is protected by the Federal Confidentiality of Alcohol and Drug Abuse Patient Records regulations: The Federal rules restrict any use of the information to criminally investigate or prosecute any alcohol or drug abuse patient.[facility] HospitalIn the event this information is protected by the Federal Confidentiality of Alcohol and Drug Abuse Patient Records regulations: The Federal rules restrict any use of the information to criminally investigate or prosecute any alcohol or drug abuse patient.[facility] HospitalIn the event this information is protected by the Federal Confidentiality of Alcohol and Drug Abuse Patient Records regulations: The Federal rules restrict any use of the information to criminally investigate or prosecute any alcohol or drug abuse patient.[facility] HospitalIn the event this information is protected by the Federal Confidentiality of Alcohol and Drug Abuse Patient Records regulations: The Federal rules restrict any use of the information to criminally investigate or prosecute any alcohol or drug abuse patient.[facility] HospitalIn the event this information is protected by the Federal Confidentiality of Alcohol and Drug Abuse Patient Records regulations: The Federal rules restrict any use of the information to criminally investigate or prosecute any alcohol or drug abuse patient.[facility] HospitalIn the event this information is protected by the Federal Confidentiality of Alcohol and Drug Abuse Patient Records regulations: The Federal rules restrict any use of the information to criminally investigate or prosecute any alcohol or drug abuse patient.[facility] HospitalIn the event this information is protected by the Federal Confidentiality of Alcohol and Drug Abuse Patient Records regulations: The Federal rules restrict any use of the information to criminally investigate or prosecute any alcohol or drug abuse patient.[facility] HospitalIn the event this information is protected by the Federal Confidentiality of Alcohol and Drug Abuse Patient Records regulations: The Federal rules restrict any use of the information to criminally investigate or prosecute any alcohol or drug abuse patient.[facility] HospitalIn the event this information is protected by the Federal Confidentiality of Alcohol and Drug Abuse Patient Records regulations: The Federal rules restrict any use of the information to criminally investigate or prosecute any alcohol or drug abuse patient.[facility] HospitalIn the event this information is protected by the Federal Confidentiality of Alcohol and Drug Abuse Patient Records regulations: The Federal rules restrict any use of the information to criminally investigate or prosecute any alcohol or drug abuse patient.[facility] HospitalIn the event this information is protected by the Federal Confidentiality of Alcohol and Drug Abuse Patient Records regulations: The Federal rules restrict any use of the information to criminally investigate or prosecute any alcohol or drug abuse patient.[facility] HospitalIn the event this information is protected by the Federal Confidentiality of Alcohol and Drug Abuse Patient Records regulations: The Federal rules restrict any use of the information to criminally investigate or prosecute any alcohol or drug abuse patient.[facility] HospitalIn the event this information is protected by the Federal Confidentiality of Alcohol and Drug Abuse Patient Records regulations: The Federal rules restrict any use of the information to criminally investigate or prosecute any alcohol or drug abuse patient.[facility] HospitalIn the event this information is protected by the Federal Confidentiality of Alcohol and Drug Abuse Patient Records regulations: The Federal rules restrict any use of the information to criminally investigate or prosecute any alcohol or drug abuse patient.[facility] HospitalIn the event this information is protected by the Federal Confidentiality of Alcohol and Drug Abuse Patient Records regulations: The Federal rules restrict any use of the information to criminally investigate or prosecute any alcohol or drug abuse patient.[facility] HospitalIn the event this information is protected by the Federal Confidentiality of Alcohol and Drug Abuse Patient Records regulations: The Federal rules restrict any use of the information to criminally investigate or prosecute any alcohol or drug abuse patient.[facility] HospitalIn the event this information is protected [...] or prosecute any alcohol or drug abuse patient.[facility] HospitalIn the event this information is protected by the Federal Confidentiality of Alcohol and Drug Abuse Patient Records regulations: The Federal rules restrict any use of the information to criminally investigate or prosecute any alcohol or drug abuse patient.[facility] HospitalIn the event this information is protected by the Federal Confidentiality of Alcohol and Drug Abuse Patient Records regulations: The Federal rules restrict any use of the information to criminally investigate or prosecute any alcohol or drug abuse patient.[facility] HospitalIn the event this information is protected by the Federal Confidentiality of Alcohol and Drug Abuse Patient Records regulations: The Federal rules restrict any use of the information to criminally investigate or prosecute any alcohol or drug abuse patient.[facility] HospitalIn the event this information is protected by the Federal Confidentiality of Alcohol and Drug Abuse Patient Records regulations: The Federal rules restrict any use of the information to criminally investigate or prosecute any alcohol or drug abuse patient.[facility] HospitalIn the event this information is protected by the Federal Confidentiality of Alcohol and Drug Abuse Patient Records regulations: The Federal rules restrict any use of the information to criminally investigate or prosecute any alcohol or drug abuse patient.[facility] HospitalIn the event this information is protected by the Federal Confidentiality of Alcohol and Drug Abuse Patient Records regulations: The Federal rules restrict any use of the information to criminally investigate or prosecute any alcohol or drug abuse patient.[facility] HospitalIn the event this information is protected by the Federal Confidentiality of Alcohol and Drug Abuse Patient Records regulations: The Federal rules restrict any use of the information to criminally investigate or prosecute any alcohol or drug abuse patient.[facility] HospitalIn the event this information is protected by the Federal Confidentiality of Alcohol and Drug Abuse Patient Records regulations: The Federal rules restrict any use of the information to criminally investigate or prosecute any alcohol or drug abuse patient.[facility] HospitalIn the event this information is protected by the Federal Confidentiality of Alcohol and Drug Abuse Patient Records regulations: The Federal rules restrict any use of the information to criminally investigate or prosecute any alcohol or drug abuse patient.[facility] HospitalIn the event this information is protected by the Federal Confidentiality of Alcohol and Drug Abuse Patient Records regulations: The Federal rules restrict any use of the information to criminally investigate or prosecute any alcohol or drug abuse patient.[facility] HospitalIn the event this information is protected by the Federal Confidentiality of Alcohol and Drug Abuse Patient Records regulations: The Federal rules restrict any use of the information to criminally investigate or prosecute any alcohol or drug abuse patient.[facility] HospitalIn the event this information is protected by the Federal Confidentiality of Alcohol and Drug Abuse Patient Records regulations: The Federal rules restrict any use of the information to criminally investigate or prosecute any alcohol or drug abuse patient.[facility] HospitalIn the event this information is protected by the Federal Confidentiality of Alcohol and Drug Abuse Patient Records regulations: The Federal rules restrict any use of the information to criminally investigate or prosecute any alcohol or drug abuse patient.[facility] HospitalIn the event this information is protected by the Federal Confidentiality of Alcohol and Drug Abuse Patient Records regulations: The Federal rules restrict any use of the information to criminally investigate or prosecute any alcohol or drug abuse patient.[facility] HospitalIn the event this information is protected by the Federal Confidentiality of Alcohol and Drug Abuse Patient Records regulations: The Federal rules restrict any use of the information to criminally investigate or prosecute any alcohol or drug abuse patient.[facility] HospitalIn the event this information is protected by the Federal Confidentiality of Alcohol and Drug Abuse Patient Records regulations: The Federal rules restrict any use of the information to criminally investigate or prosecute any alcohol or drug abuse patient.[facility] HospitalIn the event this information is protected by the Federal Confidentiality of Alcohol and Drug Abuse Patient Records regulations: The Federal rules restrict any use of the information to criminally investigate or prosecute any alcohol or drug abuse patient.[facility] HospitalIn the event this information is protected by the Federal Confidentiality of Alcohol and Drug Abuse Patient Records regulations: The Federal rules restrict any use of the information to criminally investigate or prosecute any alcohol or drug abuse patient.[facility] HospitalIn the event this information is protected by the Federal Confidentiality of Alcohol and Drug Abuse Patient Records regulations: The Federal rules restrict any use of the information to criminally investigate or prosecute any alcohol or drug abuse patient.[facility] Reason for Visit (unrecogniz ed section and content) Reason Comments Follow Up Specialty Diagnoses / Procedures Referred By Contac t Referred To Contact Psychiatry / ADULT PSYCHIATRY Diagnoses FOLLOW UP Procedures EST PSYC ADULT Betty Barraza, FORENSIC COMPUTER EXAMINER.CLARIFIER [address] [place] [address] Berkley Roque, FORENSIC COMPUTER EXAMINER.CLARIFIER [address] [place] [address] Referral ID Status Reason Start Date Expiration Date V isits Requested Visits Authorized [id number] Pending Review 08/27/2021 11/25/2021 1 1 Reason Comments 6 Month Exam Referral ID Status Reason Start Date Expiration Date Visits Re quested Visits Authorized [id number] Closed 08/27/2021 11/25/2021 1 1 Reason Comments [...] DETERMINATION Genie Bustamante MD [address] [place] [address] Respiratory [place] [address] [place] [address] Referral ID Status Reason Start Date Expiration Date V isits Requested Visits Authorized [id number] Closed Auto-Generate d Referral 02/27/2022 03/29/2023 1 1 Specialty Diagnoses / Procedures Referred By Contac t Referred To Contact [facility] Diagnoses SOB (shortness of breath) Procedures SPIROMETRY WITH DILATOR IF OBSTRUCTED BRNCDILAT RSPSE SPMTRY PRE&POST-BRNCDILAT ADMN Genie Bustamante MD [address] [place] [address] [address] Referral ID Status Reason Start Date Expiration Date V isits Requested Visits Authorized [id number] Closed Auto-Generate d Referral 02/27/2022 03/29/2023 1 1 Specialty Diagnoses / [facility] [place] Diagnoses SOB (shortness of breath) Procedures LUNG VOLUMES Genie Bustamante MD [address] [place] [address] [address] Referral ID Status Reason Start Date Expiration Date V isits Requested Visits Authorized [id number] Closed Auto-Generate d Referral 02/27/2022 03/29/2023 1 [...] By Contac t Referred To Contact [facility] [place] Diagnoses Cough variant asthma Procedures NITRIC OXIDE, EXHALED NITRIC OXIDE GAS DETERMINATION Becky Fierro PA-C [address] [place] [address] [address] Referral ID Status Reason Start Date Expiration Date V isits Requested Visits Authorized [id number] Closed Auto-Generate d Referral 12/10/2022 01/09/2024 1 [...] SPECT MULTIPLE STUDIES Jd Solis MD [address] [place] [address] Molecular & Functional Imaging [address] [place] [address] Referral ID Status Reason Start Date Expiration Date V isits Requested Visits Authorized [id number] Closed Auto-Generate d Referral 01/04/2023 02/03/2024 1 1 Specialty Diagnoses / Procedures Referred By Contac t Referred To Contact [facility] Diagnoses SOB (shortness of breath) Cough variant asthma Procedures SPIROMETRY BASELINE ONLY SPMTRY W/VC EXPIRATORY [place] W/WO MXML VOL VNTJ Becky Fierro PA-C [address] [place] [address] Respiratory [place] [address] [place], [place] [id number] Referral ID Status Reason Start Date Expiration Date V isits Requested Visits Authorized [id number] Closed Auto-Generate d Referral 04/19/2023 05/18/2024 1 1 Specialty Diagnoses / Procedures [facility] Diagnoses SOB (shortness of breath) Cough variant asthma Procedures MIPS/MEPS UNLISTED PULMONARY SERVICE/PROCEDURE Becky Fierro PA-C [address] [place] [address] Respiratory [place] [address] [place] [address] Referral ID Status Reason Start Date Expiration Date V isits Requested Visits Authorized [id number] Closed Auto-Generate d Referral 04/19/2023 05/18/2024 1 1 Reason Comments Medication Problem Reason Comments Established Patient asthma Reason Comments Head Congestion drainage, cough, sor e throat and chest congestion x 2 days Reason Comments Follow Up Asthma Care Teams (unrecognized sec tion and content) Centrifugal Drier Operator Relationship Specialty Start Date End Date Jd Solis MD [address] [place], [place] [id number] PCP - General Family Practice 01/01/21 Centrifugal Drier Operator Relationship Specialty Start Date End Date Jd Solis MD [address] [facility] [place] [address] PCP - General Family Practice 01/01/21 Centrifugal Drier Operator Relationship Specialty Start Date End Date Jd Solis MD [address] [facility] [place] [address] PCP - General Family Practice 01/01/21 Centrifugal Drier Operator Relationship Specialty Start Date End Date Jd Solis MD [address] [facility] [place] [address] PCP - General Family Practice 01/01/21 Centrifugal Drier Operator Relationship Specialty Start Date End Date Jd Solis MD [address] [facility] [place] [address] PCP - General Family Practice 01/01/21 Centrifugal Drier Operator Relationship Specialty Start Date End Date Jd Solis MD [address] [facility] [place] [address] PCP - General Family Medicine 01/01/21 Centrifugal Drier Operator Relationship Specialty Start Date End Date Jd Solis MD [address] [facility] [place] [address] PCP - General Family Medicine 01/01/21 Centrifugal Drier Operator Relationship Specialty Start Date End Date Jd Solis MD [address] [facility] [place] [address] PCP - General Family Medicine 01/01/21 Centrifugal Drier Operator Relationship Specialty Start Date End Date Jd Solis MD [address] [facility] [place] [address] PCP - General Family Medicine 01/01/21 Centrifugal Drier Operator Relationship Specialty Start Date End Date Jd Solis MD [address] [facility] [place] [address] PCP - General Family Medicine 01/01/21 Centrifugal Drier Operator Relationship Specialty Start Date End Date Jd Solis MD [address] [facility] [place] [address] PCP - General Family Medicine 01/01/21 Centrifugal Drier Operator Relationship Specialty Start Date End Date Jd Solis MD [address] [facility] [place] [address] PCP - General Family Medicine 01/01/21 Centrifugal Drier Operator Relationship Specialty Start Date End Date Jd Solis MD [address] [facility] [place] [address] PCP - General Family Medicine 01/01/21 Centrifugal Drier Operator Relationship Specialty Start Date End Date Jd Solis MD [address] [facility] [place] [address] PCP - General Family Medicine 01/01/21 Centrifugal Drier Operator Relationship Specialty Start Date End Date Jd Solis MD [address] [facility] [address] PCP - General Family Medicine 01/01/21 Centrifugal Drier Operator Relationship Specialty Start Date End Date Jd Solis MD [address] [facility] [address] PCP - General Family Medicine 01/01/21 Centrifugal Drier Operator Relationship Specialty Start Date End Date Jd Solis MD [address] [facility] [place] [address] PCP - General Family Medicine 01/01/21 Centrifugal Drier Operator Relationship Specialty Start Date End Date Jd Solis MD [address] [facility] [place] [address] PCP - General Family Medicine 01/01/21 Centrifugal Drier Operator Relationship Specialty Start Date End Date Jd Solis MD [address] [place] [address] PCP - General Family Medicine 01/01/21 Centrifugal Drier Operator Relationship Specialty Start Date End Date Jd Solis MD [address] [place] [address] PCP - General Family Medicine 01/01/21 Centrifugal Drier Operator Relationship Specialty Start Date End Date Jd Solis MD [address] [place] [address] PCP - General Family Medicine 01/01/21 Centrifugal Drier Operator Relationship Specialty Start Date End Date Jd Solis MD [address] [place] [address] PCP - General Family Medicine 01/01/21 Centrifugal Drier Operator Relationship Specialty Start Date End Date Jd Solis MD [address] [place] [address] PCP - General Family Medicine 01/01/21 Centrifugal Drier Operator Relationship Specialty Start Date End Date Jd Solis MD [address] [place] [address] PCP - General Family Medicine 01/01/21 Centrifugal Drier Operator Relationship Specialty Start Date End Date Jd Solis MD [address] [place] [address] PCP - General Family Medicine 01/01/21 Centrifugal Drier Operator Relationship Specialty Start Date End Date Jd Solis MD [address] [place] [address] PCP - General Family Medicine 01/01/21 Centrifugal Drier Operator Relationship Specialty Start Date End Date Jd Solis MD [address] [place] [address] PCP - General Family Medicine 01/01/21 Centrifugal Drier Operator Relationship Specialty Start Date End Date Jd Solis MD [address] [place] [address] PCP - General Family Medicine 01/01/21 Team Status: Active Member Role Status Dates Dr. Daniel Naqvi III, MD Family Provider Active Dr. Jd Solis MD Primary Care Provider Active Team Status: Inactive Member Role Status Dates Dr. Jd Solis MD Primary Care Provider Active Dr. Tre García MD Attending Provider Active Centrifugal Drier Operator Relationship Specialty Start Date End Date Jd Solis MD [address] [place] [address] PCP - General Family Medicine 01/01/21 Team Status: Active Member Role Status Dates Dr. Jd Solis MD Primary Care Provider Active Dr. Geovanny Naqvi MD Attending Provider Active Team Status: Inactive Member Role Status Dates Dr. Jd Solis MD Primary Care Provider Active Dr. Tre García MD Attending Provider, Referring Pr ovider Active Centrifugal Drier Operator Relationship Specialty Start Date End Date Jd Solis MD [address] [place] [address] PCP - General Family Medicine 01/01/21 Team [...] Active Chacho LEAVITT MD Referring Provider Active Centrifugal Drier Operator Relationship Specialty Start Date End Date Jd Solis MD [address] [place], [place] [address] PCP - General Family Medicine 01/01/21 Team [...] DO Attending Provider, Emergency Pro vider Active Centrifugal Drier Operator Relationship Specialty Start Date End Date Tre García Chi [address] [place] [address] PCP - General Gerontology 11/09/23 Centrifugal Drier Operator Relationship Specialty Start Date End Date Tre García Chi [address] [place], [place] [address] PCP - General Gerontology 11/09/23 Centrifugal Drier Operator Relationship Specialty Start Date End Date Tre García Chi [address] [place], [place] [address] PCP - General Gerontology 11/09/23 Centrifugal Drier Operator Relationship Specialty Start Date End Date Jd Solis MD [address] [place], [place] [address] PCP - General Family Medicine 01/01/21 11/08/23 Centrifugal Drier Operator Relationship Specialty Start Date End Date Tre García Chi [address] [place], [place] [address] PCP - General Gerontology 11/09/23 Centrifugal Drier Operator Relationship Specialty Start Date End Date Jd Solis MD [address] [place] [address] PCP - General Family Medicine 01/01/21 11/08/23 Centrifugal Drier Operator Relationship Specialty Start Date End Date Jd Solis MD [address] [place], [place] [address] PCP - General Family Medicine 01/01/21 11/08/23 Centrifugal Drier Operator Relationship Specialty Start Date End Date Tre García Chi [address] [place], [place] [address] PCP - General Gerontology 11/09/23 Centrifugal Drier Operator Relationship Specialty Start Date End Date Tre García Chi [address] [place] [address] PCP - General Gerontology 11/09/23 Team Status: [...] Active Start: May 10, 2024 Kimberly Swenson NP, SPRAY MACHINE OPERATOR-C Attending Provider Active Start: May 10, 2024 Kimberly Swenson NP, SPRAY MACHINE OPERATOR-C Other Provider Active S tart: May 10, 2024 Team Status: Inactive Member Role Status Dates Dr. Tre García MD Primary Care Provider Active Start: May 17, 2024 End: May 22, 2024 Dr. Tre García MD Referring Provider Active Start: May 17, 2024 End: May 22, 2024 Kimberly Swenson SPRAY MACHINE OPERATOR, SPRAY MACHINE OPERATOR-C Attending Provider Active Start: May 17, 2024 End: May 22, 2024 Team Status: Active Member Role Status Dates Dr. Tre García MD Primary Care Provider Active Start: May 17, 2024 Dr. Tre García MD Referring Provider Active Start: May 17, 2024 Kimberly Swenson SPRAY MACHINE OPERATOR, SPRAY MACHINE OPERATOR-C Attending Provider Active Start: May 17, 2024 Kimberly Swenson SPRAY MACHINE OPERATOR, SPRAY MACHINE OPERATOR-C Other Provider Active S tart: May 17, [...] Provider Active Start: September 18, 2024 Dr. rTe García MD Attending Provider Active Start: September [...] Inactive Member Role/Relationship Status Dates Dr. Tre Garcaí MD Primary Care Provider Active Start: October [...] Sta rt: November 27, 2024 Dr. Christiano Garciah , MD Other Provider Active Start: November 27, [...] Norman Cerda MD Other Provider Active Start: Avril 2024 End: November 27, 2024 Dr. Dk [...] January 31, 2025 End: January 31, 2025 Team Status: Active Member Role/Relationship Status Dates Dr. Tre García MD Primary Care Provider Active Start: February 01, 2025 Dr. Tre García MD Referring Provider Active Start: February 01, 2025 Dr. Beba Ahumada MD Attending Provider Active Start: February 01, 2025 Team Status: Active Member Role/Relationship Status Dates Dr. Tre García MD Primary Care Provider Active Start: February 01, 2025 Dr. Tre García MD Referring Provider Active Start: February 01, 2025 Dr. Beba Ahumada MD Attending Provider Active Start: February 01, 2025 Dr. Beba Ahumada MD Other Provider Active Start: February 01, 2025 Team Status: Inactive Member Role/Relationship Status Dates Dr. Tre García MD Primary Care Provider Active Start: February 03, 2025 End: February 03, 2025 Dr. Rufino Mobley DO Emergency Provider Activ e Start: February 03, 2025 End: February 03, 2025 Goals (unrecognized section and content) Goals [...] BE BASED ON THE PRIMARY CLINICAL RECORDS. [employer] [facility]. provides no warranty or guarantee of the accuracy or completeness of information in this document.
--- NOTE | 2025-02-04 11:15 | VDLE_ITS ---
Reason For Study Reason For Study: LLE Pain Procedure LEFT This is a venous duplex using B-mode, color flow and GSV is normal. spectral Doppler. CFV is compressible, spontaneous, phasic, competent, Exam performed in department. and demonstrates normal augmentation. The exam was diagnostic. FV is compressible, spontaneous, phasic, competent A preliminary report was called and/or faxed to [facility] and demonstrates normal augmentation. ED. POP V is compressible, spontaneous, phasic, competent and demonstrates normal augmentation. T/P Trunk is compressible. PTV is compressible. LT PerV is compressible. VL/Venous Duplex US, Unilateral Interpretation Summary Deep veins of the left lower extremity are patent and compressible segmentally. There is no evidence of left lower extremity deep vein thrombosis. Valvular competence appears intact within the p roximal deep venous system on the left . The left great saphenous vein appears patent and compressible segmentally. Ordering Physician: Rufino Mobley Referring Physician: Tre García Chi Performed By: Yung Cox RVT
== END 2025-02-03 17:13 | disposition home or self-care (01) ==
LOC: ED 16:51 → US 02-04 11:03
PROVIDERS: Emergency Provider Surgery; PCP Family Medicine Geriatric Medicine; Visit Provider Surgery
DX: M79.89 Other specified soft tissue disorders (principal); J44.9 Chronic obstructive pulmonary disease, unspecified; W19.XXXA Unspecified fall, initial encounter; I12.9 Hypertensive chronic kidney disease with stage 1 through stage 4 chronic kidney disease, or unspecified chronic kidney disease; N18.2 Chronic kidney disease, stage 2 (mild); E78.5 Hyperlipidemia, unspecified; Z87.891 Personal history of nicotine dependence; T14.8XXA Other injury of unspecified body region, initial encounter
CPT/HCPCS: 93971; 99282

== ENCOUNTER → 2025-02-04 | Outpatient (CLI) | payer MEDICARE, SELFPAY ==
--- OUTSIDE RECORDS SUMMARY | 2024-05-26 15:15 | XMS RPT_ITS ---
Author Name Auto Generated Organization [facility] Care Team Providers Care Farm Manager Name Role Phone TRE GARCÍA [facility] Primary Care Unavailable GENIE PONCE Attending Unavailable PROBLEMS No Problem Records Found PROCEDURES No Procedure Records Found RESULTS CNOV Observed: 05/26/2024 2:15 PM Status: COMPLETED Source: [facility] Office Visit (PULMWS) VALENTINA CABRERA ([id number]) 1945 M Date Time Provider Department 05/26/24 2:15 PM GENIE PONCE PULMWS During your visit today, we recorded the following information about you: Pulse Blood pressure Weight 87/minute 126/70 91.2 kg Genie Ponce MD 05/26/2024 5:25 PM Signed . [facility] Note Patient name: Valentina Cabrera PCP: Tre García MD CC: Follow-up airways disease HPI: Valentina Cabrera 79 year old male non-smoker with PMH significant for GERD, BPH, HTN, allergies previously treated with immunotherapy, eventration of the diaphragm, depression and chronic cough. Previously negative methacholine challenge test with referral to Dr. Roca for possible vocal cord dysfunction but patient was started on ICS by his primary care physician with resolution of his cough. Was on Dulera, Singulair and as needed albuterol. Recent history notable for COVID infection January of this past year resulting in worsening of his cough and shortness of breath. Patient was actually hospitalized at [facility], hypoxemic, received remdesivir and dexamethasone and actually discharged on supplemental oxygen which he was subsequently able to discontinue. His current inhaled therapy was changed to Breztri and he presents today for follow-up visit. He feels improved on the Breztri. No significant coughing or chest congestion. Less shortness of breath and improved endurance. He denies any wheezing or chest tightness. Pulmonary function test performed at [facility] shows small airways obstruction with worsening of his airflow postbronchodilator. DATA: PFT 02/2024 [facility]: FVC 3.86 L 103% FEV1 2.62 L 94% FEV1/FVC 68% FEF 25-75% 1.28 L 66% No improvement postbronchodilator PAST MEDICAL HISTORY Diagnosis Date Abdominal pain, left lower quadrant Achilles tendinitis 10/04/2012 Adjustment disorder with depressed mood Allergies Chronic low back pain 03/12/2011 Constipation Essential hypertension, benign Family history of ischemic heart disease Family history of mental disorder Family history of stroke GERD without esophagitis History of COVID-19 x 2 Hypertrophy of prostate with urinary obstruction and other lower urinary tract symptoms (LUTS) 07/05/2007 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 melatonin 10 mg cap Take by mouth daily at bedtime. albuterol HFA (PROVENTIL HFA, VENTOLIN HFA) 90 mcg/actuation inhaler Inhale 2 Puffs as instructed every 4 hours as needed for wheezing/shortness of breath. omeprazole (PRILOSEC) 40 mg capsule Take 1 capsule by mouth once daily lisinopril (ZESTRIL) 5 mg tablet take 1 tablet daily montelukast (SINGULAIR) 10 mg tablet Take 1 tablet by mouth daily at bedtime. nortriptyline (PAMELOR) 50 mg capsule Take 1 capsule by mouth twice daily. tamsulosin (FLOMAX) 0.4 mg TAKE 1 [...] 1 LESION Skin biopsy TONSILLECTOMY AND ADENOIDECTOMY <AGE 12 PMH, Social history, family history and surgical history reviewed and updated in EMR REVIEW OF SYSTEMS: CONSTITUTIONAL: No fevers, chills, nightsweats, unintended weight loss HEENT: Denies nasal congestion/sinus symptoms, current allergy problems. CARDIOVASCULAR: No chest pain, palpitations, edema. PULM: See HPI GI: No dysphagia/odynophagia, problematic reflux NEURO: No new balance problems, peripheral weakness/paresthesias or numbness of concern. PHYSICAL EXAMINATION: BP 126/70 Pulse 87 Wt 201 lb (91.2kg) SpO2 96% General Appearance: Elderly male, NAD. Skin: Skin color, texture, turgor normal, no suspicious rashes or lesions. Head: Normocephalic, no masses, lesions, tenderness or abnormalities. Oropharynx: No oral lesions or thrush. Neck: No masses or adenopathy Chest wall: Kyphosis. Lungs: Not labored, normal to percussion, no wheezes or crackles. Heart: Regular rate and rhythm, no murmurs. Extremities: Mild pitting edema, no clubbing. Assessment/Plan: 1. Small airways disease -Symptomatically improved with Breztri -He will continue on his current inhaled therapy 2. History of COVID -COVID worsened his airflow obstruction but he does not appear to have long-haul COVID at this time 3. Eventration of the diaphragm -No intervention I spent a total of 36 minutes on the date of the service which included preparing to see the patient, [id number] patient care, completing clinical documentation, obtaining and/or reviewing separately obtained history, performing a medically appropriate examination, and independently interpreting results (not separately reported). Genie Ponce MD [facility] Allergies As of Date: 05/26/2024 (No Active Allergies) Date Reviewed: 05/26/2024 Reviewed by: Genie Ponce MD - Fully Assessed Reason for Visit: Follow Up [171] Asthma [11] Primary Visit Diagnosis:Small airways disease [J98.4] Other Visit Diagnoses:History of COVID-19 [Z86.16] Diaphragm, eventration [Q79.1] Prescriptions as of 05/26/2024 - BREZTRI AEROSPHERE 160-9-4.8 mcg/actuation HFA aerosol inhaler Inhale 2 Puffs as instructed two times a day. - melatonin 10 mg cap Take by mouth daily at bedtime. - albuterol HFA (PROVENTIL HFA, VENTOLIN HFA) 90 mcg/actuation inhaler Inhale 2 Puffs as instructed every 4 hours as needed for wheezing/shortness of breath. - omeprazole (PRILOSEC) 40 mg capsule Take 1 capsule by mouth once daily - lisinopril (ZESTRIL) 5 mg tablet take 1 tablet daily - montelukast (SINGULAIR) 10 mg tablet Take 1 tablet by mouth daily at bedtime. - nortriptyline (PAMELOR) 50 mg capsule Take 1 capsule by mouth twice daily. - tamsulosin (FLOMAX) 0.4 mg TAKE 1 CAPSULE DAILY AT BEDTIME - polyethylene glycol 3350 (MIRALAX, GLYCOLAX) 17 gram packet Take 1 Packet by mouth twice daily. 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 Eczema [L3*06/09/2011 Achilles tendinitis [M76.60] 10/04/2012 04/17/2015 Degeneration of lumbar or lumbosacral intervert*11/16/2012 Anxiety [F41.9] 01/15/2015 Shortness of breath [R06.02] 02/12/2016 06/29/2016 Internal hemorrhoids [K64.8] 01/11/2018 Essential hypertension, benign [I10] Recurrent major depressive disorder, in full re*06/25/2021 Moderate persistent asthma without complication*05/13/2022 Medications Discontinued During This Encounter Prescriptions - mometasone-formoterol (DULERA) 200-5 mcg/actuation inhaler (Discontinued) Reported on 05/26/2024 - mometasone-formoterol (DULERA) 200-5 mcg/actuation inhaler (Discontinued) Inhale 2 Puffs as instructed two times a day. Disposition: Return in about 6 months (around 11/24/2024). Follow-up and Disposition History for Encounter Date Provider Department Center 05/26/2024 [id number]-CLOVEGENIE PONCEJEREMI Betts Encounter Status:Closed by GENIE PONCE on 05/26/24 PROGRESS Observed: 05/26/2024 2:15 PM Status: COMPLETED [id number] Author: GENIE PONCE MD Service: ? Author Type: Physician Type: Progress Notes Filed: 05/26/2024 17:25 Note Text: . [facility] Patient name: Valentina Cabrera PCP: Tre García MD CC: Follow-up airways disease HPI: Valentina Cabrera 79 year old male non-smoker with PMH significant for GERD, BPH, HTN, allergies previously treated with immunotherapy, eventration of the diaphragm, depression and chronic cough. Previously negative methacholine challenge test with referral to Dr. Roca for possible vocal cord dysfunction but patient was started on ICS by his primary care physician with resolution of his cough. Was on Dulera, Singulair and as needed albuterol. Recent history notable for COVID infection January of this past year resulting in worsening of his cough and shortness of breath. Patient was actually hospitalized at [facility], hypoxemic, received remdesivir and dexamethasone andactually discharged on supplemental oxygen which he was subsequently able to discontinue. His current inhaled therapy was changed to Breztri and he presents today for follow-up visit. He feels improved on the Breztri. No significant coughing or chest congestion. Less shortness of breath and improved endurance. He denies any wheezing or chest tightness. Pulmonary function test performed at [facility] shows small airways obstruction with worsening of his airflow postbronchodilator. DATA: PFT 02/2024 [facility]: FVC 3.86 L 103% FEV1 2.62 L 94% FEV1/FVC 68% FEF 25-75% 1.28 L 66% No improvement postbronchodilator PAST MEDICAL HISTORY Diagnosis Date Abdominal pain, left lower quadrant Achilles tendinitis 10/04/2012 Adjustment disorder with depressed mood Allergies Chronic low back pain 03/12/2011 Constipation Essential hypertension, benign Family history of ischemic heart disease Family history of mental disorder Family history of stroke GERD without esophagitis History of COVID-19 x 2 Hypertrophy of prostate with urinary obstruction and other lower urinary tract symptoms (LUTS) 07/05/2007 [facility] (current) use of inhaled steroids Lumbar discogenic pain syndrome 06/05/2010 Male erectile disorder Other intervertebral disc degeneration, lumbosacral region Overweight Personal history of other malignant neoplasm of skin Personal history of tobacco use Rosacea Unilateral primary osteoarthritis, right knee ALLERGIES No Active Allergies BREZTRI AEROSPHERE 160-9-4.8 mcg/actuation HFA aerosol inhaler Inhale 2 Puffs as instructed two times a day. melatonin 10 mg cap Take by mouth daily at bedtime. albuterol HFA (PROVENTIL HFA, VENTOLIN HFA) 90 mcg/actuation inhaler Inhale 2 Puffs as instructed every 4 hours as needed for wheezing/shortness of breath. omeprazole (PRILOSEC) 40 mg capsule Take 1 capsule by mouth once daily lisinopril (ZESTRIL) 5 mg tablet take 1 tablet daily montelukast (SINGULAIR) 10 mg tablet Take 1 tablet by mouth daily at bedtime. nortriptyline (PAMELOR) 50 mg capsule Take 1 capsule by mouth twice daily. tamsulosin (FLOMAX) 0.4 mg TAKE 1 [...] 1 LESION Skin biopsy TONSILLECTOMY AND ADENOIDECTOMY <AGE 12 PMH, Social history, family history and surgical history reviewed and updated in EMR REVIEW OF SYSTEMS: CONSTITUTIONAL: No fevers, chills, nightsweats, unintended weight loss HEENT: Denies nasal congestion/sinus symptoms, current allergy problems. CARDIOVASCULAR: No chest pain, palpitations, edema. PULM: See HPI GI: No dysphagia/odynophagia, problematic reflux NEURO: No new balance problems, peripheral weakness/paresthesias or numbness of concern. PHYSICAL EXAMINATION: BP 126/70 Pulse 87 Wt 201 lb (91.2kg) SpO2 96% General Appearance: Elderly male, NAD. Skin: Skin color, texture, turgor normal, no suspicious rashes or lesions. Head: Normocephalic, no masses, lesions, tenderness or abnormalities. Oropharynx: No oral lesions or thrush. Neck: No masses or adenopathy Chest wall: Kyphosis. Lungs: Not labored, normal to percussion, no wheezes or crackles. Heart: Regular rate and rhythm, no murmurs. Extremities: Mild pitting edema, no clubbing. Assessment/Plan: 1. Small airways disease -Symptomatically improved with Breztri -He will continue on his current inhaled therapy 2. History of COVID -COVID worsened his airflow obstruction but he does not appear to have long-haul COVID at this time 3. Eventration of the diaphragm -No intervention I spent a total of 36 minutes on the date of the service which included preparing to see the patient, [id number] patient care, completing clinical documentation, obtaining and/or reviewing separately obtained history, performing a medically appropriate examination, and independently interpreting results (not separately reported). Genie Ponce MD [facility] ALLERGIES No Allergies Records Found ENCOUNTERS ADMIT/DISCHARGE ACCOUNT NUMBER ADMITTING ENCOUNTER CLASS LOC ATION SOURCE 05/26/2024/ 4 [id number] [facility] PAYERS ENCOUNTER GUARANTOR PAYER SUBSCRIBER SOURCE 05/26/2024 Primary Insurance:[employer] MEDICARE PPOPolicy Number: [id number] Date:[id number] Name:Andres CABRERADOB: [id number] [place] [address] [facility]
[2024-09-15 08:14] VITALS: BMI 29.8
== END | disposition home or self-care (01) ==
PROVIDERS: PCP Family Medicine Geriatric Medicine; Referring Provider Surgery; Visit Provider Surgery
DX: M79.89 Other specified soft tissue disorders (principal)
CPT/HCPCS: 93971

== ENCOUNTER 2025-02-22 09:00 | Outpatient (RCR) | payer MEDICARE, SELFPAY ==
[2024-09-15 08:14] VITALS: BMI 29.8
[2025-02-01 11:04] VITALS: BP 117/68; PULSE 89; RESP 16; TEMP 35.8
--- NOTE | 2025-02-01 11:29 | PCM.WC.PN ---
History of Present Illness Date of Service: 02/01/25 Chief Complaint: Left Forearm/Wrist and Left Knee Wound History of Wound: Mr. Rodríguez is an 80-year-old referred to the wound center by his primary care physician following a recent wound. Fell off his driveway landing on his left side with subsequent injury to his left forearm/wrist and left knee. Has been using some dressings which he had at home. Was also seen by his primary care physician and started on antibiotics. He had a head CT which was negative for bleed. No tobacco use/abuse. No history of diabetes. Stays active. Feels well otherwise, no acute concerns reported. Progress of Wound: Some improvement noted since his last visit. Had some difficulty with the foam dressing to his left forearm but otherwise, tolerated dressings well. Objective Data Objective Data Vital Signs: Vital Signs Temp Pulse Resp BP O2 Del Method 96.5 F L 89 16 117/68 Room Air 02/01/25 11:04 02/01/25 11:04 02/01/25 11:04 02/01/25 11:04 02/01/25 11:04 Oxygen Delivery Method Room Air Charges/Coding Procedures Integumentary 111xxx-113xx: [id number] Angella subq tissue 20 sq cm/< Physical Exam Const alert, oriented x3 and no apparent distress General Appearance: cooperative and comfortable HEENT normocephalic, head/scalp atraumatic and hearing grossly normal bilaterally Eyes EOMs intact bilaterally General Eye: normal appearance of both eyes Neck full ROM General: normal visual inspection Resp normal respiratory effort and normal air movement Effort and Inspection: able to speak in complete sentences Cardio regular rate, regular rhythm, S1 normal heart sound and S2 normal heart sound GI soft to palpation and non-tender Skin Wounds: wounds noted size Size: See clinical note, bed granulating well, margins well approximated, no odor and surrounding erythema Neuro CN's II-XII intact bilaterally, moves all extremities and no focal motor deficits Psych mental status grossly normal, thought process normal, cooperative and affect normal Debridement Note Debridement Note Wound debrided: Left forearm (distal) Type of Debridement: Excisional debridement Anesthesia Used: 5% Lidocaine Gel Depth: Down to and including healthy tissue and in the subcutaneous layer Percentage of wound debrided: 100 Instrument Used: 5mm curette Tissue Removed: Slough and vitalized tissue Severity: Fat Layer Exposed Amount of bleeding with debridement: Mild Bleeding Controlled with: Pressure Patient tolerated procedure: Patient tolerated procedure well Post-Debridement Measurements and Additional Note: Post-Debridement Measurements/Treatment CRUZ - Nurse 1 - General Ulcer Assessment Start: 02/01/25 11:04 Freq: Status: Active Protocol: GILLIAN Activity Type Activity Date Activity User E-sign Co-sign Detail Recorded Client Recorded Date Recorded By Document 02/01/25 11:04 KAVON [id number] 02/01/25 11:17 02/01/25 11:04 - Today's Visit Information Type of service Follow-up Visit (Physician/LABOR RELATIONS CONSULTANT ) Arrival Mode Ambulatory Patient Identification Verified (Name & Yes ) Vital Signs Temperature (97.8 F-99.1 F) 96.5 F L Temperature Source Temporal Pulse Rate (60-100) 89 Pulse Location Monitor Respiratory Rate (12-18) 16 Respiratory rate source Observation Oxygen Delivery Method Room Air Blood Pressure (90/60-120/80) 117/68 Blood Pressure Mean (mm Hg) 84 Source Monitor Position Sitting Blood Pressure Location Left Arm History Since Last Visit- (Skip if this is Patient's initial visit) Have you changed medications since your No last visit? Any new allergies or adverse reactions No Had a fall/change in ADL's that may No increase risk of falls Signs or symptoms of abuse and/or No neglect since last visit Have you been in the hospital since your No last visit? Has dressing in place as prescribed Yes Has compression in place as prescribed Yes Has offloadiing in place as prescribed N/A Experienced any changes in pain level or No management Left Footwear Regular Shoe Right Footwear Regular Shoe Pain Scale: 0-10 Numeric Is Patient Pain Free? Yes Berry Nurse 1 - General Ulcer Measurement Start: 02/01/25 11:04 Freq: Status: Active Protocol: Activity Type Activity Date Activity User E-sign Co-sign Detail Recorded Client Recorded Date Recorded By Document 02/01/25 11:04 KAVON [id number] 02/01/25 11:17 02/01/25 11:04 Wound Center Nurse 1 #5 left wrist -Current Size (cm) - Length 0.1 -Current Size (cm) - Width 0.1 -Current Size (cm) - Depth 0.1 -Total Square Cm 0.01 -Date of Last Picture (Recall this 02/01/25 field) -Exudate Amt None Present -Wound Margin Distinct, Outline Attached -Texture (Edie-wound Skin Appearance) Assessed -Moisture (Edie-wound Skin Appearance) Assessed -Color (Edie-wound Skin Appearance) Assessed, Ecchymosis, Hemosiderin Staining -Temperature (Edie-wound Skin No Abnormality Appearance) (Pt Warm) -Tenderness on Palpation (Edie-wound No Skin Appearance) -Ulcer Cleansing Rinsed/ Irrigated with Saline -Foul Odor after Cleansing No -Anesthetic Used 5% Lidocaine Gel #4 left knee -Current Size (cm) - Length 2.5 -Current Size (cm) - Width 2.1 -Current Size (cm) - Depth 0.1 -Total Square Cm 5.25 -Date of Last Picture (Recall this 02/01/25 field) -Exudate Amt Medium -Exudate Type Serosanguineous -Wound Margin Distinct, Outline Attached -Granulation Amt Medium (34-66%) -Granulation Quality [place],Red -Necrosis Amt Medium (34-66%) -Necrotic Tissue Type Adherent Slough -Texture (Edie-wound Skin Appearance) Assessed -Moisture (Edie-wound Skin Appearance) Assessed -Color (Edie-wound Skin Appearance) Assessed -Temperature (Edie-wound Skin No Abnormality Appearance) (Pt Warm) -Tenderness on Palpation (Edie-wound No Skin Appearance) -Ulcer Cleansing Rinsed/ Irrigated with Saline -Foul Odor after Cleansing No -Anesthetic Used 5% Lidocaine Gel WC - Nurse 2 - General Ulcer CM Notes Start: 02/01/25 11:04 Freq: Status: Active Protocol: Activity Type Activity Date Activity User E-sign Co-sign Detail Recorded Client Recorded Date Recorded By Document 02/01/25 11:19 [id number] 02/01/25 11:27 02/01/25 11:19 Wound Center Nurse 2 #5 left wrist -Time 11:19 -Correct Patient Yes -Correct Side, Site, Position Yes -Correct Procedure Yes -Procedure Performed Yes -Type of Procedure Debridement -Clinical Debridement Subcutaneous -Tissue Removed Subcutaneous -Post Debridement (cm) - Length 2.1 -Post Debridement (cm) - Width 2.1 -Post Debridement (cm) - Depth 0.1 -Total Square (Post) (cm) 4.41 -Area of Debridement (cm) - Length 2.1 -Area of Debridement (cm) - Width 2.1 -Total Square (Area) (cm) 4.41 -Tunneling No -Undermining/Tunneling No -Circular Undermining No -Wound/Ulcer Outcome Not Healed -Ulcer Cleansing Rinsed/ Irrigated with Saline -Foul Odor after Cleansing No -Bioengineered Tissue No -Bleeding Controlled with Pressure -Treatment Response Procedure Tolerated Well -Offloading No -Debridement - Subq, 1st 20sq cm No #4 left knee -Time 11:24 -Correct Patient Yes -Correct Side, Site, Position Yes -Correct Procedure Yes -Procedure Performed Yes -Type of Procedure Debridement -Clinical Debridement Subcutaneous -Tissue Removed Subcutaneous -Post Debridement (cm) - Length 1.4 -Post Debridement (cm) - Width 0.4 -Post Debridement (cm) - Depth 0.1 -Total Square (Post) (cm) 0.56 -Area of Debridement (cm) - Length 1.4 -Area of Debridement (cm) - Width 0.4 -Total Square (Area) (cm) 0.56 -Tunneling No -Undermining/Tunneling No -Circular Undermining No -Wound/Ulcer Outcome Not Healed -Ulcer Cleansing Rinsed/ Irrigated with Saline -Foul Odor after Cleansing No -Bioengineered Tissue No -Bleeding Controlled with Pressure -Treatment Response Procedure Tolerated Well -Offloading No -Debridement - Subq, 1st 20sq cm Yes Pain Scale: 0-10 Numeric Is Patient Pain Free? Yes Additional Wound Wound debrided: Left knee Type of Debridement: Excisional debridement Anesthesia Used: 5% Lidocaine Gel Depth: Down to and including healthy tissue and in the subcutaneous layer Percentage of wound debrided: 100 Instrument Used: 5mm curette Tissue Removed: Slough and devitalized tissue Severity: Fat Layer Exposed Amount of bleeding with debridement: Mild Bleeding Controlled with: Pressure Patient tolerated procedure: Patient tolerated procedure well Assessment/Plan Assessment/Plan (1) Laceration of left forearm: CODE(S): S51.812A - Laceration without foreign body of left forearm, initial encounter QUALIFIERS: Encounter type: initial encounter Qualified Code(s): S51.812A - Laceration without foreign body of left forearm, initial encounter (2) Laceration of knee, left: CODE(S): S81.012A - Laceration without foreign body, left knee, initial encounter QUALIFIERS: Encounter type: initial encounter Qualified Code(s): S81.012A - Laceration without foreign body, left knee, initial encounter (3) History of fall: CODE(S): Z91.81 - History of falling PLAN: Plan Debridement done as documented above, procedure was well-tolerated. Improvement noted since his last visit. Concerns with foam dressing to his left forearm as above. Continue Fibracol to both areas daily. Cover with Adaptic. Gauze to left forearm and foam dressing to knee. Change daily to twice daily depending on drainage. Elevate left lower extremity and upper extremity when seated. Adequate dietary/protein intake also recommended. His questions were answered and he was advised to let us know if he had any further questions or concerns. Follow-up in a week or sooner if needed. This note was generated with [employer] dictation software. It may contain incorrect words, spelling, and punctuation that were not noted in checking the note before signing.
--- NOTE | 2025-02-01 13:31 | WC ---
PHOTO-L KNEE 02/01/25
--- NOTE | 2025-02-01 13:31 | WC ---
PHOTO-LEFT WRIST 02/01/25
[2025-02-08 09:52] VITALS: BP 120/68; PULSE 84; RESP 18; TEMP 36.2
--- NOTE | 2025-02-08 10:09 | PN.PCM_ITS ---
History of Present Illness Date of Service: 02/08/25 Chief Complaint: Left Forearm/Wrist and Left Knee Wound History of Wound: Mr. Rodríguez is an 80-year-old referred to the wound center by his primary care physician following a recent wound. Fell off his driveway landing on his left side with subsequent injury to his left forearm/wrist and left knee. Has been using some dressings which he had at home. Was also seen by his primary care physician and started on antibiotics. He had a head CT whi ch was negative for bleed. No tobacco use/abuse. No history of diabetes. Stays active. Feels well otherwise, no acute concerns reported. Progress of Wound: Recent ER visit due to left lower extremity/foot pain and swelling. He was concerned about a blood clot however imaging done did not reveal any acute concerns. Said pain and swelling has resolved. Some improvement in his wounds. Objective Data Objective Data Vital Signs: Vital Signs Temp Pulse Resp BP O2 Del Method 97.1 F L 84 18 120/68 Room Air 02/08/25 09:52 02/08/25 09:52 02/08/25 09:52 02/08/25 09:52 02/01/25 11:04 Oxygen Delivery Method Room Air Charges/Coding Procedures Integumentary 111xxx-113xx: 09506 Angella subq tissue 20 sq cm/< Physical Exam Const alert, oriented x3 and no apparent distress General Appearance: cooperative and comfortable HEENT normocephalic, head/scalp atraumatic and hearing grossly normal bilaterally Eyes EOMs intact bilaterally General Eye: normal appearance of both eyes Neck full ROM General: normal visual inspection Resp normal respiratory effort and normal air movement Effort and Inspection: able to speak in complete sentences Cardio regular rate, regular rhythm, S1 normal heart sound and S2 normal heart sound GI soft to palpation and non-tender Skin Wounds: wounds noted size Size: See clinical note, bed granulating well, margins well approximated, no odor and surrounding erythema Neuro CN's II-XII intact bilaterally, moves all extremities and no focal motor deficits Psych mental status grossly normal, thought process normal, cooperative and affect normal Debridement Note Debridement Note Wound debrided: Left forearm/wrist Type of Debridement: Excisional debridement Anesthesia Used: 5% Lidocaine Gel Depth: Down to and including healthy tissue and in the subcutaneous layer Percentage of wound debrided: 100 Instrument Used: 3mm curette Tissue Removed: Devitalized tissue Severity: Fat Layer Exposed Amount of bleeding with debridement: Mild Patient tolerated procedure: Patient tolerated procedure well Post-Debridement Measurements and Additional Note: Post-Debridement Measurements/Treatment - Nurse 1 - General Ulcer Assessment Start: 02/01/25 11:04 Freq: Status: Active Protocol: GILLIAN Activity Type Activity Date Activity User E-sign Co-sign Detail Recorded Client Recorded Date Recorded By Document 02/01/25 11:04 KW [id number] 02/01/25 11:17 KW Document 02/08/25 09:52 RB [id number] 02/08/25 09:55 RB Edit Result 02/08/25 09:52 RB (1) [id number] 02/08/25 09:56 RB (1) Blood Pressure (90/60-120/80) 164/87 H => 120/68 Blood Pressure Mean (mm Hg) 112 => 85 02/01/25 02/08/25 11:04 09:52 - Today's Visit Information Type of service Follow-up Visit Follow-up Visit (Physician/SPECIAL EVENTS DRIVER (Physician/SPECIAL EVENTS DRIVER ) ) Arrival Mode Ambulatory Ambulatory Transfer Assistance None Patient Identification Verified (Name & Yes Yes ) Patient Requires Transmission-Based No Precautions Vital Signs Temperature (97.8 F-99.1 F) 96.5 F L 97.1 F L Temperature Source Temporal Temporal Pulse Rate (60-100) 89 84 Pulse Location Monitor Monitor Respiratory Rate (12-18) 16 18 Respiratory rate source Observation Observation Oxygen Delivery Method Room Air Blood Pressure (90/60-120/80) 117/68 120/68 Blood Pressure Mean (mm Hg) 84 85 Source Monitor Monitor Position Sitting Semi-Fowlers Blood Pressure Location Left Arm Left Arm History Since Last Visit- (Skip if this is Patient's initial visit) Have you changed medications since your No No last visit? Any new allergies or adverse reactions No No Had a fall/change in ADL's that may No No increase risk of falls Signs or symptoms of abuse and/or No No neglect since last visit Have you been in the hospital since your No No last visit? Has dressing in place as prescribed Yes Yes Has compression in place as prescribed Yes Yes Has offloadiing in place as prescribed N/A N/A Experienced any changes in pain level or No No management Left Footwear Regular Shoe Regular Shoe Right Footwear Regular Shoe Regular Shoe Pain Scale: 0-10 Numeric Is Patient Pain Free? Yes Yes WC - Nurse 1 - General Ulcer Measurement Start: 02/01/25 11:04 Freq: Status: Active Protocol: Activity Type Activity Date Activity User E-sign Co-sign Detail Recorded Client Recorded Date Recorded By Document 02/01/25 11:04 KW [id number] 02/01/25 11:17 KW Document 02/08/25 09:52 RB [id number] 02/08/25 09:55 RB 02/01/25 02/08/25 11:04 09:52 Wound Center Nurse 1 #5 left wrist -Combined with other wound No -Current Size (cm) - Length 0.1 0.1 -Current Size (cm) - Width 0.1 0.1 -Current Size (cm) - Depth 0.1 0.1 -Total Square Cm 0.01 0.01 -Date of Last Picture (Recall this 02/01/25 field) -Photo Taken Yes -Tunneling No -Undermining/Tunneling No -Circular Undermining No -Exudate Amt None Present Medium -Exudate Type Serosanguineous -Wound Margin Distinct, Distinct, Outline Outline Attached Attached -Granulation Amt Medium (34-66%) -Granulation Quality Hermosa -Slough/Fibrin Yes -Necrosis Amt Medium (34-66%) -Necrotic Tissue Type Adherent Slough -Structure Exposed N/A -Texture (Edie-wound Skin Appearance) Assessed Assessed, Friable -Moisture (Edie-wound Skin Appearance) Assessed Assessed -Color (Edie-wound Skin Appearance) Assessed, Assessed Ecchymosis, Hemosiderin Staining -Temperature (Edie-wound Skin No Abnormality No Abnormality Appearance) (Pt Warm) (Pt Warm) -Tenderness on Palpation (Edie-wound No No Skin Appearance) -Ulcer Cleansing Rinsed/ Wound Cleanser Irrigated with Saline -Foul Odor after Cleansing No No -Anesthetic Used 5% Lidocaine 5% Lidocaine Gel Gel #4 left knee -Combined with other wound No -Current Size (cm) - Length 2.5 1.9 -Current Size (cm) - Width 2.1 2 -Current Size (cm) - Depth 0.1 0.1 -Total Square Cm 5.25 3.8 -Date of Last Picture (Recall this 02/01/25 field) -Photo Taken Yes -Tunneling No -Undermining/Tunneling No -Circular Undermining No -Exudate Amt Medium Medium -Exudate Type Serosanguineous Serosanguineous -Wound Margin Distinct, Distinct, Outline Outline Attached Attached -Granulation Amt Medium (34-66%) Medium (34-66%) -Granulation Quality Hermosa,Red Hermosa -Slough/Fibrin Yes -Necrosis Amt Medium (34-66%) Medium (34-66%) -Necrotic Tissue Type Adherent Slough Adherent Slough -Structure Exposed N/A -Texture (Edie-wound Skin Appearance) Assessed Assessed, Friable -Moisture (Edie-wound Skin Appearance) Assessed Assessed -Color (Edie-wound Skin Appearance) Assessed Assessed -Temperature (Edie-wound Skin No Abnormality No Abnormality Appearance) (Pt Warm) (Pt Warm) -Tenderness on Palpation (Edie-wound No No Skin Appearance) -Ulcer Cleansing Rinsed/ Wound Cleanser Irrigated with Saline -Foul Odor after Cleansing No No -Anesthetic Used 5% Lidocaine 5% Lidocaine Gel Gel WC - Nurse 2 - General Ulcer CM Notes Start: 02/01/25 11:04 Freq: Status: Active Protocol: Activity Type Activity Date Activity User E-sign Co-sign Detail Recorded Client Recorded Date Recorded By Document 02/01/25 11:19 [id number] 02/01/25 11:27 Document 02/08/25 10:00 [id number] 02/08/25 10:07 02/01/25 02/08/25 11:19 10:00 Wound Center Nurse 2 #5 left wrist -Time 11:19 10:03 -Correct Patient Yes Yes -Correct Side, Site, Position Yes Yes -Correct Procedure Yes Yes -Procedure Performed Yes Yes -Type of Procedure Debridement Debridement -Clinical Debridement Subcutaneous Subcutaneous -Tissue Removed Subcutaneous Subcutaneous -Post Debridement (cm) - Length 2.1 0.7 -Post Debridement (cm) - Width 2.1 0.2 -Post Debridement (cm) - Depth 0.1 0.1 -Total Square (Post) (cm) 4.41 0.14 -Area of Debridement (cm) - Length 2.1 0.7 -Area of Debridement (cm) - Width 2.1 0.2 -Total Square (Area) (cm) 4.41 0.14 -Tunneling No No -Undermining/Tunneling No No -Circular Undermining No No -Wound/Ulcer Outcome Not Healed Not Healed -Ulcer Cleansing Rinsed/ Rinsed/ Irrigated with Irrigated with Saline Saline -Foul Odor after Cleansing No No -Bioengineered Tissue No No -Bleeding Controlled with Pressure Pressure -Treatment Response Procedure Procedure Tolerated Well Tolerated Well -Offloading No No -Debridement - Subq, 1st 20sq cm No No #4 left knee -Time 11:24 10:04 -Correct Patient Yes Yes -Correct Side, Site, Position Yes Yes -Correct Procedure Yes Yes -Procedure Performed Yes Yes -Type of Procedure Debridement Debridement -Clinical Debridement Subcutaneous Subcutaneous -Tissue Removed Subcutaneous Subcutaneous -Post Debridement (cm) - Length 1.4 1.7 -Post Debridement (cm) - Width 0.4 1.9 -Post Debridement (cm) - Depth 0.1 0.1 -Total Square (Post) (cm) 0.56 3.23 -Area of Debridement (cm) - Length 1.4 1.7 -Area of Debridement (cm) - Width 0.4 1.9 -Total Square (Area) (cm) 0.56 3.23 -Tunneling No No -Undermining/Tunneling No No -Circular Undermining No No -Wound/Ulcer Outcome Not Healed Not Healed -Ulcer Cleansing Rinsed/ Rinsed/ Irrigated with Irrigated with Saline Saline -Foul Odor after Cleansing No No -Bioengineered Tissue No No -Bleeding Controlled with Pressure Pressure -Treatment Response Procedure Procedure Tolerated Well Tolerated Well -Offloading No -Debridement - Subq, 1st 20sq cm Yes Yes Pain Scale: 0-10 Numeric Is Patient Pain Free? Yes Yes - Nurse 3 - General Ulcer D/C NN Start: 02/01/25 11:04 Freq: Status: Active Protocol: Activity Type Activity Date Activity User E-sign Co-sign Detail Recorded Client Recorded Date Recorded By Document 02/01/25 11:38 WV [id number] 02/01/25 11:39 WV 02/01/25 11:38 Wound Care Center Nurse 3 #5 left wrist -Primary Dressing Applied Fibracol Plus 4x4,Silicone Border Foam 4x4 -Fibracol Plus 4x4 1 -Silicone Border Foam 4x4 1 LUE -Compression Wrap Mynor Wrap Pain Scale: 0-10 Numeric Is Patient Pain Free? Yes Additional Wound Wound debrided: Left knee Type of Debridement: Excisional debridement Anesthesia Used: 5% Lidocaine Gel Depth: Down to and including healthy tissue and in the subcutaneous layer Percentage of wound debrided: 100 Instrument Used: 5mm curette Tissue Removed: Devitalized tissue Severity: Fat Layer Exposed Amount of bleeding with debridement: Mild Bleeding Controlled with: Pressure Patient tolerated procedure: Patient tolerated procedure well Assessment/Plan Assessment/Plan (1) Laceration of left forearm: CODE(S): S51.812A - Laceration without foreign body of left forearm, initial encounter QUALIFIERS: Encounter type: initial encounter Qualified Code(s): S51.812A - Laceration without foreign body of left forearm, initial encounter (2) Laceration of knee, left: CODE(S): S81.012A - Laceration without foreign body, left knee, initial encounter QUALIFIERS: Encounter type: initial encounter Qualified Code(s): S81.012A - Laceration without foreign body, left knee, initial encounter (3) History of fall: CODE(S): Z91.81 - History of falling PLAN: Plan Debridement done as documented above, procedure was well-tolerated. Continued improvement appreciated. Continue Fibracol to both areas daily. Cover with Adaptic. Gauze/wrap to left forearm and foam dressing to knee. Change daily to twice daily depending on drainage. Elevate left lower and upper extremity when seated. Tubigrip to left lower extremity for edema management. Adequate dietary/protein intake also recommended. His questions were answered and he was advised to let us know if he had any further questions or concerns. Follow-up in a week or sooner if needed. This note was generated with [employer] dictation software. It may contain incorrect words, spelling, and punctuation that were not noted in checking the note before signing.
--- NOTE | 2025-02-08 13:58 | WC ---
PHOTO-LEFT WRIST 02/08/25
--- NOTE | 2025-02-08 14:05 | WC ---
PHOTO-LEFT KNEE 02/08/25
[2025-02-15 09:10] VITALS: BP 130/79; PULSE 94; RESP 18; TEMP 36.3
--- NOTE | 2025-02-15 09:37 | PCM.WC.PN ---
History of Present Illness Date of Service: 02/15/25 Chief Complaint: Left Forearm/Wrist and Left Knee Wound History of Wound: Mr. Rodríguez is an 80-year-old referred to the wound center by his primary care physician following a recent wound. Fell off his driveway landing on his left side with subsequent injury to his left forearm/wrist and left knee. Has been using some dressings which he had at home. Was also seen by his primary care physician and started on antibiotics. He had a head CT which was negative for bleed. No tobacco use/abuse. No history of diabetes. Stays active. Feels well otherwise, no acute concerns reported. Progress of Wound: No acute concerns at this time. Left wrist with minimal area left. Left knee with some improvement as well. Objective Data Objective Data Vital Signs: Vital Signs Temp Pulse Resp BP O2 Del Method 97.4 F L 94 18 130/79 H Room Air 02/15/25 09:10 02/15/25 09:10 02/15/25 09:10 02/15/25 09:10 02/01/25 11:04 Oxygen Delivery Method Room Air Charges/Coding Procedures Integumentary 111xxx-113xx: 10112 Angella subq tissue 20 sq cm/< Physical Exam Const alert, oriented x3 and no apparent distress General Appearance: cooperative and comfortable HEENT normocephalic, head/scalp atraumatic and hearing grossly normal bilaterally Eyes EOMs intact bilaterally General Eye: normal appearance of both eyes Neck full ROM General: normal visual inspection Resp normal respiratory effort and normal air movement Effort and Inspection: able to speak in complete sentences Cardio regular rate, regular rhythm, S1 normal heart sound and S2 normal heart sound GI soft to palpation and non-tender Skin Wounds: wounds noted size Size: See clinical note, bed granulating well, margins well approximated, no odor and surrounding erythema Neuro CN's II-XII intact bilaterally, moves all extremities and no focal motor deficits Psych mental status grossly normal, thought process normal, cooperative and affect normal Debridement Note Debridement Note Wound debrided: Left knee Type of Debridement: Excisional debridement Anesthesia Used: 5% Lidocaine Gel Depth: Down to and including healthy tissue and in the subcutaneous layer Instrument Used: 5mm curette Tissue Removed: Devitalized tissue Severity: Fat Layer Exposed Amount of bleeding with debridement: Mild Bleeding Controlled with: Pressure Patient tolerated procedure: Patient tolerated procedure well Post-Debridement Measurements and Additional Note: Post-Debridement Measurements/Treatment - Nurse 1 - General Ulcer Assessment Start: 02/01/25 11:04 Freq: Status: Active Protocol: GILLIAN Activity Type Activity Date Activity User E-sign Co-sign Detail Recorded Client Recorded Date Recorded By Document 02/01/25 11:04 KW [id number] 02/01/25 11:17 KW Document 02/08/25 09:52 RB [id number] 02/08/25 09:55 RB Edit Result 02/08/25 09:52 RB (1) [id number] 02/08/25 09:56 RB Document 02/15/25 09:10 RB [id number] 02/15/25 09:12 RB (1) Blood Pressure (90/60-120/80) 164/87 H => 120/68 Blood Pressure Mean (mm Hg) 112 => 85 02/01/25 02/08/25 02/15/25 11:04 09:52 09:10 WC - Today's Visit Information Type of service Follow-up Visit Follow-up Visit Follow-up Visit (Physician/SENIOR SYSTEMS ADMINISTRATOR (Physician/SENIOR SYSTEMS ADMINISTRATOR (Physician/SENIOR SYSTEMS ADMINISTRATOR ) ) ) Arrival Mode Ambulatory Ambulatory Ambulatory Transfer Assistance None None Patient Identification Verified (Name & Yes Yes Yes ) Patient Requires Transmission-Based No No Precautions Vital Signs Temperature (97.8 F-99.1 F) 96.5 F L 97.1 F L 97.4 F L Temperature Source Temporal Temporal Temporal Pulse Rate (60-100) 89 84 94 Pulse Location Monitor Monitor Monitor Respiratory Rate (12-18) 16 18 18 Respiratory rate source Observation Observation Observation Oxygen Delivery Method Room Air Blood Pressure (90/60-120/80) 117/68 120/68 130/79 H Blood Pressure Mean (mm Hg) 84 85 96 Source Monitor Monitor Monitor Position Sitting Semi-Fowlers Semi-Fowlers Blood Pressure Location Left Arm Left Arm Left Arm History Since Last Visit- (Skip if this is Patient's initial visit) Have you changed medications since your No No No last visit? Any new allergies or adverse reactions No No No Had a fall/change in ADL's that may No No No increase risk of falls Signs or symptoms of abuse and/or No No No neglect since last visit Have you been in the hospital since your No No No last visit? Has dressing in place as prescribed Yes Yes Yes Has compression in place as prescribed Yes Yes Yes Has offloadiing in place as prescribed N/A N/A No Experienced any changes in pain level or No No No management Left Footwear Regular Shoe Regular Shoe Regular Shoe Right Footwear Regular Shoe Regular Shoe Regular Shoe Pain Scale: 0-10 Numeric Is Patient Pain Free? Yes Yes Yes WC - Nurse 1 - General Ulcer Measurement Start: 02/01/25 11:04 Freq: Status: Active Protocol: Activity Type Activity Date Activity User E-sign Co-sign Detail Recorded Client Recorded Date Recorded By Document 02/01/25 11:04 KW [id number] 02/01/25 11:17 KW Document 02/08/25 09:52 RB [id number] 02/08/25 09:55 RB Document 02/15/25 09:10 RB [id number] 02/15/25 09:12 RB 02/01/25 02/08/25 02/15/25 11:04 09:52 09:10 Wound Center Nurse 1 #5 left wrist -Combined with other wound No No -Current Size (cm) - Length 0.1 0.1 0.1 -Current Size (cm) - Width 0.1 0.1 0.1 -Current Size (cm) - Depth 0.1 0.1 0.1 -Total Square Cm 0.01 0.01 0.01 -Date of Last Picture (Recall this 02/01/25 field) -Photo Taken Yes Yes -Epithelialization Large 67-100% -Tunneling No No -Undermining/Tunneling No No -Circular Undermining No No -Exudate Amt None Present Medium None Present -Exudate Type Serosanguineous -Wound Margin Distinct, Distinct, Distinct, Outline Outline Outline Attached Attached Attached -Granulation Amt Medium (34-66%) Large (67-100%) -Granulation Quality [place] -Slough/Fibrin Yes Yes -Necrosis Amt Medium (34-66%) Small (1-33%) -Necrotic Tissue Type Adherent Slough Adherent Slough -Structure Exposed N/A N/A -Texture (Edie-wound Skin Appearance) Assessed Assessed, Assessed, Friable Scarring -Moisture (Edie-wound Skin Appearance) Assessed Assessed Assessed -Color (Edie-wound Skin Appearance) Assessed, Assessed Assessed Ecchymosis, Hemosiderin Staining -Temperature (Edie-wound Skin No Abnormality No Abnormality No Abnormality Appearance) (Pt Warm) (Pt Warm) (Pt Warm) -Tenderness on Palpation (Edie-wound No No No Skin Appearance) -Ulcer Cleansing Rinsed/ Wound Cleanser Wound Cleanser Irrigated with Saline -Foul Odor after Cleansing No No No -Anesthetic Used 5% Lidocaine 5% Lidocaine 5% Lidocaine Gel Gel Gel #4 left knee -Combined with other wound No No -Current Size (cm) - Length 2.5 1.9 1.5 -Current Size (cm) - Width 2.1 2 1.5 -Current Size (cm) - Depth 0.1 0.1 0.1 -Total Square Cm 5.25 3.8 2.25 -Date of Last Picture (Recall this 02/01/25 field) -Photo Taken Yes Yes -Tunneling No No -Undermining/Tunneling No No -Circular Undermining No No -Exudate Amt Medium Medium Medium -Exudate Type Serosanguineous Serosanguineous Serosanguineous -Wound Margin Distinct, Distinct, Distinct, Outline Outline Outline Attached Attached Attached -Granulation Amt Medium (34-66%) Medium (34-66%) Medium (34-66%) -Granulation Quality [place],Red [place] -Slough/Fibrin Yes Yes -Necrosis Amt Medium (34-66%) Medium (34-66%) Medium (34-66%) -Necrotic Tissue Type Adherent Slough Adherent Slough Adherent Slough -Structure Exposed N/A N/A -Texture (Edie-wound Skin Appearance) Assessed Assessed, Assessed, Friable Scarring -Moisture (Edie-wound Skin Appearance) Assessed Assessed Assessed -Color (Edie-wound Skin Appearance) Assessed Assessed Assessed -Temperature (Edie-wound Skin No Abnormality No Abnormality No Abnormality Appearance) (Pt Warm) (Pt Warm) (Pt Warm) -Tenderness on Palpation (Edie-wound No No No Skin Appearance) -Ulcer Cleansing Rinsed/ Wound Cleanser Wound Cleanser Irrigated with Saline -Foul Odor after Cleansing No No No -Anesthetic Used 5% Lidocaine 5% Lidocaine 5% Lidocaine Gel Gel Gel WC - Nurse 2 - General Ulcer CM Notes Start: 02/01/25 11:04 Freq: Status: Active Protocol: Activity Type Activity Date Activity User E-sign Co-sign Detail Recorded Client Recorded Date Recorded By Document 02/01/25 11:19 [id number] 02/01/25 11:27 GM Document 02/08/25 10:00 [id number] 02/08/25 10:07 Document 02/15/25 09:28 [id number] 02/15/25 09:31 02/01/25 02/08/25 02/15/25 11:19 10:00 09:28 Wound Center Nurse 2 #5 left wrist -Time 11:19 10:03 09:29 -Correct Patient Yes Yes Yes -Correct Side, Site, Position Yes Yes Yes -Correct Procedure Yes Yes Yes -Procedure Performed Yes Yes Yes -Type of Procedure Debridement Debridement Debridement -Clinical Debridement Subcutaneous Subcutaneous Subcutaneous -Tissue Removed Subcutaneous Subcutaneous Subcutaneous -Post Debridement (cm) - Length 2.1 0.7 0.1 -Post Debridement (cm) - Width 2.1 0.2 0.1 -Post Debridement (cm) - Depth 0.1 0.1 0.1 -Total Square (Post) (cm) 4.41 0.14 0.01 -Area of Debridement (cm) - Length 2.1 0.7 0.1 -Area of Debridement (cm) - Width 2.1 0.2 0.1 -Total Square (Area) (cm) 4.41 0.14 0.01 -Tunneling No No No -Undermining/Tunneling No No No -Circular Undermining No No No -Wound/Ulcer Outcome Not Healed Not Healed Not Healed -Ulcer Cleansing Rinsed/ Rinsed/ Rinsed/ Irrigated with Irrigated with Irrigated with Saline Saline Saline -Foul Odor after Cleansing No No No -Bioengineered Tissue No No No -Bleeding Controlled with Pressure Pressure Pressure -Treatment Response Procedure Procedure Procedure Tolerated Well Tolerated Well Tolerated Well -Offloading No No -Debridement - Subq, 1st 20sq cm No No No #4 left knee -Time 11:24 10:04 09:30 -Correct Patient Yes Yes Yes -Correct Side, Site, Position Yes Yes Yes -Correct Procedure Yes Yes Yes -Procedure Performed Yes Yes Yes -Type of Procedure Debridement Debridement Debridement -Clinical Debridement Subcutaneous Subcutaneous Subcutaneous -Tissue Removed Subcutaneous Subcutaneous Subcutaneous -Post Debridement (cm) - Length 1.4 1.7 1.0 -Post Debridement (cm) - Width 0.4 1.9 0.8 -Post Debridement (cm) - Depth 0.1 0.1 0.1 -Total Square (Post) (cm) 0.56 3.23 0.80 -Area of Debridement (cm) - Length 1.4 1.7 1.0 -Area of Debridement (cm) - Width 0.4 1.9 0.8 -Total Square (Area) (cm) 0.56 3.23 0.80 -Tunneling No No No -Undermining/Tunneling No No No -Circular Undermining No No No -Wound/Ulcer Outcome Not Healed Not Healed Not Healed -Ulcer Cleansing Rinsed/ Rinsed/ Rinsed/ Irrigated with Irrigated with Irrigated with Saline Saline Saline -Foul Odor after Cleansing No No No -Bioengineered Tissue No No No -Bleeding Controlled with Pressure Pressure Pressure -Treatment Response Procedure Procedure Procedure Tolerated Well Tolerated Well Tolerated Well -Offloading No No -Debridement - Subq, 1st 20sq cm Yes Yes Yes Pain Scale: 0-10 Numeric Is Patient Pain Free? Yes Yes Yes - Nurse 3 - General Ulcer D/C NN Start: 02/01/25 11:04 Freq: Status: Active Protocol: Activity Type Activity Date Activity User E-sign Co-sign Detail Recorded Client Recorded Date Recorded By Document 02/01/25 11:38 MT [id number] 02/01/25 11:39 MT Document 02/08/25 10:38 DL [id number] 02/08/25 10:40 DL 02/01/25 02/08/25 11:38 10:38 Wound Care Center Nurse 3 #5 left wrist -Ulcer Cleansing Rinsed/ Irrigated with Saline -Foul Odor after Cleansing No -Primary Dressing Applied Fibracol Plus Fibracol Plus 4x4,Silicone 4x4,NonAdherent Border Foam 4x4 Contact Layer -Primary Dressing Covered/Secured with Dry Gauze & Roll Gauze, Secured with Tape -Fibracol Plus 4x4 1 1 -Silicone Border Foam 4x4 1 #4 left knee -Ulcer Cleansing Rinsed/ Irrigated with Saline -Foul Odor after Cleansing No -Primary Dressing Applied NonAdherent Contact Layer, Silicone Border Foam 4x4 -Other Dressing Fibracol -Silicone Border Foam 4x4 1 LUE -Compression Wrap Mynor Wrap -Tubular Bandage Single Layer -Size of Tubigrip Used Size E -Size E ($) 1 Treatment Response Procedure Tolerated Well Pain Scale: 0-10 Numeric Is Patient Pain Free? Yes Yes - Visit Discharge Discharge Condition Stable Ambulatory Status Ambulatory Transportation Private Auto Assessment/Plan Assessment/Plan (1) Laceration of left forearm: CODE(S): S51.812A - Laceration without foreign body of left forearm, initial encounter QUALIFIERS: Encounter type: initial encounter Qualified Code(s): S51.812A - Laceration without foreign body of left forearm, initial encounter (2) Laceration of knee, left: CODE(S): S81.012A - Laceration without foreign body, left knee, initial encounter QUALIFIERS: Encounter type: initial encounter Qualified Code(s): S81.012A - Laceration without foreign body, left knee, initial encounter (3) History of fall: CODE(S): Z91.81 - History of falling PLAN: Plan Debridement done as documented above, procedure was well-tolerated. Continued improvement appreciated. Left forearm/wrist essentially healed, very minimal area left. Left knee with some improvement as well. Continue Fibracol moistened lightly to left knee. Cover with Adaptic and gauze. Adaptic and gauze to the left forearm/wrist. Gauze/wrap to left forearm and foam dressing to knee. Change daily to twice daily depending on drainage. Elevate left lower and upper extremity when seated. Tubigrip to left lower extremity for edema management. Adequate dietary/protein intake also recommended. His questions were answered and he was advised to let us know if he had any further questions or concerns. Follow-up in a week or sooner if needed. This note was generated with [employer] dictation software. It may contain incorrect words, spelling, and punctuation that were not noted in checking the note before signing.
--- NOTE | 2025-02-16 09:38 | WC ---
PHOTO-LEFT KNEE 02/15/25
[2025-02-22 09:02] VITALS: BP 154/90; PULSE 84; RESP 18; TEMP 36.4; O2SAT 96
--- NOTE | 2025-02-22 09:31 | PCM.WC.PN ---
History of Present Illness Date of Service: 02/22/25 Chief Complaint: Left Forearm/Wrist and Left Knee Wound History of Wound: Mr. Rodríguez is an 80-year-old referred to the wound center by his primary care physician following a recent wound. Fell off his driveway landing on his left side with subsequent injury to his left forearm/wrist and left knee. Has been using some dressings which he had at home. Was also seen by his primary care physician and started on antibiotics. He had a head CT which was negative for bleed. No tobacco use/abuse. No history of diabetes. Stays active. Feels well otherwise, no acute concerns reported. Progress of Wound: Left knee is healed. Left wrist remains healed. No new concerns reported at this time. Objective Data Objective Data Vital Signs: Vital Signs Temp Pulse Resp BP Pulse Ox O2 Del Method 97.5 F L 84 18 154/90 H 96 Room Air 02/22/25 09:02 02/22/25 09:02 02/22/25 09:02 02/22/25 09:02 02/22/25 09:02 02/22/25 09:02 Oxygen Delivery Method Room Air Charges/Coding Visit Charges Office Visits / Consults: [id number] OV L3 Est 20min Physical Exam Const alert, oriented x3 and no apparent distress General Appearance: cooperative and comfortable HEENT normocephalic, head/scalp atraumatic and hearing grossly normal bilaterally Eyes EOMs intact bilaterally General Eye: normal appearance of both eyes Neck full ROM General: normal visual inspection Resp normal respiratory effort and normal air movement Effort and Inspection: able to speak in complete sentences Cardio regular rate, regular rhythm, S1 normal heart sound and S2 normal heart sound GI soft to palpation and non-tender Neuro CN's II-XII intact bilaterally, moves all extremities and no focal motor deficits Psych mental status grossly normal, thought process normal, cooperative and affect normal Debridement Note Debridement Note Post-Debridement Measurements and Additional Note: Post-Debridement Measurements/Treatment WC - Nurse 1 - General Ulcer Assessment Start: 02/01/25 11:04 Freq: Status: Active Protocol: GILLIAN Activity Type Activity Date Activity User E-sign Co-sign Detail Recorded Client Recorded Date Recorded By Document 02/01/25 11:04 KW [id number] 02/01/25 11:17 KW Document 02/08/25 09:52 RB [id number] 02/08/25 09:55 RB Edit Result 02/08/25 09:52 RB (1) [id number] 02/08/25 09:56 RB Document 02/15/25 09:10 RB [id number] 02/15/25 09:12 RB Document 02/22/25 09:02 JM [id number] 02/22/25 09:16 JM (1) Blood Pressure (90/60-120/80) 164/87 H => 120/68 Blood Pressure Mean (mm Hg) 112 => 85 02/01/25 02/08/25 02/15/25 11:04 09:52 09:10 - Today's Visit Information Type of service Follow-up Visit Follow-up Visit Follow-up Visit (Physician/MEASUREMENT AND SENSING TECHNICIAN (Physician/MEASUREMENT AND SENSING TECHNICIAN (Physician/MEASUREMENT AND SENSING TECHNICIAN ) ) ) Arrival Mode Ambulatory Ambulatory Ambulatory Transfer Assistance None None Patient Identification Verified (Name & Yes Yes Yes ) Patient Requires Transmission-Based No No Precautions Safety Precautions Vital Signs Temperature (97.8 F-99.1 F) 96.5 F L 97.1 F L 97.4 F L Temperature Source Temporal Temporal Temporal Pulse Rate (60-100) 89 84 94 Pulse Location Monitor Monitor Monitor Respiratory Rate (12-18) 16 18 18 Respiratory rate source Observation Observation Observation Pulse Oximetry Oxygen Delivery Method Room Air Blood Pressure (90/60-120/80) 117/68 120/68 130/79 H Blood Pressure Mean (mm Hg) 84 85 96 Source Monitor Monitor Monitor Position Sitting Semi-Fowlers Semi-Fowlers Blood Pressure Location Left Arm Left Arm Left Arm History Since Last Visit- (Skip if this is Patient's initial visit) Have you changed medications since your No No No last visit? Any new allergies or adverse reactions No No No Had a fall/change in ADL's that may No No No increase risk of falls Signs or symptoms of abuse and/or No No No neglect since last visit Have you been in the hospital since your No No No last visit? Has dressing in place as prescribed Yes Yes Yes Has compression in place as prescribed Yes Yes Yes Has offloadiing in place as prescribed N/A N/A No Experienced any changes in pain level or No No No management Left Footwear Regular Shoe Regular Shoe Regular Shoe Right Footwear Regular Shoe Regular Shoe Regular Shoe Pain Scale: 0-10 Numeric Is Patient Pain Free? Yes Yes Yes 02/22/25 09:02 - Today's Visit Information Type of service Follow-up Visit (Physician/MEASUREMENT AND SENSING TECHNICIAN ) Arrival Mode Ambulatory Transfer Assistance None Patient Identification Verified (Name & Yes ) Patient Requires Transmission-Based No Precautions Safety Precautions Fall Prevention Vital Signs Temperature (97.8 F-99.1 F) 97.5 F L Temperature Source Temporal Pulse Rate (60-100) 84 Pulse Location Monitor Respiratory Rate (12-18) 18 Respiratory rate source Observation Pulse Oximetry 96 Oxygen Delivery Method Room Air Blood Pressure (90/60-120/80) 154/90 H Blood Pressure Mean (mm Hg) 111 Source Monitor Position Sitting Blood Pressure Location Right Arm History Since Last Visit- (Skip if this is Patient's initial visit) Have you changed medications since your No last visit? Any new allergies or adverse reactions No Had a fall/change in ADL's that may No increase risk of falls Signs or symptoms of abuse and/or No neglect since last visit Have you been in the hospital since your No last visit? Has dressing in place as prescribed Yes Has compression in place as prescribed Yes Has offloadiing in place as prescribed N/A Experienced any changes in pain level or No management Left Footwear Regular Shoe Right Footwear Regular Shoe Pain Scale: 0-10 Numeric Is Patient Pain Free? Yes - Nurse 1 - General Ulcer Measurement Start: 02/01/25 11:04 Freq: Status: Active Protocol: Activity Type Activity Date Activity User E-sign Co-sign Detail Recorded Client Recorded Date Recorded By Document 02/01/25 11:04 KW [id number] 02/01/25 11:17 KW Document 02/08/25 09:52 RB [id number] 02/08/25 09:55 RB Document 02/15/25 09:10 RB [id number] 02/15/25 09:12 RB Document 02/22/25 09:02 MORENITA [id number] 02/22/25 09:16 MORENITA 02/01/25 02/08/25 02/15/25 11:04 09:52 09:10 Wound Center Nurse 1 #5 left wrist -Combined with other wound No No -Current Size (cm) - Length 0.1 0.1 0.1 -Current Size (cm) - Width 0.1 0.1 0.1 -Current Size (cm) - Depth 0.1 0.1 0.1 -Total Square Cm 0.01 0.01 0.01 -Date of Last Picture (Recall this 02/01/25 field) -Photo Taken Yes Yes -Epithelialization Large 67-100% -Tunneling No No -Undermining/Tunneling No No -Circular Undermining No No -Exudate Amt None Present Medium None Present -Exudate Type Serosanguineous -Wound Margin Distinct, Distinct, Distinct, Outline Outline Outline Attached Attached Attached -Granulation Amt Medium (34-66%) Large (67-100%) -Granulation Quality [place] -Slough/Fibrin Yes Yes -Necrosis Amt Medium (34-66%) Small (1-33%) -Necrotic Tissue Type Adherent Slough Adherent Slough -Structure Exposed N/A N/A -Texture (Edie-wound Skin Appearance) Assessed Assessed, Assessed, Friable Scarring -Moisture (Edie-wound Skin Appearance) Assessed Assessed Assessed -Color (Edie-wound Skin Appearance) Assessed, Assessed Assessed Ecchymosis, Hemosiderin Staining -Temperature (Edie-wound Skin No Abnormality No Abnormality No Abnormality Appearance) (Pt Warm) (Pt Warm) (Pt Warm) -Tenderness on Palpation (Edie-wound No No No Skin Appearance) -Ulcer Cleansing Rinsed/ Wound Cleanser Wound Cleanser Irrigated with Saline -Foul Odor after Cleansing No No No -Anesthetic Used 5% Lidocaine 5% Lidocaine 5% Lidocaine Gel Gel Gel -Wound Comment(s) #4 left knee -Combined with other wound No No -Current Size (cm) - Length 2.5 1.9 1.5 -Current Size (cm) - Width 2.1 2 1.5 -Current Size (cm) - Depth 0.1 0.1 0.1 -Total Square Cm 5.25 3.8 2.25 -Date of Last Picture (Recall this 02/01/25 field) -Photo Taken Yes Yes -Tunneling No No -Undermining/Tunneling No No -Circular Undermining No No -Exudate Amt Medium Medium Medium -Exudate Type Serosanguineous Serosanguineous Serosanguineous -Wound Margin Distinct, Distinct, Distinct, Outline Outline Outline Attached Attached Attached -Granulation Amt Medium (34-66%) Medium (34-66%) Medium (34-66%) -Granulation Quality [place] -Slough/Fibrin Yes Yes -Necrosis Amt Medium (34-66%) Medium (34-66%) Medium (34-66%) -Necrotic Tissue Type Adherent Slough Adherent Slough Adherent Slough -Structure Exposed N/A N/A -Texture (Edie-wound Skin Appearance) Assessed Assessed, Assessed, Friable Scarring -Moisture (Edie-wound Skin Appearance) Assessed Assessed Assessed -Color (Edie-wound Skin Appearance) Assessed Assessed Assessed -Temperature (Edie-wound Skin No Abnormality No Abnormality No Abnormality Appearance) (Pt Warm) (Pt Warm) (Pt Warm) -Tenderness on Palpation (Edie-wound No No No Skin Appearance) -Ulcer Cleansing Rinsed/ Wound Cleanser Wound Cleanser Irrigated with Saline -Foul Odor after Cleansing No No No -Anesthetic Used 5% Lidocaine 5% Lidocaine 5% Lidocaine Gel Gel Gel Left Calf (cm) Left Ankle (cm) 02/22/25 09:02 Wound Center Nurse 1 #5 left wrist -Combined with other wound -Current Size (cm) - Length 0.1 -Current Size (cm) - Width 0.1 -Current Size (cm) - Depth 0.1 -Total Square Cm 0.01 -Date of Last Picture (Recall this 02/22/25 field) -Photo Taken Yes -Epithelialization -Tunneling No -Undermining/Tunneling No -Circular Undermining No -Exudate Amt None Present -Exudate Type -Wound Margin Flat & Intact -Granulation Amt None Present (0 %) -Granulation Quality N/A -Slough/Fibrin No -Necrosis Amt None Present (0 %) -Necrotic Tissue Type -Structure Exposed N/A -Texture (Edie-wound Skin Appearance) No Abnormality, Assessed -Moisture (Edie-wound Skin Appearance) No Abnormality, Assessed -Color (Edie-wound Skin Appearance) No Abnormality, Assessed -Temperature (Edie-wound Skin No Abnormality Appearance) (Pt Warm) -Tenderness on Palpation (Edie-wound No Skin Appearance) -Ulcer Cleansing Not Cleansed -Foul Odor after Cleansing -Anesthetic Used -Wound Comment(s) Patient states he was cleared for this wound after the last visit. No openings present, no drsg in place. #4 left knee -Combined with other wound -Current Size (cm) - Length 1.5 -Current Size (cm) - Width 1.5 -Current Size (cm) - Depth 0.1 -Total Square Cm 2.25 -Date of Last Picture (Recall this 02/22/25 field) -Photo Taken Yes -Tunneling No -Undermining/Tunneling No -Circular Undermining No -Exudate Amt Small -Exudate Type Serosanguineous -Wound Margin Distinct, Outline Attached -Granulation Amt Medium (34-66%) -Granulation Quality Red -Slough/Fibrin Yes -Necrosis Amt Small (1-33%) -Necrotic Tissue Type Adherent Slough -Structure Exposed None/Limited to Skin Breakdown -Texture (Edie-wound Skin Appearance) No Abnormality, Assessed -Moisture (Edie-wound Skin Appearance) No Abnormality, Assessed -Color (Edie-wound Skin Appearance) Ecchymosis -Temperature (Edie-wound Skin No Abnormality Appearance) (Pt Warm) -Tenderness on Palpation (Edie-wound No Skin Appearance) -Ulcer Cleansing Rinsed/ Irrigated with Saline -Foul Odor after Cleansing No -Anesthetic Used 5% Lidocaine Gel Left Calf (cm) 395 Left Ankle (cm) 250 WC - Nurse 2 - General Ulcer CM Notes Start: 02/01/25 11:04 Freq: Status: Active Protocol: Activity Type Activity Date Activity User E-sign Co-sign Detail Recorded Client Recorded Date Recorded By Document 02/01/25 11:19 [id number] 02/01/25 11:27 Document 02/08/25 10:00 [id number] 02/08/25 10:07 Document 02/15/25 09:28 [id number] 02/15/25 09:31 02/01/25 02/08/25 02/15/25 11:19 10:00 09:28 Wound Center Nurse 2 #5 left wrist -Time 11:19 10:03 09:29 -Correct Patient Yes Yes Yes -Correct Side, Site, Position Yes Yes Yes -Correct Procedure Yes Yes Yes -Procedure Performed Yes Yes Yes -Type of Procedure Debridement Debridement Debridement -Clinical Debridement Subcutaneous Subcutaneous Subcutaneous -Tissue Removed Subcutaneous Subcutaneous Subcutaneous -Post Debridement (cm) - Length 2.1 0.7 0.1 -Post Debridement (cm) - Width 2.1 0.2 0.1 -Post Debridement (cm) - Depth 0.1 0.1 0.1 -Total Square (Post) (cm) 4.41 0.14 0.01 -Area of Debridement (cm) - Length 2.1 0.7 0.1 -Area of Debridement (cm) - Width 2.1 0.2 0.1 -Total Square (Area) (cm) 4.41 0.14 0.01 -Tunneling No No No -Undermining/Tunneling No No No -Circular Undermining No No No -Wound/Ulcer Outcome Not Healed Not Healed Not Healed -Ulcer Cleansing Rinsed/ Rinsed/ Rinsed/ Irrigated with Irrigated with Irrigated with Saline Saline Saline -Foul Odor after Cleansing No No No -Bioengineered Tissue No No No -Bleeding Controlled with Pressure Pressure Pressure -Treatment Response Procedure Procedure Procedure Tolerated Well Tolerated Well Tolerated Well -Offloading No No -Debridement - Subq, 1st 20sq cm No No No #4 left knee -Time 11:24 10:04 09:30 -Correct Patient Yes Yes Yes -Correct Side, Site, Position Yes Yes Yes -Correct Procedure Yes Yes Yes -Procedure Performed Yes Yes Yes -Type of Procedure Debridement Debridement Debridement -Clinical Debridement Subcutaneous Subcutaneous Subcutaneous -Tissue Removed Subcutaneous Subcutaneous Subcutaneous -Post Debridement (cm) - Length 1.4 1.7 1.0 -Post Debridement (cm) - Width 0.4 1.9 0.8 -Post Debridement (cm) - Depth 0.1 0.1 0.1 -Total Square (Post) (cm) 0.56 3.23 0.80 -Area of Debridement (cm) - Length 1.4 1.7 1.0 -Area of Debridement (cm) - Width 0.4 1.9 0.8 -Total Square (Area) (cm) 0.56 3.23 0.80 -Tunneling No No No -Undermining/Tunneling No No No -Circular Undermining No No No -Wound/Ulcer Outcome Not Healed Not Healed Not Healed -Ulcer Cleansing Rinsed/ Rinsed/ Rinsed/ Irrigated with Irrigated with Irrigated with Saline Saline Saline -Foul Odor after Cleansing No No No -Bioengineered Tissue No No No -Bleeding Controlled with Pressure Pressure Pressure -Treatment Response Procedure Procedure Procedure Tolerated Well Tolerated Well Tolerated Well -Offloading No No -Debridement - Subq, 1st 20sq cm Yes Yes Yes Pain Scale: 0-10 Numeric Is Patient Pain Free? Yes Yes Yes WC - Nurse 3 - General Ulcer D/C NN Start: 02/01/25 11:04 Freq: Status: Active Protocol: Activity Type Activity Date Activity User E-sign Co-sign Detail Recorded Client Recorded Date Recorded By Document 02/01/25 11:38 MT [id number] 02/01/25 11:39 MT Document 02/08/25 10:38 DL [id number] 02/08/25 10:40 DL Document 02/15/25 09:44 [id number] 02/15/25 09:45 02/01/25 02/08/25 02/15/25 11:38 10:38 09:44 Wound Care Center Nurse 3 #5 left wrist -Ulcer Cleansing Rinsed/ Not Cleansed Irrigated with Saline -Foul Odor after Cleansing No No -Primary Dressing Applied Fibracol Plus Fibracol Plus NonAdherent 4x4,Silicone 4x4,NonAdherent Contact Layer Border Foam 4x4 Contact Layer -Primary Dressing Covered/Secured with Dry Gauze & Dry Gauze & Roll Gauze, Roll Gauze, Secured with Secured with Tape Tape -Fibracol Plus 4x4 1 1 -Silicone Border Foam 4x4 1 #4 left knee -Ulcer Cleansing Rinsed/ Not Cleansed Irrigated with Saline -Foul Odor after Cleansing No No -Primary Dressing Applied NonAdherent Fibracol Plus Contact Layer, 4x4,Silicone Silicone Border Border Foam 4x4 Foam 4x4 -Other Dressing Fibracol -Fibracol Plus 4x4 1 -Silicone Border Foam 4x4 1 1 LUE -Compression Wrap [place]yn[place] Wrap -Tubular Bandage Single Layer -Size of Tubigrip Used Size E -Size E ($) 1 Treatment Response Procedure Tolerated Well Pain Scale: 0-10 Numeric Is Patient Pain Free? Yes Yes Yes WC - Visit Discharge Discharge Condition Stable Stable Ambulatory Status Ambulatory Ambulatory Transportation Private Auto Private Auto Assessment/Plan Assessment/Plan (1) Laceration of left forearm: CODE(S): S51.812A - Laceration without foreign body of left forearm, initial encounter QUALIFIERS: Encounter type: initial encounter Qualified Code(s): S51.812A - Laceration without foreign body of left forearm, initial encounter PLAN: Healed (2) Laceration of knee, left: CODE(S): S81.012A - Laceration without foreign body, left knee, initial encounter QUALIFIERS: Encounter type: initial encounter Qualified Code(s): S81.012A - Laceration without foreign body, left knee, initial encounter PLAN: healed (3) History of fall: CODE(S): Z91.81 - History of falling PLAN: Plan No debridement completed today, healed. Moisturize left knee adequately using Vaseline or Aquaphor after shower. Cover area with Adaptic and gauze daily for 2 weeks and then stop. Continue Tubigrip to left lower extremity for edema management. Adequate dietary/protein intake also recommended. His questions were answered and he was advised to let us know if he had any further questions or concerns. Discharged from the wound center. This note was generated with Ver[employer] dictation software. It may contain incorrect words, spelling, and punctuation that were not noted in checking the note before signing.
== END 2025-02-22 09:55 | disposition home or self-care (01) ==
LOC: WC 09:00
PROVIDERS: PCP Family Medicine Geriatric Medicine; Referring Provider Family Medicine Geriatric Medicine; Visit Provider Internal Medicine
DX: S51.812A Laceration without foreign body of left forearm, initial encounter (principal); W19.XXXA Unspecified fall, initial encounter; S61.512A Laceration without foreign body of left wrist, initial encounter; S81.012A Laceration without foreign body, left knee, initial encounter; Z91.81 History of falling
CPT/HCPCS: 11042; 99212; G0463

== ENCOUNTER → 2025-03-19 | Outpatient (CLI) | payer MEDICARE, SELFPAY ==
[2024-09-15 08:14] VITALS: BMI 29.8
--- NOTE | 2025-03-19 09:25 | US_ITS ---
PROCEDURE: ABDOMEN COMPLETE 03/19/2025 REASON FOR EXAM: THROMBOCYTOPENIA TECHNIQUE: Procedure Code: USABDC Modality: US Procedure: ABDOMEN COMPLETE COMPARISON: None FINDINGS: Liver: Grossly normal size and echotexture. Gallbladder: No stones, sludge, wall thickening or tenderness. Common bile duct: Normal measuring 3.8 mm . Pancreas: Obscured by bowel gas. Kidneys: The right kidney measures 10.5 cm 5 cm 5.9 cm. The left kidney measures 9 cm x 4.3 cm 5.5 cm. Minimal cortical thinning of the left kidney measuring 0.8 cm. Spleen: Not enlarged. It measures 11.5 cm 5.1 cm 6.6 cm. Scattered calcified granulomas are seen. . Aorta: Visualized abdominal aorta is of normal size. IVC: Visualized inferior vena cava is unremarkable. Peritoneal Findings: No ascites identified. US/Abdomen Complete IMPRESSION: The pancreas was not visualized due to overlying bowel gas. Mild cortical thinning of the left kidney. Reading Location: [place] [id number]
--- NOTE | 2025-03-19 09:25 | US_ITS ---
PROCEDURE: ABDOMEN COMPLETE 03/19/2025 REASON FOR EXAM: THROMBOCYTOPENIA TECHNIQUE: Procedure Code: USABDC Modality: US Procedure: ABDOMEN COMPLETE COMPARISON: None FINDINGS: Liver: Grossly normal size and echotexture. Gallbladder: No stones, sludge, wall thickening or tenderness. Common bile duct: Normal measuring 3.8 mm . Pancreas: Obscured by bowel gas. Kidneys: The right kidney measures 10.5 cm 5 cm 5.9 cm. The left kidney measures 9 cm x 4.3 cm 5.5 cm. Minimal cortical thinning of the left kidney measuring 0.8 cm. Spleen: Not enlarged. It measures 11.5 cm 5.1 cm 6.6 cm. Scattered calcified granulomas are seen. . Aorta: Visualized abdominal aorta is of normal size. IVC: Visualized inferior vena cava is unremarkable. Peritoneal Findings: No ascites identified. US/Abdomen Complete IMPRESSION: The pancreas was not visualized due to overlying bowel gas. Mild cortical thinning of the left kidney. Reading Location: [place] [address]
[2025-03-19 09:40] LABS: Hematocrit 42.5 % (40-54); Hemoglobin 14.7 g/dL (13.0-16.5); Immature Granulocytes Count 0.010 X10^3/uL (0.0-0.0); Mean Corp Hgb Conc 34.6 g/dL (32-36); Mean Corpuscular Volume 92.4 fL (80-94); Mean Platelet Vol. 9.5 fl (6.2-12.0); NRBC Flagged by Analyzer 0 % (0-5); Platelet Count 104 K/mm3 (150-450); RBC Distribution Width CV 13.3 % (11.6-14.6); RBC Distribution Width SD 45.0 fl (35.1-43.9); Red Blood Count 4.60 M/mm3 (4.6-6.2); White Blood Count 5.1 K/mm3 (4.4-11.0)
[2025-03-19 10:18] LABS: AST(SGOT) 25 U/L (<=37); Alanine Aminotransfer ALT/SGPT 24 U/L (<=46); Albumin, Serum 4.3 g/dL (3.4-4.8); Alkaline Phosphatase 91 U/L (40-129); Anion Gap 11 (5-15); BUN 21 mg/dL (4-19); BUN/Creat Ratio 17.0 RATIO (10-20); Calcium,Total 8.7 mg/dL (7.6-11.0); Carbon Dioxide 22.3 mmol/L (21.0-32.0); Chloride 109 mmol/L (98-108); Ferritin 445 ng/mL (37-417); Globulin 2.0 g/dL (2.2-4.2); Glucose 98 mg/dL (70-99); Iron 204 ug/dL (65-175); Iron Binding Capacity,Total 251 ug/dL (250-450); Iron Binding Capacity,Unsat 47 ug/dL (228-428); LDH 204 U/L (87-241); Potassium 4.4 mmol/L (3.3-5.1)
[2025-03-22 10:02] LABS: Vitamin D,25 Hydroxy 23.6 ng/mL (30-100)
== END | disposition home or self-care (01) ==
PROVIDERS: PCP Family Medicine Geriatric Medicine; Referring Provider Internal Medicine Medical Oncology; Visit Provider Internal Medicine Medical Oncology
DX: E03.9 Hypothyroidism, unspecified (principal); D69.6 Thrombocytopenia, unspecified; E55.9 Vitamin D deficiency, unspecified
CPT/HCPCS: 36415; 76700; 80053; 82306; 82728; 83540; 83550; 83615; 84443; 85025

== ENCOUNTER → 2025-04-16 | Outpatient (CLI) | payer MEDICARE, SELFPAY ==
[2024-09-15 08:14] VITALS: BMI 29.8
--- NOTE | 2025-04-16 09:38 | CT_ITS ---
PROCEDURE: CT CHEST, ABD, PEL W/CONTRAST 04/16/2025 REASON FOR EXAM: LYMPHOMA-IV ONLY Follow-up examination. History of small lymphocytic lymphoma. TECHNIQUE: Chest, abdomen and pelvis CT with intravenous contrast. Coronal and Sagittal reconstruction series were provided. One or more dose reduction techniques were used (e.g., Automated exposure control, adjustment of the mA and/or kV according to patient size, use of iterative reconstruction technique. PATIENT PREPARATION: Per protocol ORAL CONTRAST TYPE: None. CONTRAST: Isovue-300 VOLUME: 100mL RADIATION DOSE SUMMARY: CTDlvol: 17.4 mGy DLP: 1820.14 mGycm COMPARISON: February 28, 2024. FINDINGS: CT CHEST: Hardware: None Lymph nodes: No suspicious adenopathy is seen. Heart and Vasculature: The heart is nonenlarged. Coronary artery calcification. The root of the ascending thoracic aorta measures upper limits of normal. Lungs and Airways: There is elevation of the right hemidiaphragm. Mild scarring at the lung bases. No pulmonary mass lesion or consolidation is seen. Pleura: No pleural effusion. Bones: Degenerative changes of the thoracic spine. CT ABDOMEN/PELVIS: Liver: Diffuse fatty infiltration. Gallbladder: Unremarkable Spleen: Scattered calcified granulomas. Pancreas: Diffuse fatty atrophy. Adrenals: Unremarkable Kidneys: Normal renal sizes. No hydronephrosis. Bladder: Unremarkable Central prostatic calcifications. Bowel: Moderate amount of fecal material is seen in the left hemicolon. Appendix: Unremarkable Lymph nodes: Unremarkable. Vasculature: Mild diffuse atherosclerotic calcifications are noted. Peritoneum / Retroperitoneum: Unremarkable Bones: Degenerative changes of the spine. CT/CT Chest, Abd, Pel w/Contrast IMPRESSION: Mild degree of scarring at the lung bases. No abnormal lymphadenopathy is seen. Fatty infiltration of the liver. Reading Location: [id number]
== END | disposition home or self-care (01) ==
LOC: CT 09:37
PROVIDERS: PCP Family Medicine Geriatric Medicine; Referring Provider Internal Medicine Medical Oncology; Visit Provider Internal Medicine Medical Oncology
DX: C83.00 Small cell B-cell lymphoma, unspecified site (principal)
CPT/HCPCS: 71260; 74177; Q9967